=== PATIENT | male | born 1945 | race Caucasian/White ===

== ENCOUNTER 2016-05-09 10:57 | Inpatient (IN) | payer MEDICARE ==
[~2016-05-09] VITALS: Ht 175.3 cm; Wt 85.1 kg
[~2016-05-09 10:57] MED LIST: /ADVA50050 INH; /ESOM40CA OR; /QUIN10TA OR; /TAMS4CA OR; /TIOT18INH INH; ACCU1TAB PO; ACCU1TAB2 PO; ACET-654 PO; ADVA230A INH; ASPI81CH PO; ATEN25TA OR; ATEN25TA PO; ATOR1TAB18 PO; CELE1CAP7 PO; CHAN1PAK11 PO; CIPR25SS OR; CIPR500T19 OR; COUM1TAB14 PO; COUM1TAB19 PO; DIAZ2TAB PO; EXCETAB81 PO; FLAG500T OR; FLOM5CAP PO; FURO40TA2 PO; LEVA750T PO; LOVE0.6I2 SC; NAPR375T OR; NEXI40CA PO; NICO1DIS2 TD; NICO21DI4 TD; NITR0.4S SL; NITR4TASL SL; OMNASPR2; PRED10TA PO; PRED20TA PO; PRED20TAB PO; PROA1AER INH; QUIN20TA7 PO; RANI300T PO; SALI0.653; SPIR1CAP INH; SPIR25TA2 PO; SPIR50TA2 PO; TAMS0.4C2 PO; TORS20TA2 PO; TRAM50TA2 PO; TUMS500C PO; TYLE325T5 PO; VENTAER IN; VENTAER INH; VITA100037 PO; VOLT1GEL24 TD; WARF-20 PO; WARF-60 PO; ZANT300T PO; celebrex PO
--- NOTE | 2016-05-09 12:15 | REP ---
SINGLE VIEW CHEST: AP portable view of the chest is performed and compared to a prior study of 02/01/2016. Diffuse interstitial fibrosis is stable. No definite superimposed acute infiltrate is seen. Heart is normal in size. There is some calcification and ectasia of the thoracic aorta. Pacemaker is unchanged. IMPRESSION: Chronic changes. No definite superimposed acute infiltrate. Signed by David Jameson MD 05/09/2016 05:21 P
[2016-05-09] MEDS ORDERED: IPRATROPIUM 0.5MG/ALBUTEROL 2.5MG INH SOL UD 3ML (DUONEB)(J7620) As Ordered ONE (12:28)
[2016-05-09] MEDS ORDERED: methylPREDNISolone INJ 125 MG/2 ML VIAL (J2930) As Ordered ONE (12:32)
[2016-05-09 12:41] LABS: BASO % 0.4 % (0.0-1.0); EOS # 0.1 K/mm3 (0.0-0.50); EOS % 1.1 % (0.0-3.0); LARGE UNSTAINED CELL # 0.2 K/mm3 (0.0-0.4); LARGE UNSTAINED CELL % 2.1 % (0.0-4.0); LYMPH # 1.4 K/mm3 (1.5-4.5); LYMPH % 12.9 % (24.0-44.0); MEAN CORPUSCULAR HEMOGLOBIN 28.8 pg (27.0-33.0); MEAN CORPUSCULAR VOLUME 87.4 fl (80.0-96.0); MONO # 0.8 K/mm3 (0.0-0.8); MONO % 6.8 % (0.0-5.0); NEUTROPHILS # 8.5 K/mm3 (1.8-7.7); NEUTROPHILS % 76.7 % (36.0-66.0); PLATELET COUNT, AUTOMATED 272 k/mm3 (150-450); RED CELL DISTRIBUTION WIDTH 14.2 % (11.5-14.5)
[2016-05-09 12:53] LABS: INR 2.07
[2016-05-09 13:01] LABS: ANION GAP 7 MEQ/L (8-16); BLOOD UREA NITROGEN 22 MG/DL (7-18); CALCIUM LEVEL 8.6 MG/DL (8.8-10.2); CARBON DIOXIDE LEVEL 36 MEQ/L (21-32); CHLORIDE LEVEL 96 MEQ/L (98-107); CREATININE FOR GFR 1.05 MG/DL (0.70-1.30); GLOMERULAR FILTRATION RATE > 60.0 (>42); GLUCOSE, FASTING 91 MG/DL (83-110); POTASSIUM SERUM 3.7 MEQ/L (3.5-5.1); SODIUM LEVEL 139 MEQ/L (136-145)
--- NOTE | 2016-05-09 13:44 | REP ---
PELVIS: AP view of the pelvis is performed. There is no evidence of acute fracture or dislocation. There appear to be mild degenerative changes at the hip joints. IMPRESSION: No evidence of fracture or dislocation. Signed by David Jameson MD 05/09/2016 05:22 P
--- NOTE | 2016-05-09 13:48 | REP ---
AP LUMBAR SPINE: AP view of the lumbar spine are performed. The patient refused the remaining portion of the lumbosacral spine series. Comparing to the prior study of 03/17/2013, there are diffuse degenerative changes. No gross acute fracture is seen. There is curvature toward the right. The posterior elements appear intact. IMPRESSION: No gross acute finding. Signed by David Jameson MD 05/09/2016 05:22 P
[2016-05-09] MEDS ORDERED: traMADol 50 MG TAB As Ordered ONE (13:50)
--- NOTE | 2016-05-09 14:29 | REP ---
BILATERAL LOWER EXTREMITY VENOUS DOPPLER: 05/09/2016 INDICATION: deformity and swelling. COMPARISON: Bilateral lower extremity venous Doppler 04/25/2016. RIGHT LOWER EXTREMITY VENOUS DOPPLER: TECHNIQUE: Color-flow Doppler spectral wave Doppler and woo-scale imaging used to evaluate the deep right lower extremity veins at common femoral superficial femoral popliteal venous levels. FINDINGS: The midportion of right superficial femoral vein is duplicated and paten. There is no evidence of deep venous thrombosis within the right lower extremity veins at the above-stated levels. There is normal response to augmentation of flow. Subcutaneous edema is seen overlying the popliteal fossa. IMPRESSION: No evidence of deep venous thrombosis in the right lower extremity LEFT LOWER EXTREMITY VENOUS DOPPLER: TECHNIQUE: Color-flow Doppler spectral wave and woo-scale imaging were used to evaluate the lower extremity vein, common femoral, superficial femoral, and popliteal venous levels. FINDINGS: There is normal compressibility of veins at the above-stated levels. There is normal response to augmentation of flow. The profunda femoris vein is also patent. There is subcutaneous edema overlying the popliteal fossa. IMPRESSION: No evidence of DVT in the left lower extremity. There is subcutaneous edema overlying the popliteal fossa. Signed by Danielle Sequeira MD 05/09/2016 10:03 P
[2016-05-09] MEDS ORDERED: ACETAMINOPHEN 325 MG TAB As Ordered ONE (14:30)
--- NOTE | 2016-05-09 15:23 | HPEPDOC ---
Medical History and Physical Date of Admission May 09, 2016 at 14:14 History and Physical ATTENDING: Dr. 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 He denies sputum, fever, or chills. He states he used sublingual nitroglycerin one or 2 days ago, he has difficulty recalling. He is a vague historian. He also states he fell off of his bed 3 or 4 days ago and landed on his hands and knees and since then he has been having low back pain. He states this is achy pain in his low back. He does not report radiation of pain down his legs. He has however had difficulty ambulating and required assistance to get out of the wheelchair in the emergency department. He denies numbness or tingling in the lower extremities. He does not report bowel or bladder incontinence. He states he cannot recall how he fell out off of his bed. He denies loss of consciousness, presyncope, dizziness or headache injury. Denies any fevers, chills, fatigue, LIM, palpitations, abdominal pain, N/V/D or changes in bowel or bladder habits. Upon presentation to the hospital the patient was found to have COPD exacerbation, thus the hospitalist team was consulted. PMHx: O2 and steroid-dependent COPD CHF CAD/history of [place] Murphy's esophagus BPH Cardiomyopathy Hypercholesterolemia Nonbacterial thrombotic endocarditis/vegetation of ICD lead PSHX: ICD placement Inguinal hernia repair Kidney stone removal SOCHX: Resides in: Lives alone in an apartment Tobacco use: Current smoker, history of one to one and half pack per day for the past 50 years ETOH: States he has not been drinking recently however previously 10 beers per month Illicit Drugs: Denies Recent travel: Denies Advanced directives: Denies ROS: As noted in HPI, otherwise 11pt ROS of systems reviewed and unremarkable PE: GEN: 71 yoM, appears stated age. Eyes are closed throughout exam. No acute distress. Alert and oriented x 3. Pleasant. HEENT: Normocephalic, atraumatic. Pupils are equal, round, and reactive to light. Extraocular movements are intact. No nystagmus appreciated. Sclera are nonicteric. Conjunctiva without injection. Nose midline. Nasal turbinates without bogginess. EACs both patent BL. TMs both visualized and woo with good cone of light, no bulging or erythema. No facial asymmetry. Moist mucous membranes. Pharynx pink and moist, no cobblestoning. Neck supple, trachea midline. No lymphadenopathy or thyromegaly appreciated. CHEST: Regular rate and rhythm, +S1, +S2 LUNGS: Decreased breath sounds bilaterally, expiratory wheezes noted, No rales/ rhonchi. Breathing appears symmetric. Patient is speaking in full sentences. ABD: Round, soft, non-tender, non-distended. +Bowel sounds throughout. No rebound or guarding. No costovertebral angle tenderness. EXT: Pulses 2+ bilaterally dorsalis pedis and radial. 2mm extremity edema appreciated to prox pretibial area. No TTP over LS spine area/PS muscles. SKIN: [place], dry, warm. No rashes. NEURO: Alert and oriented x 3. Cranial nerves III-XII are intact. No focal deficits appreciated. CXR: Chronic changes, no definite superimposed acute infiltrate XR lumbosacral spine no gross acute finding, AP view performed, patient refused remaining portion of spine series. XR pelvis no evidence of fracture or dislocation Ultrasound lower extremities. 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 He denies sputum, fever, or chills. He states he used sublingual nitroglycerin one or 2 days ago, he has difficulty recalling. He is a vague historian. He also states he fell off of his bed 3 or 4 days ago and landed on his hands and knees and since then he has been having low back pain. The patient will be admitted to PCU for at least 2midnights to Dr. La's service. Pt is discussed with Dr Moise. COPD exacerbation. Supplemental O2, nebulizer treatments, IV SoluMedrol. Sputum culture COPD. Continue outpatient regimen CHF. IV Lasix Mechanical fall/low back pain. Request MRI of lumbosacral spine. X-ray imaging incomplete. CAD/cardiomyopathy. CIP/troponin 3. Continue outpatient regimen including atenolol with hold parameters, statin, prn sublingual nitroglycerin. Thrombotic endocarditis/vegetation of ICD lead. Remains on Coumadin anticoagulation. INR is therapeutic at 2.07. Hyperlipidemia. Continue statin GERD. Continue PPI BPH. Continue Flomax DVT prophylaxis. Patient remains on Coumadin anticoagulation The patient is a full code Attending Note: I have independently examined this patient and all aspects of the exam and treatment decisions have been discussed with the resident. A member of the hospitalist staff will continue to follow this patient. Vital Signs 132/60 82 24 97.1 93% Laboratory Data Labs 24H Laboratory Tests 2 05/09/16 12:24: Anion Gap 7L, B-Type Natriuretic Peptide 12.8, White Blood Count 11.0H, Red Blood Count 4.13L, Hemoglobin 11.9L, Hematocrit 36.1L, Mean Corpuscular Volume 87.4, Mean Corpuscular Hemoglobin 28.8, Mean Corpuscular Hemoglobin Concent 33.0 , Red Cell Distribution Width 14.2, Platelet Count 272, Neutrophils (%) (Auto) 76.7H, Lymphocytes (%) (Auto) 12.9L, Monocytes (%) (Auto) 6.8H, Eosinophils (%) (Auto) 1.1, Basophils (%) (Auto) 0.4, Neutrophils # (Auto) 8.5H, Lymphocytes # ( Auto) 1.4L, Monocytes # (Auto) 0.8, Eosinophils # (Auto) 0.1, Basophils # (Auto ) 0.0, Blood Urea Nitrogen 22H, Creatinine 1.05, Sodium Level 139, Potassium Level 3.7, Chloride Level 96L, Carbon Dioxide Level 36H, Calcium Level 8.6L, Total Creatine Kinase 122, Creatine Kinase MB 1.4, Creatine Kinase MB Relative Index 1.14, Glomerular Filtration Rate > 60.0, Large Unclassified Cells # 0.2, Large Unclassified Cells % 2.1, Prothromb Time International Ratio 2.07, Prothrombin Time 23.4H, Troponin I < 0.02 CBC/BMP Laboratory Tests 05/09/16 12:24 Calcium Level 8.6 L, Total Creatine Kinase 122, Red Blood Count 4.13 L, Mean Corpuscular Volume 87.4, Mean Corpuscular Hemoglobin 28.8, Mean Corpuscular Hemoglobin Concent 33.0, Red Cell Distribution Width 14.2, Neutrophils (%) (Auto ) 76.7 H, Lymphocytes (%) (Auto) 12.9 L, Monocytes (%) (Auto) 6.8 H, Eosinophils (%) (Auto) 1.1, Basophils (%) (Auto) 0.4, Neutrophils # (Auto) 8.5 H , Lymphocytes # (Auto) 1.4 L, Monocytes # (Auto) 0.8, Eosinophils # (Auto) 0.1, Basophils # (Auto) 0.0 Microbiology Microbiology 05/09/16 Influenza Virus Type A Antigen - Final, Complete 05/09/16 Influenza Virus Type B Antigen - Final, Complete Home Medications Scheduled Atenolol (Atenolol) 25 Mg Tab 25 MG PO DAILY Atorvastatin Calcium (Atorvastatin Calcium) 80 Mg Tab 80 MG PO QHS Esomeprazole Magnesium Trihydr (Nexium) 40 Mg Cap 40 MG PO BID Nitroglycerin (Nitrostat) 0.4 Mg Subl 0.4 MG SL NITRO Prednisone (Prednisone) 10 Mg Tab 10 MG PO DAILY Ranitidine HCl (Ranitidine HCl) 300 Mg Tab 1 TAB PO QHS Salmeterol/Fluticasone (Advair Hfa 230-21 Mcg/Act) 1 Aer Aer 2 PUFF INH BID Spironolactone (Spironolactone) 50 Mg Tab 50 MG PO DAILY Tamsulosin Hydrochloride (Flomax) 0.4 Mg Cap 0.4 MG PO DAILY Tiotropium [place] Monohydrate (Spiriva Handihaler) 18 Mcg Cap 1 INHALATION INH DAILY Torsemide (Torsemide) 20 Mg Tab 20 MG PO BID Warfarin Sod (Warfarin Sodium) 4 Mg Tab 4 MG PO 4XWK SATURDAY, SATURDAY, SATURDAY, SATURDAY Warfarin Sod (Warfarin Sodium) 6 Mg Tab 6 MG PO 3XW SATURDAY, SATURDAY, SATURDAY Scheduled PRN (Saline Nasal [place]) 0.65 % Spr 2 SPRAYS NA QID PRN PRN NASAL DRYNESS (Omnaris) 50 Mcg/Act Spr 50 MCG NA DAILY PRN PRN ALLERGIES Acetaminophen (Acetaminophen) 325 Mg Tab 650 MG PO Q4H PRN PRN PAIN Albuterol Sulfate (Proair Hfa) 108 Mcg/Act Aer 2 PUFFS INH Q4H PRN PRN SHORTNESS OF BREATH Calcium Carbonate (Tums) 500 Mg Chw 1,000 MG PO PC PRN PRN INDIGESTION Tramadol HCl (Tramadol HCl) 50 Mg Tab 50 MG PO BID PRN PRN PAIN Allergies Coded Allergies: Hydrocodone (Unverified Allergy, Severe, anaphylaxis, 10/13/15) Latex (Verified Allergy, Unknown, 08/05/12) Shellfish Allergy (Verified Allergy, Unknown, 08/05/12) Sulfa Drugs (Verified Allergy, Unknown, 08/05/12) Sulfa Drugs Cross Reactors (Verified Allergy, Unknown, 08/05/12) Gertrudis Lam May 09, 2016 15:23 MICHELET MOISE DO May 09, 2016 18:38
[2016-05-09] MEDS ORDERED: FAMOTIDINE 20 MG TAB PO PRN (15:30)
[2016-05-09] MEDS ORDERED: SODIUM CHLORIDE NASAL 0.65% SPRAY BTL (OCEAN) PRN (15:30)
[2016-05-09] MEDS ORDERED: NITROGLYCERIN 0.4 MG SUBL TABLET SL PRN (15:30)
[2016-05-09] MEDS ORDERED: CALCIUM CARBONATE 500 MG CHEW U/D PO PRN (15:30)
[2016-05-09] MEDS ORDERED: IPRATROPIUM 0.5MG/ALBUTEROL 2.5MG INH SOL UD 3ML (DUONEB)(J7620) NEB PRN (15:45)
--- NOTE | 2016-05-09 15:50 | EDDOCDS ---
Physician Documentation [facility] Name: Davion Murphy Age: 71 yrs Sex: Male : 1945 Arrival Date: 05/09/2016 Time: 10:57 Bed 20 Private MD: Moe Archer MD Disposition: 05/09/16 14:12 Hospitalization ordered by Cornelio Tirado for Inpatient Admission. Preliminary diagnosis is Chronic obstructive pulmonary disease with (acute) exacerbation. - Bed requested for 4 [place]. - Status is Inpatient Admission. mb9 - Condition is Stable. - Problem is new. - Symptoms are unchanged. Historical: - Allergies: Vicodin (Anaphylaxis); SULFA (SULFONAMIDES) (Anaphylaxis); SHELLFISH (Anaphylaxis); Latex (Rash); - Home Meds: 1. Oxygen 2.5 l prn Unknown daily (Last dose: 05/09/2016 11:11) 2. Flomax 0.4 mg Oral cp24 once daily (Last dose: 05/08/2016) 3. atenolol 25 mg Oral tab 1 tab once daily (Last dose: 05/08/2016) 4. Lipitor 80 mg Oral tab 1 tab once daily (Last dose: 05/08/2016) 5. nitroglycerin 0.4 mg SL subl 1 tab every 5 minutes pt reports using medication 4 to 5 days ago. x 3, as needed for chest pain (Last dose: Unknown) 6. spironolactone 50 mg Oral tab 1 tab once daily (Last dose: 05/08/2016) 7. tramadol 50 mg Oral tab 1 tab every 12 hours (Last dose: 05/08/2016) 8. warfarin 5 mg Oral tab 1 tab once daily 5 days a week (Last dose: 05/08/2016) 9. warfarin 2 mg Oral tab 1 tab once daily saturday and saturdays (Last dose: Unknown) 10. acetaminophen 325 mg Oral tab 2 tabs every 6 hours (Last dose: Unknown) 11. Nexium 40 mg Oral cpDR 1 cap 2 times per day (Last dose: 05/08/2016) 12. prednisone 10 mg Oral tab 1.5 tab once daily (Last dose: 05/08/2016) 13. torsemide 20 mg oral tab 1 tab twice a day (Last dose: 05/08/2016) 14. omnaris 50 mcg 2 puff daily (Last dose: 05/08/2016) 15. Advair HFA 230-21 mcg/actuation inhalation HFAA 2 puffs 2 times per day (Last dose: 05/08/2016) 16. ProAir HFA 90 mcg/actuation inhalation HFAA 2 puffs every 4 hours (Last dose: 05/08/2016) 17. saline nasal spray 0.65% 2 spray as needed (Last dose: Unknown) 18. Spiriva with HandiHaler 18 mcg Inhl CpDv 1 cap once daily (Last dose: Unknown) - PMHx: Vegetation of ICD lead; Nonbacterial thrombotic endocarditis; Myocardial infarction; Kidney stones; Hypertension; Hypercholesterolemia; Diverticulitis; COPD; Chronic Low Back Pain; CHF; Cardiomyopathy; CAD; BPH; Murphy's Esophagus; stated "clot" on "leads"; - PSHx: ICD placement; Kidney stone removal; Inguinal hernia; - Social history: Smoking status: Patient uses tobacco products, light tobacco smoker. Patient/guardian denies using alcohol, street drugs, No barriers to communication noted, The patient speaks fluent Japanese, Speaks appropriately for age. - Family history: No immediate family members are acutely ill. - : The pt / caregiver states he / she is on anticoagulants: coumadin. Home medication list is obtained from the patient. - Exposure Risk Screening:: None identified. Vital Signs: 05/09 10:59 BP 106 / 60; Pulse 78; Resp 24 S; Temp 97.1; Pulse Ox 94% on R/A; Weight 81.65 kg / dd6 180.01 lbs (R); Height 5 ft. 9 in. (175.26 cm) (R); 11:13 BP 133 / 71 (auto/); mb9 11:15 Pulse 84 MON; Pulse Ox 92% on 4 lpm NC; mb9 11:19 BP 123 / 58 (auto/); mb9 11:20 Pulse 84 MON; Pulse Ox 93% on 4 lpm NC; mb9 11:34 BP 123 / 59 (auto/); mb9 11:35 Pulse 78 MON; Pulse Ox 93% on 4 lpm NC; mb9 12:49 BP 120 / 62 (auto/); mb9 12:50 Pulse 74 MON; Pulse Ox 99% on 4 lpm NC; mb9 13:04 BP 132 / 60 (auto/); mb9 13:05 Pulse 82 MON; Pulse Ox 93% on 4 lpm NC; mb9 13:44 BP 141 / 69 (auto/); mb9 13:45 Pulse 72 MON; Pulse Ox 98% on 4 lpm NC; mb9 13:59 BP 129 / 76 (auto/); mb9 13:59 Pulse 84 MON; Pulse Ox 89% on 4 lpm NC; mb9 14:14 BP 128 / 59 (auto/); mb9 14:14 Pulse 84 MON; Pulse Ox 88% on 4 lpm NC; mb9 14:29 BP 130 / 61 (auto/); mb9 14:29 Pulse 78 MON; Pulse Ox 90% on 4 lpm NC; mb9 14:43 Pulse 82 MON; mb9 14:44 BP 123 / 60 (auto/); mb9 14:54 BP 112 / 53 (auto/); mb9 14:57 BP 112 / 53 LA Supine (auto/reg); Pulse 78 MON; Resp 21; Temp 96.8; Pulse Ox 94% on 4 mb9 lpm NC; Pain 3/10; 15:28 Pain 2/10; mb9 15:28 Pain 2/10; mb9 10:59 Body Mass Index 26.58 (81.65 kg, 175.26 cm) dd6 MDM: 11:06 Tower Excavator Operator/Pulse Ox/q 30 min VS ordered. sd1 11:06 IV Saline Lock ordered. sd1 11:06 Rhythm Strip to chart ordered. sd1 11:06 Undress patient appropriately for examination ordered. sd1 11:06 ECG WITH READING ER PHYS+CARDIAG ordered. EDMS 11:07 portable chest Ordered. EDMS 11:07 B-Type Natiuretic Peptide Ordered. EDMS 11:07 Basic Metabolic Profile Ordered. EDMS 11:07 CBC with Diff Ordered. EDMS 11:07 Cardiac Injury Profile Ordered. EDMS 11:07 Prothrombin Time Profile\\E\\INR Ordered. EDMS 11:07 Troponin Ordered. EDMS 12:00 [facility] Payment Agreement was scanned into [employer] and attached to record. mm15 12:17 Albuterol-Ipratropium 1 neb Nebulizer every 20 minutes x3 ordered. br1 12:17 Solu-MEDROL 125 mg IVP once ordered. br1 12:17 Call Respiratory ordered. br1 12:19 Spine. Lumbosacral, Complete Ordered. EDMS 12:19 Pelvis Ordered. EDMS 12:19 Ultrasound Bilateral LE R/O DVT Ordered. EDMS 12:23 Call Respiratory complete. jrd 12:25 -Influenza A&B Rapid Antigen - Nose Ordered. EDMS 12:34 Financial registration complete. mm15 12:38 Solu-MEDROL 125 mg IVP once ordered. mb9 13:07 Basic Metabolic Profile Reviewed. br1 13:07 CBC with Diff Reviewed. br1 13:07 Prothrombin Time Profile\\E\\INR Reviewed. br1 13:07 Cardiac Injury Profile Reviewed. br1 13:07 Troponin Reviewed. br1 13:07 portable chest Reviewed. br1 13:08 B-Type Natiuretic Peptide Reviewed. br1 13:08 -Influenza A&B Rapid Antigen - Nose Reviewed. br1 13:22 traMADol 50 mg PO once; prn ordered. br1 13:56 Misc. Nursing Order ordered. br1 13:58 BED REQUEST+ADM ordered. EDMS 14:19 Admission / Observation Status ordered. EDMS 14:21 Acetaminophen Tablet 650 mg PO once ordered. br1 15:35 LOW FAT LOW CHOLESTEROL DIET ordered. EDMS 15:36 MRI Spine, L.S. without con Ordered. EDMS 15:38 SPUTUM CULTURE AND GRAM STAIN Ordered. EDMS 15:39 CARDIAC MARKER PANEL Ordered. EDMS Administered Medications: 12:30 Drug: Albuterol-Ipratropium 1 neb [ipratropium-albuterol 0.5 mg-3 mg(2.5 mg base)/3 mL kt1 nebulization soln (1 neb)] Route: Nebulizer; 12:40 Follow up: Response: Nebulizer completed kt1 12:38 Drug: Solu-MEDROL 125 mg [Solu-Medrol 500 mg intravenous solution (125 mg)] Route: IVP; mb9 Site: right antecubital; 12:44 Drug: Albuterol-Ipratropium 1 neb [ipratropium-albuterol 0.5 mg-3 mg(2.5 mg base)/3 mL kt1 nebulization soln (1 neb)] Route: Nebulizer; 12:49 Follow up: Response: Nebulizer completed kt1 12:56 Follow up: Response: Nebulizer completed kt1 13:00 Drug: Albuterol-Ipratropium 1 neb [ipratropium-albuterol 0.5 mg-3 mg(2.5 mg base)/3 mL kt1 nebulization soln (1 neb)] Route: Nebulizer; 14:05 Drug: traMADol 50 mg [tramadol 50 mg tablet (1 tabs)] Route: PO; mb9 15:28 Follow up: Pain 2/10 Adult; Response: Confirmed pt not driving.; Pain is decreased mb9 14:42 Drug: Acetaminophen 650 mg [acetaminophen 325 mg tablet (2 tabs)] Route: PO; mb9 15:28 Follow up: Pain 2/10 Adult; Response: Pain is decreased mb9 Signatures: Dispatcher [employer] EDLaurence Kruger MD MD sd1 Soumya Ace, Laboratory Scientist Unit lbd Joel Jha MD MD br1 Julia Beltrán, RN RN ttb Mary France mm15 Moe Giles, PLASTER BLOCK LAYER PLASTER BLOCK LAYER Thomas Horne RN RN mb9 Korina Ng kt1 The chart was reviewed and I authenticate all verbal orders and agree with the evaluation and treatment provided.Attachments: 12:00 [facility] Payment Agreement mm15 MTDD
--- NOTE | 2016-05-09 15:50 | EDDOCDS ---
Nurse's Notes [facility] Name: Davion Murphy Age: 71 yrs Sex: Male : 1945 Arrival Date: 05/09/2016 Time: 10:57 Bed 20 Private MD: Moe Archer MD Diagnosis: Chronic obstructive pulmonary disease with (acute) exacerbation Presentation: 05/09 11:00 Red Flag criteria, patient assessed and taken directly to a bed. ttb 11:07 Presenting complaint: Patient states: back and chest pain started 2 days ago. DC'd from [facility] on 05/06/16 -- pt fell out of bed when he got home....back pain. Pt unable to get out of WC wihtout assist. Aspirin was not taken prior to arrival. Adult Sepsis Screening: The patient does not have new or worsening altered mentation. Patient has a respiratory rate of greater than or equal to 22 (1 point). Systolic blood pressure is greater than 100. Patient has a qSOFA score of 0- Negative Sepsis Screen. Suicide/Homicide risk assessment- the patient denies having any suicidal and/or homicidal ideations and does not present with any other emotional, behavioral or mental health complaints. Status: Patient is not a adult services librarian or dependent. Transition of care: patient was not received from another setting of care. 11:07 Acuity: BENITO Level 3 ttb 11:07 Method Of Arrival: Walkin/Carried/Asstd ttb Triage Assessment: 11:16 General: Appears ill, obese, uncomfortable, well nourished, Behavior is appropriate for ttb age, cooperative, pleasant. Pain: Location: chest 10/10. Neurological: Level of Consciousness is awake, alert, Oriented to person, place, time, Weakness Speech is normal, Facial symmetry appears normal. Cardiovascular: Chest pain is described as Pain is 10 out of 10 on a pain scale. radiates from lower abd to chest episodes are continuous began 2-3 days ago. Respiratory: Airway is patent Respiratory effort is even, shallow, Respiratory pattern is regular, tachypnea Reports shortness of breath at rest on exertion the patient has moderate shortness of breath. Derm: Skin is normal. Injury Description: No known injury. pt states he fell multiple times. Historical: - Allergies: Vicodin (Anaphylaxis); SULFA (SULFONAMIDES) (Anaphylaxis); SHELLFISH (Anaphylaxis); Latex (Rash); - Home Meds: 1. Oxygen 2.5 l prn Unknown daily (Last dose: 05/09/2016 11:11) 2. Flomax 0.4 mg Oral cp24 once daily (Last dose: 05/08/2016) 3. atenolol 25 mg Oral tab 1 tab once daily (Last dose: 05/08/2016) 4. Lipitor 80 mg Oral tab 1 tab once daily (Last dose: 05/08/2016) 5. nitroglycerin 0.4 mg SL subl 1 tab every 5 minutes pt reports using medication 4 to 5 days ago. x 3, as needed for chest pain (Last dose: Unknown) 6. spironolactone 50 mg Oral tab 1 tab once daily (Last dose: 05/08/2016) 7. tramadol 50 mg Oral tab 1 tab every 12 hours (Last dose: 05/08/2016) 8. warfarin 5 mg Oral tab 1 tab once daily 5 days a week (Last dose: 05/08/2016) 9. warfarin 2 mg Oral tab 1 tab once daily saturday and saturdays (Last dose: Unknown) 10. acetaminophen 325 mg Oral tab 2 tabs every 6 hours (Last dose: Unknown) 11. Nexium 40 mg Oral cpDR 1 cap 2 times per day (Last dose: 05/08/2016) 12. prednisone 10 mg Oral tab 1.5 tab once daily (Last dose: 05/08/2016) 13. torsemide 20 mg oral tab 1 tab twice a day (Last dose: 05/08/2016) 14. omnaris 50 mcg 2 puff daily (Last dose: 05/08/2016) 15. Advair HFA 230-21 mcg/actuation inhalation HFAA 2 puffs 2 times per day (Last dose: 05/08/2016) 16. ProAir HFA 90 mcg/actuation inhalation HFAA 2 puffs every 4 hours (Last dose: 05/08/2016) 17. saline nasal spray 0.65% 2 spray as needed (Last dose: Unknown) 18. Spiriva with HandiHaler 18 mcg Inhl CpDv 1 cap once daily (Last dose: Unknown) - PMHx: Vegetation of ICD lead; Nonbacterial thrombotic endocarditis; Myocardial infarction; Kidney stones; Hypertension; Hypercholesterolemia; Diverticulitis; COPD; Chronic Low Back Pain; CHF; Cardiomyopathy; CAD; BPH; Murphy's Esophagus; stated "clot" on "leads"; - PSHx: ICD placement; Kidney stone removal; Inguinal hernia; - Social history: Smoking status: Patient uses tobacco products, light tobacco smoker. Patient/guardian denies using alcohol, street drugs, No barriers to communication noted, The patient speaks fluent Sinhala, Speaks appropriately for age. - Family history: No immediate family members are acutely ill. - : The pt / caregiver states he / she is on anticoagulants: coumadin. Home medication list is obtained from the patient. - Exposure Risk Screening:: None identified. Screenin:25 Screening information is obtained from friend/pt/prior records. Fall risk: At risk due ttb to apparent cognitive impairment, gait disturbance, immobility, injury, prior history of falls, The following interventions are performed due to a positive Fall Risk Screen: Fall Risk is added to Special Handling on the patient Summary Screen. A Fall Risk Bracelet was applied to the patient. Side Rails are placed in the up position. A Call Freeman is given with instruction to call for help when getting out of bed. Assistance ADL's: Requires assistance with meal preparation, this assistance is provided by bathing, assistance is provided by Other friend : catina, dressing, assistance is provided by toileting, assistance is provided by ambulation, assistance is provided by housework, assistance is provided by medication administration, assistance is provided by. Advance Directives: Currently, there is a health care proxy, Catina Cerrato : friend : [phone]. There is an active DNR order but there is no copy available at this time. 14:57 Abuse/DV Screen: The patient / caregiver reports he/she is: not in a situation that mb9 causes fear, pain or injury. Nutritional screening: No deficits noted. home support is adequate. Assessment: 12:08 General: Appears unkempt, Behavior is appropriate for age, cooperative. Neurological: mb9 Level of Consciousness is awake, alert, Oriented to person, place, time. Cardiovascular: Rhythm is sinus rhythm with PACs. Cardiovascular: Edema is 3+ to left ankle, left foot, right ankle and right foot. Respiratory: Airway is patent Respiratory effort is even, labored, Respiratory pattern is regular, symmetrical, Breath sounds are diminished bilaterally. Breath sounds with wheezes bilaterally. 13:32 General: pt in ultrasound. mb9 13:44 Reassessment: Patient states symptoms have not improved. General: Appears. General: mb9 Appears in no apparent distress, Behavior is appropriate for age, cooperative. Pain: Location: low back area Pain currently is 8 out of 10 on a pain scale. Respiratory: Airway is patent Respiratory effort is even, unlabored. 14:57 Reassessment: Patient states symptoms have improved. Adult Sepsis Screening: The mb9 patient does not have new or worsening altered mentation. Patient's respiratory rate is less than 22. Systolic blood pressure is greater than 100. Patient has a qSOFA score of 0- Negative Sepsis Screen. General: Appears unkempt, Behavior is appropriate for age, cooperative. Pain: Location: low back area Pain currently is 2 out of 10 on a pain scale. Respiratory: Airway is patent Respiratory effort is even, unlabored, Breath sounds with wheezes in right posterior upper lobe, right posterior middle lobe and right posterior lower lobe. Vital Signs: 10:59 BP 106 / 60; Pulse 78; Resp 24 S; Temp 97.1; Pulse Ox 94% on R/A; Weight 81.65 kg (R); dd6 Height 5 ft. 9 in. (175.26 cm) (R); 11:13 BP 133 / 71 (auto/); mb9 11:15 Pulse 84 MON; Pulse Ox 92% on 4 lpm NC; mb9 11:19 BP 123 / 58 (auto/); mb9 11:20 Pulse 84 MON; Pulse Ox 93% on 4 lpm NC; mb9 11:34 BP 123 / 59 (auto/); mb9 11:35 Pulse 78 MON; Pulse Ox 93% on 4 lpm NC; mb9 12:49 BP 120 / 62 (auto/); mb9 12:50 Pulse 74 MON; Pulse Ox 99% on 4 lpm NC; mb9 13:04 BP 132 / 60 (auto/); mb9 13:05 Pulse 82 MON; Pulse Ox 93% on 4 lpm NC; mb9 13:44 BP 141 / 69 (auto/); mb9 13:45 Pulse 72 MON; Pulse Ox 98% on 4 lpm NC; mb9 13:59 BP 129 / 76 (auto/); mb9 13:59 Pulse 84 MON; Pulse Ox 89% on 4 lpm NC; mb9 14:14 BP 128 / 59 (auto/); mb9 14:14 Pulse 84 MON; Pulse Ox 88% on 4 lpm NC; mb9 14:29 BP 130 / 61 (auto/); mb9 14:29 Pulse 78 MON; Pulse Ox 90% on 4 lpm NC; mb9 14:43 Pulse 82 MON; mb9 14:44 BP 123 / 60 (auto/); mb9 14:54 BP 112 / 53 (auto/); mb9 14:57 BP 112 / 53 LA Supine (auto/reg); Pulse 78 MON; Resp 21; Temp 96.8; Pulse Ox 94% on 4 mb9 lpm NC; Pain 3/10; 15:28 Pain 2/10; mb9 15:28 Pain 2/10; mb9 10:59 Body Mass Index 26.58 (81.65 kg, 175.26 cm) dd6 Vitals: 10:59 Log In Time: May 09, 2016 at 10:57. RN notified that patient meets Red Flag dd6 criteria. ED Course: 10:58 Patient visited by Naresh Delacruz PCA. dd6 10:58 Patient moved to Waiting dd6 10:59 Moe Archer is Private Physician. dd6 11:04 Patient moved to PR2 / 26 jrd 11:05 Patient moved to 20 mlb1 11:09 Triage Initiated ttb 11:14 EKG done. (by ED staff). Reviewed by Laurence Rodgers MD. jrd 11:19 Patient visited by Moe Giles PCA. jrd 11:21 Patient visited by Julia Beltrán RN. ttb 11:25 monitor tech on. Pulse ox on. NIBP on. ttb 11:27 Patient visited by Julia Beltrán RN. ttb 11:55 Patient visited by Michael Seals PCA. jlf 12:00 [facility] [place] Payment Agreement was scanned into [employer] and attached to record. mm15 12:05 Joel Jha MD is Attending Physician. br1 12:16 Patient visited by Joel Jha MD. br1 12:27 Troponin Sent. mb9 12:27 Prothrombin Time Profile\\E\\INR Sent. mb9 12:27 Cardiac Injury Profile Sent. mb9 12:27 CBC with Diff Sent. mb9 12:27 Basic Metabolic Profile Sent. mb9 12:27 B-Type Natiuretic Peptide Sent. mb9 12:37 portable chest Returned. EDMS 12:38 -Influenza A&B Rapid Antigen - Nose Sent. mb9 12:39 Inserted saline lock: 18 gauge in right antecubital area and blood collected. The mb9 patient tolerated the procedure well. 12:41 Patient moved to Ultrasound hgl 12:43 Patient moved to 20 hgl 12:48 Patient visited by Dorian Mendes. jml1 13:18 Patient moved to Ultrasound hgl 13:37 Patient moved to 20 hgl 13:49 Patient visited by Thomas Biswas RN. mb9 14:08 Pelvis Returned. EDMS 14:08 Spine. Lumbosacral, Complete Returned. EDMS 14:12 Cornelio Tirado DO is Hospitalizing Provider. br1 14:56 Ultrasound Bilateral LE R/O DVT Returned. EDMS 14:57 The patient / caregiver is instructed regarding the plan of care and ED course. mb9 14:57 No procedures done that require assistance. mb9 Administered Medications: 12:30 Drug: Albuterol-Ipratropium 1 neb [ipratropium-albuterol 0.5 mg-3 mg(2.5 mg base)/3 mL kt1 nebulization soln (1 neb)] Route: Nebulizer; 12:40 Follow up: Response: Nebulizer completed kt1 12:38 Drug: Solu-MEDROL 125 mg [Solu-Medrol 500 mg intravenous solution (125 mg)] Route: IVP; mb9 Site: right antecubital; 12:44 Drug: Albuterol-Ipratropium 1 neb [ipratropium-albuterol 0.5 mg-3 mg(2.5 mg base)/3 mL kt1 nebulization soln (1 neb)] Route: Nebulizer; 12:49 Follow up: Response: Nebulizer completed kt1 12:56 Follow up: Response: Nebulizer completed kt1 13:00 Drug: Albuterol-Ipratropium 1 neb [ipratropium-albuterol 0.5 mg-3 mg(2.5 mg base)/3 mL kt1 nebulization soln (1 neb)] Route: Nebulizer; 14:05 Drug: traMADol 50 mg [tramadol 50 mg tablet (1 tabs)] Route: PO; mb9 15:28 Follow up: Pain 2/10 Adult; Response: Confirmed pt not driving.; Pain is decreased mb9 14:42 Drug: Acetaminophen 650 mg [acetaminophen 325 mg tablet (2 tabs)] Route: PO; mb9 15:28 Follow up: Pain 2/10 Adult; Response: Pain is decreased mb9 RT: 12:34 Initial Med Neb Given as ordered Patient was instructed and evaluated on procedure. kt1 12:44 Subsequent Med Neb Given as ordered Patient tolerated procedure well without adverse kt1 effect. 12:55 Subsequent Med Neb Given as ordered. kt1 Order Results: Lab Order: B-Type Natiuretic Peptide; SPEC'M 05/09/16 12:24 Test: BRAIN NATRIURETIC PEPTIDE; Value: 12.8; Range: <100; Units: PG/ML; Status: F Lab Order: Basic Metabolic Profile; SPEC'M 05/09/16 12:24 Test: GLUCOSE, FASTING; Value: 91; Range: 83-110; Units: MG/DL; Status: F Test: BLOOD UREA NITROGEN; Value: 22; Range: 7-18; Abnormal: Above high normal; Units: MG/DL; Status: F Test: CREATININE FOR GFR; Value: 1.05; Range: 0.70-1.30; Units: MG/DL; Status: F Test: GLOMERULAR FILTRATION RATE; Value: > 60.0; Range: >42; Status: F Test: SODIUM LEVEL; Value: 139; Range: 136-145; Units: MEQ/L; Status: F Test: POTASSIUM SERUM; Value: 3.7; Range: 3.5-5.1; Units: MEQ/L; Status: F Test: CHLORIDE LEVEL; Value: 96; Range: 98-107; Abnormal: Below low normal; Units: MEQ/L; Status: F Test: CARBON DIOXIDE LEVEL; Value: 36; Range: 21-32; Abnormal: Above high normal; Units: MEQ/L; Status: F Test: ANION GAP; Value: 7; Range: 8-16; Abnormal: Below low normal; Units: MEQ/L; Status: F Test: CALCIUM LEVEL; Value: 8.6; Range: 8.8-10.2; Abnormal: Below low normal; Units: MG/DL; Status: F Test Note: ; Units are mL/min/1.73 m2 Chronic Kidney Disease Staging per NKF: Stage I & II GFR >=60 Normal to Mildly Decreased Stage III GFR 30-59 Moderately Decreased Stage IV GFR 15-29 Severely Decreased Stage V GFR <15 Very Little GFR Left ESRD GFR <15 on [employer] Lab Order: CBC with Diff; CLARISSE 05/09/16 12:24 Test: WHITE BLOOD COUNT; Value: 11.0; Range: 4.0-10.0; Abnormal: Above high normal; Units: K/mm3; Status: F Test: RED BLOOD COUNT; Value: 4.13; Range: 4.30-6.10; Abnormal: Below low normal; Units: M/mm3; Status: F Test: HEMOGLOBIN; Value: 11.9; Range: 14.0-18.0; Abnormal: Below low normal; Units: g/dl; Status: F Test: HEMATOCRIT; Value: 36.1; Range: 42.0-52.0; Abnormal: Below low normal; Units: %; Status: F Test: MEAN CORPUSCULAR VOLUME; Value: 87.4; Range: 80.0-96.0; Units: fl; Status: F Test: MEAN CORPUSCULAR HEMOGLOBIN; Value: 28.8; Range: 27.0-33.0; Units: pg; Status: F Test: MEAN CORPUSCULAR HGB CONC; Value: 33.0; Range: 32.0-36.5; Units: g/dl; Status: F Test: RED CELL DISTRIBUTION WIDTH; Value: 14.2; Range: 11.5-14.5; Units: %; Status: F Test: PLATELET COUNT, AUTOMATED; Value: 272; Range: 150-450; Units: k/mm3; Status: F Test: NEUTROPHILS %; Value: 76.7; Range: 36.0-66.0; Abnormal: Above high normal; Units: %; Status: F Test: LYMPH %; Value: 12.9; Range: 24.0-44.0; Abnormal: Below low normal; Units: %; Status: F Test: MONO %; Value: 6.8; Range: 0.0-5.0; Abnormal: Above high normal; Units: %; Status: F Test: EOS %; Value: 1.1; Range: 0.0-3.0; Units: %; Status: F Test: BASO %; Value: 0.4; Range: 0.0-1.0; Units: %; Status: F Test: LARGE UNSTAINED CELL %; Value: 2.1; Range: 0.0-4.0; Units: %; Status: F Test: NEUTROPHILS #; Value: 8.5; Range: 1.8-7.7; Abnormal: Above high normal; Units: K/mm3; Status: F Test: LYMPH #; Value: 1.4; Range: 1.5-4.5; Abnormal: Below low normal; Units: K/mm3; Status: F Test: MONO #; Value: 0.8; Range: 0.0-0.8; Units: K/mm3; Status: F Test: EOS #; Value: 0.1; Range: 0.0-0.50; Units: K/mm3; Status: F Test: BASO #; Value: 0.0; Range: 0.0-0.2; Units: K/mm3; Status: F Test: LARGE UNSTAINED CELL #; Value: 0.2; Range: 0.0-0.4; Units: K/mm3; Status: F Lab Order: Cardiac Injury Profile; SPEC'M 05/09/16 12:24 Test: CPK CREATINE PHOSPHOKINASE; Value: 122; Range: 39-308; Units: U/L; Status: F Test: CK-MB VALUE MASS; Value: 1.4; Range: 0.0-3.6; Units: NG/ML; Status: F Test: MB/CK RELATIVE INDEX; Value: 1.14; Range: < OR =4; Status: F Test Note: ; DIAGNOSIS CRITERIA MMB ng/ml Relative Index (RI) NON-AMI < or = 5 N/A GRIFFITHS ZONE > 5 < or = 4 AMI > 5 > 4 Lab Order: Prothrombin Time Profile\\E\\INR; SPEC'M 05/09/16 12:24 Test: PROTHROMBIN TIME; Value: 23.4; Range: 12.3-14.5; Abnormal: Above high normal; Units: SECONDS; Status: F Test: INR; Value: 2.07; Status: F Test Note: ; THERAPUTIC HUMAN INR VALUES INDICATIONS NORMAL RANGES PROPHYLAXIS/TREATMENT OF: VENOUS THROMBOSIS 2.0-3.0 PULMONARY EMBOLISM 2.0-3.0 PREVENTION OF SYSTEMIC EMBOLISM FROM: TISSUE HEART VALVES 2.0-3.0 ACUTE MYOCARDIAL INFARCTION 2.0-3.0 VALVULAR HEART DISEASE 2.0-3.0 ATRIAL FIBRILLATION 2.0-3.0 MECHANICAL VALVES(HIGH RISK) 2.5-3.5 RECURRENT MYOCARDIAL INFARCTION 2.5-3.5 Lab Order: Troponin; SPEC'M 05/09/16 12:24 Test: TROPONIN I; Value: < 0.02; Range: < 0.10; Units: NG/ML; Status: F Test Note: ; Troponin I Reference Interval for Siemens [place]rington LOCI: 99th Percentile= 0.00-0.045 ng/ml Risk Stratification: <= 0.10 ng/ml Decreased Risk for Adverse Clinical Events. 0.10-1.50 ng/ml Increased Risk for Adverse Clinical Events. Evaluation of additional criterion and/or repeat testing in 2-6 hours is suggested to rule out myocardial damage. >= 1.50 ng/ml Indicative of Myocardial Injury. Lab Order: -Influenza A&B Rapid Antigen - Nose; SPEC'M 05/09/16 12:37 Test: INFLUENZA A RAPID SCR by ICA; Value: INFLUENZA A RESULTS NEGATIVE; Status: F Test: INFLUENZA A RAPID SCR by ICA; Value: Comments:; Status: F Test: INFLUENZA B RAPID SCR by ICA; Value: INFLUENZA B RESULTS NEGATIVE; Status: F Test Note: ; The Influenza test is a direct rapid immunoassay for the qualitative detection of Influenza viral antigen. Cell culture (Viral Culture) testing should be considered to confirm NEGATIVE results and to assist in detecting other viruses that can provide similar clinical symptoms. Please contact the lab within 24 hours ([phone] if confirmatory testing is desired. Radiology Order: portable chest Test: portable chest REASON FOR EXAMINATION: Chest Pain; ; SINGLE VIEW CHEST:; ; AP portable view of the chest is performed and compared to a prior study of; 02/01/2016.; ; Diffuse interstitial fibrosis is stable. No definite superimposed acute; infiltrate is seen. Heart is normal in size. There is some calcification and; ectasia of the thoracic aorta. Pacemaker is unchanged.; ; IMPRESSION:; Chronic changes. No definite superimposed acute infiltrate.; ; ; ; Unreviewed; Radiology Order: Spine. Lumbosacral, Complete Test: Spine. Lumbosacral, Complete REASON FOR EXAMINATION: Trauma; ; AP LUMBAR SPINE:; ; AP view of the lumbar spine are performed. The patient refused the remaining; portion of the lumbosacral spine series.; ; Comparing to the prior study of 03/17/2013, there are diffuse degenerative; changes. No gross acute fracture is seen. There is curvature toward the right.; The posterior elements appear intact.; ; IMPRESSION:; No gross acute finding.; ; ; ; Unreviewed; Radiology Order: Pelvis Test: Pelvis REASON FOR EXAMINATION: Trauma; ; PELVIS:; ; AP view of the pelvis is performed. There is no evidence of acute fracture or; dislocation. There appear to be mild degenerative changes at the hip joints.; ; IMPRESSION:; No evidence of fracture or dislocation.; ; ; ; Unreviewed; Radiology Order: Ultrasound Bilateral LE R/O DVT Test: Ultrasound Bilateral LE R/O DVT REASON FOR EXAMINATION: Deformity/Swelling; BILATERAL LOWER EXTREMITY VENOUS DOPPLER: 05/09/2016; ; INDICATION: deformity and swelling.; ; COMPARISON: Bilateral lower extremity venous Doppler 04/25/2016.; ; RIGHT LOWER EXTREMITY VENOUS DOPPLER:; ; TECHNIQUE: Color-flow Doppler spectral wave Doppler and griffiths-scale imaging used; to evaluate the deep right lower extremity veins at common femoral superficial; femoral popliteal venous levels.; ; FINDINGS: The midportion of right superficial femoral vein is duplicated and; paten. There is no evidence of deep venous thrombosis within the right lower; extremity veins at the above-stated levels. There is normal response to; augmentation of flow.; ; Subcutaneous edema is seen overlying the popliteal fossa.; ; IMPRESSION:; No evidence of deep venous thrombosis in the right lower extremity; ; LEFT LOWER EXTREMITY VENOUS DOPPLER:; ; TECHNIQUE: Color-flow Doppler spectral wave and griffiths-scale imaging were used to; evaluate the lower extremity vein, common femoral, superficial femoral, and; popliteal venous levels.; ; FINDINGS:; There is normal compressibility of veins at the above-stated levels. There is; normal response to augmentation of flow. The profunda femoris vein is also; patent.; ; There is subcutaneous edema overlying the popliteal fossa.; ; IMPRESSION:; No evidence of DVT in the left lower extremity.; There is subcutaneous edema overlying the popliteal fossa.; ; ; ; ; ; Unreviewed; Outcome: 14:12 Decision to Hospitalize by Provider. br1 14:57 Discharge Assessment: patient administered narcotics - yes. Patient was admitted to the [address] transferred to another facility. The following High Risk Discharge criteria are identified: None. Admitted to Med/Surg accompanied by tech. Condition: good Condition: stable Condition: improved. Ultrasound Study completed. Property :Personal belongings accompany Pt. 15:49 Patient left the ED. [facility] Signatures: Dispatcher [employer] EDMS Thomas Obrien, RN RN mlb1 Korina Ng kt1 Joel Jha MD MD br1 Naresh Delacruz, APPRENTICE [employer]EM[employer] THIRD STEP APPRENTICE [employer] THIRD STEP dd6 Dorian Mendes jml1 Mariann, Jaquan hunterl Julia Beltrán RN RN ttb Mary France mm15 Michael Seals, APPRENTICE [employer]EMAN THIRD STEP APPRENTICE LINEMAN THIRD STEP jlf Moe Giels, APPRENTICE LINEMAN THIRD STEP APPRENTICE LINEMAN THIRD STEP jrd Thomas Biswas,RN RN mb9 Corrections: (The following items were deleted from the chart) 11:19 11:18 EKG done. (by ED staff). Reviewed by Laurence dumont jrd 15:02 13:05 Pulse 82bpm; Monitor; Pulse Ox 93%; mb9 mb9 15:02 12:50 Pulse 74bpm; Monitor; Pulse Ox 99%; mb9 mb9 15:02 14:29 Pulse 78bpm; Monitor; Pulse Ox 90%; mb9 mb9 15:02 14:14 Pulse 84bpm; Monitor; Pulse Ox 88%; mb9 mb9 15:02 13:59 Pulse 84bpm; Monitor; Pulse Ox 89%; mb9 mb9 15:02 13:45 Pulse 72bpm; Monitor; Pulse Ox 98%; mb9 mb9 15:02 14:57 BP 112 / 53 Supine Auto L Arm Regular; Pulse 78bpm; MonitorResp 21bpm; Pulse Ox mb9 94%; Temp 96.8F; Pain 3/10; mb9 MTDD
[2016-05-09 16:00] VITALS: BP 117/63
[2016-05-09] MEDS: WARFARIN SOD 4 MG TAB PO SCH (17:25)
[2016-05-09] MEDS: ATENOLOL 25 MG TAB PO SCH (17:25)
[2016-05-09] MEDS: SPIRONOLACTONE 50 MG TAB PO SCH (17:25)
[2016-05-09] MEDS: FUROSEMIDE 40 MG/4 ML VIAL (J1940) IV SCH (17:25)
[2016-05-09] MEDS: methylPREDNISolone INJ 40 MG/1 ML VIAL (J2920) IV SCH (19:54)
[2016-05-09] MEDS: ADVAIR HFA 230/21 INHALER INH SCH (19:59)
[2016-05-09] MEDS: IPRATROPIUM 0.5MG/ALBUTEROL 2.5MG INH SOL UD 3ML (DUONEB)(J7620) NEB SCH (20:00)
[2016-05-09] MEDS: PANTOPRAZOLE 40MG TAB (PROTONIX) PO SCH (20:10)
[2016-05-09] MEDS: ATORVASTATIN 20 MG TAB PO SCH (20:10)
[2016-05-09 22:00] VITALS: BP 106/57
[2016-05-10] MEDS: FUROSEMIDE 40 MG/4 ML VIAL (J1940) IV SCH ×3 (01:05→17:53)
[2016-05-10] MEDS: IPRATROPIUM 0.5MG/ALBUTEROL 2.5MG INH SOL UD 3ML (DUONEB)(J7620) NEB SCH ×4 (03:23→20:00)
[2016-05-10] MEDS: methylPREDNISolone INJ 40 MG/1 ML VIAL (J2920) IV SCH (03:26)
[2016-05-10 06:00] VITALS: BP 108/60
[2016-05-10 06:38] LABS: BASO % 0.1 % (0.0-1.0); EOS % 0.3 % (0.0-3.0); LARGE UNSTAINED CELL # 0.1 K/mm3 (0.0-0.4); LARGE UNSTAINED CELL % 0.9 % (0.0-4.0); LYMPH # 0.5 K/mm3 (1.5-4.5); LYMPH % 3.8 % (24.0-44.0); MEAN CORPUSCULAR HEMOGLOBIN 27.7 pg (27.0-33.0); MEAN CORPUSCULAR HGB CONC 31.2 g/dl (32.0-36.5); MEAN CORPUSCULAR VOLUME 88.7 fl (80.0-96.0); MONO # 0.6 K/mm3 (0.0-0.8); NEUTROPHILS # 10.6 K/mm3 (1.8-7.7); NEUTROPHILS % 89.9 % (36.0-66.0); PLATELET COUNT, AUTOMATED 281 k/mm3 (150-450); RED CELL DISTRIBUTION WIDTH 14.2 % (11.5-14.5); WHITE BLOOD COUNT 11.8 K/mm3 (4.0-10.0)
[2016-05-10 06:42] LABS: INR 2.4
[2016-05-10 06:59] LABS: ALBUMIN 2.8 GM/DL (3.2-5.2); ALBUMIN/GLOBULIN RATIO 0.88 (1.00-1.93); ALKALINE PHOSPHATASE 111 U/L (45-117); ALT/SGPT 24 U/L (12-78); ANION GAP 8 MEQ/L (8-16); AST/SGOT 18 U/L (15-37); BILIRUBIN,TOTAL 0.3 MG/DL (0.2-1.0); BLOOD UREA NITROGEN 21 MG/DL (7-18); CALCIUM LEVEL 8.5 MG/DL (8.8-10.2); CARBON DIOXIDE LEVEL 33 MEQ/L (21-32); CHLORIDE LEVEL 96 MEQ/L (98-107); GLOMERULAR FILTRATION RATE > 60.0 (>42); GLUCOSE, FASTING 124 MG/DL (83-110); POTASSIUM SERUM 3.8 MEQ/L (3.5-5.1); SODIUM LEVEL 137 MEQ/L (136-145)
[2016-05-10] MEDS: ADVAIR HFA 230/21 INHALER INH SCH ×2 (07:23→19:46)
[2016-05-10] MEDS: TIOTROPIUM INHALER/CAPSULE (SPIRIVA) INH SCH (07:23)
--- NOTE | 2016-05-10 08:18 | IPNPDOC ---
Assessment/Plan Date Seen The patient was seen on 05/10/16. Problems Problems: (1) COPD exacerbation Status: Acute Response to Treatment: Improving Problem Specific Plan: Monitor Clinically Problem Text: Patient notes improved symptoms yet continues with diffuse wheezing. On Oxygen at home for exertional needs. Recent Pulmonology notes patient non-compliant with using oxygen for exertion outside of the home. Continues to smoke. Steroid dependent. Solumedrol 80mg IV q 8. Will need tapering in am. Continue Duonebs q 6 hrs. Albuterol nebs prn. Sputum cx pending. (2) Acute bilateral low back pain Status: Acute Problem Text: MRI ordered for today due to poor mobility secondary to back pain and a fall within the last week. Will order PT. 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 This mass appears unchanged comparison to the patient's last/recent transesophageal echocardiogram. It measured maximum dimension of 0.95 cm. 2. Normal left ventricle internal dimensions and wall thickness. Slight paradoxical septal motion. Preserved overall LV systolic function. Left ventricular ejection fraction (LVEF) 60% by visual estimate. 3. Grade 1 LV diastolic dysfunction (impaired relaxation filling pattern). 4. Suggestive of moderate elevation of pulmonary artery systolic pressure (49 mmHg). 5. Moderate mitral annular calcification. No mitral stenosis. Very mild mitral regurgitation. 6. Mild aortic valve sclerosis. No aortic regurgitation. 7. No vegetations identified on any of the cardiac valves. 8. Moderately technically difficult echocardiogram. Last Edited By: Louise Cardenas NP on May 10, 2016 08:16 Status: Chronic Problem Text: BLE edema note in presence of COPD, CHF and PVD. Encouraged placement of compression stockings. Furosemide 40 mg IV q 8 hrs ordered. Monitor I/O and weights. (4) Nonbacterial thrombotic endocarditis Status: Chronic Problem Specific Plan: Monitor Clinically (5) PMR (polymyalgia rheumatica) Status: Chronic (6) CAD (coronary artery disease) Status: Chronic Response to Treatment: Stable Problem Specific Plan: Monitor Clinically Problem Text: Warfarin home dosing prescribed. Daily INR ordered. (7) Hyperlipidemia Status: Chronic Response to Treatment: Stable Problem Specific Plan: Monitor Clinically (8) HTN (hypertension) Status: Chronic Response to Treatment: Stable Problem Specific Plan: Monitor Clinically (9) BPH (benign prostatic hyperplasia) Status: Chronic Response to Treatment: Stable Problem Specific Plan: Monitor Clinically (10) Ischemic cardiomyopathy Status: Chronic Response to Treatment: Stable Problem Specific Plan: Monitor Clinically Plan / VTE VTE Prophylaxis Ordered?: Yes (Warfarin) Plan Therapy: PT Subjective Review of Systems CC/HPI The patient is a 71-year-old male admitted with a reason for visit of Copd Exacerbation. Events since last encounter Patient noted improvement in symptoms. States back pain has also improved. Constitutional: Denies: Chills, Fever ENT: Denies: Head Aches Skin: Denies: Lesions, Rash Pulmonary: Reports: Cough, Dyspnea Cardiovascular: Denies: Chest Pain, Orthopnea, Palpitations Gastrointestinal: Denies: Abdominal Pain, Constipation, Diarrhea, Nausea, Vomiting Genitourinary: Denies: Dysuria, Frequency Musculoskeletal: Reports: Back Pain Neurological: Denies: Numbness, Weakness Psych: Reports: Mood Normal Objective Physical Examination General Exam: Positive: Alert, No Acute Distress Eye Exam: Positive: PERRLA ENT Exam: Positive: Atraumatic, Mucous membr. moist/pink Neck Exam: Positive: Supple, Negative: JVD Chest Exam: Positive: Wheezing Heart Exam: Positive: Rate Normal Abdomen Exam: Positive: Normal bowel sounds Extremity Exam: Positive: Edema (@+ BLE), Negative: Clubbing, Cyanosis Skin Exam: Positive: Nl turgor and temperature Psych Exam: Positive: Mental status NL, Oriented x 3 Vital Signs/I&O Vital Signs Date Time Temp Pulse Resp B/P Pulse Ox O2 Delivery O2 Flow Rate FiO2 05/10/16 06:00 96.9 83 22 108/60 93 Nasal Cannula 3.0 I&O- Last 24 Hours up to 6 AM 05/10/16 05:59 Intake Total 1200 ml Output Total 1225 ml Balance -25 ml Laboratory Data Labs 24H Laboratory Tests 2 05/09/16 12:24: Anion Gap 7L, B-Type Natriuretic Peptide 12.8, White Blood Count 11.0H, Red Blood Count 4.13L, Hemoglobin 11.9L, Hematocrit 36.1L, Mean Corpuscular Volume 87.4, Mean Corpuscular Hemoglobin 28.8, Mean Corpuscular Hemoglobin Concent 33.0 , Red Cell Distribution Width 14.2, Platelet Count 272, Neutrophils (%) (Auto) 76.7H, Lymphocytes (%) (Auto) 12.9L, Monocytes (%) (Auto) 6.8H, Eosinophils (%) (Auto) 1.1, Basophils (%) (Auto) 0.4, Neutrophils # (Auto) 8.5H, Lymphocytes # ( Auto) 1.4L, Monocytes # (Auto) 0.8, Eosinophils # (Auto) 0.1, Basophils # (Auto ) 0.0, Blood Urea Nitrogen 22H, Creatinine 1.05, Sodium Level 139, Potassium Level 3.7, Chloride Level 96L, Carbon Dioxide Level 36H, Calcium Level 8.6L, Total Creatine Kinase 122, Creatine Kinase MB 1.4, Creatine Kinase MB Relative Index 1.14, Glomerular Filtration Rate > 60.0, Large Unclassified Cells # 0.2, Large Unclassified Cells % 2.1, Prothromb Time International Ratio 2.07, Prothrombin Time 23.4H, Troponin I < 0.02 05/09/16 19:41: Total Creatine Kinase 105, Creatine Kinase MB 1.1, Creatine Kinase MB Relative Index 1.04, Troponin I < 0.02 05/10/16 05:35: Anion Gap 8, White Blood Count 11.8H, Red Blood Count 4.12L, Hemoglobin 11.4L, Hematocrit 36.6L, Mean Corpuscular Volume 88.7, Mean Corpuscular Hemoglobin 27.7 , Mean Corpuscular Hemoglobin Concent 31.2L, Red Cell Distribution Width 14.2, Platelet Count 281, Neutrophils (%) (Auto) 89.9H, Lymphocytes (%) (Auto) 3.8L, Monocytes (%) (Auto) 5.0, Eosinophils (%) (Auto) 0.3, Basophils (%) (Auto) 0.1, Neutrophils # (Auto) 10.6H, Lymphocytes # (Auto) 0.5L, Monocytes # (Auto) 0.6, Eosinophils # (Auto) 0.0, Basophils # (Auto) 0.0, Blood Urea Nitrogen 21H, Creatinine 1.00, Sodium Level 137, Potassium Level 3.8, Chloride Level 96L, Carbon Dioxide Level 33H, Calcium Level 8.5L, Total Creatine Kinase 80, Creatine Kinase MB 1.0, Creatine Kinase MB Relative Index 1.25, Glomerular Filtration Rate > 60.0, Large Unclassified Cells # 0.1, Large Unclassified Cells % 0.9, Prothromb Time International Ratio 2.40, Prothrombin Time 26.2H, Troponin I < 0.02, Aspartate Amino Transf (AST/SGOT) 18, Alanine Aminotransferase (ALT/SGPT) 24, Alkaline Phosphatase 111, Total Bilirubin 0.3, Total Protein 6.0L, Albumin 2.8L, Albumin/Globulin Ratio 0.88L CBC/BMP Laboratory Tests 05/09/16 12:24 Calcium Level 8.6 L, Total Creatine Kinase 122, Red Blood Count 4.13 L, Mean Corpuscular Volume 87.4, Mean Corpuscular Hemoglobin 28.8, Mean Corpuscular Hemoglobin Concent 33.0, Red Cell Distribution Width 14.2, Neutrophils (%) (Auto ) 76.7 H, Lymphocytes (%) (Auto) 12.9 L, Monocytes (%) (Auto) 6.8 H, Eosinophils (%) (Auto) 1.1, Basophils (%) (Auto) 0.4, Neutrophils # (Auto) 8.5 H , Lymphocytes # (Auto) 1.4 L, Monocytes # (Auto) 0.8, Eosinophils # (Auto) 0.1, Basophils # (Auto) 0.0 05/10/16 05:35 Calcium Level 8.5 L, Total Creatine Kinase 80, Red Blood Count 4.12 L, Mean Corpuscular Volume 88.7, Mean Corpuscular Hemoglobin 27.7, Mean Corpuscular Hemoglobin Concent 31.2 L, Red Cell Distribution Width 14.2, Neutrophils (%) ( Auto) 89.9 H, Lymphocytes (%) (Auto) 3.8 L, Monocytes (%) (Auto) 5.0, Eosinophils (%) (Auto) 0.3, Basophils (%) (Auto) 0.1, Neutrophils # (Auto) 10.6 H, Lymphocytes # (Auto) 0.5 L, Monocytes # (Auto) 0.6, Eosinophils # (Auto) 0.0 , Basophils # (Auto) 0.0, Aspartate Amino Transf (AST/SGOT) 18, Alanine Aminotransferase (ALT/SGPT) 24, Alkaline Phosphatase 111, Total Bilirubin 0.3, Total Protein 6.0 L, Albumin 2.8 L Microbiology Microbiology 05/09/16 Influenza Virus Type A Antigen - Final, Complete 1/4/17 Influenza Virus Type B Antigen - Final, Complete Louise Cardenas PILOT CONTROL OPERATOR May 10, 2016 08:18
[2016-05-10] MEDS: PANTOPRAZOLE 40MG TAB (PROTONIX) PO SCH ×2 (09:10→20:00)
[2016-05-10] MEDS: ATENOLOL 25 MG TAB PO SCH (09:10)
[2016-05-10] MEDS: SPIRONOLACTONE 50 MG TAB PO SCH (09:10)
[2016-05-10] MEDS: TAMSULOSIN 0.4 MG CAP PO SCH (09:10)
[2016-05-10] MEDS: ACETAMINOPHEN TAB 650MG DOSE (2X325MG) PO PRN ×2 (09:16→17:54)
[2016-05-10] MEDS: methylPREDNISolone INJ 125 MG/2 ML VIAL (J2930) IV SCH ×2 (12:45→19:58)
[2016-05-10 14:00] VITALS: BP 114/55
[2016-05-10] MEDS ORDERED: WARFARIN SOD 3 MG TAB PO SCH (17:00)
[2016-05-10] MEDS: ATORVASTATIN 20 MG TAB PO SCH (20:00)
[2016-05-10 20:50] VITALS: BP_SYST 128; BP_SYST 153; BP_DIAS 61; BP_DIAS 74
[2016-05-11] MEDS: FUROSEMIDE 40 MG/4 ML VIAL (J1940) IV SCH ×2 (00:42→09:04)
[2016-05-11] MEDS: IPRATROPIUM 0.5MG/ALBUTEROL 2.5MG INH SOL UD 3ML (DUONEB)(J7620) NEB SCH ×4 (01:24→20:00)
[2016-05-11] MEDS: methylPREDNISolone INJ 125 MG/2 ML VIAL (J2930) IV SCH (04:08)
[2016-05-11 05:40] VITALS: BP 126/58
[2016-05-11 06:36] LABS: EOS % 0.3 % (0.0-3.0); LARGE UNSTAINED CELL # 0.2 K/mm3 (0.0-0.4); LARGE UNSTAINED CELL % 1.2 % (0.0-4.0); LYMPH # 0.4 K/mm3 (1.5-4.5); LYMPH % 2.9 % (24.0-44.0); MEAN CORPUSCULAR HEMOGLOBIN 27.8 pg (27.0-33.0); MEAN CORPUSCULAR HGB CONC 31.5 g/dl (32.0-36.5); MONO # 0.6 K/mm3 (0.0-0.8); MONO % 4.3 % (0.0-5.0); NEUTROPHILS # 12.8 K/mm3 (1.8-7.7); NEUTROPHILS % 91.3 % (36.0-66.0); PLATELET COUNT, AUTOMATED 306 k/mm3 (150-450); RED CELL DISTRIBUTION WIDTH 14.3 % (11.5-14.5)
[2016-05-11 06:42] LABS: INR 2.71
[2016-05-11 06:59] LABS: ALBUMIN/GLOBULIN RATIO 0.94 (1.00-1.93); ALKALINE PHOSPHATASE 104 U/L (45-117); ALT/SGPT 28 U/L (12-78); ANION GAP 7 MEQ/L (8-16); AST/SGOT 16 U/L (15-37); BILIRUBIN,TOTAL 0.2 MG/DL (0.2-1.0); BLOOD UREA NITROGEN 24 MG/DL (7-18); CALCIUM LEVEL 8.6 MG/DL (8.8-10.2); CARBON DIOXIDE LEVEL 35 MEQ/L (21-32); CHLORIDE LEVEL 97 MEQ/L (98-107); CREATININE FOR GFR 1.02 MG/DL (0.70-1.30); GLOMERULAR FILTRATION RATE > 60.0 (>42); GLUCOSE, FASTING 124 MG/DL (83-110); SODIUM LEVEL 139 MEQ/L (136-145); TOTAL PROTEIN 6.2 GM/DL (6.4-8.2)
[2016-05-11] MEDS: ADVAIR HFA 230/21 INHALER INH SCH ×2 (07:18→19:24)
[2016-05-11] MEDS: TIOTROPIUM INHALER/CAPSULE (SPIRIVA) INH SCH (07:18)
[2016-05-11] MEDS: ATENOLOL 25 MG TAB PO SCH (09:04)
[2016-05-11] MEDS: PANTOPRAZOLE 40MG TAB (PROTONIX) PO SCH ×2 (09:04→20:43)
[2016-05-11] MEDS: TAMSULOSIN 0.4 MG CAP PO SCH (09:04)
[2016-05-11] MEDS: SPIRONOLACTONE 50 MG TAB PO SCH (09:04)
--- NOTE | 2016-05-11 10:03 | IPNPDOC ---
Assessment/Plan Date Seen The patient was seen on 05/11/16. Problems Problems: (1) COPD exacerbation Status: Acute Response to Treatment: Improving Problem Specific Plan: Monitor Clinically Problem Text: Patient notes improved symptoms yet continues with diffuse wheezing. On Oxygen at home for exertional needs. Recent Pulmonology notes patient non-compliant with using oxygen for exertion outside of the home. Continues to smoke. Steroid dependent. Solumedrol 80mg IV q 8. Will need tapering in am. Continue Duonebs q 6 hrs. Albuterol nebs prn. Sputum cx pending. 05/11 - Patient reports breathing at baseline. Ambulating in hallway with baseline dyspnea. Switch to po prednisone today with goal to d/c home in am (2) Acute bilateral low back pain Status: Acute Problem Text: MRI ordered for today due to poor mobility secondary to back pain and a fall within the last week. Will order PT. 05/11 - Lumbar x-ray without significant findings. No c/o pain today (3) Combined systolic and diastolic congestive heart failure Permanent Comment: Echo 10/2015: 1. 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 This mass appears unchanged comparison to the patient's last/recent transesophageal echocardiogram. It measured maximum dimension of 0.95 cm. 2. Normal left ventricle internal dimensions and wall thickness. Slight paradoxical septal motion. Preserved overall LV systolic function. Left ventricular ejection fraction (LVEF) 60% by visual estimate. 3. Grade 1 LV diastolic dysfunction (impaired relaxation filling pattern). 4. Suggestive of moderate elevation of pulmonary artery systolic pressure (49 mmHg). 5. Moderate mitral annular calcification. No mitral stenosis. Very mild mitral regurgitation. 6. Mild aortic valve sclerosis. No aortic regurgitation. 7. No vegetations identified on any of the cardiac valves. 8. Moderately technically difficult echocardiogram. Last Edited By: Louise Cardenas NP on May 10, 2016 08:16 Status: Chronic Problem Text: BLE edema note in presence of COPD, CHF and PVD. Encouraged placement of compression stockings. Furosemide 40 mg IV q 8 hrs ordered. Monitor I/O and weights. 05/11 - Initiate FR. Edema still present, but about at baseline for him - likely has Cor Pulmonale Change to po Lasix today (4) Nonbacterial thrombotic endocarditis Status: Chronic Problem Specific Plan: Monitor Clinically Problem Text: Followed by cardiology - continue Coumadin - Therapeutic (5) PMR (polymyalgia rheumatica) Status: Chronic Problem Text: chronic prednisone as outpatient (6) CAD (coronary artery disease) Status: Chronic Response to Treatment: Stable Problem Specific Plan: Monitor Clinically Problem Text: Warfarin home dosing prescribed. Daily INR ordered. (7) Hyperlipidemia Status: Chronic Response to Treatment: Stable Problem Specific Plan: Monitor Clinically (8) HTN (hypertension) Status: Chronic Response to Treatment: Stable Problem Specific Plan: Monitor Clinically (9) BPH (benign prostatic hyperplasia) Status: Chronic Response to Treatment: Stable Problem Specific Plan: Monitor Clinically (10) Ischemic cardiomyopathy Status: Chronic Response to Treatment: Stable Problem Specific Plan: Monitor Clinically Plan / VTE VTE Prophylaxis Ordered?: Yes (Warfarin) Plan Therapy: PT Disposition Home in am if stable Subjective Review of Systems CC/HPI The patient is a 71-year-old male admitted with a reason for visit of Copd Exacerbation. Events since last encounter He feels his breathing is about back to baseline. Constitutional: Denies: Chills, Fever Pulmonary: Reports: Dyspnea (at besline), Denies: Cough Cardiovascular: Denies: Chest Pain, Palpitations Gastrointestinal: Denies: Abdominal Pain, Constipation, Diarrhea, Nausea, Vomiting Objective Physical Examination General Exam: Positive: Alert, No Acute Distress Eye Exam: Positive: PERRLA ENT Exam: Positive: Atraumatic, Mucous membr. moist/pink Neck Exam: Positive: Supple, Negative: JVD Chest Exam: Positive: Wheezing (Few end exp wheezes throughout with diminished BS at baseline. ) Heart Exam: Positive: Rate Normal Abdomen Exam: Positive: Normal bowel sounds Extremity Exam: Positive: Edema (2+ BLE), Negative: Clubbing, Cyanosis Skin Exam: Positive: Nl turgor and temperature Psych Exam: Positive: Mental status NL, Oriented x 3 Vital Signs/I&O Vital Signs Date Time Temp Pulse Resp B/P Pulse Ox O2 Delivery O2 Flow Rate FiO2 05/11/16 09:04 80 116/64 05/11/16 05:40 96.9 19 94 Nasal Cannula 2.0 I&O- Last 24 Hours up to 6 AM 05/11/16 06:00 Intake Total 2000 ml Output Total 1200 ml Balance 800 ml Laboratory Data Labs 24H Laboratory Tests 2 05/11/16 06:15: Blood Urea Nitrogen 24H, Creatinine 1.02, Sodium Level 139, Potassium Level 4.0 , Chloride Level 97L, Carbon Dioxide Level 35H, Calcium Level 8.6L, Aspartate Amino Transf (AST/SGOT) 16, Alanine Aminotransferase (ALT/SGPT) 28, Alkaline Phosphatase 104, Total Bilirubin 0.2, Total Protein 6.2L, Albumin 3.0L, Albumin/ Globulin Ratio 0.94L, Anion Gap 7L, White Blood Count 14.0H, Red Blood Count 4.20L, Hemoglobin 11.7L, Hematocrit 36.9L, Mean Corpuscular Volume 88.0, Mean Corpuscular Hemoglobin 27.8, Mean Corpuscular Hemoglobin Concent 31.5L, Red Cell Distribution Width 14.3, Platelet Count 306, Neutrophils (%) (Auto) 91.3H, Lymphocytes (%) (Auto) 2.9L, Monocytes (%) (Auto) 4.3, Eosinophils (%) (Auto) 0.3, Basophils (%) (Auto) 0.0, Neutrophils # (Auto) 12.8H, Lymphocytes # (Auto) 0.4L, Monocytes # (Auto) 0.6, Eosinophils # (Auto) 0.0, Basophils # (Auto) 0.0, Glomerular Filtration Rate > 60.0, Large Unclassified Cells # 0.2, Large Unclassified Cells % 1.2, Prothromb Time International Ratio 2.71, Prothrombin Time 28.8H CBC/BMP Laboratory Tests 05/11/16 06:15 Calcium Level 8.6 L, Aspartate Amino Transf (AST/SGOT) 16, Alanine Aminotransferase (ALT/SGPT) 28, Alkaline Phosphatase 104, Total Bilirubin 0.2, Total Protein 6.2 L, Albumin 3.0 L, Red Blood Count 4.20 L, Mean Corpuscular Volume 88.0, Mean Corpuscular Hemoglobin 27.8, Mean Corpuscular Hemoglobin Concent 31.5 L, Red Cell Distribution Width 14.3, Neutrophils (%) (Auto) 91.3 H , Lymphocytes (%) (Auto) 2.9 L, Monocytes (%) (Auto) 4.3, Eosinophils (%) (Auto ) 0.3, Basophils (%) (Auto) 0.0, Neutrophils # (Auto) 12.8 H, Lymphocytes # ( Auto) 0.4 L, Monocytes # (Auto) 0.6, Eosinophils # (Auto) 0.0, Basophils # (Auto ) 0.0 Microbiology Microbiology 05/09/16 Influenza Virus Type A Antigen - Final, Complete 05/09/16 Influenza Virus Type B Antigen - Final, Complete NOEMI VÁZQUEZ PA-C May 11, 2016 10:03
[2016-05-11 14:00] VITALS: BP 118/64
--- NOTE | 2016-05-11 16:50 | EDDOCDS ---
Physician Documentation [facility] Name: Davion Murphy Age: 71 yrs Sex: Male : 1945 Arrival Date: 05/09/2016 Time: 10:57 Bed 20 Private MD: Moe Archer MD Disposition: 05/09/16 14:12 Hospitalization ordered by Cornelio Tirado for Inpatient Admission. Preliminary diagnosis is Chronic obstructive pulmonary disease with (acute) exacerbation. - Bed requested for 4 [place]. - Status is Inpatient Admission. mb9 - Condition is Stable. - Problem is new. - Symptoms are unchanged. Historical: - Allergies: Vicodin (Anaphylaxis); SULFA (SULFONAMIDES) (Anaphylaxis); SHELLFISH (Anaphylaxis); Latex (Rash); - Home Meds: 1. Oxygen 2.5 l prn Unknown daily (Last dose: 05/09/2016 11:11) 2. Flomax 0.4 mg Oral cp24 once daily (Last dose: 05/08/2016) 3. atenolol 25 mg Oral tab 1 tab once daily (Last dose: 05/08/2016) 4. Lipitor 80 mg Oral tab 1 tab once daily (Last dose: 05/08/2016) 5. nitroglycerin 0.4 mg SL subl 1 tab every 5 minutes pt reports using medication 4 to 5 days ago. x 3, as needed for chest pain (Last dose: Unknown) 6. spironolactone 50 mg Oral tab 1 tab once daily (Last dose: 05/08/2016) 7. tramadol 50 mg Oral tab 1 tab every 12 hours (Last dose: 05/08/2016) 8. warfarin 5 mg Oral tab 1 tab once daily 5 days a week (Last dose: 05/08/2016) 9. warfarin 2 mg Oral tab 1 tab once daily saturday and saturdays (Last dose: Unknown) 10. acetaminophen 325 mg Oral tab 2 tabs every 6 hours (Last dose: Unknown) 11. Nexium 40 mg Oral cpDR 1 cap 2 times per day (Last dose: 05/08/2016) 12. prednisone 10 mg Oral tab 1.5 tab once daily (Last dose: 05/08/2016) 13. torsemide 20 mg oral tab 1 tab twice a day (Last dose: 05/08/2016) 14. omnaris 50 mcg 2 puff daily (Last dose: 05/08/2016) 15. Advair HFA 230-21 mcg/actuation inhalation HFAA 2 puffs 2 times per day (Last dose: 05/08/2016) 16. ProAir HFA 90 mcg/actuation inhalation HFAA 2 puffs every 4 hours (Last dose: 05/08/2016) 17. saline nasal spray 0.65% 2 spray as needed (Last dose: Unknown) 18. Spiriva with HandiHaler 18 mcg Inhl CpDv 1 cap once daily (Last dose: Unknown) - PMHx: Vegetation of ICD lead; Nonbacterial thrombotic endocarditis; Myocardial infarction; Kidney stones; Hypertension; Hypercholesterolemia; Diverticulitis; COPD; Chronic Low Back Pain; CHF; Cardiomyopathy; CAD; BPH; Murphy's Esophagus; stated "clot" on "leads"; - PSHx: ICD placement; Kidney stone removal; Inguinal hernia; - Social history: Smoking status: Patient uses tobacco products, light tobacco smoker. Patient/guardian denies using alcohol, street drugs, No barriers to communication noted, The patient speaks fluent Cuban, Speaks appropriately for age. - Family history: No immediate family members are acutely ill. - : The pt / caregiver states he / she is on anticoagulants: coumadin. Home medication list is obtained from the patient. - Exposure Risk Screening:: None identified. Vital Signs: 05/09 10:59 BP 106 / 60; Pulse 78; Resp 24 S; Temp 97.1; Pulse Ox 94% on R/A; Weight 81.65 kg / dd6 180.01 lbs (R); Height 5 ft. 9 in. (175.26 cm) (R); 11:13 BP 133 / 71 (auto/); mb9 11:15 Pulse 84 MON; Pulse Ox 92% on 4 lpm NC; mb9 11:19 BP 123 / 58 (auto/); mb9 11:20 Pulse 84 MON; Pulse Ox 93% on 4 lpm NC; mb9 11:34 BP 123 / 59 (auto/); mb9 11:35 Pulse 78 MON; Pulse Ox 93% on 4 lpm NC; mb9 12:49 BP 120 / 62 (auto/); mb9 12:50 Pulse 74 MON; Pulse Ox 99% on 4 lpm NC; mb9 13:04 BP 132 / 60 (auto/); mb9 13:05 Pulse 82 MON; Pulse Ox 93% on 4 lpm NC; mb9 13:44 BP 141 / 69 (auto/); mb9 13:45 Pulse 72 MON; Pulse Ox 98% on 4 lpm NC; mb9 13:59 BP 129 / 76 (auto/); mb9 13:59 Pulse 84 MON; Pulse Ox 89% on 4 lpm NC; mb9 14:14 BP 128 / 59 (auto/); mb9 14:14 Pulse 84 MON; Pulse Ox 88% on 4 lpm NC; mb9 14:29 BP 130 / 61 (auto/); mb9 14:29 Pulse 78 MON; Pulse Ox 90% on 4 lpm NC; mb9 14:43 Pulse 82 MON; mb9 14:44 BP 123 / 60 (auto/); mb9 14:54 BP 112 / 53 (auto/); mb9 14:57 BP 112 / 53 LA Supine (auto/reg); Pulse 78 MON; Resp 21; Temp 96.8; Pulse Ox 94% on 4 mb9 lpm NC; Pain 3/10; 15:28 Pain 2/10; mb9 15:28 Pain 2/10; mb9 10:59 Body Mass Index 26.58 (81.65 kg, 175.26 cm) dd6 MDM: 11:06 Copy Manager/Pulse Ox/q 30 min VS ordered. sd1 11:06 IV Saline Lock ordered. sd1 11:06 Rhythm Strip to chart ordered. sd1 11:06 Undress patient appropriately for examination ordered. sd1 11:06 ECG WITH READING ER PHYS+CARDIAG ordered. EDMS 11:07 portable chest Ordered. EDMS 11:07 B-Type Natiuretic Peptide Ordered. EDMS 11:07 Basic Metabolic Profile Ordered. EDMS 11:07 CBC with Diff Ordered. EDMS 11:07 Cardiac Injury Profile Ordered. EDMS 11:07 Prothrombin Time Profile\\E\\INR Ordered. EDMS 11:07 Troponin Ordered. EDMS 12:00 [facility] Payment Agreement was scanned into [employer] and attached to record. mm15 12:17 Albuterol-Ipratropium 1 neb Nebulizer every 20 minutes x3 ordered. br1 12:17 Solu-MEDROL 125 mg IVP once ordered. br1 12:17 Call Respiratory ordered. br1 12:19 Spine. Lumbosacral, Complete Ordered. EDMS 12:19 Pelvis Ordered. EDMS 12:19 Ultrasound Bilateral LE R/O DVT Ordered. EDMS 12:23 Call Respiratory complete. jrd 12:25 -Influenza A&B Rapid Antigen - Nose Ordered. EDMS 12:34 Financial registration complete. mm15 12:38 Solu-MEDROL 125 mg IVP once ordered. mb9 13:07 Basic Metabolic Profile Reviewed. br1 13:07 CBC with Diff Reviewed. br1 13:07 Prothrombin Time Profile\\E\\INR Reviewed. br1 13:07 Cardiac Injury Profile Reviewed. br1 13:07 Troponin Reviewed. br1 13:07 portable chest Reviewed. br1 13:08 B-Type Natiuretic Peptide Reviewed. br1 13:08 -Influenza A&B Rapid Antigen - Nose Reviewed. br1 13:22 traMADol 50 mg PO once; prn ordered. br1 13:56 Misc. Nursing Order ordered. br1 13:58 BED REQUEST+ADM ordered. EDMS 14:19 Admission / Observation Status ordered. EDMS 14:21 Acetaminophen Tablet 650 mg PO once ordered. br1 15:35 LOW FAT LOW CHOLESTEROL DIET ordered. EDMS 15:36 MRI Spine, L.S. without con Ordered. EDMS 15:38 SPUTUM CULTURE AND GRAM STAIN Ordered. EDMS 15:39 CARDIAC MARKER PANEL Ordered. EDMS 01 08:18 T-Sheet-- Draft Copy was scanned into [employer] and attached to record. gb Administered Medications: 05/09 12:30 Drug: Albuterol-Ipratropium 1 neb [ipratropium-albuterol 0.5 mg-3 mg(2.5 mg base)/3 mL kt1 nebulization soln (1 neb)] Route: Nebulizer; 12:40 Follow up: Response: Nebulizer completed kt1 12:38 Drug: Solu-MEDROL 125 mg [Solu-Medrol 500 mg intravenous solution (125 mg)] Route: IVP; mb9 Site: right antecubital; 12:44 Drug: Albuterol-Ipratropium 1 neb [ipratropium-albuterol 0.5 mg-3 mg(2.5 mg base)/3 mL kt1 nebulization soln (1 neb)] Route: Nebulizer; 12:49 Follow up: Response: Nebulizer completed kt1 12:56 Follow up: Response: Nebulizer completed kt1 13:00 Drug: Albuterol-Ipratropium 1 neb [ipratropium-albuterol 0.5 mg-3 mg(2.5 mg base)/3 mL kt1 nebulization soln (1 neb)] Route: Nebulizer; 14:05 Drug: traMADol 50 mg [tramadol 50 mg tablet (1 tabs)] Route: PO; mb9 15:28 Follow up: Pain 2/10 Adult; Response: Confirmed pt not driving.; Pain is decreased mb9 14:42 Drug: Acetaminophen 650 mg [acetaminophen 325 mg tablet (2 tabs)] Route: PO; mb9 15:28 Follow up: Pain 2/10 Adult; Response: Pain is decreased mb9 Signatures: Dispatcher [employer] EDMS Laurence Rodgers MD MD sd1 Soumya Ace, Ocean Export Agent Unit lbd Kena Mahmood, Reg Reg gb Joel Jha MD MD br1 Julia Beltrán, RN RN ttb Mary France mm15 Moe Giles, DIRECTOR ORANGE DIRECTOR ORANGE d Thomas Biswas RN RN mb9 Korina Ng kt1 The chart was reviewed and I authenticate all verbal orders and agree with the evaluation and treatment provided.Attachments: 12:00 [facility] Payment Agreement mm15 05/11 08:18 T-Sheet-- Draft Copy gb Chart Complete [facility]
--- NOTE | 2016-05-11 16:50 | EDDOCDS ---
Nurse's Notes [facility] Name: Davion Murphy Age: 71 yrs Sex: Male : 1945 Arrival Date: 05/09/2016 Time: 10:57 Bed 20 Private MD: Moe Archer MD Diagnosis: Chronic obstructive pulmonary disease with (acute) exacerbation Presentation: 05/09 11:00 Red Flag criteria, patient assessed and taken directly to a bed. ttb 11:07 Presenting complaint: Patient states: back and chest pain started 2 days ago. DC'd from ttb [facility] on 05/06/16 -- pt fell out of bed when he got home....back pain. Pt unable to get out of WC wihtout assist. Aspirin was not taken prior to arrival. Adult Sepsis Screening: The patient does not have new or worsening altered mentation. Patient has a respiratory rate of greater than or equal to 22 (1 point). Systolic blood pressure is greater than 100. Patient has a qSOFA score of 0- Negative Sepsis Screen. Suicide/Homicide risk assessment- the patient denies having any suicidal and/or homicidal ideations and does not present with any other emotional, behavioral or mental health complaints. Status: Patient is not a service engineer or dependent. Transition of care: patient was not received from another setting of care. 11:07 Acuity: BENITO Level 3 ttb 11:07 Method Of Arrival: Walkin/Carried/Asstd ttb Triage Assessment: 11:16 General: Appears ill, obese, uncomfortable, well nourished, Behavior is appropriate for ttb age, cooperative, pleasant. Pain: Location: chest 10/10. Neurological: Level of Consciousness is awake, alert, Oriented to person, place, time, Weakness Speech is normal, Facial symmetry appears normal. Cardiovascular: Chest pain is described as Pain is 10 out of 10 on a pain scale. radiates from lower abd to chest episodes are continuous began 2-3 days ago. Respiratory: Airway is patent Respiratory effort is even, shallow, Respiratory pattern is regular, tachypnea Reports shortness of breath at rest on exertion the patient has moderate shortness of breath. Derm: Skin is normal. Injury Description: No known injury. pt states he fell multiple times. Historical: - Allergies: Vicodin (Anaphylaxis); SULFA (SULFONAMIDES) (Anaphylaxis); SHELLFISH (Anaphylaxis); Latex (Rash); - Home Meds: 1. Oxygen 2.5 l prn Unknown daily (Last dose: 05/09/2016 11:11) 2. Flomax 0.4 mg Oral cp24 once daily (Last dose: 05/08/2016) 3. atenolol 25 mg Oral tab 1 tab once daily (Last dose: 05/08/2016) 4. Lipitor 80 mg Oral tab 1 tab once daily (Last dose: 05/08/2016) 5. nitroglycerin 0.4 mg SL subl 1 tab every 5 minutes pt reports using medication 4 to 5 days ago. x 3, as needed for chest pain (Last dose: Unknown) 6. spironolactone 50 mg Oral tab 1 tab once daily (Last dose: 05/08/2016) 7. tramadol 50 mg Oral tab 1 tab every 12 hours (Last dose: 05/08/2016) 8. warfarin 5 mg Oral tab 1 tab once daily 5 days a week (Last dose: 05/08/2016) 9. warfarin 2 mg Oral tab 1 tab once daily saturday and saturdays (Last dose: Unknown) 10. acetaminophen 325 mg Oral tab 2 tabs every 6 hours (Last dose: Unknown) 11. Nexium 40 mg Oral cpDR 1 cap 2 times per day (Last dose: 05/08/2016) 12. prednisone 10 mg Oral tab 1.5 tab once daily (Last dose: 05/08/2016) 13. torsemide 20 mg oral tab 1 tab twice a day (Last dose: 05/08/2016) 14. omnaris 50 mcg 2 puff daily (Last dose: 05/08/2016) 15. Advair HFA 230-21 mcg/actuation inhalation HFAA 2 puffs 2 times per day (Last dose: 05/08/2016) 16. ProAir HFA 90 mcg/actuation inhalation HFAA 2 puffs every 4 hours (Last dose: 05/08/2016) 17. saline nasal spray 0.65% 2 spray as needed (Last dose: Unknown) 18. Spiriva with HandiHaler 18 mcg Inhl CpDv 1 cap once daily (Last dose: Unknown) - PMHx: Vegetation of ICD lead; Nonbacterial thrombotic endocarditis; Myocardial infarction; Kidney stones; Hypertension; Hypercholesterolemia; Diverticulitis; COPD; Chronic Low Back Pain; CHF; Cardiomyopathy; CAD; BPH; Murphy's Esophagus; stated "clot" on "leads"; - PSHx: ICD placement; Kidney stone removal; Inguinal hernia; - Social history: Smoking status: Patient uses tobacco products, light tobacco smoker. Patient/guardian denies using alcohol, street drugs, No barriers to communication noted, The patient speaks fluent Somali, Speaks appropriately for age. - Family history: No immediate family members are acutely ill. - : The pt / caregiver states he / she is on anticoagulants: coumadin. Home medication list is obtained from the patient. - Exposure Risk Screening:: None identified. Screenin:25 Screening information is obtained from friend/pt/prior records. Fall risk: At risk due ttb to apparent cognitive impairment, gait disturbance, immobility, injury, prior history of falls, The following interventions are performed due to a positive Fall Risk Screen: Fall Risk is added to Special Handling on the patient Summary Screen. A Fall Risk Bracelet was applied to the patient. Side Rails are placed in the up position. A Call Freeman is given with instruction to call for help when getting out of bed. Assistance ADL's: Requires assistance with meal preparation, this assistance is provided by bathing, assistance is provided by Other friend : catina, dressing, assistance is provided by toileting, assistance is provided by ambulation, assistance is provided by housework, assistance is provided by medication administration, assistance is provided by. Advance Directives: Currently, there is a health care proxy, Catina Cerrato : friend : [phone]. There is an active DNR order but there is no copy available at this time. 14:57 Abuse/DV Screen: The patient / caregiver reports he/she is: not in a situation that mb9 causes fear, pain or injury. Nutritional screening: No deficits noted. home support is adequate. Assessment: 12:08 General: Appears unkempt, Behavior is appropriate for age, cooperative. Neurological: mb9 Level of Consciousness is awake, alert, Oriented to person, place, time. Cardiovascular: Rhythm is sinus rhythm with PACs. Cardiovascular: Edema is 3+ to left ankle, left foot, right ankle and right foot. Respiratory: Airway is patent Respiratory effort is even, labored, Respiratory pattern is regular, symmetrical, Breath sounds are diminished bilaterally. Breath sounds with wheezes bilaterally. 13:32 General: pt in ultrasound. mb9 13:44 Reassessment: Patient states symptoms have not improved. General: Appears. General: mb9 Appears in no apparent distress, Behavior is appropriate for age, cooperative. Pain: Location: low back area Pain currently is 8 out of 10 on a pain scale. Respiratory: Airway is patent Respiratory effort is even, unlabored. 14:57 Reassessment: Patient states symptoms have improved. Adult Sepsis Screening: The mb9 patient does not have new or worsening altered mentation. Patient's respiratory rate is less than 22. Systolic blood pressure is greater than 100. Patient has a qSOFA score of 0- Negative Sepsis Screen. General: Appears unkempt, Behavior is appropriate for age, cooperative. Pain: Location: low back area Pain currently is 2 out of 10 on a pain scale. Respiratory: Airway is patent Respiratory effort is even, unlabored, Breath sounds with wheezes in right posterior upper lobe, right posterior middle lobe and right posterior lower lobe. Vital Signs: 10:59 BP 106 / 60; Pulse 78; Resp 24 S; Temp 97.1; Pulse Ox 94% on R/A; Weight 81.65 kg (R); dd6 Height 5 ft. 9 in. (175.26 cm) (R); 11:13 BP 133 / 71 (auto/); mb9 11:15 Pulse 84 MON; Pulse Ox 92% on 4 lpm NC; mb9 11:19 BP 123 / 58 (auto/); mb9 11:20 Pulse 84 MON; Pulse Ox 93% on 4 lpm NC; mb9 11:34 BP 123 / 59 (auto/); mb9 11:35 Pulse 78 MON; Pulse Ox 93% on 4 lpm NC; mb9 12:49 BP 120 / 62 (auto/); mb9 12:50 Pulse 74 MON; Pulse Ox 99% on 4 lpm NC; mb9 13:04 BP 132 / 60 (auto/); mb9 13:05 Pulse 82 MON; Pulse Ox 93% on 4 lpm NC; mb9 13:44 BP 141 / 69 (auto/); mb9 13:45 Pulse 72 MON; Pulse Ox 98% on 4 lpm NC; mb9 13:59 BP 129 / 76 (auto/); mb9 13:59 Pulse 84 MON; Pulse Ox 89% on 4 lpm NC; mb9 14:14 BP 128 / 59 (auto/); mb9 14:14 Pulse 84 MON; Pulse Ox 88% on 4 lpm NC; mb9 14:29 BP 130 / 61 (auto/); mb9 14:29 Pulse 78 MON; Pulse Ox 90% on 4 lpm NC; mb9 14:43 Pulse 82 MON; mb9 14:44 BP 123 / 60 (auto/); mb9 14:54 BP 112 / 53 (auto/); mb9 14:57 BP 112 / 53 LA Supine (auto/reg); Pulse 78 MON; Resp 21; Temp 96.8; Pulse Ox 94% on 4 mb9 lpm NC; Pain 3/10; 15:28 Pain 2/10; mb9 15:28 Pain 2/10; mb9 10:59 Body Mass Index 26.58 (81.65 kg, 175.26 cm) dd6 Vitals: 10:59 Log In Time: May 09, 2016 at 10:57. RN notified that patient meets Red Flag dd6 criteria. ED Course: 10:58 Patient visited by Naresh Delacruz PCA. dd6 10:58 Patient moved to Waiting dd6 10:59 Moe Archer is Private Physician. dd6 11:04 Patient moved to PR2 / 26 jrd 11:05 Patient moved to 20 mlb1 11:09 Triage Initiated ttb 11:14 EKG done. (by ED staff). Reviewed by Laurence Rodgers MD. jrd 11:19 Patient visited by Moe Giles PCA. jrd 11:21 Patient visited by Julia Beltrán RN. ttb 11:25 manager monitoring on. Pulse ox on. NIBP on. ttb 11:27 Patient visited by Julia Beltrán RN. ttb 11:55 Patient visited by Michael Seals PCA. jlf 12:00 [facility] Agreement was scanned into [employer] and attached to record. mm15 12:05 Joel Jha MD is Attending Physician. br1 12:16 Patient visited by Joel Jha MD. br1 12:27 Troponin Sent. mb9 12:27 Prothrombin Time Profile\\E\\INR Sent. mb9 12:27 Cardiac Injury Profile Sent. mb9 12:27 CBC with Diff Sent. mb9 12:27 Basic Metabolic Profile Sent. mb9 12:27 B-Type Natiuretic Peptide Sent. mb9 12:37 portable chest Returned. EDMS 12:38 -Influenza A&B Rapid Antigen - Nose Sent. mb9 12:39 Inserted saline lock: 18 gauge in right antecubital area and blood collected. The mb9 patient tolerated the procedure well. 12:41 Patient moved to Ultrasound hgl 12:43 Patient moved to 20 hgl 12:48 Patient visited by Dorian Mendes. jml1 13:18 Patient moved to Ultrasound hgl 13:37 Patient moved to 20 hgl 13:49 Patient visited by Thomas Biswas RN. mb9 14:08 Pelvis Returned. EDMS 14:08 Spine. Lumbosacral, Complete Returned. EDMS 14:12 Cornelio Tirado DO is Hospitalizing Provider. br1 14:56 Ultrasound Bilateral LE R/O DVT Returned. EDMS 14:57 The patient / caregiver is instructed regarding the plan of care and ED course. mb9 14:57 No procedures done that require assistance. mb9 05/11 08:18 T-Sheet-- Draft Copy was scanned into [employer] and attached to record. gb Administered Medications: 04 12:30 Drug: Albuterol-Ipratropium 1 neb [ipratropium-albuterol 0.5 mg-3 mg(2.5 mg base)/3 mL kt1 nebulization soln (1 neb)] Route: Nebulizer; 12:40 Follow up: Response: Nebulizer completed kt1 12:38 Drug: Solu-MEDROL 125 mg [Solu-Medrol 500 mg intravenous solution (125 mg)] Route: IVP; mb9 Site: right antecubital; 12:44 Drug: Albuterol-Ipratropium 1 neb [ipratropium-albuterol 0.5 mg-3 mg(2.5 mg base)/3 mL kt1 nebulization soln (1 neb)] Route: Nebulizer; 12:49 Follow up: Response: Nebulizer completed kt1 12:56 Follow up: Response: Nebulizer completed kt1 13:00 Drug: Albuterol-Ipratropium 1 neb [ipratropium-albuterol 0.5 mg-3 mg(2.5 mg base)/3 mL kt1 nebulization soln (1 neb)] Route: Nebulizer; 14:05 Drug: traMADol 50 mg [tramadol 50 mg tablet (1 tabs)] Route: PO; mb9 15:28 Follow up: Pain 2/10 Adult; Response: Confirmed pt not driving.; Pain is decreased mb9 14:42 Drug: Acetaminophen 650 mg [acetaminophen 325 mg tablet (2 tabs)] Route: PO; mb9 15:28 Follow up: Pain 2/10 Adult; Response: Pain is decreased mb9 RT: 12:34 Initial Med Neb Given as ordered Patient was instructed and evaluated on procedure. kt1 12:44 Subsequent Med Neb Given as ordered Patient tolerated procedure well without adverse kt1 effect. 12:55 Subsequent Med Neb Given as ordered. kt1 Order Results: Lab Order: B-Type Natiuretic Peptide; SPEC'M 05/09/16 12:24 Test: BRAIN NATRIURETIC PEPTIDE; Value: 12.8; Range: <100; Units: PG/ML; Status: F Lab Order: Basic Metabolic Profile; SPEC'M 05/09/16 12:24 Test: GLUCOSE, FASTING; Value: 91; Range: 83-110; Units: MG/DL; Status: F Test: BLOOD UREA NITROGEN; Value: 22; Range: 7-18; Abnormal: Above high normal; Units: MG/DL; Status: F Test: CREATININE FOR GFR; Value: 1.05; Range: 0.70-1.30; Units: MG/DL; Status: F Test: GLOMERULAR FILTRATION RATE; Value: > 60.0; Range: >42; Status: F Test: SODIUM LEVEL; Value: 139; Range: 136-145; Units: MEQ/L; Status: F Test: POTASSIUM SERUM; Value: 3.7; Range: 3.5-5.1; Units: MEQ/L; Status: F Test: CHLORIDE LEVEL; Value: 96; Range: 98-107; Abnormal: Below low normal; Units: MEQ/L; Status: F Test: CARBON DIOXIDE LEVEL; Value: 36; Range: 21-32; Abnormal: Above high normal; Units: MEQ/L; Status: F Test: ANION GAP; Value: 7; Range: 8-16; Abnormal: Below low normal; Units: MEQ/L; Status: F Test: CALCIUM LEVEL; Value: 8.6; Range: 8.8-10.2; Abnormal: Below low normal; Units: MG/DL; Status: F Test Note: ; Units are mL/min/1.73 m2 Chronic Kidney Disease Staging per NKF: Stage I & II GFR >=60 Normal to Mildly Decreased Stage III GFR 30-59 Moderately Decreased Stage IV GFR 15-29 Severely Decreased Stage V GFR <15 Very Little GFR Left ESRD GFR <15 on BIOMEDICAL ELECTRONICS TECHNICIAN Lab Order: CBC with Diff; SPEC'M 05/09/16 12:24 Test: WHITE BLOOD COUNT; Value: 11.0; Range: 4.0-10.0; Abnormal: Above high normal; Units: K/mm3; Status: F Test: RED BLOOD COUNT; Value: 4.13; Range: 4.30-6.10; Abnormal: Below low normal; Units: M/mm3; Status: F Test: HEMOGLOBIN; Value: 11.9; Range: 14.0-18.0; Abnormal: Below low normal; Units: g/dl; Status: F Test: HEMATOCRIT; Value: 36.1; Range: 42.0-52.0; Abnormal: Below low normal; Units: %; Status: F Test: MEAN CORPUSCULAR VOLUME; Value: 87.4; Range: 80.0-96.0; Units: fl; Status: F Test: MEAN CORPUSCULAR HEMOGLOBIN; Value: 28.8; Range: 27.0-33.0; Units: pg; Status: F Test: MEAN CORPUSCULAR HGB CONC; Value: 33.0; Range: 32.0-36.5; Units: g/dl; Status: F Test: RED CELL DISTRIBUTION WIDTH; Value: 14.2; Range: 11.5-14.5; Units: %; Status: F Test: PLATELET COUNT, AUTOMATED; Value: 272; Range: 150-450; Units: k/mm3; Status: F Test: NEUTROPHILS %; Value: 76.7; Range: 36.0-66.0; Abnormal: Above high normal; Units: %; Status: F Test: LYMPH %; Value: 12.9; Range: 24.0-44.0; Abnormal: Below low normal; Units: %; Status: F Test: MONO %; Value: 6.8; Range: 0.0-5.0; Abnormal: Above high normal; Units: %; Status: F Test: EOS %; Value: 1.1; Range: 0.0-3.0; Units: %; Status: F Test: BASO %; Value: 0.4; Range: 0.0-1.0; Units: %; Status: F Test: LARGE UNSTAINED CELL %; Value: 2.1; Range: 0.0-4.0; Units: %; Status: F Test: NEUTROPHILS #; Value: 8.5; Range: 1.8-7.7; Abnormal: Above high normal; Units: K/mm3; Status: F Test: LYMPH #; Value: 1.4; Range: 1.5-4.5; Abnormal: Below low normal; Units: K/mm3; Status: F Test: MONO #; Value: 0.8; Range: 0.0-0.8; Units: K/mm3; Status: F Test: EOS #; Value: 0.1; Range: 0.0-0.50; Units: K/mm3; Status: F Test: BASO #; Value: 0.0; Range: 0.0-0.2; Units: K/mm3; Status: F Test: LARGE UNSTAINED CELL #; Value: 0.2; Range: 0.0-0.4; Units: K/mm3; Status: F Lab Order: Cardiac Injury Profile; SPEC'M 05/09/16 12:24 Test: CPK CREATINE PHOSPHOKINASE; Value: 122; Range: 39-308; Units: U/L; Status: F Test: CK-MB VALUE MASS; Value: 1.4; Range: 0.0-3.6; Units: NG/ML; Status: F Test: MB/CK RELATIVE INDEX; Value: 1.14; Range: < OR =4; Status: F Test Note: ; DIAGNOSIS CRITERIA MMB ng/ml Relative Index (RI) NON-AMI < or = 5 N/A GRIFFITHS ZONE > 5 < or = 4 AMI > 5 > 4 Lab Order: Prothrombin Time Profile\\E\\INR; SPEC'M 05/09/16 12:24 Test: PROTHROMBIN TIME; Value: 23.4; Range: 12.3-14.5; Abnormal: Above high normal; Units: SECONDS; Status: F Test: INR; Value: 2.07; Status: F Test Note: ; THERAPUTIC HUMAN INR VALUES INDICATIONS NORMAL RANGES PROPHYLAXIS/TREATMENT OF: VENOUS THROMBOSIS 2.0-3.0 PULMONARY EMBOLISM 2.0-3.0 PREVENTION OF SYSTEMIC EMBOLISM FROM: TISSUE HEART VALVES 2.0-3.0 ACUTE MYOCARDIAL INFARCTION 2.0-3.0 VALVULAR HEART DISEASE 2.0-3.0 ATRIAL FIBRILLATION 2.0-3.0 MECHANICAL VALVES(HIGH RISK) 2.5-3.5 RECURRENT MYOCARDIAL INFARCTION 2.5-3.5 Lab Order: Troponin; SPEC'M 05/09/16 12:24 Test: TROPONIN I; Value: < 0.02; Range: < 0.10; Units: NG/ML; Status: F Test Note: ; Troponin I Reference Interval for Stribe LOCI: 99th Percentile= 0.00-0.045 ng/ml Risk Stratification: <= 0.10 ng/ml Decreased Risk for Adverse Clinical Events. 0.10-1.50 ng/ml Increased Risk for Adverse Clinical Events. Evaluation of additional criterion and/or repeat testing in 2-6 hours is suggested to rule out myocardial damage. >= 1.50 ng/ml Indicative of Myocardial Injury. Lab Order: -Influenza A&B Rapid Antigen - Nose; SPEC'M 05/09/16 12:37 Test: INFLUENZA A RAPID SCR by ICA; Value: INFLUENZA A RESULTS NEGATIVE; Status: F Test: INFLUENZA A RAPID SCR by ICA; Value: Comments:; Status: F Test: INFLUENZA B RAPID SCR by ICA; Value: INFLUENZA B RESULTS NEGATIVE; Status: F Test Note: ; The Influenza test is a direct rapid immunoassay for the qualitative detection of Influenza viral antigen. Cell culture (Viral Culture) testing should be considered to confirm NEGATIVE results and to assist in detecting other viruses that can provide similar clinical symptoms. Please contact the lab within 24 hours [phone] if confirmatory testing is desired. Radiology Order: portable chest Test: portable chest REASON FOR EXAMINATION: Chest Pain; ; SINGLE VIEW CHEST:; ; AP portable view of the chest is performed and compared to a prior study of; 02/01/2016.; ; Diffuse interstitial fibrosis is stable. No definite superimposed acute; infiltrate is seen. Heart is normal in size. There is some calcification and; ectasia of the thoracic aorta. Pacemaker is unchanged.; ; IMPRESSION:; Chronic changes. No definite superimposed acute infiltrate.; ; ; ; Unreviewed; Radiology Order: Spine. Lumbosacral, Complete Test: Spine. Lumbosacral, Complete REASON FOR EXAMINATION: Trauma; ; AP LUMBAR SPINE:; ; AP view of the lumbar spine are performed. The patient refused the remaining; portion of the lumbosacral spine series.; ; Comparing to the prior study of 03/17/2013, there are diffuse degenerative; changes. No gross acute fracture is seen. There is curvature toward the right.; The posterior elements appear intact.; ; IMPRESSION:; No gross acute finding.; ; ; ; Unreviewed; Radiology Order: Pelvis Test: Pelvis REASON FOR EXAMINATION: Trauma; ; PELVIS:; ; AP view of the pelvis is performed. There is no evidence of acute fracture or; dislocation. There appear to be mild degenerative changes at the hip joints.; ; IMPRESSION:; No evidence of fracture or dislocation.; ; ; ; Unreviewed; Radiology Order: Ultrasound Bilateral LE R/O DVT Test: Ultrasound Bilateral LE R/O DVT REASON FOR EXAMINATION: Deformity/Swelling; BILATERAL LOWER EXTREMITY VENOUS DOPPLER: 05/09/2016; ; INDICATION: deformity and swelling.; ; COMPARISON: Bilateral lower extremity venous Doppler 04/25/2016.; ; RIGHT LOWER EXTREMITY VENOUS DOPPLER:; ; TECHNIQUE: Color-flow Doppler spectral wave Doppler and griffiths-scale imaging used; to evaluate the deep right lower extremity veins at common femoral superficial; femoral popliteal venous levels.; ; FINDINGS: The midportion of right superficial femoral vein is duplicated and; paten. There is no evidence of deep venous thrombosis within the right lower; extremity veins at the above-stated levels. There is normal response to; augmentation of flow.; ; Subcutaneous edema is seen overlying the popliteal fossa.; ; IMPRESSION:; No evidence of deep venous thrombosis in the right lower extremity; ; LEFT LOWER EXTREMITY VENOUS DOPPLER:; ; TECHNIQUE: Color-flow Doppler spectral wave and griffiths-scale imaging were used to; evaluate the lower extremity vein, common femoral, superficial femoral, and; popliteal venous levels.; ; FINDINGS:; There is normal compressibility of veins at the above-stated levels. There is; normal response to augmentation of flow. The profunda femoris vein is also; patent.; ; There is subcutaneous edema overlying the popliteal fossa.; ; IMPRESSION:; No evidence of DVT in the left lower extremity.; There is subcutaneous edema overlying the popliteal fossa.; ; ; ; ; ; Unreviewed; Outcome: 14:12 Decision to Hospitalize by Provider. br1 14:57 Discharge Assessment: patient administered narcotics - yes. Patient was admitted to the [address] or transferred to another facility. The following High Risk Discharge criteria are identified: None. Admitted to Med/Surg accompanied by tech. Condition: good Condition: stable Condition: improved. Ultrasound Study completed. Property :Personal belongings accompany Pt. 15:49 [facility] Signatures: Dispatcher [employer] EDMS Kena Mahmood, Reg Reg gb Micah, Thomas Roberto, RN RN mlb1 Korina Ng kt1 Joel Jha MD MD br1 Naresh Delacruz, PIPE SUPERVISOR PIPE SUPERVISOR dd6 Dorian Mendes jml1 Mariann, Julia Rodriguez, LOYD RN ttb Mary France mm15 Michael Seals, PIPE SUPERVISOR PIPE SUPERVISOR jlf Moe Giles, PIPE SUPERVISOR PIPE SUPERVISOR jrd Thomas Biswas,RN RN mb9 Corrections: (The following items were deleted from the chart) 11:19 11:18 EKG done. (by ED staff). Reviewed by Laurence dumont jrd 15:02 13:05 Pulse 82bpm; Monitor; Pulse Ox 93%; mb9 mb9 15:02 12:50 Pulse 74bpm; Monitor; Pulse Ox 99%; mb9 mb9 15:02 14:29 Pulse 78bpm; Monitor; Pulse Ox 90%; mb9 mb9 15:02 14:14 Pulse 84bpm; Monitor; Pulse Ox 88%; mb9 mb9 15:02 13:59 Pulse 84bpm; Monitor; Pulse Ox 89%; mb9 mb9 15:02 13:45 Pulse 72bpm; Monitor; Pulse Ox 98%; mb9 mb9 15:02 14:57 BP 112 / 53 Supine Auto L Arm Regular; Pulse 78bpm; MonitorResp 21bpm; Pulse Ox mb9 94%; Temp 96.8F; Pain 3/10; mb9 Chart Complete MTDD
--- NOTE | 2016-05-11 16:50 | EDDOCDS ---
Physician Documentation [facility] Name: Davion Murphy Age: 71 yrs Sex: Male : 1945 Arrival Date: 05/09/2016 Time: 10:57 Bed 20 Private MD: Moe Archer MD Disposition: 05/09/16 14:12 Hospitalization ordered by Cornelio Tirado for Inpatient Admission. Preliminary diagnosis is Chronic obstructive pulmonary disease with (acute) exacerbation. - Bed requested for 4 Longs. - Status is Inpatient Admission. mb9 - Condition is Stable. - Problem is new. - Symptoms are unchanged. Historical: - Allergies: Vicodin (Anaphylaxis); SULFA (SULFONAMIDES) (Anaphylaxis); SHELLFISH (Anaphylaxis); Latex (Rash); - Home Meds: 1. Oxygen 2.5 l prn Unknown daily (Last dose: 05/09/2016 11:11) 2. Flomax 0.4 mg Oral cp24 once daily (Last dose: 05/08/2016) 3. atenolol 25 mg Oral tab 1 tab once daily (Last dose: 05/08/2016) 4. Lipitor 80 mg Oral tab 1 tab once daily (Last dose: 05/08/2016) 5. nitroglycerin 0.4 mg SL subl 1 tab every 5 minutes pt reports using medication 4 to 5 days ago. x 3, as needed for chest pain (Last dose: Unknown) 6. spironolactone 50 mg Oral tab 1 tab once daily (Last dose: 05/08/2016) 7. tramadol 50 mg Oral tab 1 tab every 12 hours (Last dose: 05/08/2016) 8. warfarin 5 mg Oral tab 1 tab once daily 5 days a week (Last dose: 05/08/2016) 9. warfarin 2 mg Oral tab 1 tab once daily saturday and saturdays (Last dose: Unknown) 10. acetaminophen 325 mg Oral tab 2 tabs every 6 hours (Last dose: Unknown) 11. Nexium 40 mg Oral cpDR 1 cap 2 times per day (Last dose: 05/08/2016) 12. prednisone 10 mg Oral tab 1.5 tab once daily (Last dose: 05/08/2016) 13. torsemide 20 mg oral tab 1 tab twice a day (Last dose: 05/08/2016) 14. omnaris 50 mcg 2 puff daily (Last dose: 05/08/2016) 15. Advair HFA 230-21 mcg/actuation inhalation HFAA 2 puffs 2 times per day (Last dose: 05/08/2016) 16. ProAir HFA 90 mcg/actuation inhalation HFAA 2 puffs every 4 hours (Last dose: 05/08/2016) 17. saline nasal spray 0.65% 2 spray as needed (Last dose: Unknown) 18. Spiriva with HandiHaler 18 mcg Inhl CpDv 1 cap once daily (Last dose: Unknown) - PMHx: Vegetation of ICD lead; Nonbacterial thrombotic endocarditis; Myocardial infarction; Kidney stones; Hypertension; Hypercholesterolemia; Diverticulitis; COPD; Chronic Low Back Pain; CHF; Cardiomyopathy; CAD; BPH; Murphy's Esophagus; stated "clot" on "leads"; - PSHx: ICD placement; Kidney stone removal; Inguinal hernia; - Social history: Smoking status: Patient uses tobacco products, light tobacco smoker. Patient/guardian denies using alcohol, street drugs, No barriers to communication noted, The patient speaks fluent [place], Speaks appropriately for age. - Family history: No immediate family members are acutely ill. - : The pt / caregiver states he / she is on anticoagulants: coumadin. Home medication list is obtained from the patient. - Exposure Risk Screening:: None identified. Vital Signs: 05/09 10:59 BP 106 / 60; Pulse 78; Resp 24 S; Temp 97.1; Pulse Ox 94% on R/A; Weight 81.65 kg / dd6 180.01 lbs (R); Height 5 ft. 9 in. (175.26 cm) (R); 11:13 BP 133 / 71 (auto/); mb9 11:15 Pulse 84 MON; Pulse Ox 92% on 4 lpm NC; mb9 11:19 BP 123 / 58 (auto/); mb9 11:20 Pulse 84 MON; Pulse Ox 93% on 4 lpm NC; mb9 11:34 BP 123 / 59 (auto/); mb9 11:35 Pulse 78 MON; Pulse Ox 93% on 4 lpm NC; mb9 12:49 BP 120 / 62 (auto/); mb9 12:50 Pulse 74 MON; Pulse Ox 99% on 4 lpm NC; mb9 13:04 BP 132 / 60 (auto/); mb9 13:05 Pulse 82 MON; Pulse Ox 93% on 4 lpm NC; mb9 13:44 BP 141 / 69 (auto/); mb9 13:45 Pulse 72 MON; Pulse Ox 98% on 4 lpm NC; mb9 13:59 BP 129 / 76 (auto/); mb9 13:59 Pulse 84 MON; Pulse Ox 89% on 4 lpm NC; mb9 14:14 BP 128 / 59 (auto/); mb9 14:14 Pulse 84 MON; Pulse Ox 88% on 4 lpm NC; mb9 14:29 BP 130 / 61 (auto/); mb9 14:29 Pulse 78 MON; Pulse Ox 90% on 4 lpm NC; mb9 14:43 Pulse 82 MON; mb9 14:44 BP 123 / 60 (auto/); mb9 14:54 BP 112 / 53 (auto/); mb9 14:57 BP 112 / 53 LA Supine (auto/reg); Pulse 78 MON; Resp 21; Temp 96.8; Pulse Ox 94% on 4 mb9 lpm NC; Pain 3/10; 15:28 Pain 2/10; mb9 15:28 Pain 2/10; mb9 10:59 Body Mass Index 26.58 (81.65 kg, 175.26 cm) dd6 MDM: 11:06 District Manager [employer]s Sales/Pulse Ox/q 30 min VS ordered. sd1 11:06 IV Saline Lock ordered. sd1 11:06 Rhythm Strip to chart ordered. sd1 11:06 Undress patient appropriately for examination ordered. sd1 11:06 ECG WITH READING ER PHYS+CARDIAG ordered. EDMS 11:07 portable chest Ordered. EDMS 11:07 B-Type Natiuretic Peptide Ordered. EDMS 11:07 Basic Metabolic Profile Ordered. EDMS 11:07 CBC with Diff Ordered. EDMS 11:07 Cardiac Injury Profile Ordered. EDMS 11:07 Prothrombin Time Profile\\E\\INR Ordered. EDMS 11:07 Troponin Ordered. EDMS 12:00 [facility] Payment Agreement was scanned into [employer] and attached to record. mm15 12:17 Albuterol-Ipratropium 1 neb Nebulizer every 20 minutes x3 ordered. br1 12:17 Solu-MEDROL 125 mg IVP once ordered. br1 12:17 Call Respiratory ordered. br1 12:19 Spine. Lumbosacral, Complete Ordered. EDMS 12:19 Pelvis Ordered. EDMS 12:19 Ultrasound Bilateral LE R/O DVT Ordered. EDMS 12:23 Call Respiratory complete. jrd 12:25 -Influenza A&B Rapid Antigen - Nose Ordered. EDMS 12:34 Financial registration complete. mm15 12:38 Solu-MEDROL 125 mg IVP once ordered. mb9 13:07 Basic Metabolic Profile Reviewed. br1 13:07 CBC with Diff Reviewed. br1 13:07 Prothrombin Time Profile\\E\\INR Reviewed. br1 13:07 Cardiac Injury Profile Reviewed. br1 13:07 Troponin Reviewed. br1 13:07 portable chest Reviewed. br1 13:08 B-Type Natiuretic Peptide Reviewed. br1 13:08 -Influenza A&B Rapid Antigen - Nose Reviewed. br1 13:22 traMADol 50 mg PO once; prn ordered. br1 13:56 Misc. Nursing Order ordered. br1 13:58 BED REQUEST+ADM ordered. EDMS 14:19 Admission / Observation Status ordered. EDMS 14:21 Acetaminophen Tablet 650 mg PO once ordered. br1 15:35 LOW FAT LOW CHOLESTEROL DIET ordered. EDMS 15:36 MRI Spine, L.S. without con Ordered. EDMS 15:38 SPUTUM CULTURE AND GRAM STAIN Ordered. EDMS 15:39 CARDIAC MARKER PANEL Ordered. EDMS 01 08:18 T-Sheet-- Draft Copy was scanned into [employer] and attached to record. gb Administered Medications: 05/09 12:30 Drug: Albuterol-Ipratropium 1 neb [ipratropium-albuterol 0.5 mg-3 mg(2.5 mg base)/3 mL kt1 nebulization soln (1 neb)] Route: Nebulizer; 12:40 Follow up: Response: Nebulizer completed kt1 12:38 Drug: Solu-MEDROL 125 mg [Solu-Medrol 500 mg intravenous solution (125 mg)] Route: IVP; mb9 Site: right antecubital; 12:44 Drug: Albuterol-Ipratropium 1 neb [ipratropium-albuterol 0.5 mg-3 mg(2.5 mg base)/3 mL kt1 nebulization soln (1 neb)] Route: Nebulizer; 12:49 Follow up: Response: Nebulizer completed kt1 12:56 Follow up: Response: Nebulizer completed kt1 13:00 Drug: Albuterol-Ipratropium 1 neb [ipratropium-albuterol 0.5 mg-3 mg(2.5 mg base)/3 mL kt1 nebulization soln (1 neb)] Route: Nebulizer; 14:05 Drug: traMADol 50 mg [tramadol 50 mg tablet (1 tabs)] Route: PO; mb9 15:28 Follow up: Pain 2/10 Adult; Response: Confirmed pt not driving.; Pain is decreased mb9 14:42 Drug: Acetaminophen 650 mg [acetaminophen 325 mg tablet (2 tabs)] Route: PO; mb9 15:28 Follow up: Pain 2/10 Adult; Response: Pain is decreased mb9 Signatures: Dispatcher [employer] EDMS Laurence Rodgers MD MD sd1 Soumya Ace, Chemistry Laboratory Technician Unit lbd Kena Mahmood, Reg Reg gb Joel Jha MD MD br1 Julia Beltrán, RN RN ttb Mary France mm15 Moe Giles, BAKED GOODS STOCK CLERK B[employer]ED [employer] STOCK CLERK d Thomas Biswas RN RN mb9 Korina Ng kt1 The chart was reviewed and I authenticate all verbal orders and agree with the evaluation and treatment provided.Attachments: 12:00 [facility] Payment Agreement mm15 05/11 08:18 T-Sheet-- Draft Copy gb Chart Complete [facility]
[2016-05-11] MEDS: WARFARIN SOD 4 MG TAB PO SCH (18:55)
[2016-05-11] MEDS: TORSEMIDE 20 MG TAB PO SCH (18:55)
[2016-05-11] MEDS: ACETAMINOPHEN TAB 650MG DOSE (2X325MG) PO PRN (19:00)
[2016-05-11 20:40] VITALS: BP 109/66
[2016-05-11] MEDS: predniSONE 20 MG TAB PO SCH (20:43)
[2016-05-11] MEDS: ATORVASTATIN 20 MG TAB PO SCH (20:44)
[2016-05-12] MEDS: IPRATROPIUM 0.5MG/ALBUTEROL 2.5MG INH SOL UD 3ML (DUONEB)(J7620) NEB SCH ×3 (02:00→13:29)
[2016-05-12 05:50] VITALS: BP 136/66
[2016-05-12 06:32] LABS: BASO # 0.1 K/mm3 (0.0-0.2); BASO % 0.4 % (0.0-1.0); EOS % 0.2 % (0.0-3.0); LARGE UNSTAINED CELL # 0.2 K/mm3 (0.0-0.4); LARGE UNSTAINED CELL % 0.9 % (0.0-4.0); LYMPH # 0.7 K/mm3 (1.5-4.5); LYMPH % 2.6 % (24.0-44.0); MEAN CORPUSCULAR HEMOGLOBIN 28.6 pg (27.0-33.0); MEAN CORPUSCULAR HGB CONC 32.1 g/dl (32.0-36.5); MEAN CORPUSCULAR VOLUME 89.1 fl (80.0-96.0); MONO # 0.9 K/mm3 (0.0-0.8); MONO % 4.5 % (0.0-5.0); NEUTROPHILS # 17.8 K/mm3 (1.8-7.7); NEUTROPHILS % 91.4 % (36.0-66.0); PLATELET COUNT, AUTOMATED 275 k/mm3 (150-450); RED CELL DISTRIBUTION WIDTH 15.5 % (11.5-14.5); WHITE BLOOD COUNT 19.4 K/mm3 (4.0-10.0)
[2016-05-12 06:38] LABS: INR 2.67
[2016-05-12 07:06] LABS: ALBUMIN 2.9 GM/DL (3.2-5.2); ALBUMIN/GLOBULIN RATIO 0.94 (1.00-1.93); ALKALINE PHOSPHATASE 97 U/L (45-117); ALT/SGPT 24 U/L (12-78); ANION GAP 8 MEQ/L (8-16); AST/SGOT 19 U/L (15-37); BILIRUBIN,TOTAL 0.2 MG/DL (0.2-1.0); BLOOD UREA NITROGEN 31 MG/DL (7-18); CALCIUM LEVEL 8.7 MG/DL (8.8-10.2); CARBON DIOXIDE LEVEL 32 MEQ/L (21-32); CHLORIDE LEVEL 98 MEQ/L (98-107); GLOMERULAR FILTRATION RATE > 60.0 (>42); GLUCOSE, FASTING 104 MG/DL (83-110); SODIUM LEVEL 138 MEQ/L (136-145)
[2016-05-12] MEDS: TIOTROPIUM INHALER/CAPSULE (SPIRIVA) INH SCH (08:35)
[2016-05-12] MEDS: ADVAIR HFA 230/21 INHALER INH SCH (08:36)
[2016-05-12 09:18] VITALS: BP 136/66
[2016-05-12] MEDS: ATENOLOL 25 MG TAB PO SCH (09:18)
[2016-05-12] MEDS: predniSONE 20 MG TAB PO SCH (09:18)
[2016-05-12] MEDS: PANTOPRAZOLE 40MG TAB (PROTONIX) PO SCH (09:18)
[2016-05-12] MEDS: TORSEMIDE 20 MG TAB PO SCH (09:18)
[2016-05-12] MEDS: SPIRONOLACTONE 50 MG TAB PO SCH (09:18)
[2016-05-12] MEDS: TAMSULOSIN 0.4 MG CAP PO SCH (09:18)
[2016-05-12] MEDS ORDERED: PRED20TA PO (10:09)
[2016-05-12 14:00] VITALS: BP 108/65
--- NOTE | 2016-05-12 15:54 | DS.PDOC ---
Discharge Summary General Date of Admission May 09, 2016 at 14:14 Date of Discharge 05/12/16 Primary Care Physician: Saul Archer MD Attending Physician: ANDRÉS MILES MD Discharge Summary PROCEDURES PERFORMED DURING STAY: None. COMPLICATIONS/CHIEF COMPLAINT: Copd Exacerbation ADMISSION DIAGNOSES: 1. COPD exacerbation 2. CHF systolic and diastolic 3. HTN. DISCHARGE DIAGNOSES: 1. COPD exacerbation 2. CHF systolic and diastolic 3. HTN. HISTORY OF PRESENT ILLNESS: 71yoM with a past medical history significant for O2 and steroid-dependent COPD, CHF, cardiomyopathy, hypertension, history of IA , nonbacterial thrombotic endocarditis and vegetation of ICD lead, BPH who reports a 4 to five-day history of increased shortness of breath with occasional dry cough and wheeze. He denies sputum, fever, or chills. He states he used sublingual nitroglycerin one or 2 days ago, he has difficulty recalling. He is a vague historian. He also states he fell off of his bed 3 or 4 days ago and landed on his hands and knees and since then he has been having low back pain. He states this is achy pain in his low back. He does not report radiation of pain down his legs. He has however had difficulty ambulating and required assistance to get out of the wheelchair in the emergency department. He denies numbness or tingling in the lower extremities. He does not report bowel or bladder incontinence. He states he cannot recall how he fell out off of his bed. He denies loss of consciousness, presyncope, dizziness or headache injury. Denies any fevers, chills, fatigue, LIM, palpitations, abdominal pain, N/V/D or changes in bowel or bladder habits. Upon presentation to the hospital the patient was found to have COPD exacerbation, thus the hospitalist team was consulted. HOSPITAL COURSE: During his stay the patient was initially placed on 3L NC, solumedrol 80mg q8H, and lasix 40mg IV q8H. He diuresed well and breathing improved. On 05/11 he was switched to PO prednisone and lasix therapies. His breathing continued to improve and he was cleared by PT as safe for discharge home with a rolling walker for mobility safety measures. On 05/12 patient was seen. He states that he feels his breathing has returned to normal. He has been using 2L NC, at home he is on 2.5L. He was felt to be stable and ready for discharge home with a prednisone taper. The patient states he already has a rolling walker at home given to him by his neighbor. DISCHARGE MEDICATIONS: Please see below. ALLERGIES: Please see below. PHYSICAL EXAMINATION ON DISCHARGE: VITAL SIGNS: Please see below. GENERAL: no acute distress HEENT: PERRLA, no scleral icterus NECK: supple CARDIOVASCULAR EXAMINATION: RRR, no murmurs appreciated RESPIRATORY EXAMINATION: CTA bilat, decreased breath sounds ABDOMINAL EXAMINATION: soft, nontender, nondistended, positive bowel sounds EXTREMITIES: +1 edema to the tibia SKIN: intact NEUROLOGICAL EXAMINATION: CN 2-12 grossly intact PSYCHIATRIC EXAMINATION: appropriate mood and affect LABORATORY DATA: Please see below. IMAGING: CXR - Chronic changes. No definite superimposed acute infiltrate. US - No evidence of DVT in the left lower extremity. There is subcutaneous edema overlying the popliteal fossa. No evidence of deep venous thrombosis in the right lower extremity Pelvic xray - No evidence of fracture or dislocation. Lumbar xray - No gross acute finding. VTE Prophylaxis ordered?: yes DISCHARGE CONDITION: stable DISPOSITION: home with rolling walker ACTIVITY: as tolerated DIET: regular ITEMS TO FOLLOWUP ON OUTPATIENT: 1. COPD exacerbation. DISCHARGE PLAN AND INSTRUCTIONS: 1. f/u Dr Archer 1 week. 2. Prednisone taper 20mg BID x 3 days, then 10mg BID x 4 days, then resume normal 10mg daily dosing as per PCP. TIME SPENT ON DISCHARGE: Greater than 30 minutes. Vital Signs/I&Os Vital Signs Date Time Temp Pulse Resp B/P Pulse Ox O2 Delivery O2 Flow Rate FiO2 05/12/16 14:00 96.0 81 20 108/65 95 Room Air 05/12/16 13:30 2.0 I&O- Last 24 Hours up to 6 AM 05/12/16 06:00 Intake Total 1360 ml Output Total 1630 ml Balance -270 ml Laboratory Data Labs 24H Laboratory Tests 2 05/12/16 05:46: Blood Urea Nitrogen 31H, Creatinine 1.00, Sodium Level 138, Potassium Level 4.0 , Chloride Level 98, Carbon Dioxide Level 32, Calcium Level 8.7L, Aspartate Amino Transf (AST/SGOT) 19, Alanine Aminotransferase (ALT/SGPT) 24, Alkaline Phosphatase 97, Total Bilirubin 0.2, Total Protein 6.0L, Albumin 2.9L, Albumin/ Globulin Ratio 0.94L, Anion Gap 8, White Blood Count 19.4H, Red Blood Count 4.23L, Hemoglobin 12.1L, Hematocrit 37.6L, Mean Corpuscular Volume 89.1, Mean Corpuscular Hemoglobin 28.6, Mean Corpuscular Hemoglobin Concent 32.1, Red Cell Distribution Width 15.5H, Platelet Count 275, Neutrophils (%) (Auto) 91.4H, Lymphocytes (%) (Auto) 2.6L, Monocytes (%) (Auto) 4.5, Eosinophils (%) (Auto) 0.2, Basophils (%) (Auto) 0.4, Neutrophils # (Auto) 17.8H, Lymphocytes # (Auto) 0.7L, Monocytes # (Auto) 0.9H, Eosinophils # (Auto) 0.0, Basophils # (Auto) 0.1 , Glomerular Filtration Rate > 60.0, Large Unclassified Cells # 0.2, Large Unclassified Cells % 0.9, Prothromb Time International Ratio 2.67, Prothrombin Time 28.5H CBC/BMP Laboratory Tests 05/12/16 05:46 Calcium Level 8.7 L, Aspartate Amino Transf (AST/SGOT) 19, Alanine Aminotransferase (ALT/SGPT) 24, Alkaline Phosphatase 97, Total Bilirubin 0.2, Total Protein 6.0 L, Albumin 2.9 L, Red Blood Count 4.23 L, Mean Corpuscular Volume 89.1, Mean Corpuscular Hemoglobin 28.6, Mean Corpuscular Hemoglobin Concent 32.1, Red Cell Distribution Width 15.5 H, Neutrophils (%) (Auto) 91.4 H , Lymphocytes (%) (Auto) 2.6 L, Monocytes (%) (Auto) 4.5, Eosinophils (%) (Auto ) 0.2, Basophils (%) (Auto) 0.4, Neutrophils # (Auto) 17.8 H, Lymphocytes # ( Auto) 0.7 L, Monocytes # (Auto) 0.9 H, Eosinophils # (Auto) 0.0, Basophils # ( Auto) 0.1 Microbiology Microbiology 05/09/16 Influenza Virus Type A Antigen - Final, Complete 05/09/16 Influenza Virus Type B Antigen - Final, Complete Medications Scheduled Atenolol (Atenolol) 25 Mg Tab 25 MG PO DAILY Atorvastatin Calcium (Atorvastatin Calcium) 80 Mg Tab 80 MG PO QHS Esomeprazole Magnesium Trihydr (Nexium) 40 Mg Cap 40 MG PO BID Nitroglycerin (Nitrostat) 0.4 Mg Subl 0.4 MG SL NITRO Prednisone (Prednisone) 10 Mg Tab 10 MG PO DAILY Prednisone (Prednisone) 20 Mg Tab 20 MG PO ASDIRECTED 1 tab twice daily x 3 days, then 1/2 tab twice daily x 4 days, then resume home dose of prednisone. Ranitidine HCl (Ranitidine HCl) 300 Mg Tab 1 TAB PO QHS Salmeterol/Fluticasone (Advair Hfa 230-21 Mcg/Act) 1 Aer Aer 2 PUFF INH BID Spironolactone (Spironolactone) 50 Mg Tab 50 MG PO DAILY Tamsulosin Hydrochloride (Flomax) 0.4 Mg Cap 0.4 MG PO DAILY Tiotropium [employer] Monohydrate (Spiriva Handihaler) 18 Mcg Cap 1 INHALATION INH DAILY Torsemide (Torsemide) 20 Mg Tab 20 MG PO BID Warfarin Sod (Warfarin Sodium) 4 Mg Tab 4 MG PO 4XWK SATURDAY, SATURDAY, SATURDAY, SATURDAY Warfarin Sod (Warfarin Sodium) 6 Mg Tab 6 MG PO 3XW SATURDAY, SATURDAY, SATURDAY Scheduled PRN (Saline Nasal [place]) 0.65 % Spr 2 SPRAYS NA QID PRN PRN NASAL DRYNESS (Omnaris) 50 Mcg/Act Spr 50 MCG NA DAILY PRN PRN ALLERGIES Acetaminophen (Acetaminophen) 325 Mg Tab 650 MG PO Q4H PRN PRN PAIN Albuterol Sulfate (Proair Hfa) 108 Mcg/Act Aer 2 PUFFS INH Q4H PRN PRN SHORTNESS OF BREATH Calcium Carbonate (Tums) 500 Mg Chw 1,000 MG PO PC PRN PRN INDIGESTION Tramadol HCl (Tramadol HCl) 50 Mg Tab 50 MG PO BID PRN PRN PAIN Allergies Coded Allergies: Hydrocodone (Unverified Allergy, Severe, anaphylaxis, 10/13/15) Latex (Verified Allergy, Unknown, 08/05/12) Shellfish Allergy (Verified Allergy, Unknown, 08/05/12) Sulfa Drugs (Verified Allergy, Unknown, 08/05/12) Sulfa Drugs Cross Reactors (Verified Allergy, Unknown, 08/05/12) GME ATTESTATION GME ATTESTATION My preceptor for this patient encounter was physically present in the building during the encounter and was fully available. As needed, all aspects of the patient interview, examination, medical decision making process, and medical care plan development were reviewed and approved by the preceptor. Preceptor is aware and concurs with the plan as stated in the body of this note and will attest to such by his/her cosignature. SAUL JENSEN DO May 12, 2016 15:54
--- NOTE | 2016-05-12 22:49 | ECGEPIP ---
Stationary ECG Study [facility] - ED Test Date: 2016-05-09 Pat Name: FIDEL TORRES Department: Room: - Gender: M Recovery Room Rn: tim : 1945 Requested By: Laurence Rodgers Order Number: [id number] Reading MD: Mike Salazar Measurements Intervals [place] Rate: 87 P: 71 MA: 144 QRS: 35 QRSD: 158 T: 94 QT: 405 QTc: 488 Interpretive Statements ELECTRONIC VENTRICULAR PACEMAKER ABNORMAL RHYTHM ECG Electronically Signed On 05-12-2016 22:49:02 EST by Mike Salazar
--- NOTE | 2016-05-13 13:56 | EDDOCDS ---
Physician Documentation [facility] Name: Davion Murphy Age: 71 yrs Sex: Male : 1945 Arrival Date: 05/09/2016 Time: 10:57 Bed 20 Private MD: Moe Archer MD Disposition: 05/09/16 14:12 Hospitalization ordered by Cornelio Tirado for Inpatient Admission. Preliminary diagnosis is Chronic obstructive pulmonary disease with (acute) exacerbation. - Bed requested for 4 [place]. - Status is Inpatient Admission. mb9 - Condition is Stable. - Problem is new. - Symptoms are unchanged. Historical: - Allergies: Vicodin (Anaphylaxis); SULFA (SULFONAMIDES) (Anaphylaxis); SHELLFISH (Anaphylaxis); Latex (Rash); - Home Meds: 1. Oxygen 2.5 l prn Unknown daily (Last dose: 05/09/2016 11:11) 2. Flomax 0.4 mg Oral cp24 once daily (Last dose: 05/08/2016) 3. atenolol 25 mg Oral tab 1 tab once daily (Last dose: 05/08/2016) 4. Lipitor 80 mg Oral tab 1 tab once daily (Last dose: 05/08/2016) 5. nitroglycerin 0.4 mg SL subl 1 tab every 5 minutes pt reports using medication 4 to 5 days ago. x 3, as needed for chest pain (Last dose: Unknown) 6. spironolactone 50 mg Oral tab 1 tab once daily (Last dose: 05/08/2016) 7. tramadol 50 mg Oral tab 1 tab every 12 hours (Last dose: 05/08/2016) 8. warfarin 5 mg Oral tab 1 tab once daily 5 days a week (Last dose: 05/08/2016) 9. warfarin 2 mg Oral tab 1 tab once daily saturday and saturdays (Last dose: Unknown) 10. acetaminophen 325 mg Oral tab 2 tabs every 6 hours (Last dose: Unknown) 11. Nexium 40 mg Oral cpDR 1 cap 2 times per day (Last dose: 05/08/2016) 12. prednisone 10 mg Oral tab 1.5 tab once daily (Last dose: 05/08/2016) 13. torsemide 20 mg oral tab 1 tab twice a day (Last dose: 05/08/2016) 14. omnaris 50 mcg 2 puff daily (Last dose: 05/08/2016) 15. Advair HFA 230-21 mcg/actuation inhalation HFAA 2 puffs 2 times per day (Last dose: 05/08/2016) 16. ProAir HFA 90 mcg/actuation inhalation HFAA 2 puffs every 4 hours (Last dose: 05/08/2016) 17. saline nasal spray 0.65% 2 spray as needed (Last dose: Unknown) 18. Spiriva with HandiHaler 18 mcg Inhl CpDv 1 cap once daily (Last dose: Unknown) - PMHx: Vegetation of ICD lead; Nonbacterial thrombotic endocarditis; Myocardial infarction; Kidney stones; Hypertension; Hypercholesterolemia; Diverticulitis; COPD; Chronic Low Back Pain; CHF; Cardiomyopathy; CAD; BPH; Murphy's Esophagus; stated "clot" on "leads"; - PSHx: ICD placement; Kidney stone removal; Inguinal hernia; - Social history: Smoking status: Patient uses tobacco products, light tobacco smoker. Patient/guardian denies using alcohol, street drugs, No barriers to communication noted, The patient speaks fluent Samoan, Speaks appropriately for age. - Family history: No immediate family members are acutely ill. - : The pt / caregiver states he / she is on anticoagulants: coumadin. Home medication list is obtained from the patient. - Exposure Risk Screening:: None identified. Vital Signs: 05/09 10:59 BP 106 / 60; Pulse 78; Resp 24 S; Temp 97.1; Pulse Ox 94% on R/A; Weight 81.65 kg / dd6 180.01 lbs (R); Height 5 ft. 9 in. (175.26 cm) (R); 11:13 BP 133 / 71 (auto/); mb9 11:15 Pulse 84 MON; Pulse Ox 92% on 4 lpm NC; mb9 11:19 BP 123 / 58 (auto/); mb9 11:20 Pulse 84 MON; Pulse Ox 93% on 4 lpm NC; mb9 11:34 BP 123 / 59 (auto/); mb9 11:35 Pulse 78 MON; Pulse Ox 93% on 4 lpm NC; mb9 12:49 BP 120 / 62 (auto/); mb9 12:50 Pulse 74 MON; Pulse Ox 99% on 4 lpm NC; mb9 13:04 BP 132 / 60 (auto/); mb9 13:05 Pulse 82 MON; Pulse Ox 93% on 4 lpm NC; mb9 13:44 BP 141 / 69 (auto/); mb9 13:45 Pulse 72 MON; Pulse Ox 98% on 4 lpm NC; mb9 13:59 BP 129 / 76 (auto/); mb9 13:59 Pulse 84 MON; Pulse Ox 89% on 4 lpm NC; mb9 14:14 BP 128 / 59 (auto/); mb9 14:14 Pulse 84 MON; Pulse Ox 88% on 4 lpm NC; mb9 14:29 BP 130 / 61 (auto/); mb9 14:29 Pulse 78 MON; Pulse Ox 90% on 4 lpm NC; mb9 14:43 Pulse 82 MON; mb9 14:44 BP 123 / 60 (auto/); mb9 14:54 BP 112 / 53 (auto/); mb9 14:57 BP 112 / 53 LA Supine (auto/reg); Pulse 78 MON; Resp 21; Temp 96.8; Pulse Ox 94% on 4 mb9 lpm NC; Pain 3/10; 15:28 Pain 2/10; mb9 15:28 Pain 2/10; mb9 10:59 Body Mass Index 26.58 (81.65 kg, 175.26 cm) dd6 MDM: 11:06 Floor Service Worker Spring/Pulse Ox/q 30 min VS ordered. sd1 11:06 IV Saline Lock ordered. sd1 11:06 Rhythm Strip to chart ordered. sd1 11:06 Undress patient appropriately for examination ordered. sd1 11:06 ECG WITH READING ER PHYS+CARDIAG ordered. EDMS 11:07 portable chest Ordered. EDMS 11:07 B-Type Natiuretic Peptide Ordered. EDMS 11:07 Basic Metabolic Profile Ordered. EDMS 11:07 CBC with Diff Ordered. EDMS 11:07 Cardiac Injury Profile Ordered. EDMS 11:07 Prothrombin Time Profile\\E\\INR Ordered. EDMS 11:07 Troponin Ordered. EDMS 12:00 [facility] Payment Agreement was scanned into [employer] and attached to record. mm15 12:17 Albuterol-Ipratropium 1 neb Nebulizer every 20 minutes x3 ordered. br1 12:17 Solu-MEDROL 125 mg IVP once ordered. br1 12:17 Call Respiratory ordered. br1 12:19 Spine. Lumbosacral, Complete Ordered. EDMS 12:19 Pelvis Ordered. EDMS 12:19 Ultrasound Bilateral LE R/O DVT Ordered. EDMS 12:23 Call Respiratory complete. jrd 12:25 -Influenza A&B Rapid Antigen - Nose Ordered. EDMS 12:34 Financial registration complete. mm15 12:38 Solu-MEDROL 125 mg IVP once ordered. mb9 13:07 Basic Metabolic Profile Reviewed. br1 13:07 CBC with Diff Reviewed. br1 13:07 Prothrombin Time Profile\\E\\INR Reviewed. br1 13:07 Cardiac Injury Profile Reviewed. br1 13:07 Troponin Reviewed. br1 13:07 portable chest Reviewed. br1 13:08 B-Type Natiuretic Peptide Reviewed. br1 13:08 -Influenza A&B Rapid Antigen - Nose Reviewed. br1 13:22 traMADol 50 mg PO once; prn ordered. br1 13:56 Misc. Nursing Order ordered. br1 13:58 BED REQUEST+ADM ordered. EDMS 14:19 Admission / Observation Status ordered. EDMS 14:21 Acetaminophen Tablet 650 mg PO once ordered. br1 15:35 LOW FAT LOW CHOLESTEROL DIET ordered. EDMS 15:36 MRI Spine, L.S. without con Ordered. EDMS 15:38 SPUTUM CULTURE AND GRAM STAIN Ordered. EDMS 15:39 CARDIAC MARKER PANEL Ordered. EDMS 01 08:18 T-Sheet-- Draft Copy was scanned into Marquee and attached to record. gb Administered Medications: 05/09 12:30 Drug: Albuterol-Ipratropium 1 neb [ipratropium-albuterol 0.5 mg-3 mg(2.5 mg base)/3 mL kt1 nebulization soln (1 neb)] Route: Nebulizer; 12:40 Follow up: Response: Nebulizer completed kt1 12:38 Drug: Solu-MEDROL 125 mg [Solu-Medrol 500 mg intravenous solution (125 mg)] Route: IVP; mb9 Site: right antecubital; 12:44 Drug: Albuterol-Ipratropium 1 neb [ipratropium-albuterol 0.5 mg-3 mg(2.5 mg base)/3 mL kt1 nebulization soln (1 neb)] Route: Nebulizer; 12:49 Follow up: Response: Nebulizer completed kt1 12:56 Follow up: Response: Nebulizer completed kt1 13:00 Drug: Albuterol-Ipratropium 1 neb [ipratropium-albuterol 0.5 mg-3 mg(2.5 mg base)/3 mL kt1 nebulization soln (1 neb)] Route: Nebulizer; 14:05 Drug: traMADol 50 mg [tramadol 50 mg tablet (1 tabs)] Route: PO; mb9 15:28 Follow up: Pain 2/10 Adult; Response: Confirmed pt not driving.; Pain is decreased mb9 14:42 Drug: Acetaminophen 650 mg [acetaminophen 325 mg tablet (2 tabs)] Route: PO; mb9 15:28 Follow up: Pain 2/10 Adult; Response: Pain is decreased mb9 Signatures: Dispatcher [employer] EDMS Laurence Rodgers MD MD sd1 Soumya Ace, Filler Leaf Cutter Long Unit lbd Kena Mahmood, Reg Reg gb Joel Jha MD MD br1 Julia Beltrán, RN RN ttb Mary France mm15 Moe Giles, SYNTHETIC FILAMENT SPINNER SYNTHETIC FILAMENT SPINNER d Thomas Biswas RN RN mb9 Korina Ng kt1 The chart was reviewed and I authenticate all verbal orders and agree with the evaluation and treatment provided.Attachments: 12:00 [facility] Payment Agreement mm15 05/11 08:18 T-Sheet-- Draft Copy gb Chart Complete [facility]
--- NOTE | 2016-05-13 13:56 | EDDOCDS ---
Nurse's Notes [facility] Name: Davion Murphy Age: 71 yrs Sex: Male : 1945 Arrival Date: 05/09/2016 Time: 10:57 Bed 20 Private MD: Moe Archer MD Diagnosis: Chronic obstructive pulmonary disease with (acute) exacerbation Presentation: 05/09 11:00 Red Flag criteria, patient assessed and taken directly to a bed. ttb 11:07 Presenting complaint: Patient states: back and chest pain started 2 days ago. DC'd from ttb [facility] on 05/06/16 -- pt fell out of bed when he got home....back pain. Pt unable to get out of WC wihtout assist. Aspirin was not taken prior to arrival. Adult Sepsis Screening: The patient does not have new or worsening altered mentation. Patient has a respiratory rate of greater than or equal to 22 (1 point). Systolic blood pressure is greater than 100. Patient has a qSOFA score of 0- Negative Sepsis Screen. Suicide/Homicide risk assessment- the patient denies having any suicidal and/or homicidal ideations and does not present with any other emotional, behavioral or mental health complaints. Status: Patient is not a vice president consulting services or dependent. Transition of care: patient was not received from another setting of care. 11:07 Acuity: BENITO Level 3 ttb 11:07 Method Of Arrival: Walkin/Carried/Asstd ttb Triage Assessment: 11:16 General: Appears ill, obese, uncomfortable, well nourished, Behavior is appropriate for ttb age, cooperative, pleasant. Pain: Location: chest 10/10. Neurological: Level of Consciousness is awake, alert, Oriented to person, place, time, Weakness Speech is normal, Facial symmetry appears normal. Cardiovascular: Chest pain is described as Pain is 10 out of 10 on a pain scale. radiates from lower abd to chest episodes are continuous began 2-3 days ago. Respiratory: Airway is patent Respiratory effort is even, shallow, Respiratory pattern is regular, tachypnea Reports shortness of breath at rest on exertion the patient has moderate shortness of breath. Derm: Skin is normal. Injury Description: No known injury. pt states he fell multiple times. Historical: - Allergies: Vicodin (Anaphylaxis); SULFA (SULFONAMIDES) (Anaphylaxis); SHELLFISH (Anaphylaxis); Latex (Rash); - Home Meds: 1. Oxygen 2.5 l prn Unknown daily (Last dose: 05/09/2016 11:11) 2. Flomax 0.4 mg Oral cp24 once daily (Last dose: 05/08/2016) 3. atenolol 25 mg Oral tab 1 tab once daily (Last dose: 05/08/2016) 4. Lipitor 80 mg Oral tab 1 tab once daily (Last dose: 05/08/2016) 5. nitroglycerin 0.4 mg SL subl 1 tab every 5 minutes pt reports using medication 4 to 5 days ago. x 3, as needed for chest pain (Last dose: Unknown) 6. spironolactone 50 mg Oral tab 1 tab once daily (Last dose: 05/08/2016) 7. tramadol 50 mg Oral tab 1 tab every 12 hours (Last dose: 05/08/2016) 8. warfarin 5 mg Oral tab 1 tab once daily 5 days a week (Last dose: 05/08/2016) 9. warfarin 2 mg Oral tab 1 tab once daily saturday and saturdays (Last dose: Unknown) 10. acetaminophen 325 mg Oral tab 2 tabs every 6 hours (Last dose: Unknown) 11. Nexium 40 mg Oral cpDR 1 cap 2 times per day (Last dose: 05/08/2016) 12. prednisone 10 mg Oral tab 1.5 tab once daily (Last dose: 05/08/2016) 13. torsemide 20 mg oral tab 1 tab twice a day (Last dose: 05/08/2016) 14. omnaris 50 mcg 2 puff daily (Last dose: 05/08/2016) 15. Advair HFA 230-21 mcg/actuation inhalation HFAA 2 puffs 2 times per day (Last dose: 05/08/2016) 16. ProAir HFA 90 mcg/actuation inhalation HFAA 2 puffs every 4 hours (Last dose: 05/08/2016) 17. saline nasal spray 0.65% 2 spray as needed (Last dose: Unknown) 18. Spiriva with HandiHaler 18 mcg Inhl CpDv 1 cap once daily (Last dose: Unknown) - PMHx: Vegetation of ICD lead; Nonbacterial thrombotic endocarditis; Myocardial infarction; Kidney stones; Hypertension; Hypercholesterolemia; Diverticulitis; COPD; Chronic Low Back Pain; CHF; Cardiomyopathy; CAD; BPH; Murphy's Esophagus; stated "clot" on "leads"; - PSHx: ICD placement; Kidney stone removal; Inguinal hernia; - Social history: Smoking status: Patient uses tobacco products, light tobacco smoker. Patient/guardian denies using alcohol, street drugs, No barriers to communication noted, The patient speaks fluent Cook Islander, Speaks appropriately for age. - Family history: No immediate family members are acutely ill. - : The pt / caregiver states he / she is on anticoagulants: coumadin. Home medication list is obtained from the patient. - Exposure Risk Screening:: None identified. Screenin:25 Screening information is obtained from friend/pt/prior records. Fall risk: At risk due ttb to apparent cognitive impairment, gait disturbance, immobility, injury, prior history of falls, The following interventions are performed due to a positive Fall Risk Screen: Fall Risk is added to Special Handling on the patient Summary Screen. A Fall Risk Bracelet was applied to the patient. Side Rails are placed in the up position. A Call Freeman is given with instruction to call for help when getting out of bed. Assistance ADL's: Requires assistance with meal preparation, this assistance is provided by bathing, assistance is provided by Other friend : catina, dressing, assistance is provided by toileting, assistance is provided by ambulation, assistance is provided by housework, assistance is provided by medication administration, assistance is provided by. Advance Directives: Currently, there is a health care proxy, Catina Cerrato : friend : [phone]. There is an active DNR order but there is no copy available at this time. 14:57 Abuse/DV Screen: The patient / caregiver reports he/she is: not in a situation that mb9 causes fear, pain or injury. Nutritional screening: No deficits noted. home support is adequate. Assessment: 12:08 General: Appears unkempt, Behavior is appropriate for age, cooperative. Neurological: mb9 Level of Consciousness is awake, alert, Oriented to person, place, time. Cardiovascular: Rhythm is sinus rhythm with PACs. Cardiovascular: Edema is 3+ to left ankle, left foot, right ankle and right foot. Respiratory: Airway is patent Respiratory effort is even, labored, Respiratory pattern is regular, symmetrical, Breath sounds are diminished bilaterally. Breath sounds with wheezes bilaterally. 13:32 General: pt in ultrasound. mb9 13:44 Reassessment: Patient states symptoms have not improved. General: Appears. General: mb9 Appears in no apparent distress, Behavior is appropriate for age, cooperative. Pain: Location: low back area Pain currently is 8 out of 10 on a pain scale. Respiratory: Airway is patent Respiratory effort is even, unlabored. 14:57 Reassessment: Patient states symptoms have improved. Adult Sepsis Screening: The mb9 patient does not have new or worsening altered mentation. Patient's respiratory rate is less than 22. Systolic blood pressure is greater than 100. Patient has a qSOFA score of 0- Negative Sepsis Screen. General: Appears unkempt, Behavior is appropriate for age, cooperative. Pain: Location: low back area Pain currently is 2 out of 10 on a pain scale. Respiratory: Airway is patent Respiratory effort is even, unlabored, Breath sounds with wheezes in right posterior upper lobe, right posterior middle lobe and right posterior lower lobe. Vital Signs: 10:59 BP 106 / 60; Pulse 78; Resp 24 S; Temp 97.1; Pulse Ox 94% on R/A; Weight 81.65 kg (R); dd6 Height 5 ft. 9 in. (175.26 cm) (R); 11:13 BP 133 / 71 (auto/); mb9 11:15 Pulse 84 MON; Pulse Ox 92% on 4 lpm NC; mb9 11:19 BP 123 / 58 (auto/); mb9 11:20 Pulse 84 MON; Pulse Ox 93% on 4 lpm NC; mb9 11:34 BP 123 / 59 (auto/); mb9 11:35 Pulse 78 MON; Pulse Ox 93% on 4 lpm NC; mb9 12:49 BP 120 / 62 (auto/); mb9 12:50 Pulse 74 MON; Pulse Ox 99% on 4 lpm NC; mb9 13:04 BP 132 / 60 (auto/); mb9 13:05 Pulse 82 MON; Pulse Ox 93% on 4 lpm NC; mb9 13:44 BP 141 / 69 (auto/); mb9 13:45 Pulse 72 MON; Pulse Ox 98% on 4 lpm NC; mb9 13:59 BP 129 / 76 (auto/); mb9 13:59 Pulse 84 MON; Pulse Ox 89% on 4 lpm NC; mb9 14:14 BP 128 / 59 (auto/); mb9 14:14 Pulse 84 MON; Pulse Ox 88% on 4 lpm NC; mb9 14:29 BP 130 / 61 (auto/); mb9 14:29 Pulse 78 MON; Pulse Ox 90% on 4 lpm NC; mb9 14:43 Pulse 82 MON; mb9 14:44 BP 123 / 60 (auto/); mb9 14:54 BP 112 / 53 (auto/); mb9 14:57 BP 112 / 53 LA Supine (auto/reg); Pulse 78 MON; Resp 21; Temp 96.8; Pulse Ox 94% on 4 mb9 lpm NC; Pain 3/10; 15:28 Pain 2/10; mb9 15:28 Pain 2/10; mb9 10:59 Body Mass Index 26.58 (81.65 kg, 175.26 cm) dd6 Vitals: 10:59 Log In Time: May 09, 2016 at 10:57. RN notified that patient meets Red Flag dd6 criteria. ED Course: 10:58 Patient visited by Naresh Delacruz PCA. dd6 10:58 Patient moved to Waiting dd6 10:59 Moe Archer is Private Physician. dd6 11:04 Patient moved to PR2 / 26 jrd 11:05 Patient moved to 20 mlb1 11:09 Triage Initiated ttb 11:14 EKG done. (by ED staff). Reviewed by Laurence Rodgers MD. jrd 11:19 Patient visited by Moe Giles PCA. jrd 11:21 Patient visited by Julia Beltrán RN. ttb 11:25 executive team leader on. Pulse ox on. NIBP on. ttb 11:27 Patient visited by Julia Beltrán RN. ttb 11:55 Patient visited by Michael Seals PCA. jlf 12:00 [facility] Payment Agreement was scanned into [employer] and attached to record. mm15 12:05 Joel Jha MD is Attending Physician. br1 12:16 Patient visited by Joel Jha MD. br1 12:27 Troponin Sent. mb9 12:27 Prothrombin Time Profile\\E\\INR Sent. mb9 12:27 Cardiac Injury Profile Sent. mb9 12:27 CBC with Diff Sent. mb9 12:27 Basic Metabolic Profile Sent. mb9 12:27 B-Type Natiuretic Peptide Sent. mb9 12:37 portable chest Returned. EDMS 12:38 -Influenza A&B Rapid Antigen - Nose Sent. mb9 12:39 Inserted saline lock: 18 gauge in right antecubital area and blood collected. The mb9 patient tolerated the procedure well. 12:41 Patient moved to Ultrasound hgl 12:43 Patient moved to 20 hgl 12:48 Patient visited by Dorian Mendes. jml1 13:18 Patient moved to Ultrasound hgl 13:37 Patient moved to 20 hgl 13:49 Patient visited by Thomas Biswas RN. mb9 14:08 Pelvis Returned. EDMS 14:08 Spine. Lumbosacral, Complete Returned. EDMS 14:12 Cornelio Tirado DO is Hospitalizing Provider. br1 14:56 Ultrasound Bilateral LE R/O DVT Returned. EDMS 14:57 The patient / caregiver is instructed regarding the plan of care and ED course. mb9 14:57 No procedures done that require assistance. mb9 05/11 08:18 T-Sheet-- Draft Copy was scanned into [employer] and attached to record. gb Administered Medications: 04 12:30 Drug: Albuterol-Ipratropium 1 neb [ipratropium-albuterol 0.5 mg-3 mg(2.5 mg base)/3 mL kt1 nebulization soln (1 neb)] Route: Nebulizer; 12:40 Follow up: Response: Nebulizer completed kt1 12:38 Drug: Solu-MEDROL 125 mg [Solu-Medrol 500 mg intravenous solution (125 mg)] Route: IVP; mb9 Site: right antecubital; 12:44 Drug: Albuterol-Ipratropium 1 neb [ipratropium-albuterol 0.5 mg-3 mg(2.5 mg base)/3 mL kt1 nebulization soln (1 neb)] Route: Nebulizer; 12:49 Follow up: Response: Nebulizer completed kt1 12:56 Follow up: Response: Nebulizer completed kt1 13:00 Drug: Albuterol-Ipratropium 1 neb [ipratropium-albuterol 0.5 mg-3 mg(2.5 mg base)/3 mL kt1 nebulization soln (1 neb)] Route: Nebulizer; 14:05 Drug: traMADol 50 mg [tramadol 50 mg tablet (1 tabs)] Route: PO; mb9 15:28 Follow up: Pain 2/10 Adult; Response: Confirmed pt not driving.; Pain is decreased mb9 14:42 Drug: Acetaminophen 650 mg [acetaminophen 325 mg tablet (2 tabs)] Route: PO; mb9 15:28 Follow up: Pain 2/10 Adult; Response: Pain is decreased mb9 RT: 12:34 Initial Med Neb Given as ordered Patient was instructed and evaluated on procedure. kt1 12:44 Subsequent Med Neb Given as ordered Patient tolerated procedure well without adverse kt1 effect. 12:55 Subsequent Med Neb Given as ordered. kt1 Order Results: Lab Order: B-Type Natiuretic Peptide; SPEC'M 05/09/16 12:24 Test: BRAIN NATRIURETIC PEPTIDE; Value: 12.8; Range: <100; Units: PG/ML; Status: F Lab Order: Basic Metabolic Profile; SPEC'M 05/09/16 12:24 Test: GLUCOSE, FASTING; Value: 91; Range: 83-110; Units: MG/DL; Status: F Test: BLOOD UREA NITROGEN; Value: 22; Range: 7-18; Abnormal: Above high normal; Units: MG/DL; Status: F Test: CREATININE FOR GFR; Value: 1.05; Range: 0.70-1.30; Units: MG/DL; Status: F Test: GLOMERULAR FILTRATION RATE; Value: > 60.0; Range: >42; Status: F Test: SODIUM LEVEL; Value: 139; Range: 136-145; Units: MEQ/L; Status: F Test: POTASSIUM SERUM; Value: 3.7; Range: 3.5-5.1; Units: MEQ/L; Status: F Test: CHLORIDE LEVEL; Value: 96; Range: 98-107; Abnormal: Below low normal; Units: MEQ/L; Status: F Test: CARBON DIOXIDE LEVEL; Value: 36; Range: 21-32; Abnormal: Above high normal; Units: MEQ/L; Status: F Test: ANION GAP; Value: 7; Range: 8-16; Abnormal: Below low normal; Units: MEQ/L; Status: F Test: CALCIUM LEVEL; Value: 8.6; Range: 8.8-10.2; Abnormal: Below low normal; Units: MG/DL; Status: F Test Note: ; Units are mL/min/1.73 m2 Chronic Kidney Disease Staging per NKF: Stage I & II GFR >=60 Normal to Mildly Decreased Stage III GFR 30-59 Moderately Decreased Stage IV GFR 15-29 Severely Decreased Stage V GFR <15 Very Little GFR Left ESRD GFR <15 on [employer] Lab Order: CBC with Diff; SPEC'M 05/09/16 12:24 Test: WHITE BLOOD COUNT; Value: 11.0; Range: 4.0-10.0; Abnormal: Above high normal; Units: K/mm3; Status: F Test: RED BLOOD COUNT; Value: 4.13; Range: 4.30-6.10; Abnormal: Below low normal; Units: M/mm3; Status: F Test: HEMOGLOBIN; Value: 11.9; Range: 14.0-18.0; Abnormal: Below low normal; Units: g/dl; Status: F Test: HEMATOCRIT; Value: 36.1; Range: 42.0-52.0; Abnormal: Below low normal; Units: %; Status: F Test: MEAN CORPUSCULAR VOLUME; Value: 87.4; Range: 80.0-96.0; Units: fl; Status: F Test: MEAN CORPUSCULAR HEMOGLOBIN; Value: 28.8; Range: 27.0-33.0; Units: pg; Status: F Test: MEAN CORPUSCULAR HGB CONC; Value: 33.0; Range: 32.0-36.5; Units: g/dl; Status: F Test: RED CELL DISTRIBUTION WIDTH; Value: 14.2; Range: 11.5-14.5; Units: %; Status: F Test: PLATELET COUNT, AUTOMATED; Value: 272; Range: 150-450; Units: k/mm3; Status: F Test: NEUTROPHILS %; Value: 76.7; Range: 36.0-66.0; Abnormal: Above high normal; Units: %; Status: F Test: LYMPH %; Value: 12.9; Range: 24.0-44.0; Abnormal: Below low normal; Units: %; Status: F Test: MONO %; Value: 6.8; Range: 0.0-5.0; Abnormal: Above high normal; Units: %; Status: F Test: EOS %; Value: 1.1; Range: 0.0-3.0; Units: %; Status: F Test: BASO %; Value: 0.4; Range: 0.0-1.0; Units: %; Status: F Test: LARGE UNSTAINED CELL %; Value: 2.1; Range: 0.0-4.0; Units: %; Status: F Test: NEUTROPHILS #; Value: 8.5; Range: 1.8-7.7; Abnormal: Above high normal; Units: K/mm3; Status: F Test: LYMPH #; Value: 1.4; Range: 1.5-4.5; Abnormal: Below low normal; Units: K/mm3; Status: F Test: MONO #; Value: 0.8; Range: 0.0-0.8; Units: K/mm3; Status: F Test: EOS #; Value: 0.1; Range: 0.0-0.50; Units: K/mm3; Status: F Test: BASO #; Value: 0.0; Range: 0.0-0.2; Units: K/mm3; Status: F Test: LARGE UNSTAINED CELL #; Value: 0.2; Range: 0.0-0.4; Units: K/mm3; Status: F Lab Order: Cardiac Injury Profile; SPEC'M 05/09/16 12:24 Test: CPK CREATINE PHOSPHOKINASE; Value: 122; Range: 39-308; Units: U/L; Status: F Test: CK-MB VALUE MASS; Value: 1.4; Range: 0.0-3.6; Units: NG/ML; Status: F Test: MB/CK RELATIVE INDEX; Value: 1.14; Range: < OR =4; Status: F Test Note: ; DIAGNOSIS CRITERIA MMB ng/ml Relative Index (RI) NON-AMI < or = 5 N/A GRIFFITHS ZONE > 5 < or = 4 AMI > 5 > 4 Lab Order: Prothrombin Time Profile\\E\\INR; SPEC'M 05/09/16 12:24 Test: PROTHROMBIN TIME; Value: 23.4; Range: 12.3-14.5; Abnormal: Above high normal; Units: SECONDS; Status: F Test: INR; Value: 2.07; Status: F Test Note: ; THERAPUTIC HUMAN INR VALUES INDICATIONS NORMAL RANGES PROPHYLAXIS/TREATMENT OF: VENOUS THROMBOSIS 2.0-3.0 PULMONARY EMBOLISM 2.0-3.0 PREVENTION OF SYSTEMIC EMBOLISM FROM: TISSUE HEART VALVES 2.0-3.0 ACUTE MYOCARDIAL INFARCTION 2.0-3.0 VALVULAR HEART DISEASE 2.0-3.0 ATRIAL FIBRILLATION 2.0-3.0 MECHANICAL VALVES(HIGH RISK) 2.5-3.5 RECURRENT MYOCARDIAL INFARCTION 2.5-3.5 Lab Order: Troponin; SPEC'M 05/09/16 12:24 Test: TROPONIN I; Value: < 0.02; Range: < 0.10; Units: NG/ML; Status: F Test Note: ; Troponin I Reference Interval for [employer] LOCI: 99th Percentile= 0.00-0.045 ng/ml Risk Stratification: <= 0.10 ng/ml Decreased Risk for Adverse Clinical Events. 0.10-1.50 ng/ml Increased Risk for Adverse Clinical Events. Evaluation of additional criterion and/or repeat testing in 2-6 hours is suggested to rule out myocardial damage. >= 1.50 ng/ml Indicative of Myocardial Injury. Lab Order: -Influenza A&B Rapid Antigen - Nose; SPEC'M 05/09/16 12:37 Test: INFLUENZA A RAPID SCR by ICA; Value: INFLUENZA A RESULTS NEGATIVE; Status: F Test: INFLUENZA A RAPID SCR by ICA; Value: Comments:; Status: F Test: INFLUENZA B RAPID SCR by ICA; Value: INFLUENZA B RESULTS NEGATIVE; Status: F Test Note: ; The Influenza test is a direct rapid immunoassay for the qualitative detection of Influenza viral antigen. Cell culture (Viral Culture) testing should be considered to confirm NEGATIVE results and to assist in detecting other viruses that can provide similar clinical symptoms. Please contact the lab within 24 hours ([phone]) if confirmatory testing is desired. Radiology Order: portable chest Test: portable chest REASON FOR EXAMINATION: Chest Pain; ; SINGLE VIEW CHEST:; ; AP portable view of the chest is performed and compared to a prior study of; 02/01/2016.; ; Diffuse interstitial fibrosis is stable. No definite superimposed acute; infiltrate is seen. Heart is normal in size. There is some calcification and; ectasia of the thoracic aorta. Pacemaker is unchanged.; ; IMPRESSION:; Chronic changes. No definite superimposed acute infiltrate.; ; ; ; Unreviewed; Radiology Order: Spine. Lumbosacral, Complete Test: Spine. Lumbosacral, Complete REASON FOR EXAMINATION: Trauma; ; AP LUMBAR SPINE:; ; AP view of the lumbar spine are performed. The patient refused the remaining; portion of the lumbosacral spine series.; ; Comparing to the prior study of 03/17/2013, there are diffuse degenerative; changes. No gross acute fracture is seen. There is curvature toward the right.; The posterior elements appear intact.; ; IMPRESSION:; No gross acute finding.; ; ; ; Unreviewed; Radiology Order: Pelvis Test: Pelvis REASON FOR EXAMINATION: Trauma; ; PELVIS:; ; AP view of the pelvis is performed. There is no evidence of acute fracture or; dislocation. There appear to be mild degenerative changes at the hip joints.; ; IMPRESSION:; No evidence of fracture or dislocation.; ; ; ; Unreviewed; Radiology Order: Ultrasound Bilateral LE R/O DVT Test: Ultrasound Bilateral LE R/O DVT REASON FOR EXAMINATION: Deformity/Swelling; BILATERAL LOWER EXTREMITY VENOUS DOPPLER: 05/09/2016; ; INDICATION: deformity and swelling.; ; COMPARISON: Bilateral lower extremity venous Doppler 04/25/2016.; ; RIGHT LOWER EXTREMITY VENOUS DOPPLER:; ; TECHNIQUE: Color-flow Doppler spectral wave Doppler and griffiths-scale imaging used; to evaluate the deep right lower extremity veins at common femoral superficial; femoral popliteal venous levels.; ; FINDINGS: The midportion of right superficial femoral vein is duplicated and; paten. There is no evidence of deep venous thrombosis within the right lower; extremity veins at the above-stated levels. There is normal response to; augmentation of flow.; ; Subcutaneous edema is seen overlying the popliteal fossa.; ; IMPRESSION:; No evidence of deep venous thrombosis in the right lower extremity; ; LEFT LOWER EXTREMITY VENOUS DOPPLER:; ; TECHNIQUE: Color-flow Doppler spectral wave and griffiths-scale imaging were used to; evaluate the lower extremity vein, common femoral, superficial femoral, and; popliteal venous levels.; ; FINDINGS:; There is normal compressibility of veins at the above-stated levels. There is; normal response to augmentation of flow. The profunda femoris vein is also; patent.; ; There is subcutaneous edema overlying the popliteal fossa.; ; IMPRESSION:; No evidence of DVT in the left lower extremity.; There is subcutaneous edema overlying the popliteal fossa.; ; ; ; ; ; Unreviewed; Outcome: 14:12 Decision to Hospitalize by Provider. br1 14:57 Discharge Assessment: patient administered narcotics - yes. Patient was admitted to the [address] or transferred to another facility. The following High Risk Discharge criteria are identified: None. Admitted to Med/Surg accompanied by tech. Condition: good Condition: stable Condition: improved. Ultrasound Study completed. Property :Personal belongings accompany Pt. 15:49 Patient left the ED. [facility] Signatures: Dispatcher [employer] EDMS Kena Mahmood, Reg Reg gb Micah, Thomas Roberto, RN RN mlb1 Korina Ng kt1 Joel Jha MD MD br1 Naresh Delacruz, SUPPLY ASSISTANT SUPPLY ASSISTANT dd6 Dorian Mendes jml1 Mariann, Julia Rodriguez, OLYD RN ttb Mary France mm15 Michael Seals, SUPPLY ASSISTANT SUPPLY ASSISTANT jlf Moe Giles, SUPPLY ASSISTANT SUPPLY ASSISTANT jrd Thomas Biswas,RN RN mb9 Corrections: (The following items were deleted from the chart) 11:19 11:18 EKG done. (by ED staff). Reviewed by Laurence dumont jrd 15:02 13:05 Pulse 82bpm; Monitor; Pulse Ox 93%; mb9 mb9 15:02 12:50 Pulse 74bpm; Monitor; Pulse Ox 99%; mb9 mb9 15:02 14:29 Pulse 78bpm; Monitor; Pulse Ox 90%; mb9 mb9 15:02 14:14 Pulse 84bpm; Monitor; Pulse Ox 88%; mb9 mb9 15:02 13:59 Pulse 84bpm; Monitor; Pulse Ox 89%; mb9 mb9 15:02 13:45 Pulse 72bpm; Monitor; Pulse Ox 98%; mb9 mb9 15:02 14:57 BP 112 / 53 Supine Auto L Arm Regular; Pulse 78bpm; MonitorResp 21bpm; Pulse Ox mb9 94%; Temp 96.8F; Pain 3/10; mb9 Chart Complete MTDD
--- NOTE | 2016-05-13 13:56 | EDDOCDS ---
Physician Documentation [facility] Name: Davion Murphy Age: 71 yrs Sex: Male : 1945 Arrival Date: 05/09/2016 Time: 10:57 Bed 20 Private MD: Moe Archer MD Disposition: 05/09/16 14:12 Hospitalization ordered by Cornelio Tirado for Inpatient Admission. Preliminary diagnosis is Chronic obstructive pulmonary disease with (acute) exacerbation. - Bed requested for 4 [place]. - Status is Inpatient Admission. mb9 - Condition is Stable. - Problem is new. - Symptoms are unchanged. Historical: - Allergies: Vicodin (Anaphylaxis); SULFA (SULFONAMIDES) (Anaphylaxis); SHELLFISH (Anaphylaxis); Latex (Rash); - Home Meds: 1. Oxygen 2.5 l prn Unknown daily (Last dose: 05/09/2016 11:11) 2. Flomax 0.4 mg Oral cp24 once daily (Last dose: 05/08/2016) 3. atenolol 25 mg Oral tab 1 tab once daily (Last dose: 05/08/2016) 4. Lipitor 80 mg Oral tab 1 tab once daily (Last dose: 05/08/2016) 5. nitroglycerin 0.4 mg SL subl 1 tab every 5 minutes pt reports using medication 4 to 5 days ago. x 3, as needed for chest pain (Last dose: Unknown) 6. spironolactone 50 mg Oral tab 1 tab once daily (Last dose: 05/08/2016) 7. tramadol 50 mg Oral tab 1 tab every 12 hours (Last dose: 05/08/2016) 8. warfarin 5 mg Oral tab 1 tab once daily 5 days a week (Last dose: 05/08/2016) 9. warfarin 2 mg Oral tab 1 tab once daily saturday and saturdays (Last dose: Unknown) 10. acetaminophen 325 mg Oral tab 2 tabs every 6 hours (Last dose: Unknown) 11. Nexium 40 mg Oral cpDR 1 cap 2 times per day (Last dose: 05/08/2016) 12. prednisone 10 mg Oral tab 1.5 tab once daily (Last dose: 05/08/2016) 13. torsemide 20 mg oral tab 1 tab twice a day (Last dose: 05/08/2016) 14. omnaris 50 mcg 2 puff daily (Last dose: 05/08/2016) 15. Advair HFA 230-21 mcg/actuation inhalation HFAA 2 puffs 2 times per day (Last dose: 05/08/2016) 16. ProAir HFA 90 mcg/actuation inhalation HFAA 2 puffs every 4 hours (Last dose: 05/08/2016) 17. saline nasal spray 0.65% 2 spray as needed (Last dose: Unknown) 18. Spiriva with HandiHaler 18 mcg Inhl CpDv 1 cap once daily (Last dose: Unknown) - PMHx: Vegetation of ICD lead; Nonbacterial thrombotic endocarditis; Myocardial infarction; Kidney stones; Hypertension; Hypercholesterolemia; Diverticulitis; COPD; Chronic Low Back Pain; CHF; Cardiomyopathy; CAD; BPH; Murphy's Esophagus; stated "clot" on "leads"; - PSHx: ICD placement; Kidney stone removal; Inguinal hernia; - Social history: Smoking status: Patient uses tobacco products, light tobacco smoker. Patient/guardian denies using alcohol, street drugs, No barriers to communication noted, The patient speaks fluent Icelandic, Speaks appropriately for age. - Family history: No immediate family members are acutely ill. - : The pt / caregiver states he / she is on anticoagulants: coumadin. Home medication list is obtained from the patient. - Exposure Risk Screening:: None identified. Vital Signs: 05/09 10:59 BP 106 / 60; Pulse 78; Resp 24 S; Temp 97.1; Pulse Ox 94% on R/A; Weight 81.65 kg / dd6 180.01 lbs (R); Height 5 ft. 9 in. (175.26 cm) (R); 11:13 BP 133 / 71 (auto/); mb9 11:15 Pulse 84 MON; Pulse Ox 92% on 4 lpm NC; mb9 11:19 BP 123 / 58 (auto/); mb9 11:20 Pulse 84 MON; Pulse Ox 93% on 4 lpm NC; mb9 11:34 BP 123 / 59 (auto/); mb9 11:35 Pulse 78 MON; Pulse Ox 93% on 4 lpm NC; mb9 12:49 BP 120 / 62 (auto/); mb9 12:50 Pulse 74 MON; Pulse Ox 99% on 4 lpm NC; mb9 13:04 BP 132 / 60 (auto/); mb9 13:05 Pulse 82 MON; Pulse Ox 93% on 4 lpm NC; mb9 13:44 BP 141 / 69 (auto/); mb9 13:45 Pulse 72 MON; Pulse Ox 98% on 4 lpm NC; mb9 13:59 BP 129 / 76 (auto/); mb9 13:59 Pulse 84 MON; Pulse Ox 89% on 4 lpm NC; mb9 14:14 BP 128 / 59 (auto/); mb9 14:14 Pulse 84 MON; Pulse Ox 88% on 4 lpm NC; mb9 14:29 BP 130 / 61 (auto/); mb9 14:29 Pulse 78 MON; Pulse Ox 90% on 4 lpm NC; mb9 14:43 Pulse 82 MON; mb9 14:44 BP 123 / 60 (auto/); mb9 14:54 BP 112 / 53 (auto/); mb9 14:57 BP 112 / 53 LA Supine (auto/reg); Pulse 78 MON; Resp 21; Temp 96.8; Pulse Ox 94% on 4 mb9 lpm NC; Pain 3/10; 15:28 Pain 2/10; mb9 15:28 Pain 2/10; mb9 10:59 Body Mass Index 26.58 (81.65 kg, 175.26 cm) dd6 MDM: 11:06 Business Analysis Analyst/Pulse Ox/q 30 min VS ordered. sd1 11:06 IV Saline Lock ordered. sd1 11:06 Rhythm Strip to chart ordered. sd1 11:06 Undress patient appropriately for examination ordered. sd1 11:06 ECG WITH READING ER PHYS+CARDIAG ordered. EDMS 11:07 portable chest Ordered. EDMS 11:07 B-Type Natiuretic Peptide Ordered. EDMS 11:07 Basic Metabolic Profile Ordered. EDMS 11:07 CBC with Diff Ordered. EDMS 11:07 Cardiac Injury Profile Ordered. EDMS 11:07 Prothrombin Time Profile\\E\\INR Ordered. EDMS 11:07 Troponin Ordered. EDMS 12:00 [facility] Payment Agreement was scanned into [employer] and attached to record. mm15 12:17 Albuterol-Ipratropium 1 neb Nebulizer every 20 minutes x3 ordered. br1 12:17 Solu-MEDROL 125 mg IVP once ordered. br1 12:17 Call Respiratory ordered. br1 12:19 Spine. Lumbosacral, Complete Ordered. EDMS 12:19 Pelvis Ordered. EDMS 12:19 Ultrasound Bilateral LE R/O DVT Ordered. EDMS 12:23 Call Respiratory complete. jrd 12:25 -Influenza A&B Rapid Antigen - Nose Ordered. EDMS 12:34 Financial registration complete. mm15 12:38 Solu-MEDROL 125 mg IVP once ordered. mb9 13:07 Basic Metabolic Profile Reviewed. br1 13:07 CBC with Diff Reviewed. br1 13:07 Prothrombin Time Profile\\E\\INR Reviewed. br1 13:07 Cardiac Injury Profile Reviewed. br1 13:07 Troponin Reviewed. br1 13:07 portable chest Reviewed. br1 13:08 B-Type Natiuretic Peptide Reviewed. br1 13:08 -Influenza A&B Rapid Antigen - Nose Reviewed. br1 13:22 traMADol 50 mg PO once; prn ordered. br1 13:56 Misc. Nursing Order ordered. br1 13:58 BED REQUEST+ADM ordered. EDMS 14:19 Admission / Observation Status ordered. EDMS 14:21 Acetaminophen Tablet 650 mg PO once ordered. br1 15:35 LOW FAT LOW CHOLESTEROL DIET ordered. EDMS 15:36 MRI Spine, L.S. without con Ordered. EDMS 15:38 SPUTUM CULTURE AND GRAM STAIN Ordered. EDMS 15:39 CARDIAC MARKER PANEL Ordered. EDMS 01 08:18 T-Sheet-- Draft Copy was scanned into [employer] and attached to record. gb Administered Medications: 05/09 12:30 Drug: Albuterol-Ipratropium 1 neb [ipratropium-albuterol 0.5 mg-3 mg(2.5 mg base)/3 mL kt1 nebulization soln (1 neb)] Route: Nebulizer; 12:40 Follow up: Response: Nebulizer completed kt1 12:38 Drug: Solu-MEDROL 125 mg [Solu-Medrol 500 mg intravenous solution (125 mg)] Route: IVP; mb9 Site: right antecubital; 12:44 Drug: Albuterol-Ipratropium 1 neb [ipratropium-albuterol 0.5 mg-3 mg(2.5 mg base)/3 mL kt1 nebulization soln (1 neb)] Route: Nebulizer; 12:49 Follow up: Response: Nebulizer completed kt1 12:56 Follow up: Response: Nebulizer completed kt1 13:00 Drug: Albuterol-Ipratropium 1 neb [ipratropium-albuterol 0.5 mg-3 mg(2.5 mg base)/3 mL kt1 nebulization soln (1 neb)] Route: Nebulizer; 14:05 Drug: traMADol 50 mg [tramadol 50 mg tablet (1 tabs)] Route: PO; mb9 15:28 Follow up: Pain 2/10 Adult; Response: Confirmed pt not driving.; Pain is decreased mb9 14:42 Drug: Acetaminophen 650 mg [acetaminophen 325 mg tablet (2 tabs)] Route: PO; mb9 15:28 Follow up: Pain 2/10 Adult; Response: Pain is decreased mb9 Signatures: Dispatcher [employer] EDMS Laurence Rodgers MD MD sd1 Soumya Ace, Snowboard Instructor Unit lbd Kena Mahmood, Reg Reg gb Joel Jha MD MD br1 Julia Beltrán, RN RN ttb Mary France mm15 Moe Giles, FILEMAKER DEVELOPER FILEMAKER DEVELOPER d Thomas Biswas RN RN mb9 Korina Ng kt1 The chart was reviewed and I authenticate all verbal orders and agree with the evaluation and treatment provided.Attachments: 12:00 [facility] Payment Agreement mm15 05/11 08:18 T-Sheet-- Draft Copy gb Chart Complete [facility]
== END 2016-05-12 15:30 | disposition home or self-care (01) | DRG 191 ==
LOC: M ED 10:57 → M ED INP 14:14 → M MSPAV 15:57 → OBSVTOIN 05-11 16:06
PROVIDERS: ADMIT Hospitalist; ATTEND Family Medicine
DX: J44.1 Chronic obstructive pulmonary disease with (acute) exacerbation (principal); I38 Endocarditis, valve unspecified; I50.42 Chronic combined systolic (congestive) and diastolic (congestive) heart failure; T82.817A Embolism due to cardiac prosthetic devices, implants and grafts, initial encounter; I10 Essential (primary) hypertension; I25.2 Old myocardial infarction; I25.5 Ischemic cardiomyopathy; N40.0 Benign prostatic hyperplasia without lower urinary tract symptoms; M54.5 Low back pain; I25.10 Atherosclerotic heart disease of native coronary artery without angina pectoris; K22.70 Barrett's esophagus without dysplasia; K21.9 Gastro-esophageal reflux disease without esophagitis; F17.210 Nicotine dependence, cigarettes, uncomplicated; E78.00 Pure hypercholesterolemia, unspecified; M35.3 Polymyalgia rheumatica; M79.89 Other specified soft tissue disorders; E78.5 Hyperlipidemia, unspecified; Z79.899 Other long term (current) drug therapy; Z79.01 Long term (current) use of anticoagulants; Z79.52 Long term (current) use of systemic steroids; Z79.51 Long term (current) use of inhaled steroids; Z88.5 Allergy status to narcotic agent; Z88.2 Allergy status to sulfonamides; Z91.040 Latex allergy status; Z91.013 Allergy to seafood; Z99.81 Dependence on supplemental oxygen; Z91.81 History of falling

== ENCOUNTER → 2016-05-23 | Outpatient (REF) | payer MEDICARE ==
[2016-05-23 12:25] LABS: MEAN CORPUSCULAR HEMOGLOBIN 28.8 pg (27.0-33.0); MEAN CORPUSCULAR HGB CONC 32.4 g/dl (32.0-36.5); RED CELL DISTRIBUTION WIDTH 14.7 % (11.5-14.5); WHITE BLOOD COUNT 15.2 K/mm3 (4.0-10.0)
[2016-05-23 13:04] LABS: ANION GAP 7 MEQ/L (8-16); BLOOD UREA NITROGEN 23 MG/DL (7-18); CALCIUM LEVEL 8.5 MG/DL (8.8-10.2); CARBON DIOXIDE LEVEL 38 MEQ/L (21-32); CHLORIDE LEVEL 96 MEQ/L (98-107); CREATININE FOR GFR 1.21 MG/DL (0.70-1.30); GLOMERULAR FILTRATION RATE > 60.0 (>42); GLUCOSE, FASTING 102 MG/DL (83-110); POTASSIUM SERUM 4.7 MEQ/L (3.5-5.1); SODIUM LEVEL 141 MEQ/L (136-145)
== END ==
LOC: M SFHCADAM 09:56
PROVIDERS: ATTEND Family Medicine
DX: I50.33 Acute on chronic diastolic (congestive) heart failure (principal); Z51.81 Encounter for therapeutic drug level monitoring; Z79.01 Long term (current) use of anticoagulants

== ENCOUNTER 2016-05-24 12:59 | Inpatient (IN) | payer MEDICARE ==
[~2016-05-24] VITALS: Ht 175.3 cm; Wt 82.9 kg
[2016-05-24] MEDS ORDERED: ONDANSETRON 4MG/2ML VIAL (J2405) IV PRN (14:00)
[2016-05-24] MEDS ORDERED: NITROGLYCERIN 0.4 MG SUBL TABLET SL PRN (14:00)
[2016-05-24 14:30] VITALS: BP 110/69
[2016-05-24] MEDS: ALBUTEROL SULFATE 2.5 MG/0.5 ML INH NEB SOLN INH PRN (15:15)
[2016-05-24 15:28] LABS: BASO % 0.1 % (0.0-1.0); EOS # 0.1 K/mm3 (0.0-0.50); EOS % 0.6 % (0.0-3.0); INR 3.27; LARGE UNSTAINED CELL # 0.1 K/mm3 (0.0-0.4); LARGE UNSTAINED CELL % 0.8 % (0.0-4.0); LYMPH # 0.8 K/mm3 (1.5-4.5); LYMPH % 4.9 % (24.0-44.0); MEAN CORPUSCULAR HEMOGLOBIN 28.8 pg (27.0-33.0); MEAN CORPUSCULAR HGB CONC 32.6 g/dl (32.0-36.5); MEAN CORPUSCULAR VOLUME 88.1 fl (80.0-96.0); MONO # 0.9 K/mm3 (0.0-0.8); MONO % 5.4 % (0.0-5.0); NEUTROPHILS # 14.5 K/mm3 (1.8-7.7); NEUTROPHILS % 88.2 % (36.0-66.0); PLATELET COUNT, AUTOMATED 270 k/mm3 (150-450); RED CELL DISTRIBUTION WIDTH 14.5 % (11.5-14.5); WHITE BLOOD COUNT 16.5 K/mm3 (4.0-10.0)
[2016-05-24] MEDS: ALBUTEROL SULFATE 2.5 MG/0.5 ML INH NEB SOLN INH SCH ×3 (15:42→23:51)
[2016-05-24 15:46] LABS: ALBUMIN 3.2 GM/DL (3.2-5.2); ALBUMIN/GLOBULIN RATIO 0.97 (1.00-1.93); ALKALINE PHOSPHATASE 120 U/L (45-117); ALT/SGPT 31 U/L (12-78); ANION GAP 6 MEQ/L (8-16); AST/SGOT 16 U/L (15-37); BILIRUBIN,TOTAL 0.5 MG/DL (0.2-1.0); BLOOD UREA NITROGEN 22 MG/DL (7-18); CALCIUM LEVEL 8.8 MG/DL (8.8-10.2); CARBON DIOXIDE LEVEL 39 MEQ/L (21-32); CHLORIDE LEVEL 96 MEQ/L (98-107); CREATININE FOR GFR 1.04 MG/DL (0.70-1.30); GLOMERULAR FILTRATION RATE > 60.0 (>42); GLUCOSE, FASTING 101 MG/DL (83-110); MAGNESIUM LEVEL 2.1 MG/DL (1.8-2.4); POTASSIUM SERUM 4.1 MEQ/L (3.5-5.1); SODIUM LEVEL 141 MEQ/L (136-145); TOTAL PROTEIN 6.5 GM/DL (6.4-8.2)
--- NOTE | 2016-05-24 15:59 | REP ---
CHEST, TWO VIEWS: HISTORY: CHF. COMPARISON: 05/09/2016. An increase in interstitial markings is present in the lungs consistent with chronic interstitial fibrosis. Linear densities are present in the lower lobes consistent with bibasilar atelectasis. The heart is normal in size. The pulmonary vasculature is normal in appearance. A cardiac pacemaker is present. IMPRESSION: 1. Chronic interstitial fibrosis. 2. Bibasilar atelectasis. Signed by Jason Quezada MD 05/24/2016 04:00 P
[2016-05-24 16:00] VITALS: BP 137/72
[2016-05-24] MEDS: FUROSEMIDE 40 MG/4 ML VIAL (J1940) IV SCH ×2 (16:26→20:48)
[2016-05-24] MEDS: FAMOTIDINE 20 MG TAB PO SCH (16:26)
--- NOTE | 2016-05-24 16:50 | ECGEPIP ---
Stationary ECG Study [facility] Test Date: 2016-05-24 Pat Name: FIDEL TORRES Department: Room: [place] [address] Gender: M Lithopone Charger: DIDIER : 1945 Requested By: Mirza Leon Order Number: [id number] Reading MD: Conner Black Measurements Intervals [place] Rate: 78 P: 19 W[place]: 135 QRS: 25 QRSD: 148 T: 44 QT: 397 QTc: 455 Interpretive Statements A-V sequential pacemaker with some [place] beats in left bundle branch block pattern No significant change when compared to prior tracing of 05/09/2016 Electronically Signed On 05-24-2016 16:50:29 EST by Conner Black
[2016-05-24 20:00] VITALS: BP 110/59
[2016-05-24] MEDS: ADVAIR DISKUS 250/50 INH PWD INH SCH (20:17)
[2016-05-24] MEDS: FLUTICASONE PROP 0.05% NASAL SPRAY 16 GM (FLONASE) SCH (20:47)
[2016-05-24] MEDS: DOCUSATE SODIUM 100 MG CAP PO SCH (20:47)
[2016-05-24] MEDS ORDERED: CAPTOpril 6.25 MG PER 1/2 TABLET PO SCH (21:00)
[2016-05-24] MEDS ORDERED: CARVedilol 6.25 MG TAB PO SCH (21:00)
[2016-05-24] MEDS: ACETAMINOPHEN TAB 650MG DOSE (2X325MG) PO PRN (21:26)
[2016-05-25] VITALS (9 sets, daily range): BP systolic 97–120; BP diastolic 55–76; O2SAT 95
[2016-05-25] MEDS: FUROSEMIDE 40 MG/4 ML VIAL (J1940) IV SCH ×6 (00:11→20:00)
[2016-05-25] MEDS: ALBUTEROL SULFATE 2.5 MG/0.5 ML INH NEB SOLN INH SCH ×6 (02:11→23:20)
--- NOTE | 2016-05-25 03:37 | HPE ---
DATE OF ADMISSION: 05/24/2016 ATTENDING PHYSICIAN: Dr. Mirza Leon. PRIMARY CARE PHYSICIAN: Dr. Archer. CHIEF COMPLAINT: Increasing respiratory distress, orthopnea and systemic edema. 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 He presented to our office this morning with worsening shortness of breath and marked dependent edema so we arranged his admission for parenteral diuretic therapy KNOWN PAST CARDIAC DISEASE/EVENTS/TESTS: 09/29/2004: Echocardiogram- indication worsening shortness of breath with heavy smoking history, found to have a slightly hypertrophied, but moderately dilated left ventricle with paradoxical septal motion, apical akinesis and anterior hypokinesis, likely related to left bundle branch block with left ventricular ejection fraction (LVEF) of 30% and moderately dilated left atrium. There was Doppler evidence of an impairment of left ventricular (LV) diastolic function with normal right heart chamber sizes, pulmonary arterial pressure of 28 mmHg, mild mitral annular calcification with mild-moderate insufficiency. 10/23/2004: Adenosine Cardiolite heart scan showed a dilated left ventricle with paradoxical septal motion related to left bundle branch block, LVEF 19%, and seeming prominent anterior and inferior fixed perfusion abnormalities. 03/07/2005: Underwent implantation of biventricular implantable cardioverter defibrillator, [facility]. "CHF despite medical therapy/ EKG left bundle branch block." 08/13/2007: Adenosine Cardiolite heart scan - followup post implantable cardioverter defibrillator (ICD) implant on combination anti-failure therapy showed pharmacologically induced flushing, dyspnea and chest tightness. EKG left bundle branch block and occasional isolated PVCs. Left ventricular size had normalized with LVEF 63%. Thick seeming proximal septal and inferior abnormality due to diaphragmatic attenuation. No reversible perfusion defect. 06/10/2009: Cardiac catheterization [facility], [place] - "Chest discomfort/abnormal pharmacological stress heart scan [facility]" - normal left ventricular size and wall motion, LVEF 50%, LVEDP 14 mmHg, mildly dilated left atrium due to mild mitral insufficiency. Nonobstructive coronary atherosclerosis. 08/15/2009: Replacement of depleted biventricular ICD pulse generator ([employer] model 3211) excellent intracardiac electrograms and pacing thresholds with induced ventricular fibrillation terminated with a single 10 joule shock. Subsequent hospitalizations and nuclear testing prompted by chest pain have confirmed a favorable coronary prognosis despite his multiple coronary risk factors.. 12/08/2010: Upper and lower gastrointestinal (GI) endoscopy showed evidence of Murphy's esophagus and diverticulosis of the colon with non-bleeding internal hemorrhoids. 05/26/2014: Last Regadenoson Cardiolite heart scan showed no inducible chest pain, EKG change, normal left ventricular wall motion and left ventricular size, LVEF 75%. Normal stress SPECT myocardial perfusion images. 08/25/2014: Biventricular ICD pulse generator replacement/depleted battery - new device [employer] - [employer] model number [id number]. Excellent intracardiac electrograms, induced VF terminated with 12.5 joule shock. [facility] (Dr. Leon). 10/17/2015: Transesophageal echocardiogram, suspected endocarditis with postoperative diagnosis of mass on implantable cardioverter defibrillator lead, likely thrombus. Mild aortic valve sclerosis. Mild-moderate atheroma distal aortic arch and descending thoracic aorta. Diagnosed nonbacterial thrombotic endocarditis. 11/03/2015: Last Echocardiogram showed normal left ventricular size, wall thickness and only slight paradoxical septal motion believed to be due to right ventricular pressure overload, LVEF 60%. Mildly dilated left atrium with Doppler evidence of an impairment of LV diastolic relaxation. Normal right heart chamber sizes with at least moderate pulmonary hypertension. IVC size not detectable due to moderately technical difficulty with study. No pericardial effusion. Moderate mitral annular calcification with very mild insufficiency. Mild aortic valvular sclerosis without functional abnormality. Mobile mass adjacent to the right ventricular pacing lead at the mid cavity level within the right ventricle , unchanged from prior transesophageal echocardiogram earlier the same month. 6001/07/2016: Admitted for shortness of breath attributed to worsening obstructive pulmonary disease. BNP level was normal. Chronic respiratory failure, oxygen dependent. 01/30/2016: Pulmonary function studies [facility], [place] - moderate airflow obstruction - FVC 2.6, FEV-1 1.38, ratio 53%. 02/23/2016: Chest CT scan [facility], [place] "right lower lobe infiltrate," cardiomegaly with multi-lead ICD. Coarse linear fibrotic changes both bases, right lower lobe pulmonary artery calcifications, vascular calcification thoracic aorta major branches, significant emphysematous changes both upper lobes. 05/09/2016: Admitted [facility] recurrent respiratory distress/ respiratory failure. Exacerbation of right heart failure treated with controlled supplemental oxygen, parenteral steroid and bronchodilators, and Lasix intravenously (IV). Venous ultrasound lower extremities negative for deep venous thrombosis. CARDINAL CARDIAC SYMPTOMS: The patient at this point can walk no farther than 50 feet at his own pace prior to stopping with dyspnea. Worsening lower extremity edema and orthopnea. Denied chest pain, palpitations, dizziness. No symptoms suggest embolic phenomenon. No claudication. CORONARY RISK FACTORS: Male gender, advanced age. Hypertension at least 11 years. Longstanding heavy smoking history to the present. No documented diabetes mellitus, hypercholesterolemia, obesity, symptomatic carotid vascular disease or family history of premature coronary heart disease. OTHER PAST MEDICAL HISTORY: 1. Remote right inguinal herniorrhaphy. 2. Kidney stone 1994. 3. 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 4. Benign prostatic hypertrophy. 5. Murphy's esophagus. 6. Polymyalgia rheumatica. REVIEW OF SYSTEMS: Denies fever, chills or night sweats. No weight loss. Wears corrective lenses. No hearing problems. Has a chronic cough, occasionally sputum productive of whitish or yellowish sputum. On combination proton pump inhibitor ranitidine and Tums, no longer experiences any heartburn or dysphagia. Denies abdominal pain or change in bowel habits. No apparent GI bleeding. Denies urinary complaints. Unaware of renal insufficiency. On chronic prednisone therapy. Currently free of any myalgia or joint pain. Denies any headache or lateralizing neurological deficit. All other systems review is negative. HOME MEDICATIONS: Atenolol 25 mg daily, torsemide 60 mg twice a day, spironolactone 25 mg daily, atorvastatin 80 mg daily at bedtime, nitroglycerin 0.4 mg SL every 5 min. when necessary chest pain, Coumadin 3 mg tablets as directed by primary physician, Nexium 40 mg twice a day, ranitidine 300 mg daily , TUMS one tablet by mouth as needed, prednisone 15 mg daily,Omnaris nasal spray each start scrotal daily, Pro Air inhaler 2 puffs twice a day, Advair Diskus 2:30-21 2 puffs twice a day, Spiriva inhaler 1 inhalation daily Voltaren 1% ointment apply as directed Tylenol 500 mg tablets one or 2 tablets by mouth every 6 hours when necessary and tramadol 50 mg tablets one or 2 tablets by mouth every 6 hours when necessary. ALLERGIES/INTOLERANCES: SULFA, LATEX, SHELLFISH, VICODIN. PHYSICAL EXAMINATION: Constitutional: Barrel-chested pleasant elderly male of medium body build, comfortable lying in bed with the head elevated 30 degrees. Vital signs: Heart rate 88 beats per minute and regular, blood pressure 108/68 sitting with legs dependent, respiratory rate 28 per minute, oxygen saturation 94% on supplemental oxygen by nasal prongs at 2.5 liters. Weight 190 pounds, height 69 inches, body mass index (BMI) 28.1 Eyes: No conjunctival pallor or icterus. No xanthelasma. Ears, nose, throat (ENT)/mouth: Normal oral moisture. No current central cyanosis. Neck: Trachea midline. Thyroid not enlarged. Jugular veins were approximately 12 cm above the sternal angle. Respiratory: Increased anteroposterior chest diameter with reduced chest excursion. Well-healed ICD incision left subclavian region. Inspiratory rales at least one-third up both lower lobes posteriorly. Obvious prolongation of expiration, but no audible wheeze. Cardiovascular: Apical impulse not palpable. Heart sounds distant. No audible gallop. Soft systolic ejection murmur left sternal border. Normal carotid upstrokes and volume with no bruits. Upper extremity and femoral pulses were palpable. Abdominal aorta was not palpable and pedal pulses were not palpable through dependent edema. No abdominal bruits. Gastrointestinal: Protuberant abdomen with shifting dullness. Liver span 12 cm in right midclavicular line. Spleen not palpable. Rectal examination not indicated, but stool will be obtained for occult blood. Musculoskeletal: No obvious joint deformities, but very tense bilateral lower extremity pitting with some weeping of superficial blisters and erythema over the distal aspect of the left lower leg. Pitting of at least 2 mm above his knees and over his sacrum. Skin: Tense erythematous discoloration of lower legs as mentioned, but no other lesions, pallor or icterus. Musculoskeletal: No obvious joint deformities. Proximal muscle weakness, but normal tone. No abnormal movements. Neurologic/psychiatric: Appeared fairly bright and alert and gave a fair history. Facial, extremity movements appear to be symmetrical and normal. Affect was appropriate. INVESTIGATIONS: PA left lateral chest x-ray: Reviewed independently shows what appears to be cardiomegaly with unfolded tortuous thoracic aorta. BiV ICD pulse generator left subclavian region with shocking lead RV apex, atrial lead lateral wall of the right atrium, and LV pacing lead anterolateral left ventricular wall. Pulmonary vessels appear to be plump and congested, increased interstitial markings. Hyperinflated lung lazaro with flattened diaphragms on the lateral projection and scarring of the left costophrenic angle. Degenerative changes of his thoracic spine. EKG: Tracing reviewed independently shows appropriate atrial sensing and tracking with biventricular pacing. Occasional spontaneous complex with LVEDP configuration. No change from prior tracing 05/09/2016. LABORATORY DATA: Hemoglobin 12.9, white blood cell count was elevated at 16.5 thousand, but similar to earlier this month on his prednisone therapy. Normal platelet count. PT/INR 33/3.3. Last arterial blood gas of 04/26/2016, on supplemental oxygen by nasal prongs at 2.5 liters - pH 7.4, pCO2 54, pO2 71. Chemistry today showed metabolic alkalosis believed to be related to his chronic respiratory acidosis. Other electrolytes were normal. Potassium 4.1, admission BUN 22, creatinine 1.0, random glucose 101, magnesium level 2.1. Slightly increased alkaline phosphatase. Other liver function studies were normal with albumin 3.2. Troponin I level was negative at less than 0.02. Ostensive TSH was slightly elevated at 8.0. Urinalysis was negative. IMPRESSION/PROVISIONAL DIAGNOSES: 1. Heart failure (diastolic/acute on chronic): Undoubtedly multiple reasons for his shortness of breath including his advanced smoking-induced pulmonary disease , but has clinical features of biventricular congestion as well. No clear triggering factor beyond his advanced pulmonary disease. The patient has been admitted to a telemetry unit for close observation and temporarily restricted activity. He will be kept on controlled supplemental oxygen by nasal prongs. He has been placed on a modest salt and fluid intake restriction and a Wilkins catheter has been inserted to facilitate accurate Intake and output (I and O) measurements. Lasix 40 mg intravenous (IV) will be administered every 4 hours to achieve a net negative fluid balance of 1500 mL as long as he has signs of congestion. His chemistry will be monitored closely. He will also be placed on low-dose carvedilol 6.25 mg twice a day and captopril 6.25 mg twice a day with his spironolactone 25 mg daily. The cardiac rehabilitation program has been consulted for patient education and gradual ambulation. 2. Abnormal EKG/history of left bundle branch block/biventricular implantable cardioverter defibrillator in situ: The patient has done remarkably well following cardiac resynchronization therapy, initially 2004. Even his last echocardiogram shows fairly preserved global resting left ventricular systolic function despite his significantly dilated and severely impaired systolic dysfunction prior to this therapy. His device appears to be functioning appropriately. He has not received an ICD discharge for symptomatic ventricular tachyarrhythmia but has been known to have frequent PVCs and nonsustained VT. Though he has an active DO NOT RESUSCITATE, his tachycardia features of his biventricular implantable cardioverter defibrillator (ICD) are still activated. We will monitor him on telemetry while we are administering parenteral diuretic therapy. He has frequent PACs and a history of nonsustained ventricular tachycardia. 3. Hypertensive heart disease (benign with heart failure): The precise etiology of his original severe left ventricular dysfunction is not certain, but chronic hypertension is believed to be a contributing factor as his initial echocardiogram clearly showed at least a mild degree of left ventricular hypertrophy. His present blood pressure is adequately controlled. We have added a low-dose selective beta-víctor atenolol, torsemide, spironolactone, and Flomax. While he is in hospital, we have switched his beta-víctor to low-dose carvedilol and introduced at least low-dose captopril to help minimize the negative metabolic effects of his parenteral diuretic therapy. His renal function will be monitored closely. 4. Mitral valve disorder (nonrheumatic)/mitral insufficiency: Previous mild to moderate mitral insufficiency significantly improved following cardiac resynchronization therapy 2004. A systolic murmur on auscultation currently is more in keeping with LV outflow tract origin and his aortic sclerosis. Prior history of nonbacterial thrombotic endocarditis with clot on his right ventricular shocking/pacing lead, has been on oral anticoagulation since this. Chronic leukocytosis related to his prednisone therapy for his polymyalgia rheumatica and lung disease. 5. Cor pulmonale/right heart failure: Has had advanced smoking-induced pulmonary disease and had been smoking up to the time of his current admission, has hypercapnic respiratory failure on chronic home oxygen. He will remain on controlled oxygen supplement and we have ordered Ventolin/albuterol inhaler by nebulizer every 4 hours. He will also remain on his Spiriva inhaler one inhalation daily and Advair inhaler 250/50 one inhalation twice a day. 6. Murphy's esophagus: He will continue on proton pump inhibitor, ranitidine combination therapy, especially with his prednisone and acute stress. The patient appears to understand and agree with our initial plans. Further intervention will depend on his response to these measures. LYNDAD
[2016-05-25] MEDS: ACETAMINOPHEN TAB 650MG DOSE (2X325MG) PO PRN (03:46)
[2016-05-25] MEDS: ALBUTEROL SULFATE 2.5 MG/0.5 ML INH NEB SOLN INH PRN (03:55)
[2016-05-25 05:37] LABS: INR 2.41
[2016-05-25 05:46] LABS: ANION GAP 7 MEQ/L (8-16); BLOOD UREA NITROGEN 22 MG/DL (7-18); CALCIUM LEVEL 8.4 MG/DL (8.8-10.2); CARBON DIOXIDE LEVEL 37 MEQ/L (21-32); CHLORIDE LEVEL 95 MEQ/L (98-107); CREATININE FOR GFR 1.03 MG/DL (0.70-1.30); GLOMERULAR FILTRATION RATE > 60.0 (>42); GLUCOSE, FASTING 103 MG/DL (83-110); PHOSPHORUS LEVEL 3.5 MG/DL (2.5-4.9); POTASSIUM SERUM 3.6 MEQ/L (3.5-5.1); SODIUM LEVEL 139 MEQ/L (136-145)
[2016-05-25] MEDS: ADVAIR DISKUS 250/50 INH PWD INH SCH ×2 (07:17→19:27)
[2016-05-25] MEDS: TIOTROPIUM INHALER/CAPSULE (SPIRIVA) INH SCH (07:17)
--- NOTE | 2016-05-25 08:05 | ECHO ---
DATE OF PROCEDURE: 05/24/2016 REFERRING PHYSICIAN: Dr. Aaron Bagley. INDICATION: Heart failure, unspecified. HEIGHT: 175 cm WEIGHT: 87.9 kg MEASUREMENTS: Proximal ascending aorta: 3.5 cm Aortic root: 3.7 cm Left atrium: 3.8 cm Ventricular septum: 1.53 cm Posterior wall: 1.48 cm LVOT: 2.3 cm Inferior vena cava: intermittent near complete respiratory collapse DOPPLER MEASUREMENTS: Aortic valve velocity: 146 cm/s LVOT velocity: 95.7 cm/s Very mild mitral regurgitation. Mitral E velocity: 77.5 cm/s Mitral A velocity: 120 cm/s Mitral deceleration time: 313 ms Very mild tricuspid regurgitation. Estimated right ventricle systolic pressure: 33 mmHg assuming a right atrial pressure of 5 mmHg Pulmonary artery systolic pressure: 36 mmHg (pulmonary acceleration time method) MITRAL ANNULAR TISSUE DOPPLER: E prime septal: 5.0 cm/s E prime lateral: 7.0 cm/s DESCRIPTION: Rhythm was predominately sinus with P-synchronous biventricular pacing. Frequent premature ventricular contractions (PVCs). No pericardial effusion. This was a moderately technically difficult echocardiogram. CONCLUSIONS: 1. Moderate concentric left ventricle hypertrophy with reduced left ventricle (LV) cavity size. Mild paradoxical septal motion. Normal overall LV systolic function. Normal contraction of the anterior wall, lateral wall, inferior wall, and apex. Left ventricular ejection fraction (LVEF) 60% by visual estimate. Mild partial fusion of the early rapid filling phase with atrial filling phase at 77 beats per minute (BPM). 2. Mild left atrial dilatation by visual estimate. 3. Moderate mitral annular calcification. No mitral stenosis. Very mild mitral regurgitation. 4. Mild aortic valve sclerosis of a three-cuspid aortic valve. Functionally normal. 5. Suggestive of mild elevation of pulmonary artery systolic pressure and estimated right ventricle (RV) systolic pressure. Central venous pressure estimated to be 0-5 mmHg at the time of the study. 6. Presence of endocardial right ventricle ICD lead, coronary sinus LV lead, and right atrial pacing lead. MTDD
[2016-05-25] MEDS: predniSONE 5 MG TAB PO SCH (08:43)
[2016-05-25] MEDS: SPIRONOLACTONE 50 MG TAB PO SCH (08:43)
[2016-05-25] MEDS: DOCUSATE SODIUM 100 MG CAP PO SCH ×2 (08:44→22:03)
[2016-05-25] MEDS: FAMOTIDINE 20 MG TAB PO SCH (08:44)
[2016-05-25] MEDS: OMEPRAZOLE 20 MG CAP PO SCH (08:44)
[2016-05-25] MEDS: BISOPROLOL FUMARATE 10 MG TAB PO SCH (08:44)
[2016-05-25] MEDS: POTASSIUM CHLORIDE 10 MEQ SR TABLET PO SCH ×2 (08:44→22:03)
[2016-05-25] MEDS: FLUTICASONE PROP 0.05% NASAL SPRAY 16 GM (FLONASE) SCH ×2 (08:45→22:04)
[2016-05-25] MEDS ORDERED: SPIRONOLACTONE 25 MG TAB PO SCH (09:00)
--- NOTE | 2016-05-25 15:59 | IPN ---
DATE: 05/25/2016 TIME OF SERVICE: 3:02 p.m. SUBJECTIVE: Patient reports his breathing is slightly better. He is still experiencing dyspnea with minimal activity in the room. No orthopnea or paroxysmal nocturnal dyspnea (PND). He is aware he still has bilateral leg edema but has seen some improvement since admission. No nausea or vomiting. No chest pain or chest discomfort. No other voiced complaints. PHYSICAL EXAMINATION: Overweight, man who is not in any respiratory or psychologic distress. Temperature 96.8, pulse 74, respiratory rate 18, blood pressure 114/55, oxygen saturation 92% on oxygen 3 liters per minute by nasal cannula. Jugular venous pulsations were at 8 cm. 1 cm of pitting edema was present at mid and distal tibial level bilaterally. Skin was not tense. Stasis dermatitis was present and appears mild. No venous ulcers or blistering. Presence of implantable cardioverter defibrillator (ICD) left pectoral region. First and second heart sounds were diminished in intensity. No S3 or S4 or murmurs appreciated. Respiratory expansion and effort was fair. Breath sounds intensity fair. No crackles or wheezes. Abdomen soft, nontender with normal bowel sounds. Mood and affect was normal. Input and output for the time observed in hospital for 05/24/2016, showed net negative 1545 mL. So far today the patient is generating a good net negative fluid balance. Weight today 84.5 kg which is down from 86.7 kg observed yesterday. LABORATORY DATA: 05/25/2016: Sodium 139, potassium 3.6, chloride 95, CO2 37, BUN 22, creatinine 1.03, estimated GFR greater than 60, glucose 103, albumin 3.0. Laboratory work 05/24/2016 showed TSH 8.010 (elevated). ASSESSMENT AND PLAN: 1. Heart failure (acute on chronic, diastolic). Patient's recent blood pressure shows controlled hypertension. Patient is generating an excellent net negative fluid balance. He continues to have dyspnea with minimal activity. Continue bisoprolol 10 mg daily, furosemide 40 mg IV every 4 hours, potassium chloride 20 mEq twice a day, spironolactone 50 mg daily. 2. Abnormal ECG. Status post biventricular implantable cardioverter defibrillator (ICD) in situ. Base rate 70 beats per minute. Stable. Predominantly biventricular paced on telemetry. Stable. 3. Coronary artery disease (upper mattaponi vessel). Previous cardiac catheterization showed mild to moderate coronary artery atherosclerosis many years ago. His last cardiac nuclear stress test showed normal perfusion. Continue bisoprolol, nitroglycerin sublingual as needed, warfarin. I would prefer to hold off on using an angiotensin-converting enzyme inhibitor (ACEI) or ARB at this time because the patient is being aggressively diuresed intravenously (IV) and is currently on a high dose of spironolactone and he does not have systolic heart failure at the moment. At some point it may be useful to have an angiotensin-converting enzyme inhibitor (ACEI) or ARB. Will add aspirin 81 mg daily. 4. Hypertensive heart disease (benign, with heart failure). As per diastolic heart failure category above. 5. Chronic obstructive pulmonary disease (COPD), emphysema. No wheezing. Breath sounds intensity fair. Continue the current therapy consisting of albuterol nebulizers, prednisone, and Advair Diskus. 6. Right heart failure secondary to chronic cor pulmonale. Right heart failure predominates the patient's heart failure clinical picture. Management of heart failure is described under the diastolic heart failure category above.
[2016-05-25] MEDS: WARFARIN SOD 3 MG TAB PO SCH (16:48)
[2016-05-25] MEDS: ASPIRIN 81 MG ENTERIC TAB PO SCH (16:50)
[2016-05-26] VITALS (7 sets, daily range): BP systolic 120–127; BP diastolic 57–77; PULSE 79; O2SAT 95
[2016-05-26] MEDS: FUROSEMIDE 40 MG/4 ML VIAL (J1940) IV SCH ×7 (00:42→23:55)
[2016-05-26] MEDS: ALBUTEROL SULFATE 2.5 MG/0.5 ML INH NEB SOLN INH SCH ×6 (03:26→23:24)
[2016-05-26 05:23] LABS: INR 1.56
[2016-05-26 05:38] LABS: ANION GAP 7 MEQ/L (8-16); BLOOD UREA NITROGEN 27 MG/DL (7-18); CALCIUM LEVEL 8.7 MG/DL (8.8-10.2); CARBON DIOXIDE LEVEL 36 MEQ/L (21-32); CHLORIDE LEVEL 97 MEQ/L (98-107); CREATININE FOR GFR 1.04 MG/DL (0.70-1.30); GLOMERULAR FILTRATION RATE > 60.0 (>42); GLUCOSE, FASTING 107 MG/DL (83-110); PHOSPHORUS LEVEL 3.5 MG/DL (2.5-4.9); SODIUM LEVEL 140 MEQ/L (136-145)
[2016-05-26] MEDS: ADVAIR DISKUS 250/50 INH PWD INH SCH ×2 (07:46→19:37)
[2016-05-26] MEDS: TIOTROPIUM INHALER/CAPSULE (SPIRIVA) INH SCH (07:46)
[2016-05-26] MEDS: ACETAMINOPHEN TAB 650MG DOSE (2X325MG) PO PRN (08:15)
[2016-05-26] MEDS: OMEPRAZOLE 20 MG CAP PO SCH (08:16)
[2016-05-26] MEDS: FAMOTIDINE 20 MG TAB PO SCH (08:16)
[2016-05-26] MEDS: ASPIRIN 81 MG ENTERIC TAB PO SCH (08:16)
[2016-05-26] MEDS: predniSONE 5 MG TAB PO SCH (08:16)
[2016-05-26] MEDS: BISOPROLOL FUMARATE 10 MG TAB PO SCH (08:16)
[2016-05-26] MEDS: SPIRONOLACTONE 50 MG TAB PO SCH (08:16)
[2016-05-26] MEDS: POTASSIUM CHLORIDE 10 MEQ SR TABLET PO SCH ×2 (08:16→20:55)
[2016-05-26] MEDS: FLUTICASONE PROP 0.05% NASAL SPRAY 16 GM (FLONASE) SCH ×2 (08:17→20:56)
[2016-05-26] MEDS: DOCUSATE SODIUM 100 MG CAP PO SCH ×2 (08:17→20:55)
[2016-05-26] MEDS: LEVOTHYROXINE 0.025 MG TAB (25 MCG) PO SCH (13:11)
--- NOTE | 2016-05-26 13:21 | IPN ---
DATE OF SERVICE: 05/26/2016 TIME OF SERVICE: 12:05 p.m. SUBJECTIVE: The patient is not having any dyspnea at rest. He has mild dyspnea with very low levels of activity in the room. No orthopnea or paroxysmal nocturnal dyspnea (PND). He notices that the bilateral leg edema, although still present in both legs, is continuing to improve. No chest pain or chest discomfort. No palpitations. PHYSICAL EXAMINATION: A pleasant overweight elderly man who is not in any respiratory or psychological distress. Weight 84.2 kg. He was net negative 1765 mL for the 24 hours of 05/25/2016. Temperature 96.8, pulse 69, respiratory rate 24, blood pressure (BP) 123/66, oxygen (O2) saturation 92% on oxygen (O2) 3 liters via nasal cannula. Jugular venous pulsations were at 5 cm. No palpable thyroid. Carotids were normal in volume and contour and without bruits. Respiratory expansion and effort was fair. No crackles or wheezes. Implantable cardioverter-defibrillator (ICD) in situ left pectoral region. First and second heart sounds were normal. No S3 or S4 or murmurs appreciated. Abdomen was mildly obese and was soft and nontender with normal bowel sounds. Liver span difficult to assess due to abdominal obesity. Mood and affect was normal. Speech was normal. Pedal pulses normal. Stasis dermatitis was present in both legs. 6 mm pitting edema was present at mid and distal tibial level bilaterally. LABORATORY WORK: 05/26/2016 was reviewed. Sodium 140, potassium 4.0, chloride 97, CO2 36, creatinine 1.04, estimated GFR greater than 60, albumin 3.0, TSH 8.20. ASSESSMENT AND PLAN: 1. Heart failure (diastolic/acute on chronic). [place] [employer] (NYHA) functional class III. He remains decompensated on examination but has generated an excellent net negative fluid balance, and the leg edema continues to become less. The plan will be to continue bisoprolol 10 mg daily, furosemide 40 mg intravenous (IV) every 4 hours, spironolactone 50 mg daily. 2. Abnormal electrocardiogram (ECG). Stable. 3. Coronary artery disease (CAD) ([place] vessel) without angina. Previous cardiac catheterization many years ago showed mild to moderate coronary atherosclerosis. He remains angina-free. His last cardiac nuclear stress test showed normal stress myocardial perfusion. The plan will be to continue aspirin 81 mg daily, bisoprolol, Nitrostat as needed. His blood pressure sometimes in the hospital is running below 110; and because he is receiving high-dose diuretics, I prefer not to add an angiotensin-converting enzyme inhibitor (ACEI) or angiotensin receptor víctor (ARB) at this time. 4. Hypertensive heart disease (benign, with heart failure). Blood pressure controlled. Management as per heart failure category above. 5. 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 The patient's breathing remains stable. Continue albuterol nebulizers, prednisone, and Spiriva. 6. Hypothyroidism. This is a new problem. Two thyroid-stimulating hormone (TSH) levels indicate mild hypothyroidism. No palpable thyroid. He will be started on levothyroxine 25 mcg daily beginning today.
[2016-05-26] MEDS: WARFARIN SOD 3 MG TAB PO SCH (16:20)
[2016-05-26] MEDS ORDERED: SIMETHICONE 80 MG CHEW TAB PO PRN (23:30)
[2016-05-26] MEDS: zolPIDEM TARTRATE 5 MG TAB PO PRN (23:55)
[2016-05-27] VITALS (8 sets, daily range): BP systolic 107–116; BP diastolic 57–69; PULSE 74–79
[2016-05-27] MEDS: ALBUTEROL SULFATE 2.5 MG/0.5 ML INH NEB SOLN INH SCH ×6 (03:28→23:45)
[2016-05-27] MEDS: FUROSEMIDE 40 MG/4 ML VIAL (J1940) IV SCH ×6 (03:50→23:03)
[2016-05-27] MEDS: LEVOTHYROXINE 0.025 MG TAB (25 MCG) PO SCH (05:33)
[2016-05-27 05:43] LABS: INR 1.28
[2016-05-27 06:00] LABS: ALBUMIN 2.9 GM/DL (3.2-5.2); ANION GAP 8 MEQ/L (8-16); BLOOD UREA NITROGEN 26 MG/DL (7-18); CALCIUM LEVEL 8.6 MG/DL (8.8-10.2); CARBON DIOXIDE LEVEL 34 MEQ/L (21-32); CHLORIDE LEVEL 97 MEQ/L (98-107); CREATININE FOR GFR 1.02 MG/DL (0.70-1.30); GLOMERULAR FILTRATION RATE > 60.0 (>42); GLUCOSE, FASTING 94 MG/DL (83-110); PHOSPHORUS LEVEL 3.2 MG/DL (2.5-4.9); SODIUM LEVEL 139 MEQ/L (136-145)
[2016-05-27] MEDS: ADVAIR DISKUS 250/50 INH PWD INH SCH ×2 (08:21→20:36)
[2016-05-27] MEDS: TIOTROPIUM INHALER/CAPSULE (SPIRIVA) INH SCH (08:21)
[2016-05-27] MEDS: BISOPROLOL FUMARATE 10 MG TAB PO SCH (09:07)
[2016-05-27] MEDS: ASPIRIN 81 MG ENTERIC TAB PO SCH (09:07)
[2016-05-27] MEDS: predniSONE 5 MG TAB PO SCH (09:07)
[2016-05-27] MEDS: FAMOTIDINE 20 MG TAB PO SCH (09:07)
[2016-05-27] MEDS: POTASSIUM CHLORIDE 10 MEQ SR TABLET PO SCH ×2 (09:08→20:07)
[2016-05-27] MEDS: DOCUSATE SODIUM 100 MG CAP PO SCH ×2 (09:08→20:07)
[2016-05-27] MEDS: SPIRONOLACTONE 50 MG TAB PO SCH (09:08)
[2016-05-27] MEDS: OMEPRAZOLE 20 MG CAP PO SCH (09:09)
[2016-05-27] MEDS: FLUTICASONE PROP 0.05% NASAL SPRAY 16 GM (FLONASE) SCH ×2 (09:09→20:07)
[2016-05-27] MEDS: ACETAMINOPHEN TAB 650MG DOSE (2X325MG) PO PRN (10:43)
--- NOTE | 2016-05-27 12:33 | IPN ---
DATE OF SERVICE: 05/27/2016 TIME OF SERVICE: 11:59 a.m. SUBJECTIVE: No dyspnea with low levels of exertion in the room. No orthopnea or paroxysmal nocturnal dyspnea (PND). He reports that his leg swelling, although still present, appears to be becoming less. He had some insomnia last night. No chest pain or chest discomfort. PHYSICAL EXAMINATION: A pleasant elderly overweight man not in any respiratory or psychological distress. Weight 83.8 kg. Temperature 96.5, pulse 74 (regular), respiratory rate 18, blood pressure (BP) 116/69, oxygen (O2) saturation 94% on oxygen (O2) 3 liters via nasal cannula. Fluid balance for the 24 hours of 05/26/2016 showed the patient to be net negative 1735 mL. Jugular venous pulsations were at 5 cm. First and second heart sounds normal. No S3 or S4 or murmurs appreciated. Respiratory expansion and effort was fair. No crackles or wheezes. Abdomen was soft and nontender with normal bowel sounds. Stasis dermatitis was present in both legs. 4 mm of pitting edema was present at mid and distal tibial level bilaterally. LABORATORY WORK: 05/27/2016. Sodium 139, potassium 4.0, chloride 97, CO2 34, BUN 26, creatinine 1.02, estimated GFR greater than 60, glucose 94, albumin 2.9. ASSESSMENT AND PLAN: 1. Diastolic heart failure (acute on chronic). The patient remains decompensated. [place] Heart Association (NYHA) functional class III. He has continued to diurese very well with intravenous (IV) furosemide. Blood pressure controlled. Renal function remaining stable. Continue bisoprolol 10 mg daily, furosemide 40 mg IV every 4 hours, spironolactone 50 mg daily. 2. Abnormal electrocardiogram (ECG). Stable. Status post biventricular implantable cardioverter defibrillator (ICD) in situ. 3. Coronary artery disease (CAD) ([place] vessel). No angina. Remote cardiac catheterization showed mild-moderate coronary atherosclerosis. Continue aspirin 81 mg daily, bisoprolol 10 mg daily, Nitrostat as needed. I will restart atorvastatin 80 mg nightly, which he was on as an outpatient. 4. Hypertensive heart disease (benign with congestive heart failure (CHF)). Blood pressure controlled. Heart failure management as per problem #1. 5. 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 Stable. The patient to continue on albuterol nebulizers, prednisone 15 mg daily, and Advair Diskus. 6. Hypothyroidism. A new diagnosis. The patient was started on levothyroxine 25 mcg daily.
[2016-05-27] MEDS: WARFARIN SOD 3 MG TAB PO SCH (16:23)
[2016-05-27] MEDS: ATORVASTATIN 20 MG TAB PO SCH (20:07)
[2016-05-27] MEDS: zolPIDEM TARTRATE 5 MG TAB PO PRN (23:03)
[2016-05-28 04:00] VITALS: BP 117/57
[2016-05-28] MEDS: ALBUTEROL SULFATE 2.5 MG/0.5 ML INH NEB SOLN INH SCH ×5 (04:33→20:00)
[2016-05-28 05:29] LABS: INR 1.17
[2016-05-28] MEDS: LEVOTHYROXINE 0.025 MG TAB (25 MCG) PO SCH (05:44)
[2016-05-28 06:19] LABS: ALBUMIN 3.1 GM/DL (3.2-5.2); ANION GAP 9 MEQ/L (8-16); BLOOD UREA NITROGEN 32 MG/DL (7-18); CALCIUM LEVEL 9.2 MG/DL (8.8-10.2); CARBON DIOXIDE LEVEL 33 MEQ/L (21-32); CHLORIDE LEVEL 94 MEQ/L (98-107); CREATININE FOR GFR 1.15 MG/DL (0.70-1.30); GLOMERULAR FILTRATION RATE > 60.0 (>42); GLUCOSE, FASTING 99 MG/DL (83-110); SODIUM LEVEL 136 MEQ/L (136-145)
[2016-05-28 06:22] LABS: POTASSIUM SERUM 5.4 MEQ/L (3.5-5.1)
[2016-05-28] MEDS: TIOTROPIUM INHALER/CAPSULE (SPIRIVA) INH SCH (07:24)
[2016-05-28] MEDS: ADVAIR DISKUS 250/50 INH PWD INH SCH ×2 (07:24→20:10)
[2016-05-28 08:00] VITALS: BP 107/65
[2016-05-28] MEDS: predniSONE 5 MG TAB PO SCH (08:59)
[2016-05-28] MEDS: SPIRONOLACTONE 50 MG TAB PO SCH (08:59)
[2016-05-28] MEDS: DOCUSATE SODIUM 100 MG CAP PO SCH ×2 (08:59→20:48)
[2016-05-28] MEDS: TORSEMIDE 100 MG TAB PO SCH ×2 (08:59→16:03)
[2016-05-28] MEDS: POTASSIUM CHLORIDE 10 MEQ SR TABLET PO SCH (09:00)
[2016-05-28] MEDS: OMEPRAZOLE 20 MG CAP PO SCH (09:01)
[2016-05-28] MEDS: FAMOTIDINE 20 MG TAB PO SCH (09:01)
[2016-05-28] MEDS: ASPIRIN 81 MG ENTERIC TAB PO SCH (09:01)
[2016-05-28] MEDS: BISOPROLOL FUMARATE 10 MG TAB PO SCH (09:02)
[2016-05-28] MEDS: FLUTICASONE PROP 0.05% NASAL SPRAY 16 GM (FLONASE) SCH ×2 (09:02→20:47)
[2016-05-28 12:00] VITALS: BP 132/70
--- NOTE | 2016-05-28 14:06 | IPN ---
DATE: 05/28/2016 at 1:30 p.m. SUBJECTIVE: The patient reports no dyspnea with walking short amounts in his room. He is aware he has ongoing bilateral leg and ankle edema, but reports it is becoming even less. No orthopnea or paroxysmal nocturnal dyspnea (PND). No chest pain or chest discomfort. No lightheadedness or dizziness. No additional voiced complaints. PHYSICAL EXAMINATION: Weight 83.5 kg, temperature 96.1, pulse 72 (regular), respiratory rate 18, blood pressure 132/70, oxygen saturation 92% on oxygen at 3 liters by nasal cannula. Input and output on 05/27/2016 showed patient to be net negative of 1540 mL. Jugular venous pulsations were at 6 cm. First and second heart sounds normal. ICD in situ left pectoral region with two surgical scars that are both well healed. Respiratory expansion and effort was fair. No crackles. No wheezes. Abdomen was soft, nontender, with normal bowel sounds. Abdominal obesity. 4 mm of pitting edema was present at mid and distal tibial level bilaterally. Stasis dermatitis present. LABORATORY WORK: 05/28/2016 was reviewed and showed the following: PT/INR 1.17. Sodium 136, potassium 5.4, chloride 94, CO2 33, BUN 32, creatinine 1.15, estimated GFR greater than 60, glucose 99, albumin 3.1. ASSESSMENT AND PLAN: 1. Heart failure (acute on chronic, diastolic). The patient remains decompensated, but continues to generate an excellent net negative fluid balance and his weight continues to come down. Renal function remains stable. Blood pressure well controlled. He was switched over from IV furosemide to torsemide beginning today. Thus far, he is showing an excellent net negative fluid balance. The plan will be to continue the current heart failure therapy consisting of bisoprolol 10 mg daily, spironolactone 50 mg daily, torsemide 100 mg twice a day. Potassium chloride will be discontinued because potassium level is 5.4 this morning. 2. Abnormal ECG. Stable. 3. Coronary artery disease ([place] vessel), without angina. Remote previous cardiac catheterization showed mild to moderate coronary artery sclerosis. No anginal symptoms. Continue warfarin, aspirin and atorvastatin 80 mg at bedtime. For now, I will hold off on placing the patient on an ERICK inhibitor or ARB due to aggressive diuresis at this time. 4. Hypertensive heart disease (benign, with heart failure). Blood pressure controlled. Heart failure as described above. 5. Chronic obstructive pulmonary disease and emphysema. Stable. No wheezes. Continue albuterol metered dose inhaler. Prednisone will be decreased to 10 mg daily, which he says is his usual dose at home. He will continue on Spiriva. 6. Hypothyroidism. Patient recently discovered to have hypothyroidism and is now on levothyroxine 25 mcg daily. The patient has previously been noted to have thrombus on one of his cardiac rhythm management leads and therefore he is on warfarin buttermaker. He has become subtherapeutic on the PT/INR. Warfarin will be increased to 5 mg daily.
[2016-05-28 16:00] VITALS: BP 125/66
[2016-05-28] MEDS ORDERED: WARFARIN SOD 5 MG TAB PO SCH (17:00)
[2016-05-28 20:00] VITALS: BP 109/59
[2016-05-28] MEDS: ATORVASTATIN 20 MG TAB PO SCH (20:48)
[2016-05-29] VITALS: BP 116/62
[2016-05-29] MEDS: ALBUTEROL SULFATE 2.5 MG/0.5 ML INH NEB SOLN INH SCH ×4 (00:02→11:02)
[2016-05-29 04:00] VITALS: BP 119/64
[2016-05-29] MEDS: LEVOTHYROXINE 0.025 MG TAB (25 MCG) PO SCH (05:37)
[2016-05-29 06:22] LABS: INR 1.19
[2016-05-29 06:39] LABS: CALCIUM LEVEL 8.7 MG/DL (8.8-10.2); CREATININE FOR GFR 1.27 MG/DL (0.70-1.30); GLOMERULAR FILTRATION RATE 59.2 (>42); PHOSPHORUS LEVEL 4.4 MG/DL (2.5-4.9); POTASSIUM SERUM 4.5 MEQ/L (3.5-5.1)
[2016-05-29] MEDS: ADVAIR DISKUS 250/50 INH PWD INH SCH (07:25)
[2016-05-29] MEDS: TIOTROPIUM INHALER/CAPSULE (SPIRIVA) INH SCH (07:25)
[2016-05-29 07:30] VITALS: BP 132/78
[2016-05-29] MEDS ORDERED: predniSONE 10 MG TAB PO SCH (09:00)
[2016-05-29 10:00] VITALS: BP 132/78
[2016-05-29] MEDS: OMEPRAZOLE 20 MG CAP PO SCH (10:00)
[2016-05-29] MEDS: SPIRONOLACTONE 50 MG TAB PO SCH (10:00)
[2016-05-29] MEDS: FLUTICASONE PROP 0.05% NASAL SPRAY 16 GM (FLONASE) SCH (10:00)
[2016-05-29] MEDS: DOCUSATE SODIUM 100 MG CAP PO SCH (10:00)
[2016-05-29] MEDS: BISOPROLOL FUMARATE 10 MG TAB PO SCH (10:00)
[2016-05-29] MEDS: FAMOTIDINE 20 MG TAB PO SCH (10:01)
[2016-05-29] MEDS: TORSEMIDE 100 MG TAB PO SCH (10:01)
[2016-05-29] MEDS: ASPIRIN 81 MG ENTERIC TAB PO SCH (10:01)
[2016-05-29] MEDS ORDERED: BISO10TA PO (12:13)
[2016-05-29] MEDS ORDERED: LEVO25TA5 PO (12:13)
--- NOTE | 2016-05-29 12:58 | DSES ---
DATE OF ADMISSION: 05/24/2016 DATE OF DISCHARGE: DISCHARGE MEDICATIONS: - acetaminophen 650 mg by mouth every 4 hours as needed for pain - albuterol 180 mcg per actuation 2 puffs inhaled every 4 hours as needed for shortness of breath - atorvastatin 80 mg at bedtime - Tums 1000 mg by mouth PC as needed for indigestion - Nexium 40 mg by mouth twice a day - Nitrostat 0.4 mg sublingual every 5 minutes as needed for chest pain - Omnaris 50 mcg one spray as needed for allergies - prednisone 10 mg daily - ranitidine 300 mg at bedtime - saline nasal spray 0.65% 2 sprays four times a day as needed for nasal dryness Advair HFA 2 puffs twice a day - Spironolactone 50 mg daily - tamsulosin 0.4 mg by mouth daily - Spiriva 1 inhalation daily - torsemide 60 mg twice a day - tramadol 50 mg by mouth twice a day - warfarin 4 mg daily except for 6 mg on Tuesdays, and Saturdays - bisoprolol 10 mg daily - levothyroxine 25 mcg daily CLINICAL SUMMARY: Mr. Davion Murphy is a 71-year-old man with chronic diastolic heart failure. He had previous systolic heart failure as well which has resolved following biventricular ICD. He also has chronic right heart failure with chronic cor pulmonale. He is status post biventricular ICD in situ. He has known coronary artery disease with previous remote cardiac catheterization showing mild-moderate coronary atherosclerosis. He is known to have systemic hypertension and hypertensive heart disease (with congestive heart failure). He has chronic obstructive pulmonary disease and emphysema. He wears oxygen 3 liters per minute by nasal cannula. The patient was seen on the day of admission for a heart failure check at our office and at that time he was noted to have severely decompensated heart failure with large amounts of bilateral lower extremity edema. He was therefore admitted to the hospital for a course of IV furosemide. COURSE IN HOSPITAL: The patient received a course of IV furosemide and diuresed very well with this. He was switched over from IV furosemide to torsemide 100 mg by mouth twice a day and responded very well with this, generating an excellent net negative fluid balance. On the day of discharge, furosemide was decreased back to his usual dose of 60 mg by mouth twice a day. He was instructed by Dr. Bagley on the day of discharge to look at all food labels and to compute the ratio of sodium divided by calories and if the ratio is above 1.0 he is best to avoid that food because of its relatively high salt content. During this hospitalization, he was discovered to have mild hypothyroidism confirmed on the basis of two mildly elevated TSH determinations. He was therefore placed on levothyroxine 25 mcg daily. He was switched from atenolol that he was on as an outpatient to bisoprolol 10 mg daily. The patient is on multiple bronchodilators and therefore it is felt to be advantageous to have a more beta one selective beta víctor for which bisoprolol is more beta one selective than atenolol. Furthermore, the beta víctor at the higher amount will help ensure consistent biventricular pacing to take full advantage of the biventricular ICD. On the date of discharge, the patient's vital signs were stable with pulse 72, blood pressure 132/78, oxygen saturation 95% on oxygen at 3 liters per minute by nasal cannula. Temperature 96.0. Jugular venous pulsations at the time of discharge were 5 cm. First and second heart sounds normal. No crackles or wheezes. Fair breath sound intensity. He had 2 mm of bilateral pitting edema at mid and distal tibial level with stasis dermatitis. His mood and affect were normal. He was oriented times three. Laboratory work 05/29/2016 showed sodium 138, potassium 4.5, chloride 92, CO2 39, BUN 38, creatinine 1.27, estimated GFR of 59.2, glucose 92, albumin 3.0. Laboratory work 05/26/2016 showed TSH 8.200. Laboratory work 05/24/2016 showed TSH 8.010. FINAL DIAGNOSES: 1. Heart failure (acute on chronic, now chronic). 2. Abnormal ECG. 3. Status post biventricular ICD in situ. 4. Coronary artery disease ([place] vessel) without angina. 5. Hypertensive heart disease (benign, with heart failure). Blood pressure controlled. 6. Systemic hypertension (primary). Controlled. 7. Chronic obstructive pulmonary disease with emphysema. Stable on oxygen 3 liters per minute by nasal cannula. 8. Hypothyroidism. Total time for this patient's discharge was 35 minutes. This included time to examine the patient, receive laboratory results, prepare the discharge orders including new prescriptions, and to complete this portion of the patient's medical record. Discharge level II.
[2016-05-29] MEDS ORDERED: TORSEMIDE 20 MG TAB PO SCH (17:00)
== END 2016-05-29 15:00 | disposition home or self-care (01) | DRG 292 ==
LOC: M PCU 14:09
PROVIDERS: ADMIT Internal Medicine Cardiovascular Disease; ATTEND Internal Medicine Cardiovascular Disease
DX: I11.0 Hypertensive heart disease with heart failure (principal); J96.12 Chronic respiratory failure with hypercapnia; I42.0 Dilated cardiomyopathy; I44.7 Left bundle-branch block, unspecified; Z95.810 Presence of automatic (implantable) cardiac defibrillator; I50.33 Acute on chronic diastolic (congestive) heart failure; N40.0 Benign prostatic hyperplasia without lower urinary tract symptoms; M35.3 Polymyalgia rheumatica; K22.70 Barrett's esophagus without dysplasia; I34.0 Nonrheumatic mitral (valve) insufficiency; D72.829 Elevated white blood cell count, unspecified; I27.81 Cor pulmonale (chronic); F17.210 Nicotine dependence, cigarettes, uncomplicated; I87.2 Venous insufficiency (chronic) (peripheral); I25.10 Atherosclerotic heart disease of native coronary artery without angina pectoris; E66.3 Overweight; E03.9 Hypothyroidism, unspecified; Z99.81 Dependence on supplemental oxygen; Z68.28 Body mass index [BMI] 28.0-28.9, adult; Z79.899 Other long term (current) drug therapy; Z79.52 Long term (current) use of systemic steroids; Z79.01 Long term (current) use of anticoagulants

== ENCOUNTER 2016-06-17 14:44 | Emergency (ER) | payer MEDICARE ==
[~2016-06-17] VITALS: Ht 175.3 cm; Wt 80.7 kg
[~2016-06-17 14:44] MED LIST changes: +BISO10TA PO; +LEVO25TA5 PO
[2016-06-17] MEDS ORDERED: MORPHINE 2 MG/ML 1ML SYRINGE As Ordered ONE (16:07)
[2016-06-17] MEDS ORDERED: ONDANSETRON 4MG/2ML VIAL (J2405) As Ordered ONE (16:08)
[2016-06-17 16:13] LABS: BASO % 0.2 % (0.0-1.0); EOS # 0.2 K/mm3 (0.0-0.50); EOS % 1.4 % (0.0-3.0); LARGE UNSTAINED CELL # 0.1 K/mm3 (0.0-0.4); LYMPH # 0.7 K/mm3 (1.5-4.5); LYMPH % 4.6 % (24.0-44.0); MEAN CORPUSCULAR HEMOGLOBIN 28.9 pg (27.0-33.0); MEAN CORPUSCULAR HGB CONC 32.7 g/dl (32.0-36.5); MEAN CORPUSCULAR VOLUME 88.4 fl (80.0-96.0); MONO # 0.5 K/mm3 (0.0-0.8); MONO % 4.4 % (0.0-5.0); NEUTROPHILS # 10.6 K/mm3 (1.8-7.7); NEUTROPHILS % 88.4 % (36.0-66.0); PLATELET COUNT, AUTOMATED 312 k/mm3 (150-450); RED CELL DISTRIBUTION WIDTH 14.6 % (11.5-14.5); WHITE BLOOD COUNT 11.9 K/mm3 (4.0-10.0)
[2016-06-17 16:17] LABS: VENOUS BASE EXCESS 7.7 (-2.0-2.0); VENOUS O2 SATURATION 94.5 % (60.0-80.0); VENOUS PARTIAL PRESSURE CO2 50.5 mmHg (38.0-50.0); VENOUS PARTIAL PRESSURE O2 71.3 mmHg (30.0-50.0); VENOUS STANDARD HCO3 31.5 MEQ/L; VENOUS TOTAL CO2 34.8 MEQ/L (24.0-28.0)
[2016-06-17 16:24] LABS: INR 1.26
[2016-06-17 17:30] LABS: CALCIUM LEVEL 8.7 MG/DL (8.8-10.2); CREATININE FOR GFR 1.27 MG/DL (0.70-1.30); FREE T4 1.16 NG/DL (0.76-1.46); GLOMERULAR FILTRATION RATE 59.2 (>42); POTASSIUM SERUM 4.8 MEQ/L (3.5-5.1)
[2016-06-17] MEDS ORDERED: traMADol 50 MG TAB As Ordered ONE (19:28)
--- NOTE | 2016-06-17 19:30 | REPUSA ---
CT of the lumbar spine without contrast Clinical history: Pain. Technique: Multiple axial CT images were obtained through the lumbar spine without administration of contrast. Coronal and sagittal 3-D reconstructed images were also obtained. Findings: The lumbar vertebral bodies are in satisfactory positioning and alignment. No fractures or dislocatio ns are demonstrated. Intervertebral disc space is severely narrowed at L2/L3. Disc osteophyte complex es and disc bulges are seen it L2/L3, L3/L4, and L4/L5. There is no evidence of facet subluxation. Th e neural foramen appear grossly patent. The spinal canal demonstrates normal caliber and contour with out evidence of spinal stenosis. The surrounding soft tissues are within normal limits. Impression: No acute fracture or traumatic injury. Moderate spondylosis with multilevel degenerative disc disease as described. Disc osteophyte complexes and disc bulges at L2/L3, L3/L4, and L4/L5.
[2016-06-17] MEDS ORDERED: TORSEMIDE 20 MG TAB PO SCH (20:15)
--- NOTE | 2016-06-17 21:07 | EDDOCDS ---
Nurse's Notes [facility] Name: Davion Murphy Age: 71 yrs Sex: Male : 1945 Arrival Date: 06/17/2016 Time: 14:44 Bed 12 Private MD: Moe Archer MD Diagnosis: Chronic diastolic (congestive) heart failure;Low back pain-without fracture or acute disc herniation on xray or CT Presentation: 06/17 14:49 Presenting complaint: Patient states: aggravated low back pain since fall one month jjr ago, now has pain with respiration, increased swelling to bilat LE's reports being placed on fluid restriction on discharge from last hospitalization. Acute neurological deficits are not present. Mechanism of Injury: Fall. Adult Sepsis Screening: The patient does not have new or worsening altered mentation. Patient's respiratory rate is less than 22. Systolic blood pressure is greater than 100. Patient has a qSOFA score of 0- Negative Sepsis Screen. Suicide/Homicide risk assessment- the patient denies having any suicidal and/or homicidal ideations and does not present with any other emotional, behavioral or mental health complaints. 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 Transition of care: patient was not received from another setting of care. 14:49 Acuity: BENITO Level 3 jjr 14:49 Method Of Arrival: Wheelchair jjr Triage Assessment: 14:56 General: Appears in no apparent distress. Pain: Location: low back area. jjr Musculoskeletal: Reports pain in low back area. Historical: - Allergies: Latex (Rash); SHELLFISH (Anaphylaxis); SULFA (SULFONAMIDES) (Anaphylaxis); Vicodin (Anaphylaxis); - Home Meds: 1. acetaminophen 325 mg Oral tab 2 tabs q6h prn 2. Advair HFA 230-21 mcg/actuation inhalation HFAA 2 puffs 2 times per day 3. Flomax 0.4 mg Oral cp24 once daily 4. Lipitor 80 mg Oral tab 1 tab once daily 5. Nexium 40 mg Oral cpDR 1 cap 2 times per day 6. nitroglycerin 0.4 mg SL subl 1 tab every 5 minutes 7. omnaris 50 mcg 2 puff daily 8. Oxygen 2.5 l prn Unknown daily 9. prednisone 10 mg Oral tab 1 tab once daily 10. Spiriva with HandiHaler 18 mcg Inhl CpDv 1 cap once daily 11. spironolactone 50 mg Oral tab 1 tab once daily 12. tramadol 50 mg Oral tab 1 tab every 12 hours 13. warfarin 4 mg oral tab once daily 14. torsemide 60 mg oral tab 1 tab twice a day 15. ranitidine HCl 300 mg Oral tab at bedtime 16. bisoprolol fumarate 10 mg oral tab once daily - PMHx: Murphy's Esophagus; BPH; CAD; CHF; Chronic Low Back Pain; COPD; Diverticulitis; Hypercholesterolemia; Hypertension; Kidney stones; Myocardial infarction; Nonbacterial thrombotic endocarditis; Cardiomyopathy; Vegetation of ICD lead; - PSHx: ICD placement; Kidney stone removal; Inguinal hernia; - The history from nurses notes was reviewed: and I agree with what is documented. - Social history: Smoking status: Patient uses tobacco products, current every day smoker. No barriers to communication noted, The patient speaks fluent Kiswahili. - Family history: Not pertinent, Not pertinent. - : The pt / caregiver states he / she is on anticoagulants: coumadin. Home medication list is obtained from the patient. - Hospitalizations: : No recent hospitalization is reported. - Exposure Risk Screening:: None identified. - Immunization history:: All immunizations up-to-date. - Social history:: the patient is a former smoker, the patient does not drink alcohol. Screenin:30 Screening information is obtained from the patient. Fall risk: No risks identified. tm5 Assistance ADL's: requires no assistance with activities of daily living. Abuse/DV Screen: The patient / caregiver reports he/she is: not in a situation that causes fear, pain or injury. Nutritional screening: No deficits noted. Advance Directives: There is no active DNR order. home support is adequate. Assessment: 16:17 General: Appears in no apparent distress, Behavior is appropriate for age, cooperative. ead Pain: Location: back Pain currently is 8 out of 10 on a pain scale. Neurological: No deficits noted. Cardiovascular: Chest pain is denied. Respiratory: Airway is patent Respiratory effort is labored. Derm: Skin is pink, warm & dry. 16:43 General: notified of chemistries hemolyzed. blood redrawn and sent to lab. ead 17:15 General: Appears in no apparent distress, Behavior is appropriate for age, cooperative. ead Neurological: No deficits noted. Respiratory: Airway is patent Respiratory effort is even, unlabored. Derm: Skin is pink, warm & dry. 18:15 General: Appears in no apparent distress, Behavior is appropriate for age, cooperative. ead Neurological: No deficits noted. Respiratory: Airway is patent Respiratory effort is even, unlabored. Derm: Skin is pink, warm & dry. 19:14 General: per industrial ecology technician pt has had his CT scan done . tm5 19:26 Reassessment: Patient states symptoms have not improved. called to pt's room by him tm5 yelling for help, pt asking for more pain medication at this time, aware of this . 19:30 General: pt was medicated with Po Tramadol which he takes at home for pain control, pt tm5 took the PO med but states "that shit hasn't been helping my pain that's why I'm in this dam place". 19:57 General: pharmacy order faxed due to medication needed. tm5 20:19 Reassessment: Patient appears in no apparent distress at this time. Patient states tm5 feeling better. Patient states symptoms have improved. 20:19 General: pt getting dressed for discharge & family member getting pt's Portable O2 tank tm5 ready for him. Vital Signs: 14:46 BP 133 / 61; Pulse 75; Resp 18; Pulse Ox 96% on 2 lpm NC; Weight 87.09 kg (R); Height 5 ct3 ft. 9 in. (175.26 cm) (R); Pain 8/10; 15:03 BP 126 / 67 (auto/); ead 15:06 Pulse 74 MON; Pulse Ox 97% ; ead 15:19 Weight 80.74 kg (M); ead 15:35 Pulse 78 MON; Resp 24; Pulse Ox 96% on 2 lpm NC; ead 16:05 BP 109 / 70 (auto/); ead 16:05 Pulse 72 MON; Pulse Ox 96% ; ead 16:16 Temp 97.6(TE); ead 16:20 BP 97 / 56 (auto/); ead 16:20 Pulse 84 MON; Pulse Ox 95% ; ead 16:35 BP 110 / 64 (auto/); ead 16:35 Pulse 84 MON; Resp 22; Pulse Ox 95% on 2 lpm NC; ead 17:05 BP 113 / 73 (auto/); ead 17:08 Pulse 76 MON; Pulse Ox 96% ; ead 17:20 Pulse 88 MON; Pulse Ox 95% ; ead 17:20 BP 113 / 65 (auto/); ead 17:35 BP 114 / 66 (auto/); ead 17:35 Pulse 72 MON; Pulse Ox 96% ; ead 17:50 BP 115 / 65 (auto/); ead 17:50 Pulse 74 MON; Resp 20; Pulse Ox 96% on R/A; ead 20:00 BP 128 / 69; Pulse 75; Resp 18; Temp 97.9(TE); Pulse Ox 95% on 2 lpm NC; Pain 7/10; mdr 15:19 Body Mass Index 26.29 (80.74 kg, 175.26 cm) ead Vitals: 14:46 Log In Time: June 17, 2016 at 14:46. ct3 ED Course: 14:46 Patient visited by Pattie Gardner PCA. ct3 14:46 Moe Archer is Private Physician. ct3 14:46 Patient moved to Waiting ct3 14:48 Patient moved to Pre RCE ct3 14:51 Triage Initiated jjr 14:57 Myesha Pradhan RN is Primary Nurse. jjr 14:57 Patient moved to 12 jjr 14:58 Mike Salazar MD is Attending Physician. pc 15:08 Patient visited by Mike Salazar MD. pc 15:24 Patient visited by Myesha Pradhan,LOYD. ead 15:44 Patient visited by Myesha Pradhan,LOYD. ead 15:47 [facility] [place] Payment Agreement was scanned into [employer] and attached to record. jp5 16:05 Inserted saline lock: 20 gauge in right antecubital area and blood collected. The ead patient tolerated the procedure well. 16:07 Patient visited by Myesha Pradhan,LOYD. ead 16:07 TSH with Free T4 Sent. ead 16:07 BNP Sent. ead 16:07 INR Sent. ead 16:07 CBC with Diff Sent. ead 16:07 Venous Blood Gas (large pea green tube on ice) Sent. ead 16:07 MED Profile Sent. ead 16:18 Patient visited by Myesha Pradhan,LOYD. ead 16:43 Patient visited by Myesha Pradhan RN. ead 16:45 Patient visited by Myesha Pradhan RN. ead 17:29 Patient visited by Myesha Pradhan RN. ead 17:59 Patient visited by Myesha Pradhan RN. ead 19:03 Patient visited by Myesha Pradhan RN. ead 19:06 Patient visited by Madhuri Krueger RN. tm5 19:06 The patient / caregiver is instructed regarding the plan of care and ED course. Report tm5 received from Myesha HARP, assumed care of pt at this time. 19:[address] Scan. tm5 19:36 CT Spine, Lumbar W/o Contrast Returned. EDMS 19:53 Aaron Bagley MD is Referral Physician. pc 19:53 Moe Archer MD is Referral Physician. pc 20:00 Patient visited by Patrice Jones PCA. mdr 20:19 Discontinued lock intact, bleeding controlled, pressure dressing applied, No tm5 redness/swelling at site. 21:03 Patient visited by Madhuri Krueger RN. tm5 21:05 No procedures done that require assistance. tm5 Administered Medications: 16:13 Drug: Ondansetron 4 mg [ondansetron HCl 2 mg/mL intravenous solution (2 mL)] Route: ead IVP; Site: right antecubital; 16:15 Drug: morphine 2 mg [morphine 2 mg/mL intravenous cartridge (1 mL)] Route: IVP; Site: ead right antecubital; 19:29 Drug: traMADol 50 mg [tramadol 50 mg tablet (1 tabs)] Route: PO; tm5 20:17 Follow up: Response: No Adverse Reaction; Pain is decreased tm5 20:20 Drug: Torsemide 80 mg [torsemide 20 mg tablet (4 tabs)] Route: PO; tm5 21:04 Follow up: Response: Pt left department before re-evaluation is appropriate tm5 Order Results: Lab Order: Venous Blood Gas (large pea green tube on ice); SPEC'M 06/17/16 16:04 Test: VENOUS PH; Value: 7.437; Range: 7.330-7.430; Abnormal: Above high normal; Units: UNITS; Status: F Test: VENOUS PARTIAL PRESSURE CO2; Value: 50.5; Range: 38.0-50.0; Abnormal: Above high normal; Units: mmHg; Status: F Test: VENOUS PARTIAL PRESSURE O2; Value: 71.3; Range: 30.0-50.0; Abnormal: Above high normal; Units: mmHg; Status: F Test: VENOUS TOTAL CO2; Value: 34.8; Range: 24.0-28.0; Abnormal: Above high normal; Units: MEQ/L; Status: F Test: VENOUS HCO3; Value: 33.3; Range: 23.0-27.0; Abnormal: Above high normal; Units: MEQ/L; Status: F Test: VENOUS BASE EXCESS; Value: 7.7; Range: -2.0-2.0; Abnormal: Above high normal; Status: F Test: VENOUS STANDARD HCO3; Value: 31.5; Units: MEQ/L; Status: F Test: VENOUS O2 SATURATION; Value: 94.5; Range: 60.0-80.0; Abnormal: Above high normal; Units: %; Status: F Lab Order: CBC with Diff; SPEC'M 06/17/16 16:04 Test: WHITE BLOOD COUNT; Value: 11.9; Range: 4.0-10.0; Abnormal: Above high normal; Units: K/mm3; Status: F Test: RED BLOOD COUNT; Value: 4.27; Range: 4.30-6.10; Abnormal: Below low normal; Units: M/mm3; Status: F Test: HEMOGLOBIN; Value: 12.3; Range: 14.0-18.0; Abnormal: Below low normal; Units: g/dl; Status: F Test: HEMATOCRIT; Value: 37.7; Range: 42.0-52.0; Abnormal: Below low normal; Units: %; Status: F Test: MEAN CORPUSCULAR VOLUME; Value: 88.4; Range: 80.0-96.0; Units: fl; Status: F Test: MEAN CORPUSCULAR HEMOGLOBIN; Value: 28.9; Range: 27.0-33.0; Units: pg; Status: F Test: MEAN CORPUSCULAR HGB CONC; Value: 32.7; Range: 32.0-36.5; Units: g/dl; Status: F Test: RED CELL DISTRIBUTION WIDTH; Value: 14.6; Range: 11.5-14.5; Abnormal: Above high normal; Units: %; Status: F Test: PLATELET COUNT, AUTOMATED; Value: 312; Range: 150-450; Units: k/mm3; Status: F Test: NEUTROPHILS %; Value: 88.4; Range: 36.0-66.0; Abnormal: Above high normal; Units: %; Status: F Test: LYMPH %; Value: 4.6; Range: 24.0-44.0; Abnormal: Below low normal; Units: %; Status: F Test: MONO %; Value: 4.4; Range: 0.0-5.0; Units: %; Status: F Test: EOS %; Value: 1.4; Range: 0.0-3.0; Units: %; Status: F Test: BASO %; Value: 0.2; Range: 0.0-1.0; Units: %; Status: F Test: LARGE UNSTAINED CELL %; Value: 1.0; Range: 0.0-4.0; Units: %; Status: F Test: NEUTROPHILS #; Value: 10.6; Range: 1.8-7.7; Abnormal: Above high normal; Units: K/mm3; Status: F Test: LYMPH #; Value: 0.7; Range: 1.5-4.5; Abnormal: Below low normal; Units: K/mm3; Status: F Test: MONO #; Value: 0.5; Range: 0.0-0.8; Units: K/mm3; Status: F Test: EOS #; Value: 0.2; Range: 0.0-0.50; Units: K/mm3; Status: F Test: BASO #; Value: 0.0; Range: 0.0-0.2; Units: K/mm3; Status: F Test: LARGE UNSTAINED CELL #; Value: 0.1; Range: 0.0-0.4; Units: K/mm3; Status: F Lab Order: MED Profile; SPEC'M 06/17/16 16:42 Test: GLUCOSE, FASTING; Value: 103; Range: 83-110; Units: MG/DL; Status: F Test: BLOOD UREA NITROGEN; Value: 33; Range: 7-18; Abnormal: Above high normal; Units: MG/DL; Status: F Test: CREATININE FOR GFR; Value: 1.27; Range: 0.70-1.30; Units: MG/DL; Status: F Test: GLOMERULAR FILTRATION RATE; Value: 59.2; Range: >42; Status: F Test: SODIUM LEVEL; Value: 138; Range: 136-145; Units: MEQ/L; Status: F Test: POTASSIUM SERUM; Value: 4.8; Range: 3.5-5.1; Units: MEQ/L; Status: F Test: CHLORIDE LEVEL; Value: 96; Range: 98-107; Abnormal: Below low normal; Units: MEQ/L; Status: F Test: CARBON DIOXIDE LEVEL; Value: 35; Range: 21-32; Abnormal: Above high normal; Units: MEQ/L; Status: F Test: ANION GAP; Value: 7; Range: 8-16; Abnormal: Below low normal; Units: MEQ/L; Status: F Test: CALCIUM LEVEL; Value: 8.7; Range: 8.8-10.2; Abnormal: Below low normal; Units: MG/DL; Status: F Test Note: ; Units are mL/min/1.73 m2 Chronic Kidney Disease Staging per NKF: Stage I & II GFR >=60 Normal to Mildly Decreased Stage III GFR 30-59 Moderately Decreased Stage IV GFR 15-29 Severely Decreased Stage V GFR <15 Very Little GFR Left ESRD GFR <15 on [facility] Lab Order: BNP; SPEC'M 06/17/16 16:04 Test: BRAIN NATRIURETIC PEPTIDE; Value: 48.4; Range: <100; Units: PG/ML; Status: F Lab Order: INR; SPEC'M 06/17/16 16:04 Test: PROTHROMBIN TIME; Value: 15.9; Range: 12.3-14.5; Abnormal: Above high normal; Units: SECONDS; Status: F Test: INR; Value: 1.26; Status: F Test Note: ; THERAPUTIC HUMAN INR VALUES INDICATIONS NORMAL RANGES PROPHYLAXIS/TREATMENT OF: VENOUS THROMBOSIS 2.0-3.0 PULMONARY EMBOLISM 2.0-3.0 PREVENTION OF SYSTEMIC EMBOLISM FROM: TISSUE HEART VALVES 2.0-3.0 ACUTE MYOCARDIAL INFARCTION 2.0-3.0 VALVULAR HEART DISEASE 2.0-3.0 ATRIAL FIBRILLATION 2.0-3.0 MECHANICAL VALVES(HIGH RISK) 2.5-3.5 RECURRENT MYOCARDIAL INFARCTION 2.5-3.5 Lab Order: TSH with Free T4; SPEC'M 06/17/16 16:42 Test: THYROID STIMULATING HORMONE; Value: 4.580; Range: 0.358-3.740; Abnormal: Above high normal; Units: uIU/ML; Status: F Test: FREE T4; Value: 1.16; Range: 0.76-1.46; Units: NG/DL; Status: F Radiology Order: CT Spine, Lumbar W/o Contrast Test: CT Spine, Lumbar W/o Contrast REASON FOR EXAMINATION: Trauma; ; CT of the lumbar spine without contrast; Clinical history: Pain.; Technique: Multiple axial CT images were obtained through the lumbar spine without administration of; contrast. Coronal and sagittal 3-D reconstructed images were also obtained.; Findings:; The lumbar vertebral bodies are in satisfactory positioning and alignment. No fractures or dislocatio; ns are demonstrated. Intervertebral disc space is severely narrowed at L2/L3. Disc osteophyte complex; es and disc bulges are seen it L2/L3, L3/L4, and L4/L5. There is no evidence of facet subluxation. Th; e neural foramen appear grossly patent. The spinal canal demonstrates normal caliber and contour with; out evidence of spinal stenosis. The surrounding soft tissues are within normal limits.; Impression: No acute fracture or traumatic injury. Moderate spondylosis with multilevel degenerative; disc disease as described. Disc osteophyte complexes and disc bulges at L2/L3, L3/L4, and L4/L5.; ; Outcome: 19:53 Discharge ordered by Provider. pc 20:30 Discharge Assessment: Patient awake, alert and oriented x 3. No cognitive and/or tm5 functional deficits noted. Patient verbalized understanding of disposition instructions. patient administered narcotics - yes. Pt provided with safe discharge. 20:30 The following High Risk Discharge criteria are identified: None. Discharged to home via tm5 wheelchair, with friend. Condition: good Condition: stable Condition: improved. Discharge instructions given to patient, Instructed on discharge instructions, follow up and referral plans. medication usage, Demonstrated understanding of instructions, medications, Pt was receptive of discharge instructions/ teaching. Prescriptions given X 1. CT Study completed. Property :Personal belongings accompany Pt. 21:05 Patient left the ED. tm5 Signatures: Dispatcher [employer] EDMS Mike Salazar MD MD pc Raymond, Jessica, RN RN Pattie Ortiz, GRINDER OPERATOR EXTERNAL TOOL GRINDER OPERATOR EXTERNAL TOOL ct3 Myesha Pradhan,LOYD RN Facundo Ramsey jp5 Patrice Jones, GRINDER OPERATOR EXTERNAL TOOL GRINDER OPERATOR EXTERNAL TOOL mdr Madhuri Krueger,LOYD RN tm5 Corrections: (The following items were deleted from the chart) 15:37 14:56 Home Meds: torsemide 20 mg oral tab 1 tab twice a day; ludwin rojo MTDD
--- NOTE | 2016-06-18 07:21 | REP ---
CHEST X-RAY, PA AND LATERAL: 06/17/2016. Clinical history: Dyspnea. Comparison: Chest x-ray 05/24/2016 and 05/09/2016. Findings: Lungs are well inflated. There is basilar fibrotic change and linear scar or atelectasis in both bases similar previous study. There is no definite acute infiltrate. Pulmonary arteries are prominent centrally. There is no pleural effusion, vascular redistribution or pulmonary edema. The aorta is mildly tortuous but normal for age. Airway intact. Bony thorax without acute compression deformity. Impression: 1. Multi lead AICD pacer unchanged with COPD, pulmonary artery hypertension, bibasilar linear fibrotic changes and no evidence of acute infiltrate, effusion or edema. Heart size unchanged. Stable chest. Signed by Vazquez Valdez MD 06/18/2016 09:16 A
--- NOTE | 2016-06-18 07:23 | REP ---
LUMBAR SPINE COMPLETE: 06/17/2016. Comparison: 05/09/2016, 03/17/2013 x-ray. Clinical history: Low back pain after a fall. Technologist notes images are best possible, the patient could not tolerate lying flat. Four images provided. There is extensive lumbar spondylosis with very large anterior osteophytes at L2-3 and diffuse osteophytes from the lower thoracic through the L5-S1 level. Disc space height preserved at L5-S1. Slight narrowing at the other levels, greatest at L2-3. There is no acute compression wedge deformity. There is facet arthritis at L4-5 and L5-S1. Diffuse atherosclerotic calcifications of the aorta without aneurysm. There is a dextrorotatory curve of the thoracolumbar junction. Sacral ala, foramina and SI joints intact. The symphysis pubis, pubic rami visible and the pelvic ring intact. Hip joint space is symmetric. Iliac wings visible intact. Impression: 1. Extensive lumbar spondylosis with a dextrorotatory curvature thoracolumbar junction and diffuse degenerative disc disease with osteophytes at all levels, greatest at L1-2 and L2-3 with disc space narrowing greatest at L2-3. No acute finding or interval change. Technically challenging examination. CT would be more sensitive for fracture detection if you have a high clinical index of suspicion. Signed by Vazquez Valdez MD 06/18/2016 09:17 A
--- NOTE | 2016-06-19 22:06 | EDDOCDS ---
Physician Documentation [facility] Name: Davion Murphy Age: 71 yrs Sex: Male : 1945 Arrival Date: 06/17/2016 Time: 14:44 Bed 12 Private MD: Moe Archer MD Disposition: 06/17 19:44 Critical Care: Critical care not applicable. pc 19:50 Critical Care: Critical care not applicable. pc Disposition: 06/17/16 19:53 Discharged to Home/Self Care. Impression: Chronic diastolic (congestive) heart failure, Low back pain - without fracture or acute disc herniation on xray or CT. - Condition is Stable. - Discharge Instructions: Back Pain, Adult, Heart Failure. - Prescriptions for torsemide 20 mg Oral tablet - take 4 tablet by ORAL route 2 times per day; 240 tablet. - Medication Reconciliation, Local Pharmacy Hours form. - Follow up: Aaron Bagley MD; When: Per Dr. Bagley, his office will contacting you tomorrow to arrange follow up. Follow up: Moe Archer MD; When: Call to arrange an appointment; Reason: Continuance of care. - Problem is an acute exacerbation. - Symptoms have improved. HPI: 15:34 This 71 yrs old Male presents to ER via Wheelchair with complaints of Back pc Pain. 15:34 The history is obtained from the patient. He has been having low back pain for 6 weeks pc after a fall, in the setting of chronic low back pain. He has also redeveloped significant swelling in his LEs, despite his diuretic changes and his fluid restrictions. His weight today is 2kg less than on discharge 3 weeks ago, after an admission for CHF and diuresis of over 6kg. He denies any increased SOB, denies chest pain, no fevers or chills, no GI or symptoms. The patient has experienced similar episodes in the past, chronically. The patient has been recently seen by their primary care provider, 3 day(s) ago, with similar presenting complaints. Historical: - Allergies: Latex (Rash); SHELLFISH (Anaphylaxis); SULFA (SULFONAMIDES) (Anaphylaxis); Vicodin (Anaphylaxis); - Home Meds: 1. acetaminophen 325 mg Oral tab 2 tabs q6h prn 2. Advair HFA 230-21 mcg/actuation inhalation HFAA 2 puffs 2 times per day 3. Flomax 0.4 mg Oral cp24 once daily 4. Lipitor 80 mg Oral tab 1 tab once daily 5. Nexium 40 mg Oral cpDR 1 cap 2 times per day 6. nitroglycerin 0.4 mg SL subl 1 tab every 5 minutes 7. omnaris 50 mcg 2 puff daily 8. Oxygen 2.5 l prn Unknown daily 9. prednisone 10 mg Oral tab 1 tab once daily 10. Spiriva with HandiHaler 18 mcg Inhl CpDv 1 cap once daily 11. spironolactone 50 mg Oral tab 1 tab once daily 12. tramadol 50 mg Oral tab 1 tab every 12 hours 13. warfarin 4 mg oral tab once daily 14. torsemide 60 mg oral tab 1 tab twice a day 15. ranitidine HCl 300 mg Oral tab at bedtime 16. bisoprolol fumarate 10 mg oral tab once daily - PMHx: Murphy's Esophagus; BPH; CAD; CHF; Chronic Low Back Pain; COPD; Diverticulitis; Hypercholesterolemia; Hypertension; Kidney stones; Myocardial infarction; Nonbacterial thrombotic endocarditis; Cardiomyopathy; Vegetation of ICD lead; - PSHx: ICD placement; Kidney stone removal; Inguinal hernia; - The history from nurses notes was reviewed: and I agree with what is documented. - Social history: Smoking status: Patient uses tobacco products, current every day smoker. No barriers to communication noted, The patient speaks fluent [place]. - Family history: Not pertinent, Not pertinent. - : The pt / caregiver states he / she is on anticoagulants: coumadin. Home medication list is obtained from the patient. - Hospitalizations: : No recent hospitalization is reported. - Exposure Risk Screening:: None identified. - Immunization history:: All immunizations up-to-date. - Social history:: the patient is a former smoker, the patient does not drink alcohol. ROS: 15:34 All systems are negative except as listed. pc Exam: 15:34 General Appearance: alert, the patient is in mild distress. pc 15:34 EENT: normal eye inspection, ears, nose and throat normal, pharynx normal, mucous membranes moist 15:34 Neck: The exam reveals no acute abnormalities. ROM is normal and painless. No nuchal rigidity is noted.. 15:34 Respiratory: no respiratory distress, Breath sounds: wheezing, scattered, Decreased breath sounds, in the left posterior lower lobe and right posterior lower lobe. 15:34 CVS: regular pulse rate, regular rhythm, normal S1 and S2, no murmurs, strong peripheral pulses, normal capillary refill. 15:34 Abdomen: soft, non-tender, no organomegaly, normal bowel sounds. 15:34 Back: Pain is noted in the lumbar area. 15:34 Skin: skin color is normal, warm, dry. 15:34 Extremities: with pedal edema noted, is 3+ edema bilaterally 15:34 Neuro: oriented x 3, cranial nerves normal as tested, no motor deficits, no sensory deficits. 15:34 Psych: normal mood. Vital Signs: 14:46 BP 133 / 61; Pulse 75; Resp 18; Pulse Ox 96% on 2 lpm NC; Weight 87.09 kg / 192 lbs ct3 (R); Height 5 ft. 9 in. (175.26 cm) (R); Pain 8/10; 15:03 BP 126 / 67 (auto/); ead 15:06 Pulse 74 MON; Pulse Ox 97% ; ead 15:19 Weight 80.74 kg / 178 lbs (M); ead 15:35 Pulse 78 MON; Resp 24; Pulse Ox 96% on 2 lpm NC; ead 16:05 BP 109 / 70 (auto/); ead 16:05 Pulse 72 MON; Pulse Ox 96% ; ead 16:16 Temp 97.6(TE); ead 16:20 BP 97 / 56 (auto/); ead 16:20 Pulse 84 MON; Pulse Ox 95% ; ead 16:35 BP 110 / 64 (auto/); ead 16:35 Pulse 84 MON; Resp 22; Pulse Ox 95% on 2 lpm NC; ead 17:05 BP 113 / 73 (auto/); ead 17:08 Pulse 76 MON; Pulse Ox 96% ; ead 17:20 Pulse 88 MON; Pulse Ox 95% ; ead 17:20 BP 113 / 65 (auto/); ead 17:35 BP 114 / 66 (auto/); ead 17:35 Pulse 72 MON; Pulse Ox 96% ; ead 17:50 BP 115 / 65 (auto/); ead 17:50 Pulse 74 MON; Resp 20; Pulse Ox 96% on R/A; ead 20:00 BP 128 / 69; Pulse 75; Resp 18; Temp 97.9(TE); Pulse Ox 95% on 2 lpm NC; Pain 7/10; mdr 15:19 Body Mass Index 26.29 (80.74 kg, 175.26 cm) ead MDM: 15:09 Weigh Pt on scale, in Kg (Do Not Use Reported Weight) ordered. pc 15:34 IV Saline Lock ordered. pc 15:34 Differential Diagnosis: peripheral edema with chronic diastolic CHF and COPD; pc persistent low back pain after fall. Plan: labs, imaging, meds. 15:35 Venous Blood Gas (large pea green tube on ice) Ordered. EDMS 15:35 CBC with Diff Ordered. EDMS 15:35 MED Profile Ordered. EDMS 15:35 BNP Ordered. EDMS 15:35 INR Ordered. EDMS 15:35 TSH with Free T4 Ordered. EDMS 15:35 Spine. Lumbosacral, Complete Ordered. EDMS 15:35 Chest, 2 View (pa\E\lat) Ordered. EDMS 15:47 [facility] Payment Agreement was scanned into [employer] and attached to record. jp5 15:47 Financial registration complete. jp5 16:07 morphine 2 mg IVP once ordered. pc 16:07 Ondansetron 4 mg IVP once ordered. pc 16:31 Venous Blood Gas (large pea green tube on ice) Reviewed. pc 16:31 CBC with Diff Reviewed. pc 16:31 INR Reviewed. pc 17:20 BNP Reviewed. pc 17:21 CT Spine, Lumbar W/o Contrast Ordered. EDMS 17:36 MED Profile Reviewed. pc 17:36 TSH with Free T4 Reviewed. pc 19:29 traMADol 50 mg PO once ordered. 5 19:44 Data reviewed: old medical records, vital signs, nurses notes, lab test results, all pc radiology studies and available results. 19:44 Test interpretation: LAB - all labs as ordered have been reviewed, interpreted and pc considered in the overall management of the clinical presentation; Arterial blood gas X-RAY - interpreted by Radiologist and personally reviewed, 2 view chest, stable, nad LS-Spine DDD at multiple levels, no definite fractures interpreted by Radiologist and personally reviewed, L-Spine CT; no acute fractures. multilevel DDD, disc osteophytes and disc bulges at L2-3, L3-4, L4-5. The patient has been re-examined and re-evaluated. The patient's symptoms have mildly improved after treatment. Disposition: The historical points, examination findings, and any diagnostic results supporting the provided diagnosis, were discussed with the patient or legal guardian. The need for outpatient follow up with the provider listed on their discharge instructions was discussed. They were encouraged to return to [facility], or the nearest ED, if symptoms worsen/persist, or for any other questions/concerns. 19:50 Physician consultation: Dr. Aaron Bagley MD was contacted at 19:51, regarding pc patient's condition, and advises the medications/treatment as provided. and agrees with the treatment provided and advises the discharge plans as outlined. 19:54 Torsemide 80 mg PO once ordered. pc Administered Medications: 16:13 Drug: Ondansetron 4 mg [ondansetron HCl 2 mg/mL intravenous solution (2 mL)] Route: ead IVP; Site: right antecubital; 16:15 Drug: morphine 2 mg [morphine 2 mg/mL intravenous cartridge (1 mL)] Route: IVP; Site: ead right antecubital; 19:29 Drug: traMADol 50 mg [tramadol 50 mg tablet (1 tabs)] Route: PO; tm5 20:17 Follow up: Response: No Adverse Reaction; Pain is decreased tm5 20:20 Drug: Torsemide 80 mg [torsemide 20 mg tablet (4 tabs)] Route: PO; tm5 21:04 Follow up: Response: Pt left department before re-evaluation is appropriate tm5 Signatures: Dispatcher [employer] EDMike Lundberg MD MD Rosi De Jesus RN RN jjr Dunaway, Emily, RN RN ead Price, Jennalee 5 Madhuri KruegerRN RN tm5 The chart was reviewed and I authenticate all verbal orders and agree with the evaluation and treatment provided.Corrections: (The following items were deleted from the chart) 15:37 14:56 Home Meds: torsemide 20 mg oral tab 1 tab twice a day; ludwin rojo Attachments: 15:47 [facility] Payment Agreement jp5 Chart Complete MTDD
--- NOTE | 2016-06-19 22:07 | EDDOCDS ---
Nurse's Notes [facility] Name: Davion Murphy Age: 71 yrs Sex: Male : 1945 Arrival Date: 06/17/2016 Time: 14:44 Bed 12 Private MD: Moe Archer MD Diagnosis: Chronic diastolic (congestive) heart failure;Low back pain-without fracture or acute disc herniation on xray or CT Presentation: 06/17 14:49 Presenting complaint: Patient states: aggravated low back pain since fall one month jjr ago, now has pain with respiration, increased swelling to bilat LE's reports being placed on fluid restriction on discharge from last hospitalization. Acute neurological deficits are not present. Mechanism of Injury: Fall. Adult Sepsis Screening: The patient does not have new or worsening altered mentation. Patient's respiratory rate is less than 22. Systolic blood pressure is greater than 100. Patient has a qSOFA score of 0- Negative Sepsis Screen. Suicide/Homicide risk assessment- the patient denies having any suicidal and/or homicidal ideations and does not present with any other emotional, behavioral or mental health complaints. 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 Transition of care: patient was not received from another setting of care. 14:49 Acuity: BENITO Level 3 jjr 14:49 Method Of Arrival: Wheelchair jjr Triage Assessment: 14:56 General: Appears in no apparent distress. Pain: Location: low back area. jjr Musculoskeletal: Reports pain in low back area. Historical: - Allergies: Latex (Rash); SHELLFISH (Anaphylaxis); SULFA (SULFONAMIDES) (Anaphylaxis); Vicodin (Anaphylaxis); - Home Meds: 1. acetaminophen 325 mg Oral tab 2 tabs q6h prn 2. Advair HFA 230-21 mcg/actuation inhalation HFAA 2 puffs 2 times per day 3. Flomax 0.4 mg Oral cp24 once daily 4. Lipitor 80 mg Oral tab 1 tab once daily 5. Nexium 40 mg Oral cpDR 1 cap 2 times per day 6. nitroglycerin 0.4 mg SL subl 1 tab every 5 minutes 7. omnaris 50 mcg 2 puff daily 8. Oxygen 2.5 l prn Unknown daily 9. prednisone 10 mg Oral tab 1 tab once daily 10. Spiriva with HandiHaler 18 mcg Inhl CpDv 1 cap once daily 11. spironolactone 50 mg Oral tab 1 tab once daily 12. tramadol 50 mg Oral tab 1 tab every 12 hours 13. warfarin 4 mg oral tab once daily 14. torsemide 60 mg oral tab 1 tab twice a day 15. ranitidine HCl 300 mg Oral tab at bedtime 16. bisoprolol fumarate 10 mg oral tab once daily - PMHx: Murphy's Esophagus; BPH; CAD; CHF; Chronic Low Back Pain; COPD; Diverticulitis; Hypercholesterolemia; Hypertension; Kidney stones; Myocardial infarction; Nonbacterial thrombotic endocarditis; Cardiomyopathy; Vegetation of ICD lead; - PSHx: ICD placement; Kidney stone removal; Inguinal hernia; - The history from nurses notes was reviewed: and I agree with what is documented. - Social history: Smoking status: Patient uses tobacco products, current every day smoker. No barriers to communication noted, The patient speaks fluent Pashto. - Family history: Not pertinent, Not pertinent. - : The pt / caregiver states he / she is on anticoagulants: coumadin. Home medication list is obtained from the patient. - Hospitalizations: : No recent hospitalization is reported. - Exposure Risk Screening:: None identified. - Immunization history:: All immunizations up-to-date. - Social history:: the patient is a former smoker, the patient does not drink alcohol. Screenin:30 Screening information is obtained from the patient. Fall risk: No risks identified. tm5 Assistance ADL's: requires no assistance with activities of daily living. Abuse/DV Screen: The patient / caregiver reports he/she is: not in a situation that causes fear, pain or injury. Nutritional screening: No deficits noted. Advance Directives: There is no active DNR order. home support is adequate. Assessment: 16:17 General: Appears in no apparent distress, Behavior is appropriate for age, cooperative. ead Pain: Location: back Pain currently is 8 out of 10 on a pain scale. Neurological: No deficits noted. Cardiovascular: Chest pain is denied. Respiratory: Airway is patent Respiratory effort is labored. Derm: Skin is pink, warm & dry. 16:43 General: notified of chemistries hemolyzed. blood redrawn and sent to lab. ead 17:15 General: Appears in no apparent distress, Behavior is appropriate for age, cooperative. ead Neurological: No deficits noted. Respiratory: Airway is patent Respiratory effort is even, unlabored. Derm: Skin is pink, warm & dry. 18:15 General: Appears in no apparent distress, Behavior is appropriate for age, cooperative. ead Neurological: No deficits noted. Respiratory: Airway is patent Respiratory effort is even, unlabored. Derm: Skin is pink, warm & dry. 19:14 General: per motorcycle technician pt has had his CT scan done . tm5 19:26 Reassessment: Patient states symptoms have not improved. called to pt's room by him tm5 yelling for help, pt asking for more pain medication at this time, aware of this . 19:30 General: pt was medicated with Po Tramadol which he takes at home for pain control, pt tm5 took the PO med but states "that shit hasn't been helping my pain that's why I'm in this dam place". 19:57 General: pharmacy order faxed due to medication needed. tm5 20:19 Reassessment: Patient appears in no apparent distress at this time. Patient states tm5 feeling better. Patient states symptoms have improved. 20:19 General: pt getting dressed for discharge & family member getting pt's Portable O2 tank tm5 ready for him. Vital Signs: 14:46 BP 133 / 61; Pulse 75; Resp 18; Pulse Ox 96% on 2 lpm NC; Weight 87.09 kg (R); Height 5 ct3 ft. 9 in. (175.26 cm) (R); Pain 8/10; 15:03 BP 126 / 67 (auto/); ead 15:06 Pulse 74 MON; Pulse Ox 97% ; ead 15:19 Weight 80.74 kg (M); ead 15:35 Pulse 78 MON; Resp 24; Pulse Ox 96% on 2 lpm NC; ead 16:05 BP 109 / 70 (auto/); ead 16:05 Pulse 72 MON; Pulse Ox 96% ; ead 16:16 Temp 97.6(TE); ead 16:20 BP 97 / 56 (auto/); ead 16:20 Pulse 84 MON; Pulse Ox 95% ; ead 16:35 BP 110 / 64 (auto/); ead 16:35 Pulse 84 MON; Resp 22; Pulse Ox 95% on 2 lpm NC; ead 17:05 BP 113 / 73 (auto/); ead 17:08 Pulse 76 MON; Pulse Ox 96% ; ead 17:20 Pulse 88 MON; Pulse Ox 95% ; ead 17:20 BP 113 / 65 (auto/); ead 17:35 BP 114 / 66 (auto/); ead 17:35 Pulse 72 MON; Pulse Ox 96% ; ead 17:50 BP 115 / 65 (auto/); ead 17:50 Pulse 74 MON; Resp 20; Pulse Ox 96% on R/A; ead 20:00 BP 128 / 69; Pulse 75; Resp 18; Temp 97.9(TE); Pulse Ox 95% on 2 lpm NC; Pain 7/10; mdr 15:19 Body Mass Index 26.29 (80.74 kg, 175.26 cm) ead Vitals: 14:46 Log In Time: June 17, 2016 at 14:46. ct3 ED Course: 14:46 Patient visited by Pattie Gardner PCA. ct3 14:46 Moe Archer is Private Physician. ct3 14:46 Patient moved to Waiting ct3 14:48 Patient moved to Pre RCE ct3 14:51 Triage Initiated jjr 14:57 Myesha Pradhan RN is Primary Nurse. jjr 14:57 Patient moved to 12 jjr 14:58 Mike Salazar MD is Attending Physician. pc 15:08 Patient visited by Mike Salazar MD. pc 15:24 Patient visited by Myesha Pradhan,LOYD. ead 15:44 Patient visited by Myesha Pradhan,LOYD. ead 15:47 [facility] Payment Agreement was scanned into [employer] and attached to record. jp5 16:05 Inserted saline lock: 20 gauge in right antecubital area and blood collected. The ead patient tolerated the procedure well. 16:07 Patient visited by Myesha Pradhan,LOYD. ead 16:07 TSH with Free T4 Sent. ead 16:07 BNP Sent. ead 16:07 INR Sent. ead 16:07 CBC with Diff Sent. ead 16:07 Venous Blood Gas (large pea green tube on ice) Sent. ead 16:07 MED Profile Sent. ead 16:18 Patient visited by Myesha Pradhan,LOYD. ead 16:43 Patient visited by Myesha Pradhan RN. ead 16:45 Patient visited by Myesha Pradhan,LOYD. ead 17:29 Patient visited by Myesha Pradhan RN. ead 17:59 Patient visited by Myesha Pradhan RN. ead 19:03 Patient visited by Myesha Pradhan RN. ead 19:06 Patient visited by Madhuri Krueger RN. tm5 19:06 The patient / caregiver is instructed regarding the plan of care and ED course. Report tm5 received from Myesha HARP, assumed care of pt at this time. 19:[address] Scan. tm5 19:36 CT Spine, Lumbar W/o Contrast Returned. EDMS 19:53 Aaron Bagley MD is Referral Physician. pc 19:53 Moe Archer MD is Referral Physician. pc 20:00 Patient visited by Patrice Jones PCA. mdr 20:19 Discontinued lock intact, bleeding controlled, pressure dressing applied, No tm5 redness/swelling at site. 21:03 Patient visited by Madhuri Krueger RN. tm5 21:05 No procedures done that require assistance. tm5 02 07:21 Chest, 2 View (pa\\E\\lat) Returned. EDMS 07:46 Spine. Lumbosacral, Complete Returned. EDMS Administered Medications: 06/17 16:13 Drug: Ondansetron 4 mg [ondansetron HCl 2 mg/mL intravenous solution (2 mL)] Route: ead IVP; Site: right antecubital; 16:15 Drug: morphine 2 mg [morphine 2 mg/mL intravenous cartridge (1 mL)] Route: IVP; Site: ead right antecubital; 19:29 Drug: traMADol 50 mg [tramadol 50 mg tablet (1 tabs)] Route: PO; tm5 20:17 Follow up: Response: No Adverse Reaction; Pain is decreased tm5 20:20 Drug: Torsemide 80 mg [torsemide 20 mg tablet (4 tabs)] Route: PO; tm5 21:04 Follow up: Response: Pt left department before re-evaluation is appropriate tm5 Order Results: Lab Order: Venous Blood Gas (large pea green tube on ice); SPEC'M 06/17/16 16:04 Test: VENOUS PH; Value: 7.437; Range: 7.330-7.430; Abnormal: Above high normal; Units: UNITS; Status: F Test: VENOUS PARTIAL PRESSURE CO2; Value: 50.5; Range: 38.0-50.0; Abnormal: Above high normal; Units: mmHg; Status: F Test: VENOUS PARTIAL PRESSURE O2; Value: 71.3; Range: 30.0-50.0; Abnormal: Above high normal; Units: mmHg; Status: F Test: VENOUS TOTAL CO2; Value: 34.8; Range: 24.0-28.0; Abnormal: Above high normal; Units: MEQ/L; Status: F Test: VENOUS HCO3; Value: 33.3; Range: 23.0-27.0; Abnormal: Above high normal; Units: MEQ/L; Status: F Test: VENOUS BASE EXCESS; Value: 7.7; Range: -2.0-2.0; Abnormal: Above high normal; Status: F Test: VENOUS STANDARD HCO3; Value: 31.5; Units: MEQ/L; Status: F Test: VENOUS O2 SATURATION; Value: 94.5; Range: 60.0-80.0; Abnormal: Above high normal; Units: %; Status: F Lab Order: CBC with Diff; SPEC'M 06/17/16 16:04 Test: WHITE BLOOD COUNT; Value: 11.9; Range: 4.0-10.0; Abnormal: Above high normal; Units: K/mm3; Status: F Test: RED BLOOD COUNT; Value: 4.27; Range: 4.30-6.10; Abnormal: Below low normal; Units: M/mm3; Status: F Test: HEMOGLOBIN; Value: 12.3; Range: 14.0-18.0; Abnormal: Below low normal; Units: g/dl; Status: F Test: HEMATOCRIT; Value: 37.7; Range: 42.0-52.0; Abnormal: Below low normal; Units: %; Status: F Test: MEAN CORPUSCULAR VOLUME; Value: 88.4; Range: 80.0-96.0; Units: fl; Status: F Test: MEAN CORPUSCULAR HEMOGLOBIN; Value: 28.9; Range: 27.0-33.0; Units: pg; Status: F Test: MEAN CORPUSCULAR HGB CONC; Value: 32.7; Range: 32.0-36.5; Units: g/dl; Status: F Test: RED CELL DISTRIBUTION WIDTH; Value: 14.6; Range: 11.5-14.5; Abnormal: Above high normal; Units: %; Status: F Test: PLATELET COUNT, AUTOMATED; Value: 312; Range: 150-450; Units: k/mm3; Status: F Test: NEUTROPHILS %; Value: 88.4; Range: 36.0-66.0; Abnormal: Above high normal; Units: %; Status: F Test: LYMPH %; Value: 4.6; Range: 24.0-44.0; Abnormal: Below low normal; Units: %; Status: F Test: MONO %; Value: 4.4; Range: 0.0-5.0; Units: %; Status: F Test: EOS %; Value: 1.4; Range: 0.0-3.0; Units: %; Status: F Test: BASO %; Value: 0.2; Range: 0.0-1.0; Units: %; Status: F Test: LARGE UNSTAINED CELL %; Value: 1.0; Range: 0.0-4.0; Units: %; Status: F Test: NEUTROPHILS #; Value: 10.6; Range: 1.8-7.7; Abnormal: Above high normal; Units: K/mm3; Status: F Test: LYMPH #; Value: 0.7; Range: 1.5-4.5; Abnormal: Below low normal; Units: K/mm3; Status: F Test: MONO #; Value: 0.5; Range: 0.0-0.8; Units: K/mm3; Status: F Test: EOS #; Value: 0.2; Range: 0.0-0.50; Units: K/mm3; Status: F Test: BASO #; Value: 0.0; Range: 0.0-0.2; Units: K/mm3; Status: F Test: LARGE UNSTAINED CELL #; Value: 0.1; Range: 0.0-0.4; Units: K/mm3; Status: F Lab Order: MED Profile; [facility]' 06/17/16 16:42 Test: GLUCOSE, FASTING; Value: 103; Range: 83-110; Units: MG/DL; Status: F Test: BLOOD UREA NITROGEN; Value: 33; Range: 7-18; Abnormal: Above high normal; Units: MG/DL; Status: F Test: CREATININE FOR GFR; Value: 1.27; Range: 0.70-1.30; Units: MG/DL; Status: F Test: GLOMERULAR FILTRATION RATE; Value: 59.2; Range: >42; Status: F Test: SODIUM LEVEL; Value: 138; Range: 136-145; Units: MEQ/L; Status: F Test: POTASSIUM SERUM; Value: 4.8; Range: 3.5-5.1; Units: MEQ/L; Status: F Test: CHLORIDE LEVEL; Value: 96; Range: 98-107; Abnormal: Below low normal; Units: MEQ/L; Status: F Test: CARBON DIOXIDE LEVEL; Value: 35; Range: 21-32; Abnormal: Above high normal; Units: MEQ/L; Status: F Test: ANION GAP; Value: 7; Range: 8-16; Abnormal: Below low normal; Units: MEQ/L; Status: F Test: CALCIUM LEVEL; Value: 8.7; Range: 8.8-10.2; Abnormal: Below low normal; Units: MG/DL; Status: F Test Note: ; Units are mL/min/1.73 m2 Chronic Kidney Disease Staging per NKF: Stage I & II GFR >=60 Normal to Mildly Decreased Stage III GFR 30-59 Moderately Decreased Stage IV GFR 15-29 Severely Decreased Stage V GFR <15 Very Little GFR Left ESRD GFR <15 on [facility] Lab Order: BNP; SPEC'M 06/17/16 16:04 Test: BRAIN NATRIURETIC PEPTIDE; Value: 48.4; Range: <100; Units: PG/ML; Status: F Lab Order: INR; SPEC'M 06/17/16 16:04 Test: PROTHROMBIN TIME; Value: 15.9; Range: 12.3-14.5; Abnormal: Above high normal; Units: SECONDS; Status: F Test: INR; Value: 1.26; Status: F Test Note: ; THERAPUTIC HUMAN INR VALUES INDICATIONS NORMAL RANGES PROPHYLAXIS/TREATMENT OF: VENOUS THROMBOSIS 2.0-3.0 PULMONARY EMBOLISM 2.0-3.0 PREVENTION OF SYSTEMIC EMBOLISM FROM: TISSUE HEART VALVES 2.0-3.0 ACUTE MYOCARDIAL INFARCTION 2.0-3.0 VALVULAR HEART DISEASE 2.0-3.0 ATRIAL FIBRILLATION 2.0-3.0 MECHANICAL VALVES(HIGH RISK) 2.5-3.5 RECURRENT MYOCARDIAL INFARCTION 2.5-3.5 Lab Order: TSH with Free T4; SPEC'M 06/17/16 16:42 Test: THYROID STIMULATING HORMONE; Value: 4.580; Range: 0.358-3.740; Abnormal: Above high normal; Units: uIU/ML; Status: F Test: FREE T4; Value: 1.16; Range: 0.76-1.46; Units: NG/DL; Status: F Radiology Order: Spine. Lumbosacral, Complete Test: Spine. Lumbosacral, Complete REASON FOR EXAMINATION: low back pain after fall; LUMBAR SPINE COMPLETE: 06/17/2016.; ; Comparison: 05/09/2016, 03/17/2013 x-ray.; ; Clinical history: Low back pain after a fall. Technologist notes images are best; possible, the patient could not tolerate lying flat.; ; Four images provided. There is extensive lumbar spondylosis with very large; anterior osteophytes at L2-3 and diffuse osteophytes from the lower thoracic; through the L5-S1 level. Disc space height preserved at L5-S1. Slight narrowing; at the other levels, greatest at L2-3. There is no acute compression wedge; deformity. There is facet arthritis at L4-5 and L5-S1. Diffuse atherosclerotic; calcifications of the aorta without aneurysm. There is a dextrorotatory curve of; the thoracolumbar junction. Sacral ala, foramina and SI joints intact. The; symphysis pubis, pubic rami visible and the pelvic ring intact. Hip joint space; is symmetric. Iliac wings visible intact.; ; Impression:; ; 1. Extensive lumbar spondylosis with a dextrorotatory curvature thoracolumbar; junction and diffuse degenerative disc disease with osteophytes at all levels,; greatest at L1-2 and L2-3 with disc space narrowing greatest at L2-3. No acute; finding or interval change. Technically challenging examination. CT would be; more sensitive for fracture detection if you have a high clinical index of; suspicion.; ; ; Signed by; Vazquez Valdez MD 06/18/2016 09:17 A; Radiology Order: Chest, 2 View (pa\\E\\lat) Test: Chest, 2 View (pa\\E\\lat) REASON FOR EXAMINATION: Shortness of Breath; CHEST X-RAY, PA AND LATERAL: 06/17/2016.; ; Clinical history: Dyspnea.; ; Comparison: Chest x-ray 05/24/2016 and 05/09/2016.; ; Findings: Lungs are well inflated. There is basilar fibrotic change and linear; scar or atelectasis in both bases similar previous study. There is no definite; acute infiltrate. Pulmonary arteries are prominent centrally. There is no; pleural effusion, vascular redistribution or pulmonary edema. The aorta is; mildly tortuous but normal for age. Airway intact. Bony thorax without acute; compression deformity.; ; Impression:; ; 1. Multi lead AICD pacer unchanged with COPD, pulmonary artery hypertension,; bibasilar linear fibrotic changes and no evidence of acute infiltrate, effusion; or edema. Heart size unchanged. Stable chest.; ; ; Signed by; Vazquez Valdez MD 06/18/2016 09:16 A; Radiology Order: CT Spine, Lumbar W/o Contrast Test: CT Spine, Lumbar W/o Contrast REASON FOR EXAMINATION: Trauma; ; CT of the lumbar spine without contrast; Clinical history: Pain.; Technique: Multiple axial CT images were obtained through the lumbar spine without administration of; contrast. Coronal and sagittal 3-D reconstructed images were also obtained.; Findings:; The lumbar vertebral bodies are in satisfactory positioning and alignment. No fractures or dislocatio; ns are demonstrated. Intervertebral disc space is severely narrowed at L2/L3. Disc osteophyte complex; es and disc bulges are seen it L2/L3, L3/L4, and L4/L5. There is no evidence of facet subluxation. Th; e neural foramen appear grossly patent. The spinal canal demonstrates normal caliber and contour with; out evidence of spinal stenosis. The surrounding soft tissues are within normal limits.; Impression: No acute fracture or traumatic injury. Moderate spondylosis with multilevel degenerative; disc disease as described. Disc osteophyte complexes and disc bulges at L2/L3, L3/L4, and L4/L5.; ; Outcome: 19:53 Discharge ordered by Provider. pc 20:30 Discharge Assessment: Patient awake, alert and oriented x 3. No cognitive and/or tm5 functional deficits noted. Patient verbalized understanding of disposition instructions. patient administered narcotics - yes. Pt provided with safe discharge. 20:30 The following High Risk Discharge criteria are identified: None. Discharged to home via tm5 wheelchair, with friend. Condition: good Condition: stable Condition: improved. Discharge instructions given to patient, Instructed on discharge instructions, follow up and referral plans. medication usage, Demonstrated understanding of instructions, medications, Pt was receptive of discharge instructions/ teaching. Prescriptions given X 1. CT Study completed. Property :Personal belongings accompany Pt. 21:05 Patient left the ED. tm5 Signatures: Dispatcher [employer] EDMS Mike Salazar MD MD pc Raymond, Jessica RN RN Pattie Ortiz, ADJUSTO WRITER OPERATOR ADJUSTO WRITER OPERATOR ct3 Myesha Pradhan,RN RN Facundo Ramsey jp5 aPtrice Jones, ADJUSTO WRITER OPERATOR ADJUSTO WRITER OPERATOR mdr Madhuri Krueger,RN RN tm5 Corrections: (The following items were deleted from the chart) 15:37 14:56 Home Meds: torsemide 20 mg oral tab 1 tab twice a day; ludwin rojo Chart Complete MTDD
== END 2016-06-17 21:05 | disposition home or self-care (01) ==
LOC: M ED 14:44
DX: I50.32 Chronic diastolic (congestive) heart failure (principal); M54.5 Low back pain; K22.70 Barrett's esophagus without dysplasia; I10 Essential (primary) hypertension; I25.2 Old myocardial infarction; I33.0 Acute and subacute infective endocarditis; I42.9 Cardiomyopathy, unspecified; Z87.442 Personal history of urinary calculi; Z95.810 Presence of automatic (implantable) cardiac defibrillator; F17.200 Nicotine dependence, unspecified, uncomplicated; Z79.01 Long term (current) use of anticoagulants; Z99.81 Dependence on supplemental oxygen; Z79.51 Long term (current) use of inhaled steroids; Z79.899 Other long term (current) drug therapy; Z88.2 Allergy status to sulfonamides; Z88.5 Allergy status to narcotic agent; Z91.040 Latex allergy status; Z91.013 Allergy to seafood
CPT/HCPCS: 36415; 36600; 71020; 72110; 72131; 80048; 82803; 83880; 84439; 84443; 85025; 85610; 96374; 96375; 99284; J2405

== ENCOUNTER 2016-06-20 12:16 | Emergency (ER) | payer MEDICARE ==
[2016-06-20] MEDS ORDERED: methylPREDNISolone INJ 125 MG/2 ML VIAL (J2930) As Ordered ONE (13:44)
[2016-06-20] MEDS ORDERED: IPRATROPIUM 0.5MG/ALBUTEROL 2.5MG INH SOL UD 3ML (DUONEB)(J7620) As Ordered ONE (13:48)
[2016-06-20 14:07] LABS: ABG BASE EXCESS 8.7 (-2.0-2.0); ABG DEVICE NASAL CANN; ABG HCO3 34.1 MEQ/L (22.0-26.0); ABG PARTIAL PRESSURE CO2 49.9 mmHg (35.0-45.0); ABG PARTIAL PRESSURE O2 76.8 mmHg (75.0-100.0); ABG STANDARD HCO3 32.5 MEQ/L (22.0-26.0); ABG TOTAL CO2 35.7 MEQ/L (23.0-31.0); ABG pH (ARTERIAL) 7.453 UNITS (7.350-7.450)
[2016-06-20 14:10] LABS: BASO % 0.3 % (0.0-1.0); EOS % 0.3 % (0.0-3.0); LARGE UNSTAINED CELL # 0.1 K/mm3 (0.0-0.4); LYMPH # 0.5 K/mm3 (1.5-4.5); LYMPH % 4.6 % (24.0-44.0); MEAN CORPUSCULAR HGB CONC 32.9 g/dl (32.0-36.5); MEAN CORPUSCULAR VOLUME 88.3 fl (80.0-96.0); MONO # 0.4 K/mm3 (0.0-0.8); MONO % 3.1 % (0.0-5.0); NEUTROPHILS # 10.7 K/mm3 (1.8-7.7); NEUTROPHILS % 90.7 % (36.0-66.0); PLATELET COUNT, AUTOMATED 299 k/mm3 (150-450); RED CELL DISTRIBUTION WIDTH 14.6 % (11.5-14.5); WHITE BLOOD COUNT 11.8 K/mm3 (4.0-10.0)
[2016-06-20 14:30] LABS: ANION GAP 8 MEQ/L (8-16); BLOOD UREA NITROGEN 34 MG/DL (7-18); CALCIUM LEVEL 8.9 MG/DL (8.8-10.2); CARBON DIOXIDE LEVEL 35 MEQ/L (21-32); CHLORIDE LEVEL 94 MEQ/L (98-107); CREATININE FOR GFR 1.54 MG/DL (0.70-1.30); GLOMERULAR FILTRATION RATE 47.4 (>42); GLUCOSE, FASTING 92 MG/DL (83-110); POTASSIUM SERUM 4.2 MEQ/L (3.5-5.1); SODIUM LEVEL 137 MEQ/L (136-145)
[2016-06-20] MEDS ORDERED: ALBUTEROL SULFATE 2.5 MG/0.5 ML INH NEB SOLN As Ordered ONE (15:06)
--- NOTE | 2016-06-20 15:45 | REP ---
CHEST, TWO VIEWS: Two views of the chest are performed and compared to prior study of 06/17/2016. Stable bibasilar fibroatelectatic change is present. The heart is normal in size. There are no new infiltrates. There is calcification and ectasia of the thoracic aorta, unchanged. The mediastinal silhouette is unchanged. Left pacemaker is again noted. There is osteopenia with mild degenerative change of the spine. IMPRESSION: Stable bibasilar fibroatelectatic change. No acute change compared to prior study of 06/17/2016. Signed by David Jameson MD 06/21/2016 09:48 A
--- NOTE | 2016-06-20 16:38 | EDDOCDS ---
Physician Documentation [facility] Name: Davion Murphy Age: 71 yrs Sex: Male : 1945 Arrival Date: 06/20/2016 Time: 12:16 Bed 9 Private MD: Moe Archer MD Disposition: 06/20/16 15:54 Discharged to Home/Self Care. Impression: Chronic obstructive pulmonary disease with (acute) exacerbation. - Condition is Stable. - Discharge Instructions: Chronic Obstructive Pulmonary Disease. - Prescriptions for Prednisone 20 mg Oral Tablet - take 1 tablet by ORAL route as directed Day 1-3: 3 po, day 4-7: 2 po, day 8-10: 1 po; 20 tablet. Moxifloxacin 400 mg Oral Tablet - take 1 tablet by ORAL route once daily; 5 tablet. - Medication Reconciliation, Local Pharmacy Hours form. - Follow up: Moe Archer; When: 4 - 5 days; Reason: Recheck today's complaints, Continuance of care. - Problem is an acute exacerbation. - Symptoms have improved. Historical: - Allergies: Latex (Rash); SHELLFISH (Anaphylaxis); SULFA (SULFONAMIDES) (Anaphylaxis); Vicodin (Anaphylaxis); - Home Meds: 1. acetaminophen 325 mg Oral tab 2 tabs Q6h PRN 2. Advair HFA 230-21 mcg/actuation inhalation HFAA 2 puffs 2 times per day 3. atenolol 25 mg Oral tab 1 tab once daily 4. bisoprolol fumarate 10 mg oral tab once daily 5. Flomax 0.4 mg Oral cp24 once daily 6. Lipitor 80 mg Oral tab 1 tab once daily 7. Nexium 40 mg Oral cpDR 1 cap 2 times per day 8. nitroglycerin 0.4 mg SL subl 1 tab every 5 minutes 9. omnaris 50 mcg 2 puff daily 10. Oxygen 2.5 l prn Unknown daily 11. prednisone 10 mg Oral tab 1 tab once daily 12. torsemide 80 oral tab 1 tab twice a day 13. ProAir HFA 90 mcg/actuation inhalation HFAA 2 puffs every 4 hours 14. ranitidine HCl 300 mg Oral tab at bedtime 15. saline nasal spray 0.65% 2 spray as needed 16. Spiriva with HandiHaler 18 mcg Inhl CpDv 1 cap once daily 17. spironolactone 50 mg Oral tab 1 tab once daily 18. tramadol 50 mg Oral tab 1 tab every 12 hours 19. warfarin 4 mg Oral tab once daily 20. 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 No barriers to communication noted, The patient speaks fluent Persian, Speaks appropriately for age. - Family history: Not pertinent. - : The pt / caregiver states he / she is on anticoagulants: coumadin. Home medication list is obtained from the patient. - Exposure Risk Screening:: None identified. Vital Signs: 06/20 12:25 BP 118 / 57; Pulse 69; Resp 18; Temp 98.3; Pulse Ox 95% 3 lpm ; Weight 84.82 kg / 187 hs1 lbs; Height 5 ft. 9 in. (175.26 cm); Pain 7/10; 12:44 BP 106 / 64 (auto/); js13 12:44 Pulse 72 MON; Resp 18; Pulse Ox 94% on 3 lpm NC; 13 13:13 BP 103 / 62 (auto/); js13 13:13 Pulse 72 MON; Resp 18; Pulse Ox 91% on 3 lpm NC; 13 13:25 BP 117 / 61 (auto/); 13 13:25 Pulse 78 MON; Resp 18; Pulse Ox 95% on 3 lpm NC; js13 13:44 BP 109 / 66 (auto/); js13 13:44 Pulse 78 MON; Resp 18; Pulse Ox 96% on 3 lpm NC; js13 14:04 BP 89 / 53 (auto/); js13 14:04 Pulse 86 MON; Resp 18; Pulse Ox 95% on 3 lpm NC; js13 14:24 BP 94 / 63 (auto/); js13 14:24 Pulse 76 MON; Resp 18; Pulse Ox 96% on 3 lpm NC; js13 14:44 BP 110 / 61 (auto/); js13 14:44 Pulse 80 MON; Resp 18; Pulse Ox 94% on 3 lpm NC; js13 15:04 BP 102 / 65 (auto/); js13 15:04 Pulse 76 MON; Resp 18; Pulse Ox 91% on 3 lpm NC; js13 15:24 BP 99 / 62 (auto/); js13 15:25 Pulse 82 MON; Resp 18; Pulse Ox 92% on R/A; js13 15:44 BP 100 / 59 (auto/); js13 15:44 Pulse 90 MON; Resp 18; Temp 98.5(O); Pulse Ox 94% on 3 lpm NC; Pain 0/10; js13 12:25 Body Mass Index 27.61 (84.82 kg, 175.26 cm) hs1 MDM: 12:24 ECG WITH READING ER PHYS+CARDIAG ordered. EDMS 13:28 Solu-MEDROL 125 mg IVP once ordered. ke 13:28 -Blood Culture (Adults Only), peripheral from different site, or from device/port/PICC ke etc. if present ordered. 13:28 [address] Commissioner/Pulse Ox/q 15 min VS ordered. ke 13:28 IV Saline Lock ordered. ke 13:28 Oxygen at 4L/Min NC or Home dosage ordered. ke 13:28 Rhythm Strip to chart ordered. ke 13:28 Albuterol-Ipratropium 1 neb Nebulizer every 20 minutes x3 ordered. ke 13:28 Call Respiratory ordered. ke 13:29 -Arterial Blood Gas Ordered. EDMS 13:29 -Blood Culture Ordered. EDMS 13:29 B-Type Natiuretic Peptide Ordered. EDMS 13:29 Basic Metabolic Profile Ordered. EDMS 13:29 CBC with Diff Ordered. EDMS 13:29 Cardiac Injury Profile Ordered. EDMS 13:29 Troponin Ordered. EDMS 13:30 Chest, 2 View (pa\\E\\lat) Ordered. EDMS 13:31 Call Respiratory complete. hs1 13:33 -Blood Culture (Adults Only), peripheral from different site, or from device/port/PICC lbd etc. if present complete. 13:36 BLOOD CULTURES Ordered. EDMS 14:58 -Arterial Blood Gas Reviewed. ke 14:58 Basic Metabolic Profile Reviewed. ke 14:58 CBC with Diff Reviewed. ke 14:58 B-Type Natiuretic Peptide Reviewed. ke 14:58 Cardiac Injury Profile Reviewed. ke 14:58 Troponin Reviewed. ke 14:59 Financial registration complete. mm15 14:59 [facility] Payment Agreement was scanned into [employer] and attached to record. mm15 15:01 Albuterol 5 mg Nebulizer once ordered. ke Administered Medications: 13:48 Drug: Solu-MEDROL 125 mg [Solu-Medrol 500 mg intravenous solution (125 mg)] Route: IVP; js13 Site: left antecubital; 14:04 Drug: Albuterol-Ipratropium 1 neb [ipratropium-albuterol 0.5 mg-3 mg(2.5 mg base)/3 mL cs15 nebulization soln (1 neb)] Route: Nebulizer; 14:26 Drug: Albuterol-Ipratropium 1 neb [ipratropium-albuterol 0.5 mg-3 mg(2.5 mg base)/3 mL cs15 nebulization soln (1 neb)] Route: Nebulizer; 14:51 Drug: Albuterol-Ipratropium 1 neb [ipratropium-albuterol 0.5 mg-3 mg(2.5 mg base)/3 mL cs15 nebulization soln (1 neb)] Route: Nebulizer; 15:00 Drug: Albuterol 5 mg [albuterol sulfate 2.5 mg/0.5 mL solution for nebulization (1 mL)] cs15 Route: Nebulizer; Signatures: Dispatcher [employer] EDMS Soumya Ace, [employer] Administrator Unit lbd Renaldo Rodríguez, AD CLERK AD CLERK Kelsey Jimenez RN RN hs1 Kassidy Sampson RN RN js13 Mary France mm15 Ortiz Zaman RT cs15 The chart was reviewed and I authenticate all verbal orders and agree with the evaluation and treatment provided.Attachments: 14:59 [facility] Payment Agreement mm15 MTDD
--- NOTE | 2016-06-20 16:39 | EDDOCDS ---
Nurse's Notes [facility] Name: Davion Murphy Age: 71 yrs Sex: Male : 1945 Arrival Date: 06/20/2016 Time: 12:16 Bed 9 Private MD: Moe Archer MD Diagnosis: Chronic obstructive pulmonary disease with (acute) exacerbation Presentation: 06/20 12:18 Presenting complaint: EMS states: picked up from [place] [facility] for difficulty breathing. hs1 Patient states went to clinic for follow up from Saturday for back pain. Patient could not get out of car due to difficulty breathing. Patients sat low 90's on home O2 2 L by ID. Adult Sepsis Screening: The patient does not have new or worsening altered mentation. Patient's respiratory rate is less than 22. Systolic blood pressure is greater than 100. Patient has a qSOFA score of 0- Negative Sepsis Screen. Suicide/Homicide risk assessment- the patient denies having any suicidal and/or homicidal ideations and does not present with any other emotional, behavioral or mental health complaints. Status: Patient is not a track service worker or dependent. Transition of care: patient was not received from another setting of care. Care prior to arrival: See EMS report. Medications administered prior to arrival: Nebulized Albuterol, Solumedrol, & atrovent Neb Saline lock initiated. Oxygen administered by EMS. 12:18 Acuity: BENITO Level 3 hs1 12:18 Method Of Arrival: Walkin/Carried/Asstd hs1 Triage Assessment: 12:27 General: Appears in no apparent distress, Behavior is appropriate for age, cooperative. hs1 Pain: Location: back Pain currently is 7 out of 10 on a pain scale. Neurological: Level of Consciousness is awake, alert, obeys commands. Cardiovascular: Rhythm is sinus rhythm Chest pain is denied. Respiratory: Onset: The symptoms/episode began/occurred gradually. Derm: No deficits noted. Historical: - Allergies: Latex (Rash); SHELLFISH (Anaphylaxis); SULFA (SULFONAMIDES) (Anaphylaxis); Vicodin (Anaphylaxis); - Home Meds: 1. acetaminophen 325 mg Oral tab 2 tabs Q6h PRN 2. Advair HFA 230-21 mcg/actuation inhalation HFAA 2 puffs 2 times per day 3. atenolol 25 mg Oral tab 1 tab once daily 4. bisoprolol fumarate 10 mg oral tab once daily 5. Flomax 0.4 mg Oral cp24 once daily 6. Lipitor 80 mg Oral tab 1 tab once daily 7. Nexium 40 mg Oral cpDR 1 cap 2 times per day 8. nitroglycerin 0.4 mg SL subl 1 tab every 5 minutes 9. omnaris 50 mcg 2 puff daily 10. Oxygen 2.5 l prn Unknown daily 11. prednisone 10 mg Oral tab 1 tab once daily 12. torsemide 80 oral tab 1 tab twice a day 13. ProAir HFA 90 mcg/actuation inhalation HFAA 2 puffs every 4 hours 14. ranitidine HCl 300 mg Oral tab at bedtime 15. saline nasal spray 0.65% 2 spray as needed 16. Spiriva with HandiHaler 18 mcg Inhl CpDv 1 cap once daily 17. spironolactone 50 mg Oral tab 1 tab once daily 18. tramadol 50 mg Oral tab 1 tab every 12 hours 19. warfarin 4 mg Oral tab once daily 20. 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 No barriers to communication noted, The patient speaks fluent Bermudian, Speaks appropriately for age. - Family history: Not pertinent. - : The pt / caregiver states he / she is on anticoagulants: coumadin. Home medication list is obtained from the patient. - Exposure Risk Screening:: None identified. Screenin:39 Screening information is obtained from the patient. Fall risk: At risk due to age. js13 Assistance ADL's: requires no assistance with activities of daily living. Abuse/DV Screen: The patient / caregiver reports he/she is: not in a situation that causes fear, pain or injury. Nutritional screening: No deficits noted. Advance Directives: There is no active DNR order. home support is adequate. Assessment: 12:39 General: Appears in no apparent distress, Behavior is appropriate for age, cooperative. js13 Pain: Location: back. Neurological: Level of Consciousness is awake, alert. Cardiovascular: Rhythm is A-V sequential pacer with capture Chest pain is denied. Respiratory: Airway is patent Respiratory effort is even, unlabored, Respiratory pattern is regular, Breath sounds are diminished. Derm: Skin is pink, warm & dry. 13:45 General: Appears in no apparent distress, comfortable, Behavior is appropriate for age, js13 cooperative. Pain: Location: back. Neurological: Level of Consciousness is awake, alert. Cardiovascular: Chest pain is denied. Respiratory: Airway is patent Respiratory effort is even, unlabored, Respiratory pattern is regular, symmetrical. Derm: Skin is pink, warm & dry. 14:27 Adult Sepsis Screening: The patient does not have new or worsening altered mentation. js13 Patient's respiratory rate is less than 22. Systolic blood pressure is greater than 100. Patient has a qSOFA score of 0- Negative Sepsis Screen. General: Appears in no apparent distress, comfortable, Behavior is appropriate for age, cooperative. Pain: Location: back. Neurological: Level of Consciousness is awake, alert. Cardiovascular: Rhythm is A-V sequential pacer with capture Chest pain is denied. Respiratory: Airway is patent Respiratory effort is even, unlabored, Respiratory pattern is regular, symmetrical. Derm: Skin is pink, warm & dry. 16:06 General: Appears in no apparent distress, comfortable, Behavior is appropriate for age, js13 cooperative. Pain: Denies pain. Neurological: No deficits noted. Level of Consciousness is awake, alert. Cardiovascular: Rhythm is A-V sequential pacer with capture Chest pain is denied. Respiratory: Airway is patent Respiratory effort is even, unlabored, Respiratory pattern is regular, symmetrical, Breath sounds are diminished. Derm: Skin is pink, warm & dry. Vital Signs: 12:25 BP 118 / 57; Pulse 69; Resp 18; Temp 98.3; Pulse Ox 95% 3 lpm ; Weight 84.82 kg; Height hs1 5 ft. 9 in. (175.26 cm); Pain 7/10; 12:44 BP 106 / 64 (auto/); js13 12:44 Pulse 72 MON; Resp 18; Pulse Ox 94% on 3 lpm NC; js13 13:13 BP 103 / 62 (auto/); js13 13:13 Pulse 72 MON; Resp 18; Pulse Ox 91% on 3 lpm NC; js13 13:25 BP 117 / 61 (auto/); js13 13:25 Pulse 78 MON; Resp 18; Pulse Ox 95% on 3 lpm NC; js13 13:44 BP 109 / 66 (auto/); js13 13:44 Pulse 78 MON; Resp 18; Pulse Ox 96% on 3 lpm NC; js13 14:04 BP 89 / 53 (auto/); js13 14:04 Pulse 86 MON; Resp 18; Pulse Ox 95% on 3 lpm NC; js13 14:24 BP 94 / 63 (auto/); js13 14:24 Pulse 76 MON; Resp 18; Pulse Ox 96% on 3 lpm NC; js13 14:44 BP 110 / 61 (auto/); js13 14:44 Pulse 80 MON; Resp 18; Pulse Ox 94% on 3 lpm NC; js13 15:04 BP 102 / 65 (auto/); js13 15:04 Pulse 76 MON; Resp 18; Pulse Ox 91% on 3 lpm NC; js13 15:24 BP 99 / 62 (auto/); js13 15:25 Pulse 82 MON; Resp 18; Pulse Ox 92% on R/A; js13 15:44 BP 100 / 59 (auto/); js13 15:44 Pulse 90 MON; Resp 18; Temp 98.5(O); Pulse Ox 94% on 3 lpm NC; Pain 0/10; js13 12:25 Body Mass Index 27.61 (84.82 kg, 175.26 cm) hs1 Vitals: 12:25 Log In Time N/A - ambulance arrival. hs1 ED Course: 12:17 Patient visited by Soumya Ace, Wax Blender. lbd 12:17 Moe Archer is Private Physician. lbd 12:17 Kassidy Sampson,RN is Primary Nurse. lbd 12:17 Patient moved to Waiting lbd 12:17 Patient moved to 9 lbd 12:21 Triage Initiated hs1 12:39 The patient / caregiver is instructed regarding the plan of care and ED course. Cardiac js13 monitor on. Pulse ox on. NIBP on. 12:40 Patient visited by Kassidy Sampson,LOYD. js13 12:42 Patient visited by Dorian Mendes. jml1 12:42 EKG done. (by ED staff). Reviewed by Renaldo POP. jml1 12:47 O2 via nasal cannula \\T\\ 3L/min. js13 13:22 Renaldo Rodríguez FNP is [facility]. ke 13:22 Patient visited by Renaldo Rodríguez FNP. ke 13:22 Patient visited by Renaldo Rodríguez FNP. ke 13:47 BLOOD CULTURES Sent. js13 13:47 -Blood Culture Sent. js13 13:47 B-Type Natiuretic Peptide Sent. js13 13:47 Basic Metabolic Profile Sent. js13 13:47 CBC with Diff Sent. js13 13:47 Cardiac Injury Profile Sent. js13 13:47 Troponin Sent. js13 13:47 Maintain field IV. Dressing intact. Good blood return noted. Site clean & dry. Gauge & js13 site: 20 gauge LAC. No procedures done that require assistance. Labs drawn. (by ED staff). Sent per order to lab. Labs/Blood culture drawn. 13:57 Patient visited by Renaldo Rodríguez FNP. ke 14:04 -Arterial Blood Gas Sent. cs15 14:27 Patient visited by Kassidy Sampson RN. js13 14:58 Patient visited by Renaldo Rodríguez FNP. ke 14:59 [facility] Payment Agreement was scanned into [employer] and attached to record. mm15 15:19 Patient visited by Renaldo Rodríguez FNP. ke 15:44 Discontinued IV lock intact, bleeding controlled, pressure dressing applied, No js13 redness/swelling at site. 15:45 Patient visited by Renaldo Rodríguez FNP. ke 15:49 Chest, 2 View (pa\\E\\lat) Returned. EDMS 15:54 Moe Archer is Referral Physician. ke Administered Medications: 13:48 Drug: Solu-MEDROL 125 mg [Solu-Medrol 500 mg intravenous solution (125 mg)] Route: IVP; js13 Site: left antecubital; 14:04 Drug: Albuterol-Ipratropium 1 neb [ipratropium-albuterol 0.5 mg-3 mg(2.5 mg base)/3 mL cs15 nebulization soln (1 neb)] Route: Nebulizer; 14:26 Drug: Albuterol-Ipratropium 1 neb [ipratropium-albuterol 0.5 mg-3 mg(2.5 mg base)/3 mL cs15 nebulization soln (1 neb)] Route: Nebulizer; 14:51 Drug: Albuterol-Ipratropium 1 neb [ipratropium-albuterol 0.5 mg-3 mg(2.5 mg base)/3 mL cs15 nebulization soln (1 neb)] Route: Nebulizer; 15:00 Drug: Albuterol 5 mg [albuterol sulfate 2.5 mg/0.5 mL solution for nebulization (1 mL)] cs15 Route: Nebulizer; RT: 14:04 ABG's drawn from left radial artery allens test done and positive pressure held for 5 cs15 minutes no bleeding noted pressure bandage applied specimen sent pt. tolerated well. Initial Med Neb Given as ordered Patient was instructed and evaluated on procedure. O2 via nasal cannula \\T\\ 2L/min. Respiratory: Respiratory effort is labored, Respiratory pattern is regular symmetrical, Breath sounds are diminished bilaterally. Breath sounds with wheezes in left posterior lower lobe at expiration. 14:29 Respiratory: Breath sounds with wheezes bilaterally. at expiration. cs15 15:48 Subsequent Med Neb Given as ordered. Respiratory: Breath sounds with wheezes cs15 bilaterally. at expiration. Order Results: Lab Order: -Arterial Blood Gas; SPEC'M 06/20/16 13:59 Test: ABG pH (ARTERIAL); Value: 7.453; Range: 7.350-7.450; Abnormal: Above high normal; Units: UNITS; Status: F Test: ABG PARTIAL PRESSURE CO2; Value: 49.9; Range: 35.0-45.0; Abnormal: Above high normal; Units: mmHg; Status: F Test: ABG PARTIAL PRESSURE O2; Value: 76.8; Range: 75.0-100.0; Units: mmHg; Status: F Test: ABG TOTAL CO2; Value: 35.7; Range: 23.0-31.0; Abnormal: Above high normal; Units: MEQ/L; Status: F Test: ABG HCO3; Value: 34.1; Range: 22.0-26.0; Abnormal: Above high normal; Units: MEQ/L; Status: F Test: ABG BASE EXCESS; Value: 8.7; Range: -2.0-2.0; Abnormal: Above high normal; Status: F Test: ABG STANDARD HCO3; Value: 32.5; Range: 22.0-26.0; Abnormal: Above high normal; Units: MEQ/L; Status: F Test: ABG O2 SATURATION; Value: 95.5; Range: 95.0-99.0; Units: %; Status: F Test: ABG DEVICE; Value: NASAL TONY; Status: F Lab Order: B-Type Natiuretic Peptide; SPEC'M 06/20/16 13:37 Test: BRAIN NATRIURETIC PEPTIDE; Value: 31.8; Range: <100; Units: PG/ML; Status: F Lab Order: Basic Metabolic Profile; SPEC'M 06/20/16 13:37 Test: GLUCOSE, FASTING; Value: 92; Range: 83-110; Units: MG/DL; Status: F Test: BLOOD UREA NITROGEN; Value: 34; Range: 7-18; Abnormal: Above high normal; Units: MG/DL; Status: F Test: CREATININE FOR GFR; Value: 1.54; Range: 0.70-1.30; Abnormal: Above high normal; Units: MG/DL; Status: F Test: GLOMERULAR FILTRATION RATE; Value: 47.4; Range: >42; Status: F Test: SODIUM LEVEL; Value: 137; Range: 136-145; Units: MEQ/L; Status: F Test: POTASSIUM SERUM; Value: 4.2; Range: 3.5-5.1; Units: MEQ/L; Status: F Test: CHLORIDE LEVEL; Value: 94; Range: 98-107; Abnormal: Below low normal; Units: MEQ/L; Status: F Test: CARBON DIOXIDE LEVEL; Value: 35; Range: 21-32; Abnormal: Above high normal; Units: MEQ/L; Status: F Test: ANION GAP; Value: 8; Range: 8-16; Units: MEQ/L; Status: F Test: CALCIUM LEVEL; Value: 8.9; Range: 8.8-10.2; Units: MG/DL; Status: F Test Note: ; Units are mL/min/1.73 m2 Chronic Kidney Disease Staging per NKF: Stage I & II GFR >=60 Normal to Mildly Decreased Stage III GFR 30-59 Moderately Decreased Stage IV GFR 15-29 Severely Decreased Stage V GFR <15 Very Little GFR Left ESRD GFR <15 on STRATEGIC ACCOUNTS MANAGER Lab Order: CBC with Diff; SPEC'M 06/20/16 13:37 Test: WHITE BLOOD COUNT; Value: 11.8; Range: 4.0-10.0; Abnormal: Above high normal; Units: K/mm3; Status: F Test: RED BLOOD COUNT; Value: 4.38; Range: 4.30-6.10; Units: M/mm3; Status: F Test: HEMOGLOBIN; Value: 12.7; Range: 14.0-18.0; Abnormal: Below low normal; Units: g/dl; Status: F Test: HEMATOCRIT; Value: 38.7; Range: 42.0-52.0; Abnormal: Below low normal; Units: %; Status: F Test: MEAN CORPUSCULAR VOLUME; Value: 88.3; Range: 80.0-96.0; Units: fl; Status: F Test: MEAN CORPUSCULAR HEMOGLOBIN; Value: 29.0; Range: 27.0-33.0; Units: pg; Status: F Test: MEAN CORPUSCULAR HGB CONC; Value: 32.9; Range: 32.0-36.5; Units: g/dl; Status: F Test: RED CELL DISTRIBUTION WIDTH; Value: 14.6; Range: 11.5-14.5; Abnormal: Above high normal; Units: %; Status: F Test: PLATELET COUNT, AUTOMATED; Value: 299; Range: 150-450; Units: k/mm3; Status: F Test: NEUTROPHILS %; Value: 90.7; Range: 36.0-66.0; Abnormal: Above high normal; Units: %; Status: F Test: LYMPH %; Value: 4.6; Range: 24.0-44.0; Abnormal: Below low normal; Units: %; Status: F Test: MONO %; Value: 3.1; Range: 0.0-5.0; Units: %; Status: F Test: EOS %; Value: 0.3; Range: 0.0-3.0; Units: %; Status: F Test: BASO %; Value: 0.3; Range: 0.0-1.0; Units: %; Status: F Test: LARGE UNSTAINED CELL %; Value: 1.0; Range: 0.0-4.0; Units: %; Status: F Test: NEUTROPHILS #; Value: 10.7; Range: 1.8-7.7; Abnormal: Above high normal; Units: K/mm3; Status: F Test: LYMPH #; Value: 0.5; Range: 1.5-4.5; Abnormal: Below low normal; Units: K/mm3; Status: F Test: MONO #; Value: 0.4; Range: 0.0-0.8; Units: K/mm3; Status: F Test: EOS #; Value: 0.0; Range: 0.0-0.50; Units: K/mm3; Status: F Test: BASO #; Value: 0.0; Range: 0.0-0.2; Units: K/mm3; Status: F Test: LARGE UNSTAINED CELL #; Value: 0.1; Range: 0.0-0.4; Units: K/mm3; Status: F Lab Order: Cardiac Injury Profile; [facility]' 06/20/16 13:37 Test: CPK CREATINE PHOSPHOKINASE; Value: 51; Range: 39-308; Units: U/L; Status: F Test: CK-MB VALUE MASS; Value: 1.0; Range: 0.0-3.6; Units: NG/ML; Status: F Test: MB/CK RELATIVE INDEX; Value: 1.96; Range: < OR =4; Status: F Test Note: ; DIAGNOSIS CRITERIA MMB ng/ml Relative Index (RI) NON-AMI < or = 5 N/A GRIFFITHS ZONE > 5 < or = 4 AMI > 5 > 4 Lab Order: Troponin; [facility]' 06/20/16 13:37 Test: TROPONIN I; Value: < 0.02; Range: < 0.10; Units: NG/ML; Status: F Test Note: ; Troponin I Reference Interval for [place] LOCI: 99th Percentile= 0.00-0.045 ng/ml Risk Stratification: <= 0.10 ng/ml Decreased Risk for Adverse Clinical Events. 0.10-1.50 ng/ml Increased Risk for Adverse Clinical Events. Evaluation of additional criterion and/or repeat testing in 2-6 hours is suggested to rule out myocardial damage. >= 1.50 ng/ml Indicative of Myocardial Injury. Radiology Order: Chest, 2 View (pa\\E\\lat) Test: Chest, 2 View (pa\\E\\lat) REASON FOR EXAMINATION: Shortness of Breath; CHEST, TWO VIEWS:; ; Two views of the chest are performed and compared to prior study of 06/17/2016.; ; Stable bibasilar fibroatelectatic change is present. The heart is normal in size.; There are no new infiltrates. There is calcification and ectasia of the thoracic; aorta, unchanged. The mediastinal silhouette is unchanged. Left pacemaker is; again noted. There is osteopenia with mild degenerative change of the spine.; ; IMPRESSION:; Stable bibasilar fibroatelectatic change. No acute change compared to prior study; of 06/17/2016.; ; ; ; Unreviewed; Outcome: 15:44 Discharge Assessment: Patient awake, alert and oriented x 3. No cognitive and/or js13 functional deficits noted. Patient verbalized understanding of disposition instructions. patient administered narcotics - no. The following High Risk Discharge criteria are identified: None. Discharged to home ambulatory, with family. Condition: stable. Discharge instructions given to patient, Instructed on discharge instructions, follow up and referral plans. medication usage, Demonstrated understanding of instructions, medications, Pt was receptive of discharge instructions/ teaching. Prescriptions given X 2. No special radiology studies were completed. Property :Personal belongings accompany Pt. 15:54 Discharge ordered by Provider. ke 16:37 Patient left the ED. js13 Signatures: Dispatcher [employer] EDMS Soumya Ace, Wax Blender Unit lbd Renaldo Rodríguez, ENTRY LEVEL JAVA DEVELOPER ENTRY LEVEL JAVA DEVELOPER Kelsey Antoine RN RN hs1 Dorian Mendes jml1 Kassidy Sampson,LOYD RN js13 Mary France mm15 Ortiz Zaman,RT RT cs15 Corrections: (The following items were deleted from the chart) 12:45 12:39 Cardiovascular: Rhythm is sinus rhythm Chest pain is denied js13 js13 MTDD
--- NOTE | 2016-06-20 18:17 | ECGEPIP ---
Stationary ECG Study [facility] - ED Test Date: 2016-06-20 Pat Name: FIDEL TORRES Department: Room: - Gender: M Direct Selling Counselor: JOHN : 1945 Requested By: BERENICE Martinez Order Number: [id number] Reading MD: Mike Salazar Measurements Intervals [place] Rate: 72 P: 72 FL: 136 QRS: 18 QRSD: 158 T: 28 QT: 418 QTc: 457 Interpretive Statements ELECTRONIC ATRIAL PACEMAKER ELECTRONIC VENTRICULAR PACEMAKER Electronically Signed On 06-20-2016 18:17:41 EST by Mkie Salazar
--- NOTE | 2016-06-22 17:38 | EDDOCDS ---
Physician Documentation [facility] Name: Davion Murphy Age: 71 yrs Sex: Male : 1945 Arrival Date: 06/20/2016 Time: 12:16 Bed 9 Private MD: Moe Archer MD Disposition: 06/20/16 15:54 Discharged to Home/Self Care. Impression: Chronic obstructive pulmonary disease with (acute) exacerbation. - Condition is Stable. - Discharge Instructions: Chronic Obstructive Pulmonary Disease. - Prescriptions for Prednisone 20 mg Oral Tablet - take 1 tablet by ORAL route as directed Day 1-3: 3 po, day 4-7: 2 po, day 8-10: 1 po; 20 tablet. Moxifloxacin 400 mg Oral Tablet - take 1 tablet by ORAL route once daily; 5 tablet. - Medication Reconciliation, Local Pharmacy Hours form. - Follow up: Moe Archer; When: 4 - 5 days; Reason: Recheck today's complaints, Continuance of care. - Problem is an acute exacerbation. - Symptoms have improved. Historical: - Allergies: Latex (Rash); SHELLFISH (Anaphylaxis); SULFA (SULFONAMIDES) (Anaphylaxis); Vicodin (Anaphylaxis); - Home Meds: 1. acetaminophen 325 mg Oral tab 2 tabs Q6h PRN 2. Advair HFA 230-21 mcg/actuation inhalation HFAA 2 puffs 2 times per day 3. atenolol 25 mg Oral tab 1 tab once daily 4. bisoprolol fumarate 10 mg oral tab once daily 5. Flomax 0.4 mg Oral cp24 once daily 6. Lipitor 80 mg Oral tab 1 tab once daily 7. Nexium 40 mg Oral cpDR 1 cap 2 times per day 8. nitroglycerin 0.4 mg SL subl 1 tab every 5 minutes 9. omnaris 50 mcg 2 puff daily 10. Oxygen 2.5 l prn Unknown daily 11. prednisone 10 mg Oral tab 1 tab once daily 12. torsemide 80 oral tab 1 tab twice a day 13. ProAir HFA 90 mcg/actuation inhalation HFAA 2 puffs every 4 hours 14. ranitidine HCl 300 mg Oral tab at bedtime 15. saline nasal spray 0.65% 2 spray as needed 16. Spiriva with HandiHaler 18 mcg Inhl CpDv 1 cap once daily 17. spironolactone 50 mg Oral tab 1 tab once daily 18. tramadol 50 mg Oral tab 1 tab every 12 hours 19. warfarin 4 mg Oral tab once daily 20. 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 No barriers to communication noted, The patient speaks fluent Macedonian, Speaks appropriately for age. - Family history: Not pertinent. - : The pt / caregiver states he / she is on anticoagulants: coumadin. Home medication list is obtained from the patient. - Exposure Risk Screening:: None identified. Vital Signs: 06/20 12:25 BP 118 / 57; Pulse 69; Resp 18; Temp 98.3; Pulse Ox 95% 3 lpm ; Weight 84.82 kg / 187 hs1 lbs; Height 5 ft. 9 in. (175.26 cm); Pain 7/10; 12:44 BP 106 / 64 (auto/); js13 12:44 Pulse 72 MON; Resp 18; Pulse Ox 94% on 3 lpm NC; 13 13:13 BP 103 / 62 (auto/); js13 13:13 Pulse 72 MON; Resp 18; Pulse Ox 91% on 3 lpm NC; 13 13:25 BP 117 / 61 (auto/); 13 13:25 Pulse 78 MON; Resp 18; Pulse Ox 95% on 3 lpm NC; js13 13:44 BP 109 / 66 (auto/); js13 13:44 Pulse 78 MON; Resp 18; Pulse Ox 96% on 3 lpm NC; js13 14:04 BP 89 / 53 (auto/); js13 14:04 Pulse 86 MON; Resp 18; Pulse Ox 95% on 3 lpm NC; js13 14:24 BP 94 / 63 (auto/); js13 14:24 Pulse 76 MON; Resp 18; Pulse Ox 96% on 3 lpm NC; js13 14:44 BP 110 / 61 (auto/); js13 14:44 Pulse 80 MON; Resp 18; Pulse Ox 94% on 3 lpm NC; js13 15:04 BP 102 / 65 (auto/); js13 15:04 Pulse 76 MON; Resp 18; Pulse Ox 91% on 3 lpm NC; js13 15:24 BP 99 / 62 (auto/); js13 15:25 Pulse 82 MON; Resp 18; Pulse Ox 92% on R/A; js13 15:44 BP 100 / 59 (auto/); js13 15:44 Pulse 90 MON; Resp 18; Temp 98.5(O); Pulse Ox 94% on 3 lpm NC; Pain 0/10; js13 12:25 Body Mass Index 27.61 (84.82 kg, 175.26 cm) hs1 MDM: 12:24 ECG WITH READING ER PHYS+CARDIAG ordered. EDMS 13:28 Solu-MEDROL 125 mg IVP once ordered. ke 13:28 -Blood Culture (Adults Only), peripheral from different site, or from device/port/PICC ke etc. if present ordered. 13:28 Account Development Manager/Pulse Ox/q 15 min VS ordered. ke 13:28 IV Saline Lock ordered. ke 13:28 Oxygen at 4L/Min NC or Home dosage ordered. ke 13:28 Rhythm Strip to chart ordered. ke 13:28 Albuterol-Ipratropium 1 neb Nebulizer every 20 minutes x3 ordered. ke 13:28 Call Respiratory ordered. ke 13:29 -Arterial Blood Gas Ordered. EDMS 13:29 -Blood Culture Ordered. EDMS 13:29 B-Type Natiuretic Peptide Ordered. EDMS 13:29 Basic Metabolic Profile Ordered. EDMS 13:29 CBC with Diff Ordered. EDMS 13:29 Cardiac Injury Profile Ordered. EDMS 13:29 Troponin Ordered. EDMS 13:30 Chest, 2 View (pa\\E\\lat) Ordered. EDMS 13:31 Call Respiratory complete. hs1 13:33 -Blood Culture (Adults Only), peripheral from different site, or from device/port/PICC lbd etc. if present complete. 13:36 BLOOD CULTURES Ordered. EDMS 14:58 -Arterial Blood Gas Reviewed. ke 14:58 Basic Metabolic Profile Reviewed. ke 14:58 CBC with Diff Reviewed. ke 14:58 B-Type Natiuretic Peptide Reviewed. ke 14:58 Cardiac Injury Profile Reviewed. ke 14:58 Troponin Reviewed. ke 14:59 Financial registration complete. mm15 14:59 [facility] Payment Agreement was scanned into [employer] and attached to record. 15 15:01 Albuterol 5 mg Nebulizer once ordered. 06/21 09:41 T-Sheet-- Draft Copy was scanned into [employer] and attached to record. gb 09:41 ECG/EKG was scanned into [employer] and attached to record. 14:50 PCR was scanned into [employer] and attached to record. gb Administered Medications: 06/20 13:48 Drug: Solu-MEDROL 125 mg [Solu-Medrol 500 mg intravenous solution (125 mg)] Route: IVP; js13 Site: left antecubital; 14:04 Drug: Albuterol-Ipratropium 1 neb [ipratropium-albuterol 0.5 mg-3 mg(2.5 mg base)/3 mL cs15 nebulization soln (1 neb)] Route: Nebulizer; 14:26 Drug: Albuterol-Ipratropium 1 neb [ipratropium-albuterol 0.5 mg-3 mg(2.5 mg base)/3 mL cs15 nebulization soln (1 neb)] Route: Nebulizer; 14:51 Drug: Albuterol-Ipratropium 1 neb [ipratropium-albuterol 0.5 mg-3 mg(2.5 mg base)/3 mL cs15 nebulization soln (1 neb)] Route: Nebulizer; 15:00 Drug: Albuterol 5 mg [albuterol sulfate 2.5 mg/0.5 mL solution for nebulization (1 mL)] cs15 Route: Nebulizer; Signatures: Dispatcher [employer] EDMS Soumya Ace, Small Brake Form Operator Unit lbd Kena Mahmood, Reg Reg Renaldo Rodríguez, PHOTOGRAPHIC ARTIST PHOTOGRAPHIC ARTIST Kelsey Antoine RN RN hs1 Kassidy Sampson RN RN js13 Mary France mm15 Ortiz Zaman RT cs15 The chart was reviewed and I authenticate all verbal orders and agree with the evaluation and treatment provided.Attachments: 14:59 [facility] Payment Agreement mm15 06/21 09:41 T-Sheet-- Draft Copy gb 09:41 ECG/EKG gb Chart Complete MTDD
--- NOTE | 2016-06-22 17:38 | EDDOCDS ---
Physician Documentation [facility] Name: Davion Murphy Age: 71 yrs Sex: Male : 1945 Arrival Date: 06/20/2016 Time: 12:16 Bed 9 Private MD: Moe Archer MD Disposition: 06/20/16 15:54 Discharged to Home/Self Care. Impression: Chronic obstructive pulmonary disease with (acute) exacerbation. - Condition is Stable. - Discharge Instructions: Chronic Obstructive Pulmonary Disease. - Prescriptions for Prednisone 20 mg Oral Tablet - take 1 tablet by ORAL route as directed Day 1-3: 3 po, day 4-7: 2 po, day 8-10: 1 po; 20 tablet. Moxifloxacin 400 mg Oral Tablet - take 1 tablet by ORAL route once daily; 5 tablet. - Medication Reconciliation, Local Pharmacy Hours form. - Follow up: Moe Archer; When: 4 - 5 days; Reason: Recheck today's complaints, Continuance of care. - Problem is an acute exacerbation. - Symptoms have improved. Historical: - Allergies: Latex (Rash); SHELLFISH (Anaphylaxis); SULFA (SULFONAMIDES) (Anaphylaxis); Vicodin (Anaphylaxis); - Home Meds: 1. acetaminophen 325 mg Oral tab 2 tabs Q6h PRN 2. Advair HFA 230-21 mcg/actuation inhalation HFAA 2 puffs 2 times per day 3. atenolol 25 mg Oral tab 1 tab once daily 4. bisoprolol fumarate 10 mg oral tab once daily 5. Flomax 0.4 mg Oral cp24 once daily 6. Lipitor 80 mg Oral tab 1 tab once daily 7. Nexium 40 mg Oral cpDR 1 cap 2 times per day 8. nitroglycerin 0.4 mg SL subl 1 tab every 5 minutes 9. omnaris 50 mcg 2 puff daily 10. Oxygen 2.5 l prn Unknown daily 11. prednisone 10 mg Oral tab 1 tab once daily 12. torsemide 80 oral tab 1 tab twice a day 13. ProAir HFA 90 mcg/actuation inhalation HFAA 2 puffs every 4 hours 14. ranitidine HCl 300 mg Oral tab at bedtime 15. saline nasal spray 0.65% 2 spray as needed 16. Spiriva with HandiHaler 18 mcg Inhl CpDv 1 cap once daily 17. spironolactone 50 mg Oral tab 1 tab once daily 18. tramadol 50 mg Oral tab 1 tab every 12 hours 19. warfarin 4 mg Oral tab once daily 20. 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 No barriers to communication noted, The patient speaks fluent Tajik, Speaks appropriately for age. - Family history: Not pertinent. - : The pt / caregiver states he / she is on anticoagulants: coumadin. Home medication list is obtained from the patient. - Exposure Risk Screening:: None identified. Vital Signs: 06/20 12:25 BP 118 / 57; Pulse 69; Resp 18; Temp 98.3; Pulse Ox 95% 3 lpm ; Weight 84.82 kg / 187 hs1 lbs; Height 5 ft. 9 in. (175.26 cm); Pain 7/10; 12:44 BP 106 / 64 (auto/); js13 12:44 Pulse 72 MON; Resp 18; Pulse Ox 94% on 3 lpm NC; 13 13:13 BP 103 / 62 (auto/); js13 13:13 Pulse 72 MON; Resp 18; Pulse Ox 91% on 3 lpm NC; 13 13:25 BP 117 / 61 (auto/); 13 13:25 Pulse 78 MON; Resp 18; Pulse Ox 95% on 3 lpm NC; js13 13:44 BP 109 / 66 (auto/); js13 13:44 Pulse 78 MON; Resp 18; Pulse Ox 96% on 3 lpm NC; js13 14:04 BP 89 / 53 (auto/); js13 14:04 Pulse 86 MON; Resp 18; Pulse Ox 95% on 3 lpm NC; js13 14:24 BP 94 / 63 (auto/); js13 14:24 Pulse 76 MON; Resp 18; Pulse Ox 96% on 3 lpm NC; js13 14:44 BP 110 / 61 (auto/); js13 14:44 Pulse 80 MON; Resp 18; Pulse Ox 94% on 3 lpm NC; js13 15:04 BP 102 / 65 (auto/); js13 15:04 Pulse 76 MON; Resp 18; Pulse Ox 91% on 3 lpm NC; js13 15:24 BP 99 / 62 (auto/); js13 15:25 Pulse 82 MON; Resp 18; Pulse Ox 92% on R/A; js13 15:44 BP 100 / 59 (auto/); js13 15:44 Pulse 90 MON; Resp 18; Temp 98.5(O); Pulse Ox 94% on 3 lpm NC; Pain 0/10; js13 12:25 Body Mass Index 27.61 (84.82 kg, 175.26 cm) hs1 MDM: 12:24 ECG WITH READING ER PHYS+CARDIAG ordered. EDMS 13:28 Solu-MEDROL 125 mg IVP once ordered. ke 13:28 -Blood Culture (Adults Only), peripheral from different site, or from device/port/PICC ke etc. if present ordered. 13:28 Superintendent Commissary/Pulse Ox/q 15 min VS ordered. ke 13:28 IV Saline Lock ordered. ke 13:28 Oxygen at 4L/Min NC or Home dosage ordered. ke 13:28 Rhythm Strip to chart ordered. ke 13:28 Albuterol-Ipratropium 1 neb Nebulizer every 20 minutes x3 ordered. ke 13:28 Call Respiratory ordered. ke 13:29 -Arterial Blood Gas Ordered. EDMS 13:29 -Blood Culture Ordered. EDMS 13:29 B-Type Natiuretic Peptide Ordered. EDMS 13:29 Basic Metabolic Profile Ordered. EDMS 13:29 CBC with Diff Ordered. EDMS 13:29 Cardiac Injury Profile Ordered. EDMS 13:29 Troponin Ordered. EDMS 13:30 Chest, 2 View (pa\\E\\lat) Ordered. EDMS 13:31 Call Respiratory complete. hs1 13:33 -Blood Culture (Adults Only), peripheral from different site, or from device/port/PICC lbd etc. if present complete. 13:36 BLOOD CULTURES Ordered. EDMS 14:58 -Arterial Blood Gas Reviewed. ke 14:58 Basic Metabolic Profile Reviewed. ke 14:58 CBC with Diff Reviewed. ke 14:58 B-Type Natiuretic Peptide Reviewed. ke 14:58 Cardiac Injury Profile Reviewed. ke 14:58 Troponin Reviewed. ke 14:59 Financial registration complete. mm15 14:59 [facility] Payment Agreement was scanned into [employer] and attached to record. 15 15:01 Albuterol 5 mg Nebulizer once ordered. 06/21 09:41 T-Sheet-- Draft Copy was scanned into [email or web address] and attached to record. gb 09:41 ECG/EKG was scanned into [employer] and attached to record. 14:50 PCR was scanned into [employer] and attached to record. gb Administered Medications: 06/20 13:48 Drug: Solu-MEDROL 125 mg [Solu-Medrol 500 mg intravenous solution (125 mg)] Route: IVP; js13 Site: left antecubital; 14:04 Drug: Albuterol-Ipratropium 1 neb [ipratropium-albuterol 0.5 mg-3 mg(2.5 mg base)/3 mL cs15 nebulization soln (1 neb)] Route: Nebulizer; 14:26 Drug: Albuterol-Ipratropium 1 neb [ipratropium-albuterol 0.5 mg-3 mg(2.5 mg base)/3 mL cs15 nebulization soln (1 neb)] Route: Nebulizer; 14:51 Drug: Albuterol-Ipratropium 1 neb [ipratropium-albuterol 0.5 mg-3 mg(2.5 mg base)/3 mL cs15 nebulization soln (1 neb)] Route: Nebulizer; 15:00 Drug: Albuterol 5 mg [albuterol sulfate 2.5 mg/0.5 mL solution for nebulization (1 mL)] cs15 Route: Nebulizer; Signatures: Dispatcher [employer] EDMS Soumya Ace, Accounting Coordinator Unit lbd Kena Mahmood, Reg Reg Renaldo Rodríguez, DRESSER TENDER DRESSER TENDER Kelsey Antoine RN RN hs1 Kassidy Sampson RN RN js13 Mary France mm15 Ortiz Zaman RT cs15 The chart was reviewed and I authenticate all verbal orders and agree with the evaluation and treatment provided.Attachments: 14:59 [facility] Payment Agreement mm15 06/21 09:41 T-Sheet-- Draft Copy gb 09:41 ECG/EKG gb Chart Complete MTDD
--- NOTE | 2016-06-22 17:38 | EDDOCDS ---
Nurse's Notes [facility] Name: Davion Torres Age: 71 yrs Sex: Male : 1945 Arrival Date: 06/20/2016 Time: 12:16 Bed 9 Private MD: Moe Archer MD Diagnosis: Chronic obstructive pulmonary disease with (acute) exacerbation Presentation: 06/20 12:18 Presenting complaint: EMS states: picked up from [facility] for difficulty breathing. hs1 Patient states went to clinic for follow up from Saturday for back pain. Patient could not get out of car due to difficulty breathing. Patients sat low 90's on home O2 2 L by NV. Adult Sepsis Screening: The patient does not have new or worsening altered mentation. Patient's respiratory rate is less than 22. Systolic blood pressure is greater than 100. Patient has a qSOFA score of 0- Negative Sepsis Screen. Suicide/Homicide risk assessment- the patient denies having any suicidal and/or homicidal ideations and does not present with any other emotional, behavioral or mental health complaints. Status: Patient is not a foreign exchange services manager or dependent. Transition of care: patient was not received from another setting of care. Care prior to arrival: See EMS report. Medications administered prior to arrival: Nebulized Albuterol, Solumedrol, & atrovent Neb Saline lock initiated. Oxygen administered by EMS. 12:18 Acuity: BENITO Level 3 hs1 12:18 Method Of Arrival: Walkin/Carried/Asstd hs1 Triage Assessment: 12:27 General: Appears in no apparent distress, Behavior is appropriate for age, cooperative. hs1 Pain: Location: back Pain currently is 7 out of 10 on a pain scale. Neurological: Level of Consciousness is awake, alert, obeys commands. Cardiovascular: Rhythm is sinus rhythm Chest pain is denied. Respiratory: Onset: The symptoms/episode began/occurred gradually. Derm: No deficits noted. Historical: - Allergies: Latex (Rash); SHELLFISH (Anaphylaxis); SULFA (SULFONAMIDES) (Anaphylaxis); Vicodin (Anaphylaxis); - Home Meds: 1. acetaminophen 325 mg Oral tab 2 tabs Q6h PRN 2. Advair HFA 230-21 mcg/actuation inhalation HFAA 2 puffs 2 times per day 3. atenolol 25 mg Oral tab 1 tab once daily 4. bisoprolol fumarate 10 mg oral tab once daily 5. Flomax 0.4 mg Oral cp24 once daily 6. Lipitor 80 mg Oral tab 1 tab once daily 7. Nexium 40 mg Oral cpDR 1 cap 2 times per day 8. nitroglycerin 0.4 mg SL subl 1 tab every 5 minutes 9. omnaris 50 mcg 2 puff daily 10. Oxygen 2.5 l prn Unknown daily 11. prednisone 10 mg Oral tab 1 tab once daily 12. torsemide 80 oral tab 1 tab twice a day 13. ProAir HFA 90 mcg/actuation inhalation HFAA 2 puffs every 4 hours 14. ranitidine HCl 300 mg Oral tab at bedtime 15. saline nasal spray 0.65% 2 spray as needed 16. Spiriva with HandiHaler 18 mcg Inhl CpDv 1 cap once daily 17. spironolactone 50 mg Oral tab 1 tab once daily 18. tramadol 50 mg Oral tab 1 tab every 12 hours 19. warfarin 4 mg Oral tab once daily 20. warfarin 2 mg Oral tab 1 tab once daily saturday and saturdays - PMHx: Torres's Esophagus; BPH; CAD; Cardiomyopathy; CHF; Chronic Low Back Pain; COPD; Diverticulitis; Hypercholesterolemia; Hypertension; Kidney stones; Myocardial infarction; Nonbacterial thrombotic endocarditis; stated "clot" on "leads"; Vegetation of ICD lead; - PSHx: ICD placement; Kidney stone removal; Inguinal hernia; - Social history: Smoking status: Patient uses tobacco products, light tobacco smoker. No barriers to communication noted, The patient speaks fluent [place], Speaks appropriately for age. - Family history: Not pertinent. - : The pt / caregiver states he / she is on anticoagulants: coumadin. Home medication list is obtained from the patient. - Exposure Risk Screening:: None identified. Screenin:39 Screening information is obtained from the patient. Fall risk: At risk due to age. js13 Assistance ADL's: requires no assistance with activities of daily living. Abuse/DV Screen: The patient / caregiver reports he/she is: not in a situation that causes fear, pain or injury. Nutritional screening: No deficits noted. Advance Directives: There is no active DNR order. home support is adequate. Assessment: 12:39 General: Appears in no apparent distress, Behavior is appropriate for age, cooperative. js13 Pain: Location: back. Neurological: Level of Consciousness is awake, alert. Cardiovascular: Rhythm is A-V sequential pacer with capture Chest pain is denied. Respiratory: Airway is patent Respiratory effort is even, unlabored, Respiratory pattern is regular, Breath sounds are diminished. Derm: Skin is pink, warm & dry. 13:45 General: Appears in no apparent distress, comfortable, Behavior is appropriate for age, js13 cooperative. Pain: Location: back. Neurological: Level of Consciousness is awake, alert. Cardiovascular: Chest pain is denied. Respiratory: Airway is patent Respiratory effort is even, unlabored, Respiratory pattern is regular, symmetrical. Derm: Skin is pink, warm & dry. 14:27 Adult Sepsis Screening: The patient does not have new or worsening altered mentation. js13 Patient's respiratory rate is less than 22. Systolic blood pressure is greater than 100. Patient has a qSOFA score of 0- Negative Sepsis Screen. General: Appears in no apparent distress, comfortable, Behavior is appropriate for age, cooperative. Pain: Location: back. Neurological: Level of Consciousness is awake, alert. Cardiovascular: Rhythm is A-V sequential pacer with capture Chest pain is denied. Respiratory: Airway is patent Respiratory effort is even, unlabored, Respiratory pattern is regular, symmetrical. Derm: Skin is pink, warm & dry. 16:06 General: Appears in no apparent distress, comfortable, Behavior is appropriate for age, js13 cooperative. Pain: Denies pain. Neurological: No deficits noted. Level of Consciousness is awake, alert. Cardiovascular: Rhythm is A-V sequential pacer with capture Chest pain is denied. Respiratory: Airway is patent Respiratory effort is even, unlabored, Respiratory pattern is regular, symmetrical, Breath sounds are diminished. Derm: Skin is pink, warm & dry. Vital Signs: 12:25 BP 118 / 57; Pulse 69; Resp 18; Temp 98.3; Pulse Ox 95% 3 lpm ; Weight 84.82 kg; Height hs1 5 ft. 9 in. (175.26 cm); Pain 7/10; 12:44 BP 106 / 64 (auto/); js13 12:44 Pulse 72 MON; Resp 18; Pulse Ox 94% on 3 lpm NC; js13 13:13 BP 103 / 62 (auto/); js13 13:13 Pulse 72 MON; Resp 18; Pulse Ox 91% on 3 lpm NC; js13 13:25 BP 117 / 61 (auto/); js13 13:25 Pulse 78 MON; Resp 18; Pulse Ox 95% on 3 lpm NC; js13 13:44 BP 109 / 66 (auto/); js13 13:44 Pulse 78 MON; Resp 18; Pulse Ox 96% on 3 lpm NC; js13 14:04 BP 89 / 53 (auto/); js13 14:04 Pulse 86 MON; Resp 18; Pulse Ox 95% on 3 lpm NC; js13 14:24 BP 94 / 63 (auto/); js13 14:24 Pulse 76 MON; Resp 18; Pulse Ox 96% on 3 lpm NC; js13 14:44 BP 110 / 61 (auto/); js13 14:44 Pulse 80 MON; Resp 18; Pulse Ox 94% on 3 lpm NC; js13 15:04 BP 102 / 65 (auto/); js13 15:04 Pulse 76 MON; Resp 18; Pulse Ox 91% on 3 lpm NC; js13 15:24 BP 99 / 62 (auto/); js13 15:25 Pulse 82 MON; Resp 18; Pulse Ox 92% on R/A; js13 15:44 BP 100 / 59 (auto/); js13 15:44 Pulse 90 MON; Resp 18; Temp 98.5(O); Pulse Ox 94% on 3 lpm NC; Pain 0/10; js13 12:25 Body Mass Index 27.61 (84.82 kg, 175.26 cm) hs1 Vitals: 12:25 Log In Time N/A - ambulance arrival. hs1 ED Course: 12:17 Patient visited by Soumya Ace, Washtub Worker Helper. lbd 12:17 Moe Archer is Private Physician. lbd 12:17 Kassidy Sampson,RN is Primary Nurse. lbd 12:17 Patient moved to Waiting lbd 12:17 Patient moved to 9 lbd 12:21 Triage Initiated hs1 12:39 The patient / caregiver is instructed regarding the plan of care and ED course. Cardiac js13 monitor on. Pulse ox on. NIBP on. 12:40 Patient visited by Kassidy Sampson,LOYD. js13 12:42 Patient visited by Dorian Mendes. jml1 12:42 EKG done. (by ED staff). Reviewed by Renaldo POP. jml1 12:47 O2 via nasal cannula \\T\\ 3L/min. js13 13:22 Renaldo Rodríguez FNP is [facility]. ke 13:22 Patient visited by Renaldo Rodríguez FNP. ke 13:22 Patient visited by Renaldo Rodríguez FNP. ke 13:47 BLOOD CULTURES Sent. js13 13:47 -Blood Culture Sent. js13 13:47 B-Type Natiuretic Peptide Sent. js13 13:47 Basic Metabolic Profile Sent. js13 13:47 CBC with Diff Sent. js13 13:47 Cardiac Injury Profile Sent. js13 13:47 Troponin Sent. js13 13:47 Maintain field IV. Dressing intact. Good blood return noted. Site clean & dry. Gauge & js13 site: 20 gauge LAC. No procedures done that require assistance. Labs drawn. (by ED staff). Sent per order to lab. Labs/Blood culture drawn. 13:57 Patient visited by Renaldo Rodríguez FNP. ke 14:04 -Arterial Blood Gas Sent. cs15 14:27 Patient visited by Kassidy Sampson RN. js13 14:58 Patient visited by Renaldo Rodríguez FNP. ke 14:59 [facility] [place] Payment Agreement was scanned into ASSET4 and attached to record. mm15 15:19 Patient visited by Renaldo Rodríguez FNP. ke 15:44 Discontinued IV lock intact, bleeding controlled, pressure dressing applied, No js13 redness/swelling at site. 15:45 Patient visited by Renaldo Rodríguez FNP. ke 15:49 Chest, 2 View (pa\\E\\lat) Returned. EDMS 15:54 Moe Archer is Referral Physician. ke 19:02 EKG-ADULT Returned. EDMS 06/21 09:41 T-Sheet-- Draft Copy was scanned into ASSET4 and attached to record. gb 09:41 ECG/EKG was scanned into ASSET4 and attached to record. gb 14:50 PCR was scanned into ASSET4 and attached to record. gb Administered Medications: 06/20 13:48 Drug: Solu-MEDROL 125 mg [Solu-Medrol 500 mg intravenous solution (125 mg)] Route: IVP; js13 Site: left antecubital; 14:04 Drug: Albuterol-Ipratropium 1 neb [ipratropium-albuterol 0.5 mg-3 mg(2.5 mg base)/3 mL cs15 nebulization soln (1 neb)] Route: Nebulizer; 14:26 Drug: Albuterol-Ipratropium 1 neb [ipratropium-albuterol 0.5 mg-3 mg(2.5 mg base)/3 mL cs15 nebulization soln (1 neb)] Route: Nebulizer; 14:51 Drug: Albuterol-Ipratropium 1 neb [ipratropium-albuterol 0.5 mg-3 mg(2.5 mg base)/3 mL cs15 nebulization soln (1 neb)] Route: Nebulizer; 15:00 Drug: Albuterol 5 mg [albuterol sulfate 2.5 mg/0.5 mL solution for nebulization (1 mL)] cs15 Route: Nebulizer; RT: 14:04 ABG's drawn from left radial artery allens test done and positive pressure held for 5 cs15 minutes no bleeding noted pressure bandage applied specimen sent pt. tolerated well. Initial Med Neb Given as ordered Patient was instructed and evaluated on procedure. O2 via nasal cannula \\T\\ 2L/min. Respiratory: Respiratory effort is labored, Respiratory pattern is regular symmetrical, Breath sounds are diminished bilaterally. Breath sounds with wheezes in left posterior lower lobe at expiration. 14:29 Respiratory: Breath sounds with wheezes bilaterally. at expiration. cs15 15:48 Subsequent Med Neb Given as ordered. Respiratory: Breath sounds with wheezes cs15 bilaterally. at expiration. Order Results: Lab Order: -Arterial Blood Gas; SPEC'M 06/20/16 13:59 Test: ABG pH (ARTERIAL); Value: 7.453; Range: 7.350-7.450; Abnormal: Above high normal; Units: UNITS; Status: F Test: ABG PARTIAL PRESSURE CO2; Value: 49.9; Range: 35.0-45.0; Abnormal: Above high normal; Units: mmHg; Status: F Test: ABG PARTIAL PRESSURE O2; Value: 76.8; Range: 75.0-100.0; Units: mmHg; Status: F Test: ABG TOTAL CO2; Value: 35.7; Range: 23.0-31.0; Abnormal: Above high normal; Units: MEQ/L; Status: F Test: ABG HCO3; Value: 34.1; Range: 22.0-26.0; Abnormal: Above high normal; Units: MEQ/L; Status: F Test: ABG BASE EXCESS; Value: 8.7; Range: -2.0-2.0; Abnormal: Above high normal; Status: F Test: ABG STANDARD HCO3; Value: 32.5; Range: 22.0-26.0; Abnormal: Above high normal; Units: MEQ/L; Status: F Test: ABG O2 SATURATION; Value: 95.5; Range: 95.0-99.0; Units: %; Status: F Test: ABG DEVICE; Value: NASAL TONY; Status: F Lab Order: -Blood Culture; SPEC' 06/20/16 13:36 Test: BLOOD CULTURE; Value: No growth after 24 hours . All specimens observed; Status: F Test: BLOOD CULTURE; Value: for 5 days. Results final at that time.; Status: F Test: BLOOD CULTURE; Value: No Growth after 48 hours. All Specimens observed; Status: F Test: BLOOD CULTURE; Value: for 7 days. Results final at that time.; Status: F Lab Order: B-Type Natiuretic Peptide; SPEC' 06/20/16 13:37 Test: BRAIN NATRIURETIC PEPTIDE; Value: 31.8; Range: <100; Units: PG/ML; Status: F Lab Order: Basic Metabolic Profile; SPEC' 06/20/16 13:37 Test: GLUCOSE, FASTING; Value: 92; Range: 83-110; Units: MG/DL; Status: F Test: BLOOD UREA NITROGEN; Value: 34; Range: 7-18; Abnormal: Above high normal; Units: MG/DL; Status: F Test: CREATININE FOR GFR; Value: 1.54; Range: 0.70-1.30; Abnormal: Above high normal; Units: MG/DL; Status: F Test: GLOMERULAR FILTRATION RATE; Value: 47.4; Range: >42; Status: F Test: SODIUM LEVEL; Value: 137; Range: 136-145; Units: MEQ/L; Status: F Test: POTASSIUM SERUM; Value: 4.2; Range: 3.5-5.1; Units: MEQ/L; Status: F Test: CHLORIDE LEVEL; Value: 94; Range: 98-107; Abnormal: Below low normal; Units: MEQ/L; Status: F Test: CARBON DIOXIDE LEVEL; Value: 35; Range: 21-32; Abnormal: Above high normal; Units: MEQ/L; Status: F Test: ANION GAP; Value: 8; Range: 8-16; Units: MEQ/L; Status: F Test: CALCIUM LEVEL; Value: 8.9; Range: 8.8-10.2; Units: MG/DL; Status: F Test Note: ; Units are mL/min/1.73 m2 Chronic Kidney Disease Staging per NKF: Stage I & II GFR >=60 Normal to Mildly Decreased Stage III GFR 30-59 Moderately Decreased Stage IV GFR 15-29 Severely Decreased Stage V GFR <15 Very Little GFR Left ESRD GFR <15 on LANDSCAPE TECHNICIAN Lab Order: CBC with Diff; SPEC'M 06/20/16 13:37 Test: WHITE BLOOD COUNT; Value: 11.8; Range: 4.0-10.0; Abnormal: Above high normal; Units: K/mm3; Status: F Test: RED BLOOD COUNT; Value: 4.38; Range: 4.30-6.10; Units: M/mm3; Status: F Test: HEMOGLOBIN; Value: 12.7; Range: 14.0-18.0; Abnormal: Below low normal; Units: g/dl; Status: F Test: HEMATOCRIT; Value: 38.7; Range: 42.0-52.0; Abnormal: Below low normal; Units: %; Status: F Test: MEAN CORPUSCULAR VOLUME; Value: 88.3; Range: 80.0-96.0; Units: fl; Status: F Test: MEAN CORPUSCULAR HEMOGLOBIN; Value: 29.0; Range: 27.0-33.0; Units: pg; Status: F Test: MEAN CORPUSCULAR HGB CONC; Value: 32.9; Range: 32.0-36.5; Units: g/dl; Status: F Test: RED CELL DISTRIBUTION WIDTH; Value: 14.6; Range: 11.5-14.5; Abnormal: Above high normal; Units: %; Status: F Test: PLATELET COUNT, AUTOMATED; Value: 299; Range: 150-450; Units: k/mm3; Status: F Test: NEUTROPHILS %; Value: 90.7; Range: 36.0-66.0; Abnormal: Above high normal; Units: %; Status: F Test: LYMPH %; Value: 4.6; Range: 24.0-44.0; Abnormal: Below low normal; Units: %; Status: F Test: MONO %; Value: 3.1; Range: 0.0-5.0; Units: %; Status: F Test: EOS %; Value: 0.3; Range: 0.0-3.0; Units: %; Status: F Test: BASO %; Value: 0.3; Range: 0.0-1.0; Units: %; Status: F Test: LARGE UNSTAINED CELL %; Value: 1.0; Range: 0.0-4.0; Units: %; Status: F Test: NEUTROPHILS #; Value: 10.7; Range: 1.8-7.7; Abnormal: Above high normal; Units: K/mm3; Status: F Test: LYMPH #; Value: 0.5; Range: 1.5-4.5; Abnormal: Below low normal; Units: K/mm3; Status: F Test: MONO #; Value: 0.4; Range: 0.0-0.8; Units: K/mm3; Status: F Test: EOS #; Value: 0.0; Range: 0.0-0.50; Units: K/mm3; Status: F Test: BASO #; Value: 0.0; Range: 0.0-0.2; Units: K/mm3; Status: F Test: LARGE UNSTAINED CELL #; Value: 0.1; Range: 0.0-0.4; Units: K/mm3; Status: F Lab Order: Cardiac Injury Profile; SPEC'M 06/20/16 13:37 Test: CPK CREATINE PHOSPHOKINASE; Value: 51; Range: 39-308; Units: U/L; Status: F Test: CK-MB VALUE MASS; Value: 1.0; Range: 0.0-3.6; Units: NG/ML; Status: F Test: MB/CK RELATIVE INDEX; Value: 1.96; Range: < OR =4; Status: F Test Note: ; DIAGNOSIS CRITERIA MMB ng/ml Relative Index (RI) NON-AMI < or = 5 N/A JAMESON ZONE > 5 < or = 4 AMI > 5 > 4 Lab Order: Troponin; SPEC'M 06/20/16 13:37 Test: TROPONIN I; Value: < 0.02; Range: < 0.10; Units: NG/ML; Status: F Test Note: ; Troponin I Reference Interval for Siemens [place] LOCI: 99th Percentile= 0.00-0.045 ng/ml Risk Stratification: <= 0.10 ng/ml Decreased Risk for Adverse Clinical Events. 0.10-1.50 ng/ml Increased Risk for Adverse Clinical Events. Evaluation of additional criterion and/or repeat testing in 2-6 hours is suggested to rule out myocardial damage. >= 1.50 ng/ml Indicative of Myocardial Injury. Lab Order: BLOOD CULTURES; SPEC'M 06/20/16 13:36 Test: BLOOD CULTURE; Value: No growth after 24 hours . All specimens observed; Status: F Test: BLOOD CULTURE; Value: for 5 days. Results final at that time.; Status: F Test: BLOOD CULTURE; Value: No Growth after 48 hours. All Specimens observed; Status: F Test: BLOOD CULTURE; Value: for 7 days. 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: JT; : 1945 Requested By: BERENICE Martinez; Order Number: [id number] Leonidas MD: Mike Salazar; Measurements; Intervals [place]; Rate: 72 P: 72; OH: 136 QRS: 18; QRSD: 158 T: 28; QT: 418; QTc: 457; Interpretive Statements; ELECTRONIC ATRIAL PACEMAKER; ELECTRONIC VENTRICULAR PACEMAKER; ; Electronically Signed On 06-20-2016 18:17:41 EST by Mike Salazar; Radiology Order: Chest, 2 View (pa\\E\\lat) Test: Chest, 2 View (pa\\E\\lat) REASON FOR EXAMINATION: Shortness of Breath; CHEST, TWO VIEWS:; ; Two views of the chest are performed and compared to prior study of 06/17/2016.; ; Stable bibasilar fibroatelectatic change is present. The heart is normal in size.; There are no new infiltrates. There is calcification and ectasia of the thoracic; aorta, unchanged. The mediastinal silhouette is unchanged. Left pacemaker is; again noted. There is osteopenia with mild degenerative change of the spine.; ; IMPRESSION:; ; Stable bibasilar fibroatelectatic change. No acute change compared to prior study; of 06/17/2016.; ; ; Signed by; David Jameson MD 06/21/2016 09:48 A; Outcome: 15:44 Discharge Assessment: Patient awake, alert and oriented x 3. No cognitive and/or js13 functional deficits noted. Patient verbalized understanding of disposition instructions. patient administered narcotics - no. The following High Risk Discharge criteria are identified: None. Discharged to home ambulatory, with family. Condition: stable. Discharge instructions given to patient, Instructed on discharge instructions, follow up and referral plans. medication usage, Demonstrated understanding of instructions, medications, Pt was receptive of discharge instructions/ teaching. Prescriptions given X 2. No special radiology studies were completed. Property :Personal belongings accompany Pt. 15:54 Discharge ordered by Provider. ke 16:37 Patient left the ED. js13 Signatures: Dispatcher [employer] EDMS Soumya Ace, Washtub Worker Helper Unit lbd Kena Mahmood, Reg Reg Renaldo Roque, GOLD LEAF GILDER GOLD LEAF GILDER ke Kelsey Jimenez, RN RN hs1 Dorian Mendes jml1 Kassidy Sampson,RN RN js13 Mary France mm15 Ortiz Zaman,RT RT cs15 Corrections: (The following items were deleted from the chart) 12:45 12:39 Cardiovascular: Rhythm is sinus rhythm Chest pain is denied js13 js13 Chart Complete MTDD
== END 2016-06-20 16:37 | disposition home or self-care (01) ==
LOC: M ED 12:16
DX: J44.1 Chronic obstructive pulmonary disease with (acute) exacerbation (principal); K22.70 Barrett's esophagus without dysplasia; I25.10 Atherosclerotic heart disease of native coronary artery without angina pectoris; I50.9 Heart failure, unspecified; G89.29 Other chronic pain; M54.5 Low back pain; K57.30 Diverticulosis of large intestine without perforation or abscess without bleeding; E78.00 Pure hypercholesterolemia, unspecified; I10 Essential (primary) hypertension; I25.2 Old myocardial infarction; N40.1 Benign prostatic hyperplasia with lower urinary tract symptoms; I42.9 Cardiomyopathy, unspecified; I33.9 Acute and subacute endocarditis, unspecified; Z95.810 Presence of automatic (implantable) cardiac defibrillator; Z72.0 Tobacco use; Z79.01 Long term (current) use of anticoagulants; Z99.81 Dependence on supplemental oxygen; Z79.899 Other long term (current) drug therapy; Z91.040 Latex allergy status; Z91.013 Allergy to seafood; Z88.2 Allergy status to sulfonamides; Z88.5 Allergy status to narcotic agent
CPT/HCPCS: 36415; 36600; 71020; 80048; 82550; 82553; 82803; 83880; 84484; 85025; 87040; 93005; 93041; 94640; 96374; 99285; J2930

== ENCOUNTER → 2016-07-06 | Outpatient (CLI) | payer MEDICARE ==
[2016-07-06 12:58] LABS: MEAN CORPUSCULAR HEMOGLOBIN 29.8 pg (27.0-33.0); MEAN CORPUSCULAR HGB CONC 32.9 g/dl (32.0-36.5); MEAN CORPUSCULAR VOLUME 90.7 fl (80.0-96.0); RED CELL DISTRIBUTION WIDTH 14.7 % (11.5-14.5); WHITE BLOOD COUNT 12.8 K/mm3 (4.0-10.0)
[2016-07-06 13:26] LABS: CALCIUM LEVEL 8.6 MG/DL (8.8-10.2); CREATININE FOR GFR 1.43 MG/DL (0.70-1.30); FREE T4 0.9 NG/DL (0.76-1.46); GLOMERULAR FILTRATION RATE 51.6 (>42); POTASSIUM SERUM 4.7 MEQ/L (3.5-5.1)
--- NOTE | 2016-07-06 14:48 | REP ---
THORACIC SPINE SERIES: Five views of the thoracic spine are performed. There is acute or subacute mild compression of the T10 vertebral body. This is new compared to prior radiographs obtained 04/25/2016. Old mild compression deformity is noted at T11. No other new compression fracture is seen. There is mild diffuse spurring and disc space narrowing. There is osteopenia. There is curvature toward the right. The posterior elements are intact. IMPRESSION: Acute or subacute mild compression deformity of T10. Old mild compression deformity of T11. Diffuse degenerative changes. Signed by David Jameson MD 07/06/2016 08:34 P
== END ==
LOC: M ADAMS 11:24
PROVIDERS: ATTEND Family Medicine
DX: S22.078A Other fracture of T9-T10 vertebra, initial encounter for closed fracture (principal); I38 Endocarditis, valve unspecified; M35.3 Polymyalgia rheumatica; E03.9 Hypothyroidism, unspecified; I50.33 Acute on chronic diastolic (congestive) heart failure; X58.XXXA Exposure to other specified factors, initial encounter; Y92.9 Unspecified place or not applicable; Y93.9 Activity, unspecified; Y99.9 Unspecified external cause status

== ENCOUNTER 2016-10-02 09:06 | Emergency (ER) | payer MEDICARE ==
[~2016-10-02] VITALS: Ht 175.3 cm; Wt 86.6 kg
[2016-10-02] MEDS ORDERED: MORPHINE 2 MG/ML 1ML SYRINGE IV ONE (09:30)
[2016-10-02] MEDS ORDERED: NS 500 ML IV ONE (09:30)
[2016-10-02] MEDS ORDERED: ONDANSETRON 4MG/2ML VIAL (J2405) IV ONE (09:30)
[2016-10-02 09:41] LABS: BASO # 0.1 K/mm3 (0.0-0.2); BASO % 0.6 % (0.0-1.0); EOS # 0.1 K/mm3 (0.0-0.50); EOS % 1.5 % (0.0-3.0); LARGE UNSTAINED CELL # 0.2 K/mm3 (0.0-0.4); LARGE UNSTAINED CELL % 2.1 % (0.0-4.0); LYMPH # 1.5 K/mm3 (1.5-4.5); LYMPH % 13.9 % (24.0-44.0); MEAN CORPUSCULAR HEMOGLOBIN 30.3 pg (27.0-33.0); MEAN CORPUSCULAR VOLUME 91.9 fl (80.0-96.0); NEUTROPHILS # 6.7 K/mm3 (1.8-7.7); NEUTROPHILS % 70.9 % (36.0-66.0); PLATELET COUNT, AUTOMATED 308 k/mm3 (150-450); RED CELL DISTRIBUTION WIDTH 13.6 % (11.5-14.5); WHITE BLOOD COUNT 9.5 K/mm3 (4.0-10.0)
[2016-10-02] MEDS: IPRATROPIUM 0.5MG/ALBUTEROL 2.5MG INH SOL UD 3ML (DUONEB)(J7620) NEB PRN ×2 (09:43→09:55)
[2016-10-02 09:52] LABS: ABG BASE EXCESS 4.5 (-2.0-2.0); ABG HCO3 29.2 MEQ/L (22.0-26.0); ABG PARTIAL PRESSURE CO2 43.9 mmHg (35.0-45.0); ABG PARTIAL PRESSURE O2 80.8 mmHg (75.0-100.0); ABG STANDARD HCO3 28.5 MEQ/L (22.0-26.0); ABG TOTAL CO2 30.6 MEQ/L (23.0-31.0); ABG pH (ARTERIAL) 7.441 UNITS (7.350-7.450)
[2016-10-02 09:53] LABS: INR 0.92
[2016-10-02 10:06] LABS: ALBUMIN/GLOBULIN RATIO 0.86 (1.00-1.93); ALKALINE PHOSPHATASE 123 U/L (45-117); ALT/SGPT 16 U/L (12-78); ANION GAP 6 MEQ/L (8-16); AST/SGOT 17 U/L (15-37); BILIRUBIN,DIRECT < 0.1 MG/DL (0.0-0.2); BILIRUBIN,TOTAL 0.3 MG/DL (0.2-1.0); BLOOD UREA NITROGEN 26 MG/DL (7-18); CALCIUM LEVEL 8.5 MG/DL (8.8-10.2); CARBON DIOXIDE LEVEL 37 MEQ/L (21-32); CHLORIDE LEVEL 96 MEQ/L (98-107); GLOMERULAR FILTRATION RATE 48.8 (>42); GLUCOSE, FASTING 89 MG/DL (83-110); POTASSIUM SERUM 4.3 MEQ/L (3.5-5.1); SODIUM LEVEL 139 MEQ/L (136-145); TOTAL PROTEIN 6.5 GM/DL (6.4-8.2)
--- NOTE | 2016-10-02 10:09 | REP ---
PORTABLE CHEST, ONE VIEW: HISTORY: Dyspnea. COMPARISON: 06/20/2016 Linear densities are present in the lower lobes consistent with scarring. The heart is normal in size. The pulmonary vasculature is normal in appearance. A cardiac pacemaker is present. IMPRESSION: Bibasilar scarring. Signed by Jason Quezada MD 10/02/2016 10:32 A
--- NOTE | 2016-10-02 11:39 | ECGEPIP ---
Stationary ECG Study [facility] - ED Test Date: 2016-10-02 Pat Name: FIDEL TORRES Department: Room: - Gender: M Bi Technical Lead: JLuis Felipe : 1945 Requested By: Laurence Rodgers Order Number: [id number] Reading MD: Mike Salazar Measurements Intervals [place] Rate: 79 P: 69 MA: 146 QRS: 53 QRSD: 157 T: 15 QT: 429 QTc: 495 Interpretive Statements ELECTRONIC ATRIAL PACEMAKER ELECTRONIC VENTRICULAR PACEMAKER Electronically Signed On 10-02-2016 11:38:38 EDT by Mike Salazar
--- NOTE | 2016-10-02 12:25 | REP ---
CT CHEST WITHOUT IV CONTRAST: CT chest is performed without IV contrast. Comparison made with a prior study of 02/23/2016. There are patchy bibasilar areas of atelectasis or infiltrate. There is a 6 mm nodular opacity in the right apex, which is not seen on the prior study. There heart is not enlarged. There is no pleural or pericardial effusion. I do not see significant adenopathy in the mediastinal or hilar regions. In the visualized portions of the upper abdomen, there are a few small cysts in the liver. There is a small right adrenal adenoma. There is a right renal cyst. There are diffuse degenerative changes of the spine. There are compression deformities of as moderate degree of T10 and T11, which are slightly worse than the prior plain films of 07/06/2016. IMPRESSION: Patchy bibasilar atelectasis/infiltrate. New 6 mm nodule in the right upper lobe. Recommend followup CT in 3 months. Mild increase in moderate compression deformities of T10 and T11 compared to the prior plain films of 07/06/2016. Signed by David Jameson MD 10/04/2016 06:55 P
[2016-10-02] MEDS ORDERED: PERCOCET 5MG/325MG TAB PO ONE (13:45)
[2016-10-02] MEDS ORDERED: OXYC1TAB23 PO (15:31)
[2016-10-02] MEDS ORDERED: AVEL1TAB PO (15:34)
[2016-10-02 16:00] VITALS: BP 100/70
[2016-10-03] MEDS ORDERED: LEVO25TA5 PO (10:01)
[2016-10-03] MEDS ORDERED: ASPI81TA85 PO (10:01)
[2016-10-03] MEDS ORDERED: SYNT50TA PO (11:57)
[2016-10-03] MEDS ORDERED: TRAM50TA2 PO (11:58)
[2016-10-03] MEDS ORDERED: GAS-80CH PO (12:00)
[2016-10-07] MEDS ORDERED: ALB2.5NEB NEB (13:41)
[2016-10-07] MEDS ORDERED: NEBUMIS2 XX (13:41)
[2016-10-07] MEDS ORDERED: PRED20TA PO (13:41)
[2016-10-07] MEDS ORDERED: DICL13PA TOP (13:41)
[2016-10-07] MEDS ORDERED: AVEL1TAB PO (13:41)
== END 2016-10-02 16:02 | disposition left against medical advice (07) ==
LOC: M ED 10:06
DX: I95.9 Hypotension, unspecified (principal); J18.9 Pneumonia, unspecified organism; R07.9 Chest pain, unspecified; I50.9 Heart failure, unspecified; I25.10 Atherosclerotic heart disease of native coronary artery without angina pectoris; K22.70 Barrett's esophagus without dysplasia; J44.9 Chronic obstructive pulmonary disease, unspecified; D64.9 Anemia, unspecified; M54.5 Low back pain; G89.29 Other chronic pain; N40.0 Benign prostatic hyperplasia without lower urinary tract symptoms; Z95.810 Presence of automatic (implantable) cardiac defibrillator; Z91.013 Allergy to seafood; Z88.2 Allergy status to sulfonamides; Z88.5 Allergy status to narcotic agent; Z91.040 Latex allergy status; Z79.899 Other long term (current) drug therapy; Z79.51 Long term (current) use of inhaled steroids; Z79.52 Long term (current) use of systemic steroids

== ENCOUNTER 2016-10-19 17:11 | Emergency (ER) | payer MEDICARE ==
[~2016-10-19] VITALS: Ht 175.3 cm; Wt 86.8 kg
[~2016-10-19 17:11] MED LIST changes: +ALB2.5NEB NEB; +ASPI81TA85 PO; +AVEL1TAB PO; +DICL13PA TOP; +GAS-80CH PO; +NEBUMIS2 XX; +OXYC1TAB23 PO; +SYNT50TA PO
[2016-10-19 17:42] VITALS: BP 96/56
== END 2016-10-19 19:20 | disposition left against medical advice (07) ==
LOC: M ED 17:11
DX: R30.0 Dysuria (principal); Z53.21 Procedure and treatment not carried out due to patient leaving prior to being seen by health care provider

== ENCOUNTER 2016-11-09 17:55 | Inpatient (IN) | payer MEDICARE ==
[~2016-11-09] VITALS: Ht 175.3 cm; Wt 84.6 kg
[~2016-11-09 17:55] MED LIST changes: -ACET-654 PO; +ACET1TAB17 PO; -ATOR1TAB18 PO; +ATOR80TA59 PO; -AVEL1TAB PO; +AVEL1TAB3 PO; -LEVA750T PO; +LEVA750T7 PO; -NICO1DIS2 TD; +NICO21DI31 TD; -PRED10TA PO; +PRED10TA2 PO; -PROA1AER INH; +PROAAER10 INH; +QUIN20TA17 PO; -QUIN20TA7 PO; +SALI0.6523; -SALI0.653; -VITA100037 PO; +VITA100067 PO; +VOLT1GEL15 TD; -VOLT1GEL24 TD
[2016-11-09] MEDS ORDERED: TRAM50TA2 PO (18:12)
[2016-11-09] MEDS ORDERED: methylPREDNISolone INJ 125 MG/2 ML VIAL (J2930) IV ONE (19:00)
[2016-11-09 19:28] LABS: ABG BASE EXCESS 4.9 (-2.0-2.0); ABG HCO3 29.5 MEQ/L (22.0-26.0); ABG PARTIAL PRESSURE CO2 43.3 mmHg (35.0-45.0); ABG PARTIAL PRESSURE O2 87.9 mmHg (75.0-100.0); ABG STANDARD HCO3 28.9 MEQ/L (22.0-26.0); ABG TOTAL CO2 30.8 MEQ/L (23.0-31.0); ABG pH (ARTERIAL) 7.451 UNITS (7.350-7.450)
[2016-11-09] MEDS: IPRATROPIUM 0.5MG/ALBUTEROL 2.5MG INH SOL UD 3ML (DUONEB)(J7620) NEB PRN ×2 (19:29→19:43)
[2016-11-09 19:56] LABS: BASO # 0.1 K/mm3 (0.0-0.2); BASO % 0.3 % (0.0-1.0); EOS # 0.1 K/mm3 (0.0-0.50); EOS % 0.6 % (0.0-3.0); LARGE UNSTAINED CELL # 0.3 K/mm3 (0.0-0.4); LARGE UNSTAINED CELL % 1.2 % (0.0-4.0); LYMPH # 1.4 K/mm3 (1.5-4.5); LYMPH % 5.2 % (24.0-44.0); MEAN CORPUSCULAR HEMOGLOBIN 29.3 pg (27.0-33.0); MEAN CORPUSCULAR HGB CONC 32.4 g/dl (32.0-36.5); MEAN CORPUSCULAR VOLUME 90.3 fl (80.0-96.0); MONO # 1.4 K/mm3 (0.0-0.8); MONO % 6.5 % (0.0-5.0); NEUTROPHILS # 18.9 K/mm3 (1.8-7.7); NEUTROPHILS % 86.2 % (36.0-66.0); PLATELET COUNT, AUTOMATED 211 k/mm3 (150-450); RED CELL DISTRIBUTION WIDTH 12.9 % (11.5-14.5); WHITE BLOOD COUNT 21.9 K/mm3 (4.0-10.0)
[2016-11-09 20:24] LABS: ALBUMIN 3.5 GM/DL (3.2-5.2); ALKALINE PHOSPHATASE 125 U/L (45-117); ALT/SGPT 20 U/L (12-78); ANION GAP 7 MEQ/L (8-16); AST/SGOT 18 U/L (15-37); BILIRUBIN,DIRECT 0.1 MG/DL (0.0-0.2); BILIRUBIN,TOTAL 0.4 MG/DL (0.2-1.0); BLOOD UREA NITROGEN 21 MG/DL (7-18); CALCIUM LEVEL 8.7 MG/DL (8.8-10.2); CARBON DIOXIDE LEVEL 33 MEQ/L (21-32); CHLORIDE LEVEL 93 MEQ/L (98-107); CREATININE FOR GFR 1.07 MG/DL (0.70-1.30); GLOMERULAR FILTRATION RATE > 60.0 (>42); GLUCOSE, FASTING 79 MG/DL (83-110); POTASSIUM SERUM 4.3 MEQ/L (3.5-5.1); SODIUM LEVEL 133 MEQ/L (136-145); TOTAL PROTEIN 6.2 GM/DL (6.4-8.2)
--- NOTE | 2016-11-09 20:28 | REP ---
Clinical: Dyspnea and cough. Technique: PA and lateral views. Comparison: 10/03/2016. Findings: Bilateral chronic interstitial and basilar fibroatelectatic changes are appreciated and similar to prior examinations. Subtle superimposed acute infiltrate cannot be excluded. No pneumothorax. Mediastinum and cardiac silhouette stable. Skeletal structures intact. Impression: Chronic interstitial and bibasilar fibroatelectatic changes. Subtle superimposed acute process cannot be excluded. Signed by Aaron Cadena MD 11/09/2016 08:19 P
[2016-11-09] MEDS: ADVAIR HFA 230/21MCG INHALER INH SCH (21:00)
--- NOTE | 2016-11-09 21:04 | ECGEPIP ---
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
[2016-11-09] MEDS ORDERED: ISOVUE-370 76% 100ML VIAL (Q9967) As Ordered ONE (21:16)
--- NOTE | 2016-11-09 21:55 | REP ---
Clinical: Shortness of breath and leukocytosis. Technique: Axial contrast enhanced images from the thoracic inlet to the upper abdomen using 100 ml Isovue 370 intravenous contrast material with multiplanar re-formations. Comparison: 10/02/2016, 02/23/2016. Findings: Satisfactory enhancement of the pulmonary vasculature is achieved, but evaluation is somewhat limited by respiratory motion artifact. Moderate COPD/emphysematous changes appear chronic. Bibasilar fibroatelectatic changes and small right lower lobe nodular densities suggest acute on chronic atelectasis/infiltrate and appear progressed since prior examinations. No pleural effusion. No pneumothorax. The previously suggested nodule in the posterior right upper lobe is unchanged. No new nodule or mass lesion identified. No adenopathy. The mediastinum demonstrates atherosclerotic changes to the thoracic aorta and coronary arteries without aortic aneurysm or cardiomegaly. No pericardial effusion. Pacemaker identified. Small hiatal hernia at the gastroesophageal junction noted. Limited upper abdomen demonstrates 1 cm right adrenal adenoma. Musculoskeletal structures demonstrate chronic changes. Impression: 1. No evidence for pulmonary embolus. 2. Moderate chronic COPD and emphysematous changes along with bibasilar fibroatelectatic changes with suspected subtle superimposed acute basilar atelectasis and small right lower lobe consolidations. Correlation and follow up recommended. 3. Further chronic changes as described above. 4. Small hiatal hernia. Benign 1 cm right adrenal adenoma. Signed by Aaron Cadena MD 11/09/2016 09:47 P
[2016-11-09] MEDS ORDERED: traMADol 50 MG TAB PO PRN (22:15)
[2016-11-09] MEDS ORDERED: PIPERACILLIN/TAZOBACTAM SOD 3.375 GM in D5W MINI-BAG PLUS 50 ML IV ONE (22:15)
[2016-11-09] MEDS ORDERED: SIMETHICONE 80 MG CHEW TAB PO PRN (22:15)
[2016-11-09] MEDS ORDERED: CALCIUM CARBONATE 500 MG CHEW U/D PO PRN (22:15)
[2016-11-09] MEDS ORDERED: SODIUM CHLORIDE NASAL 0.65% SPRAY BTL (OCEAN) PRN (22:15)
[2016-11-09] MEDS ORDERED: ALBUTEROL SULFATE 2.5 MG/0.5 ML INH NEB SOLN INH PRN (22:15)
[2016-11-09] MEDS ORDERED: VANCOMYCIN HCL 1,000 MG, VIAL MATE ADAPTER 1 EACH in D5W 250 ML IV ONE (22:15)
[2016-11-09] MEDS ORDERED: NITROGLYCERIN 0.4 MG SUBL TABLET SL PRN (22:15)
[2016-11-09] MEDS ORDERED: PRED10TA2 PO (22:35)
[2016-11-09] MEDS ORDERED: ZEBE1TAB PO (22:35)
[2016-11-09] MEDS ORDERED: ALBU83IN INH (22:35)
[2016-11-09] MEDS ORDERED: PROAAER10 INH (22:36)
[2016-11-09] MEDS ORDERED: ONDANSETRON 4MG/2ML VIAL (J2405) IV PRN (22:45)
[2016-11-09] MEDS ORDERED: ACETAMINOPHEN TAB 650MG DOSE (2X325MG) PO PRN (22:45)
[2016-11-09 23:05] VITALS: BP 128/70
[2016-11-09] MEDS: ATORVASTATIN 20 MG TAB PO SCH (23:51)
[2016-11-09] MEDS: PANTOPRAZOLE 40MG TAB (PROTONIX) PO SCH (23:51)
[2016-11-09] MEDS: FAMOTIDINE 20 MG TAB PO SCH (23:51)
[2016-11-09] MEDS: HEPARIN SOD (PORCINE) 5000 UNITS/ML VIAL SC SCH (23:52)
[2016-11-10] MEDS ORDERED: VANCOMYCIN HCL 1,000 MG, VIAL MATE ADAPTER 1 EACH in D5W 250 ML IV ONE (02:00)
[2016-11-10] MEDS ORDERED: IPRATROPIUM 0.5MG/ALBUTEROL 2.5MG INH SOL UD 3ML (DUONEB)(J7620) NEB PRN (03:45)
[2016-11-10 04:00] VITALS: O2SAT 94
[2016-11-10] MEDS: IPRATROPIUM 0.5MG/ALBUTEROL 2.5MG INH SOL UD 3ML (DUONEB)(J7620) NEB SCH ×4 (04:00→19:31)
[2016-11-10 05:52] LABS: BASO % 0.1 % (0.0-1.0); EOS # 0.1 K/mm3 (0.0-0.50); EOS % 0.7 % (0.0-3.0); LARGE UNSTAINED CELL # 0.1 K/mm3 (0.0-0.4); LARGE UNSTAINED CELL % 0.6 % (0.0-4.0); LYMPH # 0.6 K/mm3 (1.5-4.5); LYMPH % 2.4 % (24.0-44.0); MEAN CORPUSCULAR VOLUME 90.9 fl (80.0-96.0); MONO # 0.5 K/mm3 (0.0-0.8); MONO % 2.7 % (0.0-5.0); NEUTROPHILS # 18.4 K/mm3 (1.8-7.7); NEUTROPHILS % 93.4 % (36.0-66.0); PLATELET COUNT, AUTOMATED 199 k/mm3 (150-450); WHITE BLOOD COUNT 19.7 K/mm3 (4.0-10.0)
[2016-11-10 06:00] VITALS: BP 109/55
[2016-11-10] MEDS: LEVOTHYROXINE 50MCG TABLET (0.05MG) PO SCH (06:06)
[2016-11-10 06:17] LABS: ANION GAP 5 MEQ/L (8-16); BLOOD UREA NITROGEN 21 MG/DL (7-18); CALCIUM LEVEL 9.1 MG/DL (8.8-10.2); CARBON DIOXIDE LEVEL 34 MEQ/L (21-32); CHLORIDE LEVEL 95 MEQ/L (98-107); CREATININE FOR GFR 1.12 MG/DL (0.70-1.30); GLOMERULAR FILTRATION RATE > 60.0 (>42); GLUCOSE, FASTING 137 MG/DL (83-110); POTASSIUM SERUM 4.7 MEQ/L (3.5-5.1); SODIUM LEVEL 134 MEQ/L (136-145); T UPTAKE 39 % (33-40); THYROXINE (T4) 5.5 UG/DL (4.5-12.0)
--- NOTE | 2016-11-10 07:54 | HPEPDOC ---
General Date of Admission Nov 09, 2016 at 22:43 Primary Care Physician: Moe Archer MD Attending Physician: Sebastien Constantino MD Chief Complaint The patient is a 71-year-old male admitted with a reason for visit of Dyspnea. History of Present Illness This is a 71-year-old male admitted with a PMH of COPD with chronic hypoxic respiratory failure, CAD, ischemic cardiomyopathy with AICD placement and HFpEF , anemia of chronic dz, cor pulmonale, hypothyroidism, BPH, HTN, hyperlipidemia who was recently hospitalized and discharged home about 1mo ago after tx for acute copd and CAP. Pt was doing back at his usual state of health, when he reported that he started become much more dyspneic. He reports that his baseline ET is about 30ft (across a room and back), but that the day of admit his ET had decreased to point where he had difficulty making it to his bathroom. He reported cough as well, but no sig sputum production, fevers/chills , drenching sweats, diarrhea or abd pain. Home Medications Scheduled Aspirin (Aspir-81) 81 Mg Tab, 81 MG PO DAILY, (Reported) Atorvastatin Calcium (Atorvastatin Calcium) 80 Mg Tab, 80 MG PO QHS, (Reported) Bisoprolol Fumarate (Zebeta) 10 Mg Tab, 10 MG PO DAILY, (Reported) Esomeprazole Magnesium Trihydr (Nexium) 40 Mg Cap, 40 MG PO BID, (Reported) Levothyroxine Sodium (Synthroid) 50 Mcg Tab, 50 MCG PO DAILY, (Reported) Prednisone (Prednisone) 10 Mg Tab, 10 MG PO DAILY, (Reported) Ranitidine HCl (Ranitidine HCl) 300 Mg Tab, 1 TAB PO QHS, (Reported) Salmeterol/Fluticasone (Advair Hfa 230-21 Mcg/Act) 1 Aer Aer, 2 PUFF INH BID, ( Reported) Spironolactone (Spironolactone) 50 Mg Tab, 50 MG PO DAILY, (Reported) Tamsulosin Hydrochloride (Flomax) 0.4 Mg Cap, 0.4 MG PO DAILY, (Reported) Tiotropium [place] Monohydrate (Spiriva [place]) 18 Mcg Cap, 1 CAP INH DAILY, (Reported) Torsemide (Torsemide) 20 Mg Tab, 60 MG PO BID, (Reported) Scheduled PRN (Saline Nasal [place]) 0.65 % Spr, 2 SPRAYS NA QID PRN for NASAL DRYNESS, ( Reported) Acetaminophen (Acetaminophen) 325 Mg Tab, 650 MG PO Q4H PRN for PAIN, (Reported) Albuterol Sulfate (Albuterol Sulfate) 2.5 Mg/3 Ml Nebu, 2.5 MG INH Q4H PRN for SHORTNESS OF BREATH, (Reported) Albuterol Sulfate (Proair Hfa) 108 Mcg/Act Aer, 2 PUFF INH Q4H PRN for SHORTNESS OF BREATH, (Reported) Calcium Carbonate (Tums) 500 Mg Chw, 1,000 MG PO PRN PRN for HEARTBURN, ( Reported) Nitroglycerin (Nitrostat) 0.4 Mg Subl, 0.4 MG SL NITRO PRN for CHEST PAIN, ( Reported) Simethicone (Gas-X) 80 Mg Chw, 160 MG PO PRN PRN for GAS PAIN, (Reported) Tramadol HCl (Tramadol HCl) 50 Mg Tab, 50 MG PO TID PRN for PAIN, (Reported) Allergies Coded Allergies: Hydrocodone (Unverified Allergy, Severe, anaphylaxis, 10/13/15) Latex (Verified Allergy, Unknown, 08/05/12) Shellfish Allergy (Verified Allergy, Unknown, 08/05/12) Sulfa Drugs (Verified Allergy, Unknown, 08/05/12) Past Medical History Medical History 1. COPD 2. Chronic low back pain - DDD, T10 compression fx 3. CAD, ischemic cardiomyopathy 4. S/p ICD placement 5. Diastolic congestive heart failure 6. Murphy's esophagitis, GERD 7. Chronic anemia 8. Chronic cor pulmonale 9. Hypothyroidism 10. Bilateral hearing loss 11. BPH 12. Hypertension 13. Hyperlipidemia Surgical History 1. ICD placement 2004 2. ICD replacement 2009 3. Right Inguinal hernia repair 4. Kidney stone removal 1979 Family History Significant Family History: No pertinent family hx Social History * Smoker: current smoker Alcohol: Denies Drugs: denies Recent Travel/Sick Contacts: Denies: Recent travel Psychosocial History: No pertinent psych hx Review of Symptoms Constitutional: Reports: Fatigue, Denies: Chills, Fever, Weakness Eyes: Denies: Vision change ENT: Denies: Head Aches, Dysphagia, Sinus Congestion, Post Nasal Drip Skin: Denies: Rash, Lesions Pulmonary: Reports: Dyspnea, Cough, Denies: Pleuritic Chest Pain Cardiovascular: Denies: Chest Pain, Palpitations, Orthopnea, Paroxysmal Noc. Dyspnea Gastrointestinal: Denies: Nausea, Vomiting, Abdominal Pain, Diarrhea Genitourinary: Denies: Dysuria, Incontinence Hematologic: Denies: Bruising Endocrine: Denies: Polydipsia, Polyphagia, Polyuria Musculoskeletal: Denies: Neck Pain, Back Pain Neurological: Denies: Weakness, Numbness Psych: Reports: Mood Normal Physical Examination General Exam: Positive: Alert, Cooperative, No Acute Distress Eye Exam: Positive: Conjunctiva & lids normal, Negative: Sclera icteric ENT Exam: Positive: Atraumatic, Mucous membr. moist/pink Neck Exam: Positive: Supple, +2 carotid pulse wo bruit, Negative: JVD, Lymphadenopathy Chest Exam: Positive: Clear to auscultation (with coarse BS B/L), Normal air movement, Negative: Rales, Rhonchi, Wheezing Heart Exam: Positive: Rate Normal, Regular Rhythm, Normal S1, Normal S2, Negative: Tachycardic, Bradycardic, Gallops, Murmurs, Rubs Telemetry: Positive: No significant arrhythmia Abdomen Exam: Positive: Normal bowel sounds, Soft, Negative: BS Hyperactive, BS Hypoactive, Tenderness, Hepatospenomegaly Extremity Exam: Negative: Clubbing, Cyanosis, Edema Skin Exam: Positive: Nl turgor and temperature, Negative: Rash, Breakdown Neuro Exam: Positive: Normal Gait, Normal Speech, Strength at 5/5 X4 ext, Cranial Nerves 3-12 NL Psych Exam: Positive: Mental status NL, Mood NL, Oriented x 3, Negative: Anxiety Vital Signs Vital Signs Date Time Temp Pulse Resp B/P (MAP) Pulse Ox O2 Delivery O2 Flow Rate FiO2 11/10/16 04:00 73 11/10/16 04:00 94 Nasal Cannula 4.0 11/09/16 23:05 97.2 20 128/70 (89) Laboratory Data Labs 24H Laboratory Tests 2 11/09/16 19:20: Blood Gas Bicarbonate Standard 28.9H, Arterial Blood pH 7.451H, Arterial Blood Partial Pressure CO2 43.3, Arterial Blood Partial Pressure O2 87.9, Arterial Blood Total CO2 30.8, Arterial Blood HCO3 29.5H, Arterial Blood Base Excess 4.9H , Arterial Blood Oxygen Saturation 97.0 11/09/16 19:32: White Blood Count 21.9H, Red Blood Count 4.27L, Hemoglobin 12.5L, Hematocrit 38.6L, Mean Corpuscular Volume 90.3, Mean Corpuscular Hemoglobin 29.3, Mean Corpuscular Hemoglobin Concent 32.4, Red Cell Distribution Width 12.9, Platelet Count 211, Neutrophils (%) (Auto) 86.2H, Lymphocytes (%) (Auto) 5.2L, Monocytes (%) (Auto) 6.5H, Eosinophils (%) (Auto) 0.6, Basophils (%) (Auto) 0.3, Neutrophils # (Auto) 18.9H, Lymphocytes # (Auto) 1.4L, Monocytes # (Auto) 1.4H, Eosinophils # (Auto) 0.1, Basophils # (Auto) 0.1, Large Unclassified Cells % 1.2 , Large Unclassified Cells # 0.3, Anion Gap 7L, Glomerular Filtration Rate > 60.0, Calcium Level 8.7L, Aspartate Amino Transf (AST/SGOT) 18, Alanine Aminotransferase (ALT/SGPT) 20, Alkaline Phosphatase 125H, Total Bilirubin 0.4, Direct Bilirubin 0.1, Total Creatine Kinase 54, Creatine Kinase MB 1.0, Creatine Kinase MB Relative Index 1.85, Troponin I < 0.02, B-Type Natriuretic Peptide 23.8, Total Protein 6.2L, Albumin 3.5, Albumin/Globulin Ratio 1.30 11/09/16 20:27: D-Dimer, Quantitative 458.2 11/10/16 05:37: White Blood Count 19.7H, Red Blood Count 3.87L, Hemoglobin 11.6L, Hematocrit 35.2L, Mean Corpuscular Volume 90.9, Mean Corpuscular Hemoglobin 30.0, Mean Corpuscular Hemoglobin Concent 33.0, Red Cell Distribution Width 13.0, Platelet Count 199, Neutrophils (%) (Auto) 93.4H, Lymphocytes (%) (Auto) 2.4L, Monocytes (%) (Auto) 2.7, Eosinophils (%) (Auto) 0.7, Basophils (%) (Auto) 0.1, Neutrophils # (Auto) 18.4H, Lymphocytes # (Auto) 0.6L, Monocytes # (Auto) 0.5, Eosinophils # (Auto) 0.1, Basophils # (Auto) 0.0, Large Unclassified Cells % 0.6 , Large Unclassified Cells # 0.1, Anion Gap 5L, Glomerular Filtration Rate > 60.0, Calcium Level 9.1, Blood Urea Nitrogen 21H, Creatinine 1.12, Sodium Level 134L, Potassium Level 4.7, Chloride Level 95L, Carbon Dioxide Level 34H, Thyroid Stimulating Hormone (TSH) 3.120, Free Thyroxine Index 2.1, Thyroxine (T4 ) 5.5, Triiodothyronine (T3) Uptake 39 CBC/BMP Laboratory Tests 11/09/16 19:32 Red Blood Count 4.27 L, Mean Corpuscular Volume 90.3, Mean Corpuscular Hemoglobin 29.3, Mean Corpuscular Hemoglobin Concent 32.4, Red Cell Distribution Width 12.9, Neutrophils (%) (Auto) 86.2 H, Lymphocytes (%) (Auto) 5.2 L, Monocytes (%) (Auto) 6.5 H, Eosinophils (%) (Auto) 0.6, Basophils (%) ( Auto) 0.3, Neutrophils # (Auto) 18.9 H, Lymphocytes # (Auto) 1.4 L, Monocytes # (Auto) 1.4 H, Eosinophils # (Auto) 0.1, Basophils # (Auto) 0.1 11/10/16 05:37 Red Blood Count 3.87 L, Mean Corpuscular Volume 90.9, Mean Corpuscular Hemoglobin 30.0, Mean Corpuscular Hemoglobin Concent 33.0, Red Cell Distribution Width 13.0, Neutrophils (%) (Auto) 93.4 H, Lymphocytes (%) (Auto) 2.4 L, Monocytes (%) (Auto) 2.7, Eosinophils (%) (Auto) 0.7, Basophils (%) (Auto ) 0.1, Neutrophils # (Auto) 18.4 H, Lymphocytes # (Auto) 0.6 L, Monocytes # ( Auto) 0.5, Eosinophils # (Auto) 0.1, Basophils # (Auto) 0.0, Calcium Level 9.1 Microbiology Microbiology 11/09/16 Blood Culture, Received Pending 11/09/16 Blood Culture, Received Pending Assessment/Plan This is a 71-year-old male admitted with a PMH of COPD with chronic hypoxic respiratory failure, CAD, ischemic cardiomyopathy with AICD placement and HFpEF , anemia of chronic dz, cor pulmonale, hypothyroidism, BPH, HTN, hyperlipidemia who presents with dyspnea, decreased ET and and likely acute copd exacerbation 1. Dyspnea with acute on chronic hypoxic resp failure-recurrent pna v acute copd Despite cxr and ct findings and this time have a low suspicion for recurrent pna Pt recently tx'd for pna and completed course of abx with moxi and prednisone taper While pt did receive vanc/zosyn in ED, feel his CT findings are related to his prior pna and given his lack of increased sputum production or change in color would hold off on abx and treat pt for acute copd exac only Have ordered a procalcitonin, which would support holding abx if it is negative , as well as a Legionella ag urine Have ordered duonebs q6h with q4h prn (pt reports side-effects if used more often) Will start po prednisone to 40mg daily and can taper down after 5-7days Supplemental o2 NC to maintain o2 sat 90% Hold spiriva 2. HFpEF with AICD Pt's most recent echo shows EF 60%. Continue bb Continue aldactone Continue torsemide 3. CAD with ischemic cardiomyopathy Continue asa Continue statin Continue bb Continue aldactone 4. Hypothyroidism Continue synthroid TFT's normal 5. BPH Continue flomax 6. DVT prophylaxis Heparin sq Plan / VTE VTE Prophylaxis Ordered?: Yes Jordan Bender MD Nov 10, 2016 06:47
[2016-11-10] MEDS: ADVAIR HFA 230/21MCG INHALER INH SCH ×2 (08:22→19:31)
[2016-11-10] MEDS ORDERED: predniSONE 10 MG TAB PO SCH (09:00)
[2016-11-10] MEDS: BISOPROLOL FUMARATE 10 MG TAB PO SCH (09:03)
[2016-11-10] MEDS: HEPARIN SOD (PORCINE) 5000 UNITS/ML VIAL SC SCH ×2 (09:03→20:45)
[2016-11-10] MEDS: TAMSULOSIN 0.4 MG CAP PO SCH (09:03)
[2016-11-10] MEDS: PANTOPRAZOLE 40MG TAB (PROTONIX) PO SCH ×2 (09:04→20:45)
[2016-11-10] MEDS: SPIRONOLACTONE 50 MG TAB PO SCH (09:04)
[2016-11-10] MEDS: TORSEMIDE 20 MG TAB PO SCH ×2 (09:04→17:06)
[2016-11-10] MEDS: ASPIRIN 81 MG ENTERIC TAB PO SCH (09:04)
[2016-11-10] MEDS: predniSONE 20 MG TAB PO SCH (09:04)
[2016-11-10 14:00] VITALS: BP 97/65
--- NOTE | 2016-11-10 14:27 | IPNPDOC ---
Subjective Date Seen The patient was seen on 11/10/16. Subjective Chief Complaint/HPI The patient is a 71-year-old male admitted with a reason for visit of Pneumonia. General: Reports: Chills (had chills on the day of admission. none since ) Pulmonary: Reports: Dyspnea, Cough Cardiovascular: Denies: Chest Pain, Palpitations Gastrointestinal: Denies: Abdominal Pain Musculoskeletal: Reports: Back Pain (chronic low back pain.) Objective Physical Examination General Exam: Positive: Alert, Cooperative, No Acute Distress Eye Exam: Positive: Conjunctiva & lids normal, Negative: Sclera icteric ENT Exam: Positive: Atraumatic, Mucous membr. moist/pink Neck Exam: Positive: Supple, +2 carotid pulse wo bruit, Negative: JVD, Lymphadenopathy Chest Exam: Positive: Clear to auscultation (with coarse BS B/L), Rales (faint rales in left base posterolaterally.), Diminished, Negative: Rhonchi, Wheezing Heart Exam: Positive: Rate Normal, Regular Rhythm, Normal S1, Normal S2, Negative: Tachycardic, Bradycardic, Gallops, Murmurs, Rubs Telemetry: Positive: No significant arrhythmia Abdomen Exam: Positive: Normal bowel sounds, Soft, Negative: BS Hyperactive, BS Hypoactive, Tenderness, Hepatospenomegaly Extremity Exam: Positive: Edema (1+ edema bilaterally), Negative: Clubbing, Cyanosis Skin Exam: Positive: Nl turgor and temperature, Negative: Rash, Breakdown Neuro Exam: Positive: Normal Speech, Cranial Nerves 3-12 NL Psych Exam: Positive: Mental status NL, Mood NL, Oriented x 3, Negative: Anxiety Assessment /Plan Problems (1) Community acquired pneumonia Status: Acute Response to Treatment: Improving Problem Text: 11/10/16 on admission he received a single dose of zosyn, and routine dosing with vanco is ordered. CXR shows right basilar infiltrate. change to levofloxacin 750 today, on prednisone at 40, reports not tolerating 60mg dose due to "shakes" (2) Traumatic compression fracture of T10 thoracic vertebra Status: Chronic Response to Treatment: Stable Problem Specific Plan: Monitor Clinically Problem Text: finds the pain meds he has been using cause him to have weird dreams (3) Chronic combined systolic and diastolic CHF (congestive heart failure) Permanent Comment: s/p ICD placement Last Edited By: Олег Oates M.D. on Nov 14:22 Status: Chronic Response to Treatment: Stable Problem Specific Plan: Monitor Clinically Plan/VTE VTE Prophylaxis Ordered?: Yes Plan Medications: Change to PO Anticipated Discharge: Home VS, I&O, 24H, Fishbone Vital Signs/I&O Vital Signs Date Time Temp Pulse Resp B/P (MAP) Pulse Ox O2 Delivery O2 Flow Rate FiO2 11/10/16 09:03 76 109/55 11/10/16 08:00 Nasal Cannula 4.0 11/10/16 06:00 97.3 20 92 I&O- Last 24 Hours up to 6 AM 11/10/16 06:00 Intake Total 530 ml Output Total 800 ml Balance -270 ml Laboratory Data 24H LABS Laboratory Tests 2 11/09/16 19:20: Blood Gas Bicarbonate Standard 28.9H, Arterial Blood pH 7.451H, Arterial Blood Partial Pressure CO2 43.3, Arterial Blood Partial Pressure O2 87.9, Arterial Blood Total CO2 30.8, Arterial Blood HCO3 29.5H, Arterial Blood Base Excess 4.9H , Arterial Blood Oxygen Saturation 97.0 11/09/16 19:32: White Blood Count 21.9H, Red Blood Count 4.27L, Hemoglobin 12.5L, Hematocrit 38.6L, Mean Corpuscular Volume 90.3, Mean Corpuscular Hemoglobin 29.3, Mean Corpuscular Hemoglobin Concent 32.4, Red Cell Distribution Width 12.9, Platelet Count 211, Neutrophils (%) (Auto) 86.2H, Lymphocytes (%) (Auto) 5.2L, Monocytes (%) (Auto) 6.5H, Eosinophils (%) (Auto) 0.6, Basophils (%) (Auto) 0.3, Neutrophils # (Auto) 18.9H, Lymphocytes # (Auto) 1.4L, Monocytes # (Auto) 1.4H, Eosinophils # (Auto) 0.1, Basophils # (Auto) 0.1, Large Unclassified Cells % 1.2 , Large Unclassified Cells # 0.3, Anion Gap 7L, Glomerular Filtration Rate > 60.0, Calcium Level 8.7L, Aspartate Amino Transf (AST/SGOT) 18, Alanine Aminotransferase (ALT/SGPT) 20, Alkaline Phosphatase 125H, Total Bilirubin 0.4, Direct Bilirubin 0.1, Total Creatine Kinase 54, Creatine Kinase MB 1.0, Creatine Kinase MB Relative Index 1.85, Troponin I < 0.02, B-Type Natriuretic Peptide 23.8, Total Protein 6.2L, Albumin 3.5, Albumin/Globulin Ratio 1.30 11/09/16 20:27: D-Dimer, Quantitative 458.2 11/10/16 05:37: White Blood Count 19.7H, Red Blood Count 3.87L, Hemoglobin 11.6L, Hematocrit 35.2L, Mean Corpuscular Volume 90.9, Mean Corpuscular Hemoglobin 30.0, Mean Corpuscular Hemoglobin Concent 33.0, Red Cell Distribution Width 13.0, Platelet Count 199, Neutrophils (%) (Auto) 93.4H, Lymphocytes (%) (Auto) 2.4L, Monocytes (%) (Auto) 2.7, Eosinophils (%) (Auto) 0.7, Basophils (%) (Auto) 0.1, Neutrophils # (Auto) 18.4H, Lymphocytes # (Auto) 0.6L, Monocytes # (Auto) 0.5, Eosinophils # (Auto) 0.1, Basophils # (Auto) 0.0, Large Unclassified Cells % 0.6 , Large Unclassified Cells # 0.1, Anion Gap 5L, Glomerular Filtration Rate > 60.0, Calcium Level 9.1, Blood Urea Nitrogen 21H, Creatinine 1.12, Sodium Level 134L, Potassium Level 4.7, Chloride Level 95L, Carbon Dioxide Level 34H, Thyroid Stimulating Hormone (TSH) 3.120, Free Thyroxine Index 2.1, Thyroxine (T4 ) 5.5, Triiodothyronine (T3) Uptake 39 CBC/BMP Laboratory Tests 11/09/16 19:32 Red Blood Count 4.27 L, Mean Corpuscular Volume 90.3, Mean Corpuscular Hemoglobin 29.3, Mean Corpuscular Hemoglobin Concent 32.4, Red Cell Distribution Width 12.9, Neutrophils (%) (Auto) 86.2 H, Lymphocytes (%) (Auto) 5.2 L, Monocytes (%) (Auto) 6.5 H, Eosinophils (%) (Auto) 0.6, Basophils (%) ( Auto) 0.3, Neutrophils # (Auto) 18.9 H, Lymphocytes # (Auto) 1.4 L, Monocytes # (Auto) 1.4 H, Eosinophils # (Auto) 0.1, Basophils # (Auto) 0.1 11/10/16 05:37 Red Blood Count 3.87 L, Mean Corpuscular Volume 90.9, Mean Corpuscular Hemoglobin 30.0, Mean Corpuscular Hemoglobin Concent 33.0, Red Cell Distribution Width 13.0, Neutrophils (%) (Auto) 93.4 H, Lymphocytes (%) (Auto) 2.4 L, Monocytes (%) (Auto) 2.7, Eosinophils (%) (Auto) 0.7, Basophils (%) (Auto ) 0.1, Neutrophils # (Auto) 18.4 H, Lymphocytes # (Auto) 0.6 L, Monocytes # ( Auto) 0.5, Eosinophils # (Auto) 0.1, Basophils # (Auto) 0.0, Calcium Level 9.1 Microbiology Microbiology 11/09/16 Blood Culture, Received Pending 11/09/16 Blood Culture, Received Pending Олег Oates MD Nov 10, 2016 14:26
[2016-11-10] MEDS: LevoFLOXacin 750 MG TABLET PO SCH (14:49)
[2016-11-10] MEDS: ATORVASTATIN 20 MG TAB PO SCH (20:45)
[2016-11-10] MEDS: FAMOTIDINE 20 MG TAB PO SCH (20:45)
[2016-11-10 22:00] VITALS: BP 104/65
[2016-11-11] MEDS: IPRATROPIUM 0.5MG/ALBUTEROL 2.5MG INH SOL UD 3ML (DUONEB)(J7620) NEB SCH ×2 (01:49→07:58)
[2016-11-11] MEDS: LEVOTHYROXINE 50MCG TABLET (0.05MG) PO SCH (05:30)
[2016-11-11] MEDS: LevoFLOXacin 750 MG TABLET PO SCH (05:30)
[2016-11-11 06:00] VITALS: BP 108/65
[2016-11-11] MEDS: ADVAIR HFA 230/21MCG INHALER INH SCH (07:40)
[2016-11-11] MEDS ORDERED: LEVA750T7 PO (08:42)
[2016-11-11] MEDS ORDERED: PRED20TA PO (08:42)
[2016-11-11 08:53] VITALS: BP 108/65
[2016-11-11] MEDS: TAMSULOSIN 0.4 MG CAP PO SCH (08:53)
[2016-11-11] MEDS: predniSONE 20 MG TAB PO SCH (08:53)
[2016-11-11] MEDS: SPIRONOLACTONE 50 MG TAB PO SCH (08:53)
[2016-11-11] MEDS: BISOPROLOL FUMARATE 10 MG TAB PO SCH (08:53)
[2016-11-11] MEDS: ASPIRIN 81 MG ENTERIC TAB PO SCH (08:53)
[2016-11-11] MEDS: PANTOPRAZOLE 40MG TAB (PROTONIX) PO SCH (08:53)
[2016-11-11] MEDS: TORSEMIDE 20 MG TAB PO SCH (08:54)
[2016-11-11] MEDS: HEPARIN SOD (PORCINE) 5000 UNITS/ML VIAL SC SCH (08:55)
--- NOTE | 2016-11-11 23:33 | DSES ---
DATE OF ADMISSION: 11/09/2016 DATE OF DISCHARGE: 11/11/2016 REASON FOR ADMISSION: Mr. Murphy is 71-year-old followed by Dr. Archer at the [facility] with a history of chronic obstructive pulmonary disease (COPD) with chronic hypoxic respiratory failure, ischemic cardiomyopathy status post automatic implantable cardioverter-defibrillator (AICD) placement and cor pulmonale, hypothyroidism, benign prostatic hypertrophy, who was admitted with increased dyspnea, exercise tolerance had decreased, less complete clearance of his difficulty breathing with use of inhaled therapeutics, but he denied significant sweats. He did admit to a chill the day of admission to [facility] on followup visit here in the hospital, but denied same on admission when seen by the admitting physician. HOSPITAL COURSE: He received a boost in his chronic steroids, antibiotic therapy given intravenous (IV) included vancomycin IV and piperacillin. He was given a single one-time dose of piperacillin, the following day switched to levofloxacin at 750 mg dose, vancomycin discontinued. He has never had a positive culture for methicillin-resistant Staphylococcus aureus and blood cultures collected on 11/09 were negative. Imaging studies did show a right basilar infiltrate. There was no evidence for pulmonary embolus on CT angiography. By the afternoon on 11/10/2016, he was better, felt like he might be ready for discharge, but he still has some faint wheezing on expiration, particularly in the right lung field and basilar rales were noted. On 11/11, day of discharge, he feels better. He is breathing comfortably, although still mildly tachypneic. There is no evidence of wheezing at the time of discharge. He still has minimal right basilar rales noted. His condition, he is afebrile. His oxygen saturation is 94% currently on 3 liters. Usually he is on four at home. Blood pressure 108/65, pulse 70, temperature 97 with a temporal measuring device. ASSESSMENT: 1. Pneumonia, right basilar, organism not identified, cultures were not obtained. 2. Underlying chronic obstructive pulmonary disease (COPD). 3. Ischemic cardiomyopathy. 4. BPH. DISCHARGE MEDICATIONS: - Tylenol 650 every four as needed - albuterol nebulizers 2.5 mg every 4 hours as needed - albuterol metered-dose inhaler two puffs every four as needed - aspirin 81 mg daily - atorvastatin 80 mg daily - bisoprolol 10 mg daily - calcium carbonate 1000 mg as needed for heartburn - esomeprazole 40 mg twice a day - levothyroxine 50 mcg daily - nitroglycerin 0.4 mg sublingual as needed for chest pain, none was required during hospital stay - ranitidine 300 mg by mouth at bedtime - saline nasal spray as needed for nasal dryness some - salmeterol/fluticasone Advair HFA 230/21 mcg per activation two inhalations twice a day - simethicone 160 mg as needed for gas pain - spironolactone 50 mg by mouth daily - tamsulosin 0.4 mg daily - Spiriva one inhalation daily - torsemide 60 mg by mouth twice a day - tramadol 50 mg by mouth three times a day as needed for pain - prednisone 40 mg daily for 5 days and then reduce to 20 mg until followup - levofloxacin 750 mg by mouth daily for 5 days Activity as tolerated. Continue oxygen per usual recommendation at 4 liters per nasal cannula. In addition, we discussed the fact that he has had previous osteoporosis related compression fractures and to consider bone densitometry if not recently done and possible therapy with bisphosphonate or alternative for improvement of bone strength.
== END 2016-11-11 10:35 | disposition home or self-care (01) | DRG 190 ==
LOC: M ED 17:55 → M ED INP 22:43 → M MSPAV 23:05
PROVIDERS: ATTEND Family Medicine
DX: J44.0 Chronic obstructive pulmonary disease with (acute) lower respiratory infection (principal); J18.9 Pneumonia, unspecified organism; J96.11 Chronic respiratory failure with hypoxia; I50.42 Chronic combined systolic (congestive) and diastolic (congestive) heart failure; M54.5 Low back pain; I25.10 Atherosclerotic heart disease of native coronary artery without angina pectoris; I25.5 Ischemic cardiomyopathy; K22.70 Barrett's esophagus without dysplasia; K21.9 Gastro-esophageal reflux disease without esophagitis; D64.9 Anemia, unspecified; I27.81 Cor pulmonale (chronic); E03.9 Hypothyroidism, unspecified; H91.93 Unspecified hearing loss, bilateral; N40.0 Benign prostatic hyperplasia without lower urinary tract symptoms; I11.0 Hypertensive heart disease with heart failure; E78.5 Hyperlipidemia, unspecified; Z95.810 Presence of automatic (implantable) cardiac defibrillator; Z91.040 Latex allergy status; Z88.2 Allergy status to sulfonamides; Z88.5 Allergy status to narcotic agent; Z91.013 Allergy to seafood; Z79.82 Long term (current) use of aspirin; Z79.52 Long term (current) use of systemic steroids; Z79.899 Other long term (current) drug therapy

== ENCOUNTER → 2016-12-07 | Outpatient (CLI) | payer MEDICARE, MEDICAID ==
[~2016-12-07] MED LIST changes: +ACE65ERTAB PO; +ALBU83IN INH; +ALEN70TA39 PO; +CEFT500T3 PO; +DICL1GEL3 TD; +LEVO50TA45 PO; +LEVO75TA34 PO; +ZEBE1TAB PO
--- NOTE | 2016-12-28 01:16 | ECWPNPC ---
PATIENT NAME: FIDEL TORRES : 1945 GENDER: MALE VISIT DATE: 12/07/2016 DISCHARGE DATE: 12/07/16 1238 VISIT LOCKED DATE TIME: PHYSICIAN: IKER PETERS PHYSICIAN PAGER NO: [phone] RESOURCE: IKER PETERS REASON FOR APPOINTMENT 1. BACK PAIN HISTORY OF PRESENT ILLNESS NEW PATIENT CONSULT: WHEN DID YOUR PAIN FIRST START? . BRIEFLY DESCRIBE HOW YOUR PAIN STARTED? . HOW DOES YOUR PAIN CHANGE WITH TIME? . DOES YOUR PAIN AWAKEN YOU FROM SLEEP? . HOW MANY HOURS OF SLEEP DO YOU NORMALLY GET? . ANY DIAGNOSTIC TESTING? . FACILITY WHERE TESTS WERE DONE? ____. PAIN TREATMENT TREATMENT YES CANCER HAVE YOU EVER HAD ANY TYPE OF CANCER?NO NO. PAIN SCREENING: PATIENT HAS A COMPLAINT OF ACUTE OR CHRONIC PAIN :YES FALL RISK SCREENING: SCREENING :NO FALLS IN THE PAST YEAR S[place] INVENTORY: QUESTIONNAIRE ASSESSEDYES SCORE VALUE CALCULATED YES SCORE: DENIES SUICIDAL OR HOMICIDAL IDEATION TODAY'S VISIT: NOTES: STEPHIE VÁZQUEZ PA-C FOR THORACIC PAIN S/P COMPRESSION FRACTURE AT T10 IDENTIFIED ON XRAY IN JULY 2016. REPORTS MIN DISCOMFORT IN MID BACK AT THIS TIME. STATES BEGAN HAVING NEW PAIN IN LOW BACK RIGHT SIDE WITH RADIATION TO RIGHT LEG AND HAS NEW NUMBNESS IN RIGHT THIGH. PAIN CAN AWAKEN FROM SLEEP BUT THIS IS BETTER SINCE SLEEPING IN RECLINER. REPORTS NO PAIN IN MID BACK WHEN ATTEMPTING TO STAND BUT HAS SIG PAIN IN RIGHT SIDE LOW BACK AND LEG. NOTES INTERMITTANT BURNING UNDER THE TOES. . CURRENT MEDICATIONS TAKING TRAMADOL HCL 50 MG TABLET 1 TABLET NEEDED ORALLY EVERY 6 HOURS NEEDED FOR SEVERE PAIN MDD = 4 TAKING SALINE NASAL SPRAY 0.65 % SOLUTION 2 SPRAYS IN EACH NOSTRIL NEEDED NASALLY EVERY 4 HRS NEEDED TAKING LIPITOR 80 MG TABLET 1 TAB ORALLY AT BEDTIME, NOTES: NELSON TAKING NITROGLYCERIN 0.4 MG TABLET SUBLINGUAL 1 TABLET UNDER THE TONGUE AND ALLOW TO DISSOLVE NEEDED SUBLINGUAL DIRECTED TAKING BISOPROLOL FUMARATE 10 MG TABLET 1 TABLET ORALLY ONCE A DAY TAKING ACETAMINOPHEN 650 MG TABLET 1 TABLET NEEDED ORALLY EVERY 4 HRS TAKING SIMETHICONE 80 MG TABLET CHEWABLE 1 TABLET NEEDED ORALLY TWO TIMES A DAY TAKING VOLTAREN 1 % GEL DIRECTED TRANSDERMAL FOUR TIMES DAILY NEEDED TAKING FLOMAX 0.4 MG CAPSULE TAKE 1 CAPSULE BY MOUTH 30 MINUTES AFTER THE SAME MEAL EACH DAY TAKING LEVOTHYROXINE SODIUM 50 MCG TABLET 1 TABLET ON AN EMPTY STOMACH IN THE MORNING ORALLY ONCE A DAY TAKING CALCITONIN (SALMON) 200 UNIT/ACT SOLUTION 1 PUFF NASALLY ONCE A DAY TAKING MAY HAVE - - DIRECTED OXYGEN CONCENTRATOR DAILY DIRECTED, J44.9 TAKING MAY USE - - PORTABLE OXYGEN INHALLATION DX: J44.9 DIRECTED TAKING MAY HAVE - - DIRECTED OCD EVALUATION IF QUALIFIED GIVE POC DX: J44.9 TAKING TUMS 500 MG TABLET CHEWABLE ORALLY TAKING ROLLING WALKER 1 1 4 WHEEL WALKER WITH SEAT DX: J44.9, R26.81. J96.11 DIRECTED TAKING ADVAIR HFA 230-21 MCG/ACT AEROSOL 2 PUFFS INHALATION TWICE A DAY TAKING SPIRIVA HANDIHALER 18 MCG CAPSULE 1 CAPSULE INHALATION ONCE A DAY TAKING PROAIR HFA 108 (90 BASE) MCG/ACT AEROSOL SOLUTION 2 PUFFS NEEDED INHALATION FOUR TIMES DAILY NEEDED TAKING ALBUTEROL SULFATE (2.5 MG/3ML) 0.083% NEBULIZATION SOLUTION 3 ML INHALATION EVERY 4 HRS TAKING ASPIR-81 81 MG TABLET DELAYED RELEASE 1 TABLET ORALLY ONCE A DAY TAKING NEXIUM 40 MG CAPSULE DELAYED RELEASE TAKE 1 TABLET BY MOUTH BEFORE A MEAL TWO TIMES A DAY TAKING SPIRONOLACTONE 50 MG TABLET TAKE ONE TABLET BY MOUTH EVERY DAY TAKING TORSEMIDE 20 MG TABLET 1 TABS ORALLY DAILY TAKING PREDNISONE 20 MG TABLET 1/2 TABLET ORALLY DAILY TAKING RANITIDINE HCL 300 MG TABLET 1 TAB ORALLY DAILY AT BEDTIME NOT-TAKING VOLTAREN 1 % GEL DIRECTED TRANSDERMAL NOT-TAKING ALENDRONATE SODIUM 70 MG TABLET 1 TABLET ORALLY WEEKLY NOT-TAKING ESOMEPRAZOLE MAGNESIUM 40 MG CAPSULE DELAYED RELEASE 1 CAPSULE ORALLY TWICE A DAY MEDICATION LIST REVIEWED AND RECONCILED WITH THE PATIENT PAST MEDICAL HISTORY VEGETATION ON ICD LEAD ON CASEY 10/19--SUSPECTED NBTE, ON WARFARIN X 6 MO PER CARDIOLOGY/ANTECOL; HAD ECHO 05/22, NO MENTION OF THROMBOSIS ON LEAD; WARFARIN WAS DC 06/22 AFTER D/W CARDIOLOGY COPD/EMPHYSEMA CHRONIC LOW BACK PAIN - LUMBAR DDD PER X-RAYS HEARING LOSS BENIGN PROSTATIC HYPERPLASIA 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 BEGAN FOSAMAX 07/[address] 09/2016 ALLERGIES LATEX GLOVES: RASH, HIVES HEAD TO TOE: ALLERGY SHELLFISH: RASH/ITCHING: ALLERGY SULFA (FOR ALLERGY USE ONLY): ALLERGY VICODIN: ANAPHYLAXIS: ALLERGY PERCOCET: HALLUCINATIONS: SIDE EFFECTS NICODERM CQ: RASH: SIDE EFFECTS SURGICAL HISTORY ICD REPLACEMENT 2009,- ICD PLACEMENT 2004 RIGHT INGUINAL HERNIA REPAIR KIDNEY STONE REMOVAL 1979 COLONOSCOPY, DIVERTICULOSIS - REINDL 12/14 EGD, GASTRITIS, HH, BARRETTS ESOPHAGUS - REPEAT 3-5YRS - REINDL 12/14, 03/18 FAMILY HISTORY FATHER: , HEART DISEASE MOTHER: , UNKNOWN 1 SON(S) - HEALTHY. NEGATIVE FOR PROSTATE CANCER OR ANY OTHER UROLOGIC DISEASE. SOCIAL HISTORY GENERAL: TOBACCO USE ARE YOU A:CURRENT SMOKER HOW MANY CIGARETTES A DAY DO YOU SMOKE?11-20 PATIENT COUNSELED ON THE DANGERS OF TOBACCO USE AND URGED TO QUIT:12/07/2016 ARE YOU INTERESTED IN QUITTING?THINKING ABOUT QUITTING COUNSELED THE PATIENT ON SMOKING CESSATION, EDUCATION [id number]/04/2017 CHURCH [id number] NONE LANGUAGE LANGUAGES SPOKEN:GERMAN LEARNING BARRIERS / SPECIAL NEEDS BARRIERS TO LEARNING?NO HEARING IMPAIRED?YES VISION IMPAIRED?YES :CORRECTIVE LENSES COGNITIVELY IMPAIRED?NO READINESS TO LEARN?YES LEARNING PREFERENCES?NO LEARNING CAPABILITIES PRESENT?YES EMOTIONAL BARRIERS?NO SPECIAL DEVICES?YES :[place] 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 ADVANCE DIRECTIVES HEALTH CARE PROXY?YES NAME OF HCP MELINDA MCPHERSON CONTACT # FOR HCP [phone] DO YOU HAVE A COPY WITH YOU?NO DO YOU HAVE A DNR?YES DO YOU HAVE A COPY WITH YOU?NO LIVING WILL?NO WOULD YOU LIKE MORE INFORMATION?NO POWER OF VALVING MACHINE OPERATOR?NO WOULD YOU LIKE MORE INFORMATION?NO H/O 50 PACK YEARS OF SMOKING CIGS. HOSPITALIZATION/MAJOR DIAGNOSTIC PROCEDURE FOR SURGERIES ABOVE PANCOLITIS 10/2010 NBTE 10/2015 [facility] COPD 05/22 COPD EXACERBATION 10/03-10/07/16 PNEUMONIA 11/12/16 REVIEW OF SYSTEMS FOLLOW-UP ROS: GASTROENTEROLOGY: NEXIUM EFFECTIVE ON REFLUX SYMPTOMS. INTERMITTANT CONSTIPATION. DENIES HEMATACHEZIA . GI/ ENLARGED PROSTATE - HAS DIFF WITH STARTING STREAM . REVIEWED BY: PROVIDER: IKER POP . CONSTITUTIONAL: ANY CHANGE IN YOUR MEDICAL CONDITION? NO . CHILLS NO . FEVER NO . INFECTION: DO YOU HAVE NEW INFECTIONS? NO . DO YOU HAVE HISTORY OF MRSA? NO . MUSCULOSKELETAL: ANY NEW PATTERNS OF PAIN OR NUMBNESS? NO . SYTEMIC LUPUS NO . GASTROENTEROLOGY: ANY NEW CHANGE IN BOWEL CONTROL? NO . BARRETTS ESOPHAGUS YES . CIRRHOSIS NO . HEPATITIS NO . LIVER FAILURE NO . ACID REFLUX YES . UNEXPLAINED WEIGHT LOSS NO . GENITOURINARY: ANY NEW CHANGE IN BLADDER CONTROL? NO . IS THERE A CHANCE YOU COULD BE ? NO . HEMATOLOGY/LYMPH: DO YOU TAKE ANY BLOOD THINNERS? (FOR EXAMPLE- COUMADIN, PLAVIX, AGGRENOX, PLATEL, PRADAXA, OR XARELTO) NO . WHEN WAS YOUR LAST DOSE? DATE: TIME: . LOW PLATELET COUNT NO . SICKLE CELL DISEASE NO . VON WILLIEBRANDS NO . FACTOR V LEIDEN NO . THALLASEMIA NO . ANEMIA NO . EASY BRUISING NO . NEUROLOGY: HAVE YOU FALLEN IN THE PAST 6 MONTHS? NO . ANY NEW EXTREMITY NUMBNESS OR WEAKNESS? NO . HEAD INJURY NO . DEMENTIA NO . CEREBRAL PALSY NO . MULTIPLE SCLEROSIS NO . DIZZINESS NO . HEADACHE NO . STROKES NO . VERTIGO NO . CARDIOLOGY: DO YOU HAVE A PACEMAKER OR DEFIBRILLATOR? YES, DEFIBRILLATOR . ANGINA YES . HEART ATTACK YES, 2005 . HEART SURGERY YES . CONGESTIVE HEART FAILURE/FLUID OVERLOAD YES . CHEST PAIN INTERMITTANT CHEST PAIN ATTRIBUTED TO GAS PRESSURE. TAKES NTG FOFR THIS WITH NOT MUCH BENEFIT . HIGH BLOOD PRESSURE ON MEDICATION(S) . IRREGULAR HEART BEAT YES . RESPIRATORY: HAVE YOU BEEN SICK IN THE PAST WEEK? NO . FEVER NO . FLU LIKE SYMPTOMS? NO . CPAP NO . BYPAP NO . ASTHMA NO . EMPHYSEMA YES, WEARS OXYGEN ALL THE TIME AT 2.5 NC. KODY FOLLOWS CLOSELY. . CHRONIC LUNG DISEASES YES, ADMITTED MULTIPLE TIMES WITH PNUEMONIA . SHORTNESS OF BREATH ON EXERTION YES . DO YOU USE ANY TYPE OF TOBACCO (SMOKE, SMOKELESS, CHEW)? YES . COUGH NO . SNORING NO . INTEGUMENTARY: DO YOU HAVE ANY RASHES OR OPEN SORES? YES - CELLULITIS LOWER EXTREMITIES. . ALLERGIC/IMMUNO: ARE YOU ALLERGIC TO SHELLFISH OR IV DYE? YES, SHELLFISH . ANY NEW ALLERGIES? NO . PSYCHIATRIC: DO YOU HAVE THOUGHTS OF HURTING YOURSELF OR SOMEONE ELSE? NO . ARE YOU ABUSED, NEGLECTED, OR IN AN UNSAFE ENVIRONMENT? NO . ENDOCRINOLOGY: ARE YOU DIABETIC? NO . THYROID DISORDER YES . OTHER: DO YOU NEED ANY PRESCRIPTIONS? NO . IF YES, PLEASE LIST: ____ . ANY NEW PROBLEMS WITH YOUR MEDICATIONS? NO . WHEN DID YOU LAST EAT? ____ . WHEN DID YOU LAST DRINK? ____ . WHAT DID YOU LAST DRINK? ____ . NAME OF PERSON DRIVING YOU HOME? ____ . DO YOU HAVE ANY OTHER QUESTIONS OR CONCERNS NO . VITAL SIGNS WT 184.0 LBS, HT 69 IN, BMI 27.17 INDEX, BP 112/52 MM HG, HR 86 /MIN, RR 22 /MIN, TEMP 96.6 F, OXYGEN SAT % 89% ON 3L, NA INITIALS MP 1120, REVIEWED BY: CSO2 SATURATION RECHECKED AND IS 91% ON 3L NASAL CANULA. EXAMINATION GENERAL EXAMINATION: GENERAL APPEARANCE:NEIGHBOR ACCOMPANIES AND KEEPS NOTES. PSYCHALERT , ORIENTED X 3 , APPROPRIATE MOOD AND AFFECT . HEENT:NORMOCEPHALIC. THICH NECK, NO LYMPHADENOPATHY, NO THYROMEGLY. VERY HARD OF HEARING. LUNGS:DECREASED AIRFLOW IN ALL LOBES. SCATTERED WHEEZES. HAS MINI OXYGEN COMPRESSOR WHICH ALARMS FREQUENTLY. HEART:HEART RATE REGULAR, NO CAROTID BRUITS. HEART TONES DISTANT. MUSCULOSKELETAL:MILD TENDERNESS OVER LOW THORACIC SPINOUS PROCESSES, AND AT C7 PROMINENCE. POINT TENDERNESS OVER LEFT CERVICAL PARASPINOUS MUSCLES.. , TRIGGER POINTS AND TIGHT FIBROUS BANDS IDENTIFIED OVER TRAPEZIUS MUSCLES BILATERALLY.. POINT TENDERNESS OVER LEFT SIJ AND RIGHT TROCANTER. SLOW TO RISE TO STANDING POSITION. WALKER USED FOR BALANCE. GENERALIZED WEAKNESS NOTED IN BILATERAL QUADS. POSTURE STOOPED. GAIT SLOW, ANTALGIC. SKIN:REDNNESS, ERRYTHEMA LEFT LEG WITH DRY OPEN LESION NOTED. NEUROLOGIC EXAM:DECREASED SENSATION IN STOCKING AND GLOVE FASHION NOTED BOTH LOWER LEGS TO MID CALF. DIAGNOSTIC TESTS REVIEWEDXRAY OF THORACIC SPINE COMPLETED 07/06/16 DEMONSTRATES OLD COMPRESSION FRACTURE AT T11 AND ACUTE/SUBACUTE COMPRESSION FRACTURE AT T10. . ASSESSMENTS COMPRESSION FRACTURE OF BODY OF THORACIC VERTEBRA - M48.54XA (PRIMARY) MYALGIA - M79.1 SACROILIITIS - M46.1 TREATMENT COMPRESSION FRACTURE OF BODY OF THORACIC VERTEBRA LRY HIP COMPLETE (AP/LAT)[id number] PETERS 12/07/2016 12:27:57 PM > RIGHT HIP PAIN LRY SPINE LS [id number] NOTES: VOLTAREN GEL TO NECK/ UPPER BACK AREA. I WILL TALK WITH NOEMI REGARDING NEW PAIN AREAS. , FALLS CARE PLAN: 1. RECOMMEND REMOVING ALL THROW RUGS. 2. RECOMMEND NIGHT LIGHTS 3. RECOMMEND WEARING RUBBER SOLED SHOES AND TO NOT GO BAREFOOT. 4.. ADVISED TO CHANGE POSITION SLOWLY FROM SUPINE TO STANDING TO AVOID DIZZINESS. 5. ADVISED TO USE ASSISTIVE DEVICE SUCH CANE OR WALKER 6. USE LIFELINE SERVICES OR KEEP PORTABLE PHONE READILY AVAILABLE. PROCEDURE CODES FA211 ESTABILISHED PATIENT [facility] FACILITY CHARGE G8783 BP SCR PRFRM RCMDD DEFIND SCR INTVL G8730 PAIN ASSESS POS TOOL F/U PLAN DOC 3016F PT SCRND UNHLTHY OH USE 1124F ACP DISCUSS-NO [id number] DOCD 1036F TOBACCO NON-USER 0518F FALL PLAN OF CARE DOCD G8427 DOC MEDS VERIFIED W/PT OR RE G8420 BMI<30 AND >=22 CALC & DOCU 3288F FALL RISK ASSESSMENT DOCD DISPOSITION & COMMUNICATION FOLLOW UP 2 WEEKS (REASON: BACK PAIN) ELECTRONICALLY SIGNED BY MAURICE MCHUGH ON 12/27/2016 AT 09:43 AM EDT DISCLAIMER : THIS IS A VISIT SUMMARY EXTRACTED FROM THE [employer] CHART. IT IS NOT A COPY OF THE [employer] PROGRESS NOTE. MTDD
== END ==
LOC: M PAIN 11:20
PROVIDERS: ATTEND Nurse Practitioner Family
DX: G89.29 Other chronic pain (principal); M48.54XA Collapsed vertebra, not elsewhere classified, thoracic region, initial encounter for fracture; M79.1 Myalgia; M46.1 Sacroiliitis, not elsewhere classified; J44.9 Chronic obstructive pulmonary disease, unspecified; M51.36 Other intervertebral disc degeneration, lumbar region; H91.90 Unspecified hearing loss, unspecified ear; N40.0 Benign prostatic hyperplasia without lower urinary tract symptoms; I25.10 Atherosclerotic heart disease of native coronary artery without angina pectoris; I11.0 Hypertensive heart disease with heart failure; I50.32 Chronic diastolic (congestive) heart failure; F17.210 Nicotine dependence, cigarettes, uncomplicated; I25.5 Ischemic cardiomyopathy; K57.90 Diverticulosis of intestine, part unspecified, without perforation or abscess without bleeding; K22.70 Barrett's esophagus without dysplasia; K21.9 Gastro-esophageal reflux disease without esophagitis; L03.115 Cellulitis of right lower limb; D64.9 Anemia, unspecified; L03.116 Cellulitis of left lower limb; E03.9 Hypothyroidism, unspecified; I27.81 Cor pulmonale (chronic); I25.2 Old myocardial infarction; R91.1 Solitary pulmonary nodule; Z95.810 Presence of automatic (implantable) cardiac defibrillator; Z79.891 Long term (current) use of opiate analgesic; Z79.51 Long term (current) use of inhaled steroids; Z79.82 Long term (current) use of aspirin; Z79.899 Other long term (current) drug therapy; Z91.040 Latex allergy status; Z91.013 Allergy to seafood; Z88.2 Allergy status to sulfonamides; Z88.5 Allergy status to narcotic agent; Z88.8 Allergy status to other drugs, medicaments and biological substances

== ENCOUNTER → 2016-12-11 | Outpatient (CLI) | payer MEDICARE ==
--- NOTE | 2016-12-11 12:20 | REP ---
RIGHT HIP: Two views of the right hip are performed. There is no acute fracture or dislocation. There are mild degenerative changes in the form of mild joint space narrowing, subchondral sclerosis of spurring. There are mild vascular calcifications in the soft tissues. IMPRESSION: Mild degenerative changes. Signed by David Jameson MD 12/11/2016 08:11 P
--- NOTE | 2016-12-11 12:27 | REP ---
LUMBOSACRAL SPINE WITH FLEXION AND EXTENSION: Nine views of lumbosacral spine performed with flexion and extension lateral views obtained as well. COMPARISON: 06/17/2016 There is mild loss of height and compression of the L3 vertebral body with moderate loss of height and compression of the L4 vertebral body, new compared to the prior exam. There is diffuse osteopenia. There is moderate diffuse spurring. There is mild disc space narrowing and subchondral sclerosis at all levels. There is mild reversal of the normal lumbar lordosis. I do not see significant subluxation with flexion or extension. There is curvature of the thoracolumbar spine, convex to the right. The posterior elements appear intact. Vascular calcifications are noted. IMPRESSION: Diffuse degenerative changes with new mild compression fracture of L3 and moderate compression fracture of L4 compared to a prior study of 06/17/2016. Signed by David Jameson MD 12/11/2016 08:11 P
== END ==
LOC: M RAD 11:22
PROVIDERS: ATTEND Nurse Practitioner Family
DX: S32.038A Other fracture of third lumbar vertebra, initial encounter for closed fracture (principal); S32.048D Other fracture of fourth lumbar vertebra, subsequent encounter for fracture with routine healing; M51.36 Other intervertebral disc degeneration, lumbar region; X58.XXXA Exposure to other specified factors, initial encounter; Y92.9 Unspecified place or not applicable; Y99.9 Unspecified external cause status; Y93.9 Activity, unspecified

== ENCOUNTER → 2016-12-24 | Outpatient (CLI) | payer MEDICARE, MEDICAID ==
[~2016-12-24] MED LIST changes: +LEVA1TAB2 PO
--- NOTE | 2017-01-05 00:16 | ECWPNPC ---
PATIENT NAME: FIDLE TORRES : 1945 GENDER: MALE VISIT DATE: 12/24/2016 DISCHARGE DATE: 12/24/16 1044 VISIT LOCKED DATE TIME: PHYSICIAN: IKER PETERS PHYSICIAN PAGER NO: [phone] RESOURCE: IKER PETERS REASON FOR APPOINTMENT 1. BACK HISTORY OF PRESENT ILLNESS HISTORY OF PRESENT ILLNESS: PAIN THE PATIENT DESCRIBES THE PAIN... FALL RISK SCREENING: SCREENING :NO FALLS IN THE PAST YEAR TODAY'S VISIT: NOTES: RATES PAIN TODAY 7/10. PAIN IS RADIATING TO RIGHT HIP AND LEG. NO RECENT FALLSDESCRIBES PAIN CONSTANT, TENDER AND SHOOTING. NOTES HAS DIFFICULTY WOTH PROLONG STANDING OR WALKING. RISING FROM A SEATED POSITION IS DIFFICULT.NOTES PAIN AT KNEES, SHOULDERS AND ELBOWS AND INTERMITTANT SWOLLEN JOINTS AT THESE LOCATIONS. CURRENT MEDICATIONS TAKING SALINE NASAL SPRAY 0.65 % SOLUTION 2 SPRAYS IN EACH NOSTRIL NEEDED NASALLY EVERY 4 HRS NEEDED TAKING LIPITOR 80 MG TABLET 1 TAB ORALLY AT BEDTIME, NOTES: NELSON TAKING NITROGLYCERIN 0.4 MG TABLET SUBLINGUAL 1 TABLET UNDER THE TONGUE AND ALLOW TO DISSOLVE NEEDED SUBLINGUAL DIRECTED TAKING BISOPROLOL FUMARATE 10 MG TABLET 1 TABLET ORALLY ONCE A DAY TAKING ACETAMINOPHEN 650 MG TABLET 1 TABLET NEEDED ORALLY EVERY 4 HRS TAKING SIMETHICONE 80 MG TABLET CHEWABLE 1 TABLET NEEDED ORALLY TWO TIMES A DAY TAKING VOLTAREN 1 % GEL DIRECTED TRANSDERMAL FOUR TIMES DAILY NEEDED TAKING FLOMAX 0.4 MG CAPSULE TAKE 1 CAPSULE BY MOUTH 30 MINUTES AFTER THE SAME MEAL EACH DAY TAKING LEVOTHYROXINE SODIUM 50 MCG TABLET 1 TABLET ON AN EMPTY STOMACH IN THE MORNING ORALLY ONCE A DAY TAKING CALCITONIN (SALMON) 200 UNIT/ACT SOLUTION 1 PUFF NASALLY ONCE A DAY TAKING MAY HAVE - - DIRECTED OXYGEN CONCENTRATOR DAILY DIRECTED, J44.9 TAKING MAY USE - - PORTABLE OXYGEN INHALLATION DX: J44.9 DIRECTED TAKING MAY HAVE - - DIRECTED OCD EVALUATION IF QUALIFIED GIVE POC DX: J44.9 TAKING TUMS 500 MG TABLET CHEWABLE ORALLY TAKING ROLLING WALKER 1 1 4 WHEEL WALKER WITH SEAT DX: J44.9, R26.81. J96.11 DIRECTED TAKING ADVAIR HFA 230-21 MCG/ACT AEROSOL 2 PUFFS INHALATION TWICE A DAY TAKING SPIRIVA HANDIHALER 18 MCG CAPSULE 1 CAPSULE INHALATION ONCE A DAY TAKING PROAIR HFA 108 (90 BASE) MCG/ACT AEROSOL SOLUTION 2 PUFFS NEEDED INHALATION FOUR TIMES DAILY NEEDED TAKING ALBUTEROL SULFATE (2.5 MG/3ML) 0.083% NEBULIZATION SOLUTION 3 ML INHALATION EVERY 4 HRS TAKING ASPIR-81 81 MG TABLET DELAYED RELEASE 1 TABLET ORALLY ONCE A DAY TAKING NEXIUM 40 MG CAPSULE DELAYED RELEASE TAKE 1 TABLET BY MOUTH BEFORE A MEAL TWO TIMES A DAY TAKING SPIRONOLACTONE 50 MG TABLET TAKE ONE TABLET BY MOUTH EVERY DAY TAKING TORSEMIDE 20 MG TABLET 1 TABS ORALLY DAILY TAKING PREDNISONE 20 MG TABLET 1/2 TABLET ORALLY DAILY TAKING RANITIDINE HCL 300 MG TABLET 1 TAB ORALLY DAILY AT BEDTIME TAKING TRAMADOL HCL 50 MG TABLET 1 TABLET NEEDED ORALLY EVERY 6 HOURS NEEDED FOR SEVERE PAIN MDD = 4 NOT-TAKING VOLTAREN 1 % GEL DIRECTED TRANSDERMAL NOT-TAKING ALENDRONATE SODIUM 70 MG TABLET 1 TABLET ORALLY WEEKLY NOT-TAKING ESOMEPRAZOLE MAGNESIUM 40 MG CAPSULE DELAYED RELEASE 1 CAPSULE ORALLY TWICE A DAY MEDICATION LIST REVIEWED AND RECONCILED WITH THE PATIENT PAST MEDICAL HISTORY VEGETATION ON ICD LEAD ON CASEY 10/19--SUSPECTED NBTE, ON WARFARIN X 6 MO PER CARDIOLOGY/ANTECOL; HAD ECHO 05/22, NO MENTION OF THROMBOSIS ON LEAD; WARFARIN WAS DC 06/22 AFTER D/W CARDIOLOGY COPD/EMPHYSEMA CHRONIC LOW BACK PAIN - LUMBAR DDD PER X-RAYS HEARING LOSS BENIGN PROSTATIC HYPERPLASIA 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 BEGAN FOSAMAX 07/[address] 09/2016 ALLERGIES LATEX GLOVES: RASH, HIVES HEAD TO TOE: ALLERGY SHELLFISH: RASH/ITCHING: ALLERGY SULFA (FOR ALLERGY USE ONLY): ALLERGY VICODIN: ANAPHYLAXIS: ALLERGY PERCOCET: HALLUCINATIONS: SIDE EFFECTS NICODERM CQ: RASH: SIDE EFFECTS REVIEW OF SYSTEMS REVIEWED BY: PROVIDER: IKER POP . CONSTITUTIONAL: ANY CHANGE IN YOUR MEDICAL CONDITION? NO . CHILLS NO . FEVER NO . INFECTION: DO YOU HAVE NEW INFECTIONS? NO . DO YOU HAVE HISTORY OF MRSA? NO . MUSCULOSKELETAL: ANY NEW PATTERNS OF PAIN OR NUMBNESS? NO . GASTROENTEROLOGY: ANY NEW CHANGE IN BOWEL CONTROL? NO . BARRETTS ESOPHAGUS YES - INTERMITTANT GERD SYMPTOMS . GENITOURINARY: ANY NEW CHANGE IN BLADDER CONTROL? NO . IS THERE A CHANCE YOU COULD BE ? NO . HEMATOLOGY/LYMPH: DO YOU TAKE ANY BLOOD THINNERS? (FOR EXAMPLE- COUMADIN, PLAVIX, AGGRENOX, PLATEL, PRADAXA, OR XARELTO) NO . WHEN WAS YOUR LAST DOSE? DATE: TIME: . NEUROLOGY: HAVE YOU FALLEN IN THE PAST 6 MONTHS? YES, NOT SINCE THE LAST TIME HERE . ANY NEW EXTREMITY NUMBNESS OR WEAKNESS? NO . CARDIOLOGY: DO YOU HAVE A PACEMAKER OR DEFIBRILLATOR? YES . CHEST PAIN PATIENT DENIES . RESPIRATORY: HAVE YOU BEEN SICK IN THE PAST WEEK? NO . FEVER NO . FLU LIKE SYMPTOMS? NO . COUGH YES - WITH PRODUCTION OF BROWN/YELLOW SPUTUM . INTEGUMENTARY: DO YOU HAVE ANY RASHES OR OPEN SORES? NO . ALLERGIC/IMMUNO: ARE YOU ALLERGIC TO SHELLFISH OR IV DYE? YES, SHELLFISH . ANY NEW ALLERGIES? NO . PSYCHIATRIC: DO YOU HAVE THOUGHTS OF HURTING YOURSELF OR SOMEONE ELSE? NO . ARE YOU ABUSED, NEGLECTED, OR IN AN UNSAFE ENVIRONMENT? NO . ENDOCRINOLOGY: THYROID DISEASE ADMITS - ON REPLACEMENT . ARE YOU DIABETIC? NO . OTHER: DO YOU NEED ANY PRESCRIPTIONS? NO . IF YES, PLEASE LIST: ____ . ANY NEW PROBLEMS WITH YOUR MEDICATIONS? NO . WHEN DID YOU LAST EAT? ____ . WHEN DID YOU LAST DRINK? ____ . WHAT DID YOU LAST DRINK? ____ . NAME OF PERSON DRIVING YOU HOME? ____ . DO YOU HAVE ANY OTHER QUESTIONS OR CONCERNS NO . VITAL SIGNS WT 185 LBS, HT 69 IN, BMI 27.32 INDEX, BP 101/57 MM HG, HR 74 /MIN, RR 18 /MIN, TEMP 97.8 F, OXYGEN SAT % 90 ON 3LIT. EXAMINATION GENERAL EXAMINATION: GENERAL APPEARANCE:NEIGHBOR ACCOMPANIES AND KEEPS NOTES. PSYCHALERT , ORIENTED X 3 , APPROPRIATE MOOD AND AFFECT . HEENT:NORMOCEPHALIC. THICK NECK, NO LYMPHADENOPATHY, NO THYROMEGLY. VERY HARD OF HEARING. LUNGS:DECREASED AIRFLOW IN ALL LOBES. SCATTERED WHEEZES. HAS MINI OXYGEN COMPRESSOR WHICH ALARMS FREQUENTLY. HEART:HEART RATE REGULAR, NO CAROTID BRUITS. HEART TONES DISTANT. MUSCULOSKELETAL: TENDERNESS OVER LOW THORACIC SPINOUS PROCESSES, AND AT C7 PROMINENCE. POINT TENDERNESS OVER LEFT CERVICAL PARASPINOUS MUSCLES.. , TRIGGER POINTS AND TIGHT FIBROUS BANDS IDENTIFIED OVER TRAPEZIUS MUSCLES BILATERALLY.. POINT TENDERNESS OVER RIGHT SIJ AND RIGHT TROCANTER. SLOW TO RISE TO STANDING POSITION. WALKER USED FOR BALANCE. GENERALIZED WEAKNESS NOTED IN BILATERAL QUADS. POSTURE STOOPED. GAIT SLOW, ANTALGIC. JOINTS:TENDERNESS, , SWELLING , LOSS OF ROM AT , LEFT , SHOULDER , BILATERAL, KNEE , BILATERAL, ANKLE . SKIN:REDNNESS, ERRYTHEMA LEFT LEG WITH DRY OPEN LESION NOTED. NEUROLOGIC EXAM:DECREASED SENSATION IN STOCKING AND GLOVE FASHION NOTED BOTH LOWER LEGS TO MID CALF. ASSESSMENTS COMPRESSION FRACTURE OF BODY OF THORACIC VERTEBRA - M48.54XA (PRIMARY) MYALGIA - M79.1 CLOSED COMPRESSION FRACTURE OF FOURTH LUMBAR VERTEBRA, SEQUELA - S32.040S PRIMARY OSTEOARTHRITIS INVOLVING MULTIPLE JOINTS - M15.0 TREATMENT COMPRESSION FRACTURE OF BODY OF THORACIC VERTEBRA REFILL VOLTAREN GEL, 1 %, DIRECTED, TRANSDERMAL, FOUR TIMES DAILY NEEDED, 30 DAY(S), 100 GRAM, REFILLS 2 NOTES: USE VOLTAREN GEL DIRECTED. PT IS NOT A CANDIDATE FOR ORAL NSAIDS DUE TO HX OF BARRETTS ESOPHAGUS AND SIGNIFICANT CARDIAC HISTORY. REFERRAL TO:[facility] REASON:COMPRESSION FX AT T1-, L3 AND L4 MYALGIA TRIGGER POINT 3 + IKER MCMANUS 12/24/2016 10:35:13 AM > LOW THORACIC AND LUMBAR REGION PREVENTIVE MEDICINE DISCUSSED PRE PROCEDURE CARE AND TPI WITH UNDERSTANDING EXPRESSED. PROCEDURE CODES FA211 ESTABILISHED PATIENT [facility] FACILITY CHARGE G8730 PAIN ASSESS POS TOOL F/U PLAN DOC G8427 DOC MEDS VERIFIED W/PT OR RE DISPOSITION & COMMUNICATION FOLLOW UP AFTER INJECTION (REASON: CHECK AUTH FOR TPI) ELECTRONICALLY SIGNED BY MAURICE MCHUGH ON 01/04/2017 AT 01:20 PM EDT DISCLAIMER : THIS IS A VISIT SUMMARY EXTRACTED FROM THE [employer] CHART. IT IS NOT A COPY OF THE [employer] PROGRESS NOTE. SHAMA
== END ==
LOC: M PAIN 10:15
PROVIDERS: ATTEND Nurse Practitioner Family
DX: G89.29 Other chronic pain (principal); M48.54XA Collapsed vertebra, not elsewhere classified, thoracic region, initial encounter for fracture; M79.1 Myalgia; S32.040S Wedge compression fracture of fourth lumbar vertebra, sequela; M15.0 Primary generalized (osteo)arthritis; J44.9 Chronic obstructive pulmonary disease, unspecified; N40.0 Benign prostatic hyperplasia without lower urinary tract symptoms; I25.10 Atherosclerotic heart disease of native coronary artery without angina pectoris; I11.0 Hypertensive heart disease with heart failure; I50.32 Chronic diastolic (congestive) heart failure; D64.9 Anemia, unspecified; I27.81 Cor pulmonale (chronic); E03.9 Hypothyroidism, unspecified; R91.1 Solitary pulmonary nodule; K21.9 Gastro-esophageal reflux disease without esophagitis; H91.90 Unspecified hearing loss, unspecified ear; K22.70 Barrett's esophagus without dysplasia; M51.36 Other intervertebral disc degeneration, lumbar region; I25.5 Ischemic cardiomyopathy; Z91.040 Latex allergy status; Z91.013 Allergy to seafood; Z88.2 Allergy status to sulfonamides; Z88.5 Allergy status to narcotic agent; Z88.8 Allergy status to other drugs, medicaments and biological substances; Z79.52 Long term (current) use of systemic steroids; Z79.891 Long term (current) use of opiate analgesic; Z79.899 Other long term (current) drug therapy; Z95.810 Presence of automatic (implantable) cardiac defibrillator

== ENCOUNTER → 2017-01-08 | Outpatient (REF) | payer MEDICARE, MEDICAID ==
[2017-01-08 13:02] LABS: MEAN CORPUSCULAR HEMOGLOBIN 29.5 pg (27.0-33.0); MEAN CORPUSCULAR HGB CONC 32.6 g/dl (32.0-36.5); MEAN CORPUSCULAR VOLUME 90.4 fl (80.0-96.0); RED CELL DISTRIBUTION WIDTH 14.6 % (11.5-14.5); WHITE BLOOD COUNT 12.7 K/mm3 (4.0-10.0)
[2017-01-08 13:23] LABS: ALBUMIN 3.2 GM/DL (3.2-5.2); ALBUMIN/GLOBULIN RATIO 1.03 (1.00-1.93); BILIRUBIN,TOTAL 0.3 MG/DL (0.2-1.0); CREATININE FOR GFR 1.28 MG/DL (0.70-1.30); FREE T4 0.87 NG/DL (0.76-1.46); GLOMERULAR FILTRATION RATE 58.6 (>42); POTASSIUM SERUM 4.5 MEQ/L (3.5-5.1); TOTAL PROTEIN 6.3 GM/DL (6.4-8.2)
== END ==
LOC: M SFHCADAM 10:08
PROVIDERS: ATTEND Physician Assistant
DX: J43.8 Other emphysema (principal); I27.81 Cor pulmonale (chronic); M35.3 Polymyalgia rheumatica; E03.9 Hypothyroidism, unspecified; E55.9 Vitamin D deficiency, unspecified; S32.040S Wedge compression fracture of fourth lumbar vertebra, sequela; X58.XXXS Exposure to other specified factors, sequela; Y92.9 Unspecified place or not applicable; Y99.9 Unspecified external cause status
CPT/HCPCS: 80053; 82306; 84439; 84443; 85027; 85652; G0463

== ENCOUNTER → 2017-01-10 | Outpatient (CLI) | payer MEDICARE | LOC: M PAIN 14:15 | PROVIDERS: ATTEND Anesthesiology | DX: M79.1 Myalgia (principal); Z53.8 Procedure and treatment not carried out for other reasons ==

== ENCOUNTER → 2017-01-11 | Outpatient (CLI) | payer MEDICARE, MEDICAID ==
[~2017-01-11] MED LIST changes: +BUPIVACAINE HCL 0.25% 10 ML VIAL As Ordered ONE; +BUPIVACAINE HCL 0.25% 30 ML VIAL As Ordered ONE; +TRIAMCINOLONE ACETONIDE SUSP 40 MG/ML VIAL (J3301) As Ordered ONE
--- NOTE | 2017-01-11 23:16 | ECWPNPC ---
PATIENT NAME: FIDEL TORRES : 1945 GENDER: MALE VISIT DATE: 01/11/2017 DISCHARGE DATE: 01/11/17 1106 VISIT LOCKED DATE TIME: PHYSICIAN: BRAULIO HOBSON PHYSICIAN PAGER NO: [phone] RESOURCE: BRAULIO HOBSON REASON FOR APPOINTMENT 1. TPI HISTORY OF PRESENT ILLNESS HISTORY OF PRESENT ILLNESS: PAIN THE PATIENT DESCRIBES THE PAIN... FALL RISK SCREENING: SCREENING :NO FALLS IN THE PAST YEAR CURRENT MEDICATIONS TAKING SALINE NASAL SPRAY 0.65 % SOLUTION 2 SPRAYS IN EACH NOSTRIL NEEDED NASALLY EVERY 4 HRS NEEDED, NOTES: 01/11/17 06 TAKING LIPITOR 80 MG TABLET 1 TAB ORALLY AT BEDTIME, NOTES: 01/10/172199 TAKING NITROGLYCERIN 0.4 MG TABLET SUBLINGUAL 1 TABLET UNDER THE TONGUE AND ALLOW TO DISSOLVE NEEDED SUBLINGUAL DIRECTED, NOTES: 2 WEEKS AGO TAKING BISOPROLOL FUMARATE 10 MG TABLET 1 TABLET ORALLY ONCE A DAY, NOTES: 01/10/17 08 TAKING ACETAMINOPHEN 650 MG TABLET 1 TABLET NEEDED ORALLY EVERY 4 HRS, NOTES: 01/11/17599 TAKING FLOMAX 0.4 MG CAPSULE TAKE 1 CAPSULE BY MOUTH 30 MINUTES AFTER THE SAME MEAL EACH DAY , NOTES: 01/10/172199 TAKING LEVOTHYROXINE SODIUM 50 MCG TABLET 1 TABLET ON AN EMPTY STOMACH IN THE MORNING ORALLY ONCE A DAY, NOTES: 01/10/17 07 TAKING CALCITONIN (SALMON) 200 UNIT/ACT SOLUTION 1 PUFF NASALLY ONCE A DAY, NOTES: 01/10/17799 TAKING MAY HAVE - - DIRECTED OXYGEN CONCENTRATOR DAILY DIRECTED, J44.9 TAKING MAY USE - - PORTABLE OXYGEN INHALLATION DX: J44.9 DIRECTED TAKING MAY HAVE - - DIRECTED OCD EVALUATION IF QUALIFIED GIVE POC DX: J44.9 TAKING TUMS 500 MG TABLET CHEWABLE ORALLY , NOTES: > 1 MONTH TAKING ROLLING WALKER 1 1 4 WHEEL WALKER WITH SEAT DX: J44.9, R26.81. J96.11 DIRECTED TAKING SPIRIVA HANDIHALER 18 MCG CAPSULE 1 CAPSULE INHALATION ONCE A DAY, NOTES: 01/11/17599 TAKING PROAIR HFA 108 (90 BASE) MCG/ACT AEROSOL SOLUTION 2 PUFFS NEEDED INHALATION FOUR TIMES DAILY NEEDED, NOTES: 01/11/17799 TAKING ALBUTEROL SULFATE (2.5 MG/3ML) 0.083% NEBULIZATION SOLUTION 3 ML INHALATION EVERY 4 HRS, NOTES: 01/10/172099 TAKING ASPIR-81 81 MG TABLET DELAYED RELEASE 1 TABLET ORALLY ONCE A DAY, NOTES: 01/10/17 08 TAKING NEXIUM 40 MG CAPSULE DELAYED RELEASE TAKE 1 TABLET BY MOUTH BEFORE A MEAL TWO TIMES A DAY , NOTES: 01/10/172099 TAKING SPIRONOLACTONE 50 MG TABLET TAKE ONE TABLET BY MOUTH EVERY DAY , NOTES: 01/10/17799 TAKING TORSEMIDE 20 MG TABLET 1 TABS ORALLY DAILY, NOTES: 01/10/17799 TAKING RANITIDINE HCL 300 MG TABLET 1 TAB ORALLY DAILY AT BEDTIME, NOTES: 01/10/17799 TAKING VOLTAREN 1 % GEL DIRECTED TRANSDERMAL FOUR TIMES DAILY NEEDED, NOTES: 01/09/17 TAKING ADVAIR HFA 230-21 MCG/ACT AEROSOL 2 PUFFS INHALATION TWICE A DAY, NOTES: 01/11/17 07 TAKING PHAZYME MAXIMUM STRENGTH 250 MG CAPSULE 1 CAPSULE AFTER MEALS AND AT BEDTIME NEEDED ORALLY TWICE A DAY, NOTES: 01/10/17 190 TAKING ALENDRONATE SODIUM 70 MG TABLET 1 TABLET ORALLY WEEKLY, NOTES: HASN'T STARTED TAKING WHEELCHAIR - MISCELLANEOUS DIRECTED CHRONIC LOW BACK PAINRELATED TO DCOP FRACTURES IN PATIENT WITH OXYGEN DEPT COPD AND OLIVAS S32.0405, J43.8, M54.5, Z99.81 TAKING TRAMADOL HCL 50 MG TABLET 1 TABLET NEEDED ORALLY EVERY 6 HOURS NEEDED FOR SEVERE PAIN MDD = 4, NOTES: 01/11/17799 TAKING PREDNISONE 10 MG TABLET 1 TABLET ORALLY ONCE A DAY, NOTES: 01/10/17799 NOT-TAKING SIMETHICONE 80 MG TABLET CHEWABLE 1 TABLET NEEDED ORALLY TWO TIMES A DAY NOT-TAKING VOLTAREN 1 % GEL DIRECTED TRANSDERMAL NOT-TAKING ESOMEPRAZOLE MAGNESIUM 40 MG CAPSULE DELAYED RELEASE 1 CAPSULE ORALLY TWICE A DAY MEDICATION LIST REVIEWED AND RECONCILED WITH THE PATIENT PAST MEDICAL HISTORY VEGETATION ON ICD LEAD ON CASEY 10/19--SUSPECTED NBTE, ON WARFARIN X 6 MO PER CARDIOLOGY/ANTECOL; HAD ECHO 05/22, NO MENTION OF THROMBOSIS ON LEAD; WARFARIN WAS DC 06/22 AFTER D/W CARDIOLOGY COPD/EMPHYSEMA CHRONIC LOW BACK PAIN - LUMBAR DDD PER X-RAYS HEARING LOSS BENIGN PROSTATIC HYPERPLASIA 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 BEGAN FOSAMAX 07/[address] 09/2016 ALLERGIES LATEX GLOVES: RASH, HIVES HEAD TO TOE: ALLERGY SHELLFISH: RASH/ITCHING: ALLERGY SULFA (FOR ALLERGY USE ONLY): ALLERGY VICODIN: ANAPHYLAXIS: ALLERGY PERCOCET: HALLUCINATIONS: SIDE EFFECTS NICODERM CQ: RASH: SIDE EFFECTS SOCIAL HISTORY GENERAL: TOBACCO USE ARE YOU A:CURRENT SMOKER HOW MANY CIGARETTES A DAY DO YOU SMOKE?11-20 ARE YOU INTERESTED IN QUITTING?THINKING ABOUT QUITTING PATIENT COUNSELED ON THE DANGERS OF TOBACCO USE AND URGED TO QUIT:12/07/2016 COUNSELED THE PATIENT ON SMOKING CESSATION, EDUCATION [id number]/04/2017 ALCOHOL SCREENING DID YOU HAVE A DRINK CONTAINING ALCOHOL IN THE PAST YEAR?NO POINTS0 INTERPRETATIONNEGATIVE CAFFEINE CAFFEINE USE?YES 1-2 CUPS DAILY 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 ADVANCE DIRECTIVES HEALTH CARE PROXY?YES NAME OF HCP MELINDA MCPHERSON CONTACT # FOR HCP [phone] DO YOU HAVE A COPY WITH YOU?NO POWER OF GAS AND OIL CHECKER?NO DO YOU HAVE A DNR?YES DO YOU HAVE A COPY WITH YOU?NO LIVING WILL?NO WOULD YOU LIKE MORE INFORMATION?NO WOULD YOU LIKE MORE INFORMATION?NO H/O 50 PACK YEARS OF SMOKING CIGS. REVIEW OF SYSTEMS REVIEWED BY: PROVIDER: BRAULIO HOBSON MD . CONSTITUTIONAL: ANY CHANGE IN YOUR MEDICAL CONDITION? NO . CHILLS NO . FEVER NO . INFECTION: DO YOU HAVE NEW INFECTIONS? NO . DO YOU HAVE HISTORY OF MRSA? NO . MUSCULOSKELETAL: ANY NEW PATTERNS OF PAIN OR NUMBNESS? NO . GASTROENTEROLOGY: ANY NEW CHANGE IN BOWEL CONTROL? NO . GENITOURINARY: ANY NEW CHANGE IN BLADDER CONTROL? NO . IS THERE A CHANCE YOU COULD BE ? NO . HEMATOLOGY/LYMPH: DO YOU TAKE ANY BLOOD THINNERS? (FOR EXAMPLE- COUMADIN, PLAVIX, AGGRENOX, PLATEL, PRADAXA, OR XARELTO) NO . WHEN WAS YOUR LAST DOSE? DATE: TIME: . NEUROLOGY: HAVE YOU FALLEN IN THE PAST 6 MONTHS? YES PT REPORTS A FALL OUT OF A CHAIR, DOZED OFF AND FELL TO FLOOR. DENIES INJURY, OTHER THAN MAKING HIS BACK HURT MORE. NO ED OR MD VISITS AFTER FALL. . ANY NEW EXTREMITY NUMBNESS OR WEAKNESS? NO . CARDIOLOGY: DO YOU HAVE A PACEMAKER OR DEFIBRILLATOR? YES DEFIBRILLATOR . RESPIRATORY: HAVE YOU BEEN SICK IN THE PAST WEEK? NO . FEVER NO . FLU LIKE SYMPTOMS? NO . COUGH NO . INTEGUMENTARY: DO YOU HAVE ANY RASHES OR OPEN SORES? YES OPEN AREA ON TOP OF HIS HEAD, MULTIPLE BRUISES ON ARMS, &QUOT;BRUISES EASILY&QUOT; . ALLERGIC/IMMUNO: ARE YOU ALLERGIC TO SHELLFISH OR IV DYE? NO . ANY NEW ALLERGIES? NO . PSYCHIATRIC: DO YOU HAVE THOUGHTS OF HURTING YOURSELF OR SOMEONE ELSE? NO . ARE YOU ABUSED, NEGLECTED, OR IN AN UNSAFE ENVIRONMENT? NO . ENDOCRINOLOGY: ARE YOU DIABETIC? NO . OTHER: DO YOU NEED ANY PRESCRIPTIONS? NO . IF YES, PLEASE LIST: ____ . ANY NEW PROBLEMS WITH YOUR MEDICATIONS? NO . WHEN DID YOU LAST EAT? ____01/10/17 2200 . WHEN DID YOU LAST DRINK? ____01/11/17 0800 . WHAT DID YOU LAST DRINK? BLACK COFFEE____ . NAME OF PERSON DRIVING YOU HOME? ____TRACEY . DO YOU HAVE ANY OTHER QUESTIONS OR CONCERNS NO . VITAL SIGNS WT 186.6 LBS, HT 69 IN, BMI 27.55 INDEX, BP 105/67 MM HG, HR 94 /MIN, RR 20 /MIN, TEMP 98.7 F, OXYGEN SAT % 94% ON 3 L O2, SAFE IN ENV? (Y/N) YES, NA INITIALS UT 09:39, REVIEWED BY: ASSESSMENTS MYALGIA - M79.1 (PRIMARY) PROCEDURES PN TRIGGER POINT INJECTION WITH STEROIDS PRE PROCEDURE DIAGNOSIS 1. MYALGIA 2. PAIN AT BILATERAL LOW BACK AREA POST PROCEDURE DIAGNOSIS 1. MYALGIA 2. PAIN AT BILATERAL LOW BACK AREA PROCEDURE TRIGGER POINT INJECTION AT BILATERAL LOW BACK AREA SURGEON DR. BRAULIO HOBSON CUSTOMER PRICING MANAGER NONE ANESTHESIA LOCAL PRE PROCEDURE NOTE THE PATIENT HAS A HISTORY OF CHRONIC PAIN AT THE LEFT AND RIGHT LOW BACK AREA. I EVALUATE THE PATIENT AND REVIEWED THE CHART. THERE IS EVIDENCE OF BANDS OF TISSUE WITH RESTRICTION OF MOVEMENT AND PRESENCE OF TRIGGER POINT AT THE AFFECTED AREA. I WENT OVER THE RISKS, ALTERNATIVES, AND BENEFITS ASSOCIATED WITH THIS PROCEDURE. THE PATIENT WOULD LIKE TO PROCEED AND GIVE CONSENT TO PERFORMED THE PROCEDURE. THE PATIENT DENIES UNEXPLAINABLE WEIGHT LOSS, FEVER, CHILLS, OR NEW CHANGES IN URINARY OR BOWEL CONTROL DESCRIPTION OF PROCEDURE THE PATIENT WAS BROUGHT TO THE PROCEDURE ROOM AND PLACED IN THE SITTING POSITION. THE AREA WAS CLEANED WITH ALCOHOL. THE PROCEDURE WAS DONE USING ASEPTIC STERILE TECHNIQUE. I CHECKED LATERALITY AND THE LEVEL WHERE THE PROCEDURE WAS GOING TO BE PERFORMED WITH THE PATIENT AND THE SUPPORTING STAFF AT THE MOMENT OF THE TIME OUT IN THE PROCEDURE ROOM. USING A 25-GAUGE NEEDLE, TRIGGER POINTS WERE INJECTED AT THE LEFT AND RIGHT LOW BACK AREA WITH A TOTAL OF 40 ML OF BUPIVACAINE 0.25% AND KENALOG 40 MG. THERE WAS NO EVIDENCE OF BLOOD, PARESTHESIA OR CEREBROSPINAL FLUID DURING THE PROCEDURE. THE PATIENT WAS SENT TO THE RECOVERY ROOM. THE PATIENT WAS MOVING THE EXTREMITIES AND DOING WELL. THERE WAS NO COMPLICATION DURING THE PROCEDURE POST PROCEDURE NOTE THE PATIENT WILL BE SEEN IN A FOLLOW UP IN THE NEXT FEW WEEKS. INSTRUCTIONS WERE GIVEN, QUESTIONS WERE ANSWERED, AND THE PATIENT EXPRESSED UNDERSTANDING AND AGREES WITH THE PLAN. I ANIAYH MANE DOCUMENTED THE ABOVE INFORMATION ACTING A ENTRY LEVEL SALES REPRESENTATIVE FOR DR. HOBSON. I HAVE REVIEWED THE ABOVE DOCUMENT WRITTEN BY ANIYAH RICO AND I VERIFY THAT IT IS ACCURATE. PROCEDURE CODES 28316 INJ TRIGGER POINT / MUSCL DISPOSITION & COMMUNICATION FOLLOW UP 3 WEEKS ELECTRONICALLY SIGNED BY BRAULIO HOBSON MD ON 01/11/2017 AT 06:48 PM EDT DISCLAIMER : THIS IS A VISIT SUMMARY EXTRACTED FROM THE [employer] CHART. IT IS NOT A COPY OF THE [employer] PROGRESS NOTE. MTDD
== END ==
LOC: M PAIN 09:30
PROVIDERS: ATTEND Anesthesiology
DX: G89.29 Other chronic pain (principal); M79.1 Myalgia; F17.210 Nicotine dependence, cigarettes, uncomplicated; J44.9 Chronic obstructive pulmonary disease, unspecified; M54.5 Low back pain; N40.0 Benign prostatic hyperplasia without lower urinary tract symptoms; I25.10 Atherosclerotic heart disease of native coronary artery without angina pectoris; I25.5 Ischemic cardiomyopathy; I11.0 Hypertensive heart disease with heart failure; I50.32 Chronic diastolic (congestive) heart failure; I27.2 Other secondary pulmonary hypertension; K57.30 Diverticulosis of large intestine without perforation or abscess without bleeding; K22.70 Barrett's esophagus without dysplasia; K21.9 Gastro-esophageal reflux disease without esophagitis; I27.81 Cor pulmonale (chronic); E03.9 Hypothyroidism, unspecified; R91.1 Solitary pulmonary nodule; Z79.82 Long term (current) use of aspirin; Z79.891 Long term (current) use of opiate analgesic; Z79.52 Long term (current) use of systemic steroids; Z91.040 Latex allergy status; Z91.013 Allergy to seafood; Z88.2 Allergy status to sulfonamides; Z88.5 Allergy status to narcotic agent; Z88.8 Allergy status to other drugs, medicaments and biological substances
CPT/HCPCS: 20552; J3301

== ENCOUNTER → 2017-02-01 | Outpatient (CLI) | payer MEDICARE ==
[~2017-02-01] MED LIST changes: -BUPIVACAINE HCL 0.25% 10 ML VIAL As Ordered ONE; -BUPIVACAINE HCL 0.25% 30 ML VIAL As Ordered ONE; -TRIAMCINOLONE ACETONIDE SUSP 40 MG/ML VIAL (J3301) As Ordered ONE
--- NOTE | 2017-03-04 00:14 | ECWPNPC ---
PATIENT NAME: FIDEL TORRES : 1945 GENDER: MALE VISIT DATE: 02/01/2017 DISCHARGE DATE: 02/01/17 1105 VISIT LOCKED DATE TIME: PHYSICIAN: IKER PETERS PHYSICIAN PAGER NO: [phone] RESOURCE: IKER PETERS REASON FOR APPOINTMENT 1. POST TPI HISTORY OF PRESENT ILLNESS HISTORY OF PRESENT ILLNESS: PAIN THE PATIENT DESCRIBES THE PAIN... FALL RISK SCREENING: SCREENING :NO FALLS IN THE PAST YEAR TODAY'S VISIT: NOTES: S/P TRIGGER POINT INJECTIONS TO LOW BACK COMPLETED ON01/11/17. NOTES PAIN IN LOW BACK IS SIG IMPROVED. IS BETTER ABLE TO BREATHE AND GET ABOUT. NOTES PAIN IS STILL ACROSS THE RIGHT HIP AND LEG. . CURRENT MEDICATIONS UNKNOWN SALINE NASAL SPRAY 0.65 % SOLUTION 2 SPRAYS IN EACH NOSTRIL NEEDED NASALLY EVERY 4 HRS NEEDED UNKNOWN LIPITOR 80 MG TABLET 1 TAB ORALLY AT BEDTIME UNKNOWN NITROGLYCERIN 0.4 MG TABLET SUBLINGUAL 1 TABLET UNDER THE TONGUE AND ALLOW TO DISSOLVE NEEDED SUBLINGUAL DIRECTED UNKNOWN BISOPROLOL FUMARATE 10 MG TABLET 1 TABLET ORALLY ONCE A DAY UNKNOWN ACETAMINOPHEN 650 MG TABLET 1 TABLET NEEDED ORALLY EVERY 4 HRS UNKNOWN CALCITONIN (SALMON) 200 UNIT/ACT SOLUTION 1 PUFF NASALLY ONCE A DAY UNKNOWN MAY HAVE - - DIRECTED OXYGEN CONCENTRATOR DAILY DIRECTED, J44.9 UNKNOWN MAY USE - - PORTABLE OXYGEN INHALLATION DX: J44.9 DIRECTED UNKNOWN MAY HAVE - - DIRECTED OCD EVALUATION IF QUALIFIED GIVE POC DX: J44.9 UNKNOWN TUMS 500 MG TABLET CHEWABLE ORALLY UNKNOWN ROLLING WALKER 1 1 4 WHEEL WALKER WITH SEAT DX: J44.9, R26.81. J96.11 DIRECTED UNKNOWN PROAIR HFA 108 (90 BASE) MCG/ACT AEROSOL SOLUTION 2 PUFFS NEEDED INHALATION FOUR TIMES DAILY NEEDED UNKNOWN ALBUTEROL SULFATE (2.5 MG/3ML) 0.083% NEBULIZATION SOLUTION 3 ML INHALATION EVERY 4 HRS UNKNOWN ASPIR-81 81 MG TABLET DELAYED RELEASE 1 TABLET ORALLY ONCE A DAY UNKNOWN NEXIUM 40 MG CAPSULE DELAYED RELEASE TAKE 1 TABLET BY MOUTH BEFORE A MEAL TWO TIMES A DAY UNKNOWN RANITIDINE HCL 300 MG TABLET 1 TAB ORALLY DAILY AT BEDTIME UNKNOWN VOLTAREN 1 % GEL DIRECTED TRANSDERMAL FOUR TIMES DAILY NEEDED UNKNOWN ADVAIR HFA 230-21 MCG/ACT AEROSOL 2 PUFFS INHALATION TWICE A DAY UNKNOWN PHAZYME MAXIMUM STRENGTH 250 MG CAPSULE 1 CAPSULE AFTER MEALS AND AT BEDTIME NEEDED ORALLY TWICE A DAY UNKNOWN ALENDRONATE SODIUM 70 MG TABLET 1 TABLET ORALLY WEEKLY UNKNOWN WHEELCHAIR - MISCELLANEOUS DIRECTED CHRONIC LOW BACK PAINRELATED TO DCOP FRACTURES IN PATIENT WITH OXYGEN DEPT COPD AND OLIVAS S32.0405, J43.8, M54.5, Z99.81 UNKNOWN TRAMADOL HCL 50 MG TABLET 1 TABLET NEEDED ORALLY EVERY 6 HOURS NEEDED FOR SEVERE PAIN MDD = 4 UNKNOWN PREDNISONE 10 MG TABLET 1 TABLET ORALLY ONCE A DAY UNKNOWN LEVOTHYROXINE SODIUM 75 MCG TABLET 1 TABLET ON AN EMPTY STOMACH IN THE MORNING ORALLY ONCE A DAY UNKNOWN FLOMAX 0.4 MG CAPSULE TAKE 1 CAPSULE BY MOUTH 30 MINUTES AFTER THE SAME MEAL EACH DAY UNKNOWN SPIRIVA HANDIHALER 18 MCG CAPSULE 1 CAPSULE INHALATION ONCE A DAY UNKNOWN SPIRONOLACTONE 50 MG TABLET TAKE ONE TABLET BY MOUTH EVERY DAY UNKNOWN TORSEMIDE 20 MG TABLET TAKE 3 TABLETS BY MOUTH TWO TIMES A DAY UNKNOWN SIMETHICONE 80 MG TABLET CHEWABLE 1 TABLET NEEDED ORALLY TWO TIMES A DAY UNKNOWN VOLTAREN 1 % GEL DIRECTED TRANSDERMAL UNKNOWN ESOMEPRAZOLE MAGNESIUM 40 MG CAPSULE DELAYED RELEASE 1 CAPSULE ORALLY TWICE A DAY MEDICATION LIST REVIEWED AND RECONCILED WITH THE PATIENT PAST MEDICAL HISTORY VEGETATION ON ICD LEAD ON CASEY 10/19--SUSPECTED NBTE, ON WARFARIN X 6 MO PER CARDIOLOGY/ANTECOL; HAD ECHO 05/22, NO MENTION OF THROMBOSIS ON LEAD; WARFARIN WAS DC 06/22 AFTER D/W CARDIOLOGY COPD/EMPHYSEMA CHRONIC LOW BACK PAIN - LUMBAR DDD PER X-RAYS HEARING LOSS BENIGN PROSTATIC HYPERPLASIA 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 BEGAN FOSAMAX 07/[address] 09/2016 ALLERGIES LATEX GLOVES: RASH, HIVES HEAD TO TOE: ALLERGY SHELLFISH: RASH/ITCHING: ALLERGY SULFA (FOR ALLERGY USE ONLY): ALLERGY VICODIN: ANAPHYLAXIS: ALLERGY PERCOCET: HALLUCINATIONS: SIDE EFFECTS NICODERM CQ: RASH: SIDE EFFECTS SURGICAL HISTORY ICD REPLACEMENT 2009,- ICD PLACEMENT 2004 RIGHT INGUINAL HERNIA REPAIR KIDNEY STONE REMOVAL 1979 COLONOSCOPY, DIVERTICULOSIS - REINDL 12/14 EGD, GASTRITIS, HH, BARRETTS ESOPHAGUS - REPEAT 3-5YRS - REINDL 12/14, 03/18 SOCIAL HISTORY GENERAL: TOBACCO USE ARE YOU A:CURRENT SMOKER HOW MANY CIGARETTES A DAY DO YOU SMOKE?- ARE YOU INTERESTED IN QUITTING?THINKING ABOUT QUITTING PATIENT COUNSELED ON THE DANGERS OF TOBACCO USE AND URGED TO QUIT:12/07/2016 COUNSELED THE PATIENT ON SMOKING CESSATION, EDUCATION [id number]/04/2017 ALCOHOL SCREENING DID YOU HAVE A DRINK CONTAINING ALCOHOL IN THE PAST YEAR?NO POINTS0 INTERPRETATIONNEGATIVE CAFFEINE CAFFEINE USE?YES 1-2 CUPS DAILY OCCUPATION: RETIRED. RESTORATIONISM [id number] NONE LANGUAGE LANGUAGES SPOKEN:[place] LEARNING BARRIERS / SPECIAL NEEDS BARRIERS TO LEARNING?NO HEARING IMPAIRED?YES VISION IMPAIRED?YES COGNITIVELY IMPAIRED?NO :CORRECTIVE LENSES READINESS TO LEARN?YES LEARNING PREFERENCES?NO LEARNING CAPABILITIES PRESENT?YES EMOTIONAL BARRIERS?NO SPECIAL DEVICES?YES :FRAN COTTER MULTIMEDIA ARTIST NEEDED?NO PAIN CLINIC PFS, CLERGY, PUBLIC HEALTH REFERRALS PFS REFERRAL NEEDED?NO CLERGY REFERRAL NEEDED?NO PUBLIC HEALTH REFERRAL NEEDED?NO WAS THE PROVIDER NOTIFIED OF ANY PERTINENT INFO?NO HAS THE PATIENT BEEN EDUCATED REGARDING HIS/HER PLAN OF CARE?YES HAS THE PATIENT BEEN EDUCATED REGARDING PAIN, THE RISK FOR PAIN, THE IMPORTANCE OF EFFECTIVE PAIN MANAGEMENT, AND THE PAIN ASSESSMENT PROCESS?YES PATIENT: ____. ADVANCE DIRECTIVES HEALTH CARE PROXY?YES NAME OF HCP MELINDA MCPHERSON CONTACT # FOR HCP [phone] DO YOU HAVE A COPY WITH YOU?NO POWER OF CURB SETTER HELPER?NO DO YOU HAVE A DNR?YES DO YOU HAVE A COPY WITH YOU?NO LIVING WILL?NO WOULD YOU LIKE MORE INFORMATION?NO WOULD YOU LIKE MORE INFORMATION?NO H/O 50 PACK YEARS OF SMOKING CIGS. HOSPITALIZATION/MAJOR DIAGNOSTIC PROCEDURE FOR SURGERIES ABOVE PANCOLITIS 10/2010 NBTE 10/2015 [facility] COPD 05/22 COPD EXACERBATION 10/03-10/07/16 PNEUMONIA 11/12/16 REVIEW OF SYSTEMS REVIEWED BY: PROVIDER: IKER POP . CONSTITUTIONAL: ANY CHANGE IN YOUR MEDICAL CONDITION? NO . CHILLS NO . FEVER NO . INFECTION: DO YOU HAVE NEW INFECTIONS? NO . DO YOU HAVE HISTORY OF MRSA? NO . MUSCULOSKELETAL: ANY NEW PATTERNS OF PAIN OR NUMBNESS? NO . GASTROENTEROLOGY: ANY NEW CHANGE IN BOWEL CONTROL? NO . GENITOURINARY: ANY NEW CHANGE IN BLADDER CONTROL? NO . IS THERE A CHANCE YOU COULD BE ? NO . HEMATOLOGY/LYMPH: DO YOU TAKE ANY BLOOD THINNERS? (FOR EXAMPLE- COUMADIN, PLAVIX, AGGRENOX, PLATEL, PRADAXA, OR XARELTO) NO . WHEN WAS YOUR LAST DOSE? DATE: TIME: . NEUROLOGY: HAVE YOU FALLEN IN THE PAST 6 MONTHS? NO . ANY NEW EXTREMITY NUMBNESS OR WEAKNESS? NO . CARDIOLOGY: DO YOU HAVE A PACEMAKER OR DEFIBRILLATOR? YES, ICD . RESPIRATORY: HAVE YOU BEEN SICK IN THE PAST WEEK? NO . FEVER NO . FLU LIKE SYMPTOMS? NO . COUGH NO . INTEGUMENTARY: DO YOU HAVE ANY RASHES OR OPEN SORES? YES . ALLERGIC/IMMUNO: ARE YOU ALLERGIC TO SHELLFISH OR IV DYE? YES, SHELLFISH . ANY NEW ALLERGIES? NO . PSYCHIATRIC: DO YOU HAVE THOUGHTS OF HURTING YOURSELF OR SOMEONE ELSE? NO . ARE YOU ABUSED, NEGLECTED, OR IN AN UNSAFE ENVIRONMENT? NO . ENDOCRINOLOGY: ARE YOU DIABETIC? NO . OTHER: DO YOU NEED ANY PRESCRIPTIONS? NO . IF YES, PLEASE LIST: ____ . ANY NEW PROBLEMS WITH YOUR MEDICATIONS? NO . WHEN DID YOU LAST EAT? ____ . WHEN DID YOU LAST DRINK? ____ . WHAT DID YOU LAST DRINK? ____ . NAME OF PERSON DRIVING YOU HOME? ____ . DO YOU HAVE ANY OTHER QUESTIONS OR CONCERNS YES, GOT LOTS OF RELIEF FROM TRIGGER POINTS . VITAL SIGNS WT 180 LBS, HT 69 IN, BMI 26.58 [place] [address] MM HG, HR 78 /MIN, RR 18 /MIN, TEMP 96.4 F, OXYGEN SAT % 91 ON 26/06 LIT, REVIEWED BY: NL. EXAMINATION GENERAL EXAMINATION: GENERAL APPEARANCE:NEIGHBOR ACCOMPANIES AND KEEPS NOTES. PSYCHALERT , ORIENTED X 3 , APPROPRIATE MOOD AND AFFECT . HEENT: VERY HARD OF HEARING. LUNGS:DECREASED AIRFLOW IN ALL LOBES. SCATTERED WHEEZES. HAS MINI OXYGEN COMPRESSOR WHICH ALARMS FREQUENTLY. HEART:HEART RATE REGULAR, HEART TONES DISTANT. MUSCULOSKELETAL:TENDERNESS OVER LOW THORACIC SPINOUS PROCESSES. POINT TENDERNESS OVER RIGHT SIJ AND RIGHT TROCANTER. SLOW TO RISE TO STANDING POSITION. WALKER USED FOR BALANCE. GENERALIZED WEAKNESS NOTED IN BILATERAL QUADS. POSTURE STOOPED. GAIT SLOW, ANTALGIC. JOINTS:TENDERNESS, , SWELLING , BILATERAL, KNEES. NEUROLOGIC EXAM:DECREASED SENSATION IN STOCKING AND GLOVE FASHION NOTED BOTH LOWER LEGS TO MID CALF. ASSESSMENTS LUMBAR FACET ARTHROPATHY - M12.88 (PRIMARY) COMPRESSION FRACTURE OF BODY OF THORACIC VERTEBRA - M48.54XA MYALGIA - M79.1 PRIMARY OSTEOARTHRITIS INVOLVING MULTIPLE JOINTS - M15.0 TREATMENT LUMBAR FACET ARTHROPATHY INJECTION FACET JOINT/NERVE LORIE/IKER GODINEZ 02/01/2017 10:52:48 AM > RIGHT L4-5, L5-S1 NOTES: CONTINUE MEDS PER PRIMARY AND PULMONARY DOC.,FACET JOINT INJECTION MATERIAL WAS PRINTED. PROCEDURE CODES FA211 ESTABILISHED PATIENT [facility] CHARGE G8730 PAIN ASSESS POS TOOL F/U PLAN DOC G8427 DOC MEDS VERIFIED W/PT OR RE DISPOSITION & COMMUNICATION FOLLOW UP AFTER INJECTION (REASON: CHECK AUTH FOR RIGHT L4-5, L5-S1 THERAPEUTIC FACET BLOCK) ELECTRONICALLY SIGNED BY MAURICE MCHUGH ON 03/03/2017 AT 09:00 PM EDT DISCLAIMER : THIS IS A VISIT SUMMARY EXTRACTED FROM THE [facility] CHART. IT IS NOT A COPY OF THE [facility] PROGRESS NOTE. SHAMA
== END ==
LOC: M PAIN 10:15
PROVIDERS: ATTEND Nurse Practitioner Family
DX: G89.29 Other chronic pain (principal); M12.88 Other specific arthropathies, not elsewhere classified, other specified site; M48.54XS Collapsed vertebra, not elsewhere classified, thoracic region, sequela of fracture; M79.1 Myalgia; I25.10 Atherosclerotic heart disease of native coronary artery without angina pectoris; I27.2 Other secondary pulmonary hypertension; I27.81 Cor pulmonale (chronic); J96.11 Chronic respiratory failure with hypoxia; E78.2 Mixed hyperlipidemia; I12.9 Hypertensive chronic kidney disease with stage 1 through stage 4 chronic kidney disease, or unspecified chronic kidney disease; N18.3 Chronic kidney disease, stage 3 (moderate); M35.3 Polymyalgia rheumatica; J43.9 Emphysema, unspecified; K22.719 Barrett's esophagus with dysplasia, unspecified; D63.8 Anemia in other chronic diseases classified elsewhere; E03.9 Hypothyroidism, unspecified; F17.210 Nicotine dependence, cigarettes, uncomplicated; Z91.040 Latex allergy status; Z91.013 Allergy to seafood; Z88.2 Allergy status to sulfonamides; Z88.5 Allergy status to narcotic agent; Z88.8 Allergy status to other drugs, medicaments and biological substances; Z79.82 Long term (current) use of aspirin; Z79.52 Long term (current) use of systemic steroids; Z79.899 Other long term (current) drug therapy; Z99.81 Dependence on supplemental oxygen; Z95.810 Presence of automatic (implantable) cardiac defibrillator

== ENCOUNTER 2017-02-04 07:05 | Inpatient (IN) | payer MEDICARE, MEDICAID ==
[~2017-02-04] VITALS: Ht 172.7 cm; Wt 92.7 kg
[~2017-02-04 07:05] MED LIST changes: -ACE65ERTAB PO; -ALEN70TA39 PO; -CEFT500T3 PO; -DICL1GEL3 TD; -LEVA1TAB2 PO; -LEVO50TA45 PO; -LEVO75TA34 PO
[2017-02-04] MEDS ORDERED: DICL1GEL3 TD (07:17)
[2017-02-04] MEDS ORDERED: ALEN70TA39 PO (07:17)
[2017-02-04] MEDS ORDERED: methylPREDNISolone INJ 125 MG/2 ML VIAL (J2930) IV ONE (07:30)
[2017-02-04 07:50] LABS: BASO % 0.2 % (0.0-1.0); EOS % 0.2 % (0.0-3.0); IMMATURE GRANULOCYTE % 0.6 % (0-0); LYMPH # 0.9 10^3/uL (1.5-4.5); LYMPH % 4.6 % (24.0-44.0); MEAN CORPUSCULAR HEMOGLOBIN 28.9 pg (27.0-33.0); MEAN CORPUSCULAR HGB CONC 32.5 g/dl (32.0-36.5); MEAN CORPUSCULAR VOLUME 88.9 fl (80.0-96.0); MONO # 0.9 10^3/uL (0.0-0.8); MONO % 4.9 % (0.0-5.0); NEUTROPHILS # 16.8 10^3/uL (1.8-7.7); NEUTROPHILS % 89.5 % (36.0-66.0); PLATELET COUNT, AUTOMATED 230 10^3/uL (150-450); RED CELL DISTRIBUTION WIDTH 15.9 % (11.5-14.5); WHITE BLOOD COUNT 18.7 10^3/uL (4.0-10.0)
[2017-02-04 07:53] LABS: ADD MANUAL DIFFER NO; DIFF SLIDE NUMBER 102
--- NOTE | 2017-02-04 07:53 | REP ---
Portable chest, 07:27 a.m., single AP view, the patient semi upright: Comparison is the PA and lateral chest dated 11/09/2016. There is a large mass-like density in the right lung as an interval change. Left lung is clear. Cardiac size is normal. There is a triple lead pacemaker / AICD, unchanged. Impression: New large density in the right lung. Signed by David Pantoja MD 02/04/2017 07:45 A
[2017-02-04 07:57] LABS: ABG HCO3 29.7 MEQ/L (22.0-26.0); ABG PARTIAL PRESSURE CO2 39.9 mmHg (35.0-45.0); ABG PARTIAL PRESSURE O2 52.6 mmHg (75.0-100.0); ABG STANDARD HCO3 29.7 MEQ/L (22.0-26.0); ABG TOTAL CO2 30.9 MEQ/L (23.0-31.0)
[2017-02-04] MEDS ORDERED: AZITHROMYCIN INJ 500 MG, VIAL MATE ADAPTER 1 EACH in D5W 250 ML IV ONE (08:00)
[2017-02-04] MEDS ORDERED: cefTRIAXone SOD 2 GM in D5W 50 ML IV ONE (08:00)
[2017-02-04 08:09] LABS: ANION GAP 8 MEQ/L (8-16); BLOOD UREA NITROGEN 34 MG/DL (7-18); CALCIUM LEVEL 8.1 MG/DL (8.8-10.2); CARBON DIOXIDE LEVEL 32 MEQ/L (21-32); CHLORIDE LEVEL 95 MEQ/L (98-107); CREATININE FOR GFR 1.36 MG/DL (0.70-1.30); GLOMERULAR FILTRATION RATE 54.7 (>42); GLUCOSE, FASTING 79 MG/DL (83-110); POTASSIUM SERUM 3.6 MEQ/L (3.5-5.1); SODIUM LEVEL 135 MEQ/L (136-145)
[2017-02-04 08:16] LABS: THYROXINE (T4) 10.8 UG/DL (4.5-12.0)
[2017-02-04] MEDS ORDERED: IPRATROPIUM 0.5MG/ALBUTEROL 2.5MG INH SOL UD 3ML (DUONEB)(J7620) As Ordered ONE (08:34)
[2017-02-04] MEDS: IPRATROPIUM 0.5MG/ALBUTEROL 2.5MG INH SOL UD 3ML (DUONEB)(J7620) NEB SCH ×3 (08:37→09:05)
[2017-02-04] MEDS ORDERED: PRED20TA PO (08:43)
[2017-02-04] MEDS ORDERED: LEVO75TA34 PO (10:29)
[2017-02-04] MEDS ORDERED: ACE65ERTAB PO (10:31)
[2017-02-04] MEDS ORDERED: SODIUM CHLORIDE NASAL 0.65% SPRAY BTL (OCEAN) PRN (10:45)
[2017-02-04] MEDS ORDERED: traMADol 50 MG TAB PO PRN (10:45)
[2017-02-04] MEDS ORDERED: NITROGLYCERIN 0.4 MG SUBL TABLET SL PRN (10:45)
[2017-02-04] MEDS ORDERED: CALCIUM CARBONATE 500 MG CHEW U/D PO PRN (10:45)
[2017-02-04] MEDS ORDERED: ACETAMINOPHEN 650MG ER TAB (TYLENOL ARTHRITIS) PO PRN (10:45)
[2017-02-04] MEDS ORDERED: SIMETHICONE 80 MG CHEW TAB PO PRN (10:45)
--- NOTE | 2017-02-04 11:24 | HPE ---
DATE OF ADMISSION: 02/04/2017 Admission history and physical was generated through office [employer], a copy has been printed to be placed on the patient's chart.
[2017-02-04 11:30] VITALS: BP 100/59
--- NOTE | 2017-02-04 11:42 | REP ---
CT chest without contrast: History: Abnormal chest x-ray. Comparison chest radiograph from today demonstrates a large infiltrate on the right. Comparison is also made with chest CT studies, the most remote of which is dated September 22, 2015, and the most recent of which is dated November 09, 2016. CT findings: There are extensive areas of peribronchovascular consolidation in the right upper lobe, right middle lobe, and right lower lobe today consistent with pneumonia. These are new compared to prior CT studies. There is some bibasilar subsegmental discoid atelectasis. No pleural effusion is seen on either side. No mediastinal or hilar adenopathy is appreciated. In addition however, the previously identified right upper lobe nodule has grown in the interval since the September, prior chest x-ray from 5 mm to 9.5 mm in greatest diameter. This must be considered suspicious for possible primary lung malignancy. No other pulmonary nodule is seen. A multilead pacemaker is noted in the right heart. There are epicardial pacemaker leads which appear to be present as well. Mitral annular calcification is visible. Visualized upper abdominal structures show a very small sliding-type hiatal hernia and a left lobe hepatic cyst. Impression: 1. Extensive pneumonia right lung all three lobes. 2. Progressive noncalcified suspicious pulmonary nodule in the right upper lobe currently measuring 9.5 mm. This has grown in the interval since the September 2016 study. Malignancy cannot be excluded. Signed by Jeff Blanco MD 02/04/2017 03:05 P
[2017-02-04 12:22] LABS: ALBUMIN 3.3 GM/DL (3.2-5.2); ALKALINE PHOSPHATASE 108 U/L (45-117); ALT/SGPT 20 U/L (12-78); AST/SGOT 18 U/L (15-37); BILIRUBIN,TOTAL 0.4 MG/DL (0.2-1.0); TOTAL PROTEIN 6.3 GM/DL (6.4-8.2)
[2017-02-04] MEDS: DOXYCYCLINE HYCLATE 100 MG in D5W MINI-BAG PLUS 100 ML IV SCH (12:49)
[2017-02-04] MEDS: TORSEMIDE 20 MG TAB PO SCH (17:42)
[2017-02-04] MEDS: ADVAIR HFA 230/21MCG INHALER INH SCH (19:50)
[2017-02-04] MEDS: FAMOTIDINE 20 MG TAB PO SCH (20:00)
[2017-02-04] MEDS: methylPREDNISolone INJ 125 MG/2 ML VIAL (J2930) IV SCH (20:00)
[2017-02-04] MEDS: PANTOPRAZOLE 40MG TAB (PROTONIX) PO SCH (20:01)
[2017-02-04] MEDS: ATORVASTATIN 20 MG TAB PO SCH (20:01)
[2017-02-04 22:00] VITALS: BP 109/66
[2017-02-05] MEDS: DOXYCYCLINE HYCLATE 100 MG in D5W MINI-BAG PLUS 100 ML IV SCH ×3 (00:10→23:20)
[2017-02-05] MEDS: LEVOTHYROXINE 75MCG TABLET (0.075MG) PO SCH (05:39)
[2017-02-05 06:00] VITALS: BP 108/53
[2017-02-05 06:18] LABS: BASO % 0.1 % (0.0-1.0); IMMATURE GRANULOCYTE % 0.8 % (0-0); LYMPH # 0.4 10^3/uL (1.5-4.5); LYMPH % 2.2 % (24.0-44.0); MEAN CORPUSCULAR HEMOGLOBIN 29.1 pg (27.0-33.0); MEAN CORPUSCULAR HGB CONC 32.2 g/dl (32.0-36.5); MEAN CORPUSCULAR VOLUME 90.3 fl (80.0-96.0); MONO % 4.9 % (0.0-5.0); NEUTROPHILS # 18.6 10^3/uL (1.8-7.7); PLATELET COUNT, AUTOMATED 207 10^3/uL (150-450); RED CELL DISTRIBUTION WIDTH 15.9 % (11.5-14.5); WHITE BLOOD COUNT 20.3 10^3/uL (4.0-10.0)
[2017-02-05 06:34] LABS: ANION GAP 3 MEQ/L (8-16); BLOOD UREA NITROGEN 31 MG/DL (7-18); CALCIUM LEVEL 7.6 MG/DL (8.8-10.2); CARBON DIOXIDE LEVEL 35 MEQ/L (21-32); CHLORIDE LEVEL 97 MEQ/L (98-107); CREATININE FOR GFR 1.17 MG/DL (0.70-1.30); GLOMERULAR FILTRATION RATE > 60.0 (>42); GLUCOSE, FASTING 140 MG/DL (83-110); POTASSIUM SERUM 4.3 MEQ/L (3.5-5.1); SODIUM LEVEL 135 MEQ/L (136-145)
[2017-02-05] MEDS: ADVAIR HFA 230/21MCG INHALER INH SCH ×2 (07:12→19:16)
[2017-02-05 08:35] VITALS: BP 97/59
--- NOTE | 2017-02-05 09:13 | ECGEPIP ---
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
[2017-02-05] MEDS: methylPREDNISolone INJ 125 MG/2 ML VIAL (J2930) IV SCH ×2 (10:11→20:26)
[2017-02-05] MEDS: PANTOPRAZOLE 40MG TAB (PROTONIX) PO SCH ×2 (10:12→20:26)
[2017-02-05] MEDS: cefTRIAXone SOD 2 GM in D5W 50 ML IV SCH (10:12)
[2017-02-05] MEDS: TAMSULOSIN 0.4 MG CAP PO SCH (10:12)
[2017-02-05] MEDS: ASPIRIN 81 MG ENTERIC TAB PO SCH (10:12)
[2017-02-05 10:25] VITALS: BP 116/64
[2017-02-05] MEDS: BISOPROLOL FUMARATE 10 MG TAB PO SCH (11:35)
[2017-02-05] MEDS: TORSEMIDE 20 MG TAB PO SCH ×2 (11:35→17:20)
[2017-02-05] MEDS: SPIRONOLACTONE 50 MG TAB PO SCH (11:36)
--- NOTE | 2017-02-05 11:54 | IPNPDOC ---
Subjective Date Seen The patient was seen on 02/05/17. Subjective Chief Complaint/HPI The patient is a 71-year-old male admitted with a reason for visit of Cap ( Community Acquired Pneumonia). Events since last encounter Pt states he is feeling better. Still SOB but states breathing is better today. Denies CP, Abd pain. Constitutional: Denies: Chills, Fever Pulmonary: Reports: Dyspnea Cardiovascular: Denies: Chest Pain Gastrointestinal: Denies: Abdominal Pain Objective Physical Examination General Exam: Positive: Alert, No Acute Distress Neck Exam: Positive: Supple Chest Exam: Positive: Rhonchi, Wheezing, Diminished Heart Exam: Positive: Rate Normal, Regular Rhythm Abdomen Exam: Positive: Normal bowel sounds, Soft, Negative: Tenderness Extremity Exam: Positive: Edema Assessment /Plan Problems (1) Community acquired pneumonia Status: Acute Problem Specific Plan: Monitor Clinically, Repeat Labs Problem Text: 02/05 - On IV Ceftriaxone and Doxy. WBC up some to 20.3. Pt is on Solumedrol. Afebrile. (2) ANIL (acute kidney injury) Status: Acute Problem Specific Plan: Monitor Clinically, Repeat Labs Problem Text: 02/05 - Creatinine is down to 1.17 (was 1.36 yesterday). (3) Edema Problem Specific Plan: Monitor Clinically, Repeat Labs Problem Text: 02/05 - On Torsemide and Spironolactone. BMP yesterday 469. (4) Nonbacterial thrombotic endocarditis Status: Chronic Problem Specific Plan: Monitor Clinically Problem Text: Pt is off warfarin. (5) COPD (chronic obstructive pulmonary disease) Status: Chronic Problem Specific Plan: Monitor Clinically Problem Text: On Advair. On Solumedrol. (6) CAD (coronary artery disease) Status: Chronic Plan/VTE VTE Prophylaxis Ordered?: Yes (TEDs and SCDs ordered. Lovenox.) VS, I&O, 24H, Fishbone Vital Signs/I&O Vital Signs Date Time Temp Pulse Resp B/P (MAP) Pulse Ox O2 Delivery O2 Flow Rate FiO2 02/05/17 10:25 80 116/64 (81) 02/05/17 06:00 97.8 24 94 Nasal Cannula 3.0 I&O- Last 24 Hours up to 6 AM 02/06/17 06:00 Intake Total 240 ml Output Total 200 ml Balance 40 ml Laboratory Data 24H LABS Laboratory Tests 2 02/05/17 05:55: Immature Granulocyte % (Auto) 0.8H, White Blood Count 20.3H, Red Blood Count 3.82L, Hemoglobin 11.1#L, Hematocrit 34.5L, Mean Corpuscular Volume 90.3, Mean Corpuscular Hemoglobin 29.1, Mean Corpuscular Hemoglobin Concent 32.2, Red Cell Distribution Width 15.9H, Platelet Count 207, Neutrophils (%) (Auto) 92.0H, Lymphocytes (%) (Auto) 2.2L, Monocytes (%) (Auto) 4.9, Eosinophils (%) (Auto) 0.0, Basophils (%) (Auto) 0.1, Neutrophils # (Auto) 18.6H, Lymphocytes # (Auto) 0.4L, Monocytes # (Auto) 1.0H, Eosinophils # (Auto) 0.0, Basophils # (Auto) 0.0 , Immature Granulocyte # (Auto) 0.2H, Nucleated Red Blood Cells % (auto) 0.0, Anion Gap 3L, Glomerular Filtration Rate > 60.0, Blood Urea Nitrogen 31H, Creatinine 1.17, Sodium Level 135L, Potassium Level 4.3, Chloride Level 97L, Carbon Dioxide Level 35H, Calcium Level 7.6L CBC/BMP Laboratory Tests 02/05/17 05:55 Red Blood Count 3.82 L, Mean Corpuscular Volume 90.3, Mean Corpuscular Hemoglobin 29.1, Mean Corpuscular Hemoglobin Concent 32.2, Red Cell Distribution Width 15.9 H, Neutrophils (%) (Auto) 92.0 H, Lymphocytes (%) (Auto ) 2.2 L, Monocytes (%) (Auto) 4.9, Eosinophils (%) (Auto) 0.0, Basophils (%) ( Auto) 0.1, Neutrophils # (Auto) 18.6 H, Lymphocytes # (Auto) 0.4 L, Monocytes # (Auto) 1.0 H, Eosinophils # (Auto) 0.0, Basophils # (Auto) 0.0, Calcium Level 7.6 L Microbiology Microbiology 02/04/17 Blood Culture - Preliminary, Resulted No growth after 24 hours . All specim... 02/04/17 Blood Culture - Preliminary, Resulted No growth after 24 hours . All specim... 02/04/17 Gram Stain - Final, Resulted 02/04/17 Sputum Culture, Resulted Pending Watson Schwartz Feb 05, 2017 11:54
[2017-02-05] MEDS: ENOXAPARIN 40 MG/0.4 ML SYRINGE (J1650) SC SCH (12:34)
[2017-02-05 14:20] VITALS: BP 100/58
[2017-02-05] MEDS: FAMOTIDINE 20 MG TAB PO SCH (20:26)
[2017-02-05] MEDS: ATORVASTATIN 20 MG TAB PO SCH (20:26)
[2017-02-05] MEDS ORDERED: IPRATROPIUM 0.5MG/ALBUTEROL 2.5MG INH SOL UD 3ML (DUONEB)(J7620) NEB PRN (20:30)
[2017-02-05 22:00] VITALS: BP 118/64
[2017-02-06] MEDS: IPRATROPIUM 0.5MG/ALBUTEROL 2.5MG INH SOL UD 3ML (DUONEB)(J7620) NEB SCH ×7 (00:55→23:18)
[2017-02-06] MEDS: LEVOTHYROXINE 75MCG TABLET (0.075MG) PO SCH (05:39)
[2017-02-06 06:00] VITALS: BP 120/63
[2017-02-06 06:12] LABS: BASO % 0.1 % (0.0-1.0); IMMATURE GRANULOCYTE % 1.6 % (0-0); LYMPH # 0.3 10^3/uL (1.5-4.5); LYMPH % 1.9 % (24.0-44.0); MEAN CORPUSCULAR HEMOGLOBIN 29.2 pg (27.0-33.0); MEAN CORPUSCULAR HGB CONC 32.6 g/dl (32.0-36.5); MEAN CORPUSCULAR VOLUME 89.7 fl (80.0-96.0); MONO # 0.7 10^3/uL (0.0-0.8); MONO % 4.6 % (0.0-5.0); NEUTROPHILS # 13.4 10^3/uL (1.8-7.7); NEUTROPHILS % 91.8 % (36.0-66.0); PLATELET COUNT, AUTOMATED 218 10^3/uL (150-450); RED CELL DISTRIBUTION WIDTH 16.2 % (11.5-14.5); WHITE BLOOD COUNT 14.6 10^3/uL (4.0-10.0)
[2017-02-06 06:29] LABS: ANION GAP 7 MEQ/L (8-16); BLOOD UREA NITROGEN 29 MG/DL (7-18); CALCIUM LEVEL 6.9 MG/DL (8.8-10.2); CARBON DIOXIDE LEVEL 29 MEQ/L (21-32); CHLORIDE LEVEL 101 MEQ/L (98-107); CREATININE FOR GFR 1.02 MG/DL (0.70-1.30); GLOMERULAR FILTRATION RATE > 60.0 (>42); GLUCOSE, FASTING 160 MG/DL (83-110); POTASSIUM SERUM 3.8 MEQ/L (3.5-5.1); SODIUM LEVEL 137 MEQ/L (136-145)
[2017-02-06] MEDS: ADVAIR HFA 230/21MCG INHALER INH SCH ×2 (07:38→19:08)
[2017-02-06] MEDS ORDERED: INFLUENZA VIRUS VACCINE HIGH DOSE 0.5 ML SYRINGE (90662) IM ONE (09:00)
[2017-02-06] MEDS: cefTRIAXone SOD 2 GM in D5W 50 ML IV SCH (09:12)
[2017-02-06] MEDS: ENOXAPARIN 40 MG/0.4 ML SYRINGE (J1650) SC SCH (09:14)
[2017-02-06] MEDS: SPIRONOLACTONE 50 MG TAB PO SCH (09:14)
[2017-02-06] MEDS: TORSEMIDE 20 MG TAB PO SCH ×2 (09:14→17:44)
[2017-02-06] MEDS: BISOPROLOL FUMARATE 10 MG TAB PO SCH (09:14)
[2017-02-06] MEDS: PANTOPRAZOLE 40MG TAB (PROTONIX) PO SCH ×2 (09:14→21:10)
[2017-02-06] MEDS: TAMSULOSIN 0.4 MG CAP PO SCH (09:14)
[2017-02-06] MEDS: ASPIRIN 81 MG ENTERIC TAB PO SCH (09:14)
[2017-02-06] MEDS: methylPREDNISolone INJ 125 MG/2 ML VIAL (J2930) IV SCH ×2 (09:15→21:09)
--- NOTE | 2017-02-06 09:23 | IPNPDOC ---
Subjective Date Seen The patient was seen on 02/06/17. Subjective Chief Complaint/HPI The patient is a 71-year-old male admitted with a reason for visit of Cap ( Community Acquired Pneumonia). Events since last encounter Pt still SOB but he feels he is slowly improving. Denies CP, Abd pain. Constitutional: Denies: Chills, Fever Pulmonary: Reports: Dyspnea Cardiovascular: Denies: Chest Pain Gastrointestinal: Denies: Abdominal Pain Objective Physical Examination General Exam: Positive: Alert, No Acute Distress Neck Exam: Positive: Supple Chest Exam: Positive: Rhonchi, Wheezing, Diminished Heart Exam: Positive: Rate Normal, Regular Rhythm Abdomen Exam: Positive: Normal bowel sounds, Soft, Negative: Tenderness Extremity Exam: Positive: Edema Assessment /Plan Problems (1) Community acquired pneumonia Status: Acute Problem Specific Plan: Monitor Clinically, Repeat Labs Problem Text: 02/06 - Sputum cx grew ecoli. On IV Ceftriaxone and Doxy. (JFW: so will d/c doxy) WBC down to 14.6 Pt is on Solumedrol. Afebrile. 02/05 - On IV Ceftriaxone and Doxy. WBC up some to 20.3. Pt is on Solumedrol. Afebrile. (2) ANIL (acute kidney injury) Status: Acute Problem Specific Plan: Monitor Clinically, Repeat Labs Problem Text: 02/06 - Creatinine is down to 1.02 (was 1.17yesterday). 02/05 - Creatinine is down to 1.17 (was 1.36 yesterday). (3) Edema Problem Specific Plan: Monitor Clinically, Repeat Labs Problem Text: On Torsemide and Spironolactone. BMP in the ER was 469. (4) Nonbacterial thrombotic endocarditis Status: Chronic Problem Specific Plan: Monitor Clinically Problem Text: Pt is off warfarin. (5) COPD (chronic obstructive pulmonary disease) Status: Chronic Problem Specific Plan: Monitor Clinically Problem Text: On Advair. On Solumedrol. (6) CAD (coronary artery disease) Status: Chronic Plan/VTE VTE Prophylaxis Ordered?: Yes (TEDs and SCDs ordered. Lovenox.) VS, I&O, 24H, Fishbone Vital Signs/I&O Vital Signs Date Time Temp Pulse Resp B/P (MAP) Pulse Ox O2 Delivery O2 Flow Rate FiO2 02/06/17 06:00 97.9 58 24 120/63 (82) 92 Nasal Cannula 3.0 I&O- Last 24 Hours up to 6 AM 02/07/17 06:00 Intake Total 480 ml Balance 480 ml Laboratory Data 24H LABS Laboratory Tests 2 02/06/17 05:31: Immature Granulocyte % (Auto) 1.6H, White Blood Count 14.6H, Red Blood Count 3.80L, Hemoglobin 11.1L, Hematocrit 34.1L, Mean Corpuscular Volume 89.7, Mean Corpuscular Hemoglobin 29.2, Mean Corpuscular Hemoglobin Concent 32.6, Red Cell Distribution Width 16.2H, Platelet Count 218, Neutrophils (%) (Auto) 91.8H, Lymphocytes (%) (Auto) 1.9L, Monocytes (%) (Auto) 4.6, Eosinophils (%) (Auto) 0.0, Basophils (%) (Auto) 0.1, Neutrophils # (Auto) 13.4H, Lymphocytes # (Auto) 0.3L, Monocytes # (Auto) 0.7, Eosinophils # (Auto) 0.0, Basophils # (Auto) 0.0, Immature Granulocyte # (Auto) 0.2H, Nucleated Red Blood Cells % (auto) 0.0, Anion Gap 7L, Glomerular Filtration Rate > 60.0, Blood Urea Nitrogen 29H, Creatinine 1.02, Sodium Level 137, Potassium Level 3.8, Chloride Level 101, Carbon Dioxide Level 29, Calcium Level 6.9L CBC/BMP Laboratory Tests 02/06/17 05:31 Red Blood Count 3.80 L, Mean Corpuscular Volume 89.7, Mean Corpuscular Hemoglobin 29.2, Mean Corpuscular Hemoglobin Concent 32.6, Red Cell Distribution Width 16.2 H, Neutrophils (%) (Auto) 91.8 H, Lymphocytes (%) (Auto ) 1.9 L, Monocytes (%) (Auto) 4.6, Eosinophils (%) (Auto) 0.0, Basophils (%) ( Auto) 0.1, Neutrophils # (Auto) 13.4 H, Lymphocytes # (Auto) 0.3 L, Monocytes # (Auto) 0.7, Eosinophils # (Auto) 0.0, Basophils # (Auto) 0.0, Calcium Level 6.9 L Microbiology Microbiology 02/04/17 Blood Culture - Preliminary, Resulted No Growth after 48 hours. All Specime... 02/04/17 Blood Culture - Preliminary, Resulted No Growth after 48 hours. All Specime... 02/04/17 Gram Stain - Final, Complete 02/04/17 Sputum Culture - Final, Complete Escherichia Coli Watson Schwartz Feb 06, 2017 09:23 Moe Archer MD Feb 06, 2017 13:18
[2017-02-06 14:00] VITALS: BP 126/71
[2017-02-06] MEDS: DOXYCYCLINE HYCLATE 100 MG in D5W MINI-BAG PLUS 100 ML IV SCH (14:14)
[2017-02-06] MEDS: ATORVASTATIN 20 MG TAB PO SCH (21:09)
[2017-02-06] MEDS: FAMOTIDINE 20 MG TAB PO SCH (21:10)
[2017-02-06 22:00] VITALS: BP 121/64
[2017-02-07] MEDS: DOXYCYCLINE HYCLATE 100 MG in D5W MINI-BAG PLUS 100 ML IV SCH (00:38)
[2017-02-07] MEDS: IPRATROPIUM 0.5MG/ALBUTEROL 2.5MG INH SOL UD 3ML (DUONEB)(J7620) NEB SCH ×3 (03:10→11:12)
[2017-02-07] MEDS: LEVOTHYROXINE 75MCG TABLET (0.075MG) PO SCH (05:55)
[2017-02-07 06:00] VITALS: BP 105/66
[2017-02-07] MEDS: ADVAIR HFA 230/21MCG INHALER INH SCH (06:25)
[2017-02-07 06:28] LABS: BASO % 0.1 % (0.0-1.0); IMMATURE GRANULOCYTE % 2.1 % (0-0); LYMPH # 0.3 10^3/uL (1.5-4.5); LYMPH % 2.1 % (24.0-44.0); MEAN CORPUSCULAR HEMOGLOBIN 28.9 pg (27.0-33.0); MEAN CORPUSCULAR HGB CONC 31.9 g/dl (32.0-36.5); MEAN CORPUSCULAR VOLUME 90.6 fl (80.0-96.0); MONO # 0.7 10^3/uL (0.0-0.8); MONO % 4.8 % (0.0-5.0); NEUTROPHILS # 13.6 10^3/uL (1.8-7.7); NEUTROPHILS % 90.9 % (36.0-66.0); PLATELET COUNT, AUTOMATED 238 10^3/uL (150-450); RED CELL DISTRIBUTION WIDTH 16.4 % (11.5-14.5); WHITE BLOOD COUNT 14.9 10^3/uL (4.0-10.0)
[2017-02-07 06:34] LABS: ANION GAP 9 MEQ/L (8-16); BLOOD UREA NITROGEN 29 MG/DL (7-18); CALCIUM LEVEL 7.4 MG/DL (8.8-10.2); CARBON DIOXIDE LEVEL 29 MEQ/L (21-32); CHLORIDE LEVEL 99 MEQ/L (98-107); GLOMERULAR FILTRATION RATE > 60.0 (>42); GLUCOSE, FASTING 149 MG/DL (83-110); POTASSIUM SERUM 3.6 MEQ/L (3.5-5.1); SODIUM LEVEL 137 MEQ/L (136-145)
[2017-02-07 08:00] VITALS: BP 105/66
[2017-02-07] MEDS ORDERED: PRED20TA PO (08:50)
[2017-02-07] MEDS ORDERED: CEFT500T3 PO (08:50)
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
[2017-02-07] MEDS: methylPREDNISolone INJ 125 MG/2 ML VIAL (J2930) IV SCH (09:23)
[2017-02-07] MEDS: ASPIRIN 81 MG ENTERIC TAB PO SCH (09:23)
[2017-02-07] MEDS: SPIRONOLACTONE 50 MG TAB PO SCH (09:23)
[2017-02-07] MEDS: TAMSULOSIN 0.4 MG CAP PO SCH (09:23)
[2017-02-07] MEDS: PANTOPRAZOLE 40MG TAB (PROTONIX) PO SCH (09:23)
[2017-02-07] MEDS: ENOXAPARIN 40 MG/0.4 ML SYRINGE (J1650) SC SCH (09:24)
[2017-02-07] MEDS: TORSEMIDE 20 MG TAB PO SCH (09:24)
[2017-02-07 09:27] VITALS: BP 116/62
[2017-02-07] MEDS: BISOPROLOL FUMARATE 10 MG TAB PO SCH (09:27)
[2017-02-07] MEDS: cefTRIAXone SOD 2 GM in D5W 50 ML IV SCH (09:52)
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
== END 2017-02-07 12:33 | disposition home or self-care (01) | DRG 190 ==
LOC: M ED 07:05 → M ED INP 10:35 → M MSPAV 11:18
PROVIDERS: ADMIT Family Medicine; ATTEND Family Medicine
DX: J44.0 Chronic obstructive pulmonary disease with (acute) lower respiratory infection (principal); J18.9 Pneumonia, unspecified organism; N17.9 Acute kidney failure, unspecified; I25.10 Atherosclerotic heart disease of native coronary artery without angina pectoris; B96.20 Unspecified Escherichia coli [E. coli] as the cause of diseases classified elsewhere; Z79.52 Long term (current) use of systemic steroids; Z79.82 Long term (current) use of aspirin; Z79.899 Other long term (current) drug therapy

== ENCOUNTER → 2017-02-25 | Outpatient (CLI) | payer MEDICARE ==
[~2017-02-25] MED LIST changes: +ACE65ERTAB PO; +ALEN70TA39 PO; +BUPIVACAINE HCL 0.25% 30 ML VIAL As Ordered ONE; +CEFT500T3 PO; +DICL1GEL3 TD; +ISOVUE-M 300 61% 15ML VIAL (Q9967) As Ordered ONE; +LEVA1TAB2 PO; +LEVO50TA45 PO; +LEVO75TA34 PO; +LIDOCAINE 1% SDV INJ 30 ML VIAL As Ordered ONE; +TRIAMCINOLONE ACETONIDE SUSP 40 MG/ML VIAL (J3301) As Ordered ONE
--- NOTE | 2017-02-25 12:07 | REP ---
Partial right hip series: Two views. History: Sacroiliac joint injection for pain. 33 seconds of fluoroscopy time is reported. Findings: A sequence of three last image hold fluoroscopic spot radiographs of the right SI joint document needle position and contrast injections associated with SI joint injection procedure. Signed by Jeff Blanco MD 02/25/2017 12:59 P
--- NOTE | 2017-02-27 00:32 | ECWPNPC ---
PATIENT NAME: FIDEL TORRES : 1945 GENDER: MALE VISIT DATE: 02/25/2017 DISCHARGE DATE: 02/25/17 113 VISIT LOCKED DATE TIME: PHYSICIAN: BRAULIO HOBSON PHYSICIAN PAGER NO: [phone] RESOURCE: BRAULIO HOBSON REASON FOR APPOINTMENT 1. R L4-5, L5-S1 THERA. FACET HISTORY OF PRESENT ILLNESS HISTORY OF PRESENT ILLNESS: PAIN THE PATIENT DESCRIBES THE PAIN... FALL RISK SCREENING: SCREENING :NO FALLS IN THE PAST YEAR CURRENT MEDICATIONS TAKING TRAMADOL HCL 50 MG TABLET 1 TABLET NEEDED ORALLY EVERY 6 HOURS NEEDED FOR SEVERE PAIN MDD = 4, NOTES: 02/24/172129 TAKING ATORVASTATIN CALCIUM 80 MG TABLET 1 TABLET ORALLY ONCE A DAY AT BEDTIME, NOTES: 02/24/172129 TAKING TAMSULOSIN HCL 0.4 MG CAPSULE 1 CAPSULE ORALLY ONCE A DAY, NOTES: 02/24/17799 TAKING SALINE NASAL SPRAY 0.65 % SOLUTION 2 SPRAYS IN EACH NOSTRIL NEEDED NASALLY EVERY 4 HRS NEEDED, NOTES: 2-3 DAYS AGO TAKING NITROGLYCERIN 0.4 MG TABLET SUBLINGUAL 1 TABLET UNDER THE TONGUE AND ALLOW TO DISSOLVE NEEDED SUBLINGUAL DIRECTED, NOTES: NONE RECENTLY TAKING BISOPROLOL FUMARATE 10 MG TABLET 1 TABLET ORALLY ONCE A DAY, NOTES: 02/24/17799 TAKING TUMS 500 MG TABLET CHEWABLE ORALLY DIRECTED, NOTES: NONE RECCENTLY TAKING ALBUTEROL SULFATE (2.5 MG/3ML) 0.083% NEBULIZATION SOLUTION 3 ML INHALATION EVERY 4 HRS, NOTES: 02/25/17799 TAKING ASPIR-81 81 MG TABLET DELAYED RELEASE 1 TABLET ORALLY ONCE A DAY, NOTES: 02/24/17799 TAKING RANITIDINE HCL 300 MG TABLET 1 TAB ORALLY DAILY AT BEDTIME, NOTES: 02/24/172129 TAKING ADVAIR HFA 230-21 MCG/ACT AEROSOL 2 PUFFS INHALATION TWICE A DAY, NOTES: 02/25/17799 TAKING ALENDRONATE SODIUM 70 MG TABLET 1 TABLET ORALLY WEEKLY, NOTES: 02/24/17799 TAKING PREDNISONE 10 MG TABLET 1 TABLET ORALLY ONCE A DAY, NOTES: 02/24/17799 TAKING LEVOTHYROXINE SODIUM 75 MCG TABLET 1 TABLET ON AN EMPTY STOMACH IN THE MORNING ORALLY ONCE A DAY, NOTES: 02/24/17799 TAKING SPIRIVA HANDIHALER 18 MCG CAPSULE 1 CAPSULE INHALATION ONCE A DAY, NOTES: 02/25/17799 TAKING SPIRONOLACTONE 50 MG TABLET TAKE ONE TABLET BY MOUTH EVERY DAY , NOTES: 02/24/17799 TAKING TORSEMIDE 20 MG TABLET TAKE 3 TABLETS BY MOUTH TWO TIMES A DAY , NOTES: 02/24/172129 TAKING SIMETHICONE 80 MG TABLET CHEWABLE 1 TABLET NEEDED ORALLY TWO TIMES A DAY, NOTES: 02/24/172129 TAKING VOLTAREN 1 % GEL DIRECTED TRANSDERMAL , NOTES: NONE RECENTLY TAKING ESOMEPRAZOLE MAGNESIUM 40 MG CAPSULE DELAYED RELEASE 1 CAPSULE ORALLY TWICE A DAY, NOTES: 02/24/172129 TAKING PROAIR HFA 108 (90 BASE) MCG/ACT AEROSOL SOLUTION INHALE 2 PUFFS BY MOUTH FOUR TIMES A DAY NEEDED , NOTES: 02/25/17799 TAKING CALCITONIN (SALMON) 200 UNIT/ACT SOLUTION 1 PUFF NASALLY ONCE A DAY, NOTES: NONE RECENTLY TAKING MAY HAVE - - DIRECTED OXYGEN CONCENTRATOR DAILY DIRECTED, J44.9 TAKING MAY USE - - PORTABLE OXYGEN INHALLATION DX: J44.9 DIRECTED TAKING MAY HAVE - - DIRECTED OCD EVALUATION IF QUALIFIED GIVE POC DX: J44.9 TAKING ROLLING WALKER 1 1 4 WHEEL WALKER WITH SEAT DX: J44.9, R26.81. J96.11 DIRECTED TAKING WHEELCHAIR - MISCELLANEOUS DIRECTED CHRONIC LOW BACK PAINRELATED TO DCOP FRACTURES IN PATIENT WITH OXYGEN DEPT COPD AND OLIVAS S32.0405, J43.8, M54.5, Z99.81 NOT-TAKING ACETAMINOPHEN 650 MG TABLET 1 TABLET NEEDED ORALLY EVERY 4 HRS NOT-TAKING LIPITOR 80 MG TABLET 1 TAB ORALLY AT BEDTIME NOT-TAKING NEXIUM 40 MG CAPSULE DELAYED RELEASE TAKE 1 TABLET BY MOUTH BEFORE A MEAL TWO TIMES A DAY NOT-TAKING VOLTAREN 1 % GEL DIRECTED TRANSDERMAL FOUR TIMES DAILY NEEDED NOT-TAKING PHAZYME MAXIMUM STRENGTH 250 MG CAPSULE 1 CAPSULE AFTER MEALS AND AT BEDTIME NEEDED ORALLY TWICE A DAY NOT-TAKING FLOMAX 0.4 MG CAPSULE TAKE 1 CAPSULE BY MOUTH 30 MINUTES AFTER THE SAME MEAL EACH DAY MEDICATION LIST REVIEWED AND RECONCILED WITH THE PATIENT PAST MEDICAL HISTORY VEGETATION ON ICD LEAD ON CASEY 10/19--SUSPECTED NBTE, ON WARFARIN X 6 MO PER CARDIOLOGY/ANTECOL; HAD ECHO 05/22, NO MENTION OF THROMBOSIS ON LEAD; WARFARIN WAS DC 06/22 AFTER D/W CARDIOLOGY COPD/EMPHYSEMA CHRONIC LOW BACK PAIN - LUMBAR DDD PER X-RAYS HEARING LOSS BENIGN PROSTATIC HYPERPLASIA 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 BEGAN FOSAMAX 07/[address] 09/2016 ALLERGIES LATEX GLOVES: RASH, HIVES HEAD TO TOE: ALLERGY SHELLFISH: RASH/ITCHING: ALLERGY SULFA (FOR ALLERGY USE ONLY): ALLERGY VICODIN: ANAPHYLAXIS: ALLERGY PERCOCET: HALLUCINATIONS: SIDE EFFECTS NICODERM CQ: RASH: SIDE EFFECTS SURGICAL HISTORY ICD REPLACEMENT 2009,- ICD PLACEMENT 2004 RIGHT INGUINAL HERNIA REPAIR KIDNEY STONE REMOVAL 1979 COLONOSCOPY, DIVERTICULOSIS - REINDL 12/14 EGD, GASTRITIS, HH, BARRETTS ESOPHAGUS - REPEAT 3-5YRS - REINDL 12/14, 03/18 SOCIAL HISTORY GENERAL: TOBACCO USE ARE YOU A:CURRENT SMOKER HOW MANY CIGARETTES A DAY DO YOU SMOKE?11-20 PATIENT COUNSELED ON THE DANGERS OF TOBACCO USE AND URGED TO QUIT:12/07/2016 ARE YOU INTERESTED IN QUITTING?THINKING ABOUT QUITTING COUNSELED THE PATIENT ON SMOKING CESSATION, EDUCATION [id number]/04/2017 ALCOHOL SCREENING DID YOU HAVE A DRINK CONTAINING ALCOHOL IN THE PAST YEAR?NO POINTS0 INTERPRETATIONNEGATIVE CAFFEINE CAFFEINE USE?YES 1-2 CUPS DAILY OCCUPATION: RETIRED. [employer] [id number] NONE LANGUAGE LANGUAGES SPOKEN:BENGALI LEARNING BARRIERS / SPECIAL NEEDS BARRIERS TO LEARNING?NO HEARING IMPAIRED?YES VISION IMPAIRED?YES :CORRECTIVE LENSES COGNITIVELY IMPAIRED?NO READINESS TO LEARN?YES LEARNING PREFERENCES?NO LEARNING CAPABILITIES PRESENT?YES EMOTIONAL BARRIERS?NO SPECIAL DEVICES?YES :CANE, WALKER TAR HEATER OPERATOR NEEDED?NO PAIN CLINIC PFS, CLERGY, PUBLIC HEALTH REFERRALS PFS REFERRAL NEEDED?NO CLERGY REFERRAL NEEDED?NO PUBLIC HEALTH REFERRAL NEEDED?NO WAS THE PROVIDER NOTIFIED OF ANY PERTINENT INFO?NO HAS THE PATIENT BEEN EDUCATED REGARDING HIS/HER PLAN OF CARE?YES HAS THE PATIENT BEEN EDUCATED REGARDING PAIN, THE RISK FOR PAIN, THE IMPORTANCE OF EFFECTIVE PAIN MANAGEMENT, AND THE PAIN ASSESSMENT PROCESS?YES PATIENT: ____. ADVANCE DIRECTIVES HEALTH CARE PROXY?YES NAME OF HCP MELINDA MCPHERSON CONTACT # FOR HCP [phone] DO YOU HAVE A COPY WITH YOU?NO DO YOU HAVE A DNR?YES DO YOU HAVE A COPY WITH YOU?NO LIVING WILL?NO WOULD YOU LIKE MORE INFORMATION?NO POWER OF VALET CASHIER?NO WOULD YOU LIKE MORE INFORMATION?NO H/O 50 PACK YEARS OF SMOKING CIGS. HOSPITALIZATION/MAJOR DIAGNOSTIC PROCEDURE FOR SURGERIES ABOVE PANCOLITIS 10/2010 NBTE 10/2015 [facility] COPD 05/22 COPD EXACERBATION 10/03-10/07/16 PNEUMONIA 11/12/16 PNEUMONIA 01/20 REVIEW OF SYSTEMS REVIEWED BY: PROVIDER: . CONSTITUTIONAL: ANY CHANGE IN YOUR MEDICAL CONDITION? NO . CHILLS NO . FEVER NO . INFECTION: DO YOU HAVE NEW INFECTIONS? NO . DO YOU HAVE HISTORY OF MRSA? NO . MUSCULOSKELETAL: ANY NEW PATTERNS OF PAIN OR NUMBNESS? NO . GASTROENTEROLOGY: ANY NEW CHANGE IN BOWEL CONTROL? NO . GENITOURINARY: ANY NEW CHANGE IN BLADDER CONTROL? NO . IS THERE A CHANCE YOU COULD BE ? NO . HEMATOLOGY/LYMPH: DO YOU TAKE ANY BLOOD THINNERS? (FOR EXAMPLE- COUMADIN, PLAVIX, AGGRENOX, PLATEL, PRADAXA, OR XARELTO) NO . WHEN WAS YOUR LAST DOSE? DATE: TIME: . NEUROLOGY: HAVE YOU FALLEN IN THE PAST 6 MONTHS? YES . ANY NEW EXTREMITY NUMBNESS OR WEAKNESS? NO . CARDIOLOGY: DO YOU HAVE A PACEMAKER OR DEFIBRILLATOR? YES . RESPIRATORY: HAVE YOU BEEN SICK IN THE PAST WEEK? NO . FEVER NO . FLU LIKE SYMPTOMS? NO . COUGH NO . INTEGUMENTARY: DO YOU HAVE ANY RASHES OR OPEN SORES? NO . ALLERGIC/IMMUNO: ARE YOU ALLERGIC TO SHELLFISH OR IV DYE? YES . ANY NEW ALLERGIES? NO . PSYCHIATRIC: DO YOU HAVE THOUGHTS OF HURTING YOURSELF OR SOMEONE ELSE? NO . ARE YOU ABUSED, NEGLECTED, OR IN AN UNSAFE ENVIRONMENT? NO . ENDOCRINOLOGY: ARE YOU DIABETIC? NO . OTHER: DO YOU NEED ANY PRESCRIPTIONS? NO . IF YES, PLEASE LIST: ____ . ANY NEW PROBLEMS WITH YOUR MEDICATIONS? NO . WHEN DID YOU LAST EAT? LAST NIGHT . WHEN DID YOU LAST DRINK? LAST NIGHT . WHAT DID YOU LAST DRINK? WATER . NAME OF PERSON DRIVING YOU HOME? MELINDA MCPHERSON . DO YOU HAVE ANY OTHER QUESTIONS OR CONCERNS NO . VITAL SIGNS WT 177 LBS, HT 69 IN, BMI 26.14 INDEX, BP 114/65 MM HG, HR 87 /MIN, RR 18 /MIN, TEMP 98.0 F, OXYGEN SAT % 93%, NA INITIALS AW 0904, REVIEWED BY: SIL. ASSESSMENTS SACROILIITIS, NOT ELSEWHERE CLASSIFIED - M46.1 (PRIMARY) PROCEDURES PN SI PRE PROCEDURE DIAGNOSIS SACROILIITIS, SACROILIAC JOINT DYSFUNCTION POST PROCEDURE DIAGNOSIS SACROILIITIS, SACROILIAC JOINT DYSFUNCTION PROCEDURE RIGHT SACROILIAC JOINT BLOCK SURGEON DR. BRAULIO HOBSON VICE PRESIDENT INDUSTRIAL RELATIONS NONE ANESTHESIA LOCAL PRE PROCEDURE NOTE PATIENT WITH HISTORY OF CHRONIC LOW BACK PAIN. I EVALUATED THE PATIENT AND REVIEWED THE CHART. I WENT OVER THE RISKS, ALTERNATIVES, AND BENEFITS ASSOCIATED WITH THIS PROCEDURE. THE PATIENT WOULD LIKE TO PROCEED AND GAVE CONSENT TO PERFORM THE PROCEDURE. THE PATIENT DENIES UNEXPLAINABLE WEIGHT LOSS, FEVER, CHILLS, OR NEW CHANGES IN URINARY OR BOWEL CONTROL DESCRIPTION OF PROCEDURE THE PATIENT WAS BROUGHT TO THE PROCEDURE ROOM AND PLACED IN THE PRONE POSITION. THE LUMBOSACRAL AREA WAS CLEANED WITH CHLORAPREP SOLUTION AND DRAPED ASEPTICALLY. THE PROCEDURE WAS DONE UNDER STERILE CONDITIONS. I CHECKED LATERALITY AND THE LEVEL WHERE THE PROCEDURE WAS GOING TO BE PERFORMED WITH THE PATIENT AND THE SUPPORTING STAFF AT THE MOMENT OF THE TIME OUT IN THE PROCEDURE ROOM. UNDER FLUOROSCOPIC GUIDANCE, TARGET POINT WAS SELECTED AT THE LOWER BORDER OF THE RIGHT SACROILIAC JOINT. TARGET POINT WAS SELECTED AFTER MEDIAL ROTATION AND TILT OF THE MAGNIFIER OF THE C-ARM. LIDOCAINE WAS USED TO NUMB THE SKIN AND SUBCUTANEOUS TISSUE BELOW IT. A SPINAL NEEDLE, 22-GAUGE, WAS ADVANCED UNDER FLUOROSCOPIC GUIDANCE AND FOLLOWING PATIENT FEEDBACK UNTIL THE TARGET AREA WAS TOUCHED. THE POSITION OF THE NEEDLE WAS VERIFIED WITH AP AND LATERAL VIEWS. AFTER PROPER POSITION OF THE NEEDLE WAS ACHIEVED, ISOVUE M DYE 30%, 0.25 ML, WAS INJECTED SHOWING SPREAD OF THE DYE. THEN, A SOLUTION OF 20 MG OF KENALOG WAS INJECTED IN RIGHT JOINT WITH 3 ML OF BUPIVACAINE 0.125%. THERE WAS NO EVIDENCE OF BLOOD, PARESTHESIA OR CEREBROSPINAL FLUID DURING THE PROCEDURE. THE PATIENT WAS SENT TO THE RECOVERY ROOM. THE PATIENT WAS MOVING THE EXTREMITIES AND DOING WELL. THERE WAS NO COMPLICATION DURING THE PROCEDURE. FLUOROSCOPY TIME WAS 33 SECONDS POST PROCEDURE NOTE THE PATIENT WILL BE SEEN IN A FOLLOW UP IN THE NEXT FEW WEEKS. INSTRUCTIONS WERE GIVEN, QUESTIONS WERE ANSWERED, AND THE PATIENT EXPRESSED UNDERSTANDING AND AGREED WITH THE PLAN. I, TIFFANY DEVINE, DOCUMENTED THE ABOVE INFORMATION ACTING A SCRIBE FOR DR. HOBSON. I HAVE REVIEWED THE ABOVE DOCUMENT, WRITTEN BY TIFFANY DEVINE SCRIBE AND I VERIFY THAT IT IS ACCURATE DIAGNOSTIC IMAGING [facility] FLUORO GUIDANCE (PAIN)[id number] PROCEDURE CODES 57844 INJECT SACROILIAC JOINT, MODIFIERS: RT 6045F RADXPS IN END [id number] PXD DISPOSITION & COMMUNICATION FOLLOW UP 3 WEEKS ELECTRONICALLY SIGNED BY BRAULIO HOBSON MD ON 02/26/2017 AT 05:44 PM EDT DISCLAIMER : THIS IS A VISIT SUMMARY EXTRACTED FROM THE [employer] CHART. IT IS NOT A COPY OF THE [employer] PROGRESS NOTE. MTDD
== END ==
LOC: M PAIN 08:45
PROVIDERS: ATTEND Anesthesiology
DX: G89.29 Other chronic pain (principal); M46.1 Sacroiliitis, not elsewhere classified; M53.88 Other specified dorsopathies, sacral and sacrococcygeal region; I25.10 Atherosclerotic heart disease of native coronary artery without angina pectoris; I27.81 Cor pulmonale (chronic); I12.9 Hypertensive chronic kidney disease with stage 1 through stage 4 chronic kidney disease, or unspecified chronic kidney disease; N18.3 Chronic kidney disease, stage 3 (moderate); E78.2 Mixed hyperlipidemia; J43.8 Other emphysema; K22.70 Barrett's esophagus without dysplasia; C90.00 Multiple myeloma not having achieved remission; E03.9 Hypothyroidism, unspecified; Z91.040 Latex allergy status; Z91.013 Allergy to seafood; Z88.2 Allergy status to sulfonamides; Z88.5 Allergy status to narcotic agent; Z88.8 Allergy status to other drugs, medicaments and biological substances; Z79.891 Long term (current) use of opiate analgesic; Z79.82 Long term (current) use of aspirin; Z79.52 Long term (current) use of systemic steroids; Z79.899 Other long term (current) drug therapy; Z95.811 Presence of heart assist device
CPT/HCPCS: G0260; J3301; Q9967

== ENCOUNTER 2017-03-12 13:49 | Inpatient (IN) | payer MEDICARE ==
[~2017-03-12] VITALS: Ht 175.3 cm; Wt 78.0 kg
[~2017-03-12 13:49] MED LIST changes: -BUPIVACAINE HCL 0.25% 30 ML VIAL As Ordered ONE; -ISOVUE-M 300 61% 15ML VIAL (Q9967) As Ordered ONE; -LEVA1TAB2 PO; -LEVO50TA45 PO; -LIDOCAINE 1% SDV INJ 30 ML VIAL As Ordered ONE; -TRIAMCINOLONE ACETONIDE SUSP 40 MG/ML VIAL (J3301) As Ordered ONE
[2017-03-12] MEDS ORDERED: FUROSEMIDE 40 MG/4 ML VIAL (J1940) IV ONE (15:15)
[2017-03-12 15:36] LABS: MEAN CORPUSCULAR HEMOGLOBIN 29.2 pg (27.0-33.0); MEAN CORPUSCULAR HGB CONC 32.6 g/dl (32.0-36.5); MEAN CORPUSCULAR VOLUME 89.6 fl (80.0-96.0); PLATELET COUNT, AUTOMATED 193 10^3/uL (150-450); RED CELL DISTRIBUTION WIDTH 15.2 % (11.5-14.5); WHITE BLOOD COUNT 14.2 10^3/uL (4.0-10.0)
[2017-03-12 15:38] LABS: POS COUNT POS FLAG; POSITIVE MORPH POS FLAG
[2017-03-12 15:39] LABS: ADD MANUAL DIFFER YES; DIFF SLIDE NUMBER 303
[2017-03-12 15:56] LABS: BANDS 1 % (< 11); BASOPHILS 1 % (0-4)
[2017-03-12 15:58] LABS: BURR CELLS 1+
[2017-03-12 16:11] LABS: ANION GAP 8 MEQ/L (8-16); BLOOD UREA NITROGEN 26 MG/DL (7-18); CALCIUM LEVEL 8.6 MG/DL (8.8-10.2); CARBON DIOXIDE LEVEL 31 MEQ/L (21-32); CHLORIDE LEVEL 97 MEQ/L (98-107); CREATININE FOR GFR 1.17 MG/DL (0.70-1.30); GLOMERULAR FILTRATION RATE > 60.0 (>42); GLUCOSE, FASTING 121 MG/DL (83-110); SODIUM LEVEL 136 MEQ/L (136-145)
[2017-03-12] MEDS ORDERED: VANCOMYCIN HCL 1,000 MG, VIAL MATE ADAPTER 1 EACH in D5W 250 ML IV ONE (16:30)
[2017-03-12] MEDS ORDERED: PIPERACILLIN/TAZOBACTAM SOD 3.375 GM in D5W 50 ML IV ONE (16:30)
[2017-03-12] MEDS ORDERED: LEVO50TA45 PO (16:39)
--- NOTE | 2017-03-12 16:46 | REP ---
AP LATERAL CHEST: 03/12/2017: Clinical history: Dyspnea and cough. Comparison: Chest x-ray and CT chest 02/04/2017, 11/09/2016 Findings: A multi lead AICD pacer again seen and unchanged with leads in the right atrium and ventricle as well as an epicardial lead. Lungs are only marginally adequate in degree of inflation. There are basilar fibrotic changes along with some patchy atelectasis or infiltrates about both diaphragms. The large consolidation in the right middle lobe and lower lobes on the previous chest x-ray and CT have resolved. Patchy basilar opacity on the left is new. Heart size mildly prominent with left atrial enlargement. There is venous hypertension but no hugo pulmonary edema. The underlying fibrosis makes early interstitial edema difficult to exclude. No gross effusion. Impression: 1. COPD and fibrosis with heavier fibrosis in the bases and with new patchy superimposed infiltrate or atelectasis left base and some patchy density just above the right diaphragm which may be atelectasis or infiltrate. The large peripheral pneumonia seen on the previous study in the right lung has resolved. No gross effusion. Venous hypertension without hugo edema. Signed by Vazquez Valdez MD 03/12/2017 05:06 P
[2017-03-12 16:58] LABS: VENOUS O2 SATURATION 97.5 % (60.0-80.0); VENOUS PARTIAL PRESSURE O2 97.7 mmHg (30.0-50.0); VENOUS STANDARD HCO3 29.9 MEQ/L; VENOUS TOTAL CO2 34.2 MEQ/L (24.0-28.0)
[2017-03-12] MEDS ORDERED: ONDANSETRON 4MG/2ML VIAL (J2405) IV PRN (17:15)
[2017-03-12] MEDS ORDERED: ACETAMINOPHEN TAB 650MG DOSE (2X325MG) PO PRN (17:15)
[2017-03-12] MEDS ORDERED: SODIUM CHLORIDE NASAL 0.65% SPRAY BTL (OCEAN) PRN (17:30)
[2017-03-12] MEDS: methylPREDNISolone INJ 125 MG/2 ML VIAL (J2930) IV SCH (18:38)
[2017-03-12 20:00] VITALS: BP 128/64
[2017-03-12] MEDS: PANTOPRAZOLE 40MG TAB (PROTONIX) PO SCH (21:43)
[2017-03-12] MEDS: FAMOTIDINE 20 MG TAB PO SCH (21:43)
[2017-03-12] MEDS: ATORVASTATIN 20 MG TAB PO SCH (21:43)
[2017-03-12] MEDS: traMADol 50 MG TAB PO PRN (21:45)
[2017-03-12] MEDS: HEPARIN SOD (PORCINE) 5000 UNITS/ML VIAL SC SCH (21:45)
--- NOTE | 2017-03-12 21:47 | HPE ---
DATE OF ADMISSION: 03/12/2017 CHIEF COMPLAINT: Swollen legs. This is a patient of Dr. Archer. He was recently admitted and discharged from [facility] February 04 to February 07. Went home. Was doing okay. He was walking with a walker or a cane. He lives with his friend. He had not feeling following his fluid restriction. He thinks his fluid restriction is 60 ounces. He had gained weight in that time period, which sounds like it might be around 15 pounds. He had increasing shortness of breath, dyspnea on exertion, orthopnea with some cough productive of clear sputum. He has been treated for what sounds like compression fractures in his back. He has been to the pain clinic. Pain in his back is not well controlled. PAST MEDICAL HISTORY: Notable for: 1. A vegetation in the implantable cardioverter defibrillator (ICD) lead. 2. Chronic obstructive pulmonary disease (COPD) 3. Chronic low back pain. 4. Chronic hypoxic respiratory failure with 2.5 liter oxygen requirement. 5. Hearing loss. 6. Benign prostatic hypertrophy. 7. Coronary artery disease. 8. Cardiomyopathy. 9. Hypertensive heart disease. 10. Biventricular ICD. 11. Pulmonary hypertension. 12. Diastolic congestive heart failure. 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 14. Rotator cuff tear. 15. Chronic anemia. 16. Elevated kappa light chain 17. Cor pulmonale. 18. Hypothyroidism. 19. T10 compression fracture. 20. T11 compression fracture. 21. Lung nodule. ALLERGIES: LATEX, shellfish, SULFA, VICODIN, PERCOCET, NICODERM CQ, SOCIAL HISTORY: He still smokes cigarettes. REVIEW OF SYSTEMS: Notable for no change in bowel or bladder habits. No focal weakness. PHYSICAL EXAMINATION: Temperature is 97.4, pulse is 86, respiratory rate is 24, blood pressure 104/59, pulse oximetry 96% on 2.5 liters via nasal cannula. Negative fluid status of -250 thus far during his stay. He is awake, sitting upright at bedside. Speaking in complete sentences. He is not tachypneic on my exam. Head is normocephalic. Skin is thick. Pupils are equal, round, reactive, anicteric. Nasal septum is midline. Mucous membranes are moist. Neck is thick, supple. There is some elevation in jugular venous pulse (JVP). Breathing is symmetrically diminished. Inspiratory to expiratory (I-to-E) ratio is 1:5 with poor aeration. No wheezes. No costovertebral angle (CVA) tenderness. No sacral edema. Abdomen soft, doughy, nontender. There is tense, woody edema to above the knees on both sides. There is evidence of venous insufficiency. White cell count 14.2, hemoglobin 12.4, and platelets of 193. BUN 26, creatinine 1.17. TSH is 3.4. Troponin less than 0.02. Blood gas is 3.8, pCO2 of 55, pO2 of 97, bicarbonate 32. Blood cultures pending. Sputum cultures ordered. Chest x-ray shows chronic obstructive pulmonary disease (COPD) and fibrosis. New patchy infiltrate or atelectasis in the left base. The large right-sided peripheral pneumonia on the previous study has resolved. EKG shows sinus premature atrial contractions (PACs) at a rate of 90 and an left bundle branch block. ASSESSMENT: This is a 72-year-old with new left-sided pneumonia and possibly decompensated congestive heart failure. PLAN: 1. Infectious disease. Patient is admitted for suspected pneumonia. Sputum Gram stain and cultures are ordered. We will swab his nose for methicillin-resistant Staphylococcus aureus (MRSA). Started Zosyn based on his recent hospitalization. Will get a swallow evaluation. We have discussed smoking cessation counseling at length at the bedside. 2. Patient has chronic hypoxic respiratory failure, COPD with poor aeration. May benefit from steroids, which have been ordered. 3. Patient has evidence of fluid overload. He has known diastolic dysfunction. He has not been compliant with his fluid restriction. Will give IV Lasix and reinstitute a fluid restriction. 4. There is a history of a medical order for life-sustaining treatment (MOLST) form. It looks as though it has been filled out 11/03/2015. It appears to show the patient is DO NOT RESUSCITATE/DO NOT INTUBATE.
[2017-03-12] MEDS: ADVAIR HFA 230/21MCG INHALER INH SCH (22:12)
[2017-03-12] MEDS: PIPERACILLIN/TAZOBACTAM SOD 3.375 GM in D5W 50 ML IV SCH (23:48)
[2017-03-12] MEDS: FUROSEMIDE 40 MG/4 ML VIAL (J1940) IV SCH (23:57)
[2017-03-13] VITALS (7 sets, daily range): BP systolic 102–148; BP diastolic 52–71
[2017-03-13] MEDS ORDERED: SLF 3 ML SYR IV PRN ×2 (02:00→13:30)
[2017-03-13] MEDS: ALBUTEROL SULFATE 2.5 MG/0.5 ML INH NEB SOLN NEB PRN ×2 (02:04→15:51)
[2017-03-13] MEDS: PIPERACILLIN/TAZOBACTAM SOD 3.375 GM in D5W 50 ML IV SCH ×4 (04:53→23:07)
[2017-03-13 05:18] LABS: MEAN CORPUSCULAR HGB CONC 32.1 g/dl (32.0-36.5); MEAN CORPUSCULAR VOLUME 90.3 fl (80.0-96.0); PLATELET COUNT, AUTOMATED 206 10^3/uL (150-450); RED CELL DISTRIBUTION WIDTH 15.1 % (11.5-14.5); WHITE BLOOD COUNT 13.4 10^3/uL (4.0-10.0)
[2017-03-13 05:38] LABS: CALCIUM LEVEL 8.4 MG/DL (8.8-10.2); CREATININE FOR GFR 1.27 MG/DL (0.70-1.30); PHOSPHORUS LEVEL 4.1 MG/DL (2.5-4.9); POTASSIUM SERUM 4.1 MEQ/L (3.5-5.1)
[2017-03-13 05:39] LABS: ALBUMIN 3.1 GM/DL (3.2-5.2); MAGNESIUM LEVEL 2.1 MG/DL (1.8-2.4)
[2017-03-13] MEDS: LEVOTHYROXINE 50MCG TABLET (0.05MG) PO SCH (06:00)
[2017-03-13] MEDS: FUROSEMIDE 40 MG/4 ML VIAL (J1940) IV SCH ×2 (06:00→11:14)
[2017-03-13] MEDS: methylPREDNISolone INJ 125 MG/2 ML VIAL (J2930) IV SCH ×3 (06:00→20:44)
[2017-03-13] MEDS: SLF 3 ML SYR IV SCH ×5 (06:01→20:55)
[2017-03-13] MEDS: TIOTROPIUM INHALER/CAPSULE (SPIRIVA) INH SCH (07:11)
[2017-03-13] MEDS: ADVAIR HFA 230/21MCG INHALER INH SCH ×2 (07:11→20:58)
[2017-03-13] MEDS: NYSTATIN 100,000 UNITS/GM TOPICAL PWD 15 GM TOP SCH ×3 (09:00→20:44)
[2017-03-13] MEDS: SPIRONOLACTONE 50 MG TAB PO SCH (09:30)
[2017-03-13] MEDS: TAMSULOSIN 0.4 MG CAP PO SCH (09:30)
[2017-03-13] MEDS: ASPIRIN 81 MG ENTERIC TAB PO SCH (09:30)
[2017-03-13] MEDS: HEPARIN SOD (PORCINE) 5000 UNITS/ML VIAL SC SCH ×2 (09:30→20:44)
[2017-03-13] MEDS: PANTOPRAZOLE 40MG TAB (PROTONIX) PO SCH ×2 (09:30→20:44)
--- NOTE | 2017-03-13 09:48 | IPNPDOC ---
Subjective Date Seen The patient was seen on 03/13/17. Subjective Chief Complaint/HPI The patient is a 72-year-old male admitted with a reason for visit of Pneumonia. Events since last encounter Noted to have + e. coli on last sputum. On Pip/alondra. States breathing is at baseline. Wears 2-3LNC at home. Denies CP. Constitutional: Denies: Chills, Fever, Night Sweats Eyes: Denies: Pain, Vision change ENT: Denies: Head Aches, Ear Pain, Dysphagia Skin: Denies: Rash, Lesions, Breakdown Pulmonary: Reports: Dyspnea, Cough Cardiovascular: Reports: Edema, Denies: Chest Pain, Palpitations, Orthopnea, Paroxysmal Noc. Dyspnea, Lt Headedness Gastrointestinal: Denies: Nausea, Vomiting, Abdominal Pain, Diarrhea, Constipation Genitourinary: Denies: Dysuria, Frequency, Incontinence, Retention Hematologic: Denies: Bruising, Bleeding Excessively Objective Physical Examination General Exam: Positive: Alert, Mild Distress Eye Exam: Positive: PERRLA, Conjunctiva & lids normal, EOMI, Negative: Sclera icteric ENT Exam: Positive: Atraumatic, Mucous membr. moist/pink, Pharynx Normal Neck Exam: Positive: Supple, Negative: JVD, thyromegaly Chest Exam: Positive: Normal air movement, Rhonchi, Wheezing, Diminished Heart Exam: Positive: Rate Normal, Regular Rhythm, Normal S1, Normal S2, Negative: Murmurs, Rubs Telemetry: Positive: No significant arrhythmia Abdomen Exam: Positive: Normal bowel sounds, Soft, Negative: Tenderness, Hepatospenomegaly Extremity Exam: Positive: Edema (3+), Normal pulses, Negative: Clubbing, Cyanosis Skin Exam: Positive: Nl turgor and temperature, Negative: Rash, Breakdown Neuro Exam: Positive: Normal Gait, Normal Speech, Cranial Nerves 3-12 NL, Reflexes 2+ Assessment /Plan Problems (1) Pneumonia Status: Acute Problem Text: last Sputum cx + for e. coli. Will eval for aspiration. Bedside swallow eval ordered (2) Heart failure, systolic and diastolic, acute on chronic Status: Acute Problem Text: Continue Lasix IV q 6 hrs. Monitor I/O (3) COPD (chronic obstructive pulmonary disease) Status: Chronic Problem Text: Duonebs q 6 hrs, albuterol nebs q 2 hrs prn Solumedrol Keep oxygen saturations between 88-92% Self regulated oxygen at home 2-3 LNC (4) Murphy esophagus Status: Chronic Problem Text: ? aspiration. Continue PPI (5) Hyperlipidemia Status: Chronic (6) Hypothyroidism Status: Chronic Response to Treatment: Stable (7) HTN (hypertension) Status: Chronic Response to Treatment: Stable (8) CAD (coronary artery disease) Status: Chronic Problem Specific Plan: Monitor Clinically Plan/VTE VTE Prophylaxis Ordered?: Yes (Heparin) VS, I&O, 24H, Fishbone Vital Signs/I&O Vital Signs Date Time Temp Pulse Resp B/P (MAP) Pulse Ox O2 Delivery O2 Flow Rate FiO2 03/13/17 08:00 96.7 69 18 111/66 (81) 96 Nasal Cannula 2.0 I&O- Last 24 Hours up to 6 AM 03/14/17 06:00 Intake Total 0 ml Output Total 0 ml Balance 0 ml Laboratory Data 24H LABS Laboratory Tests 2 03/12/17 15:23: Immature Granulocyte % (Auto) , Nucleated Red Blood Cells % (auto) 0.0, Neutrophils 90H, Band Neutrophils 1, Lymphocytes (Manual) 3L, Monocytes (Manual ) 3, Basophils (Manual) 1, Metamyelocytes 1H, Myelocytes 1H, Platelet Estimate NORMAL, Holcomb Cells 1+, Anion Gap 8, Glomerular Filtration Rate > 60.0, Blood Urea Nitrogen 26H, Creatinine 1.17, Sodium Level 136, Potassium Level 4.0, Chloride Level 97L, Carbon Dioxide Level 31, Calcium Level 8.6L, Total Creatine Kinase 26L, Creatine Kinase MB 1.0, Creatine Kinase MB Relative Index 3.84, Troponin I < 0.02, US-Xko-B-Type Natriuretic Peptide 353H, Thyroid Stimulating Hormone (TSH) 3.450 03/12/17 15:46: Blood Gas Bicarbonate Standard 29.9, Venous Blood pH 7.389, Venous Blood Partial Pressure CO2 55.0H, Venous Blood Partial Pressure O2 97.7H, Venous Blood Total Carbon Dioxide 34.2H, Venous Blood HCO3 32.5H, Venous Blood Oxygen Saturation 97.5H, Venous Blood Base Excess 6.0H 03/13/17 04:54: Nucleated Red Blood Cells % (auto) 0.0, Anion Gap 8, Glomerular Filtration Rate 59.0, Blood Urea Nitrogen 30H, Creatinine 1.27, Sodium Level 136, Potassium Level 4.1, Chloride Level 98, Carbon Dioxide Level 30, Calcium Level 8.4L, Phosphorus Level 4.1, Magnesium Level 2.1, C-Reactive Protein, Quantitative 0.46H, Albumin 3.1L CBC/BMP Laboratory Tests 03/12/17 15:23 Red Blood Count 4.24 L, Mean Corpuscular Volume 89.6, Mean Corpuscular Hemoglobin 29.2, Mean Corpuscular Hemoglobin Concent 32.6, Red Cell Distribution Width 15.2 H, Calcium Level 8.6 L, Total Creatine Kinase 26 L 03/13/17 04:54 Red Blood Count 4.35, Mean Corpuscular Volume 90.3, Mean Corpuscular Hemoglobin 29.0, Mean Corpuscular Hemoglobin Concent 32.1, Red Cell Distribution Width 15.1 H, Anion Gap 8 Microbiology Microbiology 03/12/17 Blood Culture, Received Pending 03/12/17 Blood Culture, Received Pending 03/12/17 MRSA Screen, Received Pending 03/12/17 Gram Stain, Received Pending 03/12/17 Sputum Culture, Received Pending Louise Cardenas [facility] FLO[facility] Mar 13, 2017 09:48
[2017-03-13] MEDS: BISOPROLOL FUMARATE 10 MG TAB PO SCH (11:17)
[2017-03-13] MEDS: FUROSEMIDE 100 MG/10 ML VIAL (J1940) IV SCH ×2 (17:55→23:06)
[2017-03-13] MEDS: FAMOTIDINE 20 MG TAB PO SCH (20:44)
[2017-03-13] MEDS: ATORVASTATIN 20 MG TAB PO SCH (20:44)
[2017-03-14] VITALS: BP 104/69
[2017-03-14 04:00] VITALS: BP 101/60
[2017-03-14] MEDS: PIPERACILLIN/TAZOBACTAM SOD 3.375 GM in D5W 50 ML IV SCH ×4 (04:16→22:08)
[2017-03-14] MEDS: LEVOTHYROXINE 50MCG TABLET (0.05MG) PO SCH (05:20)
[2017-03-14] MEDS: methylPREDNISolone INJ 125 MG/2 ML VIAL (J2930) IV SCH ×3 (05:20→22:07)
[2017-03-14] MEDS: FUROSEMIDE 100 MG/10 ML VIAL (J1940) IV SCH ×3 (05:21→18:23)
[2017-03-14] MEDS: SLF 3 ML SYR IV SCH ×6 (05:21→22:08)
[2017-03-14 06:06] LABS: MEAN CORPUSCULAR HGB CONC 32.1 g/dl (32.0-36.5); MEAN CORPUSCULAR VOLUME 90.3 fl (80.0-96.0); PLATELET COUNT, AUTOMATED 188 10^3/uL (150-450); RED CELL DISTRIBUTION WIDTH 15.3 % (11.5-14.5); WHITE BLOOD COUNT 17.4 10^3/uL (4.0-10.0)
[2017-03-14 06:25] LABS: ALBUMIN 3.1 GM/DL (3.2-5.2); ANION GAP 7 MEQ/L (8-16); BLOOD UREA NITROGEN 32 MG/DL (7-18); CALCIUM LEVEL 7.7 MG/DL (8.8-10.2); CARBON DIOXIDE LEVEL 32 MEQ/L (21-32); CHLORIDE LEVEL 97 MEQ/L (98-107); CREATININE FOR GFR 1.24 MG/DL (0.70-1.30); GLOMERULAR FILTRATION RATE > 60.0 (>42); GLUCOSE, FASTING 126 MG/DL (83-110); MAGNESIUM LEVEL 2.4 MG/DL (1.8-2.4); PHOSPHORUS LEVEL 3.8 MG/DL (2.5-4.9); POTASSIUM SERUM 4.4 MEQ/L (3.5-5.1); SODIUM LEVEL 136 MEQ/L (136-145)
--- NOTE | 2017-03-14 07:05 | ECGEPIP ---
Stationary ECG Study [facility] - ED Test Date: 2017-03-12 Pat Name: FIDEL TORRES Department: Room: - Gender: M Development Manager: denisha : 1945 Requested By: Mike Yang Order Number: [id number] Reading MD: Mike Salazar Measurements Intervals [place] Rate: 90 P: 24 [place]: 175 QRS: 10 QRSD: 142 T: 43 QT: 373 QTc: 458 Interpretive Statements SINUS RHYTHM WITH FREQUENT SUPRAVENTRICULAR PREMATURE COMPLEXES LEFT BUNDLE BRANCH BLOCK BASELINE ARTIFACT AFFECTS INTERPRETATION SIMILAR TO 02/04/17 Electronically Signed On 03-14-2017 7:05:09 EST by Mike Salazar
[2017-03-14] MEDS: TIOTROPIUM INHALER/CAPSULE (SPIRIVA) INH SCH (07:11)
[2017-03-14] MEDS: ADVAIR HFA 230/21MCG INHALER INH SCH ×2 (07:11→20:49)
[2017-03-14 08:00] VITALS: BP 104/56
[2017-03-14] MEDS: BISOPROLOL FUMARATE 10 MG TAB PO SCH (09:00)
[2017-03-14] MEDS ORDERED: PREVNAR 13 VACCINE SYRINGE (CPT CODE:90670) IM ONE (09:00)
[2017-03-14] MEDS: SPIRONOLACTONE 50 MG TAB PO SCH (09:00)
[2017-03-14] MEDS: NYSTATIN 100,000 UNITS/GM TOPICAL PWD 15 GM TOP SCH ×3 (10:02→20:39)
[2017-03-14] MEDS: ASPIRIN 81 MG ENTERIC TAB PO SCH (10:02)
[2017-03-14] MEDS: HEPARIN SOD (PORCINE) 5000 UNITS/ML VIAL SC SCH ×2 (10:02→20:39)
[2017-03-14] MEDS: PANTOPRAZOLE 40MG TAB (PROTONIX) PO SCH ×2 (10:04→20:38)
[2017-03-14] MEDS: TAMSULOSIN 0.4 MG CAP PO SCH (10:04)
--- NOTE | 2017-03-14 10:46 | IPNPDOC ---
Subjective Date Seen The patient was seen on 03/14/17. Subjective Chief Complaint/HPI The patient is a 72-year-old male admitted with a reason for visit of Pneumonia. Events since last encounter Patient noting significant improvement in breathing symptoms. Leg edema is slowly improving with lasix. currently on 1500 ml fluid restriction. swallowing eval advised mechanical soft, will need modified barium swallow as an outpatient. Constitutional: Denies: Chills, Fever, Night Sweats ENT: Denies: Head Aches, Ear Pain, Dysphagia Skin: Denies: Rash, Lesions, Breakdown Pulmonary: Reports: Dyspnea, Denies: Cough Cardiovascular: Denies: Chest Pain, Palpitations, Orthopnea, Paroxysmal Noc. Dyspnea, Lt Headedness Gastrointestinal: Denies: Nausea, Vomiting, Abdominal Pain, Diarrhea, Constipation Psych: Reports: Mood Normal, Denies: Depression, Memory Issues Objective Physical Examination General Exam: Positive: Alert, No Acute Distress Eye Exam: Positive: PERRLA, Conjunctiva & lids normal, EOMI, Negative: Sclera icteric ENT Exam: Positive: Atraumatic, Mucous membr. moist/pink, Pharynx Normal Neck Exam: Positive: Supple, Negative: JVD, thyromegaly Chest Exam: Positive: Normal air movement, Rhonchi (left side), Wheezing ( throughout), Diminished (left side) Heart Exam: Positive: Rate Normal, Regular Rhythm, Normal S1, Normal S2, Negative: Murmurs, Rubs Telemetry: Positive: No significant arrhythmia Abdomen Exam: Positive: Normal bowel sounds, Soft, Negative: Tenderness, Hepatospenomegaly Extremity Exam: Positive: Edema (3+), Normal pulses, Negative: Clubbing, Cyanosis Skin Exam: Positive: Nl turgor and temperature, Negative: Rash, Breakdown Neuro Exam: Positive: Normal Gait, Normal Speech, Cranial Nerves 3-12 NL, Reflexes 2+ Psych Exam: Positive: Mental status NL Assessment /Plan Problems (1) Pneumonia Status: Acute Problem Text: last Sputum cx + for e. coli. mechanical soft diet with thin liquids. Will need modified barium swallow as an outpatient due to lack of flouro suite availability in facility (2) Heart failure, systolic and diastolic, acute on chronic Status: Acute Problem Text: Continue Lasix IV q 6 hrs. Monitor I/O (3) COPD (chronic obstructive pulmonary disease) Status: Chronic Problem Text: Duonebs q 6 hrs, albuterol nebs q 2 hrs prn Solumedrol Keep oxygen saturations between 88-92% Self regulated oxygen at home 2-3 LNC (4) Murphy esophagus Status: Chronic Problem Text: ? aspiration. Continue PPI (5) Hyperlipidemia Status: Chronic (6) Hypothyroidism Status: Chronic Response to Treatment: Stable (7) HTN (hypertension) Status: Chronic Response to Treatment: Stable (8) CAD (coronary artery disease) Status: Chronic Problem Specific Plan: Monitor Clinically Plan/VTE VTE Prophylaxis Ordered?: Yes (Heparin) VS, I&O, 24H, Fishbone Vital Signs/I&O Vital Signs Date Time Temp Pulse Resp B/P (MAP) Pulse Ox O2 Delivery O2 Flow Rate FiO2 03/14/17 08:00 97.6 68 20 104/56 (72) 97 Nasal Cannula 2.0 I&O- Last 24 Hours up to 6 AM 03/15/17 05:59 Intake Total 410 ml Output Total 300 ml Balance 110 ml Laboratory Data 24H LABS Laboratory Tests 2 03/14/17 05:53: Nucleated Red Blood Cells % (auto) 0.0, Blood Urea Nitrogen 32H, Creatinine 1.24 , Sodium Level 136, Potassium Level 4.4, Chloride Level 97L, Carbon Dioxide Level 32, Anion Gap 7L, Glomerular Filtration Rate > 60.0, Calcium Level 7.7L, Phosphorus Level 3.8, Magnesium Level 2.4, Albumin 3.1L CBC/BMP Laboratory Tests 03/14/17 05:53 Red Blood Count 4.14 L, Mean Corpuscular Volume 90.3, Mean Corpuscular Hemoglobin 29.0, Mean Corpuscular Hemoglobin Concent 32.1, Red Cell Distribution Width 15.3 H, Anion Gap 7 L Microbiology Microbiology 03/12/17 Blood Culture - Preliminary, Resulted No growth after 24 hours . All specim... 03/12/17 Blood Culture - Preliminary, Resulted No growth after 24 hours . All specim... 03/12/17 MRSA Screen - Final, Complete 03/12/17 Gram Stain - Final, Resulted 03/12/17 Sputum Culture, Resulted Pending Louise Cardenas [employer] PROGRAM COORDINATOR Mar 14, 2017 10:46
[2017-03-14 12:00] VITALS: BP 111/69
[2017-03-14 16:00] VITALS: BP 106/59
[2017-03-14 20:00] VITALS: BP 121/66
[2017-03-14] MEDS: FAMOTIDINE 20 MG TAB PO SCH (20:38)
[2017-03-14] MEDS: ATORVASTATIN 20 MG TAB PO SCH (20:38)
[2017-03-15] VITALS (8 sets, daily range): BP systolic 109–124; BP diastolic 56–70
[2017-03-15] MEDS: FUROSEMIDE 100 MG/10 ML VIAL (J1940) IV SCH ×2 (00:16→05:57)
[2017-03-15] MEDS: PIPERACILLIN/TAZOBACTAM SOD 3.375 GM in D5W 50 ML IV SCH ×2 (04:04→11:03)
[2017-03-15] MEDS: methylPREDNISolone INJ 125 MG/2 ML VIAL (J2930) IV SCH (05:57)
[2017-03-15] MEDS: LEVOTHYROXINE 50MCG TABLET (0.05MG) PO SCH (05:57)
[2017-03-15] MEDS: SLF 3 ML SYR IV SCH ×6 (05:58→22:00)
[2017-03-15 07:27] LABS: MEAN CORPUSCULAR HEMOGLOBIN 29.1 pg (27.0-33.0); MEAN CORPUSCULAR HGB CONC 32.4 g/dl (32.0-36.5); PLATELET COUNT, AUTOMATED 204 10^3/uL (150-450); RED CELL DISTRIBUTION WIDTH 15.2 % (11.5-14.5); WHITE BLOOD COUNT 18.9 10^3/uL (4.0-10.0)
[2017-03-15 07:51] LABS: ALBUMIN 3.2 GM/DL (3.2-5.2); CALCIUM LEVEL 7.4 MG/DL (8.8-10.2); CREATININE FOR GFR 1.3 MG/DL (0.70-1.30); GLOMERULAR FILTRATION RATE 57.4 (>42); MAGNESIUM LEVEL 2.2 MG/DL (1.8-2.4); PHOSPHORUS LEVEL 3.1 MG/DL (2.5-4.9); POTASSIUM SERUM 3.9 MEQ/L (3.5-5.1)
[2017-03-15] MEDS: TIOTROPIUM INHALER/CAPSULE (SPIRIVA) INH SCH (08:35)
[2017-03-15] MEDS: ADVAIR HFA 230/21MCG INHALER INH SCH ×2 (08:35→20:21)
[2017-03-15] MEDS: SPIRONOLACTONE 50 MG TAB PO SCH (09:39)
[2017-03-15] MEDS: NYSTATIN 100,000 UNITS/GM TOPICAL PWD 15 GM TOP SCH ×3 (09:39→21:43)
[2017-03-15] MEDS: HEPARIN SOD (PORCINE) 5000 UNITS/ML VIAL SC SCH ×2 (09:39→21:43)
[2017-03-15] MEDS: ASPIRIN 81 MG ENTERIC TAB PO SCH (09:39)
[2017-03-15] MEDS: TAMSULOSIN 0.4 MG CAP PO SCH (09:39)
[2017-03-15] MEDS: PANTOPRAZOLE 40MG TAB (PROTONIX) PO SCH ×2 (09:39→21:44)
[2017-03-15] MEDS: BISOPROLOL FUMARATE 10 MG TAB PO SCH (09:46)
--- NOTE | 2017-03-15 10:36 | IPNPDOC ---
Subjective Date Seen The patient was seen on 03/15/17. Subjective Chief Complaint/HPI The patient is a 72-year-old male admitted with a reason for visit of Pneumonia. Events since last encounter Minimal change in Urine output. Legs remain edematous. + OLIVAS. Constitutional: Denies: Chills, Fever, Night Sweats Pulmonary: Reports: Dyspnea Cardiovascular: Reports: Edema, Denies: Chest Pain, Palpitations, Orthopnea Gastrointestinal: Denies: Nausea, Vomiting, Abdominal Pain, Diarrhea, Constipation Objective Physical Examination General Exam: Positive: Alert, No Acute Distress Eye Exam: Positive: PERRLA, Conjunctiva & lids normal, EOMI, Negative: Sclera icteric ENT Exam: Positive: Atraumatic, Mucous membr. moist/pink, Pharynx Normal Neck Exam: Positive: Supple, Negative: JVD, thyromegaly Chest Exam: Positive: Normal air movement, Rales, Diminished (bibasilar), Negative: Wheezing Heart Exam: Positive: Rate Normal, Regular Rhythm, Normal S1, Normal S2, Negative: Murmurs, Rubs Telemetry: Positive: No significant arrhythmia Abdomen Exam: Positive: Normal bowel sounds, Soft, Negative: Tenderness, Hepatospenomegaly Extremity Exam: Positive: Edema (3+), Normal pulses, Negative: Clubbing, Cyanosis Skin Exam: Positive: Nl turgor and temperature, Negative: Rash, Breakdown Neuro Exam: Positive: Normal Gait, Normal Speech, Cranial Nerves 3-12 NL, Reflexes 2+ Psych Exam: Positive: Mental status NL Assessment /Plan Problems (1) Pneumonia Status: Acute Problem Text: Day #3 Pip/Charles. last Sputum cx + for e. coli. mechanical soft diet with thin liquids. Will need modified barium swallow as an outpatient due to lack of flouro suite availability in facility (2) Heart failure, systolic and diastolic, acute on chronic Status: Acute Problem Text: 03/15/17: Lasix has proven ineffective. Will change to Torsemide 100 mg po bid. Takes Torsemide 60 mg po bid as outpatient. Continue 2 gram sodium diet with 1500 ml fluid restriction. Continue Lasix IV q 6 hrs. Monitor I/O (3) COPD (chronic obstructive pulmonary disease) Status: Chronic Problem Text: Duonebs q 6 hrs, albuterol nebs q 2 hrs prn Solumedrol Keep oxygen saturations between 88-92% Self regulated oxygen at home 2-3 LNC (4) Murphy esophagus Status: Chronic Problem Text: ? aspiration. Continue PPI (5) Hyperlipidemia Status: Chronic (6) Hypothyroidism Status: Chronic Response to Treatment: Stable (7) HTN (hypertension) Status: Chronic Response to Treatment: Stable (8) CAD (coronary artery disease) Status: Chronic Problem Specific Plan: Monitor Clinically Plan/VTE VTE Prophylaxis Ordered?: Yes (Heparin) VS, I&O, 24H, Fishbone Vital Signs/I&O Vital Signs Date Time Temp Pulse Resp B/P (MAP) Pulse Ox O2 Delivery O2 Flow Rate FiO2 03/15/17 09:46 70 124/59 03/15/17 08:00 97.3 18 96 Nasal Cannula 3.0 I&O- Last 24 Hours up to 6 AM 03/16/17 06:00 Intake Total 480 ml Balance 480 ml Laboratory Data 24H LABS Laboratory Tests 2 03/15/17 07:13: Nucleated Red Blood Cells % (auto) 0.0, Blood Urea Nitrogen 35H, Creatinine 1.30 , Sodium Level 135L, Potassium Level 3.9, Chloride Level 95L, Carbon Dioxide Level 35H, Anion Gap 5L, Glomerular Filtration Rate 57.4, Calcium Level 7.4L, Phosphorus Level 3.1, Magnesium Level 2.2, Albumin 3.2 CBC/BMP Laboratory Tests 03/15/17 07:13 Red Blood Count 4.22 L, Mean Corpuscular Volume 90.0, Mean Corpuscular Hemoglobin 29.1, Mean Corpuscular Hemoglobin Concent 32.4, Red Cell Distribution Width 15.2 H, Anion Gap 5 L Microbiology Microbiology 03/12/17 Blood Culture - Preliminary, Resulted No Growth after 48 hours. All Specime... 03/12/17 Blood Culture - Preliminary, Resulted No Growth after 48 hours. All Specime... 03/12/17 MRSA Screen - Final, Complete 03/12/17 Gram Stain - Final, Resulted 03/12/17 Sputum Culture, Resulted Pending Louise Cardenas LIQUOR RECTIFIER Mar 15, 2017 10:36
[2017-03-15] MEDS: predniSONE 20 MG TAB PO SCH (11:11)
[2017-03-15] MEDS: TORSEMIDE 100 MG TAB PO SCH ×2 (12:15→17:09)
[2017-03-15] MEDS: LevoFLOXacin 500 MG TABLET PO SCH (13:55)
[2017-03-15 15:22] LABS: ANION GAP 8 MEQ/L (8-16); BLOOD UREA NITROGEN 37 MG/DL (7-18); CALCIUM LEVEL 7.2 MG/DL (8.8-10.2); CARBON DIOXIDE LEVEL 34 MEQ/L (21-32); CHLORIDE LEVEL 96 MEQ/L (98-107); CREATININE FOR GFR 1.24 MG/DL (0.70-1.30); GLOMERULAR FILTRATION RATE > 60.0 (>42); GLUCOSE, FASTING 155 MG/DL (83-110); POTASSIUM SERUM 3.9 MEQ/L (3.5-5.1); SODIUM LEVEL 138 MEQ/L (136-145)
--- NOTE | 2017-03-15 18:14 | ECGEPIP ---
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
[2017-03-15] MEDS: ATORVASTATIN 20 MG TAB PO SCH (21:42)
[2017-03-15] MEDS: FAMOTIDINE 20 MG TAB PO SCH (21:44)
[2017-03-15] MEDS ORDERED: POTASSIUM CHLORIDE 10 MEQ SR TABLET PO ONE (23:15)
[2017-03-16] VITALS (7 sets, daily range): BP systolic 102–131; BP diastolic 60–71
[2017-03-16 05:35] LABS: MEAN CORPUSCULAR HEMOGLOBIN 28.8 pg (27.0-33.0); MEAN CORPUSCULAR HGB CONC 31.4 g/dl (32.0-36.5); MEAN CORPUSCULAR VOLUME 91.7 fl (80.0-96.0); PLATELET COUNT, AUTOMATED 185 10^3/uL (150-450); RED CELL DISTRIBUTION WIDTH 15.3 % (11.5-14.5)
[2017-03-16] MEDS: LEVOTHYROXINE 50MCG TABLET (0.05MG) PO SCH (05:43)
[2017-03-16] MEDS: SLF 3 ML SYR IV SCH ×5 (05:43→21:04)
[2017-03-16] MEDS: LevoFLOXacin 500 MG TABLET PO SCH (05:43)
[2017-03-16 06:11] LABS: ALBUMIN 2.8 GM/DL (3.2-5.2); ANION GAP 6 MEQ/L (8-16); BLOOD UREA NITROGEN 35 MG/DL (7-18); CALCIUM LEVEL 6.8 MG/DL (8.8-10.2); CARBON DIOXIDE LEVEL 36 MEQ/L (21-32); CHLORIDE LEVEL 96 MEQ/L (98-107); CREATININE FOR GFR 1.13 MG/DL (0.70-1.30); GLOMERULAR FILTRATION RATE > 60.0 (>42); GLUCOSE, FASTING 98 MG/DL (83-110); MAGNESIUM LEVEL 2.2 MG/DL (1.8-2.4); PHOSPHORUS LEVEL 2.9 MG/DL (2.5-4.9); POTASSIUM SERUM 3.6 MEQ/L (3.5-5.1); SODIUM LEVEL 138 MEQ/L (136-145)
[2017-03-16] MEDS: ADVAIR HFA 230/21MCG INHALER INH SCH ×2 (07:18→20:17)
[2017-03-16] MEDS: TIOTROPIUM INHALER/CAPSULE (SPIRIVA) INH SCH (07:18)
[2017-03-16] MEDS: NYSTATIN 100,000 UNITS/GM TOPICAL PWD 15 GM TOP SCH ×3 (09:00→21:04)
[2017-03-16] MEDS: BISOPROLOL FUMARATE 10 MG TAB PO SCH (09:39)
[2017-03-16] MEDS: SPIRONOLACTONE 50 MG TAB PO SCH (09:39)
[2017-03-16] MEDS: TAMSULOSIN 0.4 MG CAP PO SCH (09:40)
[2017-03-16] MEDS: TORSEMIDE 100 MG TAB PO SCH ×2 (09:40→17:46)
[2017-03-16] MEDS: ASPIRIN 81 MG ENTERIC TAB PO SCH (09:41)
[2017-03-16] MEDS: PANTOPRAZOLE 40MG TAB (PROTONIX) PO SCH ×2 (09:41→20:58)
[2017-03-16] MEDS: predniSONE 20 MG TAB PO SCH (09:41)
[2017-03-16] MEDS: HEPARIN SOD (PORCINE) 5000 UNITS/ML VIAL SC SCH ×2 (09:42→20:58)
[2017-03-16] MEDS: ALBUTEROL SULFATE 2.5 MG/0.5 ML INH NEB SOLN NEB PRN ×2 (09:55→20:16)
--- NOTE | 2017-03-16 13:46 | IPNPDOC ---
Subjective Date Seen The patient was seen on 03/16/17. Subjective Chief Complaint/HPI The patient is a 72-year-old male admitted with a reason for visit of Pneumonia. 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 moist/pink, Pharynx Normal Neck Exam: Positive: Supple, Negative: JVD, thyromegaly Chest Exam: Positive: Normal air movement, Rales, Diminished (bibasilar), Negative: Wheezing Heart Exam: Positive: Rate Normal, Regular Rhythm, Normal S1, Normal S2, Negative: Murmurs, Rubs Telemetry: Positive: No significant arrhythmia Abdomen Exam: Positive: Normal bowel sounds, Soft, Negative: Tenderness, Hepatospenomegaly Extremity Exam: Positive: Edema (3+ L>R), Normal pulses, Negative: Clubbing, Cyanosis Skin Exam: Positive: Nl turgor and temperature, Negative: Rash, Breakdown Neuro Exam: Positive: Normal Gait, Normal Speech, Cranial Nerves 3-12 NL, Reflexes 2+ Psych Exam: Positive: Mental status NL Assessment /Plan Problems (1) Heart failure, systolic and diastolic, acute on chronic Status: Acute Problem Text: D2 Torsemide 100 mg po bid/marlon 50 (Takes Torsemide 60 mg po bid as outpatient. Continue 2 gram sodium diet with 1500 ml fluid restriction. 03/16 TW 79.8 kg-same as AW (but ?12 lbs < last OV 01/08 c Cate-then 1+ BLE edema, now 3+)-give metol 5 po x 1, check BLE DVT US and TTE (prior CASEY c ICD vegetation on 6M VKA-resolved by 06/2016 TTE), K 3.6-+ 20 BID (2) Lung mass Status: Acute Problem Text: 02/04/17 CT chest: (ordered by Dr. Archer) Extensive pneumonia right lung all three lobes. 2. Progressive noncalcified suspicious pulmonary nodule in the right upper lobe currently measuring 9.5 mm. This has grown in the interval since the September 2016 study. Malignancy cannot be excluded. (3) Pneumonia Status: Acute Problem Text: D2 levo (prior 3D Zosyn) 03/12 BCX x 2 NG 03/12 SCX; heavy STENOTROPHOMONAS MALTOPHILIA RX Route Dose Cost ----- ----- ----- - TRIMETHOPRIM/SULFAMETHOXAZOLE S PO Bactrim DS Bid $ 0.26 S IV 160mg TMP & 800mg SMXq6h $ 2.40 LEVOFLOXACIN S PO 250mg qd $ 5.75 S PO 500mg qd $ 6.70 S IV 500mg qd $ 32.74 mechanical soft diet with thin liquids. Will need modified barium swallow as an outpatient due to lack of flouro suite availability in facility (4) COPD (chronic obstructive pulmonary disease) Status: Chronic Problem Text: Duonebs q 6 hrs, albuterol nebs q 2 hrs prn Solumedrol Keep oxygen saturations between 88-92% Self regulated oxygen at home 2-3 LNC (5) Murphy esophagus Status: Chronic Problem Text: ? aspiration. Continue PPI (6) CAD (coronary artery disease) Status: Chronic Problem Specific Plan: Monitor Clinically (7) Physical deconditioning Status: Acute Problem Text: 03/13 PT not safe for dc Plan/VTE VTE Prophylaxis Ordered?: Yes (Heparin) VS, I&O, 24H, Fishbone Vital Signs/I&O Vital Signs Date Time Temp Pulse Resp B/P (MAP) Pulse Ox O2 Delivery O2 Flow Rate FiO2 03/16/17 11:47 97.5 93 18 131/64 (86) 96 Nasal Cannula 3.0 I&O- Last 24 Hours up to 6 AM 03/17/17 06:00 Intake Total 360 ml Output Total 600 ml Balance -240 ml Laboratory Data 24H LABS Laboratory Tests 2 03/15/17 14:43: Anion Gap 8, Glomerular Filtration Rate > 60.0, Blood Urea Nitrogen 37H, Creatinine 1.24, Sodium Level 138, Potassium Level 3.9, Chloride Level 96L, Carbon Dioxide Level 34H, Calcium Level 7.2L 03/16/17 04:54: Anion Gap 6L, Glomerular Filtration Rate > 60.0, Blood Urea Nitrogen 35H, Creatinine 1.13, Sodium Level 138, Potassium Level 3.6, Chloride Level 96L, Carbon Dioxide Level 36H, Calcium Level 6.8L, Nucleated Red Blood Cells % (auto ) 0.0, Phosphorus Level 2.9, Magnesium Level 2.2, Albumin 2.8L CBC/BMP Laboratory Tests 03/15/17 14:43 Calcium Level 7.2 L 03/16/17 04:54 Red Blood Count 4.23 L, Mean Corpuscular Volume 91.7, Mean Corpuscular Hemoglobin 28.8, Mean Corpuscular Hemoglobin Concent 31.4 L, Red Cell Distribution Width 15.3 H, Anion Gap 6 L Microbiology Microbiology 03/12/17 Blood Culture - Preliminary, Resulted No Growth after 72 hours. All specime... 03/12/17 Blood Culture - Preliminary, Resulted No Growth after 72 hours. All specime... 03/12/17 MRSA Screen - Final, Complete 03/12/17 Gram Stain - Final, Complete 03/12/17 Sputum Culture - Final, Complete Stenotrophomonas Maltophilia Yeast Like Organism Deondre Villela M.D. Mar 16, 2017 13:45
[2017-03-16] MEDS ORDERED: metOLazone 5 MG TAB PO ONE (14:15)
[2017-03-16] MEDS: POTASSIUM CHLORIDE 10 MEQ SR TABLET PO SCH ×2 (15:23→20:59)
[2017-03-16] MEDS: ATORVASTATIN 20 MG TAB PO SCH (20:58)
[2017-03-16] MEDS: FAMOTIDINE 20 MG TAB PO SCH (20:58)
[2017-03-17 03:30] VITALS: BP 100/62
[2017-03-17] MEDS: traMADol 50 MG TAB PO PRN (03:33)
[2017-03-17 05:13] LABS: MEAN CORPUSCULAR HGB CONC 32.3 g/dl (32.0-36.5); MEAN CORPUSCULAR VOLUME 89.7 fl (80.0-96.0); PLATELET COUNT, AUTOMATED 165 10^3/uL (150-450); RED CELL DISTRIBUTION WIDTH 15.3 % (11.5-14.5); WHITE BLOOD COUNT 17.9 10^3/uL (4.0-10.0)
[2017-03-17 05:30] LABS: CALCIUM LEVEL 7.6 MG/DL (8.8-10.2); CREATININE FOR GFR 1.35 MG/DL (0.70-1.30); MAGNESIUM LEVEL 2.2 MG/DL (1.8-2.4); POTASSIUM SERUM 3.9 MEQ/L (3.5-5.1)
[2017-03-17] MEDS: LevoFLOXacin 500 MG TABLET PO SCH (06:06)
[2017-03-17] MEDS: LEVOTHYROXINE 50MCG TABLET (0.05MG) PO SCH (06:07)
[2017-03-17] MEDS: SLF 3 ML SYR IV SCH (06:11)
[2017-03-17] MEDS: TIOTROPIUM INHALER/CAPSULE (SPIRIVA) INH SCH (07:23)
[2017-03-17] MEDS: ADVAIR HFA 230/21MCG INHALER INH SCH (07:23)
[2017-03-17] MEDS: ALBUTEROL SULFATE 2.5 MG/0.5 ML INH NEB SOLN NEB PRN (07:23)
--- NOTE | 2017-03-17 07:48 | REP ---
BILATERAL LOWER EXTREMITY DUPLEX VEINS: HISTORY: Rule out deep venous thrombosis. RIGHT LOWER EXTREMITY: There are no filling defects in the deep venous system. The deep venous system is patent. IMPRESSION: There is no deep venous thrombosis. LEFT LOWER EXTREMITY: There are no filling defects in the deep venous system. The deep venous system is patent. IMPRESSION: There is no deep venous thrombosis. Signed by Jason Quezada MD 03/17/2017 07:49 A
[2017-03-17 07:55] VITALS: BP 132/82
[2017-03-17] MEDS: NYSTATIN 100,000 UNITS/GM TOPICAL PWD 15 GM TOP SCH (09:00)
[2017-03-17 09:23] VITALS: BP 130/80
[2017-03-17] MEDS: TORSEMIDE 100 MG TAB PO SCH (09:35)
[2017-03-17] MEDS: POTASSIUM CHLORIDE 10 MEQ SR TABLET PO SCH (09:35)
[2017-03-17] MEDS: predniSONE 20 MG TAB PO SCH (09:36)
[2017-03-17] MEDS: TAMSULOSIN 0.4 MG CAP PO SCH (09:36)
[2017-03-17] MEDS: SPIRONOLACTONE 50 MG TAB PO SCH (09:36)
[2017-03-17] MEDS: ASPIRIN 81 MG ENTERIC TAB PO SCH (09:36)
[2017-03-17] MEDS: BISOPROLOL FUMARATE 10 MG TAB PO SCH (09:36)
[2017-03-17] MEDS: PANTOPRAZOLE 40MG TAB (PROTONIX) PO SCH (09:36)
[2017-03-17] MEDS: HEPARIN SOD (PORCINE) 5000 UNITS/ML VIAL SC SCH (09:37)
--- NOTE | 2017-03-17 09:40 | IPNPDOC ---
Subjective Date Seen The patient was seen on 03/17/17. Subjective Chief Complaint/HPI The patient is a 72-year-old male admitted with a reason for visit of Pneumonia. Events since last encounter Patient seen at bedside this morning. He was lying down on the hospital bed, his legs were elevated with pillows. Patient reports that his legs feel comfortable, he feels that swelling has improved. Denies any dyspnea today. Patient was working with physical therapy, he was cleared to be discharged home on 03/14/2017. Constitutional: Denies: Chills, Fever, Night Sweats Pulmonary: Denies: Dyspnea, Cough Cardiovascular: Denies: Chest Pain, Palpitations, Orthopnea, Paroxysmal Noc. Dyspnea, Lt Headedness Gastrointestinal: Denies: Nausea, Vomiting, Abdominal Pain, Diarrhea, Constipation Genitourinary: Denies: Dysuria, Frequency, Incontinence, Retention Objective Physical Examination General Exam: Positive: Alert, No Acute Distress Eye Exam: Positive: PERRLA, Conjunctiva & lids normal, EOMI, Negative: Sclera icteric ENT Exam: Positive: Atraumatic, Mucous membr. moist/pink, Pharynx Normal Neck Exam: Positive: Supple, Negative: JVD, thyromegaly Chest Exam: Positive: Normal air movement, Rales, Diminished (bibasilar), Negative: Wheezing Heart Exam: Positive: Rate Normal, Regular Rhythm, Normal S1, Normal S2, Negative: Murmurs, Rubs Telemetry: Positive: No significant arrhythmia Abdomen Exam: Positive: Normal bowel sounds, Soft, Negative: Tenderness, Hepatospenomegaly Extremity Exam: Positive: Edema (3+ L>R), Normal pulses, Negative: Clubbing, Cyanosis Skin Exam: Positive: Nl turgor and temperature, Negative: Rash, Breakdown Neuro Exam: Positive: Normal Gait, Normal Speech, Cranial Nerves 3-12 NL, Reflexes 2+ Psych Exam: Positive: Mental status NL Assessment /Plan Problems (1) Heart failure, systolic and diastolic, acute on chronic Status: Acute Problem Text: 03/17: Bilateral lower extremity ultrasound showed no DVT. TTE completed yesterday, results pending. Weight stable as of last night. Yesterday , net output greater than 2000 mL D3 Torsemide 100 mg po bid/marlon 50 (Takes Torsemide 60 mg po bid as outpatient. Continue 2 gram sodium diet with 1500 ml fluid restriction. 03/16 TW 79.8 kg-same as AW (but ?12 lbs < last OV 01/08 c Cate-then 1+ BLE edema, now 3+)-give metol 5 po x 1, check BLE DVT US and TTE (prior CASEY c ICD vegetation on 6M VKA-resolved by 06/2016 TTE), K 3.6-+ 20 BID (2) Lung mass Status: Acute Problem Text: 02/04/17 CT chest: (ordered by Dr. Archer) Extensive pneumonia right lung all three lobes. 2. Progressive noncalcified suspicious pulmonary nodule in the right upper lobe currently measuring 9.5 mm. This has grown in the interval since the September 2016 study. Malignancy cannot be excluded. (3) Pneumonia Status: Acute Problem Text: D3 levo (prior 3D Zosyn) 03/12 BCX x 2 NG 03/12 SCX; heavy STENOTROPHOMONAS MALTOPHILIA RX Route Dose Cost ----- ----- ----- - TRIMETHOPRIM/SULFAMETHOXAZOLE S PO Bactrim DS Bid $ 0.26 S IV 160mg TMP & 800mg SMXq6h $ 2.40 LEVOFLOXACIN S PO 250mg qd $ 5.75 S PO 500mg qd $ 6.70 S IV 500mg qd $ 32.74 mechanical soft diet with thin liquids. Will need modified barium swallow as an outpatient due to lack of flouro suite availability in facility (4) COPD (chronic obstructive pulmonary disease) Status: Chronic Problem Text: Duonebs q 6 hrs, albuterol nebs q 2 hrs prn Solumedrol Keep oxygen saturations between 88-92% Self regulated oxygen at home 2-3 LNC (5) Murphy esophagus Status: Chronic Problem Text: ? aspiration. Continue PPI (6) CAD (coronary artery disease) Status: Chronic Problem Specific Plan: Monitor Clinically (7) Physical deconditioning Onset Date: ~ 03/2017 Status: Acute Problem Text: 03/14 PT safe for discharge 03/13 PT not safe for dc Plan/VTE VTE Prophylaxis Ordered?: Yes (Heparin) VS, I&O, 24H, Fishbone Vital Signs/I&O Vital Signs Date Time Temp Pulse Resp B/P (MAP) Pulse Ox O2 Delivery O2 Flow Rate FiO2 03/17/17 07:55 97.0 86 20 132/82 (99) 100 Nasal Cannula 3.0 I&O- Last 24 Hours up to 6 AM 03/18/17 06:00 Intake Total 350 ml Output Total 375 ml Balance -25 ml Laboratory Data 24H LABS Laboratory Tests 2 03/17/17 04:44: Nucleated Red Blood Cells % (auto) 0.0, Blood Urea Nitrogen 40H, Creatinine 1.35H, Sodium Level 136, Potassium Level 3.9, Chloride Level 93L, Carbon Dioxide Level 34H, Anion Gap 9, Glomerular Filtration Rate 55.0, Calcium Level 7.6L, Phosphorus Level 4.0#, Magnesium Level 2.2, Albumin 3.0L CBC/BMP Laboratory Tests 03/17/17 04:44 Red Blood Count 4.28 L, Mean Corpuscular Volume 89.7, Mean Corpuscular Hemoglobin 29.0, Mean Corpuscular Hemoglobin Concent 32.3, Red Cell Distribution Width 15.3 H, Anion Gap 9 Microbiology Microbiology 03/12/17 Blood Culture - Preliminary, Resulted No Growth after 72 hours. All specime... 03/12/17 Blood Culture - Preliminary, Resulted No Growth after 72 hours. All specime... 03/12/17 MRSA Screen - Final, Complete 03/12/17 Gram Stain - Final, Complete 03/12/17 Sputum Culture - Final, Complete Stenotrophomonas Maltophilia Yeast Like Organism GME ATTESTATION GME ATTESTATION My preceptor for this patient encounter was physically present in the building during the encounter and was fully available. As needed, all aspects of the patient interview, examination, medical decision making process, and medical care plan development were reviewed and approved by the preceptor. Preceptor is aware and concurs with the plan as stated in the body of this note and will attest to such by his/her cosignature. ANA MARÍA CHRISTOPHER DO Mar 17, 2017 09:40
[2017-03-17] MEDS ORDERED: LEVA1TAB2 PO (11:17)
[2017-03-17] MEDS ORDERED: PRED10TA2 PO (11:17)
--- NOTE | 2017-03-19 20:26 | ECHO ---
DATE OF PROCEDURE: 03/16/2017 REFERRING PHYSICIAN: Dr. Deondre Villela The study was performed 03/16/2017 for indication congestive heart failure (CHF), history of implantable cardioverter defibrillator (ICD) vegetation. The patient measures 175 cm and weighs 80 kg. DIMENSIONS: IVS: 1.3 LV: 4.3 LVPW: 1.3 LA: 3.6 Aorta: 3.6 FINDINGS: The study is a very limited technical quality with poor visualization. Left ventricle is of normal size. Mild left ventricular hypertrophy is noted. There appeared to be distal septal wall motion abnormality, possibly related to pacemaker driven rhythm. But overall left ventricular (LV) systolic function is either normal or near normal. I certainly cannot reliably rule out additional wall motion abnormalities. Right ventricle does not appear dilated. Both atria are at least mildly enlarged. There is an echo artifact in right-sided heart chambers, consistent with ICD leads. The visualization was poor, so I certainly cannot comment whether any vegetation is noted. Aortic valve is sclerotic but appears to have normal mobility. There are also degenerative abnormalities of mitral valve with prominent mitral annular calcifications at the base of posterior mitral leaflet. Tricuspid and pulmonic valves were poorly seen but grossly appear normal. No pericardial effusion is noted. Inferior vena cava is dilated. Aortic root appears normal. Aortic arch and abdominal aorta were not well seen. Doppler interrogation of aortic valve reveals no significant stenosis or insufficiency. There is mild mitral insufficiency and trivial mitral stenosis with mean gradient 2 mmHg. There is mild tricuspid insufficiency. Estimated pulmonary artery pressure is probably in low 40s, which would correspond to moderate pulmonary hypertension. Pulmonic valve is functionally competent. Mitral inflow pattern and tissue Doppler imaging of mitral annulus revealed grade 1 diastolic dysfunction (mitral E flow velocity 73 cm/s, A velocity 109 cm/s, E prime septal 10.3 and E prime lateral 7.6). CONCLUSIONS: 1. The study is of rather limited technical quality. 2. Normal LV size with mild left ventricular hypertrophy (LVH), septal wall motion abnormality and overall preserved LV systolic function, and grade 1 diastolic dysfunction. 3. Aortic sclerosis but no stenosis or insufficiency. 4. Degenerative abnormalities of mitral valve with mild insufficiency and trivial stenosis. 5. High central venous pressure and at least moderate pulmonary hypertension. 6. ICD lead apparent in right-sided heart chambers. COMMENT: Subacute bacterial endocarditis (SBE) prophylaxis is recommended. Unfortunately this study does not provide adequate resolution to comment whether any vegetation of the lead is present or not.
== END 2017-03-17 14:07 | disposition home or self-care (01) | DRG 291 ==
LOC: M ED 13:49 → M ED INP 17:13 → M PCU 03-13 01:25
PROVIDERS: ADMIT Internal Medicine; ATTEND Family Medicine
DX: I11.0 Hypertensive heart disease with heart failure (principal); J16.8 Pneumonia due to other specified infectious organisms; J96.11 Chronic respiratory failure with hypoxia; I50.33 Acute on chronic diastolic (congestive) heart failure; J44.9 Chronic obstructive pulmonary disease, unspecified; M54.5 Low back pain; H91.90 Unspecified hearing loss, unspecified ear; N40.0 Benign prostatic hyperplasia without lower urinary tract symptoms; I25.10 Atherosclerotic heart disease of native coronary artery without angina pectoris; I27.20 Pulmonary hypertension, unspecified; K22.70 Barrett's esophagus without dysplasia; D64.9 Anemia, unspecified; I27.81 Cor pulmonale (chronic); E03.9 Hypothyroidism, unspecified; R91.1 Solitary pulmonary nodule; Z91.040 Latex allergy status; Z91.013 Allergy to seafood; Z88.5 Allergy status to narcotic agent; Z88.8 Allergy status to other drugs, medicaments and biological substances; J84.10 Pulmonary fibrosis, unspecified; Z91.11 Patient's noncompliance with dietary regimen; Z95.810 Presence of automatic (implantable) cardiac defibrillator; Z79.82 Long term (current) use of aspirin; Z79.899 Other long term (current) drug therapy

== ENCOUNTER 2017-04-16 11:38 | Inpatient (IN) | payer MEDICARE ==
[~2017-04-16] VITALS: Ht 175.3 cm; Wt 88.1 kg
[~2017-04-16 11:38] MED LIST changes: +LEVA1TAB2 PO; +LEVO50TA45 PO
[2017-04-16] MEDS ORDERED: NS 1,000 ML IV ONE (12:00)
--- NOTE | 2017-04-16 12:32 | REP ---
Portable chest, 12:16 p.m.: Comparison is 03/12/2017. There is diffuse bilateral interstitial coarsening has significantly increased compatible with acute interstitial infiltrates. Cardiac size is normal. There is a triple lead biventricular pacer / AICD, unchanged. Impression: New interstitial infiltrates. Signed by David Pantoja MD 04/16/2017 12:24 P
[2017-04-16 12:36] LABS: ABG BASE EXCESS 2.9 (-2.0-2.0); ABG HCO3 27.6 MEQ/L (22.0-26.0); ABG PARTIAL PRESSURE CO2 43.3 mmHg (35.0-45.0); ABG PARTIAL PRESSURE O2 65.3 mmHg (75.0-100.0); ABG STANDARD HCO3 26.9 MEQ/L (22.0-26.0); ABG pH (ARTERIAL) 7.423 UNITS (7.350-7.450)
[2017-04-16 13:10] LABS: BASO # 0.1 10^3/uL (0.0-0.2); BASO % 1.1 % (0.0-1.0); EOS # 0.3 10^3/uL (0.0-0.50); EOS % 3.5 % (0.0-3.0); IMMATURE GRANULOCYTE % 4.5 % (0-0); LYMPH # 1.2 10^3/uL (1.5-4.5); LYMPH % 13.1 % (24.0-44.0); MEAN CORPUSCULAR HEMOGLOBIN 27.8 pg (27.0-33.0); MEAN CORPUSCULAR HGB CONC 31.2 g/dl (32.0-36.5); MEAN CORPUSCULAR VOLUME 88.9 fl (80.0-96.0); MONO # 1.6 10^3/uL (0.0-0.8); MONO % 17.9 % (0.0-5.0); NEUTROPHILS # 5.4 10^3/uL (1.8-7.7); NEUTROPHILS % 59.9 % (36.0-66.0); PLATELET COUNT, AUTOMATED 422 10^3/uL (150-450); RED CELL DISTRIBUTION WIDTH 15.4 % (11.5-14.5)
[2017-04-16 13:26] LABS: INR 0.96
[2017-04-16 13:37] LABS: ALBUMIN 2.5 GM/DL (3.2-5.2); ALBUMIN/GLOBULIN RATIO 0.78 (1.00-1.93); ALKALINE PHOSPHATASE 115 U/L (45-117); ALT/SGPT 13 U/L (12-78); AMYLASE 48 U/L (25-115); ANION GAP 9 MEQ/L (8-16); AST/SGOT 17 U/L (7-37); BILIRUBIN,DIRECT 0.1 MG/DL (0.0-0.2); BILIRUBIN,TOTAL 0.3 MG/DL (0.2-1.0); BLOOD UREA NITROGEN 24 MG/DL (7-18); CALCIUM LEVEL 8.2 MG/DL (8.8-10.2); CARBON DIOXIDE LEVEL 31 MEQ/L (21-32); CHLORIDE LEVEL 101 MEQ/L (98-107); CREATININE FOR GFR 1.62 MG/DL (0.70-1.30); GLOMERULAR FILTRATION RATE 44.6 (>42); GLUCOSE, FASTING 97 MG/DL (83-110); POTASSIUM SERUM 4.6 MEQ/L (3.5-5.1); SODIUM LEVEL 141 MEQ/L (136-145); TOTAL PROTEIN 5.7 GM/DL (6.4-8.2)
[2017-04-16] MEDS ORDERED: FUROSEMIDE 40 MG/4 ML VIAL (J1940) IV ONE (14:15)
[2017-04-16] MEDS ORDERED: ALBUTEROL SULFATE 2.5 MG/0.5 ML INH NEB SOLN INH PRN (15:15)
[2017-04-16] MEDS ORDERED: SIMETHICONE 80 MG CHEW TAB PO PRN (15:15)
[2017-04-16] MEDS ORDERED: SODIUM CHLORIDE NASAL 0.65% SPRAY BTL (OCEAN) PRN (15:15)
[2017-04-16] MEDS ORDERED: ALBUTEROL 90 MCG/ACT 8GM HFA INHALER INH PRN (15:15)
[2017-04-16] MEDS ORDERED: NITROGLYCERIN 0.4 MG SUBL TABLET SL PRN (15:15)
--- NOTE | 2017-04-16 15:36 | REP ---
CT of the abdomen and pelvis without IV or bowel contrast: Comparison is 01/10/2011. There is dependent atelectasis in the visualized lung lazaro. The unenhanced hepatic parenchyma is homogeneous. The unenhanced gallbladder, pancreas and spleen are unremarkable. There is a hiatal hernia. This is unchanged. There is a 1 cm low-density right adrenal nodule, unchanged. The density of the nodule is -87 Hounsfield units. This is compatible with a benign adrenal adenoma. The left adrenal is unremarkable. The kidneys are unremarkable. Abdominal aorta is unremarkable. The small bowel is fluid-filled and upper normal diameter. No small bowel distension or obstruction. The large bowel is nondistended. There are occasional diverticula in the sigmoid colon. However, there is no diverticulitis. Pelvis: The bladder is unremarkable. There is no adenopathy or ascites. Impression: There is no cholelithiasis. Gallbladder is unremarkable. There is no biliary duct dilatation. There is a stable small right adrenal adenoma, unchanged. The small bowel is fluid-filled and upper normal size, not distended. Large bowel is unremarkable except for sigmoid diverticulosis without diverticulitis. There is no ascites or adenopathy. No hydronephrosis. Abdominal aorta is unremarkable. Signed by David Pantoja MD 04/16/2017 03:27 P
--- NOTE | 2017-04-16 15:53 | REP ---
CT CHEST WITHOUT IV CONTRAST: CT chest is performed without IV contrast. Comparison made with multiple prior exams, most recently 02/04/2017. There is a nodular opacity in the right apex which is stable compared to the recent CT exam. It measures approximately 9 mm in maximum diameter. There are mild emphysematous changes in both upper lobes. There are diffuse fibrotic changes noted appearing similar to the prior study. These are somewhat confluent in the lower lobes bilaterally. There is improvement of parenchymal opacity in the right middle and lower lobes compared to the prior study with mild residual bibasilar fibroatelectatic change remaining. There is mild bronchiectasis in both lower lobes. No significant adenopathy is seen. The heart does not appear to be significantly enlarged. There is no pleural or pericardial effusion. There are moderate atherosclerotic calcifications of the thoracic aorta with ectasia of the ascending thoracic aorta up to 4 cm in diameter. There are degenerative changes of the spine with multiple compression deformities of the lower thoracic vertebral bodies similar to prior exam. IMPRESSION: No change in right upper lobe nodular opacity compared to the prior study of 02/04/2017. Previously noted right lung consolidation appears to have essentially resolved with bilateral lower lobe fibroatelectatic changes now present, appearing similar to the more remote exams. No pleural effusion. Signed by David Jameson MD 04/17/2017 09:05 A
--- NOTE | 2017-04-16 17:20 | REP ---
Bilateral lower extremity deep vein duplex ultrasound: Comparison is 03/16/2017. The deep veins demonstrate normal compression, normal Doppler color flow and normal Doppler waveforms with respiration and augmentation from the popliteal vein to the common femoral vein. Impression: There is no deep vein thrombus n the right or left lower extremity. The study is technically difficult because of extremity edema and patient pain tolerance. Signed by David Pantoja MD 04/16/2017 05:12 P
[2017-04-16] MEDS: FUROSEMIDE 40 MG/4 ML VIAL (J1940) IV SCH ×2 (18:00→23:35)
--- NOTE | 2017-04-16 18:01 | HPEPDOC ---
[facility] Medical History & Physical History and Physical Primary care provider: Dr. Archer Date of Admission: 04/16/2017 Attending: Dr. Donato CHIEF COMPLAINT: Shortness of breath and bilateral leg swelling HISTORY OF PRESENT ILLNESS: Mr. Murphy is a 72-year-old male who was brought to the emergency department via ambulance. He states that his legs have been getting progressively larger over the past week or so. He also states he has been experiencing increasing shortness of breath since that time as well. Notably, he is a poor historian and is unsure about the timing of most of these events. Nevertheless, he has been getting progressively worse and his roommate/good friend called the ambulance and had him transported to the emergency department for further evaluation. ALLERGIES: Hydrocodone, latex, shellfish, sulfa PAST MEDICAL HISTORY: COPD Chronic low back pain Chronic hypoxic respiratory failure requiring 2.5 L of oxygen at home Hearing loss Benign prostatic hypertrophy Coronary artery disease Cardiomyopathy Hypertensive heart disease Biventricular ICD with history of vegetation on ICD lead Pulmonary hypertension Congestive heart failure with preserved ejection fraction Murphy's esophagus Chronic anemia Elevated The light chain Cor pulmonale Hypothyroidism T10 compression fracture Diverticulosis Lung nodule on CT found 09/2016 PAST SURGICAL HISTORY: ICD placement 2004 ICD replacement 2009 Right inguinal hernia repair Kidney stone removal 1979 Colonoscopy 2010 EGD 2012 SOCIAL HISTORY: He does live at home, he is accompanied by a good friend/roommate. He does continue to smoke half pack per day. Denies alcohol use, does not use illicit drugs. FAMILY HISTORY: Father had heart disease, he has one son who is healthy. Mother's medical history is unknown REVIEW OF SYSTEMS: Constitutional: Patient denies fevers, chills, night sweats, he does believe that he has gained some fluid weight, but he does not weigh himself at home. HEENT: Patient denies blurred or double vision, transient visual disturbances, postnasal drip, epistaxis, sore throat, difficulty chewing or swallowing food. Cardiovascular: Patient denies chest discomfort/pain, palpitations. He has had exertional dyspnea for many years now, he does suffer from orthopnea and has been sleeping in a recliner for a few years as well. He does have chronic bilateral lower extremity swelling which normally goes down when he props his feet up, however they have not been improving for the past 1 week or so. Respiratory: Patient admits to chronic dyspnea, wheezing, nonproductive cough. denies hemoptysis, sputum production. Gastrointestinal: Patient denies nausea, vomiting, diarrhea, constipation, abdominal pain, melena, hematochezia, hematemesis, jaundice. PHYSICAL EXAMINATION: General: Awake, alert, oriented. He is in no acute distress at this time. He is not using accessory muscles to breathe. HEENT: Head normocephalic atraumatic, pupils equally reactive to light and accommodation, conjunctiva are pink, sclera are nonicteric, buccal mucosa is pink and moist with no lesions in the oropharynx. Hearing is grossly intact to conversation. He has upper and lower dentures. Respiratory: Dullness to percussion at the bases, decreased breath sounds at the bases as well. Otherwise he does have expiratory wheeze, with prolonged expiratory phase Cardiovascular: Distant heart sounds, they do appear to be regular in rate and rhythm. Faint 1/6 systolic murmur.. Abdomen: Obese, Soft, nontender, no hepatosplenomegaly appreciated. Bowel sounds present. Extremities: 2-3+ pitting edema up to the knees. He also does have bilateral lower extremity erythema and skin changes consistent with chronic venous stasis dermatitis. ELECTROCARDIOGRAM: Continues to have ventricular pacemaker pattern, unchanged from prior on 2016 IMAGING: Chest x-ray does show new interstitial infiltrates, however the CT of the chest was read as lower lobe fibrotic atelectatic changes appearing similar to the more remote exams. No pleural effusion. Of note, his previously noted right lung consolidation appears to have essentially resolved, and there is no change in the right upper lobe nodular opacity. Please see full report for further details. ASSESSMENT: 1. Acute right heart failure, cor pulmonale 2. Congestive heart failure with preserved ejection fraction 3. Severe COPD 4. Chronic hypoxic respiratory failure requiring 2.5 L of oxygen at home 5. Coronary artery disease 6. Cardiomyopathy 7. Hypertensive heart disease 8. Biventricular ICD with history of vegetation on ICD lead 9. Pulmonary hypertension 10. Chronic anemia 11. Hypothyroidism 12. DVT prophylaxis PLAN: All the patient does have some soft pressures, I suspect that with the administration of diuretics his cardiac output will improve, therefore will initiate treatment for his right heart failure with furosemide 40 mg IV every 6. He will be admitted to the PCU, if his pressures do drop, the addition of dobutamine may be necessary. We will continue to monitor cardiac markers every 8 hours 3. He does have chronic findings on CT and x-ray of the chest, however he does not have a leukocytosis or fever or productive cough, therefore we will hold off on antibiotic administration at this time. Ultrasound of bilateral lower extremities was performed and no clot was found, no additional treatment will be initiated regarding his chronic venous stasis dermatitis at this time, he will likely benefit from the application of unna boots or other long-term outpatient follow-up. Otherwise, we will continue with the remainder of his home medications at their usual dose as listed below. My preceptor for this patient encounter was physically present in the building during the encounter and was fully available. As needed, all aspects of the patient interview, examination, medical decision making process, and medical care plan development were reviewed and approved by the preceptor. Preceptor is aware and concurs with the plan as stated in the body of this note and will attest to such by his/her cosignature. Vital Signs Vital Signs Date Time Temp Pulse Resp B/P (MAP) Pulse Ox O2 Delivery O2 Flow Rate FiO2 04/16/17 15:15 72 92 04/16/17 14:30 106/59 (75) 04/16/17 12:53 98.4 21 04/16/17 11:55 Nasal Cannula 04/16/17 11:55 3.0 Laboratory Data Labs 24H Laboratory Tests 2 04/16/17 12:28: Blood Gas Bicarbonate Standard 26.9H, Arterial Blood pH 7.423, Arterial Blood Partial Pressure CO2 43.3, Arterial Blood Partial Pressure O2 65.3L, Arterial Blood Total CO2 29.0, Arterial Blood HCO3 27.6H, Arterial Blood Base Excess 2.9H , Arterial Blood Oxygen Saturation 92.6L 04/16/17 13:00: Immature Granulocyte % (Auto) 4.5H, White Blood Count 9.0, Red Blood Count 3.89L , Hemoglobin 10.8L, Hematocrit 34.6L, Mean Corpuscular Volume 88.9, Mean Corpuscular Hemoglobin 27.8, Mean Corpuscular Hemoglobin Concent 31.2L, Red Cell Distribution Width 15.4H, Platelet Count 422, Neutrophils (%) (Auto) 59.9, Lymphocytes (%) (Auto) 13.1L, Monocytes (%) (Auto) 17.9H, Eosinophils (%) (Auto ) 3.5H, Basophils (%) (Auto) 1.1H, Neutrophils # (Auto) 5.4, Lymphocytes # (Auto ) 1.2L, Monocytes # (Auto) 1.6H, Eosinophils # (Auto) 0.3, Basophils # (Auto) 0.1, Immature Granulocyte # (Auto) 0.4H, Nucleated Red Blood Cells % (auto) 0.0 , Prothrombin Time 12.8, Prothromb Time International Ratio 0.96, Activated Partial Thromboplast Time 32.3, Anion Gap 9, Glomerular Filtration Rate 44.6, Lactic Acid Level 1.8, Calcium Level 8.2L, Aspartate Amino Transf (AST/SGOT) 17 , Alanine Aminotransferase (ALT/SGPT) 13, Alkaline Phosphatase 115, Total Bilirubin 0.3, Direct Bilirubin 0.1, Total Creatine Kinase 34L, Creatine Kinase MB 1.0, Creatine Kinase MB Relative Index 2.94, Troponin I < 0.02, C-Reactive Protein, Quantitative 0.76H, MC-Mnj-[id number]-Type Natriuretic Peptide 578H, Total Protein 5.7L, Albumin 2.5L, Albumin/Globulin Ratio 0.78L, Amylase Level 48 04/16/17 16:00: Urine Appearance CLEAR, Urine Color YELLOW, Urine pH 5.0, Urine Specific [place] 1.006, Urine Protein NEGATIVE, Urine Glucose (UA) NEGATIVE, Urine Ketones NEGATIVE, Urine Urobilinogen 0.2, Urine Bilirubin NEGATIVE, Urine Leukocyte Esterase NEGATIVE, Urine Blood NEGATIVE, Urine Nitrite NEGATIVE, Urine WBC (Auto) 1, Urine RBC (Auto) 3, Urine Hyaline Casts (Auto) 4, Urine Bacteria (Auto) NEGATIVE, Urine Squamous Epithelial Cells 0, Urine Mucus (Auto) SMALL, Urine Sperm (Auto) SMALLH 04/16/17 17:45: CBC/BMP Laboratory Tests 04/16/17 13:00 Red Blood Count 3.89 L, Mean Corpuscular Volume 88.9, Mean Corpuscular Hemoglobin 27.8, Mean Corpuscular Hemoglobin Concent 31.2 L, Red Cell Distribution Width 15.4 H, Neutrophils (%) (Auto) 59.9, Lymphocytes (%) (Auto) 13.1 L, Monocytes (%) (Auto) 17.9 H, Eosinophils (%) (Auto) 3.5 H, Basophils (% ) (Auto) 1.1 H, Neutrophils # (Auto) 5.4, Lymphocytes # (Auto) 1.2 L, Monocytes # (Auto) 1.6 H, Eosinophils # (Auto) 0.3, Basophils # (Auto) 0.1 Microbiology Microbiology 04/16/17 Blood Culture, Received Pending 04/16/17 Blood Culture, Received Pending 04/16/17 Influenza Virus Type A Antigen - Final, Complete 04/16/17 Influenza Virus Type B Antigen - Final, Complete Home Medications Scheduled Alendronate Sodium (Alendronate Sodium) 70 Mg Tab, 70 MG PO QWEEK SATURDAY Aspirin (Aspir-81) 81 Mg Tab, 81 MG PO DAILY Atorvastatin Calcium (Atorvastatin Calcium) 80 Mg Tab, 80 MG PO QHS Bisoprolol Fumarate (Zebeta) 10 Mg Tab, 10 MG PO DAILY Esomeprazole Magnesium Trihydr (Nexium) 40 Mg Cap, 40 MG PO BID Levothyroxine Sodium (Levoxyl) 50 Mcg Tab, 50 MCG PO DAILY Ranitidine HCl (Ranitidine HCl) 300 Mg Tab, 1 TAB PO QHS Salmeterol/Fluticasone (Advair Hfa 230-21 Mcg/Act) 1 Aer Aer, 2 PUFF INH BID Spironolactone (Spironolactone) 50 Mg Tab, 50 MG PO DAILY Tamsulosin Hydrochloride (Flomax) 0.4 Mg Cap, 0.4 MG PO DAILY Tiotropium [place] Monohydrate (Spiriva Handihaler) 18 Mcg Cap, 1 CAP INH DAILY Torsemide (Torsemide) 20 Mg Tab, 60 MG PO BID Scheduled PRN (Saline Nasal [place]) 0.65 % Spr, 2 SPRAYS NA QID PRN for NASAL DRYNESS (Diclofenac Sodium) 1 % Gel, 1 DOSE TD QID PRN for PAIN APPLY TO NECK AND UPPER BACK Albuterol Sulfate (Albuterol Sulfate) 2.5 Mg/3 Ml Nebu, 2.5 MG INH Q4H PRN for SHORTNESS OF BREATH Albuterol Sulfate (Proair Hfa) 108 Mcg/Act Aer, 2 PUFF INH Q4H PRN for SHORTNESS OF BREATH Nitroglycerin (Nitrostat) 0.4 Mg Subl, 0.4 MG SL NITRO PRN for CHEST PAIN Simethicone (Gas-X) 80 Mg Chw, 160 MG PO PRN PRN for GAS PAIN Tramadol HCl (Tramadol HCl) 50 Mg Tab, 50 MG PO TID PRN for PAIN Allergies Coded Allergies: Hydrocodone (Unverified Allergy, Severe, anaphylaxis, 10/13/15) Latex (Verified Allergy, Unknown, 08/05/12) Shellfish Allergy (Verified Allergy, Unknown, 08/05/12) Sulfa Drugs (Verified Allergy, Unknown, 08/05/12) ANDREW BAHENA DO Apr 16, 2017 18:01
[2017-04-16 23:12] VITALS: BP 123/76
[2017-04-16] MEDS: PANTOPRAZOLE 40MG TAB (PROTONIX) PO SCH (23:34)
[2017-04-16] MEDS: ATORVASTATIN 20 MG TAB PO SCH (23:34)
[2017-04-16] MEDS: HEPARIN SOD (PORCINE) 5000 UNITS/ML VIAL SQ SCH (23:36)
[2017-04-17] MEDS ORDERED: ACETAMINOPHEN 500 MG TAB PO PRN (00:30)
[2017-04-17] MEDS ORDERED: traMADol 50 MG TAB PO PRN (00:30)
[2017-04-17] MEDS: ADVAIR HFA 230/21MCG INHALER INH SCH ×3 (00:40→20:54)
[2017-04-17 04:00] VITALS: BP 94/61
[2017-04-17] MEDS: FUROSEMIDE 40 MG/4 ML VIAL (J1940) IV SCH ×2 (06:00→11:36)
[2017-04-17 06:03] LABS: MEAN CORPUSCULAR HEMOGLOBIN 27.8 pg (27.0-33.0); MEAN CORPUSCULAR HGB CONC 31.4 g/dl (32.0-36.5); MEAN CORPUSCULAR VOLUME 88.5 fl (80.0-96.0); PLATELET COUNT, AUTOMATED 434 10^3/uL (150-450); RED CELL DISTRIBUTION WIDTH 15.2 % (11.5-14.5); WHITE BLOOD COUNT 8.4 10^3/uL (4.0-10.0)
[2017-04-17 06:17] LABS: CALCIUM LEVEL 8.5 MG/DL (8.8-10.2); CREATININE FOR GFR 1.68 MG/DL (0.70-1.30); GLOMERULAR FILTRATION RATE 42.7 (>42)
[2017-04-17] MEDS: LEVOTHYROXINE 50MCG TABLET (0.05MG) PO SCH (06:53)
[2017-04-17 08:00] VITALS: BP 94/55
[2017-04-17] MEDS ORDERED: TIOTROPIUM INHALER/CAPSULE (SPIRIVA) INH SCH (08:00)
[2017-04-17] MEDS: SPIRONOLACTONE 50 MG TAB PO SCH (08:42)
[2017-04-17] MEDS: BISOPROLOL FUMARATE 10 MG TAB PO SCH (08:43)
--- NOTE | 2017-04-17 09:05 | IPNPDOC ---
Subjective Date Seen The patient was seen on 04/17/17. Subjective Chief Complaint/HPI The patient is a 72-year-old male admitted with a reason for visit of Acute Exacerbation Of Chf,Diastolic Chf. Events since last encounter Lasix held this morning due to softer BP. received total of Lasix 40 mg x 1. - 600 ml. Patient admits to not following 1500 ml fluids restriction or monitoring sodium levels. states taking medications at home: torsemide 60 mg po bid and Aldactone 50 mg po daily. Has new RX for Jobst stockings given by cardiology provider to wear on BLE. Non-compliant with use. Constitutional: Denies: Chills, Fever, Night Sweats ENT: Denies: Head Aches, Ear Pain, Dysphagia Skin: Denies: Rash, Lesions, Breakdown Pulmonary: Reports: Dyspnea Cardiovascular: Reports: Edema, Denies: Chest Pain, Palpitations, Orthopnea, Paroxysmal Noc. Dyspnea, Lt Headedness Gastrointestinal: Denies: Nausea, Vomiting, Abdominal Pain, Diarrhea, Constipation Genitourinary: Denies: Dysuria, Frequency, Incontinence, Retention Psych: Reports: Mood Normal, Denies: Depression, Memory Issues Objective Physical Examination General Exam: Positive: Alert, No Acute Distress Neck Exam: Positive: Supple, Negative: JVD, thyromegaly Chest Exam: Positive: Wheezing Heart Exam: Positive: Rate Normal, Regular Rhythm, Normal S1, Normal S2, Negative: Murmurs, Rubs Telemetry: Positive: No significant arrhythmia, Other Telemetry: (paced rhythm) Abdomen Exam: Positive: Normal bowel sounds, Soft, Negative: Tenderness, Hepatospenomegaly Extremity Exam: Positive: Edema (3+ up to knee), Normal pulses, Negative: Clubbing, Cyanosis Skin Exam: Positive: Other skin issue (lg discoloraiton to BLE) Neuro Exam: Positive: Normal Gait, Normal Speech, Cranial Nerves 3-12 NL, Reflexes 2+ Psych Exam: Positive: Mental status NL, Mood NL, Oriented x 3 Assessment /Plan Problems (1) COPD (chronic obstructive pulmonary disease) Status: Chronic Problem Text: GOLD stage IV. Continue current inhalers. no signs of exacerbation.(JFW: I disagree) JFW: see my dictation. I think this IS AN EXACERBATION of COPD, not CHF. See orders (2) Heart failure, systolic and diastolic, acute on chronic Status: Acute Problem Text: soft BP today. May improved with Diuresis with improved cardiac output. Consider changing to torsemide. COntinue 1500 ml fluids restriction and 2 gram sodium diet JFW: see my dictation. i do NOT think this is acute LV CHF (3) Stasis dermatitis of both legs Status: Chronic Problem Text: Causing BLE edema. Will order compression stockings. (4) CKD (chronic kidney disease), stage III Status: Acute Problem Text: acute on chronic. Cr 1.68 today. Baseline 1.1-1.2 as baseline (5) CAD (coronary artery disease) Status: Chronic Problem Text: [facility]. (6) Hyperlipidemia Status: Chronic Response to Treatment: Stable Problem Specific Plan: Monitor Clinically (7) HTN (hypertension) Status: Chronic Problem Text: Bisoprolol on HOLD due to hypotension (8) PMR (polymyalgia rheumatica) Status: Chronic Problem Specific Plan: Monitor Clinically (9) BPH (benign prostatic hyperplasia) Status: Chronic Problem Specific Plan: Monitor Clinically (10) Chronic anemia Status: Chronic Problem Specific Plan: Monitor Clinically (11) GERD (gastroesophageal reflux disease) Status: Chronic (12) Hypothyroidism Status: Chronic Problem Specific Plan: Monitor Clinically Problem Text: TSH 3.45 on 03/12/17 (13) Lung mass Status: Chronic Problem Text: monitored by Pulmonology, Dr. Grover Plan/VTE VTE Prophylaxis Ordered?: Yes (Heparin ) VS, I&O, 24H, Fishbone Vital Signs/I&O Vital Signs Date Time Temp Pulse Resp B/P (MAP) Pulse Ox O2 Delivery O2 Flow Rate FiO2 04/17/17 08:00 97.4 94 55 94/55 (68) 96 High Flow Cannula 4.0 I&O- Last 24 Hours up to 6 AM 04/18/17 06:00 Intake Total 0 ml Balance 0 ml Laboratory Data 24H LABS Laboratory Tests 2 04/16/17 12:28: Blood Gas Bicarbonate Standard 26.9H, Arterial Blood pH 7.423, Arterial Blood Partial Pressure CO2 43.3, Arterial Blood Partial Pressure O2 65.3L, Arterial Blood Total CO2 29.0, Arterial Blood HCO3 27.6H, Arterial Blood Base Excess 2.9H , Arterial Blood Oxygen Saturation 92.6L 04/16/17 13:00: Immature Granulocyte % (Auto) 4.5H, White Blood Count 9.0, Red Blood Count 3.89L , Hemoglobin 10.8L, Hematocrit 34.6L, Mean Corpuscular Volume 88.9, Mean Corpuscular Hemoglobin 27.8, Mean Corpuscular Hemoglobin Concent 31.2L, Red Cell Distribution Width 15.4H, Platelet Count 422, Neutrophils (%) (Auto) 59.9, Lymphocytes (%) (Auto) 13.1L, Monocytes (%) (Auto) 17.9H, Eosinophils (%) (Auto ) 3.5H, Basophils (%) (Auto) 1.1H, Neutrophils # (Auto) 5.4, Lymphocytes # (Auto ) 1.2L, Monocytes # (Auto) 1.6H, Eosinophils # (Auto) 0.3, Basophils # (Auto) 0.1, Immature Granulocyte # (Auto) 0.4H, Nucleated Red Blood Cells % (auto) 0.0 , Prothrombin Time 12.8, Prothromb Time International Ratio 0.96, Activated Partial Thromboplast Time 32.3, Anion Gap 9, Glomerular Filtration Rate 44.6, Lactic Acid Level 1.8, Calcium Level 8.2L, Aspartate Amino Transf (AST/SGOT) 17 , Alanine Aminotransferase (ALT/SGPT) 13, Alkaline Phosphatase 115, Total Bilirubin 0.3, Direct Bilirubin 0.1, Total Creatine Kinase 34L, Creatine Kinase MB 1.0, Creatine Kinase MB Relative Index 2.94, Troponin I < 0.02, C-Reactive Protein, Quantitative 0.76H, TR-Mhr-O-Type Natriuretic Peptide 578H, Total Protein 5.7L, Albumin 2.5L, Albumin/Globulin Ratio 0.78L, Amylase Level 48 04/16/17 16:00: Urine Appearance CLEAR, Urine Color YELLOW, Urine pH 5.0, Urine Specific [place] 1.006, Urine Protein NEGATIVE, Urine Glucose (UA) NEGATIVE, Urine Ketones NEGATIVE, Urine Urobilinogen 0.2, Urine Bilirubin NEGATIVE, Urine Leukocyte Esterase NEGATIVE, Urine Blood NEGATIVE, Urine Nitrite NEGATIVE, Urine WBC (Auto) 1, Urine RBC (Auto) 3, Urine Hyaline Casts (Auto) 4, Urine Bacteria (Auto) NEGATIVE, Urine Squamous Epithelial Cells 0, Urine Mucus (Auto) SMALL, Urine Sperm (Auto) SMALLH 04/16/17 17:45: Total Creatine Kinase 34L, Creatine Kinase MB 1.0, Creatine Kinase MB Relative Index 2.94, Troponin I < 0.02 04/17/17 02:00: Total Creatine Kinase 28L, Creatine Kinase MB 1.0, Creatine Kinase MB Relative Index 3.57, Troponin I < 0.02 04/17/17 05:27: Nucleated Red Blood Cells % (auto) 0.0, Anion Gap 6L, Glomerular Filtration Rate 42.7, Blood Urea Nitrogen 22H, Creatinine 1.68H, Sodium Level 138, Potassium Level 4.0, Chloride Level 98, Carbon Dioxide Level 34H, Calcium Level 8.5L, Magnesium Level 2.0 CBC/BMP Laboratory Tests 04/16/17 13:00 Red Blood Count 3.89 L, Mean Corpuscular Volume 88.9, Mean Corpuscular Hemoglobin 27.8, Mean Corpuscular Hemoglobin Concent 31.2 L, Red Cell Distribution Width 15.4 H, Neutrophils (%) (Auto) 59.9, Lymphocytes (%) (Auto) 13.1 L, Monocytes (%) (Auto) 17.9 H, Eosinophils (%) (Auto) 3.5 H, Basophils (% ) (Auto) 1.1 H, Neutrophils # (Auto) 5.4, Lymphocytes # (Auto) 1.2 L, Monocytes # (Auto) 1.6 H, Eosinophils # (Auto) 0.3, Basophils # (Auto) 0.1 04/17/17 05:27 Red Blood Count 3.99 L, Mean Corpuscular Volume 88.5, Mean Corpuscular Hemoglobin 27.8, Mean Corpuscular Hemoglobin Concent 31.4 L, Red Cell Distribution Width 15.2 H, Calcium Level 8.5 L Microbiology Microbiology 04/16/17 Blood Culture, Received Pending 04/16/17 Blood Culture, Received Pending 04/16/17 Gram Stain, Received Pending 04/16/17 Sputum Culture, Received Pending 04/16/17 Influenza Virus Type A Antigen - Final, Complete 04/16/17 Influenza Virus Type B Antigen - Final, Complete Louise Cardenas Apr 17, 2017 09:05 Moe Archer MD Apr 17, 2017 13:45
[2017-04-17] MEDS: TAMSULOSIN 0.4 MG CAP PO SCH (09:12)
[2017-04-17] MEDS: PANTOPRAZOLE 40MG TAB (PROTONIX) PO SCH ×2 (09:12→21:01)
[2017-04-17] MEDS: ASPIRIN 81 MG ENTERIC TAB PO SCH (09:12)
[2017-04-17] MEDS: HEPARIN SOD (PORCINE) 5000 UNITS/ML VIAL SQ SCH ×2 (09:13→21:02)
[2017-04-17 11:37] VITALS: BP 90/60
[2017-04-17 12:00] VITALS: BP 105/60
[2017-04-17] MEDS ORDERED: IPRATROPIUM 0.5MG/ALBUTEROL 2.5MG INH SOL UD 3ML (DUONEB)(J7620) NEB PRN (13:45)
--- NOTE | 2017-04-17 13:59 | IPN ---
DATE: 04/17/2017 This note clarifies the patient note generated today by Louise Cardenas NP. I have assessed Max and looked through his office records, and feel that his current hospitalization is most likely due to exacerbation of his severe chronic obstructive pulmonary disease (COPD). I do not think he has much congestive heart failure (CHF), I think most of this edema is due to acute on chronic cor pulmonale. He has severe COPD. He had spirometry done at [facility] 10[facility]20. His FEV1 is 1.1, FEV1/FVC ratio is 55%. His interpretation was severe airflow obstruction, significantly worse from his spirometry from a year before. This patient is typically on chronic steroids at home. He was discharged from the hospital 03/17/2017 with a prescription of prednisone which tapered him off to no prednisone (he has been on chronic steroid therapy for years). He has had increasing shortness of breath since he stopped his prednisone. I am amending today's note to indicate that the primary reason for hospitalization is exacerbation of severe COPD. He has some cor pulmonale with some volume retention secondary to right sided heart failure. His left ventricular ejection fraction is normal. He is hypotensive now secondary to some volume depletion and he is in some renal failure secondary to diuresis as well with a baseline creatinine of 1.2-1.3 and current creatinine of 1.6. We will be starting intravenous steroids, nebulized bronchodilator, reducing the aggressiveness of his diuresis, and starting him on empiric antibiotic therapy as he has had a cough, sputum production and feels his current problem began with a respiratory infection.
[2017-04-17] MEDS: methylPREDNISolone INJ 125 MG/2 ML VIAL (J2930) IV SCH (14:14)
[2017-04-17] MEDS: IPRATROPIUM 0.5MG/ALBUTEROL 2.5MG INH SOL UD 3ML (DUONEB)(J7620) NEB SCH ×2 (14:33→20:00)
[2017-04-17] MEDS: CEFTRIAXONE SOD 2 GM in APPROPRIATE DILUENT 1 EA IV SCH (15:22)
[2017-04-17 16:00] VITALS: BP 103/62
[2017-04-17] MEDS: DOXYCYCLINE HYCLATE 100 MG in D5W MINI-BAG PLUS 100 ML IV SCH (16:54)
[2017-04-17 20:00] VITALS: BP 102/64
[2017-04-17] MEDS: ATORVASTATIN 20 MG TAB PO SCH (21:01)
[2017-04-18] VITALS (7 sets, daily range): BP systolic 97–119; BP diastolic 54–70
[2017-04-18] MEDS: IPRATROPIUM 0.5MG/ALBUTEROL 2.5MG INH SOL UD 3ML (DUONEB)(J7620) NEB SCH ×6 (01:39→20:00)
[2017-04-18] MEDS: methylPREDNISolone INJ 125 MG/2 ML VIAL (J2930) IV SCH ×2 (02:24→14:19)
[2017-04-18] MEDS: DOXYCYCLINE HYCLATE 100 MG in D5W MINI-BAG PLUS 100 ML IV SCH ×2 (04:00→16:04)
--- NOTE | 2017-04-18 04:25 | ECGEPIP ---
Stationary ECG Study [facility] - ED Test Date: 2017-04-16 Pat Name: FIDEL TORRES Department: Room: - Gender: M Lead Teller: JOHN : 1945 Requested By: Laurence Rodgers Order Number: [id number] Reading MD: Mike Salazar Measurements Intervals [place] Rate: 93 P: 3 WI: 192 QRS: -8 QRSD: 140 T: 62 QT: 387 QTc: 481 Interpretive Statements ELECTRONIC VENTRICULAR PACEMAKER SIMILAR TO 03/13/17 Electronically Signed On 04-18-2017 4:25:25 EST by Mike Salazar
[2017-04-18] MEDS: LEVOTHYROXINE 50MCG TABLET (0.05MG) PO SCH (06:05)
[2017-04-18] MEDS: TORSEMIDE 20 MG TAB PO SCH ×2 (06:05→16:04)
[2017-04-18 06:06] LABS: WHITE BLOOD COUNT 10.7 10^3/uL (4.0-10.0)
[2017-04-18 06:07] LABS: BASO % 0.4 % (0.0-1.0); LYMPH # 0.6 10^3/uL (1.5-4.5); LYMPH % 5.3 % (24.0-44.0); MEAN CORPUSCULAR HEMOGLOBIN 28.2 pg (27.0-33.0); MEAN CORPUSCULAR HGB CONC 31.6 g/dl (32.0-36.5); MEAN CORPUSCULAR VOLUME 89.2 fl (80.0-96.0); MONO # 0.4 10^3/uL (0.0-0.8); MONO % 3.4 % (0.0-5.0); NEUTROPHILS # 9.3 10^3/uL (1.8-7.7); NEUTROPHILS % 86.9 % (36.0-66.0); PLATELET COUNT, AUTOMATED 415 10^3/uL (150-450); RED CELL DISTRIBUTION WIDTH 15.1 % (11.5-14.5)
[2017-04-18 06:46] LABS: ALBUMIN 2.4 GM/DL (3.2-5.2); ALBUMIN/GLOBULIN RATIO 0.6 (1.00-1.93); BILIRUBIN,TOTAL 0.3 MG/DL (0.2-1.0); CALCIUM LEVEL 8.3 MG/DL (8.8-10.2); CREATININE FOR GFR 1.47 MG/DL (0.70-1.30); GLOMERULAR FILTRATION RATE 49.9 (>42); TOTAL PROTEIN 6.4 GM/DL (6.4-8.2)
[2017-04-18] MEDS: ADVAIR HFA 230/21MCG INHALER INH SCH ×2 (07:25→21:28)
[2017-04-18] MEDS: TIOTROPIUM INHALER/CAPSULE (SPIRIVA) INH SCH (07:25)
[2017-04-18] MEDS: ASPIRIN 81 MG ENTERIC TAB PO SCH (08:51)
[2017-04-18] MEDS: BISOPROLOL FUMARATE 10 MG TAB PO SCH (08:52)
[2017-04-18] MEDS: HEPARIN SOD (PORCINE) 5000 UNITS/ML VIAL SQ SCH ×2 (08:53→20:59)
[2017-04-18] MEDS: SPIRONOLACTONE 50 MG TAB PO SCH (08:53)
[2017-04-18] MEDS: PANTOPRAZOLE 40MG TAB (PROTONIX) PO SCH ×2 (08:53→20:58)
[2017-04-18] MEDS: TAMSULOSIN 0.4 MG CAP PO SCH (08:53)
--- NOTE | 2017-04-18 09:00 | IPNPDOC ---
Subjective Date Seen The patient was seen on 04/18/17. Subjective Chief Complaint/HPI The patient is a 72-year-old male admitted with a reason for visit of Acute Exacerbation Of Chf,Diastolic Chf. Events since last encounter Feels tired this morning because he did not sleep last night. States that the bed is the most uncomfortable thing he slept on. Breathing improved from yesterday. Admits to being SOB at baseline. Denies CP. Still has edema in the LE. Had 8 beat run of V-tach that resolved spontaneously last night. General: Reports: Normal Appetite, Denies: Chills, Night Sweats, Fatigue, Malaise Constitutional: Denies: Chills, Fever, Night Sweats Pulmonary: Reports: Other Symptoms (SOB at baseline, unchange) Cardiovascular: Reports: Edema (LE), Denies: Chest Pain, Palpitations, Orthopnea, Paroxysmal Noc. Dyspnea, Lt Headedness Objective Physical Examination General Exam: Positive: Alert, No Acute Distress Neck Exam: Positive: Supple, Negative: JVD, thyromegaly Chest Exam: Positive: Wheezing Heart Exam: Positive: Rate Normal, Regular Rhythm, Normal S1, Normal S2, Negative: Murmurs, Rubs Telemetry: Positive: No significant arrhythmia, Other Telemetry: (paced rhythm) Abdomen Exam: Positive: Normal bowel sounds, Soft, Negative: Tenderness, Hepatospenomegaly Extremity Exam: Positive: Edema (3+ up to knee), Normal pulses, Negative: Clubbing, Cyanosis Skin Exam: Positive: Other skin issue (lg discoloraiton to BLE) Neuro Exam: Positive: Normal Gait, Normal Speech, Cranial Nerves 3-12 NL, Reflexes 2+ Psych Exam: Positive: Mental status NL, Mood NL, Oriented x 3 Assessment /Plan Problems (1) COPD (chronic obstructive pulmonary disease) Status: Chronic Problem Text: 04/18/17: breathing unchanged today. continue on O2. Will continue with prednisone 04/17/17 GOLD stage IV. Continue current inhalers. no signs of exacerbation.(JFW : I disagree) JEREYMW: see my dictation. I think this IS AN EXACERBATION of COPD, not CHF. See orders (2) Heart failure, systolic and diastolic, acute on chronic Status: Acute Problem Text: 04/18/17: Patient started on torsemide 60mg BID today. Holding spironolactone until Cr. improves to baseline. Output reduced from day prior, will continue to monitor. 04/17/17 soft BP today. May improved with Diuresis with improved cardiac output. Consider changing to torsemide. COntinue 1500 ml fluids restriction and 2 gram sodium diet JFW: see my dictation. i do NOT think this is acute LV CHF (3) Stasis dermatitis of both legs Status: Chronic Problem Text: 04/18/17: Patient's leg should be elevated to reduce edema. Will continue Torsemide. 04/17/17 Causing BLE edema. Will order compression stockings. (4) CKD (chronic kidney disease), stage III Status: Acute Problem Text: 04/18/17: improving today. Cr. 1.47. continue Torsemide because of his edema. will hold spironolactone. 04/17/17 acute on chronic. Cr 1.68 today. Baseline 1.1-1.2 as baseline (5) CAD (coronary artery disease) Status: Chronic Problem Text: [facility]. (6) Hyperlipidemia Status: Chronic Response to Treatment: Stable Problem Specific Plan: Monitor Clinically (7) HTN (hypertension) Status: Chronic Problem Text: Bisoprolol on HOLD due to hypotension (8) PMR (polymyalgia rheumatica) Status: Chronic Problem Specific Plan: Monitor Clinically (9) BPH (benign prostatic hyperplasia) Status: Chronic Problem Specific Plan: Monitor Clinically (10) Chronic anemia Status: Chronic Problem Specific Plan: Monitor Clinically (11) GERD (gastroesophageal reflux disease) Status: Chronic (12) Hypothyroidism Status: Chronic Problem Specific Plan: Monitor Clinically Problem Text: TSH 3.45 on 03/12/17 (13) Lung mass Status: Chronic Problem Text: monitored by Pulmonology, Dr. Grover Plan/VTE VTE Prophylaxis Ordered?: Yes VS, I&O, 24H, Fishbone Vital Signs/I&O Vital Signs Date Time Temp Pulse Resp B/P (MAP) Pulse Ox O2 Delivery O2 Flow Rate FiO2 04/18/17 04:00 98.6 84 18 110/63 (79) 90 Room Air 04/17/17 20:00 3.0 I&O- Last 24 Hours up to 6 AM 04/19/17 06:00 Intake Total 240 ml Output Total 100 ml Balance 140 ml Laboratory Data 24H LABS Laboratory Tests 2 04/17/17 09:50: Total Creatine Kinase 29L, Creatine Kinase MB 1.0, Creatine Kinase MB Relative Index 3.44, Troponin I < 0.02 04/18/17 05:39: Anion Gap 6L, Glomerular Filtration Rate 49.9, Blood Urea Nitrogen 26H, Creatinine 1.47H, Sodium Level 136, Potassium Level 5.0#, Chloride Level 98, Carbon Dioxide Level 32, Calcium Level 8.3L, Aspartate Amino Transf (AST/SGOT) 18, Alanine Aminotransferase (ALT/SGPT) 13, Alkaline Phosphatase 105, Total Bilirubin 0.3, Total Protein 6.4, Albumin 2.4L, Albumin/Globulin Ratio 0.60L 04/18/17 05:40: Immature Granulocyte % (Auto) 4.0H, White Blood Count 10.7H, Red Blood Count 3.72L, Hemoglobin 10.5L, Hematocrit 33.2L, Mean Corpuscular Volume 89.2, Mean Corpuscular Hemoglobin 28.2, Mean Corpuscular Hemoglobin Concent 31.6L, Red Cell Distribution Width 15.1H, Platelet Count 415, Neutrophils (%) (Auto) 86.9H , Lymphocytes (%) (Auto) 5.3L, Monocytes (%) (Auto) 3.4, Eosinophils (%) (Auto) 0.0, Basophils (%) (Auto) 0.4, Neutrophils # (Auto) 9.3H, Lymphocytes # (Auto) 0.6L, Monocytes # (Auto) 0.4, Eosinophils # (Auto) 0.0, Basophils # (Auto) 0.0, Immature Granulocyte # (Auto) 0.4H, Nucleated Red Blood Cells % (auto) 0.0 CBC/BMP Laboratory Tests 04/18/17 05:39 Calcium Level 8.3 L, Aspartate Amino Transf (AST/SGOT) 18, Alanine Aminotransferase (ALT/SGPT) 13, Alkaline Phosphatase 105, Total Bilirubin 0.3, Total Protein 6.4, Albumin 2.4 L 04/18/17 05:40 Red Blood Count 3.72 L, Mean Corpuscular Volume 89.2, Mean Corpuscular Hemoglobin 28.2, Mean Corpuscular Hemoglobin Concent 31.6 L, Red Cell Distribution Width 15.1 H, Neutrophils (%) (Auto) 86.9 H, Lymphocytes (%) (Auto ) 5.3 L, Monocytes (%) (Auto) 3.4, Eosinophils (%) (Auto) 0.0, Basophils (%) ( Auto) 0.4, Neutrophils # (Auto) 9.3 H, Lymphocytes # (Auto) 0.6 L, Monocytes # ( Auto) 0.4, Eosinophils # (Auto) 0.0, Basophils # (Auto) 0.0 Microbiology Microbiology 04/16/17 Blood Culture - Preliminary, Resulted No growth after 24 hours . All specim... 04/16/17 Blood Culture - Preliminary, Resulted No growth after 24 hours . All specim... 04/16/17 Gram Stain - Final, Resulted 04/16/17 Sputum Culture, Resulted Pending 04/16/17 Influenza Virus Type A Antigen - Final, Complete 04/16/17 Influenza Virus Type B Antigen - Final, Complete ANA MARÍA CHRISTOPHER DO Apr 18, 2017 09:00
[2017-04-18] MEDS: CEFTRIAXONE SOD 2 GM in APPROPRIATE DILUENT 1 EA IV SCH (14:19)
[2017-04-18] MEDS: ATORVASTATIN 20 MG TAB PO SCH (20:58)
[2017-04-19] MEDS: methylPREDNISolone INJ 125 MG/2 ML VIAL (J2930) IV SCH ×2 (01:14→14:53)
[2017-04-19] MEDS: IPRATROPIUM 0.5MG/ALBUTEROL 2.5MG INH SOL UD 3ML (DUONEB)(J7620) NEB SCH ×4 (01:42→20:00)
[2017-04-19] MEDS: DOXYCYCLINE HYCLATE 100 MG in D5W MINI-BAG PLUS 100 ML IV SCH (03:49)
[2017-04-19 04:00] VITALS: BP 102/67
[2017-04-19 05:57] LABS: BASO % 0.3 % (0.0-1.0); LYMPH # 0.5 10^3/uL (1.5-4.5); LYMPH % 4.6 % (24.0-44.0); MEAN CORPUSCULAR HEMOGLOBIN 27.9 pg (27.0-33.0); MEAN CORPUSCULAR HGB CONC 31.5 g/dl (32.0-36.5); MEAN CORPUSCULAR VOLUME 88.7 fl (80.0-96.0); MONO # 0.6 10^3/uL (0.0-0.8); MONO % 4.7 % (0.0-5.0); NEUTROPHILS # 10.1 10^3/uL (1.8-7.7); NEUTROPHILS % 86.4 % (36.0-66.0); PLATELET COUNT, AUTOMATED 418 10^3/uL (150-450); RED CELL DISTRIBUTION WIDTH 15.2 % (11.5-14.5); WHITE BLOOD COUNT 11.7 10^3/uL (4.0-10.0)
[2017-04-19] MEDS: LEVOTHYROXINE 50MCG TABLET (0.05MG) PO SCH (06:07)
[2017-04-19] MEDS: TORSEMIDE 20 MG TAB PO SCH ×2 (06:07→17:07)
[2017-04-19 06:18] LABS: ALBUMIN 2.6 GM/DL (3.2-5.2); ALBUMIN/GLOBULIN RATIO 0.68 (1.00-1.93); BILIRUBIN,TOTAL 0.2 MG/DL (0.2-1.0); CALCIUM LEVEL 7.5 MG/DL (8.8-10.2); CREATININE FOR GFR 1.51 MG/DL (0.70-1.30); GLOMERULAR FILTRATION RATE 48.3 (>42); TOTAL PROTEIN 6.4 GM/DL (6.4-8.2)
[2017-04-19 08:00] VITALS: BP 125/50
--- NOTE | 2017-04-19 08:19 | IPNPDOC ---
Subjective Date Seen The patient was seen on 04/19/17. Subjective Chief Complaint/HPI The patient is a 72-year-old male admitted with a reason for visit of Acute Exacerbation Of Chf,Diastolic Chf. Events since last encounter Improved sleep and breathing overnight vs previous. He has been trying to keep his legs elevated. No complaints of fevers, SOB, CP. Objective Physical Examination General Exam: Positive: Alert, No Acute Distress Neck Exam: Positive: Supple, Negative: JVD, thyromegaly Chest Exam: Positive: Wheezing Heart Exam: Positive: Rate Normal, Regular Rhythm, Normal S1, Normal S2, Negative: Murmurs, Rubs Telemetry: Positive: No significant arrhythmia, Other Telemetry: (paced rhythm) Abdomen Exam: Positive: Normal bowel sounds, Soft, Negative: Tenderness, Hepatospenomegaly Extremity Exam: Positive: Edema (3+ up to knee), Normal pulses, Negative: Clubbing, Cyanosis Skin Exam: Positive: Other skin issue (lg discoloraiton to BLE) Neuro Exam: Positive: Normal Gait, Normal Speech, Cranial Nerves 3-12 NL, Reflexes 2+ Psych Exam: Positive: Mental status NL, Mood NL, Oriented x 3 Assessment /Plan Problems (1) COPD (chronic obstructive pulmonary disease) Status: Chronic Problem Text: 04/19/17: Breathing improved from yesterday. Continue o2, prednisone. 04/18/17: breathing unchanged today. continue on O2. Will continue with prednisone 04/17/17 GOLD stage IV. Continue current inhalers. no signs of exacerbation.(JFW : I disagree) JFW: see my dictation. I think this IS AN EXACERBATION of COPD, not CHF. See orders (2) Pseudomonas aeruginosa infection Problem Text: 04/19/17: Will start patient on Levaquin and Meropenem. D/c Doxycycline. Positive on sputum culture on 04/16/17. No prior pseudomonas infection. (3) Heart failure, systolic and diastolic, acute on chronic Status: Acute Problem Text: 04/19: Continues to have poor output. Will continue on torsemide. Spironolactone held until Cr improves 04/18/17: Patient started on torsemide 60mg BID today. Holding spironolactone until Cr. improves to baseline. Output reduced from day prior, will continue to monitor. 04/17/17 soft BP today. May improved with Diuresis with improved cardiac output. Consider changing to torsemide. COntinue 1500 ml fluids restriction and 2 gram sodium diet JFW: see my dictation. i do NOT think this is acute LV CHF (4) Stasis dermatitis of both legs Status: Chronic Problem Text: 04/19. Asked nurses to provide chair to keep his legs elevated if sitting in the daytime. 04/18/17: Patient's leg should be elevated to reduce edema. Will continue Torsemide. 04/17/17 Causing BLE edema. Will order compression stockings. (5) CKD (chronic kidney disease), stage III Status: Acute Problem Text: 04/19: Cr 1.51. Stable. Will continue on Torsemide. 04/18/17: improving today. Cr. 1.47. continue Torsemide because of his edema. will hold spironolactone. 04/17/17 acute on chronic. Cr 1.68 today. Baseline 1.1-1.2 as baseline (6) CAD (coronary artery disease) Status: Chronic Problem Text: [facility]. (7) Hyperlipidemia Status: Chronic Response to Treatment: Stable Problem Specific Plan: Monitor Clinically (8) HTN (hypertension) Status: Chronic Problem Text: Bisoprolol on HOLD due to hypotension (9) PMR (polymyalgia rheumatica) Status: Chronic Problem Specific Plan: Monitor Clinically (10) BPH (benign prostatic hyperplasia) Status: Chronic Problem Specific Plan: Monitor Clinically (11) Chronic anemia Status: Chronic Problem Specific Plan: Monitor Clinically (12) GERD (gastroesophageal reflux disease) Status: Chronic (13) Hypothyroidism Status: Chronic Problem Specific Plan: Monitor Clinically Problem Text: TSH 3.45 on 03/12/17 (14) Lung mass Status: Chronic Problem Text: monitored by Pulmonology, Dr. Grover Plan/VTE VTE Prophylaxis Ordered?: Yes VS, I&O, 24H, Fishbone Vital Signs/I&O Vital Signs Date Time Temp Pulse Resp B/P (MAP) Pulse Ox O2 Delivery O2 Flow Rate FiO2 04/19/17 04:00 97.3 80 20 102/67 (79) 94 Nasal Cannula 3.0 Laboratory Data 24H LABS Laboratory Tests 2 04/19/17 05:38: Immature Granulocyte % (Auto) 4.0H, White Blood Count 11.7H, Red Blood Count 3.80L, Hemoglobin 10.6L, Hematocrit 33.7L, Mean Corpuscular Volume 88.7, Mean Corpuscular Hemoglobin 27.9, Mean Corpuscular Hemoglobin Concent 31.5L, Red Cell Distribution Width 15.2H, Platelet Count 418, Neutrophils (%) (Auto) 86.4H , Lymphocytes (%) (Auto) 4.6L, Monocytes (%) (Auto) 4.7, Eosinophils (%) (Auto) 0.0, Basophils (%) (Auto) 0.3, Neutrophils # (Auto) 10.1H, Lymphocytes # (Auto) 0.5L, Monocytes # (Auto) 0.6, Eosinophils # (Auto) 0.0, Basophils # (Auto) 0.0, Immature Granulocyte # (Auto) 0.5H, Nucleated Red Blood Cells % (auto) 0.0, Anion Gap 8, Glomerular Filtration Rate 48.3, Blood Urea Nitrogen 31H, Creatinine 1.51H, Sodium Level 137, Potassium Level 5.0, Chloride Level 100, Carbon Dioxide Level 29, Calcium Level 7.5L, Aspartate Amino Transf (AST/SGOT) 12, Alanine Aminotransferase (ALT/SGPT) 13, Alkaline Phosphatase 100, Total Bilirubin 0.2, Total Protein 6.4, Albumin 2.6L, Albumin/Globulin Ratio 0.68L CBC/BMP Laboratory Tests 04/19/17 05:38 Red Blood Count 3.80 L, Mean Corpuscular Volume 88.7, Mean Corpuscular Hemoglobin 27.9, Mean Corpuscular Hemoglobin Concent 31.5 L, Red Cell Distribution Width 15.2 H, Neutrophils (%) (Auto) 86.4 H, Lymphocytes (%) (Auto ) 4.6 L, Monocytes (%) (Auto) 4.7, Eosinophils (%) (Auto) 0.0, Basophils (%) ( Auto) 0.3, Neutrophils # (Auto) 10.1 H, Lymphocytes # (Auto) 0.5 L, Monocytes # (Auto) 0.6, Eosinophils # (Auto) 0.0, Basophils # (Auto) 0.0, Calcium Level 7.5 L, Aspartate Amino Transf (AST/SGOT) 12, Alanine Aminotransferase (ALT/SGPT) 13 , Alkaline Phosphatase 100, Total Bilirubin 0.2, Total Protein 6.4, Albumin 2.6 L Microbiology Microbiology 04/16/17 Blood Culture - Preliminary, Resulted No Growth after 48 hours. All Specime... 04/16/17 Blood Culture - Preliminary, Resulted No Growth after 48 hours. All Specime... 04/16/17 Gram Stain - Final, Resulted 04/16/17 Sputum Culture - Preliminary, Resulted Pseudomonas Aeruginosa 04/16/17 Influenza Virus Type A Antigen - Final, Complete 04/16/17 Influenza Virus Type B Antigen - Final, Complete ANA MARÍA CHRISTOPHER DO Apr 19, 2017 08:19
[2017-04-19] MEDS: ADVAIR HFA 230/21MCG INHALER INH SCH ×2 (08:25→20:09)
[2017-04-19] MEDS: TIOTROPIUM INHALER/CAPSULE (SPIRIVA) INH SCH (08:25)
[2017-04-19] MEDS: TAMSULOSIN 0.4 MG CAP PO SCH (09:47)
[2017-04-19] MEDS: ASPIRIN 81 MG ENTERIC TAB PO SCH (09:47)
[2017-04-19] MEDS: BISOPROLOL FUMARATE 10 MG TAB PO SCH (09:47)
[2017-04-19] MEDS: SPIRONOLACTONE 50 MG TAB PO SCH (09:47)
[2017-04-19] MEDS: HEPARIN SOD (PORCINE) 5000 UNITS/ML VIAL SQ SCH ×2 (09:48→21:01)
[2017-04-19] MEDS: PANTOPRAZOLE 40MG TAB (PROTONIX) PO SCH ×2 (09:48→21:01)
[2017-04-19] MEDS: LevoFLOXacin IV 500 MG in APPROPRIATE DILUENT 1 EA IV SCH (09:49)
[2017-04-19] MEDS ORDERED: SLF 3 ML SYR IV PRN (11:00)
[2017-04-19 12:00] VITALS: BP 110/58
[2017-04-19] MEDS: SLF 3 ML SYR IV SCH ×2 (14:53→21:02)
[2017-04-19] MEDS: MEROPENEM INJ 1 GM in APPROPRIATE DILUENT 1 EA IV SCH ×2 (15:57→21:01)
[2017-04-19 16:00] VITALS: BP 109/63
--- NOTE | 2017-04-19 16:58 | REP ---
Procedure: PICC line insertion with Jordy-Christina The procedure was performed under the direct supervision of Dr. Jameson. The risks and benefits of the procedure were explained to the patient and informed consent was obtained. The right basilic vein was localized using ultrasound guidance. The skin was prepped and draped in a sterile fashion. 2% lidocaine was used as a local anesthetic. Using ultrasound guidance the basilic vein was cannulated and a 0.018 guidewire was inserted and advanced to the SVC using fluoroscopic guidance. The needle was removed and a 5.5 Kenyan dilator and peel-away sheath was inserted over the guide wire. A 5.5 Kenyan dual lumen catheter was cut to length of 41 cm. The dilator was removed and the catheter was inserted over the guide wire with the tip ending in the SVC. The peel-away sheath was removed and the catheter was flushed with heparinized saline as per Hospital protocol. The catheter was affixed to the skin and a sterile dressing was applied. The the patient tolerated the procedure well and there were no immediate complications. 0.2 minutes of fluoro time was utilized for this procedure. Reviewed by ADAMA Alcaraz 04/19/2017 04:47 PSigned by David Jameson MD 04/19/2017 04:50 P
[2017-04-19] MEDS: SODIUM CHLORIDE 0.9% INJ 10 ML SYR IV SCH (17:54)
[2017-04-19 20:00] VITALS: BP 106/57
[2017-04-19] MEDS: ATORVASTATIN 20 MG TAB PO SCH (21:01)
[2017-04-19 23:59] VITALS: BP 106/57
[2017-04-20] MEDS: IPRATROPIUM 0.5MG/ALBUTEROL 2.5MG INH SOL UD 3ML (DUONEB)(J7620) NEB SCH ×4 (01:07→20:00)
[2017-04-20] MEDS: methylPREDNISolone INJ 125 MG/2 ML VIAL (J2930) IV SCH ×2 (01:34→13:57)
[2017-04-20] MEDS: SODIUM CHLORIDE 0.9% INJ 10 ML SYR IV PRN (01:38)
[2017-04-20 04:00] VITALS: BP 119/63
[2017-04-20] MEDS: SLF 3 ML SYR IV SCH ×3 (06:00→21:24)
[2017-04-20] MEDS: LEVOTHYROXINE 50MCG TABLET (0.05MG) PO SCH (06:15)
[2017-04-20] MEDS: SODIUM CHLORIDE 0.9% INJ 10 ML SYR IV SCH ×2 (06:16→17:31)
[2017-04-20] MEDS: TORSEMIDE 20 MG TAB PO SCH ×2 (06:17→17:30)
[2017-04-20 07:00] VITALS: BP 123/73
[2017-04-20] MEDS: TIOTROPIUM INHALER/CAPSULE (SPIRIVA) INH SCH (07:12)
[2017-04-20] MEDS: ADVAIR HFA 230/21MCG INHALER INH SCH ×2 (07:12→20:04)
[2017-04-20] MEDS: ASPIRIN 81 MG ENTERIC TAB PO SCH (09:05)
[2017-04-20] MEDS: BISOPROLOL FUMARATE 10 MG TAB PO SCH (09:06)
[2017-04-20] MEDS: TAMSULOSIN 0.4 MG CAP PO SCH (09:06)
[2017-04-20] MEDS: SPIRONOLACTONE 50 MG TAB PO SCH (09:06)
[2017-04-20] MEDS: HEPARIN SOD (PORCINE) 5000 UNITS/ML VIAL SQ SCH ×2 (09:06→21:23)
[2017-04-20] MEDS: LevoFLOXacin IV 500 MG in APPROPRIATE DILUENT 1 EA IV SCH (09:06)
[2017-04-20] MEDS: PANTOPRAZOLE 40MG TAB (PROTONIX) PO SCH ×2 (09:06→21:23)
[2017-04-20 09:29] LABS: BASO % 0.3 % (0.0-1.0); LYMPH # 0.7 10^3/uL (1.5-4.5); MEAN CORPUSCULAR HEMOGLOBIN 28.2 pg (27.0-33.0); MEAN CORPUSCULAR HGB CONC 31.5 g/dl (32.0-36.5); MEAN CORPUSCULAR VOLUME 89.6 fl (80.0-96.0); MONO # 1.1 10^3/uL (0.0-0.8); MONO % 8.4 % (0.0-5.0); NEUTROPHILS # 11.1 10^3/uL (1.8-7.7); NEUTROPHILS % 82.3 % (36.0-66.0); PLATELET COUNT, AUTOMATED 397 10^3/uL (150-450); RED CELL DISTRIBUTION WIDTH 15.6 % (11.5-14.5); WHITE BLOOD COUNT 13.5 10^3/uL (4.0-10.0)
[2017-04-20 10:00] LABS: ALBUMIN 2.6 GM/DL (3.2-5.2); ALBUMIN/GLOBULIN RATIO 0.79 (1.00-1.93); ALKALINE PHOSPHATASE 90 U/L (45-117); ALT/SGPT 13 U/L (12-78); ANION GAP 5 MEQ/L (8-16); AST/SGOT 14 U/L (7-37); BILIRUBIN,TOTAL 0.3 MG/DL (0.2-1.0); BLOOD UREA NITROGEN 36 MG/DL (7-18); CALCIUM LEVEL 7.5 MG/DL (8.8-10.2); CARBON DIOXIDE LEVEL 33 MEQ/L (21-32); CHLORIDE LEVEL 100 MEQ/L (98-107); CREATININE FOR GFR 1.21 MG/DL (0.70-1.30); GLOMERULAR FILTRATION RATE > 60.0 (>42); GLUCOSE, FASTING 135 MG/DL (83-110); POTASSIUM SERUM 4.2 MEQ/L (3.5-5.1); SODIUM LEVEL 138 MEQ/L (136-145); TOTAL PROTEIN 5.9 GM/DL (6.4-8.2)
[2017-04-20] MEDS: MEROPENEM INJ 1 GM in APPROPRIATE DILUENT 1 EA IV SCH ×2 (10:27→21:24)
[2017-04-20 11:20] LABS: MAGNESIUM LEVEL 1.9 MG/DL (1.8-2.4)
[2017-04-20 12:00] VITALS: BP 115/58
--- NOTE | 2017-04-20 12:43 | IPNPDOC ---
Subjective Date Seen The patient was seen on 04/20/17. Subjective Chief Complaint/HPI The patient is a 72-year-old male admitted with a reason for visit of Acute Exacerbation Of Chf,Diastolic Chf. Events since last encounter Patient seen at bedside today. He feels tired but improved. Otherwise, no complaints. Patient was instructed to keep his legs elevated which he had done at night. Patient has not been elevating his legs in the daytime. He denies CP, SOB, dysuria, fevers. Objective Physical Examination General Exam: Positive: Alert, No Acute Distress Neck Exam: Positive: Supple, Negative: JVD, thyromegaly Chest Exam: Positive: Wheezing Heart Exam: Positive: Rate Normal, Regular Rhythm, Normal S1, Normal S2, Negative: Murmurs, Rubs Telemetry: Positive: No significant arrhythmia, Other Telemetry: (paced rhythm) Abdomen Exam: Positive: Normal bowel sounds, Soft, Negative: Tenderness, Hepatospenomegaly Extremity Exam: Positive: Edema (3+ up to knee), Normal pulses, Negative: Clubbing, Cyanosis Skin Exam: Positive: Other skin issue (lg discoloraiton to BLE) Neuro Exam: Positive: Normal Gait, Normal Speech, Cranial Nerves 3-12 NL, Reflexes 2+ Psych Exam: Positive: Mental status NL, Mood NL, Oriented x 3 Assessment /Plan Problems (1) COPD (chronic obstructive pulmonary disease) Status: Chronic Problem Text: 04/20/17: Breathing improved. Continue o2, prednisone. 04/17/17 GOLD stage IV. Continue current inhalers. no signs of exacerbation.(JFW : I disagree) JFW: see my dictation. I think this IS AN EXACERBATION of COPD, not CHF. See orders (2) Pseudomonas aeruginosa infection Problem Text: 04/20/17: patient on Levaquin and Meropenem (day #2) Positive on sputum culture on 04/16/17. No prior pseudomonas infection. (3) Heart failure, systolic and diastolic, acute on chronic Status: Acute Problem Text: 04/20: Improved output yesterday Will continue on torsemide. Spironolactone held. Cr Improved today JFW: see my dictation. i do NOT think this is acute LV CHF (4) Stasis dermatitis of both legs Status: Chronic Problem Text: 04/19. Asked nurses to provide chair to keep his legs elevated if sitting in the daytime. 04/18/17: Patient's leg should be elevated to reduce edema. Will continue Torsemide. 04/17/17 Causing BLE edema. Will order compression stockings. (5) CKD (chronic kidney disease), stage III Status: Acute Problem Text: Cr 1.21. Stable. Baseline 1.1-1.2 as baseline (6) CAD (coronary artery disease) Status: Chronic Problem Text: [facility]. (7) Hyperlipidemia Status: Chronic Response to Treatment: Stable Problem Specific Plan: Monitor Clinically (8) HTN (hypertension) Status: Chronic Problem Text: Bisoprolol on HOLD due to hypotension (9) PMR (polymyalgia rheumatica) Status: Chronic Problem Specific Plan: Monitor Clinically (10) BPH (benign prostatic hyperplasia) Status: Chronic Problem Specific Plan: Monitor Clinically (11) Chronic anemia Status: Chronic Problem Specific Plan: Monitor Clinically (12) GERD (gastroesophageal reflux disease) Status: Chronic (13) Hypothyroidism Status: Chronic Problem Specific Plan: Monitor Clinically Problem Text: TSH 3.45 on 03/12/17 (14) Lung mass Status: Chronic Problem Text: monitored by Pulmonology, Dr. Grover Plan/VTE VTE Prophylaxis Ordered?: Yes Plan Attending Physician Note: The patient was seen and examined and the chart reviewed. The case was discussed with the resident on service. VS, I&O, 24H, Fishbone Vital Signs/I&O Vital Signs Date Time Temp Pulse Resp B/P (MAP) Pulse Ox O2 Delivery O2 Flow Rate FiO2 04/20/17 12:00 97.9 66 18 115/58 (77) 97 Nasal Cannula 3.0 I&O- Last 24 Hours up to 6 AM 04/21/17 06:00 Intake Total 120 ml Output Total 550 ml Balance -430 ml Laboratory Data 24H LABS Laboratory Tests 2 04/20/17 09:20: Immature Granulocyte % (Auto) 4.0H, White Blood Count 13.5H, Red Blood Count 3.83L, Hemoglobin 10.8L, Hematocrit 34.3L, Mean Corpuscular Volume 89.6, Mean Corpuscular Hemoglobin 28.2, Mean Corpuscular Hemoglobin Concent 31.5L, Red Cell Distribution Width 15.6H, Platelet Count 397, Neutrophils (%) (Auto) 82.3H , Lymphocytes (%) (Auto) 5.0L, Monocytes (%) (Auto) 8.4H, Eosinophils (%) (Auto ) 0.0, Basophils (%) (Auto) 0.3, Neutrophils # (Auto) 11.1H, Lymphocytes # (Auto ) 0.7L, Monocytes # (Auto) 1.1H, Eosinophils # (Auto) 0.0, Basophils # (Auto) 0.0, Immature Granulocyte # (Auto) 0.5H, Nucleated Red Blood Cells % (auto) 0.0 , Anion Gap 5L, Glomerular Filtration Rate > 60.0, Blood Urea Nitrogen 36H, Creatinine 1.21, Sodium Level 138, Potassium Level 4.2, Chloride Level 100, Carbon Dioxide Level 33H, Calcium Level 7.5L, Aspartate Amino Transf (AST/SGOT) 14, Alanine Aminotransferase (ALT/SGPT) 13, Alkaline Phosphatase 90, Total Bilirubin 0.3, Total Protein 5.9L, Albumin 2.6L, Magnesium Level 1.9, Albumin/ Globulin Ratio 0.79L CBC/BMP Laboratory Tests 04/20/17 09:20 Red Blood Count 3.83 L, Mean Corpuscular Volume 89.6, Mean Corpuscular Hemoglobin 28.2, Mean Corpuscular Hemoglobin Concent 31.5 L, Red Cell Distribution Width 15.6 H, Neutrophils (%) (Auto) 82.3 H, Lymphocytes (%) (Auto ) 5.0 L, Monocytes (%) (Auto) 8.4 H, Eosinophils (%) (Auto) 0.0, Basophils (%) ( Auto) 0.3, Neutrophils # (Auto) 11.1 H, Lymphocytes # (Auto) 0.7 L, Monocytes # (Auto) 1.1 H, Eosinophils # (Auto) 0.0, Basophils # (Auto) 0.0, Calcium Level 7.5 L, Aspartate Amino Transf (AST/SGOT) 14, Alanine Aminotransferase (ALT/SGPT ) 13, Alkaline Phosphatase 90, Total Bilirubin 0.3, Total Protein 5.9 L, Albumin 2.6 L Microbiology Microbiology 04/16/17 Blood Culture - Preliminary, Resulted No Growth after 72 hours. All specime... 04/16/17 Blood Culture - Preliminary, Resulted No Growth after 72 hours. All specime... 04/16/17 Gram Stain - Final, Complete 04/16/17 Sputum Culture - Final, Complete Pseudomonas Aeruginosa 04/16/17 Influenza Virus Type A Antigen - Final, Complete 04/16/17 Influenza Virus Type B Antigen - Final, Complete GME ATTESTATION GME ATTESTATION My faculty preceptor for this patient encounter was physically present during the encounter and was fully available. All aspects of the patient interview, examination, medical decision making process, and medical care plan development were reviewed and approved by the faculty preceptor. The faculty preceptor is aware and concurs with the plan as stated in the body of this note and will attest to such by his/her cosignature. ANA MARÍA CHRISTOPHER DO Apr 20, 2017 12:43 Melecio Venegas M.D. Apr 24, 2017 08:18
[2017-04-20 16:00] VITALS: BP 104/51
[2017-04-20 20:00] VITALS: BP 110/61
[2017-04-20] MEDS: ATORVASTATIN 20 MG TAB PO SCH (21:24)
[2017-04-21] VITALS: BP 111/64
[2017-04-21] MEDS: methylPREDNISolone INJ 125 MG/2 ML VIAL (J2930) IV SCH ×2 (01:44→14:12)
[2017-04-21] MEDS: IPRATROPIUM 0.5MG/ALBUTEROL 2.5MG INH SOL UD 3ML (DUONEB)(J7620) NEB SCH ×4 (02:00→20:00)
[2017-04-21 04:00] VITALS: BP 101/56
[2017-04-21] MEDS: SODIUM CHLORIDE 0.9% INJ 10 ML SYR IV SCH ×2 (06:01→17:44)
[2017-04-21] MEDS: SLF 3 ML SYR IV SCH ×3 (06:01→21:06)
[2017-04-21] MEDS: TORSEMIDE 20 MG TAB PO SCH ×2 (06:01→17:43)
[2017-04-21] MEDS: LEVOTHYROXINE 50MCG TABLET (0.05MG) PO SCH (06:01)
[2017-04-21 06:23] LABS: MEAN CORPUSCULAR HEMOGLOBIN 27.7 pg (27.0-33.0); MEAN CORPUSCULAR HGB CONC 31.1 g/dl (32.0-36.5); MEAN CORPUSCULAR VOLUME 89.2 fl (80.0-96.0); PLATELET COUNT, AUTOMATED 343 10^3/uL (150-450); RED CELL DISTRIBUTION WIDTH 15.6 % (11.5-14.5); WHITE BLOOD COUNT 14.3 10^3/uL (4.0-10.0)
[2017-04-21 06:24] LABS: ADD MANUAL DIFFER YES; DIFF SLIDE NUMBER 21; POS COUNT POS FLAG; POSITIVE MORPH POS FLAG
[2017-04-21 06:46] LABS: ALBUMIN 2.5 GM/DL (3.2-5.2); ALBUMIN/GLOBULIN RATIO 0.76 (1.00-1.93); ALKALINE PHOSPHATASE 85 U/L (45-117); ALT/SGPT 13 U/L (12-78); ANION GAP 7 MEQ/L (8-16); AST/SGOT 14 U/L (7-37); BILIRUBIN,TOTAL 0.2 MG/DL (0.2-1.0); BLOOD UREA NITROGEN 35 MG/DL (7-18); CALCIUM LEVEL 6.8 MG/DL (8.8-10.2); CARBON DIOXIDE LEVEL 32 MEQ/L (21-32); CHLORIDE LEVEL 101 MEQ/L (98-107); CREATININE FOR GFR 1.13 MG/DL (0.70-1.30); GLOMERULAR FILTRATION RATE > 60.0 (>42); GLUCOSE, FASTING 112 MG/DL (83-110); POTASSIUM SERUM 4.8 MEQ/L (3.5-5.1); SODIUM LEVEL 140 MEQ/L (136-145); TOTAL PROTEIN 5.8 GM/DL (6.4-8.2)
[2017-04-21 07:01] LABS: ANISOCYTOSIS 1+
[2017-04-21 07:02] LABS: HYPOCHROMASIA 1+
[2017-04-21] MEDS: TIOTROPIUM INHALER/CAPSULE (SPIRIVA) INH SCH (07:19)
[2017-04-21] MEDS: ADVAIR HFA 230/21MCG INHALER INH SCH ×2 (07:19→20:32)
[2017-04-21 08:00] VITALS: BP 110/54
[2017-04-21] MEDS: LevoFLOXacin IV 500 MG in APPROPRIATE DILUENT 1 EA IV SCH (08:28)
[2017-04-21] MEDS: HEPARIN SOD (PORCINE) 5000 UNITS/ML VIAL SQ SCH ×2 (08:29→21:06)
[2017-04-21] MEDS: TAMSULOSIN 0.4 MG CAP PO SCH (08:29)
[2017-04-21] MEDS: PANTOPRAZOLE 40MG TAB (PROTONIX) PO SCH ×2 (08:29→21:06)
[2017-04-21] MEDS: SPIRONOLACTONE 50 MG TAB PO SCH (08:29)
[2017-04-21] MEDS: ASPIRIN 81 MG ENTERIC TAB PO SCH (08:29)
[2017-04-21] MEDS: BISOPROLOL FUMARATE 10 MG TAB PO SCH (08:30)
[2017-04-21] MEDS: MEROPENEM INJ 1 GM in APPROPRIATE DILUENT 1 EA IV SCH ×2 (09:44→21:06)
[2017-04-21 12:00] VITALS: BP 103/57
--- NOTE | 2017-04-21 15:02 | IPNPDOC ---
Subjective Date Seen The patient was seen on 04/21/17. Subjective Chief Complaint/HPI The patient is a 72-year-old male admitted with a reason for visit of Acute Exacerbation Of Chf,Diastolic Chf. Events since last encounter Patient states he feels better. Is eating well and sitting up at bedside waiting for meal. Has been keeping legs elevated in bed and will be keeping elevated while sitting in chair at bedside. Has had no fevers. No chest pain. Constitutional: Denies: Chills, Fever ENT: Denies: Head Aches Pulmonary: Denies: Dyspnea, Cough Objective Physical Examination General Exam: Positive: Alert, Cooperative, No Acute Distress Eye Exam: Positive: PERRLA Neck Exam: Positive: Supple, Negative: JVD, thyromegaly Chest Exam: Positive: Wheezing Heart Exam: Positive: Rate Normal, Normal S1, Normal S2, Negative: Murmurs, Rubs Abdomen Exam: Positive: Normal bowel sounds, Soft Extremity Exam: Positive: Edema (2+ up to knees bilaterally) Skin Exam: Positive: Other skin issue (skin consistent with chronic edema) Neuro Exam: Positive: Normal Speech Assessment /Plan Problems (1) COPD (chronic obstructive pulmonary disease) Status: Chronic Problem Text: Continue to monitor vitals. Continue steroids, Solumedrol 60 mg IV q12h day 5. (2) Pseudomonas aeruginosa infection Problem Text: Continue IV Levaquin and Meropenem, started 04/19/17. Positive pseudomonas culture. (3) Heart failure, systolic and diastolic, acute on chronic Status: Acute Problem Text: Cr at baseline. Continue Torsemide 60 mg BID. Monitor I+Os. (4) Stasis dermatitis of both legs Status: Chronic Problem Text: Patient is trying to keep legs elevated during the day. Swelling is better than before. Continue torsemide to diuresis. (5) CKD (chronic kidney disease), stage III Status: Acute Problem Text: Cr 1.21. Stable. Baseline 1.1-1.2 as baseline (6) CAD (coronary artery disease) Status: Chronic Problem Text: Continue aspirin and statin. Follows with [facility]. (7) Hyperlipidemia Status: Chronic Response to Treatment: Stable Problem Specific Plan: Monitor Clinically Problem Text: Continue Statin. (8) HTN (hypertension) Status: Chronic Problem Text: Pressures within target. Monitor vitals. Bisoprolol on HOLD due to hypotension (9) PMR (polymyalgia rheumatica) Status: Chronic Problem Specific Plan: Monitor Clinically (10) BPH (benign prostatic hyperplasia) Status: Chronic Problem Specific Plan: Monitor Clinically (11) Chronic anemia Status: Chronic Problem Specific Plan: Monitor Clinically (12) GERD (gastroesophageal reflux disease) Status: Chronic (13) Hypothyroidism Status: Chronic Problem Specific Plan: Monitor Clinically Problem Text: TSH 3.45 on 03/12/17 (14) Lung mass Status: Chronic Problem Text: monitored by Pulmonology, Dr. Grover Plan/VTE VTE Prophylaxis Ordered?: Yes VS, I&O, 24H, Fishbone Vital Signs/I&O Vital Signs Date Time Temp Pulse Resp B/P (MAP) Pulse Ox O2 Delivery O2 Flow Rate FiO2 04/21/17 12:00 98.6 68 18 103/57 (72) 98 Nasal Cannula 3.0 I&O- Last 24 Hours up to 6 AM 04/22/17 06:00 Intake Total 360 ml Output Total 450 ml Balance -90 ml Laboratory Data 24H LABS Laboratory Tests 2 04/21/17 06:03: Immature Granulocyte % (Auto) , Nucleated Red Blood Cells % (auto) 0.1H, Neutrophils 83H, Lymphocytes (Manual) 3L, Monocytes (Manual) 10H, Metamyelocytes 3H, Promyelocytes 1H, Platelet Estimate NORMAL, Hypochromasia 1+ , Basophilic Stippling 1+, Anisocytosis 1+, Anion Gap 7L, Glomerular Filtration Rate > 60.0, Blood Urea Nitrogen 35H, Creatinine 1.13, Sodium Level 140, Potassium Level 4.8, Chloride Level 101, Carbon Dioxide Level 32, Calcium Level 6.8L, Aspartate Amino Transf (AST/SGOT) 14, Alanine Aminotransferase (ALT/SGPT) 13, Alkaline Phosphatase 85, Total Bilirubin 0.2, Total Protein 5.8L, Albumin 2.5L, Albumin/Globulin Ratio 0.76L CBC/BMP Laboratory Tests 04/21/17 06:03 Red Blood Count 3.79 L, Mean Corpuscular Volume 89.2, Mean Corpuscular Hemoglobin 27.7, Mean Corpuscular Hemoglobin Concent 31.1 L, Red Cell Distribution Width 15.6 H, Calcium Level 6.8 L, Aspartate Amino Transf (AST/SGOT ) 14, Alanine Aminotransferase (ALT/SGPT) 13, Alkaline Phosphatase 85, Total Bilirubin 0.2, Total Protein 5.8 L, Albumin 2.5 L Microbiology Microbiology 04/16/17 Blood Culture - Preliminary, Resulted No Growth after 72 hours. All specime... 04/16/17 Blood Culture - Final, Complete NO GROWTH AFTER 5 DAYS 04/16/17 Gram Stain - Final, Complete 04/16/17 Sputum Culture - Final, Complete Pseudomonas Aeruginosa 04/16/17 Influenza Virus Type A Antigen - Final, Complete 04/16/17 Influenza Virus Type B Antigen - Final, Complete GME ATTESTATION GME ATTESTATION My faculty preceptor for this patient encounter was physically present during the encounter and was fully available. All aspects of the patient interview, examination, medical decision making process, and medical care plan development were reviewed and approved by the faculty preceptor. The faculty preceptor is aware and concurs with the plan as stated in the body of this note and will attest to such by his/her cosignature. ATTENDING NOTE Patient was personally evaluated by myself. The case was reviewed with the PGY- 2. SAMM LERMA DO Apr 21, 2017 15:02 Melecio Venegas M.D. May 02, 2017 12:42
[2017-04-21 16:00] VITALS: BP 97/51
[2017-04-21 20:00] VITALS: BP 113/63
[2017-04-21] MEDS: ATORVASTATIN 20 MG TAB PO SCH (21:06)
[2017-04-22] VITALS (7 sets, daily range): BP systolic 114–128; BP diastolic 53–70
[2017-04-22] MEDS: IPRATROPIUM 0.5MG/ALBUTEROL 2.5MG INH SOL UD 3ML (DUONEB)(J7620) NEB SCH ×4 (02:00→20:00)
[2017-04-22] MEDS: methylPREDNISolone INJ 125 MG/2 ML VIAL (J2930) IV SCH ×2 (02:07→14:30)
[2017-04-22] MEDS: SODIUM CHLORIDE 0.9% INJ 10 ML SYR IV PRN ×3 (02:08→14:29)
[2017-04-22] MEDS: SLF 3 ML SYR IV SCH (05:26)
[2017-04-22] MEDS: LevoFLOXacin 500 MG TABLET PO SCH (05:34)
[2017-04-22] MEDS: SODIUM CHLORIDE 0.9% INJ 10 ML SYR IV SCH ×2 (05:34→17:11)
[2017-04-22] MEDS: LEVOTHYROXINE 50MCG TABLET (0.05MG) PO SCH (05:34)
[2017-04-22 06:00] LABS: MEAN CORPUSCULAR HEMOGLOBIN 28.3 pg (27.0-33.0); MEAN CORPUSCULAR HGB CONC 31.8 g/dl (32.0-36.5); MEAN CORPUSCULAR VOLUME 89.1 fl (80.0-96.0); PLATELET COUNT, AUTOMATED 322 10^3/uL (150-450); RED CELL DISTRIBUTION WIDTH 15.7 % (11.5-14.5); WHITE BLOOD COUNT 15.3 10^3/uL (4.0-10.0)
[2017-04-22 06:06] LABS: POSITIVE MORPH POS FLAG
[2017-04-22 06:07] LABS: ADD MANUAL DIFFER YES; DIFF SLIDE NUMBER 19; POS COUNT POS FLAG
[2017-04-22] MEDS: TORSEMIDE 20 MG TAB PO SCH (06:17)
[2017-04-22 06:26] LABS: ALBUMIN 2.4 GM/DL (3.2-5.2); ALBUMIN/GLOBULIN RATIO 0.83 (1.00-1.93); ALKALINE PHOSPHATASE 70 U/L (45-117); ALT/SGPT 17 U/L (12-78); ANION GAP 5 MEQ/L (8-16); AST/SGOT 19 U/L (7-37); BILIRUBIN,TOTAL 0.2 MG/DL (0.2-1.0); BLOOD UREA NITROGEN 38 MG/DL (7-18); CALCIUM LEVEL 6.6 MG/DL (8.8-10.2); CARBON DIOXIDE LEVEL 33 MEQ/L (21-32); CHLORIDE LEVEL 100 MEQ/L (98-107); CREATININE FOR GFR 1.16 MG/DL (0.70-1.30); GLOMERULAR FILTRATION RATE > 60.0 (>42); GLUCOSE, FASTING 118 MG/DL (83-110); POTASSIUM SERUM 4.6 MEQ/L (3.5-5.1); SODIUM LEVEL 138 MEQ/L (136-145); TOTAL PROTEIN 5.3 GM/DL (6.4-8.2)
[2017-04-22 06:30] LABS: POLYCHROMASIA 1+
[2017-04-22] MEDS: TIOTROPIUM INHALER/CAPSULE (SPIRIVA) INH SCH (08:34)
[2017-04-22] MEDS: ADVAIR HFA 230/21MCG INHALER INH SCH ×2 (08:34→20:42)
[2017-04-22] MEDS: SPIRONOLACTONE 50 MG TAB PO SCH (09:51)
[2017-04-22] MEDS: TAMSULOSIN 0.4 MG CAP PO SCH (09:51)
[2017-04-22] MEDS: PANTOPRAZOLE 40MG TAB (PROTONIX) PO SCH ×2 (09:51→21:01)
[2017-04-22] MEDS: ASPIRIN 81 MG ENTERIC TAB PO SCH (09:51)
[2017-04-22] MEDS: BISOPROLOL FUMARATE 10 MG TAB PO SCH (09:52)
[2017-04-22] MEDS: MEROPENEM INJ 1 GM in APPROPRIATE DILUENT 1 EA IV SCH (09:53)
[2017-04-22] MEDS: HEPARIN SOD (PORCINE) 5000 UNITS/ML VIAL SQ SCH ×2 (09:53→21:01)
--- NOTE | 2017-04-22 11:26 | IPNPDOC ---
Subjective Date Seen The patient was seen on 04/22/17. Subjective Chief Complaint/HPI The patient is a 72-year-old male admitted with a reason for visit of Acute Exacerbation Of Chf,Diastolic Chf. Events since last encounter Patient was seen and examined at bedside. Patient states that he does not sleep well at the hospital because of the constant interruptions throughout the night. Patient otherwise does not have any complaints. He denies CP, SOB, fevers. Objective Physical Examination General Exam: Positive: Alert, Cooperative, No Acute Distress Eye Exam: Positive: PERRLA Neck Exam: Positive: Supple, Negative: JVD, thyromegaly Chest Exam: Positive: Wheezing Heart Exam: Positive: Rate Normal, Normal S1, Normal S2, Negative: Murmurs, Rubs Abdomen Exam: Positive: Normal bowel sounds, Soft Extremity Exam: Positive: Edema (2+ up to knees bilaterally) Skin Exam: Positive: Other skin issue (skin consistent with chronic edema) Neuro Exam: Positive: Normal Speech Assessment /Plan Problems (1) COPD (chronic obstructive pulmonary disease) Status: Chronic Problem Text: Continue to monitor vitals. Continue steroids, Solumedrol 60 mg IV q12h day 6. (2) Pseudomonas aeruginosa infection Problem Text: Continue IV Levaquin and Meropenem, started 04/19/17. Positive pseudomonas culture. No prior pseudomonas infections. (3) Heart failure, systolic and diastolic, acute on chronic Status: Acute Problem Text: Cr at baseline. Increased Torsemide 100 mg BID. Monitor I+Os. Patient increasing in weight, continues to have less than optimal urine output, and continues to have severe pitting edema in the B/L LE (4) Stasis dermatitis of both legs Status: Chronic Problem Text: Patient is trying to keep legs elevated during the day. Swelling is better than before. Continue torsemide to diuresis. (5) CKD (chronic kidney disease), stage III Status: Acute Problem Text: Cr 1.21. Stable. Baseline 1.1-1.2 as baseline (6) CAD (coronary artery disease) Status: Chronic Problem Text: Continue aspirin and statin. Follows with [facility]. (7) Hyperlipidemia Status: Chronic Response to Treatment: Stable Problem Specific Plan: Monitor Clinically Problem Text: Continue Statin. (8) HTN (hypertension) Status: Chronic Problem Text: Pressures within target. Monitor vitals. Bisoprolol on HOLD due to hypotension (9) PMR (polymyalgia rheumatica) Status: Chronic Problem Specific Plan: Monitor Clinically (10) BPH (benign prostatic hyperplasia) Status: Chronic Problem Specific Plan: Monitor Clinically (11) Chronic anemia Status: Chronic Problem Specific Plan: Monitor Clinically (12) GERD (gastroesophageal reflux disease) Status: Chronic (13) Hypothyroidism Status: Chronic Problem Specific Plan: Monitor Clinically Problem Text: TSH 3.45 on 03/12/17 (14) Lung mass Status: Chronic Problem Text: monitored by Pulmonology, Dr. Grover Plan/VTE VTE Prophylaxis Ordered?: Yes VS, I&O, 24H, Fishbone Vital Signs/I&O Vital Signs Date Time Temp Pulse Resp B/P (MAP) Pulse Ox O2 Delivery O2 Flow Rate FiO2 04/22/17 09:52 97 128/68 04/22/17 08:32 Nasal Cannula 3.0 04/22/17 08:00 97.1 22 98 I&O- Last 24 Hours up to 6 AM 04/23/17 06:00 Intake Total 360 ml Balance 360 ml Laboratory Data 24H LABS Laboratory Tests 2 04/22/17 05:35: Immature Granulocyte % (Auto) , Nucleated Red Blood Cells % (auto) 0.0, Neutrophils 86H, Lymphocytes (Manual) 4L, Monocytes (Manual) 9H, Metamyelocytes 1H, Platelet Estimate NORMAL, Polychromasia 1+, Basophilic Stippling 1+, Anion Gap 5L, Glomerular Filtration Rate > 60.0, Blood Urea Nitrogen 38H, Creatinine 1.16, Sodium Level 138, Potassium Level 4.6, Chloride Level 100, Carbon Dioxide Level 33H, Calcium Level 6.6L, Aspartate Amino Transf (AST/SGOT) 19, Alanine Aminotransferase (ALT/SGPT) 17, Alkaline Phosphatase 70, Total Bilirubin 0.2, Total Protein 5.3L, Albumin 2.4L, Albumin/Globulin Ratio 0.83L CBC/BMP Laboratory Tests 04/22/17 05:35 Red Blood Count 3.67 L, Mean Corpuscular Volume 89.1, Mean Corpuscular Hemoglobin 28.3, Mean Corpuscular Hemoglobin Concent 31.8 L, Red Cell Distribution Width 15.7 H, Calcium Level 6.6 L, Aspartate Amino Transf (AST/SGOT ) 19, Alanine Aminotransferase (ALT/SGPT) 17, Alkaline Phosphatase 70, Total Bilirubin 0.2, Total Protein 5.3 L, Albumin 2.4 L Microbiology Microbiology 04/16/17 Blood Culture - Final, Complete NO GROWTH AFTER 5 DAYS 04/16/17 Blood Culture - Final, Complete NO GROWTH AFTER 5 DAYS 04/16/17 Gram Stain - Final, Complete 04/16/17 Sputum Culture - Final, Complete Pseudomonas Aeruginosa 04/16/17 Influenza Virus Type A Antigen - Final, Complete 04/16/17 Influenza Virus Type B Antigen - Final, Complete GME ATTESTATION GME ATTESTATION My faculty preceptor for this patient encounter was physically present during the encounter and was fully available. All aspects of the patient interview, examination, medical decision making process, and medical care plan development were reviewed and approved by the faculty preceptor. The faculty preceptor is aware and concurs with the plan as stated in the body of this note and will attest to such by his/her cosignature. ANA MARÍA CHRISTOPHER DO Apr 22, 2017 11:26
[2017-04-22] MEDS: TORSEMIDE 100 MG TAB PO SCH (17:11)
[2017-04-22] MEDS: ATORVASTATIN 20 MG TAB PO SCH (21:01)
[2017-04-23] VITALS (7 sets, daily range): BP systolic 106–130; BP diastolic 56–69
[2017-04-23] MEDS: IPRATROPIUM 0.5MG/ALBUTEROL 2.5MG INH SOL UD 3ML (DUONEB)(J7620) NEB SCH ×4 (01:24→20:00)
[2017-04-23] MEDS: methylPREDNISolone INJ 125 MG/2 ML VIAL (J2930) IV SCH (02:40)
[2017-04-23] MEDS: SODIUM CHLORIDE 0.9% INJ 10 ML SYR IV SCH ×2 (05:40→17:39)
[2017-04-23] MEDS: LevoFLOXacin 500 MG TABLET PO SCH (05:40)
[2017-04-23] MEDS: LEVOTHYROXINE 50MCG TABLET (0.05MG) PO SCH (05:40)
[2017-04-23 05:55] LABS: MEAN CORPUSCULAR HEMOGLOBIN 27.8 pg (27.0-33.0); MEAN CORPUSCULAR HGB CONC 31.4 g/dl (32.0-36.5); MEAN CORPUSCULAR VOLUME 88.5 fl (80.0-96.0); PLATELET COUNT, AUTOMATED 290 10^3/uL (150-450); RED CELL DISTRIBUTION WIDTH 15.7 % (11.5-14.5); WHITE BLOOD COUNT 16.4 10^3/uL (4.0-10.0)
[2017-04-23 06:08] LABS: ADD MANUAL DIFFER YES; DIFF SLIDE NUMBER 9; POS COUNT POS FLAG; POSITIVE DIFF POS FLAG; POSITIVE MORPH POS FLAG; WBC SCAT POS FLAG
[2017-04-23 06:38] LABS: ALBUMIN 2.6 GM/DL (3.2-5.2); ALBUMIN/GLOBULIN RATIO 0.87 (1.00-1.93); ALKALINE PHOSPHATASE 70 U/L (45-117); ALT/SGPT 19 U/L (12-78); ANION GAP 8 MEQ/L (8-16); AST/SGOT 22 U/L (7-37); BILIRUBIN,TOTAL 0.2 MG/DL (0.2-1.0); BLOOD UREA NITROGEN 44 MG/DL (7-18); CALCIUM LEVEL 6.1 MG/DL (8.8-10.2); CARBON DIOXIDE LEVEL 33 MEQ/L (21-32); CHLORIDE LEVEL 99 MEQ/L (98-107); CREATININE FOR GFR 1.23 MG/DL (0.70-1.30); GLOMERULAR FILTRATION RATE > 60.0 (>42); GLUCOSE, FASTING 124 MG/DL (83-110); POTASSIUM SERUM 4.9 MEQ/L (3.5-5.1); SODIUM LEVEL 140 MEQ/L (136-145); TOTAL PROTEIN 5.6 GM/DL (6.4-8.2)
[2017-04-23 06:46] LABS: ANISOCYTOSIS 1+; POLYCHROMASIA 1+
[2017-04-23] MEDS: ADVAIR HFA 230/21MCG INHALER INH SCH ×2 (08:55→20:21)
[2017-04-23] MEDS: TIOTROPIUM INHALER/CAPSULE (SPIRIVA) INH SCH (08:55)
[2017-04-23] MEDS ORDERED: predniSONE 20 MG TAB PO SCH (09:00)
--- NOTE | 2017-04-23 09:03 | IPNPDOC ---
Subjective Date Seen The patient was seen on 04/23/17. Subjective Chief Complaint/HPI The patient is a 72-year-old male admitted with a reason for visit of Acute Exacerbation Of Chf,Diastolic Chf. Events since last encounter Feels he is at baseline. States legs looked great when in bed. edema and lg discoloration returned when legs are dependent. States ready for DC home tomorrow. Has home oxygen. Constitutional: Denies: Chills, Fever, Night Sweats Pulmonary: Reports: Dyspnea (baseline per patient) Cardiovascular: Denies: Chest Pain, Palpitations, Orthopnea, Paroxysmal Noc. Dyspnea, Lt Headedness Gastrointestinal: Denies: Nausea, Vomiting, Abdominal Pain, Diarrhea, Constipation Genitourinary: Denies: Dysuria, Frequency, Incontinence, Retention Psych: Reports: Mood Normal, Denies: Depression, Memory Issues Objective Physical Examination General Exam: Positive: Alert, Cooperative, No Acute Distress Eye Exam: Positive: PERRLA Neck Exam: Positive: Supple, Negative: JVD, thyromegaly Chest Exam: Positive: Wheezing (occasional) Heart Exam: Positive: Rate Normal, Normal S1, Normal S2, Negative: Murmurs, Rubs Abdomen Exam: Positive: Normal bowel sounds, Soft Extremity Exam: Positive: Edema (2+ up to knees bilaterally) Skin Exam: Positive: Other skin issue (skin consistent with chronic edema) Neuro Exam: Positive: Normal Speech Assessment /Plan Problems (1) COPD (chronic obstructive pulmonary disease) Status: Chronic Problem Text: 04/23/17: Wean down to po prednisone 60 mg po bid. Will reduce to 30 bid at this point. Agree with observation by Dr. Archer that majority of his edema is likely secondary to cor pulmonale. Still he may benefit from ongoing diuresis, as long as BP and renal function tolerate (JR) Continue to monitor vitals. Continue steroids, Solumedrol 60 mg IV q12h day 6. (2) Pseudomonas aeruginosa infection Problem Text: 04/23/17: on po Levaquin. Continue IV Levaquin and Meropenem, started 04/19/17. Positive pseudomonas culture. No prior pseudomonas infections. (3) Heart failure, systolic and diastolic, acute on chronic Status: Acute Problem Text: 04/23/17: diuresed 1000ml with Torsemide 100 mg po bid. Cr at baseline. Increased Torsemide 100 mg BID. Monitor I+Os. Patient increasing in weight, continues to have less than optimal urine output, and continues to have severe pitting edema in the B/L LE (4) Stasis dermatitis of both legs Status: Chronic Problem Text: 04/23/17: apply teds stockings for compression today. has compression stockings at home. Patient is trying to keep legs elevated during the day. Swelling is better than before. Continue torsemide to diuresis. (5) CKD (chronic kidney disease), stage III Status: Acute Problem Text: Cr 1.21. Stable. Baseline 1.1-1.2 as baseline (6) CAD (coronary artery disease) Status: Chronic Problem Text: Continue aspirin and statin. Follows with [facility]. (7) Hyperlipidemia Status: Chronic Response to Treatment: Stable Problem Specific Plan: Monitor Clinically Problem Text: Continue Statin. (8) HTN (hypertension) Status: Chronic Problem Text: Pressures within target. Monitor vitals. Bisoprolol on HOLD due to hypotension (9) PMR (polymyalgia rheumatica) Status: Chronic Problem Specific Plan: Monitor Clinically (10) BPH (benign prostatic hyperplasia) Status: Chronic Problem Specific Plan: Monitor Clinically (11) Chronic anemia Status: Chronic Problem Specific Plan: Monitor Clinically (12) GERD (gastroesophageal reflux disease) Status: Chronic (13) Hypothyroidism Status: Chronic Problem Specific Plan: Monitor Clinically Problem Text: TSH 3.45 on 03/12/17 (14) Lung mass Status: Chronic Problem Text: monitored by Pulmonology, Dr. Grover Plan/VTE VTE Prophylaxis Ordered?: Yes VS, I&O, 24H, Fishbone Vital Signs/I&O Vital Signs Date Time Temp Pulse Resp B/P (MAP) Pulse Ox O2 Delivery O2 Flow Rate FiO2 04/23/17 07:58 97.6 88 20 130/56 (80) 98 Nasal Cannula 3.0 I&O- Last 24 Hours up to 6 AM 04/24/17 06:00 Intake Total 0 ml Output Total 0 ml Balance 0 ml Laboratory Data 24H LABS Laboratory Tests 2 04/23/17 05:38: Immature Granulocyte % (Auto) , White Blood Count 16.4H, Red Blood Count 3.74L, Hemoglobin 10.4L, Hematocrit 33.1L, Mean Corpuscular Volume 88.5, Mean Corpuscular Hemoglobin 27.8, Mean Corpuscular Hemoglobin Concent 31.4L, Red Cell Distribution Width 15.7H, Platelet Count 290, Eosinophils (%) (Auto) , Nucleated Red Blood Cells % (auto) 0.2H, Neutrophils 80H, Lymphocytes (Manual) 2L, Monocytes (Manual) 10H, Metamyelocytes 2H, Myelocytes 5H, Atypical Lymphocytes 1, Platelet Estimate NORMAL, Polychromasia 1+, Basophilic Stippling 1+, Anisocytosis 1+, Anion Gap 8, Glomerular Filtration Rate > 60.0, Blood Urea Nitrogen 44H, Creatinine 1.23, Sodium Level 140, Potassium Level 4.9, Chloride Level 99, Carbon Dioxide Level 33H, Calcium Level 6.1L, Aspartate Amino Transf ( AST/SGOT) 22, Alanine Aminotransferase (ALT/SGPT) 19, Alkaline Phosphatase 70, Total Bilirubin 0.2, Total Protein 5.6L, Albumin 2.6L, Albumin/Globulin Ratio 0.87L CBC/BMP Laboratory Tests 04/23/17 05:38 Red Blood Count 3.74 L, Mean Corpuscular Volume 88.5, Mean Corpuscular Hemoglobin 27.8, Mean Corpuscular Hemoglobin Concent 31.4 L, Red Cell Distribution Width 15.7 H, Eosinophils (%) (Auto) , Calcium Level 6.1 L, Aspartate Amino Transf (AST/SGOT) 22, Alanine Aminotransferase (ALT/SGPT) 19, Alkaline Phosphatase 70, Total Bilirubin 0.2, Total Protein 5.6 L, Albumin 2.6 L Microbiology Microbiology 04/16/17 Blood Culture - Final, Complete NO GROWTH AFTER 5 DAYS 04/16/17 Blood Culture - Final, Complete NO GROWTH AFTER 5 DAYS 04/16/17 Gram Stain - Final, Complete 04/16/17 Sputum Culture - Final, Complete Pseudomonas Aeruginosa 04/16/17 Influenza Virus Type A Antigen - Final, Complete 04/16/17 Influenza Virus Type B Antigen - Final, Complete Louise Cardenas Apr 23, 2017 09:03 Олег Oates MD Apr 23, 2017 13:36
[2017-04-23] MEDS: TAMSULOSIN 0.4 MG CAP PO SCH (09:07)
[2017-04-23] MEDS: HEPARIN SOD (PORCINE) 5000 UNITS/ML VIAL SQ SCH ×2 (09:08→21:00)
[2017-04-23] MEDS: PANTOPRAZOLE 40MG TAB (PROTONIX) PO SCH ×2 (09:08→21:00)
[2017-04-23] MEDS: TORSEMIDE 100 MG TAB PO SCH ×2 (09:08→17:38)
[2017-04-23] MEDS: SPIRONOLACTONE 50 MG TAB PO SCH (09:08)
[2017-04-23] MEDS: ASPIRIN 81 MG ENTERIC TAB PO SCH (09:08)
[2017-04-23] MEDS: BISOPROLOL FUMARATE 10 MG TAB PO SCH (09:08)
[2017-04-23] MEDS: predniSONE 10 MG TAB PO SCH (20:57)
[2017-04-23] MEDS: ATORVASTATIN 20 MG TAB PO SCH (21:00)
[2017-04-24] MEDS: IPRATROPIUM 0.5MG/ALBUTEROL 2.5MG INH SOL UD 3ML (DUONEB)(J7620) NEB SCH ×3 (02:03→13:23)
[2017-04-24 04:00] VITALS: BP 127/66
[2017-04-24] MEDS: SODIUM CHLORIDE 0.9% INJ 10 ML SYR IV SCH (05:59)
[2017-04-24] MEDS: LevoFLOXacin 500 MG TABLET PO SCH (05:59)
[2017-04-24] MEDS: LEVOTHYROXINE 50MCG TABLET (0.05MG) PO SCH (05:59)
[2017-04-24 06:42] LABS: MEAN CORPUSCULAR HEMOGLOBIN 27.7 pg (27.0-33.0); MEAN CORPUSCULAR HGB CONC 31.7 g/dl (32.0-36.5); MEAN CORPUSCULAR VOLUME 87.4 fl (80.0-96.0); PLATELET COUNT, AUTOMATED 276 10^3/uL (150-450); RED CELL DISTRIBUTION WIDTH 15.8 % (11.5-14.5); WHITE BLOOD COUNT 18.4 10^3/uL (4.0-10.0)
[2017-04-24 06:45] LABS: ADD MANUAL DIFFER YES; DIFF SLIDE NUMBER 2; POS COUNT POS FLAG; POSITIVE DIFF POS FLAG; POSITIVE MORPH POS FLAG; WBC SCAT POS FLAG
[2017-04-24 07:12] LABS: POLYCHROMASIA 1+
[2017-04-24 07:14] LABS: ALBUMIN 2.7 GM/DL (3.2-5.2); ALBUMIN/GLOBULIN RATIO 0.93 (1.00-1.93); ALKALINE PHOSPHATASE 67 U/L (45-117); ALT/SGPT 21 U/L (12-78); ANION GAP 8 MEQ/L (8-16); AST/SGOT 25 U/L (7-37); BILIRUBIN,TOTAL 0.2 MG/DL (0.2-1.0); BLOOD UREA NITROGEN 50 MG/DL (7-18); CALCIUM LEVEL 6.1 MG/DL (8.8-10.2); CARBON DIOXIDE LEVEL 34 MEQ/L (21-32); CHLORIDE LEVEL 96 MEQ/L (98-107); CREATININE FOR GFR 1.19 MG/DL (0.70-1.30); GLOMERULAR FILTRATION RATE > 60.0 (>42); GLUCOSE, FASTING 133 MG/DL (83-110); POTASSIUM SERUM 4.6 MEQ/L (3.5-5.1); SODIUM LEVEL 138 MEQ/L (136-145); TOTAL PROTEIN 5.6 GM/DL (6.4-8.2)
[2017-04-24] MEDS: TIOTROPIUM INHALER/CAPSULE (SPIRIVA) INH SCH (07:14)
[2017-04-24] MEDS: ADVAIR HFA 230/21MCG INHALER INH SCH (07:14)
[2017-04-24 08:00] VITALS: BP 111/65
[2017-04-24] MEDS ORDERED: TORS20TA2 PO (08:35)
[2017-04-24] MEDS: ASPIRIN 81 MG ENTERIC TAB PO SCH (08:48)
[2017-04-24] MEDS: predniSONE 10 MG TAB PO SCH (08:48)
[2017-04-24] MEDS: SPIRONOLACTONE 50 MG TAB PO SCH (08:49)
[2017-04-24] MEDS: TORSEMIDE 100 MG TAB PO SCH (08:49)
[2017-04-24] MEDS: TAMSULOSIN 0.4 MG CAP PO SCH (08:50)
[2017-04-24] MEDS: BISOPROLOL FUMARATE 10 MG TAB PO SCH (08:50)
[2017-04-24] MEDS: PANTOPRAZOLE 40MG TAB (PROTONIX) PO SCH (08:50)
[2017-04-24] MEDS: HEPARIN SOD (PORCINE) 5000 UNITS/ML VIAL SQ SCH (09:00)
[2017-04-24] MEDS ORDERED: LEVA1TAB2 PO (09:43)
[2017-04-24 12:00] VITALS: BP 106/64
[2017-04-24] MEDS ORDERED: PRED10TA2 PO (14:38)
--- NOTE | 2017-04-24 18:18 | REP ---
TWO VIEW CHEST: Two views of the chest are performed. COMPARISON: 04/16/2017 as well as other prior exams. The interstitial infiltrates on the 04/16/2017 exam have essentially resolved. There are bibasilar fibro atelectatic changes again noted as seen on multiple other prior exams with some minimal superimposed patchy atelectasis or infiltrate. Cardiomediastinal silhouette is unchanged with calcification and tortuosity of the thoracic aorta. There is a right arm PICC line with the tip in the superior vena cava. There is a left dual lead pace maker. There are degenerative changes of the spine. There are stable compression deformities of the lower thoracic spine. IMPRESSION: Improved bilateral interstitial infiltrates, essentially resolved compared to the 04/16/2017 exam. Bibasilar fibro atelectatic changes with some minimal superimposed atelectasis or infiltrate in each lung base. Signed by David Jameson MD 04/25/2017 08:26 P
--- NOTE | 2017-04-26 16:40 | DSES ---
DATE OF ADMISSION: 04/16/2017 DATE OF DISCHARGE: 04/24/2017 PRIMARY CARE PHYSICIAN: Moe Archer MD HISTORY OF PRESENT ILLNESS: 72-year-old gentleman who presented to [facility] Emergency Room on 04/16/2017, for complaints of progressive swelling of his legs the week prior with increasing shortness of breath. Workup in the emergency department (ED) proved positive for acute right heart failure and congestive heart failure exacerbation. Patient was subsequently admitted to progressive care unit (PCU). HOSPITAL COURSE: Patient was aggressively diuresed during his hospitalization, ending with a dose of torsemide 100 mg by mouth twice a day with significant diuresis. Patient is negative 5.5 liters since day of admission. Patient has tolerated well. He did have a chest x-ray completed, along with a sputum culture which proved positive for Pseudomonas aeruginosa. Patient was placed on Levaquin and tolerated that well. Patient has been ambulating without difficulty, tolerating his routine oxygen treatment, 2 liters nasal cannula with his saturations in the 97% range. Patient's edema did improve significantly. He does have dependent edema consistent with his peripheral vascular disease and compression stockings were applied. On physical examination today, vital signs are stable, he is afebrile. Most recent labs shows a hemoglobin and hematocrit of 10.3 and 32.5. Chemistry shows stable creatinine of 1.1, BUN of 8, potassium of 4.6, and a sodium level of 138. Most recent blood pressure 111/65. HEENT: Neck is supple without lymphadenopathy. CARDIOVASCULAR: Heart rate and rhythm are regular. PULMONARY: Lungs are diminished bibasilar, otherwise clear. ABDOMEN: Soft and nontender. BILATERAL LOWER EXTREMITIES: With 2+ pitting edema and a lg discoloration, otherwise stable. NEUROLOGIC: Patient is alert and oriented times three. PSYCHIATRIC: Affect is appropriate. Conversation is congruent. Patient maintains eye contact. ASSESSMENT: DISCHARGE DIAGNOSES: 1. Acute on chronic systolic and diastolic congestive heart failure. 2. Pseudomonas aeruginosa pneumonia. 3. Chronic obstructive pulmonary disease (COPD) exacerbation. 4. Stasis dermatitis of bilateral lower extremities. SECONDARY DIAGNOSES: Include: 1. Chronic kidney disease stage III. 2. Coronary artery disease (CAD). 3. Hyperlipidemia. 4. Hypertension. 5. Polymyalgia rheumatica. 6. BPH. 7. Chronic anemia. 8. Gastroesophageal reflux disease (GERD). 9. Hypothyroidism. 10. Lung mass. PLAN: The patient will followup with his primary care provider (PCP) within the next 5-7 days. He is to repeat complete blood count (CBC) and a basic metabolic profile within the next 2 days. He will have public health in the home and public health social services director was also recommended due to patient's difficulty caring for himself within the home. Diet is a 2 gram sodium 1500 mL fluid restriction. Activity is as tolerated. MEDICATIONS: Are as follows: - Levaquin 500 mg one by mouth daily for 7 more days - torsemide 80 mg by mouth twice a day, which is an increase from his 60 twice a day dosing - albuterol 2.5 mg every 4 hours as needed via nebulizer for shortness of breath - albuterol HFA two puffs every 4 hours as needed for shortness of breath - alendronate sodium 70 mg by mouth weekly - aspirin 81 mg daily - atorvastatin 80 mg by mouth nightly - bisoprolol 10 mg by mouth daily - diclofenac gel one dose transdermally four times a day as needed for pain - Nexium 40 mg by mouth twice a day - levothyroxine sodium 50 mcg one by mouth daily - nitroglycerin 0.4 mg tablet sublingual as needed for chest pain - ranitidine 300 mg one by mouth nightly - saline nasal spray every 2 hours as needed for nasal dryness - Advair HFA two puffs twice a day - simethicone two by mouth as needed for gas pain - spironolactone 50 mg by mouth daily - Flomax 0.4 mg by mouth daily - Spiriva HandiHaler one capful daily - tramadol 50 mg by mouth three times a day as needed for pain The patient is discharged in stable and satisfactory condition with no further questions at time of discharge.
== END 2017-04-24 14:35 | disposition home health service (06) | DRG 291 ==
LOC: M ED 11:38 → EDBD 11:38 → M ED INP 14:40 → M PCU 23:01
PROVIDERS: ADMIT General Practice; ATTEND Family Medicine
PROC: 02HV33Z Insertion of Infusion Device into Superior Vena Cava, Percutaneous Approach (ICD-10-PCS; principal; 2017-04-19)
DX: I13.0 Hypertensive heart and chronic kidney disease with heart failure and stage 1 through stage 4 chronic kidney disease, or unspecified chronic kidney disease (principal); I50.43 Acute on chronic combined systolic (congestive) and diastolic (congestive) heart failure; J15.1 Pneumonia due to Pseudomonas; J44.1 Chronic obstructive pulmonary disease with (acute) exacerbation; E03.9 Hypothyroidism, unspecified; I50.813 Acute on chronic right heart failure; A49.8 Other bacterial infections of unspecified site; I27.81 Cor pulmonale (chronic); F17.210 Nicotine dependence, cigarettes, uncomplicated; I87.2 Venous insufficiency (chronic) (peripheral); N18.3 Chronic kidney disease, stage 3 (moderate); Z91.040 Latex allergy status; Z91.013 Allergy to seafood; Z88.2 Allergy status to sulfonamides; Z88.5 Allergy status to narcotic agent; Z99.81 Dependence on supplemental oxygen; Z79.82 Long term (current) use of aspirin; Z79.899 Other long term (current) drug therapy

== ENCOUNTER → 2017-05-10 | Outpatient (REF) | payer MEDICARE ==
[2017-05-10 18:35] LABS: ALBUMIN 3.1 GM/DL (3.2-5.2); ANION GAP 7 MEQ/L (8-16); BLOOD UREA NITROGEN 28 MG/DL (7-18); CALCIUM LEVEL 8.2 MG/DL (8.8-10.2); CARBON DIOXIDE LEVEL 34 MEQ/L (21-32); CHLORIDE LEVEL 99 MEQ/L (98-107); CREATININE FOR GFR 1.01 MG/DL (0.70-1.30); GLOMERULAR FILTRATION RATE > 60.0 (>42); GLUCOSE, FASTING 75 MG/DL (83-110); PHOSPHORUS LEVEL 3.3 MG/DL (2.5-4.9); POTASSIUM SERUM 3.8 MEQ/L (3.5-5.1); SODIUM LEVEL 140 MEQ/L (136-145)
== END ==
LOC: M LAB REF 16:17
DX: I50.42 Chronic combined systolic (congestive) and diastolic (congestive) heart failure (principal)
CPT/HCPCS: 83735

== ENCOUNTER 2017-05-16 16:13 | Inpatient (IN) | payer MEDICARE ==
[2017-05-16 17:03] LABS: BASO % 0.3 % (0.0-1.0); EOS # 0.1 10^3/uL (0.0-0.50); EOS % 1.1 % (0.0-3.0); HEMATOCRIT 33.2 % (42.0-52.0); HEMOGLOBIN 10.3 g/dl (14.0-18.0); IMMATURE GRANULOCYTE # 0.2 10^3/uL (0-0); IMMATURE GRANULOCYTE % 1.4 % (0-0); LYMPH # 0.5 10^3/uL (1.5-4.5); LYMPH % 4.1 % (24.0-44.0); MEAN CORPUSCULAR HEMOGLOBIN 27.8 pg (27.0-33.0); MEAN CORPUSCULAR VOLUME 89.7 fl (80.0-96.0); MONO # 0.7 10^3/uL (0.0-0.8); MONO % 6.5 % (0.0-5.0); NEUTROPHILS # 9.8 10^3/uL (1.8-7.7); NEUTROPHILS % 86.6 % (36.0-66.0); PLATELET COUNT, AUTOMATED 273 10^3/uL (150-450); RED CELL DISTRIBUTION WIDTH 15.8 % (11.5-14.5); WHITE BLOOD COUNT 11.3 10^3/uL (4.0-10.0)
[2017-05-16 17:13] LABS: INR 0.92; PROTHROMBIN TIME 12.4 SECONDS (12.4-14.5)
[2017-05-16 17:51] LABS: CALCIUM LEVEL 8.4 MG/DL (8.8-10.2); CHLORIDE LEVEL 101 MEQ/L (98-107); CPK CREATINE PHOSPHOKINASE 46 U/L (39-308); CREATININE FOR GFR 1.28 MG/DL (0.70-1.30); POTASSIUM SERUM 4.5 MEQ/L (3.5-5.1); SODIUM LEVEL 141 MEQ/L (136-145); TROPONIN I < 0.02 NG/ML (< 0.10)
[2017-05-16 17:55] LABS: BLOOD UREA NITROGEN 32 MG/DL (7-18); CK-MB VALUE MASS 1.2 NG/ML (0.0-3.6); GLUCOSE, FASTING 116 MG/DL (83-110)
[2017-05-16 17:56] LABS: LACTIC ACID SEPSIS PROTOCOL 2.6 MMOL/L (0.4-2.0)
[2017-05-16 17:58] LABS: ALKALINE PHOSPHATASE 85 U/L (45-117); ALT/SGPT 19 U/L (12-78); AST/SGOT 19 U/L (7-37); BILIRUBIN,DIRECT 0.1 MG/DL (0.0-0.2); BILIRUBIN,TOTAL 0.3 MG/DL (0.2-1.0); NT-PRO BNP 810 PG/ML (<125); TOTAL PROTEIN 5.8 GM/DL (6.4-8.2)
[2017-05-16 18:08] LABS: ALBUMIN 3.3 GM/DL (3.2-5.2); ALBUMIN/GLOBULIN RATIO 1.32 (1.00-1.93)
[2017-05-16] MEDS: IPRATROPIUM 0.5MG/ALBUTEROL 2.5MG INH SOL UD 3ML (DUONEB)(J7620) NEB ×3 (18:08→18:40)
[2017-05-16] MEDS: NS 500 ML IV (18:11)
[2017-05-16 18:13] LABS: ANION GAP 7 MEQ/L (8-16); CARBON DIOXIDE LEVEL 33 MEQ/L (21-32)
[2017-05-16 18:21] LABS: ABG BASE EXCESS 5.9 (-2.0-2.0); ABG HCO3 32.6 MEQ/L (22.0-26.0); ABG O2 SATURATION 98.7 % (95.0-99.0); ABG PARTIAL PRESSURE CO2 58.3 mmHg (35.0-45.0); ABG PARTIAL PRESSURE O2 193.4 mmHg (75.0-100.0); ABG STANDARD HCO3 29.8 MEQ/L (22.0-26.0); ABG TOTAL CO2 34.4 MEQ/L (23.0-31.0); ABG pH (ARTERIAL) 7.365 UNITS (7.350-7.450)
[2017-05-16] MEDS: methylPREDNISolone INJ 125 MG/2 ML VIAL (J2930) IV (18:48)
[2017-05-16] MEDS: LevoFLOXacin IV 750 MG in APPROPRIATE DILUENT 1 EA IV (19:33)
[2017-05-16] MEDS: PANTOPRAZOLE 40MG TAB (PROTONIX) PO (21:00)
[2017-05-16] MEDS: FAMOTIDINE 20 MG TAB PO (21:00)
[2017-05-16] MEDS: ATORVASTATIN 20 MG TAB PO (21:00)
[2017-05-16] MEDS ORDERED: traMADol 50 MG TAB PO (22:15)
[2017-05-16] MEDS ORDERED: ONDANSETRON 4MG/2ML VIAL (J2405) IV (22:15)
[2017-05-16] MEDS ORDERED: SIMETHICONE 80 MG CHEW TAB PO (22:15)
[2017-05-16] MEDS ORDERED: SODIUM CHLORIDE NASAL 0.65% SPRAY BTL (OCEAN) (22:15)
[2017-05-16] MEDS ORDERED: ACETAMINOPHEN TAB 650MG DOSE (2X325MG) PO (22:15)
[2017-05-16] MEDS ORDERED: ALBUTEROL SULFATE 2.5 MG/0.5 ML INH NEB SOLN INH (22:15)
[2017-05-17] MEDS: LEVOTHYROXINE 50MCG TABLET (0.05MG) PO (05:53)
[2017-05-17] MEDS: ADVAIR HFA 230/21MCG INHALER INH ×2 (08:29→21:19)
[2017-05-17] MEDS: TAMSULOSIN 0.4 MG CAP PO (08:38)
[2017-05-17] MEDS: SPIRONOLACTONE 50 MG TAB PO (08:38)
[2017-05-17] MEDS: PANTOPRAZOLE 40MG TAB (PROTONIX) PO ×2 (08:39→21:07)
[2017-05-17] MEDS: ASPIRIN 81 MG ENTERIC TAB PO (08:39)
[2017-05-17] MEDS: TORSEMIDE 20 MG TAB PO (08:41)
[2017-05-17] MEDS: BISOPROLOL FUMARATE 10 MG TAB PO (08:41)
[2017-05-17] MEDS: HEPARIN SOD (PORCINE) 5000 UNITS/ML VIAL SQ ×2 (08:43→21:08)
[2017-05-17] MEDS: TORSEMIDE 100 MG TAB PO (18:14)
[2017-05-17] MEDS: FAMOTIDINE 20 MG TAB PO (21:07)
[2017-05-17] MEDS: ATORVASTATIN 20 MG TAB PO (21:08)
[2017-05-18] MEDS: LEVOTHYROXINE 50MCG TABLET (0.05MG) PO (06:13)
[2017-05-18 06:28] LABS: HEMATOCRIT 33.3 % (42.0-52.0); HEMOGLOBIN 10.2 g/dl (14.0-18.0); MEAN CORPUSCULAR HEMOGLOBIN 27.7 pg (27.0-33.0); MEAN CORPUSCULAR HGB CONC 30.6 g/dl (32.0-36.5); MEAN CORPUSCULAR VOLUME 90.5 fl (80.0-96.0); PLATELET COUNT, AUTOMATED 256 10^3/uL (150-450); RED BLOOD COUNT 3.68 10^6/uL (4.30-6.10); RED CELL DISTRIBUTION WIDTH 16.1 % (11.5-14.5)
[2017-05-18 06:53] LABS: ANION GAP 4 MEQ/L (8-16); BLOOD UREA NITROGEN 25 MG/DL (7-18); CALCIUM LEVEL 7.8 MG/DL (8.8-10.2); CARBON DIOXIDE LEVEL 36 MEQ/L (21-32); CHLORIDE LEVEL 103 MEQ/L (98-107); GLOMERULAR FILTRATION RATE > 60.0 (>42); GLUCOSE, FASTING 108 MG/DL (83-110); POTASSIUM SERUM 4.2 MEQ/L (3.5-5.1); SODIUM LEVEL 143 MEQ/L (136-145)
[2017-05-18] MEDS: ADVAIR HFA 230/21MCG INHALER INH ×2 (08:18→19:36)
[2017-05-18] MEDS: PANTOPRAZOLE 40MG TAB (PROTONIX) PO ×2 (09:41→21:31)
[2017-05-18] MEDS: SPIRONOLACTONE 50 MG TAB PO (09:41)
[2017-05-18] MEDS: TAMSULOSIN 0.4 MG CAP PO (09:41)
[2017-05-18] MEDS: BISOPROLOL FUMARATE 10 MG TAB PO (09:41)
[2017-05-18] MEDS: ASPIRIN 81 MG ENTERIC TAB PO (09:41)
[2017-05-18] MEDS: TORSEMIDE 100 MG TAB PO ×2 (09:41→17:21)
[2017-05-18] MEDS: HEPARIN SOD (PORCINE) 5000 UNITS/ML VIAL SQ ×2 (09:44→21:31)
[2017-05-18] MEDS: FAMOTIDINE 20 MG TAB PO (21:31)
[2017-05-18] MEDS: ATORVASTATIN 20 MG TAB PO (21:31)
[2017-05-19] MEDS: LEVOTHYROXINE 50MCG TABLET (0.05MG) PO (04:07)
[2017-05-19 06:15] LABS: HEMATOCRIT 33.9 % (42.0-52.0); HEMOGLOBIN 10.4 g/dl (14.0-18.0); MEAN CORPUSCULAR HEMOGLOBIN 27.5 pg (27.0-33.0); MEAN CORPUSCULAR HGB CONC 30.7 g/dl (32.0-36.5); MEAN CORPUSCULAR VOLUME 89.7 fl (80.0-96.0); PLATELET COUNT, AUTOMATED 247 10^3/uL (150-450); RED BLOOD COUNT 3.78 10^6/uL (4.30-6.10); WHITE BLOOD COUNT 9.2 10^3/uL (4.0-10.0)
[2017-05-19 06:34] LABS: ANION GAP 3 MEQ/L (8-16); BLOOD UREA NITROGEN 20 MG/DL (7-18); CALCIUM LEVEL 8.1 MG/DL (8.8-10.2); CARBON DIOXIDE LEVEL 38 MEQ/L (21-32); CHLORIDE LEVEL 100 MEQ/L (98-107); CREATININE FOR GFR 0.82 MG/DL (0.70-1.30); GLOMERULAR FILTRATION RATE > 60.0 (>42); GLUCOSE, FASTING 108 MG/DL (83-110); POTASSIUM SERUM 3.7 MEQ/L (3.5-5.1); SODIUM LEVEL 141 MEQ/L (136-145)
[2017-05-19] MEDS: ADVAIR HFA 230/21MCG INHALER INH (07:22)
[2017-05-19] MEDS: PANTOPRAZOLE 40MG TAB (PROTONIX) PO (09:36)
[2017-05-19] MEDS: BISOPROLOL FUMARATE 10 MG TAB PO (09:36)
[2017-05-19] MEDS: SPIRONOLACTONE 50 MG TAB PO (09:36)
[2017-05-19] MEDS: HEPARIN SOD (PORCINE) 5000 UNITS/ML VIAL SQ (09:36)
[2017-05-19] MEDS: ASPIRIN 81 MG ENTERIC TAB PO (09:36)
[2017-05-19] MEDS: TORSEMIDE 100 MG TAB PO (09:36)
[2017-05-19] MEDS: TAMSULOSIN 0.4 MG CAP PO (09:36)
== END 2017-05-19 12:44 | disposition home health service (06) | DRG 191 ==
LOC: M MS5PR 05-18 15:29 → M MS4PR 05-17 10:15 → M MS5PR 05-17 16:31 → M ED 16:13 → M ED INP 22:15
DX: J44.1 Chronic obstructive pulmonary disease with (acute) exacerbation (principal); I50.32 Chronic diastolic (congestive) heart failure; J96.11 Chronic respiratory failure with hypoxia; I27.81 Cor pulmonale (chronic); E03.9 Hypothyroidism, unspecified; I11.0 Hypertensive heart disease with heart failure; N40.0 Benign prostatic hyperplasia without lower urinary tract symptoms; I25.10 Atherosclerotic heart disease of native coronary artery without angina pectoris; K22.70 Barrett's esophagus without dysplasia; Z66 Do not resuscitate; D64.9 Anemia, unspecified; R91.1 Solitary pulmonary nodule; F17.210 Nicotine dependence, cigarettes, uncomplicated; Z79.82 Long term (current) use of aspirin; Z88.2 Allergy status to sulfonamides; Z79.899 Other long term (current) drug therapy; Z91.040 Latex allergy status; Z91.013 Allergy to seafood; Z99.81 Dependence on supplemental oxygen; Z88.5 Allergy status to narcotic agent; Z91.14 Patient's other noncompliance with medication regimen; Z91.19 Patient's noncompliance with other medical treatment and regimen

== ENCOUNTER 2017-05-22 08:43 | Inpatient (IN) | payer MEDICARE ==
[2017-05-22] MEDS: TIOTROPIUM INHALER/CAPSULE (SPIRIVA) INH (08:00)
[2017-05-22] MEDS: ADVAIR HFA 230/21MCG INHALER INH ×2 (09:00→22:47)
[2017-05-22] MEDS: IPRATROPIUM 0.5MG/ALBUTEROL 2.5MG INH SOL UD 3ML (DUONEB)(J7620) NEB ×3 (09:07→22:00)
[2017-05-22 09:23] LABS: BASO % 0.2 % (0.0-1.0); EOS # 0.1 10^3/uL (0.0-0.50); EOS % 1.1 % (0.0-3.0); HEMATOCRIT 36.4 % (42.0-52.0); HEMOGLOBIN 11.2 g/dl (14.0-18.0); IMMATURE GRANULOCYTE # 0.1 10^3/uL (0-0); IMMATURE GRANULOCYTE % 0.6 % (0-0); LYMPH # 0.4 10^3/uL (1.5-4.5); LYMPH % 3.2 % (24.0-44.0); MEAN CORPUSCULAR HEMOGLOBIN 27.1 pg (27.0-33.0); MEAN CORPUSCULAR HGB CONC 30.8 g/dl (32.0-36.5); MEAN CORPUSCULAR VOLUME 87.9 fl (80.0-96.0); MONO # 1.3 10^3/uL (0.0-0.8); MONO % 10.4 % (0.0-5.0); NEUTROPHILS # 10.1 10^3/uL (1.8-7.7); NEUTROPHILS % 84.5 % (36.0-66.0); PLATELET COUNT, AUTOMATED 219 10^3/uL (150-450); RED BLOOD COUNT 4.14 10^6/uL (4.30-6.10); RED CELL DISTRIBUTION WIDTH 15.9 % (11.5-14.5)
[2017-05-22] MEDS: MOXIFLOXACIN HCL 400 MG in APPROPRIATE DILUENT 1 EA IV (09:30)
[2017-05-22 09:31] LABS: ABG BASE EXCESS 8.4 (-2.0-2.0); ABG HCO3 34.4 MEQ/L (22.0-26.0); ABG O2 SATURATION 92.5 % (95.0-99.0); ABG PARTIAL PRESSURE CO2 54.4 mmHg (35.0-45.0); ABG PARTIAL PRESSURE O2 63.9 mmHg (75.0-100.0); ABG STANDARD HCO3 32.1 MEQ/L (22.0-26.0); ABG TOTAL CO2 36.1 MEQ/L (23.0-31.0); ABG pH (ARTERIAL) 7.419 UNITS (7.350-7.450)
[2017-05-22 09:37] LABS: INR 0.87; PROTHROMBIN TIME 11.9 SECONDS (12.4-14.5)
[2017-05-22 09:46] LABS: LACTIC ACID SEPSIS PROTOCOL 1.6 MMOL/L (0.4-2.0)
[2017-05-22 09:47] LABS: ALBUMIN 3.1 GM/DL (3.2-5.2); ALBUMIN/GLOBULIN RATIO 1.03 (1.00-1.93); ALKALINE PHOSPHATASE 82 U/L (45-117); ALT/SGPT 17 U/L (12-78); ANION GAP 6 MEQ/L (8-16); AST/SGOT 19 U/L (7-37); BILIRUBIN,DIRECT 0.1 MG/DL (0.0-0.2); BILIRUBIN,TOTAL 0.4 MG/DL (0.2-1.0); BLOOD UREA NITROGEN 21 MG/DL (7-18); CALCIUM LEVEL 8.5 MG/DL (8.8-10.2); CARBON DIOXIDE LEVEL 33 MEQ/L (21-32); CHLORIDE LEVEL 101 MEQ/L (98-107); CPK CREATINE PHOSPHOKINASE 34 U/L (39-308); CREATININE FOR GFR 1.19 MG/DL (0.70-1.30); GLOMERULAR FILTRATION RATE > 60.0 (>42); GLUCOSE, FASTING 88 MG/DL (83-110); POTASSIUM SERUM 3.6 MEQ/L (3.5-5.1); SODIUM LEVEL 140 MEQ/L (136-145); TOTAL PROTEIN 6.1 GM/DL (6.4-8.2); TROPONIN I < 0.02 NG/ML (< 0.10)
[2017-05-22 09:53] LABS: MB/CK RELATIVE INDEX 2.94 (< OR =4); NT-PRO BNP 562 PG/ML (<125)
[2017-05-22] MEDS ORDERED: LevoFLOXacin(LEVAQUIN)500 MG/100 ML BAG (J1956) As Ordered (09:57)
[2017-05-22] MEDS: methylPREDNISolone INJ 125 MG/2 ML VIAL (J2930) IV ×2 (10:00→18:45)
[2017-05-22] MEDS ORDERED: methylPREDNISolone INJ 125 MG/2 ML VIAL (J2930) As Ordered ×3 (10:12→10:15)
[2017-05-22] MEDS ORDERED: MOXIFLOXACIN 400 MG/250 ML IV BAG (AVELOX) (J2280) As Ordered (10:12)
[2017-05-22] MEDS ORDERED: ACETAMINOPHEN TAB 650MG DOSE (2X325MG) PO (11:00)
[2017-05-22] MEDS ORDERED: ONDANSETRON 4MG/2ML VIAL (J2405) IV (11:00)
[2017-05-22] MEDS ORDERED: SODIUM CHLORIDE NASAL 0.65% SPRAY BTL (OCEAN) (13:30)
[2017-05-22] MEDS ORDERED: NITROGLYCERIN 0.4 MG SUBL TABLET SL (13:30)
[2017-05-22] MEDS ORDERED: IPRATROPIUM 0.5MG/ALBUTEROL 2.5MG INH SOL UD 3ML (DUONEB)(J7620) NEB (13:30)
[2017-05-22] MEDS ORDERED: traMADol 50 MG TAB PO (13:30)
[2017-05-22 14:21] LABS: CPK CREATINE PHOSPHOKINASE 31 U/L (39-308); MB/CK RELATIVE INDEX 3.22 (< OR =4); TROPONIN I < 0.02 NG/ML (< 0.10)
[2017-05-22] MEDS: LEVOTHYROXINE 50MCG TABLET (0.05MG) PO (15:28)
[2017-05-22] MEDS: BISOPROLOL FUMARATE 10 MG TAB PO (15:29)
[2017-05-22] MEDS: SPIRONOLACTONE 50 MG TAB PO (15:29)
[2017-05-22] MEDS: ASPIRIN 81 MG ENTERIC TAB PO (15:29)
[2017-05-22] MEDS: TAMSULOSIN 0.4 MG CAP PO (15:29)
[2017-05-22] MEDS: PIPERACILLIN/TAZOBACTAM SOD 3.375 GM in APPROPRIATE DILUENT 1 EA IV ×2 (15:30→21:06)
[2017-05-22] MEDS: HEPARIN SOD (PORCINE) 5000 UNITS/ML VIAL SC ×2 (15:30→21:07)
[2017-05-22] MEDS: FUROSEMIDE 100 MG/10 ML VIAL (J1940) IV (17:00)
[2017-05-22] MEDS: VANCOMYCIN HCL 1,000 MG, VIAL MATE ADAPTER 1 EACH in D5W 250 ML IV (18:47)
[2017-05-22 19:52] LABS: CPK CREATINE PHOSPHOKINASE 28 U/L (39-308); MB/CK RELATIVE INDEX 3.57 (< OR =4); TROPONIN I < 0.02 NG/ML (< 0.10)
[2017-05-22] MEDS: VANCOMYCIN HCL 500 MG in D5W MINI-BAG PLUS 100 ML IV (20:34)
[2017-05-22] MEDS: ATORVASTATIN 20 MG TAB PO (21:06)
[2017-05-22] MEDS: PANTOPRAZOLE 40MG TAB (PROTONIX) PO (21:06)
[2017-05-22] MEDS: FAMOTIDINE 20 MG TAB PO (21:06)
[2017-05-23] MEDS: IPRATROPIUM 0.5MG/ALBUTEROL 2.5MG INH SOL UD 3ML (DUONEB)(J7620) NEB ×7 (03:03→23:47)
[2017-05-23] MEDS: PIPERACILLIN/TAZOBACTAM SOD 3.375 GM in APPROPRIATE DILUENT 1 EA IV ×3 (04:17→18:35)
[2017-05-23 04:52] LABS: HEMATOCRIT 30.8 % (42.0-52.0); HEMOGLOBIN 9.7 g/dl (14.0-18.0); MEAN CORPUSCULAR HEMOGLOBIN 27.9 pg (27.0-33.0); MEAN CORPUSCULAR HGB CONC 31.5 g/dl (32.0-36.5); MEAN CORPUSCULAR VOLUME 88.5 fl (80.0-96.0); PLATELET COUNT, AUTOMATED 198 10^3/uL (150-450); RED BLOOD COUNT 3.48 10^6/uL (4.30-6.10); RED CELL DISTRIBUTION WIDTH 16.1 % (11.5-14.5); WHITE BLOOD COUNT 16.8 10^3/uL (4.0-10.0)
[2017-05-23 05:25] LABS: ALBUMIN 2.7 GM/DL (3.2-5.2); ALBUMIN/GLOBULIN RATIO 0.79 (1.00-1.93); ALKALINE PHOSPHATASE 63 U/L (45-117); ALT/SGPT 15 U/L (12-78); ANION GAP 4 MEQ/L (8-16); AST/SGOT 13 U/L (7-37); BILIRUBIN,TOTAL 0.4 MG/DL (0.2-1.0); BLOOD UREA NITROGEN 32 MG/DL (7-18); CALCIUM LEVEL 8.1 MG/DL (8.8-10.2); CARBON DIOXIDE LEVEL 34 MEQ/L (21-32); CHLORIDE LEVEL 98 MEQ/L (98-107); CPK CREATINE PHOSPHOKINASE 21 U/L (39-308); CREATININE FOR GFR 1.27 MG/DL (0.70-1.30); GLUCOSE, FASTING 131 MG/DL (83-110); MAGNESIUM LEVEL 1.8 MG/DL (1.8-2.4); MB/CK RELATIVE INDEX 4.76 (< OR =4); POTASSIUM SERUM 4.4 MEQ/L (3.5-5.1); SODIUM LEVEL 136 MEQ/L (136-145); TOTAL PROTEIN 6.1 GM/DL (6.4-8.2); TROPONIN I < 0.02 NG/ML (< 0.10)
[2017-05-23] MEDS: methylPREDNISolone INJ 125 MG/2 ML VIAL (J2930) IV (06:11)
[2017-05-23] MEDS: HEPARIN SOD (PORCINE) 5000 UNITS/ML VIAL SC ×3 (06:12→21:27)
[2017-05-23] MEDS: LEVOTHYROXINE 50MCG TABLET (0.05MG) PO (06:20)
[2017-05-23] MEDS: TIOTROPIUM INHALER/CAPSULE (SPIRIVA) INH (07:48)
[2017-05-23] MEDS: ADVAIR HFA 230/21MCG INHALER INH ×2 (07:48→21:36)
[2017-05-23] MEDS: PANTOPRAZOLE 40MG TAB (PROTONIX) PO ×2 (10:03→21:27)
[2017-05-23] MEDS: TAMSULOSIN 0.4 MG CAP PO (10:03)
[2017-05-23] MEDS: predniSONE 20 MG TAB PO (10:03)
[2017-05-23] MEDS: SPIRONOLACTONE 50 MG TAB PO (10:05)
[2017-05-23] MEDS: BISOPROLOL FUMARATE 10 MG TAB PO (10:05)
[2017-05-23] MEDS: ASPIRIN 81 MG ENTERIC TAB PO (10:06)
[2017-05-23] MEDS: FUROSEMIDE 100 MG/10 ML VIAL (J1940) IV ×2 (10:08→17:00)
[2017-05-23] MEDS: VANCOMYCIN HCL 1,000 MG, VIAL MATE ADAPTER 1 EACH in D5W 250 ML IV (16:10)
[2017-05-23] MEDS: FAMOTIDINE 20 MG TAB PO (21:27)
[2017-05-23] MEDS: ATORVASTATIN 20 MG TAB PO (21:27)
[2017-05-24] MEDS: PIPERACILLIN/TAZOBACTAM SOD 3.375 GM in APPROPRIATE DILUENT 1 EA IV ×3 (01:33→13:16)
[2017-05-24] MEDS: IPRATROPIUM 0.5MG/ALBUTEROL 2.5MG INH SOL UD 3ML (DUONEB)(J7620) NEB ×4 (04:00→15:37)
[2017-05-24 04:49] LABS: HEMATOCRIT 29.9 % (42.0-52.0); HEMOGLOBIN 9.4 g/dl (14.0-18.0); MEAN CORPUSCULAR HEMOGLOBIN 27.8 pg (27.0-33.0); MEAN CORPUSCULAR HGB CONC 31.4 g/dl (32.0-36.5); MEAN CORPUSCULAR VOLUME 88.5 fl (80.0-96.0); PLATELET COUNT, AUTOMATED 190 10^3/uL (150-450); RED BLOOD COUNT 3.38 10^6/uL (4.30-6.10); RED CELL DISTRIBUTION WIDTH 16.1 % (11.5-14.5)
[2017-05-24 05:14] LABS: ALBUMIN 2.7 GM/DL (3.2-5.2); ALKALINE PHOSPHATASE 54 U/L (45-117); ALT/SGPT 12 U/L (12-78); ANION GAP 5 MEQ/L (8-16); AST/SGOT 10 U/L (7-37); BILIRUBIN,TOTAL 0.3 MG/DL (0.2-1.0); BLOOD UREA NITROGEN 40 MG/DL (7-18); CALCIUM LEVEL 7.8 MG/DL (8.8-10.2); CARBON DIOXIDE LEVEL 34 MEQ/L (21-32); CHLORIDE LEVEL 100 MEQ/L (98-107); CREATININE FOR GFR 1.42 MG/DL (0.70-1.30); GLOMERULAR FILTRATION RATE 51.9 (>42); GLUCOSE, FASTING 135 MG/DL (83-110); MAGNESIUM LEVEL 2.2 MG/DL (1.8-2.4); SODIUM LEVEL 139 MEQ/L (136-145); TOTAL PROTEIN 5.7 GM/DL (6.4-8.2)
[2017-05-24] MEDS: LEVOTHYROXINE 50MCG TABLET (0.05MG) PO (05:39)
[2017-05-24] MEDS: HEPARIN SOD (PORCINE) 5000 UNITS/ML VIAL SC ×2 (05:39→13:16)
[2017-05-24] MEDS: TAMSULOSIN 0.4 MG CAP PO (08:25)
[2017-05-24] MEDS: ASPIRIN 81 MG ENTERIC TAB PO (08:25)
[2017-05-24] MEDS: SPIRONOLACTONE 50 MG TAB PO (08:25)
[2017-05-24] MEDS: PANTOPRAZOLE 40MG TAB (PROTONIX) PO (08:25)
[2017-05-24] MEDS: FUROSEMIDE 100 MG/10 ML VIAL (J1940) IV (08:26)
[2017-05-24] MEDS: predniSONE 20 MG TAB PO (08:26)
[2017-05-24] MEDS: TIOTROPIUM INHALER/CAPSULE (SPIRIVA) INH (08:41)
[2017-05-24] MEDS: ADVAIR HFA 230/21MCG INHALER INH (08:41)
[2017-05-24] MEDS: BISOPROLOL FUMARATE 10 MG TAB PO (13:15)
== END 2017-05-24 17:10 | disposition home health service (06) | DRG 190 ==
LOC: M PCU 05-23 14:46 → M ED 08:43 → M ED INP 10:49
DX: J44.0 Chronic obstructive pulmonary disease with (acute) lower respiratory infection (principal); J18.9 Pneumonia, unspecified organism; J96.11 Chronic respiratory failure with hypoxia; I50.42 Chronic combined systolic (congestive) and diastolic (congestive) heart failure; I13.0 Hypertensive heart and chronic kidney disease with heart failure and stage 1 through stage 4 chronic kidney disease, or unspecified chronic kidney disease; J44.1 Chronic obstructive pulmonary disease with (acute) exacerbation; N40.0 Benign prostatic hyperplasia without lower urinary tract symptoms; I25.10 Atherosclerotic heart disease of native coronary artery without angina pectoris; I27.29 Other secondary pulmonary hypertension; F17.210 Nicotine dependence, cigarettes, uncomplicated; K21.9 Gastro-esophageal reflux disease without esophagitis; E03.9 Hypothyroidism, unspecified; N18.9 Chronic kidney disease, unspecified; Z79.82 Long term (current) use of aspirin; Z79.899 Other long term (current) drug therapy; Z88.5 Allergy status to narcotic agent; Z88.2 Allergy status to sulfonamides; Z91.040 Latex allergy status; Z91.013 Allergy to seafood; Z99.81 Dependence on supplemental oxygen; Y95 Nosocomial condition

== ENCOUNTER 2017-06-09 12:00 | Inpatient (IN) | payer MEDICARE ==
[2017-06-09 12:25] LABS: BASO # 0.1 10^3/uL (0.0-0.2); BASO % 0.3 % (0.0-1.0); HEMATOCRIT 33.1 % (42.0-52.0); HEMOGLOBIN 10.4 g/dl (14.0-18.0); IMMATURE GRANULOCYTE # 0.1 10^3/uL (0-0); IMMATURE GRANULOCYTE % 0.6 % (0-0); LYMPH # 0.9 10^3/uL (1.5-4.5); MEAN CORPUSCULAR HEMOGLOBIN 27.4 pg (27.0-33.0); MEAN CORPUSCULAR HGB CONC 31.4 g/dl (32.0-36.5); MEAN CORPUSCULAR VOLUME 87.1 fl (80.0-96.0); MONO # 1.9 10^3/uL (0.0-0.8); MONO % 8.4 % (0.0-5.0); NEUTROPHILS # 19.7 10^3/uL (1.8-7.7); NEUTROPHILS % 86.7 % (36.0-66.0); PLATELET COUNT, AUTOMATED 232 10^3/uL (150-450); RED CELL DISTRIBUTION WIDTH 15.7 % (11.5-14.5); WHITE BLOOD COUNT 22.7 10^3/uL (4.0-10.0)
[2017-06-09 12:45] LABS: LACTIC ACID SEPSIS PROTOCOL 1.4 MMOL/L (0.4-2.0)
[2017-06-09] MEDS: IPRATROPIUM 0.5MG/ALBUTEROL 2.5MG INH SOL UD 3ML (DUONEB)(J7620) NEB ×4 (12:46→20:00)
[2017-06-09 12:47] LABS: ABG BASE EXCESS 6.4 (-2.0-2.0); ABG HCO3 30.9 MEQ/L (22.0-26.0); ABG O2 SATURATION 92.5 % (95.0-99.0); ABG PARTIAL PRESSURE CO2 44.4 mmHg (35.0-45.0); ABG PARTIAL PRESSURE O2 60.3 mmHg (75.0-100.0); ABG STANDARD HCO3 30.2 MEQ/L (22.0-26.0); ABG TOTAL CO2 32.3 MEQ/L (23.0-31.0); ABG pH (ARTERIAL) 7.461 UNITS (7.350-7.450)
[2017-06-09 12:48] LABS: ALBUMIN 2.9 GM/DL (3.2-5.2); ALBUMIN/GLOBULIN RATIO 0.91 (1.00-1.93); ALKALINE PHOSPHATASE 77 U/L (45-117); ALT/SGPT 13 U/L (12-78); ANION GAP 7 MEQ/L (8-16); AST/SGOT 15 U/L (7-37); BILIRUBIN,DIRECT < 0.1 MG/DL (0.0-0.2); BILIRUBIN,TOTAL 0.4 MG/DL (0.2-1.0); BLOOD UREA NITROGEN 22 MG/DL (7-18); CALCIUM LEVEL 8.2 MG/DL (8.8-10.2); CARBON DIOXIDE LEVEL 33 MEQ/L (21-32); CHLORIDE LEVEL 97 MEQ/L (98-107); CPK CREATINE PHOSPHOKINASE 29 U/L (39-308); GLOMERULAR FILTRATION RATE > 60.0 (>42); GLUCOSE, FASTING 88 MG/DL (70-100); MB/CK RELATIVE INDEX 3.44 (< OR =4); NT-PRO BNP 679 PG/ML (<125); POTASSIUM SERUM 3.6 MEQ/L (3.5-5.1); SODIUM LEVEL 137 MEQ/L (136-145); TOTAL PROTEIN 6.1 GM/DL (6.4-8.2); TROPONIN I 0.05 NG/ML (< 0.10)
[2017-06-09] MEDS: FUROSEMIDE 100 MG/10 ML VIAL (J1940) IV (13:00)
[2017-06-09 13:16] LABS: INFLUENZA A AMPLIFICATION NEGATIVE (NEGATIVE); INFLUENZA B AMPLIFICATION NEGATIVE (NEGATIVE)
[2017-06-09] MEDS ORDERED: ONDANSETRON 4MG/2ML VIAL (J2405) IV (13:45)
[2017-06-09] MEDS ORDERED: ACETAMINOPHEN TAB 650MG DOSE (2X325MG) PO (13:45)
[2017-06-09] MEDS: MOXIFLOXACIN HCL 400 MG in APPROPRIATE DILUENT 1 EA IV (14:27)
[2017-06-09] MEDS ORDERED: traMADol 50 MG TAB PO (14:30)
[2017-06-09] MEDS: NS 500 ML IV (15:45)
[2017-06-09] MEDS ORDERED: PROMETHAZINE INJ 25 MG/ML VIAL (J2550) IV (16:15)
[2017-06-09] MEDS: methylPREDNISolone INJ 125 MG/2 ML VIAL (J2930) IV ×2 (17:46→23:33)
[2017-06-09] MEDS: VANCOMYCIN HCL 1,000 MG, VIAL MATE ADAPTER 1 EACH in D5W 250 ML IV (17:46)
[2017-06-09] MEDS: ASPIRIN 81 MG ENTERIC TAB PO (17:46)
[2017-06-09 18:24] LABS: CPK CREATINE PHOSPHOKINASE 30 U/L (39-308); MB/CK RELATIVE INDEX 3.33 (< OR =4); TROPONIN I 0.04 NG/ML (< 0.10)
[2017-06-09] MEDS: PANTOPRAZOLE 40MG TAB (PROTONIX) PO (20:55)
[2017-06-09] MEDS: HEPARIN SOD (PORCINE) 5000 UNITS/ML VIAL SC (20:56)
[2017-06-09] MEDS: FAMOTIDINE 20 MG TAB PO (20:56)
[2017-06-09] MEDS: ATORVASTATIN 20 MG TAB PO (20:56)
[2017-06-09] MEDS: PIPERACILLIN/TAZOBACTAM SOD 3.375 GM in APPROPRIATE DILUENT 1 EA IV (20:56)
[2017-06-09] MEDS: ADVAIR HFA 230/21MCG INHALER INH (21:07)
[2017-06-10 04:47] LABS: HEMATOCRIT 31.1 % (42.0-52.0); HEMOGLOBIN 9.7 g/dl (14.0-18.0); MEAN CORPUSCULAR HGB CONC 31.2 g/dl (32.0-36.5); MEAN CORPUSCULAR VOLUME 86.6 fl (80.0-96.0); PLATELET COUNT, AUTOMATED 210 10^3/uL (150-450); RED BLOOD COUNT 3.59 10^6/uL (4.30-6.10); RED CELL DISTRIBUTION WIDTH 15.6 % (11.5-14.5); WHITE BLOOD COUNT 13.7 10^3/uL (4.0-10.0)
[2017-06-10 05:00] LABS: ALBUMIN 2.7 GM/DL (3.2-5.2); ALBUMIN/GLOBULIN RATIO 0.82 (1.00-1.93); ALKALINE PHOSPHATASE 69 U/L (45-117); ALT/SGPT 14 U/L (12-78); ANION GAP 5 MEQ/L (8-16); AST/SGOT 11 U/L (7-37); BILIRUBIN,TOTAL 0.4 MG/DL (0.2-1.0); BLOOD UREA NITROGEN 24 MG/DL (7-18); CALCIUM LEVEL 8.2 MG/DL (8.8-10.2); CARBON DIOXIDE LEVEL 31 MEQ/L (21-32); CHLORIDE LEVEL 100 MEQ/L (98-107); CREATININE FOR GFR 1.05 MG/DL (0.70-1.30); GLOMERULAR FILTRATION RATE > 60.0 (>42); GLUCOSE, FASTING 148 MG/DL (70-100); POTASSIUM SERUM 4.2 MEQ/L (3.5-5.1); SODIUM LEVEL 136 MEQ/L (136-145)
[2017-06-10] MEDS: LEVOTHYROXINE 75MCG TABLET (0.075MG) PO (05:11)
[2017-06-10] MEDS: VANCOMYCIN HCL 1,000 MG, VIAL MATE ADAPTER 1 EACH in D5W 250 ML IV ×2 (05:11→17:41)
[2017-06-10] MEDS: PIPERACILLIN/TAZOBACTAM SOD 3.375 GM in APPROPRIATE DILUENT 1 EA IV ×3 (05:11→20:08)
[2017-06-10] MEDS: TIOTROPIUM INHALER/CAPSULE (SPIRIVA) INH (07:25)
[2017-06-10] MEDS: ADVAIR HFA 230/21MCG INHALER INH ×2 (07:25→20:57)
[2017-06-10] MEDS: IPRATROPIUM 0.5MG/ALBUTEROL 2.5MG INH SOL UD 3ML (DUONEB)(J7620) NEB ×4 (07:28→20:00)
[2017-06-10] MEDS: methylPREDNISolone INJ 125 MG/2 ML VIAL (J2930) IV ×3 (08:13→23:20)
[2017-06-10] MEDS: HEPARIN SOD (PORCINE) 5000 UNITS/ML VIAL SC ×2 (08:13→20:08)
[2017-06-10] MEDS: AZITHROMYCIN 250 MG TAB PO (08:14)
[2017-06-10] MEDS: PANTOPRAZOLE 40MG TAB (PROTONIX) PO ×2 (08:14→20:08)
[2017-06-10] MEDS: ASPIRIN 81 MG ENTERIC TAB PO (08:14)
[2017-06-10] MEDS: TAMSULOSIN 0.4 MG CAP PO (08:14)
[2017-06-10] MEDS: ATORVASTATIN 20 MG TAB PO (20:08)
[2017-06-10] MEDS: FAMOTIDINE 20 MG TAB PO (20:09)
[2017-06-11] MEDS: PIPERACILLIN/TAZOBACTAM SOD 3.375 GM in APPROPRIATE DILUENT 1 EA IV ×2 (03:45→12:11)
[2017-06-11 05:14] LABS: HEMATOCRIT 31.1 % (42.0-52.0); HEMOGLOBIN 9.7 g/dl (14.0-18.0); MEAN CORPUSCULAR HEMOGLOBIN 27.6 pg (27.0-33.0); MEAN CORPUSCULAR HGB CONC 31.2 g/dl (32.0-36.5); MEAN CORPUSCULAR VOLUME 88.4 fl (80.0-96.0); PLATELET COUNT, AUTOMATED 235 10^3/uL (150-450); RED BLOOD COUNT 3.52 10^6/uL (4.30-6.10); RED CELL DISTRIBUTION WIDTH 15.5 % (11.5-14.5); WHITE BLOOD COUNT 13.2 10^3/uL (4.0-10.0)
[2017-06-11 05:33] LABS: ALBUMIN 2.6 GM/DL (3.2-5.2); ALBUMIN/GLOBULIN RATIO 0.72 (1.00-1.93); ALKALINE PHOSPHATASE 68 U/L (45-117); ALT/SGPT 11 U/L (12-78); ANION GAP 4 MEQ/L (8-16); AST/SGOT 9 U/L (7-37); BILIRUBIN,TOTAL 0.2 MG/DL (0.2-1.0); BLOOD UREA NITROGEN 28 MG/DL (7-18); CALCIUM LEVEL 7.7 MG/DL (8.8-10.2); CARBON DIOXIDE LEVEL 32 MEQ/L (21-32); CHLORIDE LEVEL 100 MEQ/L (98-107); CREATININE FOR GFR 0.97 MG/DL (0.70-1.30); GLOMERULAR FILTRATION RATE > 60.0 (>42); GLUCOSE, FASTING 145 MG/DL (70-100); MAGNESIUM LEVEL 2.3 MG/DL (1.8-2.4); POTASSIUM SERUM 4.1 MEQ/L (3.5-5.1); SODIUM LEVEL 136 MEQ/L (136-145); TOTAL PROTEIN 6.2 GM/DL (6.4-8.2)
[2017-06-11] MEDS: VANCOMYCIN HCL 1,000 MG, VIAL MATE ADAPTER 1 EACH in D5W 250 ML IV (06:07)
[2017-06-11] MEDS: LEVOTHYROXINE 75MCG TABLET (0.075MG) PO (06:07)
[2017-06-11] MEDS: IPRATROPIUM 0.5MG/ALBUTEROL 2.5MG INH SOL UD 3ML (DUONEB)(J7620) NEB ×4 (08:00→21:14)
[2017-06-11] MEDS: ADVAIR HFA 230/21MCG INHALER INH ×2 (08:25→21:14)
[2017-06-11] MEDS: TIOTROPIUM INHALER/CAPSULE (SPIRIVA) INH (08:25)
[2017-06-11] MEDS: TAMSULOSIN 0.4 MG CAP PO (09:00)
[2017-06-11] MEDS: ASPIRIN 81 MG ENTERIC TAB PO (09:04)
[2017-06-11] MEDS: PANTOPRAZOLE 40MG TAB (PROTONIX) PO ×2 (09:04→21:13)
[2017-06-11] MEDS: AZITHROMYCIN 250 MG TAB PO (09:04)
[2017-06-11] MEDS: HEPARIN SOD (PORCINE) 5000 UNITS/ML VIAL SC ×2 (09:04→21:13)
[2017-06-11] MEDS: methylPREDNISolone INJ 125 MG/2 ML VIAL (J2930) IV ×2 (09:04→15:59)
[2017-06-11] MEDS: LevoFLOXacin 750 MG TABLET PO (13:48)
[2017-06-11] MEDS: FUROSEMIDE 100 MG/10 ML VIAL (J1940) IV ×2 (13:48→18:07)
[2017-06-11] MEDS: ATORVASTATIN 20 MG TAB PO (21:13)
[2017-06-11] MEDS: FAMOTIDINE 20 MG TAB PO (21:13)
[2017-06-12] MEDS: methylPREDNISolone INJ 125 MG/2 ML VIAL (J2930) IV ×2 (00:57→09:00)
[2017-06-12] MEDS: LevoFLOXacin 750 MG TABLET PO (06:00)
[2017-06-12] MEDS: LEVOTHYROXINE 75MCG TABLET (0.075MG) PO (06:00)
[2017-06-12 06:19] LABS: HEMATOCRIT 32.2 % (42.0-52.0); HEMOGLOBIN 9.8 g/dl (14.0-18.0); MEAN CORPUSCULAR HEMOGLOBIN 27.1 pg (27.0-33.0); MEAN CORPUSCULAR HGB CONC 30.4 g/dl (32.0-36.5); MEAN CORPUSCULAR VOLUME 89.2 fl (80.0-96.0); PLATELET COUNT, AUTOMATED 235 10^3/uL (150-450); RED BLOOD COUNT 3.61 10^6/uL (4.30-6.10); RED CELL DISTRIBUTION WIDTH 15.6 % (11.5-14.5); WHITE BLOOD COUNT 13.3 10^3/uL (4.0-10.0)
[2017-06-12 06:42] LABS: ALBUMIN 2.8 GM/DL (3.2-5.2); ALBUMIN/GLOBULIN RATIO 0.88 (1.00-1.93); ALKALINE PHOSPHATASE 61 U/L (45-117); ALT/SGPT 12 U/L (12-78); ANION GAP 6 MEQ/L (8-16); AST/SGOT 10 U/L (7-37); BILIRUBIN,TOTAL 0.2 MG/DL (0.2-1.0); BLOOD UREA NITROGEN 27 MG/DL (7-18); CALCIUM LEVEL 7.4 MG/DL (8.8-10.2); CARBON DIOXIDE LEVEL 34 MEQ/L (21-32); CHLORIDE LEVEL 100 MEQ/L (98-107); CREATININE FOR GFR 1.04 MG/DL (0.70-1.30); GLOMERULAR FILTRATION RATE > 60.0 (>42); GLUCOSE, FASTING 223 MG/DL (70-100); MAGNESIUM LEVEL 2.2 MG/DL (1.8-2.4); POTASSIUM SERUM 4.7 MEQ/L (3.5-5.1); SODIUM LEVEL 140 MEQ/L (136-145)
[2017-06-12] MEDS: IPRATROPIUM 0.5MG/ALBUTEROL 2.5MG INH SOL UD 3ML (DUONEB)(J7620) NEB ×4 (08:00→20:00)
[2017-06-12] MEDS: TAMSULOSIN 0.4 MG CAP PO (09:00)
[2017-06-12] MEDS: HEPARIN SOD (PORCINE) 5000 UNITS/ML VIAL SC ×2 (09:00→20:19)
[2017-06-12] MEDS: FUROSEMIDE 100 MG/10 ML VIAL (J1940) IV ×2 (09:00→16:45)
[2017-06-12] MEDS: PANTOPRAZOLE 40MG TAB (PROTONIX) PO ×2 (09:01→20:18)
[2017-06-12] MEDS: ASPIRIN 81 MG ENTERIC TAB PO (09:01)
[2017-06-12] MEDS: TIOTROPIUM INHALER/CAPSULE (SPIRIVA) INH (10:47)
[2017-06-12] MEDS: ADVAIR HFA 230/21MCG INHALER INH ×2 (10:47→20:57)
[2017-06-12] MEDS: CALCIUM CARBONATE 500 MG CHEW U/D PO (10:56)
[2017-06-12] MEDS: metOLazone 5 MG TAB PO (12:58)
[2017-06-12] MEDS: predniSONE 20 MG TAB PO (12:58)
[2017-06-12] MEDS: ATORVASTATIN 20 MG TAB PO (20:18)
[2017-06-12] MEDS: FAMOTIDINE 20 MG TAB PO (20:18)
[2017-06-13] MEDS: LevoFLOXacin 750 MG TABLET PO (06:28)
[2017-06-13] MEDS: LEVOTHYROXINE 75MCG TABLET (0.075MG) PO (06:28)
[2017-06-13 06:45] LABS: HEMATOCRIT 32.9 % (42.0-52.0); HEMOGLOBIN 10.3 g/dl (14.0-18.0); MEAN CORPUSCULAR HEMOGLOBIN 27.2 pg (27.0-33.0); MEAN CORPUSCULAR HGB CONC 31.3 g/dl (32.0-36.5); PLATELET COUNT, AUTOMATED 253 10^3/uL (150-450); RED BLOOD COUNT 3.78 10^6/uL (4.30-6.10); RED CELL DISTRIBUTION WIDTH 15.7 % (11.5-14.5)
[2017-06-13 07:11] LABS: ALBUMIN 2.9 GM/DL (3.2-5.2); ALBUMIN/GLOBULIN RATIO 0.88 (1.00-1.93); ALKALINE PHOSPHATASE 63 U/L (45-117); ALT/SGPT 15 U/L (12-78); ANION GAP 7 MEQ/L (8-16); AST/SGOT 11 U/L (7-37); BILIRUBIN,TOTAL 0.2 MG/DL (0.2-1.0); BLOOD UREA NITROGEN 34 MG/DL (7-18); CALCIUM LEVEL 7.1 MG/DL (8.8-10.2); CARBON DIOXIDE LEVEL 34 MEQ/L (21-32); CHLORIDE LEVEL 98 MEQ/L (98-107); GLOMERULAR FILTRATION RATE > 60.0 (>42); GLUCOSE, FASTING 136 MG/DL (70-100); MAGNESIUM LEVEL 2.3 MG/DL (1.8-2.4); POTASSIUM SERUM 3.6 MEQ/L (3.5-5.1); SODIUM LEVEL 139 MEQ/L (136-145); TOTAL PROTEIN 6.2 GM/DL (6.4-8.2)
[2017-06-13] MEDS: ADVAIR HFA 230/21MCG INHALER INH ×2 (07:52→21:49)
[2017-06-13] MEDS: TIOTROPIUM INHALER/CAPSULE (SPIRIVA) INH (07:52)
[2017-06-13] MEDS: IPRATROPIUM 0.5MG/ALBUTEROL 2.5MG INH SOL UD 3ML (DUONEB)(J7620) NEB ×5 (08:00→20:00)
[2017-06-13] MEDS: HEPARIN SOD (PORCINE) 5000 UNITS/ML VIAL SC ×2 (09:23→20:16)
[2017-06-13] MEDS: FUROSEMIDE 100 MG/10 ML VIAL (J1940) IV ×2 (09:23→17:33)
[2017-06-13] MEDS: predniSONE 20 MG TAB PO (09:24)
[2017-06-13] MEDS: TAMSULOSIN 0.4 MG CAP PO (09:24)
[2017-06-13] MEDS: ASPIRIN 81 MG ENTERIC TAB PO (09:24)
[2017-06-13] MEDS: PANTOPRAZOLE 40MG TAB (PROTONIX) PO ×2 (09:24→20:15)
[2017-06-13] MEDS: guaiFENesin ER 600 MG TAB PO ×2 (14:17→20:15)
[2017-06-13] MEDS: EUCERIN 120GM CREAM TOP ×2 (14:17→20:16)
[2017-06-13] MEDS: ATORVASTATIN 20 MG TAB PO (20:15)
[2017-06-13] MEDS: FAMOTIDINE 20 MG TAB PO (20:15)
[2017-06-14] MEDS: LEVOTHYROXINE 75MCG TABLET (0.075MG) PO (05:37)
[2017-06-14] MEDS: LevoFLOXacin 750 MG TABLET PO (05:37)
[2017-06-14 06:28] LABS: HEMATOCRIT 34.5 % (42.0-52.0); HEMOGLOBIN 10.7 g/dl (14.0-18.0); MEAN CORPUSCULAR HEMOGLOBIN 26.9 pg (27.0-33.0); MEAN CORPUSCULAR VOLUME 86.7 fl (80.0-96.0); PLATELET COUNT, AUTOMATED 231 10^3/uL (150-450); RED BLOOD COUNT 3.98 10^6/uL (4.30-6.10); RED CELL DISTRIBUTION WIDTH 15.7 % (11.5-14.5); WHITE BLOOD COUNT 13.6 10^3/uL (4.0-10.0)
[2017-06-14 06:49] LABS: ALBUMIN/GLOBULIN RATIO 0.86 (1.00-1.93); ALKALINE PHOSPHATASE 68 U/L (45-117); ALT/SGPT 22 U/L (12-78); ANION GAP 5 MEQ/L (8-16); AST/SGOT 17 U/L (7-37); BILIRUBIN,TOTAL 0.3 MG/DL (0.2-1.0); BLOOD UREA NITROGEN 33 MG/DL (7-18); CALCIUM LEVEL 7.2 MG/DL (8.8-10.2); CARBON DIOXIDE LEVEL 36 MEQ/L (21-32); CHLORIDE LEVEL 97 MEQ/L (98-107); CREATININE FOR GFR 1.15 MG/DL (0.70-1.30); GLOMERULAR FILTRATION RATE > 60.0 (>42); GLUCOSE, FASTING 112 MG/DL (70-100); MAGNESIUM LEVEL 2.4 MG/DL (1.8-2.4); POTASSIUM SERUM 3.8 MEQ/L (3.5-5.1); SODIUM LEVEL 138 MEQ/L (136-145); TOTAL PROTEIN 6.5 GM/DL (6.4-8.2)
[2017-06-14] MEDS: IPRATROPIUM 0.5MG/ALBUTEROL 2.5MG INH SOL UD 3ML (DUONEB)(J7620) NEB ×4 (08:00→20:00)
[2017-06-14] MEDS: TIOTROPIUM INHALER/CAPSULE (SPIRIVA) INH (08:06)
[2017-06-14] MEDS: ADVAIR HFA 230/21MCG INHALER INH ×2 (08:07→20:16)
[2017-06-14] MEDS: TAMSULOSIN 0.4 MG CAP PO (09:27)
[2017-06-14] MEDS: ASPIRIN 81 MG ENTERIC TAB PO (09:27)
[2017-06-14] MEDS: predniSONE 20 MG TAB PO (09:27)
[2017-06-14] MEDS: guaiFENesin ER 600 MG TAB PO ×2 (09:27→20:12)
[2017-06-14] MEDS: PANTOPRAZOLE 40MG TAB (PROTONIX) PO ×2 (09:27→20:12)
[2017-06-14] MEDS: EUCERIN 120GM CREAM TOP ×2 (09:27→20:13)
[2017-06-14] MEDS: HEPARIN SOD (PORCINE) 5000 UNITS/ML VIAL SC ×2 (09:28→20:12)
[2017-06-14] MEDS: FUROSEMIDE 100 MG/10 ML VIAL (J1940) IV ×2 (09:28→17:35)
[2017-06-14] MEDS: FAMOTIDINE 20 MG TAB PO (20:12)
[2017-06-14] MEDS: CALCIUM CARBONATE 500 MG CHEW U/D PO (20:12)
[2017-06-14] MEDS: ALBUTEROL SULFATE 2.5 MG/0.5 ML INH NEB SOLN INH (23:04)
[2017-06-15 05:25] LABS: HEMOGLOBIN 10.8 g/dl (14.0-18.0); MEAN CORPUSCULAR HEMOGLOBIN 26.7 pg (27.0-33.0); MEAN CORPUSCULAR HGB CONC 30.9 g/dl (32.0-36.5); MEAN CORPUSCULAR VOLUME 86.6 fl (80.0-96.0); PLATELET COUNT, AUTOMATED 228 10^3/uL (150-450); RED BLOOD COUNT 4.04 10^6/uL (4.30-6.10); RED CELL DISTRIBUTION WIDTH 15.7 % (11.5-14.5); WHITE BLOOD COUNT 15.3 10^3/uL (4.0-10.0)
[2017-06-15] MEDS: LEVOTHYROXINE 75MCG TABLET (0.075MG) PO (05:29)
[2017-06-15] MEDS: LevoFLOXacin 750 MG TABLET PO (05:29)
[2017-06-15 05:46] LABS: ALBUMIN 2.9 GM/DL (3.2-5.2); ALBUMIN/GLOBULIN RATIO 0.85 (1.00-1.93); ALKALINE PHOSPHATASE 67 U/L (45-117); ALT/SGPT 26 U/L (12-78); ANION GAP 6 MEQ/L (8-16); AST/SGOT 18 U/L (7-37); BILIRUBIN,TOTAL 0.2 MG/DL (0.2-1.0); BLOOD UREA NITROGEN 30 MG/DL (7-18); CALCIUM LEVEL 7.2 MG/DL (8.8-10.2); CARBON DIOXIDE LEVEL 36 MEQ/L (21-32); CHLORIDE LEVEL 97 MEQ/L (98-107); GLOMERULAR FILTRATION RATE > 60.0 (>42); GLUCOSE, FASTING 124 MG/DL (70-100); MAGNESIUM LEVEL 2.4 MG/DL (1.8-2.4); POTASSIUM SERUM 3.7 MEQ/L (3.5-5.1); SODIUM LEVEL 139 MEQ/L (136-145); TOTAL PROTEIN 6.3 GM/DL (6.4-8.2)
[2017-06-15] MEDS: ADVAIR HFA 230/21MCG INHALER INH (07:47)
[2017-06-15] MEDS: IPRATROPIUM 0.5MG/ALBUTEROL 2.5MG INH SOL UD 3ML (DUONEB)(J7620) NEB ×3 (07:47→15:28)
[2017-06-15] MEDS: TIOTROPIUM INHALER/CAPSULE (SPIRIVA) INH (07:47)
[2017-06-15] MEDS: CALCIUM CARBONATE 500 MG CHEW U/D PO ×2 (08:57→15:43)
[2017-06-15] MEDS: SPIRONOLACTONE 12.5MG PER 1/2 TABLET PO (08:57)
[2017-06-15] MEDS: ASPIRIN 81 MG ENTERIC TAB PO (08:58)
[2017-06-15] MEDS: PANTOPRAZOLE 40MG TAB (PROTONIX) PO (08:58)
[2017-06-15] MEDS: TORSEMIDE 20 MG TAB PO (08:58)
[2017-06-15] MEDS: TAMSULOSIN 0.4 MG CAP PO (08:58)
[2017-06-15] MEDS: predniSONE 20 MG TAB PO (08:58)
[2017-06-15] MEDS: guaiFENesin ER 600 MG TAB PO (08:58)
[2017-06-15] MEDS: EUCERIN 120GM CREAM TOP (08:59)
[2017-06-15] MEDS: HEPARIN SOD (PORCINE) 5000 UNITS/ML VIAL SC (08:59)
[2017-06-16] MEDS ORDERED: predniSONE 10 MG TAB PO (09:00)
== END 2017-06-15 16:43 | disposition home health service (06) | DRG 177 ==
LOC: M MSPAV 06-11 16:30 → M ED 12:00 → M ED INP 13:40 → M ICU 15:53
DX: J15.1 Pneumonia due to Pseudomonas (principal); I50.33 Acute on chronic diastolic (congestive) heart failure; J96.11 Chronic respiratory failure with hypoxia; I11.0 Hypertensive heart disease with heart failure; F17.210 Nicotine dependence, cigarettes, uncomplicated; N40.0 Benign prostatic hyperplasia without lower urinary tract symptoms; I25.10 Atherosclerotic heart disease of native coronary artery without angina pectoris; E78.5 Hyperlipidemia, unspecified; E03.9 Hypothyroidism, unspecified; I27.29 Other secondary pulmonary hypertension; Z95.810 Presence of automatic (implantable) cardiac defibrillator; E83.51 Hypocalcemia; Z79.899 Other long term (current) drug therapy; Z79.82 Long term (current) use of aspirin; Z88.2 Allergy status to sulfonamides; Z91.040 Latex allergy status; Z91.013 Allergy to seafood; Z88.5 Allergy status to narcotic agent

== ENCOUNTER 2017-06-28 11:46 | Emergency (ER) | payer MEDICARE ==
[2017-06-28 13:42] LABS: BASO % 0.3 % (0.0-1.0); EOS # 0.1 10^3/uL (0.0-0.50); EOS % 1.2 % (0.0-3.0); HEMATOCRIT 32.5 % (42.0-52.0); HEMOGLOBIN 10.1 g/dl (14.0-18.0); IMMATURE GRANULOCYTE % 2.9 % (0-3.0); LYMPH # 0.9 10^3/uL (1.5-4.5); LYMPH % 7.9 % (24.0-44.0); MEAN CORPUSCULAR HEMOGLOBIN 26.9 pg (27.0-33.0); MEAN CORPUSCULAR HGB CONC 31.1 g/dl (32.0-36.5); MEAN CORPUSCULAR VOLUME 86.4 fl (80.0-96.0); MONO # 1.6 10^3/uL (0.0-0.8); MONO % 14.1 % (0.0-5.0); NEUTROPHILS # 8.3 10^3/uL (1.8-7.7); NEUTROPHILS % 73.6 % (36.0-66.0); PLATELET COUNT, AUTOMATED 174 10^3/uL (150-450); RED BLOOD COUNT 3.76 10^6/uL (4.30-6.10); RED CELL DISTRIBUTION WIDTH 15.9 % (11.5-14.5); WHITE BLOOD COUNT 11.2 10^3/uL (4.0-10.0)
[2017-06-28 13:56] LABS: NT-PRO BNP 445 PG/ML (<125)
[2017-06-28 13:58] LABS: ALBUMIN 2.8 GM/DL (3.2-5.2); ALBUMIN/GLOBULIN RATIO 0.97 (1.00-1.93); ALKALINE PHOSPHATASE 80 U/L (45-117); ALT/SGPT 15 U/L (12-78); ANION GAP 7 MEQ/L (8-16); AST/SGOT 21 U/L (7-37); BILIRUBIN,DIRECT 0.2 MG/DL (0.0-0.2); BILIRUBIN,TOTAL 0.5 MG/DL (0.2-1.0); BLOOD UREA NITROGEN 20 MG/DL (7-18); CALCIUM LEVEL 8.3 MG/DL (8.8-10.2); CARBON DIOXIDE LEVEL 35 MEQ/L (21-32); CHLORIDE LEVEL 96 MEQ/L (98-107); CPK CREATINE PHOSPHOKINASE 29 U/L (39-308); GLOMERULAR FILTRATION RATE > 60.0 (>42); GLUCOSE, FASTING 69 MG/DL (70-100); LIPASE 86 U/L (73-393); POTASSIUM SERUM 3.5 MEQ/L (3.5-5.1); SODIUM LEVEL 138 MEQ/L (136-145); TOTAL PROTEIN 5.7 GM/DL (6.4-8.2); TROPONIN I < 0.02 NG/ML (< 0.10)
[2017-06-28 13:59] LABS: MB/CK RELATIVE INDEX 3.44 (< OR =4)
[2017-06-28 14:09] LABS: PARTIAL THROMBOPLASTIN TIME 32.5 SECONDS (26.8-37.9); PROTHROMBIN TIME 12.2 SECONDS (12.4-14.5)
[2017-06-28] MEDS ORDERED: ISOVUE-370 76% 100ML VIAL (Q9967) As Ordered (14:24)
[2017-06-28 18:46] LABS: CPK CREATINE PHOSPHOKINASE 28 U/L (39-308); TROPONIN I < 0.02 NG/ML (< 0.10)
[2017-06-28 18:47] LABS: MB/CK RELATIVE INDEX 3.57 (< OR =4)
== END 2017-06-28 19:43 | disposition home or self-care (01) ==
LOC: M ED 11:46
DX: R91.1 Solitary pulmonary nodule (principal); R07.9 Chest pain, unspecified; Z95.0 Presence of cardiac pacemaker; R94.31 Abnormal electrocardiogram [ECG] [EKG]; I25.10 Atherosclerotic heart disease of native coronary artery without angina pectoris; I50.9 Heart failure, unspecified; I10 Essential (primary) hypertension; N40.0 Benign prostatic hyperplasia without lower urinary tract symptoms; I27.20 Pulmonary hypertension, unspecified; R60.9 Edema, unspecified; F17.200 Nicotine dependence, unspecified, uncomplicated; D35.00 Benign neoplasm of unspecified adrenal gland; I51.7 Cardiomegaly; Z79.82 Long term (current) use of aspirin; Z79.899 Other long term (current) drug therapy; Z88.5 Allergy status to narcotic agent; Z91.040 Latex allergy status; Z91.013 Allergy to seafood; Z88.2 Allergy status to sulfonamides
CPT/HCPCS: Q9967

== ENCOUNTER → 2017-08-28 | Outpatient (CLI) | payer MEDICARE, MEDICAID | LOC: M RAD 14:31 | DX: I87.393 Chronic venous hypertension (idiopathic) with other complications of bilateral lower extremity (principal); I10 Essential (primary) hypertension; M79.605 Pain in left leg; M79.604 Pain in right leg | CPT/HCPCS: 93970 ==

== ENCOUNTER 2017-09-06 11:54 | Inpatient (IN) | payer MEDICARE ==
[2017-09-06 11:24] LABS: ABG BASE EXCESS 3.9 (-2.0-2.0); ABG HCO3 28.5 MEQ/L (22.0-26.0); ABG O2 SATURATION 92.4 % (95.0-99.0); ABG PARTIAL PRESSURE CO2 42.8 mmHg (35.0-45.0); ABG PARTIAL PRESSURE O2 63.5 mmHg (75.0-100.0); ABG STANDARD HCO3 27.9 MEQ/L (22.0-26.0); ABG TOTAL CO2 29.8 MEQ/L (23.0-31.0); ABG pH (ARTERIAL) 7.441 UNITS (7.350-7.450)
[2017-09-06] MEDS: IPRATROPIUM 0.5MG/ALBUTEROL 2.5MG INH SOL UD 3ML (DUONEB)(J7620) NEB ×3 (11:27→20:00)
[2017-09-06] MEDS: ALBUTEROL SULFATE 2.5 MG/0.5 ML INH NEB SOLN INH (11:27)
[2017-09-06 12:06] LABS: BASO # 0.1 10^3/uL (0.0-0.2); BASO % 0.4 % (0.0-1.0); EOS % 0.2 % (0.0-3.0); HEMATOCRIT 32.2 % (42.0-52.0); HEMOGLOBIN 10.2 g/dl (13.5-17.5); IMMATURE GRANULOCYTE % 0.6 % (0-3.0); LYMPH # 0.7 10^3/uL (1.5-4.5); LYMPH % 4.2 % (24.0-44.0); MEAN CORPUSCULAR HEMOGLOBIN 26.2 pg (27.0-33.0); MEAN CORPUSCULAR HGB CONC 31.7 g/dl (32.0-36.5); MEAN CORPUSCULAR VOLUME 82.8 fl (80.0-96.0); MONO # 1.2 10^3/uL (0.0-0.8); MONO % 6.8 % (0.0-5.0); NEUTROPHILS % 87.8 % (36.0-66.0); PLATELET COUNT, AUTOMATED 209 10^3/uL (150-450); RED BLOOD COUNT 3.89 10^6/uL (4.30-6.10); RED CELL DISTRIBUTION WIDTH 16.3 % (11.5-14.5); WHITE BLOOD COUNT 17.1 10^3/uL (4.0-10.0)
[2017-09-06 12:16] LABS: PROTHROMBIN TIME 13.3 SECONDS (12.4-14.5)
[2017-09-06 12:18] LABS: D-DIMER QUANT 970.1 ng/ml (<500)
[2017-09-06 12:26] LABS: ALBUMIN 3.1 GM/DL (3.2-5.2); ALBUMIN/GLOBULIN RATIO 0.78 (1.00-1.93); ALKALINE PHOSPHATASE 115 U/L (45-117); ALT/SGPT 17 U/L (12-78); ANION GAP 5 MEQ/L (8-16); AST/SGOT 21 U/L (7-37); BILIRUBIN,DIRECT 0.1 MG/DL (0.0-0.2); BILIRUBIN,TOTAL 0.6 MG/DL (0.2-1.0); BLOOD UREA NITROGEN 22 MG/DL (7-18); CALCIUM LEVEL 8.6 MG/DL (8.8-10.2); CARBON DIOXIDE LEVEL 31 MEQ/L (21-32); CHLORIDE LEVEL 98 MEQ/L (98-107); CPK CREATINE PHOSPHOKINASE 53 U/L (39-308); CREATININE FOR GFR 1.09 MG/DL (0.70-1.30); GLOMERULAR FILTRATION RATE > 60.0 (>42); GLUCOSE, FASTING 86 MG/DL (70-100); POTASSIUM SERUM 4.1 MEQ/L (3.5-5.1); SODIUM LEVEL 134 MEQ/L (136-145); THYROXINE (T4) 9.4 UG/DL (4.5-12.0); TOTAL PROTEIN 7.1 GM/DL (6.4-8.2); TROPONIN I < 0.02 NG/ML (< 0.10)
[2017-09-06 12:27] LABS: LACTIC ACID SEPSIS PROTOCOL 1.1 MMOL/L (0.4-2.0)
[2017-09-06] MEDS: methylPREDNISolone INJ 125 MG/2 ML VIAL (J2930) IV ×2 (12:28→20:44)
[2017-09-06] MEDS: ONDANSETRON 4MG/2ML VIAL (J2405) IV (12:28)
[2017-09-06] MEDS: MORPHINE 2 MG/ML 1ML SYRINGE (J2270) IV (12:29)
[2017-09-06 12:32] LABS: CK-MB VALUE MASS 1.5 NG/ML (<3.6); MB/CK RELATIVE INDEX 2.83 (< OR =4); NT-PRO BNP 360 PG/ML (<125)
[2017-09-06 12:34] LABS: POS COUNT POS FLAG
[2017-09-06] MEDS ORDERED: ISOVUE-370 76% 100ML VIAL (Q9967) As Ordered (12:35)
[2017-09-06 12:37] LABS: INFLUENZA A AMPLIFICATION NEGATIVE (NEGATIVE); INFLUENZA B AMPLIFICATION NEGATIVE (NEGATIVE)
[2017-09-06] MEDS ORDERED: IPRATROPIUM 0.5MG/ALBUTEROL 2.5MG INH SOL UD 3ML (DUONEB)(J7620) NEB (13:30)
[2017-09-06] MEDS: AZITHROMYCIN INJ 500 MG, VIAL MATE ADAPTER 1 EACH in D5W 250 ML IV (13:35)
[2017-09-06] MEDS: cefTRIAXone SOD 1 GM in D5W MINI-BAG PLUS 50 ML IV (13:35)
[2017-09-06] MEDS ORDERED: ONDANSETRON 4MG/2ML VIAL (J2405) IV (13:45)
[2017-09-06] MEDS ORDERED: SODIUM CHLORIDE NASAL 0.65% SPRAY BTL (OCEAN) (13:45)
[2017-09-06] MEDS ORDERED: FLUTICASONE PROP 0.05% NASAL SPRAY 16 GM (FLONASE) (13:45)
[2017-09-06 13:53] LABS: C REACTIVE PROTEIN QUANTITATIV 2.94 MG/DL (0.00-0.30)
[2017-09-06] MEDS: VANCOMYCIN HCL 1,000 MG, VIAL MATE ADAPTER 1 EACH in D5W 250 ML IV (16:04)
[2017-09-06] MEDS: FINASTERIDE 5 MG TAB PO (16:05)
[2017-09-06] MEDS: ASPIRIN 81 MG ENTERIC TAB PO (16:05)
[2017-09-06] MEDS: HEPARIN SOD (PORCINE) 5000 UNITS/ML VIAL SC ×2 (16:05→22:25)
[2017-09-06] MEDS: TAMSULOSIN 0.4 MG CAP PO (16:06)
[2017-09-06] MEDS: SPIRONOLACTONE 50 MG TAB PO (16:06)
[2017-09-06] MEDS: LEVOTHYROXINE 75MCG TABLET (0.075MG) PO (16:30)
[2017-09-06 16:36] LABS: CK-MB VALUE MASS 1.2 NG/ML (<3.6); CPK CREATINE PHOSPHOKINASE 48 U/L (39-308); TROPONIN I < 0.02 NG/ML (< 0.10)
[2017-09-06] MEDS: VANCOMYCIN HCL 500 MG in D5W MINI-BAG PLUS 100 ML IV (18:03)
[2017-09-06] MEDS: traMADol 50 MG TAB PO (18:04)
[2017-09-06] MEDS: ACETAMINOPHEN TAB 650MG DOSE (2X325MG) PO (20:42)
[2017-09-06] MEDS: ATORVASTATIN 20 MG TAB PO (20:43)
[2017-09-06] MEDS: FAMOTIDINE 20 MG TAB PO (20:43)
[2017-09-06] MEDS: SENOKOT S TAB PO (20:43)
[2017-09-06] MEDS: PANTOPRAZOLE 40MG TAB (PROTONIX) PO (20:44)
[2017-09-06] MEDS: TORSEMIDE 20 MG TAB PO (20:44)
[2017-09-06] MEDS: CEFEPIME HCL 1 GM in D5W MINI-BAG PLUS 50 ML IV (20:44)
[2017-09-06] MEDS: ADVAIR HFA 230/21MCG INHALER INH (21:10)
[2017-09-06 22:19] LABS: TROPONIN I < 0.02 NG/ML (< 0.10)
[2017-09-06 22:20] LABS: CK-MB VALUE MASS 1.1 NG/ML (<3.6); CPK CREATINE PHOSPHOKINASE 45 U/L (39-308); MB/CK RELATIVE INDEX 2.44 (< OR =4)
[2017-09-06] MEDS: SLF 3 ML SYR IV (22:26)
[2017-09-07] MEDS: IPRATROPIUM 0.5MG/ALBUTEROL 2.5MG INH SOL UD 3ML (DUONEB)(J7620) NEB ×4 (01:21→20:00)
[2017-09-07] MEDS: methylPREDNISolone INJ 125 MG/2 ML VIAL (J2930) IV ×3 (04:25→19:56)
[2017-09-07 05:56] LABS: HEMATOCRIT 31.2 % (42.0-52.0); HEMOGLOBIN 9.8 g/dl (13.5-17.5); MEAN CORPUSCULAR HEMOGLOBIN 26.1 pg (27.0-33.0); MEAN CORPUSCULAR HGB CONC 31.4 g/dl (32.0-36.5); MEAN CORPUSCULAR VOLUME 83.2 fl (80.0-96.0); PLATELET COUNT, AUTOMATED 251 10^3/uL (150-450); RED BLOOD COUNT 3.75 10^6/uL (4.30-6.10); RED CELL DISTRIBUTION WIDTH 16.1 % (11.5-14.5); WHITE BLOOD COUNT 12.8 10^3/uL (4.0-10.0)
[2017-09-07] MEDS: LEVOTHYROXINE 75MCG TABLET (0.075MG) PO (06:18)
[2017-09-07] MEDS: HEPARIN SOD (PORCINE) 5000 UNITS/ML VIAL SC ×3 (06:20→21:35)
[2017-09-07 06:21] LABS: ANION GAP 4 MEQ/L (8-16); BLOOD UREA NITROGEN 27 MG/DL (7-18); C REACTIVE PROTEIN QUANTITATIV 6.13 MG/DL (0.00-0.30); CALCIUM LEVEL 8.4 MG/DL (8.8-10.2); CARBON DIOXIDE LEVEL 31 MEQ/L (21-32); CHLORIDE LEVEL 99 MEQ/L (98-107); GLOMERULAR FILTRATION RATE > 60.0 (>42); GLUCOSE, FASTING 176 MG/DL (70-100); MAGNESIUM LEVEL 2.6 MG/DL (1.8-2.4); SODIUM LEVEL 134 MEQ/L (136-145)
[2017-09-07] MEDS: SLF 3 ML SYR IV ×3 (06:24→19:59)
[2017-09-07 06:31] LABS: POTASSIUM SERUM 5.3 MEQ/L (3.5-5.1)
[2017-09-07] MEDS: ADVAIR HFA 230/21MCG INHALER INH ×2 (07:19→20:01)
[2017-09-07] MEDS: ASPIRIN 81 MG ENTERIC TAB PO (08:22)
[2017-09-07] MEDS: SENOKOT S TAB PO ×2 (08:22→19:56)
[2017-09-07] MEDS: TAMSULOSIN 0.4 MG CAP PO (08:22)
[2017-09-07] MEDS: CEFEPIME HCL 1 GM in D5W MINI-BAG PLUS 50 ML IV ×2 (08:22→21:33)
[2017-09-07] MEDS: FINASTERIDE 5 MG TAB PO (08:22)
[2017-09-07] MEDS: PANTOPRAZOLE 40MG TAB (PROTONIX) PO ×2 (08:22→19:56)
[2017-09-07] MEDS: TORSEMIDE 20 MG TAB PO ×2 (08:23→19:56)
[2017-09-07] MEDS: traMADol 50 MG TAB PO ×3 (08:23→23:06)
[2017-09-07] MEDS: SPIRONOLACTONE 50 MG TAB PO (09:00)
[2017-09-07] MEDS ORDERED: MORPHINE 4 MG/ML 1ML VIAL/SYRINGE (J2270) As Ordered (09:07)
[2017-09-07] MEDS: MORPHINE 4 MG/ML 1ML VIAL/SYRINGE (J2270) IV (09:10)
[2017-09-07] MEDS: guaiFENesin ER 600 MG TAB PO ×2 (09:32→19:56)
[2017-09-07] MEDS: CYCLOBENZAPRINE 5MG TABLET PO ×2 (10:55→23:05)
[2017-09-07] MEDS: CALCIUM CARBONATE 500 MG CHEW U/D PO (11:20)
[2017-09-07] MEDS ORDERED: ISOVUE-370 76% 100ML VIAL (Q9967) As Ordered (12:37)
[2017-09-07] MEDS: KETOROLAC TROMETHAMINE 10 MG TAB PO ×2 (13:37→20:07)
[2017-09-07] MEDS: VANCOMYCIN HCL 1,000 MG, VIAL MATE ADAPTER 1 EACH in D5W 250 ML IV (15:00)
[2017-09-07] MEDS: FAMOTIDINE 20 MG TAB PO (19:56)
[2017-09-07] MEDS: ATORVASTATIN 20 MG TAB PO (19:57)
[2017-09-08] MEDS: IPRATROPIUM 0.5MG/ALBUTEROL 2.5MG INH SOL UD 3ML (DUONEB)(J7620) NEB ×4 (02:00→20:00)
[2017-09-08 04:50] LABS: HEMATOCRIT 29.6 % (42.0-52.0); HEMOGLOBIN 9.4 g/dl (13.5-17.5); MEAN CORPUSCULAR HGB CONC 31.8 g/dl (32.0-36.5); MEAN CORPUSCULAR VOLUME 81.8 fl (80.0-96.0); PLATELET COUNT, AUTOMATED 284 10^3/uL (150-450); RED BLOOD COUNT 3.62 10^6/uL (4.30-6.10); RED CELL DISTRIBUTION WIDTH 16.1 % (11.5-14.5); WHITE BLOOD COUNT 13.9 10^3/uL (4.0-10.0)
[2017-09-08 05:07] LABS: ANION GAP 3 MEQ/L (8-16); BLOOD UREA NITROGEN 37 MG/DL (7-18); C REACTIVE PROTEIN QUANTITATIV 2.78 MG/DL (0.00-0.30); CALCIUM LEVEL 7.2 MG/DL (8.8-10.2); CARBON DIOXIDE LEVEL 29 MEQ/L (21-32); CHLORIDE LEVEL 100 MEQ/L (98-107); CREATININE FOR GFR 1.15 MG/DL (0.70-1.30); GLOMERULAR FILTRATION RATE > 60.0 (>42); GLUCOSE, FASTING 127 MG/DL (70-100); MAGNESIUM LEVEL 2.5 MG/DL (1.8-2.4); POTASSIUM SERUM 4.3 MEQ/L (3.5-5.1); SODIUM LEVEL 132 MEQ/L (136-145)
[2017-09-08] MEDS: SLF 3 ML SYR IV ×4 (05:51→21:10)
[2017-09-08] MEDS: LEVOTHYROXINE 75MCG TABLET (0.075MG) PO (05:51)
[2017-09-08] MEDS: HEPARIN SOD (PORCINE) 5000 UNITS/ML VIAL SC ×3 (05:51→21:10)
[2017-09-08] MEDS: methylPREDNISolone INJ 125 MG/2 ML VIAL (J2930) IV ×3 (05:51→20:16)
[2017-09-08] MEDS: KETOROLAC TROMETHAMINE 10 MG TAB PO (05:53)
[2017-09-08] MEDS: ADVAIR HFA 230/21MCG INHALER INH ×2 (07:23→20:32)
[2017-09-08] MEDS: SENOKOT S TAB PO ×2 (08:43→20:17)
[2017-09-08] MEDS: ASPIRIN 81 MG ENTERIC TAB PO (08:43)
[2017-09-08] MEDS: CEFEPIME HCL 1 GM in D5W MINI-BAG PLUS 50 ML IV ×2 (08:43→20:17)
[2017-09-08] MEDS: FINASTERIDE 5 MG TAB PO (08:44)
[2017-09-08] MEDS: TAMSULOSIN 0.4 MG CAP PO (08:44)
[2017-09-08] MEDS: PANTOPRAZOLE 40MG TAB (PROTONIX) PO ×2 (08:44→20:17)
[2017-09-08] MEDS: TORSEMIDE 20 MG TAB PO ×2 (08:44→17:28)
[2017-09-08] MEDS: guaiFENesin ER 600 MG TAB PO ×2 (09:00→20:17)
[2017-09-08 14:33] LABS: VANCOMYCIN LEVEL TROUGH 15.7 UG/ML (10.0-20.0)
[2017-09-08] MEDS: VANCOMYCIN HCL 1,000 MG, VIAL MATE ADAPTER 1 EACH in D5W 250 ML IV (14:35)
[2017-09-08] MEDS: traMADol 50 MG TAB PO ×2 (19:02→22:57)
[2017-09-08] MEDS: CYCLOBENZAPRINE 5MG TABLET PO (19:03)
[2017-09-08] MEDS: ATORVASTATIN 20 MG TAB PO (20:17)
[2017-09-08] MEDS: FAMOTIDINE 20 MG TAB PO (20:17)
[2017-09-09] MEDS: IPRATROPIUM 0.5MG/ALBUTEROL 2.5MG INH SOL UD 3ML (DUONEB)(J7620) NEB ×4 (01:33→19:45)
[2017-09-09] MEDS: methylPREDNISolone INJ 125 MG/2 ML VIAL (J2930) IV (03:55)
[2017-09-09] MEDS: traMADol 50 MG TAB PO ×3 (04:11→18:08)
[2017-09-09 05:02] LABS: HEMATOCRIT 29.4 % (42.0-52.0); HEMOGLOBIN 9.3 g/dl (13.5-17.5); MEAN CORPUSCULAR HGB CONC 31.6 g/dl (32.0-36.5); MEAN CORPUSCULAR VOLUME 82.1 fl (80.0-96.0); PLATELET COUNT, AUTOMATED 297 10^3/uL (150-450); RED BLOOD COUNT 3.58 10^6/uL (4.30-6.10); RED CELL DISTRIBUTION WIDTH 16.1 % (11.5-14.5); WHITE BLOOD COUNT 11.7 10^3/uL (4.0-10.0)
[2017-09-09 05:18] LABS: ANION GAP 7 MEQ/L (8-16); BLOOD UREA NITROGEN 39 MG/DL (7-18); C REACTIVE PROTEIN QUANTITATIV 1.36 MG/DL (0.00-0.30); CALCIUM LEVEL 6.4 MG/DL (8.8-10.2); CARBON DIOXIDE LEVEL 28 MEQ/L (21-32); CHLORIDE LEVEL 101 MEQ/L (98-107); CREATININE FOR GFR 1.12 MG/DL (0.70-1.30); GLOMERULAR FILTRATION RATE > 60.0 (>42); GLUCOSE, FASTING 155 MG/DL (70-100); MAGNESIUM LEVEL 2.3 MG/DL (1.8-2.4); POTASSIUM SERUM 4.1 MEQ/L (3.5-5.1); SODIUM LEVEL 136 MEQ/L (136-145)
[2017-09-09] MEDS: SLF 3 ML SYR IV ×3 (06:34→21:16)
[2017-09-09] MEDS: HEPARIN SOD (PORCINE) 5000 UNITS/ML VIAL SC ×3 (06:34→21:14)
[2017-09-09] MEDS: LEVOTHYROXINE 75MCG TABLET (0.075MG) PO (06:34)
[2017-09-09] MEDS: ADVAIR HFA 230/21MCG INHALER INH ×2 (07:23→19:45)
[2017-09-09] MEDS: PANTOPRAZOLE 40MG TAB (PROTONIX) PO ×2 (07:54→21:15)
[2017-09-09] MEDS: guaiFENesin ER 600 MG TAB PO ×2 (07:54→21:15)
[2017-09-09] MEDS: FINASTERIDE 5 MG TAB PO (07:54)
[2017-09-09] MEDS: TORSEMIDE 20 MG TAB PO ×2 (07:54→16:07)
[2017-09-09] MEDS: CYCLOBENZAPRINE 5MG TABLET PO ×2 (07:54→21:15)
[2017-09-09] MEDS: SENOKOT S TAB PO ×2 (07:55→21:14)
[2017-09-09] MEDS: ASPIRIN 81 MG ENTERIC TAB PO (07:55)
[2017-09-09] MEDS: TAMSULOSIN 0.4 MG CAP PO (07:55)
[2017-09-09] MEDS: CEFEPIME HCL 1 GM in D5W MINI-BAG PLUS 50 ML IV ×2 (08:34→21:15)
[2017-09-09] MEDS ORDERED: MORPHINE 4 MG/ML 1ML VIAL/SYRINGE (J2270) IV (10:45)
[2017-09-09] MEDS: VANCOMYCIN HCL 1,000 MG, VIAL MATE ADAPTER 1 EACH in D5W 250 ML IV (15:05)
[2017-09-09] MEDS: methylPREDNISolone INJ 40 MG/1 ML VIAL (J2920) IV (16:07)
[2017-09-09] MEDS: FAMOTIDINE 20 MG TAB PO (21:15)
[2017-09-09] MEDS: ATORVASTATIN 20 MG TAB PO (21:15)
[2017-09-10] MEDS: IPRATROPIUM 0.5MG/ALBUTEROL 2.5MG INH SOL UD 3ML (DUONEB)(J7620) NEB ×3 (01:04→13:07)
[2017-09-10] MEDS: methylPREDNISolone INJ 40 MG/1 ML VIAL (J2920) IV ×2 (03:33→15:09)
[2017-09-10 05:14] LABS: HEMOGLOBIN 9.1 g/dl (13.5-17.5); MEAN CORPUSCULAR HEMOGLOBIN 26.1 pg (27.0-33.0); MEAN CORPUSCULAR HGB CONC 31.4 g/dl (32.0-36.5); MEAN CORPUSCULAR VOLUME 83.1 fl (80.0-96.0); PLATELET COUNT, AUTOMATED 301 10^3/uL (150-450); RED BLOOD COUNT 3.49 10^6/uL (4.30-6.10); RED CELL DISTRIBUTION WIDTH 16.5 % (11.5-14.5); WHITE BLOOD COUNT 11.3 10^3/uL (4.0-10.0)
[2017-09-10 05:37] LABS: ANION GAP 4 MEQ/L (8-16); BLOOD UREA NITROGEN 35 MG/DL (7-18); C REACTIVE PROTEIN QUANTITATIV 0.76 MG/DL (0.00-0.30); CALCIUM LEVEL 6.2 MG/DL (8.8-10.2); CARBON DIOXIDE LEVEL 31 MEQ/L (21-32); CHLORIDE LEVEL 101 MEQ/L (98-107); CREATININE FOR GFR 0.94 MG/DL (0.70-1.30); GLOMERULAR FILTRATION RATE > 60.0 (>42); GLUCOSE, FASTING 116 MG/DL (70-100); MAGNESIUM LEVEL 2.1 MG/DL (1.8-2.4); NT-PRO BNP 559 PG/ML (<125); SODIUM LEVEL 136 MEQ/L (136-145)
[2017-09-10] MEDS: HEPARIN SOD (PORCINE) 5000 UNITS/ML VIAL SC ×2 (06:05→14:37)
[2017-09-10] MEDS: SLF 3 ML SYR IV ×2 (06:05→14:00)
[2017-09-10] MEDS: LEVOTHYROXINE 75MCG TABLET (0.075MG) PO (06:05)
[2017-09-10] MEDS: CYCLOBENZAPRINE 5MG TABLET PO (07:44)
[2017-09-10] MEDS: ADVAIR HFA 230/21MCG INHALER INH (08:00)
[2017-09-10] MEDS: CEFEPIME HCL 1 GM in D5W MINI-BAG PLUS 50 ML IV (08:01)
[2017-09-10] MEDS: SENOKOT S TAB PO (08:01)
[2017-09-10] MEDS: FINASTERIDE 5 MG TAB PO (08:02)
[2017-09-10] MEDS: ASPIRIN 81 MG ENTERIC TAB PO (08:02)
[2017-09-10] MEDS: TAMSULOSIN 0.4 MG CAP PO (08:02)
[2017-09-10] MEDS: PANTOPRAZOLE 40MG TAB (PROTONIX) PO (08:02)
[2017-09-10] MEDS: guaiFENesin ER 600 MG TAB PO (08:02)
[2017-09-10] MEDS: SPIRONOLACTONE 12.5MG PER 1/2 TABLET PO (08:19)
[2017-09-10] MEDS: TORSEMIDE 20 MG TAB PO ×2 (08:19→16:12)
[2017-09-10] MEDS: traMADol 50 MG TAB PO (12:22)
[2017-09-10 14:23] LABS: VANCOMYCIN LEVEL TROUGH 14.4 UG/ML (10.0-20.0)
[2017-09-10] MEDS: VANCOMYCIN HCL 1,000 MG, VIAL MATE ADAPTER 1 EACH in D5W 250 ML IV (14:36)
== END 2017-09-10 16:30 | disposition home health service (06) | DRG 178 ==
LOC: M ED 11:54 → M ED INP 13:34 → M PCU 15:34
DX: J15.1 Pneumonia due to Pseudomonas (principal); J44.0 Chronic obstructive pulmonary disease with (acute) lower respiratory infection; J96.11 Chronic respiratory failure with hypoxia; I47.2 Ventricular tachycardia; I50.32 Chronic diastolic (congestive) heart failure; J44.1 Chronic obstructive pulmonary disease with (acute) exacerbation; M54.5 Low back pain; N40.0 Benign prostatic hyperplasia without lower urinary tract symptoms; I25.10 Atherosclerotic heart disease of native coronary artery without angina pectoris; I27.29 Other secondary pulmonary hypertension; K22.70 Barrett's esophagus without dysplasia; D64.9 Anemia, unspecified; E03.9 Hypothyroidism, unspecified; I11.0 Hypertensive heart disease with heart failure; F17.210 Nicotine dependence, cigarettes, uncomplicated; Z95.810 Presence of automatic (implantable) cardiac defibrillator; Z99.81 Dependence on supplemental oxygen; Z79.82 Long term (current) use of aspirin; Z79.891 Long term (current) use of opiate analgesic; F03.90 Unspecified dementia, unspecified severity, without behavioral disturbance, psychotic disturbance, mood disturbance, and anxiety; K21.9 Gastro-esophageal reflux disease without esophagitis; Z88.2 Allergy status to sulfonamides; Z91.040 Latex allergy status; Z91.013 Allergy to seafood; Z88.5 Allergy status to narcotic agent

== ENCOUNTER → 2017-10-14 | Outpatient (REF) | payer MEDICARE ==
[2017-10-14 14:03] LABS: APPEARANCE, URINE CLEAR (CLEAR); BACTERIA, URINE AUTO NEGATIVE (NEGATIVE); BILIRUBIN, URINE AUTO NEGATIVE (NEGATIVE); BLOOD, URINE BLOOD NEGATIVE (NEGATIVE); COLOR, URINE YELLOW (YELLOW); GLUCOSE, URINE (UA) AUTO NEGATIVE (NEGATIVE); KETONE, URINE AUTO NEGATIVE (NEGATIVE); LEUKOCYTE ESTERASE, URINE AUTO NEGATIVE (NEGATIVE); MUCUS, URINE SMALL (NEGATIVE); NITRITE, URINE AUTO NEGATIVE (NEGATIVE); PROTEIN, URINE AUTO NEGATIVE (NEGATIVE); RBC, URINE AUTO 0 /HPF (0-3); SPECIFIC GRAVITY URINE AUTO 1.008 (1.002-1.035); SQUAMOUS EPITHELIAL CELL UR AU 0 /HPF (0-6); UROBILINOGEN, URINE AUTO 0.2 mg/dL (0.0-2.0); WBC, URINE AUTO 0 /HPF (0-3)
== END ==
LOC: M SMT 12:58
DX: N40.0 Benign prostatic hyperplasia without lower urinary tract symptoms (principal)
CPT/HCPCS: 81001

== ENCOUNTER → 2018-01-07 | Outpatient (CLI) | payer MEDICARE, MEDICAID ==
[~2018-01-07] MED LIST changes: -/ADVA50050 INH; -/ESOM40CA OR; -/QUIN10TA OR; -/TAMS4CA OR; -/TIOT18INH INH; -ACCU1TAB PO; -ACCU1TAB2 PO; -ACE65ERTAB PO; -ACET1TAB17 PO; -ADVA230A INH; -ALB2.5NEB NEB; -ALBU83IN INH; -ALEN70TA39 PO; -ASPI81CH PO; -ASPI81TA85 PO; -ATEN25TA OR; -ATEN25TA PO; -ATOR80TA59 PO; -AVEL1TAB3 PO; -BISO10TA PO; -CEFT500T3 PO; -CELE1CAP7 PO; -CHAN1PAK11 PO; -CIPR25SS OR; -CIPR500T19 OR; -COUM1TAB14 PO; -COUM1TAB19 PO; -DIAZ2TAB PO; -DICL13PA TOP; -DICL1GEL3 TD; +E-Z-PAQUE 96% w/w SUSP 176GM BTL As Ordered; -EXCETAB81 PO; -FLAG500T OR; -FLOM5CAP PO; -FURO40TA2 PO; -GAS-80CH PO; -LEVA1TAB2 PO; -LEVA750T7 PO; -LEVO25TA5 PO; -LEVO50TA45 PO; -LEVO75TA34 PO; -LOVE0.6I2 SC; -NAPR375T OR; -NEBUMIS2 XX; -NEXI40CA PO; -NICO21DI31 TD; -NICO21DI4 TD; -NITR0.4S SL; -NITR4TASL SL; -OMNASPR2; -OXYC1TAB23 PO; -PRED10TA2 PO; -PRED20TA PO; -PRED20TAB PO; -PROAAER10 INH; -QUIN20TA17 PO; -RANI300T PO; -SALI0.6523; -SPIR1CAP INH; -SPIR25TA2 PO; -SPIR50TA2 PO; -SYNT50TA PO; -TAMS0.4C2 PO; -TORS20TA2 PO; -TRAM50TA2 PO; -TUMS500C PO; -TYLE325T5 PO; -VENTAER IN; -VENTAER INH; -VITA100067 PO; -VOLT1GEL15 TD; -WARF-20 PO; -WARF-60 PO; -ZANT300T PO; -ZEBE1TAB PO; -celebrex PO
[2018-01-07 13:41] LABS: BASO # 0.1 10^3/uL (0.0-0.2); BASO % 0.9 % (0.0-1.0); EOS # 0.3 10^3/uL (0.0-0.50); HEMATOCRIT 30.1 % (42.0-52.0); HEMOGLOBIN 9.5 g/dl (13.5-17.5); IMMATURE GRANULOCYTE % 0.5 % (0-3.0); LYMPH # 1.4 10^3/uL (1.5-4.5); LYMPH % 15.9 % (24.0-44.0); MEAN CORPUSCULAR HEMOGLOBIN 26.2 pg (27.0-33.0); MEAN CORPUSCULAR HGB CONC 31.6 g/dl (32.0-36.5); MEAN CORPUSCULAR VOLUME 82.9 fl (80.0-96.0); MONO % 11.6 % (0.0-5.0); NEUTROPHILS # 5.9 10^3/uL (1.8-7.7); NEUTROPHILS % 68.1 % (36.0-66.0); PLATELET COUNT, AUTOMATED 316 10^3/uL (150-450); RED BLOOD COUNT 3.63 10^6/uL (4.30-6.10); RED CELL DISTRIBUTION WIDTH 16.6 % (11.5-14.5); WHITE BLOOD COUNT 8.7 10^3/uL (4.0-10.0)
[2018-01-07 14:11] LABS: CONTROL LINE HPYORI INT CTR LINE PRESENT; H PYLORI QUALITATIVE IgG NEGATIVE (NEGATIVE)
[2018-01-07 14:50] LABS: VITAMIN B12 LEVEL 340 PG/ML (247-911)
[2018-01-07 15:13] LABS: ALBUMIN 3.4 GM/DL (3.2-5.2); ALBUMIN/GLOBULIN RATIO 1.31 (1.00-1.93); ALKALINE PHOSPHATASE 101 U/L (45-117); ALT/SGPT 19 U/L (12-78); ANION GAP 9 MEQ/L (8-16); AST/SGOT 17 U/L (7-37); BILIRUBIN,TOTAL 0.5 MG/DL (0.2-1.0); BLOOD UREA NITROGEN 19 MG/DL (7-18); CALCIUM LEVEL 8.9 MG/DL (8.8-10.2); CARBON DIOXIDE LEVEL 32 MEQ/L (21-32); CHLORIDE LEVEL 97 MEQ/L (98-107); CREATININE FOR GFR 1.02 MG/DL (0.70-1.30); FREE T4 1.22 NG/DL (0.76-1.46); GLOMERULAR FILTRATION RATE > 60.0 (>42); GLUCOSE, FASTING 82 MG/DL (70-100); POTASSIUM SERUM 3.9 MEQ/L (3.5-5.1); SODIUM LEVEL 138 MEQ/L (136-145)
[2018-01-09 10:58] LABS: MAGNESIUM LEVEL 2.1 MG/DL (1.8-2.4); NT-PRO BNP 382 PG/ML (<125)
== END ==
LOC: M RAD 08:03
DX: R10.31 Right lower quadrant pain (principal); D63.8 Anemia in other chronic diseases classified elsewhere; E03.9 Hypothyroidism, unspecified; R10.13 Epigastric pain; K44.9 Diaphragmatic hernia without obstruction or gangrene; R60.9 Edema, unspecified
CPT/HCPCS: 74250

== ENCOUNTER 2018-01-21 12:30 | Outpatient (CLI) | payer MEDICARE ==
[~2018-01-21 12:30] MED LIST changes: -E-Z-PAQUE 96% w/w SUSP 176GM BTL As Ordered; +ZOLEDRONIC ACID 5 MG in APPROPRIATE DILUENT 1 EA IV
[2018-01-21] MEDS: ZOLEDRONIC ACID 5 MG in APPROPRIATE DILUENT 1 EA IV (12:58)
== END 2018-01-21 14:15 | disposition home or self-care (01) ==
LOC: M INFU 12:30
DX: Z87.311 Personal history of (healed) other pathological fracture (principal); J44.9 Chronic obstructive pulmonary disease, unspecified; E03.9 Hypothyroidism, unspecified; N40.1 Benign prostatic hyperplasia with lower urinary tract symptoms; J84.10 Pulmonary fibrosis, unspecified; J96.11 Chronic respiratory failure with hypoxia; D63.8 Anemia in other chronic diseases classified elsewhere; D60.9 Acquired pure red cell aplasia, unspecified; R26.81 Unsteadiness on feet; Z79.82 Long term (current) use of aspirin; Z79.899 Other long term (current) drug therapy; Z91.040 Latex allergy status; Z88.2 Allergy status to sulfonamides; Z88.8 Allergy status to other drugs, medicaments and biological substances; Z91.013 Allergy to seafood
CPT/HCPCS: J3489

== ENCOUNTER 2018-01-23 07:28 | Outpatient (CLI) | payer MEDICARE, MEDICAID ==
[2018-01-23 08:17] LABS: IMMEDIATE SPIN CROSSMATCH 1 1
== END 2018-01-23 11:30 ==
LOC: M INFU 07:28
DX: D64.9 Anemia, unspecified (principal); I50.9 Heart failure, unspecified; E78.00 Pure hypercholesterolemia, unspecified; I11.0 Hypertensive heart disease with heart failure; I25.2 Old myocardial infarction; J44.9 Chronic obstructive pulmonary disease, unspecified; K57.30 Diverticulosis of large intestine without perforation or abscess without bleeding; R35.1 Nocturia; K21.9 Gastro-esophageal reflux disease without esophagitis; K52.9 Noninfective gastroenteritis and colitis, unspecified; Z79.82 Long term (current) use of aspirin; Z79.891 Long term (current) use of opiate analgesic; Z79.899 Other long term (current) drug therapy; Z91.018 Allergy to other foods; Z95.810 Presence of automatic (implantable) cardiac defibrillator
CPT/HCPCS: 36430

== ENCOUNTER 2018-02-12 16:59 | Emergency (ER) | payer MEDICARE, MEDICAID ==
[2018-02-12 18:22] LABS: BASO # 0.1 10^3/uL (0.0-0.2); BASO % 0.8 % (0.0-1.0); EOS # 0.2 10^3/uL (0.0-0.50); EOS % 2.4 % (0.0-3.0); HEMATOCRIT 32.8 % (42.0-52.0); HEMOGLOBIN 10.3 g/dl (13.5-17.5); IMMATURE GRANULOCYTE % 0.5 % (0-3.0); LYMPH # 1.4 10^3/uL (1.5-4.5); LYMPH % 15.1 % (24.0-44.0); MEAN CORPUSCULAR HEMOGLOBIN 26.5 pg (27.0-33.0); MEAN CORPUSCULAR HGB CONC 31.4 g/dl (32.0-36.5); MEAN CORPUSCULAR VOLUME 84.5 fl (80.0-96.0); MONO # 1.2 10^3/uL (0.0-0.8); MONO % 12.9 % (0.0-5.0); NEUTROPHILS # 6.5 10^3/uL (1.8-7.7); NEUTROPHILS % 68.3 % (36.0-66.0); PLATELET COUNT, AUTOMATED 384 10^3/uL (150-450); RED BLOOD COUNT 3.88 10^6/uL (4.30-6.10); RED CELL DISTRIBUTION WIDTH 16.2 % (11.5-14.5); WHITE BLOOD COUNT 9.5 10^3/uL (4.0-10.0)
[2018-02-12 18:32] LABS: INR 0.96; PROTHROMBIN TIME 12.9 SECONDS (12.1-14.4)
[2018-02-12 18:33] LABS: PARTIAL THROMBOPLASTIN TIME 34.1 SECONDS (25.4-37.6)
[2018-02-12 18:53] LABS: LACTIC ACID SEPSIS PROTOCOL 0.9 MMOL/L (0.4-2.0)
[2018-02-12 18:57] LABS: ALBUMIN 3.1 GM/DL (3.2-5.2); ALBUMIN/GLOBULIN RATIO 0.94 (1.00-1.93); ALKALINE PHOSPHATASE 104 U/L (45-117); ALT/SGPT 14 U/L (12-78); ANION GAP 5 MEQ/L (8-16); AST/SGOT 22 U/L (7-37); BILIRUBIN,DIRECT < 0.1 MG/DL (0.0-0.2); BILIRUBIN,TOTAL 0.3 MG/DL (0.2-1.0); BLOOD UREA NITROGEN 14 MG/DL (7-18); CALCIUM LEVEL 8.6 MG/DL (8.8-10.2); CARBON DIOXIDE LEVEL 35 MEQ/L (21-32); CHLORIDE LEVEL 101 MEQ/L (98-107); CREATININE FOR GFR 1.28 MG/DL (0.70-1.30); GLOMERULAR FILTRATION RATE 58.5 (>42); GLUCOSE, FASTING 76 MG/DL (70-100); SODIUM LEVEL 141 MEQ/L (136-145); TOTAL PROTEIN 6.4 GM/DL (6.4-8.2)
[2018-02-12 19:49] LABS: ERYTHROCYTE SEDIMENTATION RATE 48 mm/hr (0-20)
== END 2018-02-12 20:18 | disposition home or self-care (01) ==
LOC: M ED 16:59
DX: I87.2 Venous insufficiency (chronic) (peripheral) (principal); R60.0 Localized edema; I11.0 Hypertensive heart disease with heart failure; I50.9 Heart failure, unspecified; J44.9 Chronic obstructive pulmonary disease, unspecified; E78.5 Hyperlipidemia, unspecified; K21.9 Gastro-esophageal reflux disease without esophagitis; E03.9 Hypothyroidism, unspecified; I25.2 Old myocardial infarction; Z86.718 Personal history of other venous thrombosis and embolism; Z87.19 Personal history of other diseases of the digestive system; Z87.442 Personal history of urinary calculi; Z79.899 Other long term (current) drug therapy; Z79.890 Hormone replacement therapy; Z79.82 Long term (current) use of aspirin; Z88.2 Allergy status to sulfonamides; Z88.5 Allergy status to narcotic agent; F17.210 Nicotine dependence, cigarettes, uncomplicated
CPT/HCPCS: 93971

== ENCOUNTER → 2018-03-20 | Outpatient (REF) | payer MEDICARE, MEDICAID ==
[2018-03-20 15:19] LABS: RETIC HEMOGLOBIN EQUIVALENT 31.9 pg (24-36); RETICULOCYTE # 47.8 10^9/L (17-77); RETICULOCYTE % 1.2 % (0.5-1.5)
[2018-03-20 15:42] LABS: C REACTIVE PROTEIN QUANTITATIV < 0.30 MG/DL (0.00-0.30); FERRITIN 18 NG/ML (26-388); IRON (FE) 36 UG/DL (65-175); PERCENT SATURATION 11.3 % (19.7-50.0); RHEUMATOID FACTOR QUANT < 10.0 IU/ML (<15.0); TOTAL IRON BINDING CAPACITY 320 UG/DL (250-450)
[2018-03-20 16:18] LABS: ERYTHROCYTE SEDIMENTATION RATE 27 mm/hr (0-20)
[2018-03-25 14:14] LABS: ANTINUCLEAR ANTIBODIES DIRECT Negative (Negative); HAPTOGLOBIN 173 mg/dL (34-200); TRANSFERRIN 252 mg/dL (200-370)
== END ==
LOC: M SFHCPLAZ 11:51
DX: M13.0 Polyarthritis, unspecified (principal); D63.8 Anemia in other chronic diseases classified elsewhere; Z23 Encounter for immunization
CPT/HCPCS: 83010

== ENCOUNTER 2018-06-14 16:41 | Emergency (ER) | payer MEDICARE, MEDICAID ==
[~2018-06-14] VITALS: Ht 160 cm; Wt 65.9 kg
[~2018-06-14 16:41] MED LIST changes: +/ADVA50050 INH; +/ESOM40CA OR; +/QUIN10TA OR; +/TAMS4CA OR; +/TIOT18INH INH; +ACCU1TAB PO; +ACCU1TAB2 PO; +ACE65ERTAB PO; +ACET1TAB55 PO; +ADVA230A INH; +ALB2.5NEB NEB; +ALBU83IN INH; +ALDA25TA2 PO; +ALEN70TA57 PO; +ASPI81CH PO; +ASPI81TA85 PO; +ATEN25TA OR; +ATEN25TA PO; +ATOR80TA59 PO; +AUGM875T28 PO; +AVEL1TAB3 PO; +BISO10TA PO; +CALC500C16 PO; +CEFT500T3 PO; +CELE1CAP7 PO; +CHAN1PAK11 PO; +CIPR25SS OR; +CIPR500T19 OR; +COUM1TAB14 PO; +COUM1TAB19 PO; +DEMA20TA6 PO; +DIAZ2TAB PO; +DICL13PA TOP; +DICL1GEL3 TD; +EXCETAB81 PO; +FINA5TAB2 PO; +FLAG500T OR; +FLOM0.4C39 PO; +FLON1SPR; +FURO40TA2 PO; +GAS-80CH PO; +LEVA1TAB2 PO; +LEVA750T7 PO; +LEVO25TA5 PO; +LEVO50TA45 PO; +LEVO75TA34 PO; +LEVO75TA4 PO; +LOVE0.6I2 SC; +NAPR375T OR; +NEBUMIS2 XX; +NEXI40CA PO; +NICO21DI31 TD; +NICO21DI4 TD; +NITR0.4S SL; +NITR4TASL SL; +OMNASPR2; +OXYC1TAB23 PO; +PRED10TA2 PO; +PRED20TA PO; +PRED20TAB PO; +PROAAER10 INH; +QUIN1TAB3 PO; +RANI300T PO; +SALI0.6528; +SPIR-10 PO; +SPIR100T3 PO; +SPIR1CAP; +SPIR1CAP INH; +SPIR50TA4 PO; +SUCR1TAB56; +SYNT50TA PO; +TAMS0.4C2 PO; +TORS20TA2 PO; +TRAM50TA2 PO; +TUMS500C PO; +TYLE325T5 PO; +VENTAER IN; +VENTAER INH; +VITA100067 PO; +VOLT1GEL15 TD; +WARF-20 PO; +WARF-60 PO; +ZANT300T9 PO; +ZEBE1TAB PO; -ZOLEDRONIC ACID 5 MG in APPROPRIATE DILUENT 1 EA IV; +celebrex PO
[2018-06-14] MEDS ORDERED: IPRATROPIUM 0.5MG/ALBUTEROL 2.5MG INH SOL UD 3ML (DUONEB)(J7620) NEB ONE (17:15)
[2018-06-14] MEDS ORDERED: ALBUTEROL SULFATE 2.5 MG/0.5 ML INH NEB SOLN INH ONE (17:15)
[2018-06-14] MEDS ORDERED: dexameTHASONE 20 MG/5 ML VIAL (J1100) IV ONE (17:15)
[2018-06-14 18:19] LABS: VENOUS BASE EXCESS 7.7 (-2.0-2.0); VENOUS O2 SATURATION 54.8 % (60.0-80.0); VENOUS PH 7.394 UNITS (7.330-7.430); VENOUS STANDARD HCO3 30.6 MEQ/L; VENOUS TOTAL CO2 35.8 MEQ/L (24.0-28.0)
[2018-06-14 18:24] LABS: BASO # 0.1 10^3/uL (0.0-0.2); BASO % 0.8 % (0.0-1.0); EOS # 0.1 10^3/uL (0.0-0.50); EOS % 0.5 % (0.0-3.0); HEMOGLOBIN 10.5 g/dl (13.5-17.5); LYMPH # 0.5 10^3/uL (1.5-4.5); LYMPH % 4.9 % (24.0-44.0); MEAN CORPUSCULAR HEMOGLOBIN 27.2 pg (27.0-33.0); MEAN CORPUSCULAR HGB CONC 31.8 g/dl (32.0-36.5); MEAN CORPUSCULAR VOLUME 85.5 fl (80.0-96.0); MONO # 0.9 10^3/uL (0.0-0.8); MONO % 8.4 % (0.0-5.0); NEUTROPHILS # 9.1 10^3/uL (1.8-7.7); NEUTROPHILS % 84.9 % (36.0-66.0); PLATELET COUNT, AUTOMATED 237 10^3/uL (150-450); RED BLOOD COUNT 3.86 10^6/uL (4.30-6.10); WHITE BLOOD COUNT 10.7 10^3/uL (4.0-10.0)
[2018-06-14 18:55] LABS: ALBUMIN 3.3 GM/DL (3.2-5.2); ALT/SGPT 14 U/L (12-78); BILIRUBIN,DIRECT 0.2 MG/DL (0.0-0.2); BILIRUBIN,TOTAL 0.4 MG/DL (0.2-1.0); BLOOD UREA NITROGEN 15 MG/DL (7-18); CALCIUM LEVEL 8.1 MG/DL (8.8-10.2); CARBON DIOXIDE LEVEL 33 MEQ/L (21-32); CHLORIDE LEVEL 97 MEQ/L (98-107); CPK CREATINE PHOSPHOKINASE 80 U/L (39-308); CREATININE FOR GFR 1.01 MG/DL (0.70-1.30); GLOMERULAR FILTRATION RATE > 60.0 (>42); GLUCOSE, FASTING 69 MG/DL (70-100); NT-PRO BNP 451 PG/ML (<450); POTASSIUM SERUM 3.6 MEQ/L (3.5-5.1); SODIUM LEVEL 137 MEQ/L (136-145); THYROID STIMULATING HORMONE 0.933 uIU/ML (0.358-3.740); TOTAL PROTEIN 5.9 GM/DL (6.4-8.2); TROPONIN I < 0.02 NG/ML (< 0.10)
[2018-06-14 19:15] VITALS: BP 114/63
--- NOTE | 2018-06-14 19:45 | ECGEPIP ---
Stationary ECG Study [facility] - ED Test Date: 2018-06-14 Pat Name: FIDEL TORRES Department: Room: - Gender: M Clinical Safety Specialist: [facility] : [id number] Requested By: YEIMI Joya Order Number: [id number] Reading MD: Guy Chavez Measurements Intervals [place] Rate: 102 P: 42 RI: 124 QRS: 127 QRSD: 150 T: 10 QT: 388 QTc: 507 Interpretive Statements ELECTRONIC VENTRICULAR PACEMAKER ABNORMAL RHYTHM ECG 09/08/17 RATE INCREASED Electronically Signed On 06-14-2018 19:45:15 EST by Guy Chavez
[2018-06-14] MEDS ORDERED: OSELTAMIVIR PHOSPHATE 75 MG CAP (TAMIFLU) PO ONE (20:00)
[2018-06-14] MEDS ORDERED: PRED20TA PO (20:03)
[2018-06-14] MEDS ORDERED: OSEL75CA PO (20:03)
--- NOTE | 2018-06-15 09:42 | REP ---
CHEST, PORTABLE: AP portable view of the chest is performed and compared to a prior study of 09/06/2017. Chronic interstitial opacities are again seen bilaterally. No definite new infiltrate is seen. There is calcification and ectasia of the thoracic aorta. Left pacemaker is again noted. IMPRESSION: Bilateral chronic interstitial opacities. No definite new infiltrate. Electronically Signed by David Jameson MD 06/15/2018 06:54 P
== END 2018-06-14 20:12 | disposition home or self-care (01) ==
LOC: M ED 16:41
DX: J09.X2 Influenza due to identified novel influenza A virus with other respiratory manifestations (principal); J96.11 Chronic respiratory failure with hypoxia; J84.10 Pulmonary fibrosis, unspecified; N40.0 Benign prostatic hyperplasia without lower urinary tract symptoms; I27.81 Cor pulmonale (chronic); J44.9 Chronic obstructive pulmonary disease, unspecified; I11.9 Hypertensive heart disease without heart failure; I25.10 Atherosclerotic heart disease of native coronary artery without angina pectoris; E03.9 Hypothyroidism, unspecified; Z99.81 Dependence on supplemental oxygen; F17.200 Nicotine dependence, unspecified, uncomplicated; Z95.0 Presence of cardiac pacemaker; Z88.2 Allergy status to sulfonamides; Z88.5 Allergy status to narcotic agent; Z91.040 Latex allergy status; Z91.013 Allergy to seafood; Z79.899 Other long term (current) drug therapy; Z79.51 Long term (current) use of inhaled steroids; Z79.82 Long term (current) use of aspirin
CPT/HCPCS: 36415; 71045; 80048; 80076; 82550; 82553; 82803; 83880; 84443; 84484; 85025; 87040; 87070; 87077; 87205; 87486; 87581; 87633; 87798; 93005; 93041; 94640; 96374; 99285; J1100

== ENCOUNTER 2018-06-16 09:03 | Outpatient (CLI) | payer MEDICARE, MEDICAID ==
[~2018-06-16] VITALS: Ht 154.9 cm; Wt 73.5 kg
[2018-06-16] VITALS (7 sets, daily range): BP systolic 102–114; BP diastolic 54–65
[~2018-06-16 09:03] MED LIST changes: +OSEL75CA PO
[2018-06-16] MEDS ORDERED: IRON SUCROSE 500 MG in NS 250 ML OVER 4 HRS IV ONE (10:00)
[2018-06-16 10:01] LABS: AMORPHOUS SEDIMENT SMALL (NEGATIVE); APPEARANCE, URINE CLEAR (CLEAR); BACTERIA, URINE AUTO 1+ (NEGATIVE); BILIRUBIN, URINE AUTO NEGATIVE (NEGATIVE); BLOOD, URINE BLOOD NEGATIVE (NEGATIVE); COLOR, URINE STRAW (YELLOW); GLUCOSE, URINE (UA) AUTO NEGATIVE (NEGATIVE); KETONE, URINE AUTO NEGATIVE (NEGATIVE); LEUKOCYTE ESTERASE, URINE AUTO 1+ (NEGATIVE); MUCUS, URINE SMALL (NEGATIVE); NITRITE, URINE AUTO POSITIVE (NEGATIVE); PROTEIN, URINE AUTO NEGATIVE (NEGATIVE); RBC, URINE AUTO 0 /HPF (0-3); SPECIFIC GRAVITY URINE AUTO 1.008 (1.002-1.035); SQUAMOUS EPITHELIAL CELL UR AU 0 /HPF (0-6); UROBILINOGEN, URINE AUTO 0.2 mg/dL (0.0-2.0); WBC, URINE AUTO 12 /HPF (0-3)
[2018-06-16 10:11] LABS: BASO % 0.2 % (0.0-1.0); HEMATOCRIT 31.2 % (42.0-52.0); HEMOGLOBIN 10.1 g/dl (13.5-17.5); LYMPH # 0.4 10^3/uL (1.5-4.5); LYMPH % 3.6 % (24.0-44.0); MEAN CORPUSCULAR HEMOGLOBIN 27.2 pg (27.0-33.0); MEAN CORPUSCULAR HGB CONC 32.4 g/dl (32.0-36.5); MEAN CORPUSCULAR VOLUME 83.9 fl (80.0-96.0); MONO % 8.2 % (0.0-5.0); NEUTROPHILS # 10.2 10^3/uL (1.8-7.7); NEUTROPHILS % 87.3 % (36.0-66.0); PLATELET COUNT, AUTOMATED 257 10^3/uL (150-450); RED BLOOD COUNT 3.72 10^6/uL (4.30-6.10); WHITE BLOOD COUNT 11.6 10^3/uL (4.0-10.0)
[2018-06-16 10:23] LABS: BLOOD UREA NITROGEN 24 MG/DL (7-18); CALCIUM LEVEL 7.6 MG/DL (8.8-10.2); CARBON DIOXIDE LEVEL 33 MEQ/L (21-32); CHLORIDE LEVEL 99 MEQ/L (98-107); CREATININE FOR GFR 1.14 MG/DL (0.70-1.30); GLOMERULAR FILTRATION RATE > 60.0 (>42); GLUCOSE, FASTING 117 MG/DL (70-100); POTASSIUM SERUM 3.6 MEQ/L (3.5-5.1); SODIUM LEVEL 138 MEQ/L (136-145)
== END 2018-06-16 14:45 | disposition home or self-care (01) ==
LOC: M INFU 09:03
PROVIDERS: ATTEND Family Medicine
DX: D50.0 Iron deficiency anemia secondary to blood loss (chronic) (principal); N18.3 Chronic kidney disease, stage 3 (moderate); Z88.2 Allergy status to sulfonamides; Z88.5 Allergy status to narcotic agent; Z91.040 Latex allergy status; Z91.013 Allergy to seafood
CPT/HCPCS: 36415; 80048; 81001; 85025; 96365; 96366; J1756

== ENCOUNTER → 2018-07-21 | Outpatient (CLI) | payer MEDICARE, MEDICAID ==
[2018-07-21 15:54] LABS: BASO # 0.1 10^3/uL (0.0-0.2); EOS # 0.2 10^3/uL (0.0-0.50); EOS % 1.6 % (0.0-3.0); HEMATOCRIT 34.7 % (42.0-52.0); HEMOGLOBIN 11.2 g/dl (13.5-17.5); LYMPH # 1.2 10^3/uL (1.5-4.5); LYMPH % 11.8 % (24.0-44.0); MEAN CORPUSCULAR HEMOGLOBIN 27.9 pg (27.0-33.0); MEAN CORPUSCULAR HGB CONC 32.3 g/dl (32.0-36.5); MEAN CORPUSCULAR VOLUME 86.5 fl (80.0-96.0); MONO # 1.1 10^3/uL (0.0-0.8); MONO % 10.5 % (0.0-5.0); NEUTROPHILS # 7.6 10^3/uL (1.8-7.7); NEUTROPHILS % 74.7 % (36.0-66.0); PLATELET COUNT, AUTOMATED 257 10^3/uL (150-450); RED BLOOD COUNT 4.01 10^6/uL (4.30-6.10); WHITE BLOOD COUNT 10.2 10^3/uL (4.0-10.0)
[2018-07-21 16:23] LABS: BLOOD UREA NITROGEN 22 MG/DL (7-18); CALCIUM LEVEL 8.1 MG/DL (8.8-10.2); CARBON DIOXIDE LEVEL 32 MEQ/L (21-32); CHLORIDE LEVEL 97 MEQ/L (98-107); CREATININE FOR GFR 1.11 MG/DL (0.70-1.30); GLOMERULAR FILTRATION RATE > 60.0 (>42); GLUCOSE, FASTING 91 MG/DL (70-100); IRON (FE) 44 UG/DL (65-175); NT-PRO BNP 236 PG/ML (<450); POTASSIUM SERUM 3.6 MEQ/L (3.5-5.1); SODIUM LEVEL 137 MEQ/L (136-145); TOTAL IRON BINDING CAPACITY 315 UG/DL (250-450)
--- NOTE | 2018-07-21 18:06 | REP ---
Soft-tissue neck ultrasound with Doppler: History: Pulsatile neck mass. Findings: Imaging of the left neck in the area of pulsatile mass demonstrates a normal tortuous proximal internal carotid artery segment coursing superficially under the skin. There is no evidence of aneurysm or stenosis in this segment. Normal Doppler wave form. Impression: No evidence of mass or aneurysm. Tortuosity of the proximal ICA is seen quite superficially positioned beneath the skin of the left neck. Electronically Signed by Jeff Blanco MD 07/21/2018 07:20 P
== END ==
LOC: M RAD 14:22
PROVIDERS: ATTEND Family Medicine
DX: I27.81 Cor pulmonale (chronic) (principal); R22.1 Localized swelling, mass and lump, neck; D50.0 Iron deficiency anemia secondary to blood loss (chronic); N18.3 Chronic kidney disease, stage 3 (moderate)

== ENCOUNTER 2018-08-26 08:29 | Day surgery (SDC) | payer MEDICARE, MEDICAID ==
[~2018-08-26] VITALS: Ht 154.9 cm; Wt 66.3 kg
[~2018-08-26 08:29] MED LIST changes: -/ADVA50050 INH; -/ESOM40CA OR; -/QUIN10TA OR; -/TAMS4CA OR; -/TIOT18INH INH; +ACCU1TAB OR; +ADVA1AER2 INH; -ALEN70TA57 PO; +ALEN70TA74 PO; -ASPI81CH PO; +ASPI81CH49 PO; -BISO10TA PO; +BISO10TA13 PO; +BISO5TAB5 PO; +FLOM0.4C39 OR; +HYDR-3713 PO; +NEXI1CAP3 OR; +NS 1,000 ML IV ONE; +OMNA50SP; -OMNASPR2; +PROPOFOL 500 MG/50 ML VIAL As Ordered ONE; +SIME1CAP3 PO; -SPIR1CAP; +TORS5TAB2 PO
[2018-08-26] MEDS ORDERED: METOPROLOL TART 25 MG TABLET As Ordered ONE (09:13)
[2018-08-26 09:20] VITALS: BP 137/79
[2018-08-26] MEDS ORDERED: METOPROLOL TART 25 MG TABLET PO ONE (10:00)
--- NOTE | 2018-08-26 10:03 | ROOR ---
Patient Name: Davion Murphy Procedure Date: 08/26/2018 9:49 AM Date of : 1945 Age: 73 Room: [facility] Gender: Male Note Status: Finalized Procedure: Upper GI endoscopy Indications: Iron deficiency anemia Providers: Aaron EVANS MD Referring MD: Lucas MILES MD Requesting Provider: Medicines: Monitored Anesthesia Care Complications: No immediate complications. Procedure: Pre-Anesthesia Assessment: - The heart rate, respiratory rate, oxygen saturations, blood pressure, adequacy of pulmonary ventilation, and response to care were monitored throughout the procedure. The Endoscope was introduced through the mouth, and advanced to the second part of duodenum. The upper GI endoscopy was accomplished without difficulty. The patient tolerated the procedure well. Findings: The Z-line was variable and was found at the gastroesophageal junction. This was biopsied with a cold forceps for histology. The examined esophagus was normal. Very small (insignificant) Hiatal Hernia. Mild inflammation was found in the cardia. Biopsies were taken with a cold forceps for histology. The exam of the stomach was otherwise normal. The examined duodenum was normal. Impression: - Normal esophagus with Z-line variable, at the gastroesophageal junction. Biopsied. - Very small (insignificant) Hiatal Hernia. - Gastritis. Biopsied. - Normal examined duodenum. Recommendation: - Continue present medications. - Await pathology results. Aaron Evans MD Aaron EVANS MD 08/26/2018 10:03:07 AM Electronically signed by Aaron EVANS MD Number of Addenda: 0 Note Initiated On: 08/26/2018 9:49 AM Estimated Blood Loss: Estimated blood loss: none.
--- NOTE | 2018-08-26 10:32 | ROOR ---
Patient Name: Davion Murphy Procedure Date: 08/26/2018 9:49 AM Date of : 1945 Age: 73 Room: [facility] Gender: Male Note Status: Finalized Procedure: Colonoscopy Indications: Iron deficiency anemia Providers: Aaron EVANS MD Referring MD: Lucas MILES MD Requesting Provider: Medicines: Monitored Anesthesia Care Complications: No immediate complications. Procedure: Pre-Anesthesia Assessment: - The heart rate, respiratory rate, oxygen saturations, blood pressure, adequacy of pulmonary ventilation, and response to care were monitored throughout the procedure. The Colonoscope was introduced through the anus and advanced to the terminal ileum, with identification of the appendiceal orifice and IC valve. The colonoscopy was performed without difficulty. The patient tolerated the procedure well. The quality of the bowel preparation was adequate. Findings: The perianal and digital rectal examinations were normal. A diminutive polyp was found in the cecum. The polyp was sessile. The polyp was removed with a cold snare. Resection and retrieval were complete. Multiple small and large-mouthed diverticula were found in the sigmoid colon. Internal hemorrhoids were found during retroflexion. The hemorrhoids were medium-sized. The exam was otherwise without abnormality on direct and retroflexion views. Impression: - One diminutive polyp in the cecum, removed with a cold snare. Resected and retrieved. - Diverticulosis in the sigmoid colon. - Internal hemorrhoids. - The examination was otherwise normal on direct and retroflexion views. Recommendation: - Continue present medications. - Return to referring physician as previously scheduled. Aaron Evans MD Aaron EVANS MD 08/26/2018 10:31:42 AM Electronically signed by Aaron EVANS MD Number of Addenda: 0 Note Initiated On: 08/26/2018 9:49 AM Estimated Blood Loss: Estimated blood loss: none.
[2018-08-26] MEDS ORDERED: LIDOCAINE 2% INJ 100 MG/5 ML SDV (FOR ANES.) As Ordered ONE (10:51)
[2018-08-26 11:12] VITALS: BP 107/58
== END 2018-08-26 11:12 | disposition home or self-care (01) ==
LOC: M OPP 08:29
PROVIDERS: ATTEND Internal Medicine Gastroenterology
DX: D12.0 Benign neoplasm of cecum (principal); K57.30 Diverticulosis of large intestine without perforation or abscess without bleeding; K64.8 Other hemorrhoids; K22.8 Other specified diseases of esophagus; K44.9 Diaphragmatic hernia without obstruction or gangrene; K29.70 Gastritis, unspecified, without bleeding; D50.9 Iron deficiency anemia, unspecified

== ENCOUNTER 2018-10-03 08:07 | Emergency (ER) | payer MEDICARE, MEDICAID ==
[~2018-10-03 08:07] MED LIST changes: -NS 1,000 ML IV ONE; -PROPOFOL 500 MG/50 ML VIAL As Ordered ONE
[2018-10-03] MEDS ORDERED: SUCR1TAB56 (08:18)
[2018-10-03] MEDS ORDERED: SPIR-10 (08:18)
[2018-10-03] MEDS ORDERED: TETRACAINE 0.5% OPHTH SOLN 4ML OS ONE (08:45)
[2018-10-03] MEDS ORDERED: FLUORESCEIN OPHTH 1 MG STRIP OS ONE (08:45)
[2018-10-03 10:58] VITALS: BP 116/64
== END 2018-10-03 11:01 | disposition home or self-care (01) ==
LOC: M ED 08:07
DX: H53.132 Sudden visual loss, left eye (principal); H40.052 Ocular hypertension, left eye; I11.0 Hypertensive heart disease with heart failure; I50.9 Heart failure, unspecified; I25.2 Old myocardial infarction; I27.81 Cor pulmonale (chronic); Z99.81 Dependence on supplemental oxygen; E78.5 Hyperlipidemia, unspecified; K21.9 Gastro-esophageal reflux disease without esophagitis; E03.9 Hypothyroidism, unspecified; N40.1 Benign prostatic hyperplasia with lower urinary tract symptoms; Z96.0 Presence of urogenital implants; F17.210 Nicotine dependence, cigarettes, uncomplicated; Z95.810 Presence of automatic (implantable) cardiac defibrillator; Z87.442 Personal history of urinary calculi; Z88.2 Allergy status to sulfonamides; Z88.6 Allergy status to analgesic agent; Z88.5 Allergy status to narcotic agent; Z91.040 Latex allergy status; Z91.013 Allergy to seafood; Z79.82 Long term (current) use of aspirin; Z79.51 Long term (current) use of inhaled steroids; Z79.891 Long term (current) use of opiate analgesic; Z79.899 Other long term (current) drug therapy

== ENCOUNTER → 2018-10-22 | Outpatient (CLI) | payer MEDICARE, MEDICAID ==
[~2018-10-22] MED LIST changes: +SPIR-10
[2018-10-22 12:03] LABS: BLOOD UREA NITROGEN 26 MG/DL (7-18); CALCIUM LEVEL 8.8 MG/DL (8.8-10.2); CARBON DIOXIDE LEVEL 33 MEQ/L (21-32); CHLORIDE LEVEL 98 MEQ/L (98-107); CREATININE FOR GFR 1.05 MG/DL (0.70-1.30); GLOMERULAR FILTRATION RATE > 60.0 (>42); GLUCOSE, FASTING 81 MG/DL (70-100); MAGNESIUM LEVEL 2.3 MG/DL (1.8-2.4); POTASSIUM SERUM 4.4 MEQ/L (3.5-5.1); SODIUM LEVEL 138 MEQ/L (136-145)
== END ==
LOC: M LAB 09:48
PROVIDERS: ATTEND Physician Assistant
DX: I27.81 Cor pulmonale (chronic) (principal); I50.42 Chronic combined systolic (congestive) and diastolic (congestive) heart failure

== ENCOUNTER 2018-12-15 10:06 | Emergency (ER) | payer MEDICARE ==
[2018-12-15 10:07] VITALS: BP 125/58
[2018-12-15] MEDS ORDERED: RANI300T PO (10:35)
[2018-12-15] MEDS ORDERED: NAPR220C14 PO (10:35)
[2018-12-15] MEDS ORDERED: CALC500C16 PO (10:35)
[2018-12-15] MEDS ORDERED: FINA5TAB2 PO (10:35)
[2018-12-15] MEDS ORDERED: CLOTCRE3 TOP (10:50)
== END 2018-12-15 11:01 | disposition home or self-care (01) ==
LOC: M ED 10:06
DX: N48.89 Other specified disorders of penis (principal); I25.2 Old myocardial infarction; N40.0 Benign prostatic hyperplasia without lower urinary tract symptoms; Z87.442 Personal history of urinary calculi; Z95.0 Presence of cardiac pacemaker; Z95.810 Presence of automatic (implantable) cardiac defibrillator; Z79.82 Long term (current) use of aspirin; Z79.899 Other long term (current) drug therapy; Z88.2 Allergy status to sulfonamides; Z88.6 Allergy status to analgesic agent; Z88.5 Allergy status to narcotic agent; Z91.013 Allergy to seafood; Z91.040 Latex allergy status

== ENCOUNTER 2019-01-15 09:32 | Emergency (ER) | payer MEDICARE ==
[~2019-01-15] VITALS: Ht 170.2 cm; Wt 67.9 kg
[~2019-01-15 09:32] MED LIST changes: -BISO5TAB5 PO; +BISO5TAB9 PO; +CLOTCRE3 TOP; +NAPR220C14 PO
[2019-01-15] MEDS: IPRATROPIUM 0.5MG/ALBUTEROL 2.5MG INH SOL UD 3ML (DUONEB)(J7620) NEB SCH ×3 (10:11→10:39)
--- NOTE | 2019-01-15 10:18 | REP ---
ORAL CHEST X-RAY: Single view. HISTORY: Dyspnea and cough. COMPARISON STUDY: June 14, 2018. FINDINGS: EKG electrodes are seen. A multi-lead pacemaker is noted in the right heart via the left side. The patient is rotated to the left for the current exposure. Left hemidiaphragm is somewhat elevated as before. There are mild linear opacities in both bases suggesting fibrosis. No focal infiltrate is seen. The heart appears to be mildly prominent. Aorta is calcific and somewhat tortuous. IMPRESSION: Bibasilar linear fibrosis. Pacemaker and cardiomegaly. No acute infiltrate. Electronically Signed by Jeff Blanco MD 01/15/2019 12:59 P
[2019-01-15 10:31] LABS: BASO # 0.1 10^3/uL (0.0-0.2); BASO % 0.9 % (0.0-1.0); EOS # 0.1 10^3/uL (0.0-0.5); EOS % 1.5 % (0.0-3.0); HEMATOCRIT 36.2 % (42.0-52.0); HEMOGLOBIN 11.9 g/dl (13.5-17.5); LYMPH # 1.2 10^3/uL (1.5-5.0); LYMPH % 13.1 % (24.0-44.0); MEAN CORPUSCULAR HEMOGLOBIN 30.1 pg (27.0-33.0); MEAN CORPUSCULAR HGB CONC 32.9 g/dl (32.0-36.5); MEAN CORPUSCULAR VOLUME 91.6 fl (80.0-96.0); MONO % 10.7 % (0.0-5.0); NEUTROPHILS # 6.8 10^3/uL (1.5-8.5); NEUTROPHILS % 72.9 % (36.0-66.0); PLATELET COUNT, AUTOMATED 227 10^3/uL (150-450); RED BLOOD COUNT 3.95 10^6/uL (4.30-6.10); WHITE BLOOD COUNT 9.3 10^3/uL (4.0-10.0)
[2019-01-15 10:42] LABS: INR 0.99; PROTHROMBIN TIME 12.8 SECONDS (11.8-14.0)
[2019-01-15 11:06] LABS: ALBUMIN 3.6 GM/DL (3.2-5.2); ALT/SGPT 15 U/L (12-78); BILIRUBIN,DIRECT 0.2 MG/DL (0.0-0.2); BILIRUBIN,TOTAL 0.5 MG/DL (0.2-1.0); BLOOD UREA NITROGEN 29 MG/DL (7-18); CARBON DIOXIDE LEVEL 31 MEQ/L (21-32); CHLORIDE LEVEL 100 MEQ/L (98-107); CK-MB VALUE MASS 2.1 NG/ML (<3.6); CPK CREATINE PHOSPHOKINASE 108 U/L (39-308); CREATININE FOR GFR 1.18 MG/DL (0.70-1.30); GLOMERULAR FILTRATION RATE > 60.0 (>42); GLUCOSE, FASTING 77 MG/DL (70-100); MAGNESIUM LEVEL 2.3 MG/DL (1.8-2.4); MB/CK RELATIVE INDEX 1.94 (< OR =4); NT-PRO BNP 401 PG/ML (<450); POTASSIUM SERUM 3.8 MEQ/L (3.5-5.1); SODIUM LEVEL 139 MEQ/L (136-145); TOTAL PROTEIN 6.3 GM/DL (6.4-8.2); TROPONIN I < 0.02 NG/ML (< 0.10)
[2019-01-15 13:07] VITALS: O2SAT 95
[2019-01-15] MEDS ORDERED: CEFU50TA PO (13:34)
[2019-01-15] MEDS ORDERED: PRED20TA PO (14:17)
[2019-01-15 14:31] VITALS: BP 131/69
--- NOTE | 2019-01-15 20:31 | ECGEPIP ---
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
== END 2019-01-15 14:34 | disposition home or self-care (01) ==
LOC: M ED 09:32
DX: J44.1 Chronic obstructive pulmonary disease with (acute) exacerbation (principal); J40 Bronchitis, not specified as acute or chronic; I11.0 Hypertensive heart disease with heart failure; I50.9 Heart failure, unspecified; I25.10 Atherosclerotic heart disease of native coronary artery without angina pectoris; E07.9 Disorder of thyroid, unspecified; I27.20 Pulmonary hypertension, unspecified; R91.8 Other nonspecific abnormal finding of lung field; Z99.81 Dependence on supplemental oxygen; J84.10 Pulmonary fibrosis, unspecified; F17.210 Nicotine dependence, cigarettes, uncomplicated; Z95.0 Presence of cardiac pacemaker; Z88.2 Allergy status to sulfonamides; Z88.6 Allergy status to analgesic agent; Z88.5 Allergy status to narcotic agent; Z91.040 Latex allergy status; Z91.013 Allergy to seafood; Z79.899 Other long term (current) drug therapy; Z79.51 Long term (current) use of inhaled steroids; Z79.82 Long term (current) use of aspirin

== ENCOUNTER → 2019-04-14 | Outpatient (CLI) | payer MEDICAID, MEDICARE ==
[~2019-04-14] MED LIST changes: +CEFU50TA PO
[2019-04-14 11:20] LABS: BLOOD UREA NITROGEN 21 MG/DL (7-18); CALCIUM LEVEL 8.7 MG/DL (8.8-10.2); CARBON DIOXIDE LEVEL 36 MEQ/L (21-32); CHLORIDE LEVEL 97 MEQ/L (98-107); CREATININE FOR GFR 0.98 MG/DL (0.70-1.30); GLOMERULAR FILTRATION RATE > 60.0 (>42); GLUCOSE, FASTING 80 MG/DL (70-100); MAGNESIUM LEVEL 2.1 MG/DL (1.8-2.4); POTASSIUM SERUM 3.7 MEQ/L (3.5-5.1); SODIUM LEVEL 139 MEQ/L (136-145)
== END ==
LOC: M LAB 09:56
PROVIDERS: ATTEND Physician Assistant
DX: I27.81 Cor pulmonale (chronic) (principal); I50.42 Chronic combined systolic (congestive) and diastolic (congestive) heart failure

== ENCOUNTER → 2019-06-29 | Outpatient (REF) | payer MEDICARE ==
[~2019-06-29] MED LIST changes: +BISO5TAB14 PO; -BISO5TAB9 PO
[2019-06-29 13:18] LABS: HEMATOCRIT 35.4 % (42.0-52.0); HEMOGLOBIN 11.4 g/dl (13.5-17.5); MEAN CORPUSCULAR HEMOGLOBIN 29.2 pg (27.0-33.0); MEAN CORPUSCULAR HGB CONC 32.2 g/dl (32.0-36.5); MEAN CORPUSCULAR VOLUME 90.8 fl (80.0-96.0); PLATELET COUNT, AUTOMATED 240 10^3/uL (150-450); WHITE BLOOD COUNT 8.5 10^3/uL (4.0-10.0)
[2019-06-29 14:02] LABS: CHOLESTEROL RISK RATIO 1.631 (<5); FREE T4 1.25 NG/DL (0.76-1.46); PERCENT SATURATION 24.5 % (19.7-50.0); THYROID STIMULATING HORMONE 1.46 uIU/ML (0.358-3.740)
== END ==
LOC: M SFHCPLAZ 10:10
PROVIDERS: ATTEND Physician Assistant
DX: D50.0 Iron deficiency anemia secondary to blood loss (chronic) (principal); D63.8 Anemia in other chronic diseases classified elsewhere; E78.2 Mixed hyperlipidemia
CPT/HCPCS: 36415; 80061; 83550; 84439; 84443; 85027; G0463

== ENCOUNTER 2019-09-30 19:38 | Emergency (ER) | payer MEDICARE ==
[~2019-09-30] VITALS: Ht 167.6 cm; Wt 74.8 kg
[~2019-09-30 19:38] MED LIST changes: -COUM1TAB14 PO; +COUM4TAB8 PO
[2019-09-30] MEDS ORDERED: GI COCKTAIL 50ML BTL(HYOSCYAMINE/MAALOX/LIDOCAINE VISCOUS)(1:3:1) PO ONE (20:00)
[2019-09-30] MEDS ORDERED: ALBUTEROL SULFATE 2.5 MG/0.5 ML INH NEB SOLN NEB ONE (20:15)
[2019-09-30] MEDS ORDERED: FAMO40TA3 PO (20:27)
[2019-09-30 20:55] LABS: BASO # 0.1 10^3/uL (0.0-0.2); BASO % 0.7 % (0.0-1.0); EOS # 0.1 10^3/uL (0.0-0.5); EOS % 1.3 % (0.0-3.0); HEMATOCRIT 35.2 % (42.0-52.0); HEMOGLOBIN 11.6 g/dl (13.5-17.5); LYMPH # 1.1 10^3/uL (1.5-5.0); MEAN CORPUSCULAR HEMOGLOBIN 29.7 pg (27.0-33.0); MEAN CORPUSCULAR VOLUME 90.3 fl (80.0-96.0); MONO # 1.1 10^3/uL (0.0-0.8); MONO % 11.5 % (0.0-5.0); NEUTROPHILS % 73.7 % (36.0-66.0); PLATELET COUNT, AUTOMATED 255 10^3/uL (150-450); WHITE BLOOD COUNT 9.5 10^3/uL (4.0-10.0)
[2019-09-30 21:08] LABS: ALBUMIN 3.3 GM/DL (3.2-5.2); ALT/SGPT 22 U/L (12-78); BILIRUBIN,DIRECT 0.1 MG/DL (0.0-0.2); BILIRUBIN,TOTAL 0.3 MG/DL (0.2-1.0); BLOOD UREA NITROGEN 20 MG/DL (7-18); CALCIUM LEVEL 8.5 MG/DL (8.8-10.2); CARBON DIOXIDE LEVEL 36 MEQ/L (21-32); CHLORIDE LEVEL 98 MEQ/L (98-107); CK-MB VALUE MASS 1.5 NG/ML (<3.6); CPK CREATINE PHOSPHOKINASE 106 U/L (39-308); CREATININE FOR GFR 1.15 MG/DL (0.70-1.30); GLOMERULAR FILTRATION RATE > 60.0 (>42); GLUCOSE, FASTING 100 MG/DL (70-100); LIPASE 76 U/L (73-393); MB/CK RELATIVE INDEX 1.42 (< OR =4); NT-PRO BNP 222 PG/ML (<450); POTASSIUM SERUM 4.3 MEQ/L (3.5-5.1); SODIUM LEVEL 137 MEQ/L (136-145); TOTAL PROTEIN 6.3 GM/DL (6.4-8.2)
[2019-09-30 23:00] VITALS: BP 120/59
--- NOTE | 2019-10-01 00:19 | ECGEPIP ---
[facility] - ED Test Date: 2019-09-30 Pat Name: FIDEL TORRES Department: Room: - Gender: Male Social Service Assistant: gladys : 1945 Requested By: YEIMI POP Order Number: [id number] Reading MD: Mike Salazar Measurements Intervals [place] Rate: 92 P: 73 SC: 134 QRS: 122 QRSD: 144 T: 37 QT: 418 QTc: 519 Interpretive Statements ELECTRONIC VENTRICULAR PACEMAKER SIMILAR TO 01/15/19 Electronically Signed on 10-01-2019 0:19:17 EDT by Mike Salazar
--- NOTE | 2019-10-01 00:21 | ECGEPIP ---
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
--- NOTE | 2019-10-01 02:09 | REP ---
Clinical: Chest pain. Comparison: 01/15/2019. Findings: Mediastinum and cardiac silhouette are stable with cardiomegaly again noted. Pacemaker stable position. The lung lazaro demonstrate diffuse chronic interstitial changes with elements of COPD/emphysematous disease and bibasilar scarring. No obvious focal consolidation, effusion, or pneumothorax. Skeletal structures intact. Impression: Chronic stable changes. No acute cardiopulmonary process appreciated. Electronically Signed by Aaron Cadena MD 10/01/2019 02:00 A
== END 2019-09-30 23:33 | disposition home or self-care (01) ==
LOC: EDBD 19:38 → M ED 19:38
DX: K29.70 Gastritis, unspecified, without bleeding (principal); I51.9 Heart disease, unspecified; I27.81 Cor pulmonale (chronic); K21.9 Gastro-esophageal reflux disease without esophagitis; K52.9 Noninfective gastroenteritis and colitis, unspecified; N40.0 Benign prostatic hyperplasia without lower urinary tract symptoms; R06.02 Shortness of breath; Z99.81 Dependence on supplemental oxygen; F17.210 Nicotine dependence, cigarettes, uncomplicated; Z95.0 Presence of cardiac pacemaker; Z88.2 Allergy status to sulfonamides; Z88.5 Allergy status to narcotic agent; Z91.040 Latex allergy status; Z91.013 Allergy to seafood; Z79.899 Other long term (current) drug therapy; Z79.51 Long term (current) use of inhaled steroids; Z79.82 Long term (current) use of aspirin; Z79.1 Long term (current) use of non-steroidal anti-inflammatories (NSAID)

== ENCOUNTER → 2019-10-26 | Outpatient (CLI) | payer MEDICARE ==
[~2019-10-26] MED LIST changes: +FAMO40TA3 PO
[2019-10-26 13:01] LABS: CREATININE FOR GFR 1.29 MG/DL (0.70-1.30); GLOMERULAR FILTRATION RATE 57.6 (>42); POTASSIUM SERUM 5.3 MEQ/L (3.5-5.1)
== END ==
LOC: M PLALAB 09:06
PROVIDERS: ATTEND Physician Assistant
DX: I50.42 Chronic combined systolic (congestive) and diastolic (congestive) heart failure (principal)

== ENCOUNTER 2019-12-09 14:25 | Emergency (ER) | payer MEDICARE, MEDICAID ==
[~2019-12-09 14:25] MED LIST changes: -ASPI81TA85 PO; +ASPI81TA86 PO
[2019-12-09] MEDS ORDERED: ONDANSETRON 4MG/2ML VIAL ONE (18:17)
[2019-12-09] MEDS ORDERED: GASTROGRAFIN SOLUTION 30ML (Q9963) As Ordered ONE (18:17)
[2019-12-09] MEDS ORDERED: GASTROGRAFIN SOLUTION 30ML (Q9963) ONE (18:17)
[2019-12-09] MEDS ORDERED: ONDANSETRON 4MG/2ML VIAL As Ordered ONE (19:33)
[2019-12-09] MEDS ORDERED: ISOVUE-370 76% 100ML VIAL As Ordered ONE (19:42)
--- NOTE | 2020-01-21 17:14 | ECGEPIP ---
VENTRICULAR PACEMAKER SEE SCANNED DOWNTIME REPORT MTDD
[2020-01-24 10:52] LABS: INR 0.93; PROTHROMBIN TIME 12.6 SECONDS (12.5-14.3)
[2020-01-24 10:53] LABS: PARTIAL THROMBOPLASTIN TIME 28.6 SECONDS (24.2-38.5)
[2020-01-24 11:41] LABS: BASO # 0.1 10^3/uL (0.0-0.2); BASO % 0.4 % (0.0-1.0); EOS # 0.2 10^3/uL (0.0-0.5); EOS % 1.7 % (0.0-3.0); HEMATOCRIT 35.9 % (42.0-52.0); HEMOGLOBIN 11.3 g/dl (13.5-17.5); LYMPH # 1.1 10^3/uL (1.5-5.0); LYMPH % 9.8 % (24.0-44.0); MEAN CORPUSCULAR HEMOGLOBIN 28.8 pg (27.0-33.0); MEAN CORPUSCULAR HGB CONC 31.5 g/dl (32.0-36.5); MEAN CORPUSCULAR VOLUME 91.3 fl (80.0-96.0); MONO # 1.4 10^3/uL (0.0-0.8); MONO % 11.9 % (0.0-5.0); NEUTROPHILS # 8.5 10^3/uL (1.5-8.5); NEUTROPHILS % 74.4 % (36.0-66.0); PLATELET COUNT, AUTOMATED 189 10^3/uL (150-450); RED BLOOD COUNT 3.93 10^6/uL (4.30-6.10); WHITE BLOOD COUNT 11.5 10^3/uL (4.0-10.0)
[2020-03-04 13:40] LABS: BLOOD UREA NITROGEN 18 MG/DL (7-18); CALCIUM LEVEL 8.1 MG/DL (8.8-10.2); CARBON DIOXIDE LEVEL 37 MEQ/L (21-32); CHLORIDE LEVEL 97 MEQ/L (98-107); CK-MB VALUE MASS 2.6 NG/ML (<3.6); CPK CREATINE PHOSPHOKINASE 79 U/L (39-308); CREATININE FOR GFR 0.94 MG/DL (0.70-1.30); FREE T4 1.69 NG/DL (0.76-1.46); GLOMERULAR FILTRATION RATE > 60.0 (>42); GLUCOSE, FASTING 104 MG/DL (70-100); LIPASE 91 U/L (73-393); MB/CK RELATIVE INDEX 3.29 (< OR =4); POTASSIUM SERUM 3.8 MEQ/L (3.5-5.1); SODIUM LEVEL 138 MEQ/L (136-145); THYROID STIMULATING HORMONE 0.726 uIU/ML (0.358-3.740); TROPONIN I < 0.02 NG/ML (< 0.10)
== END 2019-12-09 18:46 | disposition home or self-care (01) ==
LOC: M ED 14:25
DX: K59.00 Constipation, unspecified (principal); N28.1 Cyst of kidney, acquired; D35.00 Benign neoplasm of unspecified adrenal gland; I50.9 Heart failure, unspecified; I11.0 Hypertensive heart disease with heart failure; J44.9 Chronic obstructive pulmonary disease, unspecified; E07.9 Disorder of thyroid, unspecified; K21.9 Gastro-esophageal reflux disease without esophagitis; R33.9 Retention of urine, unspecified; Z95.0 Presence of cardiac pacemaker; F17.200 Nicotine dependence, unspecified, uncomplicated; Z79.899 Other long term (current) drug therapy; Z79.51 Long term (current) use of inhaled steroids; Z79.82 Long term (current) use of aspirin; Z79.891 Long term (current) use of opiate analgesic; Z88.2 Allergy status to sulfonamides; Z91.040 Latex allergy status
CPT/HCPCS: 74177; 80048; 80076; 82550; 82553; 83690; 84439; 84443; 84484; 85025; 85610; 85730; 93005; 96374; 99284; J2405; Q9963; Q9967

== ENCOUNTER 2020-02-05 17:38 | Emergency (ER) | payer MEDICARE ==
[~2020-02-05] VITALS: Ht 170.2 cm; Wt 75.0 kg
[2020-02-05 18:26] LABS: INR 0.93; PROTHROMBIN TIME 12.7 SECONDS (12.5-14.3)
[2020-02-05 18:31] LABS: BASO # 0.1 10^3/uL (0.0-0.2); BASO % 0.8 % (0.0-1.0); EOS # 0.1 10^3/uL (0.0-0.5); EOS % 1.4 % (0.0-3.0); HEMATOCRIT 31.2 % (42.0-52.0); HEMOGLOBIN 9.7 g/dl (13.5-17.5); LYMPH # 0.9 10^3/uL (1.5-5.0); LYMPH % 10.9 % (24.0-44.0); MEAN CORPUSCULAR HGB CONC 31.1 g/dl (32.0-36.5); MEAN CORPUSCULAR VOLUME 89.9 fl (80.0-96.0); MONO # 0.9 10^3/uL (0.0-0.8); MONO % 11.9 % (0.0-5.0); NEUTROPHILS # 5.8 10^3/uL (1.5-8.5); NEUTROPHILS % 74.5 % (36.0-66.0); PLATELET COUNT, AUTOMATED 166 10^3/uL (150-450); RED BLOOD COUNT 3.47 10^6/uL (4.30-6.10); WHITE BLOOD COUNT 7.8 10^3/uL (4.0-10.0)
[2020-02-05 18:48] LABS: BLOOD UREA NITROGEN 20 MG/DL (7-18); CALCIUM LEVEL 8.8 MG/DL (8.8-10.2); CARBON DIOXIDE LEVEL 37 MEQ/L (21-32); CHLORIDE LEVEL 99 MEQ/L (98-107); CK-MB VALUE MASS 2.2 NG/ML (<3.6); CPK CREATINE PHOSPHOKINASE 132 U/L (39-308); CREATININE FOR GFR 1.12 MG/DL (0.70-1.30); GLOMERULAR FILTRATION RATE > 60.0 (>42); GLUCOSE, FASTING 102 MG/DL (70-100); MB/CK RELATIVE INDEX 1.67 (< OR =4); POTASSIUM SERUM 4.1 MEQ/L (3.5-5.1); SODIUM LEVEL 140 MEQ/L (136-145); TROPONIN I < 0.02 NG/ML (< 0.10)
[2020-02-05] MEDS ORDERED: AMIO200T3 PO (19:12)
[2020-02-05] MEDS ORDERED: AMIODARONE 200 MG TAB (PACERONE) PO ONE (19:15)
[2020-02-05 19:18] VITALS: BP 121/56
--- NOTE | 2020-02-05 20:42 | ECGEPIP ---
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
--- NOTE | 2020-02-05 21:03 | REPVR ---
PROCEDURE INFORMATION: Exam: XR Chest, 1 View Exam date and time: 02/05/2020 6:14 PM Age: 74 years old Clinical indication: Other: Chest pain TECHNIQUE: Imaging protocol: XR of the chest Views: 1 view. COMPARISON: CR Chest, 1 view 11/27/2019 7:36 PM FINDINGS: Tubes, catheters and devices: Cardiac pacer AICD demonstrated. Wires are intact. Lungs: Increased interstitial markings demonstrated bilaterally, stable in comparison to the prior study. No segmental or lobar infiltrates. Pleural space: Unremarkable. No pleural effusion. No pneumothorax. Heart/Mediastinum: Unremarkable. No cardiomegaly. Bones/joints: Osteoporosis. IMPRESSION: Increased interstitial markings demonstrated bilaterally, stable in comparison to the prior study. Electronically signed by: Hernandez Deng On 02/05/2020 21:03:10 PM
--- NOTE | 2020-02-08 07:21 | ED PDOC ---
Post-Departure Follow-Up cxr-p faxed to julienne reddy for fu Guy Amaro MD Feb 08, 2020 07:21
== END 2020-02-05 19:50 | disposition home or self-care (01) ==
LOC: M ED 17:38
DX: I47.2 Ventricular tachycardia (principal); Z95.810 Presence of automatic (implantable) cardiac defibrillator; I11.9 Hypertensive heart disease without heart failure; E78.5 Hyperlipidemia, unspecified; J44.9 Chronic obstructive pulmonary disease, unspecified; E03.9 Hypothyroidism, unspecified; F41.9 Anxiety disorder, unspecified; N40.0 Benign prostatic hyperplasia without lower urinary tract symptoms; M81.0 Age-related osteoporosis without current pathological fracture; F17.200 Nicotine dependence, unspecified, uncomplicated; Z88.2 Allergy status to sulfonamides; Z88.5 Allergy status to narcotic agent; Z91.040 Latex allergy status; Z91.013 Allergy to seafood; Z96.0 Presence of urogenital implants; Z79.899 Other long term (current) drug therapy; Z79.51 Long term (current) use of inhaled steroids; Z79.82 Long term (current) use of aspirin

== ENCOUNTER → 2020-03-23 | Outpatient (REF) | payer MEDICARE, MEDICAID ==
[~2020-03-23] MED LIST changes: +AMIO200T3 PO
[2020-03-23 18:25] LABS: CALCIUM LEVEL 8.8 MG/DL (8.8-10.2); CREATININE FOR GFR 1.27 MG/DL (0.70-1.30); GLOMERULAR FILTRATION RATE 58.5 (>42); MAGNESIUM LEVEL 2.3 MG/DL (1.8-2.4); POTASSIUM SERUM 4.2 MEQ/L (3.5-5.1)
== END ==
LOC: M LAB REF 17:20
PROVIDERS: ATTEND Physician Assistant
DX: I27.81 Cor pulmonale (chronic) (principal); I50.42 Chronic combined systolic (congestive) and diastolic (congestive) heart failure; I25.5 Ischemic cardiomyopathy; D72.829 Elevated white blood cell count, unspecified

== ENCOUNTER → 2020-03-23 | Outpatient (REF) | payer MEDICARE, MEDICAID ==
[2020-03-23 18:02] LABS: HEMATOCRIT 37.7 % (42.0-52.0); HEMOGLOBIN 11.7 g/dl (13.5-17.5); MEAN CORPUSCULAR VOLUME 90.2 fl (80.0-96.0); PLATELET COUNT, AUTOMATED 242 10^3/uL (150-450); RED BLOOD COUNT 4.18 10^6/uL (4.30-6.10); WHITE BLOOD COUNT 10.5 10^3/uL (4.0-10.0)
== END ==
LOC: M LAB REF 17:26
PROVIDERS: ATTEND Internal Medicine
DX: D72.829 Elevated white blood cell count, unspecified (principal)

== ENCOUNTER 2020-03-27 01:11 | Inpatient (IN) | payer MEDICARE, MEDICAID ==
[~2020-03-27] VITALS: Ht 170.2 cm; Wt 73.5 kg
[2020-03-27] VITALS (7 sets, daily range): BP systolic 104–130; BP diastolic 54–70
[~2020-03-27 01:11] MED LIST changes: +NICO1DIS12 TD; -NICO21DI31 TD; -SPIR-10; +SUCR1TAB56 PO
[2020-03-27] MEDS ORDERED: TORS20TA2 PO (01:36)
[2020-03-27 01:58] LABS: BASO # 0.1 10^3/uL (0.0-0.2); BASO % 0.8 % (0.0-1.0); EOS # 0.2 10^3/uL (0.0-0.5); EOS % 1.3 % (0.0-3.0); HEMATOCRIT 35.4 % (42.0-52.0); HEMOGLOBIN 10.8 g/dl (13.5-17.5); LYMPH # 1.1 10^3/uL (1.5-5.0); LYMPH % 8.8 % (24.0-44.0); MEAN CORPUSCULAR HEMOGLOBIN 27.4 pg (27.0-33.0); MEAN CORPUSCULAR HGB CONC 30.5 g/dl (32.0-36.5); MEAN CORPUSCULAR VOLUME 89.8 fl (80.0-96.0); MONO # 1.1 10^3/uL (0.0-0.8); MONO % 9.3 % (0.0-5.0); NEUTROPHILS # 9.4 10^3/uL (1.5-8.5); NEUTROPHILS % 78.8 % (36.0-66.0); PLATELET COUNT, AUTOMATED 234 10^3/uL (150-450); RED BLOOD COUNT 3.94 10^6/uL (4.30-6.10); WHITE BLOOD COUNT 11.9 10^3/uL (4.0-10.0)
[2020-03-27] MEDS ORDERED: ONDANSETRON 4MG/2ML VIAL IV ONE (02:00)
[2020-03-27] MEDS: MORPHINE 2 MG/ML 1ML VIAL (J2270) IV PRN ×2 (02:09→03:13)
[2020-03-27 02:17] LABS: INR 0.95; PROTHROMBIN TIME 12.9 SECONDS (12.5-14.3)
[2020-03-27 02:18] LABS: PARTIAL THROMBOPLASTIN TIME 28.5 SECONDS (24.2-38.5)
[2020-03-27 02:32] LABS: BLOOD UREA NITROGEN 22 MG/DL (7-18); CALCIUM LEVEL 8.4 MG/DL (8.8-10.2); CARBON DIOXIDE LEVEL 38 MEQ/L (21-32); CHLORIDE LEVEL 95 MEQ/L (98-107); CK-MB VALUE MASS 2.5 NG/ML (<3.6); CPK CREATINE PHOSPHOKINASE 126 U/L (39-308); ETHYL ALCOHOL (ETHANOL) < 0.003 % (0.000-0.010); GLUCOSE, FASTING 104 MG/DL (70-100); MB/CK RELATIVE INDEX 1.98 (< OR =4); POTASSIUM SERUM 3.9 MEQ/L (3.5-5.1); SODIUM LEVEL 135 MEQ/L (136-145); TROPONIN I < 0.02 NG/ML (< 0.10)
[2020-03-27] MEDS ORDERED: AMIO200T3 PO (02:40)
[2020-03-27] MEDS ORDERED: ECOT81TA5 PO (02:40)
--- NOTE | 2020-03-27 02:58 | REPVR ---
PROCEDURE INFORMATION: Exam: CT Head Without Contrast Exam date and time: 03/27/2020 2:21 AM Age: 75 years old Clinical indication: Injury or trauma; Fall; Blunt trauma (contusions or hematomas); Altered mental status/memory loss; Additional info: Fall, AMS TECHNIQUE: Imaging protocol: Computed tomography of the head without contrast. Radiation optimization: All CT scans at this facility use at least one of these dose optimization techniques: automated exposure control; mA and/or kV adjustment per patient size (includes targeted exams where dose is matched to clinical indication); or iterative reconstruction. COMPARISON: CT Head without contrast 09/06/2017 1:45 PM FINDINGS: Brain: Mild cerebral volume loss. No hemorrhage. Unremarkable white matter. No mass effect. Cerebral ventricles: No ventriculomegaly. Bones/joints: Unremarkable. No acute fracture. Paranasal sinuses: Visualized sinuses are unremarkable. No fluid levels. Mastoid air cells: Visualized mastoid air cells are well aerated. Soft tissues: Unremarkable. IMPRESSION: No acute intracranial abnormality. Electronically signed by: Luis Lambert On 03/27/2020 02:58:29 AM
--- NOTE | 2020-03-27 03:02 | REPVR ---
PROCEDURE INFORMATION: Exam: CT Cervical Spine Without Contrast Exam date and time: 03/27/2020 2:21 AM Age: 75 years old Clinical indication: Injury or trauma; Fall; Blunt trauma; Additional info: Fall, AMS TECHNIQUE: Imaging protocol: Computed tomography images of the cervical spine without contrast. Radiation optimization: All CT scans at this facility use at least one of these dose optimization techniques: automated exposure control; mA and/or kV adjustment per patient size (includes targeted exams where dose is matched to clinical indication); or iterative reconstruction. COMPARISON: No relevant prior studies available. FINDINGS: Bones/joints: Grade 1 anterolisthesis at C4-C5 and C7-T1. No acute fracture or bone lesions. Discs/Spinal canal/Neural foramina: Advanced discogenic and facet degenerative changes throughout the cervical spine. No spinal stenosis. Soft tissues: Unremarkable. Lungs: Changes of emphysema in the lung apices. IMPRESSION: 1. No fracture. 2. Advanced degenerative spondylosis as above. Electronically signed by: Luis Lambert On 03/27/2020 03:02:26 AM
[2020-03-27] MEDS ORDERED: ALEV220T22 PO (03:03)
--- NOTE | 2020-03-27 03:09 | REPVR ---
PROCEDURE INFORMATION: Exam: XR Chest, 1 View Exam date and time: 03/27/2020 2:52 AM Age: 75 years old Clinical indication: Other: Fall, confusion TECHNIQUE: Imaging protocol: XR of the chest Views: 1 view. COMPARISON: CR PORTABLE CHEST X-RAY 02/05/2020 6:10 PM FINDINGS: Tubes, catheters and devices: Pacemaker and leads are unchanged. Lungs: Patchy airspace opacities in both lung bases. Mild nonspecific interstitial lung changes. Pleural space: No pleural effusion. No pneumothorax. Heart/Mediastinum: Stable cardiomegaly. Bones/joints: Unremarkable. IMPRESSION: 1. Patchy bibasilar opacities may be due to atelectasis or developing pneumonia. 2. Table cardiomegaly. Electronically signed by: Luis Lambert On 03/27/2020 03:10:03 AM
--- NOTE | 2020-03-27 03:14 | REPVR ---
PROCEDURE INFORMATION: Exam: XR Pelvis Exam date and time: 03/27/2020 2:52 AM Age: 75 years old Clinical indication: Other: Trauma TECHNIQUE: Imaging protocol: XR pelvis. Views: 3 or more views. COMPARISON: CT ABD PELVIS W/O CONTRAST 04/16/2017 2:33 PM FINDINGS: Bones/joints: There is a comminuted impacted intertrochanteric fracture of the right proximal femur. Femoral head remains in the right acetabulum. No other fractures are seen. Advanced degenerative changes in the spine and pelvis. Soft tissues: Unremarkable. IMPRESSION: Comminuted intertrochanteric fracture of the right femur. Electronically signed by: Luis Lambert On 03/27/2020 03:14:10 AM
--- NOTE | 2020-03-27 03:16 | REPVR ---
PROCEDURE INFORMATION: Exam: XR Right Femur Exam date and time: 03/27/2020 2:52 AM Age: 75 years old Clinical indication: Other: Right hip/thigh pain, fall TECHNIQUE: Imaging protocol: XR Right femur. Views: 2 views. COMPARISON: No relevant prior studies available. FINDINGS: Bones/joints: Impacted comminuted right intertrochanteric femur fracture. Femoral head remains in the acetabulum. Femoral head appears intact. Degenerative changes in the lumbar spine and pelvis. Distal femur is intact. Soft tissues: Soft tissue swelling at the hip. IMPRESSION: Proximal intertrochanteric fracture of the proximal right femur. Electronically signed by: Luis Lambert On 03/27/2020 03:15:49 AM
[2020-03-27] MEDS ORDERED: MORPHINE 2 MG/ML 1ML VIAL (J2270) IV PRN ×3 (03:45→13:00)
[2020-03-27] MEDS ORDERED: cefTRIAXone SOD 1 GM in D5W MINI-BAG PLUS 50 ML IV ONE (03:45)
[2020-03-27] MEDS ORDERED: LR 1,000 ML IV SCH ×2 (03:45→12:15)
[2020-03-27] MEDS ORDERED: ACETAMINOPHEN TAB 650MG DOSE (2X325MG) PO PRN (03:45)
[2020-03-27] MEDS ORDERED: MAALOX 30 ML SUSP *UDC PO PRN (03:45)
[2020-03-27] MEDS ORDERED: MOM 30ML SUSPENSION UDC PO PRN (03:45)
[2020-03-27 04:05] LABS: AMPHETAMINES LEVEL URINE NEGATIVE (NEGATIVE); BARBITURATES URINE NEGATIVE (NEGATIVE); BENZODIAZEPINES URINE NEGATIVE (NEGATIVE); CANNABINOIDS URINE NEGATIVE (NEGATIVE); COCAINE METABOLITE URINE NEGATIVE (NEGATIVE); METHADONE URINE NEGATIVE (NEGATIVE); OPIATES URINE POSITIVE (NEGATIVE); PHENCYCLIDINE URINE NEGATIVE (NEGATIVE)
[2020-03-27 04:17] LABS: NT-PRO BNP 195 PG/ML (<450)
[2020-03-27] MEDS ORDERED: methylPREDNISolone 125MG 2ML VIAL IV STA (04:21)
[2020-03-27] MEDS ORDERED: ALBUTEROL SULFATE 2.5 MG/0.5 ML INH NEB SOLN NEB PRN (04:30)
--- NOTE | 2020-03-27 05:12 | HPEPDOC ---
[facility] Medical History & Physical Date of Admission Mar 27, 2020 Date of Service: Mar 27, 2020 Other Provider Carmenza Santa [facility] Attending Physician: ZOYA ROGERS MD History and Physical TIME OF SERVICE: 400am CHIEF COMPLAINT: fall HISTORY OF PRESENT ILLNESS: This 75-year-old gentleman reports falling while trying to sit down down on chair yesterday evening at about 1030PM. As a result of missing the chair he landed on the ground and hurt his right hip. He denied having chest pain, change in his shortness of breath, dizziness, fevers or chills prior to the fall. He added that he has been feeling very tired over the few several days. Prior to the fall mentioned above, he fell asleep while sitting in a chair and landed on his face, but did not hurt himself. He also added that his cough which is usually productive, has become dry and he feels like he is unable to get anything up. He attributes this to feeling like his chest is tight. He denies having a runny nose and also denies having any sick contacts REVIEW OF SYSTEMS: 12 point review of systems negative except as listed in HPI PAST MEDICAL/ SURGICAL HISTORY: CAD BPH COPD Chronic O2 dependent respiratory failure 3 L CKD 3 HFpEF Osteoporosis with a history of T10 vertebral fracture Pulmonary hypertension / Cor Pulmonale Chronic back pain Dementia BPH / chronic in dwelling [place] Hypothyroidism Chronic Anemia Murphy's esophagus / GERD Diverticulosis Debility walks with a cane Hx of Vegetations on ICD leads requiring ICD resection Biventricular ICD PMR Right inguinal hernia repair SOCIAL HISTORY: He smokes Lives w a room mate FAMILY HISTORY: Coronary artery disease - father ALLERGIES: Please see below. HOME MEDICATIONS: Please see below. PHYSICAL EXAMINATION: VITAL SIGNS: Please see below. GEN: well nourished / well developed/ NAD INTEGUMENT: he doesn't have facial plethora HEENT:he doesn't have pursed lip breathing / NC in place CVS: RRR/ pacer palpable at left upper chest/ + lower extremity edema LUNGS: he doesn't have nasal flaring / he is able to speak full sentences without stopping to take a breath / he is coughing / he is not using accessory muscles / there is decreased respiratory expansion/ breath sounds are diminished MSK/EXTREMITIES:NCAT / right hip flexed and externally rotated NEURO: CN 2-12 are grossly intact / speech is not dysarthric PSYCH: alert and oriented to person place and time/ able to understand and follow all commands LABORATORY DATA: 03/27/20 01:39 03/27/20 01:39: Immature Granulocyte % (Auto) 1.0, Neutrophils (%) (Auto) 78.8H, Lymphocytes (%) (Auto) 8.8L, Monocytes (%) (Auto) 9.3H, Eosinophils (%) (Auto) 1.3, Basophils (%) (Auto) 0.8, Neutrophils # (Auto) 9.4H, Lymphocytes # (Auto) 1.1L, Monocytes # (Auto) 1.1H, Eosinophils # (Auto) 0.2, Basophils # (Auto) 0.1, Nucleated Red Blood Cells % (auto) 0.0, Anion Gap 2L, Glomerular Filtration Rate 57.0, Calcium Level 8.4L, Total Creatine Kinase 126, Creatine Kinase MB 2.5, Creatine Kinase MB Relative Index 1.98, Troponin I < 0.02, OD-Oky-I-Type Natriuretic Peptide 195, Ethyl Alcohol Level < 0.003 03/27/20 02:07: Prothrombin Time 12.9, Prothromb Time International Ratio 0.95, Activated Partial Thromboplast Time 28.5, Coronavirus (COVID-19)(PCR) NEGATIVE 03/27/20 03:24: Urine Color YELLOW, Urine Appearance CLOUDYH, Urine pH 5.0, Urine Specific [place] 1.008, Urine Protein NEGATIVE, Urine Glucose (UA) NEGATIVE, Urine Ketones NEGATIVE, Urine Blood NEGATIVE, Urine Nitrite POSITIVEH, Urine Bilirubin NEGATIVE, Urine Urobilinogen 0.2, Urine Leukocyte Esterase 2+H, Urine WBC (Auto) 27H, Urine RBC (Auto) 2, Urine Hyaline Casts (Auto) 0, Urine Bacteria (Auto) 2+H, Urine Squamous Epithelial Cells 0, Urine Mucus (Auto) SMALL, Urine Sperm (Auto) , Urine Opiates Screen POSITIVEH, Urine Methadone Screen NEGATIVE, Urine Barbiturates Screen NEGATIVE, Urine Phencyclidine Screen NEGATIVE, Urine Amphetamines Screen NEGATIVE, Urine Benzodiazepines Screen NEGATIVE, Urine Cocaine Metabolite Screen NEGATIVE, Urine Cannabinoids Screen NEGATIVE IMAGING: CT head "No acute intracranial abnormality." Femur Fx "Proximal intertrochanteric fracture of the proximal right femur." CT cervical spine "1. No fracture. 2. Advanced degenerative spondylosis as above." Chest xray "1. Patchy bibasilar opacities may be due to atelectasis or developing pneumonia. 2. Table cardiomegaly." Pelvis xray "IMPRESSION: Comminuted intertrochanteric fracture of the right femur." MICROBIOLOGY: Please see below. ASSESSMENT: Mr. Murphy is a 75 yr old smoker w a hx of CAD, BPH, COPD, Chronic O2 dependent respiratory failure, CKD 3, HFpEF, Osteoporosis, Pulmonary HTN / Cor Pulmonale, Hypothyroidism, Chronic Anemia, Murphy's esophagus / GERD, Chronic back pain, Demenia, BPH and unsteady gait who presented to the hospital for evaluation after missing his chair while trying to sit down and landing on his right side he will be admitted for management of R femur fx, and mild acute COPD. PLAN: 1. Mechanical Fall vs Syncope ? reported that the patient had a syncopal event, but the patient attributed his fall to missing his computer chair while trying to sit down; at his baseline he already has an unsteady gait and is supposed to ambulate with a cane. He also takes meds that predispose him to falling and solmonelnce (famotidine and NORCO) CT of the head was unrevealing EKG showed V paced rhythm with a rate fo 75 and the troponin was wnl Plan: Admit to medical floor / NPO, IVF / Ortho consult / pain control w Morphine 2. Right Femur fx 2/2 Osteoporosis He already has a hx of vertebral fx Plan: calcium with vitamin D / f/u w PCP for work up to r/o secondary causes of Osteoporosis and start anti-resorptive therapy 3. Perioperative evaluation Perio-operative evaluation = 2 points = class 2 risk Plan: f/u pro-BNP if it is >300 he will need to be put on telemetry and we will need to check trops daily, if it is less than 300, he will not need additional testing prior to proceeding with surgery / because he smokes we will offer him smoking cessation education / we will hold ASA & Naproxen 4. Mild Acute COPD Likely 2/2 smoking Chest x-ray showed bibasilar atelectasis vs infiltrates but the patient doesn't have a change in his chronic dyspnea, fever, chills or SIRS criteria POC ABG showed pH of 7.39, PCO2 of 57.7 and PO2 of 82. I suspect he has chronic hypercapnia bc his CO2 on his chemistries is chronically elevated. BAP-65 Score to predict mortality in acute COPD = class 2 risk = routine management of COPD Plan: supplemental O2 / continuous pulse oximetry / aspiration precautions / noelle umedrol x1 now & switch to PO Prednisone tomorrow / Dunebs Q6H, Levalbuterol Q1HP / c/ w Spiriva / he received ceftriaxone for possible PNA in the ER but I will hold off additional abx for now because he doesn't have SIRS criteria / the day time team may consider ordering 2 view chest xray or CT of the chest to confirm whether he really has PNA / when he is ready for discharge he should be offered influenza vaccine 5. Chronic O2 dependent respiratory failure Plan: c/w supplemental O2 3L baseline 6. Somnolence Plan: dc famotidine which tends to cause dizziness, somnolence and arrhythmias e specially in elderly patients (not sure why he is on this med along with a PPI) 7. Acute on Chronic Anemia His Hg is slightly below his baseline of 11.7 Plan: f/u iron studies B12 and folate 8. Asymptomatic Bacteruria / Chronic colonization of chronic [place] Plan: no need to treat 9. CAD Plan: Aspirin, nitroglycerine 10. BPH Plan: Tamsulosin, finasteride 11. CKD 3 at baseline 12. HFpEF / Pulmonary hypertension / Cor Pulmonale Plan: torsemide, spironolactone 13. Chronic back pain Plan: dc PO Naproxen / Acetaminophen & Flector patch / NORCO is on hold while he is receiving IV morphine 14. Dementia Plan: PFS consult to assess his living situation and determine if he needs SNF placement 15. Hypothyroidism TSH Dec 2019 0.726 Plan: levothyroxine 16. GERD Murphy's Plan: PPI and Carafate DVT PROPHYLAXIS: SCDs DISPOSITION: ARU vs [facility]TER vs SNF after more than 2 midnight's stay Home Medications Scheduled Aspirin (Ecotrin) 81 Mg Tablet.dr, 81 MG PO DAILY Atorvastatin Calcium (Atorvastatin Calcium) 80 Mg Tab, 80 MG PO QHS Esomeprazole Magnesium (Nexium) 40 Mg Cap, 40 MG PO BID Famotidine (Famotidine) 40 Mg Tablet, 40 MG PO QHS Finasteride (Finasteride) 5 Mg Tablet, 5 MG PO DAILY Fluticasone Propion/Salmeterol (Advair Hfa 230-21 Mcg Inhaler) 1 Aer Aer, 2 PUFF INH BID Levothyroxine Sodium (Levothyroxine Sodium) 75 Mcg Tab, 75 MCG PO QAM Spironolactone (Spironolactone) 25 Mg Tablet, 25 MG PO DAILY Sucralfate (Sucralfate) 1 Gm Tablet, 1 GRAM PO BID Tamsulosin HCl (Flomax) 0.4 Mg Cap, 0.4 MG PO DAILY Tiotropium [place] (Spiriva) 18 Mcg Cap, 1 PUFFS INH DAILY Torsemide (Torsemide) 20 Mg Tablet, 80 MG PO BID Scheduled PRN Albuterol Sulf (Albuterol Sulfate) 2.5 Mg/3 Ml Nebu, 2.5 MG INH Q4H PRN for SHORTNESS OF BREATH Albuterol Sulfate (Proair Hfa) 108 Mcg/Act Aer, 2 PUFF INH Q4H PRN for SHORTNESS OF BREATH Hydrocodone/Acetaminophen (Hydrocodone-Acetamin 5-325 mg) 1 Each Tablet, 1 TAB PO TIDP PRN for pain Naproxen Sodium (Aleve) 220 Mg Tablet, 220 MG PO BID PRN for PAIN Nitroglycerin (Nitrostat) 0.4 Mg Subl, 0.4 MG SL NITRO PRN for CHEST PAIN Allergies Coded Allergies: Sulfa (Sulfonamide Antibiotics) (Verified Allergy, Mild, RASH, 09/30/19) latex (Verified Allergy, Mild, rash, 09/30/19) shellfish derived (Verified Allergy, Mild, ITCHING, 09/30/19) hydrocodone (Verified Adverse Reaction, Mild, 09/30/19) confusion A-FIB/CHADSVASC A-FIB History Current/History of A-Fib/PAF?: No Current PO Anticoag Therapy: No OZYA ROGERS MD Mar 27, 2020 05:12
[2020-03-27] MEDS ORDERED: NITROGLYCERIN 0.4 MG SUBL TABLET SL PRN (05:30)
[2020-03-27] MEDS ORDERED: LEVALBUTEROL 1.25 MG/0.5 ML CONCENTRATE NEB INH PRN ×2 (05:30→20:15)
[2020-03-27] MEDS ORDERED: ceFAZolin SOD 2 GM in IV 1 EA IV SCH (06:00)
[2020-03-27] MEDS: PANTOPRAZOLE 40MG TAB (PROTONIX) PO SCH ×2 (06:19→21:41)
--- NOTE | 2020-03-27 06:42 | ECGEPIP ---
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
[2020-03-27] MEDS: TIOTROPIUM INHALER/CAPSULE (SPIRIVA) INH SCH (07:26)
[2020-03-27] MEDS: IPRATROPIUM 0.5MG/ALBUTEROL 2.5MG INH SOL UD 3ML (DUONEB) NEB SCH ×2 (07:26→13:44)
[2020-03-27 07:31] LABS: FERRITIN 29 NG/ML (26-388); IRON (FE) 40 UG/DL (65-175); PERCENT SATURATION 12.5 % (19.7-50.0); TOTAL IRON BINDING CAPACITY 320 UG/DL (250-450); TROPONIN I < 0.02 NG/ML (< 0.10)
[2020-03-27] MEDS ORDERED: NS 1,000 ML IV SCH (08:00)
[2020-03-27 08:40] LABS: HEMATOCRIT 35.3 % (42.0-52.0); HEMOGLOBIN 10.9 g/dl (13.5-17.5); MEAN CORPUSCULAR HEMOGLOBIN 27.9 pg (27.0-33.0); MEAN CORPUSCULAR HGB CONC 30.9 g/dl (32.0-36.5); MEAN CORPUSCULAR VOLUME 90.3 fl (80.0-96.0); PLATELET COUNT, AUTOMATED 221 10^3/uL (150-450); RED BLOOD COUNT 3.91 10^6/uL (4.30-6.10); WHITE BLOOD COUNT 16.1 10^3/uL (4.0-10.0)
[2020-03-27] MEDS: TAMSULOSIN 0.4 MG CAP PO SCH (08:53)
[2020-03-27] MEDS: FINASTERIDE 5 MG TAB PO SCH (08:53)
[2020-03-27] MEDS: LEVOTHYROXINE 75MCG TABLET (0.075MG) PO SCH (08:53)
[2020-03-27] MEDS: TORSEMIDE 20 MG TAB PO SCH ×2 (08:53→16:25)
[2020-03-27] MEDS: SUCRALFATE 1 GM TAB PO SCH ×2 (08:53→21:41)
[2020-03-27] MEDS: SPIRONOLACTONE 25 MG TAB PO SCH (08:53)
[2020-03-27] MEDS: predniSONE 20 MG TAB PO SCH (08:53)
[2020-03-27] MEDS: DICLOFENAC EPOLAMINE 1.3 % PATCH TOP SCH ×2 (08:54→21:40)
[2020-03-27] MEDS ORDERED: PANTOPRAZOLE 40MG TAB (PROTONIX) PO SCH (09:00)
[2020-03-27] MEDS ORDERED: TORSEMIDE 20 MG TAB PO SCH (09:00)
[2020-03-27] MEDS: METAMUCIL (PSYLLIUM) PACKET PO SCH (09:00)
[2020-03-27 09:05] LABS: ALBUMIN 3.4 GM/DL (3.2-5.2); ALT/SGPT 18 U/L (12-78); BILIRUBIN,TOTAL 0.4 MG/DL (0.2-1.0); BLOOD UREA NITROGEN 22 MG/DL (7-18); CALCIUM LEVEL 8.3 MG/DL (8.8-10.2); CARBON DIOXIDE LEVEL 36 MEQ/L (21-32); CHLORIDE LEVEL 97 MEQ/L (98-107); CREATININE FOR GFR 1.16 MG/DL (0.70-1.30); GLOMERULAR FILTRATION RATE > 60.0 (>42); GLUCOSE, FASTING 123 MG/DL (70-100); POTASSIUM SERUM 3.8 MEQ/L (3.5-5.1); SODIUM LEVEL 136 MEQ/L (136-145); TOTAL PROTEIN 6.4 GM/DL (6.4-8.2)
[2020-03-27] MEDS ORDERED: LIDOCAINE W/EPINEPHRINE 1% 20ML VIAL As Ordered ONE (09:53)
[2020-03-27] MEDS ORDERED: ceFAZolin 2 GM/D5W 50 ML IV BAG (J0690 PER 500MG) As Ordered ONE (09:53)
[2020-03-27] MEDS ORDERED: ceFAZolin 1GM VIAL (J0690 PER 500MG) As Ordered ONE (09:54)
[2020-03-27] MEDS ORDERED: MIDAZOLAM INJ 2MG/2ML VIAL (J2250 PER 1MG) As Ordered ONE (10:36)
[2020-03-27] MEDS ORDERED: propofoL 200 MG/20 ML VIAL As Ordered ONE (10:36)
[2020-03-27] MEDS ORDERED: LIDOCAINE 2% 100MG/5ML SDV (FOR ANES.) As Ordered ONE (10:36)
[2020-03-27] MEDS ORDERED: BUPIVACAINE HCL 0.5% 30 ML VIAL As Ordered ONE (10:36)
[2020-03-27] MEDS ORDERED: fentaNYL 100 MCG/2 ML INJECTION (J3010) As Ordered ONE (10:36)
[2020-03-27] MEDS ORDERED: KETAMINE HCL 200 MG/20 ML VIAL As Ordered ONE (10:36)
[2020-03-27] MEDS ORDERED: ePHEDrine SULFATE 25 MG/5 ML(5MG/ML) SYRINGE As Ordered ONE (10:54)
--- NOTE | 2020-03-27 11:48 | REP ---
INDICATION: RIGHT IM NAIL COMPARISON: None. TECHNIQUE: Intraoperative fluoroscopic imaging using portable C-arm technique. FINDINGS: Patient is status post open reduction and satisfactory fixation for right hip fracture. Total fluoroscopic time 1 minutes 56 seconds. IMPRESSION: Satisfactory right hip pending. <Electronically signed by Aaron Cadena > 03/27/20 1144
[2020-03-27] MEDS ORDERED: ONDANSETRON 4MG/2ML VIAL IV PRN ×2 (12:15→13:00)
[2020-03-27] MEDS ORDERED: fentaNYL 100 MCG/2 ML INJECTION (J3010) IV PRN (12:15)
[2020-03-27] MEDS ORDERED: ALBUTEROL SULFATE 2.5 MG/0.5 ML INH NEB SOLN INH ONE (13:15)
[2020-03-27] MEDS: ceFAZolin SOD 2 GM in IV 1 EA IV SCH ×2 (16:25→21:41)
[2020-03-27] MEDS: PERCOCET 5MG/325MG TAB PO PRN ×2 (16:27→21:41)
[2020-03-27] MEDS: ALBUTEROL SULFATE 2.5 MG/0.5 ML INH NEB SOLN NEB SCH ×2 (20:00→20:13)
[2020-03-27] MEDS: ADVAIR HFA 230/21MCG INHALER INH SCH (20:09)
[2020-03-28 02:00] VITALS: BP 112/62
[2020-03-28] MEDS: ALBUTEROL SULFATE 2.5 MG/0.5 ML INH NEB SOLN NEB SCH ×2 (03:32→07:50)
[2020-03-28] MEDS: PERCOCET 5MG/325MG TAB PO PRN ×4 (04:36→21:17)
[2020-03-28 06:00] VITALS: BP 106/64
[2020-03-28 07:21] LABS: HEMATOCRIT 29.5 % (42.0-52.0); HEMOGLOBIN 9.1 g/dl (13.5-17.5); MEAN CORPUSCULAR HEMOGLOBIN 27.7 pg (27.0-33.0); MEAN CORPUSCULAR HGB CONC 30.8 g/dl (32.0-36.5); MEAN CORPUSCULAR VOLUME 89.9 fl (80.0-96.0); PLATELET COUNT, AUTOMATED 174 10^3/uL (150-450); RED BLOOD COUNT 3.28 10^6/uL (4.30-6.10); WHITE BLOOD COUNT 15.3 10^3/uL (4.0-10.0)
[2020-03-28 07:40] LABS: BLOOD UREA NITROGEN 23 MG/DL (7-18); CALCIUM LEVEL 8.3 MG/DL (8.8-10.2); CARBON DIOXIDE LEVEL 34 MEQ/L (21-32); CHLORIDE LEVEL 97 MEQ/L (98-107); CREATININE FOR GFR 1.19 MG/DL (0.70-1.30); GLOMERULAR FILTRATION RATE > 60.0 (>42); GLUCOSE, FASTING 110 MG/DL (70-100); POTASSIUM SERUM 4.1 MEQ/L (3.5-5.1); SODIUM LEVEL 135 MEQ/L (136-145)
[2020-03-28] MEDS: TIOTROPIUM INHALER/CAPSULE (SPIRIVA) INH SCH (07:51)
[2020-03-28] MEDS: ADVAIR HFA 230/21MCG INHALER INH SCH ×2 (07:51→19:29)
[2020-03-28 08:43] LABS: NT-PRO BNP 1018 PG/ML (<450); TROPONIN I < 0.02 NG/ML (< 0.10)
[2020-03-28 09:00] VITALS: O2SAT 88
--- NOTE | 2020-03-28 10:14 | RO ---
DATE OF OPERATION: 03/27/2020 PREOPERATIVE DIAGNOSIS: Right hip intertrochanteric fracture. POSTOPERATIVE DIAGNOSIS: Right hip intertrochanteric fracture. PROCEDURE: Closed reduction and fixation of hip fracture with cephalomedullary implant/TFN nail. SURGEON: Octavio Tai M.D. ANESTHESIA: carolina Montes. ESTIMATED BLOOD LOSS: Less than 50 ml, replaced with Crystalloid. COMPLICATIONS: None. COMPONENTS USED: Includes a Synthes TFN nail, 380 ml length, appropriate cephalic blade, appropriate locking screw. INDICATIONS: Consent repeated in detail with the patient, also talked to the patient's power of attorney recruiter; talked about the surgery, risks, benefits, alteratives such as doing nothing. They want to proceed. OPERATIVE COURSE: Identified in the holding area, site and side verified and brought to the operating room. Positioned on the fracture table for exposure of the right hip. Production maneuvers were implemented. Fluoroscopic images were obtained reflecting nearly anatomic reduction. Next, time-out was accomplished. The patient was sterilely prepped and draped in the usual fashion. Next, an incision made over the proximal aspect of greater trochanter developed down, the abductor mechanism split, guidewire passed through greater trochanter to just inferior to lesser trochanter under fluoroscopic visualization in the AP and lateral plane, adjustments were made. Guidewire was exchanged for a long guidewire. The step drill was utilized the greater trochanter and then the guidewire exchange was accomplished. Next, I then utilized the reamers through a size 12.5 reamer to ream the femoral canal. Next, we then obtained the femoral nail component, implanted the facet femoral nail component. Next, targeting arm was assembled, guidewire was removed. Incision was made in the lateral femur to allow placement of the cephalic component. Next, the guide was advanced to the lateral femur. The guidewire was drilled into the femoral head. Its position verified with AP and lateral fluoroscopy. Cephalic blade length measured, guidewire over drilled to the appropriate length with cephalic blade and then tamped into place. Next, once this was accomplished, cephalic blade was locked and then the lock was backed off turn to allow for settling. Next, guidewire and targeting arm were then removed and disassembled. Next, distal locking hole was localized, perfect circles were obtained fluoroscopically. I drilled the distal locking screw in the oval hole and placed the appropriate length screw; its positioned verified AP and lateral. Next, all wounds were irrigated, closed with interrupted stitch, Prineo dressing applied. The patient then was able to be removed from the fracture table, moved to the recover room in good condition. Final fluoroscopic images reflected excellent alignment. SHAMA
--- NOTE | 2020-03-28 10:15 | REP ---
INDICATION: incr SOB, hypoxia COMPARISON: 03/27/2020 as well as other prior exams. TECHNIQUE: PA/Lateral FINDINGS: Lungs: There is diffuse interstitial fibrosis with bibasilar fibro atelectasis which is chronic in nature. There is mild increased left retrocardiac opacity which may represent mild superimposed atelectasis or infiltrate. Heart: Upper limits of normal in size. Mediastinum: There is calcification and ectasia of the thoracic aorta. The mediastinal silhouette is unchanged. Pleural angles: There is mild blunting of the left costophrenic angle which appears chronic in nature likely representing pleural thickening.. Bones and soft tissues: There are degenerative changes of the spine. Left 2 lead pacemaker is unchanged. IMPRESSION: Chronic changes. Mild superimposed atelectasis/infiltrate left lung base in the retrocardiac region. <Electronically signed by David Jameson > 03/28/20 1011
[2020-03-28 10:23] LABS: FOLATE 19.3 NG/ML (>5.4); VITAMIN B12 LEVEL 316 PG/ML (247-911)
[2020-03-28] MEDS: FINASTERIDE 5 MG TAB PO SCH (10:29)
[2020-03-28] MEDS: SUCRALFATE 1 GM TAB PO SCH ×2 (10:29→21:17)
[2020-03-28] MEDS: LEVOTHYROXINE 75MCG TABLET (0.075MG) PO SCH (10:31)
[2020-03-28] MEDS: predniSONE 20 MG TAB PO SCH (10:31)
[2020-03-28] MEDS: DICLOFENAC EPOLAMINE 1.3 % PATCH TOP SCH ×3 (10:31→21:00)
[2020-03-28] MEDS: ASPIRIN 81 MG ENTERIC TAB PO SCH ×2 (10:32→21:17)
[2020-03-28] MEDS: SPIRONOLACTONE 25 MG TAB PO SCH (10:36)
[2020-03-28] MEDS: TORSEMIDE 20 MG TAB PO SCH ×2 (10:36→17:18)
[2020-03-28] MEDS: METAMUCIL (PSYLLIUM) PACKET PO SCH (10:36)
[2020-03-28] MEDS: TAMSULOSIN 0.4 MG CAP PO SCH (10:36)
[2020-03-28] MEDS: PANTOPRAZOLE 40MG TAB (PROTONIX) PO SCH ×2 (10:39→21:17)
[2020-03-28] MEDS ORDERED: FUROSEMIDE 40MG/4ML VIAL (J1940) IV SCH (10:45)
[2020-03-28] MEDS: methylPREDNISolone 125MG 2ML VIAL IV SCH ×2 (11:06→23:33)
[2020-03-28] MEDS: IPRATROPIUM 0.5MG/ALBUTEROL 2.5MG INH SOL UD 3ML (DUONEB) NEB SCH ×3 (11:14→19:29)
--- NOTE | 2020-03-28 12:06 | CR ---
DATE OF CONSULTATION: 03/27/2020 REASON FOR CONSULTATION: I was asked to see the patient to evaluate a right hip fracture. CHIEF COMPLAINT: Right hip pain. HISTORY OF PRESENT ILLNESS: A 75-year-old gentleman who was trying to sit down in a chair and fell at home. He has been having some problems with confusion. He has a power of director long term care, and he does sign his own consents according to the power of director long term care. He denied chest pain or dizziness prior to the fall. Complains of significant hip pain. Indicates he wants to have it fixed. He wants to know when he can walk again. REVIEW OF SYSTEMS: 12-point review of systems negative except as listed in HPI: of note he had been complaining of dry cough. PAST MEDICAL HISTORY: Includes coronary artery disease, prostate hypertrophy, COPD on chronic oxygen 3 liters, has osteoporosis with history of other fractures, chronic back pain, pulmonary hypertension, dementia, hypothyroidism, anemia, Barretts esophagus, diverticulosis, usually uses assistive device at least a cane for ambulation, biventricular ICD placement. SOCIAL HISTORY: Continues to smoke. Lives with a friend. FAMILY HISTORY: Noncontributory. ALLERGIES: Sulfa produces a rash. Hydrocodone produces itching. MEDICATIONS: Medication list by hospitalist reviewed. CLINICAL EXAMINATION: He is alert. He seems to be oriented. He is reasonably cooperative. He is easily confused. He understands the situation and where he is. He is not short of breath. Abdomen is nontender, non-distended. Skin is healthy; face, upper extremities minimal trophic changes. Lower extremities; no effusion at the knees. Right extremity, shortened right hip. LABORATORY DATA: Hematocrit 35. Creatinine 1.3. Blood sugar 104. IMAGING STUDIES: CT head interpreted as no acute abnormality. Femur; intertrochanteric fracture of the femur. CT cervical spine; degenerative change. IMPRESSION: Right hip fracture after mechanical fall in a medically frail individual with COPD and many other medical comorbidities including osteoporosis. He is a previous community ambulator. RECOMMENDATIONS: My recommendations include closed reduction fixation of hip fracture with intramedullary device. I reviewed the consent with the patient as well as his power of director long term care. They both agree to proceed. Contacted the OR and coordinated with the Operating Room, and coordinated with nursing. For further details, please refer to the medical record. SHAMA
[2020-03-28] MEDS: LevoFLOXacin IV 750 MG in IV 1 EA IV SCH (13:31)
[2020-03-28 14:00] VITALS: BP 103/85
--- NOTE | 2020-03-28 16:10 | IPNPDOC ---
Date Seen The patient was seen on 03/28/20. Progress Note SUBJECTIVE: Patient's O2 dropped to <88% on 5 L NC this AM, increased wheezing with posterior base crackles b/l. BNP increased to 1018 from 195 since admission. CXR showed increased atelectasis vs. pneumonia, UA +. Started on levofloxacin IV, fluids stopped, lasix given, methylprednisolone continued BID, started duonebs ATC. Patient denies incr SOB but complains of RLE pain with movement. OBJECTIVE: PHYSICAL EXAMINATION: VITAL SIGNS: Please see below. GEN: well nourished / well developed/ NAD, following all commands HEENT:AT/NC, EOM intact, nasal cannula in place CVS: RRR/ pacer palpable at left upper chest/ + lower extremity edema LUNGS: mild exp wheezing, b/l posterior lung base crackles-mild, no rhonchi or rales. MSK/EXTREMITIES:NCAT / right hip flexed and externally rotated INTEG: Several well healing incisions on the R hip, R thigh laterally NEURO: CN 2-12 are grossly intact, no focal deficits, AAOx 3 PSYCH: mood and affect appropriate LABORATORY DATA: Please see below IMAGING: CXR 03/28/20: Chronic changes. Mild superimposed atelectasis/infiltrate left lung base in the retrocardiac region. MICROBIOLOGY: Please see below. ASSESSMENT: Mr. Murphy is a 75 yr old smoker w a hx of CAD, BPH, COPD, Chronic O2 dependent respiratory failure, CKD 3, HFpEF, Osteoporosis, Pulmonary HTN / Cor Pulmonale, Hypothyroidism, Chronic Anemia, Murphy's esophagus / GERD, Chronic back pain, Demenia, BPH and unsteady gait who presented to the hospital for evaluation af ter missing his chair while trying to sit down and landing on his right side he will be admitted for management of R femur fx, and acute COPD exacerbation. PLAN: #Right femur fracture s/p mechanical Fall -POD 1 for closed reduction and fixation of hip fracture with cephalomedullary implant/TFN nail -Hx of unsteady gait, osteoporosis -Unlikely syncopal episode, no documented loss of consciousness per patient. -Pain control, IS Q2H while awake, PT/OT -C/w calcium with vitamin D -Ortho following closely. #Acute on chronic respiratory failure likely multifactorial 2/2 to COPD exacerbation, possibly mild CHF exacerbation, ? PNA on XR -Baseline patient uses 3 L at home, currently saturating 88% on 6L NC. Has been on increased dose ever since return from OR -CXR today: Mild superimposed atelectasis/infiltrate left lung base in the retrocardiac region. -Diuresed 800 mL after given 40 mg IV lasix in addition to torsemide, spironolactone. Monitoring o/p closely -Started on levofloxacin IV daily -Incentive spirometer ordered Q2H while awake. -C/w methylprednisolone 60 mg IV Q12H, duonebs ATC, albuterol PRN. #Acute on Chronic Anemia -H/H slightly lower than baseline -F/u iron studies B12 and folate #Asymptomatic Bacteruria / Chronic colonization of chronic [place] -Do not treat #CAD -C/w Aspirin, nitroglycerine #BPH -chronic trujillo -C/w Tamsulosin, finasteride #CKD 3 at baseline #Chronic back pain -C/w percocet, Acetaminophen & Flector patch #Dementia -Was appropriate for me this AM, AAOx3 -PFS consult to assess his living situation and determine if he needs SNF sil cement #Hypothyroidism -TSH Dec 2019 0.726 -C/w levothyroxine #GERD Murphy's -PPI and Carafate #DVT Px -SCDs DISPOSITION: PT/OT to assess. Poss rehab vs. SNF at discharge. VS, I&O, 24H, Fishbone Vital Signs/I&O Vital Signs Date Time Temp Pulse Resp B/P (MAP) Pulse Ox O2 Delivery O2 Flow Rate FiO2 03/28/20 14:00 98.8 90 16 103/85 (91) 88 Nasal Cannula 5.0 03/27/20 13:20 35 I&O- Last 24 Hours up to 6 AM0 03/28/20 06:00 Intake Total 1460 ml Output Total 1700 ml Balance -240 ml Laboratory Data 24H LABS Laboratory Tests 2 03/28/20 06:36: Nucleated Red Blood Cells % (auto) 0.0, Anion Gap 4L, Glomerular Filtration Rate > 60.0, Calcium Level 8.3L, Troponin I < 0.02, ET-Hnm-W-Type Natriuretic Peptide 1018H CBC/BMP Laboratory Tests 03/28/20 06:36 Microbiology Microbiology 03/27/20 Blood Culture - Preliminary, Resulted No growth after 24 hours . All specim... 03/27/20 Urine Culture, Received Pending Current Medications Current Medications Medications (Trade) Dose Ordered Sig/Will Route PRN Reason Start Time Stop Time Status Last Admin Dose Admin Acetaminophen (Tylenol Tab) 650 mg Q4H PRN PO MILD PAIN OR FEVER 03/27/20 03:45 03/27/20 14:03 DC Acetaminophen (Tylenol Tab) 650 mg Q4HP PRN PO mild pain 03/27/20 14:00 Al Hydrox/Mg Hydrox/Simethicone (Mylanta) 30 ml DAILY PRN PO DYSPEPSIA 03/27/20 03:45 Albuterol Sulfate (Proventil Neb) 2.5 mg Q1HP PRN NEB SHORTNESS OF BREATH 03/27/20 04:30 03/27/20 05:35 DC Albuterol Sulfate (Proventil Neb) 2.5 mg RQ6H NEB 03/27/20 20:00 03/28/20 10:40 DC 03/28/20 03:32 Albuterol/ Ipratropium (Duoneb (Ipr 0.5mg/Alb 2.5mg)) 3 ml RQ4H NEB 03/28/20 12:00 03/28/20 15:22 Albuterol/ Ipratropium (Duoneb (Ipr 0.5mg/Alb 2.5mg)) 3 ml RQ6H NEB 03/27/20 08:00 03/27/20 17:02 DC 03/27/20 07:26 Aspirin (Ecotrin) 81 mg BID PO 03/28/20 09:00 03/28/20 10:32 Cefazolin Sodium/ Dextrose 2 gm/IV Miscellaneous Supplies 50 ml @ 75 mls/hr ASDIRECTED IV 03/27/20 06:00 03/27/20 12:01 DC Cefazolin Sodium/ Dextrose 2 gm/IV Miscellaneous Supplies 50 ml @ 75 mls/hr Q6H IV 03/27/20 16:00 03/27/20 22:39 DC 03/27/20 21:41 Diclofenac Epolamine (Flector 1.3%) 1 patch Q12H TOP 03/27/20 09:00 03/27/20 21:40 Fentanyl Citrate (Sublimaze) 25 mcg Q5MP PRN IV PAIN LEVEL 5-10 03/27/20 12:15 03/27/20 13:15 DC Finasteride (Proscar) 5 mg DAILY PO 03/27/20 09:00 03/28/20 10:29 Furosemide (LASIX injection) 40 mg DAILY IV 03/28/20 10:45 03/28/20 11:07 Home Med (Med Rec Complete!) ASDIRECTED XX 03/27/20 03:15 03/27/20 03:08 DC Lactated Ringer's 1,000 ml @ 60 mls/hr [id number] IV 03/27/20 03:45 03/27/20 07:58 DC 03/27/20 05:25 Lactated Ringer's 1,000 ml @ 80 mls/hr [id number] IV 03/27/20 12:15 03/27/20 13:15 DC Levalbuterol HCl (Xopenex Neb) 0.63 mg Q1HP PRN INH dyspnea 03/27/20 20:15 Levalbuterol HCl (Xopenex Neb) 0.63 mg Q4HP PRN INH dyspnea 03/27/20 05:30 03/27/20 20:05 DC 03/27/20 05:39 Levofloxacin 750 mg/IV Miscellaneous Supplies 150 ml @ 100 mls/hr Q24H IV 03/28/20 13:00 03/28/20 13:31 Levothyroxine Sodium (Synthroid) 75 mcg QAM PO 03/27/20 09:00 03/28/20 10:31 Magnesium Hydroxide (Milk Of Magnesia) 30 ml DAILY PRN PO CONSTIPATION 03/27/20 03:45 Methylprednisolone (SOLUmedrol) 60 mg Q12H IV 03/28/20 11:00 03/28/20 11:06 Methylprednisolone (SOLUmedrol) 125 mg STAT STAT IV 03/27/20 04:21 03/27/20 04:22 DC 03/27/20 05:24 Morphine Sulfate (Morphine Sulfate Inj) 2 mg Q2H PRN IV MODERATE/SEVERE PAIN (PS 5-10) 03/27/20 03:45 03/27/20 12:51 DC 03/27/20 06:31 Morphine Sulfate (Morphine Sulfate Inj) 2 mg Q2H PRN IV SEVERE PAIN (PS 8-10) 03/27/20 13:00 03/28/20 06:11 DC Morphine Sulfate (Morphine Sulfate Inj) 2 mg Q30M PRN IV MODERATE PAIN (PS 5-7) 03/27/20 02:00 03/27/20 03:14 DC 03/27/20 03:13 Morphine Sulfate (Morphine Sulfate Inj) 2 mg Q5MP PRN IV PAIN LEVEL 4-7 03/27/20 12:15 03/27/20 13:15 DC Nitroglycerin (Nitrostat (1/ 150)) 0.4 mg Q5MP PRN SL CHEST PAIN 03/27/20 05:30 Ondansetron HCl (ZOFRAN INJection) 4 mg Q4HP PRN IV NAUSEA OR VOMITING 03/27/20 12:15 03/27/20 13:15 DC Ondansetron HCl (ZOFRAN INJection) 4 mg Q6H PRN IV NAUSEA 03/27/20 13:00 Oxycodone/ Acetaminophen (Percocet 5mg/ 325mg Tablet) 1 tab Q4H PRN PO MODERATE PAIN (PS 5-7) 03/27/20 13:00 03/28/20 10:36 Pantoprazole Sodium (Protonix) 40 mg BID PO 03/27/20 05:30 03/28/20 10:39 Pantoprazole Sodium (Protonix) 40 mg DAILY PO 03/27/20 09:00 03/27/20 05:35 DC Prednisone (Deltasone) 40 mg DAILY PO 03/27/20 09:00 03/28/20 10:31 Psyllium Hydrophilic Mucilloid (Metamucil) 1 pkt DAILY PO 03/27/20 09:00 03/28/20 10:36 Salmeterol Xinafoate/ Fluticasone (Advair Hfa 230/ 21) 2 puff RBID INH 03/27/20 20:00 03/28/20 07:51 Sodium Chloride 1,000 ml @ 70 mls/hr [id number] IV 03/27/20 08:00 03/27/20 17:54 DC 03/27/20 08:32 Spironolactone (Aldactone) 25 mg DAILY PO 03/27/20 09:00 03/28/20 10:36 Sucralfate (Carafate) 1 gm BID PO 03/27/20 09:00 03/28/20 10:29 Tamsulosin HCl (Flomax) 0.4 mg DAILY PO 03/27/20 09:00 03/28/20 10:36 Tiotropium [place] (Spiriva Handihaler) 1 inhalation DAILY@0800 INH 03/27/20 08:00 03/28/20 10:40 DC 03/28/20 07:51 Torsemide (Demadex) 40 mg BID@09,17 PO 03/27/20 09:00 03/28/20 10:36 Torsemide (Demadex) 80 mg BID PO 03/27/20 09:00 03/27/20 07:58 DC Allergies Coded Allergies: Sulfa (Sulfonamide Antibiotics) (Verified Allergy, Mild, RASH, 09/30/19) latex (Verified Allergy, Mild, rash, 09/30/19) shellfish derived (Verified Allergy, Mild, ITCHING, 09/30/19) hydrocodone (Verified Adverse Reaction, Mild, 09/30/19) confusion Sydney Shen MD Mar 28, 2020 16:10
[2020-03-28] MEDS ORDERED: ALBUTEROL SULFATE 2.5 MG/0.5 ML INH NEB SOLN NEB PRN (16:15)
[2020-03-28] MEDS: DOCUSATE SODIUM 100MG CAPSULE PO SCH (21:17)
[2020-03-28] MEDS: FERROUS SULFATE 325MG TAB PO SCH (21:17)
[2020-03-28 22:00] VITALS: BP 110/46
[2020-03-29] MEDS: IPRATROPIUM 0.5MG/ALBUTEROL 2.5MG INH SOL UD 3ML (DUONEB) NEB SCH ×7 (00:04→23:00)
[2020-03-29 06:00] VITALS: BP 111/49
[2020-03-29 06:57] LABS: HEMATOCRIT 28.9 % (42.0-52.0); MEAN CORPUSCULAR HEMOGLOBIN 27.5 pg (27.0-33.0); MEAN CORPUSCULAR HGB CONC 31.1 g/dl (32.0-36.5); MEAN CORPUSCULAR VOLUME 88.4 fl (80.0-96.0); PLATELET COUNT, AUTOMATED 171 10^3/uL (150-450); RED BLOOD COUNT 3.27 10^6/uL (4.30-6.10); WHITE BLOOD COUNT 13.6 10^3/uL (4.0-10.0)
[2020-03-29 07:29] LABS: ALBUMIN 2.7 GM/DL (3.2-5.2); ALT/SGPT 13 U/L (12-78); BILIRUBIN,TOTAL 0.3 MG/DL (0.2-1.0); BLOOD UREA NITROGEN 29 MG/DL (7-18); CALCIUM LEVEL 8.4 MG/DL (8.8-10.2); CARBON DIOXIDE LEVEL 35 MEQ/L (21-32); CHLORIDE LEVEL 95 MEQ/L (98-107); CREATININE FOR GFR 1.13 MG/DL (0.70-1.30); GLOMERULAR FILTRATION RATE > 60.0 (>42); GLUCOSE, FASTING 134 MG/DL (70-100); POTASSIUM SERUM 4.1 MEQ/L (3.5-5.1); SODIUM LEVEL 135 MEQ/L (136-145); TOTAL PROTEIN 5.8 GM/DL (6.4-8.2)
[2020-03-29] MEDS: ADVAIR HFA 230/21MCG INHALER INH SCH ×2 (07:43→19:30)
[2020-03-29] MEDS ORDERED: FUROSEMIDE 40MG/4ML VIAL (J1940) IV SCH (09:00)
[2020-03-29] MEDS: predniSONE 20 MG TAB PO SCH (09:45)
[2020-03-29] MEDS: TAMSULOSIN 0.4 MG CAP PO SCH (09:45)
[2020-03-29] MEDS: FUROSEMIDE 40MG/4ML VIAL (J1940) IV SCH ×2 (09:45→17:34)
[2020-03-29] MEDS: METAMUCIL (PSYLLIUM) PACKET PO SCH (09:45)
[2020-03-29] MEDS: SPIRONOLACTONE 25 MG TAB PO SCH (09:45)
[2020-03-29] MEDS: FINASTERIDE 5 MG TAB PO SCH (09:46)
[2020-03-29] MEDS: ASPIRIN 81 MG ENTERIC TAB PO SCH ×2 (09:46→21:42)
[2020-03-29] MEDS: DOCUSATE SODIUM 100MG CAPSULE PO SCH ×2 (09:46→21:42)
[2020-03-29] MEDS: DICLOFENAC EPOLAMINE 1.3 % PATCH TOP SCH ×2 (09:46→21:00)
[2020-03-29] MEDS: LEVOTHYROXINE 75MCG TABLET (0.075MG) PO SCH (09:46)
[2020-03-29] MEDS: FERROUS SULFATE 325MG TAB PO SCH ×2 (09:46→21:42)
[2020-03-29] MEDS: PANTOPRAZOLE 40MG TAB (PROTONIX) PO SCH ×2 (09:46→21:42)
[2020-03-29] MEDS: SUCRALFATE 1 GM TAB PO SCH ×2 (09:46→21:42)
--- NOTE | 2020-03-29 11:35 | REP ---
INDICATION: r/o SBO, verify NGT placement COMPARISON: None. TECHNIQUE: Supine view of the abdomen and pelvis. FINDINGS: Nasogastric tube extends into the left upper quadrant. The bowel gas pattern demonstrates moderate distension of the small and large bowel with significant fecal stasis. Findings likely represent ileus and should be correlated with physical examination. No obvious focal bowel obstruction or evidence for perforation identified. IMPRESSION: Nasogastric tube below the left hemidiaphragm in seemingly satisfactory position. Findings most compatible with significant ileus and fecal stasis. <Electronically signed by Aaron Cadena > 03/29/20 [id number]
[2020-03-29] MEDS: ALVIMOPAN 12 MG CAPSULE (ENTEREG) PO SCH ×2 (12:23→21:42)
[2020-03-29] MEDS: methylPREDNISolone 125MG 2ML VIAL IV SCH ×2 (12:23→23:17)
[2020-03-29] MEDS: LevoFLOXacin IV 750 MG in IV 1 EA IV SCH (12:23)
[2020-03-29 14:00] VITALS: BP 114/53
--- NOTE | 2020-03-29 16:34 | IPNPDOC ---
Text Note Date of Service The patient was seen on 03/29/20. NOTE SUBJECTIVE: -On 5 L NC this AM Was started on empiric levofloxacin IV yesterday, fluids were stopped, started on IV lasix, duonebs ATC. and placed on steroids, now prednisone 40 QD -Was doing well this morning, but shortly after I saw him, nursing called because he started vomiting feculant material --> placed NGT, ordered AXR and consulted gen surg for ileus vs. potential SBO. -Has RLE pain with movement. OBJECTIVE: VITAL SIGNS: Please see below. HDS, afebrile, on 5L NC GEN: NAD HEENT:NCAT, EOM intact, nasal cannula in place CVS: RRR, no murmurs, rubs or gallops, + lower extremity edema LUNGS: mild scattered exp wheezing, persistent b/l posterior lung base crackles, no rhonchi EXTREMITIES: bilateral LE edema, otherwise WWP SKIN: healing incisions on R hip NEURO: CN 2-12 are grossly intact, no focal deficits, AAOx 3 LABORATORY DATA: Reviewed. Please see below IMAGING: CXR 03/28/20: Chronic changes. Mild superimposed atelectasis/infiltrate left lung base in the retrocardiac region. MICROBIOLOGY: Please see below. ASSESSMENT: Mr. Murphy is a 75 yr old smoker w a hx of CAD, BPH, COPD with chronic O2 dependent respiratory failure on home 3L NC, CKD 3, HFpEF, Osteoporosis, Pulmonary HTN / Cor Pulmonale, Hypothyroidism, Chronic Anemia, Murphy's esophagus / GERD, Chronic back pain, Dementia, BPH and unsteady gait who presented to the hospital for evaluation after missing his chair while trying to sit down and landing on his right side he will be admitted for management of R femur fx, with postop course c/b acute on chronic hypoxemic respiratory failure currently with suspicion of acute on chronic HFpEF, COPD exacerbation and possible PNA. PLAN: #Acute on chronic respiratory failure likely multifactorial, currently with suspicion of acute on chronic HFpEF, COPD exacerbation and possible PNA. -Baseline patient uses 3 L at home, currently saturating 88% on 6L NC, since returning from OR -CXR showed superimposed atelectasis/infiltrate left lung base in the retrocardiac region. -DC'd home torsemide, placed on lasix 80 IV BID for now. Continued home spironolactone. -strict I/Os -Day 2 of empiric levofloxacin IV daily -Incentive spirometer ordered Q2H while awake. -duonebs ATC, albuterol PRN. -pred 40QD, day 2 of steroids COPD exacerbation -supplemental O2, with goal O2 88% -Incentive spirometer ordered Q2H while awake. -duonebs ATC, albuterol PRN. -methylpred, day 2 of steroids Acute on chronic HFpEF -DC'd home torsemide, placed on lasix 80 IV BID for now. Continued home spironolactone. -strict I/Os Presumed PNA -Day 2 of empiric levofloxacin IV daily Ileus with emesis this AM -NGT placed -AXR showing ileus -gen surgery consulted -NPO #Right femur fracture s/p mechanical Fall -POD 2 for closed reduction and fixation of hip fracture with cephalomedullary implant/TFN nail -Hx of unsteady gait, osteoporosis -Unlikely syncopal episode, no documented loss of consciousness per patient. -Pain control, IS Q2H while awake, PT/OT -C/w calcium with vitamin D -Ortho following closely. #Acute on Chronic Anemia -H/H slightly lower than baseline -F/u iron studies B12 and folate #Asymptomatic Bacteruria / Chronic colonization of chronic [place] -Do not treat. #CAD -C/w Aspirin, nitroglycerine #BPH -chronic trujillo -C/w Tamsulosin, finasteride #CKD 3 at baseline #Chronic back pain -C/w Percocet, Acetaminophen & Flector patch #Dementia -At baseline -PFS consult to assess his living situation and determine if he needs SNF placement #Hypothyroidism -TSH Dec 2019 0.726 -C/w levothyroxine #GERD Murphy's -PPI and Carafate #DVT Px -SCDs DISPOSITION: PT/OT to assess. Poss rehab vs. SNF at discharge once respiratory failure has improved and close to baseline. VS,Fishbone, I+O VS, Fishbone, I+O Laboratory Tests 03/29/20 06:44 Vital Signs Date Time Temp Pulse Resp B/P (MAP) Pulse Ox O2 Delivery O2 Flow Rate FiO2 03/29/20 06:00 98.4 90 21 111/49 (69) 89 Nasal Cannula 5.0 03/27/20 13:20 35 I&O- Last 24 Hours up to 6 AM 03/29/20 06:00 Intake Total 1640 ml Output Total 1175 ml Balance 465 ml ANGELA LANG MD Mar 29, 2020 08:53
[2020-03-29 22:00] VITALS: BP 115/55
[2020-03-30] MEDS: PERCOCET 5MG/325MG TAB PO PRN ×3 (00:43→11:57)
[2020-03-30] MEDS: IPRATROPIUM 0.5MG/ALBUTEROL 2.5MG INH SOL UD 3ML (DUONEB) NEB SCH ×6 (03:00→23:48)
[2020-03-30 06:00] VITALS: BP 120/61
[2020-03-30] MEDS: ADVAIR HFA 230/21MCG INHALER INH SCH ×2 (07:28→20:02)
[2020-03-30] MEDS: PANTOPRAZOLE 40MG TAB (PROTONIX) PO SCH ×2 (08:30→21:22)
[2020-03-30] MEDS: SPIRONOLACTONE 25 MG TAB PO SCH (08:30)
[2020-03-30] MEDS: FUROSEMIDE 40MG/4ML VIAL (J1940) IV SCH (08:30)
[2020-03-30] MEDS: FERROUS SULFATE 325MG TAB PO SCH ×2 (08:30→21:22)
[2020-03-30] MEDS: LEVOTHYROXINE 75MCG TABLET (0.075MG) PO SCH (08:30)
[2020-03-30] MEDS: TAMSULOSIN 0.4 MG CAP PO SCH (08:30)
[2020-03-30] MEDS: METAMUCIL (PSYLLIUM) PACKET PO SCH (08:31)
[2020-03-30] MEDS: SUCRALFATE 1 GM TAB PO SCH ×2 (08:31→21:22)
[2020-03-30] MEDS: DOCUSATE SODIUM 100MG CAPSULE PO SCH ×2 (08:31→21:22)
[2020-03-30] MEDS: ALVIMOPAN 12 MG CAPSULE (ENTEREG) PO SCH ×2 (08:31→21:22)
[2020-03-30] MEDS: ASPIRIN 81 MG ENTERIC TAB PO SCH ×2 (08:31→21:22)
[2020-03-30] MEDS: FINASTERIDE 5 MG TAB PO SCH (08:31)
[2020-03-30] MEDS: DICLOFENAC EPOLAMINE 1.3 % PATCH TOP SCH ×2 (08:31→21:00)
[2020-03-30] MEDS ORDERED: methylPREDNISolone 125MG 2ML VIAL IV SCH (09:00)
[2020-03-30] MEDS: LevoFLOXacin IV 750 MG in IV 1 EA IV SCH (11:56)
[2020-03-30 14:00] VITALS: BP 121/63
--- NOTE | 2020-03-30 18:43 | IPNPDOC ---
Text Note Date of Service The patient was seen on 03/30/20. NOTE SUBJECTIVE: -On 4 L NC this AM -Had feculant emesis yesterday morning for which he got an NGT and AXR showed ileus and gen surg was consulted. -No complaints this morning OBJECTIVE: VITAL SIGNS: Please see below. HDS, afebrile, on 5L NC GEN: NAD HEENT:NCAT, EOM intact, nasal cannula in place CVS: RRR, no murmurs, rubs or gallops, + lower extremity edema LUNGS: mild scattered exp wheezing, persistent b/l posterior lung base crackles, no rhonchi ABD: normoactive sounds, soft, NTND EXTREMITIES: bilateral LE edema, otherwise WWP SKIN: healing incisions on R hip NEURO: CN 2-12 are grossly intact, no focal deficits, AAOx 3 LABORATORY DATA: Reviewed. Pending AM labs. Please see below for complete labs IMAGING: CXR 03/28/20: Chronic changes. Mild superimposed atelectasis/infiltrate left lung base in the retrocardiac region. AXR: developing ileus MICROBIOLOGY: Please see below. ASSESSMENT: 75 yr old smoker w a hx of CAD, BPH, COPD with chronic O2 dependent respiratory failure on home 3L NC, CKD 3, HFpEF, Osteoporosis, Pulmonary HTN / Cor Pulmonale, Hypothyroidism, Chronic Anemia, Murphy's esophagus / GERD, Chronic back pain, Dementia, BPH and unsteady gait who presented to the hospital for evaluation after missing his chair while trying to sit down and landing on his right side he will be admitted for management of R femur fx, with postop course c/b acute on chronic hypoxemic respiratory failure currently with suspicion of acute on chronic HFpEF, COPD exacerbation and possible PNA, now also c/b an ileus. PLAN: #Acute on chronic respiratory failure likely multifactorial, currently with suspicion of acute on chronic HFpEF, COPD exacerbation and possible PNA. -Baseline patient uses 3 L at home, currently saturating 88% on 6L NC, since returning from OR -CXR showed superimposed atelectasis/infiltrate left lung base in the retrocardiac region. -Reduce lasix to 80mg IV QD. Continued home spironolactone. -strict I/Os -Day 3 of empiric levofloxacin IV daily -Incentive spirometer ordered Q2H while awake. -duonebs ATC, albuterol PRN. -reduce methylpred to QD, day 3 of steroids COPD exacerbation -supplemental O2, with goal O2 88% -Incentive spirometer ordered Q2H while awake. -durossana ATC, albuterol PRN. -switch methylpred to QD, day 3 of steroids Acute on chronic HFpEF -Reduce lasix 80 IV to once daily. Continued home spironolactone. -strict I/Os Presumed PNA -Day 3 of empiric levofloxacin IV daily Ileus: -NGT placed yesterday --> was dc'd this AM --> now placed on clear liquid diet -gen surgery consulted, was started on entereg by Dr. Wei #Right femur fracture s/p mechanical Fall -POD 3 for closed reduction and fixation of hip fracture with cephalomedullary implant/TFN nail -Hx of unsteady gait, osteoporosis -Unlikely syncopal episode, no documented loss of consciousness per patient. -Pain control, IS Q2H while awake, PT/OT -C/w calcium with vitamin D -Ortho following closely. #Acute on Chronic Anemia -H/H slightly lower than baseline -F/u iron studies B12 and folate #Asymptomatic Bacteruria / Chronic colonization of chronic [place] -Do not treat. #CAD -C/w Aspirin, nitroglycerine #BPH -chronic trujillo -C/w Tamsulosin, finasteride #CKD 3 at baseline #Chronic back pain -C/w Percocet, Acetaminophen & Flector patch #Dementia -At baseline -PFS consult to assess his living situation and determine if he needs SNF placement #Hypothyroidism -TSH Dec 2019 0.726 -C/w levothyroxine #GERD Murphy's -PPI and Carafate #DVT Px -SCDs DISPOSITION: PT/OT to assess. Poss rehab vs. SNF at discharge once respiratory failure has improved and close to baseline. VS,Fishbone, I+O VS, Fishbone, I+O Vital Signs Date Time Temp Pulse Resp B/P (MAP) Pulse Ox O2 Delivery O2 Flow Rate FiO2 03/30/20 06:38 4.0 03/30/20 06:00 97.7 90 19 120/61 (80) 92 Nasal Cannula 03/27/20 13:20 35 I&O- Last 24 Hours up to 6 AM 03/30/20 05:59 Intake Total 570 ml Output Total 2425 ml Balance -1855 ml [id number]-DAYANA,ANGELA V. MD Mar 30, 2020 09:50
[2020-03-30 22:00] VITALS: BP 120/64
[2020-03-30 23:09] VITALS: O2SAT 92
[2020-03-31] MEDS: ACETAMINOPHEN TAB 650MG DOSE (2X325MG) PO PRN (05:25)
[2020-03-31 06:00] VITALS: BP 120/64
[2020-03-31] MEDS: IPRATROPIUM 0.5MG/ALBUTEROL 2.5MG INH SOL UD 3ML (DUONEB) NEB SCH ×4 (07:21→23:17)
[2020-03-31 07:59] LABS: HEMATOCRIT 26.9 % (42.0-52.0); HEMOGLOBIN 8.3 g/dl (13.5-17.5); MEAN CORPUSCULAR HEMOGLOBIN 27.3 pg (27.0-33.0); MEAN CORPUSCULAR HGB CONC 30.9 g/dl (32.0-36.5); MEAN CORPUSCULAR VOLUME 88.5 fl (80.0-96.0); PLATELET COUNT, AUTOMATED 200 10^3/uL (150-450); RED BLOOD COUNT 3.04 10^6/uL (4.30-6.10); WHITE BLOOD COUNT 11.4 10^3/uL (4.0-10.0)
[2020-03-31] MEDS: ADVAIR HFA 230/21MCG INHALER INH SCH ×2 (08:00→19:38)
[2020-03-31 08:24] LABS: BLOOD UREA NITROGEN 38 MG/DL (7-18); CALCIUM LEVEL 8.2 MG/DL (8.8-10.2); CARBON DIOXIDE LEVEL 36 MEQ/L (21-32); CHLORIDE LEVEL 96 MEQ/L (98-107); CREATININE FOR GFR 1.06 MG/DL (0.70-1.30); GLOMERULAR FILTRATION RATE > 60.0 (>42); GLUCOSE, FASTING 110 MG/DL (70-100); POTASSIUM SERUM 3.6 MEQ/L (3.5-5.1); SODIUM LEVEL 138 MEQ/L (136-145)
[2020-03-31] MEDS ORDERED: FUROSEMIDE 40MG/4ML VIAL (J1940) IV SCH (09:00)
[2020-03-31] MEDS: NICOTINE 21MG/24HR 1 EA TRANSDERMAL TD SCH (09:03)
[2020-03-31] MEDS: DICLOFENAC EPOLAMINE 1.3 % PATCH TOP SCH ×2 (09:03→20:49)
[2020-03-31] MEDS: predniSONE 20 MG TAB PO SCH (09:03)
[2020-03-31] MEDS: TORSEMIDE 20 MG TAB PO SCH ×2 (09:04→17:46)
[2020-03-31] MEDS: MOM 30ML SUSPENSION UDC PO SCH (09:04)
[2020-03-31] MEDS: METAMUCIL (PSYLLIUM) PACKET PO SCH (09:04)
[2020-03-31] MEDS: SUCRALFATE 1 GM TAB PO SCH ×2 (09:05→20:48)
[2020-03-31] MEDS: ASPIRIN 81 MG ENTERIC TAB PO SCH ×2 (09:05→20:48)
[2020-03-31] MEDS: TAMSULOSIN 0.4 MG CAP PO SCH (09:05)
[2020-03-31] MEDS: LEVOTHYROXINE 75MCG TABLET (0.075MG) PO SCH (09:05)
[2020-03-31] MEDS: FERROUS SULFATE 325MG TAB PO SCH ×2 (09:05→20:48)
[2020-03-31] MEDS: ALVIMOPAN 12 MG CAPSULE (ENTEREG) PO SCH ×2 (09:05→20:48)
[2020-03-31] MEDS: PANTOPRAZOLE 40MG TAB (PROTONIX) PO SCH ×2 (09:05→20:48)
[2020-03-31] MEDS: DOCUSATE SODIUM 100MG CAPSULE PO SCH ×2 (09:06→20:48)
[2020-03-31] MEDS: SPIRONOLACTONE 25 MG TAB PO SCH (09:06)
[2020-03-31] MEDS: PERCOCET 5MG/325MG TAB PO PRN ×3 (09:06→19:15)
[2020-03-31] MEDS: FINASTERIDE 5 MG TAB PO SCH (09:07)
--- NOTE | 2020-03-31 09:41 | IPNPDOC ---
Subjective General Date/Time Seen The patient was seen on 03/31/20 at 09:38. Subject Chief Complaint/History The patient is a 75-year-old male admitted with a reason for visit of Intertrochanteric Fx Of R Hip. Patient being followed up for postop ileus secondar following ORIF R Hip fracture reports feeling well, hungry, denies nausea, bloating, no BMs yet but passing flatus, feels he would need to go soon Comfortable appearance abdomen is soft, minimally distended, active bs, nontender on palpation Impression ileus ressolving will advance to soft diet give a dose of laxative to help start BM Current Medications Current Medications Current Medications Medications (Trade) Dose Ordered Sig/Will Route PRN Reason Start Time Stop Time Status Last Admin Dose Admin Acetaminophen (Tylenol Tab) 650 mg Q4H PRN PO MILD PAIN OR FEVER 03/27/20 03:45 03/27/20 14:03 DC Acetaminophen (Tylenol Tab) 650 mg Q4HP PRN PO mild pain 03/27/20 14:00 03/31/20 05:25 Al Hydrox/Mg Hydrox/Simethicone (Mylanta) 30 ml DAILY PRN PO DYSPEPSIA 03/27/20 03:45 Albuterol Sulfate (Proventil Neb) 2.5 mg Q1HP PRN NEB SHORTNESS OF BREATH 03/27/20 04:30 03/27/20 05:35 DC Albuterol Sulfate (Proventil Neb) 2.5 mg Q2HP PRN NEB SOB/WHEEZING 03/28/20 16:15 Albuterol Sulfate (Proventil Neb) 2.5 mg RQ6H NEB 03/27/20 20:00 03/28/20 10:40 DC 03/28/20 03:32 Albuterol/ Ipratropium (Duoneb (Ipr 0.5mg/Alb 2.5mg)) 3 ml RQ4H NEB 03/28/20 12:00 03/30/20 23:48 Albuterol/ Ipratropium (Duoneb (Ipr 0.5mg/Alb 2.5mg)) 3 ml RQ6H NEB 03/27/20 08:00 03/27/20 17:02 DC 03/27/20 07:26 Alvimopan (Entereg) 12 mg BID PO 03/29/20 09:00 04/05/20 08:59 03/31/20 09:05 Aspirin (Ecotrin) 81 mg BID PO 03/28/20 09:00 03/31/20 09:05 Cefazolin Sodium/ Dextrose 2 gm/IV Miscellaneous Supplies 50 ml @ 75 mls/hr ASDIRECTED IV 03/27/20 06:00 03/27/20 12:01 DC Cefazolin Sodium/ Dextrose 2 gm/IV Miscellaneous Supplies 50 ml @ 75 mls/hr Q6H IV 03/27/20 16:00 03/27/20 22:39 DC 03/27/20 21:41 Diclofenac Epolamine (Flector 1.3%) 1 patch Q12H TOP 03/27/20 09:00 03/31/20 09:03 Docusate Sodium (Colace) 100 mg BID PO 03/28/20 21:00 03/31/20 09:06 Fentanyl Citrate (Sublimaze) 25 mcg Q5MP PRN IV PAIN LEVEL 5-10 03/27/20 12:15 03/27/20 13:15 DC Ferrous Sulfate (Ferrous Sulfate) 325 mg BID PO 03/28/20 21:00 03/31/20 09:05 Finasteride (Proscar) 5 mg DAILY PO 03/27/20 09:00 03/31/20 09:07 Furosemide (LASIX injection) 40 mg DAILY IV 03/28/20 10:45 03/29/20 08:41 DC 03/28/20 11:07 Furosemide (LASIX injection) 80 mg BID IV 03/29/20 09:00 03/29/20 08:45 DC Furosemide (LASIX injection) 80 mg BID@0900,1700 IV 03/29/20 09:00 03/30/20 09:52 DC 03/30/20 08:30 Furosemide (LASIX injection) 80 mg DAILY IV 03/31/20 09:00 03/31/20 08:16 DC Home Med (Med Rec Complete!) ASDIRECTED XX 03/27/20 03:15 03/27/20 03:08 DC Lactated Ringer's 1,000 ml @ 60 mls/hr [id number] IV 03/27/20 03:45 03/27/20 07:58 DC 03/27/20 05:25 Lactated Ringer's 1,000 ml @ 80 mls/hr [id number] IV 03/27/20 12:15 03/27/20 13:15 DC Levalbuterol HCl (Xopenex Neb) 0.63 mg Q1HP PRN INH dyspnea 03/27/20 20:15 03/28/20 16:23 DC Levalbuterol HCl (Xopenex Neb) 0.63 mg Q4HP PRN INH dyspnea 03/27/20 05:30 03/27/20 20:05 DC 03/27/20 05:39 Levofloxacin 750 mg/IV Miscellaneous Supplies 150 ml @ 100 mls/hr Q24H IV 03/28/20 13:00 03/30/20 11:56 Levothyroxine Sodium (Synthroid) 75 mcg QAM PO 03/27/20 09:00 03/31/20 09:05 Magnesium Hydroxide (Milk Of Magnesia) 30 ml DAILY PO 03/31/20 06:30 03/31/20 09:04 Magnesium Hydroxide (Milk Of Magnesia) 30 ml DAILY PRN PO CONSTIPATION 03/27/20 03:45 03/31/20 06:27 DC Methylprednisolone (SOLUmedrol) 60 mg DAILY IV 03/30/20 09:00 03/31/20 08:19 DC 03/30/20 10:12 Methylprednisolone (SOLUmedrol) 60 mg Q12H IV 03/28/20 11:00 03/30/20 09:52 DC 03/29/20 23:17 Methylprednisolone (SOLUmedrol) 125 mg STAT STAT IV 03/27/20 04:21 03/27/20 04:22 DC 03/27/20 05:24 Morphine Sulfate (Morphine Sulfate Inj) 2 mg Q2H PRN IV MODERATE/SEVERE PAIN (PS 5-10) 03/27/20 03:45 03/27/20 12:51 DC 03/27/20 06:31 Morphine Sulfate (Morphine Sulfate Inj) 2 mg Q2H PRN IV SEVERE PAIN (PS 8-10) 03/27/20 13:00 03/28/20 06:11 DC Morphine Sulfate (Morphine Sulfate Inj) 2 mg Q30M PRN IV MODERATE PAIN (PS 5-7) 03/27/20 02:00 03/27/20 03:14 DC 03/27/20 03:13 Morphine Sulfate (Morphine Sulfate Inj) 2 mg Q5MP PRN IV PAIN LEVEL 4-7 03/27/20 12:15 03/27/20 13:15 DC Nicotine (Nicoderm Cq 21mg) 1 patch DAILY TD 03/31/20 09:00 03/31/20 09:03 Nitroglycerin (Nitrostat (1/ 150)) 0.4 mg Q5MP PRN SL CHEST PAIN 03/27/20 05:30 Ondansetron HCl (ZOFRAN INJection) 4 mg Q4HP PRN IV NAUSEA OR VOMITING 03/27/20 12:15 03/27/20 13:15 DC Ondansetron HCl (ZOFRAN INJection) 4 mg Q6H PRN IV NAUSEA 03/27/20 13:00 Oxycodone/ Acetaminophen (Percocet 5mg/ 325mg Tablet) 1 tab Q4H PRN PO MODERATE PAIN (PS 5-7) 03/27/20 13:00 03/31/20 09:06 Pantoprazole Sodium (Protonix) 40 mg BID PO 03/27/20 05:30 03/31/20 09:05 Pantoprazole Sodium (Protonix) 40 mg DAILY PO 03/27/20 09:00 03/27/20 05:35 DC Prednisone (Deltasone) 40 mg DAILY PO 03/27/20 09:00 03/29/20 10:56 DC 03/29/20 09:45 Prednisone (Deltasone) 40 mg DAILY PO 03/31/20 09:00 03/31/20 09:03 Psyllium Hydrophilic Mucilloid (Metamucil) 1 pkt DAILY PO 03/27/20 09:00 03/31/20 09:04 Salmeterol Xinafoate/ Fluticasone (Advair Hfa 230/ 21) 2 puff RBID INH 03/27/20 20:00 03/30/20 20:02 Sodium Chloride 1,000 ml @ 70 mls/hr [id number] IV 03/27/20 08:00 03/27/20 17:54 DC 03/27/20 08:32 Spironolactone (Aldactone) 25 mg DAILY PO 03/27/20 09:00 03/31/20 09:06 Sucralfate (Carafate) 1 gm BID PO 03/27/20 09:00 03/31/20 09:05 Tamsulosin HCl (Flomax) 0.4 mg DAILY PO 03/27/20 09:00 03/31/20 09:05 Tiotropium [place] (Spiriva Handihaler) 1 inhalation DAILY@0800 INH 03/27/20 08:00 03/28/20 10:40 DC 03/28/20 07:51 Torsemide (Demadex) 40 mg BID@, PO 03/27/20 09:00 03/29/20 08:41 DC 03/28/20 17:18 Torsemide (Demadex) 80 mg BID PO 03/27/20 09:00 03/27/20 07:58 DC Torsemide (Demadex) 80 mg BID@, PO 03/31/20 09:00 03/31/20 09:04 Allergies Coded Allergies: Sulfa (Sulfonamide Antibiotics) (Verified Allergy, Mild, RASH, 09/30/19) latex (Verified Allergy, Mild, rash, 09/30/19) shellfish derived (Verified Allergy, Mild, ITCHING, 09/30/19) hydrocodone (Verified Adverse Reaction, Mild, 09/30/19) confusion Objective Physical Examination Examination GENERAL APPEARANCE:Appears comfortable, no compaints Awake, alert, oriented Abdoen soft, minimal residual distention, nontender on palpation Vital Signs Vital Signs Date Time Temp Pulse Resp B/P (MAP) Pulse Ox O2 Delivery O2 Flow Rate FiO2 03/31/20 09:06 18 Nasal Cannula 4.0 03/31/20 06:00 97.8 83 120/64 (82) 88 03/27/20 13:20 35 I&Os I&O- Last 24 Hours up to 6 AM 03/31/20 06:00 Intake Total 1950 ml Output Total 3200 ml Balance -1250 ml Laboratory Data Labs 24H Laboratory Tests 2 03/31/20 07:46: Nucleated Red Blood Cells % (auto) 0.0, Anion Gap 6L, Glomerular Filtration Rate > 60.0, Calcium Level 8.2L CBC/BMP Laboratory Tests 03/31/20 07:46 Microbiology Microbiology 03/27/20 Blood Culture - Preliminary, Resulted No Growth after 72 hours. All specime... 03/27/20 Urine Culture - Final, Complete Pseudomonas Aeruginosa Klebsiella Oxytoca Escherichia Coli Serratia Marcescens Enterococcus Faecalis Strep Gallolyticus Ssp Cardoza Impression Impression ileus ressolving will advance to soft diet give a dose of laxative to help start BM Plan / VTE VTE Prophylaxis Ordered?: Yes MARIO ALDANA MD Mar 31, 2020 09:41
[2020-03-31 10:30] VITALS: O2SAT 91
--- NOTE | 2020-03-31 10:51 | IPN ---
PROGRESS NOTE DATE: 03/30/2020 SUBJECTIVE: The patient overall has been doing well overnight. He did have some flatus in the morning and overall has had no nausea. He feels less distended than he did last night, and his NG tube output has significantly dropped off overnight. OBJECTIVE: He has been afebrile. His vital signs have been stable. His white count is coming down to 13.6 today. On physical exam, his abdomen is definitely less distended than it was yesterday. He is less tympanitic. No guarding, no rebound, and no peritoneal signs are appreciated. NG tube is in place, not draining any significant amount of fluid at this time. ASSESSMENT AND PLAN: The patient is status post orthopedic surgery with an ileus and at this point, he has made some nice progress overnight with the nasogastric (NG) tube in place. I do feel that it is reasonable to discontinue his NG tube. We will see how he does without the NG tube during the day; but I anticipate if he tolerates this out for the next 24 hours, then he can be started on a clear liquid diet, and then he can advance as tolerated. Otherwise, no surgical intervention is necessary at this time.
--- NOTE | 2020-03-31 13:30 | IPNPDOC ---
Text Note Date of Service The patient was seen on 03/31/20. NOTE SUBJECTIVE: -On 4 L NC this AM -Tolerating clear liquid diet. Is really eager to advance his diet--> was advanced and now taking is slow, which is a great idea. -Otherwise requesting nicotine patch OBJECTIVE: VITAL SIGNS: Please see below. HDS, afebrile, on 5L NC GEN: NAD HEENT:NCAT, EOM intact, nasal cannula in place CVS: RRR, no murmurs, rubs or gallops, + lower extremity edema LUNGS: mild scattered exp wheezing, persistent b/l posterior lung base crackles, no rhonchi ABD: normoactive sounds, soft, NTND EXTREMITIES: bilateral LE edema, otherwise WWP SKIN: healing incisions on R hip NEURO: CN 2-12 are grossly intact, no focal deficits, AAOx 3 LABORATORY DATA: Reviewed. Pending AM labs. Please see below for complete labs IMAGING: CXR 03/28/20: Chronic changes. Mild superimposed atelectasis/infiltrate left lung base in the retrocardiac region. AXR: developing ileus MICROBIOLOGY: Please see below. ASSESSMENT: 75 yr old smoker w a hx of CAD, BPH, COPD with chronic O2 dependent respiratory failure on home 3L NC, CKD 3, HFpEF, Osteoporosis, Pulmonary HTN / Cor Pulmonale, Hypothyroidism, Chronic Anemia, Murphy's esophagus / GERD, Chronic back pain, Dementia, BPH and unsteady gait who presented to the hospital for evaluation after missing his chair while trying to sit down and landing on his right side he will be admitted for management of R femur fx, with postop course c/b acute on chronic hypoxemic respiratory failure currently with suspicion of acute on chronic HFpEF, COPD exacerbation and possible PNA, now also c/b an ileus. PLAN: #Acute on chronic respiratory failure likely multifactorial, currently with suspicion of acute on chronic HFpEF, COPD exacerbation and possible PNA. -Baseline patient uses 3 L at home, currently on 4L NC -CXR showed superimposed atelectasis/infiltrate left lung base in the retrocardiac region. -Stop IV lasix and resume home 80 torsemide PO daily. Continue home spironolactone. -strict I/Os -Day 4 of empiric levofloxacin IV daily -Incentive spirometer ordered Q2H while awake. -duonebs ATC, albuterol PRN. -Switch IV methylpred to prednisone 40 QD, day 4 of steroids COPD exacerbation -supplemental O2, with goal O2 88% -Incentive spirometer ordered Q2H while awake. -jose alfredo ATC, albuterol PRN. -switch methylpred to prednisone 40mg PO QD, day 4 of steroids Acute on chronic HFpEF -DC IV lasix and resume home torsemide 80mg PO BID. Continued home spironolactone. -strict I/Os -daily weights Presumed PNA -Day 4 of empiric levofloxacin IV daily Ileus: -s/p NGT removal, slowly advancing diet -will advance diet per surgery recommendations. Appreciate recs. -Was started on entereg by Dr. Wei #Right femur fracture s/p mechanical Fall -POD 4 for closed reduction and fixation of hip fracture with cephalomedullary implant/TFN nail -Hx of unsteady gait, osteoporosis -Unlikely syncopal episode, no documented loss of consciousness per patient. -Pain control, IS Q2H while awake, PT/OT -C/w calcium with vitamin D -Ortho following closely. #Acute on Chronic Anemia -H/H slow decline, no evidence of acute bleeding. will monitor, with goal hgb >8. #Asymptomatic Bacteruria / Chronic colonization of chronic [place] -Do not treat. #CAD -C/w Aspirin, nitroglycerine #BPH -chronic trujillo -C/w Tamsulosin, finasteride #CKD 3 at baseline #Chronic back pain -C/w Percocet, Acetaminophen & Flector patch #Dementia -At baseline -PFS consult to assess his living situation and determine if he needs SNF placement #Hypothyroidism -TSH Dec 2019 0.726 -C/w levothyroxine #GERD Murphy's -PPI and Carafate #DVT Px -SCDs DISPOSITION: PT/OT to assess. Poss rehab vs. SNF at discharge once respiratory failure has improved and close to baseline. VS,Fishbone, I+O VS, Fishbone, I+O Laboratory Tests 03/31/20 07:46 Vital Signs Date Time Temp Pulse Resp B/P (MAP) Pulse Ox O2 Delivery O2 Flow Rate FiO2 03/31/20 06:00 97.8 83 18 120/64 (82) 88 Nasal Cannula 4.0 03/27/20 13:20 35 I&O- Last 24 Hours up to 6 AM 03/31/20 06:00 Intake Total 1950 ml Output Total 3200 ml Balance -1250 ml ANGELA LANG MD Mar 31, 2020 08:21
[2020-03-31] MEDS: LevoFLOXacin IV 750 MG in IV 1 EA IV SCH (14:50)
[2020-03-31 15:41] VITALS: BP 120/61
[2020-03-31 21:00] VITALS: O2SAT 96
[2020-03-31 22:00] VITALS: BP 118/60
[2020-04-01] MEDS: IPRATROPIUM 0.5MG/ALBUTEROL 2.5MG INH SOL UD 3ML (DUONEB) NEB SCH ×5 (03:54→23:56)
[2020-04-01] MEDS: PERCOCET 5MG/325MG TAB PO PRN ×2 (04:08→21:23)
[2020-04-01 06:00] VITALS: BP 130/63
[2020-04-01 07:09] LABS: HEMATOCRIT 27.8 % (42.0-52.0); HEMOGLOBIN 8.5 g/dl (13.5-17.5); MEAN CORPUSCULAR HEMOGLOBIN 27.4 pg (27.0-33.0); MEAN CORPUSCULAR HGB CONC 30.6 g/dl (32.0-36.5); MEAN CORPUSCULAR VOLUME 89.7 fl (80.0-96.0); PLATELET COUNT, AUTOMATED 202 10^3/uL (150-450); WHITE BLOOD COUNT 10.8 10^3/uL (4.0-10.0)
[2020-04-01] MEDS: ADVAIR HFA 230/21MCG INHALER INH SCH ×2 (07:16→20:15)
[2020-04-01 07:32] LABS: BLOOD UREA NITROGEN 31 MG/DL (7-18); CALCIUM LEVEL 7.9 MG/DL (8.8-10.2); CARBON DIOXIDE LEVEL 39 MEQ/L (21-32); CHLORIDE LEVEL 94 MEQ/L (98-107); CREATININE FOR GFR 1.07 MG/DL (0.70-1.30); GLOMERULAR FILTRATION RATE > 60.0 (>42); GLUCOSE, FASTING 102 MG/DL (70-100); POTASSIUM SERUM 3.6 MEQ/L (3.5-5.1); SODIUM LEVEL 138 MEQ/L (136-145)
[2020-04-01] MEDS: ACETAMINOPHEN TAB 650MG DOSE (2X325MG) PO PRN (07:57)
[2020-04-01] MEDS: ALVIMOPAN 12 MG CAPSULE (ENTEREG) PO SCH ×2 (07:58→21:24)
[2020-04-01] MEDS: TAMSULOSIN 0.4 MG CAP PO SCH (07:58)
[2020-04-01] MEDS: MOM 30ML SUSPENSION UDC PO SCH (07:58)
[2020-04-01] MEDS: TORSEMIDE 20 MG TAB PO SCH ×2 (07:58→16:46)
[2020-04-01] MEDS: SUCRALFATE 1 GM TAB PO SCH ×2 (07:58→21:24)
[2020-04-01] MEDS: predniSONE 20 MG TAB PO SCH (07:59)
[2020-04-01] MEDS: LEVOTHYROXINE 75MCG TABLET (0.075MG) PO SCH (07:59)
[2020-04-01] MEDS: FERROUS SULFATE 325MG TAB PO SCH ×2 (07:59→21:24)
[2020-04-01] MEDS: DOCUSATE SODIUM 100MG CAPSULE PO SCH ×2 (07:59→21:24)
[2020-04-01] MEDS: PANTOPRAZOLE 40MG TAB (PROTONIX) PO SCH ×2 (07:59→21:24)
[2020-04-01] MEDS: ASPIRIN 81 MG ENTERIC TAB PO SCH ×2 (07:59→21:23)
[2020-04-01] MEDS: FINASTERIDE 5 MG TAB PO SCH (08:00)
[2020-04-01] MEDS: NICOTINE 21MG/24HR 1 EA TRANSDERMAL TD SCH (08:00)
[2020-04-01] MEDS: METAMUCIL (PSYLLIUM) PACKET PO SCH (08:00)
[2020-04-01] MEDS: SPIRONOLACTONE 25 MG TAB PO SCH (08:00)
[2020-04-01] MEDS: DICLOFENAC EPOLAMINE 1.3 % PATCH TOP SCH ×2 (08:00→21:23)
--- NOTE | 2020-04-01 08:52 | IPNPDOC ---
Text Note Date of Service The patient was seen on 04/01/20. NOTE He tolerated soft diet yesterday and has had 2 fairly large bowel movement s dain. He looks comfortable. He denies any abdominal pain, discomfort, nausea or bloating. Vital signs stable Abdomen is soft, minimally distended, nontender on palpation Impression and plan Postop ileus resolved Intratrochanteric fracture status post CRIF/TFN Will advance to regular diet May benefit from intermittent laxatives or stool softeners No further surgical issues. We will sign off. VS,Fishbone, I+O VS, Fishbone, I+O Laboratory Tests 04/01/20 06:49 Vital Signs Date Time Temp Pulse Resp B/P (MAP) Pulse Ox O2 Delivery O2 Flow Rate FiO2 04/01/20 06:00 97.8 85 18 130/63 (85) 96 Nasal Cannula 4.0 03/27/20 13:20 35 I&O- Last 24 Hours up to 6 AM 04/01/20 06:00 Intake Total 1320 ml Output Total 2500 ml Balance -1180 ml MARIO ALDANA MD Apr 01, 2020 08:52
[2020-04-01 10:43] VITALS: O2SAT 92
--- NOTE | 2020-04-01 13:50 | IPNPDOC ---
Text Note Date of Service The patient was seen on 04/01/20. NOTE SUBJECTIVE: -On 4 L NC this AM -Tolerating diet OBJECTIVE: VITAL SIGNS: Please see below. HDS, afebrile, on 4L NC GEN: NAD HEENT:NCAT, EOM intact, nasal cannula in place CVS: RRR, no murmurs, rubs or gallops, + lower extremity edema LUNGS: mild scattered exp wheezing, persistent posterior bibasilar crackles, no rhonchi ABD: normoactive sounds, soft, NTND EXTREMITIES: bilateral LE edema, otherwise WWP SKIN: healing incisions on R hip NEURO: CN 2-12 are grossly intact, no focal deficits, AAOx 3 LABORATORY DATA: Reviewed. WBC 10.8 hgb 8.5 platelets 202 Na 138 K 3.6 Cr 1.07 Microbiology: Chronic trujillo, straight cath collection - REFLEX URINE CULTURE Final Organism 1 PSEUDOMONAS AERUGINOSA COLONY COUNT 100,000 CFU/ml Organism 2 KLEBSIELLA OXYTOCA COLONY COUNT 100,000 CFU/ml Organism 3 ESCHERICHIA COLI COLONY COUNT 100,000 CFU/ml Organism 4 SERRATIA MARCESCENS COLONY COUNT 100,000 CFU/ml Organism 5 ENTEROCOCCUS FAECALIS COLONY COUNT 100,000 CFU/ml Organism 6 STREP GALLOLYTICUS SSP NICOLAS COLONY COUNT 100,000 CFU/ml IMAGING: CXR 03/28/20: Chronic changes. Mild superimposed atelectasis/infiltrate left lung base in the retrocardiac region. AXR: developing ileus MICROBIOLOGY: Please see below. ASSESSMENT: 75 yr old smoker w a hx of CAD, BPH, COPD with chronic O2 dependent respiratory failure on home 3L NC, CKD 3, HFpEF, Osteoporosis, Pulmonary HTN / Cor Pulmonale, Hypothyroidism, Chronic Anemia, Murphy's esophagus / GERD, Chronic back pain, Dementia, BPH and unsteady gait who presented to the hospital for evaluation after missing his chair while trying to sit down and landing on his right side he will be admitted for management of R femur fx, with postop course c/b acute on chronic hypoxemic respiratory failure with acute on chronic HFpEF, COPD exacerbation and presumed PNA and mixed rody bacteriuria, and an ileus. PLAN: #Acute on chronic respiratory failure likely multifactorial, currently with susp icion of acute on chronic HFpEF, COPD exacerbation and possible PNA. -Baseline patient uses 3 L at home, currently on 4L NC -CXR showed superimposed atelectasis/infiltrate left lung base in the retroc ardiac region. -c/w 80 torsemide PO BID. -Continue home spironolactone. -strict I/Os -Day 5 of empiric levofloxacin IV daily. End course today. -Incentive spirometer ordered Q2H while awake. -duonebs ATC, albuterol PRN. -Prednisone 40 QD, day 5 of steroids. End course today COPD exacerbation -supplemental O2, with goal O2 88% -Incentive spirometer ordered Q2H while awake. -duonebs ATC, albuterol PRN. -Prednisone 40mg PO QD, day 5 of steroids. End course today Acute on chronic HFpEF -Continue home torsemide 80mg PO BID. -Continued home spironolactone. -strict I/Os -daily weights Presumed PNA -Day 5 of empiric levofloxacin IV daily, ending course today Ileus: -s/p NGT removal, slowly advancing diet -Advanced diet per surgery recommendations. Appreciate recs. -Was started on entereg by Dr. Wei #Right femur fracture s/p mechanical Fall -POD 5 for closed reduction and fixation of hip fracture with cephalomedullary implant/TFN nail -Hx of unsteady gait, osteoporosis -Unlikely syncopal episode, no documented loss of consciousness per patient. -Pain control, IS Q2H while awake, PT/OT -C/w calcium with vitamin D -Ortho following closely. #Acute on Chronic Anemia -H/H slow decline, no evidence of acute bleeding. will monitor, with goal hgb >8. #Asymptomatic Bacteruria / Chronic colonization of chronic [place] -Do not treat. #CAD -C/w Aspirin, nitroglycerine #BPH -chronic trujillo -C/w Tamsulosin, finasteride #CKD 3 at baseline #Chronic back pain -C/w Percocet, Acetaminophen & Flector patch #Dementia -At baseline -PFS consult to assess his living situation and determine if he needs SNF placement #Hypothyroidism -TSH Dec 2019 0.726 -C/w levothyroxine #GERD Murphy's -PPI and Carafate #DVT Px -SCDs DISPOSITION: PT/OT to assess. Poss rehab vs. SNF, pending PT/OT final recs. VS,Fishbone, I+O VS, Fishbone, I+O Laboratory Tests 04/01/20 06:49 Vital Signs Date Time Temp Pulse Resp B/P (MAP) Pulse Ox O2 Delivery O2 Flow Rate FiO2 04/01/20 06:00 97.8 85 18 130/63 (85) 96 Nasal Cannula 4.0 03/27/20 13:20 35 I&O- Last 24 Hours up to 6 AM 04/01/20 06:00 Intake Total 1320 ml Output Total 2500 ml Balance -1180 ml ANGELA LANG MD Apr 01, 2020 09:01
[2020-04-01 14:00] VITALS: BP 122/64
[2020-04-01] MEDS ORDERED: LevoFLOXacin 750 MG TABLET PO ONE (15:15)
[2020-04-01 20:00] VITALS: BP 107/58
[2020-04-01 21:00] VITALS: O2SAT 98
[2020-04-01] MEDS: prednisoLONE ACET 1% OPHTH SUSP 5ML OS SCH (21:24)
[2020-04-02] MEDS: IPRATROPIUM 0.5MG/ALBUTEROL 2.5MG INH SOL UD 3ML (DUONEB) NEB SCH ×6 (03:47→23:53)
[2020-04-02 06:52] VITALS: BP 118/77
[2020-04-02] MEDS: PERCOCET 5MG/325MG TAB PO PRN (06:54)
[2020-04-02] MEDS ORDERED: ECOT81TA5 PO (07:09)
[2020-04-02 07:23] LABS: HEMATOCRIT 30.2 % (42.0-52.0); HEMOGLOBIN 9.2 g/dl (13.5-17.5); MEAN CORPUSCULAR HEMOGLOBIN 27.7 pg (27.0-33.0); MEAN CORPUSCULAR HGB CONC 30.5 g/dl (32.0-36.5); PLATELET COUNT, AUTOMATED 212 10^3/uL (150-450); RED BLOOD COUNT 3.32 10^6/uL (4.30-6.10)
[2020-04-02] MEDS: ADVAIR HFA 230/21MCG INHALER INH SCH ×2 (07:25→19:56)
[2020-04-02] MEDS: predniSONE 20 MG TAB PO SCH (07:48)
[2020-04-02] MEDS: TAMSULOSIN 0.4 MG CAP PO SCH (07:48)
[2020-04-02] MEDS: FERROUS SULFATE 325MG TAB PO SCH ×2 (07:48→20:42)
[2020-04-02] MEDS: ASPIRIN 81 MG ENTERIC TAB PO SCH ×2 (07:49→20:42)
[2020-04-02] MEDS: FINASTERIDE 5 MG TAB PO SCH (07:49)
[2020-04-02] MEDS: TORSEMIDE 20 MG TAB PO SCH ×2 (07:49→17:06)
[2020-04-02] MEDS: PANTOPRAZOLE 40MG TAB (PROTONIX) PO SCH ×2 (07:49→20:42)
[2020-04-02] MEDS: ALVIMOPAN 12 MG CAPSULE (ENTEREG) PO SCH ×2 (07:49→20:42)
[2020-04-02] MEDS: SPIRONOLACTONE 25 MG TAB PO SCH (07:50)
[2020-04-02] MEDS: DOCUSATE SODIUM 100MG CAPSULE PO SCH ×2 (07:50→20:42)
[2020-04-02] MEDS: SUCRALFATE 1 GM TAB PO SCH ×2 (07:50→20:42)
[2020-04-02] MEDS: DICLOFENAC EPOLAMINE 1.3 % PATCH TOP SCH ×3 (07:50→20:49)
[2020-04-02] MEDS: NICOTINE 21MG/24HR 1 EA TRANSDERMAL TD SCH (07:50)
[2020-04-02] MEDS: MOM 30ML SUSPENSION UDC PO SCH (07:51)
[2020-04-02] MEDS: METAMUCIL (PSYLLIUM) PACKET PO SCH (07:52)
[2020-04-02] MEDS: prednisoLONE ACET 1% OPHTH SUSP 5ML OS SCH ×2 (07:52→20:43)
[2020-04-02] MEDS: LEVOTHYROXINE 75MCG TABLET (0.075MG) PO SCH (09:14)
[2020-04-02 11:39] LABS: BLOOD UREA NITROGEN 35 MG/DL (7-18); CALCIUM LEVEL 8.6 MG/DL (8.8-10.2); CARBON DIOXIDE LEVEL 40 MEQ/L (21-32); CHLORIDE LEVEL 92 MEQ/L (98-107); CREATININE FOR GFR 1.14 MG/DL (0.70-1.30); GLOMERULAR FILTRATION RATE > 60.0 (>42); GLUCOSE, FASTING 139 MG/DL (70-100); POTASSIUM SERUM 3.9 MEQ/L (3.5-5.1); SODIUM LEVEL 135 MEQ/L (136-145)
[2020-04-02 14:00] VITALS: BP 119/55
--- NOTE | 2020-04-02 14:15 | IPNPDOC ---
Text Note Date of Service The patient was seen on 04/02/20. NOTE SUBJECTIVE: -On 4 L NC this AM -Tolerating diet -No complaints this morning, eager to get home. Discussed that he will need rehab prior to home discharge OBJECTIVE: VITAL SIGNS: Please see below. HDS, afebrile, on 4L NC GEN: NAD HEENT:NCAT, EOM intact, nasal cannula in place CVS: RRR, no murmurs, rubs or gallops, + lower extremity edema LUNGS: mild scattered exp wheezing, bibasilar crackles, no rhonchi ABD: normoactive sounds, soft, NTND EXTREMITIES: bilateral LE edema, otherwise WWP SKIN: healing incisions on R hip NEURO: CN 2-12 are grossly intact, no focal deficits, AAOx 3 LABORATORY DATA: Reviewed. WBC 15 hgb 9.2 platelets 212 Na 1138 K 3.6 Cr 1.07 Microbiology: Chronic trujillo, straight cath collection - REFLEX URINE CULTURE Final Organism 1 PSEUDOMONAS AERUGINOSA COLONY COUNT 100,000 CFU/ml Organism 2 KLEBSIELLA OXYTOCA COLONY COUNT 100,000 CFU/ml Organism 3 ESCHERICHIA COLI COLONY COUNT 100,000 CFU/ml Organism 4 SERRATIA MARCESCENS COLONY COUNT 100,000 CFU/ml Organism 5 ENTEROCOCCUS FAECALIS COLONY COUNT 100,000 CFU/ml Organism 6 STREP GALLOLYTICUS SSP NICOLAS COLONY COUNT 100,000 CFU/ml IMAGING: CXR 03/28/20: Chronic changes. Mild superimposed atelectasis/infiltrate left lung base in the retrocardiac region. AXR: developing ileus MICROBIOLOGY: Please see below. ASSESSMENT: 75 yr old smoker w a hx of CAD, BPH, COPD with chronic O2 dependent respiratory failure on home 3L NC, CKD 3, HFpEF, Osteoporosis, Pulmonary HTN / Cor Pulmonale, Hypothyroidism, Chronic Anemia, Murphy's esophagus / GERD, Chronic back pain, Dementia, BPH and unsteady gait who presented to the hospital for evaluation after missing his chair while trying to sit down and landing on his right side he will be admitted for management of R femur fx, with postop course c/b acute on chronic hypoxemic respiratory failure with acute on chronic HFpEF, COPD exacerbation and presumed PNA and mixed rody bacteriuria, and an ileus. PLAN: #Acute on chronic respiratory failure likely multifactorial, currently with suspicion of acute on chronic HFpEF, COPD exacerbation and possible PNA. -Baseline patient uses 3 L at home, currently on 4L NC -CXR showed superimposed atelectasis/infiltrate left lung base in the retrocardiac region. -c/w 80 torsemide PO BID. -Continue home spironolactone. -strict I/Os -s/p 5d of empiric levofloxacin -Incentive spirometer ordered Q2H while awake. -duonebs ATC, albuterol PRN. -s/p 5d of steroids. Will monitor leukocytosis, likely 2/2 steroids. COPD exacerbation -supplemental O2, with goal O2 88% -Incentive spirometer ordered Q2H while awake. -duonebs ATC, albuterol PRN. -s/p 5d of steroids Acute on chronic HFpEF -Continue home torsemide 80mg PO BID. -Continued home spironolactone. -strict I/Os -daily weights Presumed PNA -s/p 5d of levofloxacin Ileus: -s/p NGT removal, slowly advancing diet -Advanced diet per surgery recommendations. Now on a regular diet -Was started on entereg by Dr. Wei #Right femur fracture s/p mechanical Fall -POD 6 for closed reduction and fixation of hip fracture with cephalomedullary implant/TFN nail -Hx of unsteady gait, osteoporosis -Unlikely syncopal episode, no documented loss of consciousness per patient. -Pain control, IS Q2H while awake, PT/OT -C/w calcium with vitamin D -Ortho following closely. #Acute on Chronic Anemia -H/H slow decline, no evidence of acute bleeding. will monitor, with goal hgb >8. #Asymptomatic Bacteruria / Chronic colonization of chronic [place] -Do not treat. #CAD -C/w Aspirin, nitroglycerine #BPH -chronic trujillo -C/w Tamsulosin, finasteride #CKD 3 at baseline #Chronic back pain -C/w Percocet, Acetaminophen & Flector patch #Dementia -At baseline -PFS consult to assess his living situation and determine if he needs SNF placement #Hypothyroidism -TSH Dec 2019 0.726 -C/w levothyroxine #GERD Murphy's -PPI and Carafate #DVT Px -SCDs DISPOSITION: PT/OT to assess. Poss rehab vs. SNF, pending PT/OT final recs. VS,Fishbone, I+O VS, Fishbone, I+O Laboratory Tests 04/02/20 06:57 Vital Signs Date Time Temp Pulse Resp B/P (MAP) Pulse Ox O2 Delivery O2 Flow Rate FiO2 04/02/20 07:52 18 04/02/20 06:52 98.6 93 118/77 (91) 96 Nasal Cannula 4.0 03/27/20 13:20 35 I&O- Last 24 Hours up to 6 AM 04/02/20 06:00 Intake Total 2070 ml Output Total 1400 ml Balance 670 ml ANGELA LANG MD Apr 02, 2020 08:03
[2020-04-02 20:17] VITALS: BP 117/59
[2020-04-02 20:42] VITALS: O2SAT 91
[2020-04-03] MEDS: ACETAMINOPHEN TAB 650MG DOSE (2X325MG) PO PRN (01:15)
[2020-04-03] MEDS: IPRATROPIUM 0.5MG/ALBUTEROL 2.5MG INH SOL UD 3ML (DUONEB) NEB SCH ×6 (03:21→23:21)
[2020-04-03] MEDS: LEVOTHYROXINE 75MCG TABLET (0.075MG) PO SCH (05:26)
[2020-04-03 06:37] VITALS: BP 147/65
[2020-04-03] MEDS: ADVAIR HFA 230/21MCG INHALER INH SCH ×2 (07:13→20:06)
[2020-04-03 07:26] LABS: HEMATOCRIT 29.4 % (42.0-52.0); HEMOGLOBIN 8.8 g/dl (13.5-17.5); MEAN CORPUSCULAR HEMOGLOBIN 27.2 pg (27.0-33.0); MEAN CORPUSCULAR HGB CONC 29.9 g/dl (32.0-36.5); MEAN CORPUSCULAR VOLUME 90.7 fl (80.0-96.0); PLATELET COUNT, AUTOMATED 224 10^3/uL (150-450); RED BLOOD COUNT 3.24 10^6/uL (4.30-6.10); WHITE BLOOD COUNT 15.3 10^3/uL (4.0-10.0)
[2020-04-03 07:51] LABS: BLOOD UREA NITROGEN 34 MG/DL (7-18); CALCIUM LEVEL 8.5 MG/DL (8.8-10.2); CARBON DIOXIDE LEVEL 40 MEQ/L (21-32); CHLORIDE LEVEL 91 MEQ/L (98-107); CREATININE FOR GFR 1.18 MG/DL (0.70-1.30); GLOMERULAR FILTRATION RATE > 60.0 (>42); GLUCOSE, FASTING 106 MG/DL (70-100); POTASSIUM SERUM 3.9 MEQ/L (3.5-5.1); SODIUM LEVEL 135 MEQ/L (136-145)
[2020-04-03] MEDS: ASPIRIN 81 MG ENTERIC TAB PO SCH ×2 (08:22→20:01)
[2020-04-03] MEDS: ALVIMOPAN 12 MG CAPSULE (ENTEREG) PO SCH ×2 (08:22→20:01)
[2020-04-03] MEDS: SUCRALFATE 1 GM TAB PO SCH ×2 (08:22→20:01)
[2020-04-03] MEDS: DICLOFENAC EPOLAMINE 1.3 % PATCH TOP SCH ×3 (08:22→20:15)
[2020-04-03] MEDS: NICOTINE 21MG/24HR 1 EA TRANSDERMAL TD SCH (08:23)
[2020-04-03] MEDS: MOM 30ML SUSPENSION UDC PO SCH (08:23)
[2020-04-03] MEDS: FERROUS SULFATE 325MG TAB PO SCH ×2 (08:23→20:01)
[2020-04-03] MEDS: TORSEMIDE 20 MG TAB PO SCH ×2 (08:23→16:55)
[2020-04-03] MEDS: SPIRONOLACTONE 25 MG TAB PO SCH (08:24)
[2020-04-03] MEDS: TAMSULOSIN 0.4 MG CAP PO SCH (08:24)
[2020-04-03] MEDS: prednisoLONE ACET 1% OPHTH SUSP 5ML OS SCH ×2 (08:24→20:02)
[2020-04-03] MEDS: PANTOPRAZOLE 40MG TAB (PROTONIX) PO SCH ×2 (08:24→20:02)
[2020-04-03] MEDS: FINASTERIDE 5 MG TAB PO SCH (08:24)
[2020-04-03] MEDS: DOCUSATE SODIUM 100MG CAPSULE PO SCH ×2 (08:24→20:02)
[2020-04-03] MEDS: METAMUCIL (PSYLLIUM) PACKET PO SCH (08:24)
--- NOTE | 2020-04-03 10:26 | IPNPDOC ---
Text Note Date of Service The patient was seen on 04/03/20. NOTE SUBJECTIVE: -On 4 L NC -Tolerating diet -No complaints this morning OBJECTIVE: VITAL SIGNS: Please see below. HDS, afebrile, on 4L NC GEN: NAD HEENT:NCAT, EOM intact, nasal cannula in place CVS: RRR, no murmurs, rubs or gallops, + lower extremity edema LUNGS: mild scattered exp wheezing, bibasilar crackles, no rhonchi ABD: normoactive sounds, soft, NTND EXTREMITIES: bilateral LE edema, otherwise WWP SKIN: healing incisions on R hip NEURO: CN 2-12 are grossly intact, no focal deficits, AAOx 3 LABORATORY DATA: Reviewed. Stable WBC 15.3 hgb 8.8 platelets 224 Na 135 K 3.9 Cr 1.18 Microbiology: Chronic trujillo, straight cath collection - REFLEX URINE CULTURE Final Organism 1 PSEUDOMONAS AERUGINOSA COLONY COUNT 100,000 CFU/ml Organism 2 KLEBSIELLA OXYTOCA COLONY COUNT 100,000 CFU/ml Organism 3 ESCHERICHIA COLI COLONY COUNT 100,000 CFU/ml Organism 4 SERRATIA MARCESCENS COLONY COUNT 100,000 CFU/ml Organism 5 ENTEROCOCCUS FAECALIS COLONY COUNT 100,000 CFU/ml Organism 6 STREP GALLOLYTICUS SSP NICOLAS COLONY COUNT 100,000 CFU/ml IMAGING: CXR 03/28/20: Chronic changes. Mild superimposed atelectasis/infiltrate left lung base in the retrocardiac region. AXR: developing ileus MICROBIOLOGY: Please see below. ASSESSMENT: 75 yr old smoker w a hx of CAD, BPH, COPD with chronic O2 dependent respiratory failure on home 3L NC, CKD 3, HFpEF, Osteoporosis, Pulmonary HTN / Cor Pulmonale, Hypothyroidism, Chronic Anemia, Murphy's esophagus / GERD, Chronic back pain, Dementia, BPH and unsteady gait who presented to the hospital for ev aluation after missing his chair while trying to sit down and landing on his right side he will be admitted for management of R femur fx, with postop course c/b acute on chronic hypoxemic respiratory failure with acute on chronic HFpEF, COPD exacerbation and presumed PNA and mixed rody bacteriuria, and an ileus. PLAN: #Acute on chronic respiratory failure likely multifactorial, currently with suspicion of acute on chronic HFpEF, COPD exacerbation and possible PNA. -Baseline patient uses 3 L at home, currently on 4L NC -CXR showed superimposed atelectasis/infiltrate left lung base in the re trocardiac region. -c/w 80 torsemide PO BID. -Continue home spironolactone. -strict I/Os -s/p 5d of empiric levofloxacin -Incentive spirometer ordered Q2H while awake. -duonebs ATC, albuterol PRN. -s/p 5d of steroids. Will monitor leukocytosis, likely 2/2 steroids. No new symptoms with stable hypoxemia. COPD exacerbation -supplemental O2, with goal O2 88% -Incentive spirometer ordered Q2H while awake. -duonebs ATC, albuterol PRN. -s/p 5d of steroids Acute on chronic HFpEF -Continue home torsemide 80mg PO BID. -Continued home spironolactone. -strict I/Os -daily weights Presumed PNA -s/p 5d of levofloxacin Ileus: -s/p NGT removal, slowly advancing diet -Advanced diet per surgery recommendations. Now on a regular diet -Was started on entereg by Dr. Wei #Right femur fracture s/p mechanical Fall -POD 6 for closed reduction and fixation of hip fracture with cephalomedullary i mplant/TFN nail -Hx of unsteady gait, osteoporosis -Unlikely syncopal episode, no documented loss of consciousness per patient. -Pain control, IS Q2H while awake, PT/OT -C/w calcium with vitamin D -Ortho following closely. #Acute on Chronic Anemia -H/H slow decline, no evidence of acute bleeding. will monitor, with goal hgb >8. #Asymptomatic Bacteruria / Chronic colonization of chronic Trujillo -Do not treat. #CAD -C/w Aspirin, nitroglycerine #BPH -chronic trujillo -C/w Tamsulosin, finasteride #CKD 3 at baseline #Chronic back pain -C/w Percocet, Acetaminophen & Flector patch #Dementia -At baseline -PFS consult to assess his living situation and determine if he needs SNF placement #Hypothyroidism -TSH Dec 2019 0.726 -C/w levothyroxine #GERD Murphy's -PPI and Carafate #DVT Px -SCDs DISPOSITION: PT/OT assessing rehab vs. SNF, pending PT/OT final recs. VS,Fishbone, I+O VS, Fishbone, I+O Laboratory Tests 04/03/20 06:56 Vital Signs Date Time Temp Pulse Resp B/P (MAP) Pulse Ox O2 Delivery O2 Flow Rate FiO2 04/03/20 06:37 98.6 88 18 147/65 (92) 95 Nasal Cannula 4.0 I&O- Last 24 Hours up to 6 AM 04/03/20 06:00 Intake Total 2200 ml Output Total 3075 ml Balance -875 ml ANGELA LANG MD Apr 03, 2020 08:21
[2020-04-03 11:00] VITALS: O2SAT 94
[2020-04-03] MEDS: PERCOCET 5MG/325MG TAB PO PRN (11:18)
[2020-04-03 14:00] VITALS: BP 102/62
[2020-04-03 21:00] VITALS: O2SAT 94
[2020-04-03 22:00] VITALS: BP 105/61
[2020-04-04] MEDS: RAMELTEON 8 MG TAB (ROZEREM) PO PRN (01:31)
[2020-04-04] MEDS: IPRATROPIUM 0.5MG/ALBUTEROL 2.5MG INH SOL UD 3ML (DUONEB) NEB SCH ×6 (02:24→23:44)
[2020-04-04] MEDS: LEVOTHYROXINE 75MCG TABLET (0.075MG) PO SCH (05:44)
[2020-04-04 06:00] VITALS: BP 139/69
[2020-04-04 06:54] LABS: HEMATOCRIT 28.6 % (42.0-52.0); HEMOGLOBIN 8.9 g/dl (13.5-17.5); MEAN CORPUSCULAR HEMOGLOBIN 28.1 pg (27.0-33.0); MEAN CORPUSCULAR HGB CONC 31.1 g/dl (32.0-36.5); MEAN CORPUSCULAR VOLUME 90.2 fl (80.0-96.0); PLATELET COUNT, AUTOMATED 209 10^3/uL (150-450); RED BLOOD COUNT 3.17 10^6/uL (4.30-6.10); WHITE BLOOD COUNT 20.8 10^3/uL (4.0-10.0)
[2020-04-04 07:16] LABS: BLOOD UREA NITROGEN 32 MG/DL (7-18); CALCIUM LEVEL 8.7 MG/DL (8.8-10.2); CARBON DIOXIDE LEVEL 38 MEQ/L (21-32); CHLORIDE LEVEL 92 MEQ/L (98-107); CREATININE FOR GFR 1.16 MG/DL (0.70-1.30); GLOMERULAR FILTRATION RATE > 60.0 (>42); GLUCOSE, FASTING 113 MG/DL (70-100); POTASSIUM SERUM 4.3 MEQ/L (3.5-5.1); SODIUM LEVEL 134 MEQ/L (136-145)
[2020-04-04] MEDS: ADVAIR HFA 230/21MCG INHALER INH SCH ×2 (07:48→19:53)
--- NOTE | 2020-04-04 08:47 | REP ---
INDICATION: leukocytosis. COMPARISON: Comparison chest x-ray March 28, 2020.. TECHNIQUE: Upright AP single view. FINDINGS: Multilead pacemaker is again noted in the right heart view of the left side. There are multiple old bilateral rib fractures. Aorta is calcific and tortuous as before. Heart is enlarged unchanged. There is no evidence of pleural effusion. Left hemidiaphragm is slightly elevated also unchanged. Pleural angles are sharp. Pulmonary vascular markings are somewhat increased unchanged. IMPRESSION: No acute infiltrate. Cardiomegaly with multilead pacemaker. Elevated left hemidiaphragm. Some vascular congestion. <Electronically signed by Winston Blanco > 04/04/20 [id number]
[2020-04-04] MEDS: METAMUCIL (PSYLLIUM) PACKET PO SCH (09:00)
[2020-04-04] MEDS: PANTOPRAZOLE 40MG TAB (PROTONIX) PO SCH ×2 (09:32→21:56)
[2020-04-04] MEDS: ALVIMOPAN 12 MG CAPSULE (ENTEREG) PO SCH ×2 (09:32→21:56)
[2020-04-04] MEDS: FINASTERIDE 5 MG TAB PO SCH (09:32)
[2020-04-04] MEDS: DOCUSATE SODIUM 100MG CAPSULE PO SCH ×2 (09:32→21:56)
[2020-04-04] MEDS: TAMSULOSIN 0.4 MG CAP PO SCH (09:32)
[2020-04-04] MEDS: MOM 30ML SUSPENSION UDC PO SCH (09:32)
[2020-04-04] MEDS: ASPIRIN 81 MG ENTERIC TAB PO SCH ×2 (09:32→21:56)
[2020-04-04] MEDS: FERROUS SULFATE 325MG TAB PO SCH ×2 (09:32→21:56)
[2020-04-04] MEDS: SUCRALFATE 1 GM TAB PO SCH ×2 (09:32→21:56)
[2020-04-04] MEDS: SPIRONOLACTONE 25 MG TAB PO SCH (09:32)
[2020-04-04] MEDS: DICLOFENAC EPOLAMINE 1.3 % PATCH TOP SCH ×2 (09:33→21:57)
[2020-04-04] MEDS: prednisoLONE ACET 1% OPHTH SUSP 5ML OS SCH ×2 (09:33→21:57)
[2020-04-04] MEDS: TORSEMIDE 20 MG TAB PO SCH ×2 (09:33→16:57)
[2020-04-04] MEDS: NICOTINE 21MG/24HR 1 EA TRANSDERMAL TD SCH (09:33)
[2020-04-04] MEDS: PERCOCET 5MG/325MG TAB PO PRN ×2 (12:00→19:32)
--- NOTE | 2020-04-04 12:58 | IPNPDOC ---
Text Note Date of Service The patient was seen on 04/04/20. NOTE SUBJECTIVE: -On 4 L NC -Tolerating diet -No complaints this morning despite worsening leukocytosis OBJECTIVE: VITAL SIGNS: Please see below. HDS, afebrile, on 4L NC GEN: NAD HEENT:NCAT, EOM intact, nasal cannula in place CVS: RRR, no murmurs, rubs or gallops, + lower extremity edema LUNGS: mild scattered exp wheezing, bibasilar crackles, no rhonchi ABD: normoactive sounds, soft, NTND EXTREMITIES: bilateral LE edema, otherwise WWP SKIN: healing incisions on R hip NEURO: CN 2-12 are grossly intact, no focal deficits, AAOx 3 LABORATORY DATA: Reviewed. Stable WBC 20.8 hgb 8.9 platelets 209 Na 134 K 4.7 Cr 1.16 Microbiology: Chronic trujillo, straight cath collection - REFLEX URINE CULTURE Final Organism 1 PSEUDOMONAS AERUGINOSA COLONY COUNT 100,000 CFU/ml Organism 2 KLEBSIELLA OXYTOCA COLONY COUNT 100,000 CFU/ml Organism 3 ESCHERICHIA COLI COLONY COUNT 100,000 CFU/ml Organism 4 SERRATIA MARCESCENS COLONY COUNT 100,000 CFU/ml Organism 5 ENTEROCOCCUS FAECALIS COLONY COUNT 100,000 CFU/ml Organism 6 STREP GALLOLYTICUS SSP NICOLAS COLONY COUNT 100,000 CFU/ml IMAGING: CXR 03/28/20: Chronic changes. Mild superimposed atelectasis/infiltrate left lung base in the retrocardiac region. AXR: developing ileus MICROBIOLOGY: Please see below. ASSESSMENT: 75 yr old smoker w a hx of CAD, BPH, COPD with chronic O2 dependent respiratory failure on home 3L NC, CKD 3, HFpEF, Osteoporosis, Pulmonary HTN / Cor Pulmonale, Hypothyroidism, Chronic Anemia, Murphy's esophagus / GERD, Chronic back pain, Dementia, BPH and unsteady gait who presented to the hospital for evaluation after missing his chair while trying to sit down and landing on his right side he will be admitted for management of R femur fx, with postop course c/b acute on chronic hypoxemic respiratory failure with acute on chronic HFpEF, COPD exacerbation and presumed PNA and mixed rody bacteriuria, and an ileus. Now stable however with rising leukocytosis with a stable examination. PLAN: Rising leukocyotosis: -HDS, afebrile, stably on 4L NC, will monitor vitals closely -CXR -UA would not be useful given chronic colonization in the setting a chronic trujillo -abdominal exam is stable -s/p steroids, possibly steroid demargination effect, however would be late, wi ll monitor for now #Acute on chronic respiratory failure likely multifactorial, currently with susp icion of acute on chronic HFpEF, COPD exacerbation and possible PNA. -Baseline patient uses 3 L at home, currently on 4L NC -CXR showed superimposed atelectasis/infiltrate left lung base in the retroc ardiac region. -c/w 80 torsemide PO BID. -Continue home spironolactone. -strict I/Os -s/p 5d of empiric levofloxacin -Incentive spirometer ordered Q2H while awake. -duonebs ATC, albuterol PRN. -s/p 5d of steroids. Will monitor leukocytosis, likely 2/2 steroids. No new symptoms with stable hypoxemia. COPD exacerbation -supplemental O2, with goal O2 88% -Incentive spirometer ordered Q2H while awake. -duonebs ATC, albuterol PRN. -s/p 5d of steroids Acute on chronic HFpEF -Continue home torsemide 80mg PO BID. -Continued home spironolactone. -strict I/Os -daily weights Presumed PNA -s/p 5d of levofloxacin Ileus: -s/p NGT removal, slowly advancing diet -Advanced diet per surgery recommendations. Now on a regular diet -Was started on entereg by Dr. Wei #Right femur fracture s/p mechanical Fall -POD 7 for closed reduction and fixation of hip fracture with cephalomedullary implant/TFN nail -Hx of unsteady gait, osteoporosis -Unlikely syncopal episode, no documented loss of consciousness per patient. -Pain control, IS Q2H while awake, PT/OT -C/w calcium with vitamin D -Ortho following closely. #Acute on Chronic Anemia -H/H slow decline, no evidence of acute bleeding. will monitor, with goal hgb >8. #Asymptomatic Bacteruria / Chronic colonization of chronic Trujillo -Do not treat. #CAD -C/w Aspirin, nitroglycerine #BPH -chronic trujillo -C/w Tamsulosin, finasteride #CKD 3 at baseline #Chronic back pain -C/w Percocet, Acetaminophen & Flector patch #Dementia -At baseline -PFS consult to assess his living situation and determine if he needs SNF placement #Hypothyroidism -TSH Dec 2019 0.726 -C/w levothyroxine #GERD Murphy's -PPI and Carafate #DVT Px -SCDs DISPOSITION: Monitoring rising leukocytosis. PT/OT assessing rehab vs. SNF, pending PT/OT final recs. VS,Fishbone, I+O VS, Fishbone, I+O Laboratory Tests 04/04/20 06:30 Vital Signs Date Time Temp Pulse Resp B/P (MAP) Pulse Ox O2 Delivery O2 Flow Rate FiO2 04/04/20 06:00 98.2 76 18 139/69 (92) 94 Nasal Cannula 4.0 I&O- Last 24 Hours up to 6 AM 04/04/20 06:00 Intake Total 3020 ml Output Total 2850 ml Balance 170 ml ANGELA LANG MD Apr 04, 2020 08:35
[2020-04-04 14:00] VITALS: BP 101/59
[2020-04-04 20:00] VITALS: BP 107/58
[2020-04-05] MEDS: PERCOCET 5MG/325MG TAB PO PRN ×2 (02:16→18:41)
[2020-04-05] MEDS: IPRATROPIUM 0.5MG/ALBUTEROL 2.5MG INH SOL UD 3ML (DUONEB) NEB SCH ×6 (03:19→23:40)
[2020-04-05] MEDS: LEVOTHYROXINE 75MCG TABLET (0.075MG) PO SCH (05:50)
[2020-04-05 06:00] VITALS: BP 107/58
[2020-04-05] MEDS: TAMSULOSIN 0.4 MG CAP PO SCH (08:24)
[2020-04-05] MEDS: MOM 30ML SUSPENSION UDC PO SCH (08:24)
[2020-04-05] MEDS: ASPIRIN 81 MG ENTERIC TAB PO SCH ×2 (08:24→20:21)
[2020-04-05] MEDS: SUCRALFATE 1 GM TAB PO SCH ×2 (08:24→20:21)
[2020-04-05] MEDS: DICLOFENAC EPOLAMINE 1.3 % PATCH TOP SCH ×2 (08:25→20:21)
[2020-04-05] MEDS: FINASTERIDE 5 MG TAB PO SCH (08:25)
[2020-04-05] MEDS: TORSEMIDE 20 MG TAB PO SCH ×2 (08:25→17:31)
[2020-04-05] MEDS: FERROUS SULFATE 325MG TAB PO SCH ×2 (08:25→20:20)
[2020-04-05] MEDS: PANTOPRAZOLE 40MG TAB (PROTONIX) PO SCH ×2 (08:25→20:21)
[2020-04-05] MEDS: DOCUSATE SODIUM 100MG CAPSULE PO SCH ×2 (08:25→20:20)
[2020-04-05] MEDS: SPIRONOLACTONE 25 MG TAB PO SCH (08:25)
[2020-04-05] MEDS: NICOTINE 21MG/24HR 1 EA TRANSDERMAL TD SCH (08:26)
[2020-04-05] MEDS: METAMUCIL (PSYLLIUM) PACKET PO SCH (08:26)
[2020-04-05] MEDS: prednisoLONE ACET 1% OPHTH SUSP 5ML OS SCH ×2 (08:26→20:21)
[2020-04-05 08:41] LABS: HEMATOCRIT 28.5 % (42.0-52.0); HEMOGLOBIN 8.7 g/dl (13.5-17.5); MEAN CORPUSCULAR HEMOGLOBIN 27.2 pg (27.0-33.0); MEAN CORPUSCULAR HGB CONC 30.5 g/dl (32.0-36.5); MEAN CORPUSCULAR VOLUME 89.1 fl (80.0-96.0); PLATELET COUNT, AUTOMATED 183 10^3/uL (150-450); WHITE BLOOD COUNT 16.4 10^3/uL (4.0-10.0)
[2020-04-05] MEDS: ADVAIR HFA 230/21MCG INHALER INH SCH ×2 (08:44→19:56)
[2020-04-05 09:07] LABS: ALBUMIN 2.7 GM/DL (3.2-5.2); ALT/SGPT 10 U/L (12-78); BILIRUBIN,TOTAL 0.6 MG/DL (0.2-1.0); BLOOD UREA NITROGEN 29 MG/DL (7-18); CALCIUM LEVEL 8.6 MG/DL (8.8-10.2); CARBON DIOXIDE LEVEL 36 MEQ/L (21-32); CHLORIDE LEVEL 92 MEQ/L (98-107); CREATININE FOR GFR 1.08 MG/DL (0.70-1.30); GLOMERULAR FILTRATION RATE > 60.0 (>42); GLUCOSE, FASTING 105 MG/DL (70-100); POTASSIUM SERUM 4.7 MEQ/L (3.5-5.1); SODIUM LEVEL 135 MEQ/L (136-145); TOTAL PROTEIN 5.6 GM/DL (6.4-8.2)
[2020-04-05 14:00] VITALS: BP 105/66
--- NOTE | 2020-04-05 17:05 | IPNPDOC ---
Date Seen The patient was seen on 04/05/20. Progress Note SUBJECTIVE: WBC slightly improved to 16.4, no acute complaints. Remains on 3-4 L NC (home O2 3L NC ATC). BNP improved. Repeat CXR neg for infiltrate. Denies chest pain, incr SOB, fevers, chills, n/v/d. OBJECTIVE: VITAL SIGNS: Please see below. HDS, afebrile, on 4L NC GEN: NAD HEENT:NCAT, EOM intact, nasal cannula in place CVS: RRR, no murmurs, rubs or gallops, + lower extremity edema LUNGS: decreased breath sounds b/l, very mild exp wheezing, bibasilar crackles, no rhonchi ABD: normoactive sounds, soft, NTND EXTREMITIES: bilateral LE edema, otherwise WWP SKIN: healing incisions on R hip : trujillo catheter- chronic NEURO: CN 2-12 are grossly intact, no focal deficits, AAOx 3 LABORATORY DATA: Please see below Microbiology: Chronic trujillo, straight cath collection - REFLEX URINE CULTURE Final Organism 1 PSEUDOMONAS AERUGINOSA COLONY COUNT 100,000 CFU/ml Organism 2 KLEBSIELLA OXYTOCA COLONY COUNT 100,000 CFU/ml Organism 3 ESCHERICHIA COLI COLONY COUNT 100,000 CFU/ml Organism 4 SERRATIA MARCESCENS COLONY COUNT 100,000 CFU/ml Organism 5 ENTEROCOCCUS FAECALIS COLONY COUNT 100,000 CFU/ml Organism 6 STREP GALLOLYTICUS SSP NICOLAS COLONY COUNT 100,000 CFU/ml IMAGING: CXR 04/04/20: No acute infiltrate. Cardiomegaly with multilead pacemaker. Elevated left hemidiaphragm. Some vascular congestion. CXR 03/28/20: Chronic changes. Mild superimposed atelectasis/infiltrate left lung base in the retrocardiac region. AXR: developing ileus MICROBIOLOGY: Please see below. ASSESSMENT: 75 yr old smoker w a hx of CAD, BPH, COPD with chronic O2 dependent respiratory failure on home 3L NC, CKD 3, HFpEF, Osteoporosis, Pulmonary HTN / Cor Pulmona le, Hypothyroidism, Chronic Anemia, Murphy's esophagus / GERD, Chronic back pain, Dementia, BPH and unsteady gait who presented to the hospital for evaluation after missing his chair while trying to sit down and landing on his right side he will be admitted for management of R femur fx, with postop course c/b acute on chronic hypoxemic respiratory failure with acute on chronic HFpEF, COPD exacerbation and presumed PNA and mixed rody bacteriuria, and an ileus. Now stable however with rising leukocytosis with a stable examination. PLAN: #Leukocytosis likely 2/2 to UTI -WBC decreased today to 16.4, afebrile. -CXR above so unlikely lungs as source of infection, Abd unremarkable. -UCx above: all sensitive to levofloxacin except for STREP GALLOLYTICUS SSP NICOLAS. See sensitivities. -Starting on levofloxacin today again. Consider adding alt to ceftriaxone if needed in addition. Adding probiotic. -S/p steroids but likely not steroid demargination effect -Monitor CBC daily #Acute on chronic respiratory failure likely multifactorial, currently with suspicion of acute on chronic HFpEF, COPD exacerbation and possible PNA. -Baseline patient uses 3 L at home, currently on 4L NC -CXR showed superimposed atelectasis/infiltrate left lung base in the retrocardiac region on admission- Repeat from 04/04: no PNA -Received 5 days levofloxcin. C/w 80 torsemide PO BID, spironolactone, duonebs ATC, albuterol PRN -strict I/Os -Incentive spirometer ordered Q2H while awake. #Acute on chronic HFpEF -See treatment plan above. #Right femur fracture s/p mechanical Fall -POD 7 for closed reduction and fixation of hip fracture with cephalomedullary implant/TFN nail -Hx of unsteady gait, osteoporosis -Unlikely syncopal episode, no documented loss of consciousness per patient. -Pain control, IS Q2H while awake, PT/OT -C/w calcium with vitamin D -Ortho following closely. #Acute on Chronic Anemia -H/H slow decline, no evidence of acute bleeding. will monitor, with goal hgb >8. #CAD -C/w Aspirin, nitroglycerine #BPH -chronic trujillo -C/w Tamsulosin, finasteride #CKD 3 -at baseline #Chronic back pain -C/w Percocet, Acetaminophen & Flector patch #Dementia -At baseline #Hypothyroidism -TSH Dec 2019 0.726 -C/w levothyroxine #GERD Murphy's -PPI and Carafate #DVT Px -SCDs Resolved issues: COPD exacerbation Community acquired PNA Ileus DISPOSITION: Monitoring rising leukocytosis, restarted levofloxacin. Rehab at [facility] when cleared medically. VS, I&O, 24H, Fishbone Vital Signs/I&O Vital Signs Date Time Temp Pulse Resp B/P (MAP) Pulse Ox O2 Delivery O2 Flow Rate FiO2 04/05/20 14:00 98.3 92 18 105/66 (79) 92 Nasal Cannula 4.0 I&O- Last 24 Hours up to 6 AM 04/05/20 06:00 Intake Total 1560 ml Output Total 3000 ml Balance -1440 ml Laboratory Data 24H LABS Laboratory Tests 2 04/05/20 08:16: Nucleated Red Blood Cells % (auto) 0.0, Anion Gap 7L, Glomerular Filtration Rate > 60.0, Calcium Level 8.6L, Total Bilirubin 0.6, Aspartate Amino Transf (AST/SGOT) 12, Alanine Aminotransferase (ALT/SGPT) 10L, Alkaline Phosphatase 77, SO-Fkm-P-Type Natriuretic Peptide 411, Total Protein 5.6L, Albumin 2.7L, Albumin/Globulin Ratio 0.9 CBC/BMP Laboratory Tests 04/05/20 08:16 Microbiology Microbiology 03/27/20 Blood Culture - Final, Complete NO GROWTH AFTER 5 DAYS 03/27/20 Urine Culture - Final, Complete Pseudomonas Aeruginosa Klebsiella Oxytoca Escherichia Coli Serratia Marcescens Enterococcus Faecalis Strep Gallolyticus Ssp Nicolas Current Medications Current Medications Medications (Trade) Dose Ordered Sig/Will Route PRN Reason Start Time Stop Time Status Last Admin Dose Admin Acetaminophen (Tylenol Tab) 650 mg Q4H PRN PO MILD PAIN OR FEVER 03/27/20 03:45 03/27/20 14:03 DC Acetaminophen (Tylenol Tab) 650 mg Q4HP PRN PO mild pain 03/27/20 14:00 04/03/20 01:15 Al Hydrox/Mg Hydrox/Simethicone (Mylanta) 30 ml DAILY PRN PO DYSPEPSIA 03/27/20 03:45 Albuterol Sulfate (Proventil Neb) 2.5 mg Q1HP PRN NEB SHORTNESS OF BREATH 03/27/20 04:30 03/27/20 05:35 DC Albuterol Sulfate (Proventil Neb) 2.5 mg Q2HP PRN NEB SOB/WHEEZING 03/28/20 16:15 Albuterol Sulfate (Proventil Neb) 2.5 mg RQ6H NEB 03/27/20 20:00 03/28/20 10:40 DC 03/28/20 03:32 Albuterol/ Ipratropium (Duoneb (Ipr 0.5mg/Alb 2.5mg)) 3 ml RQ4H NEB 03/28/20 12:00 04/05/20 15:20 Albuterol/ Ipratropium (Duoneb (Ipr 0.5mg/Alb 2.5mg)) 3 ml RQ6H NEB 03/27/20 08:00 03/27/20 17:02 DC 03/27/20 07:26 Alvimopan (Entereg) 12 mg BID PO 03/29/20 09:00 04/05/20 08:59 DC 04/04/20 21:56 Aspirin (Ecotrin) 81 mg BID PO 03/28/20 09:00 04/05/20 08:24 Cefazolin Sodium/ Dextrose 2 gm/IV Miscellaneous Supplies 50 ml @ 75 mls/hr ASDIRECTED IV 03/27/20 06:00 03/27/20 12:01 DC Cefazolin Sodium/ Dextrose 2 gm/IV Miscellaneous Supplies 50 ml @ 75 mls/hr Q6H IV 03/27/20 16:00 03/27/20 22:39 DC 03/27/20 21:41 Diclofenac Epolamine (Flector 1.3%) 1 patch Q12H TOP 03/27/20 09:00 04/05/20 08:25 Docusate Sodium (Colace) 100 mg BID PO 03/28/20 21:00 04/05/20 08:25 Fentanyl Citrate (Sublimaze) 25 mcg Q5MP PRN IV PAIN LEVEL 5-10 03/27/20 12:15 03/27/20 13:15 DC Ferrous Sulfate (Ferrous Sulfate) 325 mg BID PO 03/28/20 21:00 04/05/20 08:25 Finasteride (Proscar) 5 mg DAILY PO 03/27/20 09:00 04/05/20 08:25 Furosemide (LASIX injection) 40 mg DAILY IV 03/28/20 10:45 03/29/20 08:41 DC 03/28/20 11:07 Furosemide (LASIX injection) 80 mg BID IV 03/29/20 09:00 03/29/20 08:45 DC Furosemide (LASIX injection) 80 mg BID@0900,1700 IV 03/29/20 09:00 03/30/20 09:52 DC 03/30/20 08:30 Furosemide (LASIX injection) 80 mg DAILY IV 03/31/20 09:00 03/31/20 08:16 DC Home Med (Med Rec Complete!) ASDIRECTED XX 03/27/20 03:15 03/27/20 03:08 DC Lactated Ringer's 1,000 ml @ 60 mls/hr [id number] IV 03/27/20 03:45 03/27/20 07:58 DC 03/27/20 05:25 Lactated Ringer's 1,000 ml @ 80 mls/hr [id number] IV 03/27/20 12:15 03/27/20 13:15 DC Levalbuterol HCl (Xopenex Neb) 0.63 mg Q1HP PRN INH dyspnea 03/27/20 20:15 03/28/20 16:23 DC Levalbuterol HCl (Xopenex Neb) 0.63 mg Q4HP PRN INH dyspnea 03/27/20 05:30 03/27/20 20:05 DC 03/27/20 05:39 Levofloxacin 750 mg/IV Miscellaneous Supplies 150 ml @ 100 mls/hr Q24H IV 03/28/20 13:00 04/01/20 15:05 DC 03/31/20 14:50 Levothyroxine Sodium (Synthroid) 75 mcg QAM PO 03/27/20 09:00 04/02/20 07:50 DC 04/01/20 07:59 Levothyroxine Sodium (Synthroid) 75 mcg QAM@0600 PO 04/02/20 06:00 04/05/20 05:50 Magnesium Hydroxide (Milk Of Magnesia) 30 ml DAILY PO 03/31/20 06:30 04/05/20 08:24 Magnesium Hydroxide (Milk Of Magnesia) 30 ml DAILY PRN PO CONSTIPATION 03/27/20 03:45 03/31/20 06:27 DC Methylprednisolone (SOLUmedrol) 60 mg DAILY IV 03/30/20 09:00 03/31/20 08:19 DC 03/30/20 10:12 Methylprednisolone (SOLUmedrol) 60 mg Q12H IV 03/28/20 11:00 03/30/20 09:52 DC 03/29/20 23:17 Methylprednisolone (SOLUmedrol) 125 mg STAT STAT IV 03/27/20 04:21 03/27/20 04:22 DC 03/27/20 05:24 Morphine Sulfate (Morphine Sulfate Inj) 2 mg Q2H PRN IV MODERATE/SEVERE PAIN (PS 5-10) 03/27/20 03:45 03/27/20 12:51 DC 03/27/20 06:31 Morphine Sulfate (Morphine Sulfate Inj) 2 mg Q2H PRN IV SEVERE PAIN (PS 8-10) 03/27/20 13:00 03/28/20 06:11 DC Morphine Sulfate (Morphine Sulfate Inj) 2 mg Q30M PRN IV MODERATE PAIN (PS 5-7) 03/27/20 02:00 03/27/20 03:14 DC 03/27/20 03:13 Morphine Sulfate (Morphine Sulfate Inj) 2 mg Q5MP PRN IV PAIN LEVEL 4-7 03/27/20 12:15 03/27/20 13:15 DC Nicotine (Nicoderm Cq 21mg) 1 patch DAILY TD 03/31/20 09:00 04/05/20 08:26 Nitroglycerin (Nitrostat (1/ 150)) 0.4 mg Q5MP PRN SL CHEST PAIN 03/27/20 05:30 Ondansetron HCl (ZOFRAN INJection) 4 mg Q4HP PRN IV NAUSEA OR VOMITING 03/27/20 12:15 03/27/20 13:15 DC Ondansetron HCl (ZOFRAN INJection) 4 mg Q6H PRN IV NAUSEA 03/27/20 13:00 04/03/20 10:47 DC Oxycodone/ Acetaminophen (Percocet 5mg/ 325mg Tablet) 1 tab Q4H PRN PO MODERATE PAIN (PS 5-7) 03/27/20 13:00 04/05/20 02:16 Pantoprazole Sodium (Protonix) 40 mg BID PO 03/27/20 05:30 04/05/20 08:25 Pantoprazole Sodium (Protonix) 40 mg DAILY PO 03/27/20 09:00 03/27/20 05:35 DC Prednisolone Acetate (Predforte 1% Ophth Susp) 2 drop BID OS 04/01/20 21:00 04/05/20 08:26 Prednisone (Deltasone) 40 mg DAILY PO 03/27/20 09:00 03/29/20 10:56 DC 03/29/20 09:45 Prednisone (Deltasone) 40 mg DAILY PO 03/31/20 09:00 04/02/20 08:00 DC 04/02/20 07:48 Psyllium Hydrophilic Mucilloid (Metamucil) 1 pkt DAILY PO 03/27/20 09:00 03/31/20 09:04 Ramelteon (Rozerem) 8 mg QHS PRN PO INSOMNIA 04/04/20 01:15 04/04/20 01:31 Salmeterol Xinafoate/ Fluticasone (Advair Hfa 230/ 21) 2 puff RBID INH 03/27/20 20:00 04/05/20 08:44 Sodium Chloride 1,000 ml @ 70 mls/hr [id number] IV 03/27/20 08:00 03/27/20 17:54 DC 03/27/20 08:32 Spironolactone (Aldactone) 25 mg DAILY PO 03/27/20 09:00 04/05/20 08:25 Sucralfate (Carafate) 1 gm BID PO 03/27/20 09:00 04/05/20 08:24 Tamsulosin HCl (Flomax) 0.4 mg DAILY PO 03/27/20 09:00 04/05/20 08:24 Tiotropium [place] (Spiriva Handihaler) 1 inhalation DAILY@0800 INH 03/27/20 08:00 03/28/20 10:40 DC 03/28/20 07:51 Torsemide (Demadex) 40 mg BID@ PO 03/27/20 09:00 03/29/20 08:41 DC 03/28/20 17:18 Torsemide (Demadex) 80 mg BID PO 03/27/20 09:00 03/27/20 07:58 DC Torsemide (Demadex) 80 mg BID@ PO 03/31/20 09:00 04/05/20 08:25 Allergies Coded Allergies: Sulfa (Sulfonamide Antibiotics) (Verified Allergy, Mild, RASH, 09/30/19) latex (Verified Allergy, Mild, rash, 09/30/19) shellfish derived (Verified Allergy, Mild, ITCHING, 09/30/19) hydrocodone (Verified Adverse Reaction, Mild, 09/30/19) Sydney Dueñas MD Apr 05, 2020 17:05
[2020-04-05] MEDS: LACTOBACILLUS ACIDOPHILUS CAP (BACID) PO SCH (17:31)
[2020-04-05] MEDS: RAMELTEON 8 MG TAB (ROZEREM) PO PRN (20:21)
[2020-04-05] MEDS: ACETAMINOPHEN TAB 650MG DOSE (2X325MG) PO PRN (20:21)
[2020-04-05 22:00] VITALS: BP 108/58
[2020-04-06] MEDS: ACETAMINOPHEN TAB 650MG DOSE (2X325MG) PO PRN (02:40)
[2020-04-06] MEDS: IPRATROPIUM 0.5MG/ALBUTEROL 2.5MG INH SOL UD 3ML (DUONEB) NEB SCH ×6 (02:55→23:56)
[2020-04-06] MEDS: PERCOCET 5MG/325MG TAB PO PRN ×2 (05:52→18:18)
[2020-04-06] MEDS: LEVOTHYROXINE 75MCG TABLET (0.075MG) PO SCH (05:52)
[2020-04-06] MEDS: LevoFLOXacin 500 MG TABLET PO SCH (05:52)
[2020-04-06 05:53] VITALS: BP 97/51
[2020-04-06] MEDS: ADVAIR HFA 230/21MCG INHALER INH SCH ×2 (07:55→20:16)
[2020-04-06 09:21] LABS: HEMATOCRIT 30.5 % (42.0-52.0); HEMOGLOBIN 9.4 g/dl (13.5-17.5); MEAN CORPUSCULAR HEMOGLOBIN 27.7 pg (27.0-33.0); MEAN CORPUSCULAR HGB CONC 30.8 g/dl (32.0-36.5); PLATELET COUNT, AUTOMATED 220 10^3/uL (150-450); RED BLOOD COUNT 3.39 10^6/uL (4.30-6.10); WHITE BLOOD COUNT 16.8 10^3/uL (4.0-10.0)
[2020-04-06] MEDS: NICOTINE 21MG/24HR 1 EA TRANSDERMAL TD SCH (09:22)
[2020-04-06] MEDS: LACTOBACILLUS ACIDOPHILUS CAP (BACID) PO SCH ×2 (09:22→17:21)
[2020-04-06] MEDS: FERROUS SULFATE 325MG TAB PO SCH ×2 (09:22→21:40)
[2020-04-06] MEDS: SUCRALFATE 1 GM TAB PO SCH ×2 (09:22→21:40)
[2020-04-06] MEDS: ASPIRIN 81 MG ENTERIC TAB PO SCH ×2 (09:22→21:41)
[2020-04-06] MEDS: TAMSULOSIN 0.4 MG CAP PO SCH (09:22)
[2020-04-06] MEDS: prednisoLONE ACET 1% OPHTH SUSP 5ML OS SCH ×2 (09:23→21:41)
[2020-04-06] MEDS: SPIRONOLACTONE 25 MG TAB PO SCH (09:23)
[2020-04-06] MEDS: MOM 30ML SUSPENSION UDC PO SCH (09:23)
[2020-04-06] MEDS: FINASTERIDE 5 MG TAB PO SCH (09:23)
[2020-04-06] MEDS: DOCUSATE SODIUM 100MG CAPSULE PO SCH ×2 (09:23→21:41)
[2020-04-06] MEDS: TORSEMIDE 20 MG TAB PO SCH ×2 (09:23→17:21)
[2020-04-06] MEDS: PANTOPRAZOLE 40MG TAB (PROTONIX) PO SCH ×2 (09:23→21:40)
[2020-04-06] MEDS: METAMUCIL (PSYLLIUM) PACKET PO SCH (09:23)
[2020-04-06] MEDS: DICLOFENAC EPOLAMINE 1.3 % PATCH TOP SCH ×2 (09:24→21:00)
[2020-04-06 09:43] LABS: BLOOD UREA NITROGEN 30 MG/DL (7-18); CALCIUM LEVEL 8.6 MG/DL (8.8-10.2); CARBON DIOXIDE LEVEL 40 MEQ/L (21-32); CHLORIDE LEVEL 89 MEQ/L (98-107); CREATININE FOR GFR 1.24 MG/DL (0.70-1.30); GLOMERULAR FILTRATION RATE > 60.0 (>42); GLUCOSE, FASTING 97 MG/DL (70-100); POTASSIUM SERUM 5.4 MEQ/L (3.5-5.1); SODIUM LEVEL 132 MEQ/L (136-145)
[2020-04-06 10:23] VITALS: BP 104/54
--- NOTE | 2020-04-06 13:38 | IPNPDOC ---
Date Seen The patient was seen on 04/06/20. Progress Note SUBJECTIVE: WBC increased to 16.8, on levofloxacin (Day 2). No acute complaints and looks better sitting up on side of bed. Remains on 3-4 L NC (home O2 3L NC ATC). Denies chest pain, incr SOB, fevers, chills, n/v/d. OBJECTIVE: VITAL SIGNS: Please see below GEN: NAD HEENT:NCAT, EOM intact, nasal cannula in place CVS: RRR, no murmurs, rubs or gallops, + lower extremity edema LUNGS: decreased breath sounds b/l, no rhonchi ABD: normoactive sounds, soft, NTND EXTREMITIES: bilateral LE edema, otherwise WWP SKIN: healing incisions on R hip : trujillo catheter- chronic NEURO: CN 2-12 are grossly intact, no focal deficits, AAOx 3 LABORATORY DATA: Please see below Microbiology: Chronic trujillo, straight cath collection - REFLEX URINE CULTURE Final Organism 1 PSEUDOMONAS AERUGINOSA COLONY COUNT 100,000 CFU/ml Organism 2 KLEBSIELLA OXYTOCA COLONY COUNT 100,000 CFU/ml Organism 3 ESCHERICHIA COLI COLONY COUNT 100,000 CFU/ml Organism 4 SERRATIA MARCESCENS COLONY COUNT 100,000 CFU/ml Organism 5 ENTEROCOCCUS FAECALIS COLONY COUNT 100,000 CFU/ml Organism 6 STREP GALLOLYTICUS SSP NICOLAS COLONY COUNT 100,000 CFU/ml IMAGING: CXR 04/04/20: No acute infiltrate. Cardiomegaly with multilead pacemaker. Elevated left hemidiaphragm. Some vascular congestion. CXR 03/28/20: Chronic changes. Mild superimposed atelectasis/infiltrate left lung base in the retrocardiac region. AXR: developing ileus MICROBIOLOGY: Please see below. ASSESSMENT: 75 yr old smoker w a hx of CAD, BPH, COPD with chronic O2 dependent respiratory failure on home 3L NC, CKD 3, HFpEF, Osteoporosis, Pulmonary HTN / Cor Pulmonale, Hypothyroidism, Chronic Anemia, Murphy's esophagus / GERD, Chronic back pain, Dementia, BPH and unsteady gait who presented to the hospital for evaluation after missing his chair while trying to sit down and landing on his right side he will be admitted for management of R femur fx, with postop course c/b acute on chronic hypoxemic respiratory failure with acute on chronic HFpEF, COPD exacerbation and presumed PNA and mixed rody bacteriuria, and an ileus. Now stable however with rising leukocytosis with a stable examination. PLAN: #Leukocytosis likely 2/2 to UTI? Cannot rule out hip, no increased pain;however. -WBC 16.8, worsened but without fevers. -CXR above so unlikely lungs as source of infection, Abd unremarkable. -UCx above: all sensitive to levofloxacin except for STREP GALLOLYTICUS SSP NICOLAS. See sensitivities. -S/p steroids but likely not steroid demargination effect -On levofloxacin (Day 2). Would like to discuss case with Dr. Reza on 04/07/20 to see if to continue abx or stop. -Monitor CBC daily #Hyperkalemia likely 2/2 to overdiuresis, spironolactone -Stopped spironolactone today, hydrating -F/u AM labs #Hyponatremia, hypochloridemia likely 2/2 to overdiuresis -Decreased torsemide and stopped spironolactone -Started on gentle IVF hydration today -Monitor AM labs. #Acute on chronic respiratory failure likely multifactorial, currently with suspicion of acute on chronic HFpEF, COPD exacerbation and possible PNA. -Baseline patient uses 3 L at home, currently on 4L NC -CXR showed superimposed atelectasis/infiltrate left lung base in the retrocardiac region on admission- Repeat from 04/04: no PNA -Received 5 days levofloxcin, restarted on 04/05/20. -Decreased torsemide PO BID, stopped spironolactone, C/w duonebs ATC, albuterol PRN -strict I/Os -Incentive spirometer ordered Q2H while awake. #Acute on chronic HFpEF -See treatment plan above. #Right femur fracture s/p mechanical Fall -POD 8 for closed reduction and fixation of hip fracture with cephalomedullary implant/TFN nail -No increased pain, erythema -Hx of unsteady gait, osteoporosis -Unlikely syncopal episode, no documented loss of consciousness per patient. -Pain control, IS Q2H while awake, PT/OT -C/w calcium with vitamin D -Ortho following #Acute on Chronic Anemia -H/H waxing and waning -no evidence of acute bleeding. will monitor, with goal hgb >8. #CAD -C/w Aspirin, nitroglycerine #BPH -chronic trujillo -C/w Tamsulosin, finasteride #CKD 3 -at baseline #Chronic back pain -C/w Percocet, Acetaminophen & Flector patch #Dementia -At baseline #Hypothyroidism -TSH Dec 2019 0.726 -C/w levothyroxine #GERD Murphy's -PPI and Carafate #DVT Px -SCDs Resolved issues: COPD exacerbation Community acquired PNA Ileus DISPOSITION: Monitoring rising leukocytosis, will discuss with Dr. Reza on 04/07/20. Rehab at [facility] when cleared medically. VS, I&O, 24H, Fishbone Vital Signs/I&O Vital Signs Date Time Temp Pulse Resp B/P (MAP) Pulse Ox O2 Delivery O2 Flow Rate FiO2 04/06/20 10:23 104/54 (71) 04/06/20 09:00 3.0 04/06/20 07:55 Nasal Cannula 04/06/20 06:22 16 04/06/20 05:53 97.7 86 94 I&O- Last 24 Hours up to 6 AM 04/06/20 06:00 Intake Total 1260 ml Output Total 2800 ml Balance -1540 ml Laboratory Data 24H LABS Laboratory Tests 2 04/06/20 09:04: Anion Gap 3L, Glomerular Filtration Rate > 60.0, Calcium Level 8.6L 04/06/20 09:05: Nucleated Red Blood Cells % (auto) 0.0 CBC/BMP Laboratory Tests 04/06/20 09:04 04/06/20 09:05 Microbiology Microbiology 03/27/20 Blood Culture - Final, Complete NO GROWTH AFTER 5 DAYS 03/27/20 Urine Culture - Final, Complete Pseudomonas Aeruginosa Klebsiella Oxytoca Escherichia Coli Serratia Marcescens Enterococcus Faecalis Strep Gallolyticus Ssp Nicolas Current Medications Current Medications Medications (Trade) Dose Ordered Sig/Will Route PRN Reason Start Time Stop Time Status Last Admin Dose Admin Acetaminophen (Tylenol Tab) 650 mg Q4H PRN PO MILD PAIN OR FEVER 03/27/20 03:45 03/27/20 14:03 DC Acetaminophen (Tylenol Tab) 650 mg Q4HP PRN PO mild pain 03/27/20 14:00 04/06/20 02:40 Al Hydrox/Mg Hydrox/Simethicone (Mylanta) 30 ml DAILY PRN PO DYSPEPSIA 03/27/20 03:45 Albuterol Sulfate (Proventil Neb) 2.5 mg Q1HP PRN NEB SHORTNESS OF BREATH 03/27/20 04:30 03/27/20 05:35 DC Albuterol Sulfate (Proventil Neb) 2.5 mg Q2HP PRN NEB SOB/WHEEZING 03/28/20 16:15 Albuterol Sulfate (Proventil Neb) 2.5 mg RQ6H NEB 03/27/20 20:00 03/28/20 10:40 DC 03/28/20 03:32 Albuterol/ Ipratropium (Duoneb (Ipr 0.5mg/Alb 2.5mg)) 3 ml RQ4H NEB 03/28/20 12:00 04/06/20 11:09 Albuterol/ Ipratropium (Duoneb (Ipr 0.5mg/Alb 2.5mg)) 3 ml RQ6H NEB 03/27/20 08:00 03/27/20 17:02 DC 03/27/20 07:26 Alvimopan (Entereg) 12 mg BID PO 03/29/20 09:00 04/05/20 08:59 DC 04/04/20 21:56 Aspirin (Ecotrin) 81 mg BID PO 03/28/20 09:00 04/06/20 09:22 Cefazolin Sodium/ Dextrose 2 gm/IV Miscellaneous Supplies 50 ml @ 75 mls/hr ASDIRECTED IV 03/27/20 06:00 03/27/20 12:01 DC Cefazolin Sodium/ Dextrose 2 gm/IV Miscellaneous Supplies 50 ml @ 75 mls/hr Q6H IV 03/27/20 16:00 03/27/20 22:39 DC 03/27/20 21:41 Diclofenac Epolamine (Flector 1.3%) 1 patch Q12H TOP 03/27/20 09:00 04/06/20 09:24 Docusate Sodium (Colace) 100 mg BID PO 03/28/20 21:00 04/06/20 09:23 Fentanyl Citrate (Sublimaze) 25 mcg Q5MP PRN IV PAIN LEVEL 5-10 03/27/20 12:15 03/27/20 13:15 DC Ferrous Sulfate (Ferrous Sulfate) 325 mg BID PO 03/28/20 21:00 04/06/20 09:22 Finasteride (Proscar) 5 mg DAILY PO 03/27/20 09:00 04/06/20 09:23 Furosemide (LASIX injection) 40 mg DAILY IV 03/28/20 10:45 03/29/20 08:41 DC 03/28/20 11:07 Furosemide (LASIX injection) 80 mg BID IV 03/29/20 09:00 03/29/20 08:45 DC Furosemide (LASIX injection) 80 mg BID@0900,1700 IV 03/29/20 09:00 03/30/20 09:52 DC 03/30/20 08:30 Furosemide (LASIX injection) 80 mg DAILY IV 03/31/20 09:00 03/31/20 08:16 DC Home Med (Med Rec Complete!) ASDIRECTED XX 03/27/20 03:15 03/27/20 03:08 DC Lactated Ringer's 1,000 ml @ 60 mls/hr [id number] IV 03/27/20 03:45 03/27/20 07:58 DC 03/27/20 05:25 Lactated Ringer's 1,000 ml @ 80 mls/hr [id number] IV 03/27/20 12:15 03/27/20 13:15 DC Lactobacillus Acidophilus (Bacid) 1 ea BIDWM PO 04/05/20 18:00 04/06/20 09:22 Levalbuterol HCl (Xopenex Neb) 0.63 mg Q1HP PRN INH dyspnea 03/27/20 20:15 03/28/20 16:23 DC Levalbuterol HCl (Xopenex Neb) 0.63 mg Q4HP PRN INH dyspnea 03/27/20 05:30 03/27/20 20:05 DC 03/27/20 05:39 Levofloxacin (Levaquin) 500 mg DAILY@06 PO 04/06/20 06:00 04/13/20 05:59 04/06/20 05:52 Levofloxacin 750 mg/IV Miscellaneous Supplies 150 ml @ 100 mls/hr Q24H IV 03/28/20 13:00 04/01/20 15:05 DC 03/31/20 14:50 Levothyroxine Sodium (Synthroid) 75 mcg QAM PO 03/27/20 09:00 04/02/20 07:50 DC 04/01/20 07:59 Levothyroxine Sodium (Synthroid) 75 mcg QAM@0600 PO 04/02/20 06:00 04/06/20 05:52 Magnesium Hydroxide (Milk Of Magnesia) 30 ml DAILY PO 03/31/20 06:30 04/06/20 09:23 Magnesium Hydroxide (Milk Of Magnesia) 30 ml DAILY PRN PO CONSTIPATION 03/27/20 03:45 03/31/20 06:27 DC Methylprednisolone (SOLUmedrol) 60 mg DAILY IV 03/30/20 09:00 03/31/20 08:19 DC 03/30/20 10:12 Methylprednisolone (SOLUmedrol) 60 mg Q12H IV 03/28/20 11:00 03/30/20 09:52 DC 03/29/20 23:17 Methylprednisolone (SOLUmedrol) 125 mg STAT STAT IV 03/27/20 04:21 03/27/20 04:22 DC 03/27/20 05:24 Morphine Sulfate (Morphine Sulfate Inj) 2 mg Q2H PRN IV MODERATE/SEVERE PAIN (PS 5-10) 03/27/20 03:45 03/27/20 12:51 DC 03/27/20 06:31 Morphine Sulfate (Morphine Sulfate Inj) 2 mg Q2H PRN IV SEVERE PAIN (PS 8-10) 03/27/20 13:00 03/28/20 06:11 DC Morphine Sulfate (Morphine Sulfate Inj) 2 mg Q30M PRN IV MODERATE PAIN (PS 5-7) 03/27/20 02:00 03/27/20 03:14 DC 03/27/20 03:13 Morphine Sulfate (Morphine Sulfate Inj) 2 mg Q5MP PRN IV PAIN LEVEL 4-7 03/27/20 12:15 03/27/20 13:15 DC Nicotine (Nicoderm Cq 21mg) 1 patch DAILY TD 03/31/20 09:00 04/06/20 09:22 Nitroglycerin (Nitrostat (1/ 150)) 0.4 mg Q5MP PRN SL CHEST PAIN 03/27/20 05:30 Ondansetron HCl (ZOFRAN INJection) 4 mg Q4HP PRN IV NAUSEA OR VOMITING 03/27/20 12:15 03/27/20 13:15 DC Ondansetron HCl (ZOFRAN INJection) 4 mg Q6H PRN IV NAUSEA 03/27/20 13:00 04/03/20 10:47 DC Oxycodone/ Acetaminophen (Percocet 5mg/ 325mg Tablet) 1 tab Q4H PRN PO MODERATE PAIN (PS 5-7) 03/27/20 13:00 04/06/20 05:52 Pantoprazole Sodium (Protonix) 40 mg BID PO 03/27/20 05:30 04/06/20 09:23 Pantoprazole Sodium (Protonix) 40 mg DAILY PO 03/27/20 09:00 03/27/20 05:35 DC Prednisolone Acetate (Predforte 1% Ophth Susp) 2 drop BID OS 04/01/20 21:00 04/06/20 09:23 Prednisone (Deltasone) 40 mg DAILY PO 03/27/20 09:00 03/29/20 10:56 DC 03/29/20 09:45 Prednisone (Deltasone) 40 mg DAILY PO 03/31/20 09:00 04/02/20 08:00 DC 04/02/20 07:48 Psyllium Hydrophilic Mucilloid (Metamucil) 1 pkt DAILY PO 03/27/20 09:00 04/06/20 09:23 Ramelteon (Rozerem) 8 mg QHS PRN PO INSOMNIA 04/04/20 01:15 04/05/20 20:21 Salmeterol Xinafoate/ Fluticasone (Advair Hfa 230/ 21) 2 puff RBID INH 03/27/20 20:00 04/06/20 07:55 Sodium Chloride 1,000 ml @ 70 mls/hr [id number] IV 03/27/20 08:00 03/27/20 17:54 DC 03/27/20 08:32 Spironolactone (Aldactone) 25 mg DAILY PO 03/27/20 09:00 04/06/20 13:29 DC 04/06/20 09:23 Sucralfate (Carafate) 1 gm BID PO 03/27/20 09:00 04/06/20 09:22 Tamsulosin HCl (Flomax) 0.4 mg DAILY PO 03/27/20 09:00 04/06/20 09:22 Tiotropium Asher (Spiriva Handihaler) 1 inhalation DAILY@0800 INH 03/27/20 08:00 03/28/20 10:40 DC 03/28/20 07:51 Torsemide (Demadex) 40 mg BID@, PO 03/27/20 09:00 03/29/20 08:41 DC 03/28/20 17:18 Torsemide (Demadex) 60 mg BID@, PO 04/06/20 17:00 Torsemide (Demadex) 80 mg BID PO 03/27/20 09:00 03/27/20 07:58 DC Torsemide (Demadex) 80 mg BID@, PO 03/31/20 09:00 04/06/20 13:30 DC 04/06/20 09:23 Allergies Coded Allergies: Sulfa (Sulfonamide Antibiotics) (Verified Allergy, Mild, RASH, 09/30/19) latex (Verified Allergy, Mild, rash, 09/30/19) shellfish derived (Verified Allergy, Mild, ITCHING, 09/30/19) hydrocodone (Verified Adverse Reaction, Mild, 09/30/19) confusion Sydney Shen MD Apr 06, 2020 13:38
[2020-04-06 14:00] VITALS: BP 103/55
[2020-04-06] MEDS: NS 1,000 ML IV SCH (15:00)
[2020-04-06 22:00] VITALS: BP 101/53
[2020-04-07] MEDS: PERCOCET 5MG/325MG TAB PO PRN ×3 (02:21→20:26)
[2020-04-07] MEDS: NS 1,000 ML IV SCH ×2 (02:21→16:05)
[2020-04-07] MEDS: IPRATROPIUM 0.5MG/ALBUTEROL 2.5MG INH SOL UD 3ML (DUONEB) NEB SCH ×5 (04:00→20:00)
[2020-04-07 05:55] LABS: HEMATOCRIT 27.2 % (42.0-52.0); HEMOGLOBIN 8.4 g/dl (13.5-17.5); MEAN CORPUSCULAR HEMOGLOBIN 27.8 pg (27.0-33.0); MEAN CORPUSCULAR HGB CONC 30.9 g/dl (32.0-36.5); MEAN CORPUSCULAR VOLUME 90.1 fl (80.0-96.0); PLATELET COUNT, AUTOMATED 199 10^3/uL (150-450); RED BLOOD COUNT 3.02 10^6/uL (4.30-6.10); WHITE BLOOD COUNT 16.8 10^3/uL (4.0-10.0)
[2020-04-07 06:00] VITALS: BP 104/62
[2020-04-07] MEDS: ACETAMINOPHEN TAB 650MG DOSE (2X325MG) PO PRN (06:03)
[2020-04-07] MEDS: LEVOTHYROXINE 75MCG TABLET (0.075MG) PO SCH (06:03)
[2020-04-07] MEDS: LevoFLOXacin 500 MG TABLET PO SCH (06:03)
[2020-04-07 06:24] LABS: BLOOD UREA NITROGEN 26 MG/DL (7-18); CALCIUM LEVEL 8.2 MG/DL (8.8-10.2); CARBON DIOXIDE LEVEL 33 MEQ/L (21-32); CHLORIDE LEVEL 95 MEQ/L (98-107); CREATININE FOR GFR 1.22 MG/DL (0.70-1.30); GLOMERULAR FILTRATION RATE > 60.0 (>42); GLUCOSE, FASTING 122 MG/DL (70-100); POTASSIUM SERUM 4.2 MEQ/L (3.5-5.1); SODIUM LEVEL 132 MEQ/L (136-145)
[2020-04-07] MEDS: ADVAIR HFA 230/21MCG INHALER INH SCH ×2 (07:20→19:29)
[2020-04-07] MEDS: DICLOFENAC EPOLAMINE 1.3 % PATCH TOP SCH ×2 (09:00→20:26)
[2020-04-07] MEDS: GASTROGRAFIN SOLUTION 30ML PO SCH ×2 (09:44→10:39)
[2020-04-07] MEDS ORDERED: ISOVUE-370 76% 100ML VIAL As Ordered ONE (10:56)
[2020-04-07] MEDS: METAMUCIL (PSYLLIUM) PACKET PO SCH (12:10)
[2020-04-07] MEDS: MOM 30ML SUSPENSION UDC PO SCH (12:11)
[2020-04-07] MEDS: DOCUSATE SODIUM 100MG CAPSULE PO SCH ×2 (12:13→20:26)
--- NOTE | 2020-04-07 12:13 | REP ---
INDICATION: r/o intrabdominal process/infection. COMPARISON: Comparison CT study December 09, 2019.. TECHNIQUE: Helical scanning is acquired and 3 mm axial images re-formatted. Coronal and sagittal MPR images are generated. The CT contrast enhancement dose is 100 mL of intravenous Isovue 370. FINDINGS: Preliminary digital family health nurse practitioner radiograph demonstrates an unremarkable gas pattern. There is an intramedullary juliana and a pin in the proximal femur on the right. On axial CT images, there is fairly prominent pattern of platelike atelectasis in the left lower lobe of the lung. This is more pronounced than on the prior study of December 09, 2019 where there was some fibrosis. Mild linear fibrotic changes are noted on the right. No pleural effusion or upper abdominal ascites is seen. Pacemaker is noted in the heart. There are 3 small cysts in the liver the largest of which measures 1.6 cm in diameter. These are unchanged. No focal liver mass lesion is seen. Spleen is unremarkable. No adrenal mass lesion is seen. There is a cyst in the right kidney again noted measuring 2.6 cm in greatest diameter. No hydronephrosis or renal mass is observed. No retroperitoneal mass or adenopathy is seen. No abnormality is noted in the pancreas. Gallbladder is small and contracted in appearance. No stone is seen by CT. Vascular calcification is observed. Small and large bowel loops are unremarkable in the upper abdomen and pelvis. A Wilkins catheter is noted in the urinary bladder which is largely empty. There is no evidence of free intraperitoneal air or abnormal fluid collection in the abdomen. The appendix is not directly visualized but there is no CT evidence to suggest appendicitis. IMPRESSION: No acute intra-abdominal abnormality. Wilkins catheter in place. Stable hepatic and right renal cysts. Small sliding-type hiatal hernia again noted. There is some increased platelike atelectasis in the left lower lobe of the lung. <Electronically signed by Winston Blanco > 04/07/20 [id number]
[2020-04-07] MEDS: TORSEMIDE 20 MG TAB PO SCH ×2 (12:14→17:45)
[2020-04-07] MEDS: ASPIRIN 81 MG ENTERIC TAB PO SCH ×2 (12:14→20:25)
[2020-04-07] MEDS: TAMSULOSIN 0.4 MG CAP PO SCH (12:14)
[2020-04-07] MEDS: FERROUS SULFATE 325MG TAB PO SCH ×2 (12:15→20:26)
[2020-04-07] MEDS: FINASTERIDE 5 MG TAB PO SCH (12:15)
[2020-04-07] MEDS: PANTOPRAZOLE 40MG TAB (PROTONIX) PO SCH ×2 (12:15→20:25)
[2020-04-07] MEDS: NICOTINE 21MG/24HR 1 EA TRANSDERMAL TD SCH (12:16)
[2020-04-07] MEDS: prednisoLONE ACET 1% OPHTH SUSP 5ML OS SCH ×2 (12:17→20:26)
--- NOTE | 2020-04-07 12:30 | IPNPDOC ---
Date Seen The patient was seen on 04/07/20. Progress Note SUBJECTIVE: WBC remained elevated at 16.8, CT abd/pelvis done due to lower abd discomfort on exam- neg for acute intraabdominal pathology. No acute complaints overnight. Denies chest pain, incr SOB, fevers, chills, n/v/d. OBJECTIVE: VITAL SIGNS: Please see below GEN: NAD HEENT:NCAT, EOM intact, nasal cannula in place CVS: RRR, no murmurs, rubs or gallops, + lower extremity edema LUNGS: decreased breath sounds b/l, no rhonchi ABD: mild lower left and right abd discomfort on palpation, no organomegaly, normoactive sounds, soft EXTREMITIES: bilateral LE edema, otherwise WWP SKIN: healing incisions on R hip : trujillo catheter NEURO: CN 2-12 are grossly intact, no focal deficits, AAOx 3 LABORATORY DATA: Please see below Microbiology: Chronic trujillo, straight cath collection - REFLEX URINE CULTURE Final Organism 1 PSEUDOMONAS AERUGINOSA COLONY COUNT 100,000 CFU/ml Organism 2 KLEBSIELLA OXYTOCA COLONY COUNT 100,000 CFU/ml Organism 3 ESCHERICHIA COLI COLONY COUNT 100,000 CFU/ml Organism 4 SERRATIA MARCESCENS COLONY COUNT 100,000 CFU/ml Organism 5 ENTEROCOCCUS FAECALIS COLONY COUNT 100,000 CFU/ml Organism 6 STREP GALLOLYTICUS SSP NICOLAS COLONY COUNT 100,000 CFU/ml IMAGING: CT abd/pelvis: No acute intra-abdominal abnormality. Trujillo catheter in place. Stable hepatic and right renal cysts. Small sliding-type hiatal hernia again noted. There is some increased platelike atelectasis in the left lower lobe of the lung. CXR 04/04/20: No acute infiltrate. Cardiomegaly with multilead pacemaker. Elevated left hemidiaphragm. Some vascular congestion. CXR 03/28/20: Chronic changes. Mild superimposed atelectasis/infiltrate left lung base in the retrocardiac region. AXR: developing ileus MICROBIOLOGY: Please see below. ASSESSMENT: 75 yr old smoker w a hx of CAD, BPH, COPD with chronic O2 dependent respiratory failure on home 3L NC, CKD 3, HFpEF, Osteoporosis, Pulmonary HTN / Cor Pulmonale, Hypothyroidism, Chronic Anemia, Murphy's esophagus / GERD, Chronic back pain, Dementia, BPH and unsteady gait who presented to the hospital for evaluation after missing his chair while trying to sit down and landing on his right side he will be admitted for management of R femur fx, with postop course c/b acute on chronic hypoxemic respiratory failure with acute on chronic HFpEF, COPD exacerbation and presumed PNA and mixed rody bacteriuria, and an ileus. Now stable however with rising leukocytosis with a stable examination. PLAN: #Leukocytosis likely 2/2 to UTI? vs. delayed reactive leukocytosis from surgery. -WBC 16.8, febrile -CT abd/pelvis: neg -CXR above so unlikely lungs as source of infection, Abd unremarkable. -UCx above: all sensitive to levofloxacin except for STREP GALLOLYTICUS SSP NICOLAS. See sensitivities. -On levofloxacin (Day 3). -Monitor CBC closely #Hyperkalemia likely 2/2 to overdiuresis, spironolactone- resolved. -Stopped spironolactone 04/08/20, hydrating today -Can likely stop fluids 04/08/20 and restart spironolactone if potassium remains normal -F/u AM labs #Hyponatremia, hypochloridemia likely 2/2 to overdiuresis- improving -Decreased torsemide and stopped spironolactone -Started on gentle IVF hydration -Monitor AM labs. #Acute on chronic respiratory failure likely multifactorial, currently with suspicion of acute on chronic HFpEF, COPD exacerbation and possible PNA- impr ritu. -At baseline, uses 3 L at home -CXR showed superimposed atelectasis/infiltrate left lung base in the retrocardiac region on admission- Repeat from 04/04: no PNA -Received 5 days levofloxcin, restarted on 04/05/20. -Decreased torsemide PO BID, stopped spironolactone, C/w duonebs ATC, albuterol PRN -strict I/Os -Incentive spirometer ordered Q2H while awake. #Acute on chronic HFpEF -See treatment plan above. #Right femur fracture s/p mechanical Fall -POD 9 for closed reduction and fixation of hip fracture with cephalomedullary implant/TFN nail -No increased pain, erythema -Hx of unsteady gait, osteoporosis -Pain control, IS Q2H while awake, PT/OT -C/w calcium with vitamin D, ASA BID -Ortho following #Acute on Chronic Anemia -H/H waxing and waning -No evidence of acute bleeding. will monitor, with goal hgb >8. #CAD -C/w Aspirin, nitroglycerine #BPH -chronic trujillo -C/w Tamsulosin, finasteride #CKD 3 -at baseline #Chronic back pain -C/w Percocet, Acetaminophen & Flector patch #Dementia -At baseline #Hypothyroidism -TSH Dec 2019 0.726 -C/w levothyroxine #GERD Murphy's -PPI and Carafate #DVT Px -SCDs, ASA BID Resolved issues: COPD exacerbation Community acquired PNA Ileus DISPOSITION: Rehab at [facility] likely on 04/08/20. VS, I&O, 24H, Fishbone Vital Signs/I&O Vital Signs Date Time Temp Pulse Resp B/P (MAP) Pulse Ox O2 Delivery O2 Flow Rate FiO2 04/07/20 09:00 3.0 04/07/20 06:00 97.0 78 17 104/62 (76) 95 Nasal Cannula I&O- Last 24 Hours up to 6 AM 04/07/20 06:00 Intake Total 2240 ml Output Total 2075 ml Balance 165 ml Laboratory Data 24H LABS Laboratory Tests 2 04/07/20 05:29: Nucleated Red Blood Cells % (auto) 0.0, Anion Gap 4L, Glomerular Filtration Rate > 60.0, Calcium Level 8.2L CBC/BMP Laboratory Tests 04/07/20 05:29 Current Medications Current Medications Medications (Trade) Dose Ordered Sig/Will Route PRN Reason Start Time Stop Time Status Last Admin Dose Admin Acetaminophen (Tylenol Tab) 650 mg Q4H PRN PO MILD PAIN OR FEVER 03/27/20 03:45 03/27/20 14:03 DC Acetaminophen (Tylenol Tab) 650 mg Q4HP PRN PO mild pain 03/27/20 14:00 04/07/20 06:03 Al Hydrox/Mg Hydrox/Simethicone (Mylanta) 30 ml DAILY PRN PO DYSPEPSIA 03/27/20 03:45 Albuterol Sulfate (Proventil Neb) 2.5 mg Q1HP PRN NEB SHORTNESS OF BREATH 03/27/20 04:30 03/27/20 05:35 DC Albuterol Sulfate (Proventil Neb) 2.5 mg Q2HP PRN NEB SOB/WHEEZING 03/28/20 16:15 Albuterol Sulfate (Proventil Neb) 2.5 mg RQ6H NEB 03/27/20 20:00 03/28/20 10:40 DC 03/28/20 03:32 Albuterol/ Ipratropium (Duoneb (Ipr 0.5mg/Alb 2.5mg)) 3 ml RQ4H NEB 03/28/20 12:00 04/06/20 15:32 Albuterol/ Ipratropium (Duoneb (Ipr 0.5mg/Alb 2.5mg)) 3 ml RQ6H NEB 03/27/20 08:00 03/27/20 17:02 DC 03/27/20 07:26 Alvimopan (Entereg) 12 mg BID PO 03/29/20 09:00 04/05/20 08:59 DC 04/04/20 21:56 Aspirin (Ecotrin) 81 mg BID PO 03/28/20 09:00 04/06/20 21:41 Cefazolin Sodium/ Dextrose 2 gm/IV Miscellaneous Supplies 50 ml @ 75 mls/hr ASDIRECTED IV 03/27/20 06:00 03/27/20 12:01 DC Cefazolin Sodium/ Dextrose 2 gm/IV Miscellaneous Supplies 50 ml @ 75 mls/hr Q6H IV 03/27/20 16:00 03/27/20 22:39 DC 03/27/20 21:41 Diatrizoate Meglum/ Diatrizoate Sod (Gastrografin) 10 ml Q30M PO 04/07/20 09:30 04/07/20 10:05 DC 04/07/20 10:39 Diclofenac Epolamine (Flector 1.3%) 1 patch Q12H [facility] 03/27/20 09:00 04/06/20 09:24 Docusate Sodium (Colace) 100 mg BID PO 03/28/20 21:00 04/06/20 21:41 Fentanyl Citrate (Sublimaze) 25 mcg Q5MP PRN IV PAIN LEVEL 5-10 03/27/20 12:15 03/27/20 13:15 DC Ferrous Sulfate (Ferrous Sulfate) 325 mg BID PO 03/28/20 21:00 04/06/20 21:40 Finasteride (Proscar) 5 mg DAILY PO 03/27/20 09:00 04/06/20 09:23 Furosemide (LASIX injection) 40 mg DAILY IV 03/28/20 10:45 03/29/20 08:41 DC 03/28/20 11:07 Furosemide (LASIX injection) 80 mg BID IV 03/29/20 09:00 03/29/20 08:45 DC Furosemide (LASIX injection) 80 mg BID@0900,1700 IV 03/29/20 09:00 03/30/20 09:52 DC 03/30/20 08:30 Furosemide (LASIX injection) 80 mg DAILY IV 03/31/20 09:00 03/31/20 08:16 DC Home Med (Med Rec Complete!) ASDIRECTED XX 03/27/20 03:15 03/27/20 03:08 DC Lactated Ringer's 1,000 ml @ 60 mls/hr [id number] IV 03/27/20 03:45 03/27/20 07:58 DC 03/27/20 05:25 Lactated Ringer's 1,000 ml @ 80 mls/hr [id number] IV 03/27/20 12:15 03/27/20 13:15 DC Lactobacillus Acidophilus (Bacid) 1 ea BIDWM PO 04/05/20 18:00 04/06/20 17:21 Levalbuterol HCl (Xopenex Neb) 0.63 mg Q1HP PRN INH dyspnea 03/27/20 20:15 03/28/20 16:23 DC Levalbuterol HCl (Xopenex Neb) 0.63 mg Q4HP PRN INH dyspnea 03/27/20 05:30 03/27/20 20:05 DC 03/27/20 05:39 Levofloxacin (Levaquin) 500 mg DAILY@06 PO 04/06/20 06:00 04/13/20 05:59 04/07/20 06:03 Levofloxacin 750 mg/IV Miscellaneous Supplies 150 ml @ 100 mls/hr Q24H IV 03/28/20 13:00 04/01/20 15:05 DC 03/31/20 14:50 Levothyroxine Sodium (Synthroid) 75 mcg QAM PO 03/27/20 09:00 04/02/20 07:50 DC 04/01/20 07:59 Levothyroxine Sodium (Synthroid) 75 mcg QAM@0600 PO 04/02/20 06:00 04/07/20 06:03 Magnesium Hydroxide (Milk Of Magnesia) 30 ml DAILY PO 03/31/20 06:30 04/06/20 09:23 Magnesium Hydroxide (Milk Of Magnesia) 30 ml DAILY PRN PO CONSTIPATION 03/27/20 03:45 03/31/20 06:27 DC Methylprednisolone (SOLUmedrol) 60 mg DAILY IV 03/30/20 09:00 03/31/20 08:19 DC 03/30/20 10:12 Methylprednisolone (SOLUmedrol) 60 mg Q12H IV 03/28/20 11:00 03/30/20 09:52 DC 03/29/20 23:17 Methylprednisolone (SOLUmedrol) 125 mg STAT STAT IV 03/27/20 04:21 03/27/20 04:22 DC 03/27/20 05:24 Morphine Sulfate (Morphine Sulfate Inj) 2 mg Q2H PRN IV MODERATE/SEVERE PAIN (PS 5-10) 03/27/20 03:45 03/27/20 12:51 DC 03/27/20 06:31 Morphine Sulfate (Morphine Sulfate Inj) 2 mg Q2H PRN IV SEVERE PAIN (PS 8-10) 03/27/20 13:00 03/28/20 06:11 DC Morphine Sulfate (Morphine Sulfate Inj) 2 mg Q30M PRN IV MODERATE PAIN (PS 5-7) 03/27/20 02:00 03/27/20 03:14 DC 03/27/20 03:13 Morphine Sulfate (Morphine Sulfate Inj) 2 mg Q5MP PRN IV PAIN LEVEL 4-7 03/27/20 12:15 03/27/20 13:15 DC Nicotine (Nicoderm Cq 21mg) 1 patch DAILY TD 03/31/20 09:00 04/06/20 09:22 Nitroglycerin (Nitrostat (1/ 150)) 0.4 mg Q5MP PRN SL CHEST PAIN 03/27/20 05:30 Ondansetron HCl (ZOFRAN INJection) 4 mg Q4HP PRN IV NAUSEA OR VOMITING 03/27/20 12:15 03/27/20 13:15 DC Ondansetron HCl (ZOFRAN INJection) 4 mg Q6H PRN IV NAUSEA 03/27/20 13:00 04/03/20 10:47 DC Oxycodone/ Acetaminophen (Percocet 5mg/ 325mg Tablet) 1 tab Q4H PRN PO MODERATE PAIN (PS 5-7) 03/27/20 13:00 04/07/20 02:21 Pantoprazole Sodium (Protonix) 40 mg BID PO 03/27/20 05:30 04/06/20 21:40 Pantoprazole Sodium (Protonix) 40 mg DAILY PO 03/27/20 09:00 03/27/20 05:35 DC Prednisolone Acetate (Predforte 1% Ophth Susp) 2 drop BID OS 04/01/20 21:00 04/06/20 21:41 Prednisone (Deltasone) 40 mg DAILY PO 03/27/20 09:00 03/29/20 10:56 DC 03/29/20 09:45 Prednisone (Deltasone) 40 mg DAILY PO 03/31/20 09:00 04/02/20 08:00 DC 04/02/20 07:48 Psyllium Hydrophilic Mucilloid (Metamucil) 1 pkt DAILY PO 03/27/20 09:00 04/06/20 09:23 Ramelteon (Rozerem) 8 mg QHS PRN PO INSOMNIA 04/04/20 01:15 04/05/20 20:21 Salmeterol Xinafoate/ Fluticasone (Advair Hfa 230/ 21) 2 puff RBID INH 03/27/20 20:00 04/07/20 07:20 Sodium Chloride 1,000 ml @ 70 mls/hr [id number] IV 03/27/20 08:00 03/27/20 17:54 DC 03/27/20 08:32 Sodium Chloride 1,000 ml @ 80 mls/hr [id number] IV 04/06/20 13:30 04/07/20 02:21 Spironolactone (Aldactone) 25 mg DAILY PO 03/27/20 09:00 04/06/20 13:29 DC 04/06/20 09:23 Sucralfate (Carafate) 1 gm BID PO 03/27/20 09:00 04/06/20 21:40 Tamsulosin HCl (Flomax) 0.4 mg DAILY PO 03/27/20 09:00 04/06/20 09:22 Tiotropium Grady (Spiriva Handihaler) 1 inhalation DAILY@0800 INH 03/27/20 08:00 03/28/20 10:40 DC 03/28/20 07:51 Torsemide (Demadex) 40 mg BID@, PO 03/27/20 09:00 03/29/20 08:41 DC 03/28/20 17:18 Torsemide (Demadex) 60 mg BID@,17 PO 04/06/20 17:00 04/06/20 17:21 Torsemide (Demadex) 80 mg BID PO 03/27/20 09:00 03/27/20 07:58 DC Torsemide (Demadex) 80 mg BID@ PO 03/31/20 09:00 04/06/20 13:30 DC 04/06/20 09:23 Allergies Coded Allergies: Sulfa (Sulfonamide Antibiotics) (Verified Allergy, Mild, RASH, 09/30/19) latex (Verified Allergy, Mild, rash, 09/30/19) shellfish derived (Verified Allergy, Mild, ITCHING, 09/30/19) hydrocodone (Verified Adverse Reaction, Mild, 09/30/19) confusion Sydney Shen MD Apr 07, 2020 12:30
[2020-04-07] MEDS: SUCRALFATE 1 GM TAB PO SCH ×2 (13:17→20:26)
[2020-04-07] MEDS: LACTOBACILLUS ACIDOPHILUS CAP (BACID) PO SCH ×2 (13:17→17:45)
[2020-04-07 14:00] VITALS: BP 99/61
[2020-04-07 20:00] VITALS: BP 95/54
[2020-04-07 20:26] VITALS: BP 105/60
[2020-04-07] MEDS: RAMELTEON 8 MG TAB (ROZEREM) PO PRN (20:26)
[2020-04-07 21:00] VITALS: O2SAT 94
[2020-04-08] MEDS: NS 1,000 ML IV SCH (02:54)
[2020-04-08] MEDS: IPRATROPIUM 0.5MG/ALBUTEROL 2.5MG INH SOL UD 3ML (DUONEB) NEB SCH ×7 (04:00→23:41)
[2020-04-08] MEDS: LevoFLOXacin 500 MG TABLET PO SCH (05:58)
[2020-04-08] MEDS: PERCOCET 5MG/325MG TAB PO PRN ×2 (05:58→20:47)
[2020-04-08] MEDS: LEVOTHYROXINE 75MCG TABLET (0.075MG) PO SCH (05:58)
[2020-04-08 06:45] LABS: HEMATOCRIT 26.1 % (42.0-52.0); MEAN CORPUSCULAR HGB CONC 30.7 g/dl (32.0-36.5); MEAN CORPUSCULAR VOLUME 91.3 fl (80.0-96.0); PLATELET COUNT, AUTOMATED 201 10^3/uL (150-450); RED BLOOD COUNT 2.86 10^6/uL (4.30-6.10); WHITE BLOOD COUNT 15.3 10^3/uL (4.0-10.0)
[2020-04-08 06:59] VITALS: BP 106/54
[2020-04-08] MEDS: ADVAIR HFA 230/21MCG INHALER INH SCH ×2 (07:11→20:57)
[2020-04-08 07:12] LABS: BLOOD UREA NITROGEN 20 MG/DL (7-18); CREATININE FOR GFR 1.09 MG/DL (0.70-1.30); GLUCOSE, FASTING 94 MG/DL (70-100)
[2020-04-08 07:13] LABS: CALCIUM LEVEL 7.8 MG/DL (8.8-10.2); CARBON DIOXIDE LEVEL 33 MEQ/L (21-32); CHLORIDE LEVEL 99 MEQ/L (98-107); GLOMERULAR FILTRATION RATE > 60.0 (>42); POTASSIUM SERUM 4.4 MEQ/L (3.5-5.1); SODIUM LEVEL 135 MEQ/L (136-145)
[2020-04-08] MEDS ORDERED: PREDOPD OS (08:51)
[2020-04-08] MEDS ORDERED: NICO21PAT TD (08:51)
[2020-04-08] MEDS ORDERED: FERR325T18 PO (08:51)
[2020-04-08] MEDS ORDERED: LEVO500T3 PO (08:51)
[2020-04-08] MEDS ORDERED: RAME8TAB2 PO (08:51)
[2020-04-08] MEDS ORDERED: ACET1TAB55 PO (08:51)
[2020-04-08] MEDS ORDERED: MOM30SS2 PO (08:51)
[2020-04-08] MEDS ORDERED: DOK1CAP7 PO (08:51)
[2020-04-08] MEDS ORDERED: META1POW PO (08:51)
[2020-04-08] MEDS ORDERED: TORS20TA2 PO (08:51)
[2020-04-08] MEDS ORDERED: RISATAB3 PO (08:51)
[2020-04-08] MEDS ORDERED: IPRA0.00 NEB (08:51)
[2020-04-08] MEDS ORDERED: PERCOCET PO (08:52)
[2020-04-08] MEDS: DICLOFENAC EPOLAMINE 1.3 % PATCH TOP SCH ×2 (09:00→20:47)
[2020-04-08] MEDS: LACTOBACILLUS ACIDOPHILUS CAP (BACID) PO SCH ×2 (09:05→17:49)
[2020-04-08] MEDS: SUCRALFATE 1 GM TAB PO SCH ×2 (09:05→20:45)
[2020-04-08] MEDS: MOM 30ML SUSPENSION UDC PO SCH (09:06)
[2020-04-08] MEDS: ASPIRIN 81 MG ENTERIC TAB PO SCH ×2 (09:06→20:46)
[2020-04-08] MEDS: DOCUSATE SODIUM 100MG CAPSULE PO SCH ×2 (09:06→20:47)
[2020-04-08] MEDS: TAMSULOSIN 0.4 MG CAP PO SCH (09:07)
[2020-04-08] MEDS: TORSEMIDE 20 MG TAB PO SCH ×2 (09:07→17:48)
[2020-04-08] MEDS: FERROUS SULFATE 325MG TAB PO SCH ×2 (09:08→20:46)
[2020-04-08] MEDS: PANTOPRAZOLE 40MG TAB (PROTONIX) PO SCH ×2 (09:08→20:46)
[2020-04-08] MEDS: FINASTERIDE 5 MG TAB PO SCH (09:09)
[2020-04-08] MEDS: METAMUCIL (PSYLLIUM) PACKET PO SCH (09:09)
[2020-04-08] MEDS: NICOTINE 21MG/24HR 1 EA TRANSDERMAL TD SCH (09:09)
[2020-04-08] MEDS: prednisoLONE ACET 1% OPHTH SUSP 5ML OS SCH ×2 (09:10→20:46)
[2020-04-08 20:15] VITALS: BP 105/60
[2020-04-08] MEDS: RAMELTEON 8 MG TAB (ROZEREM) PO PRN (20:46)
--- NOTE | 2020-04-08 20:52 | IPNPDOC ---
Date Seen The patient was seen on 04/08/20. Progress Note SUBJECTIVE: WBC remained elevated at 16.8, likely reactive to surgery. Was unable to discharge to rehab due to facility staffing issues. No acute complaints overnight. Denies chest pain, incr SOB, fevers, chills, n/v/d. OBJECTIVE: VITAL SIGNS: Please see below GEN: NAD HEENT:NCAT, EOM intact, nasal cannula in place CVS: RRR, no murmurs, rubs or gallops, + lower extremity edema LUNGS: decreased breath sounds b/l, no rhonchi ABD: mild lower left and right abd discomfort on palpation, no organomegaly, normoactive sounds, soft EXTREMITIES: bilateral LE edema, otherwise WWP SKIN: healing incisions on R hip : trujillo catheter NEURO: CN 2-12 are grossly intact, no focal deficits, AAOx 3 LABORATORY DATA: Please see below Microbiology: Chronic trujillo, straight cath collection - REFLEX URINE CULTURE Final Organism 1 PSEUDOMONAS AERUGINOSA COLONY COUNT 100,000 CFU/ml Organism 2 KLEBSIELLA OXYTOCA COLONY COUNT 100,000 CFU/ml Organism 3 ESCHERICHIA COLI COLONY COUNT 100,000 CFU/ml Organism 4 SERRATIA MARCESCENS COLONY COUNT 100,000 CFU/ml Organism 5 ENTEROCOCCUS FAECALIS COLONY COUNT 100,000 CFU/ml Organism 6 STREP GALLOLYTICUS SSP NICOLAS COLONY COUNT 100,000 CFU/ml IMAGING: CT abd/pelvis: No acute intra-abdominal abnormality. Trujillo catheter in place. Stable hepatic and right renal cysts. Small sliding-type hiatal hernia again noted. There is some increased platelike atelectasis in the left lower lobe of the lung. CXR 04/04/20: No acute infiltrate. Cardiomegaly with multilead pacemaker. Elevated left hemidiaphragm. Some vascular congestion. CXR 03/28/20: Chronic changes. Mild superimposed atelectasis/infiltrate left lung base in the retrocardiac region. AXR: developing ileus MICROBIOLOGY: Please see below. ASSESSMENT: 75 yr old smoker w a hx of CAD, BPH, COPD with chronic O2 dependent respiratory failure on home 3L NC, CKD 3, HFpEF, Osteoporosis, Pulmonary HTN / Cor Pulmonale, Hypothyroidism, Chronic Anemia, Murphy's esophagus / GERD, Chronic back pain, Dementia, BPH and unsteady gait who presented to the hospital for evaluation after missing his chair while trying to sit down and landing on his right side he will be admitted for management of R femur fx, with postop course c/b acute on chronic hypoxemic respiratory failure with acute on chronic HFpEF, COPD exacerbation and presumed PNA and mixed rody bacteriuria, and an ileus. Now stable however with rising leukocytosis with a stable examination. PLAN: #Leukocytosis likely 2/2 to UTI? vs. delayed reactive leukocytosis from surgery. -WBC 15.3, febrile -CT abd/pelvis: neg -CXR above so unlikely lungs as source of infection, Abd unremarkable. -UCx above: all sensitive to levofloxacin except for STREP GALLOLYTICUS SSP NICOLAS. See sensitivities. -On levofloxacin (Day 08/13). -Monitor CBC #Acute on chronic respiratory failure likely multifactorial, currently with suspicion of acute on chronic HFpEF, COPD exacerbation and possible PNA- impro gina. -At baseline, uses 3 L at home -CXR showed superimposed atelectasis/infiltrate left lung base in the retrocardiac region on admission- Repeat from 04/04: no PNA -Received 5 days levofloxcin, restarted on 04/05/20. -Decreased torsemide PO BID, stopped spironolactone, C/w duonebs ATC, albuterol PRN -Incentive spirometer ordered Q2H while awake. #Acute on chronic HFpEF -See treatment plan above. #Right femur fracture s/p mechanical Fall -POD 10 for closed reduction and fixation of hip fracture with cephalomedullary implant/TFN nail -No increased pain, erythema -Hx of unsteady gait, osteoporosis -Pain control, IS Q2H while awake, PT/OT -C/w calcium with vitamin D, ASA BID -Ortho following #Acute on Chronic Anemia -H/H waxing and waning -Dropped some with hydrating overnight -No evidence of acute bleeding. will monitor, with goal hgb >8. #CAD -C/w Aspirin, nitroglycerine #BPH -chronic trujillo -C/w Tamsulosin, finasteride #CKD 3 -at baseline #Chronic back pain -C/w Percocet, Acetaminophen & Flector patch #Dementia -At baseline #Hypothyroidism -TSH Dec 2019 0.726 -C/w levothyroxine #GERD Murphy's -PPI and Carafate #DVT Px -SCDs, ASA BID Resolved issues: COPD exacerbation Community acquired PNA Ileus Hyperkalemia likely 2/2 to overdiuresis, spironolactone Hyponatremia, hypochloridemia likely 2/2 to overdiuresis DISPOSITION: Rehab at [facility] likely after weekend. VS, I&O, 24H, Fishbone Vital Signs/I&O Vital Signs Date Time Temp Pulse Resp B/P (MAP) Pulse Ox O2 Delivery O2 Flow Rate FiO2 04/08/20 20:15 99.4 88 20 105/60 (75) 93 Nasal Cannula 2.0 I&O- Last 24 Hours up to 6 AM0 04/08/20 06:00 Intake Total 2200 ml Output Total 2650 ml Balance -450 ml Laboratory Data 24H LABS Laboratory Tests 2 04/08/20 06:25: Nucleated Red Blood Cells % (auto) 0.0, Anion Gap 3L, Glomerular Filtration Rate > 60.0, Calcium Level 7.8L CBC/BMP Laboratory Tests 04/08/20 06:25 Current Medications Current Medications Medications (Trade) Dose Ordered Sig/Will Route PRN Reason Start Time Stop Time Status Last Admin Dose Admin Acetaminophen (Tylenol Tab) 650 mg Q4H PRN PO MILD PAIN OR FEVER 03/27/20 03:45 03/27/20 14:03 DC Acetaminophen (Tylenol Tab) 650 mg Q4HP PRN PO mild pain 03/27/20 14:00 04/07/20 06:03 Al Hydrox/Mg Hydrox/Simethicone (Mylanta) 30 ml DAILY PRN PO DYSPEPSIA 03/27/20 03:45 Albuterol Sulfate (Proventil Neb) 2.5 mg Q1HP PRN NEB SHORTNESS OF BREATH 03/27/20 04:30 03/27/20 05:35 DC Albuterol Sulfate (Proventil Neb) 2.5 mg Q2HP PRN NEB SOB/WHEEZING 03/28/20 16:15 Albuterol Sulfate (Proventil Neb) 2.5 mg RQ6H NEB 03/27/20 20:00 03/28/20 10:40 DC 03/28/20 03:32 Albuterol/ Ipratropium (Duoneb (Ipr 0.5mg/Alb 2.5mg)) 3 ml RQ4H NEB 03/28/20 12:00 04/08/20 16:14 Albuterol/ Ipratropium (Duoneb (Ipr 0.5mg/Alb 2.5mg)) 3 ml RQ6H NEB 03/27/20 08:00 03/27/20 17:02 DC 03/27/20 07:26 Alvimopan (Entereg) 12 mg BID PO 03/29/20 09:00 04/05/20 08:59 DC 04/04/20 21:56 Aspirin (Ecotrin) 81 mg BID PO 03/28/20 09:00 04/08/20 09:06 Cefazolin Sodium/ Dextrose 2 gm/IV Miscellaneous Supplies 50 ml @ 75 mls/hr ASDIRECTED IV 03/27/20 06:00 03/27/20 12:01 DC Cefazolin Sodium/ Dextrose 2 gm/IV Miscellaneous Supplies 50 ml @ 75 mls/hr Q6H IV 03/27/20 16:00 03/27/20 22:39 DC 03/27/20 21:41 Diatrizoate Meglum/ Diatrizoate Sod (Gastrografin) 10 ml Q30M PO 04/07/20 09:30 04/07/20 10:05 DC 04/07/20 10:39 Diclofenac Epolamine (Flector 1.3%) 1 patch Q12H TOP 03/27/20 09:00 04/06/20 09:24 Docusate Sodium (Colace) 100 mg BID PO 03/28/20 21:00 04/08/20 09:06 Fentanyl Citrate (Sublimaze) 25 mcg Q5MP PRN IV PAIN LEVEL 5-10 03/27/20 12:15 03/27/20 13:15 DC Ferrous Sulfate (Ferrous Sulfate) 325 mg BID PO 03/28/20 21:00 04/08/20 09:08 Finasteride (Proscar) 5 mg DAILY PO 03/27/20 09:00 04/08/20 09:09 Furosemide (LASIX injection) 40 mg DAILY IV 03/28/20 10:45 03/29/20 08:41 DC 03/28/20 11:07 Furosemide (LASIX injection) 80 mg BID IV 03/29/20 09:00 03/29/20 08:45 DC Furosemide (LASIX injection) 80 mg BID@0900,1700 IV 03/29/20 09:00 03/30/20 09:52 DC 03/30/20 08:30 Furosemide (LASIX injection) 80 mg DAILY IV 03/31/20 09:00 03/31/20 08:16 DC Home Med (Med Rec Complete!) ASDIRECTED XX 03/27/20 03:15 03/27/20 03:08 DC Lactated Ringer's 1,000 ml @ 60 mls/hr [id number] IV 03/27/20 03:45 03/27/20 07:58 DC 03/27/20 05:25 Lactated Ringer's 1,000 ml @ 80 mls/hr [id number] IV 03/27/20 12:15 03/27/20 13:15 DC Lactobacillus Acidophilus (Bacid) 1 ea BIDWM PO 04/05/20 18:00 04/08/20 17:49 Levalbuterol HCl (Xopenex Neb) 0.63 mg Q1HP PRN INH dyspnea 03/27/20 20:15 03/28/20 16:23 DC Levalbuterol HCl (Xopenex Neb) 0.63 mg Q4HP PRN INH dyspnea 03/27/20 05:30 03/27/20 20:05 DC 03/27/20 05:39 Levofloxacin (Levaquin) 500 mg DAILY@06 PO 04/06/20 06:00 04/13/20 05:59 04/08/20 05:58 Levofloxacin 750 mg/IV Miscellaneous Supplies 150 ml @ 100 mls/hr Q24H IV 03/28/20 13:00 04/01/20 15:05 DC 03/31/20 14:50 Levothyroxine Sodium (Synthroid) 75 mcg QAM PO 03/27/20 09:00 04/02/20 07:50 DC 04/01/20 07:59 Levothyroxine Sodium (Synthroid) 75 mcg QAM@0600 PO 04/02/20 06:00 04/08/20 05:58 Magnesium Hydroxide (Milk Of Magnesia) 30 ml DAILY PO 03/31/20 06:30 04/08/20 09:06 Magnesium Hydroxide (Milk Of Magnesia) 30 ml DAILY PRN PO CONSTIPATION 03/27/20 03:45 03/31/20 06:27 DC Methylprednisolone (SOLUmedrol) 60 mg DAILY IV 03/30/20 09:00 03/31/20 08:19 DC 03/30/20 10:12 Methylprednisolone (SOLUmedrol) 60 mg Q12H IV 03/28/20 11:00 03/30/20 09:52 DC 03/29/20 23:17 Methylprednisolone (SOLUmedrol) 125 mg STAT STAT IV 03/27/20 04:21 03/27/20 04:22 DC 03/27/20 05:24 Morphine Sulfate (Morphine Sulfate Inj) 2 mg Q2H PRN IV MODERATE/SEVERE PAIN (PS 5-10) 03/27/20 03:45 03/27/20 12:51 DC 03/27/20 06:31 Morphine Sulfate (Morphine Sulfate Inj) 2 mg Q2H PRN IV SEVERE PAIN (PS 8-10) 03/27/20 13:00 03/28/20 06:11 DC Morphine Sulfate (Morphine Sulfate Inj) 2 mg Q30M PRN IV MODERATE PAIN (PS 5-7) 03/27/20 02:00 03/27/20 03:14 DC 03/27/20 03:13 Morphine Sulfate (Morphine Sulfate Inj) 2 mg Q5MP PRN IV PAIN LEVEL 4-7 03/27/20 12:15 03/27/20 13:15 DC Nicotine (Nicoderm Cq 21mg) 1 patch DAILY TD 03/31/20 09:00 04/08/20 09:09 Nitroglycerin (Nitrostat (1/ 150)) 0.4 mg Q5MP PRN SL CHEST PAIN 03/27/20 05:30 Ondansetron HCl (ZOFRAN INJection) 4 mg Q4HP PRN IV NAUSEA OR VOMITING 03/27/20 12:15 03/27/20 13:15 DC Ondansetron HCl (ZOFRAN INJection) 4 mg Q6H PRN IV NAUSEA 03/27/20 13:00 04/03/20 10:47 DC Oxycodone/ Acetaminophen (Percocet 5mg/ 325mg Tablet) 1 tab Q4H PRN PO MODERATE PAIN (PS 5-7) 03/27/20 13:00 04/08/20 05:58 Pantoprazole Sodium (Protonix) 40 mg BID PO 03/27/20 05:30 04/08/20 09:08 Pantoprazole Sodium (Protonix) 40 mg DAILY PO 03/27/20 09:00 03/27/20 05:35 DC Prednisolone Acetate (Predforte 1% Ophth Susp) 2 drop BID OS 04/01/20 21:00 04/08/20 09:10 Prednisone (Deltasone) 40 mg DAILY PO 03/27/20 09:00 03/29/20 10:56 DC 03/29/20 09:45 Prednisone (Deltasone) 40 mg DAILY PO 03/31/20 09:00 04/02/20 08:00 DC 04/02/20 07:48 Psyllium Hydrophilic Mucilloid (Metamucil) 1 pkt DAILY PO 03/27/20 09:00 04/08/20 09:09 Ramelteon (Rozerem) 8 mg QHS PRN PO INSOMNIA 04/04/20 01:15 04/07/20 20:26 Salmeterol Xinafoate/ Fluticasone (Advair Hfa / ) 2 puff RBID INH 03/27/20 20:00 04/08/20 07:11 Sodium Chloride 1,000 ml @ 70 mls/hr [id number] IV 03/27/20 08:00 03/27/20 17:54 DC 03/27/20 08:32 Sodium Chloride 1,000 ml @ 80 mls/hr [id number] IV 04/06/20 13:30 04/08/20 15:48 DC 04/08/20 02:54 Spironolactone (Aldactone) 25 mg DAILY PO 03/27/20 09:00 04/06/20 13:29 DC 04/06/20 09:23 Sucralfate (Carafate) 1 gm BID PO 03/27/20 09:00 04/08/20 09:05 Tamsulosin HCl (Flomax) 0.4 mg DAILY PO 03/27/20 09:00 04/08/20 09:07 Tiotropium [place] (Spiriva Handihaler) 1 inhalation DAILY@0800 INH 03/27/20 08:00 03/28/20 10:40 DC 03/28/20 07:51 Torsemide (Demadex) 40 mg BID@ PO 03/27/20 09:00 03/29/20 08:41 DC 03/28/20 17:18 Torsemide (Demadex) 60 mg BID@ PO 04/06/20 17:00 04/08/20 17:48 Torsemide (Demadex) 80 mg BID PO 03/27/20 09:00 03/27/20 07:58 DC Torsemide (Demadex) 80 mg BID@ PO 03/31/20 09:00 04/06/20 13:30 DC 04/06/20 09:23 Allergies Coded Allergies: Sulfa (Sulfonamide Antibiotics) (Verified Allergy, Mild, RASH, 09/30/19) latex (Verified Allergy, Mild, rash, 09/30/19) shellfish derived (Verified Allergy, Mild, ITCHING, 09/30/19) hydrocodone (Verified Adverse Reaction, Mild, 09/30/19) confusion Sydney Shen MD Apr 08, 2020 20:52
[2020-04-09] MEDS: IPRATROPIUM 0.5MG/ALBUTEROL 2.5MG INH SOL UD 3ML (DUONEB) NEB SCH ×6 (03:52→23:47)
[2020-04-09] MEDS: LevoFLOXacin 500 MG TABLET PO SCH (05:40)
[2020-04-09] MEDS: LEVOTHYROXINE 75MCG TABLET (0.075MG) PO SCH (05:40)
[2020-04-09 06:51] LABS: HEMATOCRIT 26.1 % (42.0-52.0); HEMOGLOBIN 7.9 g/dl (13.5-17.5); MEAN CORPUSCULAR HEMOGLOBIN 27.8 pg (27.0-33.0); MEAN CORPUSCULAR HGB CONC 30.3 g/dl (32.0-36.5); MEAN CORPUSCULAR VOLUME 91.9 fl (80.0-96.0); PLATELET COUNT, AUTOMATED 238 10^3/uL (150-450); RED BLOOD COUNT 2.84 10^6/uL (4.30-6.10); WHITE BLOOD COUNT 16.5 10^3/uL (4.0-10.0)
[2020-04-09 06:58] VITALS: BP 103/59
[2020-04-09 07:18] LABS: ALBUMIN 2.4 GM/DL (3.2-5.2); ALT/SGPT 12 U/L (12-78); BILIRUBIN,TOTAL 0.4 MG/DL (0.2-1.0); BLOOD UREA NITROGEN 18 MG/DL (7-18); CALCIUM LEVEL 8.2 MG/DL (8.8-10.2); CARBON DIOXIDE LEVEL 34 MEQ/L (21-32); CHLORIDE LEVEL 100 MEQ/L (98-107); GLOMERULAR FILTRATION RATE > 60.0 (>42); GLUCOSE, FASTING 104 MG/DL (70-100); POTASSIUM SERUM 4.2 MEQ/L (3.5-5.1); SODIUM LEVEL 135 MEQ/L (136-145); TOTAL PROTEIN 5.5 GM/DL (6.4-8.2)
[2020-04-09] MEDS: ADVAIR HFA 230/21MCG INHALER INH SCH ×2 (08:16→19:47)
[2020-04-09] MEDS: MOM 30ML SUSPENSION UDC PO SCH (08:52)
[2020-04-09] MEDS: ASPIRIN 81 MG ENTERIC TAB PO SCH ×2 (08:52→20:18)
[2020-04-09] MEDS: FINASTERIDE 5 MG TAB PO SCH (08:52)
[2020-04-09] MEDS: TAMSULOSIN 0.4 MG CAP PO SCH (08:52)
[2020-04-09] MEDS: DOCUSATE SODIUM 100MG CAPSULE PO SCH ×2 (08:52→20:18)
[2020-04-09] MEDS: PERCOCET 5MG/325MG TAB PO PRN ×3 (08:52→21:55)
[2020-04-09] MEDS: PANTOPRAZOLE 40MG TAB (PROTONIX) PO SCH ×2 (08:52→20:17)
[2020-04-09] MEDS: TORSEMIDE 20 MG TAB PO SCH ×2 (08:53→17:51)
[2020-04-09] MEDS: LACTOBACILLUS ACIDOPHILUS CAP (BACID) PO SCH ×2 (08:53→17:51)
[2020-04-09] MEDS: prednisoLONE ACET 1% OPHTH SUSP 5ML OS SCH ×2 (08:53→20:18)
[2020-04-09] MEDS: METAMUCIL (PSYLLIUM) PACKET PO SCH (08:53)
[2020-04-09] MEDS: SUCRALFATE 1 GM TAB PO SCH ×2 (08:53→20:17)
[2020-04-09] MEDS: FERROUS SULFATE 325MG TAB PO SCH ×2 (08:53→20:18)
[2020-04-09] MEDS: NICOTINE 21MG/24HR 1 EA TRANSDERMAL TD SCH (08:53)
[2020-04-09] MEDS: DICLOFENAC EPOLAMINE 1.3 % PATCH TOP SCH ×2 (08:54→20:18)
[2020-04-09 14:00] VITALS: BP 110/60
--- NOTE | 2020-04-09 16:19 | IPNPDOC ---
Date Seen The patient was seen on 04/09/20. Progress Note SUBJECTIVE: Complains of left groin pain after having CT several days ago, on exam no s/s of erythema, no hernia seen. Likely strain/sprain of abd muscle with movement on CT table. Otherwise, no acute complaints overnight. Denies chest pain, incr SOB, fevers, chills, n/v/d. OBJECTIVE: VITAL SIGNS: Please see below GEN: NAD HEENT:NCAT, EOM intact, nasal cannula in place CVS: RRR, no murmurs, rubs or gallops, + lower extremity edema LUNGS: decreased breath sounds b/l- baseline , no rhonchi ABD: mild lower left and right abd discomfort on palpation, no organomegaly, normoactive sounds, soft EXTREMITIES: bilateral LE edema, otherwise WWP SKIN: healing incisions on R hip : trujillo catheter NEURO: CN 2-12 are grossly intact, no focal deficits, AAOx 3 LABORATORY DATA: Please see below Microbiology: Chronic trujillo, straight cath collection - REFLEX URINE CULTURE Final Organism 1 PSEUDOMONAS AERUGINOSA COLONY COUNT 100,000 CFU/ml Organism 2 KLEBSIELLA OXYTOCA COLONY COUNT 100,000 CFU/ml Organism 3 ESCHERICHIA COLI COLONY COUNT 100,000 CFU/ml Organism 4 SERRATIA MARCESCENS COLONY COUNT 100,000 CFU/ml Organism 5 ENTEROCOCCUS FAECALIS COLONY COUNT 100,000 CFU/ml Organism 6 STREP GALLOLYTICUS SSP NICOLAS COLONY COUNT 100,000 CFU/ml IMAGING: CT abd/pelvis: No acute intra-abdominal abnormality. Trujillo catheter in place. Stable hepatic and right renal cysts. Small sliding-type hiatal hernia again noted. There is some increased platelike atelectasis in the left lower lobe of the lung. CXR 04/04/20: No acute infiltrate. Cardiomegaly with multilead pacemaker. Elevated left hemidiaphragm. Some vascular congestion. CXR 03/28/20: Chronic changes. Mild superimposed atelectasis/infiltrate left lung base in the retrocardiac region. AXR: developing ileus MICROBIOLOGY: Please see below. ASSESSMENT: 75 yr old smoker w a hx of CAD, BPH, COPD with chronic O2 dependent respiratory failure on home 3L NC, CKD 3, HFpEF, Osteoporosis, Pulmonary HTN / Cor Pulmonale, Hypothyroidism, Chronic Anemia, Murphy's esophagus / GERD, Chronic back pain, Dementia, BPH and unsteady gait who presented to the hospital for evaluation after missing his chair while trying to sit down and landing on his right side he will be admitted for management of R femur fx, with postop course c/b acute on chronic hypoxemic respiratory failure with acute on chronic HFpEF, COPD exacerbation and presumed PNA and mixed rody bacteriuria, and an ileus. Now stable however with rising leukocytosis with a stable examination. PLAN: #Acute on Chronic Anemia -H/H waxes and wanes -Lower today at 7.9/26.1 -Dropped some with hydrating over the past several days -No evidence of acute bleeding but will order occult blood -Will monitor, with goal hgb >7 #Left groin pain likely 2/2 to sprain/strain -State this occurred 04/07/20 when he was on CT table before CT abd/pelvis was done -No hernia, erythema or abnormal findings on CT abd/pelvis -Pain control with current regimen -C/w PT/OT #Leukocytosis likely 2/2 to UTI? vs. delayed reactive leukocytosis from surgery. -WBC 16.5, afebrile -CT abd/pelvis: neg -CXR above so unlikely lungs as source of infection -UCx above -On levofloxacin (Day 09/12). -Monitor CBC #Acute on chronic respiratory failure likely multifactorial, currently with suspicion of acute on chronic HFpEF, COPD exacerbation and possible PNA- improved. -At baseline, uses 3 L at home -CXR showed superimposed atelectasis/infiltrate left lung base in the retrocardiac region on admission- Repeat from 04/04: no PNA -Received 5 days levofloxcin, restarted on 04/05/20. -Decreased torsemide PO BID, stopped spironolactone, C/w duonebs ATC, albuterol PRN -Consider reintroducing spironolactone at low dose. -Incentive spirometer ordered Q2H while awake. #Acute on chronic HFpEF -See treatment plan above. #Right femur fracture s/p mechanical Fall -S/p closed reduction and fixation of hip fracture with cephalomedullary implant/TFN nail -No increased pain, erythema -Hx of unsteady gait, osteoporosis -Pain is control, PT/OT -C/w calcium with vitamin D, ASA BID -Ortho following #CAD -C/w Aspirin, nitroglycerine #BPH -chronic trujillo -C/w Tamsulosin, finasteride #CKD 3 -at baseline #Chronic back pain -C/w Percocet, Acetaminophen & Flector patch #Dementia -At baseline #Hypothyroidism -TSH Dec 2019 0.726 -C/w levothyroxine #GERD Murphy's -PPI and Carafate #DVT Px -SCDs, ASA BID Resolved issues: COPD exacerbation Community acquired PNA Ileus Hyperkalemia likely 2/2 to overdiuresis, spironolactone Hyponatremia, hypochloridemia likely 2/2 to overdiuresis DISPOSITION: Rehab at [facility] hopefully after weekend. VS, I&O, 24H, Fishbone Vital Signs/I&O Vital Signs Date Time Temp Pulse Resp B/P (MAP) Pulse Ox O2 Delivery O2 Flow Rate FiO2 04/09/20 14:00 98.5 77 18 110/60 (77) 96 Nasal Cannula 2.0 I&O- Last 24 Hours up to 6 AM 04/09/20 06:00 Intake Total 2370 ml Output Total 1950 ml Balance 420 ml Laboratory Data 24H LABS Laboratory Tests 2 04/09/20 05:58: Nucleated Red Blood Cells % (auto) 0.0, Anion Gap 1L, Glomerular Filtration Rate > 60.0, Calcium Level 8.2L, Total Bilirubin 0.4, Aspartate Amino Transf (AST/SGOT) 10, Alanine Aminotransferase (ALT/SGPT) 12, Alkaline Phosphatase 87, Total Protein 5.5L, Albumin 2.4L, Albumin/Globulin Ratio 0.8 CBC/BMP Laboratory Tests 04/09/20 05:58 Current Medications Current Medications Medications (Trade) Dose Ordered Sig/Will Route PRN Reason Start Time Stop Time Status Last Admin Dose Admin Acetaminophen (Tylenol Tab) 650 mg Q4H PRN PO MILD PAIN OR FEVER 03/27/20 03:45 03/27/20 14:03 DC Acetaminophen (Tylenol Tab) 650 mg Q4HP PRN PO mild pain 03/27/20 14:00 04/07/20 06:03 Al Hydrox/Mg Hydrox/Simethicone (Mylanta) 30 ml DAILY PRN PO DYSPEPSIA 03/27/20 03:45 Albuterol Sulfate (Proventil Neb) 2.5 mg Q1HP PRN NEB SHORTNESS OF BREATH 03/27/20 04:30 03/27/20 05:35 DC Albuterol Sulfate (Proventil Neb) 2.5 mg Q2HP PRN NEB SOB/WHEEZING 03/28/20 16:15 Albuterol Sulfate (Proventil Neb) 2.5 mg RQ6H NEB 03/27/20 20:00 03/28/20 10:40 DC 03/28/20 03:32 Albuterol/ Ipratropium (Duoneb (Ipr 0.5mg/Alb 2.5mg)) 3 ml RQ4H NEB 03/28/20 12:00 04/09/20 15:33 Albuterol/ Ipratropium (Duoneb (Ipr 0.5mg/Alb 2.5mg)) 3 ml RQ6H NEB 03/27/20 08:00 03/27/20 17:02 DC 03/27/20 07:26 Alvimopan (Entereg) 12 mg BID PO 03/29/20 09:00 04/05/20 08:59 DC 04/04/20 21:56 Aspirin (Ecotrin) 81 mg BID PO 03/28/20 09:00 04/09/20 08:52 Cefazolin Sodium/ Dextrose 2 gm/IV Miscellaneous Supplies 50 ml @ 75 mls/hr ASDIRECTED IV 03/27/20 06:00 03/27/20 12:01 DC Cefazolin Sodium/ Dextrose 2 gm/IV Miscellaneous Supplies 50 ml @ 75 mls/hr Q6H IV 03/27/20 16:00 03/27/20 22:39 DC 03/27/20 21:41 Diatrizoate Meglum/ Diatrizoate Sod (Gastrografin) 10 ml Q30M PO 04/07/20 09:30 04/07/20 10:05 DC 04/07/20 10:39 Diclofenac Epolamine (Flector 1.3%) 1 patch Q12H TOP 03/27/20 09:00 04/06/20 09:24 Docusate Sodium (Colace) 100 mg BID PO 03/28/20 21:00 04/09/20 08:52 Fentanyl Citrate (Sublimaze) 25 mcg Q5MP PRN IV PAIN LEVEL 5-10 03/27/20 12:15 03/27/20 13:15 DC Ferrous Sulfate (Ferrous Sulfate) 325 mg BID PO 03/28/20 21:00 04/09/20 08:53 Finasteride (Proscar) 5 mg DAILY PO 03/27/20 09:00 04/09/20 08:52 Furosemide (LASIX injection) 40 mg DAILY IV 03/28/20 10:45 03/29/20 08:41 DC 03/28/20 11:07 Furosemide (LASIX injection) 80 mg BID IV 03/29/20 09:00 03/29/20 08:45 DC Furosemide (LASIX injection) 80 mg BID@0900,1700 IV 03/29/20 09:00 03/30/20 09:52 DC 03/30/20 08:30 Furosemide (LASIX injection) 80 mg DAILY IV 03/31/20 09:00 03/31/20 08:16 DC Home Med (Med Rec Complete!) ASDIRECTED XX 03/27/20 03:15 03/27/20 03:08 DC Lactated Ringer's 1,000 ml @ 60 mls/hr [id number] IV 03/27/20 03:45 03/27/20 07:58 DC 03/27/20 05:25 Lactated Ringer's 1,000 ml @ 80 mls/hr [id number] IV 03/27/20 12:15 03/27/20 13:15 DC Lactobacillus Acidophilus (Bacid) 1 ea BIDWM PO 04/05/20 18:00 04/09/20 08:53 Levalbuterol HCl (Xopenex Neb) 0.63 mg Q1HP PRN INH dyspnea 03/27/20 20:15 03/28/20 16:23 DC Levalbuterol HCl (Xopenex Neb) 0.63 mg Q4HP PRN INH dyspnea 03/27/20 05:30 03/27/20 20:05 DC 03/27/20 05:39 Levofloxacin (Levaquin) 500 mg DAILY@06 PO 04/06/20 06:00 04/13/20 05:59 04/09/20 05:40 Levofloxacin 750 mg/IV Miscellaneous Supplies 150 ml @ 100 mls/hr Q24H IV 03/28/20 13:00 04/01/20 15:05 DC 03/31/20 14:50 Levothyroxine Sodium (Synthroid) 75 mcg QAM PO 03/27/20 09:00 04/02/20 07:50 DC 04/01/20 07:59 Levothyroxine Sodium (Synthroid) 75 mcg QAM@0600 PO 04/02/20 06:00 04/09/20 05:40 Magnesium Hydroxide (Milk Of Magnesia) 30 ml DAILY PO 03/31/20 06:30 04/09/20 08:52 Magnesium Hydroxide (Milk Of Magnesia) 30 ml DAILY PRN PO CONSTIPATION 03/27/20 03:45 03/31/20 06:27 DC Methylprednisolone (SOLUmedrol) 60 mg DAILY IV 03/30/20 09:00 03/31/20 08:19 DC 03/30/20 10:12 Methylprednisolone (SOLUmedrol) 60 mg Q12H IV 03/28/20 11:00 03/30/20 09:52 DC 03/29/20 23:17 Methylprednisolone (SOLUmedrol) 125 mg STAT STAT IV 03/27/20 04:21 03/27/20 04:22 DC 03/27/20 05:24 Morphine Sulfate (Morphine Sulfate Inj) 2 mg Q2H PRN IV MODERATE/SEVERE PAIN (PS 5-10) 03/27/20 03:45 03/27/20 12:51 DC 03/27/20 06:31 Morphine Sulfate (Morphine Sulfate Inj) 2 mg Q2H PRN IV SEVERE PAIN (PS 8-10) 03/27/20 13:00 03/28/20 06:11 DC Morphine Sulfate (Morphine Sulfate Inj) 2 mg Q30M PRN IV MODERATE PAIN (PS 5-7) 03/27/20 02:00 03/27/20 03:14 DC 03/27/20 03:13 Morphine Sulfate (Morphine Sulfate Inj) 2 mg Q5MP PRN IV PAIN LEVEL 4-7 03/27/20 12:15 03/27/20 13:15 DC Nicotine (Nicoderm Cq 21mg) 1 patch DAILY TD 03/31/20 09:00 04/09/20 08:53 Nitroglycerin (Nitrostat (1/ 150)) 0.4 mg Q5MP PRN SL CHEST PAIN 03/27/20 05:30 Ondansetron HCl (ZOFRAN INJection) 4 mg Q4HP PRN IV NAUSEA OR VOMITING 03/27/20 12:15 03/27/20 13:15 DC Ondansetron HCl (ZOFRAN INJection) 4 mg Q6H PRN IV NAUSEA 03/27/20 13:00 04/03/20 10:47 DC Oxycodone/ Acetaminophen (Percocet 5mg/ 325mg Tablet) 1 tab Q4H PRN PO MODERATE PAIN (PS 5-7) 03/27/20 13:00 04/09/20 08:52 Pantoprazole Sodium (Protonix) 40 mg BID PO 03/27/20 05:30 04/09/20 08:52 Pantoprazole Sodium (Protonix) 40 mg DAILY PO 03/27/20 09:00 03/27/20 05:35 DC Prednisolone Acetate (Predforte 1% Ophth Susp) 2 drop BID OS 04/01/20 21:00 04/09/20 08:53 Prednisone (Deltasone) 40 mg DAILY PO 03/27/20 09:00 03/29/20 10:56 DC 03/29/20 09:45 Prednisone (Deltasone) 40 mg DAILY PO 03/31/20 09:00 04/02/20 08:00 DC 04/02/20 07:48 Psyllium Hydrophilic Mucilloid (Metamucil) 1 pkt DAILY PO 03/27/20 09:00 04/09/20 08:53 Ramelteon (Rozerem) 8 mg QHS PRN PO INSOMNIA 04/04/20 01:15 04/08/20 20:46 Salmeterol Xinafoate/ Fluticasone (Advair Hfa 230/ 21) 2 puff RBID INH 03/27/20 20:00 04/09/20 08:16 Sodium Chloride 1,000 ml @ 70 mls/hr [id number] IV 03/27/20 08:00 03/27/20 17:54 DC 03/27/20 08:32 Sodium Chloride 1,000 ml @ 80 mls/hr [id number] IV 04/06/20 13:30 04/08/20 15:48 DC 04/08/20 02:54 Spironolactone (Aldactone) 25 mg DAILY PO 03/27/20 09:00 04/06/20 13:29 DC 04/06/20 09:23 Sucralfate (Carafate) 1 gm BID PO 03/27/20 09:00 04/09/20 08:53 Tamsulosin HCl (Flomax) 0.4 mg DAILY PO 03/27/20 09:00 04/09/20 08:52 Tiotropium Mobile (Spiriva Handihaler) 1 inhalation DAILY@0800 INH 03/27/20 08:00 03/28/20 10:40 DC 03/28/20 07:51 Torsemide (Demadex) 40 mg BID@, PO 03/27/20 09:00 03/29/20 08:41 DC 03/28/20 17:18 Torsemide (Demadex) 60 mg BID@, PO 04/06/20 17:00 04/09/20 08:53 Torsemide (Demadex) 80 mg BID PO 03/27/20 09:00 03/27/20 07:58 DC Torsemide (Demadex) 80 mg BID@, PO 03/31/20 09:00 04/06/20 13:30 DC 04/06/20 09:23 Allergies Coded Allergies: Sulfa (Sulfonamide Antibiotics) (Verified Allergy, Mild, RASH, 09/30/19) latex (Verified Allergy, Mild, rash, 09/30/19) shellfish derived (Verified Allergy, Mild, ITCHING, 09/30/19) hydrocodone (Verified Adverse Reaction, Mild, 09/30/19) confusion Sydney Shen MD Apr 09, 2020 16:19
[2020-04-09 20:12] VITALS: BP 119/80
[2020-04-09] MEDS: RAMELTEON 8 MG TAB (ROZEREM) PO PRN (21:54)
[2020-04-10] VITALS (9 sets, daily range): BP systolic 105–119; BP diastolic 48–64
[2020-04-10] MEDS: IPRATROPIUM 0.5MG/ALBUTEROL 2.5MG INH SOL UD 3ML (DUONEB) NEB SCH ×6 (02:22→23:03)
[2020-04-10] MEDS: LevoFLOXacin 500 MG TABLET PO SCH (05:27)
[2020-04-10] MEDS: LEVOTHYROXINE 75MCG TABLET (0.075MG) PO SCH (05:27)
[2020-04-10] MEDS: PERCOCET 5MG/325MG TAB PO PRN ×2 (05:48→17:25)
[2020-04-10] MEDS: ADVAIR HFA 230/21MCG INHALER INH SCH ×2 (08:20→20:48)
[2020-04-10] MEDS: ASPIRIN 81 MG ENTERIC TAB PO SCH ×2 (08:37→20:27)
[2020-04-10] MEDS: MOM 30ML SUSPENSION UDC PO SCH (08:37)
[2020-04-10] MEDS: FINASTERIDE 5 MG TAB PO SCH (08:40)
[2020-04-10] MEDS: LACTOBACILLUS ACIDOPHILUS CAP (BACID) PO SCH ×2 (08:40→17:25)
[2020-04-10] MEDS: TAMSULOSIN 0.4 MG CAP PO SCH (08:40)
[2020-04-10] MEDS: SUCRALFATE 1 GM TAB PO SCH ×2 (08:41→20:26)
[2020-04-10] MEDS: DOCUSATE SODIUM 100MG CAPSULE PO SCH ×2 (08:41→20:27)
[2020-04-10] MEDS: METAMUCIL (PSYLLIUM) PACKET PO SCH (08:41)
[2020-04-10] MEDS: FERROUS SULFATE 325MG TAB PO SCH ×2 (08:41→20:27)
[2020-04-10] MEDS: PANTOPRAZOLE 40MG TAB (PROTONIX) PO SCH ×2 (08:41→20:27)
[2020-04-10] MEDS: prednisoLONE ACET 1% OPHTH SUSP 5ML OS SCH ×2 (08:42→20:26)
[2020-04-10] MEDS: NICOTINE 21MG/24HR 1 EA TRANSDERMAL TD SCH (08:42)
[2020-04-10] MEDS: DICLOFENAC EPOLAMINE 1.3 % PATCH TOP SCH ×2 (08:42→20:16)
[2020-04-10] MEDS: TORSEMIDE 20 MG TAB PO SCH ×2 (08:42→17:25)
[2020-04-10 10:03] LABS: HEMATOCRIT 25.7 % (42.0-52.0); HEMOGLOBIN 7.7 g/dl (13.5-17.5); MEAN CORPUSCULAR HEMOGLOBIN 27.8 pg (27.0-33.0); MEAN CORPUSCULAR VOLUME 92.8 fl (80.0-96.0); PLATELET COUNT, AUTOMATED 250 10^3/uL (150-450); RED BLOOD COUNT 2.77 10^6/uL (4.30-6.10); WHITE BLOOD COUNT 14.4 10^3/uL (4.0-10.0)
[2020-04-10 10:39] LABS: ALBUMIN 2.5 GM/DL (3.2-5.2); ALT/SGPT 11 U/L (12-78); BILIRUBIN,TOTAL 0.3 MG/DL (0.2-1.0); BLOOD UREA NITROGEN 17 MG/DL (7-18); CALCIUM LEVEL 8.3 MG/DL (8.8-10.2); CARBON DIOXIDE LEVEL 35 MEQ/L (21-32); CHLORIDE LEVEL 98 MEQ/L (98-107); CREATININE FOR GFR 0.99 MG/DL (0.70-1.30); GLOMERULAR FILTRATION RATE > 60.0 (>42); GLUCOSE, FASTING 97 MG/DL (70-100); POTASSIUM SERUM 4.2 MEQ/L (3.5-5.1); SODIUM LEVEL 136 MEQ/L (136-145); TOTAL PROTEIN 5.1 GM/DL (6.4-8.2)
--- NOTE | 2020-04-10 13:16 | IPNPDOC ---
Date Seen The patient was seen on 04/10/20. Progress Note SUBJECTIVE: Left groin pain much improved. H/H continues to drop, occult blood neg. Not suspicious of bleed but likely chronic anemia. Pt agreed to blood transfusion today. Otherwise, no acute complaints overnight. Denies chest pain, incr SOB, fevers, chills, n/v/d. OBJECTIVE: VITAL SIGNS: Please see below GEN: NAD HEENT:NCAT, EOM intact, nasal cannula in place CVS: RRR, no murmurs, rubs or gallops, + lower extremity edema LUNGS: decreased breath sounds b/l- baseline , no rhonchi ABD: no lower left and right abd discomfort on palpation, no organomegaly, normoactive sounds, soft EXTREMITIES: bilateral LE edema, otherwise WWP SKIN: healing incisions on R hip : trujillo catheter NEURO: CN 2-12 are grossly intact, no focal deficits, AAOx 3 LABORATORY DATA: Please see below Microbiology: Chronic trujillo, straight cath collection - REFLEX URINE CULTURE Final Organism 1 PSEUDOMONAS AERUGINOSA COLONY COUNT 100,000 CFU/ml Organism 2 KLEBSIELLA OXYTOCA COLONY COUNT 100,000 CFU/ml Organism 3 ESCHERICHIA COLI COLONY COUNT 100,000 CFU/ml Organism 4 SERRATIA MARCESCENS COLONY COUNT 100,000 CFU/ml Organism 5 ENTEROCOCCUS FAECALIS COLONY COUNT 100,000 CFU/ml Organism 6 STREP GALLOLYTICUS SSP NICOLAS COLONY COUNT 100,000 CFU/ml IMAGING: CT abd/pelvis: No acute intra-abdominal abnormality. Trujillo catheter in place. Stable hepatic and right renal cysts. Small sliding-type hiatal hernia again noted. There is some increased platelike atelectasis in the left lower lobe of the lung. CXR 04/04/20: No acute infiltrate. Cardiomegaly with multilead pacemaker. Elevated left hemidiaphragm. Some vascular congestion. CXR 03/28/20: Chronic changes. Mild superimposed atelectasis/infiltrate left lung base in the retrocardiac region. AXR: developing ileus MICROBIOLOGY: Please see below. ASSESSMENT: 75 yr old smoker w a hx of CAD, BPH, COPD with chronic O2 dependent respiratory failure on home 3L NC, CKD 3, HFpEF, Osteoporosis, Pulmonary HTN / Cor Pulmonale, Hypothyroidism, Chronic Anemia, Murphy's esophagus / GERD, Chronic back pain, Dementia, BPH and unsteady gait who presented to the hospital for evaluation after missing his chair while trying to sit down and landing on his right side he will be admitted for management of R femur fx, with postop course c/b acute on chronic hypoxemic respiratory failure with acute on chronic HFpEF, COPD exacerbation and presumed PNA and mixed rody bacteriuria, and an ileus. Now stable however with rising leukocytosis with a stable examination. PLAN: #Acute on Chronic Anemia -H/H lower today at 7.7/25, occult blood neg so not likely bleed -Dropped some with hydrating over the past several days but should have normalized if just dilutional -1 U PRBC to be transfused today, f/u post transfusion H/H -F/u ferritin, iron, TIBC -Daily CBC #Left groin pain likely 2/2 to sprain/strain-improved -State this occurred 04/07/20 when he was on CT table before CT abd/pelvis was done -No hernia, erythema or abnormal findings on CT abd/pelvis -Pain control with current regimen -C/w PT/OT #Leukocytosis likely 2/2 to UTI? vs. delayed reactive leukocytosis from surgery. -WBC 14.4, afebrile -CT abd/pelvis: neg -CXR above so unlikely lungs as source of infection -UCx above -On levofloxacin (Day 10/13). -Monitor CBC #Acute on chronic respiratory failure likely multifactorial, currently with suspicion of acute on chronic HFpEF, COPD exacerbation and possible PNA- improved. -At baseline, uses 3 L at home -CXR showed superimposed atelectasis/infiltrate left lung base in the retrocardiac region on admission- Repeat from 04/04: no PNA -Received 5 days levofloxcin, restarted on 04/05/20. -C/w decreased torsemide PO BID, stopped spironolactone, C/w duonebs ATC, albuterol PRN -Consider reintroducing spironolactone at lower dose 12.5 PO BID -Incentive spirometer ordered Q2H while awake. #Acute on chronic HFpEF -See treatment plan above. #Right femur fracture s/p mechanical Fall -S/p closed reduction and fixation of hip fracture with cephalomedullary implant/TFN nail -No increased pain, erythema -Hx of unsteady gait, osteoporosis -Pain is control, PT/OT -C/w calcium with vitamin D, ASA BID -Ortho following #CAD -C/w Aspirin, nitroglycerine #BPH -chronic trujillo -C/w Tamsulosin, finasteride #CKD 3 -at baseline #Chronic back pain -C/w Percocet, Acetaminophen & Flector patch #Dementia -AAOX3 currently -At baseline #Hypothyroidism -TSH Dec 2019 0.726 -C/w levothyroxine #GERD Murphy's -PPI and Carafate #DVT Px -SCDs, ASA BID Resolved issues: COPD exacerbation Community acquired PNA Ileus Hyperkalemia likely 2/2 to overdiuresis, spironolactone Hyponatremia, hypochloridemia likely 2/2 to overdiuresis DISPOSITION: Rehab at [facility] hopefully after weekend. VS, I&O, 24H, Fishbone Vital Signs/I&O Vital Signs Date Time Temp Pulse Resp B/P (MAP) Pulse Ox O2 Delivery O2 Flow Rate FiO2 04/10/20 09:00 3.0 04/10/20 06:36 98.5 76 20 106/48 (67) 96 Room Air I&O- Last 24 Hours up to 6 AM 04/10/20 05:59 Intake Total 1690 ml Output Total 2300 ml Balance -610 ml Laboratory Data 24H LABS Laboratory Tests 2 04/10/20 09:20: Nucleated Red Blood Cells % (auto) 0.0, Anion Gap 3L, Glomerular Filtration Rate > 60.0, Calcium Level 8.3L, Total Bilirubin 0.3, Aspartate Amino Transf (AST/SGOT) 11, Alanine Aminotransferase (ALT/SGPT) 11L, Alkaline Phosphatase 100, Total Protein 5.1L, Albumin 2.5L, Albumin/Globulin Ratio 1.0 CBC/BMP Laboratory Tests 04/10/20 09:20 Microbiology Microbiology 04/09/20 Stool Occult Blood (DAPHNEY) - Final, Complete Current Medications Current Medications Medications (Trade) Dose Ordered Sig/Will Route PRN Reason Start Time Stop Time Status Last Admin Dose Admin Acetaminophen (Tylenol Tab) 650 mg Q4H PRN PO MILD PAIN OR FEVER 03/27/20 03:45 03/27/20 14:03 DC Acetaminophen (Tylenol Tab) 650 mg Q4HP PRN PO mild pain 03/27/20 14:00 04/07/20 06:03 Al Hydrox/Mg Hydrox/Simethicone (Mylanta) 30 ml DAILY PRN PO DYSPEPSIA 03/27/20 03:45 Albuterol Sulfate (Proventil Neb) 2.5 mg Q1HP PRN NEB SHORTNESS OF BREATH 03/27/20 04:30 03/27/20 05:35 DC Albuterol Sulfate (Proventil Neb) 2.5 mg Q2HP PRN NEB SOB/WHEEZING 03/28/20 16:15 Albuterol Sulfate (Proventil Neb) 2.5 mg RQ6H NEB 03/27/20 20:00 03/28/20 10:40 DC 03/28/20 03:32 Albuterol/ Ipratropium (Duoneb (Ipr 0.5mg/Alb 2.5mg)) 3 ml RQ4H NEB 03/28/20 12:00 04/10/20 11:29 Albuterol/ Ipratropium (Duoneb (Ipr 0.5mg/Alb 2.5mg)) 3 ml RQ6H NEB 03/27/20 08:00 03/27/20 17:02 DC 03/27/20 07:26 Alvimopan (Entereg) 12 mg BID PO 03/29/20 09:00 04/05/20 08:59 DC 04/04/20 21:56 Aspirin (Ecotrin) 81 mg BID PO 03/28/20 09:00 04/10/20 08:37 Cefazolin Sodium/ Dextrose 2 gm/IV Miscellaneous Supplies 50 ml @ 75 mls/hr ASDIRECTED IV 03/27/20 06:00 03/27/20 12:01 DC Cefazolin Sodium/ Dextrose 2 gm/IV Miscellaneous Supplies 50 ml @ 75 mls/hr Q6H IV 03/27/20 16:00 03/27/20 22:39 DC 03/27/20 21:41 Diatrizoate Meglum/ Diatrizoate Sod (Gastrografin) 10 ml Q30M PO 04/07/20 09:30 04/07/20 10:05 DC 04/07/20 10:39 Diclofenac Epolamine (Flector 1.3%) 1 patch Q12H TOP 03/27/20 09:00 04/06/20 09:24 Docusate Sodium (Colace) 100 mg BID PO 03/28/20 21:00 04/10/20 08:41 Fentanyl Citrate (Sublimaze) 25 mcg Q5MP PRN IV PAIN LEVEL 5-10 03/27/20 12:15 03/27/20 13:15 DC Ferrous Sulfate (Ferrous Sulfate) 325 mg BID PO 03/28/20 21:00 04/10/20 08:41 Finasteride (Proscar) 5 mg DAILY PO 03/27/20 09:00 04/10/20 08:40 Furosemide (LASIX injection) 40 mg DAILY IV 03/28/20 10:45 03/29/20 08:41 DC 03/28/20 11:07 Furosemide (LASIX injection) 80 mg BID IV 03/29/20 09:00 03/29/20 08:45 DC Furosemide (LASIX injection) 80 mg BID@0900,1700 IV 03/29/20 09:00 03/30/20 09:52 DC 03/30/20 08:30 Furosemide (LASIX injection) 80 mg DAILY IV 03/31/20 09:00 03/31/20 08:16 DC Home Med (Med Rec Complete!) ASDIRECTED XX 03/27/20 03:15 03/27/20 03:08 DC Lactated Ringer's 1,000 ml @ 60 mls/hr [id number] IV 03/27/20 03:45 03/27/20 07:58 DC 03/27/20 05:25 Lactated Ringer's 1,000 ml @ 80 mls/hr [id number] IV 03/27/20 12:15 03/27/20 13:15 DC Lactobacillus Acidophilus (Bacid) 1 ea BIDWM PO 04/05/20 18:00 04/10/20 08:40 Levalbuterol HCl (Xopenex Neb) 0.63 mg Q1HP PRN INH dyspnea 03/27/20 20:15 03/28/20 16:23 DC Levalbuterol HCl (Xopenex Neb) 0.63 mg Q4HP PRN INH dyspnea 03/27/20 05:30 03/27/20 20:05 DC 03/27/20 05:39 Levofloxacin (Levaquin) 500 mg DAILY@06 PO 04/06/20 06:00 04/13/20 05:59 04/10/20 05:27 Levofloxacin 750 mg/IV Miscellaneous Supplies 150 ml @ 100 mls/hr Q24H IV 03/28/20 13:00 04/01/20 15:05 DC 03/31/20 14:50 Levothyroxine Sodium (Synthroid) 75 mcg QAM PO 03/27/20 09:00 04/02/20 07:50 DC 04/01/20 07:59 Levothyroxine Sodium (Synthroid) 75 mcg QAM@0600 PO 04/02/20 06:00 04/10/20 05:27 Magnesium Hydroxide (Milk Of Magnesia) 30 ml DAILY PO 03/31/20 06:30 04/10/20 08:37 Magnesium Hydroxide (Milk Of Magnesia) 30 ml DAILY PRN PO CONSTIPATION 03/27/20 03:45 03/31/20 06:27 DC Methylprednisolone (SOLUmedrol) 60 mg DAILY IV 03/30/20 09:00 03/31/20 08:19 DC 03/30/20 10:12 Methylprednisolone (SOLUmedrol) 60 mg Q12H IV 03/28/20 11:00 03/30/20 09:52 DC 03/29/20 23:17 Methylprednisolone (SOLUmedrol) 125 mg STAT STAT IV 03/27/20 04:21 03/27/20 04:22 DC 03/27/20 05:24 Morphine Sulfate (Morphine Sulfate Inj) 2 mg Q2H PRN IV MODERATE/SEVERE PAIN (PS 5-10) 03/27/20 03:45 03/27/20 12:51 DC 03/27/20 06:31 Morphine Sulfate (Morphine Sulfate Inj) 2 mg Q2H PRN IV SEVERE PAIN (PS 8-10) 03/27/20 13:00 03/28/20 06:11 DC Morphine Sulfate (Morphine Sulfate Inj) 2 mg Q30M PRN IV MODERATE PAIN (PS 5-7) 03/27/20 02:00 03/27/20 03:14 DC 03/27/20 03:13 Morphine Sulfate (Morphine Sulfate Inj) 2 mg Q5MP PRN IV PAIN LEVEL 4-7 03/27/20 12:15 03/27/20 13:15 DC Nicotine (Nicoderm Cq 21mg) 1 patch DAILY TD 03/31/20 09:00 04/10/20 08:42 Nitroglycerin (Nitrostat (1/ 150)) 0.4 mg Q5MP PRN SL CHEST PAIN 03/27/20 05:30 Ondansetron HCl (ZOFRAN INJection) 4 mg Q4HP PRN IV NAUSEA OR VOMITING 03/27/20 12:15 03/27/20 13:15 DC Ondansetron HCl (ZOFRAN INJection) 4 mg Q6H PRN IV NAUSEA 03/27/20 13:00 04/03/20 10:47 DC Oxycodone/ Acetaminophen (Percocet 5mg/ 325mg Tablet) 1 tab Q4H PRN PO MODERATE PAIN (PS 5-7) 03/27/20 13:00 04/10/20 05:48 Pantoprazole Sodium (Protonix) 40 mg BID PO 03/27/20 05:30 04/10/20 08:41 Pantoprazole Sodium (Protonix) 40 mg DAILY PO 03/27/20 09:00 03/27/20 05:35 DC Prednisolone Acetate (Predforte 1% Ophth Susp) 2 drop BID OS 04/01/20 21:00 04/10/20 08:42 Prednisone (Deltasone) 40 mg DAILY PO 03/27/20 09:00 03/29/20 10:56 DC 03/29/20 09:45 Prednisone (Deltasone) 40 mg DAILY PO 03/31/20 09:00 04/02/20 08:00 DC 04/02/20 07:48 Psyllium Hydrophilic Mucilloid (Metamucil) 1 pkt DAILY PO 03/27/20 09:00 04/10/20 08:41 Ramelteon (Rozerem) 8 mg QHS PRN PO INSOMNIA 04/04/20 01:15 04/09/20 21:54 Salmeterol Xinafoate/ Fluticasone (Advair Hfa 230/ 21) 2 puff RBID INH 03/27/20 20:00 04/10/20 08:20 Sodium Chloride 1,000 ml @ 70 mls/hr [id number] IV 03/27/20 08:00 03/27/20 17:54 DC 03/27/20 08:32 Sodium Chloride 1,000 ml @ 80 mls/hr [id number] IV 04/06/20 13:30 04/08/20 15:48 DC 04/08/20 02:54 Spironolactone (Aldactone) 25 mg DAILY PO 03/27/20 09:00 04/06/20 13:29 DC 04/06/20 09:23 Sucralfate (Carafate) 1 gm BID PO 03/27/20 09:00 04/10/20 08:41 Tamsulosin HCl (Flomax) 0.4 mg DAILY PO 03/27/20 09:00 04/10/20 08:40 Tiotropium [place] (Spiriva Handihaler) 1 inhalation DAILY@0800 INH 03/27/20 08:00 03/28/20 10:40 DC 03/28/20 07:51 Torsemide (Demadex) 40 mg BID@ PO 03/27/20 09:00 03/29/20 08:41 DC 03/28/20 17:18 Torsemide (Demadex) 60 mg BID@, PO 04/06/20 17:00 04/10/20 08:42 Torsemide (Demadex) 80 mg BID PO 03/27/20 09:00 03/27/20 07:58 DC Torsemide (Demadex) 80 mg BID@ PO 03/31/20 09:00 04/06/20 13:30 DC 04/06/20 09:23 Allergies Coded Allergies: Sulfa (Sulfonamide Antibiotics) (Verified Allergy, Mild, RASH, 09/30/19) latex (Verified Allergy, Mild, rash, 09/30/19) shellfish derived (Verified Allergy, Mild, ITCHING, 09/30/19) hydrocodone (Verified Adverse Reaction, Mild, 09/30/19) confusion Sydney Shen MD Apr 10, 2020 13:16
[2020-04-10 19:00] LABS: HEMATOCRIT 30.7 % (42.0-52.0); HEMOGLOBIN 9.1 g/dl (13.5-17.5)
[2020-04-10] MEDS: ACETAMINOPHEN TAB 650MG DOSE (2X325MG) PO PRN (20:26)
[2020-04-10] MEDS: RAMELTEON 8 MG TAB (ROZEREM) PO PRN (20:26)
[2020-04-11] MEDS: IPRATROPIUM 0.5MG/ALBUTEROL 2.5MG INH SOL UD 3ML (DUONEB) NEB SCH ×6 (01:39→23:54)
[2020-04-11] MEDS ORDERED: SLF 3 ML SYR IV PRN (05:00)
[2020-04-11] MEDS: LevoFLOXacin 500 MG TABLET PO SCH (05:52)
[2020-04-11] MEDS: PERCOCET 5MG/325MG TAB PO PRN ×3 (05:52→21:53)
[2020-04-11] MEDS: LEVOTHYROXINE 75MCG TABLET (0.075MG) PO SCH (05:52)
[2020-04-11 06:00] VITALS: BP 118/67
[2020-04-11 06:35] LABS: HEMATOCRIT 29.5 % (42.0-52.0); HEMOGLOBIN 8.9 g/dl (13.5-17.5); MEAN CORPUSCULAR HEMOGLOBIN 27.6 pg (27.0-33.0); MEAN CORPUSCULAR HGB CONC 30.2 g/dl (32.0-36.5); MEAN CORPUSCULAR VOLUME 91.6 fl (80.0-96.0); PLATELET COUNT, AUTOMATED 266 10^3/uL (150-450); RED BLOOD COUNT 3.22 10^6/uL (4.30-6.10); WHITE BLOOD COUNT 18.5 10^3/uL (4.0-10.0)
[2020-04-11 07:07] LABS: ALBUMIN 2.6 GM/DL (3.2-5.2); ALT/SGPT 14 U/L (12-78); BILIRUBIN,TOTAL 0.4 MG/DL (0.2-1.0); BLOOD UREA NITROGEN 20 MG/DL (7-18); CALCIUM LEVEL 8.1 MG/DL (8.8-10.2); CARBON DIOXIDE LEVEL 35 MEQ/L (21-32); CHLORIDE LEVEL 99 MEQ/L (98-107); CREATININE FOR GFR 1.14 MG/DL (0.70-1.30); GLOMERULAR FILTRATION RATE > 60.0 (>42); GLUCOSE, FASTING 112 MG/DL (70-100); POTASSIUM SERUM 4.2 MEQ/L (3.5-5.1); SODIUM LEVEL 136 MEQ/L (136-145); TOTAL PROTEIN 5.4 GM/DL (6.4-8.2)
[2020-04-11 07:15] LABS: PERCENT SATURATION 15.8 % (19.7-50.0)
[2020-04-11 07:38] VITALS: O2SAT 96
[2020-04-11] MEDS: ADVAIR HFA 230/21MCG INHALER INH SCH ×2 (07:38→19:23)
[2020-04-11] MEDS ORDERED: LEVO500T3 PO (08:16)
[2020-04-11] MEDS: DOCUSATE SODIUM 100MG CAPSULE PO SCH ×2 (08:32→21:52)
[2020-04-11] MEDS: METAMUCIL (PSYLLIUM) PACKET PO SCH ×2 (08:32→08:37)
[2020-04-11] MEDS: NICOTINE 21MG/24HR 1 EA TRANSDERMAL TD SCH (08:32)
[2020-04-11] MEDS: ASPIRIN 81 MG ENTERIC TAB PO SCH ×2 (08:32→21:52)
[2020-04-11] MEDS: MOM 30ML SUSPENSION UDC PO SCH (08:32)
[2020-04-11] MEDS: LACTOBACILLUS ACIDOPHILUS CAP (BACID) PO SCH ×2 (08:33→17:12)
[2020-04-11] MEDS: FINASTERIDE 5 MG TAB PO SCH (08:33)
[2020-04-11] MEDS: SUCRALFATE 1 GM TAB PO SCH ×2 (08:33→21:52)
[2020-04-11] MEDS: PANTOPRAZOLE 40MG TAB (PROTONIX) PO SCH ×2 (08:33→21:52)
[2020-04-11] MEDS: TORSEMIDE 20 MG TAB PO SCH ×2 (08:33→17:12)
[2020-04-11] MEDS: TAMSULOSIN 0.4 MG CAP PO SCH (08:33)
[2020-04-11] MEDS: FERROUS SULFATE 325MG TAB PO SCH ×2 (08:33→21:52)
[2020-04-11] MEDS: DICLOFENAC EPOLAMINE 1.3 % PATCH TOP SCH ×2 (08:34→21:00)
[2020-04-11] MEDS: prednisoLONE ACET 1% OPHTH SUSP 5ML OS SCH ×2 (08:34→21:53)
[2020-04-11 14:00] VITALS: BP 98/55
[2020-04-11] MEDS: SLF 3 ML SYR IV SCH ×2 (14:10→21:53)
--- NOTE | 2020-04-11 17:19 | IPNPDOC ---
Date Seen The patient was seen on 04/11/20. Progress Note SUBJECTIVE: S/p 1 U PRBC, H/H improved. Abd XR ordered for left groin pain as it persists. No other complaints. Denies chest pain, incr SOB, fevers, chills, n/v/d. OBJECTIVE: VITAL SIGNS: Please see below GEN: NAD HEENT:NCAT, EOM intact, nasal cannula in place CVS: RRR, no murmurs, rubs or gallops, + lower extremity edema LUNGS: decreased breath sounds b/l- baseline , no rhonchi ABD: mild left groin pain, no organomegaly, normoactive sounds, soft EXTREMITIES: bilateral LE edema, otherwise WWP SKIN: healing incisions on R hip : trujillo catheter NEURO: CN 2-12 are grossly intact, no focal deficits, AAOx 3 LABORATORY DATA: Please see below Microbiology: Chronic trujillo, straight cath collection - REFLEX URINE CULTURE Final Organism 1 PSEUDOMONAS AERUGINOSA COLONY COUNT 100,000 CFU/ml Organism 2 KLEBSIELLA OXYTOCA COLONY COUNT 100,000 CFU/ml Organism 3 ESCHERICHIA COLI COLONY COUNT 100,000 CFU/ml Organism 4 SERRATIA MARCESCENS COLONY COUNT 100,000 CFU/ml Organism 5 ENTEROCOCCUS FAECALIS COLONY COUNT 100,000 CFU/ml Organism 6 STREP GALLOLYTICUS SSP NICOLAS COLONY COUNT 100,000 CFU/ml IMAGING: CT abd/pelvis: No acute intra-abdominal abnormality. Trujillo catheter in place. Stable hepatic and right renal cysts. Small sliding-type hiatal hernia again noted. There is some increased platelike atelectasis in the left lower lobe of the lung. CXR 04/04/20: No acute infiltrate. Cardiomegaly with multilead pacemaker. Elevated left hemidiaphragm. Some vascular congestion. CXR 03/28/20: Chronic changes. Mild superimposed atelectasis/infiltrate left lung base in the retrocardiac region. AXR: developing ileus MICROBIOLOGY: Please see below. ASSESSMENT: 75 yr old smoker w a hx of CAD, BPH, COPD with chronic O2 dependent respiratory failure on home 3L NC, CKD 3, HFpEF, Osteoporosis, Pulmonary HTN / Cor Pulmonale, Hypothyroidism, Chronic Anemia, Murphy's esophagus / GERD, Chronic back pain, Dementia, BPH and unsteady gait who presented to the hospital for evaluation after missing his chair while trying to sit down and landing on his right side he will be admitted for management of R femur fx, with postop course c/b acute on chronic hypoxemic respiratory failure with acute on chronic HFpEF, COPD exacerbation and presumed PNA and mixed rody bacteriuria, and an ileus. Now stable however with rising leukocytosis with a stable examination. PLAN: #Acute on Chronic Iron deficiency Anemia -S/p 1 U PRBC, H/H 8.9/29.5 -Occult blood neg so not likely bleed -Dropped some with hydrating over the past several days but should have normalized if just dilutional -Started on iron supplement -Daily CBC #Left groin pain likely 2/2 to sprain/strain -Had resolved on 04/10/20 but returned today -State this pain occurred 04/07/20 when he was on CT table before CT abd/pelvis was done -No hernia, erythema or abnormal findings on CT abd/pelvis -F/u abd XR today -Pain control with current regimen -C/w PT/OT #Leukocytosis likely 2/2 to UTI? vs. delayed reactive leukocytosis from surgery. Could be chronic leukocytosis requiring o/p workup. -Patient has had persistently high WBC this hospital stay with extensive workup neg except for polymicrobial UTI -Since 2017, he has had mostly elevated WBC count during hospitalizations -WBC today slightly more elevated 18.5, afebrile -CT abd/pelvis: neg -CXR : unlikely lungs as source of infection -UCx above -On levofloxacin (Day 7). -Had discussed the case previously with Dr. Reza (not consulted) and recommended CT Abd/pelvis (ended up neg) and treatment with 10 days PO abx UTI. -F/u Abd xr but if neg would not debbie another source of infection as this gentleman has had a very extensive infection workup. -Monitor CBC #Acute on chronic respiratory failure likely multifactorial, currently with suspicion of acute on chronic HFpEF, COPD exacerbation and possible PNA- improved. -At baseline, uses 3 L at home -CXR showed superimposed atelectasis/infiltrate left lung base in the retrocardiac region on admission- Repeat from 04/04: no PNA -Received 5 days levofloxcin, restarted on 04/05/20. -C/w decreased torsemide PO BID, stopped spironolactone, C/w duonebs ATC, albuterol PRN -Consider reintroducing spironolactone at lower dose 12.5 PO BID -Incentive spirometer ordered Q2H while awake. #Acute on chronic HFpEF -See treatment plan above. #Right femur fracture s/p mechanical Fall -S/p closed reduction and fixation of hip fracture with cephalomedullary implant/TFN nail -No increased pain, erythema -Hx of unsteady gait, osteoporosis -Pain is control, PT/OT -C/w calcium with vitamin D, ASA BID -Ortho following #CAD -C/w Aspirin, nitroglycerine #BPH -chronic trujillo -C/w Tamsulosin, finasteride #CKD 3 -at baseline #Chronic back pain -C/w Percocet, Acetaminophen & Flector patch #Dementia -AAOX3 currently -At baseline #Hypothyroidism -TSH Dec 2019 0.726 -C/w levothyroxine #GERD Murphy's -PPI and Carafate #DVT Px -SCDs, ASA BID Resolved issues: COPD exacerbation Community acquired PNA Ileus Hyperkalemia likely 2/2 to overdiuresis, spironolactone Hyponatremia, hypochloridemia likely 2/2 to overdiuresis DISPOSITION: There has been a stand still for patient going to rehab at [facility]. Discussed with PFS today. Unknown if alternatives are being looked at for rehab at this time but this may want to be part of discussion with provider and PFS, the family and patient. VS, I&O, 24H, [place] Vital Signs/I&O Vital Signs Date Time Temp Pulse Resp B/P (MAP) Pulse Ox O2 Delivery O2 Flow Rate FiO2 04/11/20 14:00 97.0 87 20 98/55 (69) 95 Nasal Cannula 3.0 04/10/20 17:23 94 I&O- Last 24 Hours up to 6 AM 04/11/20 05:59 Intake Total 2220 ml Output Total 2150 ml Balance 70 ml Laboratory Data 24H LABS Laboratory Tests 2 04/11/20 06:01: Nucleated Red Blood Cells % (auto) 0.0, Anion Gap 2L, Glomerular Filtration Rate > 60.0, Calcium Level 8.1L, Iron Level 47L, Total Iron Binding Capacity 298, Transferrin % Saturation 15.8L, Ferritin 71, Total Bilirubin 0.4, Aspartate Amino Transf (AST/SGOT) 12, Alanine Aminotransferase (ALT/SGPT) 14, Alkaline Phosphatase 108, Total Protein 5.4L, Albumin 2.6L, Albumin/Globulin Ratio 0.9 CBC/BMP Laboratory Tests 04/10/20 18:50 04/11/20 06:01 Microbiology Microbiology 04/09/20 Stool Occult Blood (DAPHNEY) - Final, Complete Current Medications Current Medications Medications (Trade) Dose Ordered Sig/Will Route PRN Reason Start Time Stop Time Status Last Admin Dose Admin Acetaminophen (Tylenol Tab) 650 mg Q4H PRN PO MILD PAIN OR FEVER 03/27/20 03:45 03/27/20 14:03 DC Acetaminophen (Tylenol Tab) 650 mg Q4HP PRN PO mild pain 03/27/20 14:00 04/10/20 20:26 Al Hydrox/Mg Hydrox/Simethicone (Mylanta) 30 ml DAILY PRN PO DYSPEPSIA 03/27/20 03:45 Albuterol Sulfate (Proventil Neb) 2.5 mg Q1HP PRN NEB SHORTNESS OF BREATH 03/27/20 04:30 03/27/20 05:35 DC Albuterol Sulfate (Proventil Neb) 2.5 mg Q2HP PRN NEB SOB/WHEEZING 03/28/20 16:15 Albuterol Sulfate (Proventil Neb) 2.5 mg RQ6H NEB 03/27/20 20:00 03/28/20 10:40 DC 03/28/20 03:32 Albuterol/ Ipratropium (Duoneb (Ipr 0.5mg/Alb 2.5mg)) 3 ml RQ4H NEB 03/28/20 12:00 04/11/20 15:00 Albuterol/ Ipratropium (Duoneb (Ipr 0.5mg/Alb 2.5mg)) 3 ml RQ6H NEB 03/27/20 08:00 03/27/20 17:02 DC 03/27/20 07:26 Alvimopan (Entereg) 12 mg BID PO 03/29/20 09:00 04/05/20 08:59 DC 04/04/20 21:56 Aspirin (Ecotrin) 81 mg BID PO 03/28/20 09:00 04/11/20 08:32 Cefazolin Sodium/ Dextrose 2 gm/IV Miscellaneous Supplies 50 ml @ 75 mls/hr ASDIRECTED IV 03/27/20 06:00 03/27/20 12:01 DC Cefazolin Sodium/ Dextrose 2 gm/IV Miscellaneous Supplies 50 ml @ 75 mls/hr Q6H IV 03/27/20 16:00 03/27/20 22:39 DC 03/27/20 21:41 Diatrizoate Meglum/ Diatrizoate Sod (Gastrografin) 10 ml Q30M PO 04/07/20 09:30 04/07/20 10:05 DC 04/07/20 10:39 Diclofenac Epolamine (Flector 1.3%) 1 patch Q12H TOP 03/27/20 09:00 04/06/20 09:24 Docusate Sodium (Colace) 100 mg BID PO 03/28/20 21:00 04/11/20 08:32 Fentanyl Citrate (Sublimaze) 25 mcg Q5MP PRN IV PAIN LEVEL 5-10 03/27/20 12:15 03/27/20 13:15 DC Ferrous Sulfate (Ferrous Sulfate) 325 mg BID PO 03/28/20 21:00 04/11/20 08:33 Finasteride (Proscar) 5 mg DAILY PO 03/27/20 09:00 04/11/20 08:33 Furosemide (LASIX injection) 40 mg DAILY IV 03/28/20 10:45 03/29/20 08:41 DC 03/28/20 11:07 Furosemide (LASIX injection) 80 mg BID IV 03/29/20 09:00 03/29/20 08:45 DC Furosemide (LASIX injection) 80 mg BID@0900,1700 IV 03/29/20 09:00 03/30/20 09:52 DC 03/30/20 08:30 Furosemide (LASIX injection) 80 mg DAILY IV 03/31/20 09:00 03/31/20 08:16 DC Home Med (Med Rec Complete!) ASDIRECTED XX 03/27/20 03:15 03/27/20 03:08 DC Lactated Ringer's 1,000 ml @ 60 mls/hr [id number] IV 03/27/20 03:45 03/27/20 07:58 DC 03/27/20 05:25 Lactated Ringer's 1,000 ml @ 80 mls/hr [id number] IV 03/27/20 12:15 03/27/20 13:15 DC Lactobacillus Acidophilus (Bacid) 1 ea BIDWM PO 04/05/20 18:00 04/11/20 08:33 Levalbuterol HCl (Xopenex Neb) 0.63 mg Q1HP PRN INH dyspnea 03/27/20 20:15 03/28/20 16:23 DC Levalbuterol HCl (Xopenex Neb) 0.63 mg Q4HP PRN INH dyspnea 03/27/20 05:30 03/27/20 20:05 DC 03/27/20 05:39 Levofloxacin (Levaquin) 500 mg DAILY@06 PO 04/06/20 06:00 04/13/20 05:59 04/11/20 05:52 Levofloxacin 750 mg/IV Miscellaneous Supplies 150 ml @ 100 mls/hr Q24H IV 03/28/20 13:00 04/01/20 15:05 DC 03/31/20 14:50 Levothyroxine Sodium (Synthroid) 75 mcg QAM PO 03/27/20 09:00 04/02/20 07:50 DC 04/01/20 07:59 Levothyroxine Sodium (Synthroid) 75 mcg QAM@0600 PO 04/02/20 06:00 04/11/20 05:52 Magnesium Hydroxide (Milk Of Magnesia) 30 ml DAILY PO 03/31/20 06:30 04/11/20 08:32 Magnesium Hydroxide (Milk Of Magnesia) 30 ml DAILY PRN PO CONSTIPATION 03/27/20 03:45 03/31/20 06:27 DC Methylprednisolone (SOLUmedrol) 60 mg DAILY IV 03/30/20 09:00 03/31/20 08:19 DC 03/30/20 10:12 Methylprednisolone (SOLUmedrol) 60 mg Q12H IV 03/28/20 11:00 03/30/20 09:52 DC 03/29/20 23:17 Methylprednisolone (SOLUmedrol) 125 mg STAT STAT IV 03/27/20 04:21 03/27/20 04:22 DC 03/27/20 05:24 Morphine Sulfate (Morphine Sulfate Inj) 2 mg Q2H PRN IV MODERATE/SEVERE PAIN (PS 5-10) 03/27/20 03:45 03/27/20 12:51 DC 03/27/20 06:31 Morphine Sulfate (Morphine Sulfate Inj) 2 mg Q2H PRN IV SEVERE PAIN (PS 8-10) 03/27/20 13:00 03/28/20 06:11 DC Morphine Sulfate (Morphine Sulfate Inj) 2 mg Q30M PRN IV MODERATE PAIN (PS 5-7) 03/27/20 02:00 03/27/20 03:14 DC 03/27/20 03:13 Morphine Sulfate (Morphine Sulfate Inj) 2 mg Q5MP PRN IV PAIN LEVEL 4-7 03/27/20 12:15 03/27/20 13:15 DC Nicotine (Nicoderm Cq 21mg) 1 patch DAILY TD 03/31/20 09:00 04/11/20 08:32 Nitroglycerin (Nitrostat (1/ 150)) 0.4 mg Q5MP PRN SL CHEST PAIN 03/27/20 05:30 Ondansetron HCl (ZOFRAN INJection) 4 mg Q4HP PRN IV NAUSEA OR VOMITING 03/27/20 12:15 03/27/20 13:15 DC Ondansetron HCl (ZOFRAN INJection) 4 mg Q6H PRN IV NAUSEA 03/27/20 13:00 04/03/20 10:47 DC Oxycodone/ Acetaminophen (Percocet 5mg/ 325mg Tablet) 1 tab Q4H PRN PO MODERATE PAIN (PS 5-7) 03/27/20 13:00 04/11/20 11:00 Pantoprazole Sodium (Protonix) 40 mg BID PO 03/27/20 05:30 04/11/20 08:33 Pantoprazole Sodium (Protonix) 40 mg DAILY PO 03/27/20 09:00 03/27/20 05:35 DC Prednisolone Acetate (Predforte 1% Ophth Susp) 2 drop BID OS 04/01/20 21:00 04/11/20 08:34 Prednisone (Deltasone) 40 mg DAILY PO 03/27/20 09:00 03/29/20 10:56 DC 03/29/20 09:45 Prednisone (Deltasone) 40 mg DAILY PO 03/31/20 09:00 04/02/20 08:00 DC 04/02/20 07:48 Psyllium Hydrophilic Mucilloid (Metamucil) 1 pkt DAILY PO 03/27/20 09:00 04/10/20 08:41 Ramelteon (Rozerem) 8 mg QHS PRN PO INSOMNIA 04/04/20 01:15 04/10/20 20:26 Salmeterol Xinafoate/ Fluticasone (Advair Hfa 230/ 21) 2 puff RBID INH 03/27/20 20:00 04/11/20 07:38 Sodium Chloride 1,000 ml @ 70 mls/hr [id number] IV 03/27/20 08:00 03/27/20 17:54 DC 03/27/20 08:32 Sodium Chloride 1,000 ml @ 80 mls/hr [id number] IV 04/06/20 13:30 04/08/20 15:48 DC 04/08/20 02:54 Sodium Chloride (Saline Lock Flush) 2 ml ASDIRECTED PRN IV SEE LABEL COMMENTS 04/11/20 05:00 Sodium Chloride (Saline Lock Flush) 2 ml SLF IV 04/11/20 14:00 04/11/20 14:10 Spironolactone (Aldactone) 25 mg DAILY PO 03/27/20 09:00 04/06/20 13:29 DC 04/06/20 09:23 Sucralfate (Carafate) 1 gm BID PO 03/27/20 09:00 04/11/20 08:33 Tamsulosin HCl (Flomax) 0.4 mg DAILY PO 03/27/20 09:00 04/11/20 08:33 Tiotropium [place] (Spiriva Handihaler) 1 inhalation DAILY@0800 INH 03/27/20 08:00 03/28/20 10:40 DC 03/28/20 07:51 Torsemide (Demadex) 40 mg BID@ PO 03/27/20 09:00 03/29/20 08:41 DC 03/28/20 17:18 Torsemide (Demadex) 60 mg BID@,17 PO 04/06/20 17:00 04/11/20 08:33 Torsemide (Demadex) 80 mg BID PO 03/27/20 09:00 03/27/20 07:58 DC Torsemide (Demadex) 80 mg BID@,17 PO 03/31/20 09:00 04/06/20 13:30 DC 04/06/20 09:23 Allergies Coded Allergies: Sulfa (Sulfonamide Antibiotics) (Verified Allergy, Mild, RASH, 09/30/19) latex (Verified Allergy, Mild, rash, 09/30/19) shellfish derived (Verified Allergy, Mild, ITCHING, 09/30/19) hydrocodone (Verified Adverse Reaction, Mild, 09/30/19) confusion Sydney Shen MD Apr 11, 2020 17:19
--- NOTE | 2020-04-11 19:38 | REP ---
INDICATION: abd pain, left groin. COMPARISON: Abdomen and pelvis CT dated 04/07/2020 and supine abdomen plain film study dated 03/29/2020. TECHNIQUE: Single AP view with the patient supine. FINDINGS: There is scattered gas and stool throughout the entire colon without significant in the large bowel distention. No small bowel distention. There are surgical clips in the pelvis on the left. There is a gamma nail internal fixation of the right hip. The nasogastric tube identified on 04/04/2020 appears to have been removed. IMPRESSION: Nonspecific bowel gas pattern. The previous nasogastric tube has been removed. <Electronically signed by David Pantoja > 04/11/20 [id number]
[2020-04-11 22:00] VITALS: BP 101/55
[2020-04-12] MEDS: IPRATROPIUM 0.5MG/ALBUTEROL 2.5MG INH SOL UD 3ML (DUONEB) NEB SCH ×2 (04:42→07:15)
[2020-04-12] MEDS: LEVOTHYROXINE 75MCG TABLET (0.075MG) PO SCH (05:45)
[2020-04-12] MEDS: LevoFLOXacin 500 MG TABLET PO SCH (05:45)
[2020-04-12] MEDS: ACETAMINOPHEN TAB 650MG DOSE (2X325MG) PO PRN (05:46)
[2020-04-12] MEDS: SLF 3 ML SYR IV SCH (05:47)
[2020-04-12 06:00] VITALS: BP 114/59
[2020-04-12] MEDS: ADVAIR HFA 230/21MCG INHALER INH SCH (07:15)
[2020-04-12 07:50] LABS: HEMOGLOBIN 8.9 g/dl (13.5-17.5); MEAN CORPUSCULAR HEMOGLOBIN 28.3 pg (27.0-33.0); MEAN CORPUSCULAR HGB CONC 30.7 g/dl (32.0-36.5); MEAN CORPUSCULAR VOLUME 92.1 fl (80.0-96.0); PLATELET COUNT, AUTOMATED 252 10^3/uL (150-450); RED BLOOD COUNT 3.15 10^6/uL (4.30-6.10); WHITE BLOOD COUNT 12.2 10^3/uL (4.0-10.0)
[2020-04-12 08:10] LABS: ALBUMIN 2.4 GM/DL (3.2-5.2); ALT/SGPT 14 U/L (12-78); BILIRUBIN,TOTAL 0.4 MG/DL (0.2-1.0); BLOOD UREA NITROGEN 19 MG/DL (7-18); CALCIUM LEVEL 7.9 MG/DL (8.8-10.2); CARBON DIOXIDE LEVEL 35 MEQ/L (21-32); CHLORIDE LEVEL 100 MEQ/L (98-107); CREATININE FOR GFR 1.04 MG/DL (0.70-1.30); GLOMERULAR FILTRATION RATE > 60.0 (>42); GLUCOSE, FASTING 94 MG/DL (70-100); POTASSIUM SERUM 4.6 MEQ/L (3.5-5.1); SODIUM LEVEL 137 MEQ/L (136-145); TOTAL PROTEIN 5.1 GM/DL (6.4-8.2)
[2020-04-12] MEDS: FINASTERIDE 5 MG TAB PO SCH (08:48)
[2020-04-12] MEDS: PANTOPRAZOLE 40MG TAB (PROTONIX) PO SCH (08:48)
[2020-04-12] MEDS: TORSEMIDE 20 MG TAB PO SCH (08:48)
[2020-04-12] MEDS: TAMSULOSIN 0.4 MG CAP PO SCH (08:48)
[2020-04-12] MEDS: SUCRALFATE 1 GM TAB PO SCH (08:48)
[2020-04-12] MEDS: LACTOBACILLUS ACIDOPHILUS CAP (BACID) PO SCH (08:48)
[2020-04-12] MEDS: FERROUS SULFATE 325MG TAB PO SCH (08:48)
[2020-04-12] MEDS: DOCUSATE SODIUM 100MG CAPSULE PO SCH (08:48)
[2020-04-12] MEDS: ASPIRIN 81 MG ENTERIC TAB PO SCH (08:48)
[2020-04-12] MEDS: MOM 30ML SUSPENSION UDC PO SCH (08:49)
[2020-04-12] MEDS: METAMUCIL (PSYLLIUM) PACKET PO SCH (09:00)
[2020-04-12] MEDS: DICLOFENAC EPOLAMINE 1.3 % PATCH TOP SCH (09:00)
[2020-04-12] MEDS: prednisoLONE ACET 1% OPHTH SUSP 5ML OS SCH (09:04)
[2020-04-12] MEDS: NICOTINE 21MG/24HR 1 EA TRANSDERMAL TD SCH (09:04)
--- NOTE | 2020-04-12 09:05 | DS.PDOC ---
Discharge Summary General Date of Admission Mar 27, 2020 at 03:43 Date of Discharge 04/12/2020 Attending Physician: ANGELA LANG MD Discharge Summary PROCEDURES PERFORMED DURING STAY: closed reduction fixation of hip fracture with intramedullary device by Dr. Tai. ADMITTING DIAGNOSES: 1. Intertrochanteric Fx Of R Hip DISCHARGE DIAGNOSES: Intertrochanteric Fx Of R Hip COPD exacerbation Acute on chronic O2 dependent respiratory failure 3 L CAP Postoperative ileus Polymicrobial CAUTI Acute on chronic HFpEF CKD 3 CAD Osteoporosis with a history of T10 vertebral fracture Pulmonary hypertension / Cor Pulmonale Chronic back pain Dementia BPH / chronic in dwelling trujillo Hypothyroidism Chronic Anemia Murphy's esophagus / GERD Diverticulosis PMR COMPLICATIONS/CHIEF COMPLAINT: Intertrochanteric Fx Of R Hip. HISTORY OF PRESENT ILLNESS: 75-year-old gentleman who fell after missing the chair and landed on the ground and hurt his right hip and found to have a Intertrochanteric Fx Of R Hip and had a closed reduction fixation of hip fracture with intramedullary device by Dr. Tai on 03/28. HOSPITAL COURSE: As stated above, he had a closed reduction fixation of hip fracture with intramedullary device by Dr. Tai on 03/28 and his postop course was c/b acute on chronic hypoxemic respiratory failure for which he received treatment for suspected PNA with 5d of levaquin, acute on chronic HFpEF for which he received aggressive IV diuresis and COPD exacerbation for which he received steroids, duonebs and an increase oxygen requirement. Of note, he had a polymicrobial urine culture i/s/o of a chronic indwelling trujillo that was deemed chronic colonization. His course was also c/b postop ileus and had an NGT placed for approximately 24h with general surgery consulted, and it improved and eventually resolved without further intervention. His course was further c/b by a rising leukocytosis that was suspected to likely have been from a polymicrobial UTI given no other evidence of ongoing active infection and he was empirically treated with 7d of levaquin with improvement in leukocytosis. He worked with PT/OT and was recommended for STR and is now being discharged to [facility]. DISCHARGE MEDICATIONS: Please see below. ALLERGIES: Please see below. PHYSICAL EXAMINATION ON DISCHARGE: VITAL SIGNS: Please see below. HDS, afebrile, on 3L NC GEN: NAD HEENT:NCAT, EOM intact, nasal cannula in place CVS: RRR, no murmurs, rubs or gallops, + lower extremity edema LUNGS: mild scattered exp wheezing, bibasilar crackles, no rhonchi ABD: normoactive sounds, soft, NTND EXTREMITIES: bilateral LE edema, otherwise WWP SKIN: healing incisions on R hip NEURO: CN 2-12 are grossly intact, no focal deficits, AAOx 3 LABS: see below IMAGING: CXR 03/28/20: Chronic changes. Mild superimposed atelectasis/infiltrate left lung base in the retrocardiac region. CT head: interpreted as no acute abnormality. R Femur XR: intertrochanteric fracture of the femur. CT cervical spine: without acute pathology with degenerative changes Pelvis XR: Comminuted intertrochanteric fracture of the right femur. Post-op R hip XR: Patient is status post open reduction and satisfactory fixation for right hip fracture. AXR: developing ileus Final AXR: There is scattered gas and stool throughout the entire colon without significant in the large bowel distention. No small bowel distention. There are surgical clips in the pelvis on the left. There is a gamma nail internal fixation of the right hip. The nasogastric tube identified on 04/04/2020 appears to have been removed. IMPRESSION: Nonspecific bowel gas pattern. The previous nasogastric tube has been removed. PROGNOSIS: Good ACTIVITY: As tolerated and instructed by orthopedics and physical therapy DIET: regular DISCHARGE PLAN: STR DISPOSITION: STR DISCHARGE INSTRUCTIONS: 1. To f/u with orthopedics and PCP at discharge from STR ITEMS TO FOLLOWUP ON ON OUTPATIENT: R hip fracture COPD HFpEF Chronic hypoxemic respiratory failure DISCHARGE CONDITION: Stable TIME SPENT ON DISCHARGE: 56 minutes. Vital Signs/I&Os Vital Signs Date Time Temp Pulse Resp B/P (MAP) Pulse Ox O2 Delivery O2 Flow Rate FiO2 04/04/20 06:00 98.2 76 18 139/69 (92) 94 Nasal Cannula 4.0 I&O- Last 24 Hours up to 6 AM 04/04/20 06:00 Intake Total 3020 ml Output Total 2850 ml Balance 170 ml Laboratory Data Labs 24H Laboratory Tests 2 04/04/20 06:30: Nucleated Red Blood Cells % (auto) 0.0, Anion Gap 4L, Glomerular Filtration Rate > 60.0, Calcium Level 8.7L CBC/BMP Laboratory Tests 04/04/20 06:30 Microbiology Microbiology 03/27/20 Blood Culture - Final, Complete NO GROWTH AFTER 5 DAYS 03/27/20 Urine Culture - Final, Complete Pseudomonas Aeruginosa Klebsiella Oxytoca Escherichia Coli Serratia Marcescens Enterococcus Faecalis Strep Gallolyticus Ssp Cardoza Discharge Medications Scheduled Aspirin (Ecotrin) 81 Mg Tablet.dr, 81 MG PO BID for pain Atorvastatin Calcium (Atorvastatin Calcium) 80 Mg Tab, 80 MG PO QHS, (Reported) Docusate Sodium (Dok) 100 Mg Capsule, 100 MG PO BID Esomeprazole Magnesium (Nexium) 40 Mg Cap, 40 MG PO BID, (Reported) Famotidine (Famotidine) 40 Mg Tablet, 40 MG PO QHS, (Reported) Ferrous Sulfate (Ferrous Sulfate) 325 Mg Tablet, 325 MG PO BID Finasteride (Finasteride) 5 Mg Tablet, 5 MG PO DAILY, (Reported) Fluticasone Propion/Salmeterol (Advair Hfa 230-21 Mcg Inhaler) 1 Aer Aer, 2 PUFF INH BID, (Reported) Ipratropium/Albuterol Sulfate (Iprat-Albut 0.5-3(2.5) mg/3 ml) 3 Ml Ampul.neb, 3 ML NEB Q8H L.acidoph/L.bulg/B.bif/S.therm (Chantel-Bid Caplet) 1 Each Tablet, 1 EA PO BIDWM Levofloxacin (Levofloxacin) 500 Mg Tablet, 500 MG PO DAILY Levothyroxine Sodium (Levothyroxine Sodium) 75 Mcg Tab, 75 MCG PO QAM, (Reported) Magnesium Hydroxide (Milk of Magnesia) 400 Mg/5 Ml Oral.susp, 30 ML PO DAILY Nicotine (Nicotine Patch) 21 Mg Patch.td24, 1 PATCH TD DAILY Prednisolone Acetate (Prednisolone Acetate 1% Opth Susp) 5 Ml Drops.susp, 2 DROP OS BID Psyllium Husk/Aspartame (Metamucil Fiber Singles Packet) 3.4 Gm Powd.pack, 1 PKT PO DAILY Spironolactone (Spironolactone) 25 Mg Tablet, 25 MG PO DAILY, (Reported) Sucralfate (Sucralfate) 1 Gm Tablet, 1 GRAM PO BID, (Reported) Tamsulosin HCl (Flomax) 0.4 Mg Cap, 0.4 MG PO DAILY, (Reported) Tiotropium [place] (Spiriva) 18 Mcg Cap, 1 PUFFS INH DAILY, (Reported) Torsemide (Torsemide) 20 Mg Tablet, 60 MG PO BID@09,17 Scheduled PRN Acetaminophen (Acetaminophen) 325 Mg Tablet, 650 MG PO Q6HP PRN for mild pain Albuterol Sulf (Albuterol Sulfate) 2.5 Mg/3 Ml Nebu, 2.5 MG INH Q4H PRN for SHORTNESS OF BREATH, (Reported) Albuterol Sulfate (Proair Hfa) 108 Mcg/Act Aer, 2 PUFF INH Q4H PRN for SHORTNESS OF BREATH, (Reported) Naproxen Sodium (Aleve) 220 Mg Tablet, 220 MG PO BID PRN for PAIN, (Reported) Nitroglycerin (Nitrostat) 0.4 Mg Subl, 0.4 MG SL NITRO PRN for CHEST PAIN, (Reported) Oxycodone/Acetaminophen (Oxycodone-Acetaminophen 5-325) 1 Each Tablet, 1 TAB PO Q6HP PRN for MODERATE PAIN (PS 5-7) Ramelteon (Ramelteon) 8 Mg Tablet, 8 MG PO QHS PRN for INSOMNIA Allergies Coded Allergies: Sulfa (Sulfonamide Antibiotics) (Verified Allergy, Mild, RASH, 09/30/19) latex (Verified Allergy, Mild, rash, 09/30/19) shellfish derived (Verified Allergy, Mild, ITCHING, 09/30/19) hydrocodone (Verified Adverse Reaction, Mild, 09/30/19) confusion ANGELA LANG MD Apr 04, 2020 08:08
== END 2020-04-12 11:50 | DRG 480 ==
LOC: M ED 01:11 → M ED INP 03:43 → ENRESERV 04:20 → M MS5PR 04:52
PROVIDERS: ADMIT Internal Medicine; ATTEND Internal Medicine
PROC: 0QS606Z Reposition Right Upper Femur with Intramedullary Internal Fixation Device, Open Approach (ICD-10-PCS; principal; 2020-03-27 11:00)
PROC: 30233N1 Transfusion of Nonautologous Red Blood Cells into Peripheral Vein, Percutaneous Approach (ICD-10-PCS; 2020-04-10)
DX: S72.141A Displaced intertrochanteric fracture of right femur, initial encounter for closed fracture (principal); J96.20 Acute and chronic respiratory failure, unspecified whether with hypoxia or hypercapnia; I50.33 Acute on chronic diastolic (congestive) heart failure; J18.9 Pneumonia, unspecified organism; J44.1 Chronic obstructive pulmonary disease with (acute) exacerbation; K56.7 Ileus, unspecified; E87.1 Hypo-osmolality and hyponatremia; T83.518A Infection and inflammatory reaction due to other urinary catheter, initial encounter; W07.XXXA Fall from chair, initial encounter; Y92.009 Unspecified place in unspecified non-institutional (private) residence as the place of occurrence of the external cause; Y93.89 Activity, other specified; Y99.8 Other external cause status; Z66 Do not resuscitate; I25.10 Atherosclerotic heart disease of native coronary artery without angina pectoris; Z99.81 Dependence on supplemental oxygen; N18.30 Chronic kidney disease, stage 3 unspecified; M80.08XD Age-related osteoporosis with current pathological fracture, vertebra(e), subsequent encounter for fracture with routine healing; R11.13 Vomiting of fecal matter; I27.29 Other secondary pulmonary hypertension; F03.90 Unspecified dementia, unspecified severity, without behavioral disturbance, psychotic disturbance, mood disturbance, and anxiety; N40.0 Benign prostatic hyperplasia without lower urinary tract symptoms; E03.9 Hypothyroidism, unspecified; D64.9 Anemia, unspecified; K22.70 Barrett's esophagus without dysplasia; K21.9 Gastro-esophageal reflux disease without esophagitis; R53.81 Other malaise; R26.81 Unsteadiness on feet; M35.3 Polymyalgia rheumatica; B96.1 Klebsiella pneumoniae [K. pneumoniae] as the cause of diseases classified elsewhere; Y84.6 Urinary catheterization as the cause of abnormal reaction of the patient, or of later complication, without mention of misadventure at the time of the procedure; D72.829 Elevated white blood cell count, unspecified; B95.2 Enterococcus as the cause of diseases classified elsewhere; F17.200 Nicotine dependence, unspecified, uncomplicated; B96.20 Unspecified Escherichia coli [E. coli] as the cause of diseases classified elsewhere; E87.5 Hyperkalemia; K57.90 Diverticulosis of intestine, part unspecified, without perforation or abscess without bleeding; Z79.82 Long term (current) use of aspirin; Z79.899 Other long term (current) drug therapy; Z88.2 Allergy status to sulfonamides; Z88.5 Allergy status to narcotic agent; Z91.040 Latex allergy status; Z91.013 Allergy to seafood; Z20.828 Contact with and (suspected) exposure to other viral communicable diseases

== ENCOUNTER → 2020-04-13 | Outpatient (REF) ==
[~2020-04-13] MED LIST changes: +ALEV220T22 PO; +DOK1CAP7 PO; +ECOT81TA5 PO; +FERR325T18 PO; +IPRA0.00 NEB; +LEVO500T3 PO; +META1POW PO; +MOM30SS2 PO; +NICO21PAT TD; +PERCOCET PO; +PREDOPD OS; +RAME8TAB2 PO; +RISATAB3 PO
== END ==
LOC: SKLAB4 10:09
PROVIDERS: ATTEND Family Medicine
DX: Z53.9 Procedure and treatment not carried out, unspecified reason (principal)

== ENCOUNTER → 2020-04-19 | Outpatient (REF) ==
[2020-04-19 10:03] LABS: HEMATOCRIT 35.5 % (42.0-52.0); HEMOGLOBIN 10.4 g/dl (13.5-17.5); MEAN CORPUSCULAR HEMOGLOBIN 27.1 pg (27.0-33.0); MEAN CORPUSCULAR HGB CONC 29.3 g/dl (32.0-36.5); MEAN CORPUSCULAR VOLUME 92.4 fl (80.0-96.0); PLATELET COUNT, AUTOMATED 326 10^3/uL (150-450); RED BLOOD COUNT 3.84 10^6/uL (4.30-6.10); WHITE BLOOD COUNT 7.8 10^3/uL (4.0-10.0)
[2020-04-19 10:43] LABS: BLOOD UREA NITROGEN 18 MG/DL (7-18); CALCIUM LEVEL 8.4 MG/DL (8.8-10.2); CARBON DIOXIDE LEVEL 30 MEQ/L (21-32); CHLORIDE LEVEL 102 MEQ/L (98-107); CREATININE FOR GFR 0.91 MG/DL (0.70-1.30); GLOMERULAR FILTRATION RATE > 60.0 (>42); GLUCOSE, FASTING 76 MG/DL (70-100); POTASSIUM SERUM 4.4 MEQ/L (3.5-5.1); SODIUM LEVEL 137 MEQ/L (136-145)
[2020-04-19 11:47] LABS: TOTAL 25(OH) VITAMIN D 17.3 NG/ML (30.0-100.0)
== END ==
LOC: SKLAB4 08:20
DX: D64.9 Anemia, unspecified (principal); I50.9 Heart failure, unspecified

== ENCOUNTER → 2020-04-20 | Outpatient (REF) | LOC: SKLAB4 08:40 | DX: Z20.828 Contact with and (suspected) exposure to other viral communicable diseases (principal) ==

== ENCOUNTER → 2020-04-26 | Outpatient (REF) ==
[2020-04-26 11:29] LABS: HEMATOCRIT 35.4 % (42.0-52.0); HEMOGLOBIN 10.3 g/dl (13.5-17.5); MEAN CORPUSCULAR HEMOGLOBIN 27.2 pg (27.0-33.0); MEAN CORPUSCULAR HGB CONC 29.1 g/dl (32.0-36.5); MEAN CORPUSCULAR VOLUME 93.4 fl (80.0-96.0); PLATELET COUNT, AUTOMATED 306 10^3/uL (150-450); RED BLOOD COUNT 3.79 10^6/uL (4.30-6.10); WHITE BLOOD COUNT 7.9 10^3/uL (4.0-10.0)
[2020-04-26 12:10] LABS: BLOOD UREA NITROGEN 18 MG/DL (7-18); CALCIUM LEVEL 8.5 MG/DL (8.8-10.2); CARBON DIOXIDE LEVEL 30 MEQ/L (21-32); CHLORIDE LEVEL 101 MEQ/L (98-107); CHOLESTEROL LEVEL 109 MG/DL (<200); CHOLESTEROL RISK RATIO 1.912 (<5); CREATININE FOR GFR 0.97 MG/DL (0.70-1.30); GLOMERULAR FILTRATION RATE > 60.0 (>42); GLUCOSE, FASTING 105 MG/DL (70-100); HDL CHOLESTEROL 57 MG/DL (>40); IRON (FE) 88 UG/DL (65-175); LDL CHOLESTEROL 42 MG/DL (<100); NON-HDL-C 52 MG/DL; POTASSIUM SERUM 4.2 MEQ/L (3.5-5.1); SODIUM LEVEL 138 MEQ/L (136-145); TRIGLYCERIDES LEVEL 49 MG/DL (<150)
== END ==
LOC: SKLAB4 10:59
DX: E78.5 Hyperlipidemia, unspecified (principal); E03.9 Hypothyroidism, unspecified; D64.9 Anemia, unspecified

== ENCOUNTER → 2020-04-27 | Outpatient (REF) | LOC: SKLAB4 06:34 | DX: Z20.828 Contact with and (suspected) exposure to other viral communicable diseases (principal) ==

== ENCOUNTER → 2020-05-03 | Outpatient (REF) ==
[2020-05-03 07:48] LABS: HEMATOCRIT 35.8 % (42.0-52.0); HEMOGLOBIN 10.5 g/dl (13.5-17.5); MEAN CORPUSCULAR HEMOGLOBIN 27.1 pg (27.0-33.0); MEAN CORPUSCULAR HGB CONC 29.3 g/dl (32.0-36.5); MEAN CORPUSCULAR VOLUME 92.5 fl (80.0-96.0); PLATELET COUNT, AUTOMATED 308 10^3/uL (150-450); RED BLOOD COUNT 3.87 10^6/uL (4.30-6.10); WHITE BLOOD COUNT 8.7 10^3/uL (4.0-10.0)
[2020-05-03 08:14] LABS: BLOOD UREA NITROGEN 25 MG/DL (7-18); CALCIUM LEVEL 8.2 MG/DL (8.8-10.2); CARBON DIOXIDE LEVEL 32 MEQ/L (21-32); CHLORIDE LEVEL 99 MEQ/L (98-107); CREATININE FOR GFR 1.12 MG/DL (0.70-1.30); GLOMERULAR FILTRATION RATE > 60.0 (>42); GLUCOSE, FASTING 87 MG/DL (70-100); POTASSIUM SERUM 4.1 MEQ/L (3.5-5.1); SODIUM LEVEL 139 MEQ/L (136-145)
== END ==
LOC: SKLAB4 07:19
DX: D64.9 Anemia, unspecified (principal)

== ENCOUNTER → 2020-05-04 | Outpatient (REF) | LOC: SKLAB4 06:15 | DX: Z20.828 Contact with and (suspected) exposure to other viral communicable diseases (principal) ==

== ENCOUNTER → 2020-05-10 | Outpatient (REF) ==
[2020-05-10 09:49] LABS: HEMATOCRIT 37.3 % (42.0-52.0); HEMOGLOBIN 11.1 g/dl (13.5-17.5); MEAN CORPUSCULAR HEMOGLOBIN 27.5 pg (27.0-33.0); MEAN CORPUSCULAR HGB CONC 29.8 g/dl (32.0-36.5); MEAN CORPUSCULAR VOLUME 92.3 fl (80.0-96.0); PLATELET COUNT, AUTOMATED 257 10^3/uL (150-450); RED BLOOD COUNT 4.04 10^6/uL (4.30-6.10); WHITE BLOOD COUNT 11.4 10^3/uL (4.0-10.0)
[2020-05-10 10:12] LABS: BLOOD UREA NITROGEN 26 MG/DL (7-18); CALCIUM LEVEL 8.7 MG/DL (8.8-10.2); CARBON DIOXIDE LEVEL 35 MEQ/L (21-32); CHLORIDE LEVEL 96 MEQ/L (98-107); CREATININE FOR GFR 1.24 MG/DL (0.70-1.30); GLOMERULAR FILTRATION RATE > 60.0 (>42); GLUCOSE, FASTING 118 MG/DL (70-100); POTASSIUM SERUM 4.1 MEQ/L (3.5-5.1); SODIUM LEVEL 137 MEQ/L (136-145)
== END ==
LOC: SKLAB4 12:50
DX: D64.9 Anemia, unspecified (principal)

== ENCOUNTER → 2020-05-11 | Outpatient (REF) | LOC: SKLAB4 06:25 | DX: Z53.9 Procedure and treatment not carried out, unspecified reason (principal) ==

== ENCOUNTER 2020-05-18 15:52 | Inpatient (IN) | payer MEDICAID, MEDICARE ==
[~2020-05-18] VITALS: Ht 160 cm; Wt 78.7 kg
[~2020-05-18 15:52] MED LIST changes: -ALEN70TA74 PO; +ALEN70TA82 PO
--- OUTSIDE RECORDS SUMMARY | 2020-05-18 16:00 | CCD | Continuity of Care Document ---
Author Author Davion NELSON MD Organization Unknown Address [facility] [place] [address] Phone [phone] Care Team Providers Care Migration Specialist Name Role Phone Sharad Call MD AUTM [phone] Shukri Bonner MD AUTM [phone] Margarette Lenz-C AUTM [phone] Boston Maxwell MD AUTM [phone] Moe Archer MD AUTM [phone] Raul Grover DO AUTM [phone] Willard Woodard MD AUTM [phone] Problems Active Problems Provider Date Coronary arteriosclerosis GAMAL FelicianoC Onset: 2010 Old myocardial infarction GAMAL FelicianoC Onset: 2010 Chronic combined systolic and diastolic heart failure TORRI Feliciano-C Onset: 03/19/2016 Benign hypertensive heart disease with congestive card iac failure TORRI Feliciano-C Onset: 03/20/2011 Chronic ischemic heart disease Margarette Lenz PA-C Onset: 1 05/20/2010 Automatic implantable cardiac defibrillator in situ GAMAL ShannonC Onset: 03/20/2011 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, implant AND/OR graft GAMAL BernardC Onset: 03/19/2016 Electrocardiogram abnormal Margarette Lenz PA-C Onset: 03/20 Left bundle branch block Margarette Lenz PA-C Onset: 011 Mitral valve disorder Margarette Lenz PA-C Onset: 03/20/2011 Aortic valve disorder Margarette Lenz PA-C Onset: 06/09/2015 Pure hypercholesterolemia Margarette Lenz PA-C Onset: 2013 Cigarette smoker Margarette Lenz PA-C Onset: 03/19/2016 Ventricular fibrillation Margarette Lenz PA-C Onset: 018 Social History Type Date Description Comments Sex Unknown Tobacco Use Start: Unknown End: Unknown Former Cigarette Smo ker up to 1 1/2ppd for 50 plus years ETOH Use Occasionally consumes beer Tobacco Use Start: Unknown Patient is a current smoker, smo kes every day Started at age 10, at most 1.5 ppd; currently smoking 6-10 cigarettes daily Smoking Status Reviewed: 03/10/20 Patient is a current smoker, smokes every day Started at age 10, at most 1.5 ppd; currently smoking 6-10 cigarettes daily Exercise Type/Frequency Does housework sporadica lly Exercise Type/Frequency Walks sporadically Exercise Limitations Shortness Of Breath Allergies, Adverse Reactions, Alerts Active Allergies Reaction Severity Comments Date Sulfa itching 07/10/2006 Latex swelling redness at site Fish-derived Products rash, itching 05/31 Shellfish-derived Products rash, itching 10/30/2012 Vicodin tongue swelling 10/30/2012 Medications Active Medications SIG Qnty Indications Ordering Provide r Date Amiodarone HCL 200mg Tablets 1 by mouth three times a day for a month then decrease to twice a day (on 04/09/20) 200tabs I49.01 Mirza Nelson MD 03/10/2020 Tums 500mg Chewtabs 1-2 by mouth as needed Unknown 02/23/2020 Famotidine 40mg Tablets 1 by mouth every day at bedtime Aaron Escalera MD 01/25/2020 Voltaren 1% Gel apply as d irected daily Unknown 01/25/2020 Torsemide 20mg Tablets 4 by mouth twice every day 720tabs Mirza Nelson MD 01/13/2019 Aleve 220mg Tablets 1 by mouth twice daily as needed Unknown 01/13/2019 Sucralfate 1gm Tablets 1 by mouth two times a day Lucas Cabezas MD 01/13/2019 Spironolactone 25mg Tablets 1 by mouth every day Unknown 10/14/2018 Hydrocodone-Acetaminophen 5-325mg Tablets 1 by mouth every 6 hours as needed Unknown 10/14/2018 Finasteride 5mg Tablets 1 by mouth every day Unknown 10/14/2018 Tamsulosin HCL 0.4mg Capsules 1 by mouth every day Boston Maxwell MD 07/14 Oxygen - Home 5 lpm Unknown 07/25/2017 Levothyroxine Sodium 75mcg Tablets 1 by mouth every day Unknown 01/31/2017 Albuterol Sulfate (2 .5mg/3ML) 0.083% Nebulizer every 4 hours as needed Unknown 01/[address] 1 by mouth every day Unknown 07/26/2016 Atorvastatin Calcium 80mg Tablets 1 by mouth every night at bedtime 90tabs I25.10 Mirza Nelson MD 02/04/2014 E78.0 Proair HFA 108(90Base) mcg/Act Aer osol 2 puffs twice a day Irma Chairez MD 11/03/[address] 1 by mouth twice a day Aaron Escalera MD 08/02/2013 Advair HFA 230-21mcg/Act Aerosol 2 puff bid Irma Chairez MD 10/30/2012 Nitrostat 0.4mg Tablets Sub 1 sl q 5min x3 prn for chest pain 25tabs Aaron Bagley MD 05/31/19 11 Spiriva Handihaler 18mcg Capsules 1 puff Daily Hernandez Duran RN [employer] 7 History Medications Amiodarone HCL 200mg Tablets 1 by mouth four times a day (dose will be titrated down) 180tabs I49.01 Pierce Nelson MD 02/24/2020 - 03/10/2020 Amiodarone HCL 200mg Tablets 1 by mouth four times a day Mirza Nelson MD 02/05/2020 - 02/23/2020 Immunizations Description No Information Available Vital Signs Date Vital Result Comment 03/10/2020 2:58pm Weight 164.00 lb Home Weight 166lb Height 69 inches 5'9" BMI (Body Mass Index) 24.2 kg/m2 Respiratory Rate 16 /min 02/24/2020 1:07pm Weight 166.00 lb Home Weight 165lb Height 69 inches 5'9" BMI (Body Mass Index) 24.5 kg/m2 Heart Rate 88 /min Regular Respiratory Rate 16 /min BP Systolic Right Arm 126 mmHg sitting, regular c uff BP Diastolic Right Arm 68 mmHg sitting, regular cuff Results Test Acquired Date Facility Test Result H/L Range Note Basic Metabolic Panel 05/10/2020 [facility] - not interf ed (315)- - Glucose 118 High 83-110 Blood Urea Nitrogen 26 High 7-18 Creatinine 1.24 High 0.6-1.0 Sodium 137 136-145 Potassium 4.1 3.5-5.1 Chloride 96 Low 98-107 Carbon Dioxide 35 High 21-32 Calcium 8.7 8.2-9.6 GFR (Calculated) >60.0 >32 CBC without Differential 05/10/2020 [facility] - not inter faced (315)- - White Blood Count 11.4 High 5.0-10.0 Red Blood Count 4.04 4.00-5.40 Platelets 257 172-450 Hemoglobin 11.1 Hematocrit 37.3 Basic Metabolic Profile 03/23/2020 [facility] [phone] Glucose, Fasting 109 mg/dL High 70-100 Blood Urea Nitrogen 24 mg/dL High 7-18 Creatinine For GFR 1.27 mg/dL Normal 0.70-1.30 Glomerular Filtration Rate 58.5 Normal >42 1 Sodium Level 137 mEq/L Normal 136-145 Potassium Serum 4.2 mEq/L Normal 3.5-5.1 Chloride Level 95 mEq/L Low 98-107 Carbon Dioxide Level 36 mEq/L High 21-32 Anion Gap 6 mEq/L Low 8-16 Calcium Level 8.8 mg/dL Normal 8.8-10.2 Laboratory test finding 03/23/2020 [facility] [phone] Magnesium Level 2.3 mg/dL Normal 1.8-2.4 CBC without Differential 11/27/2019 [facility] - not inter faced (315)- - White Blood Count 10.2 High 4.0-10.0 Red Blood Count 3.78 Low 4.30-6.10 Platelets 231 150-450 Hemoglobin 10.8 Hematocrit 34.0 1 Units are mL/min/1.73 m2 Chronic Kidney Disease Staging per NKF: Stage I & II GFR >=60 Normal to Mildly Decreased Stage III GFR 30-59 Moderately Decreased Stage IV GFR 15-29 Severely Decreased Stage V GFR <15 Very Little GFR Left ESRD GFR <15 on [employer] Procedures Date Code Description Status 03/10/2020 45255 ECG 12-Lead Completed 01/26/2020 77126 ECG 12-Lead Completed 01/21/2020 83663 Remote Pacemaker/Cardio-Defibril lator Data Acquistion Completed 01/21/2020 12937 Remote Interrogate D evice Eval Cardioverter/Defibrillator-90 Days Completed Medical Devices Description No Information Available Encounters Type Date Location Provider Dx Diagnosis Office Visit 03/10/2020 3:00p Main Office Margarette Lenz PA-C I49.0 1 Ventricular fibrillation Z01.810 Encounter for preprocedural cardiovascular examination Office Visit 02/24/2020 3:15p Main Office Margarette Lenz PA-C I49.0 1 Ventricular fibrillation Office Visit 02/04/2020 12:27p Main Office Mizra Nelson MD I50.42 Chronic combined systolic and diastolic hrt fail I11.0 Hypertensive heart disease w ith heart failure I34.0 Nonrheumatic mitral (valve) insufficiency E78.00 Pure hypercholesterolemia, u nspecified Office Visit 01/26/2020 1:30p Main Office Margarette Lenz PA-C I27.8 1 Cor pulmonale (chronic) I50.42 Chronic combined systolic an d diastolic hrt fail I11.0 Hypertensive heart disease w ith heart failure I25.5 Ischemic cardiomyopathy Z95.810 Presence of automatic (impla ntable) cardiac defibrillator I49.01 Ventricular fibrillation I25.10 Athscl heart disease of [place] coronary artery w/o ang pctrs I25.2 Old myocardial infarction R94.31 Abnormal electrocardiogram [ ECG] [EKG] I44.7 Left bundle-branch block, un specified I34.0 Nonrheumatic mitral (valve) insufficiency I35.8 Other nonrheumatic aortic va lve disorders E78.00 Pure hypercholesterolemia, u nspecified F17.218 Nicotine dependence, cigaret sean, w oth disorders Office Visit 01/05/2020 10:20a Main Office Mirza Nelson MD F17.218 Nicotine dependence, cigarettes, w oth disorders E78.00 Pure hypercholesterolemia, u nspecified I34.0 Nonrheumatic mitral (valve) insufficiency I50.42 Chronic combined systolic an d diastolic hrt fail Office Visit 12/03/2019 2:04p Main Office Mirza Nelson MD I50.42 Chronic combined systolic and diastolic hrt fail I49.01 Ventricular fibrillation E78.00 Pure hypercholesterolemia, u nspecified F17.218 Nicotine dependence, cigaret sean, w oth disorders Assessments Date Code Description Provider 03/18/2020 I34.0 Nonrheumatic mitral (valve) insu fficiency Mirza Nelson MD 03/18/2020 E78.00 Pure hypercholesterolemia, unspe cified Mirza Nelson MD 03/18/2020 I11.0 Hypertensive heart disease with heart failure Mirza Nelson MD 03/10/2020 I49.01 Ventricular fibrillation Margarette Lenz PA-C 03/10/2020 Z01.810 Encounter for preprocedural card iovascular examination Margarette Lenz PA-C 02/24/2020 I49.01 Ventricular fibrillation Margarette Lenz PA-C 02/04/2020 I50.42 Chronic combined sys tolic (congestive) and diastolic (congestive) heart failure Mirza Nelson MD 02/04/2020 I11.0 Hypertensive heart disease with heart failure Mirza Nelson MD 02/04/2020 I34.0 Nonrheumatic mitral (valve) insu fficiency Mirza Nelson MD 02/04/2020 E78.00 Pure hypercholesterolemia, unspe cified Mirza Nelson MD 01/26/2020 I27.81 Cor pulmonale (chronic) Margarette bob PA-C 01/26/2020 I50.42 Chronic combined sys tolic (congestive) and diastolic (congestive) heart failure Margarette Lenz PA-C 01/26/2020 I11.0 Hypertensive heart disease with heart failure Margarette Lenz PA-C 01/26/2020 I25.5 Ischemic cardiomyopathy Margarette bob PA-C 01/26/2020 Z95.810 Presence of automatic (implantab le) cardiac defibrillator Margarette Lenz PA-C 01/26/2020 I49.01 Ventricular fibrillation Margarette Lenz PA-C 01/26/2020 I25.10 Atherosclerotic heart disease of [place] coronary artery with Margarette E GAMAL LenzC 01/26/2020 I25.2 Old myocardial infarction Margarette LundytessacindiTORRI-C 01/26/2020 R94.31 Abnormal electrocardiogram [ECG] [EKG] Margarette Lenz PA-C 01/26/2020 I44.7 Left bundle-branch block, unspec ified Margarette Lundytessacindi, PA-C 01/26/2020 I34.0 Nonrheumatic mitral (valve) insu fficiency Margarette Lundydavid PA-C 01/26/2020 I35.8 Other nonrheumatic aortic valve disorders Margarette LundyTORRI hernandez-C 01/26/2020 E78.00 Pure hypercholesterolemia, unspe cified Margarette Villela Yoanna PA-C 01/26/2020 F17.218 Nicotine dependence, cigarettes, with other nicotine-induced MargaretteTORRI Pollock-C 01/21/2020 Z95.810 Presence of automatic (implantab le) cardiac defibrillator [facility] 01/05/2020 F17.218 Nicotine dependence, cigarettes, with other nicotine-induced Mirza Nelson MD 01/05/2020 E78.00 Pure hypercholesterolemia, unspe cified Mirza Nelson MD 01/05/2020 I34.0 Nonrheumatic mitral (valve) insu fficiency Mirza Nelson MD 01/05/2020 I50.42 Chronic combined sys tolic (congestive) and diastolic (congestive) heart failure Mirza Nelson MD 12/03/2019 I50.42 Chronic combined systolic (conge stive) and diastolic (conges Mirza Nelson MD 12/03/2019 I49.01 Ventricular fibrillation Mirza Nelson MD 12/03/2019 E78.00 Pure hypercholesterolemia, unspe cified Mirza Nelson MD 12/03/2019 F17.218 Nicotine dependence, cigarettes, with other nicotine-induced Mirza Nelson MD Plan of Treatment Future Appointment(s):* 05/26/2020 8:00 am - Margarette Lenz PA-C at Main Office * 05/20/2020 7:00 am - [facility] at Main Office 03/10/2020 - Margarette Lenz PA-C* I49.01 Ventricular fibrillation* New Medication:* Amiodarone HCL 200 mg - 1 by mouth three times a day for a month then decrease to twice a day (on 04/09/20) * New Labs:* Basic Metabolic Profile, Scheduled: 03/10/20 * Magnesium Level, Scheduled: 03/10/20 * Recommendations:* 1. Decrease amiodarone to 200 mg one pill three times a day. 2. On 04/09/20 reduce amiodarone to 200 mg twice a day. * Z01.810 Encounter for preprocedural cardiovascular examination * All * Follow up:* As scheduled Functional Status Functional Condition Comment Date Status Independent with all ADL's Activ e Mental Status Description No Information Available Referrals Description No Information Available
--- OUTSIDE RECORDS SUMMARY | 2020-05-18 16:01 | CCD ---
Author Author [facility] Organization 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 Active 99331349 Problem Benign prostatic hyperplasia with lower urinary tract symptoms, unspecified morphology N40.1 Active 186652281 Problem Pulmonary arterial hypertension I27.2 Active 87449561 Problem Chronic disease anemia D63.8 Active 383123806 Problem Chronic kidney disease, stage 3 N18.3 Active 867791811 Problem Hypothyroidism (acquired) E03.9 Active 688373 002 Problem Benign prostatic hyperplasia with lower urinary tract symptoms N40.1 Active 595167998 Problem Chronic airway obstruction, not elsewhere classified J44.9 Active 77331849 Problem Chronic venous hypertension (idiopathic) with ulcer of right lower extremity I87.311 Active 780650885 Problem Other allergic rhinitis J30.89 Active 14087956 Problem Anemia, unspecified type D64.9 Active 2337111 00 Problem Vitamin D deficiency E55.9 Active 70077918 Problem Lumbar facet arthropathy M12.88 Active 7707279 08 Problem Primary osteoarthritis involving multiple joints M 15.0 Active 328200360 Problem 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 I50.42 Active 726192899140632 Problem Coronary atherosclerosis I25.10 Active 7269655 00 Problem DNR (do not resuscitate) Z66 Active 0799134 06 DNR/DNI--MOLST on file Problem Interstitial pulmonary fibrosis J84.10 Active 78773394 Problem Chronic respiratory failure with hypercapnia J96.1 2 Active 082183283 Problem Degeneration of lumbar or lumbosacral intervertebral disc M51.37 Active 65508060 Problem Acquired hypothyroidism E03.9 Active 01610028 2 Problem Low back pain M54.5 Active 881659107 Problem Chronic allergic rhinitis J30.9 Active 147173 04 Problem Mixed hyperlipidemia E78.2 Active 062450764 Problem Smoker unmotivated to quit F17.200 Active 99342 002 Problem Hypertensive heart disease with heart failure I11.0 Active 81987036 Problem Valvular heart disease I38 Active 921179 Problem Chronic combined systolic and diastolic heart failure I50.42 Active 392970608168738 Problem Iron deficiency anemia due to chronic blood loss D 50.0 Active 650707270 Problem Nicotine dependence with current use F17.200 Act jarod 016574669 Problem Oxygen dependent Z99.81 Active 527178554269 Problem Cataract, unspecified cataract type, unspecified lateralit y H26.9 Active 932177184 Problem Unsteady gait R26.81 Active 92382643 Problem Cor pulmonale, chronic I27.81 Active 00228973 Problem Cor pulmonale (chronic) I27.81 Active 15687633 Problem Chronic respiratory failure with hypoxia J96.11 Active 977364285 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 Active 724462409 Problem Balanitis N48.1 Active 49814447 Problem COPD exacerbation J44.1 Active 381577367 ALLERGIES Allergen (clinical drug ingredient) Drug/Non Drug Allergy do cumented on EMR Reaction Allergy Type Onset Date Status Sulfa (for allergy use only) Unknown Drug Allergy Active Vicodin altered mental status Drug Allergy A ctive acetaminophen / oxycodone Percocet(NDC Code:[address]-68) hallu cinations Drug Allergy Active nicotine Nicoderm CQ(NDC Code:[address]-04) Rash Drug Allerg y Active Latex Gloves(NDC Code:32125-87790) rash, hives head to toe Drug Allergy Active Shellfish Rash/itching Non Drug Allergy Active ENCOUNTERS from 1945 to 2020-05-14 Encounter Location Date Provider Diagnosis [address] [address] Mar, Jennie Kiet Cataract fragments in left eye following surgery H59.022 IMMUNIZATIONS Vaccine Route Administration Date Status Influenza (18 yrs & older) Flublok IM Intramuscular Mar 03, 2020 Administered Influenza (18 yrs & older) Flublok IM Intramuscular Mar 27, 2019 Administered Influenza (18 yrs & older) Flublok IM Intramuscular Mar 20, 2018 Administered Pneumococcal Adult 0.5mL (Pneumovax 23) IM Intramuscular November Administered Pneumococcal 0.5mL (Prevnar 13) IM Intramuscular September 08, 2013 Administered Influenza (6mo & up) Fluzone IM Intramuscular Mar 10, 2014 Ad ministered Influenza (6mo & up) Fluzone IM Intramuscular Feb 13, 2011 Ad ministered SOCIAL HISTORY Tobacco Use: Social History Observation Description Date Details (start date - stop date) Current some day smoker Sex Assigned At : Social History Observation Description Sex Assigned At Unknown Education: Question Answer Notes Level of Education: Not finished High School Language: Question Answer Notes Languages spoken: Mexican Confucianist: Question Answer Notes Confucianist 31 None Sexual Hx: Question Answer Notes Had sex in the last 12 months (vaginal, oral, or anal)? No Have you ever had an STD? No Alcohol Screening: Question Answer Notes Did you have a drink containing alcohol in the past year? No Points 0 Interpretation Negative Tobacco Use: Question Answer Notes Are you a: current some day smoker smoking about 1 cigarette a day REASON FOR REFERRAL No Information VITAL SIGNS Weight 163 lbs Mar, Height 69 in Mar, BMI 24.07 kg/m2 Mar, Heart Rate 87 /min Mar, Respiratory Rate 18 /min Mar, Temperature 97.7 degrees Fahrenheit Mar, Oximetry 94 on 2lpm Mar, Blood pressure systolic 126 mm Hg Mar, Blood pressure diastolic 78 mm Hg Mar, MEDICATIONS Medication SIG (Take, Route, Frequency, Duration) Notes Start Da te End Date Status Nebulizer - as directed DX: J44.9 for 30 Days Mar, Active Erythromycin 5 MG/GM 1 application as directed Op hthalmic Four times a day for 10 day(s) Feb, Active Venofer 20 MG/ML please infuse 500 mg per hos pital protocol Intravenous once for 1 dose(s) Jun, Not-Taking Fluticasone Propionate 50 MCG/ACT 1 spray in each nost ril Nasally Once a day for 30 Days Active Tums 500 MG Orally as directed Not- Taking Chantix Starting Month Marlon 0.5 MG X 11 & 1 MG X 42 as directed Orally as directed for 30 Days Mar, Not-Taking Advair HFA 230-21 MCG/ACT 2 puffs Inhalation Twice a day for 30 Active Lipitor 80 MG 1 tab Orally at bedtime for 30 Days Active Zofran 4 MG 1 tablets Orally Three times daily as needed for nausea for 10 day(s) Dec, Not-Taking Advair Diskus 250-50 MCG/DOSE 1 puff Inhalation bid for 30 day(s) Not-Taking Doxycycline Hyclate 100 MG 1 capsule Orally Twice a day for 7 da y(s) Dec, Not-Taking Nystatin 814107 UNIT/GM 1 application to affected ar ea Externally Daily for 30 days Dec, Not-Taking Chantix Continuing Month Marlon 1 MG 1 tablet Orally Twice a day fo r 30 day(s) Mar, Not-Taking Hydrocodone-Acetaminophen 5-325 MG 1 tablet as needed Orally Three times daily as needed for severe pain. MDD 3 for 30 days Jan, Active Fluconazole 150 MG 1 tablet Orally Daily for 7 day(s) 2018 Not-Taking Albuterol Sulfate (2.5 MG/3ML) 0.083% USE 1 VIAL EVERY 4 HOURS IN NEBULIZER Dx: J96.11 for 30 days Active Oxygen 2LPM nasal cannula continous and portable Dx: J9 6.12 for 9999 days Jul, Active Chantix Continuing Month Marlon 1 MG as directed Orally as directed for 30 Days Aug, Not-Taking Levothyroxine Sodium 75 mcg 1 tablet on an empty stoma ch in the morning orally Daily for 90 Active PrednisoLONE Acetate 1 % 1 drop into affected eye Oph thalmic Twice a day for 90 day(s) Active Sucralfate 1 GM 1 tablet at bedtime on an em pty stomach before meals Orally Twice a day for 30 Active Torsemide 20 MG 4 tablets by mouth twice a day Orally bid for 30 day( s) Active Reclast 5 MG/100ML 5 mg Intravenous Infused onc e per hospital protocol for 1 dose(s) Dec, Active Nitroglycerin 0.4 MG 1 tab Sublingual At onset of chest pain and again in 5 min if symptoms persist. If needing a third call 911 for 30 day(s) Active Tramadol HCl 50 MG 1 tablet as needed orally (I STOP:[id number]) Twice daily as needed for pain. MDD-2 for 30 No t-Taking May Have - please dispense motorized ch air for severely limited mobility Use daily for distances for 9999 days Nov, Not-Taking ProAir HFA 108 (90 Base) MCG/ACT 2 puffs as needed Inh alation every 4 hours as needed for 30 day(s) Active Bisoprolol Fumarate 10 MG 1 tablet Orally Once a day Not-Taking Diclofenac Sodium 1 % apply pea-size amount to saritha nts of hands Transdermal three times daily as needed for joint pain for 30 day(s) Mar, Not-Taking Chantix Starting Month Marlon 0.5 MG X 11 & 1 MG X 42 as directed Orally As indicated on package for 30 days Oct, Active Ranitidine HCl 300 MG 1 tab Orally daily at bedtime for 30 Not-Taking Diclofenac Sodium 1 % 1 pea size amount Transderma l Daily as needed for 30 day(s) Not-Taking Esomeprazole Magnesium 40 MG 1 capsule Orally twice a day for 30 Days Not-Taking May Have - Please dispence portable oxy gen concentrator For use when ambulating distances or outside the home 2.5 L flow rate for 99 months 2017 Active Saline Nasal [place] 0.65 % 2 sprays in each nostril as needed Nasally every 4 hrs as needed Aug, Active Famotidine 40 MG 1 tablet at bedtime Orally Once a day for 30 da y(s) May, Not-Taking Acapella Vibratory PEP Device _ as directed Blow force fully into device three times daily for 9999 days Jan, Not-Ta octavio Aspir-81 81 MG 1 tablet Orally Once a day Active Lidocaine 5 % 1 patch to neck and back; re move after 12 hours Externally Once a day for 30 days Nov, Not-Taking PredniSONE 20 MG as directed Orally Once a day for 10 day(s) Mar, Not-Taking Spiriva HandiHaler 18 MCG inhale the contents of one c apsule via handihaler by mouth daily Inhalation Once a day for 30 days Active Nexium 40 MG 1 capsule Orally twice daily for 90 Not-Taking Amiodarone HCl 200 MG TAKE ONE TABLET BY MOUTH FOU R TIMES A DAY DOSE WILL BE TITRATED DOWN Oral for 45 Active Nebulizer/Tubing/Mouthpiece - as directed DX: J44.9 PRN Use for 30 Days Feb, Active Simethicone 80 MG 1 tablet as needed Orally two times a day Not-Taking Ofloxacin 0.3 % 1 drop into affected eye Oph thalmic Four times a day for 7 day(s) Jun, Not-Taking Oxygen continuous and portable nasa l cannula 2 liters per minute Dx: J96.12 for 93807 days Jun, Active Spironolactone 25 mg 1 tablet with food Orally Once a day for 30 Active Finasteride 5 MG 1 tablet Orally Once a day for 30 Active PredniSONE 20 MG as directed Orally Once a day for 5 day(s) Jan, Not-Taking Clotrimazole 1 % 1 application to affected area Externally Twice a day for 30 Active Tamsulosin HCl 0.4 MG TAKE ONE CAPSULE BY MOUTH EVERY DAY for 90 day( s) Active PROCEDURES No Information RESULTS No Results REASON FOR VISIT follow up MEDICAL (GENERAL) HISTORY Type Description Date Medical History vegetation on ICD lead on TE E 10/19--suspected NBTE, on warfarin x 6 mo per cardiology/Antecol; had echo 05/22, no mention of thrombosis on lead; warfarin was dc 06/22 after d/w cardiology Medical History COPD/Emphysema/pumonary fibr osis--severe--chronic steroid tx, frequext exac--FEV1 1.1; FEV1/FVC 55% ([facility] 10/20); 01/22 FEV1 1.36, FEV1/FVC 49%, improvement from 2018 Medical History Chronic low back pain - lumbar DDD per x -rays Medical History Hearing loss Medical History Benign prostatic hyperplasia- has cathet er Medical History coronary artery disease/isch emic cardiomyopathy/hypertensive heart disease, NST 05/20- EF 75%, normal Medical History s/p biventricular ICD placement Medical History congestive heart failure (se leobardo R heart failure and grade 1 diasolic) last echo 2016; severe pulmonary HTN Medical History diverticulosis - [facility] Medical History Torres's esophagitis, GERD, HH - [facility] Medical History Rotator cuff (capsule) sprain and strain Medical History PMR, admitted 10/19, had LP to r/o mening itis Medical History chronic anemia--elevated rajesh pa light chain ratio 11/18, refrred to heme-onc 11/18 Medical History chronic cor pulmonale, steroid dependent COPD Medical History hypothyroidism (subclinical) started in levothrxn by cardiology 05/22 Medical History T10 compression fx 07/20; old T11 comp fx on same xray. Began Fosamax 07/20 Medical History Lung Nodule on CT 09/2016 Medical History Nonbacterial thrombotic endocarditis Medical History Abnormal chest CT Medical History PMR (polymyalgia rheumatica) Medical History Compression fracture of body of thoracic vertebra Medical History echo 06/23- EF75%- mild charisse l regurg, mild aortic valve sclerosis, RVHF, Grade I diastolic dysfunction, PHTN Surgical History ICD replacement 2009,08-18 Surgical History ICD placement 2004 Surgical History Right Inguinal Hernia repair Surgical History Kidney stone removal 1979 Surgical History colonoscopy, diverticulosis - [facility]; 08/22- polypectomy- tubular adenoma 12/14, 08/22 Surgical History EGD, gastritis, HH, Barretts esophagus - repeat 3-5yrs - [facility]; 08/22- chronic changes 12/14, 03/18, 08/22 Surgical History BL cataract Surgical History emergency surgery for lens f ragment removal s/p cataract removal of left eye 03/2020 Hospitalization History for surgeries above Hospitalization History Pancolitis 10/2010 Hospitalization History NBTE 10/2015 Hospitalization History sm[facility] COPD 05/22 Hospitalization History COPD exacerbation 10/03-10/07/16 Hospitalization History pneumonia 11/12/16 Hospitalization History pneumonia 01/20 Hospitalization History CHF/pneumonia 07/2017 Goals Section No Information Health Concerns No Information MEDICAL EQUIPMENT No Information MENTAL STATUS No Information FUNCTIONAL STATUS No Information ASSESSMENTS Encounter Date Diagnosis Assessment Notes Treatment Notes Treatm ent Clinical Notes Mar, Cataract fragments in left e ye following surgery (ICD-10 - H59.022) resolved after surgery, patient is back to baseline PLAN OF TREATMENT Medication Medication Name Sig Start Date Stop Date Nebulizer - as directed DX: J44.9 for 30 Days Mar, Treatment Notes Assessment Notes Clinical Notes Cataract fragments in left eye following surgery resolved after surgery, patient is back to baseline Next Appt Details reschedule april appointment to begin may Reason: Provider Name:Jennie Santa, 2020-05-30 02 :45:00 PM, [address] [place], [address], Insurance Providers Payer Name Payer Address Payer Phone Insured Name Patient Relati onship to Insured Coverage Start Date Coverage End Date MEDICARE COMPLETE [employer] [address] [address] [facility] [id number] FIDEL TORRES self
--- OUTSIDE RECORDS SUMMARY | 2020-05-18 16:01 | CCD | Continuity of Care Document ---
Author Author Davion KENDRICK PA-C Organization Unknown Address [address] [place] [address] Phone [phone] Care Team Providers Care Stunt Man Name Role Phone Moe Archer MD AUTM [phone] Problems Active Problems Provider Date Closed fracture of distal end of radius Onset: 02/24/1999 Social History Type Date Description Comments Sex Unknown Allergies, Adverse Reactions, Alerts Description No Information Available Medications Description No Information Available Immunizations Description No Information Available Vital Signs Description No Information Available Results Description No Information Available Procedures Date Code Description Status 04/21/2020 92377 X-Ray Hip Unilateral With Pelvis 2-3 Views Completed 03/27/2020 62597 FX Femur Inter/Per/Subtrochanter ic W/Intramedullary Implant Completed Medical Devices Description No Information Available Encounters Type Date Location Provider Dx Diagnosis Office Visit 04/21/2020 3:30p Winnjamal Kendrick PA-C S7 2.141D Displ intertroch fx r femur, subs for clos fx w routn heal Office Visit 03/27/2020 9:35a Winnjamal Tai MD S72.141A Displaced intertrochanteric fracture of right femur, init Assessments Date Code Description Provider 04/21/2020 S72.141D Displaced intertroch anteric fracture of right femur, subsequent encounter for closed fracture with routine healing Arpan Kendrick PA-C 03/27/2020 S72.141A Displaced intertroch anteric fracture of right femur, initial encounter for closed fracture Octavio Tai MD Plan of Treatment 04/21/2020 - Arpan Kendrick PA-C* S72.141D Displaced intertrochanteric fracture of right femur, subsequent encounter for closed fracture with routine healing* Follow up:* with [facility] in 4 weeks wih xrays Functional Status Description No Information Available Mental Status Description No Information Available Referrals Description No Information Available
--- OUTSIDE RECORDS SUMMARY | 2020-05-18 16:01 | CCD | Continuity of Care Document ---
Author Author Davion KENDRICK PA-C Organization Unknown Address [address] [place] [address] Phone [phone] Care Team Providers Care Screen Tender Helper Name Role Phone Moe Archer MD AUTM [phone] Problems Active Problems Provider Date Closed fracture of distal end of radius Onset: 02/24/1999 Social History Type Date Description Comments Sex Unknown Allergies, Adverse Reactions, Alerts Description No Information Available Medications Description No Information Available Immunizations Description No Information Available Vital Signs Description No Information Available Results Description No Information Available Procedures Date Code Description Status 04/21/2020 31490 X-Ray Hip Min 4 View Completed 03/27/2020 39083 FX Femur Inter/Per/Subtrochanter ic W/Intramedullary Implant Completed Medical Devices Description No Information Available Encounters Type Date Location Provider Dx Diagnosis Office Visit 04/21/2020 3:30p Montgomeryjamal Kendrick PA-C S7 2.141D Displ intertroch fx r femur, subs for clos fx w routn heal Office Visit 03/27/2020 9:35a Montgomeryjamal Tai MD S72.141A Displaced intertrochanteric fracture of [...] Follow up:* with [facility] in 4 weeks with xrays Functional Status Description No Information Available Mental Status Description No Information Available Referrals Description No Information Available
--- OUTSIDE RECORDS SUMMARY | 2020-05-18 16:01 | CCD | Continuity of Care Document ---
Author Author Davion IVY PA-C Organization Unknown Address [address] [place] [address], [place] [address] Phone [phone] Care Team Providers Care Ultrasound Technologist Sonographer Name Role Phone Sharad Call MD AUTM [phone] Shukri Bonner MD AUTM [phone] Margarette Ivy PA-C AUTM [phone] Boston Maxwell MD AUTM Moe Archer MD AUTM [phone] Raul Grover DO AUTM [phone] Willard Woodard MD AUTM [phone] Problems Active Problems Provider Date Coronary arteriosclerosis Margarette Ivy PA-C Onset: 2010 Old myocardial infarction Margarette Ivy PA-C Onset: 2010 Chronic combined systolic and diastolic heart failure Margarette Ivy PA-C Onset: 03/19/2016 Benign hypertensive heart disease with congestive card iac failure Margarette Ivy PA-C Onset: 03/20/2011 Chronic ischemic heart disease Margarette Ivy PA-C Onset: 1 05/20/2010 Automatic implantable cardiac defibrillator in situ Margarette bob PA-C Onset: 03/20/2011 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, implant AND/OR graft Margarette buchanan PA-C Onset: 03/19/2016 Electrocardiogram abnormal Margarette Ivy PA-C Onset: 03/20 Left bundle branch block Margarette Ivy PA-C Onset: 011 Mitral valve disorder Margarette Ivy PA-C Onset: 03/20/2011 Aortic valve disorder Margarette Ivy PA-C Onset: 06/09/2015 Pure hypercholesterolemia Margarette Ivy PA-C Onset: 2013 Cigarette smoker Margarette Ivy PA-C Onset: 03/19/2016 Ventricular fibrillation Margarette Ivy PA-C Onset: 018 Social History Type Date [...] a day (on 04/09/20) 200tabs I49.01 Mirza Leon MD 03/10/2020 Tums 500mg Chewtabs 1-2 by mouth as needed Unknown 02/23/2020 Famotidine 40mg Tablets 1 by mouth every day at bedtime Aaron Escalera MD 01/25/2020 Voltaren 1% Gel apply as d irected daily Unknown 01/25/2020 Torsemide 20mg Tablets 4 by mouth twice every day 720tabs Mirza Leon MD 01/13/2019 Aleve 220mg Tablets 1 by [...] every night at bedtime 90tabs I25.10 Mirza Leon MD 02/04/2014 E78.0 Proair HFA 108(90Base) mcg/Act [...] Capsules 1 puff Daily Hernandez Duran RN [facility] 7 History Medications Amiodarone HCL 200mg Tablets 1 by mouth four times a day (dose will be titrated down) 180tabs I49.01 Pierce Leon MD 02/24/2020 - 03/10/2020 Amiodarone HCL 200mg Tablets 1 by mouth four times a day Mirza Leon MD 02/05/2020 - 02/23/2020 Immunizations Description No [...] Test Result H/L Range Note Basic Metabolic Profile 03/23/2020 [facility] [phone] Glucose, Fasting 109 mg/dL High 70-100 Blood [...] mg/dL Normal 8.8-10.2 Laboratory test finding 03/23/2020 [facility] [phone] Magnesium Level 2.3 mg/dL Normal 1.8-2.4 CBC without Differential 11/27/2019 [facility] - not inter faced (315)- - White Blood Count 10.2 High 4.0-10.0 Red Blood Count 3.78 Low 4.30-6.10 Platelets 231 150-450 Hemoglobin 10.8 Hematocrit 34.0 Basic Metabolic Profile 10/26/2019 [facility] [phone] Glucose, Fasting 92 mg/dL Normal 70-100 Blood Urea Nitrogen 26 mg/dL High 7-18 Creatinine For GFR 1.29 mg/dL Normal 0.70-1.30 Glomerular Filtration Rate 57.6 Normal >42 2 Sodium Level 135 mEq/L Low 136-145 Potassium Serum 5.3 mEq/L High 3.5-5.1 Chloride Level 98 mEq/L Normal 98-107 Carbon Dioxide Level 34 mEq/L High 21-32 Anion Gap 3 mEq/L Low 8-16 Calcium Level 9.0 mg/dL Normal 8.8-10.2 Laboratory test finding 10/26/2019 [facility] [phone] Magnesium Level 3.0 mg/dL High 1.8-2.4 1 Units are mL/min/1.73 m2 Chronic Kidney Disease Staging per NKF: Stage I & II GFR >=60 Normal to Mildly Decreased Stage III GFR 30-59 Moderately Decreased Stage IV GFR 15-29 Severely Decreased Stage V GFR <15 Very Little GFR Left ESRD GFR <15 on INVENTORY ASSOCIATE AND DRIVER 2 Units are mL/min/1.73 m2 Chronic Kidney Disease Staging per NKF: Stage I & II GFR >=60 Normal to Mildly Decreased Stage III GFR 30-59 Moderately Decreased Stage IV GFR 15-29 Severely Decreased Stage V GFR <15 Very Little GFR Left ESRD GFR <15 on INVENTORY ASSOCIATE AND DRIVER Procedures Date Code Description Status 03/10/2020 70611 ECG 12-Lead Completed 01/26/2020 67871 ECG 12-Lead Completed 01/21/2020 89930 Remote Pacemaker/Cardio-Defibril lator Data Acquistion Completed 01/21/2020 52200 Remote Interrogate D evice Eval Cardioverter/Defibrillator-90 Days Completed 10/22/2019 92267 Icd Interrogation Any Leads Comp leted Medical Devices Description No Information Available Encounters Type Date Location Provider Dx Diagnosis Office Visit 03/10/2020 3:00p Main Office Margarette Ivy PA-C I49.0 1 Ventricular fibrillation Z01.810 Encounter for preprocedural cardiovascular examination Office Visit 02/24/2020 3:15p Main Office Margarette Ivy PA-C I49.0 1 Ventricular fibrillation Office Visit 01/26/2020 1:30p Main Office Margarette Ivy PA-C I27.8 1 Cor pulmonale (chronic) I50.42 [...] Office Visit 01/05/2020 10:20a Main Office Mirza Leon MD F17.218 Nicotine dependence, cigarettes, w oth disorders E78.00 Pure hypercholesterolemia, u nspecified I34.0 Nonrheumatic mitral (valve) insufficiency I50.42 Chronic combined systolic an d diastolic hrt fail Office Visit 12/03/2019 2:04p Main Office Mirza Leon MD I50.42 Chronic combined systolic and diastolic hrt fail I49.01 Ventricular fibrillation E78.00 Pure hypercholesterolemia, u nspecified F17.218 Nicotine dependence, cigaret sean, w oth disorders Office Visit 10/28/2019 12:44p Main Office Mirza Leon MD I50.42 Chronic combined systolic and diastolic hrt fail I49.01 Ventricular fibrillation E78.00 Pure hypercholesterolemia, u nspecified F17.218 Nicotine dependence, cigaret sean, w oth disorders Office Visit 10/22/2019 1:00p Main Office Margarette Ivy PA-C I50.4 2 Chronic combined systolic and diastolic hrt fail Z95.810 Presence of automatic (impla ntable) cardiac defibrillator Assessments Date Code Description Provider 03/10/2020 I49.01 Ventricular fibrillation Margarette Ivy PA-C 03/10/2020 Z01.810 Encounter for preprocedural card iovascular examination Margarette Ivy PA-C 02/24/2020 I49.01 Ventricular fibrillation Margarette Ivy PA-C 02/04/2020 I50.42 Chronic combined sys tolic (congestive) and diastolic (congestive) heart failure Mirza Leon MD 02/04/2020 I11.0 Hypertensive heart disease with heart failure Mirza Leon MD 02/04/2020 I34.0 Nonrheumatic mitral (valve) insu fficiency Mirza Leon MD 02/04/2020 E78.00 Pure hypercholesterolemia, unspe cified Mirza Leon MD 01/26/2020 I27.81 Cor pulmonale (chronic) Margarette bob PA-C 01/26/2020 I50.42 Chronic combined sys tolic (congestive) and diastolic (congestive) heart failure Margarette Ivy PA-C 01/26/2020 I11.0 Hypertensive heart disease with heart failure Margarette Ivy PA-C 01/26/2020 I25.5 Ischemic cardiomyopathy Margarette bob, [facility] 01/26/2020 Z95.810 Presence of automatic (implantab le) cardiac defibrillator Margarette Ivy, [facility] 01/26/2020 I49.01 Ventricular fibrillation Margarette Ivy, [facility] 01/26/2020 I25.10 Atherosclerotic heart disease of [place] coronary artery with Margarette Ivy [facility] 01/26/2020 I25.2 Old myocardial infarction Margarette Ivy, [facility] 01/26/2020 R94.31 Abnormal electrocardiogram [ECG] [EKG] Margarette Ivy [facility] 01/26/2020 I44.7 Left bundle-branch block, unspec ified Margarette Ivy, [facility] 01/26/2020 I34.0 Nonrheumatic mitral (valve) insu fficiency Margarette Ivy, [facility] 01/26/2020 I35.8 Other nonrheumatic aortic valve disorders Margarette Ivy, [facility] 01/26/2020 E78.00 Pure hypercholesterolemia, unspe cified Margarette Ivy, [facility] 01/26/2020 F17.218 Nicotine dependence, cigarettes, with other nicotine-induced Margarette Ivy [facility] 01/21/2020 Z95.810 Presence of automatic (implantab le) cardiac defibrillator [facility] 01/05/2020 F17.218 Nicotine dependence, cigarettes, with other nicotine-induced Mirza Leon MD 01/05/2020 E78.00 Pure hypercholesterolemia, unspe cified Mirza Leon MD 01/05/2020 I34.0 Nonrheumatic mitral (valve) insu fficiency Mirza Leon MD 01/05/2020 I50.42 Chronic combined sys tolic (congestive) and diastolic (congestive) heart failure Mirza Leon MD 12/03/2019 I50.42 Chronic combined systolic (conge stive) and diastolic (conges Mirza Leon MD 12/03/2019 I49.01 Ventricular fibrillation Mirza Leon MD 12/03/2019 E78.00 Pure hypercholesterolemia, unspe cified Mirza Leon MD 12/03/2019 F17.218 Nicotine dependence, cigarettes, with other nicotine-induced Mirza Leon MD 10/28/2019 I50.42 Chronic combined systolic (conge stive) and diastolic (conges Mirza Leon MD 10/28/2019 I49.01 Ventricular fibrillation Mirza Leon MD 10/28/2019 E78.00 Pure hypercholesterolemia, unspe cified Mirza Leon MD 10/28/2019 F17.218 Nicotine dependence, cigarettes, with other nicotine-induced Mirza Leon MD 10/22/2019 I50.42 Chronic combined systolic (conge stive) and diastolic (conges Margarette Ivy PA-C 10/22/2019 Z95.810 Presence of automatic (implantab le) cardiac defibrillator Margarette Ivy PA-C Plan of Treatment Future Appointment(s):* 05/04/2020 12:45 pm - Margarette Ivy PA-C at Main Office * 04/21/2020 7:00 am - [facility] at Main Office 03/10/2020 - Margarette Ivy PA-C* I49.01 Ventricular fibrillation* New Medication:* Amiodarone [...]
--- OUTSIDE RECORDS SUMMARY | 2020-05-18 16:01 | CCD ---
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 Active 95195304 Problem Benign prostatic hyperplasia with lower urinary tract symptoms, unspecified morphology N40.1 Active 076420916 Problem Pulmonary arterial hypertension I27.2 Active 46038826 Problem Chronic disease anemia D63.8 Active 210453224 Problem Chronic kidney disease, stage 3 N18.3 Active 329920158 Problem Hypothyroidism (acquired) E03.9 Active 265443 002 Problem Benign prostatic hyperplasia with lower urinary tract symptoms N40.1 Active 742454575 Problem Chronic airway obstruction, not elsewhere classified J44.9 Active 55525327 Problem Chronic venous hypertension (idiopathic) with ulcer of right lower extremity I87.311 Active 445850889 Problem Other allergic rhinitis J30.89 Active 40621426 Problem Anemia, unspecified type D64.9 Active 4045059 00 Problem Vitamin D deficiency E55.9 Active 19757404 Problem Lumbar facet arthropathy M12.88 Active 2549865 08 Problem Primary osteoarthritis involving multiple joints M 15.0 Active 991378658 Problem 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 I50.42 Active 039092800308514 Problem Coronary atherosclerosis I25.10 Active 6600273 00 Problem DNR (do not resuscitate) Z66 Active 3081822 06 DNR/DNI--MOLST on file Problem Interstitial pulmonary fibrosis J84.10 Active 66669498 Problem Chronic respiratory failure with hypercapnia J96.1 2 Active 947342506 Problem Degeneration of lumbar or lumbosacral intervertebral disc M51.37 Active 74900048 Problem Acquired hypothyroidism E03.9 Active 05319476 2 Problem Low back pain M54.5 Active 713997524 Problem Chronic allergic rhinitis J30.9 Active 921734 04 Problem Mixed hyperlipidemia E78.2 Active 628131973 Problem Smoker unmotivated to quit F17.200 Active 27431 002 Problem Hypertensive heart disease with heart failure I11.0 Active 36478983 Problem Valvular heart disease I38 Active 807946 Problem Chronic combined systolic and diastolic heart failure I50.42 Active 930480727459307 Problem Iron deficiency anemia due to chronic blood loss D 50.0 Active 960724129 Problem Nicotine dependence with current use F17.200 Act jarod 541731236 Problem Oxygen dependent Z99.81 Active 803591525422 Problem Cataract, unspecified cataract type, unspecified lateralit y H26.9 Active 601280657 Problem Unsteady gait R26.81 Active 17281652 Problem Cor pulmonale, chronic I27.81 Active 43011654 Problem Cor pulmonale (chronic) I27.81 Active 36148570 Problem Chronic respiratory failure with hypoxia J96.11 Active 008585948 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 Active 646624631 Problem Balanitis N48.1 Active 91057383 Problem COPD exacerbation J44.1 Active 977044744 ALLERGIES Allergen (clinical drug ingredient) Drug/Non Drug Allergy do cumented on EMR Reaction Allergy Type Onset Date Status Sulfa (for allergy use only) Unknown Drug Allergy Active Vicodin altered mental status Drug Allergy A ctive acetaminophen / oxycodone Percocet(NDC Code:[address]-26) hallu cinations Drug Allergy Active nicotine Nicoderm CQ(NDC Code:[address]-74) Rash Drug Allerg y Active Latex Gloves(NDC Code:49054-99931) rash, hives head to toe Drug Allergy Active Shellfish Rash/itching Non Drug Allergy Active ENCOUNTERS from 1945 to 2020-04-06 Encounter Location Date Provider Diagnosis [address] [address] Apr, Jennie Kiet IMMUNIZATIONS Vaccine Route Administration Date Status Influenza [...] School Language: Question Answer Notes Languages spoken: [place] Gnosticism: Question Answer Notes Gnosticism 33 None Sexual Hx: Question Answer Notes [...] REASON FOR REFERRAL No Information VITAL SIGNS No information MEDICATIONS Medication SIG (Take, Route, Frequency, Duration) [...] for 7 da y(s) Dec, Not-Taking Nystatin 671024 UNIT/GM 1 application to affected ar ea [...] MG 1 tablet as needed orally (I STOP:37429718) Twice daily as needed for pain. MDD-2 [...] for 99 months 2017 Active Saline Nasal [place] 0.65 % 2 sprays in each nostril [...] 2 liters per minute Dx: J96.12 for 08323 days Jun, Active Spironolactone 25 mg 1 [...] Information RESULTS No Results REASON FOR VISIT Cx appointment MEDICAL (GENERAL) HISTORY Type Description Date Medical [...] 12/14, 03/18, 08/22 Surgical History BL cataract Hospitalization History for surgeries above Hospitalization History Pancolitis 10/2010 Hospitalization History NBTE 10/2015 Hospitalization History smc COPD 05/22 Hospitalization History COPD exacerbation 10/03-10/07/16 Hospitalization History pneumonia 11/12/16 Hospitalization History pneumonia 01/20 Hospitalization History CHF/pneumonia 07/2017 Goals Section No Information Health Concerns No Information MEDICAL EQUIPMENT No Information MENTAL STATUS No Information FUNCTIONAL STATUS No Information ASSESSMENTS No Information PLAN OF TREATMENT Medication Medication Name Sig Start Date Stop Date Nebulizer - as directed DX: J44.9 for 30 Days Mar, Insurance Providers Payer Name Payer Address Payer Phone Insured Name Patient Relati onship to Insured Coverage Start Date Coverage End Date MEDICARE COMPLETE UNITED HEALTHCARE [address] [address] [facility] [id number] FIDEL TORRES
--- OUTSIDE RECORDS SUMMARY | 2020-05-18 16:01 | CCD ---
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 Active 19324256 Problem Benign prostatic hyperplasia with lower urinary tract symptoms, unspecified morphology N40.1 Active 417734717 Problem Pulmonary arterial hypertension I27.2 Active 05786860 Problem Chronic disease anemia D63.8 Active 944132661 Problem Chronic kidney disease, stage 3 N18.3 Active 287952564 Problem Hypothyroidism (acquired) E03.9 Active 636750 002 Problem Benign prostatic hyperplasia with lower urinary tract symptoms N40.1 Active 805852830 Problem Chronic airway obstruction, not elsewhere classified J44.9 Active 69657282 Problem Chronic venous hypertension (idiopathic) with ulcer of right lower extremity I87.311 Active 681237801 Problem Other allergic rhinitis J30.89 Active 39964849 Problem Anemia, unspecified type D64.9 Active 4389541 00 Problem Vitamin D deficiency E55.9 Active 89783905 Problem Lumbar facet arthropathy M12.88 Active 8451795 08 Problem Primary osteoarthritis involving multiple joints M 15.0 Active 345654320 Problem 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 I50.42 Active 568317778439241 Problem Coronary atherosclerosis I25.10 Active 5951368 00 Problem DNR (do not resuscitate) Z66 Active 2827926 06 DNR/DNI--MOLST on file Problem Interstitial pulmonary fibrosis J84.10 Active 66936861 Problem Chronic respiratory failure with hypercapnia J96.1 2 Active 909136328 Problem Degeneration of lumbar or lumbosacral intervertebral disc M51.37 Active 30830183 Problem Acquired hypothyroidism E03.9 Active 90847289 2 Problem Low back pain M54.5 Active 760910508 Problem Chronic allergic rhinitis J30.9 Active 446206 04 Problem Mixed hyperlipidemia E78.2 Active 426665130 Problem Smoker unmotivated to quit F17.200 Active 54477 002 Problem Hypertensive heart disease with heart failure I11.0 Active 09191886 Problem Valvular heart disease I38 Active 742297 Problem Chronic combined systolic and diastolic heart failure I50.42 Active 575866842408363 Problem Iron deficiency anemia due to chronic blood loss D 50.0 Active 300538538 Problem Nicotine dependence with current use F17.200 Act jarod 522023752 Problem Oxygen dependent Z99.81 Active 749843519308 Problem Cataract, unspecified cataract type, unspecified lateralit y H26.9 Active 302684292 Problem Unsteady gait R26.81 Active 59917429 Problem Cor pulmonale, chronic I27.81 Active 04822893 Problem Cor pulmonale (chronic) I27.81 Active 11093146 Problem Chronic respiratory failure with hypoxia J96.11 Active 284644800 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 Active 401929324 Problem Balanitis N48.1 Active 91581848 Problem COPD exacerbation J44.1 Active 665211555 ALLERGIES Allergen (clinical drug ingredient) Drug/Non Drug Allergy do cumented on EMR Reaction Allergy Type Onset Date Status Sulfa (for allergy use only) Unknown Drug Allergy Active Vicodin altered mental status Drug Allergy A ctive acetaminophen / oxycodone Percocet(NDC Code:[address]-70) hallu cinations Drug Allergy Active nicotine Nicoderm CQ(NDC Code:[address]-34) Rash Drug Allerg y Active Latex Gloves(NDC Code:51184-87095) rash, hives head to toe Drug Allergy Active Shellfish Rash/itching Non Drug Allergy Active ENCOUNTERS from 1945 to 2020-03-22 Encounter Location Date Provider Diagnosis [address] [address] Mar, Jennie Kiet IMMUNIZATIONS Vaccine Route Administration Date [...] School Language: Question Answer Notes Languages spoken: [place] Citizen Presybeterian: Question Answer Notes Presybeterian 33 None Sexual Hx: Question Answer Notes [...] Notes Start Da te End Date Status ProAir HFA 108 (90 Base) MCG/ACT 2 puffs as needed Inh alation every 4 hours as needed for 30 day(s) Active Bisoprolol Fumarate 10 MG 1 tablet Orally Once a day Not-Taking Diclofenac Sodium 1 % apply pea-size amount to saritha nts of hands Transdermal three times daily as needed for joint pain for 30 day(s) Mar, Not-Taking Ranitidine HCl 300 MG 1 tab Orally [...] flow rate for 99 months 2017 Active Amiodarone HCl 200 MG TAKE ONE TABLET BY MOUTH FOU R TIMES A DAY DOSE WILL BE TITRATED DOWN Oral for 45 Active Famotidine 40 MG 1 tablet at [...] a day for 30 days Nov, Not-Taking Simethicone 80 MG 1 tablet as needed Orally two times a day Not-Taking PredniSONE 20 MG as directed Orally Once a day for 10 day(s) Mar, Not-Taking Nitroglycerin 0.4 MG 1 tab Sublingual At onset of chest pain and again in 5 min if symptoms persist. If needing a third call 911 for 30 day(s) Active Albuterol Sulfate (2.5 MG/3ML) 0.083% USE 1 VIAL EVERY 4 HOURS IN NEBULIZER Dx: J96.11 for 30 days Active Oxygen 2LPM nasal cannula continous and portable Dx: J9 6.12 for 9998 days Jul, Active Chantix Continuing Month Marlon 1 MG as directed Orally as directed for 30 Days Aug, Not-Taking Nebulizer/Tubing/Mouthpiece - as directed DX: J44.9 PRN Use for 30 Days Feb, Active PrednisoLONE Acetate 1 % 1 drop into affected eye Oph thalmic Twice a day for 90 day(s) Active Sucralfate 1 GM 1 tablet at bedtime on an em pty stomach before meals Orally Twice a day for 30 Active Torsemide 20 MG 4 tablets by mouth twice a day Orally bid for 30 day( s) Active May Have - please dispense motorized ch air for severely limited mobility Use daily for distances for 9999 days Nov, Not-Taking Reclast 5 MG/100ML 5 mg Intravenous Infused onc e per hospital protocol for 1 dose(s) Dec, Active Saline Nasal [place] 0.65 % 2 sprays in each nostril as needed Nasally every 4 hrs as needed Aug, Active Tramadol HCl 50 MG 1 tablet as needed orally (I STOP:49958680) Twice daily as needed for pain. MDD-2 for 30 No t-Taking Fluticasone Propionate 50 MCG/ACT 1 spray in [...] for 7 da y(s) Dec, Not-Taking Nystatin 640371 UNIT/GM 1 application to affected ar ea [...] Orally Daily for 7 day(s) 2018 Not-Taking PredniSONE 20 MG as directed Orally Once a day for 5 day(s) Jan, Not-Taking Spiriva HandiHaler 18 MCG inhale the contents of one c apsule via handihaler by mouth daily Inhalation Once a day for 30 days Active Nexium 40 MG 1 capsule Orally twice daily for 90 Not-Taking Levothyroxine Sodium 75 mcg 1 tablet on an empty stoma ch in the morning orally Daily for 90 Active Erythromycin 5 MG/GM 1 application as directed Op hthalmic Four times a day for 10 day(s) Feb, Active Venofer 20 MG/ML please infuse 500 mg per hos pital protocol Intravenous once for 1 dose(s) Jun, Not-Taking Ofloxacin 0.3 % 1 drop into affected eye Oph thalmic Four times a day for 7 day(s) Jun, Not-Taking Oxygen continuous and portable nasa l cannula 2 liters per minute Dx: J96.12 for 85839 days Jun, Active Spironolactone 25 mg 1 tablet with food Orally Once a day for 30 Active Finasteride 5 MG 1 tablet Orally Once a day for 30 Active Chantix Starting Month Marlon 0.5 MG X 11 & 1 MG X 42 as directed Orally As indicated on package for 30 days Oct, Active Clotrimazole 1 % 1 application to affected area Externally Twice a day for 30 Active Tamsulosin HCl 0.4 MG TAKE ONE CAPSULE BY MOUTH EVERY DAY for 90 day( s) Active PROCEDURES No Information RESULTS No Results REASON FOR VISIT left lens fragments MEDICAL (GENERAL) HISTORY Type Description Date Medical [...] body of thoracic vertebra Medical History echo 2/18- EF75%- mild charisse l regurg, mild aortic [...] Information ASSESSMENTS No Information PLAN OF TREATMENT Next Appt Details Provider Name:Jennie Santa 2020-04-07 10 :30:00 AM, [address] [place], [address], Insurance Providers Payer Name Payer Address Payer Phone Insured Name Patient Relati onship to Insured Coverage Start Date Coverage End Date MEDICARE COMPLETE UNITED HEALTHCARE [address] [address] [facility] [phone] FIDEL TORRSE
--- OUTSIDE RECORDS SUMMARY | 2020-05-18 16:01 | CCD | Continuity of Care Document ---
Author Author Davion PERDOMO MD Organization Unknown Address [address] [place] [address] Phone [phone] Care Team Providers Care Jewel Blocker And Sawyer Name Role Phone Irma Chairez MD. AUTM [phone] Moe Archer MD AUTM [phone] Problems Active Problems Provider Date Closed fracture of distal end of radius Onset: 02/24/1999 Social History Type Date Description Comments Sex Unknown Allergies, Adverse Reactions, Alerts Description No Information Available Medications Description No Information Available Immunizations Description No Information Available Vital Signs Description No Information Available Results Description No Information Available Procedures Date Code Description Status 03/27/2020 44360 FX Femur Inter/Per/Subtrochanter ic W/Intramedullary Implant Completed Medical Devices Description No Information Available Encounters Type Date Location Provider Dx Diagnosis Office Visit 03/27/2020 9:[facility] [facility] Octavio Perdomo MD S72.141A Displaced intertrochanteric fracture of right femur, init Assessments Date Code Description Provider 03/27/2020 S72.141A Displaced intertroch anteric fracture of right femur, initial encounter for closed fracture Octavio Perdomo MD Plan of Treatment Future Appointment(s):* 04/21/2020 3:30 pm - Octavio Perdomo MD at [facility] Functional Status Description No Information Available Mental Status Description No Information Available Referrals Description No Information Available
--- OUTSIDE RECORDS SUMMARY | 2020-05-18 16:01 | CCD ---
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 Active 69197706 Problem Benign prostatic hyperplasia with lower urinary tract symptoms, unspecified morphology N40.1 Active 647896058 Problem Pulmonary arterial hypertension I27.2 Active 32236085 Problem Chronic disease anemia D63.8 Active 269627908 Problem Chronic kidney disease, stage 3 N18.3 Active 163211636 Problem Hypothyroidism (acquired) E03.9 Active 005683 002 Problem Benign prostatic hyperplasia with lower urinary tract symptoms N40.1 Active 665458949 Problem Chronic airway obstruction, not elsewhere classified J44.9 Active 56097604 Problem Chronic venous hypertension (idiopathic) with ulcer of right lower extremity I87.311 Active 679558015 Problem Other allergic rhinitis J30.89 Active 89849998 Problem Anemia, unspecified type D64.9 Active 9011031 00 Problem Vitamin D deficiency E55.9 Active 28882350 Problem Lumbar facet arthropathy M12.88 Active 1984210 08 Problem Primary osteoarthritis involving multiple joints M 15.0 Active 598995847 Problem 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 I50.42 Active 085712567047346 Problem Coronary atherosclerosis I25.10 Active 6013625 00 Problem DNR (do not resuscitate) Z66 Active 3795064 06 DNR/DNI--MOLST on file Problem Interstitial pulmonary fibrosis J84.10 Active 10297498 Problem Chronic respiratory failure with hypercapnia J96.1 2 Active 491689956 Problem Degeneration of lumbar or lumbosacral intervertebral disc M51.37 Active 23042494 Problem Acquired hypothyroidism E03.9 Active 65526671 2 Problem Low back pain M54.5 Active 237199638 Problem Chronic allergic rhinitis J30.9 Active 865096 04 Problem Mixed hyperlipidemia E78.2 Active 783926731 Problem Smoker unmotivated to quit F17.200 Active 54489 002 Problem Hypertensive heart disease with heart failure I11.0 Active 32941143 Problem Valvular heart disease I38 Active 787265 Problem Chronic combined systolic and diastolic heart failure I50.42 Active 123997182925994 Problem Iron deficiency anemia due to chronic blood loss D 50.0 Active 741035372 Problem Nicotine dependence with current use F17.200 Act jarod 690656182 Problem Oxygen dependent Z99.81 Active 870144415365 Problem Cataract, unspecified cataract type, unspecified lateralit y H26.9 Active 542308238 Problem Unsteady gait R26.81 Active 36333018 Problem Cor pulmonale, chronic I27.81 Active 71214558 Problem Cor pulmonale (chronic) I27.81 Active 82008823 Problem Chronic respiratory failure with hypoxia J96.11 Active 449319984 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 Active 139896994 Problem Balanitis N48.1 Active 69604865 Problem COPD exacerbation J44.1 Active 593085406 ALLERGIES Allergen (clinical drug ingredient) Drug/Non Drug Allergy do cumented on EMR Reaction Allergy Type Onset Date Status Sulfa (for allergy use only) Unknown Drug Allergy Active Vicodin altered mental status Drug Allergy A ctive acetaminophen / oxycodone Percocet(NDC Code:[address]-96) hallu cinations Drug Allergy Active nicotine Nicoderm CQ(NDC Code:[address]-43) Rash Drug Allerg y Active Latex Gloves(NDC Code:07750-74677) rash, hives head to toe Drug Allergy Active Shellfish Rash/itching Non Drug Allergy Active ENCOUNTERS from 1945 to 2020-03-16 Encounter Location Date Provider Diagnosis [address] [address] Mar, Jennie Kiet IMMUNIZATIONS Vaccine Route Administration [...] School Language: Question Answer Notes Languages spoken: Samoan Yazdanism: Question Answer Notes Yazdanism 33 None Sexual Hx: Question Answer Notes [...] MEDICATIONS Medication SIG (Take, Route, Frequency, Duration) Start Date En d Date Status Finasteride 5 MG 1 tablet Orally Once a day for 30 Active Amiodarone HCl 200 MG TAKE ONE TABLET BY MOUTH FOU R TIMES A DAY DOSE WILL BE TITRATED DOWN Oral for 45 Active Nitroglycerin 0.4 MG 1 tab Sublingual At onset of chest pain and again in 5 min if symptoms persist. If needing a third call 911 for 30 day(s) Active Spironolactone 25 mg 1 tablet with food Orally Once a day for 30 Active Chantix Starting Month Marlon 0.5 MG X 11 & 1 MG X 42 as directed Orally as directed for 30 Days Mar, Not-Taking Hydrocodone-Acetaminophen 5-325 MG 1 tablet as needed Orally Three times daily as needed for severe pain. MDD 3 for 30 days Jan, Active Saline Nasal [place] 0.65 % 2 sprays in each nostril as needed Nasally every 4 hrs as needed Aug, Active Tamsulosin HCl 0.4 MG TAKE ONE CAPSULE BY MOUTH EVERY DAY for 90 da y(s) Active Venofer 20 MG/ML please infuse 500 mg per hos pital protocol Intravenous once for 1 dose(s) Jun, Not-Taking ProAir HFA 108 (90 Base) MCG/ACT 2 puffs as needed Inh alation every 4 hours as needed for 30 day(s) Active Diclofenac Sodium 1 % 1 pea size amount Transderma l Daily as needed for 30 day(s) Not-Taking Lidocaine 5 % 1 patch to neck and back; re move after 12 hours Externally Once a day for 30 days Nov, Not-Taking Famotidine 40 MG 1 tablet at bedtime Orally Once a day fo r 30 day(s) May, Not-Taking Aspir-81 81 MG 1 tablet Orally Once a day Active Reclast 5 MG/100ML 5 mg Intravenous Infused onc e per hospital protocol for 1 dose(s) Dec, Active PredniSONE 20 MG as directed Orally Once a day for 10 day(s) Mar Not-Taking Torsemide 20 MG 4 tablets by mouth twice a day Orally bid for 30 da y(s) Active Oxygen 2LPM nasal cannula continous and portabl e Dx: J96.12 for 9999 days Jul, Active Chantix Continuing Month Marlon 1 MG as directed Orally as dire cted for 30 Days Aug, Not-Taking Doxycycline Hyclate 100 MG 1 capsule Orally Twice a day for 7 day(s) Dec, Not-Taking PrednisoLONE Acetate 1 % 1 drop into affected eye Oph thalmic Twice a day for 90 day(s) Active Advair Diskus 250-50 MCG/DOSE 1 puff Inhalation bid for 30 day(s) Not-Taking Zofran 4 MG 1 tablets Orally Three times daily as needed for nausea for 10 day(s) Dec, Not-Taking Bisoprolol Fumarate 10 MG 1 tablet Orally Once a day Not-Taking Fluconazole 150 MG 1 tablet Orally Daily for 7 day(s) Dec, Not-Taking Nystatin 929116 UNIT/GM 1 application to affected ar ea Externally Daily for 30 days Dec, Not-Taking Clotrimazole 1 % 1 application to affected area Externally Twice a day for 30 Active Ofloxacin 0.3 % 1 drop into affected eye Oph thalmic Four times a day for 7 day(s) Jun, Not-Taking Advair HFA 230-21 MCG/ACT 2 puffs Inhalation Twice a day for 30 Active Tums 500 MG Orally as directed Not-Taki ng Nexium 40 MG 1 capsule Orally twice daily for 90 Not-Taking Chantix Continuing Month Marlon 1 MG 1 tablet Orally Twice a da y for 30 day(s) Mar, Not-Taking Ranitidine HCl 300 MG 1 tab Orally daily at bedtime for 30 Not-Taking Erythromycin 5 MG/GM 1 application as directed Op hthalmic Four times a day for 10 day(s) Feb, Active May Have - please dispense motorized ch air for severely limited mobility Use daily for distances for 9999 days Nov, Not-Ta octavio Esomeprazole Magnesium 40 MG 1 capsule Orally twice a day for 30 Da ys Not-Taking Chantix Starting Month Marlon 0.5 MG X 11 & 1 MG X 42 as directed Orally As indicated on package for 30 days Oct, Active Tramadol HCl 50 MG 1 tablet as needed orally (I STOP:[id number]) Twice daily as needed for pain. MDD-2 for 30 Not-Taking Simethicone 80 MG 1 tablet as needed Orally two times a day Not-Taking Nebulizer/Tubing/Mouthpiece - as directed DX: J44.9 PRN Use for 30 Days Feb, Active Sucralfate 1 GM 1 tablet at bedtime on an em pty stomach before meals Orally Twice a day for 30 Active Levothyroxine Sodium 75 mcg 1 tablet on an empty stoma ch in the morning orally Daily for 90 Active Diclofenac Sodium 1 % apply pea-size amount to saritha nts of hands Transdermal three times daily as needed for joint pain for 30 day(s) Mar, Not-Taking Lipitor 80 MG 1 tab Orally at bedtime for 30 Days Active Oxygen continuous and portable nasa l cannula 2 liters per minute Dx: J96.12 for [address] days Jun, Active Acapella Vibratory PEP Device _ as directed Blow force fully into device three times daily for 9 days Jan, Not-Taking PredniSONE 20 MG as directed Orally Once a day for 5 day(s) Jan, Not-Taking Spiriva HandiHaler 18 MCG inhale the contents of one c apsule via handihaler by mouth daily Inhalation Once a day for 30 days Active May Have - Please dispence portable oxy gen concentrator For use when ambulating distances or outside the home 2.5 L flow rate for 99 months Nov, Active Albuterol Sulfate (2.5 MG/3ML) 0.083% USE 1 VIAL EVERY 4 HOURS IN NEBULIZER Dx: J96.11 for 30 days Active Fluticasone Propionate 50 MCG/ACT 1 spray in each nost ril Nasally Once a day for 30 Days Active PROCEDURES No Information RESULTS No Results REASON FOR VISIT atorvastatin MEDICAL (GENERAL) HISTORY Type Description Date Medical [...] Reindl; 08/22- chronic changes 12/14, 03/18, 08/22 Hospitalization History for surgeries above Hospitalization History [...] Medication Name Sig Start Date Stop Date Nebulizer/Tubing/Mouthpiece - as directed DX: J44.9 PRN Use for 30 Days Feb, Fluticasone Propionate 50 MCG/ACT 1 spray in each nost ril Nasally Once a day for 30 Days ProAir HFA 108 (90 Base) MCG/ACT 2 puffs as needed Inh alation every 4 hours as needed for 30 day(s) Lipitor 80 MG 1 tab Orally at bedtime for 30 Days Erythromycin 5 MG/GM 1 application as directed Op hthalmic Four times a day for 10 day(s) Feb, Next Appt Details Provider Name:Jennie Santa 2020-04-07 10 :30:00 AM, [address] [place], [address], Insurance Providers Payer Name Payer Address Payer Phone Insured Name Patient Relati onship to Insured Coverage Start Date Coverage End Date MEDICARE COMPLETE [employer] [address] [address] [facility] [id number] FIDEL TORRES
--- OUTSIDE RECORDS SUMMARY | 2020-05-18 16:01 | CCD ---
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 Active 79681590 Problem Benign prostatic hyperplasia with lower urinary tract symptoms, unspecified morphology N40.1 Active 825458707 Problem Pulmonary arterial hypertension I27.2 Active 65516221 Problem Chronic disease anemia D63.8 Active 163141862 Problem Chronic kidney disease, stage 3 N18.3 Active 364191758 Problem Hypothyroidism (acquired) E03.9 Active 393478 002 Problem Benign prostatic hyperplasia with lower urinary tract symptoms N40.1 Active 407413911 Problem Chronic airway obstruction, not elsewhere classified J44.9 Active 91981905 Problem Chronic venous hypertension (idiopathic) with ulcer of right lower extremity I87.311 Active 652064247 Problem Other allergic rhinitis J30.89 Active 06355142 Problem Anemia, unspecified type D64.9 Active 8085601 00 Problem Vitamin D deficiency E55.9 Active 05135544 Problem Lumbar facet arthropathy M12.88 Active 8213379 08 Problem Primary osteoarthritis involving multiple joints M 15.0 Active 196402332 Problem 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 I50.42 Active 120141126798758 Problem Coronary atherosclerosis I25.10 Active 1541325 00 Problem DNR (do not resuscitate) Z66 Active 5100423 06 DNR/DNI--MOLST on file Problem Interstitial pulmonary fibrosis J84.10 Active 79413566 Problem Chronic respiratory failure with hypercapnia J96.1 2 Active 379821916 Problem Degeneration of lumbar or lumbosacral intervertebral disc M51.37 Active 65947892 Problem Acquired hypothyroidism E03.9 Active 82256130 2 Problem Low back pain M54.5 Active 899691403 Problem Chronic allergic rhinitis J30.9 Active 725921 04 Problem Mixed hyperlipidemia E78.2 Active 198837795 Problem Smoker unmotivated to quit F17.200 Active 00094 002 Problem Hypertensive heart disease with heart failure I11.0 Active 19975158 Problem Valvular heart disease I38 Active 406608 Problem Chronic combined systolic and diastolic heart failure I50.42 Active 302608935947223 Problem Iron deficiency anemia due to chronic blood loss D 50.0 Active 886591542 Problem Nicotine dependence with current use F17.200 Act jarod 049285553 Problem Oxygen dependent Z99.81 Active 871897269654 Problem Cataract, unspecified cataract type, unspecified lateralit y H26.9 Active 425749358 Problem Unsteady gait R26.81 Active 66806641 Problem Cor pulmonale, chronic I27.81 Active 00296214 Problem Cor pulmonale (chronic) I27.81 Active 43949300 Problem Chronic respiratory failure with hypoxia J96.11 Active 190305038 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 Active 600128702 Problem Balanitis N48.1 Active 60266388 Problem COPD exacerbation J44.1 Active 641149476 ALLERGIES Allergen (clinical drug ingredient) Drug/Non Drug Allergy do cumented on EMR Reaction Allergy Type Onset Date Status Sulfa (for allergy use only) Unknown Drug Allergy Active Vicodin altered mental status Drug Allergy A ctive acetaminophen / oxycodone Percocet(NDC Code:[address]-48) hallu cinations Drug Allergy Active nicotine Nicoderm CQ(NDC Code:[address]-08) Rash Drug Allerg y Active Latex Gloves(NDC Code:82208-74510) rash, hives head to toe Drug Allergy Active Shellfish Rash/itching Non Drug Allergy Active ENCOUNTERS from 1945 to 2020-04-09 Encounter Location Date Provider Diagnosis [address] [address] Mar, Jennie Kiet IMMUNIZATIONS Vaccine Route Administration [...] Language: Question Answer Notes Languages spoken: Malawian Taoist: Question Answer Notes Taoist 33 None Sexual Hx: Question Answer Notes [...] for 7 da y(s) Dec, Not-Taking Nystatin 886615 UNIT/GM 1 application to affected ar ea [...] MG 1 tablet as needed orally (I STOP:04946774) Twice daily as needed for pain. MDD-2 [...] for 99 months 2017 Active Saline Nasal [place] 0.65 % 2 sprays in each nostril [...] 2 liters per minute Dx: J96.12 for [address]605 days Jun, Active Spironolactone 25 mg 1 [...] Information RESULTS No Results REASON FOR VISIT nebulizer MEDICAL (GENERAL) HISTORY Type Description Date Medical [...] Date MEDICARE COMPLETE UNITED [employer] [address] [address] [facility] [id number] FIDEL TORRES
--- OUTSIDE RECORDS SUMMARY | 2020-05-18 16:01 | CCD ---
Author Author [facility] Organization 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 Active 76081649 Problem Benign prostatic hyperplasia with lower urinary tract symptoms, unspecified morphology N40.1 Active 136377990 Problem Pulmonary arterial hypertension I27.2 Active 62233185 Problem Chronic disease anemia D63.8 Active 297853427 Problem Chronic kidney disease, stage 3 N18.3 Active 073421922 Problem Hypothyroidism (acquired) E03.9 Active 112124 002 Problem Benign prostatic hyperplasia with lower urinary tract symptoms N40.1 Active 118053484 Problem Chronic airway obstruction, not elsewhere classified J44.9 Active 50881576 Problem Chronic venous hypertension (idiopathic) with ulcer of right lower extremity I87.311 Active 923922531 Problem Other allergic rhinitis J30.89 Active 95987876 Problem Anemia, unspecified type D64.9 Active 8613139 00 Problem Vitamin D deficiency E55.9 Active 46504437 Problem Lumbar facet arthropathy M12.88 Active 0342779 08 Problem Primary osteoarthritis involving multiple joints M 15.0 Active 221691365 Problem 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 I50.42 Active 474431799152980 Problem Coronary atherosclerosis I25.10 Active 6659204 00 Problem DNR (do not resuscitate) Z66 Active 8028244 06 DNR/DNI--MOLST on file Problem Interstitial pulmonary fibrosis J84.10 Active 96151085 Problem Chronic respiratory failure with hypercapnia J96.1 2 Active 641390878 Problem Degeneration of lumbar or lumbosacral intervertebral disc M51.37 Active 87795533 Problem Acquired hypothyroidism E03.9 Active 82193199 2 Problem Low back pain M54.5 Active 610818555 Problem Chronic allergic rhinitis J30.9 Active 723785 04 Problem Mixed hyperlipidemia E78.2 Active 660763298 Problem Smoker unmotivated to quit F17.200 Active 62313 002 Problem Hypertensive heart disease with heart failure I11.0 Active 96035028 Problem Valvular heart disease I38 Active 961590 Problem Chronic combined systolic and diastolic heart failure I50.42 Active 017669261468496 Problem Iron deficiency anemia due to chronic blood loss D 50.0 Active 448646693 Problem Nicotine dependence with current use F17.200 Act jarod 114642942 Problem Oxygen dependent Z99.81 Active 412175653010 Problem Cataract, unspecified cataract type, unspecified lateralit y H26.9 Active 204555074 Problem Unsteady gait R26.81 Active 90204540 Problem Cor pulmonale, chronic I27.81 Active 71462668 Problem Cor pulmonale (chronic) I27.81 Active 32663522 Problem Chronic respiratory failure with hypoxia J96.11 Active 689041672 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 Active 012557609 Problem Balanitis N48.1 Active 91613364 Problem COPD exacerbation J44.1 Active 361566702 ALLERGIES Allergen (clinical drug ingredient) Drug/Non Drug Allergy do cumented on EMR Reaction Allergy Type Onset Date Status Sulfa (for allergy use only) Unknown Drug Allergy Active Vicodin altered mental status Drug Allergy A ctive acetaminophen / oxycodone Percocet(NDC Code:[address]-61) hallu cinations Drug Allergy Active nicotine Nicoderm CQ(NDC Code:[address]-44) Rash Drug Allerg y Active Latex Gloves(NDC Code:81676-99405) rash, hives head to toe Drug Allergy Active Shellfish Rash/itching Non Drug Allergy Active ENCOUNTERS from 1945 to 2020-04-22 Encounter Location Date Provider Diagnosis [address] [address] Feb, Jennie Kiet Redness of eye, right H57.89 ; Chronic a irway obstruction, not elsewhere classified J44.9 ; Coronary atherosclerosis I25.10 ; Mixed hyperlipidemia E78.2 ; Anemia, unspecified type D64.9 ; Gastroesophageal reflux disease with esophagitis K21.0 ; Benign prostatic hyperplasia with lower urinary tract symptoms, unspecified morphology N40.1 ; Hypertensive heart disease with heart failure I11.0 ; Hypothyroidism (acquired) E03.9 ; Chronic kidney disease, stage 3 N18.3 ; Chronic combined systolic and diastolic congestive heart failure I50.42 ; Nicotine dependence with current use F17.200 and Encounter for immunization Z23 IMMUNIZATIONS Vaccine Route Administration Date Status Influenza [...] School Language: Question Answer Notes Languages spoken: Irish Oriental Orthodox: Question Answer Notes Oriental Orthodox 33 None Sexual Hx: Question Answer Notes [...] FOR REFERRAL No Information VITAL SIGNS Weight 167 lbs Feb, Height 69 in Feb, BMI 24.66 kg/m2 Feb, Heart Rate 85 /min Feb, Respiratory Rate 18 /min Feb, Temperature 98 degrees Fahrenheit Feb, Oximetry 96 on 2lpm Feb, Blood pressure systolic 130 mm Hg Feb, Blood pressure diastolic 78 mm Hg Feb, MEDICATIONS Medication SIG (Take, Route, Frequency, Duration) [...] for 7 da y(s) Dec, Not-Taking Nystatin 613005 UNIT/GM 1 application to affected ar ea [...] MG 1 tablet as needed orally (I STOP:[id number]) Twice daily as needed for pain. MDD-2 [...] for 99 months 2017 Active Saline Nasal [place] 0.65 % 2 sprays in each nostril [...] 2 liters per minute Dx: J96.12 for 16466 days Jun, Active Spironolactone 25 mg 1 [...] DAY for 90 day( s) Active PROCEDURES from 1945 to 2020-04-22 Procedure Date Ordered Result Body Site Immunization: Flublok Quadrivalent (18 years & older) 0.5mL IM (Influenza) 2020-03-03 N/A RESULTS No Results REASON FOR VISIT 4 months MEDICAL (GENERAL) HISTORY Type Description Date Medical [...] diastolic dysfunction, PHTN Surgical History ICD replacement 2009,- Surgical History ICD placement 2004 Surgical History [...] Notes Treatment Notes Treatm ent Clinical Notes Feb, Redness of eye, right (ICD-10 - H57.89) will send erythromycin ointment for area around eye and lower eyelid as patient has been scratching the eye Feb, Chronic airway obstruction, not elsewhere classified (ICD-10 - J44.9) chronic, worsening, patient follows with pulmonology, he has an appointment with them soon Feb, Coronary atherosclerosis (ICD-10 - I25.10) chronic, patient follows with cardiology for managment Feb, Mixed hyperlipidemia (ICD-10 - E78.2) based upon updated AHA/ACC cholesterol guidelines 2013, pt's LDL is reduced by current statin tx by sufficient percentage based on 10 year ASCVD risk stratification; no adjustments in statin tx needed Feb, Anemia, unspecified type (ICD-10 - D64.9) chronic, stable Feb, Gastroesophageal reflux disease with eso phagitis (ICD-10 - K21.0) controlled on current medication regimen Feb, Benign prostatic hyperplasia with lower urinary tract symptoms, unspecified morphology (ICD-10 - N40.1) Feb, Hypertensive heart disease with heart failure (I CD-10 - I11.0) Per JNC 8 guidelines, goal BP < 140/90 (150/90 if age >60), is meeting goal on current regimen. Advised heart-healthy diet, sodium restriction Feb, Hypothyroidism (acquired) (ICD-10 - E03.9) asymptomatic on current levothyroxine dose Feb, Chronic kidney disease, stage 3 (ICD-10 - N18.3) chronic, stable, avoid NSAIDs, other nephrotoxic drugs; monitor with periodic lab work; adjust meds for GFR Feb, Chronic combined systolic an d diastolic congestive heart failure (ICD-10 - I50.42) patient follows with cardiology for management, will continue to defer management to them Feb, Nicotine dependence with current use (ICD-10 - F 17.200) patient has been working on cutting back, I congratulated him on his success so far and encouraged him to continue Feb, Encounter for immunization (ICD-10 - Z23) PLAN OF TREATMENT Medication Medication Name Sig Start Date Stop Date Nebulizer - as directed DX: J44.9 for 30 Days Mar, Treatment Notes Assessment Notes Clinical Notes Redness of eye, right will send erythrom ycin ointment for area around eye and lower eyelid as patient has been scratching the eye Chronic airway obstruction, not elsewhere classified chronic, worsening, patient follows with pulmonology, he has an appointment with them soon Coronary atherosclerosis chronic, patien t follows with cardiology for managment Mixed hyperlipidemia based upon updated AHA/ACC cholesterol guidelines 2013, pt's LDL is reduced by current statin tx by sufficient percentage based on 10 year ASCVD risk stratification; no adjustments in statin tx needed Anemia, unspecified type chronic, stable Gastroesophageal reflux disease with esophagitis controlled on current medication regimen Hypertensive heart disease with heart failure Per JNC 8 guidelines, goal BP < 140/90 (150/90 if age >60), is meeting goal on current regimen. Advised heart- healthy diet, sodium restriction Hypothyroidism (acquired) asymptomatic o n current levothyroxine dose Chronic kidney disease, stage 3 chronic, stable, avoid NSAIDs, other nephrotoxic drugs; monitor with periodic lab work; adjust meds for GFR Chronic combined systolic and diastolic congestive heart demarco rodger patient follows with cardiology for management, will continue to defer management to them Nicotine dependence with current use caitlin ogden has been working on cutting back, I congratulated him on his success so far and encouraged him to continue Next Appt Details 2 Months Reason: Insurance Providers Payer Name Payer Address Payer Phone Insured Name Patient Relati onship to Insured Coverage Start Date Coverage End Date MEDICARE COMPLETE [employer] [address] [address] [facility] [phone] FIDEL TORRES self
--- OUTSIDE RECORDS SUMMARY | 2020-05-18 16:02 | CCD ---
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 Active 18852484 Problem Benign prostatic hyperplasia with lower urinary tract symptoms, unspecified morphology N40.1 Active 256474489 Problem Pulmonary arterial hypertension I27.2 Active 78965179 Problem Chronic disease anemia D63.8 Active 800288155 Problem Chronic kidney disease, stage 3 N18.3 Active 953999994 Problem Hypothyroidism (acquired) E03.9 Active 198510 002 Problem Benign prostatic hyperplasia with lower urinary tract symptoms N40.1 Active 291034607 Problem Chronic airway obstruction, not elsewhere classified J44.9 Active 41623631 Problem Chronic venous hypertension (idiopathic) with ulcer of right lower extremity I87.311 Active 634770740 Problem Other allergic rhinitis J30.89 Active 04608871 Problem Anemia, unspecified type D64.9 Active 4096134 00 Problem Vitamin D deficiency E55.9 Active 84383205 Problem Lumbar facet arthropathy M12.88 Active 2870454 08 Problem Primary osteoarthritis involving multiple joints M 15.0 Active 114673778 Problem 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 I50.42 Active 307384621948643 Problem Coronary atherosclerosis I25.10 Active 3329125 00 Problem DNR (do not resuscitate) Z66 Active 5688046 06 DNR/DNI--MOLST on file Problem Interstitial pulmonary fibrosis J84.10 Active 04291386 Problem Chronic respiratory failure with hypercapnia J96.1 2 Active 639554952 Problem Degeneration of lumbar or lumbosacral intervertebral disc M51.37 Active 23542028 Problem Acquired hypothyroidism E03.9 Active 59741566 2 Problem Low back pain M54.5 Active 860204119 Problem Chronic allergic rhinitis J30.9 Active 282977 04 Problem Mixed hyperlipidemia E78.2 Active 556435044 Problem Smoker unmotivated to quit F17.200 Active 20883 002 Problem Hypertensive heart disease with heart failure I11.0 Active 17835696 Problem Valvular heart disease I38 Active 856269 Problem Chronic combined systolic and diastolic heart failure I50.42 Active 303150204729877 Problem Iron deficiency anemia due to chronic blood loss D 50.0 Active 522439048 Problem Nicotine dependence with current use F17.200 Act jarod 389359697 Problem Oxygen dependent Z99.81 Active 797775399234 Problem Cataract, unspecified cataract type, unspecified lateralit y H26.9 Active 300000756 Problem Unsteady gait R26.81 Active 34883206 Problem Cor pulmonale, chronic I27.81 Active 50186470 Problem Cor pulmonale (chronic) I27.81 Active 06376640 Problem Chronic respiratory failure with hypoxia J96.11 Active 677926160 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 Active 499345118 Problem Balanitis N48.1 Active 51758022 Problem COPD exacerbation J44.1 Active 603569825 ALLERGIES Allergen (clinical drug ingredient) Drug/Non Drug Allergy do cumented on EMR Reaction Allergy Type Onset Date Status Sulfa (for allergy use only) Unknown Drug Allergy Active Vicodin altered mental status Drug Allergy A ctive acetaminophen / oxycodone Percocet(NDC Code:[address]-76) hallu cinations Drug Allergy Active nicotine Nicoderm CQ(NDC Code:[address]-04) Rash Drug Allerg y Active Latex Gloves(NDC Code:11050-70030) rash, hives head to toe Drug Allergy Active Shellfish Rash/itching Non Drug Allergy Active ENCOUNTERS from 1945 to 2020-03-07 Encounter Location Date Provider Diagnosis [address] [address] Mar, Jennie Kiet IMMUNIZATIONS Vaccine Route Administration [...] School Language: Question Answer Notes Languages spoken: Belarusian Adventist: Question Answer Notes Adventist 33 None Sexual Hx: Question Answer Notes [...] Once a day for 30 Active Chantix Continuing Month Marlon 1 MG as directed Orally as dire cted for 30 Days Aug, Not-Taking Famotidine 40 MG 1 tablet at bedtime Orally Once a day fo r 30 day(s) May, Not-Taking Lipitor 80 MG 1 tab Orally at bedtime for 30 Days Active Amiodarone HCl 200 MG TAKE ONE TABLET BY MOUTH FOU R TIMES A DAY DOSE WILL BE TITRATED DOWN Oral for 45 Active Advair HFA 230-21 MCG/ACT 2 puffs Inhalation Twice a day for 30 Active Saline Nasal [place] 0.65 % 2 sprays in each nostril as needed Nasally every 4 hrs as needed Aug, Active Nexium 40 MG 1 capsule Orally twice daily for 90 Not-Taking Chantix Starting Month Marlon 0.5 MG X 11 & 1 MG X 42 as directed Orally as directed for 30 Days Mar, Not-Taking Ranitidine HCl 300 MG 1 tab Orally daily at bedtime for 30 Not-Taking Diclofenac Sodium 1 % 1 pea size amount Transderma l Daily as needed for 30 day(s) Not-Taking Lidocaine 5 % 1 patch to neck and back; re move after 12 hours Externally Once a day for 30 days Nov, Not-Taking Venofer 20 MG/ML please infuse 500 mg per hos pital protocol Intravenous once for 1 dose(s) Jun, Not-Taking Aspir-81 81 MG 1 tablet Orally [...] Dx: J96.12 for 9999 days Jul, Active Tamsulosin HCl 0.4 MG TAKE ONE CAPSULE BY MOUTH EVERY DAY for 90 da y(s) Active Doxycycline Hyclate 100 MG 1 capsule Orally [...] Daily for 7 day(s) Dec, Not-Taking Nystatin 224492 UNIT/GM 1 application to affected ar ea Externally Daily for 30 days Dec, Not-Taking Clotrimazole 1 % 1 application to affected area Externally Twice a day for 30 Active Diclofenac Sodium 1 % apply pea-size amount to saritha nts of hands Transdermal three times daily as needed for joint pain for 30 day(s) Mar, Not-Taking Nitroglycerin 0.4 MG 1 tab Sublingual At onset of chest pain and again in 5 min if symptoms persist. If needing a third call 911 for 30 day(s) Active Tums 500 MG Orally as directed Not-Taki ng Spironolactone 25 mg 1 tablet with food Orally Once a day for 30 Active Ofloxacin 0.3 % 1 drop into affected eye Oph thalmic Four times a day for 7 day(s) Jun, Not-Taking Hydrocodone-Acetaminophen 5-325 MG 1 tablet as needed Orally Three times daily as needed for severe pain. MDD 3 for 30 days Jan, Active Erythromycin 5 MG/GM 1 application as directed Op hthalmic Four times a day for 10 day(s) Feb, Active May Have - please dispense motorized ch air for severely limited mobility Use daily for distances for 9999 days Nov, Not-Ta octavio Chantix Continuing Month Marlon 1 MG 1 tablet Orally Twice a da y for 30 day(s) Mar, Not-Taking Chantix Starting Month Marlon 0.5 MG X 11 & 1 MG X 42 as directed Orally As indicated on package for 30 days Oct, Active Tramadol HCl 50 MG 1 tablet as needed orally (I STOP:[id number]) Twice daily as needed for pain. MDD-2 for 30 Not-Taking Simethicone 80 MG 1 tablet as needed Orally two times a day Not-Taking Nebulizer/Tubing/Mouthpiece - as directed DX: J44.9 PRN Use for 30 Days Feb, Active Sucralfate 1 GM 1 tablet at bedtime on an em pty stomach before meals Orally Twice a day for 30 Active ProAir HFA 108 (90 Base) MCG/ACT 2 puffs as needed Inh alation every 4 hours as needed for 30 day(s) Active Levothyroxine Sodium 75 mcg 1 tablet on an empty stoma ch in the morning orally Daily for 90 Active Esomeprazole Magnesium 40 MG 1 capsule Orally twice a day for 30 Da ys Not-Taking Oxygen continuous and portable nasa l cannula 2 liters per minute Dx: J96.12 for 63643 days Jun, Active Acapella Vibratory PEP Device _ as directed Blow force fully into device three times daily for 9998 days Jan, Not-Taking PredniSONE 20 MG as [...] Information RESULTS No Results REASON FOR VISIT flonase MEDICAL (GENERAL) HISTORY Type Description Date Medical [...] Nasally Once a day for 30 Days Erythromycin 5 MG/GM 1 application as directed Op hthalmic Four times a day for 10 day(s) Feb, Next Appt Details Provider Name:Jennie Santa 2020-04-07 10 :30:00 AM, [address] [place], [address], Insurance Providers Payer Name Payer Address Payer Phone Insured Name Patient Relati onship to Insured Coverage Start Date Coverage End Date MEDICARE COMPLETE UNITED [employer]CARE [address] [address] [facility] [id number] FIDEL TORRES
--- OUTSIDE RECORDS SUMMARY | 2020-05-18 16:02 | CCD ---
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 53065123 Problem Benign prostatic hyperplasia with lower urinary tract symptoms, unspecified morphology N40.1 Active 863734700 Problem Pulmonary arterial hypertension I27.2 Active 87515416 Problem Chronic disease anemia D63.8 Active 472611190 Problem Chronic kidney disease, stage 3 N18.3 Active 499914920 Problem Hypothyroidism (acquired) E03.9 Active 111142 002 Problem Benign prostatic hyperplasia with lower urinary tract symptoms N40.1 Active 607834592 Problem Chronic airway obstruction, not elsewhere classified J44.9 Active 00026817 Problem Chronic venous hypertension (idiopathic) with ulcer of right lower extremity I87.311 Active 345598370 Problem Other allergic rhinitis J30.89 Active 66794052 Problem Anemia, unspecified type D64.9 Active 1006801 00 Problem Vitamin D deficiency E55.9 Active 57224644 Problem Lumbar facet arthropathy M12.88 Active 2099047 08 Problem Primary osteoarthritis involving multiple joints M 15.0 Active 522321090 Problem 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 I50.42 Active 859890539118567 Problem Coronary atherosclerosis I25.10 Active 6736610 00 Problem DNR (do not resuscitate) Z66 Active 8640223 06 DNR/DNI--MOLST on file Problem Interstitial pulmonary fibrosis J84.10 Active 47837522 Problem Chronic respiratory failure with hypercapnia J96.1 2 Active 312619071 Problem Degeneration of lumbar or lumbosacral intervertebral disc M51.37 Active 28103699 Problem Acquired hypothyroidism E03.9 Active 53941902 2 Problem Low back pain M54.5 Active 001453866 Problem Chronic allergic rhinitis J30.9 Active 060545 04 Problem Mixed hyperlipidemia E78.2 Active 017314564 Problem Smoker unmotivated to quit F17.200 Active 75945 002 Problem Hypertensive heart disease with heart failure I11.0 Active 40177363 Problem Valvular heart disease I38 Active 148638 Problem Chronic combined systolic and diastolic heart failure I50.42 Active 656559122919841 Problem Iron deficiency anemia due to chronic blood loss D 50.0 Active 821916331 Problem Nicotine dependence with current use F17.200 Act jarod 746425434 Problem Oxygen dependent Z99.81 Active 942212807148 Problem Cataract, unspecified cataract type, unspecified lateralit y H26.9 Active 746803238 Problem Unsteady gait R26.81 Active 36712190 Problem Cor pulmonale, chronic I27.81 Active 22897447 Problem Cor pulmonale (chronic) I27.81 Active 16406135 Problem Chronic respiratory failure with hypoxia J96.11 Active 286787641 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 Active 713191092 Problem Balanitis N48.1 Active 13977999 Problem COPD exacerbation J44.1 Active 723857771 ALLERGIES Allergen (clinical drug ingredient) Drug/Non Drug Allergy do cumented on EMR Reaction Allergy Type Onset Date Status Sulfa (for allergy use only) Unknown Drug Allergy Active Vicodin altered mental status Drug Allergy A ctive acetaminophen / oxycodone Percocet(NDC Code:[address]-02) hallu cinations Drug Allergy Active nicotine Nicoderm CQ(NDC Code:[address]-46) Rash Drug Allerg y Active Latex Gloves(NDC Code:30922-66156) rash, hives head to toe Drug Allergy Active Shellfish Rash/itching Non Drug Allergy Active ENCOUNTERS from 1945 to 2020-03-10 Encounter Location Date Provider Diagnosis [address] [address] Mar, Jenniejolie Hitchcockon COPD exacerbation J44.1 IMMUNIZATIONS Vaccine Route Administration Date Status Influenza [...] School Language: Question Answer Notes Languages spoken: Yoruba [employer]: Question Answer Notes [employer] 31 None Sexual Hx: Question Answer Notes [...] Orally Once a day for 30 Active Diclofenac Sodium 1 % apply pea-size amount to saritha nts of hands Transdermal three times daily as needed for joint pain for 30 day(s) Mar, Not-Taking Nitroglycerin 0.4 MG 1 tab Sublingual At onset of chest pain and again in 5 min if symptoms persist. If needing a third call 911 for 30 day(s) Active Lipitor 80 MG 1 tab Orally at bedtime for 30 Days Active Ofloxacin 0.3 % 1 drop into affected eye Oph thalmic Four times a day for 7 day(s) Jun, Not-Taking Hydrocodone-Acetaminophen 5-325 MG 1 tablet as needed Orally Three times daily as needed for severe pain. MDD 3 for 30 days Jan, Active Saline Nasal [place] 0.65 % 2 sprays in each nostril as needed Nasally every 4 hrs as needed Aug, Active Nexium 40 MG 1 capsule Orally twice daily for 90 Not-Taking Chantix Continuing Month Marlon 1 MG 1 tablet Orally Twice a da y for 30 day(s) Mar, Not-Taking ProAir HFA 108 (90 Base) MCG/ACT 2 puffs as needed Inh alation every 4 hours as needed for 30 day(s) Active Diclofenac Sodium 1 % 1 pea size amount Transderma l Daily as needed for 30 day(s) Not-Taking Lidocaine 5 % 1 patch to neck and back; re move after 12 hours Externally Once a day for 30 days Nov, Not-Taking Esomeprazole Magnesium 40 MG 1 capsule Orally twice a day for 30 Da ys Not-Taking Aspir-81 81 MG 1 tablet Orally [...] Dx: J96.12 for 9999 days Jul, Active Levothyroxine Sodium 75 mcg 1 tablet on an empty stoma ch in the morning orally Daily for 90 Active Doxycycline Hyclate 100 MG 1 capsule [...] Daily for 7 day(s) Dec, Not-Taking Nystatin 798911 UNIT/GM 1 application to affected ar ea Externally Daily for 30 days Dec, Not-Taking Clotrimazole 1 % 1 application to affected area Externally Twice a day for 30 Active Amiodarone HCl [...] distances for 9999 days Nov, Not-Ta octavio Venofer 20 MG/ML please infuse 500 mg per hos pital protocol Intravenous once for 1 dose(s) Jun, Not-Taking Chantix Starting Month Marlon 0.5 MG X 11 & 1 MG X 42 as directed Orally As indicated on package for 30 days Oct, Active Tramadol HCl 50 MG 1 tablet as needed orally (I STOP:[id number]) Twice daily as needed for pain. MDD-2 for 30 Not-Taking Simethicone 80 MG 1 tablet as needed Orally two times a day Not-Taking Nebulizer/Tubing/Mouthpiece - as directed DX: J44.9 PRN Use for 30 Days Feb, Active Sucralfate 1 GM 1 tablet at bedtime on an em pty stomach before meals Orally Twice a day for 30 Active Tamsulosin HCl 0.4 MG TAKE ONE CAPSULE BY MOUTH EVERY DAY for 90 da y(s) Active Chantix Continuing Month Marlon 1 MG as directed Orally as dire cted for 30 Days Aug, Not-Taking Famotidine 40 MG 1 tablet at bedtime Orally Once a day fo r 30 day(s) May, Not-Taking Oxygen continuous and portable nasa l cannula 2 liters per minute Dx: J96.12 for 15558 days Jun, Active Acapella Vibratory PEP Device _ as directed Blow force fully into device three times daily for 9999 days Jan, Not-Taking PredniSONE 20 MG as [...] Information RESULTS No Results REASON FOR VISIT proair MEDICAL (GENERAL) HISTORY Type Description Date Medical [...] STATUS No Information ASSESSMENTS Encounter Date Diagnosis Notes Mar, COPD exacerbation (ICD-10 - J44.1) PLAN OF TREATMENT Medication Medication Name Sig Start Date Stop Date Nebulizer/Tubing/Mouthpiece - as directed DX: J44.9 PRN Use for 30 Days Feb, Fluticasone Propionate 50 MCG/ACT 1 spray in each nost ril Nasally Once a day for 30 Days Erythromycin 5 MG/GM 1 application as directed Op hthalmic Four times a day for 10 day(s) Feb, ProAir HFA 108 (90 Base) MCG/ACT 2 puffs as needed Inh alation every 4 hours as needed for 30 day(s) Next Appt Details Provider Name:Jennie Santa, 2020-04-07 10 :30:00 AM, [address] [place], [address], Insurance Providers Payer Name Payer Address Payer Phone Insured Name Patient Relati onship to Insured Coverage Start Date Coverage End Date MEDICARE COMPLETE [employer] [address] [address] [facility] [id number] FIDEL TORRES
--- OUTSIDE RECORDS SUMMARY | 2020-05-18 16:02 | CCD ---
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 Active 38574985 Problem Benign prostatic hyperplasia with lower urinary tract symptoms, unspecified morphology N40.1 Active 281305651 Problem Pulmonary arterial hypertension I27.2 Active 77408570 Problem Chronic disease anemia D63.8 Active 569265879 Problem Chronic kidney disease, stage 3 N18.3 Active 063913617 Problem Hypothyroidism (acquired) E03.9 Active 104716 002 Problem Benign prostatic hyperplasia with lower urinary tract symptoms N40.1 Active 061633672 Problem Chronic airway obstruction, not elsewhere classified J44.9 Active 86227531 Problem Chronic venous hypertension (idiopathic) with ulcer of right lower extremity I87.311 Active 841333178 Problem Other allergic rhinitis J30.89 Active 07977339 Problem Anemia, unspecified type D64.9 Active 0169124 00 Problem Vitamin D deficiency E55.9 Active 34914018 Problem Lumbar facet arthropathy M12.88 Active 9392630 08 Problem Primary osteoarthritis involving multiple joints M 15.0 Active 546135389 Problem 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 I50.42 Active 669294459769135 Problem Coronary atherosclerosis I25.10 Active 2997449 00 Problem DNR (do not resuscitate) Z66 Active 6248685 06 DNR/DNI--MOLST on file Problem Interstitial pulmonary fibrosis J84.10 Active 69754515 Problem Chronic respiratory failure with hypercapnia J96.1 2 Active 095381721 Problem Degeneration of lumbar or lumbosacral intervertebral disc M51.37 Active 00173699 Problem Acquired hypothyroidism E03.9 Active 87606527 2 Problem Low back pain M54.5 Active 464341739 Problem Chronic allergic rhinitis J30.9 Active 831770 04 Problem Mixed hyperlipidemia E78.2 Active 228272727 Problem Smoker unmotivated to quit F17.200 Active 70529 002 Problem Hypertensive heart disease with heart failure I11.0 Active 70907841 Problem Valvular heart disease I38 Active 546942 Problem Chronic combined systolic and diastolic heart failure I50.42 Active 513063182806833 Problem Iron deficiency anemia due to chronic blood loss D 50.0 Active 827044702 Problem Nicotine dependence with current use F17.200 Act jarod 577131257 Problem Oxygen dependent Z99.81 Active 181310036282 Problem Cataract, unspecified cataract type, unspecified lateralit y H26.9 Active 631383314 Problem Unsteady gait R26.81 Active 43379399 Problem Cor pulmonale, chronic I27.81 Active 36547474 Problem Cor pulmonale (chronic) I27.81 Active 67615493 Problem Chronic respiratory failure with hypoxia J96.11 Active 895298267 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 Active 852873109 Problem Balanitis N48.1 Active 15445296 Problem COPD exacerbation J44.1 Active 481153531 ALLERGIES Allergen (clinical drug ingredient) Drug/Non Drug Allergy do cumented on EMR Reaction Allergy Type Onset Date Status Sulfa (for allergy use only) Unknown Drug Allergy Active Vicodin altered mental status Drug Allergy A ctive acetaminophen / oxycodone Percocet(NDC Code:[address]-22) hallu cinations Drug Allergy Active nicotine Nicoderm CQ(NDC Code:[address]-61) Rash Drug Allerg y Active Latex Gloves(NDC Code:67751-95111) rash, hives head to toe Drug Allergy Active Shellfish Rash/itching Non Drug Allergy Active ENCOUNTERS from 1945 to 2020-03-04 Encounter Location Date Provider Diagnosis [address] [address] Feb, Jennie Kiet IMMUNIZATIONS Vaccine Route Administration Date [...] School Language: Question Answer Notes Languages spoken: Belizean [employer]ism: Question Answer Notes [employer]ism 31 None Sexual Hx: Question Answer Notes [...] Duration) Start Date En d Date Status Clotrimazole 1 % 1 application to affected [...] a day for 7 day(s) Jun, Not-Taking Fluticasone Propionate 50 MCG/ACT 1 spray in each nost ril Nasally Once a day for 30 Active Saline Nasal [place] 0.65 % 2 sprays in each nostril as needed Nasally every 4 hrs as needed Aug, Active ProAir HFA 108 (90 Base) MCG/ACT 2 puffs as needed Inh alation every 4 hours as needed for 30 day(s) Active Chantix Continuing Month Marlon 1 MG 1 [...] hospital protocol for 1 dose(s) Dec, Active Sucralfate 1 GM 1 tablet at bedtime on an em pty stomach before meals Orally Twice a day for 30 Active PrednisoLONE Acetate 1 % 1 drop into affected eye Oph thalmic Twice a day for 90 day(s) Active Oxygen continuous and portable nasa l cannula 2 liters per minute Dx: J96.12 for 12906 days Jun, Active Levothyroxine Sodium 75 mcg 1 tablet on an empty stoma ch in the morning orally Daily for 90 Active Advair Diskus 250-50 MCG/DOSE 1 puff Inhalation bid for 30 day(s) Not-Taking Doxycycline Hyclate 100 MG 1 capsule Orally Twice a day for 7 day(s) Dec, Not-Taking Nebulizer/Tubing/Mouthpiece - as directed DX: J44.9 PRN Use for 30 Days Feb, Active Zofran 4 MG 1 tablets Orally Three times daily as needed for nausea for 10 day(s) Dec, Not-Taking Bisoprolol Fumarate 10 MG 1 tablet Orally Once a day Not-Taking Fluconazole 150 MG 1 tablet Orally Daily for 7 day(s) Dec, Not-Taking Nystatin 798124 UNIT/GM 1 application to affected ar ea Externally Daily for 30 days Dec, Not-Taking Lipitor 80 MG 1 tab Orally [...] mobility Use daily for distances for 9999 Nov, Not-Ta octavio Venofer 20 MG/ML please infuse 500 mg per hos pital protocol Intravenous once for 1 dose(s) Jun, Not-Taking Chantix Starting Month Marlon 0.5 MG X 11 & 1 MG X 42 as directed Orally As indicated on package for 30 days Oct, Active Tramadol HCl 50 MG 1 tablet as needed orally (I STOP:[id number]) Twice daily as needed for pain. MDD-2 for 30 Not-Taking Simethicone 80 MG 1 tablet as needed Orally two times a day Not-Taking PredniSONE 20 MG as directed Orally Once a day for 10 day(s) Mar Not-Taking Oxygen 2LPM nasal cannula continous and portabl [...] day fo r 30 day(s) May, Not-Taking Finasteride 5 MG 1 tablet Orally Once a day for 30 Active Torsemide 20 MG 4 tablets by mouth twice a day Orally bid for 30 da y(s) Active Spiriva HandiHaler 18 MCG inhale the contents of one c apsule via handihaler by mouth daily Inhalation Once a day for 30 days Active Acapella Vibratory PEP Device _ as directed Blow force fully into device three times daily for 9 days Jan, Not-Taking May Have - Please dispence portable oxy gen concentrator For use when ambulating distances or outside the home 2.5 L flow rate for 99 months Nov, Active PredniSONE 20 MG as directed Orally Once a day for 5 day(s) Jan, Not-Taking Albuterol Sulfate (2.5 MG/3ML) 0.083% USE 1 VIAL EVERY 4 HOURS IN NEBULIZER Dx: J96.11 for 30 days Active PROCEDURES No Information RESULTS No Results REASON FOR VISIT refill-Neb cup and tubing MEDICAL (GENERAL) HISTORY Type Description Date Medical [...] Medication Name Sig Start Date Stop Date Erythromycin 5 MG/GM 1 application as directed Op hthalmic Four times a day for 10 day(s) Feb, Nebulizer/Tubing/Mouthpiece - as directed DX: J44.9 PRN Use for 30 Days Feb, Next Appt Details Provider Name:Jennie Santa 2020-04-07 10 :30:00 AM, [address] [place], [address], Insurance Providers Payer Name Payer Address Payer Phone Insured Name Patient Relati onship to Insured Coverage Start Date Coverage End Date MEDICARE COMPLETE [employer] [address] [address] [facility] [id number] FIDEL TORRES
--- OUTSIDE RECORDS SUMMARY | 2020-05-18 16:02 | CCD | Continuity of Care Document ---
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) 26-Apr-2017 Status: Active Chronic respiratory failure with hypercapnia (J96.12) 26-Apr-2017 Status: Active Chronic respiratory failure with hypoxia (J96.11) 26-Apr-2017 Status: Active 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) 26-Apr-2017 Status: Active Anemia in chronic k idney disease (D63.1) 26-Apr-2017 Status: Active Chronic kidney dise ase, stage 3 (moderate) (N18.3) 26-Apr-2017 Status: Active 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) 26-Apr-2017 Status: Active Ischemic cardiomyop athy (I25.5) 26-Apr-2017 Status: Active 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 (I25.10) 26-Apr-2017 Status: Active Pulmonary hypertens ion, unspecified (I27.20) 20-Aug-2017 Status: Active Right heart failure , unspecified (I50.810) 17-Dec-2017 Status: Active Other retention of urine (R33.8) 17-Dec-2017 Status: Active 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) 17-Jun-2018 Status: Active 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 behavioral disturbance (F02.80) 11-Dec-2018 Status: Active History of falling (Z91.81) 09-Feb-2019 Status: Active Dependence on suppl emental oxygen (Z99.81) 09-Feb-2019 Status: Active Presence of automat ic (implantable) cardiac defibrillator (Z95.810) 09-Feb-2019 Status: Active Polymyalgia rheumat ica (M35.3) 13-Apr-2019 Status: Active Nicotine dependence , cigarettes, uncomplicated (F17.210) 13-Apr-2019 Status: Active Benign prostatic hy perplasia with lower urinary tract symptoms (N40.1) 13-Apr-2019 Status: Active 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 (Z79.51) 09-Jun-2019 Status: Active snf (current) use of opiate analgesic (Z79.891) 09-Jun-2019 Status: Active Hypothyroidism, uns pecified (E03.9) 01-Dec-2019 Status: Active Medications Name Dates Details Amiodarone HCl 200 MG Moe Archer Active Amiodarone HCl 200 MG Yasmin Archer Start : 10-Feb-2020 Active Sucralfate 1 GM Yasmin Archer Start : 01-Feb-2020 Active Oxygen Yasmin Archer Start : 01-Feb-2020 Active Clotrimazole 1 % PRN rash to groin Yasmin Archer Start : 01-Feb-2020 Active Afrin 12 Hour 0.05 % Yasmin Archer Start : 01-Feb-2020 Active Voltaren 1 % twice per day to muscle aches as needed for pain, max daily dose 2 applications Yasmin Archer Start : 02-Dec-2019 Active PredniSONE 20 MG Yasmin Archer Start : 28-Nov-2019 End : 02-Dec-2019 Inactive Aleve 220 MG PRN pain, max daily dose 3 tab Yasmin Archer Start : 21-May-2019 Active Prednisone x 8 days Lucas Cabezas* Start : 26-Jan-2019 End : 02-Feb-2019 Inactive Cefuroxime Axetil 500 MG x 10 days Lucas Cabezas* Start : 16-Jan-2019 End : 26-Jan-2019 Inactive Prednisone 3 tabs=60mg x 5 days RayLucas* Start : 16-Jan-2019 End : 21-Jan-2019 Inactive Chantix Starting Month Marlon 0.5 MG X 11 & 1 MG X 42 RayLucas* Start : 25-Nov-2018 End : 10-Jun-2019 Inactive Bumetanide 2 MG RayLucas* Start : 25-Nov-2018 End : 12-Dec-2018 Inactive Tamsulosin HCl 0.4 MG RayLucas* Start : 15-Jul-2018 Active Torsemide 20 MG RaulitoLucas* Start : 15-Jul-2018 Active HYDROcodone-Acetaminophen 5-325 MG PRN pain, max daily dose 3 tab RaulitoLucas* Start : 15-Jul-2018 Active Torsemide 20 MG RaulitoLucas* Start : 18-Jun-2018 End : 15-Jul-2018 Inactive Oseltamivir Phosphate 75 MG Lucas Cabezas* Start : 18-Jun-2018 End : 01-Jul-2018 Inactive PredniSONE 20 MG Lucas Cabezas* Start : 18-Jun-2018 End : 01-Jul-2018 Inactive Torsemide 20 MG RaulitoLucas* Start : 16-Apr-2018 End : 18-Jun-2018 Inactive HYDROcodone-Acetaminophen 5-325 MG PRN, max daily dose 3 tab RaulitoLucas* Start : 26-Mar-2018 End : 14-Jul-2018 Inactive Torsemide 20 MG RaulitoLucas* Start : 15-Jan-2018 End : 16-Apr-2018 Inactive Sucralfate 1 GM Lucas Cabezas* Start : 08-Jan-2018 End : 16-Sep-2018 Inactive Aleve PM 220-25 MG q 6 hrs for pain; max daily 4000mg Lucas Cabezas* Start : 25-Dec-2017 End : 21-May-2019 Inactive Tamsulosin HCl 0.4 MG Lucas Cabezas* Start : 25-Nov-2017 End : 15-Jul-2018 Inactive Spironolactone 25 MG RayLucas* Start : 24-Sep-2017 Active Calcium Carbonate Antacid 500 MG PRN indigestion Lucas Cabezas* Start : 11-Sep-2017 Active Levaquin 500 MG Lucas Cabezas* Start : 11-Sep-2017 End : 17-Sep-2017 Inactive predniSONE 10 MG 4 tab for 3 days3 tabs for 3 days2 tabs for 3 days1 tab for 3 daysstop Raulito Richard Start : 11-Sep-2017 End : 23-Sep-2017 Inactive Spironolactone 25 MG RaulitoLucas* Start : 11-Sep-2017 End : 24-Sep-2017 Inactive Torsemide 20 MG RaulitoLucas* Start : 11-Sep-2017 End : 14-Jan-2018 Inactive Fluticasone Propionate 50 MCG/ACT RaulitoLucas* Start : 29-Aug-2017 Active Spironolactone 100 MG Lucas Cabezas* Start : 29-Aug-2017 End : 11-Sep-2017 Inactive Tylenol 8 Hour Arthritis Pain 650 MG PRN pain, max daily dose 3000mg Richard Cabezas Start : 29-Aug-2017 Active Finasteride 5 MG Yasmin Archer Start : 10-Jul-2017 Active Levothyroxine Sodium 75 MCG Yasmin Archer Start : 06-Jul-2017 Active Oxygen via NC Yasmin Archer Start : 06-Jul-2017 End : 01-Feb-2020 Inactive Fluticasone-Salmeterol 232-14 MCG/ACT Yasmin Archer Start : 02-Jul-2017 Active Torsemide 20 MG Yasmin Archer Start : 16-Jun-2017 End : 11-Sep-2017 Inactive predniSONE 10 MG take 20 mg po daily x 3 days then 10 mg po daily Yasmin Archer Start : 25-May-2017 End : 24-Jun-2017 Inactive Augmentin 875-125 MG Yasmin Archer Start : 25-May-2017 End : 02-Jul-2017 Inactive Spiriva HandiHaler 18 MCG Yasmin Archer Start : 26-Apr-2017 Active TraMADol HCl 50 MG prn 3 x day for pain Max daily dose=3 tablets Yasmin Archer Start : 26-Apr-2017 End : 15-Jul-2018 Inactive Tamsulosin HCl 0.4 MG Yasmin Archer Start : 26-Apr-2017 End : 25-Nov-2017 Inactive Spironolactone Yasmin Archer Start : 26-Apr-2017 End : 29-Aug-2017 Inactive Simethicone prn q 8hrs. for gas pain Max daily dose=3 tablets Yasmin Archer Start : 26-Apr-2017 Active Advair HFA 230-21 MCG/ACT Yasmin Archer Start : 26-Apr-2017 End : 02-Jul-2017 Inactive Saline Nasal [place] 0.65 % prn 4 x day for nasal dryness Max daily dose=4 sprays Yasmin Archer Start : 26-Apr-2017 Active Saline Nasal [place] 0.65 % prn 4 x day for nasal dryness MDD=4 Yasmin Archer Start : 26-Apr-2017 End : 02-May-2017 Inactive Ranitidine aYsmin Archer Start : 26-Apr-2017 End : 10-Jun-2019 Inactive Levothyroxine Yasmin Archer Start : 26-Apr-2017 End : 06-Jul-2017 Inactive Esomeprazole Magnesium 40 MG Yasmin Archer Start : 26-Apr-2017 Active Nitroglycerin 0.4 MG prn chest pain - one q 5min. x 3 -on third dose call ambulance & go to ER Yasmin Archer Start : 26-Apr-2017 Active Levothyroxine Yasmin Archer Start : 26-Apr-2017 End : 02-May-2017 Inactive Esomeprazole Magnesium 40 MG Yasmin Archer Start : 26-Apr-2017 End : 02-May-2017 Inactive Diclofenac Sodium 1 % prn 4 x day -apply to neck & upper back for pain Max daily dose=4 applications Yasmin Archer Start : 26-Apr-2017 End : 01-Feb-2020 Inactive Bisoprolol Fumarate 10 MG Yasmin Archer Start : 26-Apr-2017 End : 06-Jul-2017 Inactive Atorvastatin Calcium 80 MG Yasmin Archer Start : 26-Apr-2017 Active Aspirin Yasmin Archer Start : 26-Apr-2017 Active Alendronate Sodium 70 MG takes on Saturday Yasmin Archer Start : 26-Apr-2017 End : 01-Feb-2020 Inactive Atorvastatin Calcium 80 MG Yasmin Archer Start : 26-Apr-2017 End : 02-May-2017 Inactive Aspirin Yasmin Archer Start : 26-Apr-2017 End : 02-May-2017 Inactive Alendronate Sodium 70 MG takes on Saturday Yasmin Archer Start : 26-Apr-2017 End : 02-May-2017 Inactive Oxygen Yasmin Archer Start : 26-Apr-2017 End : 06-Jul-2017 Inactive Albuterol Sulfate (2.5 MG/3ML) 0.083% prn q 4hrs. for sob Max daily dose=6 treatments Yasmin Archer Start : 26-Apr-2017 Active Oxygen Yasmin Archer Start : 26-Apr-2017 End : 02-May-2017 Inactive Albuterol Sulfate (2.5 MG/3ML) 0.083% prn q 4hrs. for sob MDD=6 Yasmin Archer Start : 26-Apr-2017 End : 02-May-2017 Inactive levoFLOXacin 500 MG Yasmin Archer Start : 26-Apr-2017 End : 06-Jul-2017 Inactive Torsemide 50 mg Yasmin Archer Start : 26-Apr-2017 End : 16-Jun-2017 Inactive Allergies and Adverse Reactions Name Dates Details Latex - Shellfish -Sulfa Drugs (A llergy) Onset: 10-Jun-2019 Status: Active Results Date Description Value Details No Known Results Plan of Care Name Dates Details Instructions Diet:2 GM NA - 1500cc Fld. Re striction Ins truction Type: Nutrition education Payers * [employer] Medicare Complete
--- OUTSIDE RECORDS SUMMARY | 2020-05-18 16:02 | CCD | Continuity of Care Document ---
Author Author Davion LEON MD Organization Unknown Address [facility] [place] [address] Phone [phone] Care Team Providers Care Tool Distributor Name Role Phone Sharad Call MD AUTM [phone] Shukri Bonner MD AUTM [phone] Margarette Lenz-C AUTM [phone] Boston Maxwell MD AUTM Moe Archer MD AUTM [phone] Raul Grover DO AUTM [phone] Problems Active Problems Provider Date Coronary arteriosclerosis GAMAL FelicianoC Onset: 2010 Old myocardial infarction TORRI Feliciano-C Onset: 2010 Chronic combined systolic and diastolic heart failure Margarette Lenz PA-C Onset: 03/19/2016 Benign hypertensive heart disease with congestive card iac failure TORRI Feliciano-C Onset: 03/20/2011 Chronic ischemic heart disease Margarette Lenz PA-C Onset: 1 05/20/2010 Automatic implantable cardiac defibrillator in situ TORRI Shannon-C Onset: 03/20/2011 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, implant AND/OR graft GAMAL BernardC Onset: 03/19/2016 Electrocardiogram abnormal Margarette Lenz PA-C Onset: 03/20 Left bundle branch block Margarette Lenz PA-C Onset: 011 Mitral valve disorder TORRI Feliciano-C Onset: 03/20/2011 Aortic valve disorder Margarette Lenz [...] smoking 6-10 cigarettes daily Smoking Status Reviewed: 02/24/20 Patient is a current smoker, smokes every [...] down) 180tabs I49.01 Pierce Leon MD 02/24/2020 Tums 500mg Chewtabs 1-2 by mouth as [...] Boston Maxwell MD 07/14 Oxygen - Home 2-3 lpm Unknown 07/25/2017 Levothyroxine Sodium 75mcg Tablets [...] Capsules 1 puff Daily Hernandez Duran RN [facility] 7 History Medications Amiodarone HCL 200mg Tablets 1 by mouth four times a day Mirza Leon MD 02/05/2020 - 02/23/2020 Immunizations Description No Information Available Vital Signs Date Vital Result Comment 02/24/2020 1:07pm Weight 166.00 lb Home Weight 165lb Height 69 inches 5'9" BMI (Body Mass Index) 24.5 kg/m2 Heart Rate 88 /min Regular Respiratory Rate 16 /min BP Systolic Right Arm 126 mmHg sitting, regular c uff BP Diastolic Right Arm 68 mmHg sitting, regular cuff 01/26/2020 12:56pm Weight 165.00 lb Home Weight 165lb Height 69 inches 5'9" BMI (Body Mass Index) 24.4 kg/m2 Heart Rate 92 /min Regular Respiratory Rate 20 /min BP Systolic Right Arm 126 mmHg sitting, regular c uff BP Diastolic Right Arm 68 mmHg sitting, regular cuff BP Systolic Left Arm 124 mmHg sitting BP Diastolic Left Arm 68 mmHg sitting Results Test Acquired Date Facility Test Result H/L Range Note CBC without Differential 11/27/2019 [facility] - not inter faced (315)- - White Blood Count 10.2 High 4.0-10.0 Red Blood Count 3.78 Low 4.30-6.10 Platelets 231 150-450 Hemoglobin 10.8 Hematocrit 34.0 Basic Metabolic Profile 10/26/2019 [facility] [phone] Glucose, Fasting 92 mg/dL Normal 70-100 Blood Urea Nitrogen 26 mg/dL High 7-18 Creatinine For GFR 1.29 mg/dL Normal 0.70-1.30 Glomerular Filtration Rate 57.6 Normal >42 1 Sodium Level 135 mEq/L Low 136-145 Potassium Serum 5.3 mEq/L High 3.5-5.1 Chloride Level 98 mEq/L Normal 98-107 Carbon Dioxide Level 34 mEq/L High 21-32 Anion Gap 3 mEq/L Low 8-16 Calcium Level 9.0 mg/dL Normal 8.8-10.2 Laboratory test finding 10/26/2019 [facility] [phone] Magnesium Level 3.0 mg/dL High 1.8-2.4 1 Units are mL/min/1.73 m2 Chronic Kidney Disease Staging per NKF: Stage I & II GFR >=60 Normal to Mildly Decreased Stage III GFR 30-59 Moderately Decreased Stage IV GFR 15-29 Severely Decreased Stage V GFR <15 Very Little GFR Left ESRD GFR <15 on PROCESS CONTROLLER Procedures Date Code Description Status 01/26/2020 49544 ECG 12-Lead Completed 01/21/2020 79960 Remote Pacemaker/Cardio-Defibril lator Data Acquistion Completed 01/21/2020 37298 Remote Interrogate D evice Eval Cardioverter/Defibrillator-90 Days Completed 10/22/2019 86586 Icd Interrogation Any Leads Comp leted Medical Devices Description No Information Available Encounters Type Date Location Provider Dx Diagnosis Office Visit 02/24/2020 3:15p Main Office Margarette [...] Office Visit 10/22/2019 1:00p Main Office Margarette Lenz PA-C I50.4 2 Chronic combined systolic and diastolic hrt fail Z95.810 Presence of automatic (impla ntable) cardiac defibrillator Assessments Date Code Description Provider 02/24/2020 I49.01 Ventricular fibrillation Margarette Lenz PA-C 01/26/2020 I27.81 Cor pulmonale (chronic) Margarette bob PA-C 01/26/2020 I50.42 Chronic combined sys tolic (congestive) and diastolic (congestive) heart failure Margarette Lenz PA-C 01/26/2020 I11.0 Hypertensive heart disease with heart failure Margarette Lenz, [facility] 01/26/2020 I25.5 Ischemic cardiomyopathy Margarette bob, [facility] 01/26/2020 Z95.810 Presence of automatic (implantab le) cardiac defibrillator Margarette Lenz [facility] 01/26/2020 I49.01 Ventricular fibrillation Margarette Lenz [facility] 01/26/2020 I25.10 Atherosclerotic heart disease of [place] coronary artery with Margarette Lenz [facility] 01/26/2020 I25.2 Old myocardial infarction Margarette Lenz, [facility] 01/26/2020 R94.31 Abnormal electrocardiogram [ECG] [EKG] Margarette Lenz [facility] 01/26/2020 I44.7 Left bundle-branch block, unspec ified Margarette Lenz, [facility] 01/26/2020 I34.0 Nonrheumatic mitral (valve) insu fficiency Margarette Lenz [facility] 01/26/2020 I35.8 Other nonrheumatic aortic valve disorders Margarette Lenz, [facility] 01/26/2020 E78.00 Pure hypercholesterolemia, unspe cified Margarette Lenz, [facility] 01/26/2020 F17.218 Nicotine dependence, cigarettes, with other nicotine-induced Margarette Lenz, [facility] 01/21/2020 Z95.810 Presence of automatic (implantab le) [...] systolic (conge stive) and diastolic (conges Margarette Lenz PA-C 10/22/2019 Z95.810 Presence of automatic (implantab le) cardiac defibrillator Margarette Lenz PA-C Plan of Treatment Future Appointment(s):* 03/10/2020 3:00 pm - Margarette Lenz PA-C at Main Office * 05/02/2020 12:45 pm - Margarette Lenz PA-C at Main Office * 04/21/2020 7:00 am - Pacer/Icd Clinic at Main Office 02/24/2020 - Margarette Lenz PA-C* I49.01 Ventricular fibrillation* New Medication:* Amiodarone HCL 200 mg - 1 by mouth four times a day (dose will be titrated down) * Recommendations:* Take amiodarone 200 mg one pill four times a day (this dose will be adjusted down at your next appointment). * All * Follow up:* 2 week CV/ICD check Functional Status Functional Condition Comment Date Status Independent with all ADL's Activ e Mental Status Description No Information Available Referrals Description No Information Available
--- OUTSIDE RECORDS SUMMARY | 2020-05-18 16:02 | CCD | Continuity of Care Document ---
Author Author Davion IVY PA-C Organization Unknown Address [id number] [place] [address], [place] [address] Phone [phone] Care Team Providers Care Conduit Reamer Operator Name Role Phone Sharad Call MD AUTM [phone] Shukri Bonner MD AUTM [phone] Margarette Ivy PA-C AUTM [phone] Boston Maxwell MD AUTM [phone] Moe Archer MD AUTM [phone] Raul Grover DO AUTM [phone] Problems Active Problems Provider Date Coronary arteriosclerosis Margarette Ivy PA-C Onset: 2010 Old myocardial infarction Margarette Ivy PA-C Onset: 2010 Chronic combined systolic and diastolic heart failure GAMAL FelicianoC Onset: 03/19/2016 Benign hypertensive heart disease with congestive card iac failure Margarette Ivy PA-C Onset: 03/20/2011 Chronic ischemic heart disease Margarette Ivy PA-C Onset: 1 05/20/2010 Automatic implantable cardiac defibrillator in situ Margarette bob PA-C Onset: 03/20/2011 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, implant AND/OR graft Margarette buchanan PA-C Onset: 03/19/2016 Electrocardiogram abnormal Margarette Ivy PA-C Onset: 03/20 Left bundle branch block GAMAL FelicianoC Onset: 011 Mitral valve disorder Margarette Ivy PA-C Onset: 03/20/2011 Aortic valve disorder GAMAL FelicianoC Onset: 06/09/2015 Pure hypercholesterolemia GAMAL FelicianoC Onset: 2013 Cigarette smoker Margarette Ivy PA-C [...] Capsules 1 puff Daily Hernandez Duran RN [employer] 7 History Medications Amiodarone HCL 200mg Tablets [...] 10.8 Hematocrit 34.0 Basic Metabolic Profile 10/26/2019 [facility] [phone] Glucose, Fasting 92 mg/dL Normal 70-100 Blood [...] mg/dL Normal 8.8-10.2 Laboratory test finding 10/26/2019 [facility] [phone] Magnesium Level 3.0 mg/dL High 1.8-2.4 1 Units are mL/min/1.73 m2 Chronic Kidney Disease Staging per NKF: Stage I & II GFR >=60 Normal to Mildly Decreased Stage III GFR 30-59 Moderately Decreased Stage IV GFR 15-29 Severely Decreased Stage V GFR <15 Very Little GFR Left ESRD GFR <15 on DRESS CUTTER Procedures Date Code Description Status 03/10/2020 61860 ECG 12-Lead Completed 01/26/2020 32529 ECG 12-Lead Completed 01/21/2020 12177 Remote Pacemaker/Cardio-Defibril lator Data Acquistion Completed 01/21/2020 02375 Remote Interrogate D evice Eval Cardioverter/Defibrillator-90 Days Completed 10/22/2019 64472 Icd Interrogation Any Leads Comp leted Medical [...] 02/24/2020 I49.01 Ventricular fibrillation Margarette Ivy PA-C 01/26/2020 I27.81 Cor pulmonale (chronic) Margarette bob PA-C 01/26/2020 I50.42 Chronic combined sys tolic (congestive) and diastolic (congestive) heart failure Margarette Ivy, [facility] 01/26/2020 I11.0 Hypertensive heart disease with heart failure Margarette Ivy, [facility] 01/26/2020 I25.5 Ischemic cardiomyopathy Margarette bob, [facility] 01/26/2020 Z95.810 Presence of automatic (implantab le) cardiac defibrillator Margarette Ivy, [facility] 01/26/2020 I49.01 Ventricular fibrillation Margarette Ivy, [facility] 01/26/2020 I25.10 Atherosclerotic heart disease of [place] coronary artery with Margarette Ivy, [facility] 01/26/2020 I25.2 Old myocardial infarction Margarette Ivy, [facility] 01/26/2020 R94.31 Abnormal electrocardiogram [ECG] [EKG] Margarette Ivy, [facility] 01/26/2020 I44.7 Left bundle-branch block, unspec ified Margarette Ivy, [facility] 01/26/2020 I34.0 Nonrheumatic mitral (valve) insu fficiency Margarette Ivy, [facility] 01/26/2020 I35.8 Other nonrheumatic aortic valve disorders Margarette Ivy, [facility] 01/26/2020 E78.00 Pure hypercholesterolemia, unspe cified Margarette Ivy, [facility] 01/26/2020 F17.218 Nicotine dependence, cigarettes, with other nicotine-induced Margarette Ivy, [facility] 01/21/2020 Z95.810 Presence of automatic (implantab le) [...] Ivy PA-C Plan of Treatment Future Appointment(s):* 05/02/2020 12:45 pm - Margarette Ivy PA-C at Main Office * 04/21/2020 7:00 am - Pacer/Icd Clinic at Main Office 03/10/2020 - Margarette Ivy PA-C* I49.01 Ventricular fibrillation* Recommendations:* 1. Decrease amiodarone to 200 mg one pill three times a day. 2. On 04/09/20 reduce amiodarone to 200 mg twice a day. * Z01.810 Encounter for preprocedural cardiovascular examination Functional Status Functional Condition Comment Date Status Independent with all ADL's Activ e Mental Status Description No Information Available Referrals Description No Information Available
--- OUTSIDE RECORDS SUMMARY | 2020-05-18 16:02 | CCD | Continuity of Care Document ---
Author Author Davion IVY PA-C Organization Unknown Address [address] [place] [address], [place] [address] Phone [phone] Care Team Providers Care Faculty Research Assistant Name Role Phone Sharad Call MD AUTM [phone] Shukri Bonner MD AUTM [phone] Margarette Ivy PA-C AUTM [phone] [place] Maxwell MD AUTM Moe Archer MD AUTM [phone] Raul Grover DO AUTM [phone] Problems Active Problems Provider Date Coronary arteriosclerosis [...] Capsules 1 puff Daily Hernandez Duran RN PLATE [employer]TER 7 History Medications Amiodarone HCL 200mg Tablets [...] 10.8 Hematocrit 34.0 Basic Metabolic Profile 10/26/2019 [facility] [phone] Glucose, Fasting 92 mg/dL Normal 70-100 Blood [...] mg/dL Normal 8.8-10.2 Laboratory test finding 10/26/2019 [facility] [phone] Magnesium Level 3.0 mg/dL High 1.8-2.4 1 Units are mL/min/1.73 m2 Chronic Kidney Disease Staging per NKF: Stage I & II GFR >=60 Normal to Mildly Decreased Stage III GFR 30-59 Moderately Decreased Stage IV GFR 15-29 Severely Decreased Stage V GFR <15 Very Little GFR Left ESRD GFR <15 on OPERATIONS PROFESSIONAL Procedures Date Code Description Status 03/10/2020 80967 ECG 12-Lead Completed 01/26/2020 87939 ECG 12-Lead Completed 01/21/2020 94747 Remote Pacemaker/Cardio-Defibril lator Data Acquistion Completed 01/21/2020 45240 Remote Interrogate D evice Eval Cardioverter/Defibrillator-90 Days Completed 10/22/2019 42206 Icd Interrogation Any Leads Comp leted Medical [...] Z01.810 Encounter for preprocedural card iovascular examination TORRI Feliciano-C 02/24/2020 I49.01 Ventricular fibrillation Margarette Ivy, PA-C 01/26/2020 I27.81 Cor pulmonale (chronic) Margarette bob, PA-C 01/26/2020 I50.42 Chronic combined sys tolic (congestive) and diastolic (congestive) heart failure Margarette Ivy, PA-C 01/26/2020 I11.0 Hypertensive heart disease with heart failure Margarette Ivy, PA-C 01/26/2020 I25.5 Ischemic cardiomyopathy Margarette bob, PA-C 01/26/2020 Z95.810 Presence of automatic (implantab le) cardiac defibrillator Margarette Ivy, PR-C 01/26/2020 I49.01 Ventricular fibrillation Margarette Ivy, PR-C 01/26/2020 I25.10 Atherosclerotic heart disease of [place] coronary artery with Margarette Ivy, PA-C 01/26/2020 I25.2 Old myocardial infarction Margarette Ivy, PR-C 01/26/2020 R94.31 Abnormal electrocardiogram [ECG] [EKG] Margarette Ivy, PR-C 01/26/2020 I44.7 Left bundle-branch block, unspec ified Margarette Ivy, PA-C 01/26/2020 I34.0 Nonrheumatic mitral (valve) insu fficiency Margarette Ivy, PR-C 01/26/2020 I35.8 Other nonrheumatic aortic valve disorders Margarette Ivy, PA-C 01/26/2020 E78.00 Pure hypercholesterolemia, unspe cified Margarette Ivy, PA-C 01/26/2020 F17.218 Nicotine dependence, cigarettes, with other nicotine-induced Margarette Ivy, PA-C 01/21/2020 Z95.810 Presence of automatic (implantab le) [...] Leon MD 10/28/2019 E78.00 Pure hypercholesterolemia, unspe cinellie Leon MD 10/28/2019 F17.218 Nicotine dependence, cigarettes, [...] to twice a day (on 04/09/20) * Recommendations:* 1. Decrease amiodarone to 200 mg one pill three times a day. 2. On 04/09/20 reduce amiodarone to 200 mg twice a day. * Z01.810 Encounter for preprocedural cardiovascular examination Functional Status Functional Condition Comment Date Status Independent with all ADL's Activ e Mental Status Description No Information Available Referrals Description No Information Available
--- OUTSIDE RECORDS SUMMARY | 2020-05-18 16:04 | CCD ---
Author Author [facility] Organization [facility] Address Unknown Phone Unavailable Care Team Providers Care Melter Loader Name Role Phone Malgorzata Lenz Unavailable Unavailable Symenow, Malgorzata Pfeiffer PA Unavailable Unavailable SymenoMalgorzata puente PA Unavailable Unavailable SymenoMalgorzata puente PA Unavailable Unavailable SymenoMalgorzata puente PA Unavailable Unavailable SymenoMalgorzata puente PA Unavailable Unavailable Symenocindi, Malgorzata Pfeiffer PA Unavailable Unavailable SymenoMalgorzata puente PA Unavailable Unavailable Symenocindi, Malgorzata Pfeiffer PA Unavailable Unavailable Malgorzata Lenz PA Unavailable Unavailable Malgorzata Lenz PA Unavailable Unavailable Yoanna, Malgorzata Pfeiffer PA Unavailable Unavailable Yoanna, Malgorzata Pfeiffer PA Unavailable Unavailable Nikkieenocindi, Malgorzata Pfeiffer PA Unavailable Unavailable SymenoMalgorzata puente PA Unavailable Unavailable Symenocindi, Malgorzata Pfeiffer PA Unavailable Unavailable Symenow, Malgorzata Margarette PA Unavailable Unavailable Symenow, Malgorzata Margarette PA Unavailable Unavailable Symenow, Malgorzata Margarette PA Unavailable Unavailable Symenow, Malgorzata Margarette PA Unavailable Unavailable Symenow, Malgorzata Margarette PA Unavailable Unavailable Symenow, Malgorzata Margarette PA Unavailable Unavailable Symenow, Malgorzata Margarette PA Unavailable Unavailable Symenow, Malgorzata Margarette PA Unavailable Unavailable Symenow, Malgorzata Margarette PA Unavailable Unavailable Symenow, Malgorzata Margarette PA Unavailable Unavailable Symenow, Malgorzata Margarette PA Unavailable Unavailable Symenow, Malgorzata Margarette PA Unavailable Unavailable Symenow, Malgorzata Margarette PA Unavailable Unavailable Symenow, Malgorzata Margarette PA Unavailable Unavailable Symenow, Malgorzata Margarette PA Unavailable Unavailable Symenow, Malgorzata Margarette PA Unavailable Unavailable Symenow, Malgorzata Margarette PA Unavailable Unavailable Symenow, Malgorzata Margarette PA Unavailable Unavailable Symenow, Malgorzata Margarette PA Unavailable Unavailable Symenow, Malgorzata Margarette PA Unavailable Unavailable CALOS, K CARLOS MISTRY Unavailable Unavailable CALOS, K CARLOS MD Unavailable Unavailable CALOS, K CARLOS MISTRY Unavailable Unavailable CALOS, K CARLOS MISTRY Unavailable Unavailable CALOS, K CARLOS MISTRY Unavailable Unavailable CALOS, K CARLOS MISTRY Unavailable Unavailable CALOS, K CARLOS MISTRY Unavailable Unavailable CALOS, K CARLOS MD Unavailable Unavailable CALOS, K CRALOS MD Unavailable Unavailable CALOS, K CARLOS MD Unavailable Unavailable CALOS, K CARLOS MD Unavailable Unavailable CALOS, K CARLOS MD Unavailable Unavailable CALOS, K CARLOS MD Unavailable Unavailable CALOS, K CARLOS MD Unavailable Unavailable CALOS, K CARLOS MD Unavailable Unavailable CALOS, K CARLOS MD Unavailable Unavailable CALOS, K CARLOS MD Unavailable Unavailable CALOS, K CARLOS MD Unavailable Unavailable CALOS, K CARLOS MD Unavailable Unavailable CALOS, K CARLOS MD Unavailable Unavailable CALOS, K CARLOS MD Unavailable Unavailable CALOS, K CARLOS MD Unavailable Unavailable CALOS, K CARLOS MD Unavailable Unavailable CALOS, K CARLOS MD Unavailable Unavailable CALOS, K CARLOS MD Unavailable Unavailable CALOS, K CARLOS MD Unavailable Unavailable CALOS, K CARLOS MD Unavailable Unavailable CALOS, K CARLOS MD Unavailable Unavailable CALOS, K CARLOS MD Unavailable Unavailable CALOS, K CARLOS MD Unavailable Unavailable CALOS, K CARLOS MD Unavailable Unavailable CALOS, K CARLOS MD Unavailable Unavailable CALOS, K CARLOS MD Unavailable Unavailable CALOS, K CARLOS MD Unavailable Unavailable CALOS, K CARLOS MD Unavailable Unavailable CALOS, K CARLOS MD Unavailable Unavailable CALOS, Watson CARLOS MD Unavailable Unavailable CALOS, K CARLOS MD Unavailable Unavailable CALOS, K CARLOS MD Unavailable Unavailable CALOS, K CARLOS MD Unavailable Unavailable CALOS, K CARLOS MD Unavailable Unavailable CALOS, K CARLOS MD Unavailable Unavailable CALOS, K CARLOS MD Unavailable Unavailable Kendrick, M Barratt PA Unavailable Unavailable Kendrick, M Barratt PA Unavailable Unavailable Kendrick, M Barratt PA Unavailable Unavailable Kendrick, M Barratt PA Unavailable Unavailable Kendrick, M Barratt PA Unavailable Unavailable Kendrick, M Barratt PA Unavailable Unavailable Kendrick, M Barratt PA Unavailable Unavailable Kendrick, M Barratt PA Unavailable Unavailable Kendrick, M Barratt PA Unavailable Unavailable Kendrick, M Barratt PA Unavailable Unavailable Kendrick, M Barratt PA Unavailable Unavailable Kendrick, M Barratt PA Unavailable Unavailable Kendrick, M Barratt PA Unavailable Unavailable Kendrick, M Barratt PA Unavailable Unavailable Kendrick, M Barratt PA Unavailable Unavailable Kendrick, M Barratt PA Unavailable Unavailable Kendrick, M Barratt PA Unavailable Unavailable Kendrick, M Barratt PA Unavailable Unavailable Ekndrick, M Barratt PA Unavailable Unavailable Kendrick, M Barratt PA Unavailable Unavailable Kendrick, M Barratt PA Unavailable Unavailable Kendrick, M Barratt PA Unavailable Unavailable Kendrick, M Barratt PA Unavailable Unavailable Kendrick, M Barratt PA Unavailable Unavailable Kendrick, M Barratt PA Unavailable Unavailable Kendrick, M Barratt PA Unavailable Unavailable Tika NELSON MD Unavailable Unavailable Tika NELSON MD Unavailable Unavailable Tika NELSON MD Unavailable Unavailable Tika NELSON MD Unavailable Unavailable Tika NELSON MD Unavailable Unavailable Tika NELSON MD Unavailable Unavailable Tika NELSON MD Unavailable Unavailable Tika NELSON MD Unavailable Unavailable Tika NELSON MD Unavailable Unavailable Tika NELSON MD Unavailable Unavailable NELSONTika Esquivel MD Unavailable Unavailable NELSONTika Esquivel MD Unavailable Unavailable NELSONTika MD Unavailable Unavailable NELSONTika MD Unavailable Unavailable NELSONTika Esquivel MD Unavailable Unavailable NELSONTika MD Unavailable Unavailable NELSONTika MD Unavailable Unavailable NELSONTika MD Unavailable Unavailable NELSONTika MD Unavailable Unavailable NELSONTika Esquivel MD Unavailable Unavailable NELSONTika MD Unavailable Unavailable NELSONTika MD Unavailable Unavailable NELSONTika Esquivel MD Unavailable Unavailable NELSONTika MD Unavailable Unavailable NELSONTika Esquivel MD Unavailable Unavailable NELSONTika Esquivel MD Unavailable Unavailable NELSONTika MD Unavailable Unavailable NELSONTika Esquivel MD Unavailable Unavailable NELSON E SOLOMON MISTRY Unavailable Unavailable NELSON, E SOLOMON MISTRY Unavailable Unavailable NELSONTika Esquivel MD Unavailable Unavailable NELSON, E SOLOMON MISTRY Unavailable Unavailable NELSONTika Esquivel MD Unavailable Unavailable NELSONTika Esquivel MD Unavailable Unavailable NELSONTika Esquivel MD Unavailable Unavailable NELSONTika Esquivel MD Unavailable Unavailable NELSONTika Esquivel MD Unavailable Unavailable NELSONTika Esquivel MD Unavailable Unavailable NELSONTika Esquivel MD Unavailable Unavailable NELSONTika Esquivel MD Unavailable Unavailable NELSONTika Esquivel MD Unavailable Unavailable NELSONTika Esquivel MD Unavailable Unavailable Tika NELSON MD Unavailable Unavailable NELSONTika Esquivel MD Unavailable Unavailable NELSONTika Esquivel MD Unavailable Unavailable Tika NELSON MD Unavailable Unavailable NELSONTika Esquivel MD Unavailable Unavailable Tika NELSON MD Unavailable Unavailable NELSONTika Esquivel MD Unavailable Unavailable NELSONTika Esquivel MD Unavailable Unavailable Tika NELSON MD Unavailable Unavailable NELSONTika Esquivel MD Unavailable Unavailable Tika NELSON MD Unavailable Unavailable NELSONTika Esquivel MD Unavailable Unavailable NELSONTika Esquivel MD Unavailable Unavailable Tika NELSON MD Unavailable Unavailable NELSONTika Esquivel MD Unavailable Unavailable CALOS, K CARLOS MISTRY Unavailable Unavailable CALOS, K CARLOS MISTRY Unavailable Unavailable CALOS, K CARLOS MISTRY Unavailable Unavailable CALOS, K CARLOS MISTRY Unavailable Unavailable CALOS, K CARLOS MISTRY Unavailable Unavailable CALOS, K CARLOS MISTRY Unavailable Unavailable CALOS, K CARLOS MISTRY Unavailable Unavailable CALOS, K CARLOS MISTRY Unavailable Unavailable CALOS, K CARLOS MISTRY Unavailable Unavailable CALOS, K CARLOS MISTRY Unavailable Unavailable CALOS, K CARLOS MISTRY Unavailable Unavailable CALOS, K CARLOS MISTRY Unavailable Unavailable CALOS, K CARLOS MD Unavailable Unavailable CALOS, K CARLOS MD Unavailable Unavailable CALOS, K CARLOS MD Unavailable Unavailable CALOS, K CARLOS MD Unavailable Unavailable CALOS, K CARLOS MD Unavailable Unavailable CALOS, K CARLOS MD Unavailable Unavailable CALOS, K CARLOS MD Unavailable Unavailable CALOS, K CARLOS MD Unavailable Unavailable CALOS, K CARLOS MD Unavailable Unavailable CALOS, K CARLOS MD Unavailable Unavailable CALOS, K CARLOS MD Unavailable Unavailable CALOS, K CARLOS MD Unavailable Unavailable CALOS, K CARLOS MD Unavailable Unavailable CALOS, K CARLOS MD Unavailable Unavailable CALOS, K CARLOS MD Unavailable Unavailable CALOS, K CARLOS MD Unavailable Unavailable CALOS, K CARLOS MD Unavailable Unavailable CALOS, K CARLOS MD Unavailable Unavailable CALOS, K CARLOS MD Unavailable Unavailable CALOS, K CARLOS MD Unavailable Unavailable CALOS, K CARLOS MD Unavailable Unavailable CALOS, K CARLOS MD Unavailable Unavailable CALOS, K CARLOS MD Unavailable Unavailable CALOS, K CARLOS MD Unavailable Unavailable CALOS, K CARLOS MD Unavailable Unavailable CALOS, K CARLOS MD Unavailable Unavailable CALOS, K CARLOS MD Unavailable Unavailable CALOS, K CARLOS MD Unavailable Unavailable CALOS, K CARLOS MD Unavailable Unavailable CALOS, K CARLOS MD Unavailable Unavailable CALOS, K CARLOS MD Unavailable Unavailable Ana Paula, Noaman MD Unavailable Unavailable Ana Paula, Nonayeli MD Unavailable Unavailable Ana Paula, Nonayeli MD Unavailable Unavailable Ana Paula, Nonayeli MD Unavailable Unavailable Ana Paula, Nonayeli MD Unavailable Unavailable Ana Paula, Nonayeli MD Unavailable Unavailable Ana Paula, Nonayeli MD Unavailable Unavailable Ana Paula, Nonayeli MD Unavailable Unavailable Ana Paula, Nonayeli MD Unavailable Unavailable Ana Paula, Nonayeli MD Unavailable Unavailable Ana Paula, Nonayeli MD Unavailable Unavailable Ana Paula, Nonayeli MD Unavailable Unavailable Ana Paula, Nonayeli MD Unavailable Unavailable Ana Paula, Nonayeli MD Unavailable Unavailable Ana Paula, Nonayeli MD Unavailable Unavailable Ana Paula, Nonayeli MD Unavailable Unavailable Ana Paula, Noaman MD Unavailable Unavailable Ana Paula, Noaman MD Unavailable Unavailable Ana Paula, Noaman MD Unavailable Unavailable Ana Paula, Noaman MD Unavailable Unavailable Ana Paula, Nonayeli MD Unavailable Unavailable Ana Paula, Nonayeli MD Unavailable Unavailable Ana Paula, Nonayeli MD Unavailable Unavailable Ana Paula, Nonayeli MD Unavailable Unavailable Ana Paula, Nonayeli MD Unavailable Unavailable Ana Paula, Noaman MD Unavailable Unavailable Yuliet Goss MD Unavailable Unavailable Yuliet oGss MD Unavailable Unavailable Yuliet Goss MD Unavailable Unavailable Symenow, Malgorzata Margarette PA Unavailable Unavailable Symenow, Malgorzata Margarette PA Unavailable Unavailable Symenow, Malgorzata Margarette PA Unavailable Unavailable Symenow, Malgorzata Margarette PA Unavailable Unavailable Symenow, Malgorzata Margarette PA Unavailable Unavailable Symenow, Malgorzata Margarette PA Unavailable Unavailable Symenow, Malgorzata Margarette PA Unavailable Unavailable Symenow, Malgorzata Margarette PA Unavailable Unavailable Symenow, Malgorzata Margarette PA Unavailable Unavailable Symenow, Malgorzata Margarette PA Unavailable Unavailable Symenow, Malgorzata Margarette PA Unavailable Unavailable Symenow, Malgorzata Margarette PA Unavailable Unavailable Symenow, Malgorzata Margarette PA Unavailable Unavailable Symenow, Malgorzata Margarette PA Unavailable Unavailable Symenow, Malgorzata Margarette PA Unavailable Unavailable Symenow, Malgorzata Margarette PA Unavailable Unavailable Symenow, Malgorzata Margarette PA Unavailable Unavailable Symenow, Malgorzata Margarette PA Unavailable Unavailable Symenow, Malgorzata Margarette PA Unavailable Unavailable Symenow, Malgorzata Margarette PA Unavailable Unavailable Symenow, Malgorzata Margarette PA Unavailable Unavailable Symenow, Malgorzata Margarette PA Unavailable Unavailable Symenow, Malgorzata Margarette PA Unavailable Unavailable Symenow, Malgorzata Margarette PA Unavailable Unavailable Symenow, Malgorzata Margarette PA Unavailable Unavailable Symenow, Malgorzata Margarette PA Unavailable Unavailable Symenow, Malgorzata Margarette PA Unavailable Unavailable Symenow, Malgorzata Margarette PA Unavailable Unavailable Symenow, Malgorzata Margarette PA Unavailable Unavailable Symenow, Malgorzata Margarette PA Unavailable Unavailable Symenow, Malgorzata Margarette PA Unavailable Unavailable Symenow, Malgorzata Margarette PA Unavailable Unavailable Symenow, Malgorzata Margarette PA Unavailable Unavailable Symenow, Malgorzata Margarette PA Unavailable Unavailable Symenow, Malgorzata Margarette PA Unavailable Unavailable Symenow, Malgorzata Margarette PA Unavailable Unavailable Tai, L Octavio MISTRY Unavailable Unavailable Tai, L Octavio MD Unavailable Unavailable Tai, L Octavio MD Unavailable Unavailable Tai, L Octavio MD Unavailable Unavailable Tai, L Octavio MD Unavailable Unavailable Tai, L Octavio MD Unavailable Unavailable Tai, L Octavio MD Unavailable Unavailable Tai, L Octavio MD Unavailable Unavailable Tai, L Octavio MD Unavailable Unavailable Tai, L Octavio MD Unavailable Unavailable Tai, L Octavio MD Unavailable Unavailable Tai, L Octavio MD Unavailable Unavailable Tai, L Octavio MD Unavailable Unavailable Tai, L Octavio MD Unavailable Unavailable Tai, L Octavio MD Unavailable Unavailable Tai, L Octavio MD Unavailable Unavailable Tai, L Octavio MD Unavailable Unavailable Tai, L Octavio MD Unavailable Unavailable Tai, L Octavio MD Unavailable Unavailable Tai, L Octavio MD Unavailable Unavailable Tai, L Octavio MD Unavailable Unavailable Tai, L Octavio MD Unavailable Unavailable Tai, L Octavio MD Unavailable Unavailable Tai, L Octavio MD Unavailable Unavailable Tai, L Octavio MD Unavailable Unavailable Tai, L Octavio MD Unavailable Unavailable Tai, L Octavio MD Unavailable Unavailable Tai, L Octavio MD Unavailable Unavailable Tai, L Octavio MD Unavailable Unavailable Tai, L Octavio MD Unavailable Unavailable Tai, L Octavio MD Unavailable Unavailable Tai, L Octavio MD Unavailable Unavailable Tai, L Octavio MD Unavailable Unavailable Tai, L Octavio MD Unavailable Unavailable Tai, L Octavio MD Unavailable Unavailable Tai, L Octavio MD Unavailable Unavailable Tai, L Octavio MD Unavailable Unavailable Tai, L Octavio MD Unavailable Unavailable Tai, L Octavio MD Unavailable Unavailable Tai, L Octavio MD Unavailable Unavailable Tai, L Octavio MD Unavailable Unavailable Tai, L Octavio MISTRY Unavailable Unavailable Tai, L Octavio MISTRY Unavailable Unavailable Tai, L Octavio MISTRY Unavailable Unavailable Tai, L Octavio MISTRY Unavailable Unavailable Tai, L Octavio MISTRY Unavailable Unavailable Tai, L Octavio MD Unavailable Unavailable NO, PCP Unavailable Unavailable Re-disclosure Warning The records that you are about to access may contain information from federally-assisted alcohol or drug abuse programs. If such information is present, then the following federally mandated warning applies: This information has been disclosed to you from records protected by federal confidentiality rules (42 CFR part 2). The federal rules prohibit you from making any further disclosure of this information unless further disclosure is expressly permitted by the written consent of the person to whom it pertains or as otherwise permitted by 42 CFR part 2. A general authorization for the release of medical or other information is NOT sufficient for this purpose. The Federal rules restrict any use of the information to criminally investigate or prosecute any alcohol or drug abuse patient.The records that you are about to access may contain highly sensitive health information, the redisclosure of which is protected by Article 27-F of the [facility] Public Health law. If you continue you may have access to information: Regarding HIV / AIDS; Provided by facilities licensed or operated by the [facility] Office of Mental Health; or Provided by the [facility] Office for People With Developmental Disabilities. If such information is present, then the following [facility] mandated warning applies: This information has been disclosed to you from confidential records which are protected by state law. State law prohibits you from making any further disclosure of this information without the specific written consent of the person to whom it pertains, or as otherwise permitted by law. Any unauthorized further disclosure in violation of state law may result in a fine or fci sentence or both. A general authorization for the release of medical or other information is NOT sufficient authorization for further disc losure. Allergies and Adverse Reactions Type Description Substance Reaction Status Data Source(s ) ENVIRONMENTAL LATEX LATEX [facility] CLASS SULFA (sulfonamide) SULFA (sulfonamide) [facility] Drug allergy Latex Gloves Drug allergy rash, hives head to toe Activ e eCW1 ([facility]) Drug allergy Nicoderm CQ Nicotine Rash Active eCW1 ([facility]) Drug allergy Percocet Acetaminophen / Oxycodone hallucinations Act jarod eCW1 ([facility]) Vicodin Vicodin Vicodin altered mental status Active eC W1 ([facility]) Shellfish Shellfish Shellfish Rash/itching Active eCW1 ([facility]) Latex - Shellfish -Sulfa Drugs Latex - Shellfish -Sulfa Drug s Latex - Shellfish -Sulfa Drugs active NETSMART ([facility]) Vicodin Vicodin Acetaminophen 300 MG / Hydrocodone Bitartrate 5 MG Oral Tablet [Vicodin] altered mental status Active eCW1 ([facility]) Shellfish Shellfish Shellfish Rash/itching Active eCW1 ([facility]) Family History Family Member Name Family Member Gender Family Member Status Date o f Status Description Data Source(s) Unknown Unknown Problem MEDENT ([facility]) Unknown Unknown Problem MEDENT ([facility]) Encounters Encounter Providers Location Date Indications Data Source(s ) Office Visit Attender: Arpan WILD Physical Therapy 02:30:00 PM EST MEDENT ([facility]) Unknown [address] [id number] 04/05/2020 12:00:00 AM EST eCW1 ([facility]) Outpatient Attender: Octavio Tai MD Physical Therapy 03/27/2020 0 8:35:00 AM EST MEDENT ([facility]) Unknown [address] [id number] 03/24/2020 12:00:00 AM EST eCW1 ([facility]) Office Visit, Est Pt., Level 3 [address] [place] [address] 03/22/2020 12:00:00 AM EST eCW1 ([facility]) Unknown [address] [facility] [id number] 03/15/2020 12:00:00 AM EST eCW1 ([facility]) Outpatient Attender: CARLOS CALDERON MD 03/11/2020 07:11:51 PM EST [facility] [place] [facility] ( in Healthcare facility) Attender: SABINA CALDERON MDAdmitter: CARLOS CALDERON MD 03/11/2020 01:58:00 PM EST - 03/13/2020 02:37:00 PM EST [facility] Outpatient Attender: CARLOS CALDERON MDAdmitter: CARLOS CALDERON MD 03/11/2020 01:58:00 PM EST - 03/13/2020 02:37:00 PM EST RETAINED LENS LEFT EYE [facility] RETAINED LENS LEFT EYE Patient discharged. Outpatient Attender: CARLOS CALDERON MD 03/11/2020 01:58:00 PM [facility] Outpatient Attender: Yuliet Goss MDConsultant: PCP KINJAL 03/11/2020 10:42:44 AM EST - 03/14/2020 01:39:00 PM EST [facility] Patient discharged. Outpatient Attender: Margarette WILD Main Office 03/10/2020 02:00:00 PM EST MEDENT ([facility]) Unknown [address] [facility] [place] [address] 03/10/2020 12:00:00 AM EST [facility]CW1 [facility] Outpatient Attender: Yuliet Goss MDConsultant: PCP NO 03/09/2020 08:30:00 AM EST - 03/09/2020 11:10:00 AM EST [facility] Patient discharged. Unknown [address] [facility] [place] [address] 03/09/2020 12:00:00 AM EST eCW1 ([facility]) Unknown [address] [facility] [address] [place] [address] 03/07/2020 12:00:00 AM EST eCW1 ([facility]) Outpatient Attender: Yuliet Goss MDConsultant: PCP NO 03/03/2020 10:57:11 AM EDT - 03/08/2020 12:00:00 PM EST [facility] Patient discharged. Outpatient [address] [facility] [place] [address] 03/03/2020 12:00:00 AM EDT eCW1 ([facility]) Unknown [address] [facility] [place] [address] 03/03/2020 12:00:00 AM EDT eCW1 ([facility]) Outpatient Attender: Margarette WILD Main Office 02/24/2020 03:15:00 PM EDT MEDENT ([facility]) Unknown [address] [facility] [place] [address] 02/05/2020 12:00:00 AM EDT eCW1 ([facility] Office Visit Attender: SOLOMON NELSON MD Main Office 02/04/2020 12:27:0 0 PM EDT MEDENT ([facility]) Outpatient Attender: Margarette WILD Main Office 01/26/2020 01:30:00 PM EDT MEDENT ([facility]) Office Visit Attender: SOLOMON NELSON MD Main Office 01/05/2020 10:20:0 0 AM EDT MEDENT ([facility]) Outpatient Attender: Yuliet Goss MDConsultant: PCP NO 12/15/2019 12:47:18 PM EDT - 12/18/2019 02:12:00 PM EDT [facility] Patient discharged. Outpatient Attender: Yuliet Goss MDConsultant: PCP NO 12/14/2019 08:16:02 AM EDT - 12/16/2019 02:13:00 PM EDT [facility] Patient discharged. Office Visit Attender: SOLOMON NELSON MD Main Office 12/03/2019 02:04:0 0 PM EDT MEDENT ([facility]) Office Visit Attender: SOLOMON NELSON MD Main Office 10/28/2019 12:44:0 0 PM EDT MEDENT ([facility]) [facility] [address] [facility] [facility] [place] [address] 10/26/2019 12:00:00 AM EDT eCW1 ([facility]) Outpatient Attender: Margarette WILD Main Office 10/22/2019 01:00:00 PM EDT MEDENT ([facility]) Outpatient Referrer: Margarette WILD 10/09/2019 05:13:00 A M EDT [facility] Unknown [address] [facility] [place] [address] 10/08/2019 12:00:00 AM EDT eCW1 ([facility]) Unknown [address] [facility] [place] [address] 10/08/2019 12:00:00 AM EDT eCW1 ([facility]) [facility] [address] [facility] [place] [address] 10/01/2019 12:00:00 AM EDT eCW1 ([facility]) [facility] [address] [facility] [place] [address] 09/03/2019 12:00:00 AM EDT eCW1 ([facility]) [facility] [address] [facility] [place] [address] 08/04/2019 12:00:00 AM EDT eCW1 ([facility]) [address] [address] 08/04/2019 12:00:00 AM EDT eCW1 ([facility] [facility] [address] [place] [address] 07/09/2019 12:00:00 AM EST eCW1 ([facility]) [address] [address] 07/07/2019 12:00:00 AM EST eCW1 ([facility]) [address] [address] 07/06/2019 12:00:00 AM EST eCW1 ([facility] Office Visit Attender: SOLOMON NELSON MD Main Office 07/01/2019 07:55:0 0 AM EST MEDENT ([facility]) [address] [address] 06/29/2019 12:00:00 AM EST eCW1 ([facility]) 06/10/2019 12:00:00 AM EST - 020 05:18:38 PM EDT NETSMART ([facility]) [address] [address] 05/27/2019 12:00:00 AM EST eCW1 ([facility] [address] [address] 05/14/2019 12:00:00 AM EST eCW1 ([facility]) [address] [address] 05/12/2019 12:00:00 AM EST eCW1 ([facility]) [address] [address] 04/21/2019 12:00:00 AM EST eCW1 ([facility]) Outpatient Attender: Margarette WILD Main Office 04/15/2019 08:15:00 AM EST MEDENT ([facility]) [facility] [address] [facility] [place] [address] 04/14/2019 12:00:00 AM EST eCW1 ([facility]) [facility] [place] [address] [facility] [place] [address] 03/31/2019 12:00:00 AM EST eCW1 ([facility]) [facility] [place] [address] [facility] [facility] [place] [address] 03/31/2019 12:00:00 AM EST eCW1 ([facility]) [facility] [place] [address] [facility] [facility] [place] [address] 03/27/2019 12:00:00 AM EST eCW1 ([facility]) [facility] [place] [address] [facility] [facility] [place] [address] 03/23/2019 12:00:00 AM EST eCW1 ([facility]) Immunizations Vaccine Date Status Description Data Source(s) influenza, recombinant, quadrIvalent,injectable, prese rvative free 03/03/2020 02:38:00 PM EDT completed eCW1 ([facility]) influenza, recombinant, quadrIvalent,injectable, prese rvative free 03/03/2020 02:38:00 PM EDT completed eCW1 ([facility]) influenza, recombinant, quadrIvalent,injectable, prese rvative free 03/03/2020 02:38:00 PM EDT completed eCW1 ([facility]) influenza, recombinant, quadrIvalent,injectable, prese rvative free 03/03/2020 02:38:00 PM EDT completed eCW1 ([facility]) influenza, recombinant, quadrIvalent,injectable, prese rvative free 03/03/2020 02:38:00 PM EDT completed eCW1 ([facility]) influenza, recombinant, quadrIvalent,injectable, prese rvative free 03/03/2020 02:38:00 PM EDT completed eCW1 ([facility]) influenza, recombinant, quadrIvalent,injectable, prese rvative free 03/03/2020 02:38:00 PM EDT completed eCW1 ([facility]) influenza, recombinant, quadrIvalent,injectable, prese rvative free 03/03/2020 02:38:00 PM EDT completed eCW1 ([facility]) influenza, recombinant, quadrIvalent,injectable, prese rvative free 03/03/2020 02:38:00 PM EDT completed eCW1 ([facility]) influenza, recombinant, quadrIvalent,injectable, prese rvative free 03/27/2019 11:06:00 AM EST completed eCW1 ([facility]) influenza, recombinant, quadrIvalent,injectable, prese rvative free 03/27/2019 11:06:00 AM EST completed eCW1 ([facility]) influenza, recombinant, quadrIvalent,injectable, prese rvative free 03/27/2019 11:06:00 AM EST completed eCW1 ([facility]) influenza, recombinant, quadrIvalent,injectable, prese rvative free 03/27/2019 11:06:00 AM EST completed eCW1 ([facility]) influenza, recombinant, quadrIvalent,injectable, prese rvative free 03/27/2019 11:06:00 AM EST completed eCW1 ([facility]) influenza, recombinant, quadrIvalent,injectable, prese rvative free 03/27/2019 11:06:00 AM EST completed eCW1 ([facility]) influenza, recombinant, quadrIvalent,injectable, prese rvative free 03/27/2019 11:06:00 AM EST completed eCW1 ([facility]) influenza, recombinant, quadrIvalent,injectable, prese rvative free 03/27/2019 11:06:00 AM EST completed eCW1 ([facility]) influenza, recombinant, quadrIvalent,injectable, prese rvative free 03/27/2019 11:06:00 AM EST completed eCW1 ([facility]) influenza, recombinant, quadrIvalent,injectable, prese rvative free 03/27/2019 11:06:00 AM EST completed eCW1 ([facility]) influenza, recombinant, quadrIvalent,injectable, prese rvative free 03/27/2019 11:06:00 AM EST completed eCW1 ([facility]) influenza, recombinant, quadrIvalent,injectable, prese rvative free 03/27/2019 11:06:00 AM EST completed eCW1 ([facility]) influenza, recombinant, quadrIvalent,injectable, prese rvative free 03/27/2019 11:06:00 AM EST completed eCW1 ([facility]) Medications Medication Brand Name Start Date Product Form Dose Route Admi nistrative Instructions Pharmacy Instructions Status Indications Reaction Description Data Source(s) Nebulizer - Nebulizer - 03/24/2020 12:00:00 AM EST active Nebulizer - eCW1 ([facility]) Nebulizer - Nebulizer - 03/24/2020 12:00:00 AM EST active Nebulizer - eCW1 ([facility]) Nebulizer - Nebulizer - 03/24/2020 12:00:00 AM EST active Nebulizer - eCW1 ([facility]) Nebulizer - Nebulizer - 03/24/2020 12:00:00 AM EST active Nebulizer - eCW1 ([facility]) Amiodarone hydrochloride 200 MG Oral Tablet Amiodarone HCL 03/10/2020 12:00:00 AM EST ORAL active MEDENT ([facility]) Nebulizer/Tubing/Mouthpiece - Nebulizer/Tubing/Mouthpiece - 03/03/2020 12:00:00 AM EDT active Nebulizer/Tubing/ Mouthpiece - eCW1 ([facility]) Nebulizer/Tubing/Mouthpiece - Nebulizer/Tubing/Mouthpiece - 03/03/2020 12:00:00 AM EDT active Nebulizer/Tubing/ Mouthpiece - eCW1 ([facility]) Nebulizer/Tubing/Mouthpiece - Nebulizer/Tubing/Mouthpiece - 03/03/2020 12:00:00 AM EDT active Nebulizer/Tubing/ Mouthpiece - eCW1 ([facility]) Nebulizer/Tubing/Mouthpiece - Nebulizer/Tubing/Mouthpiece - 03/03/2020 12:00:00 AM EDT active Nebulizer/Tubing/ Mouthpiece - eCW1 ([facility]) Erythromycin 0.005 MG/MG Ophthalmic Ointment Erythromy juan c 5 MG/GM Erythromycin 5 MG/GM 03/03/2020 12:00:00 AM EDT active Erythromycin 5 MG/GM eCW1 ([facility]) Nebulizer/Tubing/Mouthpiece - Nebulizer/Tubing/Mouthpiece - 03/03/2020 12:00:00 AM EDT active Nebulizer/Tubing/ Mouthpiece - eCW1 ([facility]) Erythromycin 0.005 MG/MG Ophthalmic Ointment Erythromy juan c 5 MG/GM Erythromycin 5 MG/GM 03/03/2020 12:00:00 AM EDT active Erythromycin 5 MG/GM eCW1 ([facility]) Nebulizer/Tubing/Mouthpiece - Nebulizer/Tubing/Mouthpiece - 03/03/2020 12:00:00 AM EDT active Nebulizer/Tubing/ Mouthpiece - eCW1 ([facility]) Nebulizer/Tubing/Mouthpiece - Nebulizer/Tubing/Mouthpiece - 03/03/2020 12:00:00 AM EDT active Nebulizer/Tubing/ Mouthpiece - eCW1 ([facility]) Erythromycin 0.005 MG/MG Ophthalmic Ointment Erythromy juan c 5 MG/GM Erythromycin 5 MG/GM 03/03/2020 12:00:00 AM EDT active Erythromycin 5 MG/GM eCW1 ([facility]) Erythromycin 0.005 MG/MG Ophthalmic Ointment Erythromy juan c 5 MG/GM Erythromycin 5 MG/GM 03/03/2020 12:00:00 AM EDT active Erythromycin 5 MG/GM eCW1 ([facility]) Erythromycin 0.005 MG/MG Ophthalmic Ointment Erythromy juan c 5 MG/GM Erythromycin 5 MG/GM 03/03/2020 12:00:00 AM EDT active Erythromycin 5 MG/GM eCW1 ([facility]) Erythromycin 0.005 MG/MG Ophthalmic Ointment Erythromy juan c 5 MG/GM Erythromycin 5 MG/GM 03/03/2020 12:00:00 AM EDT active Erythromycin 5 MG/GM eCW1 ([facility]) Nebulizer/Tubing/Mouthpiece - Nebulizer/Tubing/Mouthpiece - 03/03/2020 12:00:00 AM EDT active Nebulizer/Tubing/ Mouthpiece - eCW1 ([facility]) Erythromycin 0.005 MG/MG Ophthalmic Ointment Erythromy juan c 5 MG/GM Erythromycin 5 MG/GM 03/03/2020 12:00:00 AM EDT active Erythromycin 5 MG/GM eCW1 ([facility]) Nebulizer/Tubing/Mouthpiece - Nebulizer/Tubing/Mouthpiece - 03/03/2020 12:00:00 AM EDT active Nebulizer/Tubing/ Mouthpiece - eCW1 ([facility]) Erythromycin 0.005 MG/MG Ophthalmic Ointment Erythromy juan c 5 MG/GM Erythromycin 5 MG/GM 03/03/2020 12:00:00 AM EDT active Erythromycin 5 MG/GM eCW1 ([facility]) Erythromycin 0.005 MG/MG Ophthalmic Ointment Erythromy juan c 5 MG/GM Erythromycin 5 MG/GM 03/03/2020 12:00:00 AM EDT active Erythromycin 5 MG/GM eCW1 ([facility]) Amiodarone HCl 200 MG Amiodarone HCl 02/25/2020 01:00:00 AM EDT 200.0 {mg} completed NETSMART ([facility]) Amiodarone hydrochloride 200 MG Oral Tablet Amiodarone HCL 02/24/2020 12:00:00 AM EDT ORAL completed MEDENT ([facility]) Calcium Carbonate 500 MG Chewable Tablet [Tums] Tums 02/23/2020 12:00:00 AM EDT ORAL active MEDENT ( [facility]) Amiodarone HCl 200 MG Amiodarone HCl 02/10/2020 01:00:00 AM EDT completed NETSMART ([facility]) Amiodarone hydrochloride 200 MG Oral Tablet Amiodarone HCL 02/05/2020 12:00:00 AM EDT ORAL completed MEDENT ([facility]) Afrin 12 Hour 0.05 % Afrin 12 Hour 02/01/2020 01:00:00 AM EDT completed NETSMART ([facility]) Clotrimazole 1 % Clotrimazole 02/01/2020 01:00:00 AM EDT completed NETSMART ([facility]) Oxygen Oxygen 02/01/2020 01:00:00 AM EDT 3.0 {L} comple torrey NETSMART ([facility]) Sucralfate 1 GM Sucralfate 02/01/2020 01:00:00 AM EDT completed NETSMART ([facility]) Famotidine 40 MG Oral Tablet Famotidine 01/25/2020 12:00:00 AM EDT ORAL active MEDENT ([facility]) Diclofenac Sodium 0.01 MG/MG Topical Gel Voltaren 01/25/2020 12 :00:00 AM EDT active MEDENT ([facility]) Voltaren 1 % Voltaren 12/02/2019 01:00:00 AM EDT c ompleted NETSMART ([facility]) PredniSONE 20 MG PredniSONE 11/28/2019 01:00:00 AM EDT 3.0 {tabl et} completed NETSMART ([facility]) Chantix Continuing Month Marlon 1 MG Chantix Continuing Month P ak 1 MG 09/03/2019 12:00:00 AM EDT suspended Chant ix Continuing Month Marlon 1 MG eCW1 ([facility]) Chantix Continuing Month Marlon 1 MG Chantix Continuing Month P ak 1 MG 09/03/2019 12:00:00 AM EDT active Chantix Continuing Month Marlon 1 MG eCW1 ([facility]) Chantix Continuing Month Marlon 1 MG Chantix Continuing Month P ak 1 MG 09/03/2019 12:00:00 AM EDT suspended Chant ix Continuing Month Marlon 1 MG eCW1 ([facility]) Chantix Continuing Month Marlon 1 MG Chantix Continuing Month P ak 1 MG 09/03/2019 12:00:00 AM EDT active Chantix Continuing Month Marlon 1 MG eCW1 ([facility]) Chantix Continuing Month Marlon 1 MG Chantix Continuing Month P ak 1 MG 09/03/2019 12:00:00 AM EDT suspended Chant ix Continuing Month Marlon 1 MG eCW1 ([facility]) Chantix Continuing Month Marlon 1 MG Chantix Continuing Month P ak 1 MG 09/03/2019 12:00:00 AM EDT suspended Chant ix Continuing Month Marlon 1 MG eCW1 ([facility]) Chantix Continuing Month Marlon 1 MG Chantix Continuing Month P ak 1 MG 09/03/2019 12:00:00 AM EDT active as direc torrey eCW1 ([facility]) Chantix Continuing Month Marlon 1 MG Chantix Continuing Month P ak 1 MG 09/03/2019 12:00:00 AM EDT suspended Chant ix Continuing Month Marlon 1 MG eCW1 ([facility]) Chantix Continuing Month Marlon 1 MG Chantix Continuing Month P ak 1 MG 09/03/2019 12:00:00 AM EDT suspended Chant ix Continuing Month Marlon 1 MG eCW1 ([facility]) Chantix Continuing Month Marlon 1 MG Chantix Continuing Month P ak 1 MG 09/03/2019 12:00:00 AM EDT suspended Chant ix Continuing Month Marlon 1 MG eCW1 ([facility]) Chantix Continuing Month Marlon 1 MG Chantix Continuing Month P ak 1 MG 09/03/2019 12:00:00 AM EDT suspended Chant ix Continuing Month Marlon 1 MG eCW1 ([facility]) Chantix Continuing Month Marlon 1 MG Chantix Continuing Month P ak 1 MG 09/03/2019 12:00:00 AM EDT suspended Chant ix Continuing Month Marlon 1 MG eCW1 ([facility]) Chantix Continuing Month Marlon 1 MG Chantix Continuing Month P ak 1 MG 09/03/2019 12:00:00 AM EDT suspended Chant ix Continuing Month Marlon 1 MG eCW1 ([facility]) Oxygen UNK 07/09/2019 12:00:00 AM EST active Oxygen eCW1 ([facility]) Oxygen UNK 07/09/2019 12:00:00 AM EST active Oxygen eCW1 ([facility]) Oxygen UNK 07/09/2019 12:00:00 AM EST active Oxygen eCW1 ([facility]) Oxygen UNK 07/09/2019 12:00:00 AM EST active Oxygen eCW1 ([facility]) Oxygen UNK 07/09/2019 12:00:00 AM EST active Oxygen eCW1 ([facility]) Oxygen UNK 07/09/2019 12:00:00 AM EST active 2LPM eCW1 ([facility]) Oxygen UNK 07/09/2019 12:00:00 AM EST active Oxygen eCW1 ([facility]) Oxygen UNK 07/09/2019 12:00:00 AM EST active Oxygen eCW1 ([facility]) Oxygen UNK 07/09/2019 12:00:00 AM EST active Oxygen eCW1 ([facility]) Oxygen UNK 07/09/2019 12:00:00 AM EST active Oxygen eCW1 ([facility]) Oxygen UNK 07/09/2019 12:00:00 AM EST active Oxygen eCW1 ([facility]) Oxygen UNK 07/09/2019 12:00:00 AM EST active Oxygen eCW1 ([facility]) Oxygen UNK 07/09/2019 12:00:00 AM EST active Oxygen eCW1 ([facility]) Ofloxacin 3 MG/ML Ophthalmic Solution Ofloxacin 0.3 % Ofloxa juan c 0.3 % 06/29/2019 12:00:00 AM EST 1.0 {drop_into_affected_eye} oneill spended Ofloxacin 0.3 % eCW1 ([facility]) Oxygen UNK 06/29/2019 12:00:00 AM EST active Oxygen eCW1 ([facility]) Oxygen UNK 06/29/2019 12:00:00 AM EST active Oxygen eCW1 ([facility]) Oxygen UNK 06/29/2019 12:00:00 AM EST active Oxygen eCW1 ([facility]) Oxygen UNK 06/29/2019 12:00:00 AM EST active Oxygen eCW1 ([facility]) Ofloxacin 3 MG/ML Ophthalmic Solution Ofloxacin 0.3 % Ofloxa juan c 0.3 % 06/29/2019 12:00:00 AM EST 1.0 {drop_into_affected_eye} oneill spended Ofloxacin 0.3 % eCW1 ([facility]) Oxygen UNK 06/29/2019 12:00:00 AM EST acti ve continuous and portable eCW1 ([facility]) Ofloxacin 3 MG/ML Ophthalmic Solution Ofloxacin 0.3 % Ofloxa juan c 0.3 % 06/29/2019 12:00:00 AM EST 1.0 {drop_into_affected_eye} oneill spended Ofloxacin 0.3 % eCW1 ([facility]) Oxygen UNK 06/29/2019 12:00:00 AM EST active Oxygen eCW1 ([facility]) Ofloxacin 3 MG/ML Ophthalmic Solution Ofloxacin 0.3 % Ofloxa juan c 0.3 % 06/29/2019 12:00:00 AM EST 1.0 {drop_into_affected_eye} ac tive Ofloxacin 0.3 % eCW1 ([facility]) Ofloxacin 3 MG/ML Ophthalmic Solution Ofloxacin 0.3 % Ofloxa juan c 0.3 % 06/29/2019 12:00:00 AM EST active 1 drop into affected eye eCW1 ([facility]) Oxygen UNK 06/29/2019 12:00:00 AM EST active Oxygen eCW1 ([facility]) Ofloxacin 3 MG/ML Ophthalmic Solution Ofloxacin 0.3 % Ofloxa juan c 0.3 % 06/29/2019 12:00:00 AM EST 1.0 {drop_into_affected_eye} oneill spended Ofloxacin 0.3 % eCW1 ([facility]) Oxygen UNK 06/29/2019 12:00:00 AM EST active Oxygen eCW1 ([facility]) Ofloxacin 3 MG/ML Ophthalmic Solution Ofloxacin 0.3 % Ofloxa juan c 0.3 % 06/29/2019 12:00:00 AM EST 1.0 {drop_into_affected_eye} oneill spended Ofloxacin 0.3 % eCW1 ([facility]) Ofloxacin 3 MG/ML Ophthalmic Solution Ofloxacin 0.3 % Ofloxa juan c 0.3 % 06/29/2019 12:00:00 AM EST 1.0 {drop_into_affected_eye} oneill spended Ofloxacin 0.3 % eCW1 ([facility]) Oxygen UNK 06/29/2019 12:00:00 AM EST active Oxygen eCW1 ([facility]) Ofloxacin 3 MG/ML Ophthalmic Solution Ofloxacin 0.3 % Ofloxa juan c 0.3 % 06/29/2019 12:00:00 AM EST 1.0 {drop_into_affected_eye} oneill spended Ofloxacin 0.3 % eCW1 ([facility]) Ofloxacin 3 MG/ML Ophthalmic Solution Ofloxacin 0.3 % Ofloxa juan c 0.3 % 06/29/2019 12:00:00 AM EST 1.0 {drop_into_affected_eye} oneill spended Ofloxacin 0.3 % eCW1 ([facility]) Oxygen UNK 06/29/2019 12:00:00 AM EST active Oxygen eCW1 ([facility]) Ofloxacin 3 MG/ML Ophthalmic Solution Ofloxacin 0.3 % Ofloxa juan c 0.3 % 06/29/2019 12:00:00 AM EST 1.0 {drop_into_affected_eye} ac tive Ofloxacin 0.3 % eCW1 ([facility]) Ofloxacin 3 MG/ML Ophthalmic Solution Ofloxacin 0.3 % Ofloxa juan c 0.3 % 06/29/2019 12:00:00 AM EST 1.0 {drop_into_affected_eye} oneill spended Ofloxacin 0.3 % eCW1 ([facility]) Ofloxacin 3 MG/ML Ophthalmic Solution Ofloxacin 0.3 % Ofloxa juan c 0.3 % 06/29/2019 12:00:00 AM EST 1.0 {drop_into_affected_eye} oneill spended Ofloxacin 0.3 % eCW1 ([facility]) Oxygen UNK 06/29/2019 12:00:00 AM EST active Oxygen eCW1 ([facility]) Oxygen UNK 06/29/2019 12:00:00 AM EST active Oxygen eCW1 ([facility]) Oxygen UNK 06/29/2019 12:00:00 AM EST active Oxygen eCW1 ([facility]) Famotidine 40 MG Oral Tablet Famotidine 40 MG 05/28/2019 12:00:00 A M EST 1.0 {tablet_at_bedtime} suspended Famotidine 40 MG eCW1 ([facility]) Famotidine 40 MG Oral Tablet Famotidine 40 MG 05/28/2019 12:00:00 A M EST 1.0 {tablet_at_bedtime} suspended Famotidine 40 MG eCW1 ([facility]) Famotidine 40 MG Oral Tablet Famotidine 40 MG 05/28/2019 12:00:00 A M EST 1.0 {tablet_at_bedtime} suspended Famotidine 40 MG eCW1 ([facility]) Famotidine 40 MG Oral Tablet Famotidine 40 MG 05/28/2019 12:00:00 A M EST 1.0 {tablet_at_bedtime} suspended Famotidine 40 MG eCW1 ([facility]) Famotidine 40 MG Oral Tablet Famotidine 40 MG 05/28/2019 12:00:00 A M EST 1.0 {tablet_at_bedtime} suspended Famotidine 40 MG eCW1 ([facility]) Famotidine 40 MG Oral Tablet Famotidine 40 MG 05/28/2019 12:00:00 A M EST 1.0 {tablet_at_bedtime} suspended Famotidine 40 MG eCW1 ([facility]) Famotidine 40 MG Oral Tablet Famotidine 40 MG 05/28/2019 12:00:[address] suspended 1 tablet at bedtime eCW1 ([facility]) Famotidine 40 MG Oral Tablet Famotidine 40 MG 05/28/2019 12:00:00 A M EST 1.0 {tablet_at_bedtime} suspended Famotidine 40 MG eCW1 ([facility]) Famotidine 40 MG Oral Tablet Famotidine 40 MG 05/28/2019 12:00:00 A M EST 1.0 {tablet_at_bedtime} suspended Famotidine 40 MG eCW1 ([facility]) Famotidine 40 MG Oral Tablet Famotidine 40 MG 05/28/2019 12:00:00 A M EST 1.0 {tablet_at_bedtime} suspended Famotidine 40 MG eCW1 ([facility]) Famotidine 40 MG Oral Tablet Famotidine 40 MG 05/28/2019 12:00:00 A M EST 1.0 {tablet_at_bedtime} suspended Famotidine 40 MG eCW1 ([facility]) Famotidine 40 MG Oral Tablet Famotidine 40 MG 05/28/2019 12:00:[address] active 1 tablet at bedtime eCW1 ([facility]) Famotidine 40 MG Oral Tablet Famotidine 40 MG 05/28/2019 12:00:00 A M EST 1.0 {tablet_at_bedtime} suspended Famotidine 40 MG eCW1 ([facility]) Famotidine 40 MG Oral Tablet Famotidine 40 MG 05/28/2019 12:00:00 A M EST 1.0 {tablet_at_bedtime} suspended Famotidine 40 MG eCW1 ([facility]) Aleve 220 MG Aleve 05/21/2019 12:00:00 AM EST comp leted NETSMART ([facility]) varenicline 1 MG Oral Tablet [Chantix] Chantix 04/14/2019 12:00:00 AM EST ORAL active MEDENT ([facility]) Chantix Starting Month Marlon 0.5 MG X 11 & 1 MG X 42 Ruchi ntix Starting Month Marlon 0.5 MG X 11 & 1 MG X 42 03/27/2019 12:00:00 AM EST suspended Chantix Starting Month Marlon 0.5 MG X 11 & 1 MG X 42 eCW1 ([facility]) Chantix Continuing Month Marlon 1 MG Chantix Continuing Month P ak 1 MG 03/27/2019 12:00:00 AM EST suspended 1 tab let eCW1 ([facility]) Chantix Continuing Month Marlon 1 MG Chantix Continuing Month P ak 1 MG 03/27/2019 12:00:00 AM EST 1.0 {tablet} suspended Chantix Continuing Month Marlon 1 MG eCW1 ([facility]) Chantix Starting Month Marlon 0.5 MG X 11 & 1 MG X 42 Ruchi ntix Starting Month Marlon 0.5 MG X 11 & 1 MG X 42 03/27/2019 12:00:00 AM EST suspended Chantix Starting Month Marlon 0.5 MG X 11 & 1 MG X 42 eCW1 ([facility]) Chantix Continuing Month Marlon 1 MG Chantix Continuing Month P ak 1 MG 03/27/2019 12:00:00 AM EST 1.0 {tablet} suspended Chantix Continuing Month Marlon 1 MG eCW1 ([facility]) Chantix Starting Month Marlon 0.5 MG X 11 & 1 MG X 42 Ruchi ntix Starting Month Marlon 0.5 MG X 11 & 1 MG X 42 03/27/2019 12:00:00 AM EST active as directed eCW1 ([facility]) Chantix Continuing Month Marlon 1 MG Chantix Continuing Month P ak 1 MG 03/27/2019 12:00:00 AM EST 1.0 {tablet} suspended Chantix Continuing Month Marlon 1 MG eCW1 ([facility]) Chantix Starting Month Marlon 0.5 MG X 11 & 1 MG X 42 Ruchi ntix Starting Month Marlon 0.5 MG X 11 & 1 MG X 42 03/27/2019 12:00:00 AM EST suspended Chantix Starting Month Marlon 0.5 MG X 11 & 1 MG X 42 eCW1 ([facility]) Chantix Starting Month Marlon 0.5 MG X 11 & 1 MG X 42 Ruchi ntix Starting Month Marlon 0.5 MG X 11 & 1 MG X 42 03/27/2019 12:00:00 AM EST suspended Chantix Starting Month Marlon 0.5 MG X 11 & 1 MG X 42 eCW1 ([facility]) Chantix Starting Month Marlon 0.5 MG X 11 & 1 MG X 42 Ruchi ntix Starting Month Marlon 0.5 MG X 11 & 1 MG X 42 03/27/2019 12:00:00 AM EST suspended Chantix Starting Month Marlon 0.5 MG X 11 & 1 MG X 42 eCW1 ([facility]) Chantix Continuing Month Marlon 1 MG Chantix Continuing Month P ak 1 MG 03/27/2019 12:00:00 AM EST active 1 tablet eCW1 ([facility]) Chantix Continuing Month Marlon 1 MG Chantix Continuing Month P ak 1 MG 03/27/2019 12:00:00 AM EST 1.0 {tablet} suspended Chantix Continuing Month Marlon 1 MG eCW1 ([facility]) Chantix Continuing Month Marlon 1 MG Chantix Continuing Month P ak 1 MG 03/27/2019 12:00:00 AM EST 1.0 {tablet} suspended Chantix Continuing Month Marlon 1 MG eCW1 ([facility]) Chantix Starting Month Marlon 0.5 MG X 11 & 1 MG X 42 Ruchi ntix Starting Month Marlon 0.5 MG X 11 & 1 MG X 42 03/27/2019 12:00:00 AM EST suspended Chantix Starting Month Marlon 0.5 MG X 11 & 1 MG X 42 eCW1 ([facility]) Chantix Starting Month Marlon 0.5 MG X 11 & 1 MG X 42 Ruchi ntix Starting Month Marlon 0.5 MG X 11 & 1 MG X 42 03/27/2019 12:00:00 AM EST suspended Chantix Starting Month Marlon 0.5 MG X 11 & 1 MG X 42 eCW1 ([facility]) Chantix Starting Month Marlon 0.5 MG X 11 & 1 MG X 42 Ruchi ntix Starting Month Marlon 0.5 MG X 11 & 1 MG X 42 03/27/2019 12:00:00 AM EST suspended Chantix Starting Month Marlon 0.5 MG X 11 & 1 MG X 42 eCW1 ([facility]) Chantix Starting Month Marlon 0.5 MG X 11 & 1 MG X 42 Ruchi ntix Starting Month Marlon 0.5 MG X 11 & 1 MG X 42 03/27/2019 12:00:00 AM EST suspended Chantix Starting Month Marlon 0.5 MG X 11 & 1 MG X 42 eCW1 ([facility]) Chantix Starting Month Marlon 0.5 MG X 11 & 1 MG X 42 Ruchi ntix Starting Month Marlon 0.5 MG X 11 & 1 MG X 42 03/27/2019 12:00:00 AM EST suspended as directed eCW1 ([facility]) Chantix Continuing Month Marlon 1 MG Chantix Continuing Month P ak 1 MG 03/27/2019 12:00:00 AM EST 1.0 {tablet} suspended Chantix Continuing Month Marlon 1 MG eCW1 ([facility]) Chantix Starting Month Marlon 0.5 MG X 11 & 1 MG X 42 Ruchi ntix Starting Month Marlon 0.5 MG X 11 & 1 MG X 42 03/27/2019 12:00:00 AM EST suspended Chantix Starting Month Marlon 0.5 MG X 11 & 1 MG X 42 eCW1 ([facility]) Chantix Continuing Month Marlon 1 MG Chantix Continuing Month P ak 1 MG 03/27/2019 12:00:00 AM EST 1.0 {tablet} suspended Chantix Continuing Month Marlon 1 MG eCW1 ([facility]) Chantix Continuing Month Marlon 1 MG Chantix Continuing Month P ak 1 MG 03/27/2019 12:00:00 AM EST 1.0 {tablet} suspended Chantix Continuing Month Marlon 1 MG eCW1 ([facility]) Chantix Continuing Month Marlon 1 MG Chantix Continuing Month P ak 1 MG 03/27/2019 12:00:00 AM EST 1.0 {tablet} suspended Chantix Continuing Month Marlon 1 MG eCW1 ([facility]) Chantix Continuing Month Marlon 1 MG Chantix Continuing Month P ak 1 MG 03/27/2019 12:00:00 AM EST 1.0 {tablet} suspended Chantix Continuing Month Marlon 1 MG eCW1 ([facility]) Chantix Continuing Month Marlon 1 MG Chantix Continuing Month P ak 1 MG 03/27/2019 12:00:00 AM EST 1.0 {tablet} suspended Chantix Continuing Month Marlon 1 MG eCW1 ([facility]) Chantix Continuing Month Marlon 1 MG Chantix Continuing Month P ak 1 MG 03/27/2019 12:00:00 AM EST 1.0 {tablet} suspended Chantix Continuing Month Marlon 1 MG eCW1 ([facility]) Chantix Starting Month Marlon 0.5 MG X 11 & 1 MG X 42 Ruchi ntix Starting Month Marlon 0.5 MG X 11 & 1 MG X 42 03/27/2019 12:00:00 AM EST suspended Chantix Starting Month Marlon 0.5 MG X 11 & 1 MG X 42 eCW1 ([facility]) Chantix Starting Month Marlon 0.5 MG X 11 & 1 MG X 42 Ruchi ntix Starting Month Marlon 0.5 MG X 11 & 1 MG X 42 03/27/2019 12:00:00 AM EST suspended Chantix Starting Month Marlon 0.5 MG X 11 & 1 MG X 42 eCW1 ([facility]) Chantix Starting Month Marlon 0.5 MG X 11 & 1 MG X 42 Chantix S tarting Month Marlon 11/25/2018 01:00:00 AM EDT completed NETSMART ([facility]) Aleve PM 220-25 MG Aleve PM 12/25/2017 01:00:00 AM EDT completed NETSMART ([facility] ) Oxygen Oxygen 07/06/2017 12:00:00 AM EST 0 {asp} comple torrey NETSMART ([facility]) Alendronate Sodium 70 MG Alendronate Sodium 04/26/2017 12:00:00 AM EST completed NETSMART ([facility]) Diclofenac Sodium 1 % Diclofenac Sodium 04/26/2017 12:00:00 AM EST completed NETSMART ([facility]) Ranitidine Ranitidine 04/26/2017 12:00:00 AM EST 0 {mg} completed NETSMART ([facility]) Insurance Providers Payer name Policy type / Coverage type Policy ID Covered alliance party ID Covered alliance party's relationship to desir Policy Desir Plan Information SHANI [id number] SP [id number] MEDICARE COMPLETE [id number] SP [id number] MEDICARE COMPLETE [id number] SP [id number] MEDICAID M [id number] S [id number] MEDICARE COMPLETE-UHC O [id number] S [id number] UNHC CP DUAL COMP - FACILITY [id number] 18 [id number] [facility] HEA [id number] S [id number] [facility] MCRO [id number] SP [id number] [facility](MCAID) O [id number] S [id number] [facility] MCRO [id number] SP [id number] MEDICARE [id number] SP [id number] MEDICAID [id number] SP [id number] Medicaid Medigap Part B [id number] Self [id number] Medicare (Part B) Medicare Primary [id number] Self [id number] Medicaid Medigap Part B [id number] Self [id number] [facility] Options Medigap Part B [id number] Self [id number] Medicare (Part B) Medicare Primary [id number] Self [id number] Evercare/ MCR Advantage Commercial [id number] Self [id number] MEDICARE [id number] SP [id number] MEDICAID [id number] SP [id number] ANSI-Medicaid [id number] ANSI-Medicare Part B [id number] ANSI-Medicaid [id number] ANSI-Medicare Part B [id number] ANSI-Medicaid [id number] ANSI-Medicare Part B [id number] ANSI-Medicaid [id number] ANSI-Medicare Part B [id number] ANSI-Medicaid [id number] ANSI-Medicare Part B [id number] ANSI-Medicare Part B [id number] ANSI-Medicaid [id number] Medicaid [facility] Part B [id number] Self [id number] Medicare (Part B) Medicare Primary [id number] Self [id number] Medicaid [facility] Part B [id number] Self [id number] [facility] Healthcare Options [facility] Part B [id number] Self [id number] Medicare (Part B) Medicare Primary [id number] Self [id number] ANSI-Medicaid [id number] ANSI-Medicare Part B [id number] ANSI-Medicaid [id number] ANSI-Medicare Part B [id number] ANSI-Medicaid [id number] ANSI-Medicare Part B [id number] ANSI-Medicare Part B [id number] ANSI-Medicaid [id number] ANSI-Medicare Part B [id number] ANSI-Medicaid [id number] [place] Med[place] Part B [id number] Self [id number] [facility] Medicare Primary [id number] Self [id number] ANSI-Medicare Part B [id number] ANSI-Medicaid [id number] Medicaid Medigap Part B [id number] Self [id number] Medicare (Part B) Medicare Primary [id number] Self [id number] Medicaid Medigap Part B [id number] Self [id number] [facility] Options Medigap Part B [id number] Self [id number] Medicare (Part B) Medicare Primary [id number] Self [id number] ANSI-Medicare Part B [id number] ANSI-Medicaid [id number] MEDICARE [id number] A ANSI-Medicaid [id number] ANSI-Medicare Part B [id number] ANSI-Medicaid [id number] ANSI-Medicare Part B [id number] ANSI-Medicare Part B [id number] ANSI-Medicaid [id number] ANSI-Medicaid [id number] ANSI-Medicare Part B [id number] ANSI-Medicaid [id number] ANSI-Medicare Part B [id number] ANSI-Medicare Part B [id number] ANSI-Medicaid [id number] ANSI-Medicaid [id number] ANSI-Medicare Part B [id number] ANSI-Medicare Part B [id number] ANSI-Medicaid [id number] ANSI-Medicaid [id number] ANSI-Medicare Part B [id number] MEDICARE KWIMO SP KWIMO Medicaid Medigap Part B [id number] Self [id number] Medicare (Part B) Medicare Primary [id number] Self [id number] [facility] [id number] Self [id number] [facility] Options Medigap Part B [id number] Self [id number] Medicare (Part B) Medicare Primary [id number] Self [id number] ANSI-Medicare Part B [id number] ANSI-Medicaid [id number] ANSI-Medicaid [id number] ANSI-Medicare Part B [id number] ANSI-Medicaid [id number] ANSI-Medicare Part B [id number] ANSI-Medicaid [id number] ANSI-Medicare Part B [id number] ANSI-Medicare Part B [id number] ANSI-Medicaid [id number] MEDICAID UNAVA[place]ABLE [place] [facility] ANSI-Medicaid [id number] ANSI-Medicare Part B [id number] ANSI-Medicaid [id number] ANSI-Medicare Part B [id number] ANSI-Medicare Part B [id number] ANSI-Medicaid [id number] ANSI-Medicaid [id number] ANSI-Medicare Part B [id number] ANSI-Medicaid [id number] ANSI-Medicare Part B [id number] ANSI-Medicaid [id number] ANSI-Medicare Part B [id number] ANSI-Medicaid [id number] ANSI-Medicare Part B [id number] ANSI-Medicaid [id number] ANSI-Medicare Part B [id number] ANSI-Medicaid [id number] ANSI-Medicare Part B [id number] ANSI-Medicaid [id number] ANSI-Medicare Part B [id number] Medicaid Medigap Part B [id number] Self [id number] Medicare (Part B) Medicare Primary [id number] Self [id number] Medicaid Medigap Part B [id number] Self [id number] [facility] Medigap Part B [id number] Self [id number] Medicare (Part B) Medicare Primary [id number] Self [id number] ANSI-Medicaid [id number] ANSI-Medicare Part B [id number] ANSI-Medicaid [id number] ANSI-Medicare Part B [id number] ANSI-Medicare Part B [id number] ANSI-Medicaid [id number] ANSI-Medicare Part B [id number] ANSI-Medicaid [id number] [place] MEDICARE [id number] SP [id number] ANSI-Medicare Part B [id number] ANSI-Medicaid [id number] ANSI-Medicare Part B [id number] ANSI-Medicaid [id number] ANSI-Medicare Part B [id number] ANSI-Medicaid [id number] ANSI-Medicaid [id number] ANSI-Medicare Part B [id number] MEDICARE C [id number] S [id number] A MEDICARE [id number] Susan [id number] A S [employer], [facility] C [id number] S [id number] Medicare (Part B) Medicare Primary [id number] Self [id number] Medicaid Medigap Part B [id number] Self [id number] [facility] Healthcare Options Medigap Part B [id number] Self [id number] Medicare (Part B) Medicare Primary [id number] Self [id number] Medicare (Part B) Medicare Primary [id number] Self [id number] Medicaid Medigap Part B [id number] Self [id number] [facility] Medigap Part B [id number] Self [id number] Medicare (Part B) Medicare Primary [id number] Self [id number] MEDICARE [id number] SP [id number] A Medicare (Part B) Medicare Primary [id number] Self [id number] Medicaid Medigap Part B [id number] Self [id number] [facility] Medigap Part B [id number] Self [id number] Medicare (Part B) Medicare Primary [id number] Self [id number] Medicare (Part B) Medicare Primary [id number] Self [id number] Medicaid Medigap Part B [id number] Self [id number] [facility] Medigap Part B [id number] Self [id number] Medicare (Part B) Medicare Primary [id number] Self [id number] Medicare (Part B) Medicare Primary [id number] Self [id number] Medicaid Medigap Part B [id number] Self [id number] [facility] Medigap Part B [id number] Self [id number] Medicare (Part B) Medicare Primary [id number] Self [id number] Medicare (Part B) Medicare Primary [id number] Self [id number] Medicaid Medigap Part B [id number] Self [id number] [facility] Medigap Part B [id number] Self [id number] Medicare (Part B) Medicare Primary [id number] Self [id number] Medicare (Part B) Medicare Primary [id number] Self [id number] Medicaid Medigap Part B [id number] Self [id number] [facility] Medigap Part B [id number] Self [id number] Medicare (Part B) Medicare Primary [id number] Self [id number] Medicare (Part B) Medicare Primary Self [employer]/ [employer] Self Medicaid Medigap Part B 1 1 Self 1 1 [facility] Medigap [place] Medicare Primary Self AARP S [id number] S [id number] Medicare Medicare Primary Self [employer]IONS [id number] SP [id number] Medicaid [facility] Part B Self [id number] A [id number] Problems, Conditions, and Diagnoses Code Display Name Description Problem Type Effective Dates Data Source(s) E03.9 Hypothyroidism, unspecified Hypothyroidism, unspecifie d Problem 12/01/2019 01:00:00 AM EDT NETSMART (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 ) F17.210 Nicotine dependence, cigarettes, uncompl icated Nicotine dependence, cigarettes, uncomplicated Problem 04/13/2019 12:00:00 AM EST NETSMAR T ([facility]) M35.3 Polymyalgia rheumatica Polymyalgia rheumatica Problem 04/13/2019 12:00:00 AM EST NETSMART ([facility] ) H26.9 [id number] Cataract, unspecified cataract t ype, unspecified laterality Problem 03/27/2019 12:00:00 AM EST eCW1 ([facility]) F17.200 [id number] Nicotine dependence with current use Prob mario 03/27/2019 12:00:00 AM EST eCW1 ([facility]) H26.9 [id number] Cataract, unspecified cataract t ype, unspecified laterality Problem 03/27/2019 12:00:00 AM EST eCW1 ([facility]) R99 Ill-defined and unknown cause of mortali ty Ill-defined and unknown cause of mortality Diagnosis 03/14/2020 01:39:00 PM [facility] H5703 Miosis Miosis Diagnosis 03/09/2020 08:30:00 AM ES [address] [facility] H268 Other specified cataract Other specified cataract Diag nosis 03/09/2020 08:30:00 AM [facility] [id number] Encounter for other preprocedural examin ation Encounter for other preprocedural examination Diagnosis 03/08/2020 11:55:00 AM [facility] Surgeries/Procedures Procedure Description Date Indications Data Source(s) X-Ray Hip Min 4 View 04/21/2020 12:00:00 AM EST [facility] ([facility] ) X-Ray Hip Unilateral With Pelvis 2-3 Views 04/21/2020 12:00:00 AM EST MEDENT ([facility]) TX INTER/SD/SUBTRCHNTRIC FEM FX IMED IMPLTSCREW 2019 12:00:00 AM EST [facility] ([facility]) ECG ROUTINE ECG W/LEAST 12 LDS W/I&R 03/10/2020 12:00: 00 AM EST [facility] ([facility]) Immunization: Flublok Quadrivalent (18 years & older) 0.5mL IM (Influenza) 03/03/2020 12:00:00 AM EDT eCW1 ([facility]) ECG ROUTINE ECG W/LEAST 12 LDS W/I&R 01/26/2020 12:00: 00 AM EDT MED[facility] ([facility]) INTERROGATION EVAL REMOTE </90 D 1/2/> LD CVDFB 2019 12:00:00 AM EDT [facility] ([facility]) INTERROGATION REMOTE </90 D SECOND BUTLER REVIEW 01/21/20 12:00:00 AM EDT [facility] ([facility]) INTERROGATION EVAL F2F 1/DUAL/RUBY DEVELOPER LEADS CVDFB 10/22/19 12:00:00 AM EDT MED[facility] ([facility]) INTERROGATION EVAL REMOTE </90 D 1/2/> LD CVDFB 2019 12:00:00 AM EDT MEDENT ([facility]) INTERROGATION REMOTE </90 D SECOND BUTLER REVIEW 07/20/19 20 12:00:00 AM EDT [facility] ([facility]) INTERROGATION EVAL REMOTE </90 D 1/2/> LD CVDFB 2018 12:00:00 AM EST [facility] ([facility]) INTERROGATION REMOTE </90 D SECOND BUTLER REVIEW 04/20/20 19 12:00:00 AM EST [facility] ([facility]) Office Visit, Est Pt., Level 4 PC 03/27/2019 12:00:00 AM EST eCW1 ([facility]) Office Visit, Est Pt., Level 3 FC 03/27/2019 12:00:00 AM EST eCW1 ([facility]) RIV4 VACC RECOMBINANT DNA IM 03/27/2019 12:00:00 AM ES T eCW1 ([facility]) Administration of influenza virus vaccine 03/27/2019 1 2:00:00 AM EST eCW1 ([facility]) Results ID Date Data Source [id number] 05/10/2020 12:59:00 PM EST [facility]ENT ([facility] Name Value Range Interpretation Code Description Data Janeen rce(s) Supporting Document(s) Red Blood Count 4.04 4.00-5.40 [facility] ([facility]) White Blood Count 11.4 5.0-10.0 [facility] ([facility]) Hematocrit 37.3 [facility] ([facility]) Platelets 257 172-450 [facility] Hemoglobin 11.1 [facility] ([facility]) ID Date Data Source [id number] 05/10/2020 12:59:00 PM EST [facility] ([facility]) Name Value Range Interpretation Code Description Data Janeen rce(s) Supporting Document(s) Glucose 118 83-110 [facility] Creatinine 1.24 0.6-1.0 [facility] ([facility]) Blood Urea Nitrogen 26 7-18 [facility] ([facility]) Sodium 137 136-145 [facility] Chloride 96 98-107 [facility] Potassium 4.1 3.5-5.1 [facility] Carbon Dioxide 35 21-32 [facility] Calcium 8.7 8.2-9.6 [facility] Glomerular filtration rate/1.73 sq M.pre dicted [Volume Rate/Area] in Serum or Plasma by Creatinine-based formula (MDRD) Laboratory test result [facility] ([facility]) ID Date Data Source [id number] 05/04/2020 09:00:00 AM EST [facility] Name Value Range Interpretation Code Description Data Janeen rce(s) Supporting Document(s) SARS coronavirus 2 RNA [facility] This lab was ordered by [facility] and reported by [facility]. ID Date Data Source [id number] 04/27/2020 06:00:00 AM EST [facility] Name Value Range Interpretation Code Description Data Janeen rce(s) Supporting Document(s) SARS coronavirus 2 RNA [facility] This lab was ordered by [facility] and reported by [facility]. ID Date Data Source [id number] 04/20/2020 12:16:00 PM EST [facility] Name Value Range Interpretation Code Description Data Janeen rce(s) Supporting Document(s) SARS coronavirus 2 RNA [facility] This lab was ordered by [facility] and reported by [facility]. ID Date Data Source [id number] 04/07/2020 04:04:00 PM EST [facility] Name Value Range Interpretation Code Description Data Janeen rce(s) Supporting Document(s) SARS coronavirus 2 RNA [Presence] in Res piratory specimen by MITALI with probe detection [facility] This lab was ordered by [facility] a nd reported by [facility]. ID Date Data Source [id number] 03/11/2020 07:34:00 [place] [address] OPERATIVE SUMMARYNAME: MELISSA PARRA DATE OF : 1945TTENDING PHYS: Yuliet Goss MD DATE: 03/09/20 MR#: [id number] OF PROCEDURE: 03/09/2020PREOPERATIVE DIAGNOSIS: 1. Dense 4+ nuclear sclerosis, left eye. 2. Miosis, left eye.POSTOPERATIVE DIAGNOSIS: 1. Dense 4+ nuclear sclerosis, left eye. 2. Miosis, left eye.PROCEDURE: Phacoemulsification with intraocular lens implantation with Malyugin Ring 7.5mm and VisionBlue dye.SURGEON: CHEIKH KaplanISTANT: None.INDICATION: Decreased vision interfering with daily activities.DETAILS OF PROCEDURE:The patient was brought into the operating room and laid in the supine position. The left eye wasprepped and draped in a sterile fashion for ophthalmic surgery, following which the head wastaped. It was very difficult to position the patient because of his head position and his kyphosis. Alid speculum was placed. A side port incision was made and EndoCoat was injected into theanterior chamber, followed by injection of VisionBlue dye under air. Viscoelastic was then insertedthrough the clear corneal incision, which was 2.5 mm. The 7.5 mm Malyugin Ring was theninserted into the anterior chamber to dilate the miotic pupil. Capsulorhexis was then carried outwithout any issues. Hydrodissection was then done, followed by phacoemulsification in a [id number] method. During this, at one point the patient started moving vigorously and madesudden movements. At that time, it was noted that there was a small rent in the posterior capsule,and a piece of the nuclear material was noted to have a prolapse in the vitreous. At this point, it wasdecided to place a [id number] 21.0 diopter lens in the sulcus. Excess cortical material was thenaspirated using irrigation and aspiration cannula. Miochol was injected to bring the pupil down andany vitreous in the anterior chamber, which was minimal, was removed with the help of Ankita Fernández scissors. The wound was closed using one 10-0 nylon suture. Subtenon injection ofKenalog was given, and intracameral antibiotics were given. The patient was returned to therecovery room in stable condition. [address] [place] [id number] OPERATIVE SUMMARYNAME: MELISSA PARRA DATE OF : 1945TTENDING PHYS: Yuliet Goss MD DATE: 03/09/20 MR#: [id number]: Yuliet Gsos MD 03/10/20 17:21DT: SSR 03/11/20 07:07DS: Yuliet Goss MD 04/06/20 09:59 2 Name Value Range Interpretation Code Description Data Janeen rce(s) Supporting Document(s) ID Date Data Source [id number] 03/23/2020 03:50:00 PM EST [facility] Name Value Range Interpretation Code Description Data Janeen rce(s) Supporting Document(s) Magnesium [Mass/volume] in Serum or Plasma 2.3 mg/dL 1.8-2.4 [facility] ([facility]) ID Date Data Source [id number] 03/23/2020 03:50:00 PM EST [facility] ([facility]) Name Value Range Interpretation Code Description Data Janeen rce(s) Supporting Document(s) Glucose, Fasting 109 mg/dL 70-100 [facility] ([facility]) Creatinine For GFR 1.27 mg/dL 0.70-1.30 [facility] ([facility]) Blood Urea Nitrogen 24 mg/dL 7-18 [facility] ([facility]) Glomerular Filtration Rate 58.5 [facility] ([facility]) <content>Units are mL/min/1.73 m2</content>
<content></content>
<content>Chronic Kidney Disease Staging per [facility]:</content>
<content></content>
<content>Stage I & II GFR >=60 Normal to Mildly Decreased</content>
<content>Stage III GFR 30- 59 Moderately Decreased</content>
<content>Stage IV GFR 15-29 Severely Decreased</content>
<content>Stage V GFR <15 Very Little GFR Left</content>
<content>ESRD GFR <15 on GEOCHEMISTRY TEACHER</content>
<content></content> Sodium Level 137 meq/L 136-145 [facility] ([facility]) Potassium Serum 4.2 meq/L 3.5-5.1 [facility] ([facility]) Carbon Dioxide Level 36 meq/L 21-32 [facility] ([facility]) Chloride Level 95 meq/L 98-107 [facility] ([facility]) Calcium Level 8.8 mg/dL 8.8-10.2 [facility] ([facility]) Anion Gap 6 meq/L 8-16 [facility] ID Date Data Source [id number] 03/17/2020 10:32:[address] [facility] [place], [place] [id number] NAME: ROSLYN TORRES OF : 1945REPORT: DISCHARGE SUMMARYPATIENT NUMBER: [id number] STATUS: SDMEDICAL RECORD NUMBER: [id number] OF ADMISSION: 03/11/2020DATE OF DISCHARGE: 03/13/2020ROOM: 02ATTENDING PHYSICIAN/DISCHARGING PHYSICIAN: Javid Schmidt MDDIAGNOSES: Acute hypoxic respiratory failure on chronic hypoxic andhypercarbic respiratory failure, COPD, bilateral atelectasis, leukocytosis,bilateral leg edema.For details of history of present illness as well as for the details ofinitial physical exam and initial diagnostic studies, please refer tohistory and physical.HOSPITAL COURSE: Briefly, a 75-year-old man with above-listed medicalproblems as well as the past medical history of congestive heart failure,hypertension, cataracts, presented to the floor. After being evaluatedfollowing urgent ophthalmologic surgery by Dr. Calderon, the patient apparentlyhad cataract surgery done on his left eye on 03/08/2020 with retainednative lens in the eye, therefore the urgent vitrectomy was done in a.m.Surgery was uneventful, but postoperatively the patient developed shortnessof breath and increased oxygen requirements from 3 to 5 liters. Thepatient was admitted to the medical floor for hypoxia. Chest x-ray wasdone, which showed bilateral atelectasis, no acute infiltrates. Because ofbilateral leg edema; he had lower extremity ultrasound, which was negative for DVT. On hospital day 2, the patient felt much better, but his oxygen requirement was s till 5 liters per minute and he had worsening of leukocytosis 16.8. For this reason, he was observed overnight again and in a.m. he was asymptomatic apart from his usual cough and mild shortness of breath, clinically returned to baseline, oxygen requirement was down to 3 liters. Chest x-ray did not show acute disease and white blood cell count also improved down to 14. The patient was discharged in stable condition. For recommendations on discharge as well as diagnostic studies, please refer to discharge instruction. I had a telephone consultation with Dr. Calderon and it was confirmed that the patient will be followed up by Ophthalmology in [place].DICTATED BY: Javid Schmidt, PETERictated: 03/13/2020 21:04DT: 03/13/2020 21:07Job #: [id number]: [facility] [place], [place] Steven Barcenas [place] MD Solomon Spivey MD Rajeev Seth, MDNOTE: [facility] computer generated reports are not confirmed orauthenticated unless they are signed by the providerElectronically Authenticated and Edited by:Javid Schmidt MD On 03/17/2020 10:32 PM EST Name Value Range Interpretation Code Description Data Janene rce(s) Supporting Document(s) ID Date Data Source [id number] 03/13/2020 10:16:31 AM EST [facility] Name Value Range Interpretation Code Description Data Janeen rce(s) Supporting Document(s) WBC 14.0 10*3/uL (4.1-11.0) H [facility] RBC 3.91 10*6/uL (4.60-6.10) L [facility] HGB 11.1 g/dL (13.5-18.0) L [facility] HCT 34.1 % (41.0-53.0) L [facility]MED [facility] [address] [facility] [address] MCV 87.2 fL (80.0-95.0) [facility] MCH 28.3 pg (27.0-32.0) [facility] MCHC 32.5 g/dL (32.0-36.0) [facility] RDW 14.7 % (10.5-14.5) H [facility] PLT 235 10*3/uL (150-450) [facility] MPV 7.8 fL (7.1-10.7) [facility] [place] ID Date Data Source [id number] 03/13/2020 09:35:00 AM EST [facility] DATE OF EXAM: 03/13/2020Chest Radiograph s, 2 views INDICATION: HYPOXIA, LEUCOCYTOSIS TECHNIQUE: PA and lateral views of the chest were obtained. COMPARISON: 03/11/2020. FINDINGS: Again visualized is a pacemaker/defibrillator. There is no evidence of pleural disease. There is persistent bibasilar scarring. The cardiac and mediastinal silhouette appears unremarkable. Degenerative changes are seen throughout the spine. IMPRESSION: No focal areas of consolidation are seen. Professional interpretation performed at [facility] .End of diagnostic report for accession: [id number] Interpreted: Ramakrishna Cervantes DOTranscribed: 03/13/2020 09:34 AMSigned: 03/13/2020 09:35 AM Ramakrishna Cervantes DO [facility] # [id number] BILL # [id number] Name Value Range Interpretation Code Description Data Janeen rce(s) Supporting Document(s) ID Date Data Source [id number] 03/24/2020 10:13:00 AM EST [facility] [place] [id number] NAME: ROSLYN TORRES OF : 1945REPORT: OPERATIONPATIENT NUMBER: [id number] STATUS: SDMEDICAL RECORD NUMBER: [id number] OF ADMISSION: 03/11/2020DATE OF DISCHARGE:ROOM: 02DATE OF PROCEDURE: 03/11/2020PREOPERATIVE DIAGNOSIS: Retained lens material, left eye.POSTOPERATIVE DIAGNOSIS: Retained lens material, left eye.OPERATION PERFORMED: Pars plana vitrectomy, pars plana lensectomy, lefteye.SURGEON: Carlos Calderon MDANESTHESIA: MAC with peribulbar block.BLOOD LOSS: Less than 1 mL.COMPLICATIONS: None.DESCRIPTION OF PROCEDURE: After informed consent was obtained and placedin the patient's medical record, the patient was escorted to the operatingsuite, identified, laid supine on the operating room table. 4 mL of a50/50 mixture of 4 percent lidocaine and 0.75 percent Marcaine was injectedinto the left peribulbar space with the aid of a peribulbar needle withoutcomplications. The left eye was prepped and draped in usual sterilefashion, a lid speculum was placed in the eye. The operating microscopewas brought in proper position.25-gauge vitrectomy cannulas were inserted through the sclera in theinferotemporal, supratemporal, supranasal quadrants with aid of a trocar bybeveled approach after displacing the conjunctiva. The infusion cannulawas inserted in the infratemporal vitrectomy cannula, and only aftervisualization of the tip of the infusion cannula in the posterior cavitywas infusion turned on. With aid of a light pipe and vitrector, corevitrectomy was performed, ensuring that the posterior hyaloid was separatedfrom the retina. There was noted to be lens nuclear and cortical material,which were removed with the aid of the vitrector. Vitrectomy was performedposterior to the iris and around the IOL to remove any vitreous prolapse into the anterior chamber. Paracentesis incision was madesuperonasally and any vitreous was swept away from the wound and removed with the vitrector. With the aid of a soft tip extrusion, some cortical material within the capsular bag was removed. The retina was inspected 360 degrees with the aid of scleral depression. There were noted to be no breaks, tears, or detachments. The vitrectomy cans removed from the sclera and sclerotomies and overlying conjunctiva were closed with interrupted 6-0 plain gut sutures. The eyes found to be of adequate intraocular pressure. The lid speculums removed from the eye and 1 drop of timolol and Maxitrol ointment was placed in the eye, which was patch shut and overlaid with a shield. The patient tolerated the procedure well without complication and was transferred to recovery room in good and stable addition.DICTATED BY: PETER Vaughanictated: 03/12/2020 11:28DT: 03/12/2020 11:40Job #: [id number]: [facility] computer generated reports are not confirmed orauthenticated unless they are signed by the providerElectronically Authenticated and Edited by:CARLOS CALDERON MD On 03/24/2020 10:13 AM EST Name Value Range Interpretation Code Description Data Janeen rce(s) Supporting Document(s) ID Date Data Source [id number] 03/12/2020 11:43:36 AM EST [facility] Name Value Range Interpretation Code Description Data Janeen rce(s) Supporting Document(s) TROPONIN I <0.05 ng/mL (<0.05) [facility] [place] Less than 0.05: Myocardial injury unlike lyGreater than or equal to 0.05: Highly suggestive of myocardial injuryCorrelation with rise and/or fall ofserial troponins, clinical symptomsand ECG changes is necessary. ID Date Data Source [id number] 03/12/2020 11:43:36 AM EST [facility] Name Value Range Interpretation Code Description Data Janeen rce(s) Supporting Document(s) NT PRO BNP 411 pg/mL (0-450) [facility] ID Date Data Source [id number] 03/12/2020 11:43:36 AM EST [facility] Name Value Range Interpretation Code Description Data Janeen rce(s) Supporting Document(s) SODIUM 138 mmol/L (136-145) [facility] POTASSIUM 3.9 mmol/L (3.6-5.2) [facility] CHLORIDE 99 mmol/L (100-108) L [facility] CO2 36 mmol/L (22-31) H [facility] ANION GAP 3 mmol/L (7-16) L [facility] UREA NITROGEN 21 mg/dL (7-24) [facility] CREATININE 1.17 mg/dL (0.80-1.30) [facility] BUN/CREAT RATIO 17.9 RATIO (10.0-20.0) [facility] GLUCOSE 110 mg/dL (70-99) H [facility] CALCIUM 8.1 mg/dL (8.4-10.2) L [facility] TOTAL PROTEIN 5.7 g/dL (6.4-8.2) L [facility] ALBUMIN 3.1 g/dL (3.2-4.5) L [facility] GLOBULIN 2.6 g/dL (2.7-4.3) L [facility] ALB/GLOB RATIO 1.2 RATIO [facility] ALKALINE PHOSPHATASE 88 U/L (45-117) [facility] BILIRUBIN,TOTAL 0.4 mg/dL (0.0-1.0) [facility] PLEASE NOTE:Total bilirubin results may be falselyelevated in patients taking Eltrombopag. AST (SGOT) 14 U/L (11-39) [facility] ALT (SGPT) 14 U/L (12-78) [facility] GFR >60 ml/min/1.73m2 (>59) [facility] GFR ( AMER) >60 ml/min/1.73m2 (>59) [facility] GFR INTERPRETATION [facility] --NORMAL KIDNEY FUNCTION OR MILD DISEASE - GFR >OR= 60CHRONIC KIDNEY DISEASE - GFR 15 - 59RENAL FAILURE - GFR <15 Est. GFR calculation based on the MDRDstudy equation, which assumes a steadystate for creatinine. Est. GFR should notbe used for medication dosing. ID Date Data Source [id number] 03/12/2020 11:26:18 AM EST [facility] Name Value Range Interpretation Code Description Data Janeen rce(s) Supporting Document(s) WBC 16.8 10*3/uL (4.1-11.0) H [facility] RBC 3.76 10*6/uL (4.60-6.10) L [facility] HGB 10.4 g/dL (13.5-18.0) L [facility] HCT 32.9 % (41.0-53.0) L [facility] PERFORMED AT [address] [facility] [address] MCV 87.5 fL (80.0-95.0) [facility] MCH 27.7 pg (27.0-32.0) [facility] MCHC 31.6 g/dL (32.0-36.0) L [facility] RDW 14.7 % (10.5-14.5) H [facility] PLT 240 10*3/uL (150-450) [facility] MPV 8.3 fL (7.1-10.7) [facility] ID Date Data Source [id number] 03/11/2020 10:14:00 PM [facility] DATE OF EXAM: 03/11/2020ULTRASOUND VASCU LAR: BILATERAL LOWER EXTREMITY VENOUS DOPPLER. CLINICAL HISTORY: Swelling. COMPARISON: None. TECHNIQUE: Multiple real-time linear array color-flow Doppler images of the deep venous system of the bilateral lower extremities were obtained. Duplex imaging with color flow Doppler and spectral analysis was used to study the deep venous system. Combination of compressibility and flow augmentation was utilized to assess patency. FINDINGS: Flow is identified in the bilateral common femoral, superficial femoral, popliteal, posterior tibial, anterior tibial and peroneal veins. There is no evidence of deep venous thrombosis. IMPRESSION: No evidence of lower extremity deep venous thrombosis. Professional interpretation performed at [facility] .End of diagnostic report for accession: [id number] Interpreted: Chalino Corona MDTranscribed: 03/11/2020 10:14 PMSigned: 03/11/2020 10:14 PM Chalino Corona MD [facility] # [id number] [facility] # [id number] Name Value Range Interpretation Code Description Data Janeen rce(s) Supporting Document(s) ID Date Data Source [id number] 03/11/2020 09:54:00 PM EST [facility] DATE OF EXAM: 03/11/2020CHEST CLINICAL STATEMENT: Shortness of breath. TECHNIQUE: PA and lateral views of the chest. COMPARISON: None. FINDINGS: Subsegmental atelectasis is noted at both lung bases. Otherwise, the lungs are clear. A left chest wall cardiac pacemaker is noted. The cardiomediastinal structures are within normal limits. The visualized osseous structures appear unremarkable. IMPRESSION: Bilateral lower lobe subsegmental atelectasis. Professional interpretation performed at [facility] .End of diagnostic report for accession: [id number] Interpreted: Chalino Corona MDTranscribed: 03/11/2020 09:53 PMSigned: 03/11/2020 09:54 PM Chalino Corona MD [facility] # [id number] BILL # [id number] Name Value Range Interpretation Code Description Data Janeen rce(s) Supporting Document(s) ID Date Data Source [id number] 03/11/2020 09:37:51 PM EST [facility] Name Value Range Interpretation Code Description Data Janeen rce(s) Supporting Document(s) SOURCE [facility] FIO2 [facility] 5LNC PH 7.39 (7.35-7.45) [facility] PCO2 59 mm[Hg] (32-48) H [facility] PO2 75 mm[Hg] (83-108) L [facility] O2 SATURATION 94.2 % (95.0-99.0) L [facility] BASE EXCESS 7.8 mmol/L (0.0-3.0) H [facility] [place] HCO3 34.4 mmol/L (21.0-29.0) H [facility] TOTAL CO2 36.2 mmol/L (23.0-32.0) H [facility] BODY TEMPERATURE 98.6 [degF] [facility] ID Date Data Source [id number] 03/11/2020 09:44:25 PM EST [facility] Name Value Range Interpretation Code Description Data Janeen rce(s) Supporting Document(s) SODIUM 139 mmol/L (136-145) [facility] POTASSIUM 3.8 mmol/L (3.6-5.2) [facility] CHLORIDE 101 mmol/L (100-108) [facility] CO2 35 mmol/L (22-31) H [facility] ANION GAP 3 mmol/L (7-16) L [facility] UREA NITROGEN 21 mg/dL (7-24) [facility] CREATININE 1.27 mg/dL (0.80-1.30) [facility] BUN/CREAT RATIO 16.5 RATIO (10.0-20.0) [facility] GLUCOSE 97 mg/dL (70-99) [facility] CALCIUM 7.7 mg/dL (8.4-10.2) L [facility] TOTAL PROTEIN 5.4 g/dL (6.4-8.2) L [facility] ALBUMIN 3.0 g/dL (3.2-4.5) L [facility] GLOBULIN 2.4 g/dL (2.7-4.3) L [facility] ALB/GLOB RATIO 1.3 RATIO [facility] ALKALINE PHOSPHATASE 84 U/L (45-117) [facility] BILIRUBIN,TOTAL 0.5 mg/dL (0.0-1.0) [facility] PLEASE NOTE:Total bilirubin results may be falselyelevated in patients taking Eltrombopag. AST (SGOT) 15 U/L (11-39) [facility] ALT (SGPT) 14 U/L (12-78) [facility] GFR 55 ml/min/1.73m2 (>59) L [facility] GFR ( AMER) >60 ml/min/1.73m2 (>59) [facility] GFR INTERPRETATION [facility] --NORMAL KIDNEY FUNCTION OR MILD DISEASE - GFR >OR= 60CHRONIC KIDNEY DISEASE - GFR 15 - 59RENAL FAILURE - GFR <15 Est. GFR calculation based on the MDRDstudy equation, which assumes a steadystate for creatinine. Est. GFR should notbe used for medication dosing. ID Date Data Source [id number] 03/11/2020 09:25:28 PM EST [facility] Name Value Range Interpretation Code Description Data Janeen rce(s) Supporting Document(s) PT 10.5 s (9.2-11.9) [facility] [address] [facility] [address] INR 1.00 [facility] SUGGESTED THERAPEUTIC RANGES USING INR F ORSTABILIZED ANTICOAGULATED PATIENTS:STANDARD DOSE THERAPY INR 2.0-3.0 DVT, PE, PREVENT DVT OR EMBOLISMHIGH DOSE THERAPY INR 2.5-3.5 PREVENT EMBOLISM FROM MECHANICAL HEART VALVE ID Date Data Source [id number] 03/11/2020 09:16:35 PM EST [facility] Name Value Range Interpretation Code Description Data Janeen rce(s) Supporting Document(s) WBC 7.9 10*3/uL (4.1-11.0) [facility] [place] RBC 3.58 10*6/uL (4.60-6.10) L [facility] HGB 10.1 g/dL (13.5-18.0) L [facility] HCT 30.9 % (41.0-53.0) L [facility] PERFORMED AT [address] [place] [address] MCV 86.1 fL (80.0-95.0) [facility] MCH 28.1 pg (27.0-32.0) [facility] MCHC 32.7 g/dL (32.0-36.0) [facility] RDW 14.6 % (10.5-14.5) H [facility] PLT 229 10*3/uL (150-450) [facility] MPV 7.7 fL (7.1-10.7) [facility] NEUT % 77.9 % (35.0-75.0) H [facility] LYMPH % 10.4 % (16.0-52.0) L [facility] MONO % 10.3 % (0.0-8.0) H [facility] EOS % 0.8 % (0.0-5.0) [facility] BASO % 0.6 % (0.0-4.0) [facility] NEUT # 6.1 10*3/uL (1.8-7.7) [facility] LYMPH # 0.8 10*3/uL (1.2-4.8) L [facility] MONO # 0.8 10*3/uL (0.0-0.8) [facility] Eosinophils [#/volume] in Blood by Automated count 0.1 10*3/uL (0.0-0 .5) [facility] BASO # 0.0 10*3/uL (0.0-0.2) [facility] ID Date Data Source [id number] 03/11/2020 02:35:00 PM EST [facility] Name Value Range Interpretation Code Description Data Janeen rce(s) Supporting Document(s) SARS coronavirus 2 RNA [Presence] in Res piratory specimen by MITALI with probe detection [facility] This lab was reported by [facility]. ID Date Data Source [id number] 03/11/2020 08:19:43 PM EST [facility] Name Value Range Interpretation Code Description Data Janeen rce(s) Supporting Document(s) SPECIMEN DESCRIPTION [facility] of [facility] COVID19 RESULT (NDET) [facility] THIS ASSAY AMPLIFIES AND DETECTSTHE TARG ET RNA USING REAL-TIME PCR.NEGATIVE 2019_NCOV RT-PCR RESULTS DONOT PRECLUDE 2019_NCOV INFECTION ANDSHOULD NOT BE USED THE SOLE BASISFOR PATIENT MANAGEMENT DECISIONS. COMMENT [facility] APPR[facility] B Y [place]. THE [place] DRUG ADMINISTRATION HAS NOT APPROVEDTHIS TEST. NEGATIVE RESULTS DO NOT [id number] INFECTION AND SHOULD NOT BEUSED THE SOLE BASIS FOR CLINICALDIAGNOSIS OR PATIENT MANAGEMENT DECISIONS.RESULTS EMAILED TO IC AT [phone]. [id number]. FIRST TEST [facility] EMPL[facility]ED IN HLTHCARE Lab [facility] of CN SYMPTOMATIC [facility] of Y DATE OF SYMPT ONSET Lab [facility] of [place] HOSPITAL[place] [facility] [place] [facility] of [place] CONGREGATE CARE SET [facility] [place] [facility] of [facility] ID Date Data Source [id number] 03/04/2020 05:49:00 PM EDT [place] Name Value Range Interpretation Code Description Data Janeen rce(s) Supporting Document(s) SARS-CoV-2 (COVID19) [facility] This lab was ordered by [facility] and reported by [facility]. ID Date Data Source [id number] 11/27/2019 10:40:00 AM EDT MEDENT ([facility]) Name Value Range Interpretation Code Description Data Janeen rce(s) Supporting Document(s) White Blood Count 10.2 4.0-10.0 MED[facility] ([facility]) Platelets 231 150-450 [facility] Red Blood Count 3.78 4.30-6.10 MED[facility] ([facility]) Hematocrit 34.0 MEDENT ([facility]) Hemoglobin 10.8 MED[facility] ([facility]) ID Date Data Source [id number] 10/26/2019 09:17:00 AM EDT [facility] ([facility]) Name Value Range Interpretation Code Description Data Janeen rce(s) Supporting Document(s) Magnesium [Mass/volume] in Serum or Plasma 3.0 mg/dL 1.8-2.4 [facility] ([facility]) ID Date Data Source [id number] 10/26/2019 09:17:00 AM EDT MEDENT ([facility]) Name Value Range Interpretation Code Description Data Janeen rce(s) Supporting Document(s) Glucose, Fasting 92 mg/dL 70-100 MEDENT ([facility]i [facility]) Blood Urea Nitrogen 26 mg/dL 7-18 MEDENT ([facility]) Sodium Level 135 meq/L 136-145 MEDENT ([facility]) Glomerular Filtration Rate 57.6 MED ENT ([facility]) <content>Units are mL/min/1.73 m2</content>
<content></content>
<content>Chronic Kidney Disease Staging per NKF:</content>
<content></content>
<content>Stage I & II GFR >=60 Normal to Mildly Decreased</content>
<content>Stage III GFR 30- 59 Moderately Decreased</content>
<content>Stage IV GFR 15-29 Severely Decreased</content>
<content>Stage V GFR <15 Very Little GFR Left</content>
<content>ESRD GFR <15 on GEOCHEMISTRY TEACHER</content>
<content></content> Creatinine For GFR 1.29 mg/dL 0.70-1.30 MEDENT ([facility]) Potassium Serum 5.3 meq/L 3.5-5.1 MED[facility] ([facility]) Chloride Level 98 meq/L 98-107 MEDENT ([facility]) Carbon Dioxide Level 34 meq/L 21-32 MEDENT ([facility]) Calcium Level 9.0 mg/dL 8.8-10.2 MEDENT ([facility]) Anion Gap 3 meq/L 8-16 [facility] ID Date Data Source [id number] 04/14/2019 10:13:00 AM EST MEDENT ([facility]) Name Value Range Interpretation Code Description Data Janeen rce(s) Supporting Document(s) Magnesium [Mass/volume] in Serum or Plasma 2.1 mg/dL 1.8-2.4 MEDENT ([facility]) ID Date Data Source [id number] 04/14/2019 10:13:00 AM EST MEDENT ([facility]) Name Value Range Interpretation Code Description Data Janeen rce(s) Supporting Document(s) Glucose, Fasting 80 mg/dL 70-100 MEDENT ([facility]) Creatinine For GFR 0.98 mg/dL 0.70-1.30 MEDENT ([facility]) Blood Urea Nitrogen 21 mg/dL 7-18 MEDENT ([facility]) Glomerular Filtration Rate Laboratory test result MEDENT ([facility]) <content>Units are mL/min/1.73 m2</content>
<content></content>
<content>Chronic Kidney Disease Staging per NKF:</content>
<content></content>
<content>Stage I & II GFR >=60 Normal to Mildly Decreased</content>
<content>Stage III GFR 30- 59 Moderately Decreased</content>
<content>Stage IV GFR 15-29 Severely Decreased</content>
<content>Stage V GFR <15 Very Little GFR Left</content>
<content>ESRD GFR <15 on GEOCHEMISTRY TEACHER</content>
<content></content> Chloride Level 97 meq/L 98-107 MEDENT ([facility]) Sodium Level 139 meq/L 136-145 MEDENT ([facility]) Potassium Serum 3.7 meq/L 3.5-5.1 MED[facility] ([facility]) Anion Gap 6 meq/L 8-16 [facility] Calcium Level 8.7 mg/dL 8.8-10.2 MEDENT ([facility]) Carbon Dioxide Level 36 meq/L 21-32 MEDENT ([facility]) Procedure Social History Code Duration Value Status Description Data Source(s ) Smoking 05/08/2020 12:00:00 AM EST Current some day smoker com pleted Current some day smoker eCW1 ([facility]) Smoking 03/22/2020 12:00:00 AM EST Current some day smoker com pleted Current some day smoker eCW1 ([facility]) Smoking 03/22/2020 12:00:00 AM EST Current some day smoker com pleted Current some day smoker eCW1 ([facility]) Smoking 03/22/2020 12:00:00 AM EST Current some day smoker com pleted Current some day smoker eCW1 ([facility]) Smoking 03/22/2020 12:00:00 AM EST Current some day smoker com pleted Current some day smoker eCW1 ([facility]) Smoking 03/03/2020 12:00:00 AM EDT Current some day smoker com pleted Current some day smoker eCW1 ([facility]) Smoking 03/03/2020 12:00:00 AM EDT Current some day smoker com pleted Current some day smoker eCW1 ([facility]) Smoking 03/03/2020 12:00:00 AM EDT Current some day smoker com pleted Current some day smoker eCW1 ([facility]) Smoking 03/03/2020 12:00:00 AM EDT Current some day smoker com pleted Current some day smoker eCW1 ([facility]) Smoking 10/26/2019 12:00:00 AM EDT Current some day smoker com pleted Current some day smoker eCW1 ([facility]) Smoking 06/29/2019 12:00:00 AM EST Current some day smoker com pleted Current some day smoker eCW1 ([facility]) Smoking 06/29/2019 12:00:00 AM EST Current some day smoker com pleted Current some day smoker eCW1 ([facility]) Vital Signs ID Date Data Source UNK Name Value Range Interpretation Code Description Data Source(s) Diastolic blood pressure 78 mm[Hg] 78 mm[Hg] eCW1 ([facility]) Systolic blood pressure 126 mm[Hg] 126 mm[Hg] e CW1 ([facility]) Body temperature 97.7 [degF] 97.7 [degF] eCW1 ( [facility]) Respiratory rate 18 /min 18 /min eCW1 ([facility]) Heart rate 87 /min 87 /min eCW1 ([facility]) Body mass index (BMI) [Ratio] 24.07 kg/m2 24.07 kg/m2 [facility] ([facility]) Body height 69 [in_i] 69 [in_i] eCW1 ([facility]) Body weight 163 [lb_av] 163 [lb_av] eCW1 ([facility]) Respiratory rate 16 /min 16 /min MEDENT ( [facility]) Body mass index (BMI) [Ratio] 24.2 kg/m2 24.2 k g/m2 MEDENT ([facility]) Body height 69 [in_i] 69 [in_i] MEDENT ([facility]) 5'9" Body weight 164.00 [lb_av] 164.00 [lb_av] MEDEN T ([facility]) Diastolic blood pressure 78 mm[Hg] 78 mm[Hg] eCW1 ([facility]) Systolic blood pressure 130 mm[Hg] 130 mm[Hg] e CW1 ([facility]) Body temperature 98 [degF] 98 [degF] eCW1 ([facility]) Respiratory rate 18 /min 18 /min eCW1 ([facility]) Heart rate 85 /min 85 /min eCW1 ([facility]) Body mass index (BMI) [Ratio] 24.66 kg/m2 24.66 kg/m2 eCW1 ([facility]) Body height 69 [in_i] 69 [in_i] eCW1 ([facility]) Body weight 167 [lb_av] 167 [lb_av] eCW1 ([facility]) Diastolic blood pressure 68 mm[Hg] 68 mm[Hg] MEDENT ([facility]) sitting, regular cuff Systolic blood pressure 126 mm[Hg] 126 mm[Hg] M EDENT ([facility]) sitting, regular cuff Respiratory rate 16 /min 16 /min MEDENT ( [facility]) Heart rate 88 /min 88 /min MEDENT ([facility]) Regular Body mass index (BMI) [Ratio] 24.5 kg/m2 24.5 k g/m2 MEDENT ([facility]) Body height 69 [in_i] 69 [in_i] MEDENT ([facility]) 5'9" Body weight 166.00 [lb_av] 166.00 [lb_av] MEDEN T ([facility]) Diastolic blood pressure 68 mm[Hg] 68 mm[Hg] MEDENT ([facility]) sitting Systolic blood pressure 124 mm[Hg] 124 mm[Hg] M EDENT ([facility]) sitting Diastolic blood pressure 68 mm[Hg] 68 mm[Hg] MEDENT ([facility]) sitting, regular cuff Systolic blood pressure 126 mm[Hg] 126 mm[Hg] M EDENT ([facility]) sitting, regular cuff Respiratory rate 20 /min 20 /min MEDENT ( [facility]) Heart rate 92 /min 92 /min MEDENT ([facility]) Regular Body mass index (BMI) [Ratio] 24.4 kg/m2 24.4 k g/m2 MEDENT ([facility]) Body height 69 [in_i] 69 [in_i] [facility] 5'9" Body weight 165.00 [lb_av] 165.00 [lb_av] MEDEN T ([facility]) Diastolic blood pressure 64 mm[Hg] 64 mm[Hg] MEDENT ([facility]) sitting, regular cuff Systolic blood pressure 106 mm[Hg] 106 mm[Hg] M EDENT ([facility]) sitting, regular cuff Respiratory rate 20 /min 20 /min MEDENT ( [facility]) Heart rate 88 /min 88 /min MEDENT ([facility]) Regular Body mass index (BMI) [Ratio] 24.7 kg/m2 24.7 k g/m2 MEDENT ([facility]) Body height 69 [in_i] 69 [in_i] MEDENT ([facility]) 5'9" Body weight 167.00 [lb_av] 167.00 [lb_av] MEDEN T ([facility]) Diastolic blood pressure 72 mm[Hg] 72 mm[Hg] eCW1 ([facility]) Systolic blood pressure 120 mm[Hg] 120 mm[Hg] e CW1 ([facility]) Body temperature 97.2 [degF] 97.2 [degF] eCW1 ( [facility]) Respiratory rate 20 /min 20 /min eCW1 ([facility]) Heart rate 89 /min 89 /min eCW1 ([facility]) Body mass index (BMI) [Ratio] 22.98 kg/m2 22.98 kg/m2 eCW1 ([facility]) Body height 69 [in_us] 69 [in_us] eCW1 ([facility]) Body weight Measured 155.6 [lb_av] 155.6 [lb_av ] eCW1 ([facility]) Diastolic blood pressure 60 mm[Hg] 60 mm[Hg] MEDENT ([facility]) Sitting, regular cuff Systolic blood pressure 110 mm[Hg] 110 mm[Hg] M EDENT ([facility]) Sitting, regular cuff Respiratory rate 18 /min 18 /min MEDENT ( [facility]) Heart rate 88 /min 88 /min MEDENT ([facility]) Regular Body mass index (BMI) [Ratio] 23.0 kg/m2 23.0 k g/m2 MED[facility] ([facility]) Body height 69 [in_i] 69 [in_i] MEDENT ([facility]) 5'9" Body weight 156.00 [lb_av] 156.00 [lb_av] MEDEN T ([facility]) Diastolic blood pressure 70 mm[Hg] 70 mm[Hg] eCW1 ([facility]) Systolic blood pressure 116 mm[Hg] 116 mm[Hg] e CW1 ([facility]) Body temperature 97.8 [degF] 97.8 [degF] eCW1 ( [facility]) Respiratory rate 18 /min 18 /min eCW1 ([facility]) Heart rate 106 /min 106 /min eCW1 ([facility]) Body mass index (BMI) [Ratio] 22.65 kg/m2 22.65 kg/m2 eCW1 ([facility]) Body height 69 [in_us] 69 [in_us] eCW1 ([facility]) Body weight Measured 153.4 [lb_av] 153.4 [lb_av ] eCW1 ([facility]) ID Date Data Source [id number] 04/06/2020 09:59:[address] [facility] Name Value Range Interpretation Code Description Data Source(s) WEIGHT RECORDED 167.00 pounds 167.[address] [facility] Height [address] [facility] Patient Treatment Plan of Care Planned Activity Planned Date Details Description Data Source (s) Nebulizer - 03/24/2020 12:00:00 AM EST e CW1 ([facility]) Nebulizer - 03/24/2020 12:00:00 AM EST e CW1 ([facility]) Nebulizer - 03/24/2020 12:00:00 AM EST e CW1 ([facility]) Nebulizer - 03/24/2020 12:00:00 AM EST e CW1 ([facility]) Nebulizer/Tubing/Mouthpiece - 03/03/2020 12:00:00 AM EDT eCW1 ([facility]) Erythromycin 0.005 MG/MG Ophthalmic Ointment 03/03/2020 12:00:00 AM EDT eCW1 ([facility]) Erythromycin 0.005 MG/MG Ophthalmic Ointment 03/03/2020 12:00:00 AM EDT eCW1 ([facility]) Nebulizer/Tubing/Mouthpiece - 03/03/2020 12:00:00 AM EDT eCW1 ([facility]) Nebulizer/Tubing/Mouthpiece - 03/03/2020 12:00:00 AM EDT eCW1 ([facility]) Erythromycin 0.005 MG/MG Ophthalmic Ointment 03/03/2020 12:00:00 AM EDT eCW1 ([facility]) Nebulizer/Tubing/Mouthpiece - 03/03/2020 12:00:00 AM EDT eCW1 ([facility]) Erythromycin 0.005 MG/MG Ophthalmic Ointment 03/03/2020 12:00:00 AM EDT eCW1 ([facility]) Amiodarone HCl 200 MG 02/25/2020 01:00:00 AM EDT NETSMART ([facility]) Amiodarone HCl 200 MG 02/10/2020 01:00:00 AM EDT NETSMART ([facility]) Afrin 12 Hour 0.05 % 02/01/2020 01:00:00 AM EDT NETSMART ([facility]) Clotrimazole 1 % 02/01/2020 01:00:00 AM EDT NETSMART ([facility]) Oxygen 02/01/2020 01:00:00 AM EDT N ETSMART ([facility]) Sucralfate 1 GM 02/01/2020 01:00:00 AM EDT NETSMART ([facility]) Voltaren 1 % 12/02/2019 01:00:00 AM EDT N ETSMART ([facility]) PredniSONE 20 MG 11/28/2019 01:00:00 AM EDT NETSMART ([facility]) Chantix Continuing Month Marlon 1 MG 09/03/2019 12:00:00 AM EDT eCW1 ([facility]) Chantix Continuing Month Marlon 1 MG 09/03/2019 12:00:00 AM EDT eCW1 ([facility]) Chantix Continuing Month Marlon 1 MG 09/03/2019 12:00:00 AM EDT eCW1 ([facility]) Oxygen 07/09/2019 12:00:00 AM EST e CW1 ([facility]) Oxygen 07/09/2019 12:00:00 AM EST e CW1 ([facility]) Oxygen 07/09/2019 12:00:00 AM EST e CW1 ([facility]) Ofloxacin 3 MG/ML Ophthalmic Solution 06/29/2019 12:00:00 AM EST eCW1 ([facility]) Oxygen 06/29/2019 12:00:00 AM EST e CW1 ([facility]) Ofloxacin 3 MG/ML Ophthalmic Solution 06/29/2019 12:00:00 AM EST eCW1 ([facility]) Oxygen 06/29/2019 12:00:00 AM EST e CW1 ([facility]) Oxygen 06/29/2019 12:00:00 AM EST e CW1 ([facility]) Ofloxacin 3 MG/ML Ophthalmic Solution 06/29/2019 12:00:00 AM EST eCW1 ([facility]) Famotidine 40 MG Oral Tablet 05/28/2019 12:00:00 AM EST eCW1 ([facility]) Aleve 220 MG 05/21/2019 12:00:00 AM EST N ETSMART ([facility]) Chantix Continuing Month Marlon 1 MG 03/27/2019 12:00:00 AM EST eCW1 ([facility]) Chantix Starting Month Marlon 0.5 MG X 11 & 1 MG X 42 03/27/2019 12 :00:00 AM EST eCW1 ([facility]) Chantix Starting Month Marlon 0.5 MG X 11 & 1 MG X 42 11/25/2018 01 :00:00 AM EDT NETSMART ([facility] ) Aleve PM 220-25 MG 12/25/2017 01:00:00 AM EDT NETSMART ([facility]) Oxygen 07/06/2017 12:00:00 AM EST N ETSMART ([facility]) Alendronate Sodium 70 MG 04/26/2017 12:00:00 AM EST NETSMART ([facility]) Diclofenac Sodium 1 % 04/26/2017 12:00:00 AM EST NETSMART ([facility]) Ranitidine 04/26/2017 12:00:00 AM EST N ETSMART ([facility])
[2020-05-18] MEDS ORDERED: FOSA70TA PO (16:33)
[2020-05-18] MEDS ORDERED: ANOR1AER INH (16:33)
[2020-05-18] MEDS ORDERED: ASPI81CH33 PO (16:34)
[2020-05-18] MEDS ORDERED: CALC500T61 PO (16:35)
[2020-05-18] MEDS ORDERED: COLA100C5 PO (16:35)
[2020-05-18] MEDS ORDERED: SPIR-10 PO (16:38)
[2020-05-18] MEDS ORDERED: TORS20TA2 PO (16:40)
[2020-05-18] MEDS ORDERED: vitamin d (16:42)
[2020-05-18] MEDS ORDERED: PACE200T PO (16:45)
[2020-05-18 17:54] LABS: BASO # 0.1 10^3/uL (0.0-0.2); BASO % 0.8 % (0.0-1.0); EOS # 0.2 10^3/uL (0.0-0.5); EOS % 2.2 % (0.0-3.0); HEMATOCRIT 33.7 % (42.0-52.0); HEMOGLOBIN 10.2 g/dl (13.5-17.5); LYMPH % 9.7 % (24.0-44.0); MEAN CORPUSCULAR HEMOGLOBIN 27.9 pg (27.0-33.0); MEAN CORPUSCULAR HGB CONC 30.3 g/dl (32.0-36.5); MEAN CORPUSCULAR VOLUME 92.3 fl (80.0-96.0); MONO # 1.1 10^3/uL (0.0-0.8); NEUTROPHILS # 7.7 10^3/uL (1.5-8.5); NEUTROPHILS % 75.2 % (36.0-66.0); PLATELET COUNT, AUTOMATED 276 10^3/uL (150-450); RED BLOOD COUNT 3.65 10^6/uL (4.30-6.10); WHITE BLOOD COUNT 10.3 10^3/uL (4.0-10.0)
[2020-05-18 18:11] LABS: ERYTHROCYTE SEDIMENTATION RATE 34 mm/hr (0-20)
--- OUTSIDE RECORDS SUMMARY | 2020-05-18 18:23 | CCD ---
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 Public Health law. If you continue you may have access to information: Regarding HIV / AIDS; Provided by facilities licensed or operated by the [facility] Office of Mental Health; or Provided by the [facility] Office for People With Developmental Disabilities. If such information is present, then the following [facility] mandated warning applies: This information has been [...] law may result in a fine or snf sentence or both. A general authorization for the release of medical or other information is NOT sufficient authorization for further disc losure. Allergies and Adverse Reactions Type Description Substance Reaction Status Data Source(s ) ENVIRONMENTAL LATEX LATEX [facility] CLASS SULFA (sulfonamide) SULFA (sulfonamide) [facility] Drug allergy Latex Gloves Drug allergy rash, hives head to toe Activ e [facility] Drug allergy Nicoderm CQ Nicotine Rash Active eCW1 ([facility] hospital) Drug allergy Percocet Acetaminophen / Oxycodone hallucinations Act jarod eCW1 ([facility]) Vicodin Vicodin Vicodin altered mental status Active eC W1 ([facility]) Shellfish Shellfish Shellfish Rash/itching Active eCW1 (Critical [facility] hospital) Latex - Shellfish -Sulfa Drugs Latex - Shellfish -Sulfa Drug s Latex - Shellfish -Sulfa Drugs active NETSMART ([facility]) Vicodin Vicodin Acetaminophen 300 MG / Hydrocodone Bitartrate 5 MG Oral Tablet [Vicodin] altered mental status Active eCW1 ([facility] hospital) Shellfish Shellfish Shellfish Rash/itching Active eCW1 (Critical [facility] hospital) Family History Family Member Name Family Member Gender Family Member Status Date o f Status Description Data Source(s) Unknown Unknown Problem MEDENT ([facility]) Unknown Unknown Problem MEDENT ([facility]) Encounters Encounter Providers Location Date Indications Data Source(s ) Office Visit Attender: Arpan WILD Physical Therapy 02:30:00 PM EST MEDENT ([facility]) Unknown [address] [facility] [address] 04/05/2020 12:00:00 AM EST eCW1 (Critical [facility] hospital) Outpatient Attender: Octavio Tai MD Physical Therapy 03/27/2020 0 8:35:00 AM EST MEDENT ([facility]) Unknown [address] [facility] [address] 03/24/2020 12:00:00 AM EST eCW1 (Critical access hospital) Office Visit, Est Pt., Level 3 [address] [place] [address] 03/22/2020 12:00:00 AM EST eCW1 ([facility]) Unknown [address] [facility] [address] 03/15/2020 12:00:00 AM EST eCW1 (Critical access hospital) Outpatient Attender: CARLOS CALDERON MD 03/11/2020 07:11:51 PM EST [facility] [place] [facility] ( in Healthcare facility) Attender: SABINA CALDERON MDAdmitter: CARLOS CALDERON MD 03/11/2020 01:58:00 PM EST - 03/13/2020 02:37:00 PM EST [facility] Outpatient Attender: CARLOS CALDERON MDAdmitter: CARLOS CALDERON MD 03/11/2020 01:58:00 PM EST - 03/13/2020 02:37:00 PM EST RETAINED LENS LEFT EYE [facility] RETAINED LENS LEFT EYE Patient discharged. Outpatient Attender: CARLOS CALDERON MD 03/11/2020 01:58:00 PM [facility] Outpatient Attender: Yuliet Goss MDConsultant: PCP KINJAL 03/11/2020 10:42:44 AM EST - 03/14/2020 01:39:00 PM EST [facility] Patient discharged. Outpatient Attender: Margarette WILD Main Office 03/10/2020 02:00:00 PM EST MEDENT ([facility]) [place] [address] [facility] [address] 03/10/2020 12:00:00 AM EST eCW1 [facility] Outpatient Attender: Yuliet Goss MDConsultant: PCP NO 03/09/2020 08:30:00 AM EST - 03/09/2020 11:10:00 AM EST [facility] Patient discharged. [place] [address] [facility] [address] 03/09/2020 12:00:00 AM EST eCW1 ([facility]) [place] [address] [facility] [address] 03/07/2020 12:00:00 AM EST eCW1 ([facility] Outpatient Attender: Yuliet Goss MDConsultant: PCP NO 03/03/2020 10:57:11 AM EDT - 03/08/2020 12:00:00 PM EST [facility] Patient discharged. Outpatient [address] [facility] [address] 03/03/2020 12:00:00 AM EDT eCW1 ([facility] [place] [address] [facility] [address] 03/03/2020 12:00:00 AM EDT eCW1 ([facility]) Outpatient Attender: Margarette WILD Main Office 02/24/2020 03:15:00 PM EDT MEDENT ([facility]) [place] [address] [facility] [address] 02/05/2020 12:00:00 AM EDT eCW1 [facility]) Office Visit Attender: SOLOMON NELSON MD Main Office 02/04/2020 12:27:0 0 PM EDT MEDENT ([facility]) Outpatient Attender: Margarette WILD Main Office 01/26/2020 01:30:00 PM EDT MEDENT ([facility]) Office Visit Attender: SOLOMON NELSON MD Main Office 01/05/2020 10:20:0 0 AM EDT MEDENT ([facility]) Outpatient Attender: Yuliet Goss MDConsultant: PCP NO 12/15/2019 12:47:18 PM EDT - 12/18/2019 02:12:00 PM EDT [facility] Patient discharged. Outpatient Attender: Yuliet Goss MDConsultant: PCP NO 12/14/2019 08:16:02 AM EDT - 12/16/2019 02:13:00 PM EDT [facility] Patient discharged. Office Visit Attender: SOLOMON NELSON MD Main Office 12/03/2019 02:04:0 0 PM EDT MEDENT ([facility]) Office Visit Attender: SOLOMON NELSON MD Main Office 10/28/2019 12:44:0 0 PM EDT MEDENT ([facility]) [facility] [address] [facility] [address] 10/26/2019 12:00:00 AM EDT eCW1 ([facility]) Outpatient Attender: Margarette WILD Main Office 10/22/2019 01:00:00 PM EDT MEDENT ([facility]) Outpatient Referrer: Margarette WILD 10/09/2019 05:13:00 A M EDT [facility] Unknown [address] [facility] [address] 10/08/2019 12:00:00 AM EDT eCW1 ([facility]) [place] [address] [facility] [address] 10/08/2019 12:00:00 AM EDT eCW1 ([facility]) [facility] [place] [address] [facility] [address] 10/01/2019 12:00:00 AM EDT eCW1 ([facility]) [facility] [place] [address] [facility] [address] 09/03/2019 12:00:00 AM EDT eCW1 ([facility] [address] [facility] [address] 08/04/2019 12:00:00 AM EDT eCW1 ([facility]) [address] [address] 08/04/2019 12:00:00 AM EDT eCW1 ([facility]) [address] [place] [address] 07/09/2019 12:00:00 AM EST eCW1 ([facility]) [address] [address] 07/07/2019 12:00:00 AM EST eCW1 ([facility]) [address] [address] 07/06/2019 12:00:00 AM EST eCW1 ([facility]) Office Visit Attender: SOLOMON NELSON MD Main Office 07/01/2019 07:55:0 0 AM EST MEDENT ([facility]) [address] [address] 06/29/2019 12:00:00 AM EST eCW1 ([facility]) 06/10/2019 12:00:00 AM EST - 020 05:18:38 PM EDT NETSMART ([facility]) [address] [address] 05/27/2019 12:00:00 AM EST eCW1 ([facility] [address] [address] 05/14/2019 12:00:00 AM EST eCW1 ([facility]) [address] [address] 05/12/2019 12:00:00 AM EST eCW1 ([facility]) [address] [address] 04/21/2019 12:00:00 AM EST eCW1 (Critical access hospital) Outpatient Attender: Margarette WILD Main Office 04/15/2019 08:15:00 AM EST MEDENT ([facility]) [facility] [address] [facility] [address] 04/14/2019 12:00:00 AM EST eCW1 (Critical access hospital) [facility] [place] [address] [facility] [address] 03/31/2019 12:00:00 AM EST eCW1 (Critical access hospital) [facility] [place] [address] [facility] [place] [address] 03/31/2019 12:00:00 AM EST eCW1 (Critical access hospital) [facility] [place] [address] [facility] [address] 03/27/2019 12:00:00 AM EST eCW1 (Critical access hospital) [facility] [place] [address] [facility] [place] [address] 03/23/2019 12:00:00 AM EST eCW1 (Critical [facility] hospital) Immunizations Vaccine Date Status Description Data Source(s) influenza, recombinant, quadrIvalent,injectable, prese rvative free 03/03/2020 02:38:00 PM EDT completed eCW1 ([facility]) influenza, recombinant, quadrIvalent,injectable, prese rvative free 03/03/2020 02:38:00 PM EDT completed eCW1 ([facility]) influenza, recombinant, quadrIvalent,injectable, prese rvative free 03/03/2020 02:38:00 PM EDT completed eCW1 ([facility]) influenza, recombinant, quadrIvalent,injectable, prese rvative free 03/03/2020 02:38:00 PM EDT completed eCW1 ([facility]) influenza, recombinant, quadrIvalent,injectable, prese rvative free 03/03/2020 02:38:00 PM EDT completed eCW1 ([facility]) influenza, recombinant, quadrIvalent,injectable, prese rvative free 03/03/2020 02:38:00 PM EDT completed eCW1 ([facility]) influenza, recombinant, quadrIvalent,injectable, prese rvative free 03/03/2020 02:38:00 PM EDT completed eCW1 ([facility]) influenza, recombinant, quadrIvalent,injectable, prese rvative free 03/03/2020 02:38:00 PM EDT completed eCW1 ([facility]) influenza, recombinant, quadrIvalent,injectable, prese rvative free 03/03/2020 02:38:00 PM EDT completed eCW1 ([facility]) influenza, recombinant, quadrIvalent,injectable, prese rvative free 03/27/2019 11:06:00 AM EST completed eCW1 ([facility]) influenza, recombinant, quadrIvalent,injectable, prese rvative free 03/27/2019 11:06:00 AM EST completed eCW1 ([facility]) influenza, recombinant, quadrIvalent,injectable, prese rvative free 03/27/2019 11:06:00 AM EST completed eCW1 ([facility]) influenza, recombinant, quadrIvalent,injectable, prese rvative free 03/27/2019 11:06:00 AM EST completed eCW1 ([facility]) influenza, recombinant, quadrIvalent,injectable, prese rvative free 03/27/2019 11:06:00 AM EST completed eCW1 ([facility]) influenza, recombinant, quadrIvalent,injectable, prese rvative free 03/27/2019 11:06:00 AM EST completed eCW1 ([facility]) influenza, recombinant, quadrIvalent,injectable, prese rvative free 03/27/2019 11:06:00 AM EST completed eCW1 ([facility]) influenza, recombinant, quadrIvalent,injectable, prese rvative free 03/27/2019 11:06:00 AM EST completed eCW1 ([facility]) influenza, recombinant, quadrIvalent,injectable, prese rvative free 03/27/2019 11:06:00 AM EST completed eCW1 ([facility]) influenza, recombinant, quadrIvalent,injectable, prese rvative free 03/27/2019 11:06:00 AM EST completed eCW1 ([facility]) influenza, recombinant, quadrIvalent,injectable, prese rvative free 03/27/2019 11:06:00 AM EST completed eCW1 ([facility]) influenza, recombinant, quadrIvalent,injectable, prese rvative free 03/27/2019 11:06:00 AM EST completed eCW1 ([facility]) influenza, recombinant, quadrIvalent,injectable, prese rvative free 03/27/2019 11:06:00 AM EST completed eCW1 ([facility]) Medications Medication Brand Name Start Date Product Form Dose Route Admi nistrative Instructions Pharmacy Instructions Status Indications Reaction Description Data Source(s) Nebulizer - Nebulizer - 03/24/2020 12:00:00 AM EST active Nebulizer - eCW[facility] ([facility]) Nebulizer - Nebulizer - 03/24/2020 12:00:00 AM EST active Nebulizer - eCW1 ([facility]) Nebulizer - Nebulizer - 03/24/2020 12:00:00 AM EST active Nebulizer - eCW1 ([facility]) Nebulizer - Nebulizer - 03/24/2020 12:00:00 AM EST active Nebulizer - eCW1 ([facility]) Amiodarone hydrochloride 200 MG Oral Tablet Amiodarone HCL 03/10/2020 12:00:00 AM EST ORAL active [facility] Nebulizer/Tubing/Mouthpiece - Nebulizer/Tubing/Mouthpiece - 03/03/2020 12:00:00 AM EDT active Nebulizer/Tubing/ Mouthpiece - eCW1 ([facility]) Nebulizer/Tubing/Mouthpiece - Nebulizer/Tubing/Mouthpiece - 03/03/2020 12:00:00 AM EDT active Nebulizer/Tubing/ Mouthpiece - eCW1 ([facility]) Nebulizer/Tubing/Mouthpiece - Nebulizer/Tubing/Mouthpiece - 03/03/2020 12:00:00 AM EDT active Nebulizer/Tubing/ Mouthpiece - eCW1 ([facility]) Nebulizer/Tubing/Mouthpiece - Nebulizer/Tubing/Mouthpiece - 03/03/2020 12:00:00 AM EDT active Nebulizer/Tubing/ Mouthpiece - eCW1 ([facility]) Erythromycin 0.005 MG/MG Ophthalmic Ointment Erythromy juan c 5 MG/GM Erythromycin 5 MG/GM 03/03/2020 12:00:00 AM EDT active Erythromycin 5 MG/GM eCW1 ([facility]) Nebulizer/Tubing/Mouthpiece - Nebulizer/Tubing/Mouthpiece - 03/03/2020 12:00:00 AM EDT active Nebulizer/Tubing/ Mouthpiece - eCW1 ([facility]) Erythromycin 0.005 MG/MG Ophthalmic Ointment Erythromy juan c 5 MG/GM Erythromycin 5 MG/GM 03/03/2020 12:00:00 AM EDT active Erythromycin 5 MG/GM eCW1 ([facility]) Nebulizer/Tubing/Mouthpiece - Nebulizer/Tubing/Mouthpiece - 03/03/2020 12:00:00 AM EDT active Nebulizer/Tubing/ Mouthpiece - eCW1 ([facility]) Nebulizer/Tubing/Mouthpiece - Nebulizer/Tubing/Mouthpiece - 03/03/2020 12:00:00 AM EDT active Nebulizer/Tubing/ Mouthpiece - eCW1 ([facility]) Erythromycin 0.005 MG/MG Ophthalmic Ointment Erythromy juan c 5 MG/GM Erythromycin 5 MG/GM 03/03/2020 12:00:00 AM EDT active Erythromycin 5 MG/GM eCW1 ([facility]) Erythromycin 0.005 MG/MG Ophthalmic Ointment Erythromy juan c 5 MG/GM Erythromycin 5 MG/GM 03/03/2020 12:00:00 AM EDT active Erythromycin 5 MG/GM eCW1 ([facility]) Erythromycin 0.005 MG/MG Ophthalmic Ointment Erythromy juan c 5 MG/GM Erythromycin 5 MG/GM 03/03/2020 12:00:00 AM EDT active Erythromycin 5 MG/GM eCW1 ([facility]) Erythromycin 0.005 MG/MG Ophthalmic Ointment Erythromy juan c 5 MG/GM Erythromycin 5 MG/GM 03/03/2020 12:00:00 AM EDT active Erythromycin 5 MG/GM eCW1 ([facility]) Nebulizer/Tubing/Mouthpiece - Nebulizer/Tubing/Mouthpiece - 03/03/2020 12:00:00 AM EDT active Nebulizer/Tubing/ Mouthpiece - eCW1 ([facility]) Erythromycin 0.005 MG/MG Ophthalmic Ointment Erythromy juan c 5 MG/GM Erythromycin 5 MG/GM 03/03/2020 12:00:00 AM EDT active Erythromycin 5 MG/GM eCW1 ([facility]) Nebulizer/Tubing/Mouthpiece - Nebulizer/Tubing/Mouthpiece - 03/03/2020 12:00:00 AM EDT active Nebulizer/Tubing/ Mouthpiece - eCW1 ([facility]) Erythromycin 0.005 MG/MG Ophthalmic Ointment Erythromy juan c 5 MG/GM Erythromycin 5 MG/GM 03/03/2020 12:00:00 AM EDT active Erythromycin 5 MG/GM eCW1 ([facility]) Erythromycin 0.005 MG/MG Ophthalmic Ointment Erythromy juan c 5 MG/GM Erythromycin 5 MG/GM 03/03/2020 12:00:00 AM EDT active Erythromycin 5 MG/GM eCW1 ([facility]) Amiodarone HCl 200 MG Amiodarone HCl 02/25/2020 01:00:00 AM EDT 200.0 {mg} completed NETSMART ([facility]) Amiodarone hydrochloride 200 MG Oral Tablet Amiodarone HCL 02/24/2020 12:00:00 AM EDT ORAL completed MEDENT ([facility]) Calcium Carbonate 500 MG Chewable Tablet [Tums] Tums 02/23/2020 12:00:00 AM EDT ORAL active MEDENT ( [facility]) Amiodarone HCl 200 MG Amiodarone HCl 02/10/2020 01:00:00 AM EDT completed NETSMART ([facility]) Amiodarone hydrochloride 200 MG Oral Tablet Amiodarone HCL 02/05/2020 12:00:00 AM EDT ORAL completed MEDENT ([facility]) Afrin 12 Hour 0.05 % Afrin 12 Hour 02/01/2020 01:00:00 AM EDT completed NETSMART ([facility]) Clotrimazole 1 % Clotrimazole 02/01/2020 01:00:00 AM EDT completed NETSMART ([facility]) Oxygen Oxygen 02/01/2020 01:00:00 AM EDT 3.0 {L} comple torrey NETSMART ([facility]) Sucralfate 1 GM Sucralfate 02/01/2020 01:00:00 AM EDT completed NETSMART ([facility]) Famotidine 40 MG Oral Tablet Famotidine 01/25/2020 12:00:00 AM EDT ORAL active MEDENT ([facility]) Diclofenac Sodium 0.01 MG/MG Topical Gel Voltaren 01/25/2020 12 :00:00 AM EDT active MEDENT ([facility]) Voltaren 1 % Voltaren 12/02/2019 01:00:00 AM EDT c ompleted NETSMART ([facility]) PredniSONE 20 MG PredniSONE 11/28/2019 01:00:00 AM EDT 3.0 {tabl et} completed NETSMART ([facility]) Chantix Continuing Month Marlon 1 MG Chantix Continuing Month P ak 1 MG 09/03/2019 12:00:00 AM EDT suspended Chant ix Continuing Month Marlon 1 MG eCW1 ([facility]) Chantix Continuing Month Marlon 1 MG Chantix Continuing Month P ak 1 MG 09/03/2019 12:00:00 AM EDT active Chantix Continuing Month Marlon 1 MG eCW1 ([facility]) Chantix Continuing Month Marlon 1 MG Chantix Continuing Month P ak 1 MG 09/03/2019 12:00:00 AM EDT suspended Chant ix Continuing Month Marlon 1 MG eCW1 ([facility]) Chantix Continuing Month Marlon 1 MG Chantix Continuing Month P ak 1 MG 09/03/2019 12:00:00 AM EDT active Chantix Continuing Month Marlon 1 MG eCW1 ([facility]) Chantix Continuing Month Marlon 1 MG Chantix Continuing Month P ak 1 MG 09/03/2019 12:00:00 AM EDT suspended Chant ix Continuing Month Marlon 1 MG eCW1 ([facility]) Chantix Continuing Month Marlon 1 MG Chantix Continuing Month P ak 1 MG 09/03/2019 12:00:00 AM EDT suspended Chant ix Continuing Month Marlon 1 MG eCW1 ([facility]) Chantix Continuing Month Marlon 1 MG Chantix Continuing Month P ak 1 MG 09/03/2019 12:00:00 AM EDT active as direc torrey eCW1 ([facility]) Chantix Continuing Month Marlon 1 MG Chantix Continuing Month P ak 1 MG 09/03/2019 12:00:00 AM EDT suspended Chant ix Continuing Month Marlon 1 MG eCW1 ([facility]) Chantix Continuing Month Marlon 1 MG Chantix Continuing Month P ak 1 MG 09/03/2019 12:00:00 AM EDT suspended Chant ix Continuing Month Marlon 1 MG eCW1 ([facility]) Chantix Continuing Month Marlon 1 MG Chantix Continuing Month P ak 1 MG 09/03/2019 12:00:00 AM EDT suspended Chant ix Continuing Month Marlon 1 MG eCW1 ([facility]) Chantix Continuing Month Marlon 1 MG Chantix Continuing Month P ak 1 MG 09/03/2019 12:00:00 AM EDT suspended Chant ix Continuing Month Marlon 1 MG eCW1 ([facility]) Chantix Continuing Month Marlon 1 MG Chantix Continuing Month P ak 1 MG 09/03/2019 12:00:00 AM EDT suspended Chant ix Continuing Month Marlon 1 MG eCW1 ([facility]) Chantix Continuing Month Marlon 1 MG Chantix Continuing Month P ak 1 MG 09/03/2019 12:00:00 AM EDT suspended Chant ix Continuing Month Marlon 1 MG eCW1 ([facility]) Oxygen UNK 07/09/2019 12:00:00 AM EST active Oxygen eCW1 ([facility]) Oxygen UNK 07/09/2019 12:00:00 AM EST active Oxygen eCW1 ([facility]) Oxygen UNK 07/09/2019 12:00:00 AM EST active Oxygen eCW1 ([facility]) Oxygen UNK 07/09/2019 12:00:00 AM EST active Oxygen eCW1 ([facility]) Oxygen UNK 07/09/2019 12:00:00 AM EST active Oxygen eCW1 ([facility]) Oxygen UNK 07/09/2019 12:00:00 AM EST active 2LPM eCW1 ([facility]) Oxygen UNK 07/09/2019 12:00:00 AM EST active Oxygen eCW1 ([facility]) Oxygen UNK 07/09/2019 12:00:00 AM EST active Oxygen eCW1 ([facility]) Oxygen UNK 07/09/2019 12:00:00 AM EST active Oxygen eCW1 ([facility]) Oxygen UNK 07/09/2019 12:00:00 AM EST active Oxygen eCW1 ([facility]) Oxygen UNK 07/09/2019 12:00:00 AM EST active Oxygen eCW1 ([facility]) Oxygen UNK 07/09/2019 12:00:00 AM EST active Oxygen eCW1 ([facility]) Oxygen UNK 07/09/2019 12:00:00 AM EST active Oxygen eCW1 ([facility]) Ofloxacin 3 MG/ML Ophthalmic Solution Ofloxacin 0.3 % Ofloxa juan c 0.3 % 06/29/2019 12:00:00 AM EST 1.0 {drop_into_affected_eye} oneill spended Ofloxacin 0.3 % eCW1 ([facility]) Oxygen UNK 06/29/2019 12:00:00 AM EST active Oxygen eCW1 ([facility]) Oxygen UNK 06/29/2019 12:00:00 AM EST active Oxygen eCW1 ([facility]) Oxygen UNK 06/29/2019 12:00:00 AM EST active Oxygen eCW1 ([facility]) Oxygen UNK 06/29/2019 12:00:00 AM EST active Oxygen eCW1 ([facility]) Ofloxacin 3 MG/ML Ophthalmic Solution Ofloxacin 0.3 % Ofloxa juan c 0.3 % 06/29/2019 12:00:00 AM EST 1.0 {drop_into_affected_eye} oneill spended Ofloxacin 0.3 % eCW1 ([facility]) Oxygen UNK 06/29/2019 12:00:00 AM EST acti ve continuous and portable eCW1 ([facility]) Ofloxacin 3 MG/ML Ophthalmic Solution Ofloxacin 0.3 % Ofloxa juan c 0.3 % 06/29/2019 12:00:00 AM EST 1.0 {drop_into_affected_eye} oneill spended Ofloxacin 0.3 % eCW1 ([facility]) Oxygen UNK 06/29/2019 12:00:00 AM EST active Oxygen eCW1 ([facility]) Ofloxacin 3 MG/ML Ophthalmic Solution Ofloxacin 0.3 % Ofloxa juan c 0.3 % 06/29/2019 12:00:00 AM EST 1.0 {drop_into_affected_eye} ac tive Ofloxacin 0.3 % eCW1 ([facility]) Ofloxacin 3 MG/ML Ophthalmic Solution Ofloxacin 0.3 % Ofloxa juan c 0.3 % 06/29/2019 12:00:00 AM EST active 1 drop into affected eye eCW1 ([facility]) Oxygen UNK 06/29/2019 12:00:00 AM EST active Oxygen eCW1 ([facility]) Ofloxacin 3 MG/ML Ophthalmic Solution Ofloxacin 0.3 % Ofloxa juan c 0.3 % 06/29/2019 12:00:00 AM EST 1.0 {drop_into_affected_eye} oneill spended Ofloxacin 0.3 % eCW1 ([facility]) Oxygen UNK 06/29/2019 12:00:00 AM EST active Oxygen eCW1 ([facility]) Ofloxacin 3 MG/ML Ophthalmic Solution Ofloxacin 0.3 % Ofloxa juan c 0.3 % 06/29/2019 12:00:00 AM EST 1.0 {drop_into_affected_eye} oneill spended Ofloxacin 0.3 % eCW1 ([facility]) Ofloxacin 3 MG/ML Ophthalmic Solution Ofloxacin 0.3 % Ofloxa juan c 0.3 % 06/29/2019 12:00:00 AM EST 1.0 {drop_into_affected_eye} oneill spended Ofloxacin 0.3 % eCW1 [facility] Oxygen UNK 06/29/2019 12:00:00 AM EST active Oxygen eCW1 [facility]) Ofloxacin 3 MG/ML Ophthalmic Solution Ofloxacin 0.3 % Ofloxa juan c 0.3 % 06/29/2019 12:00:00 AM EST 1.0 {drop_into_affected_eye} oneill spended Ofloxacin 0.3 % eCW1 [facility] Ofloxacin 3 MG/ML Ophthalmic Solution Ofloxacin 0.3 % Ofloxa juan c 0.3 % 06/29/2019 12:00:00 AM EST 1.0 {drop_into_affected_eye} oneill spended Ofloxacin 0.3 % eCW1 [facility]) Oxygen UNK 06/29/2019 12:00:00 AM EST active Oxygen eCW1 [facility]) Ofloxacin 3 MG/ML Ophthalmic Solution Ofloxacin 0.3 % Ofloxa juan c 0.3 % 06/29/2019 12:00:00 AM EST 1.0 {drop_into_affected_eye} ac tive Ofloxacin 0.3 % eCW1 [facility]) Ofloxacin 3 MG/ML Ophthalmic Solution Ofloxacin 0.3 % Ofloxa juan c 0.3 % 06/29/2019 12:00:00 AM EST 1.0 {drop_into_affected_eye} oneill spended Ofloxacin 0.3 % eCW1 [facility]) Ofloxacin 3 MG/ML Ophthalmic Solution Ofloxacin 0.3 % Ofloxa juan c 0.3 % 06/29/2019 12:00:00 AM EST 1.0 {drop_into_affected_eye} oneill spended Ofloxacin 0.3 % eCW1 [facility]) Oxygen UNK 06/29/2019 12:00:00 AM EST active Oxygen eCW1 ([facility]) Oxygen UNK 06/29/2019 12:00:00 AM EST active Oxygen eCW1 ([facility]) Oxygen UNK 06/29/2019 12:00:00 AM EST active Oxygen eCW1 [facility]) Famotidine 40 MG Oral Tablet Famotidine 40 MG 05/28/2019 12:00:00 A M EST 1.0 {tablet_at_bedtime} suspended Famotidine 40 MG eCW1 [facility]) Famotidine 40 MG Oral Tablet Famotidine 40 MG 05/28/2019 12:00:00 A M EST 1.0 {tablet_at_bedtime} suspended Famotidine 40 MG eCW1 [facility]) Famotidine 40 MG Oral Tablet Famotidine 40 MG 05/28/2019 12:00:00 A M EST 1.0 {tablet_at_bedtime} suspended Famotidine 40 MG eCW1 [facility]) Famotidine 40 MG Oral Tablet Famotidine 40 MG 05/28/2019 12:00:00 A M EST 1.0 {tablet_at_bedtime} suspended Famotidine 40 MG eCW1 [facility]) Famotidine 40 MG Oral Tablet Famotidine 40 MG 05/28/2019 12:00:00 A M EST 1.0 {tablet_at_bedtime} suspended Famotidine 40 MG eCW1 [facility]) Famotidine 40 MG Oral Tablet Famotidine 40 MG 05/28/2019 12:00:00 A M EST 1.0 {tablet_at_bedtime} suspended Famotidine 40 MG eCW1 [facility]) Famotidine 40 MG Oral Tablet Famotidine 40 MG 05/28/2019 12:00:[address] suspended 1 tablet at bedtime eCW1 ([facility]) Famotidine 40 MG Oral Tablet Famotidine 40 MG 05/28/2019 12:00:00 A M EST 1.0 {tablet_at_bedtime} suspended Famotidine 40 MG eCW1 [facility]) Famotidine 40 MG Oral Tablet Famotidine 40 MG 05/28/2019 12:00:00 A M EST 1.0 {tablet_at_bedtime} suspended Famotidine 40 MG eCW1 [facility]) Famotidine 40 MG Oral Tablet Famotidine 40 MG 05/28/2019 12:00:00 A M EST 1.0 {tablet_at_bedtime} suspended Famotidine 40 MG eCW1 [facility]) Famotidine 40 MG Oral Tablet Famotidine 40 MG 05/28/2019 12:00:00 A M EST 1.0 {tablet_at_bedtime} suspended Famotidine 40 MG eCW1 [facility]) Famotidine 40 MG Oral Tablet Famotidine 40 MG 05/28/2019 12:00:[address] active 1 tablet at bedtime eCW1 ([facility]) Famotidine 40 MG Oral Tablet Famotidine 40 MG 05/28/2019 12:00:00 A M EST 1.0 {tablet_at_bedtime} suspended Famotidine 40 MG eCW1 [facility]) Famotidine 40 MG Oral Tablet Famotidine 40 MG 05/28/2019 12:00:00 A M EST 1.0 {tablet_at_bedtime} suspended Famotidine 40 MG eCW1 [facility]) Aleve 220 MG Aleve 05/21/2019 12:00:00 AM EST comp leted NETSMART ([facility]) varenicline 1 MG Oral Tablet [Chantix] Chantix 04/14/2019 12:00:00 AM EST ORAL active MEDENT ([facility]) Chantix Starting Month Marlon 0.5 MG X 11 & 1 MG X 42 Ruchi ntix Starting Month Marlon 0.5 MG X 11 & 1 MG X 42 03/27/2019 12:00:00 AM EST suspended Chantix Starting Month Marlon 0.5 MG X 11 & 1 MG X 42 eCW1 [facility]) Chantix Continuing Month Marlon 1 MG Chantix Continuing Month P ak 1 MG 03/27/2019 12:00:00 AM EST suspended 1 tab let eCW1 ([facility]) Chantix Continuing Month Marlon 1 MG Chantix Continuing Month P ak 1 MG 03/27/2019 12:00:00 AM EST 1.0 {tablet} suspended Chantix Continuing Month Marlon 1 MG eCW1 [facility]) Chantix Starting Month Marlon 0.5 MG X 11 & 1 MG X 42 Ruchi ntix Starting Month Marlon 0.5 MG X 11 & 1 MG X 42 03/27/2019 12:00:00 AM EST suspended Chantix Starting Month Marlon 0.5 MG X 11 & 1 MG X 42 eCW1 [facility]) Chantix Continuing Month Marlon 1 MG Chantix Continuing Month P ak 1 MG 03/27/2019 12:00:00 AM EST 1.0 {tablet} suspended Chantix Continuing Month Marlon 1 MG eCW1 [facility]) Chantix Starting Month Marlon 0.5 MG X 11 & 1 MG X 42 Ruchi ntix Starting Month Marlon 0.5 MG X 11 & 1 MG X 42 03/27/2019 12:00:00 AM EST active as directed eCW1 ([facility]) Chantix Continuing Month Marlon 1 MG Chantix Continuing Month P ak 1 MG 03/27/2019 12:00:00 AM EST 1.0 {tablet} suspended Chantix Continuing Month Marlon 1 MG eCW1 [facility]) Chantix Starting Month Marlon 0.5 MG X 11 & 1 MG X 42 Ruchi ntix Starting Month Marlon 0.5 MG X 11 & 1 MG X 42 03/27/2019 12:00:00 AM EST suspended Chantix Starting Month Marlon 0.5 MG X 11 & 1 MG X 42 eCW1 [facility]) Chantix Starting Month Marlon 0.5 MG X 11 & 1 MG X 42 Ruchi ntix Starting Month Marlon 0.5 MG X 11 & 1 MG X 42 03/27/2019 12:00:00 AM EST suspended Chantix Starting Month Marlon 0.5 MG X 11 & 1 MG X 42 eCW1 [facility]) Chantix Starting Month Marlon 0.5 MG X 11 & 1 MG X 42 Ruchi ntix Starting Month Marlon 0.5 MG X 11 & 1 MG X 42 03/27/2019 12:00:00 AM EST suspended Chantix Starting Month Marlon 0.5 MG X 11 & 1 MG X 42 eCW1 [facility]) Chantix Continuing Month Marlon 1 MG Chantix Continuing Month P ak 1 MG 03/27/2019 12:00:00 AM EST active 1 tablet eCW1 ([facility]) Chantix Continuing Month Marlon 1 MG Chantix Continuing Month P ak 1 MG 03/27/2019 12:00:00 AM EST 1.0 {tablet} suspended Chantix Continuing Month Marlon 1 MG eCW1 ([facility]) Chantix Continuing Month Marlon 1 MG Chantix Continuing Month P ak 1 MG 03/27/2019 12:00:00 AM EST 1.0 {tablet} suspended Chantix Continuing Month Marlon 1 MG eCW1 [facility]) Chantix Starting Month Marlon 0.5 MG X 11 & 1 MG X 42 Ruchi ntix Starting Month Marlon 0.5 MG X 11 & 1 MG X 42 03/27/2019 12:00:00 AM EST suspended Chantix Starting Month Marlon 0.5 MG X 11 & 1 MG X 42 eCW1 [facility]) Chantix Starting Month Marlon 0.5 MG X 11 & 1 MG X 42 Ruchi ntix Starting Month Marlon 0.5 MG X 11 & 1 MG X 42 03/27/2019 12:00:00 AM EST suspended Chantix Starting Month Marlon 0.5 MG X 11 & 1 MG X 42 eCW1 [facility]) Chantix Starting Month Marlon 0.5 MG X 11 & 1 MG X 42 Ruchi ntix Starting Month Marlon 0.5 MG X 11 & 1 MG X 42 03/27/2019 12:00:00 AM EST suspended Chantix Starting Month Marlon 0.5 MG X 11 & 1 MG X 42 eCW1 [facility]) Chantix Starting Month Marlon 0.5 MG X 11 & 1 MG X 42 Ruchi ntix Starting Month Marlon 0.5 MG X 11 & 1 MG X 42 03/27/2019 12:00:00 AM EST suspended Chantix Starting Month Marlon 0.5 MG X 11 & 1 MG X 42 eCW1 [facility]) Chantix Starting Month Marlon 0.5 MG X 11 & 1 MG X 42 Ruchi ntix Starting Month Marlon 0.5 MG X 11 & 1 MG X 42 03/27/2019 12:00:00 AM EST suspended as directed eCW1 ([facility]) Chantix Continuing Month Marlon 1 MG Chantix Continuing Month P ak 1 MG 03/27/2019 12:00:00 AM EST 1.0 {tablet} suspended Chantix Continuing Month Marlon 1 MG eCW1 [facility]) Chantix Starting Month Marlon 0.5 MG X 11 & 1 MG X 42 Ruchi ntix Starting Month Marlon 0.5 MG X 11 & 1 MG X 42 03/27/2019 12:00:00 AM EST suspended Chantix Starting Month Marlon 0.5 MG X 11 & 1 MG X 42 eCW1 [facility]) Chantix Continuing Month Marlon 1 MG Chantix Continuing Month P ak 1 MG 03/27/2019 12:00:00 AM EST 1.0 {tablet} suspended Chantix Continuing Month Marlon 1 MG eCW1 [facility]) Chantix Continuing Month Marlon 1 MG Chantix Continuing Month P ak 1 MG 03/27/2019 12:00:00 AM EST 1.0 {tablet} suspended Chantix Continuing Month Marlon 1 MG eCW1 [facility]) Chantix Continuing Month Marlon 1 MG Chantix Continuing Month P ak 1 MG 03/27/2019 12:00:00 AM EST 1.0 {tablet} suspended Chantix Continuing Month Marlon 1 MG eCW1 [facility]) Chantix Continuing Month Marlon 1 MG Chantix Continuing Month P ak 1 MG 03/27/2019 12:00:00 AM EST 1.0 {tablet} suspended Chantix Continuing Month Marlon 1 MG eCW1 [facility]) Chantix Continuing Month Marlon 1 MG Chantix Continuing Month P ak 1 MG 03/27/2019 12:00:00 AM EST 1.0 {tablet} suspended Chantix Continuing Month Marlon 1 MG eCW1 [facility]) Chantix Continuing Month Marlon 1 MG Chantix Continuing Month P ak 1 MG 03/27/2019 12:00:00 AM EST 1.0 {tablet} suspended Chantix Continuing Month Marlon 1 MG eCW1 [facility]) Chantix Starting Month Marlon 0.5 MG X 11 & 1 MG X 42 Ruchi ntix Starting Month Marlon 0.5 MG X 11 & 1 MG X 42 03/27/2019 12:00:00 AM EST suspended Chantix Starting Month Marlon 0.5 MG X 11 & 1 MG X 42 eCW1 [facility]) Chantix Starting Month Marlon 0.5 MG X 11 & 1 MG X 42 Ruchi ntix Starting Month Marlon 0.5 MG X 11 & 1 MG X 42 03/27/2019 12:00:00 AM EST suspended Chantix Starting Month Marlon 0.5 MG X 11 & 1 MG X 42 eCW1 [facility]) Chantix Starting Month Marlon 0.5 MG X 11 & 1 MG X 42 Chantix S tarting Month Marlon 11/25/2018 01:00:00 AM EDT completed NETSMART ([facility]) Aleve PM 220-25 MG Aleve PM 12/25/2017 01:00:00 AM EDT completed NETSMART ([facility] ) Oxygen Oxygen 07/06/2017 12:00:00 AM EST 0 {asp} comple torrey NETSMART ([facility]) Alendronate Sodium 70 MG Alendronate Sodium 04/26/2017 12:00:00 AM EST completed NETSMART ([facility]) Diclofenac Sodium 1 % Diclofenac Sodium 04/26/2017 12:00:00 AM EST completed NETSMART ([facility]) Ranitidine Ranitidine 04/26/2017 12:00:00 AM EST 0 {mg} completed NETSMART ([facility]) Insurance Providers Payer name Policy type / Coverage type Policy ID Covered republican ID Covered republican's relationship to desir Policy Desir Plan Information SHANI [id number] SP [id number] MEDICARE COMPLETE [id number] SP [id number] MEDICARE COMPLETE [id number] SP [id number] MEDICAID M [id number] S [id number] MEDICARE COMPLETE-UHC O [id number] S [id number] UNHC CP DUAL COMP - FACILITY [id number] 18 [id number] [facility] HEA [id number] S [id number] [facility] MCRO [id number] SP [id number] [facility](MCAID) O [id number] S [id number] [facility] MCRO [id number] SP [id number] MEDICARE [id number] SP [id number] MEDICAID [id number] SP [id number] Medicaid Medigap Part B [id number] Self [id number] Medicare (Part B) Medicare Primary [id number] Self [id number] Medicaid Medigap Part B [id number] Self [id number] [facility] Options Medigap Part B [id number] Self [id number] Medicare (Part B) Medicare Primary [id number] Self [id number] Evercare/ MCR Advantage Commercial [id number] Self [id number] MEDICARE [id number] SP [id number] MEDICAID [id number] SP [id number] ANSI-Medicaid [id number] ANSI-Medicare Part B [id number] ANSI-Medicaid [id number] ANSI-Medicare Part B [id number] ANSI-Medicaid [id number] ANSI-Medicare Part B [id number] ANSI-Medicaid [id number] ANSI-Medicare Part B [id number] ANSI-Medicaid [id number] ANSI-Medicare Part B [id number] ANSI-Medicare Part B [id number] ANSI-Medicaid [id number] Medicaid [facility] Part B [id number] Self [id number] Medicare (Part B) Medicare Primary [id number] Self [id number] Medicaid [facility] Part B [id number] Self [id number] [facility] Healthcare Options [facility] Part B [id number] Self [id number] Medicare (Part B) Medicare Primary [id number] Self [id number] ANSI-Medicaid [id number] ANSI-Medicare Part B [id number] ANSI-Medicaid [id number] ANSI-Medicare Part B [id number] ANSI-Medicaid [id number] ANSI-Medicare Part B [id number] ANSI-Medicare Part B [id number] ANSI-Medicaid [id number] ANSI-Medicare Part B [id number] ANSI-Medicaid [id number] Medicaid [place] Medigap Part B [id number] Self [id number] [place] Medicare Primary [id number] Self [id number] ANSI-Medicare Part B [id number] ANSI-Medicaid [id number] Medicaid Medigap Part B [id number] Self [id number] Medicare (Part B) Medicare Primary [id number] Self [id number] Medicaid Medigap Part B [id number] Self [id number] [facility] Options Medigap Part B [id number] Self [id number] Medicare (Part B) Medicare Primary [id number] Self [id number] ANSI-Medicare Part B [id number] ANSI-Medicaid [id number] MEDICARE [id number] ANSI-Medicaid [id number] ANSI-Medicare Part B [id number] ANSI-Medicaid [id number] ANSI-Medicare Part B [id number] ANSI-Medicare Part B [id number] ANSI-Medicaid [id number] ANSI-Medicaid [id number] ANSI-Medicare Part B [id number] ANSI-Medicaid [id number] ANSI-Medicare Part B [id number] ANSI-Medicare Part B [id number] ANSI-Medicaid [id number] ANSI-Medicaid [id number] ANSI-Medicare Part B [id number] ANSI-Medicare Part B [id number] ANSI-Medicaid [id number] ANSI-Medicaid [id number] ANSI-Medicare Part B [id number] MEDICARE KWIMO SP KWIMO Medicaid Medigap Part B [id number] Self [id number] Medicare (Part B) Medicare Primary [id number] Self [id number] [facility] [id number] Self [id number] [facility] Options Medigap Part B [id number] Self [id number] Medicare (Part B) Medicare Primary [id number] Self [id number] ANSI-Medicare Part B [id number] ANSI-Medicaid [id number] ANSI-Medicaid [id number] ANSI-Medicare Part B [id number] ANSI-Medicaid [id number] ANSI-Medicare Part B [id number] ANSI-Medicaid [id number] ANSI-Medicare Part B [id number] ANSI-Medicare Part B [id number] ANSI-Medicaid [id number] MEDICAID [facility] ANSI-Medicaid [id number] ANSI-Medicare Part B [id number] ANSI-Medicaid [id number] ANSI-Medicare Part B [id number] ANSI-Medicare Part B [id number] ANSI-Medicaid [id number] ANSI-Medicaid [id number] ANSI-Medicare Part B [id number] ANSI-Medicaid [id number] ANSI-Medicare Part B [id number] ANSI-Medicaid [id number] ANSI-Medicare Part B [id number] ANSI-Medicaid [id number] ANSI-Medicare Part B [id number] ANSI-Medicaid [id number] ANSI-Medicare Part B [id number] ANSI-Medicaid [id number] ANSI-Medicare Part B [id number] ANSI-Medicaid [id number] ANSI-Medicare Part B [id number] Medicaid Medigap Part B [id number] Self [id number] Medicare (Part B) Medicare Primary [id number] Self [id number] Medicaid Medigap Part B [id number] Self [id number] [facility] Medigap Part B [id number] Self [id number] Medicare (Part B) Medicare Primary [id number] Self [id number] ANSI-Medicaid [id number] ANSI-Medicare Part B [id number] ANSI-Medicaid [id number] ANSI-Medicare Part B [id number] ANSI-Medicare Part B [id number] ANSI-Medicaid [id number] ANSI-Medicare Part B [id number] ANSI-Medicaid [id number] [place] MEDICARE [id number] SP [id number] ANSI-Medicare Part B [id number] ANSI-Medicaid [id number] ANSI-Medicare Part B [id number] ANSI-Medicaid [id number] ANSI-Medicare Part B [id number] ANSI-Medicaid [id number] ANSI-Medicaid [id number] ANSI-Medicare Part B [id number] MEDICARE C [id number] S [id number] A MEDICARE [id number] Susan [id number] A S [employer], [facility] C [id number] S [id number] Medicare (Part B) Medicare Primary [id number] Self [id number] Medicaid Medigap Part B [id number] Self [id number] [facility] Options Medigap Part B [id number] Self [id number] Medicare (Part B) Medicare Primary [id number] Self [id number] Medicare (Part B) Medicare Primary [id number] Self [id number] Medicaid Medigap Part B [id number] Self [id number] [facility] Medigap Part B [id number] Self [id number] Medicare (Part B) Medicare Primary [id number] Self [id number] MEDICARE [id number] SP [id number] Medicare (Part B) Medicare Primary [id number] Self [id number] Medicaid Medigap Part B [id number] Self [id number] [facility] Medigap Part B [id number] Self [id number] Medicare (Part B) Medicare Primary [id number] Self [id number] Medicare (Part B) Medicare Primary [id number] Self [id number] Medicaid Medigap Part B [id number] Self [id number] [facility] Medigap Part B [id number] Self [id number] Medicare (Part B) Medicare Primary [id number] Self [id number] Medicare (Part B) Medicare Primary [id number] Self [id number] Medicaid Medigap Part B [id number] Self [id number] [facility] Medigap Part B [id number] Self [id number] Medicare (Part B) Medicare Primary [id number] Self [id number] Medicare (Part B) Medicare Primary [id number] Self [id number] Medicaid Medigap Part B [id number] Self [id number] [facility] Medigap Part B [id number] Self [id number] Medicare (Part B) Medicare Primary [id number] Self [id number] Medicare (Part B) Medicare Primary [id number] Self [id number] Medicaid Medigap Part B [id number] Self [id number] [facility] Medigap Part B [id number] Self [id number] Medicare (Part B) Medicare Primary [id number] Self [id number] Medicare (Part B) Medicare Primary Self [employer]/ [employer] Self Medicaid Medigap Part B 1 1 Self 1 1 [facility] Options Medigap Part B [place] Medicare Primary Self AARP S [id number] S [id number] Medicare Medicare Primary Self [facility] OPTIONS [id number] SP [id number] Medicaid [facility] Part B Self [id number] A [id number] Problems, Conditions, and Diagnoses Code Display Name Description Problem Type Effective Dates Data Source(s) E03.9 Hypothyroidism, unspecified Hypothyroidism, unspecifie d Problem 12/01/2019 01:00:00 AM EDT [employer] ([facility] ) 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 Problem 06/09/2019 12:00:00 AM EST NETSMART ([facility]) 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.51 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 ids senior living (current) use of inhaled steroids Problem 06/09/2019 12:00:00 AM EST NETSMART ([facility]) E03.0 Congenital hypothyroidism with diffuse g oiter Congenital hypothyroidism with diffuse goiter Problem 06/09/2019 12:00:00 AM EST NETSMART ([facility]) N40.1 Benign prostatic hyperplasia with lower urinary tract symptoms Benign prostatic hyperplasia with lower urinary tract symptoms Problem 04/13/2019 12:00:00 AM EST NETSMART ([facility] ) F17.210 Nicotine dependence, cigarettes, uncompl icated Nicotine dependence, cigarettes, uncomplicated Problem 04/13/2019 12:00:00 AM EST NETSMAR T ([facility]) M35.3 Polymyalgia rheumatica Polymyalgia rheumatica Problem 04/13/2019 12:00:00 AM EST NETSMART ([facility] ) H26.9 [id number] Cataract, unspecified cataract t ype, unspecified laterality Problem 03/27/2019 12:00:00 AM EST eCW1 ([facility]) F17.200 [id number] Nicotine dependence with current use Prob mario 03/27/2019 12:00:00 AM EST [facility] H26.9 [id number] Cataract, unspecified cataract t ype, unspecified laterality Problem 03/27/2019 12:00:00 AM EST eCW1 ([facility]) R99 Ill-defined and unknown cause of mortali ty Ill-defined and unknown cause of mortality Diagnosis 03/14/2020 01:39:00 PM [facility] H5703 Miosis Miosis Diagnosis 03/09/2020 08:30:00 AM ES T [facility] H268 Other specified cataract Other specified cataract Diag nosis 03/09/2020 08:30:00 AM [facility] [id number] Encounter for other preprocedural examin ation Encounter for other preprocedural examination Diagnosis 03/08/2020 11:55:00 AM [facility] Surgeries/Procedures Procedure Description Date Indications Data Source(s) X-Ray Hip Min 4 View 04/21/2020 12:00:00 AM EST MEDENT ([facility] ) X-Ray Hip Unilateral With Pelvis 2-3 Views 04/21/2020 12:00:00 AM EST MEDENT ([facility]) TX INTER/HI/SUBTRCHNTRIC FEM FX IMED IMPLTSCREW 2019 12:00:00 AM EST MEDENT ([facility]) ECG ROUTINE ECG W/LEAST 12 LDS W/I&R 03/10/2020 12:00: 00 AM EST MEDENT ([facility]) Immunization: Flublok Quadrivalent (18 years & older) 0.5mL IM (Influenza) 03/03/2020 12:00:00 AM EDT eCW1 ([facility]) ECG ROUTINE ECG W/LEAST 12 LDS W/I&R 01/26/2020 12:00: 00 AM EDT MEDENT ([facility]) INTERROGATION EVAL REMOTE </90 D 1/2/> LD CVDFB 2019 12:00:00 AM EDT MEDENT ([facility]) INTERROGATION REMOTE </90 D KEYBOARDING CLERK REVIEW 01/21/20 12:00:00 AM EDT MEDENT ([facility]) INTERROGATION EVAL F2F 1/DUAL/REAM CUTTER LEADS CVDFB 10/22/19 12:00:00 AM EDT MEDENT ([facility]) INTERROGATION EVAL REMOTE </90 D 1/2/> LD CVDFB 2019 12:00:00 AM EDT MEDENT ([facility]) INTERROGATION REMOTE </90 D KEYBOARDING CLERK REVIEW 07/20/19 20 12:00:00 AM EDT MEDENT ([facility]) INTERROGATION EVAL REMOTE </90 D 1/2/> LD CVDFB 2018 12:00:00 AM EST MEDENT ([facility]) INTERROGATION REMOTE </90 D KEYBOARDING CLERK REVIEW 04/20/20 19 12:00:00 AM EST MEDENT ([facility]) Office Visit, Est Pt., Level 4 PC 03/27/2019 12:00:00 AM EST [facility] Office Visit, Est Pt., Level 3 FC 03/27/2019 12:00:00 AM EST eCW1 [facility]) RIV4 VACC RECOMBINANT DNA IM 03/27/2019 12:00:00 AM ES T eCW1 [facility]) Administration of influenza virus vaccine 03/27/2019 1 2:00:00 AM EST eCW1 [facility]) Results ID Date Data Source [id number] 05/10/2020 12:59:00 PM EST [facility]ENT [facility]) Name Value Range Interpretation Code Description Data Janeen rce(s) Supporting Document(s) Red Blood Count 4.04 4.00-5.40 MEDENT ([facility]) White Blood Count 11.4 5.0-10.0 MED[facility] ([facility]) Hematocrit 37.3 MEDENT ([facility]) Platelets 257 172-450 [facility] Hemoglobin 11.1 MEDENT ([facility]) ID Date Data Source [id number] 05/10/2020 12:59:00 PM EST MEDENT ([facility]) Name Value Range Interpretation Code Description Data Janeen rce(s) Supporting Document(s) Glucose 118 83-110 [facility] Creatinine 1.24 0.6-1.0 MEDENT ([facility]) Blood Urea Nitrogen 26 7-18 MED[facility] ([facility]) Sodium 137 136-145 MEDENT ([facility] [...] [facility] [place]) ID Date Data Source [id number] 05/04/2020 09:00:00 AM EST [facility] Name Value Range Interpretation Code Description Data Janeen rce(s) Supporting Document(s) SARS coronavirus 2 RNA [facility] This lab was ordered by [facility] and reported by [facility]. ID Date Data Source [id number] 04/27/2020 06:00:00 AM EST [facility] Name Value Range Interpretation Code Description Data Janeen rce(s) Supporting Document(s) SARS coronavirus 2 RNA [facility] This lab was ordered by [facility] and reported by [facility]. ID Date Data Source [id number] 04/20/2020 12:16:00 PM EST [facility] Name Value Range Interpretation Code Description Data Janeen rce(s) Supporting Document(s) SARS coronavirus 2 RNA [facility] This lab was ordered by [facility] and reported by [facility]. ID Date Data Source [id number] 04/07/2020 04:04:00 PM EST [facility] Name Value Range Interpretation Code Description Data Janeen rce(s) Supporting Document(s) SARS coronavirus 2 RNA [Presence] in Res piratory specimen by MITALI with probe detection [facility] This lab was ordered by [facility] a nd reported by [facility]. ID Date Data Source [id number] 03/11/2020 07:34:00 [place] [address] OPERATIVE SUMMARYNAME: MELISSA PARRA DATE OF : 1945TTENDING PHYS: Yuliet Goss MD DATE: 03/09/20 MR#: [id number] OF PROCEDURE: 03/09/2020PREOPERATIVE DIAGNOSIS: 1. Dense 4+ [...] then done, followed by phacoemulsification in a dkeelt-jst-sygaizk method. During this, at one point the patient started moving vigorously and madesudden movements. At that time, it was noted that there was a small rent in the posterior capsule,and a piece of the nuclear material was noted to have a prolapse in the vitreous. At this point, it wasdecided to place a [id number] 21.0 diopter lens in the sulcus. Excess [...] to therecovery room in stable condition. [address] [place] [id number] OPERATIVE SUMMARYNAME: MELISSA PARRA DATE OF : 1945TTENDING PHYS: Yuliet Goss MD DATE: 03/09/20 MR#: [id number]: Yuliet Goss MD 03/10/20 17:21DT: SSR 03/11/20 07:07DS: Yuliet Goss MD 04/06/20 09:59 2 Name Value Range Interpretation Code Description Data Janeen rce(s) Supporting Document(s) ID Date Data Source [id number] 03/23/2020 03:50:00 PM EST [facility] Name Value Range Interpretation Code Description Data Janeen rce(s) Supporting Document(s) Magnesium [Mass/volume] in Serum or Plasma 2.3 mg/dL 1.8-2.4 MEDENT ([facility]) ID Date Data Source [id number] 03/23/2020 03:50:00 PM EST MEDENT ([facility]) Name Value Range Interpretation Code Description Data Janeen rce(s) Supporting Document(s) Glucose, Fasting 109 mg/dL 70-100 MED[facility]) Creatinine For GFR 1.27 mg/dL 0.70-1.30 MEDENT ([facility]) Blood Urea Nitrogen 24 mg/dL 7-18 MEDENT ([facility]) Glomerular Filtration Rate 58.5 MED ENT ([facility]) <content>Units are mL/min/1.73 m2</content>
<content></content>
<content>Chronic Kidney Disease Staging per NKF:</content>
<content></content>
<content>Stage I & II GFR >=60 Normal to Mildly Decreased</content>
<content>Stage III GFR 30- 59 Moderately Decreased</content>
<content>Stage IV GFR 15-29 Severely Decreased</content>
<content>Stage V GFR <15 Very Little GFR Left</content>
<content>ESRD GFR <15 on SOFTWARE SALES</content>
<content></content> Sodium Level 137 meq/L 136-145 MEDENT ([facility]) Potassium Serum 4.2 meq/L 3.5-5.1 MEDENT ([facility]) Carbon Dioxide Level 36 meq/L 21-32 MEDENT ([facility]) Chloride Level 95 meq/L 98-107 MEDENT ([facility]) Calcium Level 8.8 mg/dL 8.8-10.2 MEDENT ([facility]) Anion Gap 6 meq/L 8-16 [facility] ID Date Data Source [id number] 03/17/2020 10:32:00 PM [facility], [place] [address]OHXPSFG NAME: ROSLYN TORRES OF : 1945REPORT: DISCHARGE SUMMARYPATIENT NUMBER: [id number] STATUS: SDMEDICAL RECORD NUMBER: [id number] OF ADMISSION: 03/11/2020DATE OF DISCHARGE: 03/13/2020ROOM: 02ATTENDING [...] will be followed up by Ophthalmology in [place].DICTATED BY: Javid Schmidt, PETERictated: 03/13/2020 21:04DT: 03/13/2020 21:07Job #: [id number]: [facility] [place] Steven Barcenas [place] MD Solomon Spivey MD Rajeev Seth, MDNOTE: [facility] computer generated reports are not confirmed orauthenticated unless they are signed by the providerElectronically Authenticated and Edited by:Javid Schmidt MD On 03/17/2020 10:32 PM EST Name Value Range Interpretation Code Description Data Janeen rce(s) Supporting Document(s) ID Date Data Source [id number] 03/13/2020 10:16:31 AM EST [facility] Name Value Range Interpretation Code Description Data Janeen rce(s) Supporting Document(s) WBC 14.0 10*3/uL (4.1-11.0) H [facility] RBC 3.91 10*6/uL (4.60-6.10) L [facility] HGB 11.1 g/dL (13.5-18.0) L [facility] HCT 34.1 % (41.0-53.0) L [facility] [address] [facility] [address] MCV 87.2 fL (80.0-95.0) [facility] MCH 28.3 pg (27.0-32.0) [facility] MCHC 32.5 g/dL (32.0-36.0) [facility] RDW 14.7 % (10.5-14.5) H [facility] PLT 235 10*3/uL (150-450) [facility] MPV 7.8 fL (7.1-10.7) [facility] [place] ID Date Data Source [id number] 03/13/2020 09:35:00 AM EST [facility] [...] consolidation are seen. Professional interpretation performed at [facility] .End of diagnostic report for accession: [id number] Interpreted: Ramakrishna Cervantes DOTranscribed: 03/13/2020 09:34 AMSigned: 03/13/2020 09:35 AM Ramakrishna Cervantes DO [facility] # [id number] BILL # [id number] Name Value Range Interpretation Code Description Data Janeen rce(s) Supporting Document(s) ID Date Data Source [id number] 03/24/2020 10:13:00 AM EST [facility] [place] [id number] NAME: ROSLYN TORRES OF : 1945REPORT: OPERATIONPATIENT NUMBER: [id number] STATUS: SDMEDICAL RECORD NUMBER: [id number] OF ADMISSION: 03/11/2020DATE OF DISCHARGE:ROOM: 02DATE OF [...] PETER Vaughanictated: 03/12/2020 11:28DT: 03/12/2020 11:40Job #: [id number]: [facility] computer generated reports are not confirmed orauthenticated unless they are signed by the providerElectronically Authenticated and Edited by:CARLOS CALDERON MD On 03/24/2020 10:13 AM EST Name Value Range Interpretation Code Description Data Janeen rce(s) Supporting Document(s) ID Date Data Source [id number] 03/12/2020 11:43:36 AM EST [facility] Name Value Range Interpretation Code Description Data Janeen rce(s) Supporting Document(s) TROPONIN I <0.05 ng/mL (<0.05) [facility] [place] Less than 0.05: Myocardial injury unlike lyGreater than or equal to 0.05: Highly suggestive of myocardial injuryCorrelation with rise and/or fall ofserial troponins, clinical symptomsand ECG changes is necessary. ID Date Data Source [id number] 03/12/2020 11:43:36 AM EST [facility] Name Value Range Interpretation Code Description Data Janeen rce(s) Supporting Document(s) NT PRO BNP 411 pg/mL (0-450) [facility] ID Date Data Source [id number] 03/12/2020 11:43:36 AM EST [facility] Name Value Range Interpretation Code Description Data Janeen rce(s) Supporting Document(s) SODIUM 138 mmol/L (136-145) [facility] POTASSIUM 3.9 mmol/L (3.6-5.2) [facility] CHLORIDE 99 mmol/L (100-108) L [facility] CO2 36 mmol/L (22-31) H [facility] ANION GAP 3 mmol/L (7-16) L [facility] UREA NITROGEN 21 mg/dL (7-24) [facility] CREATININE 1.17 mg/dL (0.80-1.30) [facility] BUN/CREAT RATIO 17.9 RATIO (10.0-20.0) [facility] GLUCOSE 110 mg/dL (70-99) H [facility] CALCIUM 8.1 mg/dL (8.4-10.2) L [facility] TOTAL PROTEIN 5.7 g/dL (6.4-8.2) L [facility] ALBUMIN 3.1 g/dL (3.2-4.5) L [facility] GLOBULIN 2.6 g/dL (2.7-4.3) L [facility] ALB/GLOB RATIO 1.2 RATIO [facility] ALKALINE PHOSPHATASE 88 U/L (45-117) [facility] BILIRUBIN,TOTAL 0.4 mg/dL (0.0-1.0) [facility] PLEASE NOTE:Total bilirubin results may be falselyelevated in patients taking Eltrombopag. AST (SGOT) 14 U/L (11-39) [facility] ALT (SGPT) 14 U/L (12-78) [facility] GFR >60 ml/min/1.73m2 (>59) [facility] GFR ( AMER) >60 ml/min/1.73m2 (>59) [facility] GFR INTERPRETATION [facility] --NORMAL KIDNEY FUNCTION OR MILD DISEASE - GFR >OR= 60CHRONIC KIDNEY DISEASE - GFR 15 - 59RENAL FAILURE - GFR <15 Est. GFR calculation based on the MDRDstudy equation, which assumes a steadystate for creatinine. Est. GFR should notbe used for medication dosing. ID Date Data Source [id number] 03/12/2020 11:26:18 AM EST [facility] Name Value Range Interpretation Code Description Data Janeen rce(s) Supporting Document(s) WBC 16.8 10*3/uL (4.1-11.0) H [facility] RBC 3.76 10*6/uL (4.60-6.10) L [facility] HGB 10.4 g/dL (13.5-18.0) L [facility] HCT 32.9 % (41.0-53.0) L [facility] PERFORMED AT [address] [place] [address] MCV 87.5 fL (80.0-95.0) [facility] MCH 27.7 pg (27.0-32.0) [facility] MCHC 31.6 g/dL (32.0-36.0) L [facility] RDW 14.7 % (10.5-14.5) H [facility] PLT 240 10*3/uL (150-450) [facility] MPV 8.3 fL (7.1-10.7) [facility] ID Date Data Source [id number] 03/11/2020 10:14:00 PM [facility] DATE OF EXAM: 03/11/2020ULTRASOUND VASCU LAR: BILATERAL [...] deep venous thrombosis. Professional interpretation performed at [facility] .End of diagnostic report for accession: [id number] Interpreted: Chalino Corona MDTranscribed: 03/11/2020 10:14 PMSigned: 03/11/2020 10:14 PM Chalino Corona MD [facility] # [id number] [facility] # [id number] Name Value Range Interpretation Code Description Data Janeen rce(s) Supporting Document(s) ID Date Data Source [id number] 03/11/2020 09:54:00 PM EST [facility] DATE OF EXAM: 03/11/2020CHEST CLINICAL [...] lobe subsegmental atelectasis. Professional interpretation performed at [facility] .End of diagnostic report for accession: [id number] Interpreted: Chalino Corona MDTranscribed: 03/11/2020 09:53 PMSigned: 03/11/2020 09:54 PM Chalino Corona MD [facility] # [id number] BILL # [id number] Name Value Range Interpretation Code Description Data Janeen rce(s) Supporting Document(s) ID Date Data Source [id number] 03/11/2020 09:37:51 PM EST [facility] Name Value Range Interpretation Code Description Data Janeen rce(s) Supporting Document(s) SOURCE [facility] FIO2 [facility] 5LNC PH 7.39 (7.35-7.45) [facility] PCO2 59 mm[Hg] (32-48) H [facility] PO2 75 mm[Hg] (83-108) L [facility] O2 SATURATION 94.2 % (95.0-99.0) L [facility] BASE EXCESS 7.8 mmol/L (0.0-3.0) H [facility] [place] HCO3 34.4 mmol/L (21.0-29.0) H [facility] TOTAL CO2 36.2 mmol/L (23.0-32.0) H [facility] BODY TEMPERATURE 98.6 [degF] [facility] ID Date Data Source [id number] 03/11/2020 09:44:25 PM EST [facility] Name Value Range Interpretation Code Description Data Janeen rce(s) Supporting Document(s) SODIUM 139 mmol/L (136-145) [facility] POTASSIUM 3.8 mmol/L (3.6-5.2) [facility] CHLORIDE 101 mmol/L (100-108) [facility] CO2 35 mmol/L (22-31) H [facility] ANION GAP 3 mmol/L (7-16) L [facility] UREA NITROGEN 21 mg/dL (7-24) [facility] CREATININE 1.27 mg/dL (0.80-1.30) [facility] BUN/CREAT RATIO 16.5 RATIO (10.0-20.0) [facility] GLUCOSE 97 mg/dL (70-99) [facility] CALCIUM 7.7 mg/dL (8.4-10.2) L [facility] TOTAL PROTEIN 5.4 g/dL (6.4-8.2) L [facility] ALBUMIN 3.0 g/dL (3.2-4.5) L [facility] GLOBULIN 2.4 g/dL (2.7-4.3) L [facility] ALB/GLOB RATIO 1.3 RATIO [facility] ALKALINE PHOSPHATASE 84 U/L (45-117) [facility] BILIRUBIN,TOTAL 0.5 mg/dL (0.0-1.0) [facility] PLEASE NOTE:Total bilirubin results may be falselyelevated in patients taking Eltrombopag. AST (SGOT) 15 U/L (11-39) [facility] ALT (SGPT) 14 U/L (12-78) [facility] GFR 55 ml/min/1.73m2 (>59) L [facility] GFR ( AMER) >60 ml/min/1.73m2 (>59) [facility] GFR INTERPRETATION [facility] --NORMAL KIDNEY FUNCTION OR MILD DISEASE - GFR >OR= 60CHRONIC KIDNEY DISEASE - GFR 15 - 59RENAL FAILURE - GFR <15 Est. GFR calculation based on the MDRDstudy equation, which assumes a steadystate for creatinine. Est. GFR should notbe used for medication dosing. ID Date Data Source [id number] 03/11/2020 09:25:28 PM EST [facility] Name Value Range Interpretation Code Description Data Janeen rce(s) Supporting Document(s) PT 10.5 s (9.2-11.9) [facility] [address] [facility] [address] INR 1.00 [facility] SUGGESTED THERAPEUTIC RANGES USING INR F ORSTABILIZED ANTICOAGULATED PATIENTS:STANDARD DOSE THERAPY INR 2.0-3.0 DVT, PE, PREVENT DVT OR EMBOLISMHIGH DOSE THERAPY INR 2.5-3.5 PREVENT EMBOLISM FROM MECHANICAL HEART VALVE ID Date Data Source [id number] 03/11/2020 09:16:35 PM EST [facility] Name Value Range Interpretation Code Description Data Janeen rce(s) Supporting Document(s) WBC 7.9 10*3/uL (4.1-11.0) [facility] [place] RBC 3.58 10*6/uL (4.60-6.10) L [facility] HGB 10.1 g/dL (13.5-18.0) L [facility] HCT 30.9 % (41.0-53.0) L [facility] PERFORMED AT [address] [place] [address] MCV 86.1 fL (80.0-95.0) [facility] MCH 28.1 pg (27.0-32.0) [facility] MCHC 32.7 g/dL (32.0-36.0) [facility] RDW 14.6 % (10.5-14.5) H [facility] PLT 229 10*3/uL (150-450) [facility] MPV 7.7 fL (7.1-10.7) [facility] NEUT % 77.9 % (35.0-75.0) H [facility] LYMPH % 10.4 % (16.0-52.0) L [facility] MONO % 10.3 % (0.0-8.0) H [facility] EOS % 0.8 % (0.0-5.0) [facility] BASO % 0.6 % (0.0-4.0) [facility] NEUT # 6.1 10*3/uL (1.8-7.7) [facility] LYMPH # 0.8 10*3/uL (1.2-4.8) L [facility] MONO # 0.8 10*3/uL (0.0-0.8) [facility] Eosinophils [#/volume] in Blood by Automated count 0.1 10*3/uL (0.0-0 .5) [facility] BASO # 0.0 10*3/uL (0.0-0.2) [facility] [place] [facility] ID Date Data Source [id number] 03/11/2020 02:35:00 PM EST [facility] Name Value Range Interpretation Code Description Data Janeen rce(s) Supporting Document(s) SARS coronavirus 2 RNA [Presence] in Res piratory specimen by MITALI with probe detection [facility] This lab was reported by [facility]. ID Date Data Source [id number] 03/11/2020 08:19:43 PM EST [facility] Name Value Range Interpretation Code Description Data Janeen rce(s) Supporting Document(s) SPECIMEN DESCRIPTION [facility] COVID19 RESULT (NDET) [facility] THIS ASSAY AMPLIFIES AND DETECTSTHE TARG ET RNA USING REAL-TIME PCR.NEGATIVE 2019_NCOV RT-PCR RESULTS DONOT PRECLUDE 2019_NCOV INFECTION ANDSHOULD NOT BE USED THE SOLE BASISFOR PATIENT MANAGEMENT DECISIONS. COMMENT [facility] APPR[facility] B Y THE [place]. THE [place] FOOD[place] DRUG ADMINISTRATION HAS NOT APPROVEDTHIS TEST. NEGATIVE RESULTS DO NOT [id number] INFECTION AND SHOULD NOT BEUSED THE SOLE BASIS FOR CLINICALDIAGNOSIS OR PATIENT MANAGEMENT DECISIONS.RESULTS EMAILED TO IC AT [phone]. [phone]. FIRST TEST [facility] SYMPTOMATIC [facility] DATE OF SYMPT ONSET [facility] HOSPITALIZED [facility] [place] [facility] [place] ICU [facility] CONGREGATE CARE SET [facility] [place] [facility] ID Date Data Source [id number] 03/04/2020 05:49:00 PM EDT [place] Name Value Range Interpretation Code Description Data Janeen rce(s) Supporting Document(s) SARS-CoV-2 (COVID19) [facility] This lab was ordered by [facility] and reported by [employer]. ID Date Data Source [id number] 11/27/2019 10:40:00 AM EDT MEDENT ([facility]) Name Value Range Interpretation Code Description Data Janeen rce(s) Supporting Document(s) White Blood Count 10.2 4.0-10.0 [facility] ([facility]) Platelets 231 150-450 [facility] Red Blood Count 3.78 4.30-6.10 [facility] ([facility]io [facility]) Hematocrit 34.0 [facility] ([facility]) Hemoglobin 10.8 [facility] ([facility]) ID Date Data Source [id number] 10/26/2019 09:17:00 AM EDT [facility] ([facility]) Name Value Range Interpretation Code Description Data Janeen rce(s) Supporting Document(s) Magnesium [Mass/volume] in Serum or Plasma 3.0 mg/dL 1.8-2.4 [facility] ([facility]) ID Date Data Source [id number] 10/26/2019 09:17:00 AM EDT [facility] ([facility]) Name Value Range Interpretation Code Description Data Janeen rce(s) Supporting Document(s) Glucose, Fasting 92 mg/dL 70-100 [facility] ([facility]) Blood Urea Nitrogen 26 mg/dL 7-18 [facility] ([facility]) Sodium Level 135 meq/L 136-145 [facility] ([facility]) Glomerular Filtration Rate 57.6 MED ENT ([facility]) <content>Units are mL/min/1.73 m2</content>
<content></content>
<content>Chronic Kidney Disease Staging per NKF:</content>
<content></content>
<content>Stage I & II GFR >=60 Normal to Mildly Decreased</content>
<content>Stage III GFR 30- 59 Moderately Decreased</content>
<content>Stage IV GFR 15-29 Severely Decreased</content>
<content>Stage V GFR <15 Very Little GFR Left</content>
<content>ESRD GFR <15 on [employer]</content>
<content></content> Creatinine For GFR 1.29 mg/dL 0.70-1.30 [facility] ([facility]) Potassium Serum 5.3 meq/L 3.5-5.1 [facility] ([facility]) Chloride Level 98 meq/L 98-107 [facility] ([facility]) Carbon Dioxide Level 34 meq/L 21-32 [facility] ([facility]) Calcium Level 9.0 mg/dL 8.8-10.2 [facility] ([facility]) Anion Gap 3 meq/L 8-16 [facility] ID Date Data Source [id number] 04/14/2019 10:13:00 AM EST [facility] ([facility]) Name Value Range Interpretation Code Description Data Janeen rce(s) Supporting Document(s) Magnesium [Mass/volume] in Serum or Plasma 2.1 mg/dL 1.8-2.4 [facility] ([facility]) ID Date Data Source [id number] 04/14/2019 10:13:00 AM EST [facility] ([facility]) Name Value Range Interpretation Code Description Data Janeen rce(s) Supporting Document(s) Glucose, Fasting 80 mg/dL 70-100 [facility] ([facility]) Creatinine For GFR 0.98 mg/dL 0.70-1.30 [facility] ([facility]) Blood Urea Nitrogen 21 mg/dL 7-18 [facility] ([facility]) Glomerular Filtration Rate Laboratory test result [facility] ([facility]) <content>Units are mL/min/1.73 m2</content>
<content></content>
<content>Chronic Kidney Disease Staging per NKF:</content>
<content></content>
<content>Stage I & II GFR >=60 Normal to Mildly Decreased</content>
<content>Stage III GFR 30- 59 Moderately Decreased</content>
<content>Stage IV GFR 15-29 Severely Decreased</content>
<content>Stage V GFR <15 Very Little GFR Left</content>
<content>ESRD GFR <15 on [employer]</content>
<content></content> Chloride Level 97 meq/L 98-107 [facility] ([facility]) Sodium Level 139 meq/L 136-145 [facility] ([facility]) Potassium Serum 3.7 meq/L 3.5-5.1 [facility] ([facility]) Anion Gap 6 meq/L 8-16 [facility] Calcium Level 8.7 mg/dL 8.8-10.2 [facility] ([facility]) Carbon Dioxide Level 36 meq/L 21-32 [facility] ([facility]) Procedure Social History Code Duration Value Status Description Data Source(s ) Smoking 05/08/2020 12:00:00 AM EST Current some day smoker com pleted Current some day smoker [facility] Smoking 03/22/2020 12:00:00 AM EST Current some day smoker com pleted Current some day smoker eCW1 ([facility]) Smoking 03/22/2020 12:00:00 AM EST Current some day smoker com pleted Current some day smoker eCW1 ([facility]) Smoking 03/22/2020 12:00:00 AM EST Current some day smoker com pleted Current some day smoker eCW1 ([facility]) Smoking 03/22/2020 12:00:00 AM EST Current some day smoker com pleted Current some day smoker eCW1 ([facility]) Smoking 03/03/2020 12:00:00 AM EDT Current some day smoker com pleted Current some day smoker eCW1 ([facility]) Smoking 03/03/2020 12:00:00 AM EDT Current some day smoker com pleted Current some day smoker eCW1 ([facility]) Smoking 03/03/2020 12:00:00 AM EDT Current some day smoker com pleted Current some day smoker eCW1 ([facility]) Smoking 03/03/2020 12:00:00 AM EDT Current some day smoker com pleted Current some day smoker eCW1 ([facility]) Smoking 10/26/2019 12:00:00 AM EDT Current some day smoker com pleted Current some day smoker eCW1 ([facility]) Smoking 06/29/2019 12:00:00 AM EST Current some day smoker com pleted Current some day smoker eCW1 ([facility]) Smoking 06/29/2019 12:00:00 AM EST Current some day smoker com pleted Current some day smoker eCW1 ([facility]) Vital Signs ID Date Data Source UNK Name Value Range Interpretation Code Description Data Source(s) Diastolic blood pressure 78 mm[Hg] 78 mm[Hg] eCW1 ([facility]) Systolic blood pressure 126 mm[Hg] 126 mm[Hg] e CW1 ([facility]) Body temperature 97.7 [degF] 97.7 [degF] eCW1 ( [facility]) Respiratory rate 18 /min 18 /min eCW1 ([facility]) Heart rate 87 /min 87 /min eCW1 ([facility]) Body mass index (BMI) [Ratio] 24.07 kg/m2 24.07 kg/m2 [facility] ([facility]) Body height 69 [in_i] 69 [in_i] eCW1 ([facility]) Body weight 163 [lb_av] 163 [lb_av] eCW1 ([facility] Respiratory rate 16 /min 16 /min [facility] ( [facility]) Body mass index (BMI) [Ratio] 24.2 kg/m2 24.2 k g/m2 [facility] ([facility]) Body height 69 [in_i] 69 [in_i] [facility] 5'9" Body weight 164.00 [lb_av] 164.00 [lb_av] MEDEN T ([facility]) Diastolic blood pressure 78 mm[Hg] 78 mm[Hg] eCW1 ([facility]) Systolic blood pressure 130 mm[Hg] 130 mm[Hg] e CW1 ([facility]) Body temperature 98 [degF] 98 [degF] eCW1 ([facility]) Respiratory rate 18 /min 18 /min eCW1 ([facility]) Heart rate 85 /min 85 /min eCW1 ([facility]) Body mass index (BMI) [Ratio] 24.66 kg/m2 24.66 kg/m2 eCW1 ([facility]) Body height 69 [in_i] 69 [in_i] eCW1 ([facility]) Body weight 167 [lb_av] 167 [lb_av] eCW1 [facility] Diastolic blood pressure 68 mm[Hg] 68 mm[Hg] [facility] ([facility]) sitting, regular cuff Systolic blood pressure 126 mm[Hg] 126 mm[Hg] M EDENT ([facility]) sitting, regular cuff Respiratory rate 16 /min 16 /min [facility] ( [facility]) Heart rate 88 /min 88 /min [facility] ([facility] Regular Body mass index (BMI) [Ratio] 24.5 kg/m2 24.5 k g/m2 [facility] ([facility]) Body height 69 [in_i] 69 [in_i] [facility]) 5'9" Body weight 166.00 [lb_av] 166.00 [lb_av] MEDEN T ([facility]) Diastolic blood pressure 68 mm[Hg] 68 mm[Hg] [facility] ([facility]) sitting Systolic blood pressure 124 mm[Hg] 124 mm[Hg] M EDENT ([facility]) sitting Diastolic blood pressure 68 mm[Hg] 68 mm[Hg] [facility] ([facility]) sitting, regular cuff Systolic blood pressure 126 mm[Hg] 126 mm[Hg] M EDENT ([facility]) sitting, regular cuff Respiratory rate 20 /min 20 /min [facility] ( [facility]) Heart rate 92 /min 92 /min [facility] ([facility]) Regular Body mass index (BMI) [Ratio] 24.4 kg/m2 24.4 k g/m2 [facility] ([facility]) Body height 69 [in_i] 69 [in_i] [facility] 5'9" Body weight 165.00 [lb_av] 165.00 [lb_av] MEDEN T ([facility]) Diastolic blood pressure 64 mm[Hg] 64 mm[Hg] [facility] ([facility]) sitting, regular cuff Systolic blood pressure 106 mm[Hg] 106 mm[Hg] M EDENT ([facility]) sitting, regular cuff Respiratory rate 20 /min 20 /min [facility] ( [facility]) Heart rate 88 /min 88 /min [facility] ([facility]) Regular Body mass index (BMI) [Ratio] 24.7 kg/m2 24.7 k g/m2 [facility] ([facility]) Body height 69 [in_i] 69 [in_i] [facility] ([facility]) 5'9" Body weight 167.00 [lb_av] 167.00 [lb_av] MEDEN T ([facility]) Diastolic blood pressure 72 mm[Hg] 72 mm[Hg] eCW1 ([facility]) Systolic blood pressure 120 mm[Hg] 120 mm[Hg] e CW1 ([facility]) Body temperature 97.2 [degF] 97.2 [degF] eCW1 ( [facility]) Respiratory rate 20 /min 20 /min eCW1 ([facility]) Heart rate 89 /min 89 /min eCW1 ([facility]) Body mass index (BMI) [Ratio] 22.98 kg/m2 22.98 kg/m2 eCW1 ([facility]) Body height 69 [in_us] 69 [in_us] eCW1 ([facility]) Body weight Measured 155.6 [lb_av] 155.6 [lb_av ] eCW1 ([facility]) Diastolic blood pressure 60 mm[Hg] 60 mm[Hg] [facility] ([facility]) Sitting, regular cuff Systolic blood pressure 110 mm[Hg] 110 mm[Hg] M EDENT ([facility]) Sitting, regular cuff Respiratory rate 18 /min 18 /min [facility] ( [facility]) Heart rate 88 /min 88 /min [facility] ([facility]) Regular Body mass index (BMI) [Ratio] 23.0 kg/m2 23.0 k g/m2 [facility] ([facility]) Body height 69 [in_i] 69 [in_i] [facility] ([facility]) 5'9" Body weight 156.00 [lb_av] 156.00 [lb_av] MEDEN T ([facility]) Diastolic blood pressure 70 mm[Hg] 70 mm[Hg] eCW1 ([facility]) Systolic blood pressure 116 mm[Hg] 116 mm[Hg] e CW1 ([facility]) Body temperature 97.8 [degF] 97.8 [degF] eCW1 ( [facility]) Respiratory rate 18 /min 18 /min eCW1 ([facility]) Heart rate 106 /min 106 /min eCW1 ([facility]) Body mass index (BMI) [Ratio] 22.65 kg/m2 22.65 kg/m2 eCW1 ([facility]) Body height 69 [in_us] 69 [in_us] eCW1 ([facility]) Body weight Measured 153.4 [lb_av] 153.4 [lb_av ] eCW1 ([facility]) ID Date Data Source [id number] 04/06/2020 09:59:53 AM EST [facility] Name Value Range Interpretation Code Description Data Source(s) WEIGHT RECORDED 167.00 pounds 167.00 pounds [facility] Height 69 Inches 069 Inches [facility] Patient Treatment Plan of Care Planned Activity Planned Date Details Description Data Source (s) Nebulizer - 03/24/2020 12:00:00 AM EST e CW1 ([facility]) Nebulizer - 03/24/2020 12:00:00 AM EST e CW1 ([facility]) Nebulizer - 03/24/2020 12:00:00 AM EST e CW1 ([facility]) Nebulizer - 03/24/2020 12:00:00 AM EST e CW1 ([facility]) Nebulizer/Tubing/Mouthpiece - 03/03/2020 12:00:00 AM EDT eCW1 ([facility]) Erythromycin 0.005 MG/MG Ophthalmic Ointment 03/03/2020 12:00:00 AM EDT eCW1 ([facility]) Erythromycin 0.005 MG/MG Ophthalmic Ointment 03/03/2020 12:00:00 AM EDT eCW1 ([facility]) Nebulizer/Tubing/Mouthpiece - 03/03/2020 12:00:00 AM EDT eCW1 ([facility]) Nebulizer/Tubing/Mouthpiece - 03/03/2020 12:00:00 AM EDT eCW1 ([facility]) Erythromycin 0.005 MG/MG Ophthalmic Ointment 03/03/2020 12:00:00 AM EDT eCW1 ([facility]) Nebulizer/Tubing/Mouthpiece - 03/03/2020 12:00:00 AM EDT eCW1 ([facility]) Erythromycin 0.005 MG/MG Ophthalmic Ointment 03/03/2020 12:00:00 AM EDT eCW1 ([facility]) Amiodarone HCl 200 MG 02/25/2020 01:00:00 AM EDT [facility] ([facility]) Amiodarone HCl 200 MG 02/10/2020 01:00:00 AM EDT [facility] ([facility]) Afrin 12 Hour 0.05 % 02/01/2020 01:00:00 AM EDT [facility] ([facility]) Clotrimazole 1 % 02/01/2020 01:00:00 AM EDT [facility] ([facility]) Oxygen 02/01/2020 01:00:00 AM EDT N ETSMART ([facility]) Sucralfate 1 GM 02/01/2020 01:00:00 AM EDT [facility] ([facility]) Voltaren 1 % 12/02/2019 01:00:00 AM EDT N E[facility] ([facility]) PredniSONE 20 MG 11/28/2019 01:00:00 AM EDT [facility] ([facility]) Chantix Continuing Month Marlon 1 MG 09/03/2019 12:00:00 AM EDT eCW1 ([facility]) Chantix Continuing Month Marlon 1 MG 09/03/2019 12:00:00 AM EDT eCW1 ([facility]) Chantix Continuing Month Marlon 1 MG 09/03/2019 12:00:00 AM EDT eCW1 ([facility]) Oxygen 07/09/2019 12:00:00 AM EST e CW1 ([facility]) Oxygen 07/09/2019 12:00:00 AM EST e CW1 ([facility]) Oxygen 07/09/2019 12:00:00 AM EST e CW1 ([facility]) Ofloxacin 3 MG/ML Ophthalmic Solution 06/29/2019 12:00:00 AM EST eCW1 ([facility]) Oxygen 06/29/2019 12:00:00 AM EST e CW1 ([facility]) Ofloxacin 3 MG/ML Ophthalmic Solution 06/29/2019 12:00:00 AM EST eCW1 ([facility]) Oxygen 06/29/2019 12:00:00 AM EST e CW1 ([facility]) Oxygen 06/29/2019 12:00:00 AM EST e CW1 ([facility]) Ofloxacin 3 MG/ML Ophthalmic Solution 06/29/2019 12:00:00 AM EST eCW1 ([facility]) Famotidine 40 MG Oral Tablet 05/28/2019 12:00:00 AM EST eCW1 ([facility]) Aleve 220 MG 05/21/2019 12:00:00 AM EST N ETS[facility] ([facility]) Chantix Continuing Month Marlon 1 MG 03/27/2019 12:00:00 AM EST eCW1 ([facility]) Chantix Starting Month Marlon 0.5 MG X 11 & 1 MG X 42 03/27/2019 12 :00:00 AM EST eCW1 ([facility]) Chantix Starting Month Marlon 0.5 MG X 11 & 1 MG X 42 11/25/2018 01 :00:00 AM EDT [facility]SM[facility] ([facility] ) Aleve PM 220-25 MG 12/25/2017 01:00:00 AM EDT [facility] ([facility]) Oxygen 07/06/2017 12:00:00 AM EST N E[facility] ([facility]) Alendronate Sodium 70 MG 04/26/2017 12:00:00 AM EST [facility] ([facility]) Diclofenac Sodium 1 % 04/26/2017 12:00:00 AM EST [facility] ([facility]) Ranitidine 04/26/2017 12:00:00 AM EST N ETSMART ([facility])
--- NOTE | 2020-05-18 18:32 | REP ---
INDICATION: fluid overload. COMPARISON: Thirty 20. TECHNIQUE: SINGLE PORTABLE AP VIEW OF THE CHEST WAS PERFORMED. FINDINGS: There are diffuse bilateral chronic interstitial densities which appear stable. There is mild cardiomegaly and vascular congestion. There is calcification and ectasia of the thoracic aorta. The mediastinal silhouette is grossly unchanged. Left pacemaker is again noted. IMPRESSION: Mild cardiomegaly and mild vascular congestion. Stable chronic interstitial densities bilaterally. <Electronically signed by David Jameson > 05/18/20 [id number]
[2020-05-18 18:35] LABS: BLOOD UREA NITROGEN 29 MG/DL (7-18); C REACTIVE PROTEIN QUANTITATIV 0.62 MG/DL (0.00-0.30); CALCIUM LEVEL 8.9 MG/DL (8.8-10.2); CARBON DIOXIDE LEVEL 36 MEQ/L (21-32); CHLORIDE LEVEL 101 MEQ/L (98-107); CK-MB VALUE MASS 3.9 NG/ML (<3.6); CPK CREATINE PHOSPHOKINASE 158 U/L (39-308); CREATININE FOR GFR 1.33 MG/DL (0.70-1.30); GLOMERULAR FILTRATION RATE 55.5 (>42); GLUCOSE, FASTING 94 MG/DL (70-100); MB/CK RELATIVE INDEX 2.47 (< OR =4); NT-PRO BNP 694 PG/ML (<450); POTASSIUM SERUM 4.5 MEQ/L (3.5-5.1); SODIUM LEVEL 138 MEQ/L (136-145); TROPONIN I < 0.02 NG/ML (< 0.10)
[2020-05-18] MEDS ORDERED: D31000TA2 PO (20:08)
[2020-05-18] MEDS ORDERED: PANT40TA29 PO (20:08)
[2020-05-18] MEDS ORDERED: ASPI81TA26 PO (20:08)
[2020-05-18] MEDS ORDERED: LEVO88TA3 PO (20:08)
[2020-05-18] MEDS ORDERED: ALB2.5NEB INH (20:08)
--- OUTSIDE RECORDS SUMMARY | 2020-05-18 21:44 | CCD ---
Author Author [facility] Organization [facility] Address Unknown Phone Unavailable Care Team Providers Care Tooling Inspector Name Role Phone Malgorzata eLnz Unavailable Unavailable Symenow, Malgorzata Pfeiffer PA Unavailable [...] Symenow, Malgorzata Margarette PA Unavailable Unavailable Symenow, Malogrzata Margarette PA Unavailable Unavailable Symenow, Malgorzata Margarette [...] Unavailable Unavailable Tika NELSON MD Unavailable Unavailable NELSONTkia Esquivel MD Unavailable Unavailable NELSONTika Esquivel MD [...] Unavailable Tai, L Octavio MD Unavailable Unavailable Ati, L Octavio MD Unavailable Unavailable Tai, L [...] is protected by Article 27-F of the [facility] Public Health law. If you continue you may have access to information: Regarding HIV / AIDS; Provided by facilities licensed or operated by the [facility] Office of Mental Health; or Provided by the [facility] Office for People With Developmental Disabilities. If such information is present, then the following [facility] mandated warning applies: This information has been [...] law may result in a fine or half-way sentence or both. A general authorization for the release of medical or other information is NOT sufficient authorization for further disc losure. Allergies and Adverse Reactions Type Description Substance Reaction Status Data Source(s ) ENVIRONMENTAL LATEX LATEX [facility] CLASS SULFA (sulfonamide) SULFA (sulfonamide) [facility] Drug allergy Latex Gloves Drug allergy rash, hives head to toe Activ e eCW1 ([facility]) Drug allergy Nicoderm CQ Nicotine Rash Active eCW1 ([facility]) Drug allergy Percocet Acetaminophen / Oxycodone hallucinations Act jarod eCW1 ([facility]) Vicodin Vicodin Vicodin altered mental status Active eC W1 ([facility]) Shellfish Shellfish Shellfish Rash/itching Active eCW1 ([facility]) Latex - Shellfish -Sulfa Drugs Latex - Shellfish -Sulfa Drug s Latex - Shellfish -Sulfa Drugs active NETSMART ([facility]) Vicodin Vicodin Acetaminophen 300 MG / Hydrocodone Bitartrate 5 MG Oral Tablet [Vicodin] altered mental status Active eCW1 ([facility]) Shellfish Shellfish Shellfish Rash/itching Active eCW1 ([facility]) Family History Family Member Name Family Member Gender Family Member Status Date o f Status Description Data Source(s) Unknown Unknown Problem MEDENT ([facility]) Unknown Unknown Problem MEDENT ([facility]) Encounters Encounter Providers Location Date Indications Data Source(s ) Office Visit Attender: Arpan WILD Physical Therapy 02:30:00 PM EST MEDENT ([facility]) Unknown [address] [address] 04/05/2020 12:00:00 AM EST eCW1 ([facility]) Outpatient Attender: Octavio Tai MD Physical Therapy 03/27/2020 0 8:35:00 AM EST MEDENT ([facility]) Unknown [address] [address] 03/24/2020 12:00:00 AM EST eCW1 ([facility]) Office Visit, Est Pt., Level [address] [place] [address] 03/22/2020 12:00:00 AM EST eCW1 ([facility]) Unknown [address] [address] 03/15/2020 12:00:00 AM EST eCW1 ([facility]) Outpatient Attender: CARLOS CALDERON MD 03/11/2020 07:11:51 PM EST [facility] ( in Healthcare facility) Attender: SABINA CALDERON MDAdmitter: CARLOS CALDERON MD 03/11/2020 01:58:00 PM EST - 03/13/2020 02:37:00 PM EST [facility] Outpatient Attender: CARLOS CALDERON MDAdmitter: CARLOS CALDERON MD 03/11/2020 01:58:00 PM EST - 03/13/2020 02:37:00 PM EST RETAINED LENS LEFT EYE [facility] RETAINED LENS LEFT EYE Patient discharged. Outpatient Attender: CARLOS CALDERON MD 03/11/2020 01:58:00 PM [facility] Outpatient Attender: Yuliet Goss MDConsultant: PCP KINJAL 03/11/2020 10:42:44 AM EST - 03/14/2020 01:39:00 PM EST [facility] Patient discharged. Outpatient Attender: Margarette WILD Main Office 03/10/2020 02:00:00 PM EST MEDENT ([facility]) [place] [address] [facility] [address] 03/10/2020 12:00:00 AM EST eCW1 [facility] Outpatient Attender: Yuliet Goss MDConsultant: PCP NO 03/09/2020 08:30:00 AM EST - 03/09/2020 11:10:00 AM EST [facility] Patient discharged. [place] [address] [facility] [facility] [address] 03/09/2020 12:00:00 AM EST eCW1 ([facility]) Unknown [address] [facility] [facility] [address] 03/07/2020 12:00:00 AM EST eCW1 ([facility]) Outpatient Attender: Yuliet Goss MDConsultant: PCP NO 03/03/2020 10:57:11 AM EDT - 03/08/2020 12:00:00 PM EST [facility] Patient discharged. [place] [address] [facility] [facility] [address] 03/03/2020 12:00:00 AM EDT eCW1 ([facility]) Unknown [address] [facility] [facility] [address] 03/03/2020 12:00:00 AM EDT eCW1 ([facility]) Outpatient Attender: Margarette WILD Main Office 02/24/2020 03:15:00 PM EDT MEDENT ([facility]) Unknown [address] [facility] [facility] [address] 02/05/2020 12:00:00 AM EDT eCW1 ([facility]) Office Visit Attender: SOLOMON NELSON MD Main Office 02/04/2020 12:27:0 0 PM EDT MEDENT ([facility]) Outpatient Attender: Margarette WILD Main Office 01/26/2020 01:30:00 PM EDT MEDENT ([facility]) Office Visit Attender: SOLOMON NELSON MD Main Office 01/05/2020 10:20:0 0 AM EDT MEDENT ([facility]) Outpatient Attender: Yuliet Goss MDConsultant: PCP NO 12/15/2019 12:47:18 PM EDT - 12/18/2019 02:12:00 PM EDT [facility] Patient discharged. Outpatient Attender: Yuliet Goss MDConsultant: PCP NO 12/14/2019 08:16:02 AM EDT - 12/16/2019 02:13:00 PM EDT [facility] Patient discharged. Office Visit Attender: SOLOMON NELSON MD Main Office 12/03/2019 02:04:0 0 PM EDT MEDENT ([facility]) Office Visit Attender: SOLOMON NELSON MD Main Office 10/28/2019 12:44:0 0 PM EDT MEDENT ([facility]) [facility] [address] [facility] [address] 10/26/2019 12:00:00 AM EDT eCW1 ([facility]) Outpatient Attender: Margarette WILD Main Office 10/22/2019 01:00:00 PM EDT MEDENT ([facility]) Outpatient Referrer: Margarette WILD 10/09/2019 05:13:00 A M EDT [facility] Unknown [address] [facility] [facility] [address] 10/08/2019 12:00:00 AM EDT eCW1 ([facility]) Unknown [address] [facility] [facility] [address] 10/08/2019 12:00:00 AM EDT eCW1 ([facility]) [facility] [place] [address] [facility] [address] 10/01/2019 12:00:00 AM EDT eCW1 ([facility]) [facility] [place] [address] [facility] [facility] [address] 09/03/2019 12:00:00 AM EDT eCW1 ([facility]) [facility] [address] [facility] [facility] [address] 08/04/2019 12:00:00 AM EDT eCW1 ([facility]) [address] [address] 08/04/2019 12:00:00 AM EDT eCW1 ([facility] [address] [place] [address] 07/09/2019 12:00:00 AM EST eCW1 ([facility]) [address] [address] 07/07/2019 12:00:00 AM EST eCW1 ([facility]) [address] [address] 07/06/2019 12:00:00 AM EST eCW1 ([facility]) Office Visit Attender: SOLOMON NELSON MD Main Office 07/01/2019 07:55:0 0 AM EST MEDENT ([facility]) [address] [address] 06/29/2019 12:00:00 AM EST eCW1 ([facility]) 06/10/2019 12:00:00 AM EST - 020 05:18:38 PM EDT NETSMART ([facility]) [address] [address] 05/27/2019 12:00:00 AM EST eCW1 ([facility] [address] [address] 05/14/2019 12:00:00 AM EST eCW1 ([facility]) [address] [address] 05/12/2019 12:00:00 AM EST eCW1 ([facility]) [address] [address] 04/21/2019 12:00:00 AM EST eCW1 ([facility]) Outpatient Attender: Margarette WILD Main Office 04/15/2019 08:15:00 AM EST MEDENT ([facility]) [facility] [address] [address] 04/14/2019 12:00:00 AM EST eCW1 ([facility]) [facility] [place] [address] [facility] [address] 03/31/2019 12:00:00 AM EST eCW1 ([facility]) [facility] [place] [address] [facility] [facility] [address] 03/31/2019 12:00:00 AM EST eCW1 ([facility]) [facility] [place] [address] [facility] [facility] [address] 03/27/2019 12:00:00 AM EST eCW1 ([facility]) [facility] [place] [address] [facility] [address] 03/23/2019 12:00:00 AM EST eCW1 ([facility]) Immunizations Vaccine Date Status Description Data Source(s) influenza, recombinant, quadrIvalent,injectable, prese rvative free 03/03/2020 02:38:00 PM EDT completed eCW1 ([facility]) influenza, recombinant, quadrIvalent,injectable, prese rvative free 03/03/2020 02:38:00 PM EDT completed eCW1 ([facility]) influenza, recombinant, quadrIvalent,injectable, prese rvative free 03/03/2020 02:38:00 PM EDT completed eCW1 ([facility]) influenza, recombinant, quadrIvalent,injectable, prese rvative free 03/03/2020 02:38:00 PM EDT completed eCW1 ([facility]) influenza, recombinant, quadrIvalent,injectable, prese rvative free 03/03/2020 02:38:00 PM EDT completed eCW1 ([facility]) influenza, recombinant, quadrIvalent,injectable, prese rvative free 03/03/2020 02:38:00 PM EDT completed eCW1 ([facility]) influenza, recombinant, quadrIvalent,injectable, prese rvative free 03/03/2020 02:38:00 PM EDT completed eCW1 ([facility]) influenza, recombinant, quadrIvalent,injectable, prese rvative free 03/03/2020 02:38:00 PM EDT completed eCW1 ([facility]) influenza, recombinant, quadrIvalent,injectable, prese rvative free 03/03/2020 02:38:00 PM EDT completed eCW1 ([facility]) influenza, recombinant, quadrIvalent,injectable, prese rvative free 03/27/2019 11:06:00 AM EST completed eCW1 ([facility]) influenza, recombinant, quadrIvalent,injectable, prese rvative free 03/27/2019 11:06:00 AM EST completed eCW1 ([facility]) influenza, recombinant, quadrIvalent,injectable, prese rvative free 03/27/2019 11:06:00 AM EST completed eCW1 ([facility]) influenza, recombinant, quadrIvalent,injectable, prese rvative free 03/27/2019 11:06:00 AM EST completed eCW1 ([facility]) influenza, recombinant, quadrIvalent,injectable, prese rvative free 03/27/2019 11:06:00 AM EST completed eCW1 ([facility]) influenza, recombinant, quadrIvalent,injectable, prese rvative free 03/27/2019 11:06:00 AM EST completed eCW1 ([facility]) influenza, recombinant, quadrIvalent,injectable, prese rvative free 03/27/2019 11:06:00 AM EST completed eCW1 ([facility]) influenza, recombinant, quadrIvalent,injectable, prese rvative free 03/27/2019 11:06:00 AM EST completed eCW1 ([facility]) influenza, recombinant, quadrIvalent,injectable, prese rvative free 03/27/2019 11:06:00 AM EST completed eCW1 ([facility]) influenza, recombinant, quadrIvalent,injectable, prese rvative free 03/27/2019 11:06:00 AM EST completed eCW1 ([facility]) influenza, recombinant, quadrIvalent,injectable, prese rvative free 03/27/2019 11:06:00 AM EST completed eCW1 ([facility]) influenza, recombinant, quadrIvalent,injectable, prese rvative free 03/27/2019 11:06:00 AM EST completed eCW1 ([facility]) influenza, recombinant, quadrIvalent,injectable, prese rvative free 03/27/2019 11:06:00 AM EST completed eCW1 ([facility]) Medications Medication Brand Name Start Date Product Form Dose Route Admi nistrative Instructions Pharmacy Instructions Status Indications Reaction Description Data Source(s) Nebulizer - Nebulizer - 03/24/2020 12:00:00 AM EST active Nebulizer - eCW1 ([facility]) Nebulizer - Nebulizer - 03/24/2020 12:00:00 AM EST active Nebulizer - eCW1 ([facility]) Nebulizer - Nebulizer - 03/24/2020 12:00:00 AM EST active Nebulizer - eCW1 ([facility]) Nebulizer - Nebulizer - 03/24/2020 12:00:00 AM EST active Nebulizer - eCW1 ([facility]) Amiodarone hydrochloride 200 MG Oral Tablet Amiodarone HCL 03/10/2020 12:00:00 AM EST ORAL active [facility]ENT ([facility]) Nebulizer/Tubing/Mouthpiece - Nebulizer/Tubing/Mouthpiece - 03/03/2020 12:00:00 AM EDT active Nebulizer/Tubing/ Mouthpiece - eCW1 ([facility]) Nebulizer/Tubing/Mouthpiece - Nebulizer/Tubing/Mouthpiece - 03/03/2020 12:00:00 AM EDT active Nebulizer/Tubing/ Mouthpiece - eCW1 ([facility]) Nebulizer/Tubing/Mouthpiece - Nebulizer/Tubing/Mouthpiece - 03/03/2020 12:00:00 AM EDT active Nebulizer/Tubing/ Mouthpiece - eCW1 ([facility]) Nebulizer/Tubing/Mouthpiece - Nebulizer/Tubing/Mouthpiece - 03/03/2020 12:00:00 AM EDT active Nebulizer/Tubing/ Mouthpiece - eCW1 ([facility]) Erythromycin 0.005 MG/MG Ophthalmic Ointment Erythromy juan c 5 MG/GM Erythromycin 5 MG/GM 03/03/2020 12:00:00 AM EDT active Erythromycin 5 MG/GM eCW1 ([facility]) Nebulizer/Tubing/Mouthpiece - Nebulizer/Tubing/Mouthpiece - 03/03/2020 12:00:00 AM EDT active Nebulizer/Tubing/ Mouthpiece - eCW1 ([facility]) Erythromycin 0.005 MG/MG Ophthalmic Ointment Erythromy juan c 5 MG/GM Erythromycin 5 MG/GM 03/03/2020 12:00:00 AM EDT active Erythromycin 5 MG/GM eCW1 ([facility]) Nebulizer/Tubing/Mouthpiece - Nebulizer/Tubing/Mouthpiece - 03/03/2020 12:00:00 AM EDT active Nebulizer/Tubing/ Mouthpiece - eCW1 ([facility]) Nebulizer/Tubing/Mouthpiece - Nebulizer/Tubing/Mouthpiece - 03/03/2020 12:00:00 AM EDT active Nebulizer/Tubing/ Mouthpiece - eCW1 ([facility]) Erythromycin 0.005 MG/MG Ophthalmic Ointment Erythromy juan c 5 MG/GM Erythromycin 5 MG/GM 03/03/2020 12:00:00 AM EDT active Erythromycin 5 MG/GM eCW1 ([facility]) Erythromycin 0.005 MG/MG Ophthalmic Ointment Erythromy juan c 5 MG/GM Erythromycin 5 MG/GM 03/03/2020 12:00:00 AM EDT active Erythromycin 5 MG/GM eCW1 ([facility]) Erythromycin 0.005 MG/MG Ophthalmic Ointment Erythromy juan c 5 MG/GM Erythromycin 5 MG/GM 03/03/2020 12:00:00 AM EDT active Erythromycin 5 MG/GM eCW1 ([facility]) Erythromycin 0.005 MG/MG Ophthalmic Ointment Erythromy juan c 5 MG/GM Erythromycin 5 MG/GM 03/03/2020 12:00:00 AM EDT active Erythromycin 5 MG/GM eCW1 ([facility]) Nebulizer/Tubing/Mouthpiece - Nebulizer/Tubing/Mouthpiece - 03/03/2020 12:00:00 AM EDT active Nebulizer/Tubing/ Mouthpiece - eCW1 ([facility]) Erythromycin 0.005 MG/MG Ophthalmic Ointment Erythromy juan c 5 MG/GM Erythromycin 5 MG/GM 03/03/2020 12:00:00 AM EDT active Erythromycin 5 MG/GM eCW1 ([facility]) Nebulizer/Tubing/Mouthpiece - Nebulizer/Tubing/Mouthpiece - 03/03/2020 12:00:00 AM EDT active Nebulizer/Tubing/ Mouthpiece - eCW1 ([facility]) Erythromycin 0.005 MG/MG Ophthalmic Ointment Erythromy juan c 5 MG/GM Erythromycin 5 MG/GM 03/03/2020 12:00:00 AM EDT active Erythromycin 5 MG/GM eCW1 ([facility]) Erythromycin 0.005 MG/MG Ophthalmic Ointment Erythromy juan c 5 MG/GM Erythromycin 5 MG/GM 03/03/2020 12:00:00 AM EDT active Erythromycin 5 MG/GM eCW1 ([facility]) Amiodarone HCl 200 MG Amiodarone HCl 02/25/2020 01:00:00 AM EDT 200.0 {mg} completed NETSMART ([facility]) Amiodarone hydrochloride 200 MG Oral Tablet Amiodarone HCL 02/24/2020 12:00:00 AM EDT ORAL completed MEDENT ([facility]) Calcium Carbonate 500 MG Chewable Tablet [Tums] Tums 02/23/2020 12:00:00 AM EDT ORAL active MEDENT ( [facility]) Amiodarone HCl 200 MG Amiodarone HCl 02/10/2020 01:00:00 AM EDT completed NETSMART ([facility]) Amiodarone hydrochloride 200 MG Oral Tablet Amiodarone HCL 02/05/2020 12:00:00 AM EDT ORAL completed MEDENT ([facility]) Afrin 12 Hour 0.05 % Afrin 12 Hour 02/01/2020 01:00:00 AM EDT completed NETSMART ([facility]) Clotrimazole 1 % Clotrimazole 02/01/2020 01:00:00 AM EDT completed NETSMART ([facility]) Oxygen Oxygen 02/01/2020 01:00:00 AM EDT 3.0 {L} comple torrey NETSMART ([facility]) Sucralfate 1 GM Sucralfate 02/01/2020 01:00:00 AM EDT completed NETSMART ([facility]) Famotidine 40 MG Oral Tablet Famotidine 01/25/2020 12:00:00 AM EDT ORAL active MEDENT ([facility]) Diclofenac Sodium 0.01 MG/MG Topical Gel Voltaren 01/25/2020 12 :00:00 AM EDT active MEDENT ([facility]) Voltaren 1 % Voltaren 12/02/2019 01:00:00 AM EDT c ompleted NETSMART ([facility]) PredniSONE 20 MG PredniSONE 11/28/2019 01:00:00 AM EDT 3.0 {tabl et} completed NETSMART ([facility]) Chantix Continuing Month Marlon 1 MG Chantix Continuing Month P ak 1 MG 09/03/2019 12:00:00 AM EDT suspended Chant ix Continuing Month Marlon 1 MG eCW1 ([facility]) Chantix Continuing Month Marlon 1 MG Chantix Continuing Month P ak 1 MG 09/03/2019 12:00:00 AM EDT active Chantix Continuing Month Marlon 1 MG eCW1 ([facility]) Chantix Continuing Month Marlon 1 MG Chantix Continuing Month P ak 1 MG 09/03/2019 12:00:00 AM EDT suspended Chant ix Continuing Month Marlon 1 MG eCW1 ([facility]) Chantix Continuing Month Marlon 1 MG Chantix Continuing Month P ak 1 MG 09/03/2019 12:00:00 AM EDT active Chantix Continuing Month Marlon 1 MG eCW1 ([facility]) Chantix Continuing Month Marlon 1 MG Chantix Continuing Month P ak 1 MG 09/03/2019 12:00:00 AM EDT suspended Chant ix Continuing Month Marlon 1 MG eCW1 ([facility]) Chantix Continuing Month Marlon 1 MG Chantix Continuing Month P ak 1 MG 09/03/2019 12:00:00 AM EDT suspended Chant ix Continuing Month Marlon 1 MG eCW1 ([facility]) Chantix Continuing Month Marlon 1 MG Chantix Continuing Month P ak 1 MG 09/03/2019 12:00:00 AM EDT active as direc torrey eCW1 ([facility]) Chantix Continuing Month Marlon 1 MG Chantix Continuing Month P ak 1 MG 09/03/2019 12:00:00 AM EDT suspended Chant ix Continuing Month Marlon 1 MG eCW1 ([facility]) Chantix Continuing Month Marlon 1 MG Chantix Continuing Month P ak 1 MG 09/03/2019 12:00:00 AM EDT suspended Chant ix Continuing Month Marlon 1 MG eCW1 ([facility]) Chantix Continuing Month Marlon 1 MG Chantix Continuing Month P ak 1 MG 09/03/2019 12:00:00 AM EDT suspended Chant ix Continuing Month Marlon 1 MG eCW1 ([facility]) Chantix Continuing Month Marlon 1 MG Chantix Continuing Month P ak 1 MG 09/03/2019 12:00:00 AM EDT suspended Chant ix Continuing Month Marlon 1 MG eCW1 ([facility]) Chantix Continuing Month Marlon 1 MG Chantix Continuing Month P ak 1 MG 09/03/2019 12:00:00 AM EDT suspended Chant ix Continuing Month Marlon 1 MG eCW1 ([facility]) Chantix Continuing Month Marlon 1 MG Chantix Continuing Month P ak 1 MG 09/03/2019 12:00:00 AM EDT suspended Chant ix Continuing Month Marlon 1 MG eCW1 ([facility]) Oxygen UNK 07/09/2019 12:00:00 AM EST active Oxygen eCW1 ([facility]) Oxygen UNK 07/09/2019 12:00:00 AM EST active Oxygen eCW1 ([facility]) Oxygen UNK 07/09/2019 12:00:00 AM EST active Oxygen eCW1 ([facility]) Oxygen UNK 07/09/2019 12:00:00 AM EST active Oxygen eCW1 ([facility]) Oxygen UNK 07/09/2019 12:00:00 AM EST active Oxygen eCW1 ([facility]) Oxygen UNK 07/09/2019 12:00:00 AM EST active 2LPM eCW1 ([facility]) Oxygen UNK 07/09/2019 12:00:00 AM EST active Oxygen eCW1 ([facility]) Oxygen UNK 07/09/2019 12:00:00 AM EST active Oxygen eCW1 ([facility]) Oxygen UNK 07/09/2019 12:00:00 AM EST active Oxygen eCW1 ([facility]) Oxygen UNK 07/09/2019 12:00:00 AM EST active Oxygen eCW1 ([facility]) Oxygen UNK 07/09/2019 12:00:00 AM EST active Oxygen eCW1 ([facility]) Oxygen UNK 07/09/2019 12:00:00 AM EST active Oxygen eCW1 ([facility]) Oxygen UNK 07/09/2019 12:00:00 AM EST active Oxygen eCW1 ([facility]) Ofloxacin 3 MG/ML Ophthalmic Solution Ofloxacin 0.3 % Ofloxa juan c 0.3 % 06/29/2019 12:00:00 AM EST 1.0 {drop_into_affected_eye} oneill spended Ofloxacin 0.3 % eCW1 ([facility]) Oxygen UNK 06/29/2019 12:00:00 AM EST active Oxygen eCW1 ([facility]) Oxygen UNK 06/29/2019 12:00:00 AM EST active Oxygen eCW1 ([facility]) Oxygen UNK 06/29/2019 12:00:00 AM EST active Oxygen eCW1 ([facility]) Oxygen UNK 06/29/2019 12:00:00 AM EST active Oxygen eCW1 ([facility]) Ofloxacin 3 MG/ML Ophthalmic Solution Ofloxacin 0.3 % Ofloxa juan c 0.3 % 06/29/2019 12:00:00 AM EST 1.0 {drop_into_affected_eye} oneill spended Ofloxacin 0.3 % eCW1 ([facility]) Oxygen UNK 06/29/2019 12:00:00 AM EST acti ve continuous and portable eCW1 ([facility] [facility]) Ofloxacin 3 MG/ML Ophthalmic Solution Ofloxacin 0.3 % Ofloxa juan c 0.3 % 06/29/2019 12:00:00 AM EST 1.0 {drop_into_affected_eye} oneill spended Ofloxacin 0.3 % eCW1 ([facility]) Oxygen UNK 06/29/2019 12:00:00 AM EST active Oxygen eCW1 ([facility]) Ofloxacin 3 MG/ML Ophthalmic Solution Ofloxacin 0.3 % Ofloxa juan c 0.3 % 06/29/2019 12:00:00 AM EST 1.0 {drop_into_affected_eye} ac tive Ofloxacin 0.3 % eCW1 ([facility]) Ofloxacin 3 MG/ML Ophthalmic Solution Ofloxacin 0.3 % Ofloxa juan c 0.3 % 06/29/2019 12:00:00 AM EST active 1 drop into affected eye eCW1 ([facility]) Oxygen UNK 06/29/2019 12:00:00 AM EST active Oxygen eCW1 ([facility]) Ofloxacin 3 MG/ML Ophthalmic Solution Ofloxacin 0.3 % Ofloxa juan c 0.3 % 06/29/2019 12:00:00 AM EST 1.0 {drop_into_affected_eye} oneill spended Ofloxacin 0.3 % eCW1 ([facility]) Oxygen UNK 06/29/2019 12:00:00 AM EST active Oxygen eCW1 ([facility]) Ofloxacin 3 MG/ML Ophthalmic Solution Ofloxacin 0.3 % Ofloxa juan c 0.3 % 06/29/2019 12:00:00 AM EST 1.0 {drop_into_affected_eye} oneill spended Ofloxacin 0.3 % eCW1 ([facility]) Ofloxacin 3 MG/ML Ophthalmic Solution Ofloxacin 0.3 % Ofloxa juan c 0.3 % 06/29/2019 12:00:00 AM EST 1.0 {drop_into_affected_eye} oneill spended Ofloxacin 0.3 % eCW1 ([facility]) Oxygen UNK 06/29/2019 12:00:00 AM EST active Oxygen eCW1 ([facility]) Ofloxacin 3 MG/ML Ophthalmic Solution Ofloxacin 0.3 % Ofloxa juan c 0.3 % 06/29/2019 12:00:00 AM EST 1.0 {drop_into_affected_eye} oneill spended Ofloxacin 0.3 % eCW1 ([facility]) Ofloxacin 3 MG/ML Ophthalmic Solution Ofloxacin 0.3 % Ofloxa juan c 0.3 % 06/29/2019 12:00:00 AM EST 1.0 {drop_into_affected_eye} oneill spended Ofloxacin 0.3 % eCW1 ([facility]) Oxygen UNK 06/29/2019 12:00:00 AM EST active Oxygen eCW1 ([facility]) Ofloxacin 3 MG/ML Ophthalmic Solution Ofloxacin 0.3 % Ofloxa juan c 0.3 % 06/29/2019 12:00:00 AM EST 1.0 {drop_into_affected_eye} ac tive Ofloxacin 0.3 % eCW1 ([facility]) Ofloxacin 3 MG/ML Ophthalmic Solution Ofloxacin 0.3 % Ofloxa juan c 0.3 % 06/29/2019 12:00:00 AM EST 1.0 {drop_into_affected_eye} oneill spended Ofloxacin 0.3 % eCW1 ([facility]) Ofloxacin 3 MG/ML Ophthalmic Solution Ofloxacin 0.3 % Ofloxa juan c 0.3 % 06/29/2019 12:00:00 AM EST 1.0 {drop_into_affected_eye} oneill spended Ofloxacin 0.3 % eCW1 ([facility]) Oxygen UNK 06/29/2019 12:00:00 AM EST active Oxygen eCW1 ([facility]) Oxygen UNK 06/29/2019 12:00:00 AM EST active Oxygen eCW1 ([facility]) Oxygen UNK 06/29/2019 12:00:00 AM EST active Oxygen eCW1 ([facility]) Famotidine 40 MG Oral Tablet Famotidine 40 MG 05/28/2019 12:00:00 A M EST 1.0 {tablet_at_bedtime} suspended Famotidine 40 MG eCW1 ([facility]) Famotidine 40 MG Oral Tablet Famotidine 40 MG 05/28/2019 12:00:00 A M EST 1.0 {tablet_at_bedtime} suspended Famotidine 40 MG eCW1 ([facility]) Famotidine 40 MG Oral Tablet Famotidine 40 MG 05/28/2019 12:00:00 A M EST 1.0 {tablet_at_bedtime} suspended Famotidine 40 MG eCW1 ([facility]) Famotidine 40 MG Oral Tablet Famotidine 40 MG 05/28/2019 12:00:00 A M EST 1.0 {tablet_at_bedtime} suspended Famotidine 40 MG eCW1 ([facility]) Famotidine 40 MG Oral Tablet Famotidine 40 MG 05/28/2019 12:00:00 A M EST 1.0 {tablet_at_bedtime} suspended Famotidine 40 MG eCW1 ([facility]) Famotidine 40 MG Oral Tablet Famotidine 40 MG 05/28/2019 12:00:00 A M EST 1.0 {tablet_at_bedtime} suspended Famotidine 40 MG eCW1 ([facility]) Famotidine 40 MG Oral Tablet Famotidine 40 MG 05/28/2019 12:00:[address] suspended 1 tablet at bedtime eCW1 ([facility]) Famotidine 40 MG Oral Tablet Famotidine 40 MG 05/28/2019 12:00:00 A M EST 1.0 {tablet_at_bedtime} suspended Famotidine 40 MG eCW1 ([facility]) Famotidine 40 MG Oral Tablet Famotidine 40 MG 05/28/2019 12:00:00 A M EST 1.0 {tablet_at_bedtime} suspended Famotidine 40 MG eCW1 ([facility]) Famotidine 40 MG Oral Tablet Famotidine 40 MG 05/28/2019 12:00:00 A M EST 1.0 {tablet_at_bedtime} suspended Famotidine 40 MG eCW1 ([facility]) Famotidine 40 MG Oral Tablet Famotidine 40 MG 05/28/2019 12:00:00 A M EST 1.0 {tablet_at_bedtime} suspended Famotidine 40 MG eCW1 ([facility]) Famotidine 40 MG Oral Tablet Famotidine 40 MG 05/28/2019 12:00:[address] active 1 tablet at bedtime eCW1 ([facility]) Famotidine 40 MG Oral Tablet Famotidine 40 MG 05/28/2019 12:00:00 A M EST 1.0 {tablet_at_bedtime} suspended Famotidine 40 MG eCW1 ([facility]) Famotidine 40 MG Oral Tablet Famotidine 40 MG 05/28/2019 12:00:00 A M EST 1.0 {tablet_at_bedtime} suspended Famotidine 40 MG eCW1 ([facility]) Aleve 220 MG Aleve 05/21/2019 12:00:00 AM EST comp leted NETSMART ([facility]) varenicline 1 MG Oral Tablet [Chantix] Chantix 04/14/2019 12:00:00 AM EST ORAL active MEDENT ([facility]) Chantix Starting Month Marlon 0.5 MG X 11 & 1 MG X 42 Ruchi ntix Starting Month Marlon 0.5 MG X 11 & 1 MG X 42 03/27/2019 12:00:00 AM EST suspended Chantix Starting Month Marlon 0.5 MG X 11 & 1 MG X 42 eCW1 ([facility]) Chantix Continuing Month Marlon 1 MG Chantix Continuing Month P ak 1 MG 03/27/2019 12:00:00 AM EST suspended 1 tab let eCW1 ([facility]) Chantix Continuing Month Marlon 1 MG Chantix Continuing Month P ak 1 MG 03/27/2019 12:00:00 AM EST 1.0 {tablet} suspended Chantix Continuing Month Marlon 1 MG eCW1 ([facility]) Chantix Starting Month Marlon 0.5 MG X 11 & 1 MG X 42 Ruchi ntix Starting Month Marlon 0.5 MG X 11 & 1 MG X 42 03/27/2019 12:00:00 AM EST suspended Chantix Starting Month Marlon 0.5 MG X 11 & 1 MG X 42 eCW1 ([facility]) Chantix Continuing Month Marlon 1 MG Chantix Continuing Month P ak 1 MG 03/27/2019 12:00:00 AM EST 1.0 {tablet} suspended Chantix Continuing Month Marlon 1 MG eCW1 ([facility]) Chantix Starting Month Marlon 0.5 MG X 11 & 1 MG X 42 Ruchi ntix Starting Month Marlon 0.5 MG X 11 & 1 MG X 42 03/27/2019 12:00:00 AM EST active as directed eCW1 ([facility]) Chantix Continuing Month Marlon 1 MG Chantix Continuing Month P ak 1 MG 03/27/2019 12:00:00 AM EST 1.0 {tablet} suspended Chantix Continuing Month Marlon 1 MG eCW1 ([facility]) Chantix Starting Month Marlon 0.5 MG X 11 & 1 MG X 42 Ruchi ntix Starting Month Marlon 0.5 MG X 11 & 1 MG X 42 03/27/2019 12:00:00 AM EST suspended Chantix Starting Month Marlon 0.5 MG X 11 & 1 MG X 42 eCW1 ([facility]) Chantix Starting Month Marlon 0.5 MG X 11 & 1 MG X 42 Ruchi ntix Starting Month Marlon 0.5 MG X 11 & 1 MG X 42 03/27/2019 12:00:00 AM EST suspended Chantix Starting Month Marlon 0.5 MG X 11 & 1 MG X 42 eCW1 ([facility]) Chantix Starting Month Marlon 0.5 MG X 11 & 1 MG X 42 Ruchi ntix Starting Month Marlon 0.5 MG X 11 & 1 MG X 42 03/27/2019 12:00:00 AM EST suspended Chantix Starting Month Marlon 0.5 MG X 11 & 1 MG X 42 eCW1 ([facility]) Chantix Continuing Month Marlon 1 MG Chantix Continuing Month P ak 1 MG 03/27/2019 12:00:00 AM EST active 1 tablet eCW1 ([facility]) Chantix Continuing Month Marlon 1 MG Chantix Continuing Month P ak 1 MG 03/27/2019 12:00:00 AM EST 1.0 {tablet} suspended Chantix Continuing Month Marlon 1 MG eCW1 ([facility]) Chantix Continuing Month Marlon 1 MG Chantix Continuing Month P ak 1 MG 03/27/2019 12:00:00 AM EST 1.0 {tablet} suspended Chantix Continuing Month Marlon 1 MG eCW1 ([facility]) Chantix Starting Month Marlon 0.5 MG X 11 & 1 MG X 42 Ruchi ntix Starting Month Marlon 0.5 MG X 11 & 1 MG X 42 03/27/2019 12:00:00 AM EST suspended Chantix Starting Month Marlon 0.5 MG X 11 & 1 MG X 42 eCW1 ([facility]) Chantix Starting Month Marlon 0.5 MG X 11 & 1 MG X 42 Ruchi ntix Starting Month Marlon 0.5 MG X 11 & 1 MG X 42 03/27/2019 12:00:00 AM EST suspended Chantix Starting Month Marlon 0.5 MG X 11 & 1 MG X 42 eCW1 ([facility]) Chantix Starting Month Marlon 0.5 MG X 11 & 1 MG X 42 Ruchi ntix Starting Month Marlon 0.5 MG X 11 & 1 MG X 42 03/27/2019 12:00:00 AM EST suspended Chantix Starting Month Marlon 0.5 MG X 11 & 1 MG X 42 eCW1 ([facility]) Chantix Starting Month Marlon 0.5 MG X 11 & 1 MG X 42 Ruchi ntix Starting Month Marlon 0.5 MG X 11 & 1 MG X 42 03/27/2019 12:00:00 AM EST suspended Chantix Starting Month Marlon 0.5 MG X 11 & 1 MG X 42 eCW1 ([facility]) Chantix Starting Month Marlon 0.5 MG X 11 & 1 MG X 42 Ruchi ntix Starting Month Marlon 0.5 MG X 11 & 1 MG X 42 03/27/2019 12:00:00 AM EST suspended as directed eCW1 ([facility]) Chantix Continuing Month Marlon 1 MG Chantix Continuing Month P ak 1 MG 03/27/2019 12:00:00 AM EST 1.0 {tablet} suspended Chantix Continuing Month Marlon 1 MG eCW1 ([facility]) Chantix Starting Month Marlon 0.5 MG X 11 & 1 MG X 42 Ruchi ntix Starting Month Marlon 0.5 MG X 11 & 1 MG X 42 03/27/2019 12:00:00 AM EST suspended Chantix Starting Month Marlon 0.5 MG X 11 & 1 MG X 42 eCW1 ([facility]) Chantix Continuing Month Marlon 1 MG Chantix Continuing Month P ak 1 MG 03/27/2019 12:00:00 AM EST 1.0 {tablet} suspended Chantix Continuing Month Marlon 1 MG eCW1 ([facility]) Chantix Continuing Month Marlon 1 MG Chantix Continuing Month P ak 1 MG 03/27/2019 12:00:00 AM EST 1.0 {tablet} suspended Chantix Continuing Month Marlon 1 MG eCW1 ([facility]) Chantix Continuing Month Marlon 1 MG Chantix Continuing Month P ak 1 MG 03/27/2019 12:00:00 AM EST 1.0 {tablet} suspended Chantix Continuing Month Marlon 1 MG eCW1 ([facility]) Chantix Continuing Month Marlon 1 MG Chantix Continuing Month P ak 1 MG 03/27/2019 12:00:00 AM EST 1.0 {tablet} suspended Chantix Continuing Month Marlon 1 MG eCW1 ([facility]) Chantix Continuing Month Marlon 1 MG Chantix Continuing Month P ak 1 MG 03/27/2019 12:00:00 AM EST 1.0 {tablet} suspended Chantix Continuing Month Marlon 1 MG eCW1 ([facility]) Chantix Continuing Month Marlon 1 MG Chantix Continuing Month P ak 1 MG 03/27/2019 12:00:00 AM EST 1.0 {tablet} suspended Chantix Continuing Month Marlon 1 MG eCW1 ([facility]) Chantix Starting Month Marlon 0.5 MG X 11 & 1 MG X 42 Ruchi ntix Starting Month Marlon 0.5 MG X 11 & 1 MG X 42 03/27/2019 12:00:00 AM EST suspended Chantix Starting Month Marlon 0.5 MG X 11 & 1 MG X 42 eCW1 ([facility]) Chantix Starting Month Marlon 0.5 MG X 11 & 1 MG X 42 Ruchi ntix Starting Month Marlon 0.5 MG X 11 & 1 MG X 42 03/27/2019 12:00:00 AM EST suspended Chantix Starting Month Marlon 0.5 MG X 11 & 1 MG X 42 eCW1 ([facility]) Chantix Starting Month Marlon 0.5 MG X 11 & 1 MG X 42 Chantix S tarting Month Marlon 11/25/2018 01:00:00 AM EDT completed NETSMART ([facility]) Aleve PM 220-25 MG Aleve PM 12/25/2017 01:00:00 AM EDT completed NETSMART ([facility] ) Oxygen Oxygen 07/06/2017 12:00:00 AM EST 0 {asp} comple torrey NETSMART ([facility]) Alendronate Sodium 70 MG Alendronate Sodium 04/26/2017 12:00:00 AM EST completed NETSMART ([facility]) Diclofenac Sodium 1 % Diclofenac Sodium 04/26/2017 12:00:00 AM EST completed NETSMART ([facility]) Ranitidine Ranitidine 04/26/2017 12:00:00 AM EST 0 {mg} completed NETSMART ([facility]) Insurance Providers Payer name Policy type / Coverage type Policy ID Covered libertarian ID Covered libertarian's relationship to desir Policy Desir Plan Information MEDICARE COMPLETE [id number] SP [id number] EMEDNY [id number] SP [id number] MEDICARE COMPLETE [id number] SP [id number] MEDICAID M [id number] S [id number] MEDICARE COMPLETE-UHC O [id number] S [id number] UNHC CP DUAL COMP - FACILITY [id number] 18 [id number] [facility]A [id number] S [id number] [facility] MCRO [id number] SP [id number] [facility](MCAID) O [id number] S [id number] [facility] MCRO [id number] SP [id number] MEDICARE [id number] SP [id number] MEDICAID [id number] SP [id number] Medicaid Medigap Part B [id number] Self [id number] Medicare (Part B) Medicare Primary [id number] Self [id number] Medicaid Medigap Part B [id number] Self [id number] [facility] Options Medigap Part B [id number] Self [id number] Medicare (Part B) Medicare Primary [id number] Self [id number] Evercare/ MCR Advantage Commercial [id number] Self [id number] MEDICARE [id number] SP [id number] MEDICAID [id number] SP [id number] ANSI-Medicaid [id number] ANSI-Medicare Part B [id number] ANSI-Medicaid [id number] ANSI-Medicare Part B [id number] ANSI-Medicaid [id number] ANSI-Medicare Part B [id number] ANSI-Medicaid [id number] ANSI-Medicare Part B [id number] ANSI-Medicaid [id number] ANSI-Medicare Part B [id number] ANSI-Medicare Part B [id number] ANSI-Medicaid [id number] Medicaid [facility] Part B [id number] Self [id number] Medicare (Part B) Medicare Primary [id number] Self [id number] Medicaid [facility] Part B [id number] Self [id number] [facility] Healthcare Options [facility] Part B [id number] Self [id number] Medicare (Part B) Medicare Primary [id number] Self [id number] ANSI-Medicaid [id number] ANSI-Medicare Part B [id number] ANSI-Medicaid [id number] ANSI-Medicare Part B [id number] ANSI-Medicaid [id number] ANSI-Medicare Part B [id number] ANSI-Medicare Part B [id number] ANSI-Medicaid [id number] ANSI-Medicare Part B [id number] ANSI-Medicaid [id number] Medicaid [place] Medigap Part B [id number] Self [id number] [place] Medicare Primary [id number] Self [id number] ANSI-Medicare Part B [id number] ANSI-Medicaid [id number] Medicaid Medigap Part B [id number] Self [id number] Medicare (Part B) Medicare Primary [id number] Self [id number] Medicaid Medigap Part B [id number] Self [id number] [facility] Options Medigap Part B [id number] Self [id number] Medicare (Part B) Medicare Primary [id number] Self [id number] ANSI-Medicare Part B [id number] ANSI-Medicaid [id number] MEDICARE [id number] ANSI-Medicaid [id number] ANSI-Medicare Part B [id number] ANSI-Medicaid [id number] ANSI-Medicare Part B [id number] ANSI-Medicare Part B [id number] ANSI-Medicaid [id number] ANSI-Medicaid [id number] ANSI-Medicare Part B [id number] ANSI-Medicaid [id number] ANSI-Medicare Part B [id number] ANSI-Medicare Part B [id number] ANSI-Medicaid [id number] ANSI-Medicaid [id number] ANSI-Medicare Part B [id number] ANSI-Medicare Part B [id number] ANSI-Medicaid [id number] ANSI-Medicaid [id number] ANSI-Medicare Part B [id number] MEDICARE KWIMO SP KWIMO Medicaid Medigap Part B [id number] Self [id number] Medicare (Part B) Medicare Primary [id number] Self [id number] [facility] [id number] Self [id number] [facility] Options Medigap Part B [id number] Self [id number] Medicare (Part B) Medicare Primary [id number] Self [id number] ANSI-Medicare Part B [id number] ANSI-Medicaid [id number] ANSI-Medicaid [id number] ANSI-Medicare Part B [id number] ANSI-Medicaid [id number] ANSI-Medicare Part B [id number] ANSI-Medicaid [id number] ANSI-Medicare Part B [id number] ANSI-Medicare Part B [id number] ANSI-Medicaid [id number] MEDICAID [facility] ANSI-Medicaid [id number] ANSI-Medicare Part B [id number] ANSI-Medicaid [id number] ANSI-Medicare Part B [id number] ANSI-Medicare Part B [id number] ANSI-Medicaid [id number] ANSI-Medicaid [id number] ANSI-Medicare Part B [id number] ANSI-Medicaid [id number] ANSI-Medicare Part B [id number] ANSI-Medicaid [id number] ANSI-Medicare Part B [id number] ANSI-Medicaid [id number] ANSI-Medicare Part B [id number] ANSI-Medicaid [id number] ANSI-Medicare Part B [id number] ANSI-Medicaid [id number] ANSI-Medicare Part B [id number] ANSI-Medicaid [id number] ANSI-Medicare Part B [id number] Medicaid Medigap Part B [id number] Self [id number] Medicare (Part B) Medicare Primary [id number] Self [id number] Medicaid Medigap Part B [id number] Self [id number] [facility] Medigap Part B [id number] Self [id number] Medicare (Part B) Medicare Primary [id number] Self [id number] ANSI-Medicaid [id number] ANSI-Medicare Part B [id number] ANSI-Medicaid [id number] ANSI-Medicare Part B [id number] ANSI-Medicare Part B [id number] ANSI-Medicaid [id number] ANSI-Medicare Part B [id number] ANSI-Medicaid [id number] [place] [facility] [id number] ANSI-Medicare Part B [id number] ANSI-Medicaid [id number] ANSI-Medicare Part B [id number] ANSI-Medicaid [id number] ANSI-Medicare Part B [id number] ANSI-Medicaid [id number] ANSI-Medicaid [id number] ANSI-Medicare Part B [id number] MEDICARE C [id number] S [id number] A MEDICARE [id number] Susan [id number] A S ADMINISTRATORS, [facility] C [id number] S [id number] Medicare (Part B) Medicare Primary [id number] Self [id number] Medicaid Medigap Part B [id number] Self [id number] [facility] Healthcare Options Medigap Part B [id number] Self [id number] Medicare (Part B) Medicare Primary [id number] Self [id number] Medicare (Part B) Medicare Primary [id number] Self [id number] Medicaid Medigap Part B [id number] Self [id number] [facility] Medigap Part B [id number] Self [id number] Medicare (Part B) Medicare Primary [id number] Self [id number] MEDICARE [id number] SP [id number] A Medicare (Part B) Medicare Primary [id number] Self [id number] Medicaid Medigap Part B [id number] Self [id number] [facility] Medigap Part B [id number] Self [id number] Medicare (Part B) Medicare Primary [id number] Self [id number] Medicare (Part B) Medicare Primary [id number] Self [id number] Medicaid Medigap Part B [id number] Self [id number] [facility] Medigap Part B [id number] Self [id number] Medicare (Part B) Medicare Primary [id number] Self [id number] Medicare (Part B) Medicare Primary [id number] Self [id number] Medicaid Medigap Part B [id number] Self [id number] 58K [facility] Medigap Part B [id number] Self [id number] Medicare (Part B) Medicare Primary [id number] Self [id number] Medicare (Part B) Medicare Primary [id number] Self [id number] Medicaid Medigap Part B [id number] Self [id number] [facility] Medigap Part B [id number] Self [id number] Medicare (Part B) Medicare Primary [id number] Self [id number] Medicare (Part B) Medicare Primary [id number] Self [id number] Medicaid Medigap Part B [id number] Self [id number] [facility] Medigap Part B [id number] Self [id number] Medicare (Part B) Medicare Primary [id number] Self [id number] Medicare (Part B) Medicare Primary Self [employer]/ [employer] Self Medicaid Medigap Part B 1 1 Self 1 1 [facility] Medigap Part B [place] Medicare Primary Self AARP S [id number] S [id number] Medicare Medicare Primary Self [employer] OPTIONS [id number] SP [id number] Medicaid [facility] Part B Self [id number] A [id number] Problems, Conditions, and Diagnoses Code Display Name Description Problem Type Effective Dates Data Source(s) E03.9 Hypothyroidism, unspecified Hypothyroidism, unspecifie d Problem 12/01/2019 01:00:00 AM EDT NETSMART ([facility] ) 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 Problem 06/09/2019 12:00:00 AM EST NETSMART ([facility]) Z79.51 computer terminal operator (current) use of inhaled stero ids long-term (current) use of inhaled steroids Problem 06/09/2019 12:00:00 AM EST NETSMART ([facility]) E03.0 Congenital hypothyroidism with diffuse g oiter Congenital hypothyroidism with diffuse goiter Problem 06/09/2019 12:00:00 AM EST NETSMART ([facility]) N40.1 Benign prostatic hyperplasia with lower urinary tract symptoms Benign prostatic hyperplasia with lower urinary tract symptoms Problem 04/13/2019 12:00:00 AM EST NETSMART ([facility] ) F17.210 Nicotine dependence, cigarettes, uncompl icated Nicotine dependence, cigarettes, uncomplicated Problem 04/13/2019 12:00:00 AM EST NETSMAR T ([facility]) M35.3 Polymyalgia rheumatica Polymyalgia rheumatica Problem 04/13/2019 12:00:00 AM EST NETSMART ([facility] ) H26.9 [id number] Cataract, unspecified cataract t ype, unspecified laterality Problem 03/27/2019 12:00:00 AM EST eCW1 ([facility]) F17.200 [id number] Nicotine dependence with current use Prob mario 03/27/2019 12:00:00 AM EST eCW1 ([facility]) H26.9 [id number] Cataract, unspecified cataract t ype, unspecified laterality Problem 03/27/2019 12:00:00 AM EST eCW1 ([facility]) R99 Ill-defined and unknown cause of mortali ty Ill-defined and unknown cause of mortality Diagnosis 03/14/2020 01:39:00 PM [facility] H5703 Miosis Miosis Diagnosis 03/09/2020 08:30:00 AM ES T [facility] H268 Other specified cataract Other specified cataract Diag nosis 03/09/2020 08:30:00 AM [facility] [id number] Encounter for other preprocedural examin ation Encounter for other preprocedural examination Diagnosis 03/08/2020 11:55:00 AM [facility] Surgeries/Procedures Procedure Description Date Indications Data Source(s) X-Ray Hip Min 4 View 04/21/2020 12:00:00 AM EST MEDENT ([facility] ) X-Ray Hip Unilateral With Pelvis 2-3 Views 04/21/2020 12:00:00 AM EST MEDENT ([facility]) TX INTER/MS/SUBTRCHNTRIC FEM FX IMED IMPLTSCREW 2019 12:00:00 AM EST MEDENT ([facility]) ECG ROUTINE ECG W/LEAST 12 LDS W/I&R 03/10/2020 12:00: 00 AM EST MEDENT ([facility]) Immunization: Flublok Quadrivalent (18 years & older) 0.5mL IM (Influenza) 03/03/2020 12:00:00 AM EDT eCW1 ([facility]) ECG ROUTINE ECG W/LEAST 12 LDS W/I&R 01/26/2020 12:00: 00 AM EDT MEDENT ([facility]) INTERROGATION EVAL REMOTE </90 D 1/2/> LD CVDFB 2019 12:00:00 AM EDT MEDENT ([facility]) INTERROGATION REMOTE </90 D NURSES EDUCATOR REVIEW 01/21/20 12:00:00 AM EDT MEDENT ([facility]) INTERROGATION EVAL F2F 1/DUAL/COB SAWYER LEADS CVDFB 10/22/19 12:00:00 AM EDT MEDENT ([facility]) INTERROGATION EVAL REMOTE </90 D 1/2/> LD CVDFB 2019 12:00:00 AM EDT MEDENT ([facility]) INTERROGATION REMOTE </90 D NURSES EDUCATOR REVIEW 07/20/19 20 12:00:00 AM EDT MEDENT ([facility]) INTERROGATION EVAL REMOTE </90 D 1/2/> LD CVDFB 2018 12:00:00 AM EST MEDENT ([facility]) INTERROGATION REMOTE </90 D NURSES EDUCATOR REVIEW 04/20/20 19 12:00:00 AM EST MEDENT ([facility]) Office Visit, Est Pt., Level 4 PC 03/27/2019 12:00:00 AM EST eCW1 ([facility]) Office Visit, Est Pt., Level 3 FC 03/27/2019 12:00:00 AM EST eCW1 ([facility]) RIV4 VACC RECOMBINANT DNA IM 03/27/2019 12:00:00 AM ES T eCW1 ([facility]) Administration of influenza virus vaccine 03/27/2019 1 2:00:00 AM EST eCW1 ([facility]) Results ID Date Data Source [id number] 05/10/2020 12:59:00 PM EST [facility]) Name Value Range Interpretation Code Description Data Janeen rce(s) Supporting Document(s) Red Blood Count 4.04 4.00-5.40 MEDENT ([facility]) White Blood Count 11.4 5.0-10.0 MED[facility] ([facility]) Hematocrit 37.3 MEDENT ([facility]) Platelets 257 172-450 [facility] Hemoglobin 11.1 MEDENT ([facility]) ID Date Data Source [id number] 05/10/2020 12:59:00 PM EST MEDENT ([facility]) Name Value Range Interpretation Code Description Data Janeen rce(s) Supporting Document(s) Glucose 118 83-110 [facility] Creatinine 1.24 0.6-1.0 MEDENT ([facility]) Blood Urea Nitrogen 26 7-18 [facility] ([facility]) Sodium 137 136-145 [facility] ([facility]) ID Date Data Source [id number] 05/04/2020 09:00:00 AM EST [facility] Name Value Range Interpretation Code Description Data Janeen rce(s) Supporting Document(s) SARS coronavirus 2 RNA [facility] This lab was ordered by [facility] and reported by [facility]. ID Date Data Source [id number] 04/27/2020 06:00:00 AM EST [facility] Name Value Range Interpretation Code Description Data Janeen rce(s) Supporting Document(s) SARS coronavirus 2 RNA [facility] This lab was ordered by [facility] and reported by [facility]. ID Date Data Source [id number] 04/20/2020 12:16:00 PM EST [facility] Name Value Range Interpretation Code Description Data Janeen rce(s) Supporting Document(s) SARS coronavirus 2 RNA [facility] This lab was ordered by [facility] and reported by [facility]. ID Date Data Source [id number] 04/07/2020 04:04:00 PM EST [facility] Name Value Range Interpretation Code Description Data Janeen rce(s) Supporting Document(s) SARS coronavirus 2 RNA [Presence] in Res piratory specimen by MITALI with probe detection [facility] This lab was ordered by [facility] a nd reported by [facility]. ID Date Data Source [id number] 03/11/2020 07:34:00 [place] [address] OPERATIVE SUMMARYNAME: MELISSA PARRA DATE OF : 1945TTENDING PHYS: Yuliet Goss MD DATE: 03/09/20 MR#: [id number] OF PROCEDURE: 03/09/2020PREOPERATIVE DIAGNOSIS: 1. Dense 4+ [...] then done, followed by phacoemulsification in a aepdcr-eqg-uarhcmq method. During this, at one point the patient started moving vigorously and madesudden movements. At that time, it was noted that there was a small rent in the posterior capsule,and a piece of the nuclear material was noted to have a prolapse in the vitreous. At this point, it wasdecided to place a [id number] 21.0 diopter lens in the sulcus. Excess [...] to therecovery room in stable condition. [address] [place] [id number] OPERATIVE SUMMARYNAME: MELISSA PARRA DATE OF : 1945TTENDING PHYS: Yuliet Goss MD DATE: 03/09/20 MR#: [id number]: Yuliet Goss MD 03/10/20 17:21DT: SSR 03/11/20 07:07DS: Yuliet Goss MD 04/06/20 09:59 2 Name Value Range Interpretation Code Description Data Janeen rce(s) Supporting Document(s) ID Date Data Source [id number] 03/23/2020 03:50:00 PM EST [facility] Name Value Range Interpretation Code Description Data Janeen rce(s) Supporting Document(s) Magnesium [Mass/volume] in Serum or Plasma 2.3 mg/dL 1.8-2.4 MEDENT ([facility]) ID Date Data Source [id number] 03/23/2020 03:50:00 PM EST MEDENT ([facility]) Name Value Range Interpretation Code Description Data Janeen rce(s) Supporting Document(s) Glucose, Fasting 109 mg/dL 70-100 [facility] ([facility]) Creatinine For GFR 1.27 mg/dL 0.70-1.30 MEDENT ([facility]) Blood Urea Nitrogen 24 mg/dL 7-18 MED[facility] ([facility]) Glomerular Filtration Rate 58.5 MED ENT ([facility]) <content>Units are mL/min/1.73 m2</content>
<content></content>
<content>Chronic Kidney Disease Staging per NKF:</content>
<content></content>
<content>Stage I & II GFR >=60 Normal to Mildly Decreased</content>
<content>Stage III GFR 30- 59 Moderately Decreased</content>
<content>Stage IV GFR 15-29 Severely Decreased</content>
<content>Stage V GFR <15 Very Little GFR Left</content>
<content>ESRD GFR <15 on ASSEMBLER MOLDED FRAMES</content>
<content></content> Sodium Level 137 meq/L 136-145 MED[facility] ([facility]) Potassium Serum 4.2 meq/L 3.5-5.1 MED[facility] ([facility]) Carbon Dioxide Level 36 meq/L 21-32 MED[facility] ([facility]) Chloride Level 95 meq/L 98-107 MEDENT ([facility]) Calcium Level 8.8 mg/dL 8.8-10.2 MED[facility] ([facility]) Anion Gap 6 meq/L 8-16 [facility] ID Date Data Source [id number] 03/17/2020 10:32:00 PM [facility] [place], [place] [address]EDRTWRU NAME: ROSLYN TORRES OF : 1945REPORT: DISCHARGE SUMMARYPATIENT NUMBER: [id number] STATUS: SDMEDICAL RECORD NUMBER: [id number] OF ADMISSION: 03/11/2020DATE OF DISCHARGE: 03/13/2020ROOM: 02ATTENDING [...] will be followed up by Ophthalmology in [place].DICTATED BY: Javid Schmidt, PETERictated: 03/13/2020 21:04DT: 03/13/2020 21:07Job #: [id number]: [facility] [place], [place] Steven Barcenas [place], [place] MD Solomon Spivey MD Rajeev Seth, MDNOTE: [facility] computer generated reports are not confirmed orauthenticated unless they are signed by the providerElectronically Authenticated and Edited by:Javid Schmidt MD On 03/17/2020 10:32 PM EST Name Value Range Interpretation Code Description Data Janeen rce(s) Supporting Document(s) ID Date Data Source [id number] 03/13/2020 10:16:31 AM EST [facility] Name Value Range Interpretation Code Description Data Janeen rce(s) Supporting Document(s) WBC 14.0 10*3/uL (4.1-11.0) H [facility] RBC 3.91 10*6/uL (4.60-6.10) L [facility] HGB 11.1 g/dL (13.5-18.0) L [facility] HCT 34.1 % (41.0-53.0) L [facility] [address] [facility] [address] MCV 87.2 fL (80.0-95.0) [facility] MCH 28.3 pg (27.0-32.0) [facility] MCHC 32.5 g/dL (32.0-36.0) [facility] RDW 14.7 % (10.5-14.5) H [facility] PLT 235 10*3/uL (150-450) [facility] MPV 7.8 fL (7.1-10.7) [facility] ID Date Data Source [id number] 03/13/2020 09:35:00 AM EST [facility] [...] consolidation are seen. Professional interpretation performed at [facility] .End of diagnostic report for accession: [id number] Interpreted: Ramakrishna Cervantes DOTranscribed: 03/13/2020 09:34 AMSigned: 03/13/2020 09:35 AM Ramakrishna Cervantes DO [facility] # [id number] BILL # [id number] Name Value Range Interpretation Code Description Data Janeen rce(s) Supporting Document(s) ID Date Data Source [id number] 03/24/2020 10:13:00 AM EST [facility] [place] [id number] NAME: ROSLYN TORRES OF : 1945REPORT: OPERATIONPATIENT NUMBER: [id number] STATUS: SDMEDICAL RECORD NUMBER: [id number] OF ADMISSION: 03/11/2020DATE OF DISCHARGE:ROOM: 02DATE OF [...] PETER Vaughanictated: 03/12/2020 11:28DT: 03/12/2020 11:40Job #: [id number]: [facility] computer generated reports are not confirmed orauthenticated unless they are signed by the providerElectronically Authenticated and Edited by:CARLOS CALDERON MD On 03/24/2020 10:13 AM EST Name Value Range Interpretation Code Description Data Janeen rce(s) Supporting Document(s) ID Date Data Source [id number] 03/12/2020 11:43:36 AM EST [facility] Name Value Range Interpretation Code Description Data Janeen rce(s) Supporting Document(s) TROPONIN I <0.05 ng/mL (<0.05) [facility] [place] Less than 0.05: Myocardial injury unlike lyGreater than or equal to 0.05: Highly suggestive of myocardial injuryCorrelation with rise and/or fall ofserial troponins, clinical symptomsand ECG changes is necessary. ID Date Data Source [id number] 03/12/2020 11:43:36 AM EST [facility] Name Value Range Interpretation Code Description Data Janeen rce(s) Supporting Document(s) NT PRO BNP 411 pg/mL (0-450) [facility] ID Date Data Source [id number] 03/12/2020 11:43:36 AM EST [facility] Name Value Range Interpretation Code Description Data Janeen rce(s) Supporting Document(s) SODIUM 138 mmol/L (136-145) [facility] POTASSIUM 3.9 mmol/L (3.6-5.2) [facility] CHLORIDE 99 mmol/L (100-108) L [facility] CO2 36 mmol/L (22-31) H [facility] ANION GAP 3 mmol/L (7-16) L [facility] UREA NITROGEN 21 mg/dL (7-24) [facility] CREATININE 1.17 mg/dL (0.80-1.30) [facility] BUN/CREAT RATIO 17.9 RATIO (10.0-20.0) [facility] GLUCOSE 110 mg/dL (70-99) H [facility] CALCIUM 8.1 mg/dL (8.4-10.2) L [facility] TOTAL PROTEIN 5.7 g/dL (6.4-8.2) L [facility] ALBUMIN 3.1 g/dL (3.2-4.5) L [facility] GLOBULIN 2.6 g/dL (2.7-4.3) L [facility] ALB/GLOB RATIO 1.2 RATIO [facility] ALKALINE PHOSPHATASE 88 U/L (45-117) [facility] BILIRUBIN,TOTAL 0.4 mg/dL (0.0-1.0) [facility] PLEASE NOTE:Total bilirubin results may be falselyelevated in patients taking Eltrombopag. AST (SGOT) 14 U/L (11-39) [facility] ALT (SGPT) 14 U/L (12-78) [facility] GFR >60 ml/min/1.73m2 (>59) [facility] GFR ( AMER) >60 ml/min/1.73m2 (>59) [facility] GFR INTERPRETATION [facility] --NORMAL KIDNEY FUNCTION OR MILD DISEASE - GFR >OR= 60CHRONIC KIDNEY DISEASE - GFR 15 - 59RENAL FAILURE - GFR <15 Est. GFR calculation based on the MDRDstudy equation, which assumes a steadystate for creatinine. Est. GFR should notbe used for medication dosing. ID Date Data Source [id number] 03/12/2020 11:26:18 AM EST [facility] Name Value Range Interpretation Code Description Data Janeen rce(s) Supporting Document(s) WBC 16.8 10*3/uL (4.1-11.0) H [facility] RBC 3.76 10*6/uL (4.60-6.10) L [facility] HGB 10.4 g/dL (13.5-18.0) L [facility] HCT 32.9 % (41.0-53.0) L [facility] PERFORMED AT [address] [place] [place] [address] MCV 87.5 fL (80.0-95.0) [facility] MCH 27.7 pg (27.0-32.0) [facility] MCHC 31.6 g/dL (32.0-36.0) L [facility] RDW 14.7 % (10.5-14.5) H [facility] PLT 240 10*3/uL (150-450) [facility] MPV 8.3 fL (7.1-10.7) [facility] ID Date Data Source [id number] 03/11/2020 10:14:00 PM [facility] DATE OF EXAM: 03/11/2020ULTRASOUND VASCU LAR: [...] deep venous thrombosis. Professional interpretation performed at [facility] .End of diagnostic report for accession: [id number] Interpreted: Chalino Corona MDTranscribed: 03/11/2020 10:14 PMSigned: 03/11/2020 10:14 PM Chalino Corona MD [facility] # [id number] [facility] # [id number] Name Value Range Interpretation Code Description Data Janeen rce(s) Supporting Document(s) ID Date Data Source [id number] 03/11/2020 09:54:00 PM EST [facility] DATE OF EXAM: 03/11/2020CHEST CLINICAL [...] lobe subsegmental atelectasis. Professional interpretation performed at [facility] [phone].End of diagnostic report for accession: [id number] Interpreted: Chalino Corona MDTranscribed: 03/11/2020 09:53 PMSigned: 03/11/2020 09:54 PM Chalino Corona MD [facility] # [id number] BILL # [id number] Name Value Range Interpretation Code Description Data Janeen rce(s) Supporting Document(s) ID Date Data Source [id number] 03/11/2020 09:37:51 PM EST [facility] Name Value Range Interpretation Code Description Data Janeen rce(s) Supporting Document(s) SOURCE [facility] FIO2 [facility] 5LNC PH 7.39 (7.35-7.45) [facility] PCO2 59 mm[Hg] (32-48) H [facility] PO2 75 mm[Hg] (83-108) L [facility] O2 SATURATION 94.2 % (95.0-99.0) L [facility] BASE EXCESS 7.8 mmol/L (0.0-3.0) H [facility] [place] HCO3 34.4 mmol/L (21.0-29.0) H [facility] TOTAL CO2 36.2 mmol/L (23.0-32.0) H [facility] BODY TEMPERATURE 98.6 [degF] [facility] ID Date Data Source [id number] 03/11/2020 09:44:25 PM EST [facility] Name Value Range Interpretation Code Description Data Janeen rce(s) Supporting Document(s) SODIUM 139 mmol/L (136-145) [facility] POTASSIUM 3.8 mmol/L (3.6-5.2) [facility] CHLORIDE 101 mmol/L (100-108) [facility] CO2 35 mmol/L (22-31) H [facility] ANION GAP 3 mmol/L (7-16) L [facility] UREA NITROGEN 21 mg/dL (7-24) [facility] CREATININE 1.27 mg/dL (0.80-1.30) [facility] BUN/CREAT RATIO 16.5 RATIO (10.0-20.0) [facility] GLUCOSE 97 mg/dL (70-99) [facility] CALCIUM 7.7 mg/dL (8.4-10.2) L [facility] TOTAL PROTEIN 5.4 g/dL (6.4-8.2) L [facility] ALBUMIN 3.0 g/dL (3.2-4.5) L [facility] GLOBULIN 2.4 g/dL (2.7-4.3) L [facility] ALB/GLOB RATIO 1.3 RATIO [facility] ALKALINE PHOSPHATASE 84 U/L (45-117) [facility] BILIRUBIN,TOTAL 0.5 mg/dL (0.0-1.0) [facility] PLEASE NOTE:Total bilirubin results may be falselyelevated in patients taking Eltrombopag. AST (SGOT) 15 U/L (11-39) [facility] ALT (SGPT) 14 U/L (12-78) [facility] GFR 55 ml/min/1.73m2 (>59) L [facility] GFR ( AMER) >60 ml/min/1.73m2 (>59) [facility] GFR INTERPRETATION [facility] --NORMAL KIDNEY FUNCTION OR MILD DISEASE - GFR >OR= 60CHRONIC KIDNEY DISEASE - GFR 15 - 59RENAL FAILURE - GFR <15 Est. GFR calculation based on the MDRDstudy equation, which assumes a steadystate for creatinine. Est. GFR should notbe used for medication dosing. ID Date Data Source [id number] 03/11/2020 09:25:28 PM EST [facility] Name Value Range Interpretation Code Description Data Janeen rce(s) Supporting Document(s) PT 10.5 s (9.2-11.9) [facility] [address] [facility] [address] INR 1.00 [facility] SUGGESTED THERAPEUTIC RANGES USING INR F ORSTABILIZED ANTICOAGULATED PATIENTS:STANDARD DOSE THERAPY INR 2.0-3.0 DVT, PE, PREVENT DVT OR EMBOLISMHIGH DOSE THERAPY INR 2.5-3.5 PREVENT EMBOLISM FROM MECHANICAL HEART VALVE ID Date Data Source [id number] 03/11/2020 09:16:35 PM EST [facility] Name Value Range Interpretation Code Description Data Janeen rce(s) Supporting Document(s) WBC 7.9 10*3/uL (4.1-11.0) [facility] [place] RBC 3.58 10*6/uL (4.60-6.10) L [facility] HGB 10.1 g/dL (13.5-18.0) L [facility] HCT 30.9 % (41.0-53.0) L [facility] PERFORMED AT [address] [place] [address] MCV 86.1 fL (80.0-95.0) [facility] MCH 28.1 pg (27.0-32.0) [facility] MCHC 32.7 g/dL (32.0-36.0) [facility] RDW 14.6 % (10.5-14.5) H [facility] PLT 229 10*3/uL (150-450) [facility] MPV 7.7 fL (7.1-10.7) [facility] NEUT % 77.9 % (35.0-75.0) H [facility] LYMPH % 10.4 % (16.0-52.0) L [facility] MONO % 10.3 % (0.0-8.0) H [facility] EOS % 0.8 % (0.0-5.0) [facility] BASO % 0.6 % (0.0-4.0) [facility] NEUT # 6.1 10*3/uL (1.8-7.7) [facility] LYMPH # 0.8 10*3/uL (1.2-4.8) L [facility] MONO # 0.8 10*3/uL (0.0-0.8) [facility] Eosinophils [#/volume] in Blood by Automated count 0.1 10*3/uL (0.0-0 .5) [facility] BASO # 0.0 10*3/uL (0.0-0.2) [facility] ID Date Data Source [id number] 03/11/2020 02:35:00 PM EST [facility] Name Value Range Interpretation Code Description Data Janeen rce(s) Supporting Document(s) SARS coronavirus 2 RNA [Presence] in Res piratory specimen by MITALI with probe detection [facility] This lab was reported by [facility]. ID Date Data Source [id number] 03/11/2020 08:19:43 PM EST [facility] Name Value Range Interpretation Code Description Data Janeen rce(s) Supporting Document(s) SPECIMEN DESCRIPTION [facility] COVID19 RESULT (NDET) [facility] THIS ASSAY AMPLIFIES AND DETECTSTHE TARG ET RNA USING REAL-TIME PCR.NEGATIVE 2019_NCOV RT-PCR RESULTS DONOT PRECLUDE 2019_NCOV INFECTION ANDSHOULD NOT BE USED THE SOLE BASISFOR PATIENT MANAGEMENT DECISIONS. COMMENT [facility] APPR[facility] B Y THE [place]. THE [place] FOODAND DRUG ADMINISTRATION HAS NOT APPROVEDTHIS TEST. NEGATIVE RESULTS DO NOT REABHRUFSEPE-GKY-[id number] INFECTION AND SHOULD NOT BEUSED THE SOLE BASIS FOR CLINICALDIAGNOSIS OR PATIENT MANAGEMENT DECISIONS.RESULTS EMAILED TO IC AT 3908. [phone] [id number]. FIRST TEST [facility] SYMPTOMATIC [facility] Y DATE OF SYMPT ONSET [facility] HOSPITALIZED [facility] [place] ICU [facility] CON[facility]REGATE CARE SET [facility] ID Date Data Source [id number] 03/04/2020 05:49:00 PM EDT [facility] Name Value Range Interpretation Code Description Data Janeen rce(s) Supporting Document(s) SARS-CoV-2 (COVID19) [facility] This lab was ordered by [facility] and reported by [facility]. ID Date Data Source [id number] 11/27/2019 10:40:00 AM EDT MED[facility] ([facility]) Name Value Range Interpretation Code Description Data Janeen rce(s) Supporting Document(s) White Blood Count 10.2 4.0-10.0 MED[facility] ([facility]) Platelets 231 150-450 [facility] Red Blood Count 3.78 4.30-6.10 [facility] ([facility]) Hematocrit 34.0 MEDENT ([facility]) Hemoglobin 10.8 MED[facility] ([facility]) ID Date Data Source [id number] 10/26/2019 09:17:00 AM EDT [facility] ([facility]) Name Value Range Interpretation Code Description Data Janeen rce(s) Supporting Document(s) Magnesium [Mass/volume] in Serum or Plasma 3.0 mg/dL 1.8-2.4 [facility] ([facility]) ID Date Data Source [id number] 10/26/2019 09:17:00 AM EDT [facility] ([facility]) Name Value Range Interpretation Code Description Data Janeen rce(s) Supporting Document(s) Glucose, Fasting 92 mg/dL 70-100 MED[facility] ([facility]) Blood Urea Nitrogen 26 mg/dL 7-18 MED[facility] ([facility]) Sodium Level 135 meq/L 136-145 [facility] ([facility]) Glomerular Filtration Rate 57.6 MED ENT ([facility]) <content>Units are mL/min/1.73 m2</content>
<content></content>
<content>Chronic Kidney Disease Staging per NKF:</content>
<content></content>
<content>Stage I & II GFR >=60 Normal to Mildly Decreased</content>
<content>Stage III GFR 30- 59 Moderately Decreased</content>
<content>Stage IV GFR 15-29 Severely Decreased</content>
<content>Stage V GFR <15 Very Little GFR Left</content>
<content>ESRD GFR <15 on ASSEMBLER MOLDED FRAMES</content>
<content></content> Creatinine For GFR 1.29 mg/dL 0.70-1.30 MEDENT ([facility]) Potassium Serum 5.3 meq/L 3.5-5.1 [facility] ([facility]) Chloride Level 98 meq/L 98-107 MED[facility] ([facility]) Carbon Dioxide Level 34 meq/L 21-32 MEDENT ([facility]) Calcium Level 9.0 mg/dL 8.8-10.2 MED[facility] ([facility]) Anion Gap 3 meq/L 8-16 [facility] ID Date Data Source [id number] 04/14/2019 10:13:00 AM EST [facility] ([facility]) Name Value Range Interpretation Code Description Data Janeen rce(s) Supporting Document(s) Magnesium [Mass/volume] in Serum or Plasma 2.1 mg/dL 1.8-2.4 [facility] ([facility]) ID Date Data Source [id number] 04/14/2019 10:13:00 AM EST [facility]ENT ([facility]) Name Value Range Interpretation Code Description Data Janeen rce(s) Supporting Document(s) Glucose, Fasting 80 mg/dL 70-100 [facility] ([facility]) Creatinine For GFR 0.98 mg/dL 0.70-1.30 MED[facility] ([facility]) Blood Urea Nitrogen 21 mg/dL 7-18 MED[facility] ([facility]) Glomerular Filtration Rate Laboratory test result MEDENT ([facility]) <content>Units are mL/min/1.73 m2</content>
<content></content>
<content>Chronic Kidney Disease Staging per NKF:</content>
<content></content>
<content>Stage I & II GFR >=60 Normal to Mildly Decreased</content>
<content>Stage III GFR 30- 59 Moderately Decreased</content>
<content>Stage IV GFR 15-29 Severely Decreased</content>
<content>Stage V GFR <15 Very Little GFR Left</content>
<content>ESRD GFR <15 on ASSEMBLER MOLDED FRAMES</content>
<content></content> Chloride Level 97 meq/L 98-107 [facility] ([facility]) Sodium Level 139 meq/L 136-145 [facility] ([facility]) Potassium Serum 3.7 meq/L 3.5-5.1 MED[facility] ([facility]) Anion Gap 6 meq/L 8-16 [facility] Calcium Level 8.7 mg/dL 8.8-10.2 [facility] ([facility]) Carbon Dioxide Level 36 meq/L 21-32 MED[facility] ([facility]) Procedure Social History Code Duration Value Status Description Data Source(s ) Smoking 05/08/2020 12:00:00 AM EST Current some day smoker com pleted Current some day smoker eCW1 ([facility]) Smoking 03/22/2020 12:00:00 AM EST Current some day smoker com pleted Current some day smoker eCW1 ([facility]) Smoking 03/22/2020 12:00:00 AM EST Current some day smoker com pleted Current some day smoker eCW1 ([facility]) Smoking 03/22/2020 12:00:00 AM EST Current some day smoker com pleted Current some day smoker eCW1 ([facility]) Smoking 03/22/2020 12:00:00 AM EST Current some day smoker com pleted Current some day smoker eCW1 ([facility]) Smoking 03/03/2020 12:00:00 AM EDT Current some day smoker com pleted Current some day smoker eCW1 ([facility]) Smoking 03/03/2020 12:00:00 AM EDT Current some day smoker com pleted Current some day smoker eCW1 ([facility]) Smoking 03/03/2020 12:00:00 AM EDT Current some day smoker com pleted Current some day smoker eCW1 ([facility]) Smoking 03/03/2020 12:00:00 AM EDT Current some day smoker com pleted Current some day smoker eCW1 ([facility]) Smoking 10/26/2019 12:00:00 AM EDT Current some day smoker com pleted Current some day smoker eCW1 ([facility]) Smoking 06/29/2019 12:00:00 AM EST Current some day smoker com pleted Current some day smoker eCW1 ([facility]) Smoking 06/29/2019 12:00:00 AM EST Current some day smoker com pleted Current some day smoker eCW1 ([facility]) Vital Signs ID Date Data Source UNK Name Value Range Interpretation Code Description Data Source(s) Diastolic blood pressure 78 mm[Hg] 78 mm[Hg] eCW1 ([facility]) Systolic blood pressure 126 mm[Hg] 126 mm[Hg] e CW1 ([facility]) Body temperature 97.7 [degF] 97.7 [degF] eCW1 ( [facility]) Respiratory rate 18 /min 18 /min eCW1 ([facility]) Heart rate 87 /min 87 /min eCW1 ([facility]) Body mass index (BMI) [Ratio] 24.07 kg/m2 24.07 kg/m2 [facility] ([facility]) Body height 69 [in_i] 69 [in_i] eCW1 ([facility]) Body weight 163 [lb_av] 163 [lb_av] eCW1 ([facility]) Respiratory rate 16 /min 16 /min MEDENT ( [facility]) Body mass index (BMI) [Ratio] 24.2 kg/m2 24.2 k g/m2 MEDENT ([facility]) Body height 69 [in_i] 69 [in_i] MEDENT ([facility]) 5'9" Body weight 164.00 [lb_av] 164.00 [lb_av] MEDEN T ([facility]) Diastolic blood pressure 78 mm[Hg] 78 mm[Hg] eCW1 ([facility]) Systolic blood pressure 130 mm[Hg] 130 mm[Hg] e CW1 ([facility]) Body temperature 98 [degF] 98 [degF] eCW1 ([facility]) Respiratory rate 18 /min 18 /min eCW1 ([facility]) Heart rate 85 /min 85 /min eCW1 ([facility]) Body mass index (BMI) [Ratio] 24.66 kg/m2 24.66 kg/m2 eCW1 ([facility]) Body height 69 [in_i] 69 [in_i] eCW1 ([facility]) Body weight 167 [lb_av] 167 [lb_av] eCW1 ([facility]) Diastolic blood pressure 68 mm[Hg] 68 mm[Hg] MEDENT ([facility]) sitting, regular cuff Systolic blood pressure 126 mm[Hg] 126 mm[Hg] M EDENT ([facility]) sitting, regular cuff Respiratory rate 16 /min 16 /min MEDENT ( [facility]) Heart rate 88 /min 88 /min MEDENT ([facility]) Regular Body mass index (BMI) [Ratio] 24.5 kg/m2 24.5 k g/m2 MEDENT ([facility]) Body height 69 [in_i] 69 [in_i] MEDENT ([facility]) 5'9" Body weight 166.00 [lb_av] 166.00 [lb_av] MEDEN T ([facility]) Diastolic blood pressure 68 mm[Hg] 68 mm[Hg] MEDENT ([facility]) sitting Systolic blood pressure 124 mm[Hg] 124 mm[Hg] M EDENT ([facility]) sitting Diastolic blood pressure 68 mm[Hg] 68 mm[Hg] MEDENT ([facility]) sitting, regular cuff Systolic blood pressure 126 mm[Hg] 126 mm[Hg] M EDENT ([facility]) sitting, regular cuff Respiratory rate 20 /min 20 /min MEDENT ( [facility]) Heart rate 92 /min 92 /min MEDENT ([facility]) Regular Body mass index (BMI) [Ratio] 24.4 kg/m2 24.4 k g/m2 MEDENT ([facility]) Body height 69 [in_i] 69 [in_i] [facility] 5'9" Body weight 165.00 [lb_av] 165.00 [lb_av] MEDEN T ([facility]) Diastolic blood pressure 64 mm[Hg] 64 mm[Hg] MEDENT ([facility]) sitting, regular cuff Systolic blood pressure 106 mm[Hg] 106 mm[Hg] M EDENT ([facility]) sitting, regular cuff Respiratory rate 20 /min 20 /min MEDENT ( [facility]) Heart rate 88 /min 88 /min MEDENT ([facility]) Regular Body mass index (BMI) [Ratio] 24.7 kg/m2 24.7 k g/m2 MEDENT ([facility]) Body height 69 [in_i] 69 [in_i] MEDENT ([facility]) 5'9" Body weight 167.00 [lb_av] 167.00 [lb_av] MEDEN T ([facility]) Diastolic blood pressure 72 mm[Hg] 72 mm[Hg] eCW1 ([facility]) Systolic blood pressure 120 mm[Hg] 120 mm[Hg] e CW1 ([facility]) Body temperature 97.2 [degF] 97.2 [degF] eCW1 ( [facility]) Respiratory rate 20 /min 20 /min eCW1 ([facility]) Heart rate 89 /min 89 /min eCW1 ([facility]) Body mass index (BMI) [Ratio] 22.98 kg/m2 22.98 kg/m2 eCW1 ([facility]) Body height 69 [in_us] 69 [in_us] eCW1 ([facility]) Body weight Measured 155.6 [lb_av] 155.6 [lb_av ] eCW1 ([facility]) Diastolic blood pressure 60 mm[Hg] 60 mm[Hg] MEDENT ([facility]) Sitting, regular cuff Systolic blood pressure 110 mm[Hg] 110 mm[Hg] M EDENT ([facility]) Sitting, regular cuff Respiratory rate 18 /min 18 /min MEDENT ( [facility]) Heart rate 88 /min 88 /min MED[facility] ([facility]) Regular Body mass index (BMI) [Ratio] 23.0 kg/m2 23.0 k g/m2 MEDENT ([facility]) Body height 69 [in_i] 69 [in_i] MEDENT ([facility]) 5'9" Body weight 156.00 [lb_av] 156.00 [lb_av] MEDEN T ([facility]) Diastolic blood pressure 70 mm[Hg] 70 mm[Hg] eCW1 ([facility]) Systolic blood pressure 116 mm[Hg] 116 mm[Hg] e CW1 ([facility]) Body temperature 97.8 [degF] 97.8 [degF] eCW1 ( [facility]) Respiratory rate 18 /min 18 /min eCW1 ([facility]) Heart rate 106 /min 106 /min eCW1 ([facility]) Body mass index (BMI) [Ratio] 22.65 kg/m2 22.65 kg/m2 eCW1 ([facility]) Body height 69 [in_us] 69 [in_us] eCW1 ([facility]) Body weight Measured 153.4 [lb_av] 153.4 [lb_av ] eCW1 ([facility]) ID Date Data Source [id number] 04/06/2020 09:59:53 AM EST [facility] Name Value Range Interpretation Code Description Data Source(s) WEIGHT RECORDED 167.00 pounds 167.00 pounds [facility] Height 69 Inches 069 Inches [facility] Patient Treatment Plan of Care Planned Activity Planned Date Details Description Data Source (s) Nebulizer - 03/24/2020 12:00:00 AM EST e CW1 ([facility]) Nebulizer - 03/24/2020 12:00:00 AM EST e CW1 ([facility]) Nebulizer - 03/24/2020 12:00:00 AM EST e CW1 ([facility]) Nebulizer - 03/24/2020 12:00:00 AM EST e CW1 ([facility]) Nebulizer/Tubing/Mouthpiece - 03/03/2020 12:00:00 AM EDT eCW1 ([facility]) Erythromycin 0.005 MG/MG Ophthalmic Ointment 03/03/2020 12:00:00 AM EDT eCW1 ([facility]) Erythromycin 0.005 MG/MG Ophthalmic Ointment 03/03/2020 12:00:00 AM EDT eCW1 ([facility]) Nebulizer/Tubing/Mouthpiece - 03/03/2020 12:00:00 AM EDT eCW1 ([facility]) Nebulizer/Tubing/Mouthpiece - 03/03/2020 12:00:00 AM EDT eCW1 ([facility]) Erythromycin 0.005 MG/MG Ophthalmic Ointment 03/03/2020 12:00:00 AM EDT eCW1 ([facility]) Nebulizer/Tubing/Mouthpiece - 03/03/2020 12:00:00 AM EDT eCW1 ([facility]) Erythromycin 0.005 MG/MG Ophthalmic Ointment 03/03/2020 12:00:00 AM EDT eCW1 ([facility]) Amiodarone HCl 200 MG 02/25/2020 01:00:00 AM EDT NETSMART ([facility]) Amiodarone HCl 200 MG 02/10/2020 01:00:00 AM EDT NETSMART ([facility]) Afrin 12 Hour 0.05 % 02/01/2020 01:00:00 AM EDT NETSMART ([facility]) Clotrimazole 1 % 02/01/2020 01:00:00 AM EDT NETSMART ([facility]) Oxygen 02/01/2020 01:00:00 AM EDT N ETSMART ([facility]) Sucralfate 1 GM 02/01/2020 01:00:00 AM EDT NETSMART ([facility]) Voltaren 1 % 12/02/2019 01:00:00 AM EDT N ETSMART ([facility]) PredniSONE 20 MG 11/28/2019 01:00:00 AM EDT NETSMART ([facility]) Chantix Continuing Month Marlon 1 MG 09/03/2019 12:00:00 AM EDT eCW1 ([facility]) Chantix Continuing Month Marlon 1 MG 09/03/2019 12:00:00 AM EDT eCW1 ([facility]) Chantix Continuing Month Marlon 1 MG 09/03/2019 12:00:00 AM EDT eCW1 ([facility]) Oxygen 07/09/2019 12:00:00 AM EST e CW1 ([facility]) Oxygen 07/09/2019 12:00:00 AM EST e CW1 ([facility]) Oxygen 07/09/2019 12:00:00 AM EST e CW1 ([facility]) Ofloxacin 3 MG/ML Ophthalmic Solution 06/29/2019 12:00:00 AM EST eCW1 ([facility]) Oxygen 06/29/2019 12:00:00 AM EST e CW1 ([facility]) Ofloxacin 3 MG/ML Ophthalmic Solution 06/29/2019 12:00:00 AM EST eCW1 ([facility]) Oxygen 06/29/2019 12:00:00 AM EST e CW1 ([facility]) Oxygen 06/29/2019 12:00:00 AM EST e CW1 ([facility]) Ofloxacin 3 MG/ML Ophthalmic Solution 06/29/2019 12:00:00 AM EST eCW1 ([facility]) Famotidine 40 MG Oral Tablet 05/28/2019 12:00:00 AM EST eCW1 ([facility]) Aleve 220 MG 05/21/2019 12:00:00 AM EST N ETSMART ([facility]) Chantix Continuing Month Marlon 1 MG 03/27/2019 12:00:00 AM EST eCW1 ([facility]) Chantix Starting Month Marlon 0.5 MG X 11 & 1 MG X 42 03/27/2019 12 :00:00 AM EST eCW1 ([facility]) Chantix Starting Month Marlon 0.5 MG X 11 & 1 MG X 42 11/25/2018 01 :00:00 AM EDT [facility]SMART ([facility] ) Aleve PM 220-25 MG 12/25/2017 01:00:00 AM EDT NETSMART ([facility]) Oxygen 07/06/2017 12:00:00 AM EST N ETSMART ([facility]) Alendronate Sodium 70 MG 04/26/2017 12:00:00 AM EST [facility]SMART ([facility]) Diclofenac Sodium 1 % 04/26/2017 12:00:00 AM EST [facility]SMART ([facility]) Ranitidine 04/26/2017 12:00:00 AM EST N ETSMART ([facility])
[2020-05-18] MEDS ORDERED: DOCUSATE SODIUM 100MG CAPSULE PO PRN (22:00)
[2020-05-18] MEDS ORDERED: MAALOX 30 ML SUSP *UDC PO PRN (22:00)
[2020-05-18] MEDS ORDERED: MOM 30ML SUSPENSION UDC PO PRN (22:00)
[2020-05-18] MEDS ORDERED: FUROSEMIDE 100MG/10ML VIAL (J1940) IV ONE (22:00)
[2020-05-18] MEDS ORDERED: ALBUTEROL 90 MCG/ACT 8GM HFA INHALER INH PRN (22:00)
[2020-05-18] MEDS: AMIODARONE 200 MG TAB (PACERONE) PO SCH (22:25)
--- NOTE | 2020-05-18 23:22 | HPEPDOC ---
General Date of Admission May 18, 2020 at 21:32 Date of Service: May 18, 2020 Attending Physician: HUMBERTO RAHMAN MD Chief Complaint The patient is a 75-year-old male admitted with a reason for visit of Diastolic Chf,Stasis Dermtitis Of Both Legs. History of Present Illness History of present illness: 75-year-old male patient with the extensive history of COPD on oxygen at home, CAD, biventricular pacer and defibrillator, BPH on chronic Wilkins, hypothyroidism, CHF, who recently had an fracture of right hip and corrected with closed reduction and fixation and was discharged from [facility] on May 10 presenting today to the emergency department due to bilateral pedal edema. He reports he used to take torsemide 160 mg daily but was discontinued on discharge from [facility]. As a result he started building up fluid in his legs up to the point that it hurts when walking and is unable to walk without using a walker. He reports pain of 3-4/10. Past medical history: 1. Chronic anemia, acute anemia postop. 2. Coronary artery disease with history of biventricular pacer and defibrillator. Original defibrillator placed in 2004; follows with Dr. Leon. Last echocardiogram in 2018 was actually pretty good. That was read by Dr. Kulkarni; normal left ventricular (LV) systolic function, borderline left ventricular hypertrophy (LVH). Normal central venous pressure (CVP) and mild pulmonary hypertension. 3. He has had previous lumbar spine fracture at T10. 4. Benign prostatic hypertrophy (BPH) with a Wilkins catheter. 5. Chronic obstructive pulmonary disease (COPD) on three liters. 6. Colonic polyps; last colonoscopy 2018 with tubular adenoma. 7. Hypothyroid. 8. Right inguinal hernia surgery. 9. Question polymyalgia rheumatica (PMR); currently not on prednisone. He does not recall when he came off the prednisone with his PMR. 10. Hyperlipidemia, presumed, which does need treatment Social history: Patient smokes, he reports he stopped smoking after the fracture. Prior to that smoked 1 pack a day. Denies any alcohol use Denies illicit/recreational drug use. Family History: Not relevant REVIEW OF SYSTEMS: Constitutional: Denies having fever, chills, night sweats, weight loss, headaches. Eyes: Denies blurry vision or double vision. ENT: Denies dysphagia, odynophagia, ear discharge. Cardiovascular: Denies chest pain or palpitations. Respiratory: Reports shortness of breath at baseline and not changed recently and no cough. Gastrointestinal (GI): Denies nausea or vomiting. Genitourinary: Has a Wilkins catheter in for BPH Musculoskeletal: Denies muscle aches and pains. Skin: Denies any rashes or ulcers. Hematology/Oncology: Denies any easy bleeding or bruising. All other review of systems is negative. PHYSICAL EXAMINATION: General: Patient is awake, alert, oriented times three, sitting on bed , mild apparent distress. Eyes: Conjunctiva clear, pupils equal round and reactive to light and accommodation. EOM full, Fundus: not visualized. ENT: Hearing Bilateral normal. No nasal deviation, oropharynx clear with no lesions/erythema. Cardiovascular: S1, S2, normal rhythm, no murmurs Respiratory: Clear breath sounds heard bilaterally, normal respiratory effort with no use of accessory muscles. Abdomen: Soft, bowel sounds positive, no bruits. Extremities: Bilateral pedal edema extending up to the hips, redness noted on the left leg, flaky/dry skin in the legs. Tenderness more on the left leg than the right. Spine: No kyphosis, no paraspinal tenderness, no costovertebral tenderness. 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 Cranial nerves III-XII grossly intact. Motor Strength unable to assess because of the pedal edema and patient tenderness Imaging: Chest x-ray, 05/18/20 reported as Mild cardiomegaly and mild vascular congestion. Stable chronic interstitial densities bilaterally Assessment: 75-year-old male patient with extensive past medical history of COPD, CAD, CHF, BPH presented to the ED with bilateral pedal edema most likely due to medication noncompliance/discontinuation of medication. Plan: CHF exacerbation complicated with bilateral pedal edema: - Patient had his medication discontinued on discharge [torsemide 160 MG] - Will start him on furosemide 60 mg IV twice a day. - Will get bilateral duplex ultrasound to rule out DVT - Fluid restriction and maintain negative balance. - ProBNP 694. - In the morning please contact nephrology for further management of fluids for this patient. - Nephrology consult in place. - Will continue Aldactone 25 mg by mouth Cellulitis: - Patient has redness in the left leg. - Mild elevation in white count 10.3, ESR 34, CRP 0.62 - Will get 2 sets of blood cultures. - And will start him on vancomycin for now. - Will get a duplex ultrasound to rule out DVT. Hypothyroidism: - Will continue levothyroxine BPH: - Continue Wilkins catheter, changed to bag to a larger one as patient is being diuresed. - Continue finasteride. ASCVD: - Will continue statin CAD: - Continue aspirin COPD: - Continue home inhalers DVT prophylaxis: - Hepatin 5000 units every 8 hours Home Medications Scheduled Albuterol Sulfate (Albuterol Sulfate) 2.5 Mg/0.5 Ml Vial.neb, 2.5 MG INH TID, (Reported) Alendronate Sodium (Fosamax) 70 Mg Tablet, 70 MG PO QWEEK, (Reported) THURSDAYS Amiodarone Hcl (Pacerone) 200 Mg Tablet, 200 MG PO TID, (Reported) Aspirin (Aspirin EC) 81 Mg Tablet.dr, 81 MG PO DAILY, (Reported) Atorvastatin Calcium (Atorvastatin Calcium) 80 Mg Tab, 80 MG PO QHS, (Reported) Cholecalciferol (Vitamin D3) (Vitamin D3) 1,000 Unit Tablet, 3,000 UNITS PO DAILY, (Reported) Finasteride (Finasteride) 5 Mg Tablet, 5 MG PO DAILY, (Reported) Levothyroxine Sodium (Levothyroxine Sodium) 88 Mcg Tablet, 88 MCG PO QAM, (Reported) Pantoprazole Sodium (Pantoprazole Sodium) 40 Mg Tablet.dr, 40 MG PO DAILY, (Reported) Spironolactone (Spironolactone) 25 Mg Tablet, 25 MG PO QHS, (Reported) Torsemide (Torsemide) 20 Mg Tablet, 80 MG PO BID, (Reported) Umeclidinium Brm/Vilanterol Tr (Anoro Ellipta 62.5-25 Mcg INH) 1 Each Blst.w.dev, 1 PUFF INH QHS, (Reported) Scheduled PRN Albuterol Sulfate (Proair Hfa) 108 Mcg/Act Aer, 2 PUFF INH Q4H PRN for SHORTNESS OF BREATH, (Reported) Docusate Sodium (Colace) 100 Mg Capsule, 1 CAP PO BID PRN for CONSTIPATION, (Reported) Naproxen Sodium (Aleve) 220 Mg Tablet, 220 MG PO BID PRN for PAIN, (Reported) Nitroglycerin (Nitrostat) 0.4 Mg Subl, 0.4 MG SL NITRO PRN for CHEST PAIN, (Reported) Allergies Coded Allergies: Sulfa (Sulfonamide Antibiotics) (Verified Allergy, Mild, RASH, 09/30/19) latex (Verified Allergy, Mild, rash, 09/30/19) shellfish derived (Verified Allergy, Mild, ITCHING, 09/30/19) A-FIB/CHADSVASC A-FIB History Current/History of A-Fib/PAF?: No Vital Signs Vital Signs Date Time Temp Pulse Resp B/P (MAP) Pulse Ox O2 Delivery O2 Flow Rate FiO2 05/18/20 23:08 92 100 05/18/20 18:38 22 Nasal Cannula 3.0 05/18/20 17:30 102/66 (78) 05/18/20 16:30 97.9 Laboratory Data Labs 24H Laboratory Tests 2 05/18/20 17:47: Immature Granulocyte % (Auto) 1.1, Neutrophils (%) (Auto) 75.2H, Lymphocytes (%) (Auto) 9.7L, Monocytes (%) (Auto) 11.0H, Eosinophils (%) (Auto) 2.2, Basophils (%) (Auto) 0.8, Neutrophils # (Auto) 7.7, Lymphocytes # (Auto) 1.0L, Monocytes # (Auto) 1.1H, Eosinophils # (Auto) 0.2, Basophils # (Auto) 0.1, Nucleated Red Blood Cells % (auto) 0.0, Erythrocyte Sedimentation Rate 34H, Anion Gap 1L, Glomerular Filtration Rate 55.5, Calcium Level 8.9, Total Creatine Kinase 158, Creatine Kinase MB 3.9H, Creatine Kinase MB Relative Index 2.47, Troponin I < 0.02, C-Reactive Protein, Quantitative 0.62H, [id number]-[id number]-Type Natriuretic Peptide 694H CBC/BMP Laboratory Tests 05/18/20 17:47 Microbiology Microbiology 05/18/20 Respiratory Virus Panel (PCR) (DAPHNEY) - Final, Complete Plan / VTE VTE Prophylaxis Ordered?: Yes Jalen Hare MD May 18, 2020 23:22
[2020-05-19] VITALS: BP 116/62
[2020-05-19] MEDS: SPIRONOLACTONE 25 MG TAB PO SCH ×2 (00:44→20:32)
[2020-05-19] MEDS: ATORVASTATIN 20 MG TAB PO SCH ×2 (00:45→20:32)
[2020-05-19] MEDS ORDERED: VANCOMYCIN 1000MG/20ML VIAL IP ONE (00:45)
--- NOTE | 2020-05-19 00:49 | ECGEPIP ---
[facility] - ED Test Date: 2020-05-18 Pat Name: FIDEL TORRES Department: Room: - Gender: Male Cribber: AMARILIS : 1945 Requested By: Mike Yang Order Number: [id number] Reading MD: Mike Salazar Measurements Intervals [place] Rate: 70 P: 65 [place]: 91 QRS: 142 QRSD: 169 T: 45 QT: 480 QTc: 521 Interpretive Statements ELECTRONIC ATRIAL PACEMAKER ELECTRONIC VENTRICULAR PACEMAKER SIMILAR TO 03/27/20 Electronically Signed on 05-19-2020 0:49:10 EST by Mike Salazar
[2020-05-19] MEDS ORDERED: VANCOMYCIN HCL 750 MG, VIAL MATE ADAPTER 1 EACH in D5W 250 ML IV ONE (01:15)
[2020-05-19] MEDS: VANCOMYCIN HCL 1,000 MG, VIAL MATE ADAPTER 1 EACH in D5W 250 ML IV SCH ×2 (03:34→20:31)
[2020-05-19] MEDS: LEVOTHYROXINE 88MCG TABLET (0.088 MG) PO SCH (05:52)
[2020-05-19] MEDS: HEPARIN SOD (PORCINE) 5000UNITS/ML 1ML VIAL/SYRINGE SQ SCH ×3 (05:52→22:19)
[2020-05-19 06:00] LABS: HEMATOCRIT 33.9 % (42.0-52.0); HEMOGLOBIN 10.3 g/dl (13.5-17.5); MEAN CORPUSCULAR HEMOGLOBIN 28.2 pg (27.0-33.0); MEAN CORPUSCULAR HGB CONC 30.4 g/dl (32.0-36.5); MEAN CORPUSCULAR VOLUME 92.9 fl (80.0-96.0); PLATELET COUNT, AUTOMATED 280 10^3/uL (150-450); RED BLOOD COUNT 3.65 10^6/uL (4.30-6.10); WHITE BLOOD COUNT 9.6 10^3/uL (4.0-10.0)
[2020-05-19] MEDS: ALBUTEROL SULFATE 2.5 MG/0.5 ML INH NEB SOLN INH SCH ×3 (06:18→20:23)
[2020-05-19 06:36] LABS: BLOOD UREA NITROGEN 26 MG/DL (7-18); CALCIUM LEVEL 8.9 MG/DL (8.8-10.2); CARBON DIOXIDE LEVEL 33 MEQ/L (21-32); CHLORIDE LEVEL 100 MEQ/L (98-107); CREATININE FOR GFR 1.16 MG/DL (0.70-1.30); GLOMERULAR FILTRATION RATE > 60.0 (>42); GLUCOSE, FASTING 74 MG/DL (70-100); MAGNESIUM LEVEL 2.1 MG/DL (1.8-2.4); POTASSIUM SERUM 3.6 MEQ/L (3.5-5.1); SODIUM LEVEL 135 MEQ/L (136-145)
[2020-05-19] MEDS ORDERED: FUROSEMIDE 100MG/10ML VIAL (J1940) IV SCH (09:00)
[2020-05-19 10:00] VITALS: BP 116/60
[2020-05-19] MEDS: DOCUSATE SODIUM 100MG CAPSULE PO SCH ×2 (10:59→20:31)
[2020-05-19] MEDS: AMIODARONE 200 MG TAB (PACERONE) PO SCH ×3 (10:59→20:32)
[2020-05-19] MEDS: FINASTERIDE 5 MG TAB PO SCH (10:59)
[2020-05-19] MEDS: ASPIRIN 81 MG ENTERIC TAB PO SCH (10:59)
[2020-05-19] MEDS: PANTOPRAZOLE 40MG TAB (PROTONIX) PO SCH (11:00)
--- NOTE | 2020-05-19 11:47 | REP ---
INDICATION: swelling in the legs, R/o DVT COMPARISON: 08/28/2017. TECHNIQUE: Real time compression and duplex Doppler interrogation of the bilateral lower extremity deep venous system is performed. FINDINGS: Bilaterally, the common femoral, superficial femoral and popliteal veins are fully compressible with transducer pressure and demonstrate normal spontaneous and phasic flow, without evidence of deep venous thrombosis. IMPRESSION: No evidence of deep venous thrombosis of the bilateral lower extremity femoral popliteal venous system. <Electronically signed by David Jameson > 05/19/20 1148
[2020-05-19 14:00] VITALS: BP 99/47
[2020-05-19] MEDS: TIOTROPIUM INHALER/CAPSULE (SPIRIVA) INH SCH (16:57)
[2020-05-19 18:00] VITALS: BP 106/50
[2020-05-19] MEDS: FUROSEMIDE 100MG/10ML VIAL (J1940) IV SCH (18:01)
--- NOTE | 2020-05-19 20:12 | IPNPDOC ---
Subjective Date Seen The patient was seen on 05/19/20. Subjective Chief Complaint/HPI Mr. Murphy is a 75-year-old male with COPD chronically on 3 L who is here for CHF exacerbation and cellulitis of the left lower extremity. This morning, he reports shortness of breath, but no chest pain. He is concerned about his medications. He was on triple therapy inhalers for COPD and diuretics for CHF, but he was taken off of these medications on discharge from rehabilitation. He wanted to be back on his inhalers. Objective Physical Examination General Exam: Positive: Alert, Cooperative Eye Exam: Positive: EOMI; Negative: Sclera icteric Neck Exam: Positive: Supple Chest Exam: Positive: Rales, Rhonchi Heart Exam: Positive: Rate Normal, Regular Rhythm Abdomen Exam: Positive: Normal bowel sounds, Soft; Negative: Tenderness Extremity Exam: Positive: Edema, Tenderness, Swelling Skin Exam: Positive: Rash (bilateral erythema) Neuro Exam: Positive: Cranial Nerves 3-12 NL Psych Exam: Positive: Mental status NL, Mood NL Assessment /Plan Assessment Mr. Murphy is a 75-year-old male with COPD chronically on 3 L who is here for CHF exacerbation and cellulitis of the left lower extremity. He'll be on vancomycin for the cellulitis. He was restarted on diuresis for CHF exacerbation. On discharge we will continue his diuretic medications. 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 CHF exacerbation His torsemide was discontinued on discharge from rehabilitation Patient be restarted on diuretics 2. Cellulitis Has erythema, swelling, warmth, tenderness of the left leg He may have cellulitis superimposed on venous-stasis dermatitis Continue vancomycin 3. Hypothyroidism Continue levothyroxine 4. BPH Currently on Wilkins catheter Continue finasteride 5. CAD Stable continue aspirin and statin 6. COPD Stable We'll put him on triple therapy and albuterol as needed 7. DVT prophylaxis Subcutaneous heparin VS, I&O, 24H, Fishbone Vital Signs/I&O Vital Signs Date Time Temp Pulse Resp B/P (MAP) Pulse Ox O2 Delivery O2 Flow Rate FiO2 05/19/20 10:00 97.4 77 20 116/60 (78) 95 05/19/20 00:00 Nasal Cannula 3.0 I&O- Last 24 Hours up to 6 AM 05/19/20 06:00 Intake Total 695 ml Output Total 850 ml Balance -155 ml Laboratory Data 24H LABS Laboratory Tests 2 05/18/20 17:47: Immature Granulocyte % (Auto) 1.1, Neutrophils (%) (Auto) 75.2H, Lymphocytes (%) (Auto) 9.7L, Monocytes (%) (Auto) 11.0H, Eosinophils (%) (Auto) 2.2, Basophils (%) (Auto) 0.8, Neutrophils # (Auto) 7.7, Lymphocytes # (Auto) 1.0L, Monocytes # (Auto) 1.1H, Eosinophils # (Auto) 0.2, Basophils # (Auto) 0.1, Nucleated Red Blood Cells % (auto) 0.0, Erythrocyte Sedimentation Rate 34H, Anion Gap 1L, Glomerular Filtration Rate 55.5, Calcium Level 8.9, Total Creatine Kinase 158, Creatine Kinase MB 3.9H, Creatine Kinase MB Relative Index 2.47, Troponin I < 0.02, C-Reactive Protein, Quantitative 0.62H, KD-[id number]-D-Type Natriuretic Peptide 694H 05/19/20 05:37: Nucleated Red Blood Cells % (auto) 0.0, Anion Gap 2L, Glomerular Filtration Rate > 60.0, Calcium Level 8.9, Magnesium Level 2.1 CBC/BMP Laboratory Tests 05/18/20 17:47 05/19/20 05:37 Microbiology Microbiology 05/19/20 Blood Culture, Received Pending 05/19/20 Blood Culture, Received Pending 05/18/20 Respiratory Virus Panel (PCR) (DAPHNEY) - Final, Complete YULI PLASCENCIA DO May 19, 2020 15:04
[2020-05-19] MEDS ORDERED: POTASSIUM CHLORIDE 10 MEQ SR TABLET PO ONE (21:00)
--- NOTE | 2020-05-19 21:35 | CR ---
NEPHROLOGY CONSULTATION DATE: 05/19/2020 REQUESTING PHYSICIAN: Dr. Grover Ramirez CONSULTING PHYSICIAN: Dr. Naina Ng REASON FOR CONSULTATION: Management of acute renal failure and optimization of fluid status. CHIEF COMPLAINT: The patient presented to the hospital yesterday with dermatitis, pain and swelling of the legs. HISTORY OF PRESENT ILLNESS: Davion Murphy is a 75-year-old male with a past medical history of congestive heart failure, status post biventricular pacemaker, benign prostatic hypertrophy, chronic indwelling Wilkins catheter, recently treated for a right hip fracture with closed reduction and internal fixation. He was discharged from [facility] on May 10 and presented to the hospital yesterday with worsening bilateral lower extremity edema, swelling, redness, pain, inability to walk. The patient was on Torsemide 160 mg daily which was stopped on discharge. He was admitted under the Hospitalist service yesterday with acute congestive heart failure exacerbation, acute renal failure and cellulitis of the lower extremities. Nephrology Service was called for further help in the management of this patient. I saw and evaluated the patient today morning at the bedside. He is a poor historian. He was sitting up with his legs hanging, and he still reports lower extremity edema, but he reports that it is slightly getting better today as compared with yesterday. PAST MEDICAL HISTORY: The patient's past medical history is significant for: 1. Chronic kidney disease stage 3. Baseline creatinine is around 1.1. 2. History of a chronic indwelling Wilkins catheter. 3. Chronic anemia. 4. Coronary artery disease. 5. History of congestive heart failure. 6. Biventricular pacemaker and defibrillator. 7. Previous echocardiogram from 2018 shows heart failure preserved ejection fraction and diastolic dysfunction. 8. Chronic obstructive pulmonary disease. 9. Colonic polyps. 10. Hypothyroidism. 11. Polymyalgia rheumatica. 12. Hyperlipidemia. PAST SURGICAL HISTORY: The patient's past surgical history is significant for: 1. Status post biventricular pacemaker. 2. Status post right femur closed reduction and internal fixation. 3. History of right inguinal hernia surgery. ALLERGIES: He is allergic to: 1. Sulfa drugs. 2. Latex. 3. Shellfish. FAMILY HISTORY: No significant family history of end-stage renal disease requiring hemodialysis. SOCIAL HISTORY: He is a former smoker. He recently quit smoking after his fracture. He denies any illicit drug abuse or alcohol abuse. He was recently discharged from [facility] about 10 days ago. REVIEW OF SYSTEMS: Constitutional: He denies any fevers or chills. Eyes: He denies any blurry vision, double vision. ENT: Denies any dysphagia, odynophagia. Cardiovascular: He reports worsening swelling of the legs. Respiratory: He reports shortness of breath. GI: Denies any nausea or vomiting. Genitourinary: He reports chronic indwelling Wilkins catheter. Musculoskeletal: He reports decreased lower extremity movement because of edema. Skin: He reports a rash and erythema on the bilateral lower extremities. C&S: He denies any seizures. Hematological/Oncological: He denies any easy bleeding or bruising. All other review of systems is negative. PHYSICAL EXAMINATION: GENERAL APPEARANCE: The patient is awake, alert, oriented x2, obese body habitus, sitting up in the bed. VITAL SIGNS: Temperature is 97.4 degrees Fahrenheit, blood pressure 116/60, pulse is 77, respiratory rate of 20, saturating 95% on nasal cannula at 3 liters. HEAD AND NECK: Extraocular muscles intact. Pupils are equally round and reactive to light. Mucous membranes are moist. Neck is supple. There is moderately elevated jugular venous distention. CARDIOVASCULAR: S1, S2, regular rate. EXTREMITIES: 3+ edema of the bilateral lower extremities all the way up to his hips. RESPIRATORY: Decreased breath sounds at the bases with inspiratory crackles at the bases. ABDOMEN: Soft, obese, positive bowel sounds. Abdominal wall edema was noted. MUSCULOSKELETAL: He has erythema of the bilateral lower extremities with tenderness and blisters in the left lower extremity. 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 Power is 5/5 in bilateral upper extremities. LAB REVIEW: CBC showed a WBC of 10.3 on arrival. It is 9.6 now. Hemoglobin is 10.3, platelet count 280. A urinalysis is not available. BMP showed sodium of 138, potassium 4.5, chloride 101, bicarbonate 36, BUN 29, creatinine 1.3. C-reactive protein was 0.6. Pro BNP was 694. Repeat BMP done today morning showed a creatinine of 1.1. Microbiology: Blood cultures are pending. IMAGING DATA: Doppler of the bilateral lower extremities showed no evidence of DVT. Chest x-ray done today showed mild cardiomegaly, mild vascular congestion and chronic interstitial densities. CURRENT INPATIENT MEDICATIONS: The patient's medications were all reviewed by myself. He has been started on IV Vancomycin. He is on Albuterol, Mylanta p.r.n., Amiodarone 200 mg p.o. three times daily, Aspirin 81 mg daily, Lipitor 80 mg q. h.s., Colace 100 mg p.o. twice daily, Finasteride 5 mg p.o. daily. He was getting Lasix 60 mg IV twice daily. I have increased the dose to 60 mg IV q. 8 hourly. He is on Levothyroxine 88 mcg p.o. daily, Milk of Magnesium, Protonix 40 mg daily, Advair 2 puffs twice daily, Spironolactone 25 mg q. h.s. ASSESSMENT AND PLAN: 1. Acute kidney injury superimposed on chronic kidney disease it is most likely secondary to decompensated congestive heart failure the patient's creatinine is already improving with the use of IV diuretics. I have increased the diuretic dose as mentioned above. 2. Itgct-[id number] congestive heart failure exacerbation - The patient has significant volume overload. He would continue Lasix 60 mg IV q. 8 hourly now. Continue Spironolactone. I would also give him a dose of potassium. Monitor daily intake and output. 3. Cellulitis of the bilateral lower extremities - The patient is currently getting Vancomycin. DVT is negative on the duplex. The rest of the management is as per the Medical Team. 4. History of BPH - chronic indwelling Wilkins catheter. Continue Finasteride at this time. The Wilkins catheter is working well at this time.
[2020-05-19 22:00] VITALS: BP 105/51
[2020-05-20 02:00] VITALS: BP 104/52
[2020-05-20] MEDS: FUROSEMIDE 100MG/10ML VIAL (J1940) IV SCH ×3 (02:46→18:00)
[2020-05-20] MEDS: HEPARIN SOD (PORCINE) 5000UNITS/ML 1ML VIAL/SYRINGE SQ SCH ×3 (05:34→21:14)
[2020-05-20] MEDS: LEVOTHYROXINE 88MCG TABLET (0.088 MG) PO SCH (05:34)
[2020-05-20 06:00] VITALS: BP 105/54
[2020-05-20 06:02] LABS: HEMATOCRIT 33.4 % (42.0-52.0); HEMOGLOBIN 10.4 g/dl (13.5-17.5); MEAN CORPUSCULAR HEMOGLOBIN 28.6 pg (27.0-33.0); MEAN CORPUSCULAR HGB CONC 31.1 g/dl (32.0-36.5); MEAN CORPUSCULAR VOLUME 91.8 fl (80.0-96.0); PLATELET COUNT, AUTOMATED 294 10^3/uL (150-450); RED BLOOD COUNT 3.64 10^6/uL (4.30-6.10); WHITE BLOOD COUNT 9.1 10^3/uL (4.0-10.0)
[2020-05-20 06:28] LABS: BLOOD UREA NITROGEN 21 MG/DL (7-18); CALCIUM LEVEL 9.1 MG/DL (8.8-10.2); CARBON DIOXIDE LEVEL 31 MEQ/L (21-32); CHLORIDE LEVEL 102 MEQ/L (98-107); CREATININE FOR GFR 1.11 MG/DL (0.70-1.30); GLOMERULAR FILTRATION RATE > 60.0 (>42); GLUCOSE, FASTING 88 MG/DL (70-100); SODIUM LEVEL 138 MEQ/L (136-145)
[2020-05-20] MEDS: ALBUTEROL SULFATE 2.5 MG/0.5 ML INH NEB SOLN INH SCH ×3 (07:42→20:41)
[2020-05-20] MEDS: ADVAIR HFA 115/21MCG INHALER INH SCH ×2 (07:42→20:41)
[2020-05-20] MEDS: TIOTROPIUM INHALER/CAPSULE (SPIRIVA) INH SCH (07:42)
[2020-05-20] MEDS ORDERED: ACETAMINOPHEN TAB 650MG DOSE (2X325MG) PO PRN (09:30)
[2020-05-20] MEDS: ASPIRIN 81 MG ENTERIC TAB PO SCH (09:31)
[2020-05-20] MEDS: PANTOPRAZOLE 40MG TAB (PROTONIX) PO SCH (09:31)
[2020-05-20] MEDS: AMIODARONE 200 MG TAB (PACERONE) PO SCH ×3 (09:31→21:13)
[2020-05-20] MEDS: DOCUSATE SODIUM 100MG CAPSULE PO SCH ×2 (09:31→21:13)
[2020-05-20] MEDS: FINASTERIDE 5 MG TAB PO SCH (09:31)
[2020-05-20 10:00] VITALS: BP 111/53
--- NOTE | 2020-05-20 12:11 | ECHO ---
DATE OF PROCEDURE: 05/19/2020 Age: 75 Gender: Male Height: 63 inches Weight: 180 pounds Body surface area: 1.85 m2 PATIENT LOCATION: Inpatient [address] [place] [address], Room 4210. REFERRING PHYSICIAN: Grover Ramirez DO INDICATION: Congestive heart failure (CHF). MEASUREMENTS: 2D Measurements: RV 4.1 cm LV 5.0 cm Septum 1.1 cm Posterior wall 1.1 cm Aortic Root 3.4 cm LA 4.4 cm LVEF 55% Doppler Measurements: AV 1.69 m/s LVOT 0.97 m/s MV-E 106, A 134, E/A ratio 0.8 Early mitral deceleration time 230 msec E prime medial 6.6, A prime medial 9, E prime lateral 8 Average E/E prime ratio 14.5/PCWP - 20 mmHg PV Not well visualized RVSP 32 mmHg IVC 1.9 cm COMMENTS: Consistent AV sequentially paced rhythm. Paced QRS complexes with right bundle branch block morphology in keeping with a biventricular ICD. Technically challenging study in light of the patients body habitus, but diagnostically useful information was still obtained. M-mode and two-dimensional echocardiography was performed with pulse, continuous wave, color flow, and tissue Doppler studies. Normal left ventricular size, wall thickness, and wall motion. Mildly dilated left atrium with grade 1 LV diastolic dysfunction and current estimated mean left atrial pressure that was mildly increased. Right heart chamber sizes upper limits of normal with normal wall motion and mild pulmonary hypertension. Normal IVC size and collapse against an elevated central venous pressure. Normal aortic dimensions. Moderate aortic valvular sclerosis without stenosis or insufficiency. Moderately severe mitral annular calcification without inflow tract obstruction and only mild insufficiency. Normal appearing tricuspid valve with mild insufficiency. Pacing leads could be visualized traversing right heart structures. No separate intracardiac mass. No pericardial effusion. MTDD
--- NOTE | 2020-05-20 13:29 | IPNPDOC ---
Subjective Date Seen The patient was seen on 05/20/20. Subjective Chief Complaint/HPI Mr. Murphy is a 75-year-old male with COPD chronically on 3 L who is here for CHF exacerbation and cellulitis of the left lower extremity. This morning, his breathing is better. Denies chest pain. Still has left leg warm and tenderness. Objective Physical Examination General Exam: Positive: Alert, Cooperative Eye Exam: Positive: EOMI; Negative: Sclera icteric Neck Exam: Positive: Supple Chest Exam: Positive: Rales, Rhonchi Heart Exam: Positive: Rate Normal, Regular Rhythm Abdomen Exam: Positive: Normal bowel sounds, Soft; Negative: Tenderness Extremity Exam: Positive: Edema, Tenderness, Swelling Skin Exam: Positive: Rash (bilateral erythema) Neuro Exam: Positive: Cranial Nerves 3-12 NL Psych Exam: Positive: Mental status NL, Mood NL Assessment /Plan Assessment Mr. Murphy is a 75-year-old male with COPD chronically on 3 L who is here for CHF exacerbation and cellulitis of the left lower extremity. He'll be on vancomycin for the cellulitis. He was restarted on diuresis for CHF exacerbation. On discharge we will continue his diuretic medications. 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 CHF exacerbation His torsemide was discontinued on discharge from rehabilitation Patient be restarted on diuretics -Echocardiogram demonstrates EF of 55% with grade 1 diastolic dysfunction. 2. Cellulitis Has erythema, swelling, warmth, tenderness of the left leg He may have cellulitis superimposed on venous-stasis dermatitis Continue vancomycin 3. Hypothyroidism Continue levothyroxine 4. BPH Currently on Wilkins catheter Continue finasteride 5. CAD Stable continue aspirin and statin 6. COPD Stable We'll put him on triple therapy and albuterol as needed 7. DVT prophylaxis Subcutaneous heparin Disposition: Still has erythema, warmth, and tenderness in left leg. If improves tomorrow, possible discharge tomorrow with doxycycline. VS, I&O, 24H, Fishbone Vital Signs/I&O Vital Signs Date Time Temp Pulse Resp B/P (MAP) Pulse Ox O2 Delivery O2 Flow Rate FiO2 05/20/20 10:00 97.5 72 20 111/53 (72) 96 Nasal Cannula 2.0 I&O- Last 24 Hours up to 6 AM 05/20/20 05:59 Intake Total 1710 ml Output Total 2900 ml Balance -1190 ml Laboratory Data 24H LABS Laboratory Tests 2 05/20/20 05:51: Nucleated Red Blood Cells % (auto) 0.0, Anion Gap 5L, Glomerular Filtration Rate > 60.0, Calcium Level 9.1 CBC/BMP Laboratory Tests 05/20/20 05:51 Microbiology Microbiology 05/19/20 Blood Culture - Preliminary, Resulted No growth after 24 hours . All specim... 05/19/20 Blood Culture - Preliminary, Resulted No growth after 24 hours . All specim... 05/18/20 Respiratory Virus Panel (PCR) (DAPHNEY) - Final, Complete YULI PLASCENCIA DO May 20, 2020 13:29
[2020-05-20] MEDS: VANCOMYCIN HCL 1,000 MG, VIAL MATE ADAPTER 1 EACH in D5W 250 ML IV SCH (13:58)
[2020-05-20 14:00] VITALS: BP 118/58
[2020-05-20] MEDS: DOXYCYCLINE HYCLATE 100 MG in D5W MINI-BAG PLUS 100 ML IV SCH (15:57)
[2020-05-20 18:00] VITALS: BP 113/67
[2020-05-20] MEDS ORDERED: POTASSIUM CHLORIDE 10 MEQ SR TABLET PO ONE (20:00)
--- NOTE | 2020-05-20 20:04 | IPN ---
NEPHROLOGY PROGRESS NOTE DATE: 05/20/2020 SUBJECTIVE: The patient was seen and examined at the bedside today morning. He had just come back from the restroom when I saw him. He reports that his leg edema is significantly getting better. He is able to walk with the help of a walker now. Erythema and cellulitis is also improving with the help of IV antibiotics. Renal function stayed stable with a creatinine of 1.1, despite increase in his diuretic dose yesterday. OBJECTIVE: VITAL SIGNS: Temperature is 97.8 degrees Fahrenheit, blood pressure 118/58, pulse is 74, respiratory rate of 20, saturating 94% on nasal cannula at 2 liters. INTAKE AND OUTPUT: Urine output recorded as 3.7 liters yesterday, 2.6 liters so far today since overnight. Weight in the bed scale is 78.7 kg which is lower than yesterday. PHYSICAL EXAMINATION: GENERAL APPEARANCE: The patient is awake, alert, oriented x3, sitting up in the bed in no apparent distress. HEAD AND NECK: Extraocular muscles intact. Pupils are equally round and reactive to light. Mucous membranes are moist. Neck is supple. There is no mildly elevated jugular venous distention. CARDIOVASCULAR: S1, S2, regular rate. EXTREMITIES: About 3+ edema of the bilateral lower extremities all the way up to his hips. RESPIRATORY: Decreased breath sounds at the bases, otherwise no active rales or rhonchi. ABDOMEN: Soft, obese, positive bowel sounds, nontender, no organomegaly. GENITOURINARY: He has an indwelling Wilkins catheter. MUSCULOSKELETAL: He has erythema and tenderness of the bilateral lower extremities. Left is worse than right. SUPERVISOR FITTING: No focal deficits. Power is 5/5 in bilateral upper extremities. LAB REVIEW: CBC showed a WBC of 9.1, hemoglobin 10.4, platelets are 294. BMP showed sodium of 138, potassium 4, chloride 102, bicarbonate 31, BUN 21, creatinine is 1.1. Vancomycin level is 18.8 today. Microbiology: Cultures are negative so far. CURRENT INPATIENT MEDICATIONS: The patient's medications were all reviewed by myself. He continues to be on Lasix 60 mg IV q. 8 hourly. His Vancomycin has been stopped. He has been started on Doxycycline 100 mg q. 12 hourly. He continues on Spironolactone 25 mg q. h.s. I would give him another dose of potassium again today. ASSESSMENT AND PLAN: 1. Acute kidney injury superimposed on chronic kidney disease it was cardiorenal in nature. The patient is being diuresed. Renal function is stable and has improved back to baseline. Continue current diuretic regimen. 2. Acute congestive heart failure exacerbation and fluid overload - continue Lasix 60 mg IV q. 8 hourly. Continue Spironolactone 25 mg daily. Edema is slowly improving. 3. Cellulitis of the bilateral lower extremities Medical Team has stopped Vancomycin and started the patient on Doxycycline. Clinically he is getting better. 4. History of benign prostatic hypertrophy and chronic indwelling Wilkins - continue Finasteride.
[2020-05-20] MEDS: SPIRONOLACTONE 25 MG TAB PO SCH (21:13)
[2020-05-20] MEDS: ATORVASTATIN 20 MG TAB PO SCH (21:13)
[2020-05-20 22:00] VITALS: BP 112/55
[2020-05-21 02:00] VITALS: BP 111/55
[2020-05-21] MEDS: FUROSEMIDE 100MG/10ML VIAL (J1940) IV SCH (02:30)
[2020-05-21] MEDS: DOXYCYCLINE HYCLATE 100 MG in D5W MINI-BAG PLUS 100 ML IV SCH (02:48)
[2020-05-21] MEDS: LEVOTHYROXINE 88MCG TABLET (0.088 MG) PO SCH (05:52)
[2020-05-21] MEDS: HEPARIN SOD (PORCINE) 5000UNITS/ML 1ML VIAL/SYRINGE SQ SCH (05:53)
[2020-05-21 06:00] VITALS: BP 110/58
[2020-05-21] MEDS: ADVAIR HFA 115/21MCG INHALER INH SCH (07:53)
[2020-05-21] MEDS: TIOTROPIUM INHALER/CAPSULE (SPIRIVA) INH SCH (07:53)
[2020-05-21] MEDS: ALBUTEROL SULFATE 2.5 MG/0.5 ML INH NEB SOLN INH SCH ×2 (07:54→13:14)
[2020-05-21] MEDS ORDERED: POTASSIUM CHLORIDE 10 MEQ SR TABLET PO SCH (09:00)
[2020-05-21] MEDS ORDERED: TORSEMIDE (DEMADEX) 50 MG PER 1/2 TAB PO SCH (09:00)
[2020-05-21] MEDS ORDERED: DOXY100C PO (09:26)
[2020-05-21] MEDS ORDERED: AMOX875T PO (09:26)
[2020-05-21] MEDS: PANTOPRAZOLE 40MG TAB (PROTONIX) PO SCH (09:32)
[2020-05-21] MEDS: AMIODARONE 200 MG TAB (PACERONE) PO SCH (09:32)
[2020-05-21] MEDS: DOCUSATE SODIUM 100MG CAPSULE PO SCH (09:32)
[2020-05-21] MEDS: FINASTERIDE 5 MG TAB PO SCH (09:32)
[2020-05-21] MEDS: ASPIRIN 81 MG ENTERIC TAB PO SCH (09:32)
[2020-05-21 10:00] VITALS: BP 112/55
[2020-05-21 12:20] LABS: HEMATOCRIT 34.1 % (42.0-52.0); HEMOGLOBIN 10.3 g/dl (13.5-17.5); MEAN CORPUSCULAR HEMOGLOBIN 27.6 pg (27.0-33.0); MEAN CORPUSCULAR HGB CONC 30.2 g/dl (32.0-36.5); MEAN CORPUSCULAR VOLUME 91.4 fl (80.0-96.0); PLATELET COUNT, AUTOMATED 292 10^3/uL (150-450); RED BLOOD COUNT 3.73 10^6/uL (4.30-6.10); WHITE BLOOD COUNT 9.3 10^3/uL (4.0-10.0)
[2020-05-21 12:39] LABS: ERYTHROCYTE SEDIMENTATION RATE 46 mm/hr (0-20)
[2020-05-21 12:54] LABS: BLOOD UREA NITROGEN 23 MG/DL (7-18); C REACTIVE PROTEIN QUANTITATIV 0.51 MG/DL (0.00-0.30); CALCIUM LEVEL 9.4 MG/DL (8.8-10.2); CARBON DIOXIDE LEVEL 35 MEQ/L (21-32); CHLORIDE LEVEL 97 MEQ/L (98-107); CREATININE FOR GFR 1.13 MG/DL (0.70-1.30); GLOMERULAR FILTRATION RATE > 60.0 (>42); GLUCOSE, FASTING 85 MG/DL (70-100); POTASSIUM SERUM 4.2 MEQ/L (3.5-5.1); SODIUM LEVEL 135 MEQ/L (136-145)
--- NOTE | 2020-05-21 13:36 | IPNPDOC ---
Subjective Date Seen The patient was seen on 05/21/20. Subjective Chief Complaint/HPI Patient was seen today sitting upright in his chair. Patient's condition continues to improve and he does not report any events that occurred last night. He is motivated to be discharged today. He states that his legs are feeling much better and that he is urinating appropriately. Patient reports that home medications included torsemide dosed 80 mg twice a day. He states that when he was at [facility], his torsemide was stopped for a week. Nursing staff does not report any overnight events. General: Denies: ROS Unobtainable, Chills, Night Sweats, Fatigue, Malaise, Normal Appetite, Other Symptoms Constitutional: Denies: Chills, Fever, Malaise, Night Sweats, Weakness, Fatigue, Weight Loss, Lethargy, Other Genitourinary: Denies: Dysuria, Frequency, Incontinence, Hematuria, Retention Objective Physical Examination General Exam: Positive: Alert, Cooperative Eye Exam: Positive: EOMI; Negative: Sclera icteric Neck Exam: Positive: Supple Chest Exam: Positive: Clear to auscultation, Normal air movement; Negative: Rales, Rhonchi Heart Exam: Positive: Rate Normal, Regular Rhythm Abdomen Exam: Positive: Normal bowel sounds, Soft; Negative: Tenderness Extremity Exam: Positive: Edema (continues to have some edema up to his hips. Improved from yesterday.), Tenderness, Swelling Skin Exam: Positive: Rash (bilateral erythema) Neuro Exam: Positive: Cranial Nerves 3-12 NL Psych Exam: Positive: Mental status NL, Mood NL Assessment /Plan Assessment # Acute kidney injury superimposed on chronic kidney disease: Patient's creatinine is now back to baseline. The patient has been strongly advised to follow up in clinic within 7 days. # Acute congestive heart failure exacerbation and fluid overload - patient's furosemide has been discontinued, anticipating discharged today. Patient's torsemide dose has been adjusted to 50 mg twice a day and patient was counseled about this. Continue Spironolactone 25 mg daily. Edema is slowly improving. # Cellulitis of the bilateral lower extremities: pt is on doxycycline. Continues to improve. # History of benign prostatic hypertrophy with chronic trujillo catheter: continue Finasteride. Plan/VTE VTE Prophylaxis Ordered?: Yes (patient is on heparin 5000 units.) Disposition Patient will likely be discharged today. Patient has been counseled to follow up in nephrology clinic within 7 days. Follow-up orders have been placed. GME ATTESTATION My faculty preceptor for this patient encounter was physically present during the encounter and was fully available. All aspects of the patient interview, examination, medical decision making process, and medical care plan development were reviewed and approved by the faculty preceptor. The faculty preceptor is aware and concurs with the plan as stated in the body of this note and will attest to such by his/her cosignature. VS, I&O, 24H, Fishbone Vital Signs/I&O Vital Signs Date Time Temp Pulse Resp B/P (MAP) Pulse Ox O2 Delivery O2 Flow Rate FiO2 05/21/20 10:00 97.6 77 16 112/55 (74) 92 Nasal Cannula 2.0 I&O- Last 24 Hours up to 6 AM0 05/21/20 06:00 Intake Total 1881 ml Output Total 4875 ml Balance -2994 ml Laboratory Data 24H LABS Laboratory Tests 2 05/21/20 12:14: Nucleated Red Blood Cells % (auto) 0.0, Erythrocyte Sedimentation Rate 46H, Anion Gap 3L, Glomerular Filtration Rate > 60.0, Calcium Level 9.4, C-Reactive Protein, Quantitative 0.51H CBC/BMP Laboratory Tests 05/21/20 12:14 Microbiology Microbiology 05/19/20 Blood Culture - Preliminary, Resulted No Growth after 48 hours. All Specime... 05/19/20 Blood Culture - Preliminary, Resulted No Growth after 48 hours. All Specime... 05/18/20 Respiratory Virus Panel (PCR) ([facility]) - Final, Complete Attending Note Attending Note CKD3 Decompensated CHF and LE edema Cellulitis of lower extremities BPH and chronic indwelling Trujillo Torsemide 50 mg bid and spironolactone 25 mg on DC. Follow up in nephrology office. Cont Abx on DC. Nikita Ng DO May 21, 2020 13:36 HUBERT NG MD May 22, 2020 15:51
--- NOTE | 2020-05-21 22:24 | DS.PDOC ---
Discharge Summary General Date of Admission May 18, 2020 at 21:32 Date of Discharge May 21, 2020 Attending Physician: YULI PLASCENCIA DO Specialist/[facility], Dr. Ng Discharge Summary PROCEDURES PERFORMED DURING STAY: None. ADMITTING DIAGNOSES: 1. CHF exacerbation 2. Left leg cellulitis 3. Hypothyroidism 4. BPH 5. CAD 6. COPD DISCHARGE DIAGNOSES: 1. CHF exacerbation 2. Left leg cellulitis 3. Hypothyroidism 4. BPH 5. CAD 6. COPD COMPLICATIONS/CHIEF COMPLAINT: Diastolic Chf,Stasis Dermtitis Of Both Legs. HISTORY OF PRESENT ILLNESS: Mr. Murphy is a 75 year old male with CAD s/p biventricular ICD and BPH with chronic Wilkins who is here for left leg cellulitis and CHF exacerbation. He was recently had right hip fracture s/p closed reduction and fixation and was sent to [facility] for rehab. He was discharged on 05/10/2020. When he was discharged, he was not on diuretics. He came into the ED for increase swelling in his legs. His left leg was warm and erythematous as well. Patient was admitted for left leg cellulitis and CHF exacerbation. HOSPITAL COURSE: He was initially on Vancomycin, but was transitioned to IV doxycycline. He also said his inhalers were discontinued as well. We restarted his inhalers. Nephrology was following and helped managed his diuretics. Today, he was feeling better back on both diuretics and inhalers. The cellulitis on the left leg was improving. He denied any fever, chest pain, or dyspnea. He felt ready for home and was subsequently discharged home. DISCHARGE MEDICATIONS: Please see below. ALLERGIES: Please see below. PHYSICAL EXAMINATION ON DISCHARGE: VITAL SIGNS: Please see below. GENERAL: Comfortable, in no apparent distress HEENT: Head normocephalic, atraumatic, EOMI, sclera clear NECK: Supple CARDIOVASCULAR EXAMINATION: Regular rate and rhythm RESPIRATORY EXAMINATION:Coarse breath sounds ABDOMINAL EXAMINATION: Soft, non-tender, normal bowel sounds EXTREMITIES: Bilateral pitting edema. Erythema can be seen on both legs, but the left leg feels warmer NEUROLOGICAL EXAMINATION: CN 3-12 grossly intact PSYCHIATRIC EXAMINATION: Normal mood and affect LABORATORY DATA: Please see below. IMAGING: CXR Mild cardiomegaly and mild vascular congestion. Stable chronic interstitial densities bilaterally. US lower extremity No evidence of deep venous thrombosis of the bilateral lower extremity femoral popliteal venous system. PROGNOSIS: Good ACTIVITY: As tolerated. DIET: 2gm sodium diet DISCHARGE PLAN: Home with home services DISPOSITION: Home, Self-Care. DISCHARGE INSTRUCTIONS: 1. Follow up with PCP within 1 week 2. Follow up with nephrology in 1 week 3. Follow up with cardiology in 1 week 4. Follow up with pulmonology in 1 week DISCHARGE CONDITION: Stable. Total time spent on discharge planning, discharge summary, and medication reconciliation: 45 minutes Vital Signs/I&Os Vital Signs Date Time Temp Pulse Resp B/P (MAP) Pulse Ox O2 Delivery O2 Flow Rate FiO2 05/21/20 10:00 97.6 77 16 112/55 (74) 92 Nasal Cannula 2.0 I&O- Last 24 Hours up to 6 AM 05/21/20 06:00 Intake Total 1881 ml Output Total 4875 ml Balance -2994 ml Laboratory Data Labs 24H Laboratory Tests 2 05/21/20 12:14: Nucleated Red Blood Cells % (auto) 0.0, Erythrocyte Sedimentation Rate 46H, Anion Gap 3L, Glomerular Filtration Rate > 60.0, Calcium Level 9.4, C-Reactive Protein, Quantitative 0.51H CBC/BMP Laboratory Tests 05/21/20 12:14 Microbiology Microbiology 05/19/20 Blood Culture - Preliminary, Resulted No Growth after 48 hours. All Specime... 05/19/20 Blood Culture - Preliminary, Resulted No Growth after 48 hours. All Specime... 05/18/20 Respiratory Virus Panel (PCR) ([facility]) - Final, Complete Discharge Medications Scheduled Albuterol Sulfate (Albuterol Sulfate) 2.5 Mg/0.5 Ml Vial.neb, 2.5 MG INH TID, (Reported) Alendronate Sodium (Fosamax) 70 Mg Tablet, 70 MG PO QWEEK, (Reported) THURSDAYS Amiodarone Hcl (Pacerone) 200 Mg Tablet, 200 MG PO TID, (Reported) Amoxicillin (Amoxicillin) 875 Mg Tablet, 875 MG PO BID Aspirin (Aspirin EC) 81 Mg Tablet.dr, 81 MG PO DAILY, (Reported) Atorvastatin Calcium (Atorvastatin Calcium) 80 Mg Tab, 80 MG PO QHS, (Reported) Cholecalciferol (Vitamin D3) (Vitamin D3) 1,000 Unit Tablet, 3,000 UNITS PO DAILY, (Reported) Doxycycline Hyclate (Doxycycline Hyclate) 100 Mg Capsule, 100 MG PO BID Finasteride (Finasteride) 5 Mg Tablet, 5 MG PO DAILY, (Reported) Levothyroxine Sodium (Levothyroxine Sodium) 88 Mcg Tablet, 88 MCG PO QAM, (Reported) Pantoprazole Sodium (Pantoprazole Sodium) 40 Mg Tablet.dr, 40 MG PO DAILY, (Repo rted) Spironolactone (Spironolactone) 25 Mg Tablet, 25 MG PO QHS, (Reported) Torsemide (Torsemide) 20 Mg Tablet, 80 MG PO BID, (Reported) Umeclidinium Brm/Vilanterol Tr (Anoro Ellipta 62.5-25 Mcg INH) 1 Each Blst.w. dev, 1 PUFF INH QHS, (Reported) Scheduled PRN Albuterol Sulfate (Proair Hfa) 108 Mcg/Act Aer, 2 PUFF INH Q4H PRN for SHORTNESS OF BREATH, (Reported) Docusate Sodium (Colace) 100 Mg Capsule, 1 CAP PO BID PRN for CONSTIPATION, (Reported) Naproxen Sodium (Aleve) 220 Mg Tablet, 220 MG PO BID PRN for PAIN, (Reported) Nitroglycerin (Nitrostat) 0.4 Mg Subl, 0.4 MG SL NITRO PRN for CHEST PAIN, (Reported) Allergies Coded Allergies: Sulfa (Sulfonamide Antibiotics) (Verified Allergy, Mild, RASH, 09/30/19) latex (Verified Allergy, Mild, rash, 09/30/19) shellfish derived (Verified Allergy, Mild, ITCHING, 09/30/19) YULI PLASCENCIA DO May 21, 2020 22:24
== END 2020-05-21 13:58 | disposition home health service (06) | DRG 292 ==
LOC: M ED 15:52 → M ED INP 21:32 → M MSPAV 23:45
PROVIDERS: ADMIT Family Medicine; ATTEND Internal Medicine
DX: I50.9 Heart failure, unspecified (principal); L03.116 Cellulitis of left lower limb; N17.9 Acute kidney failure, unspecified; L03.115 Cellulitis of right lower limb; J44.9 Chronic obstructive pulmonary disease, unspecified; I25.10 Atherosclerotic heart disease of native coronary artery without angina pectoris; N40.0 Benign prostatic hyperplasia without lower urinary tract symptoms; E03.9 Hypothyroidism, unspecified; D64.9 Anemia, unspecified; E78.5 Hyperlipidemia, unspecified; Z66 Do not resuscitate; M35.3 Polymyalgia rheumatica; N18.30 Chronic kidney disease, stage 3 unspecified; Z87.891 Personal history of nicotine dependence; Z79.82 Long term (current) use of aspirin; Z95.810 Presence of automatic (implantable) cardiac defibrillator; Z99.81 Dependence on supplemental oxygen; Z79.899 Other long term (current) drug therapy; Z88.2 Allergy status to sulfonamides; Z91.040 Latex allergy status; Z91.013 Allergy to seafood

== ENCOUNTER 2020-05-29 12:07 | Emergency (ER) | payer MEDICARE, MEDICAID ==
[~2020-05-29] VITALS: Ht 160 cm; Wt 78.0 kg
[~2020-05-29 12:07] MED LIST changes: +ALB2.5NEB INH; +AMOX875T PO; +ANOR1AER INH; +ASPI81CH33 PO; +ASPI81TA26 PO; +CALC500T61 PO; +COLA100C5 PO; +D31000TA2 PO; +DOXY100C PO; +FOSA70TA PO; +LEVO88TA3 PO; +PACE200T PO; +PANT40TA29 PO; +vitamin d
[2020-05-29 12:57] LABS: BASO # 0.1 10^3/uL (0.0-0.2); BASO % 0.8 % (0.0-1.0); EOS # 0.1 10^3/uL (0.0-0.5); EOS % 1.1 % (0.0-3.0); HEMATOCRIT 33.6 % (42.0-52.0); HEMOGLOBIN 10.5 g/dl (13.5-17.5); LYMPH # 0.9 10^3/uL (1.5-5.0); LYMPH % 8.8 % (24.0-44.0); MEAN CORPUSCULAR HEMOGLOBIN 28.6 pg (27.0-33.0); MEAN CORPUSCULAR HGB CONC 31.3 g/dl (32.0-36.5); MEAN CORPUSCULAR VOLUME 91.6 fl (80.0-96.0); MONO % 9.7 % (0.0-5.0); NEUTROPHILS # 7.7 10^3/uL (1.5-8.5); NEUTROPHILS % 78.7 % (36.0-66.0); PLATELET COUNT, AUTOMATED 328 10^3/uL (150-450); RED BLOOD COUNT 3.67 10^6/uL (4.30-6.10); WHITE BLOOD COUNT 9.8 10^3/uL (4.0-10.0)
--- NOTE | 2020-05-29 13:27 | REP ---
INDICATION: DYSPNEA/COUGH. COMPARISON: 05/18/2020 TECHNIQUE: Portable FINDINGS: The technique utilized in obtaining the radiograph has magnified the cardiac silhouette and accentuated the interstitial markings. The cardiomediastinal silhouette is unchanged. The lung lazaro are unchanged. No acute patchy parenchymal opacities or pleural effusions have developed. Pacemaker device and leads unchanged. Osseous structures unchanged. IMPRESSION: No change from the prior exam. No acute disease since 05/18/2020 <Electronically signed by Jose Alejandro Jones > 05/29/20 [id number]
[2020-05-29 13:35] LABS: ALBUMIN 3.4 GM/DL (3.2-5.2); ALT/SGPT 21 U/L (12-78); BILIRUBIN,DIRECT < 0.1 MG/DL (0.0-0.2); BILIRUBIN,TOTAL 0.5 MG/DL (0.2-1.0); BLOOD UREA NITROGEN 30 MG/DL (7-18); CALCIUM LEVEL 8.9 MG/DL (8.8-10.2); CARBON DIOXIDE LEVEL 31 MEQ/L (21-32); CHLORIDE LEVEL 101 MEQ/L (98-107); CREATININE FOR GFR 1.36 MG/DL (0.70-1.30); GLOMERULAR FILTRATION RATE 54.1 (>42); GLUCOSE, FASTING 99 MG/DL (70-100); NT-PRO BNP 486 PG/ML (<450); POTASSIUM SERUM 5.2 MEQ/L (3.5-5.1); SODIUM LEVEL 138 MEQ/L (136-145); TOTAL PROTEIN 6.6 GM/DL (6.4-8.2)
[2020-05-29 15:20] VITALS: BP 99/58
--- NOTE | 2020-05-29 19:59 | ECGEPIP ---
[facility] - ED Test Date: 2020-05-29 Pat Name: FIDEL TORRES Department: Room: - Gender: Male Web Page Developer: MICHAEL : 1945 Requested By: NAM VAZQUEZ Order Number: [id number] Reading MD: Mike Salazar Measurements Intervals [place] Rate: 70 P: -23 VA: 123 QRS: 161 QRSD: 146 T: 8 QT: 461 QTc: 500 Interpretive Statements ELECTRONIC ATRIAL PACEMAKER ELECTRONIC VENTRICULAR PACEMAKER SIMILAR TO 05/06/20 Electronically Signed on 05-29-2020 19:58:48 EST by Mike Salazar
== END 2020-05-29 15:35 | disposition home or self-care (01) ==
LOC: M ED 12:07
DX: J96.10 Chronic respiratory failure, unspecified whether with hypoxia or hypercapnia (principal); I10 Essential (primary) hypertension; J44.9 Chronic obstructive pulmonary disease, unspecified; I25.10 Atherosclerotic heart disease of native coronary artery without angina pectoris; E03.9 Hypothyroidism, unspecified; E78.5 Hyperlipidemia, unspecified; N40.0 Benign prostatic hyperplasia without lower urinary tract symptoms; Z95.0 Presence of cardiac pacemaker; Z99.81 Dependence on supplemental oxygen; Z79.899 Other long term (current) drug therapy; Z79.82 Long term (current) use of aspirin; Z79.890 Hormone replacement therapy; Z88.1 Allergy status to other antibiotic agents; Z88.2 Allergy status to sulfonamides; Z91.018 Allergy to other foods; Z91.040 Latex allergy status; F17.210 Nicotine dependence, cigarettes, uncomplicated

== ENCOUNTER → 2020-05-30 | Outpatient (REF) | payer MEDICARE, MEDICAID ==
[2020-05-30 17:25] LABS: CALCIUM LEVEL 9.6 MG/DL (8.8-10.2); CREATININE FOR GFR 1.5 MG/DL (0.70-1.30); GLOMERULAR FILTRATION RATE 48.3 (>42); POTASSIUM SERUM 4.5 MEQ/L (3.5-5.1)
== END ==
LOC: M PLALAB 16:46
PROVIDERS: ATTEND Physician Assistant
DX: E87.5 Hyperkalemia (principal)

== ENCOUNTER → 2020-07-12 | Outpatient (CLI) | payer MEDICAID, MEDICARE | LOC: M LABSMTC 10:08 | PROVIDERS: ATTEND Family Medicine | DX: Z11.52 Encounter for screening for COVID-19 (principal) | CPT/HCPCS: C9803; U0003 ==

== ENCOUNTER 2020-07-18 11:57 | Emergency (ER) | payer MEDICARE ==
[~2020-07-18] VITALS: Ht 157.5 cm; Wt 77.3 kg
[2020-07-18] MEDS ORDERED: ONDANSETRON 4MG/2ML VIAL IV ONE (12:25)
[2020-07-18] MEDS ORDERED: MORPHINE 2 MG/ML 1ML VIAL (J2270) IV ONE (12:25)
[2020-07-18 12:45] LABS: BASO # 0.1 10^3/uL (0.0-0.2); BASO % 0.8 % (0.0-1.0); EOS # 0.3 10^3/uL (0.0-0.5); EOS % 2.8 % (0.0-3.0); HEMATOCRIT 34.4 % (42.0-52.0); HEMOGLOBIN 10.8 g/dl (13.5-17.5); LYMPH # 0.9 10^3/uL (1.5-5.0); LYMPH % 9.8 % (24.0-44.0); MEAN CORPUSCULAR HEMOGLOBIN 28.1 pg (27.0-33.0); MEAN CORPUSCULAR HGB CONC 31.4 g/dl (32.0-36.5); MEAN CORPUSCULAR VOLUME 89.6 fl (80.0-96.0); MONO % 11.6 % (2.0-8.0); NEUTROPHILS # 6.7 10^3/uL (1.5-8.5); NEUTROPHILS % 74.1 % (36.0-66.0); PLATELET COUNT, AUTOMATED 237 10^3/uL (150-450); RED BLOOD COUNT 3.84 10^6/uL (4.30-6.10)
[2020-07-18 12:56] LABS: INR 0.92; PARTIAL THROMBOPLASTIN TIME 29.5 SECONDS (24.2-38.5); PROTHROMBIN TIME 12.6 SECONDS (12.5-14.3)
[2020-07-18] MEDS ORDERED: ISOVUE-370 76% 100ML VIAL As Ordered ONE (13:05)
[2020-07-18 13:18] LABS: ALBUMIN 3.3 GM/DL (3.2-5.2); ALT/SGPT 19 U/L (12-78); BILIRUBIN,DIRECT 0.1 MG/DL (0.0-0.2); BILIRUBIN,TOTAL 0.4 MG/DL (0.2-1.0); CK-MB VALUE MASS 2.5 NG/ML (<3.6); CPK CREATINE PHOSPHOKINASE 99 U/L (39-308); LIPASE 53 U/L (73-393); MB/CK RELATIVE INDEX 2.53 (< OR =4); TOTAL PROTEIN 6.1 GM/DL (6.4-8.2); TROPONIN I < 0.02 NG/ML (< 0.10)
--- NOTE | 2020-07-18 13:46 | REP ---
INDICATION: LLQ pain. COMPARISON: Comparison CT study of the cervical spine is from March 27, 2020.. TECHNIQUE: Helical scanning is acquired and overlapping 2 mm high resolution axial images were generated and reviewed at bone and soft tissue window settings. Coronal and sagittal multiplanar re-formations images are generated. FINDINGS: There is no evidence of cervical spine element fracture. No skull base fracture is seen. Cervical vertebral body heights are preserved. Alignment is normal. Facet joints are normally aligned bilaterally at each cervical level on multiplanar re-formations images. There is no evidence of intraspinal or paraspinal hematoma. No extra vertebral abnormality is seen. There is some vascular calcification again noted. Advanced degenerative spondylosis changes are noted with reversal of normal cervical lordosis. Degenerative disc findings are most pronounced at C5-6 and C6-7 as on the earlier CT study. There are osteoarthritic facet changes bilaterally in the mid cervical spine and a levoconvex curve is noted at the cervicothoracic junction. Degenerative facet changes are most pronounced on the left at C3-4 C4-5 and C5-6. IMPRESSION: Moderate degenerative spondylosis changes as noted on March 27, 2020 prior study. No fracture or other acute cervical spine abnormality.. <Electronically signed by Winston Blanco > 07/18/20 [id number]
--- NOTE | 2020-07-18 14:07 | REP ---
INDICATION: LLQ pain. COMPARISON: None. Abdomen/pelvis CT dated 04/07/2020 with IV and bowel contrast. TECHNIQUE: Abdomen/pelvis CT with IV contrast, without bowel contrast. FINDINGS: There are multiple diverticula in the proximal sigmoid colon. These appear to have increased in number from the prior study. There is mild stranding in the pericolonic fat adjacent to the diverticula, likely artifact from enhancing mesenteric vessels. There is no focal fluid collection to suggest abscess. There is no pneumoperitoneum. There is no bowel distention or obstruction. There is minor atelectasis within the visualized lower lung lazaro mildly improved from the prior study. The hepatic parenchyma is unremarkable except for a left lobe hepatic cyst measuring 16 mm, unchanged. Pancreas and spleen are unremarkable. Adrenals are unremarkable. There are 2 right renal cortical cyst with the upper pole of the lower pole measuring 2.6 and 2.0 cm respectively, unchanged. The left kidney is unremarkable. There is no abdominal aortic aneurysm. There is calcified atheroma throughout the abdominal aorta and iliac and femoral arteries. There is no ascites. Pelvis: There is a Wilkins catheter in the bladder. There is a small volume of air within the bladder, possibly secondary to catheterization. There is no pelvic adenopathy or ascites. There is internal fixation of the right hip. This is unchanged. 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 This is unchanged. There is degenerative disc disease in the lumbar spine and grade 2 compression deformity of the L4 vertebral body. This is unchanged. IMPRESSION: Multiple diverticula in the descending colon and distal proximal sigmoid colon. There is mild pericolonic fat stranding adjacent to the diverticula, likely from enhancing mesenteric vessels. There is no focal fluid collection to suggest abscess. There is no pneumoperitoneum. There is an hepatic cyst and there are 2 right renal cyst, unchanged. No bowel distention or obstruction. Bibasilar atelectasis in the visualized lower lung lazaro. Internal fixation of the right hip. <Electronically signed by David Pantoja > 07/18/20 [id number]
[2020-07-18] MEDS ORDERED: CIPR-249 PO (15:02)
[2020-07-18] MEDS ORDERED: HYDR-3713 PO (15:02)
[2020-07-18] MEDS ORDERED: FLAG500T PO (15:02)
[2020-07-18 15:07] VITALS: BP 112/59
[2020-07-18] MEDS ORDERED: metroNIDAZOLE (FLAGYL) 500MG TABLET PO ONE (15:35)
[2020-07-18] MEDS ORDERED: NORCO, ANEXSIA 5/325MG TABLET (HYDROcodone/ACETAMINOPHEN) PO ONE (15:35)
[2020-07-18] MEDS ORDERED: CIPROFLOXACIN 500MG TABLET PO ONE (16:00)
--- NOTE | 2020-07-18 22:14 | ECGEPIP ---
[facility] - ED Test Date: 2020-07-18 Pat Name: FIDEL TORRES Department: Room: - Gender: Male Floor Director: UCHE : 1945 Requested By: AARON POP Order Number: [id number] Reading MD: Aaron Denny Measurements Intervals [place] Rate: 70 P: 43 PA: QRS: 166 QRSD: 168 T: 25 QT: 490 QTc: 529 Interpretive Statements Ventricular-paced rhythm Biventricular pacemaker detected Similar to tracing done 05-29-20 Electronically Signed on 07-18-2020 22:13:57 EDT by Aaron Denny
== END 2020-07-18 15:48 | disposition other institution (70) ==
LOC: EEVIPCON 11:57 → M ED 11:57
DX: N39.0 Urinary tract infection, site not specified (principal); K57.92 Diverticulitis of intestine, part unspecified, without perforation or abscess without bleeding; I12.9 Hypertensive chronic kidney disease with stage 1 through stage 4 chronic kidney disease, or unspecified chronic kidney disease; N18.30 Chronic kidney disease, stage 3 unspecified; I50.9 Heart failure, unspecified; J44.9 Chronic obstructive pulmonary disease, unspecified; E03.9 Hypothyroidism, unspecified; E78.5 Hyperlipidemia, unspecified; Z79.899 Other long term (current) drug therapy; Z79.82 Long term (current) use of aspirin; Z79.890 Hormone replacement therapy; Z88.1 Allergy status to other antibiotic agents; Z88.2 Allergy status to sulfonamides; Z91.018 Allergy to other foods; Z91.040 Latex allergy status
CPT/HCPCS: 36415; 72125; 74177; 80047; 80076; 81001; 82550; 82553; 83605; 83690; 84484; 85025; 85610; 85730; 86850; 86900; 86901; 87088; 87186; 93005; 93041; 96374; 96375; 99284; J2270; J2405; Q9967

== ENCOUNTER 2020-09-27 21:10 | Emergency (ER) | payer MEDICARE ==
[~2020-09-27] VITALS: Ht 160 cm; Wt 77.3 kg
[~2020-09-27 21:10] MED LIST changes: +CIPR-249 PO; +FLAG500T PO
[2020-09-27] MEDS ORDERED: IBUPROFEN 600MG TAB PO ONE (22:50)
[2020-09-27] MEDS ORDERED: NAPR-837 PO (22:52)
[2020-09-27 23:03] VITALS: BP 132/63
== END 2020-09-27 23:29 | disposition home or self-care (01) ==
LOC: M ED 21:10
DX: S39.012A Strain of muscle, fascia and tendon of lower back, initial encounter (principal); X58.XXXA Exposure to other specified factors, initial encounter; Y92.89 Other specified places as the place of occurrence of the external cause; Y93.89 Activity, other specified; Y99.8 Other external cause status; I10 Essential (primary) hypertension; J44.9 Chronic obstructive pulmonary disease, unspecified; F17.200 Nicotine dependence, unspecified, uncomplicated; Z79.899 Other long term (current) drug therapy; Z79.82 Long term (current) use of aspirin; Z87.442 Personal history of urinary calculi; Z88.2 Allergy status to sulfonamides; Z88.1 Allergy status to other antibiotic agents; Z91.040 Latex allergy status; Z91.013 Allergy to seafood

== ENCOUNTER 2020-11-09 00:29 | Emergency (ER) | payer MEDICARE ==
[~2020-11-09] VITALS: Ht 160 cm; Wt 75.0 kg
[~2020-11-09 00:29] MED LIST changes: +NAPR-837 PO
[2020-11-09 02:00] VITALS: BP 114/68
== END 2020-11-09 02:00 | disposition home or self-care (01) ==
LOC: M ED 00:29
DX: N39.8 Other specified disorders of urinary system (principal); T83.098A Other mechanical complication of other urinary catheter, initial encounter; X58.XXXA Exposure to other specified factors, initial encounter; Y92.89 Other specified places as the place of occurrence of the external cause; I12.9 Hypertensive chronic kidney disease with stage 1 through stage 4 chronic kidney disease, or unspecified chronic kidney disease; N18.30 Chronic kidney disease, stage 3 unspecified; E78.5 Hyperlipidemia, unspecified; I25.10 Atherosclerotic heart disease of native coronary artery without angina pectoris; N40.0 Benign prostatic hyperplasia without lower urinary tract symptoms; Z79.899 Other long term (current) drug therapy; Z79.890 Hormone replacement therapy; Z79.82 Long term (current) use of aspirin; Z88.1 Allergy status to other antibiotic agents; Z88.2 Allergy status to sulfonamides; Z91.018 Allergy to other foods; Z91.040 Latex allergy status; F17.210 Nicotine dependence, cigarettes, uncomplicated

== ENCOUNTER → 2020-11-21 | Outpatient (CLI) | payer MEDICARE ==
[~2020-11-21] MED LIST changes: +DOK1CAP4 PO; -DOK1CAP7 PO; -DOXY100C PO; +DOXY100C3 PO
[2020-11-21 13:34] LABS: HEMATOCRIT 38.7 % (42.0-52.0); HEMOGLOBIN 12.3 g/dl (13.5-17.5); MEAN CORPUSCULAR HEMOGLOBIN 29.2 pg (27.0-33.0); MEAN CORPUSCULAR HGB CONC 31.8 g/dl (32.0-36.5); MEAN CORPUSCULAR VOLUME 91.9 fl (80.0-96.0); PLATELET COUNT, AUTOMATED 258 10^3/uL (150-450); RED BLOOD COUNT 4.21 10^6/uL (4.30-6.10); WHITE BLOOD COUNT 11.5 10^3/uL (4.0-10.0)
[2020-11-21 13:54] LABS: FREE T4 1.42 NG/DL (0.76-1.46)
[2020-11-21 18:09] LABS: ALBUMIN 3.6 GM/DL (3.2-5.2); ALT/SGPT 29 U/L (12-78); BILIRUBIN,TOTAL 0.5 MG/DL (0.2-1.0); BLOOD UREA NITROGEN 26 MG/DL (7-18); CALCIUM LEVEL 9.6 MG/DL (8.8-10.2); CARBON DIOXIDE LEVEL 36 MEQ/L (21-32); CHLORIDE LEVEL 95 MEQ/L (98-107); CREATININE FOR GFR 1.21 MG/DL (0.70-1.30); GLOMERULAR FILTRATION RATE > 60.0 (>42); GLUCOSE, FASTING 86 MG/DL (70-100); POTASSIUM SERUM 5.2 MEQ/L (3.5-5.1); SODIUM LEVEL 136 MEQ/L (136-145); TOTAL PROTEIN 6.8 GM/DL (6.4-8.2)
== END ==
LOC: M PLALAB 11:14
PROVIDERS: ATTEND Physician Assistant
DX: E03.9 Hypothyroidism, unspecified (principal); D64.9 Anemia, unspecified
CPT/HCPCS: 36415; 80053; 84439; 84443; 85027; G0463

== ENCOUNTER → 2021-06-11 | Outpatient (CLI) | payer MEDICARE ==
[~2021-06-11] MED LIST changes: -AMIO200T3 PO; +AMIO200T49 PO; -LEVO500T3 PO; +LEVO500T4 PO
[2021-06-11 12:27] LABS: CALCIUM LEVEL 8.8 MG/DL (8.8-10.2); CREATININE FOR GFR 1.26 MG/DL (0.70-1.30); GLOMERULAR FILTRATION RATE 58.9 (>42); POTASSIUM SERUM 4.3 MEQ/L (3.5-5.1)
[2021-06-11 19:29] LABS: MAGNESIUM LEVEL 2.1 MG/DL (1.7-2.2)
== END ==
LOC: M RAD 11:19
PROVIDERS: ATTEND Physician Assistant
DX: I50.42 Chronic combined systolic (congestive) and diastolic (congestive) heart failure (principal); I49.01 Ventricular fibrillation

== ENCOUNTER → 2021-07-04 | Outpatient (REF) | payer MEDICARE ==
[~2021-07-04] MED LIST changes: -D31000TA2 PO; +VITA100093 PO
[2021-07-04 15:05] LABS: APPEARANCE, URINE HAZY (CLEAR); BACTERIA, URINE AUTO 3+ (NEGATIVE); BILIRUBIN, URINE AUTO NEGATIVE (NEGATIVE); BLOOD, URINE BLOOD NEGATIVE (NEGATIVE); COLOR, URINE YELLOW (YELLOW); GLUCOSE, URINE (UA) AUTO NEGATIVE (NEGATIVE); KETONE, URINE AUTO NEGATIVE (NEGATIVE); LEUKOCYTE ESTERASE, URINE AUTO 2+ (NEGATIVE); NITRITE, URINE AUTO NEGATIVE (NEGATIVE); PROTEIN, URINE AUTO NEGATIVE (NEGATIVE); RBC, URINE AUTO 2 /HPF (0-3); SPECIFIC GRAVITY URINE AUTO 1.009 (1.002-1.035); SQUAMOUS EPITHELIAL CELL UR AU 0 /HPF (0-6); UROBILINOGEN, URINE AUTO 0.2 mg/dL (0.0-2.0); WBC, URINE AUTO 10 /HPF (0-3)
== END ==
LOC: M SFHCPLAZ 14:11
PROVIDERS: ATTEND Nurse Practitioner Family
DX: N39.0 Urinary tract infection, site not specified (principal)

== ENCOUNTER 2021-09-03 19:34 | Emergency (ER) | payer MEDICARE ==
[~2021-09-03] VITALS: Ht 160 cm; Wt 68.6 kg
[2021-09-03 19:34] VITALS: BP 124/57
== END 2021-09-03 21:19 | disposition left against medical advice (07) ==
LOC: M ED 19:34
DX: Z53.21 Procedure and treatment not carried out due to patient leaving prior to being seen by health care provider (principal)

== ENCOUNTER 2021-09-04 15:32 | Emergency (ER) | payer MEDICARE ==
[~2021-09-04] VITALS: Ht 160 cm; Wt 68.6 kg
[2021-09-04 15:33] VITALS: BP 119/63
[2021-09-04 23:01] LABS: AMORPHOUS SEDIMENT SMALL (NEGATIVE); APPEARANCE, URINE CLOUDY (CLEAR); BACTERIA, URINE AUTO 3+ (NEGATIVE); BILIRUBIN, URINE AUTO NEGATIVE (NEGATIVE); BLOOD, URINE BLOOD 3+ (NEGATIVE); COLOR, URINE AMBER (YELLOW); GLUCOSE, URINE (UA) AUTO NEGATIVE (NEGATIVE); KETONE, URINE AUTO NEGATIVE (NEGATIVE); LEUKOCYTE ESTERASE, URINE AUTO 2+ (NEGATIVE); NITRITE, URINE AUTO NEGATIVE (NEGATIVE); PROTEIN, URINE AUTO 2+ mg/dL (NEGATIVE); RBC, URINE AUTO TNTC /HPF (0-3); SPECIFIC GRAVITY URINE AUTO 1.011 (1.002-1.035); SQUAMOUS EPITHELIAL CELL UR AU 0 /HPF (0-6); WBC, URINE AUTO 47 /HPF (0-3)
[2021-09-05 02:09] LABS: BASO # 0.1 10^3/uL (0.0-0.2); EOS # 0.2 10^3/uL (0.0-0.5); EOS % 2.3 % (0.0-3.0); HEMATOCRIT 32.8 % (42.0-52.0); HEMOGLOBIN 10.5 g/dl (13.5-17.5); LYMPH # 1.2 10^3/uL (1.5-5.0); LYMPH % 12.9 % (24.0-44.0); MEAN CORPUSCULAR HEMOGLOBIN 29.2 pg (27.0-33.0); MEAN CORPUSCULAR VOLUME 91.4 fl (80.0-96.0); MONO % 11.2 % (2.0-8.0); NEUTROPHILS # 6.6 10^3/uL (1.5-8.5); NEUTROPHILS % 71.5 % (36.0-66.0); PLATELET COUNT, AUTOMATED 226 10^3/uL (150-450); RED BLOOD COUNT 3.59 10^6/uL (4.30-6.10); WHITE BLOOD COUNT 9.3 10^3/uL (4.0-10.0)
[2021-09-05 02:37] LABS: BLOOD UREA NITROGEN 26 MG/DL (7-18); CALCIUM LEVEL 8.6 MG/DL (8.8-10.2); CARBON DIOXIDE LEVEL 34 MEQ/L (21-32); CHLORIDE LEVEL 101 MEQ/L (98-107); CREATININE FOR GFR 0.95 MG/DL (0.70-1.30); GLOMERULAR FILTRATION RATE > 60.0 (>42); GLUCOSE, FASTING 86 MG/DL (70-100); POTASSIUM SERUM 3.8 MEQ/L (3.5-5.1); SODIUM LEVEL 141 MEQ/L (136-145)
[2021-09-05] MEDS ORDERED: LevoFLOXacin 750 MG TABLET PO ONE (03:00)
[2021-09-05] MEDS ORDERED: LEVO750T13 PO (03:02)
== END 2021-09-05 05:54 | disposition home or self-care (01) ==
LOC: M ED 15:32
DX: N39.0 Urinary tract infection, site not specified (principal); R31.9 Hematuria, unspecified; T83.091A Other mechanical complication of indwelling urethral catheter, initial encounter; I25.10 Atherosclerotic heart disease of native coronary artery without angina pectoris; I50.9 Heart failure, unspecified; J44.9 Chronic obstructive pulmonary disease, unspecified; N18.9 Chronic kidney disease, unspecified; K21.9 Gastro-esophageal reflux disease without esophagitis; E03.9 Hypothyroidism, unspecified; Z95.0 Presence of cardiac pacemaker; Z88.2 Allergy status to sulfonamides; Z91.013 Allergy to seafood; Z91.040 Latex allergy status; Z79.51 Long term (current) use of inhaled steroids; Z79.899 Other long term (current) drug therapy; Z79.890 Hormone replacement therapy

== ENCOUNTER 2021-09-16 10:56 | Inpatient (IN) | payer MEDICAID, MEDICARE ==
[~2021-09-16] VITALS: Ht 160 cm; Wt 68.2 kg
[~2021-09-16 10:56] MED LIST changes: +LEVO750T13 PO
[2021-09-16 12:08] LABS: BASO # 0.1 10^3/uL (0.0-0.2); BASO % 0.8 % (0.0-1.0); EOS # 0.1 10^3/uL (0.0-0.5); EOS % 0.6 % (0.0-3.0); HEMATOCRIT 35.6 % (42.0-52.0); HEMOGLOBIN 11.1 g/dl (13.5-17.5); LYMPH # 1.1 10^3/uL (1.5-5.0); LYMPH % 9.7 % (24.0-44.0); MEAN CORPUSCULAR HEMOGLOBIN 29.3 pg (27.0-33.0); MEAN CORPUSCULAR HGB CONC 31.2 g/dl (32.0-36.5); MEAN CORPUSCULAR VOLUME 93.9 fl (80.0-96.0); MONO # 1.1 10^3/uL (0.0-0.8); MONO % 9.7 % (2.0-8.0); NEUTROPHILS # 8.4 10^3/uL (1.5-8.5); NEUTROPHILS % 78.4 % (36.0-66.0); PLATELET COUNT, AUTOMATED 270 10^3/uL (150-450); RED BLOOD COUNT 3.79 10^6/uL (4.30-6.10); WHITE BLOOD COUNT 10.8 10^3/uL (4.0-10.0)
[2021-09-16] MEDS ORDERED: COMBIVENT RESPIMAT 100-20MCG INHALER 4GM INH STA (12:13)
[2021-09-16] MEDS ORDERED: FUROSEMIDE 40MG/4ML VIAL (J1940) IV ONE (12:15)
[2021-09-16 12:29] LABS: ALBUMIN 3.7 GM/DL (3.2-5.2); ALT/SGPT 19 U/L (12-78); BILIRUBIN,DIRECT 0.3 MG/DL (0.0-0.2); BILIRUBIN,TOTAL 0.6 MG/DL (0.2-1.0); BLOOD UREA NITROGEN 24 MG/DL (7-18); CARBON DIOXIDE LEVEL 39 MEQ/L (21-32); CHLORIDE LEVEL 97 MEQ/L (98-107); CREATININE FOR GFR 1.18 MG/DL (0.70-1.30); GLOMERULAR FILTRATION RATE > 60.0 (>42); GLUCOSE, FASTING 77 MG/DL (70-100); POTASSIUM SERUM 4.7 MEQ/L (3.5-5.1); SODIUM LEVEL 138 MEQ/L (136-145); TOTAL PROTEIN 6.7 GM/DL (6.4-8.2)
[2021-09-16] MEDS ORDERED: LevoFLOXacin IV 750 MG in IV 1 EA IV ONE (13:35)
[2021-09-16] MEDS ORDERED: methylPREDNISolone 125MG 2ML VIAL IV ONE (14:10)
[2021-09-16] MEDS ORDERED: IPRATROPIUM 0.5MG/ALBUTEROL 2.5MG INH SOL UD 3ML (DUONEB) NEB PRN (14:25)
[2021-09-16 14:50] LABS: ABG BASE EXCESS 8.1 (-2.0-2.0); ABG HCO3 34.7 MEQ/L (22.0-26.0); ABG O2 SATURATION 90.4 % (95.0-99.0); ABG PARTIAL PRESSURE CO2 58.4 mmHg (35.0-45.0); ABG STANDARD HCO3 31.8 MEQ/L (22.0-26.0); ABG TOTAL CO2 36.5 MEQ/L (23.0-31.0); ABG pH (ARTERIAL) 7.392 UNITS (7.350-7.450)
[2021-09-16] MEDS ORDERED: ADVA230A INH (15:39)
[2021-09-16] MEDS ORDERED: SPIR1CAP INH (15:39)
[2021-09-16] MEDS ORDERED: FLON1SPR NARES (15:39)
[2021-09-16] MEDS ORDERED: HYDR-3713 PO (15:39)
[2021-09-16] MEDS ORDERED: LEVO100T54 PO (15:39)
[2021-09-16] MEDS ORDERED: SUCR1TAB56 PO (15:39)
[2021-09-16] MEDS ORDERED: NEXI40CA PO (15:39)
[2021-09-16] MEDS ORDERED: HOME MED LIST COMPLETE! XX SCH (15:40)
[2021-09-16] MEDS: IPRATROPIUM 0.5MG/ALBUTEROL 2.5MG INH SOL UD 3ML (DUONEB) NEB SCH ×2 (15:56→20:30)
[2021-09-16] MEDS: DOXYCYCLINE HYCLATE 100MG TABLET PO SCH ×2 (16:01→21:38)
[2021-09-16] MEDS ORDERED: SPIRONOLACTONE 25 MG TAB PO SCH (17:00)
[2021-09-16] MEDS ORDERED: FLUTICASONE PROP 0.05% NASAL SPRAY 16 GM (FLONASE) NARES PRN (17:35)
[2021-09-16] MEDS ORDERED: NORCO, ANEXSIA 5/325MG TABLET (HYDROcodone/ACETAMINOPHEN) PO PRN (17:35)
[2021-09-16] MEDS: SUCRALFATE 1 GM TAB PO SCH (18:00)
[2021-09-16 19:00] VITALS: BP 98/61
[2021-09-16] MEDS ORDERED: guaiFENesin ER 600 MG TAB PO ONE (19:00)
[2021-09-16] MEDS ORDERED: CETIRIZINE (ZyrTEC) 10 MG TAB PO ONE (19:00)
[2021-09-16] MEDS: ASPIRIN 81MG ENTERIC TABLET PO SCH (19:07)
[2021-09-16] MEDS: AMIODARONE 200 MG TAB (PACERONE) PO SCH (19:07)
[2021-09-16] MEDS: TORSEMIDE 20 MG TAB PO SCH (19:08)
[2021-09-16] MEDS: PANTOPRAZOLE 40MG TAB (PROTONIX) PO SCH (19:10)
[2021-09-16] MEDS: ADVAIR HFA 230/21MCG INHALER INH SCH (20:30)
[2021-09-16] MEDS ORDERED: ATORVASTATIN 20 MG TAB PO SCH (21:00)
[2021-09-16] MEDS ORDERED: ENOXAPARIN 40MG/0.4ML SYRINGE (J1650 PER 10MG) SC SCH (21:00)
[2021-09-16 21:38] VITALS: BP 110/67
[2021-09-16] MEDS: methylPREDNISolone 125MG 2ML VIAL IV SCH (21:38)
[2021-09-16] MEDS: DOCUSATE SODIUM 100MG CAPSULE PO SCH (21:39)
[2021-09-17] MEDS: IPRATROPIUM 0.5MG/ALBUTEROL 2.5MG INH SOL UD 3ML (DUONEB) NEB SCH ×4 (00:51→11:12)
[2021-09-17] MEDS: methylPREDNISolone 125MG 2ML VIAL IV SCH ×3 (02:07→14:43)
[2021-09-17 06:00] VITALS: BP 110/66
[2021-09-17] MEDS ORDERED: LEVOTHYROXINE 100MCG TABLET (0.1MG) PO SCH (06:00)
[2021-09-17 06:45] LABS: BASO % 0.1 % (0.0-1.0); HEMATOCRIT 34.9 % (42.0-52.0); HEMOGLOBIN 11.2 g/dl (13.5-17.5); LYMPH # 0.4 10^3/uL (1.5-5.0); LYMPH % 5.7 % (24.0-44.0); MEAN CORPUSCULAR HEMOGLOBIN 28.8 pg (27.0-33.0); MEAN CORPUSCULAR HGB CONC 32.1 g/dl (32.0-36.5); MEAN CORPUSCULAR VOLUME 89.7 fl (80.0-96.0); MONO # 0.1 10^3/uL (0.0-0.8); MONO % 1.9 % (2.0-8.0); NEUTROPHILS # 6.1 10^3/uL (1.5-8.5); NEUTROPHILS % 91.4 % (36.0-66.0); PLATELET COUNT, AUTOMATED 275 10^3/uL (150-450); RED BLOOD COUNT 3.89 10^6/uL (4.30-6.10); WHITE BLOOD COUNT 6.7 10^3/uL (4.0-10.0)
[2021-09-17 07:09] LABS: CALCIUM LEVEL 9.1 MG/DL (8.8-10.2); CREATININE FOR GFR 1.3 MG/DL (0.70-1.30); GLOMERULAR FILTRATION RATE 56.8 (>42); POTASSIUM SERUM 4.3 MEQ/L (3.5-5.1)
[2021-09-17] MEDS: ADVAIR HFA 230/21MCG INHALER INH SCH (07:14)
[2021-09-17] MEDS ORDERED: TIOTROPIUM INHALER/CAPSULE (SPIRIVA) INH SCH (08:00)
[2021-09-17] MEDS: PANTOPRAZOLE 40MG TAB (PROTONIX) PO SCH (08:33)
[2021-09-17] MEDS: DOCUSATE SODIUM 100MG CAPSULE PO SCH (08:33)
[2021-09-17] MEDS: DOXYCYCLINE HYCLATE 100MG TABLET PO SCH (08:33)
[2021-09-17] MEDS: ASPIRIN 81MG ENTERIC TABLET PO SCH (08:33)
[2021-09-17] MEDS: AMIODARONE 200 MG TAB (PACERONE) PO SCH (08:33)
[2021-09-17] MEDS: SUCRALFATE 1 GM TAB PO SCH (08:33)
[2021-09-17] MEDS: TORSEMIDE 20 MG TAB PO SCH (08:39)
[2021-09-17] MEDS ORDERED: CETIRIZINE (ZyrTEC) 10 MG TAB PO SCH (09:00)
[2021-09-17] MEDS ORDERED: PNEUMOCOCCAL VACCINE 0.5ML SYRINGE (PNEUMOVAX 23) IM ONE (09:00)
[2021-09-17] MEDS ORDERED: guaiFENesin ER 600 MG TAB PO SCH (09:00)
[2021-09-17] MEDS ORDERED: FINASTERIDE 5MG TAB PO SCH (09:00)
[2021-09-17] MEDS ORDERED: PRED10TA2 PO (10:48)
[2021-09-17] MEDS ORDERED: DOXY-350 PO (10:48)
[2021-09-17 14:00] VITALS: BP 115/58
== END 2021-09-17 15:43 | disposition left against medical advice (07) | DRG 191 ==
LOC: M ED 10:56 → M ED INP 14:24 → ENRESERV 16:32 → M MSPAV 17:34
PROVIDERS: ADMIT General Practice; ATTEND General Practice
DX: J44.1 Chronic obstructive pulmonary disease with (acute) exacerbation (principal); J96.11 Chronic respiratory failure with hypoxia; I50.42 Chronic combined systolic (congestive) and diastolic (congestive) heart failure; I13.0 Hypertensive heart and chronic kidney disease with heart failure and stage 1 through stage 4 chronic kidney disease, or unspecified chronic kidney disease; Z99.81 Dependence on supplemental oxygen; I27.81 Cor pulmonale (chronic); Z95.810 Presence of automatic (implantable) cardiac defibrillator; N40.1 Benign prostatic hyperplasia with lower urinary tract symptoms; Z96.0 Presence of urogenital implants; N18.30 Chronic kidney disease, stage 3 unspecified; D64.9 Anemia, unspecified; I25.10 Atherosclerotic heart disease of native coronary artery without angina pectoris; I25.2 Old myocardial infarction; K21.9 Gastro-esophageal reflux disease without esophagitis; E03.9 Hypothyroidism, unspecified; M35.3 Polymyalgia rheumatica; E78.5 Hyperlipidemia, unspecified; F03.90 Unspecified dementia, unspecified severity, without behavioral disturbance, psychotic disturbance, mood disturbance, and anxiety; M81.0 Age-related osteoporosis without current pathological fracture; M54.9 Dorsalgia, unspecified; F41.9 Anxiety disorder, unspecified; Z96.641 Presence of right artificial hip joint; Z88.2 Allergy status to sulfonamides; Z91.040 Latex allergy status; Z91.013 Allergy to seafood; F17.210 Nicotine dependence, cigarettes, uncomplicated; Z74.09 Other reduced mobility; Z66 Do not resuscitate; J44.0 Chronic obstructive pulmonary disease with (acute) lower respiratory infection; Z20.822 Contact with and (suspected) exposure to COVID-19; R91.8 Other nonspecific abnormal finding of lung field; Z91.19 Patient's noncompliance with other medical treatment and regimen; B34.8 Other viral infections of unspecified site

== ENCOUNTER → 2021-11-15 | Outpatient (CLI) | payer MEDICARE, MEDICAID ==
[~2021-11-15] MED LIST changes: +ALBU2.5V10 INH; -ALBU83IN INH; +CLEO300C2 PO; +DOXY-350 PO; +FLON1SPR NARES; +LEVO100T54 PO; +LEVO1TAB39 PO; +LEVO1TAB40 PO; -LEVO500T4 PO; -LEVO750T13 PO
[2021-11-15 18:01] LABS: BASO # 0.1 10^3/uL (0.0-0.2); BASO % 1.2 % (0.0-1.0); EOS # 0.1 10^3/uL (0.0-0.5); HEMATOCRIT 34.8 % (42.0-52.0); HEMOGLOBIN 11.1 g/dl (13.5-17.5); LYMPH # 1.3 10^3/uL (1.5-5.0); LYMPH % 11.6 % (24.0-44.0); MEAN CORPUSCULAR HEMOGLOBIN 29.2 pg (27.0-33.0); MEAN CORPUSCULAR HGB CONC 31.9 g/dl (32.0-36.5); MEAN CORPUSCULAR VOLUME 91.6 fl (80.0-96.0); MONO # 1.3 10^3/uL (0.0-0.8); MONO % 11.7 % (2.0-8.0); NEUTROPHILS # 8.1 10^3/uL (1.5-8.5); NEUTROPHILS % 73.2 % (36.0-66.0); PLATELET COUNT, AUTOMATED 335 10^3/uL (150-450); WHITE BLOOD COUNT 11.1 10^3/uL (4.0-10.0)
[2021-11-15 19:40] LABS: C REACTIVE PROTEIN QUANTITATIV < 0.30 MG/DL (0.00-0.30); CHOLESTEROL LEVEL 98 MG/DL (<200); CHOLESTEROL RISK RATIO 1.361 (<5); FREE T4 1.39 NG/DL (0.76-1.46); HDL CHOLESTEROL 72 MG/DL (>40); LDL CHOLESTEROL 16 MG/DL (<100); MAGNESIUM LEVEL 2.4 MG/DL (1.8-2.4); NON-HDL-C 26 MG/DL; NT-PRO BNP 527 PG/ML (<450); TRIGLYCERIDES LEVEL 49 MG/DL (<150)
[2021-11-15 20:00] LABS: VITAMIN B12 LEVEL 387 PG/ML (247-911)
[2021-11-15 20:01] LABS: FOLATE 9.6 NG/ML (>5.4)
[2021-11-15 21:40] LABS: HEMOGLOBIN A1c 5.4 %
== END ==
LOC: M PLALAB 14:34
PROVIDERS: ATTEND Nurse Practitioner Family
DX: R60.0 Localized edema (principal); E03.9 Hypothyroidism, unspecified; D64.9 Anemia, unspecified; E78.2 Mixed hyperlipidemia; I11.0 Hypertensive heart disease with heart failure; F03.90 Unspecified dementia, unspecified severity, without behavioral disturbance, psychotic disturbance, mood disturbance, and anxiety; Z79.899 Other long term (current) drug therapy

== ENCOUNTER 2021-11-24 15:38 | Emergency (ER) | payer MEDICARE, MEDICAID ==
[~2021-11-24] VITALS: Ht 175.3 cm; Wt 69.5 kg
[~2021-11-24 15:38] MED LIST changes: -CLEO300C2 PO; -LEVO1TAB39 PO; -LEVO1TAB40 PO; +LEVO500T4 PO; +LEVO750T13 PO
[2021-11-24 15:42] VITALS: BP 110/56
[2021-11-24 20:13] LABS: BASO # 0.1 10^3/uL (0.0-0.2); BASO % 0.8 % (0.0-1.0); EOS # 0.1 10^3/uL (0.0-0.5); EOS % 1.1 % (0.0-3.0); HEMATOCRIT 34.1 % (42.0-52.0); HEMOGLOBIN 10.9 g/dl (13.5-17.5); LYMPH # 1.2 10^3/uL (1.5-5.0); LYMPH % 11.4 % (24.0-44.0); MEAN CORPUSCULAR VOLUME 90.7 fl (80.0-96.0); MONO # 1.2 10^3/uL (0.0-0.8); MONO % 11.3 % (2.0-8.0); NEUTROPHILS # 7.7 10^3/uL (1.5-8.5); NEUTROPHILS % 74.7 % (36.0-66.0); PLATELET COUNT, AUTOMATED 321 10^3/uL (150-450); RED BLOOD COUNT 3.76 10^6/uL (4.30-6.10); WHITE BLOOD COUNT 10.3 10^3/uL (4.0-10.0)
[2021-11-24 20:31] LABS: ERYTHROCYTE SEDIMENTATION RATE 40 mm/hr (0-20)
[2021-11-24 20:57] LABS: ALBUMIN 3.3 GM/DL (3.2-5.2); ALT/SGPT 18 U/L (12-78); BILIRUBIN,DIRECT < 0.1 MG/DL (0.0-0.2); BILIRUBIN,TOTAL 0.5 MG/DL (0.2-1.0); BLOOD UREA NITROGEN 26 MG/DL (7-18); C REACTIVE PROTEIN QUANTITATIV 0.64 MG/DL (0.00-0.30); CALCIUM LEVEL 9.1 MG/DL (8.8-10.2); CARBON DIOXIDE LEVEL 31 MEQ/L (21-32); CHLORIDE LEVEL 97 MEQ/L (98-107); CREATININE FOR GFR 1.21 MG/DL (0.70-1.30); GLOMERULAR FILTRATION RATE > 60.0 (>42); GLUCOSE, FASTING 71 MG/DL (70-100); NT-PRO BNP 640 PG/ML (<450); POTASSIUM SERUM 4.8 MEQ/L (3.5-5.1); SODIUM LEVEL 137 MEQ/L (136-145); TOTAL PROTEIN 6.8 GM/DL (6.4-8.2)
[2021-11-24 21:14] LABS: INR 0.97; PROTHROMBIN TIME 13.3 SECONDS (12.7-14.5)
[2021-11-24 21:15] LABS: PARTIAL THROMBOPLASTIN TIME 32.1 SECONDS (25.9-37.0)
[2021-11-24] MEDS ORDERED: ceFAZolin SOD 2 GM in IV 1 EA IV ONE (22:05)
[2021-11-24] MEDS ORDERED: CLEO300C2 PO (22:57)
== END 2021-11-24 23:11 | disposition home or self-care (01) ==
LOC: M ED 15:38
DX: L03.115 Cellulitis of right lower limb (principal); I25.2 Old myocardial infarction; I13.0 Hypertensive heart and chronic kidney disease with heart failure and stage 1 through stage 4 chronic kidney disease, or unspecified chronic kidney disease; I50.9 Heart failure, unspecified; E78.5 Hyperlipidemia, unspecified; R91.1 Solitary pulmonary nodule; R51.9 Headache, unspecified; F03.90 Unspecified dementia, unspecified severity, without behavioral disturbance, psychotic disturbance, mood disturbance, and anxiety; K21.9 Gastro-esophageal reflux disease without esophagitis; K22.70 Barrett's esophagus without dysplasia; E03.9 Hypothyroidism, unspecified; N40.0 Benign prostatic hyperplasia without lower urinary tract symptoms; F17.210 Nicotine dependence, cigarettes, uncomplicated; Z95.0 Presence of cardiac pacemaker; Z88.2 Allergy status to sulfonamides; Z91.013 Allergy to seafood; Z91.040 Latex allergy status; Z79.82 Long term (current) use of aspirin; Z79.890 Hormone replacement therapy; Z79.899 Other long term (current) drug therapy
CPT/HCPCS: 71046; 80048; 80076; 83605; 83880; 85025; 85610; 85652; 85730; 86140; 87040; 93005; 93971; 96365; 99284; J0690

== ENCOUNTER 2021-12-15 10:53 | Inpatient (IN) | payer MEDICARE, MEDICAID ==
[~2021-12-15] VITALS: Ht 160 cm; Wt 67.4 kg
[~2021-12-15 10:53] MED LIST changes: +CLEO300C2 PO; +LEVO1TAB39 PO; +LEVO1TAB40 PO; -LEVO500T4 PO; -LEVO750T13 PO
[2021-12-15] MEDS ORDERED: IPRATROPIUM 0.5MG/ALBUTEROL 2.5MG INH SOL UD 3ML (DUONEB) NEB ONE (11:45)
[2021-12-15] MEDS ORDERED: methylPREDNISolone 125MG 2ML VIAL IV ONE (11:45)
[2021-12-15] MEDS ORDERED: ALBUTEROL SULFATE 2.5 MG/0.5 ML INH NEB SOLN INH ONE (11:45)
[2021-12-15 11:52] LABS: BASO # 0.1 10^3/uL (0.0-0.2); BASO % 0.9 % (0.0-1.0); EOS # 0.1 10^3/uL (0.0-0.5); EOS % 0.9 % (0.0-3.0); HEMATOCRIT 32.3 % (42.0-52.0); HEMOGLOBIN 10.1 g/dl (13.5-17.5); LYMPH # 1.2 10^3/uL (1.5-5.0); LYMPH % 11.1 % (24.0-44.0); MEAN CORPUSCULAR HEMOGLOBIN 29.2 pg (27.0-33.0); MEAN CORPUSCULAR HGB CONC 31.3 g/dl (32.0-36.5); MEAN CORPUSCULAR VOLUME 93.4 fl (80.0-96.0); MONO # 1.3 10^3/uL (0.0-0.8); MONO % 12.2 % (2.0-8.0); NEUTROPHILS % 73.9 % (36.0-66.0); PLATELET COUNT, AUTOMATED 364 10^3/uL (150-450); RED BLOOD COUNT 3.46 10^6/uL (4.30-6.10); WHITE BLOOD COUNT 10.9 10^3/uL (4.0-10.0)
[2021-12-15] MEDS ORDERED: ISOVUE-370 76% 100ML VIAL As Ordered ONE (11:57)
[2021-12-15 12:15] LABS: INR 0.93; PROTHROMBIN TIME 12.9 SECONDS (12.7-14.5)
[2021-12-15 12:16] LABS: PARTIAL THROMBOPLASTIN TIME 35.2 SECONDS (25.9-37.0)
[2021-12-15 12:25] LABS: RSV AMPLIFICATION NEGATIVE (NEGATIVE)
[2021-12-15 12:36] LABS: ALBUMIN 3.1 GM/DL (3.2-5.2); ALT/SGPT 15 U/L (12-78); BILIRUBIN,DIRECT 0.3 MG/DL (0.0-0.2); BILIRUBIN,TOTAL 0.4 MG/DL (0.2-1.0); BLOOD UREA NITROGEN 19 MG/DL (7-18); C REACTIVE PROTEIN QUANTITATIV 0.79 MG/DL (0.00-0.30); CALCIUM LEVEL 8.8 MG/DL (8.8-10.2); CARBON DIOXIDE LEVEL 34 MEQ/L (21-32); CHLORIDE LEVEL 96 MEQ/L (98-107); CREATININE FOR GFR 1.15 MG/DL (0.70-1.30); FREE T4 1.32 NG/DL (0.76-1.46); GLOMERULAR FILTRATION RATE > 60.0 (>42); GLUCOSE, FASTING 79 MG/DL (70-100); LIPASE 67 U/L (73-393); NT-PRO BNP 586 PG/ML (<450); POTASSIUM SERUM 4.5 MEQ/L (3.5-5.1); SODIUM LEVEL 134 MEQ/L (136-145); TOTAL PROTEIN 6.3 GM/DL (6.4-8.2)
[2021-12-15] MEDS ORDERED: VANCOMYCIN HCL 1,500 MG in IV FLUID PLACE HOLDER 1 EA IV ONE (12:50)
[2021-12-15] MEDS ORDERED: cefTRIAXone SOD 2 GM in D5W MINI-BAG PLUS 50 ML IV ONE (12:50)
[2021-12-15] MEDS ORDERED: AZITHROMYCIN INJ 500 MG, VIAL MATE ADAPTER 1 EACH in NS 250 ML IV ONE (12:50)
[2021-12-15] MEDS ORDERED: VANCOMYCIN HCL 750 MG, VIAL MATE ADAPTER 1 EACH in D5W 250 ML IV ONE ×2 (14:00→15:00)
[2021-12-15] MEDS ORDERED: SYNT112T2 PO (14:41)
[2021-12-15] MEDS ORDERED: HOME MED LIST COMPLETE! XX SCH (14:45)
[2021-12-15] MEDS ORDERED: ACETAMINOPHEN TAB 650MG DOSE (2X325MG) PO PRN (15:55)
[2021-12-15] MEDS ORDERED: FLUTICASONE PROP 0.05% NASAL SPRAY 16 GM (FLONASE) NARES PRN (16:00)
[2021-12-15] MEDS ORDERED: ALBUTEROL 90 MCG/ACT 8GM HFA INHALER INH PRN (16:00)
[2021-12-15] MEDS ORDERED: IPRATROPIUM 0.5MG/ALBUTEROL 2.5MG INH SOL UD 3ML (DUONEB) NEB PRN (16:05)
[2021-12-15] MEDS ORDERED: VANCOMYCIN HCL 1,000 MG, VIAL MATE ADAPTER 1 EACH in NS 250 ML IV SCH (16:20)
[2021-12-15 19:59] VITALS: BP 125/60
[2021-12-15] MEDS: IPRATROPIUM 0.5MG/ALBUTEROL 2.5MG INH SOL UD 3ML (DUONEB) NEB SCH ×2 (20:00→23:29)
[2021-12-15] MEDS: ATORVASTATIN 20 MG TAB PO SCH (20:22)
[2021-12-15] MEDS: TORSEMIDE 20 MG TAB PO SCH (20:22)
[2021-12-15] MEDS: SPIRONOLACTONE 25 MG TAB PO SCH (20:22)
[2021-12-15] MEDS: methylPREDNISolone 40MG 1ML VIAL IV SCH (20:22)
[2021-12-15] MEDS: HEPARIN SOD (PORCINE) 5000UNITS/ML 1ML VIAL/SYRINGE SC SCH (20:23)
[2021-12-15] MEDS: ADVAIR HFA 230/21MCG INHALER INH SCH (20:51)
[2021-12-16] MEDS: PIPERACILLIN/TAZOBACTAM SOD 4.5 GM in D5W MINI-BAG PLUS 50 ML IV SCH ×4 (00:10→18:47)
[2021-12-16 02:00] VITALS: BP 117/58
[2021-12-16] MEDS: IPRATROPIUM 0.5MG/ALBUTEROL 2.5MG INH SOL UD 3ML (DUONEB) NEB SCH ×5 (03:26→19:24)
[2021-12-16] MEDS ORDERED: VANCOMYCIN HCL 500 MG in D5W MINI-BAG PLUS 100 ML IV SCH (04:00)
[2021-12-16] MEDS: methylPREDNISolone 40MG 1ML VIAL IV SCH ×3 (04:25→19:56)
[2021-12-16 06:00] VITALS: BP 113/58
[2021-12-16 06:27] LABS: HEMATOCRIT 31.5 % (42.0-52.0); HEMOGLOBIN 9.8 g/dl (13.5-17.5); MEAN CORPUSCULAR HEMOGLOBIN 28.9 pg (27.0-33.0); MEAN CORPUSCULAR HGB CONC 31.1 g/dl (32.0-36.5); MEAN CORPUSCULAR VOLUME 92.9 fl (80.0-96.0); PLATELET COUNT, AUTOMATED 363 10^3/uL (150-450); RED BLOOD COUNT 3.39 10^6/uL (4.30-6.10)
[2021-12-16] MEDS: LEVOTHYROXINE 112MCG TABLET (0.112MG) PO SCH (06:35)
[2021-12-16 07:01] LABS: ALBUMIN 2.6 GM/DL (3.2-5.2); ALT/SGPT 12 U/L (12-78); BILIRUBIN,TOTAL 0.3 MG/DL (0.2-1.0); BLOOD UREA NITROGEN 22 MG/DL (7-18); CALCIUM LEVEL 8.5 MG/DL (8.8-10.2); CARBON DIOXIDE LEVEL 29 MEQ/L (21-32); CHLORIDE LEVEL 99 MEQ/L (98-107); CREATININE FOR GFR 1.09 MG/DL (0.70-1.30); GLOMERULAR FILTRATION RATE > 60.0 (>42); GLUCOSE, FASTING 140 MG/DL (70-100); MAGNESIUM LEVEL 2.3 MG/DL (1.8-2.4); POTASSIUM SERUM 4.1 MEQ/L (3.5-5.1); SODIUM LEVEL 135 MEQ/L (136-145); TOTAL PROTEIN 5.9 GM/DL (6.4-8.2)
[2021-12-16] MEDS: TIOTROPIUM INHALER/CAPSULE (SPIRIVA) INH SCH (07:19)
[2021-12-16] MEDS: ADVAIR HFA 230/21MCG INHALER INH SCH ×2 (07:19→19:23)
[2021-12-16 07:22] VITALS: O2SAT 95
[2021-12-16] MEDS: ASPIRIN 81MG ENTERIC TABLET PO SCH (08:56)
[2021-12-16] MEDS: AMIODARONE 200 MG TAB (PACERONE) PO SCH (08:56)
[2021-12-16] MEDS: HEPARIN SOD (PORCINE) 5000UNITS/ML 1ML VIAL/SYRINGE SC SCH ×2 (08:56→19:57)
[2021-12-16] MEDS: FINASTERIDE 5MG TAB PO SCH (08:56)
[2021-12-16] MEDS: TORSEMIDE 20 MG TAB PO SCH ×2 (08:57→19:58)
[2021-12-16] MEDS: PANTOPRAZOLE 40MG TAB (PROTONIX) PO SCH (08:57)
[2021-12-16 10:00] VITALS: BP 121/85
[2021-12-16] MEDS: DIMETHICONE 2% OINTMENT(VANICREAM) 70GM TUBE TOP SCH ×2 (12:17→19:57)
[2021-12-16 14:00] VITALS: BP 117/56
[2021-12-16] MEDS ORDERED: VANCOMYCIN HCL 1,000 MG, VIAL MATE ADAPTER 1 EACH in D5W 250 ML IV SCH (18:00)
[2021-12-16] MEDS: VANCOMYCIN HCL 1,000 MG, VIAL MATE ADAPTER 1 EACH in D5W 250 ML IV SCH (19:57)
[2021-12-16] MEDS: ATORVASTATIN 20 MG TAB PO SCH (19:58)
[2021-12-16] MEDS: SPIRONOLACTONE 25 MG TAB PO SCH (19:58)
[2021-12-16 22:00] VITALS: BP 118/58
[2021-12-17] MEDS: IPRATROPIUM 0.5MG/ALBUTEROL 2.5MG INH SOL UD 3ML (DUONEB) NEB SCH ×7 (00:19→23:40)
[2021-12-17] MEDS: PIPERACILLIN/TAZOBACTAM SOD 4.5 GM in D5W MINI-BAG PLUS 50 ML IV SCH ×4 (00:33→18:08)
[2021-12-17] MEDS: methylPREDNISolone 40MG 1ML VIAL IV SCH (04:31)
[2021-12-17 06:00] VITALS: BP 119/59
[2021-12-17] MEDS: LEVOTHYROXINE 112MCG TABLET (0.112MG) PO SCH (06:51)
[2021-12-17 07:03] LABS: HEMATOCRIT 31.5 % (42.0-52.0); MEAN CORPUSCULAR HEMOGLOBIN 29.6 pg (27.0-33.0); MEAN CORPUSCULAR HGB CONC 31.7 g/dl (32.0-36.5); MEAN CORPUSCULAR VOLUME 93.2 fl (80.0-96.0); PLATELET COUNT, AUTOMATED 364 10^3/uL (150-450); RED BLOOD COUNT 3.38 10^6/uL (4.30-6.10); WHITE BLOOD COUNT 12.3 10^3/uL (4.0-10.0)
[2021-12-17 07:40] LABS: ALBUMIN 2.8 GM/DL (3.2-5.2); ALT/SGPT 13 U/L (12-78); BILIRUBIN,TOTAL 0.3 MG/DL (0.2-1.0); BLOOD UREA NITROGEN 24 MG/DL (7-18); CALCIUM LEVEL 8.6 MG/DL (8.8-10.2); CARBON DIOXIDE LEVEL 35 MEQ/L (21-32); CHLORIDE LEVEL 100 MEQ/L (98-107); CREATININE FOR GFR 1.15 MG/DL (0.70-1.30); GLOMERULAR FILTRATION RATE > 60.0 (>42); GLUCOSE, FASTING 123 MG/DL (70-100); MAGNESIUM LEVEL 2.3 MG/DL (1.8-2.4); POTASSIUM SERUM 3.9 MEQ/L (3.5-5.1); SODIUM LEVEL 138 MEQ/L (136-145)
[2021-12-17] MEDS: PANTOPRAZOLE 40MG TAB (PROTONIX) PO SCH (08:16)
[2021-12-17] MEDS: FINASTERIDE 5MG TAB PO SCH (08:16)
[2021-12-17] MEDS: ASPIRIN 81MG ENTERIC TABLET PO SCH (08:16)
[2021-12-17] MEDS: HEPARIN SOD (PORCINE) 5000UNITS/ML 1ML VIAL/SYRINGE SC SCH ×2 (08:16→19:58)
[2021-12-17] MEDS: TORSEMIDE 20 MG TAB PO SCH ×2 (08:17→19:58)
[2021-12-17] MEDS: DIMETHICONE 2% OINTMENT(VANICREAM) 70GM TUBE TOP SCH ×2 (08:17→19:59)
[2021-12-17] MEDS: AMIODARONE 200 MG TAB (PACERONE) PO SCH (08:17)
[2021-12-17 08:37] VITALS: O2SAT 94
[2021-12-17] MEDS: ADVAIR HFA 230/21MCG INHALER INH SCH ×2 (08:37→19:54)
[2021-12-17] MEDS: TIOTROPIUM INHALER/CAPSULE (SPIRIVA) INH SCH (08:38)
[2021-12-17] MEDS: predniSONE 10 MG TAB PO SCH (12:44)
[2021-12-17 14:00] VITALS: BP 118/59
[2021-12-17] MEDS: ATORVASTATIN 20 MG TAB PO SCH (19:58)
[2021-12-17] MEDS: SPIRONOLACTONE 25 MG TAB PO SCH (19:58)
[2021-12-17] MEDS: VANCOMYCIN HCL 1,000 MG, VIAL MATE ADAPTER 1 EACH in D5W 250 ML IV SCH (19:58)
[2021-12-17 22:00] VITALS: BP 116/58
[2021-12-18] MEDS: PIPERACILLIN/TAZOBACTAM SOD 4.5 GM in D5W MINI-BAG PLUS 50 ML IV SCH ×4 (00:55→12:46)
[2021-12-18] MEDS: IPRATROPIUM 0.5MG/ALBUTEROL 2.5MG INH SOL UD 3ML (DUONEB) NEB SCH ×4 (04:00→14:26)
[2021-12-18] MEDS: LEVOTHYROXINE 112MCG TABLET (0.112MG) PO SCH (05:34)
[2021-12-18 06:00] VITALS: BP 132/71
[2021-12-18 06:41] LABS: HEMATOCRIT 34.2 % (42.0-52.0); HEMOGLOBIN 10.6 g/dl (13.5-17.5); MEAN CORPUSCULAR HEMOGLOBIN 28.8 pg (27.0-33.0); MEAN CORPUSCULAR VOLUME 92.9 fl (80.0-96.0); PLATELET COUNT, AUTOMATED 374 10^3/uL (150-450); RED BLOOD COUNT 3.68 10^6/uL (4.30-6.10); WHITE BLOOD COUNT 14.7 10^3/uL (4.0-10.0)
[2021-12-18 07:23] LABS: ALBUMIN 2.9 GM/DL (3.2-5.2); BILIRUBIN,TOTAL 0.2 MG/DL (0.2-1.0); CALCIUM LEVEL 8.3 MG/DL (8.8-10.2); CREATININE FOR GFR 1.3 MG/DL (0.70-1.30); GLOMERULAR FILTRATION RATE 56.8 (>42); MAGNESIUM LEVEL 2.1 MG/DL (1.8-2.4); POTASSIUM SERUM 3.7 MEQ/L (3.5-5.1); TOTAL PROTEIN 6.2 GM/DL (6.4-8.2)
[2021-12-18] MEDS: TIOTROPIUM INHALER/CAPSULE (SPIRIVA) INH SCH (08:01)
[2021-12-18] MEDS: ADVAIR HFA 230/21MCG INHALER INH SCH (08:01)
[2021-12-18] MEDS: FINASTERIDE 5MG TAB PO SCH (09:12)
[2021-12-18] MEDS: HEPARIN SOD (PORCINE) 5000UNITS/ML 1ML VIAL/SYRINGE SC SCH (09:12)
[2021-12-18] MEDS: ASPIRIN 81MG ENTERIC TABLET PO SCH (09:12)
[2021-12-18] MEDS: TORSEMIDE 20 MG TAB PO SCH (09:13)
[2021-12-18] MEDS: AMIODARONE 200 MG TAB (PACERONE) PO SCH (09:13)
[2021-12-18] MEDS: PANTOPRAZOLE 40MG TAB (PROTONIX) PO SCH (09:13)
[2021-12-18] MEDS: DIMETHICONE 2% OINTMENT(VANICREAM) 70GM TUBE TOP SCH (09:15)
[2021-12-18] MEDS ORDERED: PRED10TA2 PO (11:34)
[2021-12-18] MEDS ORDERED: SPIR1CAP INH (11:34)
[2021-12-18] MEDS ORDERED: PROAAER10 INH (11:34)
[2021-12-18] MEDS ORDERED: AMOX875T2 PO (11:41)
[2021-12-18] MEDS: predniSONE 10 MG TAB PO SCH (12:00)
[2021-12-18 14:00] VITALS: BP 111/58
== END 2021-12-18 17:08 | disposition home health service (06) | DRG 190 ==
LOC: M ED 10:53 → EDBD 10:53 → M ED INP 15:54 → ENRESERV 17:38 → CANRESERV 17:50 → ENRESERV 17:50 → M MSPAV 20:03
PROVIDERS: ADMIT Family Medicine; ATTEND Family Medicine
DX: J44.1 Chronic obstructive pulmonary disease with (acute) exacerbation (principal); J18.9 Pneumonia, unspecified organism; I50.32 Chronic diastolic (congestive) heart failure; L03.90 Cellulitis, unspecified; J44.0 Chronic obstructive pulmonary disease with (acute) lower respiratory infection; I25.10 Atherosclerotic heart disease of native coronary artery without angina pectoris; I11.0 Hypertensive heart disease with heart failure; I27.81 Cor pulmonale (chronic); E78.5 Hyperlipidemia, unspecified; N40.0 Benign prostatic hyperplasia without lower urinary tract symptoms; I87.2 Venous insufficiency (chronic) (peripheral); E03.9 Hypothyroidism, unspecified; F17.210 Nicotine dependence, cigarettes, uncomplicated; R91.8 Other nonspecific abnormal finding of lung field; Z66 Do not resuscitate; Z79.82 Long term (current) use of aspirin; Z79.890 Hormone replacement therapy; Z79.899 Other long term (current) drug therapy; Z88.2 Allergy status to sulfonamides; Z91.040 Latex allergy status; Z91.013 Allergy to seafood

== ENCOUNTER 2022-02-25 15:17 | Inpatient (IN) | payer MEDICARE, MEDICAID ==
[~2022-02-25] VITALS: Ht 160 cm; Wt 60.8 kg
[~2022-02-25 15:17] MED LIST changes: +ALEN70TA87 PO; +AMOX875T2 PO; -DOXY-350 PO; +DOXY-444 PO; -FOSA70TA PO; +SYNT112T2 PO
[2022-02-25] MEDS ORDERED: ALBUTEROL SULFATE 2.5 MG/0.5 ML INH NEB SOLN INH ONE (15:30)
[2022-02-25] MEDS ORDERED: methylPREDNISolone 125MG 2ML VIAL IV ONE (15:30)
[2022-02-25] MEDS ORDERED: IPRATROPIUM 0.5MG/ALBUTEROL 2.5MG INH SOL UD 3ML (DUONEB) NEB ONE (15:30)
[2022-02-25 16:52] LABS: BASO % 0.1 % (0.0-1.0); HEMATOCRIT 36.2 % (42.0-52.0); HEMOGLOBIN 11.3 g/dl (13.5-17.5); LYMPH # 0.2 10^3/uL (1.5-5.0); LYMPH % 1.9 % (24.0-44.0); MEAN CORPUSCULAR HEMOGLOBIN 27.6 pg (27.0-33.0); MEAN CORPUSCULAR HGB CONC 31.2 g/dl (32.0-36.5); MEAN CORPUSCULAR VOLUME 88.3 fl (80.0-96.0); MONO # 1.5 10^3/uL (0.0-0.8); MONO % 17.1 % (2.0-8.0); NEUTROPHILS # 7.1 10^3/uL (1.5-8.5); NEUTROPHILS % 80.1 % (36.0-66.0); PLATELET COUNT, AUTOMATED 327 10^3/uL (150-450); WHITE BLOOD COUNT 8.9 10^3/uL (4.0-10.0)
[2022-02-25 17:35] LABS: ALBUMIN 2.5 GM/DL (3.2-5.2); BILIRUBIN,DIRECT 0.4 MG/DL (0.0-0.2); BILIRUBIN,TOTAL 0.5 MG/DL (0.2-1.0); CALCIUM LEVEL 8.8 MG/DL (8.8-10.2); CREATININE FOR GFR 1.95 MG/DL (0.70-1.30); FREE T4 1.84 NG/DL (0.76-1.46); GLOMERULAR FILTRATION RATE 35.5 (>42); POTASSIUM SERUM 4.2 MEQ/L (3.5-5.1); THYROID STIMULATING HORMONE 0.462 uIU/ML (0.358-3.740); TOTAL PROTEIN 6.9 GM/DL (6.4-8.2)
[2022-02-25 17:35] LABS: MB/CK RELATIVE INDEX 2.16 (< OR =4)
[2022-02-25] MEDS ORDERED: DEXTROSE 50% 50 ML SYRINGE IV STA (18:12)
[2022-02-25 18:15] LABS: CK-MB VALUE MASS 8.3 NG/ML (<3.6); MB/CK RELATIVE INDEX 2.2 (< OR =4)
[2022-02-25 18:36] LABS: ABG BASE EXCESS -1.6 (-2.0-2.0); ABG HCO3 26.2 MEQ/L (22.0-26.0); ABG O2 SATURATION 88.4 % (95.0-99.0); ABG PARTIAL PRESSURE CO2 59.7 mmHg (35.0-45.0); ABG PARTIAL PRESSURE O2 55.8 mmHg (75.0-100.0); ABG TOTAL CO2 28.1 MEQ/L (23.0-31.0); ABG pH (ARTERIAL) 7.261 UNITS (7.350-7.450)
[2022-02-25] MEDS ORDERED: SPIR1CAP INH (19:37)
[2022-02-25] MEDS ORDERED: ACET250T2 PO (19:37)
[2022-02-25] MEDS ORDERED: ALBU8.5H INH (19:37)
[2022-02-25] MEDS ORDERED: POTA-151 PO (19:37)
[2022-02-25] MEDS ORDERED: SUCR1TAB56 PO (19:38)
[2022-02-25] MEDS ORDERED: MED REC COMMENT (19:39)
[2022-02-25] MEDS ORDERED: HOME MED LIST COMPLETE! XX SCH (19:40)
[2022-02-25] MEDS ORDERED: UNRESOLVED CLARIFICATION ENTRY XX STA (19:55)
[2022-02-25] MEDS ORDERED: LevoFLOXacin IV 500 MG in IV 1 EA IV ONE (21:00)
[2022-02-25 21:59] VITALS: BP 117/83
[2022-02-25 22:03] VITALS: BP 110/59
[2022-02-25] MEDS: methylPREDNISolone 125MG 2ML VIAL IV SCH (22:28)
[2022-02-25] MEDS: HEPARIN SOD (PORCINE) 5000UNITS/ML 1ML VIAL/SYRINGE SC SCH (22:29)
[2022-02-25] MEDS: PERCOCET 5MG/325MG TAB PO PRN (22:29)
[2022-02-25 23:00] VITALS: BP 108/58
[2022-02-25] MEDS: IPRATROPIUM 0.5MG/ALBUTEROL 2.5MG INH SOL UD 3ML (DUONEB) NEB SCH (23:15)
[2022-02-26] VITALS (10 sets, daily range): BP systolic 92–136; BP diastolic 52–77; O2SAT 94
[2022-02-26] MEDS: HEPARIN SOD (PORCINE) 5000UNITS/ML 1ML VIAL/SYRINGE SC SCH (05:51)
[2022-02-26] MEDS: methylPREDNISolone 125MG 2ML VIAL IV SCH (05:51)
[2022-02-26] MEDS: PERCOCET 5MG/325MG TAB PO PRN (05:52)
[2022-02-26 06:00] LABS: ABG BASE EXCESS -2.2 (-2.0-2.0); ABG HCO3 25.6 MEQ/L (22.0-26.0); ABG O2 SATURATION 97.6 % (95.0-99.0); ABG PARTIAL PRESSURE CO2 58.4 mmHg (35.0-45.0); ABG PARTIAL PRESSURE O2 111.6 mmHg (75.0-100.0); ABG STANDARD HCO3 22.7 MEQ/L (22.0-26.0); ABG TOTAL CO2 27.4 MEQ/L (23.0-31.0); ABG pH (ARTERIAL) 7.259 UNITS (7.350-7.450)
[2022-02-26] MEDS ORDERED: LEVOTHYROXINE 112MCG TABLET (0.112MG) PO SCH (06:00)
[2022-02-26] MEDS: IPRATROPIUM 0.5MG/ALBUTEROL 2.5MG INH SOL UD 3ML (DUONEB) NEB SCH ×4 (08:02→20:00)
[2022-02-26] MEDS ORDERED: PANTOPRAZOLE 40MG VIAL IV SCH (09:00)
[2022-02-26] MEDS ORDERED: SCOPOLAMINE 1MG TRANSDERMAL PATCH TOP PRN (09:25)
[2022-02-26] MEDS ORDERED: MORPHINE 2 MG/ML 1ML VIAL IV PRN (09:25)
[2022-02-26] MEDS ORDERED: FLEET ENEMA PR PRN (09:25)
[2022-02-26] MEDS ORDERED: ATROPINE SULFATE 1% OP SOLN 2 ML BTL SL PRN (09:25)
[2022-02-26] MEDS ORDERED: HYOSCYAMINE SULFATE 0.125 MG SUBL TABLET PO PRN (09:25)
[2022-02-26] MEDS ORDERED: ACETAMINOPHEN TAB 650MG DOSE (2X325MG) PO PRN (09:25)
[2022-02-26] MEDS ORDERED: ONDANSETRON 4MG 2ML VIAL IV PRN (09:25)
[2022-02-26] MEDS: LORazepam 2 MG/ML VIAL IV PRN ×2 (15:18→21:51)
[2022-02-26] MEDS ORDERED: LevoFLOXacin IV 500 MG in IV 1 EA IV SCH (21:00)
[2022-02-26] MEDS ORDERED: LevoFLOXacin IV 250 MG in IV 1 EA IV SCH (22:00)
[2022-02-27] MEDS: IPRATROPIUM 0.5MG/ALBUTEROL 2.5MG INH SOL UD 3ML (DUONEB) NEB SCH ×3 (07:26→16:00)
== END 2022-02-27 19:49 | disposition expired | DRG 190 ==
LOC: EDSEX 15:17 → M ED 15:17 → EDBD 15:17 → ENRESERV 18:54 → M ED INP 19:22 → ENRESERV 20:10 → M ICU 21:51 → M MSPAV 02-26 18:21
PROVIDERS: ADMIT Internal Medicine Pulmonary Disease; ATTEND Family Medicine
DX: J44.1 Chronic obstructive pulmonary disease with (acute) exacerbation (principal); J96.22 Acute and chronic respiratory failure with hypercapnia; J96.21 Acute and chronic respiratory failure with hypoxia; G93.41 Metabolic encephalopathy; N17.9 Acute kidney failure, unspecified; C34.90 Malignant neoplasm of unspecified part of unspecified bronchus or lung; R64 Cachexia; I25.5 Ischemic cardiomyopathy; K21.9 Gastro-esophageal reflux disease without esophagitis; M54.9 Dorsalgia, unspecified; N40.0 Benign prostatic hyperplasia without lower urinary tract symptoms; E78.5 Hyperlipidemia, unspecified; Z51.5 Encounter for palliative care; Z66 Do not resuscitate; F17.200 Nicotine dependence, unspecified, uncomplicated; H91.90 Unspecified hearing loss, unspecified ear; E03.9 Hypothyroidism, unspecified; K57.90 Diverticulosis of intestine, part unspecified, without perforation or abscess without bleeding; E86.0 Dehydration; I50.9 Heart failure, unspecified; R41.82 Altered mental status, unspecified; G89.29 Other chronic pain; Z87.442 Personal history of urinary calculi; Z95.810 Presence of automatic (implantable) cardiac defibrillator; Z79.82 Long term (current) use of aspirin; Z79.899 Other long term (current) drug therapy; Z88.2 Allergy status to sulfonamides; Z91.013 Allergy to seafood; Z79.890 Hormone replacement therapy